=== PATIENT | female | born 1950 | race Caucasian/White ===

== ENCOUNTER 2020-06-15 13:41 | Inpatient (IN) | payer MEDICARE, MEDICAID, SELFPAY ==
[2020-06-15] VITALS (15 sets, daily range): BP systolic 145–185; BP diastolic 43–111; PULSE 75–114; RESP 12–22; TEMP 36.2–37.1; O2SAT 88–98; BMI 43.9
--- NOTE | 2020-06-15 13:54 | ECG_ITS ---
Test Reason : ALTERED MENTAL Blood Pressure : / mmHG Vent. Rate : 082 BPM Atrial Rate : 082 BPM P-R Int : 186 ms QRS Dur : 100 ms QT Int : 408 ms P-R-T Axes : 025 -06 100 degrees QTc Int : 476 ms Sinus rhythm with Premature atrial complexes Left ventricular hypertrophy with repolarization abnormality Cannot rule out Septal infarct , age undetermined Abnormal ECG No significant changes when compared with the previous EKG of 06 sep 2019 Referred By: Eden Castro Electronically Signed By:STANLEY HUMPHREYS
--- NOTE | 2020-06-15 13:55 | XR_ITS ---
EXAMINATION: CT HEAD WITHOUT CONTRAST. CHEST X-RAY. CLINICAL INFORMATION: Weakness. COMPARISON: None TECHNIQUE: 5 mm thin axial and reformatted 2 mm thin sagittal and coronal images of brain were obtained [facility]. Chest one view. FINDINGS: BRAIN: There is no acute intra-axial, extra-axial bleed, masses or midline shift. No acute infarct in evolution seen. [place] to white matter difference maintained. The lateral ventricles are symmetrical in size and configuration without enlargement. There is mild prominence of cortical sulci. Bone windows reveal no calvarial abnormality. Bilateral paranasal sinuses and mastoid air cells are well-aerated. There is no scalp abnormality. There is metallic radiopaque foreign body seen along left anterior optic globe. Question artificial lens versus foreign body. CHEST X-RAY: The lungs are well-expanded and clear of acute pneumonic consolidation. However there is increased interstitial markings that no confluent infiltrate. Heart size and pulmonary vascularity are unremarkable. No gross bony abnormality seen. XR/XR chest 1V IMPRESSION: No acute intracranial process seen. No acute cardiopulmonary process.
--- NOTE | 2020-06-15 14:05 | ED_ITS ---
HPI - Weakness General Chief complaint: Weakness Stated complaint: AMS,LETHARGY,LAST KNOWN WELL LAST NIGHT Time Seen by Provider: 06/15/20 13:54 Source: EMS Mode of arrival: EMS Limitations: no limitations History of Present Illness HPI Narrative: 69-year-old female with a past medical history of diabetes, hypertension, chronic Molina and UTIs, asthma, COPD, obesity, osteoarthritis, congestive heart failure here with complaints of generalized weakness, lethargy, nausea, headache. Patient was only able to provide a limited history and most of the history was obtained by the EMS team. They tell me that the patient's [employer] called them this morning as she was generally weak, lethargic from baseline. She was last seen normal yesterday where she seemed more alert and was able to be transferred from her bed to her wheelchair. She has wheelchair- bound at baseline. MD Complaint: generalized weakness Onset (ago): day(s) Duration: constant Location: generalized Migration: none Severity: mild Relieving factors: none Exacerbating factors: none Related Data Home Medications Medication Instructions Recorded Confirmed albuterol sulfate [ProAir HFA] 1 - 2 puff PO Q4-6H PRN 06/15/20 06/15/20 aspirin 1 tab PO DAILY 06/15/20 06/15/20 docusate sodium 1 - 2 cap PO BID PRN 06/15/20 06/15/20 fluticasone propionate [Flovent 2 puff PO BID 06/15/20 06/15/20 Diskus] furosemide 1 tab PO BID 06/15/20 06/15/20 insulin glargine [Lantus Solostar 80 unit SUBCUT DAILY 06/15/20 06/15/20 U-100 Insulin] insulin lispro [Humalog KwikPen 0 unit SUBCUT TIDAC 06/15/20 06/15/20 Insulin] ipratropium-albuterol 1 vial INHALATION Q4-6H PRN 06/15/20 06/15/20 lisinopril 1 tab PO DAILY 06/15/20 06/15/20 loratadine 1 tab PO DAILY 06/15/20 06/15/20 metoprolol tartrate 1 tab PO BID 06/15/20 06/15/20 nystatin 1 appl TOPICAL BID PRN 06/15/20 06/15/20 simvastatin 1 tab PO BEDTIME 06/15/20 06/15/20 Allergies Allergy/AdvReac Type Severity Reaction Status Date / Time silver sulfadiazine Allergy Unknown UNK Unverified 03/26/20 16:27 [From TRINY] Review of Systems Review of Systems: limited as patient answers yes to every question Yes all other systems are reviewed and are negative Constitutional: Constitutional: Reports no additional constitutional complaints, Reports body ache(s), Denies chills, Denies fever(s), Reports headache(s) and Reports weakness Eyes: Eyes: Reports no additional eye complaints and Denies change in vision ENT: Reports system reviewed and no additional complaints, except as documented, Denies dizziness, Reports headache(s), Denies nasal congestion, Denies nasal discharge and Denies neck pain Cardiovascular: Cardiovascular: Reports no additional cardiovascular complaints, Denies chest pain, Denies leg edema and Reports dyspnea Respiratory: Respiratory: Reports no additional respiratory complaints, Reports cough and Reports dyspnea Gastrointestinal: Gastrointestinal: Reports no additional gastrointestinal complaints, Denies abdominal pain, Denies diarrhea, Denies nausea and Denies vomiting Genitourinary: Genitourinary: Reports no additional female genitourinary complaints and Denies urinary incontinence Musculoskeletal: Musculoskeletal: Reports no additional musculoskeletal complaints, Denies back pain, Denies arthralgias, Denies joint swelling, Denies neck pain, Denies numbness and Denies tingling Integumentary/Breasts: Skin/Breast: Reports system reviewed and no additional complaints, except as docu and Denies rash Neurologic: Reports system reviewed and no additional complaints, except as documented, Denies Abnormal speech present, Denies dizziness, Reports headache(s), Denies numbness, Denies tingling and Reports weakness [facility] Past Medical History Attestation statement: The following information was validated with the patient. Source: old records reviewed and nursing notes reviewed Medical History (Updated 06/15/20 @ 17:08 by Angelita Jacobson NP) Chronic indwelling Molina catheter Chronic UTI Congestive heart failure COPD (chronic obstructive pulmonary disease) Diabetes Glaucoma Hypertension Obesity Osteoarthritis Severe sepsis Surgical History (Updated 06/15/20 @ 17:08 by Angelita Jacobson NP) H/O adenoidectomy H/O enucleation of left eyeball History of tonsillectomy Social History Social History Alcohol intake: unknown Smoking Status: Unknown if ever smoked Use of substances other than those prescribed or required for medical reasons: Refusing to respond Advance Directives: No Advance Directives Information Provided: Yes Physical Exam Vital Signs: Vital Signs: Last Vital Signs Temp 98.8 F 06/15/20 14:05 Pulse 83 06/15/20 18:05 Resp 16 06/15/20 18:05 BP 175/43 H 06/15/20 18:05 Pulse Ox 98 06/15/20 18:05 Body Mass Index 43.9 Const: Other: Anxious, uncooperative, ripping off medical equipment and oxygen. Orientation/consciousness: oriented to person Limitations: altered mental status HENMT: Head: Yes normal to inspection Ears: hearing grossly normal bilaterally General nose exam: Normal external nose present Face and sinus: Yes normal facial exam Mouth: Normal oral and palatal mucosa present Throat: Yes posterior oropharynx normal Eyes: General: appearance normal, both eyes and all related structures Pupils: Equal, round and reactive pupils present Neck: Neck: Yes normal visual inspection Chest: Chest palpation & inspection: normal inspection of the chest Resp: Other: Mild expiratory wheezing noted Effort & Inspection: normal respiratory effort Cardio: Rate: regular rate Rhythm: regular rhythm Peripheral pulses: Peripheral pulses 2+ throughout GI: Inspection: Yes normal to inspection Palpation (GI): Soft to palpation and nontender Auscultation: normal bowel sounds Back/Spine/Pelvis: Thoracic/Lumbar Spine: thoracic and lumbar spine normal to inspection Skin: General skin exam: no rashes or lesions noted Neuro: Other: patient crying, agitated, anxious, screaming at the top of her lungs, removing all medical equipment General: oriented to person, no focal motor deficits and normal sensation to monofilament Cranial nerves: Yes Equal, round and reactive pupils present Cognition (Neuro): normal cognition Speech: No Abnormal speech present Gait exam (Neuro): Normal gait present Motor exam (neuro): 5/5 motor strength present throughout Extrem: General: Yes normal to inspection Course Course Course Narrative: 69-year-old female who is wheelchair-bound coming from home with altered mental status, generalized weakness, lethargy, complains of nausea and headache. On arrival the patient is alert although is anxious and agitated and crying. She is oriented to self only. She is able to follow some simple commands and has equal strength noted bilaterally. I do not appreciate any focal weakness. She is hypoxic 88% on room air and has some expiratory wheezing and fine crackles. She will need labs including blood cultures and lactic acid, EKG, chest x-ray, UA, COVID testing, CT head. 1420-Unfortunately the patient was removing her IV and her oxygen and all medical equipment. She is unable to be redirected after multiple times by nursing. confused and not willing for nursing to get labs and additional testing. Patient was given Haldol IM. Plan for CT head, ABG. 1457- UA shows a UTI. At this time infection is suspected. Antibiotics ordered 1530- patient was transported to CT by nursing with cardiac/oxygen monitoring and received 50 mcg of ketamine for sedation as she has been not redirectable very agitated and uncooperative. 1605- CT head negative. Chest x-ray unremarkable. ABG shows no significant hypercarbia. Altered mental status likely secondary to encephalopathy from UTI or hypoxia from COPD exacerbation. Labs show a UTI with leukocytosis and elevated lactic acid 2.8. Antibiotics have already been given. hypoxia likely from COPD exacerbation, less likely from pneumonia with negative chest x-ray, less likely from COVID-19 infection with negative swab. Patient will need admission for UTI, hypoxia, metabolic encelopathy. 1620- discussed with Angelita CLAYTON who accepted admission. MDM - Weakness MDM Narrative Medical decision making narrative: ICH versus lesion, encephalopathy secondary to underlying infection, UTI, pneumonia, COVID-19, viral syndrome, anemia, electrolyte abnormality, CHF exacerbation, ACS Medical Records Attestation: I reviewed the patient's medical records. Lab Data Attestation: I reviewed the patient's lab results. Result diagrams: 06/15/20 14:39 06/15/20 14:18 Labs: Lab Results 06/15/20 06/15/20 06/15/20 Range/Units 14:18 14:18 14:18 WBC (4.8-10.8) X10*3/uL RBC (4.20-5.50) X10*6/uL Hgb (12.0-16.0) g/dl Hct (37-47) % MCV (80-98) fL MCH (27.0-33.0) pg MCHC (31.0-35.0) g/dl RDW (11.0-16.0) % Plt Count (160-400) X10*3/uL MPV (9.4-12.3) fL Immature Gran % (Auto) (0.0-0.4) % Neut % (Auto) (45-73) % Lymph % (Auto) (20-40) % [place] % (Auto) (2-11) % Eos % (Auto) (0-4) % Baso % (Auto) (0-2) % Lymph # (Auto) (1.2-4.9) X10*3/uL [place] # (Auto) (0.1-1.2) X10*3/uL Eos # (Auto) (0.0-0.4) X10*3/uL Baso # (Auto) (0.0-0.2) X10*3/uL Abs Immat Gran (auto) (0.00-0.03) X10*3/uL Absolute Neuts (auto) (2.0-8.3) X10*3/uL Absolute Nucleated RBC (0.0-0.012) X10*3/uL Nucleated RBC % (auto) (0.0-0.2) /100WBC PT Cancelled INR Cancelled ABG pH (7.35-7.45) ABG pCO2 (32-45) mmhg ABG pO2 (83-108) mmhg ABG HCO3 (22-26) mmol/l ABG O2 Saturation % ABG Base Excess Oxygen Given Sodium 136 (135-145) mmol/L Potassium 3.8 (3.3-5.1) mmol/l Chloride 91 L (96-108) mmol/L Carbon Dioxide 34 H (22-29) mmol/L Anion Gap 15 (12-20) BUN 11 (9-16) mg/dL Creatinine 0.60 (0.5-1.4) mg/dL Estim Creat Clear Calc 104.3 Estimated GFR > 60 Random Glucose 206 H (60-115) mg/dL Lactic Acid (0.5-2.0) mmol/L Calcium 9.3 (8.4-10.2) mg/dL Magnesium 1.5 L (1.6-2.6) mg/dL Ferritin 165 (10-250) ng/mL Total Bilirubin 0.6 (0.0-1.0) mg/dL Direct Bilirubin 0.3 (0.0-0.5) mg/dL AST 13 (5-31) U/L ALT 26 (0-31) U/L Alkaline Phosphatase 105 (39-117) U/L Lactate Dehydrogenase 150 (122-220) U/L Troponin I High Sens (<3.5-17.0) ng/L B-Natriuretic Peptide (<100) pg/mL Total Protein 7.1 (6.5-8.0) g/dL Albumin 4.1 (3.5-5.0) g/dL Procalcitonin ng/mL Urine Color Urine Appearance Urine pH (5.0-8.0) Ur Specific [place] (1.005-1.025) Urine Protein (NEG-TRACE) MG/DL Urine Glucose (UA) (NEG) MG/DL Urine Ketones (NEG) MG/DL Urine Blood (NEG) Urine Nitrite (NEG) Ur Leukocyte Esterase (NEG) Urine RBC (0) /HPF Urine WBC (0-4) /HPF Ur Squamous Epith Cells /LPF Urine Bacteria /LPF Coronavirus (PCR) (Negative) Influenza Type A (PCR) (Negative) Influenza Type B (PCR) (Negative) RSV RNA Qual (PCR) (Negative) 06/15/20 06/15/20 06/15/20 Range/Units 14:18 14:18 14:39 WBC 13.0 H (4.8-10.8) X10*3/uL RBC 5.45 (4.20-5.50) X10*6/uL Hgb 16.1 H (12.0-16.0) g/dl Hct 49.4 H (37-47) % MCV 90.6 (80-98) fL MCH 29.5 (27.0-33.0) pg MCHC 32.6 (31.0-35.0) g/dl RDW 13.9 (11.0-16.0) % Plt Count 221 (160-400) X10*3/uL MPV 11.3 (9.4-12.3) fL Immature Gran % (Auto) 0.4 (0.0-0.4) % Neut % (Auto) 78.4 H (45-73) % Lymph % (Auto) 15.1 L (20-40) % [place] % (Auto) 5.3 (2-11) % Eos % (Auto) 0.6 (0-4) % Baso % (Auto) 0.2 (0-2) % Lymph # (Auto) 2.0 (1.2-4.9) X10*3/uL [place] # (Auto) 0.7 (0.1-1.2) X10*3/uL Eos # (Auto) 0.1 (0.0-0.4) X10*3/uL Baso # (Auto) 0.0 (0.0-0.2) X10*3/uL Abs Immat Gran (auto) 0.05 H (0.00-0.03) X10*3/uL Absolute Neuts (auto) 10.2 H (2.0-8.3) X10*3/uL Absolute Nucleated RBC 0.000 (0.0-0.012) X10*3/uL Nucleated RBC % (auto) 0.0 (0.0-0.2) /100WBC PT INR ABG pH (7.35-7.45) ABG pCO2 (32-45) mmhg ABG pO2 (83-108) mmhg ABG HCO3 (22-26) mmol/l ABG O2 Saturation % ABG Base Excess Oxygen Given Sodium (135-145) mmol/L Potassium (3.3-5.1) mmol/l Chloride (96-108) mmol/L Carbon Dioxide (22-29) mmol/L Anion Gap (12-20) BUN (9-16) mg/dL Creatinine (0.5-1.4) mg/dL Estim Creat Clear Calc Estimated GFR Random Glucose (60-115) mg/dL Lactic Acid (0.5-2.0) mmol/L Calcium (8.4-10.2) mg/dL Magnesium (1.6-2.6) mg/dL Ferritin (10-250) ng/mL Total Bilirubin (0.0-1.0) mg/dL Direct Bilirubin (0.0-0.5) mg/dL AST (5-31) U/L ALT (0-31) U/L Alkaline Phosphatase (39-117) U/L Lactate Dehydrogenase (122-220) U/L Troponin I High Sens (<3.5-17.0) ng/L B-Natriuretic Peptide (<100) pg/mL Total Protein (6.5-8.0) g/dL Albumin (3.5-5.0) g/dL Procalcitonin < 0.02 ng/mL Urine Color YELLOW Urine Appearance CLOUDY Urine pH 7.0 (5.0-8.0) Ur Specific [place] 1.020 (1.005-1.025) Urine Protein 1+ H (NEG-TRACE) MG/DL Urine Glucose (UA) NEG (NEG) MG/DL Urine Ketones NEG (NEG) MG/DL Urine Blood 3+ H (NEG) Urine Nitrite POS H (NEG) Ur Leukocyte Esterase 3+ H (NEG) Urine RBC 5-9 H (0) /HPF Urine WBC 50-75 H (0-4) /HPF Ur Squamous Epith Cells 2+ /LPF Urine Bacteria 4+ /LPF Coronavirus (PCR) (Negative) Influenza Type A (PCR) (Negative) Influenza Type B (PCR) (Negative) RSV RNA Qual (PCR) (Negative) 06/15/20 06/15/20 06/15/20 Range/Units 14:39 14:39 14:39 WBC (4.8-10.8) X10*3/uL RBC (4.20-5.50) X10*6/uL Hgb (12.0-16.0) g/dl Hct (37-47) % MCV (80-98) fL MCH (27.0-33.0) pg MCHC (31.0-35.0) g/dl RDW (11.0-16.0) % Plt Count (160-400) X10*3/uL MPV (9.4-12.3) fL Immature Gran % (Auto) (0.0-0.4) % Neut % (Auto) (45-73) % Lymph % (Auto) (20-40) % [place] % (Auto) (2-11) % Eos % (Auto) (0-4) % Baso % (Auto) (0-2) % Lymph # (Auto) (1.2-4.9) X10*3/uL [place] # (Auto) (0.1-1.2) X10*3/uL Eos # (Auto) (0.0-0.4) X10*3/uL Baso # (Auto) (0.0-0.2) X10*3/uL Abs Immat Gran (auto) (0.00-0.03) X10*3/uL Absolute Neuts (auto) (2.0-8.3) X10*3/uL Absolute Nucleated RBC (0.0-0.012) X10*3/uL Nucleated RBC % (auto) (0.0-0.2) /100WBC PT INR ABG pH (7.35-7.45) ABG pCO2 (32-45) mmhg ABG pO2 (83-108) mmhg ABG HCO3 (22-26) mmol/l ABG O2 Saturation % ABG Base Excess Oxygen Given Sodium (135-145) mmol/L Potassium (3.3-5.1) mmol/l Chloride (96-108) mmol/L Carbon Dioxide (22-29) mmol/L Anion Gap (12-20) BUN (9-16) mg/dL Creatinine (0.5-1.4) mg/dL Estim Creat Clear Calc Estimated GFR Random Glucose (60-115) mg/dL Lactic Acid 2.5 H* (0.5-2.0) mmol/L Calcium (8.4-10.2) mg/dL Magnesium (1.6-2.6) mg/dL Ferritin (10-250) ng/mL Total Bilirubin (0.0-1.0) mg/dL Direct Bilirubin (0.0-0.5) mg/dL AST (5-31) U/L ALT (0-31) U/L Alkaline Phosphatase (39-117) U/L Lactate Dehydrogenase (122-220) U/L Troponin I High Sens 35.8 H (<3.5-17.0) ng/L B-Natriuretic Peptide 100 (<100) pg/mL Total Protein (6.5-8.0) g/dL Albumin (3.5-5.0) g/dL Procalcitonin ng/mL Urine Color Urine Appearance Urine pH (5.0-8.0) Ur Specific [place] (1.005-1.025) Urine Protein (NEG-TRACE) MG/DL Urine Glucose (UA) (NEG) MG/DL Urine Ketones (NEG) MG/DL Urine Blood (NEG) Urine Nitrite (NEG) Ur Leukocyte Esterase (NEG) Urine RBC (0) /HPF Urine WBC (0-4) /HPF Ur Squamous Epith Cells /LPF Urine Bacteria /LPF Coronavirus (PCR) (Negative) Influenza Type A (PCR) (Negative) Influenza Type B (PCR) (Negative) RSV RNA Qual (PCR) (Negative) 06/15/20 06/15/20 06/15/20 Range/Units 14:45 15:37 18:03 WBC (4.8-10.8) X10*3/uL RBC (4.20-5.50) X10*6/uL Hgb (12.0-16.0) g/dl Hct (37-47) % MCV (80-98) fL MCH (27.0-33.0) pg MCHC (31.0-35.0) g/dl RDW (11.0-16.0) % Plt Count (160-400) X10*3/uL MPV (9.4-12.3) fL Immature Gran % (Auto) (0.0-0.4) % Neut % (Auto) (45-73) % Lymph % (Auto) (20-40) % [place] % (Auto) (2-11) % Eos % (Auto) (0-4) % Baso % (Auto) (0-2) % Lymph # (Auto) (1.2-4.9) X10*3/uL [place] # (Auto) (0.1-1.2) X10*3/uL Eos # (Auto) (0.0-0.4) X10*3/uL Baso # (Auto) (0.0-0.2) X10*3/uL Abs Immat Gran (auto) (0.00-0.03) X10*3/uL Absolute Neuts (auto) (2.0-8.3) X10*3/uL Absolute Nucleated RBC (0.0-0.012) X10*3/uL Nucleated RBC % (auto) (0.0-0.2) /100WBC PT 14.7 H INR 1.2 H ABG pH 7.40 (7.35-7.45) ABG pCO2 54 H (32-45) mmhg ABG pO2 57 L (83-108) mmhg ABG HCO3 32 H (22-26) mmol/l ABG O2 Saturation 901.0 % ABG Base Excess 5.8 Oxygen Given ROOM AIR Sodium (135-145) mmol/L Potassium (3.3-5.1) mmol/l Chloride (96-108) mmol/L Carbon Dioxide (22-29) mmol/L Anion Gap (12-20) BUN (9-16) mg/dL Creatinine (0.5-1.4) mg/dL Estim Creat Clear Calc Estimated GFR Random Glucose (60-115) mg/dL Lactic Acid (0.5-2.0) mmol/L Calcium (8.4-10.2) mg/dL Magnesium (1.6-2.6) mg/dL Ferritin (10-250) ng/mL Total Bilirubin (0.0-1.0) mg/dL Direct Bilirubin (0.0-0.5) mg/dL AST (5-31) U/L ALT (0-31) U/L Alkaline Phosphatase (39-117) U/L Lactate Dehydrogenase (122-220) U/L Troponin I High Sens (<3.5-17.0) ng/L B-Natriuretic Peptide (<100) pg/mL Total Protein (6.5-8.0) g/dL Albumin (3.5-5.0) g/dL Procalcitonin ng/mL Urine Color Urine Appearance Urine pH (5.0-8.0) Ur Specific [place] (1.005-1.025) Urine Protein (NEG-TRACE) MG/DL Urine Glucose (UA) (NEG) MG/DL Urine Ketones (NEG) MG/DL Urine Blood (NEG) Urine Nitrite (NEG) Ur Leukocyte Esterase (NEG) Urine RBC (0) /HPF Urine WBC (0-4) /HPF Ur Squamous Epith Cells /LPF Urine Bacteria /LPF Coronavirus (PCR) NEGATIVE (Negative) Influenza Type A (PCR) NEGATIVE (Negative) Influenza Type B (PCR) NEGATIVE (Negative) RSV RNA Qual (PCR) NEGATIVE (Negative) Imaging Data Chest x-ray: Attestation: I personally reviewed and interpreted this imaging study as follows: Radiologist's impression: CHEST X-RAY: The lungs are well-expanded and clear of acute pneumonic consolidation. However there is increased interstitial markings that no confluent infiltrate. Heart size and pulmonary vascularity are unremarkable. No gross bony abnormality seen. No acute cardiopulmonary process. CT scan - head: Attestation: I personally reviewed and interpreted this imaging study as follows: Radiologist's impression: FINDINGS: BRAIN: There is no acute intra-axial, extra-axial bleed, masses or midline shift. No acute infarct in evolution seen. [place] to white matter difference maintained. The lateral ventricles are symmetrical in size and configuration without enlargement. There is mild prominence of cortical sulci. Bone windows reveal no calvarial abnormality. Bilateral paranasal sinuses and mastoid air cells are well-aerated. There is no scalp abnormality. There is metallic radiopaque foreign body seen along left anterior optic globe. Question artificial lens versus foreign body. No acute intracranial process seen. ECG Data Attestation: I personally reviewed and interpreted this ECG as follows: ECG interpretation date: 06/15/20 ECG interpretation time: 15:51 Interpretation: sinus rhythm with PACs, rate 82, normal IN, normal QRS, normal QT, normal st segment Critical Care Time Critical Care Time Critical Care Time: Yes Total Critical Care Time: 30 Attestation: Patient required sedation for imaging, multiple re-evaluations for mental status, Fluid management, antibiotic management Discharge Plan Discharge Clinical Impression: UTI (urinary tract infection), Leukocytosis, Hypomagnesemia, Elevated troponin, Hyperglycemia, AMS (altered mental status), Elevated lactic acid level Patient Disposition: Admitted As Inpatient
--- NOTE | 2020-06-15 14:19 | CT_ITS ---
EXAMINATION: CT HEAD WITHOUT CONTRAST. CHEST X-RAY. CLINICAL INFORMATION: Weakness. COMPARISON: None TECHNIQUE: 5 mm thin axial and reformatted 2 mm thin sagittal and coronal images of brain were obtained [facility] 854. Chest one view. FINDINGS: BRAIN: There is no acute intra-axial, extra-axial bleed, masses or midline shift. No acute infarct in evolution seen. [place] to white matter difference maintained. The lateral ventricles are symmetrical in size and configuration without enlargement. There is mild prominence of cortical sulci. Bone windows reveal no calvarial abnormality. Bilateral paranasal sinuses and mastoid air cells are well-aerated. There is no scalp abnormality. There is metallic radiopaque foreign body seen along left anterior optic globe. Question artificial lens versus foreign body. CHEST X-RAY: The lungs are well-expanded and clear of acute pneumonic consolidation. However there is increased interstitial markings that no confluent infiltrate. Heart size and pulmonary vascularity are unremarkable. No gross bony abnormality seen. CT/CT head/brain wo con IMPRESSION: No acute intracranial process seen. No acute cardiopulmonary process.
[2020-06-15] MEDS: Haloperidol Lactate 5 MG/ML VIAL IM (14:30)
[2020-06-15 14:31] LABS: Glucose Urine UA NEG (NEG); Leukocyte Esterase Urine 3+ (NEG); Nitrite Urine POS (NEG); Urine Blood 3+ (NEG); Urine Ketones NEG (NEG); Urine Protein 1+ MG/DL (NEG-TRACE)
[2020-06-15 14:32] LABS: Appearance Urine CLOUDY; Color Urine YELLOW
[2020-06-15 14:40] LABS: Bacteria Urine 4+ /LPF; Squamous Epithelial Cell Urine 2+ /LPF; WBC Urine 50-75 /HPF (0-4)
[2020-06-15 14:47] LABS: MANUAL DIFF FLAG NO
[2020-06-15 14:49] LABS: Basophils Percent Auto 0.2 % (0-2); Eosinophils Absolute Auto 0.1 X10*3/uL (0.0-0.4); Eosinophils Percent Auto 0.6 % (0-4); Hematocrit 49.4 % (37-47); Hemoglobin 16.1 g/dl (12.0-16.0); Imm Gran Abs Auto 0.05 X10*3/uL (0.00-0.03); Imm Gran Pct Auto 0.4 % (0.0-0.4); Lymphocytes Percent Auto 15.1 % (20-40); Mean Corpuscular HGB Conc 32.6 g/dl (31.0-35.0); Mean Corpuscular Hemoglobin 29.5 pg (27.0-33.0); Mean Corpuscular Volume 90.6 fL (80-98); Mean Platelet Volume 11.3 fL (9.4-12.3); Monocytes Absolute Auto 0.7 X10*3/uL (0.1-1.2); Monocytes Percent Auto 5.3 % (2-11); Neutrophils Absolute Auto 10.2 X10*3/uL (2.0-8.3); Neutrophils Percent Auto 78.4 % (45-73); Platelet Count 221 X10*3/uL (160-400); Red Blood Count 5.45 X10*6/uL (4.20-5.50); Red Cell Distribution Width 13.9 % (11.0-16.0)
[2020-06-15 15:02] LABS: Lactate Dehydrogenase 150 U/L (122-220)
[2020-06-15 15:05] LABS: Alanine Aminotransferase 26 U/L (0-31); Albumin Level 4.1 g/dL (3.5-5.0); Alkaline Phosphatase 105 U/L (39-117); Anion Gap 15 (12-20); Aspartate Amino Transferase 13 U/L (5-31); Bilirubin Direct 0.3 mg/dL (0.0-0.5); Bilirubin Total 0.6 mg/dL (0.0-1.0); Blood Urea Nitrogen 11 mg/dL (9-16); Calcium 9.3 mg/dL (8.4-10.2); Carbon Dioxide 34 mmol/L (22-29); Chloride 91 mmol/L (96-108); Creatinine Clr Calc Pharmacy 104.3; Estimated Glomerular Filt Rate > 60; Glucose Random 206 mg/dL (60-115); Magnesium 1.5 mg/dL (1.6-2.6); Potassium 3.8 mmol/l (3.3-5.1); Sodium 136 mmol/L (135-145); Total Protein 7.1 g/dL (6.5-8.0)
[2020-06-15] MEDS: cefTRIAXone sodium 1 GM in 0.9 % Sodium Chloride 50 ML IV (15:10)
[2020-06-15 15:22] LABS: Procalcitonin < 0.02 ng/mL
[2020-06-15 15:23] LABS: B Type Natriuretic Peptide 100 pg/mL (<100)
[2020-06-15 15:25] LABS: Ferritin 165 ng/mL (10-250)
[2020-06-15 15:27] LABS: Influenza A PCR NEGATIVE (Negative); Influenza B PCR NEGATIVE (Negative); Resp Syncy Virus RNA Qual PCR NEGATIVE (Negative); SARS COV2 PCR INHOUSE NEGATIVE (Negative)
[2020-06-15 15:28] LABS: Troponin-I High Sensitivity 35.8 ng/L (<3.5-17.0)
[2020-06-15 15:47] LABS: Pt Ventilation O2% ROOM AIR
[2020-06-15] MEDS: Ketamine HCl/NS 50 MG/5 ML SYRINGE IVPUSH (15:49)
[2020-06-15 15:50] LABS: ABG PCO2 54 mmhg (32-45); Base Excess ABG 5.8; HCO3 ABG 32 mmol/l (22-26); PO2 ABG 57 mmhg (83-108)
[2020-06-15 15:51] LABS: Blood Gas Serial # 5414
[2020-06-15] MEDS: Magnesium Sulfate/D5W 1 GM/100 ML PIGGYBACK IV (15:53)
--- NOTE | 2020-06-15 15:58 | PC.NURSE ---
Pt confused, pulling at 02 prompting sats to drop into the 80, and yelling Oh my god . She would not allow staff to obtain necessary blood work and vitals. ISRA Harmon made aware and wrote for chemical restraint (see documentation). Currently pt resting comfortably after successful CT scan, xray, and ekg. Will continue to monitor.
[2020-06-15 16:21] LABS: Lactic Acid 2.5 mmol/L (0.5-2.0)
[2020-06-15] MEDS: methylPREDNISolone Sod Succ/PF 125 MG/2 ML VIAL IVPUSH (16:35)
--- NOTE | 2020-06-15 16:56 | P.HPHOSP_ITS ---
History of Present Illness Date of Service: 06/15/20 <Angelita Jacobson NP - Last Filed: 06/15/20 17:24> Chief Complaint: Lethargy <Angelita Jacobson NP - Last Filed: 06/15/20 17:24> 69-year-old female with a past medical history of diabetes, hypertension, chronic Molina and UTIs, asthma, COPD, obesity, osteoarthritis, congestive heart failure presenting with generalized weakness, lethargy, nausea, headache. 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 She was lethargic during the interview due to being given ketamine and Haldol due to severe agitation including removal of her IV and oxygen apparently she was crying and seemed very anxious. She had no acute infarction or ischemia. Chest x-ray negative for consolidation or effusion. She was initially noted to be hypoxic with oxygen saturation of 88%. She was placed on 2 L of nasal cannula with good effect. She did have an elevated white blood cell count of 13.0, troponin 35.8 with no acute ischemic changes on EKG. Urinalysis was positive for infection, coronavirus PCR negative. She was given a dose of Rocephin in the ER. She will be admitted further management and treatment of severe sepsis secondary to urinary tract infection and acute metabolic encephalopathy. <Angelita Jacobson NP - Last Filed: 06/15/20 17:24> Review of Systems Review of Systems: Yes Unobtainable due to mental status <Angelita Jacobson NP - Last Filed: 06/15/20 17:24> Constitutional: Constitutional: Reports headache(s) and Reports weakness <Angelita Jacobson NP - Last Filed: 06/15/20 17:24> ENT: Denies dizziness and Reports headache(s) <Angelita Jacobson NP - Last Filed: 06/15/20 17:24> Musculoskeletal: Musculoskeletal: Denies numbness and Denies tingling <Angelita Jacboson NP - Last Filed: 06/15/20 17:24> Neurologic: Reports system reviewed and no additional complaints, except as documented, Denies Abnormal speech present, Denies dizziness, Reports headache(s), Denies numbness, Denies tingling and Reports weakness <ISRA Asif Last Filed: 06/15/20 17:24> [facility] Medical History: Medical History Chronic indwelling Molina catheter Chronic UTI Congestive heart failure COPD (chronic obstructive pulmonary disease) Diabetes Glaucoma Hypertension Obesity Osteoarthritis Severe sepsis <Angelita Jacobson NP - Last Filed: 06/15/20 17:24> Surgical History: Surgical History H/O adenoidectomy H/O enucleation of left eyeball History of tonsillectomy <Angelita Jacobson NP - Last Filed: 06/15/20 17:24> Social History: Social History Household Members: Family Housing: House Alcohol intake: never Smoking Status: Never smoker Second Hand Smoke Exposure: No Use of substances other than those prescribed or required for medical reasons: No Advance Directives: No Advance Directives Information Provided: Yes service: No Current occupational status: disabled <Angelita Jacobson NP - Last Filed: 06/15/20 17:24> Meds Allergies/Adverse reactions: Allergies Allergy/AdvReac Type Severity Reaction Status Date / Time silver sulfadiazine Allergy Unknown UNK Verified 06/29/20 00:20 [From TRINY] <Angelita Jacobson NP - Last Filed: 06/15/20 17:24> Home medications: Home Medications Medication Instructions Recorded Confirmed Type Flovent Diskus 2 puff PO BID 06/15/20 06/29/20 History Lantus Solostar U-100 Insulin 80 unit SUBCUT DAILY 06/15/20 06/29/20 History albuterol sulfate [ProAir HFA] 1 - 2 puff PO Q4-6H PRN 06/15/20 06/29/20 History aspirin 1 tab PO DAILY 06/15/20 06/29/20 History docusate sodium 1 - 2 cap PO BID PRN 06/15/20 06/29/20 History furosemide 1 tab PO BID 06/15/20 06/29/20 History insulin lispro [Humalog KwikPen 0 unit SUBCUT TIDAC 06/15/20 06/29/20 History Insulin] ipratropium-albuterol 1 vial INHALATION Q4-6H PRN 06/15/20 06/29/20 History lisinopril 1 tab PO DAILY 06/15/20 06/29/20 History loratadine 1 tab PO DAILY 06/15/20 06/29/20 History nystatin 1 appl TOPICAL BID PRN 06/15/20 06/29/20 History simvastatin [Zocor] 1 tab PO BEDTIME 06/15/20 06/29/20 History <Angelita Jacobson NP - Last Filed: 06/15/20 17:24> Physical Exam Vital Signs and Narrative: Vital Signs: Last Vital Signs Temp 98.8 F 06/15/20 14:05 Pulse 75 06/15/20 16:45 Resp 20 06/15/20 16:45 BP 168/64 H 06/15/20 16:45 Pulse Ox 97 06/15/20 16:45 Body Mass Index 43.9 <Angelita Jacobson NP - Last Filed: 06/15/20 17:24> Lethargic head is normocephalic atraumatic eyes pupils are PERRLA sclera is anicteric mouth throat mucous membranes are intact and dry neck is supple no lymphadenopathy, no JVD noted lung sounds are diminished heart regular rate rhythm, clear S1, S2 positive bowel sounds, abdomen is soft, obese neuro patient lethargic, post ketamine for imaging. <Angelita Jacobson NP - Last Filed: 06/15/20 17:24> Neuro: Speech: No Abnormal speech present <Angelita Jacobson NP - Last Fi led: 06/15/20 17:24> Results Labs CBC and Chem 7: : 06/16/20 05:41 06/18/20 10:51 <Angelita Jacobson NP - Last Filed: 06/15/20 17:24> Labs: Laboratory Results - last 24 hr 06/15/20 06/15/20 06/15/20 14:18 14:18 14:18 MCV MCH MCHC RDW Plt Count MPV Immature Gran % (Auto) Neut % (Auto) Lymph % (Auto) Stewart % (Auto) Eos % (Auto) Baso % (Auto) Lymph # (Auto) Stewart # (Auto) Eos # (Auto) Baso # (Auto) Abs Immat Gran (auto) Absolute Neuts (auto) Absolute Nucleated RBC Nucleated RBC % (auto) PT Cancelled INR Cancelled ABG pH ABG pCO2 ABG pO2 ABG HCO3 ABG O2 Saturation ABG Base Excess Oxygen Given Anion Gap 15 Estim Creat Clear Calc 104.3 Estimated GFR > 60 Random Glucose 206 H Lactic Acid Calcium 9.3 Magnesium 1.5 L Ferritin 165 Total Bilirubin 0.6 Direct Bilirubin 0.3 AST 13 ALT 26 Alkaline Phosphatase 105 Lactate Dehydrogenase 150 Troponin I High Sens B-Natriuretic Peptide Total Protein 7.1 Albumin 4.1 Procalcitonin Urine Color Urine Appearance Urine pH Ur Specific Grant Urine Protein Urine Glucose (UA) Urine Ketones Urine Blood Urine Nitrite Ur Leukocyte Esterase Urine RBC Urine WBC Ur Squamous Epith Cells Urine Bacteria Coronavirus (PCR) Influenza Type A (PCR) Influenza Type B (PCR) RSV RNA Qual (PCR) 06/15/20 06/15/20 06/15/20 14:18 14:18 14:39 MCV 90.6 MCH 29.5 MCHC 32.6 RDW 13.9 Plt Count 221 MPV 11.3 Immature Gran % (Auto) 0.4 Neut % (Auto) 78.4 H Lymph % (Auto) 15.1 L Stewart % (Auto) 5.3 Eos % (Auto) 0.6 Baso % (Auto) 0.2 Lymph # (Auto) 2.0 Stewart # (Auto) 0.7 Eos # (Auto) 0.1 Baso # (Auto) 0.0 Abs Immat Gran (auto) 0.05 H Absolute Neuts (auto) 10.2 H Absolute Nucleated RBC 0.000 Nucleated RBC % (auto) 0.0 PT INR ABG pH ABG pCO2 ABG pO2 ABG HCO3 ABG O2 Saturation ABG Base Excess Oxygen Given Anion Gap Estim Creat Clear Calc Estimated GFR Random Glucose Lactic Acid Calcium Magnesium Ferritin Total Bilirubin Direct Bilirubin AST ALT Alkaline Phosphatase Lactate Dehydrogenase Troponin I High Sens B-Natriuretic Peptide Total Protein Albumin Procalcitonin < 0.02 Urine Color YELLOW Urine Appearance CLOUDY Urine pH 7.0 Ur Specific Grant 1.020 Urine Protein 1+ H Urine Glucose (UA) NEG Urine Ketones NEG Urine Blood 3+ H Urine Nitrite POS H Ur Leukocyte Esterase 3+ H Urine RBC 5-9 H Urine WBC 50-75 H Ur Squamous Epith Cells 2+ Urine Bacteria 4+ Coronavirus (PCR) Influenza Type A (PCR) Influenza Type B (PCR) RSV RNA Qual (PCR) 06/15/20 06/15/20 06/15/20 14:39 14:39 14:39 MCV MCH MCHC RDW Plt Count MPV Immature Gran % (Auto) Neut % (Auto) Lymph % (Auto) Stewart % (Auto) Eos % (Auto) Baso % (Auto) Lymph # (Auto) Stewart # (Auto) Eos # (Auto) Baso # (Auto) Abs Immat Gran (auto) Absolute Neuts (auto) Absolute Nucleated RBC Nucleated RBC % (auto) PT INR ABG pH ABG pCO2 ABG pO2 ABG HCO3 ABG O2 Saturation ABG Base Excess Oxygen Given Anion Gap Estim Creat Clear Calc Estimated GFR Random Glucose Lactic Acid 2.5 H* Calcium Magnesium Ferritin Total Bilirubin Direct Bilirubin AST ALT Alkaline Phosphatase Lactate Dehydrogenase Troponin I High Sens 35.8 H B-Natriuretic Peptide 100 Total Protein Albumin Procalcitonin Urine Color Urine Appearance Urine pH Ur Specific Grant Urine Protein Urine Glucose (UA) Urine Ketones Urine Blood Urine Nitrite Ur Leukocyte Esterase Urine RBC Urine WBC Ur Squamous Epith Cells Urine Bacteria Coronavirus (PCR) Influenza Type A (PCR) Influenza Type B (PCR) RSV RNA Qual (PCR) 06/15/20 06/15/20 14:45 15:37 MCV MCH MCHC RDW Plt Count MPV Immature Gran % (Auto) Neut % (Auto) Lymph % (Auto) Stewart % (Auto) Eos % (Auto) Baso % (Auto) Lymph # (Auto) Stewart # (Auto) Eos # (Auto) Baso # (Auto) Abs Immat Gran (auto) Absolute Neuts (auto) Absolute Nucleated RBC Nucleated RBC % (auto) PT INR ABG pH 7.40 ABG pCO2 54 H ABG pO2 57 L ABG HCO3 32 H ABG O2 Saturation 901.0 ABG Base Excess 5.8 Oxygen Given ROOM AIR Anion Gap Estim Creat Clear Calc Estimated GFR Random Glucose Lactic Acid Calcium Magnesium Ferritin Total Bilirubin Direct Bilirubin AST ALT Alkaline Phosphatase Lactate Dehydrogenase Troponin I High Sens B-Natriuretic Peptide Total Protein Albumin Procalcitonin Urine Color Urine Appearance Urine pH Ur Specific Grant Urine Protein Urine Glucose (UA) Urine Ketones Urine Blood Urine Nitrite Ur Leukocyte Esterase Urine RBC Urine WBC Ur Squamous Epith Cells Urine Bacteria Coronavirus (PCR) NEGATIVE Influenza Type A (PCR) NEGATIVE Influenza Type B (PCR) NEGATIVE RSV RNA Qual (PCR) NEGATIVE <Angelita Jacobson, BREASTFEEDING PEER COUNSELOR - Last Filed: 06/15/20 17:24> Imaging Radiologist's Impressions: Impressions Chest X-Ray 06/15/20 13:55 IMPRESSION: No acute intracranial process seen. No acute cardiopulmonary process. Head CT 06/15/20 14:19 IMPRESSION: No acute intracranial process seen. No acute cardiopulmonary process. <Angelita Jacobson NP - Last Filed: 06/15/20 17:24> Assessment and Plan (1) Severe sepsis: Status: Resolved <Angelita Jacobson NP - Last Filed: 06/15/20 17:24> (2) UTI (urinary tract infection): Status: Acute <Angelita Jacobson NP - Last Filed: 06/15/20 17:24> (3) Acute encephalopathy: Problem details: She has Citrobacter infection urine Bacteremias multiple organsims,likely contamininant <Angelita Jacobson NP - Last Filed: 06/15/20 17:24> Status: Resolved <Angelita Jacobson NP - Last Filed: 06/15/20 17:24> 61-year-old woman admitted with acute encephalopathy secondary to u rinary tract infection with severe sepsis. Severe sepsis. Leukocytosis, tachypnea, lactic acidosis. Follow blood cultures. UTI. Rocephin, follow urine culture. Acute respiratory failure related to COPD exacerbation. DuoNeb, Solu-Medrol, continue supplemental oxygen as needed. Acute toxic metabolic encephalopathy. Related to urinary tract infection. Follow neuro status. Elevated troponin. No chest pain acute changes on EKG. Trend. Hypomagnesemia. Repleted. Follow Mag tommorrow. Diabetes mellitus. Sliding scale, ADA diet. Long-acting insulin. Hypertension. Stable blood pressure. Continue lisinopril, metoprolol. Hyperlipidemia. Continue aspirin and statin. DVT prophylaxis with Heparin. Discussed with Dr. Mcdaniels Full code. <Angelita Jacobson NP - Last Filed: 06/15/20 17:24>
[2020-06-15 18:08] LABS: Reflex Lactate? Lactic Acid Added
[2020-06-15 18:13] LABS: INTERNATIONAL NORM RATIO 1.2 (0.9-1.1); Prothrombin Time 14.7 SEC (10.8-13.0)
[2020-06-15 18:41] LABS: Troponin-I High Sensitivity 54.2 ng/L (<3.5-17.0)
--- NOTE | 2020-06-15 18:42 | PM.EVENT ---
Event Note Date of Service: 06/16/20 Event Note: patient seen examined with APC chart reviewed, this is a 69-year-old female patient with past medical history of diabetes, hypertension, chronic Molina with history of recurrent UTI, history of COPD morbid obesity congestive heart failure presented to [facility] due to generalized weakness lethargy nausea and headache patient resides at home with [employer] services [employer] called EMS due to above symptoms in the ER patient was noticed to be agitated , confused received Haldol and ketamine to undergo imaging studies, at present patient is unable to provide history since she is somnolent but moving all 4 extremities her initial workup revealed leukocytosis, lactic acidosis, mildly elevated troponin and a positive urinalysis patient is now being admitted to [facility] with a diagnosis of sepsis related to chronic indwelling Molina catheter causing UTI examination patient resting in bed somnolent, arousable lungs clear abdomen soft , bowel sounds audible assessment and plan sepsis related to UTI with chronic indwelling Molina catheter , will treat with IV antibiotics follow urine and blood culture. acute toxic encephalopathy due to above lactic acidosis related to sepsis acute respiratory failure related to COPD and infection patient takes Flovent, albuterol and DuoNeb inhalers at home hypo magnesemia will replace and repeat level morbid obesity diabetes patient on Lantus and Humalog sliding scale at home will place on diabetic diet follow point of care blood sugar closely hypertension patient take lisinopril and metoprolol at home will follow blood pressure closely and resume home medication. hyperlipidemia on Zocor at home
[2020-06-15 19:03] LABS: ~Lactic Acid-LAB USE ONLY 1.3 mmol/L (0.5-2.0)
[2020-06-15] MEDS: 0.9 % Sodium Chloride 1,000 ML 75 ML IVCONT (20:39)
[2020-06-15 20:59] LABS: Glucose, Whole Blood 292 mg/dL (60-115)
[2020-06-15] MEDS: Heparin Sodium,Porcine 5,000 UNIT/ML VIAL 5000 UNIT SUBCUT (21:33)
[2020-06-16] VITALS (8 sets, daily range): BP systolic 128–157; BP diastolic 67–91; PULSE 72–152; RESP 18; TEMP 36.1–36.8; O2SAT 92–98; BMI 43.9
[2020-06-16 06:30] LABS: MANUAL DIFF FLAG NO
[2020-06-16 06:43] LABS: Basophils Percent Auto 0.1 % (0-2); Hematocrit 46.4 % (37-47); Hemoglobin 15.2 g/dl (12.0-16.0); Imm Gran Abs Auto 0.05 X10*3/uL (0.00-0.03); Imm Gran Pct Auto 0.5 % (0.0-0.4); Lymphocytes Percent Auto 10.5 % (20-40); Mean Corpuscular HGB Conc 32.8 g/dl (31.0-35.0); Mean Corpuscular Hemoglobin 29.3 pg (27.0-33.0); Mean Corpuscular Volume 89.4 fL (80-98); Mean Platelet Volume 11.4 fL (9.4-12.3); Monocytes Absolute Auto 0.3 X10*3/uL (0.1-1.2); Monocytes Percent Auto 3.5 % (2-11); Neutrophils Absolute Auto 8.2 X10*3/uL (2.0-8.3); Neutrophils Percent Auto 85.4 % (45-73); Platelet Count 198 X10*3/uL (160-400); Red Blood Count 5.19 X10*6/uL (4.20-5.50); Red Cell Distribution Width 13.5 % (11.0-16.0); White Blood Count 9.7 X10*3/uL (4.8-10.8)
[2020-06-16 07:06] LABS: Anion Gap 15 (12-20); Blood Urea Nitrogen 12 mg/dL (9-16); Calcium 8.7 mg/dL (8.4-10.2); Carbon Dioxide 32 mmol/L (22-29); Chloride 93 mmol/L (96-108); Creatinine Clr Calc Pharmacy 104.3; Estimated Glomerular Filt Rate > 60; Glucose Random 313 mg/dL (60-115); Magnesium 1.8 mg/dL (1.6-2.6); Sodium 136 mmol/L (135-145)
[2020-06-16] MEDS: Albuterol Sulfate (0.083%) 2.5 MG/3 ML VIAL.NEB INHALE ×5 (07:22→20:07)
[2020-06-16] MEDS: Loratadine 10 MG TABLET PO (09:10)
[2020-06-16 09:11] LABS: Glucose, Whole Blood 302 mg/dL (60-115)
[2020-06-16] MEDS: 0.9 % Sodium Chloride 1,000 ML 75 ML IVCONT (09:11)
[2020-06-16] MEDS: Heparin Sodium,Porcine 5,000 UNIT/ML VIAL 5000 UNIT SUBCUT ×2 (09:11→21:26)
[2020-06-16] MEDS: Insulin Glargine,Hum.rec.anlog 100 UNIT/ML 10 ML VIAL 80 UNIT SUBCUT (09:12)
--- NOTE | 2020-06-16 09:22 | MHC.CM.PN ---
Patient is presently confused; CM spoke with Daughter/HCP/Strip Machine Operator- Stefany. Patient lives alone in an apartment and requires total care and uses a alex lift for mobility. Prior to Covid, Patient received 120 [employer] hours through [facility] [place]. Presently Stefany provides total care for her Mother from 6AM- Midnight. The goal for dc is for Patient to return home and CM has initiated and will follow for dc planning. IMM addressed with Stefany and original is being mailed certified letter to her and a copy has been placed on the chart. PCP is Dr. Cherise Hamm @ [phone]. Patient has a chronic f/c that Stefany has been caring for X past 15 years (no VNA). Stefany lives at [address] [place] [address] in [place], [place] the [place] in Demographics.
[2020-06-16] MEDS: ondansetron HCL 4 MG/2 ML VIAL IVPUSH (09:34)
[2020-06-16 11:33] LABS: Glucose, Whole Blood 319 mg/dL (60-115)
--- NOTE | 2020-06-16 14:09 | P.PNIM_ITS ---
Subjective Subjective Date of Service: 06/16/20 Interval History: patient seen in follow-up for sepsis and acute encephalopathy due to urinary tract infection, patient awake alert complaining of nausea but refusing to eat and take medications. 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 GI complain of nausea, no pain Physical Exam Vital Signs: Vital Signs: Last Vital Signs Temp 97.9 F 06/16/20 12:00 Pulse 114 H 06/16/20 12:00 Resp 18 06/16/20 12:00 BP 157/67 H 06/16/20 12:00 Pulse Ox 92 06/16/20 12:00 Body Mass Index 43.9 General patient resting comfortably,no acute distress. Neck supple no JVD. CVS regular rate rhythm, Respiratory lungs clear to auscultation, no respiratory distress. Gastrointestinal abdomen obese, soft, nontender, bowel sounds audible. Extremities no edema. Neuro nonfocal patient moving all 4 extremity speech clear. Skin no rash Objective Data Current Medications Generic Name Dose Route Start Last Admin Trade Name Freq PRN Reason Stop Dose Admin Acetaminophen 650 mg 06/15/20 20:30 Acetaminophen 325 Mg Tablet PO Q6H PRN Pain, Mild (Pain Scale 1-3) Albuterol Sulfate 2.5 mg 06/16/20 13:00 06/16/20 11:15 Albuterol Sulfate (0.083%) 2.5 Mg/3 Ml Vial.Neb INHALE 2.5 mg RQID MARJAN Administration Aspirin 81 mg 06/16/20 09:00 06/16/20 10:06 Aspirin Enteric Coated 81 Mg Tablet.Dr PO Not Given DAILY MARJAN Atorvastatin Calcium 20 mg 06/15/20 21:00 06/15/20 21:31 Atorvastatin Calcium 20 Mg Tablet PO Not Given BEDTIME MARJAN Furosemide 40 mg 06/16/20 10:50 06/16/20 11:22 Furosemide 40 Mg Tablet PO Not Given DAILY [facility] Protocol Heparin Sodium (Porcine) 5,000 unit 06/15/20 21:00 06/16/20 09:11 Heparin Sodium,Porcine 5,000 Unit/Ml Vial SUBCUT 5,000 unit Q12H MARJAN Administration Ceftriaxone Sodium 1 gm/ 50 mls @ 100 mls/hr 06/16/20 15:00 Sodium Chloride IV Q24H [facility] Insulin Glargine 40 unit 06/16/20 11:00 06/16/20 11:43 Insulin Glargine,Hum.Rec.Anlog 100 Unit/Ml 10 Ml Vial SUBCUT Not Given DAILY [facility] Lisinopril 5 mg 06/16/20 09:00 06/16/20 10:07 Lisinopril 5 Mg Tablet PO Not Given DAILY [facility] Protocol Loratadine 10 mg 06/16/20 09:00 06/16/20 09:10 Loratadine 10 Mg Tablet PO 10 mg DAILY [facility] Administration Methylprednisolone Sodium Succinate 40 mg 06/16/20 11:00 06/16/20 12:00 Methylprednisolone Sod Succ/Pf 40 Mg/Ml Vial IVPUSH 40 mg Q12H MARJAN Administration Metoprolol Tartrate 100 mg 06/15/20 21:00 06/16/20 09:22 Metoprolol Tartrate 100 Mg Tablet PO Not Given BID [facility] Protocol Ondansetron HCl 4 mg 06/15/20 20:30 06/16/20 09:34 Ondansetron Hcl 4 Mg/2 Ml Vial IVPUSH 4 mg Q8H PRN Administration Nausea and Vomiting Pharmacy Consult 1 each 06/15/20 13:54 Consult Rx Perform Med Rec MISCELLANE ONCE PRN Consult order Sodium Chloride 3 ml 06/16/20 00:00 06/16/20 09:09 0.9 % Sodium Chloride Flush 3 Ml Syringe IVFLUSH Not Given QSHIFT [facility] Labs CBC & Chem 7: 06/16/20 05:41 06/16/20 05:41 Microbiology Microbiology Results: Microbiology 06/15/20 14:39 Urine clean catch - Clean Catch Midstream Urine Culture - P reliminary Gram negative adriana 06/15/20 14:40 Blood - Venous Blood Culture - Preliminary Assessment and Plan (1) Acute encephalopathy: Status: Acute (2) Severe sepsis: Status: Acute (3) UTI (urinary tract infection): Status: Acute (4) Leukocytosis: Status: Acute (5) Hypomagnesemia: Status: Acute (6) Elevated troponin: Status: Acute (7) Elevated lactic acid level: Status: Acute Assessment and Plan: 61-year-old woman admitted with acute encephalopathy secondary to urinary tract infection with severe sepsis. Severe sepsis related to UTI patient on admission had Leukocytosis, tachypnea, and lactic acidosis leukocytosis, lactic acidosis and tachypnea resolved. Follow urine and blood cultures. continue IV ceftriaxone and supportive care Acute respiratory failure related to COPD exacerbation. no acute respiratory distress noted, continue DuoNeb changed to q.i.d., continue IV Solu-Medrol changed to b.i.d., continue supplemental oxygen and gradually wean. Acute toxic metabolic encephalopathy. patient is somnolent but answering questions appropriately, refusing to eat and pulling air sampling and monitoring, continue to treat UTI and metabolic abnormalities and follow clinical course. Elevated troponin. No chest pain, no acute changes on EKG. mildly elevated troponin remains flat likely due to infection. Hypomagnesemia. Repleted and resolved. Diabetes mellitus. blood sugars elevated likely due to use of steroids continue Sliding scale, ADA diet and Lantus dose reduced to 50% due to decreased by mouth intake. Hypertension. Stable blood pressure. Continue lisinopril, and metoprolol. Hyperlipidemia. Continue statin. Morbid obesity will recommend weight reduction Lactic acidosis related to sepsis resolved DVT prophylaxis with Heparin.
[2020-06-16] MEDS: cefTRIAXone sodium 1 GM in 0.9 % Sodium Chloride 50 ML IV (14:24)
[2020-06-16] MEDS: 0.9 % Sodium Chloride Flush 3 ML SYRINGE IVFLUSH (16:05)
[2020-06-16 16:17] LABS: Glucose, Whole Blood 434 mg/dL (60-115)
[2020-06-16] MEDS: Insulin Lispro 100 UNIT/ML 3 ML VIAL SUBCUT ×2 (17:21→21:26)
[2020-06-16] MEDS: Metoprolol Tartrate 7.5 MG in 0.9 % Sodium Chloride 50 ML 200 MG IV (17:22)
[2020-06-16 20:47] LABS: Glucose, Whole Blood 347 mg/dL (60-115)
[2020-06-17] VITALS (16 sets, daily range): BP systolic 107–168; BP diastolic 54–89; PULSE 65–89; RESP 17–20; TEMP 35.9–37.1; O2SAT 92–100
[2020-06-17] MEDS: Metoprolol Tartrate 7.5 MG in 0.9 % Sodium Chloride 50 ML 200 MG IV ×5 (00:42→22:07)
[2020-06-17] MEDS: 0.9 % Sodium Chloride Flush 3 ML SYRINGE IVFLUSH ×3 (00:57→16:21)
--- NOTE | 2020-06-17 06:39 | PC.NURSE ---
Pt letargic as previous shifts. Repo q2, inc care given. Pt resting comfortably.
[2020-06-17] MEDS: Albuterol Sulfate (0.083%) 2.5 MG/3 ML VIAL.NEB INHALE ×4 (07:22→19:40)
[2020-06-17 07:58] LABS: Glucose, Whole Blood 245 mg/dL (60-115)
[2020-06-17] MEDS: Insulin Lispro 100 UNIT/ML 3 ML VIAL SUBCUT ×4 (08:35→20:15)
[2020-06-17] MEDS: Insulin Glargine,Hum.rec.anlog 100 UNIT/ML 10 ML VIAL 40 UNIT SUBCUT (08:36)
[2020-06-17] MEDS: Heparin Sodium,Porcine 5,000 UNIT/ML VIAL 5000 UNIT SUBCUT ×2 (08:37→20:16)
[2020-06-17] MEDS: lisinopriL 5 MG TABLET PO (08:37)
[2020-06-17] MEDS: Loratadine 10 MG TABLET PO (08:37)
[2020-06-17] MEDS: Furosemide 40 MG TABLET PO (08:37)
[2020-06-17] MEDS: Aspirin Enteric Coated 81 MG TABLET.DR PO (08:37)
--- NOTE | 2020-06-17 10:52 | P.PNIM_ITS ---
Subjective Subjective Date of Service: 06/17/20 Interval History: Seen in follow-up for sepsis and acute encephalopathy due to urinary tract infection. She is lethargic and somnolent this morning an will hardly eat. Vital are stable however Review of Systems Unable to obtain d/t mental status n Physical Exam Vital Signs: Vital Signs: Last Vital Signs Temp 97.6 F 06/17/20 07:53 Pulse 69 06/17/20 08:37 Resp 17 06/17/20 07:53 BP 152/71 H 06/17/20 08:37 Pulse Ox 97 06/17/20 07:53 Body Mass Index 43.9 General patient somnolent Neck supple no JVD. CVS regular rate rhythm, Respiratory lungs clear to auscultation, no respiratory distress. Gastrointestinal abdomen obese, soft, nontender, bowel sounds audible. Extremities no edema. Neuro nonfocal somnolent o/w no focal Skin no rash Objective Data Current Medications Generic Name Dose Route Start Last Admin Trade Name Freq PRN Reason Stop Dose Admin Acetaminophen 650 mg 06/15/20 20:30 Acetaminophen 325 Mg Tablet PO Q6H PRN Pain, Mild (Pain Scale 1-3) Albuterol Sulfate 2.5 mg 06/16/20 13:00 06/17/20 07:22 Albuterol Sulfate (0.083%) 2.5 Mg/3 Ml Vial.Neb INHALE 2.5 mg RQID MARJAN Administration Aspirin 81 mg 06/16/20 09:00 06/17/20 08:37 Aspirin Enteric Coated 81 Mg Tablet.Dr PO 81 mg DAILY MARJAN Administration Atorvastatin Calcium 20 mg 06/15/20 21:00 06/16/20 21:19 Atorvastatin Calcium 20 Mg Tablet PO Not Given BEDTIME MARJAN Furosemide 40 mg 06/16/20 10:50 06/17/20 08:37 Furosemide 40 Mg Tablet PO 40 mg DAILY MARJAN Administration Protocol Heparin Sodium (Porcine) 5,000 unit 06/15/20 21:00 06/17/20 08:37 Heparin Sodium,Porcine 5,000 Unit/Ml Vial SUBCUT 5,000 unit Q12H MARJAN Administration Ceftriaxone Sodium 1 gm/ 50 mls @ 100 mls/hr 06/16/20 15:00 06/16/20 15:23 Sodium Chloride IV Infused Q24H MARJAN Infusion Metoprolol Tartrate 7.5 mg/ 57.5 mls @ 200 mls/hr 06/16/20 17:00 06/17/20 05:14 Sodium Chloride IV Infused Q6H MARJAN Infusion Vancomycin HCl 750 mg/ 275 mls @ 183.333 mls/hr 06/17/20 00:00 06/17/20 02:45 Vancomycin HCl 500 mg/ Sodium IV Infused Chloride Q12H MARJAN Infusion Insulin Glargine 40 unit 06/16/20 11:00 06/17/20 08:36 Insulin Glargine,Hum.Rec.Anlog 100 Unit/Ml 10 Ml Vial SUBCUT 40 unit DAILY MARJAN Administration Insulin Human Lispro 0 unit 06/16/20 16:30 06/17/20 08:35 Insulin Lispro 100 Unit/Ml 3 Ml Vial SUBCUT 4 unit QIDACHS [facility] Administration Protocol Lisinopril 5 mg 06/16/20 09:00 06/17/20 08:37 Lisinopril 5 Mg Tablet PO 5 mg DAILY [facility] Administration Protocol Loratadine 10 mg 06/16/20 09:00 06/17/20 08:37 Loratadine 10 Mg Tablet PO 10 mg DAILY MARJAN Administration Methylprednisolone Sodium Succinate 40 mg 06/16/20 11:00 06/17/20 00:52 Methylprednisolone Sod Succ/Pf 40 Mg/Ml Vial IVPUSH 40 mg Q12H MARJAN Administration Ondansetron HCl 4 mg 06/15/20 20:30 06/16/20 09:34 Ondansetron Hcl 4 Mg/2 Ml Vial IVPUSH 4 mg Q8H PRN Administration Nausea and Vomiting Pharmacy Consult 1 each 06/15/20 13:54 Consult Rx Perform Med Rec MISCELLANE ONCE PRN Consult order Sodium Chloride 3 ml 06/16/20 00:00 06/17/20 08:36 0.9 % Sodium Chloride Flush 3 Ml Syringe IVFLUSH 3 ml QSHIFT [facility] Administration Labs CBC & Chem 7: 06/16/20 05:41 06/16/20 05:41 Microbiology Microbiology Results: Microbiology 06/15/20 07:41 Blood - Venous Blood Culture - Preliminary 06/15/20 14:39 Urine clean catch - Clean Catch Midstream Urine Culture - Final Citrobacter freundii 06/15/20 14:40 Blood - Venous Blood Culture - Preliminary Assessment and Plan (1) Acute encephalopathy: Status: Acute (2) Severe sepsis: Status: Acute (3) UTI (urinary tract infection): Status: Acute (4) Leukocytosis: Status: Acute (5) Hypomagnesemia: Status: Acute (6) Elevated troponin: Status: Acute (7) Elevated lactic acid level: Status: Acute Assessment and Plan: 61-year-old woman admitted with acute encephalopathy secondary to urinary tract infection with severe sepsis. Severe sepsis related to UTI--sepsis has resolved. Urine culture is growing gram negative rods--sensitivity pending. continue Ceftriaxone and follow culture Acute respiratory failure related to COPD exacerbation. no acute respiratory distress noted, continue DuoNeb changed, continue IV Solu-Medrol changed to b.i.d., continue supplemental oxygen and gradually wean. Acute toxic metabolic encephalopathy. 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 check abg Elevated troponin. No chest pain, no acute changes on EKG. mildly elevated troponin remains flat likely due to infection. Hypomagnesemia. Repleted and resolved. Diabetes mellitus. blood sugars elevated likely due to use of steroids continue Sliding scale, ADA diet and Lantus dose reduced to 50% due to decreased by mouth intake. Hypertension. Stable blood pressure. Continue lisinopril, and metoprolol. Hyperlipidemia. Continue statin. Morbid obesity will recommend weight reduction Lactic acidosis related to sepsis resolved DVT prophylaxis with Heparin.
--- NOTE | 2020-06-17 11:03 | MHC.CM.PN ---
Goal for dc is to return home.Patient is here with Sepsis r/t a UTI and receiving IV Ceftriaxone and IV Vanco.Patient is also receiving IV Solu Medrol and not yet medically cleared for dc. Per documentation, Patient is lethargic and has poor PO intake. CM will continue to follow for dc planning and the possible need to adjust the dc plan.
[2020-06-17 11:21] LABS: Glucose, Whole Blood 362 mg/dL (60-115)
[2020-06-17 11:37] LABS: Pt Ventilation O2% 3 L
[2020-06-17 11:43] LABS: ABG PCO2 51 mmhg (32-45); Base Excess ABG 7.7; HCO3 ABG 34 mmol/l (22-26); Oxygen Saturation ABG 97.1 %; PO2 ABG 84 mmhg (83-108); pH ABG 7.43 (7.35-7.45)
[2020-06-17 16:06] LABS: Glucose, Whole Blood 207 mg/dL (60-115)
[2020-06-17] MEDS: cefTRIAXone sodium 1 GM in 0.9 % Sodium Chloride 50 ML IV (16:21)
[2020-06-17 19:53] LABS: Glucose, Whole Blood 280 mg/dL (60-115)
[2020-06-17] MEDS: Atorvastatin Calcium 20 MG TABLET PO (20:16)
[2020-06-18] VITALS (13 sets, daily range): BP systolic 138–180; BP diastolic 69–95; PULSE 64–81; RESP 18–20; TEMP 36.1–36.9; O2SAT 95–99
[2020-06-18] MEDS: Metoprolol Tartrate 7.5 MG in 0.9 % Sodium Chloride 50 ML 200 MG IV (06:03)
[2020-06-18] MEDS: Albuterol Sulfate (0.083%) 2.5 MG/3 ML VIAL.NEB INHALE ×4 (07:31→20:12)
[2020-06-18 07:37] LABS: Glucose, Whole Blood 298 mg/dL (60-115)
[2020-06-18] MEDS: Insulin Lispro 100 UNIT/ML 3 ML VIAL SUBCUT ×4 (08:15→22:10)
[2020-06-18] MEDS: lisinopriL 5 MG TABLET PO (08:20)
[2020-06-18] MEDS: Aspirin Enteric Coated 81 MG TABLET.DR PO (08:20)
[2020-06-18] MEDS: 0.9 % Sodium Chloride Flush 3 ML SYRINGE IVFLUSH ×3 (08:20→22:12)
[2020-06-18] MEDS: Furosemide 40 MG TABLET PO (08:20)
[2020-06-18] MEDS: Loratadine 10 MG TABLET PO (08:20)
[2020-06-18] MEDS: Heparin Sodium,Porcine 5,000 UNIT/ML VIAL 5000 UNIT SUBCUT ×2 (08:35→22:11)
[2020-06-18] MEDS: Insulin Glargine,Hum.rec.anlog 100 UNIT/ML 10 ML VIAL 40 UNIT SUBCUT (08:36)
[2020-06-18 11:32] LABS: Glucose, Whole Blood 347 mg/dL (60-115)
[2020-06-18 11:48] LABS: Vancomycin Trough 13.2 mcg/mL (10.0-20.0)
[2020-06-18 11:55] LABS: Anion Gap 14 (12-20); Blood Urea Nitrogen 16 mg/dL (9-16); Calcium 8.7 mg/dL (8.4-10.2); Carbon Dioxide 34 mmol/L (22-29); Chloride 91 mmol/L (96-108); Creatinine Clr Calc Pharmacy 94.9; Estimated Glomerular Filt Rate > 60; Glucose Random 387 mg/dL (60-115); Potassium 3.8 mmol/l (3.3-5.1); Sodium 135 mmol/L (135-145)
[2020-06-18] MEDS: cefTRIAXone sodium 1 GM in 0.9 % Sodium Chloride 50 ML IV (14:01)
--- NOTE | 2020-06-18 15:27 | P.PNIM_ITS ---
Subjective Subjective Date of Service: 06/18/20 Interval History: Seen in follow-up for sepsis and acute encephalopathy due to urinary tract infection. She is lethargic and somnolent this morning an will hardly eat. Vital are stable however Review of Systems Gen: no fever Resp: no sob, no cough CV: no chest, no ANGELO, no leg edema GI: No n/v, no abd pain Neuro: No confusion Physical Exam Vital Signs: Vital Signs: Last Vital Signs Temp 97.0 F 06/18/20 12:00 Pulse 81 06/18/20 12:00 Resp 20 06/18/20 12:00 BP 157/77 H 06/18/20 12:00 Pulse Ox 95 06/18/20 12:00 Body Mass Index 43.9 General: AO X 3, no acute distress Resp: CTA bilateral CVS: S1,S2,RRR GI: +BS, NT, no distention Skin: No rash Neuro: motor grossly intact Psych: appropriate affect Objective Data Current Medications Generic Name Dose Route Start Last Admin Trade Name Freq PRN Reason Stop Dose Admin Acetaminophen 650 mg 06/15/20 20:30 Acetaminophen 325 Mg Tablet PO Q6H PRN Pain, Mild (Pain Scale 1-3) Albuterol Sulfate 2.5 mg 06/16/20 13:00 06/18/20 11:35 Albuterol Sulfate (0.083%) 2.5 Mg/3 Ml Vial.Neb INHALE 2.5 mg RQID MARJAN Administration Aspirin 81 mg 06/16/20 09:00 06/18/20 08:20 Aspirin Enteric Coated 81 Mg Tablet.Dr PO 81 mg DAILY MARJAN Administration Atorvastatin Calcium 20 mg 06/15/20 21:00 06/17/20 20:16 Atorvastatin Calcium 20 Mg Tablet PO 20 mg BEDTIME MARJAN Administration Furosemide 40 mg 06/16/20 10:50 06/18/20 08:20 Furosemide 40 Mg Tablet PO 40 mg DAILY MARJAN Administration Protocol Heparin Sodium (Porcine) 5,000 unit 06/15/20 21:00 06/18/20 08:35 Heparin Sodium,Porcine 5,000 Unit/Ml Vial SUBCUT 5,000 unit Q12H MARJAN Administration Ceftriaxone Sodium 1 gm/ 50 mls @ 100 mls/hr 06/16/20 15:00 06/18/20 14:40 Sodium Chloride IV Infused Q24H MARJAN Infusion Insulin Glargine 40 unit 06/16/20 11:00 06/18/20 08:36 Insulin Glargine,Hum.Rec.Anlog 100 Unit/Ml 10 Ml Vial SUBCUT 40 unit DAILY [facility] Administration Insulin Human Lispro 0 unit 06/16/20 16:30 06/18/20 11:53 Insulin Lispro 100 Unit/Ml 3 Ml Vial SUBCUT 8 unit QIDACHS [facility] Administration Protocol Lisinopril 5 mg 06/16/20 09:00 06/18/20 08:20 Lisinopril 5 Mg Tablet PO 5 mg DAILY [facility] Administration Protocol Loratadine 10 mg 06/16/20 09:00 06/18/20 08:20 Loratadine 10 Mg Tablet PO 10 mg DAILY [facility] Administration Methylprednisolone Sodium Succinate 40 mg 06/16/20 11:00 06/18/20 11:53 Methylprednisolone Sod Succ/Pf 40 Mg/Ml Vial IVPUSH 40 mg Q12H [facility]JAN Administration Ondansetron HCl 4 mg 06/15/20 20:30 06/16/20 09:34 Ondansetron Hcl 4 Mg/2 Ml Vial IVPUSH 4 mg Q8H PRN Administration Nausea and Vomiting Pharmacy Consult 1 each 06/15/20 13:54 Consult Rx Perform Med Rec MISCELLANE ONCE PRN Consult order Sodium Chloride 3 ml 06/16/20 00:00 06/18/20 14:01 0.9 % Sodium Chloride Flush 3 Ml Syringe IVFLUSH 3 ml QSHIFT [facility] Administration Labs CBC & Chem 7: 06/16/20 05:41 06/18/20 10:51 Microbiology Microbiology Results: Microbiology 06/15/20 14:40 Blood - Venous Blood Culture - Preliminary Coagulase-neg Staphyloccocus Gram positive cocci Gram positive cocci#2 06/15/20 07:41 Blood - Venous Blood Culture - Preliminary Coagulase-neg Staphyloccocus 06/16/20 22:35 Blood - Venous Blood Culture - Preliminary No growth after 24 hours. 06/16/20 21:20 Blood - Venous Blood Culture - Preliminary No growth after 24 hours. 06/15/20 14:39 Urine clean catch - Clean Catch Midstream Urine Culture - Final Citrobacter freundii Assessment and Plan (1) Acute encephalopathy: Status: Acute (2) Severe sepsis: Status: Acute (3) UTI (urinary tract infection): Status: Acute (4) Leukocytosis: Status: Acute (5) Hypomagnesemia: Status: Acute (6) Elevated troponin: Status: Acute (7) Elevated lactic acid level: Status: Acute Assessment and Plan: 61-year-old woman admitted with acute encephalopathy secondary to urinary tract infection with severe sepsis. Severe sepsis related to UTI--sepsis has resolved. Urine culture is growing Citrobacter, sensitive to ceftriaxone continue Ceftriaxone D3 ?Bacteremia Blood cultures fro 06/15 is growing cog neg staph, gram positive cocci#1,gram positive cocci#2 in one sleeping bag filler and in another bottle just coag negative staph Repeat blood culture on 06/16 negaive todate. I think this iscontamination but will get ID input Acute respiratory failure related to COPD exacerbation. negative covid. no acute respiratory distress noted, continue DuoNeb changed, continue IV Solu-Medrol to prednisone , continue supplemental oxygen and gradually wean. Acute toxic metabolic encephalopathy. likely from UTI, no longer somnolent, she is lucid Elevated troponin. No chest pain, no acute changes on EKG. mildly elevated troponin remains flat likely due to infection. Hypomagnesemia. Repleted and resolved. Diabetes mellitus. blood sugars elevated likely due to use of steroids continue Sliding scale, ADA diet and Lantus dose reduced to 50%, but will increase in light of hyperglycemnia Hypertension. Stable blood pressure. Continue lisinopril, and metoprolol. Hyperlipidemia. Continue statin. Morbid obesity,advise weight loss to reduce negative health effect on all comordi condition, particulary dm and htn Lactic acidosis related to sepsis resolved DVT prophylaxis with Heparin.
[2020-06-18 16:27] LABS: Glucose, Whole Blood 286 mg/dL (60-115)
[2020-06-18 21:00] LABS: Glucose, Whole Blood 310 mg/dL (60-115)
[2020-06-18] MEDS: Metoprolol Tartrate 50 MG TABLET PO (22:06)
[2020-06-18] MEDS: Atorvastatin Calcium 20 MG TABLET PO (22:10)
[2020-06-19] VITALS (13 sets, daily range): BP systolic 138–184; BP diastolic 75–102; PULSE 61–81; RESP 16–20; TEMP 36.2–37.2; O2SAT 93–98
[2020-06-19] MEDS: Albuterol Sulfate (0.083%) 2.5 MG/3 ML VIAL.NEB INHALE ×4 (07:24→19:44)
[2020-06-19 07:43] LABS: Glucose, Whole Blood 244 mg/dL (60-115)
[2020-06-19] MEDS: Insulin Lispro 100 UNIT/ML 3 ML VIAL SUBCUT ×4 (07:49→22:22)
[2020-06-19] MEDS: Furosemide 40 MG TABLET PO (07:49)
[2020-06-19] MEDS: Loratadine 10 MG TABLET PO (07:49)
[2020-06-19] MEDS: lisinopriL 5 MG TABLET PO (07:50)
[2020-06-19] MEDS: 0.9 % Sodium Chloride Flush 3 ML SYRINGE IVFLUSH ×2 (07:50→14:25)
[2020-06-19] MEDS: Metoprolol Tartrate 50 MG TABLET PO ×2 (07:50→09:19)
[2020-06-19] MEDS: Insulin Glargine,Hum.rec.anlog 100 UNIT/ML 10 ML VIAL 40 UNIT SUBCUT (07:50)
[2020-06-19] MEDS: Heparin Sodium,Porcine 5,000 UNIT/ML VIAL 5000 UNIT SUBCUT ×2 (07:50→22:21)
[2020-06-19] MEDS: Aspirin Enteric Coated 81 MG TABLET.DR PO (07:50)
[2020-06-19] MEDS: Acetaminophen 325 MG TABLET 650 MG PO ×2 (07:58→22:27)
[2020-06-19 11:26] LABS: Glucose, Whole Blood 280 mg/dL (60-115)
--- NOTE | 2020-06-19 13:45 | HO.PM.IMPN ---
Subjective Subjective Date of Service: 06/19/20 Interval History: Seen in follow-up for sepsis and acute encephalopathy due to urinary tract infection. She is fully alert and orieented and very talkative and doesn't want to go rehab Review of Systems Gen: no fever Resp: no sob, no cough CV: no chest, no ANGELO, no leg edema GI: No n/v, no abd pain Neuro: No confusion Physical Exam Vital Signs: Vital Signs: Last Vital Signs Temp 98.4 F 06/19/20 07:48 Pulse 69 06/19/20 12:00 Resp 20 06/19/20 12:00 BP 138/78 06/19/20 12:00 Pulse Ox 93 06/19/20 12:00 Body Mass Index 43.9 General: AO X 3, no acute distress Resp: CTA bilateral CVS: S1,S2,RRR GI: +BS, NT, no distention Skin: No rash Neuro: motor grossly intact Psych: appropriate affect Objective Data Current Medications Generic Name Dose Route Start Last Admin Trade Name Freq PRN Reason Stop Dose Admin Acetaminophen 650 mg 06/15/20 20:30 06/19/20 07:58 Acetaminophen 325 Mg Tablet PO 650 mg Q6H PRN Administration Pain, Mild (Pain Scale 1-3) Albuterol Sulfate 2.5 mg 06/16/20 13:00 06/19/20 11:07 Albuterol Sulfate (0.083%) 2.5 Mg/3 Ml Vial.Neb INHALE 2.5 mg RQID MARJAN Administration Aspirin 81 mg 06/16/20 09:00 06/19/20 07:50 Aspirin Enteric Coated 81 Mg Tablet.Dr PO 81 mg DAILY [facility] Administration Atorvastatin Calcium 20 mg 06/15/20 21:00 06/18/20 22:10 Atorvastatin Calcium 20 Mg Tablet PO 20 mg BEDTIME [facility] Administration Furosemide 40 mg 06/16/20 10:50 06/19/20 07:49 Furosemide 40 Mg Tablet PO 40 mg DAILY [facility] Administration Protocol Heparin Sodium (Porcine) 5,000 unit 06/15/20 21:00 06/19/20 07:50 Heparin Sodium,Porcine 5,000 Unit/Ml Vial SUBCUT 5,000 unit Q12H [facility] Administration Ceftriaxone Sodium 1 gm/ 50 mls @ 100 mls/hr 06/16/20 15:00 06/18/20 14:40 Sodium Chloride IV Infused Q24H [facility] Infusion Insulin Glargine 40 unit 06/16/20 11:00 06/19/20 07:50 Insulin Glargine,Hum.Rec.Anlog 100 Unit/Ml 10 Ml Vial SUBCUT 40 unit DAILY REPLACED BY [facility] Administration Insulin Human Lispro 0 unit 06/16/20 16:30 06/19/20 11:48 Insulin Lispro 100 Unit/Ml 3 Ml Vial SUBCUT 6 unit QIDACHS REPLACED BY [facility] Administration Protocol Lisinopril 5 mg 06/16/20 09:00 06/19/20 07:50 Lisinopril 5 Mg Tablet PO 5 mg DAILY [facility] Administration Protocol Loratadine 10 mg 06/16/20 09:00 06/19/20 07:49 Loratadine 10 Mg Tablet PO 10 mg DAILY [facility]PL[facility] Administration Methylprednisolone Sodium Succinate 40 mg 06/16/20 11:00 06/19/20 11:48 Methylprednisolone Sod Succ/Pf 40 Mg/Ml Vial IVPUSH 40 mg Q12H REPLACED BY [facility] Administration Metoprolol Tartrate 100 mg 06/19/20 21:00 Metoprolol Tartrate 100 Mg Tablet PO BID REPLACED BY [facility] Protocol Ondansetron HCl 4 mg 06/15/20 20:30 06/16/20 09:34 Ondansetron Hcl 4 Mg/2 Ml Vial IVPUSH 4 mg Q8H PRN Administration Nausea and Vomiting Pharmacy Consult 1 each 06/15/20 13:54 Consult Rx Perform Med Rec MISCELLANE ONCE PRN Consult order Sodium Chloride 3 ml 06/16/20 00:00 06/19/20 07:50 0.9 % Sodium Chloride Flush 3 Ml Syringe IVFLUSH 3 ml QSHIFT REPLACED BY [facility] Administration Labs CBC & Chem 7: 06/16/20 05:41 06/18/20 10:51 Microbiology Microbiology Results: Microbiology 06/15/20 14:40 Blood - Venous Blood Culture - Preliminary Staphylococcus epidermidis Gram positive cocci Gram positive cocci#2 06/15/20 07:41 Blood - Venous Blood Culture - Final Staphylococcus epidermidis 06/16/20 22:35 Blood - Venous Blood Culture - Preliminary No growth after 48 hours. 06/16/20 21:20 Blood - Venous Blood Culture - Preliminary No growth after 48 hours. 06/15/20 14:39 Urine clean catch - Clean Catch Midstream Urine Culture - Final Citrobacter freundii Assessment and Plan (1) Acute encephalopathy: Status: Acute (2) Severe sepsis: Status: Acute (3) UTI (urinary tract infection): Status: Acute (4) Leukocytosis: Status: Acute (5) Hypomagnesemia: Status: Acute (6) Elevated troponin: Status: Acute (7) Elevated lactic acid level: Status: Acute Assessment and Plan: 61-year-old woman admitted with acute encephalopathy secondary to urinary tract infection with severe sepsis. Severe sepsis related to UTI--sepsis has resolved. Urine culture is growing Citrobacter, sensitive to ceftriaxone continue Ceftriaxone D4, change to PO Ceftin for 10 days ?Bacteremia Blood cultures fro 06/15 is growing cog neg staph, gram positive cocci#1,gram positive cocci#2 in one office technology instructor and in another bottle just coag negative staph Repeat blood culture on 06/16 negaive todate. I think this is contamination but will get ID input Acute respiratory failure related to COPD exacerbation. negative covid. no acute respiratory distress noted, continue DuoNeb changed, continue IV Solu-Medrol to prednisone , continue supplemental oxygen and gradually wean. Acute toxic metabolic encephalopathy. likely from UTI, no longer somnolent, she is lucid Elevated troponin. No chest pain, no acute changes on EKG. mildly elevated troponin remains flat likely due to infection. Hypomagnesemia. Repleted and resolved. Diabetes mellitus. blood sugars elevated likely due to use of steroids continue Sliding scale, ADA diet and Lantus dose reduced to 50%, but will increase in light of hyperglycemnia Hypertension. Stable blood pressure. Continue lisinopril, and metoprolol. Hyperlipidemia. Continue statin. Morbid obesity,advise weight loss to reduce negative health effect on all comordi condition, particulary dm and htn Lactic acidosis related to sepsis resolved home later today or tomorrow DVT prophylaxis with Heparin.
[2020-06-19] MEDS: cefTRIAXone sodium 1 GM in 0.9 % Sodium Chloride 50 ML IV (14:25)
--- NOTE | 2020-06-19 16:08 | W.PM.IDCN ---
History of Present Illness Data of Consult Service Date: 06/19/20 Requesting physician: Juanjose Cheema Primary Care Provider: Unknown Physician HPI Reason for consult: bacteremia,UTI She presents to hospital with somnolence,chills She has symptoms for a day No one else is ill She has multiple organisms bacteremia Urine shows Citrobacter Review of Systems Constitutional: Constitutional: Reports headache(s) and Reports weakness ENT: Denies dizziness and Reports headache(s) Musculoskeletal: Musculoskeletal: Denies numbness and Denies tingling Neurologic: Reports system reviewed and no additional complaints, except as documented, Denies Abnormal speech present, Denies dizziness, Reports headache(s), Denies numbness, Denies tingling and Reports weakness PMFSH Past Medical History Medical History Chronic indwelling Molina catheter Chronic UTI Congestive heart failure COPD (chronic obstructive pulmonary disease) Diabetes Glaucoma Hypertension Obesity Osteoarthritis Severe sepsis Surgical History Surgical History H/O adenoidectomy H/O enucleation of left eyeball History of tonsillectomy Social History Social History Household Members: Unknown / Unable to assess Housing: Unknown / Unable to assess Alcohol intake: unknown Smoking Status: Unknown if ever smoked Use of substances other than those prescribed or required for medical reasons: Unknown Currently Displaying Signs/Symptoms of Drug Intoxication Withdrawal: No Advance Directives: No Advance Directives Information Provided: Yes Do you have thoughts of harming others: None Do you have a plan to hurt others: No Plan Recently lost weight without trying: No service: No Current occupational status: disabled Meds Allergies Allergy/AdvReac Type Severity Reaction Status Date / Time silver sulfadiazine Allergy Unknown UNK Unverified 03/26/20 16:27 [From SILVADENE] Home Medications Medication Instructions Recorded Confirmed Type albuterol sulfate [ProAir HFA] 1 - 2 puff PO Q4-6H PRN 06/15/20 06/15/20 History aspirin 1 tab PO DAILY 06/15/20 06/15/20 History docusate sodium 1 - 2 cap PO BID PRN 06/15/20 06/15/20 History fluticasone propionate [Flovent 2 puff PO BID 06/15/20 06/15/20 History Diskus] furosemide 1 tab PO BID 06/15/20 06/15/20 History insulin glargine [Lantus Solostar 80 unit SUBCUT DAILY 06/15/20 06/15/20 History U-100 Insulin] insulin lispro [Humalog KwikPen 0 unit SUBCUT TIDAC 06/15/20 06/15/20 History Insulin] ipratropium-albuterol 1 vial INHALATION Q4-6H PRN 06/15/20 06/15/20 History lisinopril 1 tab PO DAILY 06/15/20 06/15/20 History loratadine 1 tab PO DAILY 06/15/20 06/15/20 History metoprolol tartrate 1 tab PO BID 06/15/20 06/15/20 History nystatin 1 appl TOPICAL BID PRN 06/15/20 06/15/20 History simvastatin 1 tab PO BEDTIME 06/15/20 06/15/20 History Physical Exam Vital Signs: Vital Signs: Last Vital Signs Temp 98.9 F 06/19/20 15:31 Pulse 70 06/19/20 15:44 Resp 18 06/19/20 15:31 BP 162/75 H 06/19/20 15:31 Pulse Ox 93 06/19/20 15:31 Body Mass Index 43.9 Const: General: cooperative Orientation/consciousness: oriented to person and oriented to place HENMT: Head: Yes normal to inspection Mouth: oropharynx normal Resp: Effort & Inspection: normal respiratory effort Cardio: Rate: regular rate Rhythm: regular rhythm GI: Inspection: Yes normal to inspection : General: Yes no CVA tenderness Back/Spine/Pelvis: Back: no CVA tenderness Skin: General skin exam: no rashes or lesions noted Neuro: General: oriented to person, oriented to place and oriented to time Speech: No Abnormal speech present Assessment and Plan (1) Acute encephalopathy: Problem details: She has Citrobacter infection urine Bacteremias multiple organsims,likely contamininant Status: Acute Would give Levaquin for 14 day total (2) Severe sepsis: Status: Acute (3) UTI (urinary tract infection): Status: Acute Results Labs CBC & Chem 7: 06/16/20 05:41 06/18/20 10:51 Microbiology Microbiology Results: Microbiology 06/15/20 14:40 Blood - Venous Blood Culture - Final Staphylococcus epidermidis Streptococcus ovis Streptococcus parasanguinis Coagulase-neg Staphyloccocus 06/15/20 07:41 Blood - Venous Blood Culture - Final Staphylococcus epidermidis 06/16/20 22:35 Blood - Venous Blood Culture - Preliminary No growth after 48 hours. 06/16/20 21:20 Blood - Venous Blood Culture - Preliminary No growth after 48 hours. 06/15/20 14:39 Urine clean catch - Clean Catch Midstream Urine Culture - Final Citrobacter freundii
[2020-06-19 16:40] LABS: Glucose, Whole Blood 314 mg/dL (60-115)
[2020-06-19] MEDS: levoFLOXacin/D5W 500 MG/100 ML PIGGYBACK 100 MG IV (16:47)
[2020-06-19 21:03] LABS: Glucose, Whole Blood 377 mg/dL (60-115)
[2020-06-19] MEDS: Atorvastatin Calcium 20 MG TABLET PO (22:21)
[2020-06-19] MEDS: Metoprolol Tartrate 100 MG TABLET PO (22:23)
[2020-06-20] MEDS: 0.9 % Sodium Chloride Flush 3 ML SYRINGE IVFLUSH ×2 (00:41→08:57)
[2020-06-20 03:51] VITALS: BP 140/80; PULSE 60; RESP 16; TEMP 35.5; O2SAT 98
[2020-06-20 08:00] VITALS: BP 177/77; PULSE 70; RESP 18; TEMP 36.6; O2SAT 93
--- NOTE | 2020-06-20 08:17 | HO.PM.IMPN ---
Subjective Subjective Date of Service: 06/20/20 Interval History: Seen in follow-up for sepsis and acute encephalopathy due to urinary tract infection. She remains alert, no new complaint, no fever Review of Systems Gen: no fever Resp: no sob, no cough CV: no chest, no ANGELO, no leg edema GI: No n/v, no abd pain Neuro: No confusion Physical Exam Vital Signs: Vital Signs: Last Vital Signs Temp 96 F L 06/20/20 03:51 Pulse 60 06/20/20 03:51 Resp 16 06/20/20 03:51 BP 140/80 H 06/20/20 03:51 Pulse Ox 98 06/20/20 03:51 Body Mass Index 43.9 Const: Other: General: AO X 3, no acute distress Resp: CTA bilateral CVS: S1,S2,RRR GI: +BS, NT, no distention Skin: No rash Neuro: motor grossly intact Psych: appropriate affect Objective Data Current Medications Generic Name Dose Route Start Last Admin Trade Name Freq PRN Reason Stop Dose Admin Acetaminophen 650 mg 06/15/20 20:30 06/19/20 22:27 Acetaminophen 325 Mg Tablet PO 650 mg Q6H PRN Administration Pain, Mild (Pain Scale 1-3) Albuterol Sulfate 2.5 mg 06/16/20 13:00 06/19/20 19:44 Albuterol Sulfate (0.083%) 2.5 Mg/3 Ml Vial.Neb INHALE 2.5 mg RQID MARJAN Administration Aspirin 81 mg 06/16/20 09:00 06/19/20 07:50 Aspirin Enteric Coated 81 Mg Tablet.Dr PO 81 mg DAILY [facility] Administration Atorvastatin Calcium 20 mg 06/15/20 21:00 06/19/20 22:21 Atorvastatin Calcium 20 Mg Tablet PO 20 mg BEDTIME [facility] Administration Furosemide 40 mg 06/16/20 10:50 06/19/20 07:49 Furosemide 40 Mg Tablet PO 40 mg DAILY [facility] Administration Protocol Heparin Sodium (Porcine) 5,000 unit 06/15/20 21:00 06/19/20 22:21 Heparin Sodium,Porcine 5,000 Unit/Ml Vial SUBCUT 5,000 unit Q12H [facility] Administration Levofloxacin 500 mg in 100 mls @ 100 mls/hr 06/19/20 17:00 06/19/20 17:52 Levaquin IV Infused Q24H [facility] Infusion Insulin Glargine 40 unit 06/16/20 11:00 06/19/20 07:50 Insulin Glargine,Hum.Rec.Anlog 100 Unit/Ml 10 Ml Vial SUBCUT 40 unit DAILY [facility] Administration Insulin Human Lispro 0 unit 06/16/20 16:30 06/19/20 22:22 Insulin Lispro 100 Unit/Ml 3 Ml Vial SUBCUT 10 unit QIDACHS [facility] Administration Protocol Lisinopril 5 mg 06/16/20 09:00 06/19/20 07:50 Lisinopril 5 Mg Tablet PO 5 mg DAILY [facility] Administration Protocol Loratadine 10 mg 06/16/20 09:00 06/19/20 07:49 Loratadine 10 Mg Tablet PO 10 mg DAILY [facility] Administration Methylprednisolone Sodium Succinate 40 mg 06/16/20 11:00 06/19/20 22:27 Methylprednisolone Sod Succ/Pf 40 Mg/Ml Vial IVPUSH 40 mg Q12H [facility] Administration Metoprolol Tartrate 100 mg 06/19/20 21:00 06/19/20 22:23 Metoprolol Tartrate 100 Mg Tablet PO 100 mg BID [facility] Administration Protocol Ondansetron HCl 4 mg 06/15/20 20:30 06/16/20 09:34 Ondansetron Hcl 4 Mg/2 Ml Vial IVPUSH 4 mg Q8H PRN Administration Nausea and Vomiting Pharmacy Consult 1 each 06/15/20 13:54 Consult Rx Perform Med Rec MISCELLANE ONCE PRN Consult order Sodium Chloride 3 ml 06/16/20 00:00 06/20/20 00:41 0.9 % Sodium Chloride Flush 3 Ml Syringe IVFLUSH 3 ml QSHIFT [facility] Administration Labs CBC & Chem 7: 06/16/20 05:41 06/18/20 10:51 Microbiology Microbiology Results: Microbiology 06/15/20 14:40 Blood - Venous Blood Culture - Final Staphylococcus epidermidis Streptococcus ovis Streptococcus parasanguinis Coagulase-neg Staphyloccocus 06/15/20 07:41 Blood - Venous Blood Culture - Final Staphylococcus epidermidis 06/16/20 22:35 Blood - Venous Blood Culture - Preliminary No growth after 48 hours. 06/16/20 21:20 Blood - Venous Blood Culture - Preliminary No growth after 48 hours. 06/15/20 14:39 Urine clean catch - Clean Catch Midstream Urine Culture - Final Citrobacter freundii Assessment and Plan (1) Acute encephalopathy: Problem details: She has Citrobacter infection urine Bacteremias multiple organsims,likely contamininant Status: Acute (2) Severe sepsis: Status: Acute (3) UTI (urinary tract infection): Status: Acute (4) Leukocytosis: Status: Acute (5) Hypomagnesemia: Status: Acute (6) Elevated troponin: Status: Acute (7) Elevated lactic acid level: Status: Acute Assessment and Plan: 61-year-old woman admitted with acute encephalopathy secondary to urinary tract infection with severe sepsis. Severe sepsis related to UTI-- Sepsis was treated with initially with IV Vanco and IV Ceftriaxone. Urine culture grew Citrobacter that is sensitive to Ceftriaxone and Levquin. She has been evaluated by Dr. Carvalho from ID and is recommened for Levaquin for 14 days. Since PO and IV are bioequivalent, I will change to PO for total of 14days. ?Bacteremia Blood cultures fro 06/15 is growing cog neg staph, gram positive cocci#1,gram positive cocci#2 in one manager intel and in another bottle just coag negative staph Repeat blood culture on 06/16 negaive x 2todate. It is likely contamicantion and ID recommend no treatment at this time. She is afebrile and WBC are within normal. Acute respiratory failure related to COPD exacerbation. negative covid. no acute respiratory distress noted. Treated with DuoNeb, continue IV Solu-Medrol . She is doing well and has no apparent symptoms of COPD exacerbation at this time. Will stop steroid since raising sugar level too high Acute toxic metabolic encephalopathy. She is back to her baseline with treatment of underlhing UTI Elevated troponin. No chest pain, no acute changes on EKG. mildly elevated troponin remains flat likely due to infection. No further work up Hypomagnesemia. Repleted and resolved. Diabetes mellitus. Blood sugars have been high due to reduction in insulin when patient was somnolent on admission Hypertension. Stable blood pressure. Continue lisinopril, and metoprolol. Hyperlipidemia. Continue statin. Morbid obesity,advise weight loss to reduce negative health effect on all comordi condition, particulary dm and htn Lactic acidosis related to sepsis resolved home later today or tomorrow Home with previous servicess.
[2020-06-20] MEDS: Heparin Sodium,Porcine 5,000 UNIT/ML VIAL 5000 UNIT SUBCUT (08:52)
[2020-06-20] MEDS: Insulin Glargine,Hum.rec.anlog 100 UNIT/ML 10 ML VIAL 40 UNIT SUBCUT (08:55)
[2020-06-20] MEDS: lisinopriL 5 MG TABLET PO (08:56)
[2020-06-20] MEDS: Insulin Lispro 100 UNIT/ML 3 ML VIAL SUBCUT ×2 (08:56→13:03)
[2020-06-20] MEDS: Metoprolol Tartrate 100 MG TABLET PO (08:56)
[2020-06-20] MEDS: Furosemide 40 MG TABLET PO (08:57)
[2020-06-20] MEDS: Loratadine 10 MG TABLET PO (08:57)
[2020-06-20] MEDS: Aspirin Enteric Coated 81 MG TABLET.DR PO (08:57)
--- NOTE | 2020-06-20 11:27 | MHC.CM.PN ---
Pt cleared to [place] today. CM contacted her daughter Stefany ([phone]) who reported she would be home to receive the pt. Stefany is the pts multimedia technician wound care physician. She reports she will go get the pts meds from the pharmacy prior to her return home. Pt will be transported via [facility] today at 1430 hours.
[2020-06-20 12:00] VITALS: BP 148/72; PULSE 64; RESP 17; TEMP 36.9; O2SAT 94
[2020-06-20 12:41] LABS: Glucose, Whole Blood 295 mg/dL (60-115)
--- NOTE | 2020-06-20 14:00 | PM.DS ---
DS: Providers Provider Date of admission: Date of discharge/Date of Sercice: 06/20/20 Primary care physician: Unknown Physician Consults: 06/18/20 15:37 Consult to Infectious Diseases Routine Consulting Provider: Cookie Benz Reason for consultation: bacteremia Has provider been notified: No DS: Diagnosis Discharge Diagnosis (1) Acute encephalopathy: Status: Resolved Problem details: She has Citrobacter infection urine Bacteremias multiple organsims,likely contamininant (2) Severe sepsis: Status: Resolved (3) UTI (urinary tract infection): Status: Acute (4) Leukocytosis: Status: Resolved (5) Hypomagnesemia: Status: Resolved (6) Elevated troponin: Status: Resolved (7) Elevated lactic acid level: Status: Resolved DS: Medications Discharge Medications Home Medications: Home Medications Medication Instructions Recorded Confirmed Flovent Diskus 2 puff PO BID 06/15/20 07/09/20 Lantus Solostar U-100 Insulin 60 unit SUBCUT DAILY 06/15/20 07/09/20 albuterol sulfate [ProAir HFA] 1 - 2 puff PO Q4-6H PRN 06/15/20 07/09/20 aspirin 1 tab PO DAILY 06/15/20 07/09/20 docusate sodium 1 - 2 cap PO BID PRN 06/15/20 07/09/20 furosemide 40 mg PO BID 06/15/20 07/09/20 insulin lispro [Humalog KwikPen 0 unit SUBCUT TIDAC 06/15/20 07/09/20 Insulin] ipratropium-albuterol 1 vial INHALATION Q4-6H PRN 06/15/20 07/09/20 lisinopril 1 tab PO DAILY 06/15/20 07/09/20 loratadine 1 tab PO DAILY 06/15/20 07/09/20 nystatin 1 appl TOPICAL BID PRN 06/15/20 07/09/20 simvastatin [Zocor] 40 mg PO BEDTIME 06/15/20 07/09/20 gabapentin 300 mg PO TID 07/09/20 07/09/20 metoprolol tartrate 50 mg PO BID 07/09/20 07/09/20 nystatin 1 appl TOPICAL BID 07/09/20 07/09/20 Previous Rx's Medication Instructions Recorded clopidogrel 75 mg PO DAILY #30 tab 06/30/20 DS: Summary Hospital Course Hospital Course: HPI: 69-year-old female with a past medical history of diabetes, hypertension, chronic [place] and UTIs, asthma, COPD, obesity, osteoarthritis, congestive heart failure presenting with generalized weakness, lethargy, nausea, headache. Apparently, the patients [employer] called EMS due to generalized weakness and lethargy. She was lethargic during the interview due to being given ketamine and Haldol due to severe agitation including removal of her IV and oxygen apparently she was crying and seemed very anxious. She had no acute infarction or ischemia. Chest x-ray negative for consolidation or effusion. She was initially noted to be hypoxic with oxygen saturation of 88%. She was placed on 2 L of nasal cannula with good effect. She did have an elevated white blood cell count of 13.0, troponin 35.8 with no acute ischemic changes on EKG. Urinalysis was positive for infection, coronavirus PCR negative. She was given a dose of Rocephin in the ER. She will be admitted further management and treatment of severe sepsis secondary to urinary tract infection and acute metabolic encephalopath. Hospital course by Problems: Severe sepsis related to UTI-- Sepsis was treated with initially with IV Vanco and IV Ceftriaxone. Urine culture grew Citrobacter that is sensitive to Ceftriaxone and Levquin. She has been evaluated by Dr. Carvalho from ID and is recommened for Levaquin for 14 days. Since PO and IV are bioequivalent, I will change to PO for total of 14days. ?Bacteremia Blood cultures fro 06/15 is growing cog neg staph, gram positive cocci#1,gram positive cocci#2 in one flower planter and in another bottle just coag negative staph Repeat blood culture on 06/16 negaive x 2 todate. It is likely contamicantion and ID recommend no treatment at this time. She is afebrile and WBC are within normal. Acute respiratory failure related to COPD exacerbation. negative covid. no acute respiratory distress noted. Treated with DuoNeb, continue IV Solu-Medrol . She is doing well and has no apparent symptoms of COPD exacerbation at this time. Will stop steroid since raising sugar level too high Acute toxic metabolic encephalopathy. She is back to her baseline with treatment of underlhing UTI Elevated troponin. No chest pain, no acute changes on EKG. mildly elevated troponin remains flat likely due to infection. No further work up Hypomagnesemia. Repleted and resolved. Diabetes mellitus. Blood sugars have been high due to reduction in insulin when patient was somnolent on admission Hypertension. Stable blood pressure. Continue lisinopril, and metoprolol. Hyperlipidemia. Continue statin. Morbid obesity,advise weight loss to reduce negative health effect on all comordi condition, particulary dm and htn Lactic acidosis related to sepsis resolved Time Spent with Patient Time attestation: Total time spent providing and/or coordinating discharge services: Physical Exam Vital Signs: Vital Signs: Last Vital Signs Temp 98.5 F 06/20/20 12:00 Pulse 64 06/20/20 12:00 Resp 17 06/20/20 12:00 BP 148/72 H 06/20/20 12:00 Pulse Ox 94 06/20/20 12:00 Body Mass Index 43.9 DS: Data Data Completed and Pending Labs on day of discharge: 06/15/20 13:54 ECG 12 lead EKG Stat EKG Documentation DIRECTED IV insert/maintain .Now Consult Rx Perform Med Rec 1 each MISCELLANE ONCE PRN 06/15/20 13:55 XR chest 1V Stat 06/15/20 14:18 Basic Metabolic Panel Stat Ferritin Stat Lactate Dehydrogenase Stat Liver Panel Stat Magnesium Stat Procalcitonin Stat 06/15/20 14:19 CT head/brain wo con Stat 06/15/20 14:21 Haloperidol Lactate [Haldol] 5 mg IM ONCE ONE 06/15/20 14:39 B Type Natriuretic Peptide Stat Complete Blood Count Auto Diff Stat Lactic Acid Stat Troponin-I High Sensitivity Stat Urine Culture Routine 06/15/20 14:40 Blood Culture X2 [BC] Stat 06/15/20 14:45 SARS-CoV2/FLU/RSV Stat 06/15/20 14:57 cefTRIAXone sodium [Rocephin] 1 gm 0.9 % Sodium Chloride [Ns] 50 ml IV ONCE 06/15/20 15:03 cefTRIAXone sodium [Rocephin] 1 gm .ROUTE .STK-MED ONE 06/15/20 15:06 Ketamine HCl/NS 50 mg IVPUSH ONCE ONE 06/15/20 15:11 ABG (RT) ONCE 06/15/20 15:28 Magnesium Sulfate/D5W 1 gm in 100 ml IV ONCE 06/15/20 15:37 Arterial Blood Gas Routine 12/07/20 16:11 methylPREDNISolone Sod Succ/PF [SOLU-MedroL] 125 mg IVPUSH ONCE ONE 06/15/20 16:50 Code Status Routine Transfer Order Routine 06/15/20 17:30 0.9 % Sodium Chloride [Ns] 1,000 ml IVCONT 75 mls/hr 06/15/20 18:03 Prothrombin Time INR Stat Troponin-I High Sensitivity Stat 06/15/20 18:35 ~Lactic Acid-LAB USE ONLY Stat 06/15/20 Dinner Diabetic Diet 06/15/20 20:30 Acetaminophen [Tylenol] 650 mg PO Q6H PRN Albuterol Sulfate (0.083%) [Ventolin (0.083%)] 2.5 mg INHALE RQ4H WHILE AWAKE ondansetron HCL [Zofran] 4 mg IVPUSH Q8H PRN 06/15/20 20:30 Ambulate QSHIFT WHILE AWAKE Cont. Telemetry w/Vital Sign limit Q4HR IV insert/maintain Q4HR Intake and Output QSHIFTE Pulse Oximetry Q4HR Vital Signs Q4HR 06/15/20 20:51 Glucose, Whole Blood Routine 06/15/20 21:00 Atorvastatin Calcium [Lipitor] 20 mg PO BEDTIME Furosemide [Lasix] 40 mg PO BID Heparin Sodium,Porcine 5,000 unit SUBCUT Q12H Metoprolol Tartrate [Lopressor] 100 mg PO BID methylPREDNISolone Sod Succ/PF [SOLU-MedroL] 40 mg IVPUSH Q8H 06/16/20 00:00 0.9 % Sodium Chloride Flush [NS Flush] 3 ml IVFLUSH QSHIFT 06/16/20 05:41 Basic Metabolic Panel DAILY@0600 Complete Blood Count Auto Diff DAILY@0600 Magnesium Routine 06/16/20 09:00 Aspirin Enteric Coated [Ecotrin] 81 mg PO DAILY Insulin Glargine,Hum.rec.anlog [Lantus] 80 unit SUBCUT DAILY Loratadine [Claritin] 10 mg PO DAILY lisinopriL [Zestril] 5 mg PO DAILY 06/16/20 09:08 Glucose, Whole Blood Routine 06/16/20 10:50 Furosemide [Lasix] 40 mg PO DAILY 06/16/20 11:00 Insulin Glargine,Hum.rec.anlog [Lantus] 40 unit SUBCUT DAILY methylPREDNISolone Sod Succ/PF [SOLU-MedroL] 40 mg IVPUSH Q12H 06/16/20 11:25 Glucose, Whole Blood Routine 06/16/20 13:00 Albuterol Sulfate (0.083%) [Ventolin (0.083%)] 2.5 mg INHALE RQID 06/16/20 14:21 Glucose, blood poc QIDACHS cefTRIAXone sodium [Rocephin] 1 gm .ROUTE .STK-MED ONE 06/16/20 15:00 cefTRIAXone sodium [Rocephin] 1 gm 0.9 % Sodium Chloride [Ns] 50 ml IV Q24H 06/16/20 16:05 Glucose, Whole Blood Routine 06/16/20 16:30 Insulin Lispro [Humalog] See Protocol SUBCUT QIDACHS 06/16/20 17:00 Metoprolol Tartrate [Lopressor] 7.5 mg 0.9 % Sodium Chloride [Ns] 50 ml IV Q6H 06/16/20 17:14 Metoprolol Tartrate [Lopressor] 5 mg .ROUTE .STK-MED ONE 06/16/20 20:40 Glucose, Whole Blood Routine 06/16/20 22:35 Blood Culture X2 [BC] Stat 06/17/20 00:00 vancomycin HCL 750 mg vancomycin HCL 500 mg 0.9 % Sodium Chloride [Ns] 250 ml IV Q12H 06/17/20 00:23 Metoprolol Tartrate [Lopressor] 5 mg .ROUTE .STK-MED ONE vancomycin HCL 750 mg IV .STK-MED ONE 06/17/20 07:52 Glucose, Whole Blood Routine 06/17/20 11:00 Metoprolol Tartrate [Lopressor] 7.5 mg 0.9 % Sodium Chloride [Ns] 50 ml IV Q6H 06/17/20 11:05 ABG (RT) ONCE 06/17/20 11:16 Glucose, Whole Blood Routine 06/17/20 11:23 Arterial Blood Gas Routine 06/17/20 11:26 [place] Bed ONCE Dietitian / Nutrition Consult .Routine 06/17/20 13:16 vancomycin HCL 750 mg IV .STK-MED ONE 06/17/20 16:02 Glucose, Whole Blood Routine 06/17/20 16:10 cefTRIAXone sodium [Rocephin] 1 gm .ROUTE .STK-MED ONE 06/17/20 19:48 Glucose, Whole Blood Routine 06/18/20 07:33 Glucose, Whole Blood Routine 06/18/20 10:51 Basic Metabolic Panel Routine Vancomycin Trough Routine 06/18/20 11:23 Glucose, Whole Blood Routine 06/18/20 13:55 cefTRIAXone sodium [Rocephin] 1 gm .ROUTE .[facility]-MED ONE 06/18/20 16:23 Glucose, Whole Blood Routine 06/18/20 20:57 Glucose, Whole Blood Routine 06/18/20 21:00 Metoprolol Tartrate [Lopressor] 50 mg PO BID 06/19/20 02:07 Dietitian / Nutrition Consult .Routine 06/19/20 07:33 Glucose, Whole Blood Routine 06/19/20 09:08 Metoprolol Tartrate [Lopressor] 50 mg PO ONCE ONE 06/19/20 11:15 Glucose, Whole Blood Routine 06/19/20 14:22 cefTRIAXone sodium [Rocephin] 1 gm .ROUTE .[facility] ONE 06/19/20 16:37 Glucose, Whole Blood Routine 06/19/20 17:00 levoFLOXacin/D5W [Levaquin] 500 mg in 100 ml IV Q24H 06/19/20 17:48 Transfer Order Routine 06/19/20 20:59 Glucose, Whole Blood Routine 06/19/20 21:00 Metoprolol Tartrate [Lopressor] 100 mg PO BID 06/20/20 07:40 Glucose, Whole Blood Routine 06/20/20 12:28 Glucose, Whole Blood Routine Laboratory Last Values WBC 9.7 X10*3/uL (4.8-10.8) 06/16/20 05:41 RBC 5.19 X10*6/uL (4.20-5.50) 06/16/20 05:41 Hgb 15.2 g/dl (12.0-16.0) 06/16/20 05:41 Hct 46.4 % (37-47) 06/16/20 05:41 MCV 89.4 fL (80-98) 06/16/20 05:41 MCH 29.3 pg (27.0-33.0) 06/16/20 05:41 MCHC 32.8 g/dl (31.0-35.0) 06/16/20 05:41 RDW 13.5 % (11.0-16.0) 06/16/20 05:41 Plt Count 198 X10*3/uL (160-400) 06/16/20 05:41 MPV 11.4 fL (9.4-12.3) 06/16/20 05:41 Immature Gran % (Auto) 0.5 % (0.0-0.4) H 06/16/20 05:41 Neut % (Auto) 85.4 % (45-73) H 06/16/20 05:41 Lymph % (Auto) 10.5 % (20-40) L 06/16/20 05:41 [place] % (Auto) 3.5 % (2-11) 06/16/20 05:41 Eos % (Auto) 0.0 % (0-4) 06/16/20 05:41 Baso % (Auto) 0.1 % (0-2) 06/16/20 05:41 Lymph # (Auto) 1.0 X10*3/uL (1.2-4.9) L 06/16/20 05:41 [place] # (Auto) 0.3 X10*3/uL (0.1-1.2) 06/16/20 05:41 Eos # (Auto) 0.0 X10*3/uL (0.0-0.4) 06/16/20 05:41 Baso # (Auto) 0.0 X10*3/uL (0.0-0.2) 06/16/20 05:41 Abs Immat Gran (auto) 0.05 X10*3/uL (0.00-0.03) H 06/16/20 05:41 Absolute Neuts (auto) 8.2 X10*3/uL (2.0-8.3) 06/16/20 05:41 Absolute Nucleated RBC 0.000 X10*3/uL (0.0-0.012) 06/16/20 05:41 Nucleated RBC % (auto) 0.0 /100WBC (0.0-0.2) 06/16/20 05:41 PT 14.7 SEC (10.8-13.0) H 06/15/20 18:03 INR 1.2 (0.9-1.1) H 06/15/20 18:03 ABG pH 7.43 (7.35-7.45) 06/17/20 11:23 ABG pCO2 51 mmhg (32-45) H 06/17/20 11:23 ABG pO2 84 mmhg (83-108) 06/17/20 11:23 ABG HCO3 34 mmol/l (22-26) H 06/17/20 11:23 ABG O2 Saturation 97.1 % 06/17/20 11:23 ABG Base Excess 7.7 06/17/20 11:23 Oxygen Given 3 L 06/17/20 11:23 Sodium 135 mmol/L (135-145) 06/18/20 10:51 Potassium 3.8 mmol/l (3.3-5.1) 06/18/20 10:51 Chloride 91 mmol/L (96-108) L 06/18/20 10:51 Carbon Dioxide 34 mmol/L (22-29) H 06/18/20 10:51 Anion Gap 14 (-) 06/18/20 10:51 BUN 16 mg/dL (9-16) 06/18/20 10:51 Creatinine 0.66 mg/dL (0.5-1.4) 06/18/20 10:51 Estim Creat Clear Calc 94.9 06/18/20 10:51 Estimated GFR > 60 06/18/20 10:51 POC Glucose 295 mg/dL (60-115) H 06/20/20 12:28 Random Glucose 387 mg/dL (60-115) H* 06/18/20 10:51 Lactic Acid 2.5 mmol/L (0.5-2.0) H* 06/15/20 14:39 Lactic Acid Fup @ 2Hr 1.3 mmol/L (0.5-2.0) 06/15/20 18:35 Calcium 8.7 mg/dL (8.4-10.2) 06/18/20 10:51 Magnesium 1.8 mg/dL (1.6-2.6) 06/16/20 05:41 Ferritin 165 ng/mL (10-250) 06/15/20 14:18 Total Bilirubin 0.6 mg/dL (0.0-1.0) 06/15/20 14:18 Direct Bilirubin 0.3 mg/dL (0.0-0.5) 06/15/20 14:18 AST 13 U/L (5-31) 06/15/20 14:18 ALT 26 U/L (0-31) 06/15/20 14:18 Alkaline Phosphatase 105 U/L (39-117) 06/15/20 14:18 Lactate Dehydrogenase 150 U/L (122-220) 06/15/20 14:18 Troponin I High Sens 54.2 ng/L (<3.5-17.0) H D 06/15/20 18:03 B-Natriuretic Peptide 100 pg/mL (<100) 06/15/20 14:39 Total Protein 7.1 g/dL (6.5-8.0) 06/15/20 14:18 Albumin 4.1 g/dL (3.5-5.0) 06/15/20 14:18 Procalcitonin < 0.02 ng/mL 06/15/20 14:18 Urine Color YELLOW 06/15/20 14:18 Urine Appearance CLOUDY 06/15/20 14:18 Urine pH 7.0 (5.0-8.0) 06/15/20 14:18 Ur Specific [place] 1.020 (1.005-1.025) 06/15/20 14:18 Urine Protein 1+ MG/DL (NEG-TRACE) H 06/15/20 14:18 Urine Glucose (UA) NEG MG/DL (NEG) 06/15/20 14:18 Urine Ketones NEG MG/DL (NEG) 06/15/20 14:18 Urine Blood 3+ (NEG) H 06/15/20 14:18 Urine Nitrite POS (NEG) H 06/15/20 14:18 Ur Leukocyte Esterase 3+ (NEG) H 06/15/20 14:18 Urine RBC 5-9 /HPF (0) H 06/15/20 14:18 Urine WBC 50-75 /HPF (0-4) H 06/15/20 14:18 Ur Squamous Epith Cells 2+ /LPF 06/15/20 14:18 Urine Bacteria 4+ /LPF 06/15/20 14:18 Vancomycin Trough 13.2 mcg/mL (10.0-20.0) 06/18/20 10:51 Coronavirus (PCR) NEGATIVE (Negative) 06/15/20 14:45 Influenza Type A (PCR) NEGATIVE (Negative) 06/15/20 14:45 Influenza Type B (PCR) NEGATIVE (Negative) 06/15/20 14:45 RSV RNA Qual (PCR) NEGATIVE (Negative) 06/15/20 14:45 Discharge Plan Discharge Anticipated Discharge Date/Time: 06/20/20 08:26 Patient Disposition: Home Health Service Referrals: Physician,Unknown [Primary Care Provider] - Discharge Medications: Continued furosemide 40 mg tablet 40 mg PO BID RF: 0 ipratropium-albuterol 0.5 mg-3 mg(2.5 mg base)/3 mL solution for nebulization 1 vial inhalation Q4-6H PRN (Reason: Shortness Of Breath) RF: 0 aspirin 81 mg tablet,delayed release (DR/EC) 1 tab PO DAILY RF: 0 simvastatin [Zocor] 40 mg tablet 40 mg PO BEDTIME RF: 0 Flovent Diskus 100 mcg/actuation blister with device 2 puff PO BID RF: 0 docusate sodium 100 mg capsule 1 - 2 cap PO BID PRN (Reason: Constipation) RF: 0 lisinopril 5 mg tablet 1 tab PO DAILY RF: 0 nystatin 100,000 unit/gram powder 1 appl topical BID PRN (Reason: Rash) RF: 0 albuterol sulfate [ProAir HFA] 90 mcg/actuation HFA aerosol inhaler 1 - 2 puff PO Q4-6H PRN (Reason: Shortness Of Breath) RF: 0 loratadine 10 mg tablet 1 tab PO DAILY RF: 0 insulin lispro [Humalog KwikPen Insulin] 100 unit/mL insulin pen 0 unit subcut TIDAC RF: 0 Lantus Solostar U-100 Insulin 100 unit/mL (3 mL) insulin pen 60 unit subcut DAILY RF: 0 No Action clopidogrel 75 mg Tablet 75 mg PO DAILY Qty: 30 RF: 0 gabapentin 300 mg Capsule 300 mg PO TID RF: 0 nystatin 100,000 unit/gram Cream 1 appl TOPICAL BID RF: 0 metoprolol tartrate 100 mg Tablet 50 mg PO BID RF: 0 Discharge Orders: Discharge Order (Routine); Ordered 06/20/20 Ordered By: Juanjose Demarco Diet: diabetic diet Activity on Discharge: As tolerated Discharge Date/Time: 06/20/20 15:48 Visit Report Forms: Patient Portal Discharge page Care Plan Goals: Recovery from sepsis Health Concerns: UTI leading to encephalopathy Plan of Treatment: Take Levaquin as directed and follow up with your Doctor in a week
[2020-06-22 08:29] LABS: Glucose, Whole Blood 246 mg/dL (60-115)
== END 2020-06-20 15:48 | disposition home health service (06) | DRG 698 ==
LOC: HO.ED 15:35 → HO.IMC 19:14 → HO.S3 06-19 18:20
PROVIDERS: Internal Medicine; Nurse Practitioner Acute Care; Nurse Practitioner Family; Admitting Provider Hospitalist; Emergency Provider Emergency Medicine; Visit Provider Internal Medicine
DX: T83.511A Infection and inflammatory reaction due to indwelling urethral catheter, initial encounter (principal); A41.9 Sepsis, unspecified organism; G92 Toxic encephalopathy; J96.00 Acute respiratory failure, unspecified whether with hypoxia or hypercapnia; R65.20 Severe sepsis without septic shock; Z68.41 Body mass index [BMI] 40.0-44.9, adult; J44.1 Chronic obstructive pulmonary disease with (acute) exacerbation; N39.0 Urinary tract infection, site not specified; Z96.0 Presence of urogenital implants; E78.5 Hyperlipidemia, unspecified; Z99.3 Dependence on wheelchair; Z87.440 Personal history of urinary (tract) infections; E11.65 Type 2 diabetes mellitus with hyperglycemia; E66.01 Morbid (severe) obesity due to excess calories; Z20.828 Contact with and (suspected) exposure to other viral communicable diseases; E83.42 Hypomagnesemia; Z79.4 Long term (current) use of insulin; Z79.51 Long term (current) use of inhaled steroids; Z79.82 Long term (current) use of aspirin; Z79.899 Other long term (current) drug therapy
CPT/HCPCS: 0241U; 36415; 36600; 70450; 71045; 80048; 80076; 80202; 81001; 82728; 82803; 82947; 83605; 83615; 83735; 83880; 84145; 84484; 85025; 85610; 87040; 87077; 87086; 87147; 87186; 93005; 94640; 96365; 96367; 96372; 96375; 99285; 99291; J0696; J1956; J2405; J2920; J2930; J3370; J3475

== ENCOUNTER 2020-06-29 00:07 | Inpatient (IN) | payer MEDICARE, MEDICAID, SELFPAY ==
[2020-06-29] VITALS (8 sets, daily range): BP systolic 103–145; BP diastolic 48–78; PULSE 68–81; RESP 15–20; TEMP 36.5–36.9; O2SAT 95–98; BMI 43.7
--- NOTE | 2020-06-29 00:32 | ED.EYEPROB ---
HPI - Eye Problem General Chief complaint: General Medical Stated complaint: uti Time Seen by Provider: 06/29/20 00:19 Source: patient, family and EMS Mode of arrival: EMS Limitations: no limitations History of Present Illness HPI Narrative: Diabetes nonambulatory be bed bound recently discharged on 06/20 for UTI and sepsis on Levaquin daily brought here because of problem with vision on the right eye which is going on since the discharge per daughter patient unable to see properly from the right eye and is getting worse when instead of poking herself on the finger she was poking on the glucometer. While eating she was leaving the food on the table confuse in between according to her daughter her right eye was a better eye and had a cataract surgery and left eye was enucleated because of glaucoma and diabetes changes 4 years ago when patient came to the ER patient was confabulating about her right eye vision unable to see where the nurses standing unable to hold the hand. Patient denies any pain in the right eye no other focal deficits Related Data Home Medications Medication Instructions Recorded Confirmed Flovent Diskus 2 puff PO BID 06/15/20 06/29/20 Lantus Solostar U-100 Insulin 80 unit SUBCUT DAILY 06/15/20 06/29/20 albuterol sulfate [ProAir HFA] 1 - 2 puff PO Q4-6H PRN 06/15/20 06/29/20 aspirin 1 tab PO DAILY 06/15/20 06/29/20 docusate sodium 1 - 2 cap PO BID PRN 06/15/20 06/29/20 furosemide 1 tab PO BID 06/15/20 06/29/20 insulin lispro [Humalog KwikPen 0 unit SUBCUT TIDAC 06/15/20 06/29/20 Insulin] ipratropium-albuterol 1 vial INHALATION Q4-6H PRN 06/15/20 06/29/20 lisinopril 1 tab PO DAILY 06/15/20 06/29/20 loratadine 1 tab PO DAILY 06/15/20 06/29/20 metoprolol tartrate 1 tab PO BID 06/15/20 06/29/20 nystatin 1 appl TOPICAL BID PRN 06/15/20 06/29/20 simvastatin [Zocor] 1 tab PO BEDTIME 06/15/20 06/29/20 Previous Rx's Medication Instructions Recorded levofloxacin 500 mg PO Q24H #13 tab 06/20/20 Allergies Allergy/AdvReac Type Severity Reaction Status Date / Time silver sulfadiazine Allergy Unknown UNK Verified 06/29/20 00:20 [From TRINY] Review of Systems Review of Systems: Constitutional : No Weight loss, No Fever, No Chills ENT/Mouth : No sore throat, No Rhinorrhea Eyes: No Eye Pain, No Swelling Cardiovascular : No Chest Pain, no Dyspnea on Exertion, No Orthopnea, No Edema, No Palpitations, no SOB Respiratory : No Cough, No Sputum Gastrointestinal : no Nausea, No Vomiting, No Diarrhea, No abdominal Pain, Musculoskeletal : No joint pain, No Myalgias, No Joint Swelling Skin : No Skin Lesions, No rash Neuro : No Weakness, No Numbness, No Dizziness, No Headache Psych : No Anxiety/Panic, No Depression Heme/Lymph: No Bruising, No Lymphadenopathy Endocrine : No Polyuria, No Polydipsia All other systems reviewed and are negative [facility] Past Medical History Medical History Chronic indwelling Molina catheter Chronic UTI Congestive heart failure COPD (chronic obstructive pulmonary disease) Diabetes Glaucoma Hypertension Obesity Osteoarthritis Severe sepsis Surgical History H/O adenoidectomy H/O enucleation of left eyeball History of tonsillectomy Social History Social History Household Members: Unknown / Unable to assess Housing: Unknown / Unable to assess Alcohol intake: unknown Smoking Status: Unknown if ever smoked Smoked in Last 30 Days: No Use of substances other than those prescribed or required for medical reasons: No Advance Directives: No Advance Directives Information Provided: Yes service: No Current occupational status: disabled Physical Exam Vital Signs: Vital Signs: Last Vital Signs Temp 98.1 F 06/29/20 02:00 Pulse 68 06/29/20 02:00 Resp 20 06/29/20 02:00 BP 138/70 06/29/20 02:00 Pulse Ox 98 06/29/20 02:00 Body Mass Index 43.7 Appearance: Alert. Oriented X3. Obese, No acute distress. Eyes: Left eye enucleated. Right eye normal sized pupil normal reaction visual acuity to light only intra-ocular pressure right eye 14 mm of hg. Conjunctiva normal sclera normal unable to see fundus because patient not able to focus visual field exam: Unable to see on the right side left side patient can see>> left hemianopia from right eye ENT: Pharynx normal. Neck: Normal inspection. Neck supple. CVS: Normal heart rate and rhythm. Pulses normal. Respiratory: No respiratory distress. Breath sounds normal. Abdomen: Soft and nontender. Bowel sounds are present, no mass palpable, no CVA tenderness Skin: Skin warm and dry. Normal skin color. Normal skin turgor. Extremities: No lower extremity edema. Nonambulatory Neuro: Oriented X 3. No motor deficit. No sensory deficit. NIH Stroke Scale Internal: Initial- Upon Arrival Level of Consciousness: Alert Level of Consciousness Questions: Answers both questions correctly Level of Consciousness Commands: Performs both tasks correctly Best Gaze: Normal Visual: Partial hemianopia Facial Palsy: Normal Motor Arm (Right): No drift Motor Arm (Left): No drift Motor Leg (Right): No drift Motor Leg (Left): No drift Limb Ataxia: Absent Sensory: Normal Best Language: No aphasia Dysarthia: Normal Extinction and Inattention: No abnormality Score: 1 Course Course Course Narrative: Patient with subacute right eye vision loss since 06/20 after discharge home per daughter and patient has only right eye , left eye is enucleated patient has left hemianopic vision in right eye workup showed right occipital infarct which is subacute. 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 No other focal deficit Patient already taking aspirin will continue aspirin neurologist to follow in the morning Procedures Procedure Narrative Procedure Narrative: Ultrasound of right eye normal anterior chamber normal Lens, no signs of retinal detachment MDM - Eye Problem MDM Narrative Medical decision making narrative: Patient with left hemianopia from subacute stroke on right occipital area for CT scan etiology is not very clear will do the CTA . Will start patient on aspirin Medical Records Attestation: I reviewed the patient's medical records. Lab Data Attestation: I reviewed the patient's lab results. Result diagrams: 06/29/20 00:55 06/29/20 01:30 Labs: Lab Results 06/29/20 06/29/20 06/29/20 Range/Units 00:55 00:55 01:30 WBC 14.6 H (4.8-10.8) X10*3/uL RBC 5.29 (4.20-5.50) X10*6/uL Hgb 15.5 (12.0-16.0) g/dl Hct 46.1 (37-47) % MCV 87.1 (80-98) fL MCH 29.3 (27.0-33.0) pg MCHC 33.6 (31.0-35.0) g/dl RDW 13.6 (11.0-16.0) % Plt Count 189 (160-400) X10*3/uL MPV 12.0 (9.4-12.3) fL Immature Gran % (Auto) 0.5 H (0.0-0.4) % Neut % (Auto) 71.9 (45-73) % Lymph % (Auto) 17.4 L (20-40) % [place] % (Auto) 8.3 (2-11) % Eos % (Auto) 1.7 (0-4) % Baso % (Auto) 0.2 (0-2) % Lymph # (Auto) 2.5 (1.2-4.9) X10*3/uL [place] # (Auto) 1.2 (0.1-1.2) X10*3/uL Eos # (Auto) 0.3 (0.0-0.4) X10*3/uL Baso # (Auto) 0.0 (0.0-0.2) X10*3/uL Abs Immat Gran (auto) 0.07 H (0.00-0.03) X10*3/uL Absolute Neuts (auto) 10.5 H (2.0-8.3) X10*3/uL Absolute Nucleated RBC 0.000 (0.0-0.012) X10*3/uL Nucleated RBC % (auto) 0.0 (0.0-0.2) /100WBC Sodium Cancelled 135 Potassium Cancelled 4.0 Chloride Cancelled 93 L Carbon Dioxide Cancelled 30 H Anion Gap Cancelled 16 BUN Cancelled 13 Creatinine Cancelled 0.63 Estim Creat Clear Calc Cancelled 122.2 Estimated GFR Cancelled > 60 Random Glucose Cancelled 195 H D Lactic Acid (0.5-2.0) mmol/L Calcium Cancelled 8.7 Total Bilirubin 0.6 (0.0-1.0) mg/dL AST 33 H D (5-31) U/L ALT 29 (0-31) U/L Alkaline Phosphatase 88 (39-117) U/L Total Protein 6.1 L (6.5-8.0) g/dL Albumin 3.7 (3.5-5.0) g/dL Urine Color Urine Appearance Urine pH (5.0-8.0) Ur Specific [place] (1.005-1.025) Urine Protein (NEG-TRACE) MG/DL Urine Glucose (UA) (NEG) MG/DL Urine Ketones (NEG) MG/DL Urine Blood (NEG) Urine Nitrite (NEG) Ur Leukocyte Esterase (NEG) Urine RBC (0) /HPF Urine WBC (0-4) /HPF Ur Squamous Epith Cells /LPF Urine Bacteria /LPF Urine Yeast /HPF Coronavirus (PCR) (Negative) Influenza Type A (PCR) (Negative) Influenza Type B (PCR) (Negative) RSV RNA Qual (PCR) (Negative) 06/29/20 06/29/20 06/29/20 Range/Units 01:30 01:50 03:50 WBC (4.8-10.8) X10*3/uL RBC (4.20-5.50) X10*6/uL Hgb (12.0-16.0) g/dl Hct (37-47) % MCV (80-98) fL MCH (27.0-33.0) pg MCHC (31.0-35.0) g/dl RDW (11.0-16.0) % Plt Count (160-400) X10*3/uL MPV (9.4-12.3) fL Immature Gran % (Auto) (0.0-0.4) % Neut % (Auto) (45-73) % Lymph % (Auto) (20-40) % [place] % (Auto) (2-11) % Eos % (Auto) (0-4) % Baso % (Auto) (0-2) % Lymph # (Auto) (1.2-4.9) X10*3/uL [place] # (Auto) (0.1-1.2) X10*3/uL Eos # (Auto) (0.0-0.4) X10*3/uL Baso # (Auto) (0.0-0.2) X10*3/uL Abs Immat Gran (auto) (0.00-0.03) X10*3/uL Absolute Neuts (auto) (2.0-8.3) X10*3/uL Absolute Nucleated RBC (0.0-0.012) X10*3/uL Nucleated RBC % (auto) (0.0-0.2) /100WBC Sodium Potassium Chloride Carbon Dioxide Anion Gap BUN Creatinine Estim Creat Clear Calc Estimated GFR Random Glucose Lactic Acid 1.7 (0.5-2.0) mmol/L Calcium Total Bilirubin (0.0-1.0) mg/dL AST (5-31) U/L ALT (0-31) U/L Alkaline Phosphatase (39-117) U/L Total Protein (6.5-8.0) g/dL Albumin (3.5-5.0) g/dL Urine Color STRAW Urine Appearance CLEAR Urine pH 6.0 (5.0-8.0) Ur Specific [place] <= 1.005 (1.005-1.025) Urine Protein NEG (NEG-TRACE) MG/DL Urine Glucose (UA) NEG (NEG) MG/DL Urine Ketones NEG (NEG) MG/DL Urine Blood 1+ H (NEG) Urine Nitrite NEG (NEG) Ur Leukocyte Esterase TRACE H (NEG) Urine RBC 0-2 (0) /HPF Urine WBC 0-2 (0-4) /HPF Ur Squamous Epith Cells TRACE /LPF Urine Bacteria NONE /LPF Urine Yeast TRACE /HPF Coronavirus (PCR) NEGATIVE (Negative) Influenza Type A (PCR) NEGATIVE (Negative) Influenza Type B (PCR) NEGATIVE (Negative) RSV RNA Qual (PCR) NEGATIVE (Negative) Discharge Plan Discharge Clinical Impression: Acute CVA (cerebrovascular accident), Vision loss of right eye Patient Disposition: Admitted As Inpatient
--- NOTE | 2020-06-29 00:33 | PC.NURSE ---
pt arrives via ambulance for right eye complaints. 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 pt coming from home where she resides with her daughter. pt is bed bound and has a catheter in place from previous hospitalization for sepsis. pt speaking in clear and full sentences. questionable neuro pt sometimes can follow commands with following objects.
--- NOTE | 2020-06-29 00:45 | CT_ITS ---
EXAMINATION: CT HEAD WITHOUT CONTRAST CLINICAL INFORMATION: Loss of vision. Concern for CVA. COMPARISON: 06/15/2020. TECHNIQUE: Contiguous helical images of the brain were obtained without IV contrast. Multiplanar reconstructions were performed. DLP: 733 mGy-cm. FINDINGS: There are no pathologic extra-axial fluid collections. The lateral, third, fourth ventricles are mildly prominent, though stable, age-appropriate and concordant with the appearance of the sulci. There is right occipital cortical and subcortical low-attenuation patient intake representative of an acute to subacute infarction. There is neither mass nor mass effect. There is no shift of midline structures. The paranasal sinuses and mastoid air cells are clear. There are no osseous lesions. CT/CT head/brain wo con IMPRESSION: Right occipital lobe acute to subacute infarction. The aforementioned was communicated to Dr. Crain at 0143 hours. Automated exposure control (Care Dose) Adjustment of the mA and/or kv according to patient size (this includes techniques or standardized protocols for targeted exams where dose is matched to indication / reason for exam; i.e. extremities or head).
[2020-06-29 01:00] LABS: Basophils Percent Auto 0.2 % (0-2); Eosinophils Absolute Auto 0.3 X10*3/uL (0.0-0.4); Eosinophils Percent Auto 1.7 % (0-4); Hematocrit 46.1 % (37-47); Hemoglobin 15.5 g/dl (12.0-16.0); Imm Gran Abs Auto 0.07 X10*3/uL (0.00-0.03); Imm Gran Pct Auto 0.5 % (0.0-0.4); Lymphocytes Absolute Auto 2.5 X10*3/uL (1.2-4.9); Lymphocytes Percent Auto 17.4 % (20-40); MANUAL DIFF FLAG NO; Mean Corpuscular HGB Conc 33.6 g/dl (31.0-35.0); Mean Corpuscular Hemoglobin 29.3 pg (27.0-33.0); Mean Corpuscular Volume 87.1 fL (80-98); Monocytes Absolute Auto 1.2 X10*3/uL (0.1-1.2); Monocytes Percent Auto 8.3 % (2-11); Neutrophils Absolute Auto 10.5 X10*3/uL (2.0-8.3); Neutrophils Percent Auto 71.9 % (45-73); Platelet Count 189 X10*3/uL (160-400); Red Blood Count 5.29 X10*6/uL (4.20-5.50); Red Cell Distribution Width 13.6 % (11.0-16.0); White Blood Count 14.6 X10*3/uL (4.8-10.8)
--- NOTE | 2020-06-29 01:05 | PC.NURSE ---
pt lined and labbed, pending ct scan. pt urine collection bag for rai changed with new bag to obtain clean catch. pt tolerated iv well.
[2020-06-29 01:38] LABS: Appearance Urine CLEAR; Color Urine STRAW; Glucose Urine UA NEG (NEG); Leukocyte Esterase Urine TRACE (NEG); Nitrite Urine NEG (NEG); Specific Gravity - Urine <= 1.005 (1.005-1.025); Urine Blood 1+ (NEG); Urine Ketones NEG (NEG); Urine Protein NEG (NEG-TRACE)
[2020-06-29 01:44] LABS: RBC Urine 0-2 /HPF (0); Squamous Epithelial Cell Urine TRACE /LPF; WBC Urine 0-2 /HPF (0-4)
--- NOTE | 2020-06-29 01:48 | PC.NURSE ---
visual exam shows that patient can not see towards the right. when asked to state what object was in right side of view she was unable to see. But patient was able to see object on left side.
--- NOTE | 2020-06-29 01:53 | CT_ITS ---
CT ANGIOGRAM NECK WITH CONTRAST CT ANGIOGRAM BRAIN WITH CONTRAST CLINICAL INFORMATION: Right occipital CVA. COMPARISON: Head CT performed earlier the same day. TECHNIQUE: Test bolus sequences followed by intravenous administration 70 mL of Omnipaque 350. Helical imaging was performed in the axial plane from the thoracic inlet to the skull vertex. Delayed postcontrast imaging of the head was also performed. The data was processed at the histotechnologist supervisor workstation for generation of MIP sequences. Angled MIPs and volume rendered reformatted images were also generated at an offline 3D workstation under concurrent supervision. Stenoses are assessed in accordance with NASCET criteria unless otherwise indicated. This CT examination was performed using dose optimization techniques as appropriate, variously including the following: *Automated exposure control *Adjustment of mA and/or kV according to patient size (this includes techniques or standardized protocols for targeted exams where dose is matched to indication/reason for exam; i.e. extremities or head) *Use of iterative reconstruction technique FINDINGS: BRAIN: A subacute appearing right occipital lobe infarct is again noted. There is global cerebral volume loss and there is moderate chronic microangiopathy. There is no intracranial hemorrhage, hydrocephalus, extra-axial surface collection, midline shift, or other herniation pattern. [place] to white matter differentiation is diffusely maintained without evidence of an evolved acute territorial infarct. The basilar cisterns are preserved. No significant soft tissue abnormality. No acute osseous abnormality. The paranasal sinuses and the mastoid air cells are well aerated.] Left-sided intraocular silicone. 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 NECK CTA: [There is a classic 3 vessel configuration of the aortic arch. Proximal arch vessels are non-stenotic. The vertebral arteries are codominant. No significant ostial stenosis is visualized on either side. Both vertebral arteries are widely patent throughout their extracranial cervical course. Both common carotid arteries are normal in course and caliber.] There is evidence is chronic calcification involving the carotid bifurcations bilaterally without significant stenosis involving the proximal internal carotid arteries on either side. BRAIN CTA: [There is normal opacification of major intracranial arteries. No focal flow-limiting stenosis nor discrete proximal large artery occlusion. No aneurysm. Timing of the contrast bolus allows assessment of the major dural venous sinuses, which all opacify normally] CT/CT angio head neck IMPRESSION: - A subacute appearing right occipital lobe infarct is again noted. There is global cerebral volume loss and there is moderate chronic microangiopathy. - No acute arterial occlusions and no significant arterial stenoses within the head or neck. 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 This mass has been previously biopsied. This CTA result was discussed with Dr. Gregg by Dr. Burns at 3:35 AM on 06/29/2020.
--- NOTE | 2020-06-29 01:55 | ECG_ITS ---
Test Reason : NEW CVA Blood Pressure : / mmHG Vent. Rate : 069 BPM Atrial Rate : 069 BPM P-R Int : 206 ms QRS Dur : 094 ms QT Int : 420 ms P-R-T Axes : 025 -16 083 degrees QTc Int : 450 ms Normal sinus rhythm Moderate voltage criteria for LVH, may be normal variant Cannot rule out Septal infarct (cited on or before 15-JUN-2020) Abnormal ECG When compared with ECG of 15-JUN-2020 15:51, Premature atrial complexes are no longer Present Questionable change in initial forces of Septal leads Referred By: Ari Crain Electronically Signed By:CAMERON HO MD
[2020-06-29 02:10] LABS: Alanine Aminotransferase 29 U/L (0-31); Albumin Level 3.7 g/dL (3.5-5.0); Alkaline Phosphatase 88 U/L (39-117); Anion Gap 16 (12-20); Aspartate Amino Transferase 33 U/L (5-31); Bilirubin Total 0.6 mg/dL (0.0-1.0); Blood Urea Nitrogen 13 mg/dL (9-16); Calcium 8.7 mg/dL (8.4-10.2); Carbon Dioxide 30 mmol/L (22-29); Chloride 93 mmol/L (96-108); Creatinine Clr Calc Pharmacy 122.2; Estimated Glomerular Filt Rate > 60; Glucose Random 195 mg/dL (60-115); Sodium 135 mmol/L (135-145); Total Protein 6.1 g/dL (6.5-8.0)
[2020-06-29] MEDS: Aspirin 325 MG TABLET PO (02:10)
[2020-06-29 02:18] LABS: Lactic Acid 1.7 mmol/L (0.5-2.0)
[2020-06-29] MEDS: iohexoL 350 MG/ML 100 ML INFUS..BTL 70 ML IV (03:21)
--- NOTE | 2020-06-29 03:43 | XR_ITS ---
EXAMINATION: CHEST 1 VIEW CLINICAL INFORMATION: Altered mental status. COMPARISON: 09/11/2019. TECHNIQUE: An AP view of the chest is provided. FINDINGS: The cardiac silhouette is not enlarged. The mediastinal and hilar contours are unremarkable. There are neither pleural effusions nor pneumothoraces. There are no consolidations. The osseous structures are stable. XR/XR chest 1V IMPRESSION: No evidence for acute disease.
--- NOTE | 2020-06-29 03:45 | PC.NURSE ---
plan for admission.
[2020-06-29 04:35] LABS: Influenza A PCR NEGATIVE (Negative); Influenza B PCR NEGATIVE (Negative); Resp Syncy Virus RNA Qual PCR NEGATIVE (Negative); SARS COV2 PCR INHOUSE NEGATIVE (Negative)
--- NOTE | 2020-06-29 04:44 | PC.NURSE ---
REPOSITIONED PATIENT TO LEFT SIDE. PATIENT STATES SHE HAS A BED SORE. LARGE RED, NON-BLANCHABLE AREA OVER COCCYX AND BILATERAL BUTTOCKS NOTED. PATIENT'S PRIMARY RN AWARE. PATIENT EDUCATED THAT SHE SHOULD BE CHANGING POSITION AT LEAST EVERY TWO HOURS.
--- NOTE | 2020-06-29 06:27 | PC.NURSE ---
hospitalist at bedside.
--- NOTE | 2020-06-29 06:28 | PC.NURSE ---
pt repositioned to right side.
--- NOTE | 2020-06-29 06:42 | PM.IMHP ---
History of Present Illness Date of Service: 06/29/20 Chief Complaint: Vision disturbance This is a 69-year-old female with past medical history of diabetes, hypertension, chronic Molina and UTIs, asthma, COPD, obesity, osteoarthritis, congestive heart failure, presenting with visual disturbances. Patient reports that her symptoms started while she was in the hospital recently, she was discharged on 20 of June after being managed for acute UTI causing sepsis. Patient reports that at that time she also experiences slurred speech noticed by her daughter but she did not mention it to anybody. She also reports visual disturbances where she feels like she is actually having visual hallucinations. She is unable to see the left side of her visual field. 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 But reports that she had no issues with seeing the left side of her vision prior to 2 weeks. Her daughter also reported that now patient is unable to see some of the food in front of her and leaves it on the table. Patient denies any weakness in her arms or legs, she she also feels that her visual disturbances are improving as compared to 2 weeks ago. She has no slurred speech currently, no weakness in the arms or legs, no tingling, no numbness. She reports that she has 4 more doses of her antibiotics for the treatment of her UTI she was also treated for COPD exacerbation on the previous admission and and has completed her steroid taper pain She otherwise denies any chest pain, shortness of breath, cough, no sputum production, no abdominal pain nausea or vomiting, no diarrhea constipation. Currently has no urinary symptoms and no lower extremity edema. On arrival to the ED hemodynamically stable with no significant abnormal vitals Labs are significant for WBC count of otherwise unremarkable. CT of the head shows right occipital lobe acute to subacute infarction. This was not present on head CT done on 06/15. CT head and neck angiogram results pending Past medical history: Chronic indwelling Molina catheter, chronic UTI, congestive heart failure, COPD, diabetes, glaucoma, hypertension, obesity, osteoarthritis Surgical history: History of inoculation of left eyeball, adenoidectomy, tonsillectomy Family history: Denies Social history: Lives with daughter, uses a roller, denies any tobacco alcohol or illicit drug Review of Systems Review of Systems: Yes all other systems are reviewed and are negative [facility] Medical History Chronic indwelling Molina catheter Chronic UTI Congestive heart failure COPD (chronic obstructive pulmonary disease) Diabetes Glaucoma Hypertension Obesity Osteoarthritis Severe sepsis Surgical History H/O adenoidectomy H/O enucleation of left eyeball History of tonsillectomy Social History Household Members: Unknown / Unable to assess Housing: Unknown / Unable to assess Alcohol intake: unknown Smoking Status: Unknown if ever smoked Smoked in Last 30 Days: No Use of substances other than those prescribed or required for medical reasons: No Advance Directives: No Advance Directives Information Provided: Yes service: No Current occupational status: disabled Meds Allergies Allergy/AdvReac Type Severity Reaction Status Date / Time silver sulfadiazine Allergy Unknown UNK Verified 06/29/20 00:20 [From [facility] [place]] Home Medications Medication Instructions Recorded Confirmed Type Flovent Diskus 2 puff PO BID 06/15/20 06/29/20 History Lantus Solostar U-100 Insulin 80 unit SUBCUT DAILY 06/15/20 06/29/20 History albuterol sulfate [ProAir HFA] 1 - 2 puff PO Q4-6H PRN 06/15/20 06/29/20 History aspirin 1 tab PO DAILY 06/15/20 06/29/20 History docusate sodium 1 - 2 cap PO BID PRN 06/15/20 06/29/20 History furosemide 1 tab PO BID 06/15/20 06/29/20 History insulin lispro [Humalog KwikPen 0 unit SUBCUT TIDAC 06/15/20 06/29/20 History Insulin] ipratropium-albuterol 1 vial INHALATION Q4-6H PRN 06/15/20 06/29/20 History lisinopril 1 tab PO DAILY 06/15/20 06/29/20 History loratadine 1 tab PO DAILY 06/15/20 06/29/20 History metoprolol tartrate 1 tab PO BID 06/15/20 06/29/20 History nystatin 1 appl TOPICAL BID PRN 06/15/20 06/29/20 History simvastatin [Zocor] 1 tab PO BEDTIME 06/15/20 06/29/20 History Physical Exam Vital Signs and Narrative: Vital Signs: Last Vital Signs Temp 97.9 F 06/29/20 06:00 Pulse 68 06/29/20 06:00 Resp 15 06/29/20 06:00 BP 135/66 06/29/20 06:00 Pulse Ox 97 06/29/20 06:00 Body Mass Index 43.7 Const: General: cooperative and no acute distress Orientation/consciousness: patient oriented x3 Eyes: Other: Absence of left eye, left hemianopia Resp: Effort & Inspection: normal respiratory effort and able to speak in complete sentences Auscultation: clear to auscultation bilaterally Cardio: Rate: regular rate Rhythm: regular rhythm GI: Palpation (GI): Soft to palpation Auscultation: normal bowel sounds Neuro: Other: Left hemianopia, strength is 5/5 in all extremities, no slurred speech General: patient oriented x3 Cognition (Neuro): normal cognition Extrem: General: Yes normal to inspection and Yes no pedal edema Results Labs CBC and Chem 7: 06/29/20 00:55 06/29/20 01:30 Labs: Laboratory Results - last 24 hr 06/29/20 06/29/20 06/29/20 00:55 00:55 01:30 MCV 87.1 MCH 29.3 MCHC 33.6 RDW 13.6 Plt Count 189 MPV 12.0 Immature Gran % (Auto) 0.5 H Neut % (Auto) 71.9 Lymph % (Auto) 17.4 L Stewart % (Auto) 8.3 Eos % (Auto) 1.7 Baso % (Auto) 0.2 Lymph # (Auto) 2.5 Stewart # (Auto) 1.2 Eos # (Auto) 0.3 Baso # (Auto) 0.0 Abs Immat Gran (auto) 0.07 H Absolute Neuts (auto) 10.5 H Absolute Nucleated RBC 0.000 Nucleated RBC % (auto) 0.0 Anion Gap Cancelled 16 Estim Creat Clear Calc Cancelled 122.2 Estimated GFR Cancelled > 60 Random Glucose Cancelled 195 H D Lactic Acid Calcium Cancelled 8.7 Total Bilirubin 0.6 AST 33 H D ALT 29 Alkaline Phosphatase 88 Total Protein 6.1 L Albumin 3.7 Urine Color Urine Appearance Urine pH Ur Specific [place] Urine Protein Urine Glucose (UA) Urine Ketones Urine Blood Urine Nitrite Ur Leukocyte Esterase Urine RBC Urine WBC Ur Squamous Epith Cells Urine Bacteria Urine Yeast Coronavirus (PCR) Influenza Type A (PCR) Influenza Type B (PCR) RSV RNA Qual (PCR) 06/29/20 06/29/20 06/29/20 01:30 01:50 03:50 MCV MCH MCHC RDW Plt Count MPV Immature Gran % (Auto) Neut % (Auto) Lymph % (Auto) Stewart % (Auto) Eos % (Auto) Baso % (Auto) Lymph # (Auto) Stewart # (Auto) Eos # (Auto) Baso # (Auto) Abs Immat Gran (auto) Absolute Neuts (auto) Absolute Nucleated RBC Nucleated RBC % (auto) Anion Gap Estim Creat Clear Calc Estimated GFR Random Glucose Lactic Acid 1.7 Calcium Total Bilirubin AST ALT Alkaline Phosphatase Total Protein Albumin Urine Color STRAW Urine Appearance CLEAR Urine pH 6.0 Ur Specific [place] <= 1.005 Urine Protein NEG Urine Glucose (UA) NEG Urine Ketones NEG Urine Blood 1+ H Urine Nitrite NEG Ur Leukocyte Esterase TRACE H Urine RBC 0-2 Urine WBC 0-2 Ur Squamous Epith Cells TRACE Urine Bacteria NONE Urine Yeast TRACE Coronavirus (PCR) NEGATIVE Influenza Type A (PCR) NEGATIVE Influenza Type B (PCR) NEGATIVE RSV RNA Qual (PCR) NEGATIVE Imaging Radiologist's Impressions: Impressions Head CT 06/29/20 00:45 IMPRESSION: Right occipital lobe acute to subacute infarction. The aforementioned was communicated to Dr. Crain at 0143 hours. Automated exposure control (Care Dose) Adjustment of the mA and/or kv according to patient size (this includes techniques or standardized protocols for targeted exams where dose is matched to indication / reason for exam; i.e. extremities or head). Chest X-Ray 06/29/20 03:43 IMPRESSION: No evidence for acute disease. Assessment and Plan (1) Acute CVA (cerebrovascular accident): Status: Acute (2) Vision loss of right eye: Status: Acute (3) UTI (urinary tract infection): Status: Acute (4) Diabetes: Status: Acute 69-year-old female who presents to the hospital with vision loss found to have acute stroke # acute CVA - timeline appears to be over 2 weeks - has no neurological deficits besides the left hemianopia Plan: - will admit to telemetry - CT angiogram of head and neck pending - neurology consult and will hold off on ordering MRI until evaluated by Neurology - echocardiogram - patient on aspirin ready, I will continue, will start high-dose statin # Left hemianopsia - most likely secondary to a CVA - statin and aspirin as above # diabetes - continue home insulin - diabetic diet - low-dose sliding sling # hypertension - continue home management DVT prophylaxis: Heparin subQ
--- NOTE | 2020-06-29 07:11 | PC.NURSE ---
report taken from isis blackmon pt sitting up in bed at this time, nad. awaiting inpt admission d/t subacute infarct. rai in place, patent and draining. repositioning pt q 2 hrs d/t pressure wound.
[2020-06-29 08:36] LABS: Glucose, Whole Blood 149 mg/dL (60-115)
--- NOTE | 2020-06-29 08:44 | PC.NURSE ---
Addendum entered by Ole Saldivar 06/29/20 08:48: pt daughter santosh updated about plan of care, first call for report to imc unsuccessful Original Note: pt repositioned, poc glucose 149
[2020-06-29] MEDS: 0.9 % Sodium Chloride Flush 3 ML SYRINGE IVFLUSH ×3 (09:22→23:19)
[2020-06-29] MEDS: Insulin Glargine,Hum.rec.anlog 100 UNIT/ML 10 ML VIAL 80 UNIT SUBCUT (09:23)
[2020-06-29] MEDS: Atorvastatin Calcium 80 MG TABLET PO (09:23)
[2020-06-29] MEDS: Furosemide 40 MG TABLET PO ×2 (09:23→23:19)
[2020-06-29] MEDS: lisinopriL 5 MG TABLET PO (09:23)
[2020-06-29] MEDS: Metoprolol Tartrate 100 MG TABLET PO ×2 (09:23→23:19)
[2020-06-29] MEDS: levoFLOXacin 500 MG TABLET PO (09:23)
[2020-06-29] MEDS: Loratadine 10 MG TABLET PO (09:23)
[2020-06-29] MEDS: Heparin Sodium,Porcine 5,000 UNIT/ML VIAL 5000 UNIT SUBCUT ×2 (09:24→17:19)
--- NOTE | 2020-06-29 09:58 | PC.NURSE ---
late entry: 09:20, pt able to tolerate and swallow water w straw out of cup. made 3 patent swallows before attempting po medications. pt tolerated po medication w/o issue.
--- NOTE | 2020-06-29 10:00 | CA_ITS ---
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 Normal LV systolic function with mild LVH with impaired relaxation filling pattern 2. Moderately calcified aortic valve with increased gradient but aortic valve area is not accurately calculated on this study 3. Moderate mitral annular calcification 4. No gross pericardial effusion Findings Procedure Information Contrast agent, definity, is being given per protocol without apparent complications. Left Ventricle Normal left ventricular cavity size. There is mildly increased left ventricular wall thickness. The left ventricular systolic function is normal. The visually estimated ejection fraction is between 60-65%. Regional wall motion abnormalities can not be excluded due to suboptimal endocardial definition. Spectral Doppler is indicative of an impaired relaxation filling pattern. E/E prime ratio is between 8 and 15 consistent with indeterminate filling pressures. Right Ventricle Normal right ventricular cavity size. Atria The left atrium was not well visualized. The right atrium was not well visualized. Aortic Valve The aortic valve was not well visualized. There is moderate calcification of the aortic valve. Mitral Valve There is moderate anterior and posterior mitral leaflet thickening. There is moderate mitral annular calcification. There is trace mitral valve regurgitation. There is no mitral valve stenosis. Pulmonic Valve The pulmonic valve was not well visualized. Tricuspid Valve The tricuspid valve was not well visualized. Great Vessels The aorta was not well visualized. The pulmonary artery was not well visualized. Venous The inferior vena cava was not well visualized. Pericardium/Pleural There is no evidence of pericardial effusion. Prior Study Comparison Changes noted compared to prior study dated: 07/12/2018. gradient across aortic valve increased but valve area is not accurately calculated on this study Measurements 2D Linear Measurements LVIDd: 3.39 3.9-5.3/4.2-5.9 cm LVIDd Index: 3.81 2.4-3.2/2.2-3.1 cm/m2 LVIDs: 2.63 2.0-3.6 cm Ao Root: 2.80 2.1-3.5 cm LVOT Diam: 2.10 3.0+(-)1.3 cm Mitral Valve MV VTI: 0.36 MV Pk Bakari: 1.09 MV Mn Bakari: 0.67 MV Pk Grad: 5.00 MV Mn Grad: 2.00 MV Pk E: 0.92 MV PK A: 1.10 MV Decel Time: 363.00 E/A: 0.80 PHT: 125.00 MVA PHT: 1.76 MVA Continuity: 3.80 Decel [place]: 2.57 Aortic Valve AoV Pk Bakari: 2.68 AoV Mn Bakari: 1.94 AoV VTI: 0.49 AoV Pk Grad: 29.00 Aov Mn Grad: 18.00 BARBIE Cont.VTI: 2.85 LVOT LVOT Pk Bakari: 1.99 LVOT Mn Bakari: 1.48 LVOT VTI: 0.40 LVOT Pk Grad: 16.00 LVOT Mn Grad: 10.00 LVOT Diam: 2.10 LVOT Area: 3.46 Diastolic Function MV Pk E: 0.92 MV Pk A: 1.10 E/A: 0.80 Great Vessels Aorta Ao Root-2D: 2.80 2.0-3.7 cm Updated in Other Vendor System with Status of Final Aaron Acosta MD electronically signed on 06/29/2020 4:48:37 PM with status of Final
--- NOTE | 2020-06-29 10:45 | PM.NEUROCN ---
History of Present Illness Data of Consult Service Date: 06/29/20 Primary Care Provider: Unknown Physician 69 years old woman with obesity, diabetes, loss of left eye, glaucoma and hypertension who came to hospital with change in her vision in right eye. Exact onset was unclear and probably happen a day or few days before she came to hospital. There was no associated headache or speech or language difficulty or new focal weakness. There is no history of trauma. Review of Systems Review of Systems: No recent cold or flu-like illness, seizure, chest pain shortness of breath, exposure to new medicine or headache. [facility] Past Medical History Medical History (Updated 06/29/20 @ 10:50 by Susanne Castro MD) Chronic indwelling Molina catheter Chronic UTI Congestive heart failure COPD (chronic obstructive pulmonary disease) Diabetes Glaucoma Hypertension Obesity Osteoarthritis Severe sepsis Surgical History Surgical History H/O adenoidectomy H/O enucleation of left eyeball History of tonsillectomy Social History Social History Household Members: Family Housing: House Do you presently have visiting nurse or other home services: Yes Alcohol intake: unknown Smoking Status: Never smoker Smoked in Last 30 Days: No Patient Interested in Nicotine Replacement: No Patient Given Instructions on How to Stop Smoking: No Second Hand Smoke Exposure: No Use of substances other than those prescribed or required for medical reasons: No Have you been hit, kicked, punched, or otherwise hurt by someone within the past year? If so, by whom?: No Do you feel safe in your current relationship?: Yes Is there a partner from a previous relationship who is making you feel unsafe now?: No Are you made to feel afraid or neglected: No Advance Directives: No Advance Directives Information Provided: Yes Do you have thoughts of harming others: None service: No Current occupational status: disabled Meds Allergies Allergy/AdvReac Type Severity Reaction Status Date / Time silver sulfadiazine Allergy Unknown UNK Verified 06/29/20 00:20 [From [facility]] Home Medications Medication Instructions Recorded Confirmed Type Flovent Diskus 2 puff PO BID 06/15/20 06/29/20 History Lantus Solostar U-100 Insulin 80 unit SUBCUT DAILY 06/15/20 06/29/20 History albuterol sulfate [ProAir HFA] 1 - 2 puff PO Q4-6H PRN 06/15/20 06/29/20 History aspirin 1 tab PO DAILY 06/15/20 06/29/20 History docusate sodium 1 - 2 cap PO BID PRN 06/15/20 06/29/20 History furosemide 1 tab PO BID 06/15/20 06/29/20 History insulin lispro [Humalog KwikPen 0 unit SUBCUT TIDAC 06/15/20 06/29/20 History Insulin] ipratropium-albuterol 1 vial INHALATION Q4-6H PRN 06/15/20 06/29/20 History lisinopril 1 tab PO DAILY 06/15/20 06/29/20 History loratadine 1 tab PO DAILY 06/15/20 06/29/20 History metoprolol tartrate 1 tab PO BID 06/15/20 06/29/20 History nystatin 1 appl TOPICAL BID PRN 06/15/20 06/29/20 History simvastatin [Zocor] 1 tab PO BEDTIME 06/15/20 06/29/20 History Physical Exam Vital Signs: Vital Signs: Last Vital Signs Temp 97.9 F 06/29/20 06:00 Pulse 81 06/29/20 09:23 Resp 15 06/29/20 06:00 BP 135/66 06/29/20 09:23 Pulse Ox 97 06/29/20 06:00 Body Mass Index 43.7 Alert and awake with normal spontaneity of speech fluency comprehension and affect. Left eye was closed and she said that she had lost that eye. Right pupil was round reactive and external ocular muscles were intact. Visual ruiz seem to be full to threat. There was mild left-sided facial weakness. There was no obvious arm weakness. Deep tendon reflexes were absent with flexor plantars. Scaly dry rash was noted in feet and forelegs. Results Labs CBC & Chem 7: 06/29/20 00:55 06/29/20 01:30 Labs: Short CBC 06/29/20 Range/Units 00:55 WBC 14.6 H (4.8-10.8) X10*3/uL Hgb 15.5 (12.0-16.0) g/dl Hct 46.1 (37-47) % Plt Count 189 (160-400) X10*3/uL BMP 06/29/20 06/29/20 00:55 01:30 Sodium Cancelled 135 Potassium Cancelled 4.0 Chloride Cancelled 93 L Carbon Dioxide Cancelled 30 H BUN Cancelled 13 Creatinine Cancelled 0.63 Calcium Cancelled 8.7 Liver Function 06/29/20 Range/Units 01:30 Total Bilirubin 0.6 (0.0-1.0) mg/dL AST 33 H D (5-31) U/L ALT 29 (0-31) U/L Alkaline Phosphatase 88 (39-117) U/L Albumin 3.7 (3.5-5.0) g/dL Urine 06/29/20 Range/Units 01:30 Urine Color STRAW Urine Appearance CLEAR Urine pH 6.0 (5.0-8.0) Ur Specific [place] <= 1.005 (1.005-1.025) Urine Protein NEG (NEG-TRACE) MG/DL Urine Glucose (UA) NEG (NEG) MG/DL Her noncontrast head CT revealed a large right parieto-occipital infarct more in posterior cerebral artery territory. It was probably subacute in nature. [id number] diffuse cerebral atrophy was noted. CTA did not reveal any large vessel disease. Chest x-ray did not reveal any significant abnormality. EKG reveals sinus rhythm. Assessment and Plan (1) Cerebral infarction: Status: Acute 69 years old woman with prior history of loss of left eye and multiple other vascular risk factors presented with visual changes that started probably few days prior to admission. Her head CT revealed a subacute right posterior cerebral artery infarct with no large vessel disease. Cardiac rhythm was sinus. Likely cause of this was arterial or cardiac source of embolism. At this time recommendation is to give aspirin 81 mg daily and Plavix 75 mg daily for a month and then discontinue Plavix. Echocardiogram is recommended to assess cardiac function or rule out cardiomyopathy. If any conditions putting her at risk for cardiac source of embolism is noted, anticoagulation is recommended. PT and OT consultation is recommended for appropriate guidance. This would definitely further decrease her ability to do day-to-day things as she did not have his left eye.
--- NOTE | 2020-06-29 10:47 | MHC.STROKE ---
0007 ARRIVED VIA EMS, RIGHT EYE VISUAL DISTURBANCE. ONSET OF SYMPTOMS UNCLEAR APPROX. 06/25/20 5 DAYS AGO SHE NOTICED OBJECTS ON HER RIGHT EYE MELTING AND SHE HAD TROUBLE SEEING. CT HEAD REVEALED A RIGHT OCCIPITAL ISCHEMIC STROKE. CTA H/N NO LVO. NIHSS = 1 FOR VISUAL LOSS. EXCLUDED FROM TPA DUE TO UNKNOWN ONSET. I MET WITH THE PATIENT TODAY TO DISCUSS HER DIAGNOSIS, AND LOCATION OF THE STROKE IT RELATES TO HER DEFICIT. I DID PROVIDE SOME ENCOURAGEMENT AND INFORMED HER THAT SHE COULD SWALLOW, SPEAK , MOVE ALL HER EXTREMITIES AND HER MIND WAS CLEAR. I PROVIDED REASSURANCE. I REVIEWED HER RISK FACTORS FOR STROKE AND DR MARTIN ROUNDED. HE SAID HER PROGNOSIS IS THAT SHE MAY REGAIN SOME OF THAT SIGHT. SHE ALREADY HAS NO LEFT EYE (THAT WAS REMOVED), SHE DOES NOT AMBULATE, SHE USES A [employer] LIFT TO GET INTO HER CHAIR AT HOME. HER DAUGHTER TAKES CARE OF HER BUT SHE WILL REQUIRE REHAB AT HOME WITH OT TO HELP WITH HER VISION LOSS. SHE IS ON A ANTIPLATELET, LIPID PANEL PENDING, PASSED HER SWALLOW SCREEN PRIOR TO PO MEDICATIONS, I DID EXPLAIN THAT SHE CANNOT SEE OUT OF THE LEFT SIDE OF HER RIGHT EYE AND SHE WILL HAVE TO TURN HER HEAD TO SEE. WE PRACTICED THAT AND SHE DID WELL AND SEEMED ENCOURAGED. ECHO IS PENDING. SEE DR MARTIN'S NOTE FOR ADDITIONAL RECOMMENDATIONS. ALL STROKE MEASURES MET. I WILL CONTINUE TO FOLLOW.
[2020-06-29 11:24] LABS: Glucose, Whole Blood 153 mg/dL (60-115)
[2020-06-29] MEDS: Insulin Lispro 100 UNIT/ML 3 ML VIAL SUBCUT ×2 (12:05→23:19)
[2020-06-29] MEDS: Clopidogrel Bisulfate 75 MG TABLET PO (12:06)
[2020-06-29] MEDS: Docusate Sodium 100 MG CAPSULE PO (13:21)
[2020-06-29] MEDS: Nystatin Powder 15 GM BOTTLE 1 APPL TOPICAL (13:21)
--- NOTE | 2020-06-29 13:28 | MHC.CM.PN ---
IMM 06/29/2020 FEMALE 69 DX EMBOLIC CVA. Pt is nonambulatory baseline. Equipment in home including Independent Space and WC. She is dependent all aspects of care. She is unable to use the shower, and is bathed in bed. Her Dtr Stefany is her CLINICAL NURSE MANAGER thru [facility]. She has an indwelling Molina catheter; which is changed 1x a month. Dtr in process of obtaining PT1 for transportation. That service has lapsed. DP home with [facility] and vna via bls. CM will follow.
[2020-06-29 16:32] LABS: Glucose, Whole Blood 155 mg/dL (60-115)
[2020-06-29] MEDS: Acetaminophen 325 MG TABLET 650 MG PO (17:19)
[2020-06-29 21:12] LABS: Glucose, Whole Blood 210 mg/dL (60-115)
[2020-06-30 03:08] VITALS: BP 102/50; PULSE 60; RESP 18; TEMP 36.7; O2SAT 98
[2020-06-30] MEDS: Heparin Sodium,Porcine 5,000 UNIT/ML VIAL 5000 UNIT SUBCUT ×3 (03:15→17:29)
[2020-06-30 04:26] LABS: MANUAL DIFF FLAG NO
[2020-06-30 04:38] LABS: Basophils Percent Auto 0.2 % (0-2); Eosinophils Absolute Auto 0.3 X10*3/uL (0.0-0.4); Eosinophils Percent Auto 3.1 % (0-4); Hematocrit 41.6 % (37-47); Hemoglobin 13.5 g/dl (12.0-16.0); Imm Gran Abs Auto 0.05 X10*3/uL (0.00-0.03); Imm Gran Pct Auto 0.5 % (0.0-0.4); Lymphocytes Absolute Auto 2.1 X10*3/uL (1.2-4.9); Lymphocytes Percent Auto 22.7 % (20-40); Mean Corpuscular HGB Conc 32.5 g/dl (31.0-35.0); Mean Corpuscular Hemoglobin 29.2 pg (27.0-33.0); Mean Corpuscular Volume 89.8 fL (80-98); Monocytes Absolute Auto 0.8 X10*3/uL (0.1-1.2); Monocytes Percent Auto 8.5 % (2-11); Neutrophils Absolute Auto 6.1 X10*3/uL (2.0-8.3); Platelet Count 171 X10*3/uL (160-400); Red Blood Count 4.63 X10*6/uL (4.20-5.50); Red Cell Distribution Width 13.8 % (11.0-16.0); White Blood Count 9.4 X10*3/uL (4.8-10.8)
[2020-06-30 04:55] LABS: Anion Gap 9 (12-20); Blood Urea Nitrogen 11 mg/dL (9-16); Calcium 8.5 mg/dL (8.4-10.2); Carbon Dioxide 38 mmol/L (22-29); Chloride 95 mmol/L (96-108); Cholesterol 91 mg/dL; Estimated Glomerular Filt Rate > 60; Glucose Random 78 mg/dL (60-115); HDL Cholesterol 32 mg/dL; LDL Cholesterol Calculated 46 mg/dl; Potassium 3.4 mmol/l (3.3-5.1); Sodium 139 mmol/L (135-145); Triglycerides 69 mg/dL
[2020-06-30 07:44] VITALS: BP 135/66; PULSE 68; RESP 20; TEMP 36.3; O2SAT 98
[2020-06-30 07:46] LABS: Glucose, Whole Blood 82 mg/dL (60-115)
[2020-06-30 08:28] VITALS: BP 135/66; PULSE 68
[2020-06-30 09:43] VITALS: BP 135/66; PULSE 68
[2020-06-30] MEDS: levoFLOXacin 500 MG TABLET PO (09:43)
[2020-06-30] MEDS: Furosemide 40 MG TABLET PO (09:43)
[2020-06-30] MEDS: Aspirin Enteric Coated 81 MG TABLET.DR PO (09:43)
[2020-06-30] MEDS: Clopidogrel Bisulfate 75 MG TABLET PO (09:43)
[2020-06-30] MEDS: lisinopriL 5 MG TABLET PO (09:43)
[2020-06-30] MEDS: Loratadine 10 MG TABLET PO (09:43)
[2020-06-30] MEDS: 0.9 % Sodium Chloride Flush 3 ML SYRINGE IVFLUSH (09:46)
[2020-06-30] MEDS: Nystatin Powder 15 GM BOTTLE 1 APPL TOPICAL (09:47)
[2020-06-30] MEDS: Acetaminophen 325 MG TABLET 650 MG PO (09:48)
[2020-06-30] MEDS: Insulin Glargine,Hum.rec.anlog 100 UNIT/ML 10 ML VIAL 80 UNIT SUBCUT (09:50)
--- NOTE | 2020-06-30 10:37 | W.MHC.F2F ---
Service Date Service Date: 06/30/20 Reasons for Services Homebound: Leaving the home is medically contraindicated at this time without the asist of a device and/or another person due th the listed conditions above and below. will need OT and alf Certification: Based on the above findings, I certify that this patient is confined to the home and needs intermittent alf care, physical therapy and/or speech therapy, or continues to need occupational therapy. The patient is under my care, and I have initiated the establishment of the plan of care. The patient will be followed by a physician who will periodically review the plan of care.
[2020-06-30 12:00] VITALS: BP 142/73; PULSE 96; RESP 18; TEMP 36.7; O2SAT 95
--- NOTE | 2020-06-30 12:03 | P.DS_ITS ---
DS: Providers Provider Date of admission: 06/29/20 06:41 Primary care physician: Unknown Physician Consults: 06/29/20 08:46 Consult to Neurology Routine Consulting Provider: [facility] Reason for consultation: Stroke Has provider been notified: No DS: Diagnosis Discharge Diagnosis (1) Cerebral infarction: Status: Acute DS: Medications Discharge Medications Home Medications: Home Medications Medication Instructions Recorded Confirmed Flovent Diskus 2 puff PO BID 06/15/20 06/29/20 Lantus Solostar U-100 Insulin 80 unit SUBCUT DAILY 06/15/20 06/29/20 albuterol sulfate [ProAir HFA] 1 - 2 puff PO Q4-6H PRN 06/15/20 06/29/20 aspirin 1 tab PO DAILY 06/15/20 06/29/20 docusate sodium 1 - 2 cap PO BID PRN 06/15/20 06/29/20 furosemide 1 tab PO BID 06/15/20 06/29/20 insulin lispro [Humalog KwikPen 0 unit SUBCUT TIDAC 06/15/20 06/29/20 Insulin] ipratropium-albuterol 1 vial INHALATION Q4-6H PRN 06/15/20 06/29/20 lisinopril 1 tab PO DAILY 06/15/20 06/29/20 loratadine 1 tab PO DAILY 06/15/20 06/29/20 metoprolol tartrate 1 tab PO BID 06/15/20 06/29/20 nystatin 1 appl TOPICAL BID PRN 06/15/20 06/29/20 simvastatin [Zocor] 1 tab PO BEDTIME 06/15/20 06/29/20 Previous Rx's Medication Instructions Recorded levofloxacin 500 mg PO Q24H #13 tab 06/20/20 clopidogrel 75 mg PO DAILY #30 tab 06/30/20 DS: Summary Hospital Course Hospital Course: Patient was admitted for subacute CVA. Telemetry was unremarkable except for some sinus bradycardia, her metoprolol will be discontinued, she was seen by neurology recommended echocardiogram which was unremarkable and starting Plavix 75 mg daily for 1 month. Time Spent with Patient Time attestation: Total time spent providing and/or coordinating discharge services: Quality: Stroke Pt Provided Written Stroke Discharge Instructions: Patient given written information Physical Exam Vital Signs: Vital Signs: Last Vital Signs Temp 97.4 F 06/30/20 07:44 Pulse 68 06/30/20 09:43 Resp 20 06/30/20 07:44 BP 135/66 06/30/20 09:43 Pulse Ox 98 06/30/20 07:44 Body Mass Index 43.7 General: AO X 3, no acute distress Resp: CTA bilateral CVS: S1,S2,RRR GI: soft, non tender, non distended Psych: appropriate affect DS: Data Data Completed and Pending Labs on day of discharge: 06/29/20 Urine Culture Routine 06/29/20 00:45 CT head/brain wo con Stat 06/29/20 00:55 Complete Blood Count Auto Diff Stat 06/29/20 01:30 CMP [Comprehensive Met. Panel] Stat 06/29/20 01:50 Lactic Acid Stat 06/29/20 01:53 CT angio head neck Stat Aspirin 325 mg PO ONCE ONE 06/29/20 01:55 ECG 12 lead EKG Stat EKG Documentation DIRECTED 06/29/20 03:20 iohexoL 350 MG/ML [Omnipaque 350 MG/ML] 70 ml IV ONCE ONE 06/29/20 03:43 XR chest 1V Stat 06/29/20 03:50 SARS-CoV2/FLU/RSV Stat 06/29/20 06:36 Transfer Order Routine 06/29/20 08:22 Glucose, Whole Blood Routine 06/29/20 08:46 Atorvastatin Calcium [Lipitor] 80 mg PO ONCE ONE 06/29/20 09:00 Metoprolol Tartrate [Lopressor] 100 mg PO BID 06/29/20 10:00 CA echo transthorac w con Routine Diabetic Diet 06/29/20 11:12 Glucose, Whole Blood Routine 06/29/20 11:32 Perflutren Lipid Microspheres [Definity] 2.2 mg IVPUSH .STK-MED ONE 06/29/20 16:25 Glucose, Whole Blood Routine 06/29/20 21:07 Glucose, Whole Blood Routine 06/30/20 04:04 Basic Metabolic Panel Routine Complete Blood Count Auto Diff Routine Lipid Panel Routine 06/30/20 07:43 Glucose, Whole Blood Routine Laboratory Last Values WBC 9.4 X10*3/uL (4.8-10.8) 06/30/20 04:04 RBC 4.63 X10*6/uL (4.20-5.50) 06/30/20 04:04 Hgb 13.5 g/dl (12.0-16.0) 06/30/20 04:04 Hct 41.6 % (37-47) 06/30/20 04:04 MCV 89.8 fL (80-98) 06/30/20 04:04 MCH 29.2 pg (27.0-33.0) 06/30/20 04:04 MCHC 32.5 g/dl (31.0-35.0) 06/30/20 04:04 RDW 13.8 % (11.0-16.0) 06/30/20 04:04 Plt Count 171 X10*3/uL (160-400) 06/30/20 04:04 MPV 12.0 fL (9.4-12.3) 06/30/20 04:04 Immature Gran % (Auto) 0.5 % (0.0-0.4) H 06/30/20 04:04 Neut % (Auto) 65.0 % (45-73) 06/30/20 04:04 Lymph % (Auto) 22.7 % (20-40) 06/30/20 04:04 [place] % (Auto) 8.5 % (2-11) 06/30/20 04:04 Eos % (Auto) 3.1 % (0-4) 06/30/20 04:04 Baso % (Auto) 0.2 % (0-2) 06/30/20 04:04 Lymph # (Auto) 2.1 X10*3/uL (1.2-4.9) 06/30/20 04:04 [place] # (Auto) 0.8 X10*3/uL (0.1-1.2) 06/30/20 04:04 Eos # (Auto) 0.3 X10*3/uL (0.0-0.4) 06/30/20 04:04 Baso # (Auto) 0.0 X10*3/uL (0.0-0.2) 06/30/20 04:04 Abs Immat Gran (auto) 0.05 X10*3/uL (0.00-0.03) H 06/30/20 04:04 Absolute Neuts (auto) 6.1 X10*3/uL (2.0-8.3) 06/30/20 04:04 Absolute Nucleated RBC 0.000 X10*3/uL (0.0-0.012) 06/30/20 04:04 Nucleated RBC % (auto) 0.0 /100WBC (0.0-0.2) 06/30/20 04:04 Sodium 139 mmol/L (135-145) 06/30/20 04:04 Potassium 3.4 mmol/l (3.3-5.1) 06/30/20 04:04 Chloride 95 mmol/L (96-108) L 06/30/20 04:04 Carbon Dioxide 38 mmol/L (22-29) H 06/30/20 04:04 Anion Gap 9 (-20) L 06/30/20 04:04 BUN 11 mg/dL (9-16) 06/30/20 04:04 Creatinine 0.55 mg/dL (0.5-1.4) 06/30/20 04:04 Estim Creat Clear Calc 140.0 06/30/20 04:04 Estimated GFR > 60 06/30/20 04:04 POC Glucose 82 mg/dL (60-115) 06/30/20 07:43 Random Glucose 78 mg/dL (60-115) D 06/30/20 04:04 Lactic Acid 1.7 mmol/L (0.5-2.0) 06/29/20 01:50 Calcium 8.5 mg/dL (8.4-10.2) 06/30/20 04:04 Total Bilirubin 0.6 mg/dL (0.0-1.0) 06/29/20 01:30 AST 33 U/L (5-31) H D 06/29/20 01:30 ALT 29 U/L (0-31) 06/29/20 01:30 Alkaline Phosphatase 88 U/L (39-117) 06/29/20 01:30 Total Protein 6.1 g/dL (6.5-8.0) L 06/29/20 01:30 Albumin 3.7 g/dL (3.5-5.0) 06/29/20 01:30 Triglycerides 69 mg/dL 06/30/20 04:04 Triglycerides Cancelled 06/30/20 04:04 Cholesterol 91 mg/dL 06/30/20 04:04 Cholesterol Cancelled 06/30/20 04:04 LDL Cholesterol, Calc 46 mg/dl 06/30/20 04:04 LDL Cholesterol, Calc Cancelled 06/30/20 04:04 HDL Cholesterol 32 mg/dL 06/30/20 04:04 HDL Cholesterol Cancelled 06/30/20 04:04 Urine Color STRAW 06/29/20 01:30 Urine Appearance CLEAR 06/29/20 01:30 Urine pH 6.0 (5.0-8.0) 06/29/20 01:30 Ur Specific [place] <= 1.005 (1.005-1.025) 06/29/20 01:30 Urine Protein NEG MG/DL (NEG-TRACE) 06/29/20 01:30 Urine Glucose (UA) NEG MG/DL (NEG) 06/29/20 01:30 Urine Ketones NEG MG/DL (NEG) 06/29/20 01:30 Urine Blood 1+ (NEG) H 06/29/20 01:30 Urine Nitrite NEG (NEG) 06/29/20 01:30 Ur Leukocyte Esterase TRACE (NEG) H 06/29/20 01:30 Urine RBC 0-2 /HPF (0) 06/29/20 01:30 Urine WBC 0-2 /HPF (0-4) 06/29/20 01:30 Ur Squamous Epith Cells TRACE /LPF 06/29/20 01:30 Urine Bacteria NONE /LPF 06/29/20 01:30 Urine Yeast TRACE /HPF 06/29/20 01:30 Coronavirus (PCR) NEGATIVE (Negative) 06/29/20 03:50 Influenza Type A (PCR) NEGATIVE (Negative) 06/29/20 03:50 Influenza Type B (PCR) NEGATIVE (Negative) 06/29/20 03:50 RSV RNA Qual (PCR) NEGATIVE (Negative) 06/29/20 03:50 Preliminary micro results at discharge 06/29/20 01:50 Blood Culture - Preliminary Blood - Venous No growth after 24 hours. 06/29/20 01:37 Blood Culture - Preliminary Blood - Venous No growth after 24 hours. Discharge Plan Discharge Patient Disposition: Home Health Service Referrals: Cherise Hamm MD [Physician] - 1 Week (Tele Visit 07/06/2020 10:30 am. Cherise will call you and discuss the hospital stay with you. Please call and cancel this appointment if the date and time doesn't work for you.) Discharge Medications: New clopidogrel 75 mg Tablet 75 mg PO DAILY Qty: 30 RF: 0 Continued furosemide 40 mg tablet 1 tab PO BID RF: 0 ipratropium-albuterol 0.5 mg-3 mg(2.5 mg base)/3 mL solution for nebulization 1 vial inhalation Q4-6H PRN (Reason: Shortness Of Breath) RF: 0 metoprolol tartrate 100 mg tablet 1 tab PO BID RF: 0 aspirin 81 mg tablet,delayed release (DR/EC) 1 tab PO DAILY RF: 0 simvastatin [Zocor] 40 mg tablet 1 tab PO BEDTIME RF: 0 Flovent Diskus 100 mcg/actuation blister with device 2 puff PO BID RF: 0 docusate sodium 100 mg capsule 1 - 2 cap PO BID PRN (Reason: Constipation) RF: 0 lisinopril 5 mg tablet 1 tab PO DAILY RF: 0 nystatin 100,000 unit/gram powder 1 appl topical BID PRN (Reason: Rash) RF: 0 albuterol sulfate [ProAir HFA] 90 mcg/actuation HFA aerosol inhaler 1 - 2 puff PO Q4-6H PRN (Reason: Shortness Of Breath) RF: 0 loratadine 10 mg tablet 1 tab PO DAILY RF: 0 insulin lispro [Humalog KwikPen Insulin] 100 unit/mL insulin pen 0 unit subcut TIDAC RF: 0 Lantus Solostar U-100 Insulin 100 unit/mL (3 mL) insulin pen 80 unit subcut DAILY RF: 0 levofloxacin 500 mg tablet 500 mg PO Q24H Qty: 13 RF: 0 Discharge Orders: Discharge Order (Routine); Ordered 06/30/20 Ordered By: Joseph Kirkpatrick Diet: advance to usual diet Activity on Discharge: As tolerated Visit Report Forms: Patient Portal Discharge page Care Plan Goals: prevent strokes Health Concerns: cva Plan of Treatment: plavix for one month then stop, OT
[2020-06-30 12:06] LABS: Glucose, Whole Blood 151 mg/dL (60-115)
[2020-06-30] MEDS: Insulin Lispro 100 UNIT/ML 3 ML VIAL SUBCUT (12:15)
--- NOTE | 2020-06-30 15:25 | MHC.CM.PN ---
DC to home via BLS at 6pm tonight. [facility] will follow. Pt will transport via S
[2020-06-30 16:00] VITALS: BP 112/79; PULSE 79; RESP 18; TEMP 37.1; O2SAT 99
[2020-06-30 16:46] LABS: Glucose, Whole Blood 115 mg/dL (60-115)
--- NOTE | 2020-06-30 17:40 | PC.NURSE ---
attempted to call daughter to give discharge instructions since she is primary rn primary care, no answer will attempt to recall shortly.
== END 2020-06-30 18:44 | disposition home health service (06) | DRG 65 ==
LOC: HO.ED 03:46 → HO.IMC 07:53
PROVIDERS: Admitting Provider Internal Medicine; Emergency Provider Internal Medicine; Visit Provider Internal Medicine
DX: I63.531 Cerebral infarction due to unspecified occlusion or stenosis of right posterior cerebral artery (principal); Z68.41 Body mass index [BMI] 40.0-44.9, adult; N39.0 Urinary tract infection, site not specified; R29.701 NIHSS score 1; H53.47 Heteronymous bilateral field defects; I10 Essential (primary) hypertension; Z87.440 Personal history of urinary (tract) infections; E66.9 Obesity, unspecified; Z20.828 Contact with and (suspected) exposure to other viral communicable diseases; E11.9 Type 2 diabetes mellitus without complications; Z96.0 Presence of urogenital implants; Z79.4 Long term (current) use of insulin; Z79.82 Long term (current) use of aspirin; Z79.899 Other long term (current) drug therapy
CPT/HCPCS: 0241U; 36415; 70450; 70496; 70498; 71045; 80048; 80053; 80061; 81001; 82947; 83605; 85025; 87040; 87086; 93005; 93306; 97166; 99285; Q9957; Q9967

== ENCOUNTER 2020-07-05 10:49 | Emergency (ER) | payer MEDICARE, MEDICAID, SELFPAY ==
[2020-07-05 11:10] VITALS: BP 129/98; BP 132/98; PULSE 74; RESP 18; TEMP 36.1; O2SAT 96; BMI 41.1
--- NOTE | 2020-07-05 11:17 | XR_ITS ---
EXAMINATION: XR CHEST CLINICAL INFORMATION: Chest pain COMPARISON: 06/29/2020 TECHNIQUE: Frontal view of the chest was obtained. FINDINGS: There is mild cardiac enlargement. Lungs are hypoinflated. Allowing for this, no infiltrates effusions or lung masses are seen. No evidence of CHF. Some left basilar atelectasis is present. XR/XR chest 1V IMPRESSION: Hypoinflated lungs with some left basilar atelectasis. No acute intrathoracic disease.
--- NOTE | 2020-07-05 11:17 | ECG_ITS ---
Test Reason : CP Blood Pressure : / mmHG Vent. Rate : 075 BPM Atrial Rate : 075 BPM P-R Int : 200 ms QRS Dur : 096 ms QT Int : 410 ms P-R-T Axes : 039 -13 079 degrees QTc Int : 457 ms Normal sinus rhythm Minimal voltage criteria for LVH, may be normal variant Cannot rule out Anteroseptal infarct (cited on or before 15-JUN-2020) Abnormal ECG When compared with ECG of 29-JUN-2020 02:02, Questionable change in initial forces of Septal leads Referred By: Jenelle Chong Electronically Signed By:STANLEY HUMPHREYS
--- NOTE | 2020-07-05 11:43 | ED_ITS ---
HPI - Chest Pain General Chief Complaint: Chest Pain Stated Complaint: chest pain Time Seen by Provider: 07/05/20 11:16 Source: patient and EMS Mode of arrival: EMS Limitations: physical limitation History of Present Illness HPI narrative: 69 y/o female with multiple co-morbidities including morbid obesity, bedbound status, DM, HTN, chronic Molina, UTI's, asthma, COPD, CHF, with recent admission to [facility] 06-29-06/30 for subacute CVA presents to the ED with intermittent reproducible right sided chest pain and SOB on/off since she got home. She also reports headaches, chills, back pain and leg pain. She is concerned she may have a touch of pneumonia because she described the pain as lung pain. It is worse when touches and when she takes a deep breath. Non- radiating. No diaphoresis, N/V. MD complaint: chest pain Pertinent past history: asthma Onset (ago): day(s) (5) Timing of current episode: episodic Prior episodes: Yes Onset: during rest Pain location: right chest Pain radiation: none Severity: moderate Quality: tightness and aching Relieving factors: nothing Exacerbating factors: inspiration, palpation and movement Context: recent illness Related Data Home Medications Medication Instructions Recorded Confirmed Flovent Diskus 2 puff PO BID 06/15/20 06/29/20 Lantus Solostar U-100 Insulin 80 unit SUBCUT DAILY 06/15/20 06/29/20 albuterol sulfate [ProAir HFA] 1 - 2 puff PO Q4-6H PRN 06/15/20 06/29/20 aspirin 1 tab PO DAILY 06/15/20 06/29/20 docusate sodium 1 - 2 cap PO BID PRN 06/15/20 06/29/20 furosemide 1 tab PO BID 06/15/20 06/29/20 insulin lispro [Humalog KwikPen 0 unit SUBCUT TIDAC 06/15/20 06/29/20 Insulin] ipratropium-albuterol 1 vial INHALATION Q4-6H PRN 06/15/20 06/29/20 lisinopril 1 tab PO DAILY 06/15/20 06/29/20 loratadine 1 tab PO DAILY 06/15/20 06/29/20 nystatin 1 appl TOPICAL BID PRN 12/07/20 12/21/20 simvastatin [Zocor] 1 tab PO BEDTIME 06/15/20 06/29/20 Previous Rx's Medication Instructions Recorded levofloxacin 500 mg PO Q24H #13 tab 06/20/20 clopidogrel 75 mg PO DAILY #30 tab 06/30/20 Allergies Allergy/AdvReac Type Severity Reaction Status Date / Time silver sulfadiazine Allergy Unknown UNK Verified 06/29/20 00:20 [From PROVENCALDENE] Review of Systems Review of Systems: Constitutional: No Fever, + Chills ENT/Mouth: No sore throat, No Rhinorrhea, No Swallowing Difficulty Eyes: No Eye Pain, No Swelling, No Redness Cardiovascular: + Chest Pain, + SOB, + Orthopnea, + Edema Respiratory: + Cough, No Sputum, No Wheezing, No dyspnea Gastrointestinal: + Nausea, No Vomiting, No Diarrhea, No abdominal Pain, No Hematochezia, No Melena Genitourinary: No Dysuria, No Urinary Frequency, No Hematuria Musculoskeletal: No joint pain, + Myalgias Skin: +Skin Lesions, No rash Neuro: No Weakness, No Numbness, No Dizziness, + Headache Psych: + Anxiety/Panic, No Depression Heme/Lymph: No Bruising, No Lymphadenopathy Endocrine: No Polyuria, No Polydipsia PMFSH Past Medical History Attestation statement: The following information was validated with the patient. Medical History Chronic indwelling Molina catheter Chronic UTI Congestive heart failure COPD (chronic obstructive pulmonary disease) Diabetes Glaucoma Hypertension Obesity Osteoarthritis Severe sepsis Surgical History H/O adenoidectomy H/O enucleation of left eyeball History of tonsillectomy Social History Social History Household Members: Family Housing: House Alcohol intake: never Smoking Status: Never smoker Second Hand Smoke Exposure: No Use of substances other than those prescribed or required for medical reasons: No Advance Directives: No Advance Directives Information Provided: Yes service: No Current occupational status: disabled Physical Exam Vital Signs: Vital Signs: Last Vital Signs Temp 97.7 F 07/05/20 14:26 Pulse 86 07/05/20 14:26 Resp 18 12/27/20 14:26 BP 122/49 L 12/27/20 14:26 Pulse Ox 98 07/05/20 14:26 Body Mass Index 41.1 Appearance: Alert. Oriented X3. Anxious Eyes: Right Pupils equal, round and reactive to light. s/p left eye removal ENT: Pharynx normal. No dentition, mucosa is moist. Neck: Normal inspection. Neck supple. CVS: Normal heart rate and rhythm. Pulses normal. Respiratory: No respiratory distress. Mild expiratory wheeze in middle right lung without rhonchi or rales. Right chest wall tenderness. Abdomen: Obese, Soft and nontender. +BS x4 Skin: Skin warm and dry. Normal skin color. Normal skin turgor. No rashes. Extremities: bilateral LE edema 1+ with chronic venous stasis changes, cool with 1+ DP pulses. Neuro: Oriented X 3. anxious, equal UE strength, no sensory deficit. Course Course Course Narrative: 69 y/o female with multiple comorbidities presenting with m ultiple complaints including chest pain, SOB, headaches, chills, muscle aches. She is anxious. Vitals are normal. No hypoxia or increased WOB. Her chest pain is reproducible. Doubt ACS or PE, will get EKG and troponin as well as CXR and lab workup. Reevaluation(s) Reevaluation #1: 1:25: initial troponin mildly elevated at 16. EKG without ischemic changes. CXR shows left base atelectasis. Patient reporting chronic back pain, chest pain is intermittent, mild now, requesting Tylenol. 2nd troponin ordered. Reevaluation #2: 3:20 - repeat troponin did not increase by delta of 50%. Chest pain, low back pain and headache are all improved after tylneol. Lab and imaging reesults were discussed with patient. It is likely a component of anxiety is leading to her symptoms, she is having a difficult time adapting at home after her diagnosis of a stroke. She has 122 hours of care at home, a hospital bed and a alex lift. She is afraid of being committed to a fci and would like to go home. She has her daughter who helps provide for her. She agrees to f/u with her PCP this week as well as Cardiology. Instructed to come back to the ER if symptoms worsen or change. Comfortable with discharge home. MDM - Chest Pain Differential Diagnosis Differential diagnosis: Likely fracture of rib, pneumothorax, stable angina, unstable angina pectoris, atypical chest pain, costochondritis, chest pain and biliary colic Medical Records Data Attestation: I reviewed the patient's medical records. Lab Data Attestation: I reviewed the patient's lab results. Result diagrams: 07/05/20 12:16 07/05/20 12:17 Labs: Lab Results 07/05/20 07/05/20 07/05/20 Range/Units 12:15 12:15 12:16 WBC 10.8 (4.8-10.8) X10*3/uL RBC 4.86 (4.20-5.50) X10*6/uL Hgb 14.4 (12.0-16.0) g/dl Hct 42.6 (37-47) % MCV 87.7 (80-98) fL MCH 29.6 (27.0-33.0) pg MCHC 33.8 (31.0-35.0) g/dl RDW 13.6 (11.0-16.0) % Plt Count 148 L (160-400) X10*3/uL MPV 12.1 (9.4-12.3) fL Immature Gran % (Auto) 0.4 (0.0-0.4) % Neut % (Auto) 75.0 H (45-73) % Lymph % (Auto) 16.3 L (20-40) % [place] % (Auto) 6.7 (2-11) % Eos % (Auto) 1.4 (0-4) % Baso % (Auto) 0.2 (0-2) % Lymph # (Auto) 1.8 (1.2-4.9) X10*3/uL [place] # (Auto) 0.7 (0.1-1.2) X10*3/uL Eos # (Auto) 0.2 (0.0-0.4) X10*3/uL Baso # (Auto) 0.0 (0.0-0.2) X10*3/uL Abs Immat Gran (auto) 0.04 H (0.00-0.03) X10*3/uL Absolute Neuts (auto) 8.1 (2.0-8.3) X10*3/uL Absolute Nucleated RBC 0.000 (0.0-0.012) X10*3/uL Nucleated RBC % (auto) 0.0 (0.0-0.2) /100WBC Hold Blue Top Sodium (135-145) mmol/L Potassium (3.3-5.1) mmol/l Chloride (96-108) mmol/L Carbon Dioxide (22-29) mmol/L Anion Gap (12-20) BUN (9-16) mg/dL Creatinine (0.5-1.4) mg/dL Estim Creat Clear Calc Estimated GFR Random Glucose (60-115) mg/dL Calcium (8.4-10.2) mg/dL Troponin I High Sens (<3.5-17.0) ng/L B-Natriuretic Peptide 41 (<100) pg/mL Urine Color Urine Appearance Urine pH (5.0-8.0) Ur Specific [place] (1.005-1.025) Urine Protein (NEG-TRACE) MG/DL Urine Glucose (UA) (NEG) MG/DL Urine Ketones (NEG) MG/DL Urine Blood (NEG) Urine Nitrite (NEG) Ur Leukocyte Esterase (NEG) Urine RBC (0) /HPF Urine WBC (0-4) /HPF Ur Squamous Epith Cells /LPF Urine Bacteria /LPF Urine Yeast /HPF Coronavirus (PCR) NEGATIVE (Negative) Influenza Type A (PCR) NEGATIVE (Negative) Influenza Type B (PCR) NEGATIVE (Negative) RSV RNA Qual (PCR) NEGATIVE (Negative) 07/05/20 07/05/20 07/05/20 Range/Units 12:16 12:17 12:17 WBC (4.8-10.8) X10*3/uL RBC (4.20-5.50) X10*6/uL Hgb (12.0-16.0) g/dl Hct (37-47) % MCV (80-98) fL MCH (27.0-33.0) pg MCHC (31.0-35.0) g/dl RDW (11.0-16.0) % Plt Count (160-400) X10*3/uL MPV (9.4-12.3) fL Immature Gran % (Auto) (0.0-0.4) % Neut % (Auto) (45-73) % Lymph % (Auto) (20-40) % [place] % (Auto) (2-11) % Eos % (Auto) (0-4) % Baso % (Auto) (0-2) % Lymph # (Auto) (1.2-4.9) X10*3/uL [place] # (Auto) (0.1-1.2) X10*3/uL Eos # (Auto) (0.0-0.4) X10*3/uL Baso # (Auto) (0.0-0.2) X10*3/uL Abs Immat Gran (auto) (0.00-0.03) X10*3/uL Absolute Neuts (auto) (2.0-8.3) X10*3/uL Absolute Nucleated RBC (0.0-0.012) X10*3/uL Nucleated RBC % (auto) (0.0-0.2) /100WBC Hold Blue Top SEE NOTE Sodium 134 L (135-145) mmol/L Potassium 3.8 (3.3-5.1) mmol/l Chloride 93 L (96-108) mmol/L Carbon Dioxide 32 H (22-29) mmol/L Anion Gap 13 (12-20) BUN 12 (9-16) mg/dL Creatinine 0.64 (0.5-1.4) mg/dL Estim Creat Clear Calc 104.9 Estimated GFR > 60 Random Glucose 108 D (60-115) mg/dL Calcium 8.7 (8.4-10.2) mg/dL Troponin I High Sens 16.7 D (<3.5-17.0) ng/L B-Natriuretic Peptide (<100) pg/mL Urine Color Urine Appearance Urine pH (5.0-8.0) Ur Specific [place] (1.005-1.025) Urine Protein (NEG-TRACE) MG/DL Urine Glucose (UA) (NEG) MG/DL Urine Ketones (NEG) MG/DL Urine Blood (NEG) Urine Nitrite (NEG) Ur Leukocyte Esterase (NEG) Urine RBC (0) /HPF Urine WBC (0-4) /HPF Ur Squamous Epith Cells /LPF Urine Bacteria /LPF Urine Yeast /HPF Coronavirus (PCR) (Negative) Influenza Type A (PCR) (Negative) Influenza Type B (PCR) (Negative) RSV RNA Qual (PCR) (Negative) 07/05/20 07/05/20 Range/Units 14:34 14:38 WBC (4.8-10.8) X10*3/uL RBC (4.20-5.50) X10*6/uL Hgb (12.0-16.0) g/dl Hct (37-47) % MCV (80-98) fL MCH (27.0-33.0) pg MCHC (31.0-35.0) g/dl RDW (11.0-16.0) % Plt Count (160-400) X10*3/uL MPV (9.4-12.3) fL Immature Gran % (Auto) (0.0-0.4) % Neut % (Auto) (45-73) % Lymph % (Auto) (20-40) % [place] % (Auto) (2-11) % Eos % (Auto) (0-4) % Baso % (Auto) (0-2) % Lymph # (Auto) (1.2-4.9) X10*3/uL [place] # (Auto) (0.1-1.2) X10*3/uL Eos # (Auto) (0.0-0.4) X10*3/uL Baso # (Auto) (0.0-0.2) X10*3/uL Abs Immat Gran (auto) (0.00-0.03) X10*3/uL Absolute Neuts (auto) (2.0-8.3) X10*3/uL Absolute Nucleated RBC (0.0-0.012) X10*3/uL Nucleated RBC % (auto) (0.0-0.2) /100WBC Hold Blue Top Sodium (135-145) mmol/L Potassium (3.3-5.1) mmol/l Chloride (96-108) mmol/L Carbon Dioxide (22-29) mmol/L Anion Gap (12-20) BUN (9-16) mg/dL Creatinine (0.5-1.4) mg/dL Estim Creat Clear Calc Estimated GFR Random Glucose (60-115) mg/dL Calcium (8.4-10.2) mg/dL Troponin I High Sens 20.3 H (<3.5-17.0) ng/L B-Natriuretic Peptide (<100) pg/mL Urine Color YELLOW Urine Appearance HAZY Urine pH 6.5 (5.0-8.0) Ur Specific [place] <= 1.005 (1.005-1.025) Urine Protein 1+ H (NEG-TRACE) MG/DL Urine Glucose (UA) NEG (NEG) MG/DL Urine Ketones NEG (NEG) MG/DL Urine Blood 1+ H (NEG) Urine Nitrite NEG (NEG) Ur Leukocyte Esterase TRACE H (NEG) Urine RBC 1-4 (0) /HPF Urine WBC 1-4 (0-4) /HPF Ur Squamous Epith Cells 2+ /LPF Urine Bacteria NONE /LPF Urine Yeast 2+ /HPF Coronavirus (PCR) (Negative) Influenza Type A (PCR) (Negative) Influenza Type B (PCR) (Negative) RSV RNA Qual (PCR) (Negative) ECG Data ECG #1: Attestation: I personally reviewed and interpreted this ECG as follows: ECG interpretation date: 07/05/20 ECG interpretation time: 13:00 Prior ECG tracings: available for review Interpretation: normal sinus rhythm, HR 75 bpm, prolonged [place] interval 200 ms with poor R wave progression in V1, V2 unchanged from Jun Critical Care Time Critical Care Time Critical Care Time: No Discharge Plan Discharge Clinical Impression: Atypical chest pain, Anxiety Patient Disposition: Home, Self-Care Instructions: Chest Pain (ED), Anxiety (ED) Additional Instructions: Your lab workup today was reassuring AGAINST cardiac causes of chest pain. You were tested for COVID-19, Influenza and RSV, all were NEGATIVE. Your urine sample did not show infection. Your chest x-ray did not show any evidence of pneumonia. Anxiety is likely a contributing factor to your symptoms. Recommend following up with your doctor this week. Follow up with Cardiology. Elevate your legs when possible to help with swelling. Limit your salt intake. If you have worsening chest pain or shortness of breath come back to the ER for further evaluation. Prescriptions: No Action furosemide 40 mg tablet 1 tab PO BID RF: 0 ipratropium-albuterol 0.5 mg-3 mg(2.5 mg base)/3 mL solution for nebulization 1 vial inhalation Q4-6H PRN (Reason: Shortness Of Breath) RF: 0 aspirin 81 mg tablet,delayed release (DR/EC) 1 tab PO DAILY RF: 0 simvastatin [Zocor] 40 mg tablet 1 tab PO BEDTIME RF: 0 Flovent Diskus 100 mcg/actuation blister with device 2 puff PO BID RF: 0 docusate sodium 100 mg capsule 1 - 2 cap PO BID PRN (Reason: Constipation) RF: 0 lisinopril 5 mg tablet 1 tab PO DAILY RF: 0 nystatin 100,000 unit/gram powder 1 appl topical BID PRN (Reason: Rash) RF: 0 albuterol sulfate [ProAir HFA] 90 mcg/actuation HFA aerosol inhaler 1 - 2 puff PO Q4-6H PRN (Reason: Shortness Of Breath) RF: 0 loratadine 10 mg tablet 1 tab PO DAILY RF: 0 insulin lispro [Humalog KwikPen Insulin] 100 unit/mL insulin pen 0 unit subcut TIDAC RF: 0 Lantus Solostar U-100 Insulin 100 unit/mL (3 mL) insulin pen 80 unit subcut DAILY RF: 0 levofloxacin 500 mg tablet 500 mg PO Q24H Qty: 13 RF: 0 clopidogrel 75 mg Tablet 75 mg PO DAILY Qty: 30 RF: 0 Referrals: Aaron Acosta MD [Physician] - 2 days
[2020-07-05 12:25] LABS: Basophils Percent Auto 0.2 % (0-2); Eosinophils Absolute Auto 0.2 X10*3/uL (0.0-0.4); Eosinophils Percent Auto 1.4 % (0-4); Hematocrit 42.6 % (37-47); Hemoglobin 14.4 g/dl (12.0-16.0); Imm Gran Abs Auto 0.04 X10*3/uL (0.00-0.03); Imm Gran Pct Auto 0.4 % (0.0-0.4); Lymphocytes Absolute Auto 1.8 X10*3/uL (1.2-4.9); Lymphocytes Percent Auto 16.3 % (20-40); MANUAL DIFF FLAG NO; Mean Corpuscular HGB Conc 33.8 g/dl (31.0-35.0); Mean Corpuscular Hemoglobin 29.6 pg (27.0-33.0); Mean Corpuscular Volume 87.7 fL (80-98); Mean Platelet Volume 12.1 fL (9.4-12.3); Monocytes Absolute Auto 0.7 X10*3/uL (0.1-1.2); Monocytes Percent Auto 6.7 % (2-11); Neutrophils Absolute Auto 8.1 X10*3/uL (2.0-8.3); Platelet Count 148 X10*3/uL (160-400); Red Blood Count 4.86 X10*6/uL (4.20-5.50); Red Cell Distribution Width 13.6 % (11.0-16.0); White Blood Count 10.8 X10*3/uL (4.8-10.8)
[2020-07-05 12:56] LABS: Anion Gap 13 (12-20); Blood Urea Nitrogen 12 mg/dL (9-16); Calcium 8.7 mg/dL (8.4-10.2); Carbon Dioxide 32 mmol/L (22-29); Chloride 93 mmol/L (96-108); Creatinine Clr Calc Pharmacy 104.9; Estimated Glomerular Filt Rate > 60; Glucose Random 108 mg/dL (60-115); Potassium 3.8 mmol/l (3.3-5.1); Sodium 134 mmol/L (135-145)
[2020-07-05 13:02] LABS: B Type Natriuretic Peptide 41 pg/mL (<100)
[2020-07-05 13:03] LABS: Troponin-I High Sensitivity 16.7 ng/L (<3.5-17.0)
[2020-07-05 13:10] LABS: Influenza A PCR NEGATIVE (Negative); Influenza B PCR NEGATIVE (Negative); Resp Syncy Virus RNA Qual PCR NEGATIVE (Negative); SARS COV2 PCR INHOUSE NEGATIVE (Negative)
[2020-07-05] MEDS: Acetaminophen 325 MG TABLET 975 MG PO (14:25)
[2020-07-05 14:26] VITALS: BP 122/49; PULSE 86; RESP 18; TEMP 36.5; O2SAT 98
[2020-07-05 14:47] LABS: Glucose Urine UA NEG (NEG); Leukocyte Esterase Urine TRACE (NEG); Nitrite Urine NEG (NEG); PH 6.5 (5.0-8.0); Specific Gravity - Urine <= 1.005 (1.005-1.025); Urine Blood 1+ (NEG); Urine Ketones NEG (NEG); Urine Protein 1+ MG/DL (NEG-TRACE)
[2020-07-05 14:49] LABS: Appearance Urine HAZY; Color Urine YELLOW
[2020-07-05 14:59] LABS: Squamous Epithelial Cell Urine 2+ /LPF
[2020-07-05 15:19] LABS: Troponin-I High Sensitivity 20.3 ng/L (<3.5-17.0)
== END 2020-07-05 16:41 | disposition home or self-care (01) ==
PROVIDERS: Physician Assistant; Emergency Provider Emergency Medicine Emergency Medical Services
DX: R07.89 Other chest pain (principal); F41.9 Anxiety disorder, unspecified; F43.0 Acute stress reaction; Z20.828 Contact with and (suspected) exposure to other viral communicable diseases; Z79.899 Other long term (current) drug therapy
CPT/HCPCS: 0241U; 36415; 71045; 80048; 81001; 83880; 84484; 85025; 87086; 87147; 93005; 99284

== ENCOUNTER 2020-07-09 14:07 | Emergency (ER) | payer MEDICARE, MEDICAID, SELFPAY ==
[2020-07-09] VITALS (7 sets, daily range): BP systolic 136–137; BP diastolic 63–68; PULSE 73–77; RESP 16–20; TEMP 36.6–36.9; O2SAT 96–97; BMI 41.6
--- NOTE | 2020-07-09 14:27 | ECG_ITS ---
Test Reason : GENERAL MEDICAL Blood Pressure : / mmHG Vent. Rate : 070 BPM Atrial Rate : 070 BPM P-R Int : 220 ms QRS Dur : 096 ms QT Int : 416 ms P-R-T Axes : 010 -21 147 degrees QTc Int : 449 ms Sinus rhythm with 1st degree A-V block Left ventricular hypertrophy with repolarization abnormality Cannot rule out Septal infarct (cited on or before 15-JUN-2020) Abnormal ECG When compared with ECG of 05-JUL-2020 11:52, No significant changes seen Referred By: Eden Castro Electronically Signed By:STANLEY HUMPHREYS
--- NOTE | 2020-07-09 14:29 | ED.GENADULT ---
HPI - General Adult General Chief complaint: General Medical Stated complaint: [place] Time Seen by Provider: 07/09/20 14:11 Source: patient Mode of arrival: ambulatory Limitations: no limitations History of Present Illness HPI narrative: 61-year-old female with a past medical history of morbid obesity, stroke bed bound at baseline, diabetes, hypertension, chronic Molina and chronic UTIs, asthma, COPD, CHF, recent admission to [facility] 06/29-06/30 for subacute CVA here complaints of generalized weakness. Of note the patient was offered short-term rehab but she declines this and wants to go home. She was seen back here in the emergency department on July 05 for multiple complaints and at that time was offer offered short-term rehab but she declined this and wanted to go home. 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 She tells me she is here today because she would like to go to short-term rehab. She feels like she is generally weak and she would need some more intensive physical therapy to get stronger. No complaints of focal weakness, chest pain, shortness of breath, cough, vomiting, diarrhea, vision changes, fevers, chills body aches. Onset (ago): week(s) Associated symptoms: denies other symptoms Treatments prior to arrival: none Related Data Home Medications Medication Instructions Recorded Confirmed Flovent Diskus 2 puff PO BID 06/15/20 07/09/20 Lantus Solostar U-100 Insulin 60 unit SUBCUT DAILY 06/15/20 07/09/20 albuterol sulfate [ProAir HFA] 1 - 2 puff PO Q4-6H PRN 06/15/20 07/09/20 aspirin 1 tab PO DAILY 06/15/20 07/09/20 docusate sodium 1 - 2 cap PO BID PRN 06/15/20 07/09/20 furosemide 40 mg PO BID 06/15/20 07/09/20 insulin lispro [Humalog KwikPen 0 unit SUBCUT TIDAC 06/15/20 07/09/20 Insulin] ipratropium-albuterol 1 vial INHALATION Q4-6H PRN 06/15/20 07/09/20 lisinopril 1 tab PO DAILY 06/15/20 07/09/20 loratadine 1 tab PO DAILY 06/15/20 07/09/20 nystatin 1 appl TOPICAL BID PRN 06/15/20 07/09/20 simvastatin [Zocor] 40 mg PO BEDTIME 06/15/20 07/09/20 gabapentin 300 mg PO TID 07/09/20 07/09/20 metoprolol tartrate 50 mg PO BID 07/09/20 07/09/20 nystatin 1 appl TOPICAL BID 07/09/20 07/09/20 Previous Rx's Medication Instructions Recorded clopidogrel 75 mg PO DAILY #30 tab 06/30/20 Allergies Allergy/AdvReac Type Severity Reaction Status Date / Time silver sulfadiazine Allergy Unknown UNK Verified 06/29/20 00:20 [facility] Review of Systems Review of Systems: Yes all other systems are reviewed and are negative Constitutional: Constitutional: Reports no additional constitutional complaints, Denies body ache(s), Denies chills, Denies fever(s), Denies headache(s) and Reports weakness Eyes: Eyes: Reports no additional eye complaints and Denies change in vision ENT: Reports system reviewed and no additional complaints, except as documented, Denies dizziness, Denies headache(s), Denies nasal congestion, Denies nasal discharge and Denies neck pain Cardiovascular: Cardiovascular: Reports no additional cardiovascular complaints, Denies chest pain, Denies leg edema and Denies dyspnea Respiratory: Respiratory: Reports no additional respiratory complaints, Denies cough and Denies dyspnea Gastrointestinal: Gastrointestinal: Reports no additional gastrointestinal complaints, Denies abdominal pain, Denies diarrhea, Denies nausea and Denies vomiting Genitourinary: Genitourinary: Reports no additional female genitourinary complaints and Denies urinary incontinence Musculoskeletal: Musculoskeletal: Reports no additional musculoskeletal complaints, Denies back pain, Denies arthralgias, Denies joint swelling, Denies neck pain, Denies numbness and Denies tingling Integumentary/Breasts: Skin/Breast: Reports system reviewed and no additional complaints, except as docu and Denies rash Neurologic: Reports system reviewed and no additional complaints, except as documented, Denies Abnormal speech present, Denies dizziness, Denies headache(s), Denies numbness, Denies tingling and Reports weakness PMFSH Past Medical History Attestation statement: The following information was validated with the patient. Source: nursing notes reviewed Medical History Chronic indwelling Molina catheter Chronic UTI Congestive heart failure COPD (chronic obstructive pulmonary disease) Diabetes Glaucoma Hypertension Obesity Osteoarthritis Severe sepsis Surgical History H/O adenoidectomy H/O enucleation of left eyeball History of tonsillectomy Social History Social History Household Members: Family Housing: House Alcohol intake: never Smoking Status: Smoker, status unknown Second Hand Smoke Exposure: No Use of substances other than those prescribed or required for medical reasons: No Advance Directives: No Advance Directives Information Provided: No service: No Current occupational status: disabled Physical Exam Vital Signs: Vital Signs: Last Vital Signs Temp 98.4 F 07/09/20 14:25 Pulse 73 07/09/20 14:25 Resp 16 07/09/20 14:25 BP 137/63 07/09/20 14:25 Pulse Ox 97 07/09/20 14:25 Body Mass Index 41.6 Const: General: cooperative, healthy appearing, comfortable and no acute distress Orientation/consciousness: patient oriented x3 Limitations: no limitations HENMT: Other: 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 Head: Yes normal to inspection Ears: hearing grossly normal bilaterally General nose exam: Normal external nose present Face and sinus: Yes normal facial exam Mouth: Normal oral and palatal mucosa present Throat: Yes posterior oropharynx normal Eyes: General: appearance normal, both eyes and all related structures Pupils: Equal, round and reactive pupils present Neck: Neck: Yes normal visual inspection Chest: Chest palpation & inspection: normal inspection of the chest Resp: Effort & Inspection: normal respiratory effort Auscultation: clear to auscultation bilaterally Cardio: Rate: regular rate Rhythm: regular rhythm Peripheral pulses: Peripheral pulses 2+ throughout GI: Inspection: Yes normal to inspection Palpation (GI): Soft to palpation and nontender Auscultation: normal bowel sounds : Other: Molina catheter in place. clear yellow urine Back/Spine/Pelvis: Thoracic/Lumbar Spine: thoracic and lumbar spine normal to inspection Skin: General skin exam: no rashes or lesions noted Neuro: General: patient oriented x3, no focal motor deficits and normal sensation to monofilament Cranial nerves: Yes Equal, round and reactive pupils present, Yes Normal facial strength present and Yes Midline tongue present Cognition (Neuro): normal cognition Speech: No Abnormal speech present Gait exam (Neuro): Normal gait present Sensory Exam: Normal double simultaneous stimulation for sensation Extrem: General: Yes normal to inspection Course Course Course Narrative: 69 yo female here with generalized weakness seeking placement in a short term rehab. Recent admit 06/29-06/30 for subacte CVA with subsequent ED visit 07/05 where she was offered STR but declined. Patient tells me she now would like this. Will repeat labs, UA, EKG, COVID swab, PT eval, CM eval. 1630-labs unchanged from baseline. EKG unchanged from baseline. COVID swab negative. UA appears infected. Will send urine culture. Patient has chronic Molina still may be chronic colonization. Will start on antibiotics until urine culture return. 1700-Per CM patient will remain overnight in the ED and be placed in the morning. Medical Decision Making Medical Records Medical records reviewed: Yes I reviewed the patient's medical records. Lab Data Lab results reviewed: Yes I reviewed the patient's lab results. Result diagrams: 07/09/20 14:46 07/09/20 14:46 Labs: Lab Results 07/09/20 07/09/20 07/09/20 Range/Units 14:43 14:46 14:46 WBC 8.1 (4.8-10.8) X10*3/uL RBC 5.08 (4.20-5.50) X10*6/uL Hgb 14.8 (12.0-16.0) g/dl Hct 44.3 (37-47) % MCV 87.2 (80-98) fL MCH 29.1 (27.0-33.0) pg MCHC 33.4 (31.0-35.0) g/dl RDW 13.2 (11.0-16.0) % Plt Count 153 L (160-400) X10*3/uL MPV 11.9 (9.4-12.3) fL Immature Gran % (Auto) 0.2 (0.0-0.4) % Neut % (Auto) 72.4 (45-73) % Lymph % (Auto) 19.3 L (20-40) % Snyder % (Auto) 6.1 (2-11) % Eos % (Auto) 1.9 (0-4) % Baso % (Auto) 0.1 (0-2) % Lymph # (Auto) 1.6 (1.2-4.9) X10*3/uL Snyder # (Auto) 0.5 (0.1-1.2) X10*3/uL Eos # (Auto) 0.2 (0.0-0.4) X10*3/uL Baso # (Auto) 0.0 (0.0-0.2) X10*3/uL Abs Immat Gran (auto) 0.02 (0.00-0.03) X10*3/uL Absolute Neuts (auto) 5.9 (2.0-8.3) X10*3/uL Absolute Nucleated RBC 0.000 (0.0-0.012) X10*3/uL Nucleated RBC % (auto) 0.0 (0.0-0.2) /100WBC Hold Blue Top SEE NOTE Sodium (135-145) mmol/L Potassium (3.3-5.1) mmol/l Chloride (96-108) mmol/L Carbon Dioxide (22-29) mmol/L Anion Gap (12-20) BUN (9-16) mg/dL Creatinine (0.5-1.4) mg/dL Estim Creat Clear Calc Estimated GFR Random Glucose (60-115) mg/dL Calcium (8.4-10.2) mg/dL Urine Color Urine Appearance Urine pH (5.0-8.0) Ur Specific [place] (1.005-1.025) Urine Protein (NEG-TRACE) MG/DL Urine Glucose (UA) (NEG) MG/DL Urine Ketones (NEG) MG/DL Urine Blood (NEG) Urine Nitrite (NEG) Ur Leukocyte Esterase (NEG) Urine RBC (0) /HPF Urine WBC (0-4) /HPF Ur Squamous Epith Cells /LPF Urine Bacteria /LPF COVID-19 (ERIKA) Negative (Negative) COVID-19 Clin Com See Note 07/09/20 07/09/20 Range/Units 14:46 16:21 WBC (4.8-10.8) X10*3/uL RBC (4.20-5.50) X10*6/uL Hgb (12.0-16.0) g/dl Hct (37-47) % MCV (80-98) fL MCH (27.0-33.0) pg MCHC (31.0-35.0) g/dl RDW (11.0-16.0) % Plt Count (160-400) X10*3/uL MPV (9.4-12.3) fL Immature Gran % (Auto) (0.0-0.4) % Neut % (Auto) (45-73) % Lymph % (Auto) (20-40) % Snyder % (Auto) (2-11) % Eos % (Auto) (0-4) % Baso % (Auto) (0-2) % Lymph # (Auto) (1.2-4.9) X10*3/uL Snyder # (Auto) (0.1-1.2) X10*3/uL Eos # (Auto) (0.0-0.4) X10*3/uL Baso # (Auto) (0.0-0.2) X10*3/uL Abs Immat Gran (auto) (0.00-0.03) X10*3/uL Absolute Neuts (auto) (2.0-8.3) X10*3/uL Absolute Nucleated RBC (0.0-0.012) X10*3/uL Nucleated RBC % (auto) (0.0-0.2) /100WBC Hold Blue Top Sodium 131 L (135-145) mmol/L Potassium 4.2 (3.3-5.1) mmol/l Chloride 90 L (96-108) mmol/L Carbon Dioxide 35 H (22-29) mmol/L Anion Gap 10 L (12-20) BUN 8 L (9-16) mg/dL Creatinine 0.59 (0.5-1.4) mg/dL Estim Creat Clear Calc 110.7 Estimated GFR > 60 Random Glucose 178 H D (60-115) mg/dL Calcium 8.6 (8.4-10.2) mg/dL Urine Color STRAW Urine Appearance CLEAR Urine pH 7.0 (5.0-8.0) Ur Specific [place] 1.010 (1.005-1.025) Urine Protein NEG (NEG-TRACE) MG/DL Urine Glucose (UA) NEG (NEG) MG/DL Urine Ketones NEG (NEG) MG/DL Urine Blood 1+ H (NEG) Urine Nitrite POS H (NEG) Ur Leukocyte Esterase 3+ H (NEG) Urine RBC 1-4 (0) /HPF Urine WBC 50-75 H (0-4) /HPF Ur Squamous Epith Cells NONE /LPF Urine Bacteria 3+ /LPF COVID-19 (ERIKA) (Negative) COVID-19 Clin Com ECG Data Attestation: I personally reviewed and interpreted this ECG as follows: Interpretation: Sinus rhythm with first-degree AV block, normal rate, normal QRS, normal QT Discharge Plan Discharge Clinical Impression: Weakness UTI (urinary tract infection) Qualifiers: Urinary tract infection type: catheter-associated UTI Indwelling urinary catheter type: indwelling urethral catheter Encounter type: initial encounter Qualified Code(s): T83.511A - Infection and inflammatory reaction due to indwelling urethral catheter, initial encounter Patient Disposition: [facility] Prescriptions: No Action furosemide 40 mg tablet 40 mg PO BID RF: 0 ipratropium-albuterol 0.5 mg-3 mg(2.5 mg base)/3 mL solution for nebulization 1 vial inhalation Q4-6H PRN (Reason: Shortness Of Breath) RF: 0 aspirin 81 mg tablet,delayed release (DR/EC) 1 tab PO DAILY RF: 0 simvastatin [Zocor] 40 mg tablet 40 mg PO BEDTIME RF: 0 Flovent Diskus 100 mcg/actuation blister with device 2 puff PO BID RF: 0 docusate sodium 100 mg capsule 1 - 2 cap PO BID PRN (Reason: Constipation) RF: 0 lisinopril 5 mg tablet 1 tab PO DAILY RF: 0 nystatin 100,000 unit/gram powder 1 appl topical BID PRN (Reason: Rash) RF: 0 albuterol sulfate [ProAir HFA] 90 mcg/actuation HFA aerosol inhaler 1 - 2 puff PO Q4-6H PRN (Reason: Shortness Of Breath) RF: 0 loratadine 10 mg tablet 1 tab PO DAILY RF: 0 insulin lispro [Humalog KwikPen Insulin] 100 unit/mL insulin pen 0 unit subcut TIDAC RF: 0 Lantus Solostar U-100 Insulin 100 unit/mL (3 mL) insulin pen 60 unit subcut DAILY RF: 0 clopidogrel 75 mg Tablet 75 mg PO DAILY Qty: 30 RF: 0 gabapentin 300 mg Capsule 300 mg PO TID RF: 0 nystatin 100,000 unit/gram Cream 1 appl TOPICAL BID RF: 0 metoprolol tartrate 100 mg Tablet 50 mg PO BID RF: 0
[2020-07-09 14:53] LABS: Basophils Percent Auto 0.1 % (0-2); Eosinophils Absolute Auto 0.2 X10*3/uL (0.0-0.4); Eosinophils Percent Auto 1.9 % (0-4); Hematocrit 44.3 % (37-47); Hemoglobin 14.8 g/dl (12.0-16.0); Imm Gran Abs Auto 0.02 X10*3/uL (0.00-0.03); Imm Gran Pct Auto 0.2 % (0.0-0.4); Lymphocytes Absolute Auto 1.6 X10*3/uL (1.2-4.9); Lymphocytes Percent Auto 19.3 % (20-40); MANUAL DIFF FLAG NO; Mean Corpuscular HGB Conc 33.4 g/dl (31.0-35.0); Mean Corpuscular Hemoglobin 29.1 pg (27.0-33.0); Mean Corpuscular Volume 87.2 fL (80-98); Mean Platelet Volume 11.9 fL (9.4-12.3); Monocytes Absolute Auto 0.5 X10*3/uL (0.1-1.2); Monocytes Percent Auto 6.1 % (2-11); Neutrophils Absolute Auto 5.9 X10*3/uL (2.0-8.3); Neutrophils Percent Auto 72.4 % (45-73); Platelet Count 153 X10*3/uL (160-400); Red Blood Count 5.08 X10*6/uL (4.20-5.50); Red Cell Distribution Width 13.2 % (11.0-16.0); White Blood Count 8.1 X10*3/uL (4.8-10.8)
[2020-07-09 15:09] LABS: COVID-19 Test Negative (Negative)
[2020-07-09 15:14] LABS: Anion Gap 10 (12-20); Blood Urea Nitrogen 8 mg/dL (9-16); Calcium 8.6 mg/dL (8.4-10.2); Carbon Dioxide 35 mmol/L (22-29); Chloride 90 mmol/L (96-108); Creatinine Clr Calc Pharmacy 110.7; Estimated Glomerular Filt Rate > 60; Glucose Random 178 mg/dL (60-115); Potassium 4.2 mmol/l (3.3-5.1); Sodium 131 mmol/L (135-145)
[2020-07-09 16:26] LABS: Glucose Urine UA NEG (NEG); Leukocyte Esterase Urine 3+ (NEG); Nitrite Urine POS (NEG); Urine Blood 1+ (NEG); Urine Ketones NEG (NEG); Urine Protein NEG (NEG-TRACE)
--- NOTE | 2020-07-09 16:29 | MHC.CM.ED ---
Received case management consult from [facility] DHALIWAL. Patient came to ER to go to short term rehab. Spoke with patient's daughter Deb via telephone. Since patient was discharged home on 06/30, she has required 24 hour care from Deb. Deb is requesting patient be placed in short term rehab. Met with patient. Patient lives alone, has a scooter for mobilty but has been bedbound since her CVA. [facility] hours through [facility]. Patient agreeable to referral being broadcasted. [facility] is first choice. They will not be able to offer a bed before tomorrow. Patient aware and will spend the night in the ER. Continue to [facility] for d/c needs.
[2020-07-09 16:35] LABS: Appearance Urine CLEAR; Color Urine STRAW
[2020-07-09 16:36] LABS: Bacteria Urine 3+ /LPF; WBC Urine 50-75 /HPF (0-4)
[2020-07-09] MEDS: cephALEXin 500 MG CAPSULE PO (17:40)
[2020-07-09 18:22] LABS: Glucose, Whole Blood 140 mg/dL (60-115)
--- NOTE | 2020-07-09 18:56 | PC.NURSE ---
pt reports feeling anxiety and sob. MLP Aware. meds verifed. patient to recieve prn albuterol inhaler.
[2020-07-09] MEDS: Albuterol Sulfate 90 MCG 8 GM INHALER 1 PUFF INHALE (19:04)
--- NOTE | 2020-07-09 19:52 | PC.NURSE ---
Consult to care team placed. Patient is tearful intermittently. Pt has signficant life stressors. Consult placed to identify strategies to help make STR placement successful for patient. Antonieta in room now.
--- NOTE | 2020-07-09 20:48 | MHC.CARE ---
CARE Team is requested to meet with patient to provide emotional support, as pt has been crying in her room, and has had trouble regulating her emotions. Pt denies SI/HI. Pt inventories a host of medical issues she has been dealing with recently, including a stroke. Pt identifies increased anxiety since having this stroke. he describes hallucinations that she had during the stroke which were very disturbing to her. She denies any prior mental health concerns, stating, I'm not usually like this, I am usually a very positive person. Patient identifies feeling overwhelmed by these numerous stressors, and identifies that she often holds everything inside because she does not want to be a burden on her family. CARE Team engages client in stress reduction techniques, including mindful guided visualization. Pt is able to describe her horse, Lizzie, in great detail, and visualizes herself riding her horse through the [place]. Pt is also able to list three things she is grateful for, and speaks about her grandchildren with a smile. CARE Team encourages pt to focus on what is in her control, such as her thoughts, and to identify the things that are out of her control and not dwell on these thoughts. Pt appears to be relaxed and emotionally regulated after this intervention, requesting that CARE Team put something funny on the TV. Pt is not in need of crisis evaluation at this time, but CARE Team should be consulted if additional support/stress reduction is needed. CARE Team discusses interventions with DAJA Singh.
[2020-07-09] MEDS: Metoprolol Tartrate 100 MG TABLET 50 MG PO (21:11)
[2020-07-09] MEDS: Furosemide 40 MG TABLET PO (21:11)
[2020-07-09] MEDS: Gabapentin 300 MG CAPSULE PO (21:12)
[2020-07-09] MEDS: Nystatin Powder 15 GM BOTTLE 1 APPL TOPICAL (21:41)
[2020-07-09] MEDS: Nystatin Cream 15 GM TUBE 1 APPL TOPICAL (21:41)
[2020-07-10] VITALS (7 sets, daily range): BP systolic 103–129; BP diastolic 58–65; PULSE 66–74; RESP 18–20; TEMP 36.3; O2SAT 97–98
--- NOTE | 2020-07-10 07:00 | PC.NURSE ---
received report from neymar roberts
[2020-07-10 07:57] LABS: Glucose, Whole Blood 213 mg/dL (60-115)
--- NOTE | 2020-07-10 08:02 | PC.NURSE ---
pt sleeping but easily arousable, skin pwd, reparations even and unlabored, sugar checked 212, called pharmacy to put in a sliding scale for the lispro. pt reports having some right leg/shoulder pain about 8/10, rai inplace and draining well emptied 1600 of yellow urine. 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 pt aware of plan to go to rehab
[2020-07-10] MEDS: Insulin Lispro 100 UNIT/ML 3 ML VIAL SUBCUT (08:14)
[2020-07-10] MEDS: lisinopriL 5 MG TABLET PO (08:16)
[2020-07-10] MEDS: Loratadine 10 MG TABLET PO (08:16)
[2020-07-10] MEDS: Furosemide 40 MG TABLET PO (08:16)
[2020-07-10] MEDS: Atorvastatin Calcium 20 MG TABLET PO (08:16)
[2020-07-10] MEDS: Gabapentin 300 MG CAPSULE PO (08:16)
[2020-07-10] MEDS: Aspirin Enteric Coated 81 MG TABLET.DR PO (08:16)
[2020-07-10] MEDS: Clopidogrel Bisulfate 75 MG TABLET PO (08:17)
[2020-07-10] MEDS: Metoprolol Tartrate 100 MG TABLET 50 MG PO (08:17)
[2020-07-10] MEDS: Fluticasone Propionate 100 MCG BLST.W.DEV 2 PUFF INHALE (08:22)
[2020-07-10 09:13] LABS: Glucose, Whole Blood 206 mg/dL (60-115)
--- NOTE | 2020-07-10 09:35 | PC.NURSE ---
pt's breakfast try finally arrived, pt is currently eating her breakfast
[2020-07-10] MEDS: Insulin Glargine,Hum.rec.anlog 100 UNIT/ML 10 ML VIAL 60 UNIT SUBCUT (09:48)
--- NOTE | 2020-07-10 11:59 | MHC.CM.PN ---
patient and daughter (santosh) requested to go to [facility] a ref. has been made, pt has been accepted and is leaving [facility] at 1 pm. kinjal blackmon and PA are aware of this dc plan . cm to cont. to follow.
== END 2020-07-10 13:13 | disposition skilled nursing facility (03) ==
PROVIDERS: Nurse Practitioner Family; Emergency Provider Emergency Medicine Emergency Medical Services; PCP Family Medicine
DX: T83.511A Infection and inflammatory reaction due to indwelling urethral catheter, initial encounter (principal); X58.XXXA Exposure to other specified factors, initial encounter; R53.1 Weakness; E11.9 Type 2 diabetes mellitus without complications; I10 Essential (primary) hypertension; Z20.828 Contact with and (suspected) exposure to other viral communicable diseases; Z79.899 Other long term (current) drug therapy; Z79.4 Long term (current) use of insulin; Z79.82 Long term (current) use of aspirin
CPT/HCPCS: 36415; 80048; 81001; 82947; 85025; 87086; 87088; 87186; 87635; 93005; 99285

== ENCOUNTER 2020-07-29 14:40 | Outpatient (REF) | payer MEDICARE, MEDICAID, SELFPAY ==
[2020-07-29 15:09] LABS: Glucose Urine UA NEG (NEG); Leukocyte Esterase Urine TRACE (NEG); Nitrite Urine NEG (NEG); Urine Blood 1+ (NEG); Urine Ketones NEG (NEG); Urine Protein NEG (NEG-TRACE)
[2020-07-29 15:14] LABS: Appearance Urine HAZY; Color Urine YELLOW
[2020-07-29 15:22] LABS: Amorphous Sediment Urine 1+ /LPF; Bacteria Urine 1+ /LPF; RBC Urine 0-2 /HPF (0); Squamous Epithelial Cell Urine 1+ /LPF
== END 2020-07-29 14:41 | disposition home or self-care (01) ==
LOC: HO.LNP 14:40
PROVIDERS: Visit Provider Family Medicine
DX: R39.9 Unspecified symptoms and signs involving the genitourinary system (principal); E11.40 Type 2 diabetes mellitus with diabetic neuropathy, unspecified; I11.0 Hypertensive heart disease with heart failure; I69.398 Other sequelae of cerebral infarction
CPT/HCPCS: 81001; 81003; 87086; 87088; 87186

== ENCOUNTER 2020-08-21 10:08 | Outpatient (REF) | payer MEDICARE, MEDICAID, SELFPAY ==
[2020-08-21 10:50] LABS: Estimated Average Glucose 171 mg/dL; Hemoglobin A1c % 7.6 %
[2020-08-21 10:55] LABS: Anion Gap 14 (12-20); Blood Urea Nitrogen 18 mg/dL (9-16); Carbon Dioxide 35 mmol/L (22-29); Chloride 96 mmol/L (96-108); Cholesterol 103 mg/dL; Estimated Glomerular Filt Rate > 60; Glucose Fasting 65 mg/dL (60-99); HDL Cholesterol 31 mg/dL; LDL Cholesterol Calculated 56 mg/dl; Sodium 141 mmol/L (135-145); Triglycerides 81 mg/dL
== END 2020-08-21 10:09 | disposition home or self-care (01) ==
LOC: HO.LNP 10:08
PROVIDERS: Visit Provider Family Medicine
DX: I69.354 Hemiplegia and hemiparesis following cerebral infarction affecting left non-dominant side (principal); I11.0 Hypertensive heart disease with heart failure; I50.9 Heart failure, unspecified; E11.40 Type 2 diabetes mellitus with diabetic neuropathy, unspecified
CPT/HCPCS: 80048; 80061; 83036

== ENCOUNTER 2020-08-27 12:00 | Outpatient (REF) | payer MEDICARE, MEDICAID, SELFPAY ==
[2020-08-27 12:12] LABS: Appearance Urine HAZY; Color Urine YELLOW; Glucose Urine UA NEG (NEG); Leukocyte Esterase Urine 1+ (NEG); Nitrite Urine NEG (NEG); Urine Blood 1+ (NEG); Urine Ketones NEG (NEG); Urine Protein NEG (NEG-TRACE)
[2020-08-27 12:20] LABS: Bacteria Urine 2+ /LPF; Squamous Epithelial Cell Urine 1+ /LPF
== END 2020-08-27 12:01 | disposition home or self-care (01) ==
LOC: HO.LNP 12:00
PROVIDERS: Visit Provider Family Medicine
DX: Z96.0 Presence of urogenital implants (principal)
CPT/HCPCS: 81001; 87086

== ENCOUNTER 2020-09-20 15:46 | Inpatient (IN) | payer MEDICARE, MEDICAID, SELFPAY ==
[2020-09-20] VITALS (11 sets, daily range): BP systolic 72–138; BP diastolic 35–82; PULSE 64–76; RESP 12–18; TEMP 36.7–36.9; O2SAT 94–96; BMI 37.0
--- NOTE | ~2020-09-20 | CT_ITS ---
EXAMINATION: CT HEAD WITHOUT CONTRAST CLINICAL INFORMATION: Dysarthria. COMPARISON: CT head 06/29/2020 TECHNIQUE: Contiguous axial imaging was performed from the skull base to vertex without intravenous administration of contrast. Coronal and sagittal reformatted images are performed at the CT scanner. [This CT examination was performed using dose optimization techniques as appropriate, variously including the following: *Automated exposure control *Adjustment of mA and/or kV according to patient size (this includes techniques or standardized protocols for targeted exams where dose is matched to indication/reason for exam; i.e. extremities or head) *Use of iterative reconstruction technique] DLP: 700 mGy-cm. FINDINGS: Stable old infarct in the right posterior occipital lobe. There is no evidence of acute intracranial hemorrhage or acute territorial infarction. No abnormal mass-effect or midline shift is seen. [place] to white matter differentiation is well preserved. No extra-axial fluid collections are identified. There is atrophy with prominence of the ventricles and the sulci and hypodensity of the periventricular white matter due to chronic small vessel ischemic disease. There are vascular calcifications of the internal carotid arteries bilaterally. There is no osseous abnormality. The mastoid air cells and visualized portions of the paranasal sinuses are well-aerated. Left orbital globe prosthesis. CT/CT head/brain wo con IMPRESSION: No acute intracranial pathology.
--- NOTE | ~2020-09-20 | CT_ITS ---
EXAMINATION: CT ABDOMEN AND PELVIS WITHOUT CONTRAST CLINICAL INFORMATION: Colitis. COMPARISON: CT abdomen and pelvis 08/05/2019. TECHNIQUE: Multidetector volumetric imaging was performed from the superior aspect of the liver through the pubic symphysis. Sagittal and coronal reformatted images were obtained on the technologist's workstation. This CT examination was performed using dose optimization techniques as appropriate, variously including the following: *Automated exposure control. *Adjustment of mA and/or kV according to patient size (this includes techniques or standardized protocols for targeted exams where dose is matched to indication/reason for exam; i.e. extremities or head). *Use of iterative reconstruction technique. DLP: 1003 mGy-cm FINDINGS: LUNG BASES: Calcified granulomas are noted along with atelectasis/scarring. Dense calcification in the mitral annulus is present. The heart size is normal. LIVER, GALLBLADDER, AND BILIARY TREE: The liver is normal in size, shape, and attenuation. No focal hepatic lesion or biliary ductal dilatation is present. The gallbladder is unremarkable with no evidence of radiopaque gallstones, gallbladder wall thickening, or obvious pericholecystic inflammatory changes. PANCREAS: Unremarkable. SPLEEN: Unremarkable. ADRENAL GLANDS: Unremarkable. KIDNEYS AND URETERS: The kidneys are normal in size, shape, and attenuation. Tiny punctate calcification seen in the upper pole of the left kidney, unchanged. No hydronephrosis, hydroureter, or right-sided calculi seen. No perinephric stranding. BLADDER: A Molina catheter is present in the bladder. GASTROINTESTINAL TRACT: The stomach appears normal. There is mild colonic wall thickening with a somewhat amorphous appearance. Inflammatory changes are present around the descending colon with streaky changes in the paracolic fat. These findings are suggestive of colitis. No pneumatosis is seen. No pericolic fluid collections are seen. No extraluminal gas is seen to suggest perforation. The small bowel is unremarkable. The appendix is unremarkable. ABDOMINAL WALL: No significant hernia is appreciated. Tiny inguinal hernias containing only fat. LYMPH NODES: No retroperitoneal lymphadenopathy. VASCULAR: Calcific aortoiliofemoral changes are present PELVIC VISCERA: An anteverted uterus is present. A left ovarian cyst is present measuring 5.4 x 4.4 x 5.3 cm. There is a tiny bit of calcification seen in the wall of the cyst again (8:51). Previously, this measured 5.2 x 4.3 x 4.0 cm. No right adnexal mass is seen. This cyst is located a bit more anteriorly than was previously seen indicating some mobility. OSSEOUS STRUCTURES: Again noted are marked degenerative changes in the spine with fusion at L4-L5. No bony destructive lesions seen. CT/CT abdomen pelvis wo con IMPRESSION: 1. Abnormal-appearing left colon with areas of pericolonic inflammatory change in the descending colon. These findings are consistent with colitis. No evidence of bowel perforation or pericolonic fluid collections. 2. Incidental note made of tiny non-obstructing left renal calculus, Molina catheter in bladder. Left adnexal cystic mass and degenerative changes in the spine.
--- NOTE | 2020-09-20 16:27 | ECG_ITS ---
Test Reason : LOW BP Blood Pressure : / mmHG Vent. Rate : 069 BPM Atrial Rate : 069 BPM P-R Int : 194 ms QRS Dur : 098 ms QT Int : 430 ms P-R-T Axes : 019 009 091 degrees QTc Int : 460 ms Sinus rhythm with Premature supraventricular complexes Abnormal QRS-T angle, consider primary T wave abnormality Abnormal ECG When compared with ECG of 09-JUL-2020 14:49, Premature supraventricular complexes are now Present Minimal criteria for Septal infarct are no longer Present Referred By: Ari Crain Electronically Signed By:CAMERON HO MD
[2020-09-20 16:28] LABS: MANUAL DIFF FLAG NO
[2020-09-20] MEDS: 0.9 % Sodium Chloride 1,000 ML 999 ML IVCONT ×3 (16:32→17:56)
--- NOTE | 2020-09-20 16:32 | ED_ITS ---
HPI - Neuro Symptoms/Deficit General Chief Complaint: Altered Mental Status Stated Complaint: N/V/D,?STROKE-LIKE SYMPTOMS Time Seen by Provider: 09/20/20 16:10 Source: patient Mode of arrival: EMS Limitations: no limitations History of Present Illness HPI Narrative: Patient's history of right occipital CVA on 06/29/2020 on baby aspirin brought by ambulance for slurred speech which started at around 13:00 lasted for about 10 minutes felt weak on the right side felt very weak lightheaded by the time EMS reached patient had full recovery but still feels overall weak during the same time patient had abdominal cramps and had a big loose bowels which had some bright red blood. Patient is bedbound. 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 on arrival patient's blood pressure was 72/45 pulse rate 76 beats per minute Onset (ago): hour(s) Time: 13:00 Related Data Home Medications Medication Instructions Recorded Confirmed Flovent Diskus 2 puff PO BID 06/15/20 09/20/20 Lantus Solostar U-100 Insulin 60 unit SUBCUT DAILY 06/15/20 09/20/20 albuterol sulfate [ProAir HFA] 1 - 2 puff PO Q4-6H PRN 06/15/20 09/20/20 aspirin 1 tab PO DAILY 06/15/20 09/20/20 docusate sodium 1 - 2 cap PO BID PRN 06/15/20 09/20/20 furosemide 40 mg PO BID 06/15/20 09/20/20 insulin lispro [Humalog KwikPen 0 unit SUBCUT TIDAC 06/15/20 09/20/20 Insulin] ipratropium-albuterol 1 vial INHALATION Q4-6H PRN 06/15/20 09/20/20 lisinopril 1 tab PO DAILY 06/15/20 09/20/20 loratadine 1 tab PO DAILY 06/15/20 09/20/20 simvastatin [Zocor] 40 mg PO BEDTIME 06/15/20 09/20/20 gabapentin 300 mg PO TID 07/09/20 09/20/20 metoprolol tartrate 100 mg PO BID 07/09/20 09/20/20 nystatin 1 appl TOPICAL BID 09/20/20 09/20/20 Allergies Allergy/AdvReac Type Severity Reaction Status Date / Time silver sulfadiazine Allergy Unknown UNK Verified 06/29/20 00:20 [From SILVADENE] Review of Systems Review of Systems: Constitutional : No Weight loss, No Fever, No Chills ENT/Mouth : No sore throat, No Rhinorrhea Eyes: No Eye Pain, No Swelling Cardiovascular : No Chest Pain, no palpitations Respiratory : No Cough, No Sputum, no shortness of breath Gastrointestinal : + Nausea, No Vomiting, +Diarrhea, + abdominal Pain, no black stools Genitourinary : No Dysuria, No Urinary Frequency Musculoskeletal : No joint pain, No Myalgias, No Joint Swelling Skin : No Skin Lesions, No rash Neuro : ++ Weakness, No Numbness, No Dizziness, No Headache Psych : No Anxiety/Panic, No Depression Heme/Lymph: No Bruising, No Lymphadenopathy Endocrine : No Polyuria, No Polydipsia All other systems reviewed and are negative [facility] Past Medical History Medical History Chronic indwelling Molina catheter Chronic UTI Congestive heart failure COPD (chronic obstructive pulmonary disease) Diabetes Glaucoma H/O: CVA (cerebrovascular accident) Hypertension Obesity Osteoarthritis Severe sepsis Surgical History H/O adenoidectomy H/O enucleation of left eyeball History of tonsillectomy Social History Social History Household Members: Family Housing: House Alcohol intake: never Smoking Status: Smoker, status unknown Smoked in Last 30 Days: No Second Hand Smoke Exposure: No Use of substances other than those prescribed or required for medical reasons: No Advance Directives: No Advance Directives Information Provided: Yes service: No Current occupational status: disabled Physical Exam Vital Signs: Vital Signs: Last Vital Signs Temp 98.5 F 09/20/20 22:07 Pulse 67 09/20/20 22:07 Resp 18 09/20/20 22:07 BP 111/58 L 09/20/20 22:07 Pulse Ox 94 09/20/20 22:07 Body Mass Index 37.0 Const: General: comfortable, no acute distress and well developed Nutritional Appearance: obese Orientation/consciousness: oriented to person, oriented to place, oriented to time and patient oriented x3 HENMT: Head: Yes normocephalic and Yes atraumatic Ears: hearing grossly normal bilaterally General nose exam: Normal external nose present Mouth: Normal oral and palatal mucosa present Eyes: Other: Normal vision right eye with normal EOMI left eye enucleated Neck: Neck: Yes normal visual inspection, Yes full ROM and Yes no lymphadenopathy Chest: Chest palpation & inspection: normal palpation of entire chest wall Resp: Effort & Inspection: normal respiratory effort Auscultation: clear to auscultation bilaterally, no crackles, no rales and no rhonchi Cardio: Jugular venous distension: no JVD Palpation: normal PMI Rate: regular rate Rhythm: regular rhythm Heart sounds: S1 normal heart sound present and S2 normal heart sound present Peripheral pulses: Peripheral pulses 2+ throughout GI: Other: Perfuse diarrhea with foul-smelling brown color stool Inspection: Yes normal to inspection Palpation (GI): Soft to palpation, not firm, nontender and no guarding Auscultation: normal bowel sounds : General: Yes no CVA tenderness Back/Spine/Pelvis: Back: no CVA tenderness Thoracic/Lumbar Spine: thoracic and lumbar spine normal to inspection Skin: General skin exam: no rashes or lesions noted Neuro: General: oriented to person, oriented to place, oriented to time, patient oriented x3, tone normal, moves all extremities, Normal light touch and pain sensation, no focal motor deficits, CN's II-XI intact bilaterally and normal sensation to monofilament Extrem: Other: Chronic vascular insufficiency changes bilateral lower extremities with limited range of movement MDM - Neuro Symptoms/Deficit MDM Narrative Medical decision making narrative: Patient elevated white count with increased lactic acid level is stool was sent for C diff. will give her give her IV fluids 30 cc/kilogram patient idea body weight is 131 lb/59 kg will give her 2 L of normal saline for now IV Rocephin given CT scan abdomen done which showed colitis patient's blood pressure improved after IV hydration C diff is negative Patient weakness slurred speech was possible TIA no objective findings in the CT scan will continue aspirin Medical Records Attestation: I reviewed the patient's medical records. Lab Data Attestation: I reviewed the patient's lab results. Result diagrams: 09/20/20 16:21 03/14/21 16:21 Labs: Lab Results 09/20/20 09/20/20 09/20/20 Range/Units 16:21 16:21 16:21 WBC 16.7 H (4.8-10.8) X10*3/uL RBC 5.54 H (4.20-5.50) X10*6/uL Hgb 16.1 H (12.0-16.0) g/dl Hct 50.5 H (37-47) % MCV 91.2 (80-98) fL MCH 29.1 (27.0-33.0) pg MCHC 31.9 (31.0-35.0) g/dl RDW 14.8 (11.0-16.0) % Plt Count 255 D (160-400) X10*3/uL MPV 12.0 (9.4-12.3) fL Immature Gran % (Auto) 0.7 H (0.0-0.4) % Neut % (Auto) 82.5 H (45-73) % Lymph % (Auto) 9.8 L (20-40) % Hamblen % (Auto) 5.5 (2-11) % Eos % (Auto) 1.3 (0-4) % Baso % (Auto) 0.2 (0-2) % Lymph # (Auto) 1.6 (1.2-4.9) X10*3/uL Hamblen # (Auto) 0.9 (0.1-1.2) X10*3/uL Eos # (Auto) 0.2 (0.0-0.4) X10*3/uL Baso # (Auto) 0.0 (0.0-0.2) X10*3/uL Abs Immat Gran (auto) 0.11 H (0.00-0.03) X10*3/uL Absolute Neuts (auto) 13.8 H (2.0-8.3) X10*3/uL Absolute Nucleated RBC 0.000 (0.0-0.012) X10*3/uL Nucleated RBC % (auto) 0.0 (0.0-0.2) /100WBC Hold Purple Top SEE NOTE PT 13.4 H (10.8-13.0) SEC INR 1.1 (0.9-1.1) APTT 37.5 (24.1-38.0) SEC Hold Blue Top SEE NOTE Sodium (135-145) mmol/L Potassium (3.3-5.1) mmol/L Chloride (96-108) mmol/L Carbon Dioxide (22-29) mmol/L Anion Gap (12-20) BUN (9-16) mg/dL Creatinine (0.5-1.4) mg/dL Estim Creat Clear Calc Estimated GFR Fasting Glucose (60-99) mg/dL Lactic Acid (0.5-2.0) mmol/L Lactic Acid Fup @ 2Hr (0.5-2.0) mmol/L Calcium (8.4-10.2) mg/dL Total Bilirubin (0.0-1.0) mg/dL Direct Bilirubin (0.0-0.5) mg/dL AST (5-31) U/L ALT (0-31) U/L Alkaline Phosphatase (39-117) U/L Troponin I High Sens (<3.5-17.0) ng/L Total Protein (6.5-8.0) g/dL Albumin (3.5-5.0) g/dL Lipase (8-78) U/L Urine Color Urine Appearance Urine pH (5.0-8.0) Ur Specific Reeds (1.005-1.025) Urine Protein (NEG-TRACE) MG/DL Urine Glucose (UA) (NEG) MG/DL Urine Ketones (NEG) MG/DL Urine Blood (NEG) Urine Nitrite (NEG) Ur Leukocyte Esterase (NEG) Urine RBC (0) /HPF Urine WBC (0-4) /HPF Ur Squamous Epith Cells /LPF Ur Renal Epithelial Cell /LPF Triple Phos Crystals /LPF Urine Bacteria /LPF Stool Occult Blood (NEG) C. difficile Toxin A&B (Negative) C. difficile Antigen (Negative) C. difficile Interpret 09/20/20 09/20/20 09/20/20 Range/Units 16:21 16:21 16:29 WBC (4.8-10.8) X10*3/uL RBC (4.20-5.50) X10*6/uL Hgb (12.0-16.0) g/dl Hct (37-47) % MCV (80-98) fL MCH (27.0-33.0) pg MCHC (31.0-35.0) g/dl RDW (11.0-16.0) % Plt Count (160-400) X10*3/uL MPV (9.4-12.3) fL Immature Gran % (Auto) (0.0-0.4) % Neut % (Auto) (45-73) % Lymph % (Auto) (20-40) % Hamblen % (Auto) (2-11) % Eos % (Auto) (0-4) % Baso % (Auto) (0-2) % Lymph # (Auto) (1.2-4.9) X10*3/uL Hamblen # (Auto) (0.1-1.2) X10*3/uL Eos # (Auto) (0.0-0.4) X10*3/uL Baso # (Auto) (0.0-0.2) X10*3/uL Abs Immat Gran (auto) (0.00-0.03) X10*3/uL Absolute Neuts (auto) (2.0-8.3) X10*3/uL Absolute Nucleated RBC (0.0-0.012) X10*3/uL Nucleated RBC % (auto) (0.0-0.2) /100WBC Hold Purple Top PT (10.8-13.0) SEC INR (0.9-1.1) APTT (24.1-38.0) SEC Hold Blue Top Sodium 136 (135-145) mmol/L Potassium 4.8 (3.3-5.1) mmol/L Chloride 94 L (96-108) mmol/L Carbon Dioxide 25 (22-29) mmol/L Anion Gap 22 H (12-20) BUN 23 H (9-16) mg/dL Creatinine 1.02 (0.5-1.4) mg/dL Estim Creat Clear Calc 63.4 Estimated GFR 54 Fasting Glucose 266 H D (60-99) mg/dL Lactic Acid (0.5-2.0) mmol/L Lactic Acid Fup @ 2Hr (0.5-2.0) mmol/L Calcium 9.2 (8.4-10.2) mg/dL Total Bilirubin 0.9 (0.0-1.0) mg/dL Direct Bilirubin 0.2 (0.0-0.5) mg/dL AST 33 H (5-31) U/L ALT 23 (0-31) U/L Alkaline Phosphatase 122 H D (39-117) U/L Troponin I High Sens 13.1 (<3.5-17.0) ng/L Total Protein 7.1 (6.5-8.0) g/dL Albumin 3.9 (3.5-5.0) g/dL Lipase 13 (8-78) U/L Urine Color YELLOW Urine Appearance HAZY Urine pH 8.5 H (5.0-8.0) Ur Specific Reeds 1.015 (1.005-1.025) Urine Protein 2+ H (NEG-TRACE) MG/DL Urine Glucose (UA) NEG (NEG) MG/DL Urine Ketones NEG (NEG) MG/DL Urine Blood 1+ H (NEG) Urine Nitrite NEG (NEG) Ur Leukocyte Esterase 2+ H (NEG) Urine RBC 0-2 (0) /HPF Urine WBC 1-4 (0-4) /HPF Ur Squamous Epith Cells 3+ /LPF Ur Renal Epithelial Cell TRACE /LPF Triple Phos Crystals 2+ /LPF Urine Bacteria 4+ /LPF Stool Occult Blood (NEG) C. difficile Toxin A&B (Negative) C. difficile Antigen (Negative) C. difficile Interpret 09/20/20 09/20/20 09/20/20 Range/Units 16:54 17:14 17:14 WBC (4.8-10.8) X10*3/uL RBC (4.20-5.50) X10*6/uL Hgb (12.0-16.0) g/dl Hct (37-47) % MCV (80-98) fL MCH (27.0-33.0) pg MCHC (31.0-35.0) g/dl RDW (11.0-16.0) % Plt Count (160-400) X10*3/uL MPV (9.4-12.3) fL Immature Gran % (Auto) (0.0-0.4) % Neut % (Auto) (45-73) % Lymph % (Auto) (20-40) % Hamblen % (Auto) (2-11) % Eos % (Auto) (0-4) % Baso % (Auto) (0-2) % Lymph # (Auto) (1.2-4.9) X10*3/uL Hamblen # (Auto) (0.1-1.2) X10*3/uL Eos # (Auto) (0.0-0.4) X10*3/uL Baso # (Auto) (0.0-0.2) X10*3/uL Abs Immat Gran (auto) (0.00-0.03) X10*3/uL Absolute Neuts (auto) (2.0-8.3) X10*3/uL Absolute Nucleated RBC (0.0-0.012) X10*3/uL Nucleated RBC % (auto) (0.0-0.2) /100WBC Hold Purple Top PT (10.8-13.0) SEC INR (0.9-1.1) APTT (24.1-38.0) SEC Hold Blue Top Sodium (135-145) mmol/L Potassium (3.3-5.1) mmol/L Chloride (96-108) mmol/L Carbon Dioxide (22-29) mmol/L Anion Gap (12-20) BUN (9-16) mg/dL Creatinine (0.5-1.4) mg/dL Estim Creat Clear Calc Estimated GFR Fasting Glucose (60-99) mg/dL Lactic Acid 3.6 H* (0.5-2.0) mmol/L Lactic Acid Fup @ 2Hr (0.5-2.0) mmol/L Calcium (8.4-10.2) mg/dL Total Bilirubin (0.0-1.0) mg/dL Direct Bilirubin (0.0-0.5) mg/dL AST (5-31) U/L ALT (0-31) U/L Alkaline Phosphatase (39-117) U/L Troponin I High Sens (<3.5-17.0) ng/L Total Protein (6.5-8.0) g/dL Albumin (3.5-5.0) g/dL Lipase (8-78) U/L Urine Color Urine Appearance Urine pH (5.0-8.0) Ur Specific Reeds (1.005-1.025) Urine Protein (NEG-TRACE) MG/DL Urine Glucose (UA) (NEG) MG/DL Urine Ketones (NEG) MG/DL Urine Blood (NEG) Urine Nitrite (NEG) Ur Leukocyte Esterase (NEG) Urine RBC (0) /HPF Urine WBC (0-4) /HPF Ur Squamous Epith Cells /LPF Ur Renal Epithelial Cell /LPF Triple Phos Crystals /LPF Urine Bacteria /LPF Stool Occult Blood POS (NEG) C. difficile Toxin A&B Negative (Negative) C. difficile Antigen Negative (Negative) C. difficile Interpret SEE NOTE 09/20/20 Range/Units 20:29 WBC (4.8-10.8) X10*3/uL RBC (4.20-5.50) X10*6/uL Hgb (12.0-16.0) g/dl Hct (37-47) % MCV (80-98) fL MCH (27.0-33.0) pg MCHC (31.0-35.0) g/dl RDW (11.0-16.0) % Plt Count (160-400) X10*3/uL MPV (9.4-12.3) fL Immature Gran % (Auto) (0.0-0.4) % Neut % (Auto) (45-73) % Lymph % (Auto) (20-40) % Hamblen % (Auto) (2-11) % Eos % (Auto) (0-4) % Baso % (Auto) (0-2) % Lymph # (Auto) (1.2-4.9) X10*3/uL Hamblen # (Auto) (0.1-1.2) X10*3/uL Eos # (Auto) (0.0-0.4) X10*3/uL Baso # (Auto) (0.0-0.2) X10*3/uL Abs Immat Gran (auto) (0.00-0.03) X10*3/uL Absolute Neuts (auto) (2.0-8.3) X10*3/uL Absolute Nucleated RBC (0.0-0.012) X10*3/uL Nucleated RBC % (auto) (0.0-0.2) /100WBC Hold Purple Top PT (10.8-13.0) SEC INR (0.9-1.1) APTT (24.1-38.0) SEC Hold Blue Top Sodium (135-145) mmol/L Potassium (3.3-5.1) mmol/L Chloride (96-108) mmol/L Carbon Dioxide (22-29) mmol/L Anion Gap (12-20) BUN (9-16) mg/dL Creatinine (0.5-1.4) mg/dL Estim Creat Clear Calc Estimated GFR Fasting Glucose (60-99) mg/dL Lactic Acid (0.5-2.0) mmol/L Lactic Acid Fup @ 2Hr 1.7 (0.5-2.0) mmol/L Calcium (8.4-10.2) mg/dL Total Bilirubin (0.0-1.0) mg/dL Direct Bilirubin (0.0-0.5) mg/dL AST (5-31) U/L ALT (0-31) U/L Alkaline Phosphatase (39-117) U/L Troponin I High Sens (<3.5-17.0) ng/L Total Protein (6.5-8.0) g/dL Albumin (3.5-5.0) g/dL Lipase (8-78) U/L Urine Color Urine Appearance Urine pH (5.0-8.0) Ur Specific Reeds (1.005-1.025) Urine Protein (NEG-TRACE) MG/DL Urine Glucose (UA) (NEG) MG/DL Urine Ketones (NEG) MG/DL Urine Blood (NEG) Urine Nitrite (NEG) Ur Leukocyte Esterase (NEG) Urine RBC (0) /HPF Urine WBC (0-4) /HPF Ur Squamous Epith Cells /LPF Ur Renal Epithelial Cell /LPF Triple Phos Crystals /LPF Urine Bacteria /LPF Stool Occult Blood (NEG) C. difficile Toxin A&B (Negative) C. difficile Antigen (Negative) C. difficile Interpret ECG Data Attestation: I personally reviewed and interpreted this ECG as follows: Interpretation: Normal sinus rhythm heart rate 69 beats per minute normal intervals normal axis no acute ST T wave changes no acute ischemia NIH Stroke Scale Internal: Initial- Upon Arrival Level of Consciousness: Alert Level of Consciousness Questions: Answers both questions correctly Level of Consciousness Commands: Performs both tasks correctly Best Gaze: Normal Visual: No visual loss Facial Palsy: Normal Motor Arm (Right): No drift Motor Arm (Left): No drift Motor Leg (Right): No drift Motor Leg (Left): No drift Limb Ataxia: Absent Sensory: Normal Best Language: No aphasia Dysarthia: Normal Extinction and Inattention: No abnormality Score: 0 Discharge Plan Discharge Clinical Impression: Brain TIA, Colitis Patient Disposition: Admitted As Inpatient
[2020-09-20 16:33] LABS: Basophils Percent Auto 0.2 % (0-2); Eosinophils Absolute Auto 0.2 X10*3/uL (0.0-0.4); Eosinophils Percent Auto 1.3 % (0-4); Hematocrit 50.5 % (37-47); Hemoglobin 16.1 g/dl (12.0-16.0); Imm Gran Abs Auto 0.11 X10*3/uL (0.00-0.03); Imm Gran Pct Auto 0.7 % (0.0-0.4); Lymphocytes Absolute Auto 1.6 X10*3/uL (1.2-4.9); Lymphocytes Percent Auto 9.8 % (20-40); Mean Corpuscular HGB Conc 31.9 g/dl (31.0-35.0); Mean Corpuscular Hemoglobin 29.1 pg (27.0-33.0); Mean Corpuscular Volume 91.2 fL (80-98); Monocytes Absolute Auto 0.9 X10*3/uL (0.1-1.2); Monocytes Percent Auto 5.5 % (2-11); Neutrophils Absolute Auto 13.8 X10*3/uL (2.0-8.3); Neutrophils Percent Auto 82.5 % (45-73); Platelet Count 255 X10*3/uL (160-400); Red Blood Count 5.54 X10*6/uL (4.20-5.50); Red Cell Distribution Width 14.8 % (11.0-16.0); White Blood Count 16.7 X10*3/uL (4.8-10.8)
[2020-09-20 16:38] LABS: INTERNATIONAL NORM RATIO 1.1 (0.9-1.1); Prothrombin Time 13.4 SEC (10.8-13.0)
[2020-09-20 16:40] LABS: Partial Thromboplastin Time 37.5 SEC (24.1-38.0)
[2020-09-20 16:51] LABS: Glucose Urine UA NEG (NEG); Leukocyte Esterase Urine 2+ (NEG); Nitrite Urine NEG (NEG); PH 8.5 (5.0-8.0); Specific Gravity - Urine 1.015 (1.005-1.025); UACC Culture Trigger YES; Urine Blood 1+ (NEG); Urine Ketones NEG (NEG)
[2020-09-20 16:52] LABS: Appearance Urine HAZY; Color Urine YELLOW; Urine Protein 2+ MG/DL (NEG-TRACE)
[2020-09-20] MEDS: cefTRIAXone sodium 1 GM in 0.9 % Sodium Chloride 50 ML IV (17:00)
[2020-09-20 17:02] LABS: Alanine Aminotransferase 23 U/L (0-31); Albumin Level 3.9 g/dL (3.5-5.0); Alkaline Phosphatase 122 U/L (39-117); Anion Gap 22 (12-20); Aspartate Amino Transferase 33 U/L (5-31); Bilirubin Direct 0.2 mg/dL (0.0-0.5); Bilirubin Total 0.9 mg/dL (0.0-1.0); Blood Urea Nitrogen 23 mg/dL (9-16); Calcium 9.2 mg/dL (8.4-10.2); Carbon Dioxide 25 mmol/L (22-29); Chloride 94 mmol/L (96-108); Creatinine Clr Calc Pharmacy 63.4; Estimated Glomerular Filt Rate 54; Glucose Fasting 266 mg/dL (60-99); Lipase 13 U/L (8-78); Potassium 4.8 mmol/L (3.3-5.1); Sodium 136 mmol/L (135-145); Total Protein 7.1 g/dL (6.5-8.0)
[2020-09-20 17:16] LABS: Troponin-I High Sensitivity 13.1 ng/L (<3.5-17.0)
[2020-09-20 17:19] LABS: Lactic Acid 3.6 mmol/L (0.5-2.0)
[2020-09-20 17:28] LABS: Bacteria Urine 4+ /LPF; RBC Urine 0-2 /HPF (0); Renal Epithelial Cells Urine TRACE /LPF; Squamous Epithelial Cell Urine 3+ /LPF; Triple Phosphate Crystal Urine 2+ /LPF
[2020-09-20 17:45] LABS: OBS Int Ctl Valid YES; OBS1 POS (NEG)
[2020-09-20 18:22] LABS: CDIFF Ag Negative (Negative); CDIFF Internal ctrl Dots and bkg OK (V); CDiff Toxin Negative (Negative)
[2020-09-20] MEDS: vancomycin HCL 125 MG CAPSULE 250 MG PO (18:26)
[2020-09-20] MEDS: metroNIDAZOLE/NS 500 MG/100 ML PIGGYBACK 100 MG IV (18:27)
[2020-09-20 18:58] LABS: Reflex Lactate? Lactic Acid Added
[2020-09-20] MEDS: Loperamide HCl 2 MG CAPSULE PO (20:54)
[2020-09-20 21:06] LABS: ~Lactic Acid-LAB USE ONLY 1.7 mmol/L (0.5-2.0)
--- NOTE | 2020-09-20 22:49 | P.HPHOSP_ITS ---
History of Present Illness Date of Service: 09/20/20 Chief Complaint: Diarrhea This is a 70-year-old female with an extensive past medical history that includes diabetes, CVA, HTN, CHF among others who presents to the hospital with multiple complaints initially patient reports that after lunch she started experiencing lightheaded, pain under her right jaw, face numbness and tingling, and weakness of both arms more on the right. And some numbness and tingling in her arms. Her symptoms lasted about 10 minutes and resolved spontaneously. Of note patient had a stroke in June and was on Plavix and aspirin for a month, currently on aspirin. 30 minutes after that she started developing severe diarrhea where she has not stopped since then she has continuously had diarrhea since presenting to the ED. she reports abdominal pain in the left lower quadrant, no nausea or vomiting. No fever or chills. Patient reports that she usually has diarrhea every 2 months but never this severe. She denies any recent hospitalizations since June and no recent use of antibiotics. She had corn before lunch with Will potatoes carrots and CABG. No leftovers. Patient hemodynamically stable but her blood pressure was on the lower side, responded to IV fluids, currently blood pressure 103/42. Labs are significant for WBC count of 12.9, PT of 13.4, BUN of 21, creatinine of 0.77, lactic acid of 3.6 that improved to 1.7 after fluids, AST of 33, alk-phos of 122, urine that is positive for leukocyte nitrates, COVID 19-, C diff toxin antigen negative, abdominal pelvic CT showed abnormal appearing left colon with areas of pericolonic inflammatory change in the descending colon. Consistent with colitis. No evidence of bowel perforation or pericolonic fluid collection. Patient will be admitted for further management Past medical history as below and confirmed with patient Review of Systems Review of Systems: Yes all other systems are reviewed and are negative [facility] Medical History (Updated 09/21/20 @ 05:28 by Bryan Smith MD) Chronic indwelling Molina catheter Chronic UTI Congestive heart failure COPD (chronic obstructive pulmonary disease) Diabetes Glaucoma H/O: CVA (cerebrovascular accident) Hypertension Obesity Osteoarthritis Severe sepsis Surgical History H/O adenoidectomy H/O enucleation of left eyeball History of tonsillectomy Social History Household Members: Family Housing: House Alcohol intake: never Smoking Status: Smoker, status unknown Smoked in Last 30 Days: No Second Hand Smoke Exposure: No Use of substances other than those prescribed or required for medical reasons: No Advance Directives: No Advance Directives Information Provided: Yes service: No Current occupational status: disabled Meds Allergies Allergy/AdvReac Type Severity Reaction Status Date / Time silver sulfadiazine Allergy Unknown UNK Verified 06/29/20 00:20 [facility] Home Medications Medication Instructions Recorded Confirmed Last Taken Type Flovent Diskus 2 puff PO BID 06/15/20 09/20/20 07/09/20 History Lantus Solostar U-100 Insulin 60 unit SUBCUT DAILY 06/15/20 09/20/20 07/09/20 History albuterol sulfate [ProAir HFA] 1 - 2 puff PO Q4-6H PRN 06/15/20 09/20/20 06/28/20 History aspirin 1 tab PO DAILY 06/15/20 09/20/20 07/09/20 History docusate sodium 1 - 2 cap PO BID PRN 06/15/20 09/20/20 06/28/20 History furosemide 40 mg PO BID 06/15/20 09/20/20 07/09/20 History insulin lispro [Humalog KwikPen 0 unit SUBCUT TIDAC 06/15/20 09/20/20 06/28/20 History Insulin] ipratropium-albuterol 1 vial INHALATION Q4-6H PRN 06/15/20 09/20/20 06/28/20 History lisinopril 1 tab PO DAILY 06/15/20 09/20/20 07/09/20 History loratadine 1 tab PO DAILY 06/15/20 09/20/20 07/09/20 History simvastatin [Zocor] 40 mg PO BEDTIME 06/15/20 09/20/20 07/08/20 History gabapentin 300 mg PO TID 07/09/20 09/20/20 Unknown History metoprolol tartrate 100 mg PO BID 07/09/20 09/20/20 07/09/20 History nystatin 1 appl TOPICAL BID 09/20/20 09/20/20 Unknown History Physical Exam Vital Signs and Narrative: Vital Signs: Last Vital Signs Temp 98.5 F 09/20/20 22:07 Pulse 67 09/20/20 22:07 Resp 18 09/20/20 22:07 BP 111/58 L 09/20/20 22:07 Pulse Ox 94 09/20/20 22:07 Body Mass Index 37.0 Const: Other: Patient appears comfortable, not in distress General: cooperative and no acute distress Orientation/consciousness: patient oriented x3 Eyes: Other: Left prosthetic eye Resp: Effort & Inspection: normal respiratory effort and able to speak in complete sentences Cardio: Rate: regular rate Rhythm: regular rhythm GI: Palpation (GI): Soft to palpation Auscultation: normal bowel sounds Skin: General skin exam: no rashes or lesions noted Neuro: Other: No neurological deficits General: patient oriented x3 Cognition (Neuro): normal cognition Extrem: General: Yes normal to inspection and Yes no pedal edema Results Labs CBC and Chem 7: 09/21/20 04:22 09/21/20 04:22 Labs: Laboratory Results - last 24 hr 09/20/20 09/20/20 09/20/20 16:21 16:21 16:21 WBC 16.7 H MCV 91.2 MCH 29.1 MCHC 31.9 RDW 14.8 Plt Count 255 D MPV 12.0 Immature Gran % (Auto) 0.7 H Neut % (Auto) 82.5 H Lymph % (Auto) 9.8 L [place] % (Auto) 5.5 Eos % (Auto) 1.3 Baso % (Auto) 0.2 Lymph # (Auto) 1.6 [place] # (Auto) 0.9 Eos # (Auto) 0.2 Baso # (Auto) 0.0 Abs Immat Gran (auto) 0.11 H Absolute Neuts (auto) 13.8 H Absolute Nucleated RBC 0.000 Nucleated RBC % (auto) 0.0 Hold Purple Top SEE NOTE PT 13.4 H INR 1.1 APTT 37.5 Hold Blue Top SEE NOTE Anion Gap Estim Creat Clear Calc Estimated GFR Fasting Glucose Lactic Acid Lactic Acid Fup @ 2Hr Calcium Total Bilirubin Direct Bilirubin AST ALT Alkaline Phosphatase Troponin I High Sens Total Protein Albumin Lipase Urine Color Urine Appearance Urine pH Ur Specific [place] Urine Protein Urine Glucose (UA) Urine Ketones Urine Blood Urine Nitrite Ur Leukocyte Esterase Urine RBC Urine WBC Ur Squamous Epith Cells Ur Renal Epithelial Cell Triple Phos Crystals Urine Bacteria Stool Occult Blood C. difficile Toxin A&B C. difficile Antigen C. difficile Interpret 09/20/20 09/20/20 09/20/20 16:21 16:21 16:29 WBC MCV MCH MCHC RDW Plt Count MPV Immature Gran % (Auto) Neut % (Auto) Lymph % (Auto) [place] % (Auto) Eos % (Auto) Baso % (Auto) Lymph # (Auto) [place] # (Auto) Eos # (Auto) Baso # (Auto) Abs Immat Gran (auto) Absolute Neuts (auto) Absolute Nucleated RBC Nucleated RBC % (auto) Hold Purple Top PT INR APTT Hold Blue Top Anion Gap 22 H Estim Creat Clear Calc 63.4 Estimated GFR 54 Fasting Glucose 266 H D Lactic Acid Lactic Acid Fup @ 2Hr Calcium 9.2 Total Bilirubin 0.9 Direct Bilirubin 0.2 AST 33 H ALT 23 Alkaline Phosphatase 122 H D Troponin I High Sens 13.1 Total Protein 7.1 Albumin 3.9 Lipase 13 Urine Color YELLOW Urine Appearance HAZY Urine pH 8.5 H Ur Specific [place] 1.015 Urine Protein 2+ H Urine Glucose (UA) NEG Urine Ketones NEG Urine Blood 1+ H Urine Nitrite NEG Ur Leukocyte Esterase 2+ H Urine RBC 0-2 Urine WBC 1-4 Ur Squamous Epith Cells 3+ Ur Renal Epithelial Cell TRACE Triple Phos Crystals 2+ Urine Bacteria 4+ Stool Occult Blood C. difficile Toxin A&B C. difficile Antigen C. difficile Interpret 09/20/20 09/20/20 09/20/20 16:54 17:14 17:14 WBC MCV MCH MCHC RDW Plt Count MPV Immature Gran % (Auto) Neut % (Auto) Lymph % (Auto) [place] % (Auto) Eos % (Auto) Baso % (Auto) Lymph # (Auto) [place] # (Auto) Eos # (Auto) Baso # (Auto) Abs Immat Gran (auto) Absolute Neuts (auto) Absolute Nucleated RBC Nucleated RBC % (auto) Hold Purple Top PT INR APTT Hold Blue Top Anion Gap Estim Creat Clear Calc Estimated GFR Fasting Glucose Lactic Acid 3.6 H* Lactic Acid Fup @ 2Hr Calcium Total Bilirubin Direct Bilirubin AST ALT Alkaline Phosphatase Troponin I High Sens Total Protein Albumin Lipase Urine Color Urine Appearance Urine pH Ur Specific [place] Urine Protein Urine Glucose (UA) Urine Ketones Urine Blood Urine Nitrite Ur Leukocyte Esterase Urine RBC Urine WBC Ur Squamous Epith Cells Ur Renal Epithelial Cell Triple Phos Crystals Urine Bacteria Stool Occult Blood POS C. difficile Toxin A&B Negative C. difficile Antigen Negative C. difficile Interpret SEE NOTE 09/20/20 20:29 WBC MCV MCH MCHC RDW Plt Count MPV Immature Gran % (Auto) Neut % (Auto) Lymph % (Auto) [place] % (Auto) Eos % (Auto) Baso % (Auto) Lymph # (Auto) [place] # (Auto) Eos # (Auto) Baso # (Auto) Abs Immat Gran (auto) Absolute Neuts (auto) Absolute Nucleated RBC Nucleated RBC % (auto) Hold Purple Top PT INR APTT Hold Blue Top Anion Gap Estim Creat Clear Calc Estimated GFR Fasting Glucose Lactic Acid Lactic Acid Fup @ 2Hr 1.7 Calcium Total Bilirubin Direct Bilirubin AST ALT Alkaline Phosphatase Troponin I High Sens Total Protein Albumin Lipase Urine Color Urine Appearance Urine pH Ur Specific [place] Urine Protein Urine Glucose (UA) Urine Ketones Urine Blood Urine Nitrite Ur Leukocyte Esterase Urine RBC Urine WBC Ur Squamous Epith Cells Ur Renal Epithelial Cell Triple Phos Crystals Urine Bacteria Stool Occult Blood C. difficile Toxin A&B C. difficile Antigen C. difficile Interpret Imaging Radiologist's Impressions: Impressions Head CT 09/20/20 16:26 IMPRESSION: No acute intracranial pathology. Abdomen/Pelvis CT 09/20/20 19:11 IMPRESSION: 1. Abnormal-appearing left colon with areas of pericolonic inflammatory change in the descending colon. These findings are consistent with colitis. No evidence of bowel perforation or pericolonic fluid collections. 2. Incidental note made of tiny non-obstructing left renal calculus, Molina catheter in bladder. Left adnexal cystic mass and degenerative changes in the spine. Assessment and Plan (1) Colitis: Status: Acute (2) Brain TIA: Status: Acute (3) UTI (urinary tract infection): Qualifiers: Encounter type: initial encounter Indwelling urinary catheter type: indwelling urethral catheter Urinary tract infection type: catheter-associated UTI Qualified Code(s): T83.511A - Infection and inflammatory reaction due to indwelling urethral catheter, initial encounter; N39.0 - Urinary tract infection, site not specified Status: Acute (4) Diarrhea: Status: Acute (5) Hypotension: Status: Acute (6) Congestive heart failure: Status: Inactive (7) Sepsis: Status: Acute This is a 70-year-old female with past medical history of CVA, diabetes, hypertension among others who presents to the hospital with complaints of TIA a like symptoms as well as persistent diarrhea. Found to have colitis # sepsis - has leukocytosis, lactic acidosis, and hypotension - the hypotension most likely a combination of the constant diarrhea - patient resuscitated with IV fluids in the ED - cultures obtained - will follow cultures, IV antibiotics # diarrhea - most likely secondary to her colitis - CT abdomen showing left colon colitis - has leukocytosis, afebrile Plan: - started on ceftriaxone to cover UTI as well as adding Flagyl - follow cultures - stool cultures - C diff negative # colitis - most likely inflammatory/infectious - C diff negative - will obtain stool cultures - ceftriaxone and Flagyl - will follow cultures # TIA? - reports numbness tingling, pain in face as well as upper extremity weakness although bilateral - patient has history of CVA in June currently on aspirin and simvastatin - will switch her simvastatin to atorvastatin - continue aspirin - will consult neurology -will hold off on MRI until neurology evaluation # hypotension - most likely secondary to the constant diarrhea as well as UTI - responded to IV fluids - will monitor at this time - hold off antihypertensive at this time # diabetes - continue her home insulin - will add low-dose sliding scale insulin - diabetic diet DVT prophylaxis: Heparin subQ
[2020-09-20 23:03] LABS: COVID-19 Test Negative (Negative); IDNOW Serial# 9DD0AD1C
[2020-09-21] VITALS (10 sets, daily range): BP systolic 86–146; BP diastolic 39–72; PULSE 67–96; RESP 18–20; TEMP 36.3–36.6; O2SAT 93–100; BMI 37.0
[2020-09-21] MEDS: metroNIDAZOLE/NS 500 MG/100 ML PIGGYBACK 100 MG IV ×3 (01:44→18:21)
[2020-09-21] MEDS: Heparin Sodium,Porcine 5,000 UNIT/ML VIAL 5000 UNIT SUBCUT (01:45)
[2020-09-21 02:13] LABS: Glucose, Whole Blood 91 mg/dL (60-115)
[2020-09-21 02:17] LABS: Lactate Dehydrogenase 127 U/L (122-220)
[2020-09-21 04:27] LABS: MANUAL DIFF FLAG NO
[2020-09-21 04:29] LABS: Basophils Percent Auto 0.2 % (0-2); Eosinophils Absolute Auto 0.2 X10*3/uL (0.0-0.4); Eosinophils Percent Auto 1.4 % (0-4); Hematocrit 41.1 % (37-47); Hemoglobin 13.3 g/dl (12.0-16.0); Imm Gran Abs Auto 0.04 X10*3/uL (0.00-0.03); Imm Gran Pct Auto 0.3 % (0.0-0.4); Lymphocytes Absolute Auto 1.6 X10*3/uL (1.2-4.9); Lymphocytes Percent Auto 12.5 % (20-40); Mean Corpuscular HGB Conc 32.4 g/dl (31.0-35.0); Mean Corpuscular Hemoglobin 29.4 pg (27.0-33.0); Mean Corpuscular Volume 90.7 fL (80-98); Mean Platelet Volume 11.9 fL (9.4-12.3); Monocytes Percent Auto 7.6 % (2-11); Neutrophils Absolute Auto 10.1 X10*3/uL (2.0-8.3); Platelet Count 184 X10*3/uL (160-400); Red Blood Count 4.53 X10*6/uL (4.20-5.50); Red Cell Distribution Width 14.6 % (11.0-16.0); White Blood Count 12.9 X10*3/uL (4.8-10.8)
[2020-09-21 04:58] LABS: Anion Gap 11 (12-20); Blood Urea Nitrogen 21 mg/dL (9-16); Calcium 8.2 mg/dL (8.4-10.2); Carbon Dioxide 30 mmol/L (22-29); Chloride 99 mmol/L (96-108); Estimated Glomerular Filt Rate > 60; Glucose Random 253 mg/dL (60-115); Potassium 3.4 mmol/L (3.3-5.1); Sodium 137 mmol/L (135-145)
[2020-09-21] MEDS: Fluticasone Propionate 100 MCG BLST.W.DEV 2 PUFF INHALE (07:46)
[2020-09-21 08:02] LABS: Glucose, Whole Blood 184 mg/dL (60-115)
[2020-09-21] MEDS: Loratadine 10 MG TABLET PO (08:17)
[2020-09-21] MEDS: Insulin Glargine,Hum.rec.anlog 100 UNIT/ML 10 ML VIAL 60 UNIT SUBCUT (08:17)
[2020-09-21] MEDS: Aspirin Enteric Coated 81 MG TABLET.DR PO (08:17)
[2020-09-21] MEDS: Gabapentin 300 MG CAPSULE PO ×3 (08:17→22:15)
[2020-09-21] MEDS: Atorvastatin Calcium 80 MG TABLET PO (08:17)
[2020-09-21] MEDS: Insulin Lispro 100 UNIT/ML 3 ML VIAL SUBCUT ×4 (08:18→22:15)
[2020-09-21] MEDS: 0.9 % Sodium Chloride Flush 3 ML SYRINGE IVFLUSH ×2 (08:19→15:36)
--- NOTE | 2020-09-21 09:35 | P.PNIM_ITS ---
Subjective Subjective Date of Service: 09/21/20 <Angelita Jacobson NP - Last Filed: 09/21/20 12:46> 09/21/20 <Jin Cam MD - Last Filed: 09/21/20 15:24> Interval History: Follow up for colitis and UTI. Still with watery stool and abdominal pain. <Angelita Jacobson NP - Last Filed: 09/21/20 12:46> Physical Exam Vital Signs: Vital Signs: Last Vital Signs Temp 97.3 F 09/21/20 07:24 Pulse 80 09/21/20 07:24 Resp 18 09/21/20 07:24 BP 124/53 L 09/21/20 08:22 Pulse Ox 100 09/21/20 07:24 Body Mass Index 37.0 <Angelita Jacobson NP - Last Filed: 09/21/20 12:46> Appearing in no acute distress head is normocephalic atraumatic lung sounds normal expansion heart regular rate rhythm Abdomen tender, obese neuro alert and oriented <Angelita Jacobson NP - Last Filed: 09/21/20 12:46> Objective Data Current Medications Generic Name Dose Route Start Last Admin Trade Name Freq PRN Reason Stop Dose Admin Acetaminophen 650 mg 09/21/20 01:13 Acetaminophen 325 Mg Tablet PO Q6H PRN Pain, Mild (Pain Scale 1-3) Albuterol Sulfate 2 puff 09/21/20 01:13 Albuterol Sulfate 90 Mcg 8 Gm Inhaler INHALE Q4H PRN Shortness Of Breath Albuterol/Ipratropium 3 ml 09/21/20 01:13 Albuterol/Iprat 2.5/0.5mg 3 Ml Ampul.Neb INHALE RQ4H PRN Shortness Of Breath Aspirin 81 mg 09/21/20 09:00 09/21/20 08:17 Aspirin Enteric Coated 81 Mg Tablet.Dr PO 81 mg DAILY MARJAN Administration Atorvastatin Calcium 80 mg 09/21/20 09:00 09/21/20 08:17 Atorvastatin Calcium 80 Mg Tablet PO 80 mg DAILY MARJAN Administration Docusate Sodium 100 mg 09/21/20 01:13 Docusate Sodium 100 Mg Capsule PO DAILY PRN Constipation Fluticasone Propionate 2 puff 09/21/20 09:00 09/21/20 07:46 Fluticasone Propionate 100 Mcg Blst.W.Dev INHALE 2 puff BID MARJAN Administration Gabapentin 300 mg 09/21/20 09:00 09/21/20 08:17 Gabapentin 300 Mg Capsule PO 300 mg TID MARJAN Administration Heparin Sodium (Porcine) 5,000 unit 09/21/20 02:00 09/21/20 01:45 Heparin Sodium,Porcine 5,000 Unit/Ml Vial SUBCUT 5,000 unit Q12H MARJAN Administration Ceftriaxone Sodium 1 gm/ 50 mls @ 100 mls/hr 09/21/20 17:00 Sodium Chloride IV Q24H MARJAN Metronidazole 500 mg in 100 mls @ 100 mls/hr 09/21/20 02:00 09/21/20 03:36 Flagyl IV Infused Q8H MARJAN Infusion Insulin Glargine 60 unit 09/21/20 09:00 09/21/20 08:17 Insulin Glargine,Hum.Rec.Anlog 100 Unit/Ml 10 Ml Vial SUBCUT 60 unit DAILY MARJAN Administration Insulin Human Lispro 0 unit 09/21/20 07:30 09/21/20 08:18 Insulin Lispro 100 Unit/Ml 3 Ml Vial SUBCUT 2 unit QIDACHS [facility] Administration Protocol Loratadine 10 mg 09/21/20 09:00 09/21/20 08:17 Loratadine 10 Mg Tablet PO 10 mg DAILY [facility] Administration Nystatin 1 appl 09/21/20 09:00 Nystatin Cream 15 Gm Tube TOPICAL BID [facility] Protocol Ondansetron HCl 4 mg 09/21/20 01:13 Ondansetron Hcl 4 Mg/2 Ml Vial IVPUSH Q8H PRN Nausea and Vomiting Sodium Chloride 3 ml 09/21/20 01:13 09/21/20 08:19 0.9 % Sodium Chloride Flush 3 Ml Syringe IVFLUSH 3 ml QSHIFT [facility] Administration <Angelita Jacobson NP - Last Filed: 09/21/20 12:46> Labs CBC & Chem 7: : 09/21/20 13:04 09/21/20 04:22 <Angelita Jacobson NP - Last Filed: 09/21/20 12:46> Assessment and Plan (1) Colitis: Status: Acute <Angelita Jacobson NP - Last Filed: 09/21/20 12:46> (2) Brain TIA: Status: Acute <Angelita Jacobson NP - Last Filed: 09/21/20 12:46> (3) UTI (urinary tract infection): Status: Acute <Angelita Jacobson NP - Last Filed: 09/21/20 12:46> (4) Diarrhea: Status: Acute <Angelita Jacobson NP - Last Filed: 09/21/20 12:46> (5) Hypotension: Status: Acute <Angelita Jacobson NP - Last Filed: 09/21/20 12:46> (6) Congestive heart failure: Status: Inactive <Angelita Jacobson NP - Last Filed: 09/21/20 12:46> (7) Sepsis: Status: Acute <Angelita Jacobson NP - Last Filed: 09/21/20 12:46> Assessment and Plan: This is a 70-year-old female with past medical history of CVA, diabetes, hyper tension among others who presents to the hospital with complaints of TIA a like symptoms as well as persistent diarrhea. Found to have colitis # Sepsis-Thought to have sepsis on admission however, only had leukocytosis with no other SIRS criteria. # Colitis-most likely inflammatory/infectious -GI consult if symptoms persist. -C diff negative, stool cx and wbc pending -continue ceftriaxone and Flagyl # UTI. Follow culture. -Continue Rocephin # TIA. CVA in 06/28 on aspirin and statin. Symptoms seem more likely from infection. -will consult neurology for evaluation of MRI if needed. # Hypotension. Likely from hypovolemia secondary to diarrhea. -improving, start maintenance IV fluids -hold antihypertensives until BP improves. # Diabetes -continue her home insulin -Sliding scale -diabetic diet # Obesity. BMI 37.0 -Obesity could be contributing to worsening symptoms of other comorbidities Attending: Dr. Cam. <Angelita Jacobson NP - Last Filed: 09/21/20 12:46>
--- NOTE | 2020-09-21 11:38 | MHC.CM.PN ---
Addendum entered by Delaney Chatterjee 09/21/20 12:06: CORRECTION ; [facility] RECENTLY DISCHARGED PATIENT FROM SERVICE, AND ARE FOLLOWING FOR NEW START OF CARE. Original Note: PATIENT LIVES ALONE. 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 PATIENT IS A [employer] TO TRANSFER. SHE HAS A SPECIALIZED RECLINING WHEEL CHAIR IN THE HOME. [facility] PROVIDES SERVICES FOR CATH MANAGEMENT/CARE. CASE MANAGEMENT FOLLOWING FOR DISCHARGE NEEDS. IMM 09/21 IN CHART.
--- NOTE | 2020-09-21 11:46 | P.CNNE_ITS ---
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 She came to hospital with number of symptoms including sudden onset of generalized weakness and right-sided facial numbness and difficulty speaking. She also developed severe diarrhea around that time. Review of Systems Review of Systems: Significant diarrhea and lightheadedness. She also reported having low blood pressure recently. [facility] Past Medical History Medical History (Updated 09/21/20 @ 11:50 by Susanne Castro MD) Chronic indwelling Molina catheter Chronic UTI Congestive heart failure COPD (chronic obstructive pulmonary disease) Diabetes Glaucoma H/O: CVA (cerebrovascular accident) Hypertension Obesity Osteoarthritis Severe sepsis Surgical History Surgical History H/O adenoidectomy H/O enucleation of left eyeball History of tonsillectomy Social History Social History Household Members: Children and Caregiver Housing: Apartment Alcohol intake: never Smoking Status: Never smoker Second Hand Smoke Exposure: No service: No Current occupational status: disabled Meds Allergies Allergy/AdvReac Type Severity Reaction Status Date / Time silver sulfadiazine Allergy Unknown UNK Verified 06/29/20 00:20 [From SILVADENE] Active Medications: Current Medications Generic Name Dose Route Start Last Admin Trade Name Freq PRN Reason Stop Dose Admin Acetaminophen 650 mg 09/21/20 01:13 Acetaminophen 325 Mg Tablet PO Q6H PRN Pain, Mild (Pain Scale 1-3) Albuterol Sulfate 2 puff 09/21/20 01:13 Albuterol Sulfate 90 Mcg 8 Gm Inhaler INHALE Q4H PRN Shortness Of Breath Albuterol/Ipratropium 3 ml 09/21/20 01:13 Albuterol/Iprat 2.5/0.5mg 3 Ml Ampul.Neb INHALE RQ4H PRN Shortness Of Breath Aspirin 81 mg 09/21/20 09:00 09/21/20 08:17 Aspirin Enteric Coated 81 Mg Tablet. PO 81 mg DAILY MARJAN Administration Atorvastatin Calcium 80 mg 09/21/20 09:00 09/21/20 08:17 Atorvastatin Calcium 80 Mg Tablet PO 80 mg DAILY [facility] Administration Docusate Sodium 100 mg 09/21/20 01:13 Docusate Sodium 100 Mg Capsule PO DAILY PRN Constipation Fluticasone Propionate 2 puff 09/21/20 09:00 09/21/20 07:46 Fluticasone Propionate 100 Mcg Blst.W.Dev INHALE 2 puff BID MARJAN Administration Gabapentin 300 mg 09/21/20 09:00 09/21/20 08:17 Gabapentin 300 Mg Capsule PO 300 mg TID [facility] Administration Ceftriaxone Sodium 1 gm/ 50 mls @ 100 mls/hr 09/21/20 17:00 Sodium Chloride IV Q24H [facility]JAN Metronidazole 500 mg in 100 mls @ 100 mls/hr 09/21/20 02:00 09/21/20 03:36 Flagyl IV Infused Q8H [facility] Infusion Insulin Glargine 60 unit 09/21/20 09:00 09/21/20 08:17 Insulin Glargine,Hum.Rec.Anlog 100 Unit/Ml 10 Ml Vial SUBCUT 60 unit DAILY [facility] Administration Insulin Human Lispro 0 unit 09/21/20 07:30 09/21/20 08:18 Insulin Lispro 100 Unit/Ml 3 Ml Vial SUBCUT 2 unit QIDACHS [facility] Administration Protocol Loratadine 10 mg 09/21/20 09:00 09/21/20 08:17 Loratadine 10 Mg Tablet PO 10 mg DAILY [facility] Administration Nystatin 1 appl 09/21/20 09:00 Nystatin Cream 15 Gm Tube TOPICAL BID [facility] Protocol Ondansetron HCl 4 mg 09/21/20 01:13 Ondansetron Hcl 4 Mg/2 Ml Vial IVPUSH Q8H PRN Nausea and Vomiting Sodium Chloride 3 ml 09/21/20 01:13 09/21/20 08:19 0.9 % Sodium Chloride Flush 3 Ml Syringe IVFLUSH 3 ml QSHIFT [facility] Administration Home Medications Medication Instructions Recorded Confirmed Last Taken Type Flovent Diskus 2 puff PO BID 06/15/20 09/20/20 07/09/20 History Lantus Solostar U-100 Insulin 60 unit SUBCUT DAILY 06/15/20 09/20/20 07/09/20 History albuterol sulfate [ProAir HFA] 1 - 2 puff PO Q4-6H PRN 06/15/20 09/20/20 06/28/20 History aspirin 1 tab PO DAILY 06/15/20 09/20/20 07/09/20 History docusate sodium 1 - 2 cap PO BID PRN 06/15/20 09/20/20 06/28/20 History furosemide 40 mg PO BID 06/15/20 09/20/20 07/09/20 History insulin lispro [Humalog KwikPen 0 unit SUBCUT TIDAC 06/15/20 09/20/20 06/28/20 History Insulin] ipratropium-albuterol 1 vial INHALATION Q4-6H PRN 06/15/20 09/20/20 06/28/20 History lisinopril 1 tab PO DAILY 06/15/20 09/20/20 07/09/20 History loratadine 1 tab PO DAILY 06/15/20 09/20/20 07/09/20 History simvastatin [Zocor] 40 mg PO BEDTIME 06/15/20 09/20/20 07/08/20 History gabapentin 300 mg PO TID 07/09/20 09/20/20 Unknown History metoprolol tartrate 100 mg PO BID 07/09/20 09/20/20 07/09/20 History nystatin 1 appl TOPICAL BID 09/20/20 09/20/20 Unknown History Physical Exam Vital Signs: Vital Signs: Last Vital Signs Temp 97.7 F 09/21/20 11:06 Pulse 77 09/21/20 11:06 Resp 18 09/21/20 11:06 BP 112/53 L 09/21/20 11:06 Pulse Ox 96 09/21/20 11:06 Body Mass Index 37.0 He was alert and awake with normal spontaneity of speech fluency comprehension and affect. 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 Right eye pupil was okay with normal visual ruiz. Face otherwise seems symmetrical. She was using both arms. There was no obvious focal weakness. Deep tendon reflexes were absent with flexor plantars. Results Labs CBC & Chem 7: 09/21/20 04:22 09/21/20 04:22 Labs: Short CBC 09/20/20 09/21/20 Range/Units 16:21 04:22 WBC 16.7 H 12.9 H (4.8-10.8) X10*3/uL Hgb 16.1 H 13.3 (12.0-16.0) g/dl Hct 50.5 H 41.1 (37-47) % Plt Count 255 D 184 D (160-400) X10*3/uL BMP 09/20/20 09/21/20 16:21 04:22 Sodium 136 137 Potassium 4.8 3.4 D Chloride 94 L 99 Carbon Dioxide 25 30 H BUN 23 H 21 H Creatinine 1.02 0.77 Calcium 9.2 8.2 L D Liver Function 09/20/20 Range/Units 16:21 Total Bilirubin 0.9 (0.0-1.0) mg/dL Direct Bilirubin 0.2 (0.0-0.5) mg/dL AST 33 H (5-31) U/L ALT 23 (0-31) U/L Alkaline Phosphatase 122 H D (39-117) U/L Albumin 3.9 (3.5-5.0) g/dL Urine 09/20/20 Range/Units 16:29 Urine Color YELLOW Urine Appearance HAZY Urine pH 8.5 H (5.0-8.0) Ur Specific Snelling 1.015 (1.005-1.025) Urine Protein 2+ H (NEG-TRACE) MG/DL Urine Glucose (UA) NEG (NEG) MG/DL Head CT without contrast revealed a chronic right parieto-occipital wedge-shaped infarct. Assessment and Plan (1) Cerebral infarction: Status: Acute As far as her symptoms are concerned including diarrhea it would be difficult to explain based upon a stroke. On the other hand she was at risk for vascular disease. I would continue present line of treatment with anti- platelet agent and management of blood pressure in a way to avoid hypotension. For now no further neurological workup is needed. If any stroke-like symptoms recur, MRI brain without contrast can help to rule out any further possibility of cerebral embolism.
[2020-09-21 11:52] LABS: Glucose, Whole Blood 220 mg/dL (60-115)
[2020-09-21] MEDS: Nystatin Cream 15 GM TUBE 1 APPL TOPICAL ×2 (11:58→22:16)
[2020-09-21 13:43] LABS: Hematocrit 39.4 % (37-47); Hemoglobin 12.7 g/dl (12.0-16.0)
[2020-09-21] MEDS: Lactated Ringers 1,000 ML 100 ML IVCONT (15:34)
[2020-09-21 16:58] LABS: Glucose, Whole Blood 275 mg/dL (60-115)
--- NOTE | 2020-09-21 17:24 | PC.NURSE ---
no dinner delivered yet.Order cancelled per kitchen but this RN has no info supporting this decision.Md to evaluate and let me know.
[2020-09-21] MEDS: cefTRIAXone sodium 1 GM in 0.9 % Sodium Chloride 50 ML IV (17:31)
[2020-09-21 20:58] LABS: Glucose, Whole Blood 340 mg/dL (60-115)
[2020-09-22] VITALS (8 sets, daily range): BP systolic 118–169; BP diastolic 59–78; PULSE 71–95; RESP 16–18; TEMP 36–36.7; O2SAT 92–98
[2020-09-22] MEDS: metroNIDAZOLE/NS 500 MG/100 ML PIGGYBACK 100 MG IV ×3 (03:16→17:01)
[2020-09-22] MEDS: Lactated Ringers 1,000 ML 100 ML IVCONT (04:33)
[2020-09-22 06:13] LABS: MANUAL DIFF FLAG NO
[2020-09-22 06:17] LABS: Basophils Percent Auto 0.4 % (0-2); Eosinophils Absolute Auto 0.5 X10*3/uL (0.0-0.4); Eosinophils Percent Auto 4.7 % (0-4); Hemoglobin 11.9 g/dl (12.0-16.0); Imm Gran Abs Auto 0.03 X10*3/uL (0.00-0.03); Imm Gran Pct Auto 0.3 % (0.0-0.4); Lymphocytes Absolute Auto 1.9 X10*3/uL (1.2-4.9); Lymphocytes Percent Auto 19.3 % (20-40); Mean Corpuscular HGB Conc 33.1 g/dl (31.0-35.0); Mean Corpuscular Hemoglobin 29.5 pg (27.0-33.0); Mean Corpuscular Volume 89.3 fL (80-98); Mean Platelet Volume 11.8 fL (9.4-12.3); Monocytes Absolute Auto 0.6 X10*3/uL (0.1-1.2); Monocytes Percent Auto 6.1 % (2-11); Neutrophils Absolute Auto 6.8 X10*3/uL (2.0-8.3); Neutrophils Percent Auto 69.2 % (45-73); Platelet Count 148 X10*3/uL (160-400); Red Blood Count 4.03 X10*6/uL (4.20-5.50); Red Cell Distribution Width 14.6 % (11.0-16.0); White Blood Count 9.8 X10*3/uL (4.8-10.8)
--- NOTE | 2020-09-22 06:37 | PC.NURSE ---
PATIENT RESTED WELL THIS 8 HOUR SHIFT WITH NO S/SX ACUTE RESP DISTRESS. VITALS 97.7-74-20-105/52, AND THEN 97.1-64-18-107/49, O2 AT 3L/M N/C AND SAT LEVEL 89-92%. ORAL, SKIN, AND REPOSITIONING CARE PROVIDED. PT NONVERBAL WITH FEW LOW MOANS AND OPENS EYES AT TIMES, BUT NO WORDS. [place] CATHETER DRAINING BENJY URINE AND OUTPUT 400ML. NOTED TO BE GETTING A LITTLE RESTLESS AROUND 0615 WITH SOME LOUDER MOANING NOTED, THEREFORE MEDICATED WITH MORPHINE 2MG IVP AT 0633, RR 24, WILL CONT TO MONITOR CLOSELY.
[2020-09-22 06:53] LABS: Anion Gap 11 (12-20); Blood Urea Nitrogen 12 mg/dL (9-16); Calcium 8.4 mg/dL (8.4-10.2); Carbon Dioxide 32 mmol/L (22-29); Chloride 100 mmol/L (96-108); Creatinine Clr Calc Pharmacy 109.6; Estimated Glomerular Filt Rate > 60; Glucose Random 172 mg/dL (60-115); Potassium 3.5 mmol/L (3.3-5.1); Sodium 139 mmol/L (135-145)
--- NOTE | 2020-09-22 07:22 | ECG_ITS ---
Test Reason : AFIB NEW Blood Pressure : / mmHG Vent. Rate : 078 BPM Atrial Rate : 078 BPM P-R Int : 178 ms QRS Dur : 100 ms QT Int : 386 ms P-R-T Axes : 014 -05 100 degrees QTc Int : 440 ms Sinus rhythm with Premature atrial complexes Left ventricular hypertrophy with repolarization abnormality Cannot rule out Septal infarct , age undetermined Abnormal ECG When compared with ECG of 20-SEP-2020 15:42, No significant change was found Referred By: Jin Cam Electronically Signed By:CAMERON HO MD
[2020-09-22 07:46] LABS: Glucose, Whole Blood 162 mg/dL (60-115)
[2020-09-22] MEDS: Aspirin Enteric Coated 81 MG TABLET.DR PO (07:49)
[2020-09-22] MEDS: Loratadine 10 MG TABLET PO (07:50)
[2020-09-22] MEDS: Insulin Glargine,Hum.rec.anlog 100 UNIT/ML 10 ML VIAL 60 UNIT SUBCUT (07:50)
[2020-09-22] MEDS: Insulin Lispro 100 UNIT/ML 3 ML VIAL SUBCUT ×4 (07:50→20:59)
[2020-09-22] MEDS: Gabapentin 300 MG CAPSULE PO ×3 (07:50→20:59)
[2020-09-22] MEDS: Atorvastatin Calcium 80 MG TABLET PO (07:50)
--- NOTE | 2020-09-22 09:39 | P.PNIM_ITS ---
Subjective Subjective Date of Service: 09/22/20 Interval History: Follow up for colitis and UTI. Still with watery stool, no abdominal pain. Episode of one hour of afib this morning. Review of Systems Significant diarrhea and lightheadedness. She also reported having low blood pressure recently. Physical Exam Vital Signs: Vital Signs: Last Vital Signs Temp 97.8 F 09/22/20 07:23 Pulse 86 09/22/20 07:23 Resp 18 09/22/20 07:23 BP 129/59 L 09/22/20 07:23 Pulse Ox 98 09/22/20 07:23 Body Mass Index 37.0 Objective Data Current Medications Generic Name Dose Route Start Last Admin Trade Name Freq PRN Reason Stop Dose Admin Acetaminophen 650 mg 09/21/20 01:13 Acetaminophen 325 Mg Tablet PO Q6H PRN Pain, Mild (Pain Scale 1-3) Albuterol Sulfate 2 puff 09/21/20 01:13 Albuterol Sulfate 90 Mcg 8 Gm Inhaler INHALE Q4H PRN Shortness Of Breath Albuterol/Ipratropium 3 ml 09/21/20 01:13 Albuterol/Iprat 2.5/0.5mg 3 Ml Ampul.Neb INHALE RQ4H PRN Shortness Of Breath Aspirin 81 mg 09/21/20 09:00 09/22/20 07:49 Aspirin Enteric Coated 81 Mg Tablet. PO 81 mg DAILY [facility] Administration Atorvastatin Calcium 80 mg 09/21/20 09:00 09/22/20 07:50 Atorvastatin Calcium 80 Mg Tablet PO 80 mg DAILY [facility] Administration Docusate Sodium 100 mg 09/21/20 01:13 Docusate Sodium 100 Mg Capsule PO DAILY PRN Constipation Fluticasone Propionate 2 puff 09/21/20 09:00 09/21/20 21:40 Fluticasone Propionate 100 Mcg Blst.W.Dev INHALE Not Given BID MARJAN Gabapentin 300 mg 09/21/20 09:00 09/22/20 07:50 Gabapentin 300 Mg Capsule PO 300 mg TID [facility] Administration Ceftriaxone Sodium 1 gm/ 50 mls @ 100 mls/hr 09/21/20 17:00 09/21/20 18:22 Sodium Chloride IV Infused Q24H [facility] Infusion Metronidazole 500 mg in 100 mls @ 100 mls/hr 09/21/20 02:00 09/22/20 04:19 Flagyl IV Infused Q8H [facility] Infusion Insulin Glargine 60 unit 09/21/20 09:00 09/22/20 07:50 Insulin Glargine,Hum.Rec.Anlog 100 Unit/Ml 10 Ml Vial SUBCUT 60 unit DAILY [facility] Administration Insulin Human Lispro 0 unit 09/21/20 07:30 09/22/20 07:50 Insulin Lispro 100 Unit/Ml 3 Ml Vial SUBCUT 2 unit QIDACHS [facility] Administration Protocol Loratadine 10 mg 09/21/20 09:00 09/22/20 07:50 Loratadine 10 Mg Tablet PO 10 mg DAILY [facility] Administration Nystatin 1 appl 09/21/20 09:00 09/21/20 22:16 Nystatin Cream 15 Gm Tube TOPICAL 1 appl BID [facility] Administration Protocol Ondansetron HCl 4 mg 09/21/20 01:13 Ondansetron Hcl 4 Mg/2 Ml Vial IVPUSH Q8H PRN Nausea and Vomiting Sodium Chloride 3 ml 09/21/20 01:13 09/22/20 07:24 0.9 % Sodium Chloride Flush 3 Ml Syringe IVFLUSH Not Given QSHIFT [facility] Labs CBC & Chem 7: 09/22/20 05:58 09/22/20 05:58 Microbiology Microbiology Results: Microbiology 09/21/20 13:32 Stool Stool Culture - Preliminary Culture in progress. 09/20/20 16:54 Blood - Venous Blood Culture - Preliminary 09/20/20 16:56 Blood - Venous Blood Culture - Preliminary No growth after 24 hours. 09/20/20 16:29 Urine clean catch - Clean Catch Midstream Urine Culture - Preliminary Culture in progress. Assessment and Plan (1) Colitis: Status: Acute (2) Brain TIA: Status: Acute (3) UTI (urinary tract infection): Status: Acute (4) Diarrhea: Status: Acute (5) Hypotension: Status: Acute (6) Congestive heart failure: Status: Inactive (7) Sepsis: Status: Acute Assessment and Plan: This is a 70-year-old female with past medical history of CVA, diabetes, hypertension among others who presents to the hospital with complaints of TIA a like symptoms as well as persistent diarrhea. Found to have colitis # New Afib. 1 hour of afib this morning. Asymptomatic. In SR now. No documented history. -Echocardiogram -Will discuss with GI as patient admitted with GI bleed and due to hx of CVA may need anticoagulation. # Colitis/Diarrhea-most likely inflammatory/infectious. Still with watery stool. Maybe ischemic colitis in light of new afib. -NPO overnight for colonoscopy tomorrow. -GI following -C diff negative, stool cx and wbc pending -continue ceftriaxone and Flagyl -consider dose of imodium # Hypotension. Better today. Likely from hypovolemia secondary to diarrhea. -improving, start maintenance IV fluids -hold antihypertensives until BP impro # Sepsis-Thought to have sepsis on admission however, only had leukocytosis with no other SIRS criteria. # UTI. Follow culture. -Continue Rocephin # TIA. CVA in 06/28 on aspirin and statin. Symptoms seem more likely from infection. -Symptoms more likely related to infection rather than TIA, no further stroke workup as per neurology. # Diabetes -continue her home insulin -Sliding scale -diabetic diet # Obesity. BMI 37.0 -Obesity could be contributing to worsening symptoms of other comorbidities Attending: Dr. Cam.
[2020-09-22] MEDS: Nystatin Cream 15 GM TUBE 1 APPL TOPICAL ×2 (09:49→20:20)
--- NOTE | 2020-09-22 10:25 | PC.NURSE ---
0715 pt resting comfortable in bed no complaints of chest pain or pressure , cardiac exercise specialist noted to see new Afib, pt appears to be in and out of Afib throughout morning , rate from 70-90s, ekg done BP WNL, hospitalist and MUSIC LIBRARIAN into see pt .
[2020-09-22] MEDS: Fluticasone Propionate 100 MCG BLST.W.DEV 2 PUFF INHALE ×2 (11:22→19:46)
[2020-09-22 12:09] LABS: Glucose, Whole Blood 312 mg/dL (60-115)
--- NOTE | 2020-09-22 12:36 | PM.GICN ---
History of Present Illness Data of Consult Service Date: 09/22/20 Requesting physician: Angelita Jacobson Primary Care Provider: Cherise Hamm MD HPI Reason for consult: colitis 70-year-old female with hx of diabetes, CVA, HTN, CHF who I am asked to see for assessment of colitis. She presented initially with neurological sx incl pain under her right jaw, face numbness and tingling which lasted about 10 minutes and resolved spontaneously. seperately from that she has had persistent intermittent bouts of diarrhea since a prior stroke in Jun 2020 and being on plavix, possibly been some blood as well more recently she noted mild left lower quad pain and discomfort, denies nausea, vomiting, no fevers or chills last colonoscopy was many years ago, can;t recall exactly., she is worried about having colon cancer as she has lost 250# by her estimate over last several months. Labs :: WBC count of 12.9, PT of 13.4, BUN of 21, creatinine of 0.77, lactic acid of 3.6 that improved to 1.7 after fluids, AST of 33, alk-phos of 122, urine that is positive for leukocyte nitrates, COVID 19-, C diff toxin antigen negative, abdominal pelvic CT showed abnormal appearing left colon with areas of pericolonic inflammatory change in the descending colon, consistent with colitis. No evidence of bowel perforation or pericolonic fluid collection. Review of Systems Review of Systems: Significant diarrhea and lightheadedness. Yes all other systems are reviewed and are negative Constitutional: Constitutional: Reports fatigue and Reports weakness Eyes: Eyes: Reports loss of vision Musculoskeletal: Musculoskeletal: Reports numbness Neurologic: Reports loss of vision, Reports numbness and Reports weakness Endocrine: Endocrine: Reports fatigue PMFSH Past Medical History Medical History (Updated 09/22/20 @ 22:21 by Hetal Banda MD) Chronic indwelling Molina catheter Chronic UTI Congestive heart failure COPD (chronic obstructive pulmonary disease) Diabetes Glaucoma H/O: CVA (cerebrovascular accident) Hypertension Obesity Osteoarthritis Severe sepsis Surgical History Surgical History H/O adenoidectomy H/O enucleation of left eyeball History of tonsillectomy Social History Social History Household Members: Children and Caregiver Housing: Apartment Alcohol intake: never Smoking Status: Never smoker Second Hand Smoke Exposure: No service: No Current occupational status: disabled Meds Allergies Allergy/AdvReac Type Severity Reaction Status Date / Time silver sulfadiazine Allergy Unknown UNK Verified 06/29/20 00:20 [From SILVADENE] Active Medications: Current Medications Generic Name Dose Route Start Last Admin Trade Name Freq PRN Reason Stop Dose Admin Acetaminophen 650 mg 09/21/20 01:13 Acetaminophen 325 Mg Tablet PO Q6H PRN Pain, Mild (Pain Scale 1-3) Albuterol Sulfate 2 puff 09/21/20 01:13 Albuterol Sulfate 90 Mcg 8 Gm Inhaler INHALE Q4H PRN Shortness Of Breath Albuterol/Ipratropium 3 ml 09/21/20 01:13 Albuterol/Iprat 2.5/0.5mg 3 Ml Ampul.Neb INHALE RQ4H PRN Shortness Of Breath Aspirin 81 mg 09/21/20 09:00 09/22/20 07:49 Aspirin Enteric Coated 81 Mg Tablet. PO 81 mg DAILY [facility] Administration Atorvastatin Calcium 80 mg 09/21/20 09:00 09/22/20 07:50 Atorvastatin Calcium 80 Mg Tablet PO 80 mg DAILY [facility] Administration Docusate Sodium 100 mg 09/21/20 01:13 Docusate Sodium 100 Mg Capsule PO DAILY PRN Constipation Fluticasone Propionate 2 puff 09/21/20 09:00 09/22/20 11:22 Fluticasone Propionate 100 Mcg Blst.W.Dev INHALE 2 puff BID MARJAN Administration Gabapentin 300 mg 09/21/20 09:00 09/22/20 07:50 Gabapentin 300 Mg Capsule PO 300 mg TID [facility] Administration Ceftriaxone Sodium 1 gm/ 50 mls @ 100 mls/hr 09/21/20 17:00 09/21/20 18:22 Sodium Chloride IV Infused Q24H [facility] Infusion Metronidazole 500 mg in 100 mls @ 100 mls/hr 09/21/20 02:00 09/22/20 11:41 Flagyl IV Infused Q8H [facility] Infusion Insulin Glargine 60 unit 09/21/20 09:00 09/22/20 07:50 Insulin Glargine,Hum.Rec.Anlog 100 Unit/Ml 10 Ml Vial SUBCUT 60 unit DAILY [facility] Administration Insulin Human Lispro 0 unit 09/21/20 07:30 09/22/20 11:50 Insulin Lispro 100 Unit/Ml 3 Ml Vial SUBCUT 8 unit QIDACHS [facility] Administration Protocol Loratadine 10 mg 09/21/20 09:00 09/22/20 07:50 Loratadine 10 Mg Tablet PO 10 mg DAILY [facility] Administration Nystatin 1 appl 09/21/20 09:00 09/22/20 09:49 Nystatin Cream 15 Gm Tube TOPICAL 1 appl BID [facility] Administration Protocol Ondansetron HCl 4 mg 09/21/20 01:13 Ondansetron Hcl 4 Mg/2 Ml Vial IVPUSH Q8H PRN Nausea and Vomiting Sodium Chloride 3 ml 09/21/20 01:13 09/22/20 07:24 0.9 % Sodium Chloride Flush 3 Ml Syringe IVFLUSH Not Given QSHIFT [facility] Home Medications Medication Instructions Recorded Confirmed Last Taken Type Flovent Diskus 2 puff PO BID 06/15/20 09/20/20 07/09/20 History Lantus Solostar U-100 Insulin 60 unit SUBCUT DAILY 06/15/20 09/20/20 07/09/20 History albuterol sulfate [ProAir HFA] 1 - 2 puff PO Q4-6H PRN 06/15/20 09/20/20 06/28/20 History aspirin 1 tab PO DAILY 06/15/20 09/20/20 07/09/20 History docusate sodium 1 - 2 cap PO BID PRN 06/15/20 09/20/20 06/28/20 History furosemide 40 mg PO BID 06/15/20 09/20/20 07/09/20 History insulin lispro [Humalog KwikPen 0 unit SUBCUT TIDAC 06/15/20 09/20/20 06/28/20 History Insulin] ipratropium-albuterol 1 vial INHALATION Q4-6H PRN 06/15/20 09/20/20 06/28/20 History lisinopril 1 tab PO DAILY 06/15/20 09/20/20 07/09/20 History loratadine 1 tab PO DAILY 06/15/20 09/20/20 07/09/20 History simvastatin [Zocor] 40 mg PO BEDTIME 12/07/20 03/14/21 12/30/20 History gabapentin 300 mg PO TID 07/09/20 09/20/20 Unknown History metoprolol tartrate 100 mg PO BID 07/09/20 09/20/20 07/09/20 History nystatin 1 appl TOPICAL BID 09/20/20 09/20/20 Unknown History Physical Exam Vital Signs: Vital Signs: Last Vital Signs Temp 98.0 F 09/22/20 11:34 Pulse 81 09/22/20 11:34 Resp 18 09/22/20 11:34 BP 120/62 09/22/20 11:34 Pulse Ox 92 09/22/20 11:34 Body Mass Index 37.0 Const: General: cooperative, comfortable, no acute distress and well developed Nutritional Appearance: obese Orientation/consciousness: oriented to person, oriented to place, oriented to time and patient oriented x3 HENMT: Head: Yes normocephalic and Yes atraumatic Ears: hearing grossly normal bilaterally General nose exam: Normal external nose present Mouth: Normal oral and palatal mucosa present Eyes: Other: Left prosthetic eye Neck: Neck: Yes normal visual inspection, Yes full ROM and Yes no lymphadenopathy Chest: Chest palpation & inspection: normal palpation of entire chest wall Resp: Effort & Inspection: normal respiratory effort and able to speak in complete sentences Auscultation: clear to auscultation bilaterally, no crackles, no rales and no rhonchi Cardio: Jugular venous distension: no JVD Palpation: normal PMI Rate: regular rate Rhythm: regular rhythm Heart sounds: S1 normal heart sound present and S2 normal heart sound present Peripheral pulses: Peripheral pulses 2+ throughout GI: Other: Perfuse diarrhea with foul-smelling brown color stool Inspection: Yes normal to inspection Palpation (GI): Soft to palpation, not firm, nontender and no guarding Auscultation: normal bowel sounds : General: Yes no CVA tenderness Back/Spine/Pelvis: Back: no CVA tenderness Thoracic/Lumbar Spine: thoracic and lumbar spine normal to inspection Skin: General skin exam: no rashes or lesions noted Neuro: Other: No neurological deficits General: oriented to person, oriented to place, oriented to time, patient oriented x3, tone normal, moves all extremities, Normal light touch and pain sensation, no focal motor deficits, CN's II-XI intact bilaterally and normal sensation to monofilament Cognition (Neuro): normal cognition Extrem: Other: Chronic vascular insufficiency changes bilateral lower extremities with limited range of movement General: Yes normal to inspection and Yes no pedal edema Results Labs CBC & Chem 7: 09/22/20 05:58 09/22/20 05:58 Labs: Short CBC 09/21/20 09/22/20 Range/Units 13:04 05:58 WBC 9.8 (4.8-10.8) X10*3/uL Hgb 12.7 11.9 L (12.0-16.0) g/dl Hct 39.4 36.0 L (37-47) % Plt Count 148 L (160-400) X10*3/uL BMP 09/22/20 05:58 Sodium 139 Potassium 3.5 Chloride 100 Carbon Dioxide 32 H BUN 12 Creatinine 0.59 Calcium 8.4 Microbiology Microbiology Results: Microbiology 09/20/20 16:54 Blood - Venous Blood Culture - Preliminary 09/20/20 16:29 Urine clean catch - Clean Catch Midstream Urine Culture - Final 09/21/20 13:32 Stool Stool Culture - Preliminary Culture in progress. 09/20/20 16:56 Blood - Venous Blood Culture - Preliminary No growth after 24 hours. Assessment and Plan (1) Altered bowel habits: Status: Acute (2) Diarrhea: Status: Acute (3) Colitis: Status: Acute 1/ Diarrheal illness, with weight loss and colitis on CT, need to r/o neoplasia and IBD sarah crohns ddx; ischemic colitis or segmental colitis, microscopic colitis sarah w hx of s\statin use, diabetic colopathy or autonomic dysfunction PLAN: 1/ bowle prep tonight, keep on clears and plan for colonoscopy tomorrow for further evaluation
--- NOTE | 2020-09-22 14:07 | MHC.CM.PN ---
pt's daughter, santosh, will no longer be her mothers municipal clerk at [place] per conversation c santosh and the patient. the patient has 63 municipal clerk hours through [employer] and 84 hours through the [facility] ([facility]) for a total of 147 municipal clerk hours. the patient is trying to piece together a new municipal clerk structure since her daughter is no longer going to be involved c her care. the 84 hrs through the [facility] are filled by an agency called [facility], the coordinator at [facility] is Robbi at ph: [phone]. - these hours are covered/filled per Robbi who is requesting a call prior to dc so she can get her people in place. the 63 ilda municipal clerk hours are vacant at this time as the patient and daughter are trying to find replacements for her. so at this time the home care situation is incomplete, it is a work in progress. the patient is willing to go to snf until her municipal clerk roster is full, she has requested ref's be made in the [facility] snf's for this. additionally, [facility] have been following this patient and would like a call prior to dc , britton at ph:[phone]. lastly, amadou at [facility] is requesting a call at [place] ph: [phone]. cm to cont to follow..
[2020-09-22 16:12] LABS: Glucose, Whole Blood 250 mg/dL (60-115)
[2020-09-22] MEDS: cefTRIAXone sodium 1 GM in 0.9 % Sodium Chloride 50 ML IV (16:22)
[2020-09-22] MEDS: bisacodyL 5 MG TABLET.DR 20 MG PO (17:01)
[2020-09-22] MEDS: PEG 3350/Na Sulf,Bicarb,Cl/KCL 4,000 ML SOLN.RECON 4000 ML PO (20:15)
[2020-09-22 20:31] LABS: Glucose, Whole Blood 185 mg/dL (60-115)
[2020-09-22] MEDS: 0.9 % Sodium Chloride Flush 3 ML SYRINGE IVFLUSH (21:00)
[2020-09-23] VITALS (9 sets, daily range): BP systolic 139–165; BP diastolic 58–90; PULSE 71–93; RESP 12–20; TEMP 35.9–36.9; O2SAT 95–97; BMI 36.8
[2020-09-23] MEDS: metroNIDAZOLE/NS 500 MG/100 ML PIGGYBACK 100 MG IV ×3 (01:40→17:39)
[2020-09-23 06:51] LABS: MANUAL DIFF FLAG NO
[2020-09-23 06:59] LABS: Basophils Percent Auto 0.3 % (0-2); Eosinophils Absolute Auto 0.6 X10*3/uL (0.0-0.4); Eosinophils Percent Auto 8.6 % (0-4); Hematocrit 36.8 % (37-47); Hemoglobin 11.9 g/dl (12.0-16.0); Imm Gran Abs Auto 0.02 X10*3/uL (0.00-0.03); Imm Gran Pct Auto 0.3 % (0.0-0.4); Lymphocytes Absolute Auto 1.6 X10*3/uL (1.2-4.9); Lymphocytes Percent Auto 21.9 % (20-40); Mean Corpuscular HGB Conc 32.3 g/dl (31.0-35.0); Mean Corpuscular Hemoglobin 29.4 pg (27.0-33.0); Mean Corpuscular Volume 90.9 fL (80-98); Mean Platelet Volume 11.8 fL (9.4-12.3); Monocytes Absolute Auto 0.5 X10*3/uL (0.1-1.2); Monocytes Percent Auto 7.1 % (2-11); Neutrophils Absolute Auto 4.4 X10*3/uL (2.0-8.3); Neutrophils Percent Auto 61.8 % (45-73); Platelet Count 150 X10*3/uL (160-400); Red Blood Count 4.05 X10*6/uL (4.20-5.50); Red Cell Distribution Width 14.6 % (11.0-16.0); White Blood Count 7.1 X10*3/uL (4.8-10.8)
[2020-09-23 07:45] LABS: Glucose, Whole Blood 132 mg/dL (60-115)
[2020-09-23] MEDS: 0.9 % Sodium Chloride Flush 3 ML SYRINGE IVFLUSH ×2 (07:45→17:38)
[2020-09-23 07:55] LABS: Anion Gap 10 (12-20); Blood Urea Nitrogen 5 mg/dL (9-16); Calcium 8.4 mg/dL (8.4-10.2); Carbon Dioxide 33 mmol/L (22-29); Chloride 103 mmol/L (96-108); Creatinine Clr Calc Pharmacy 129.4; Estimated Glomerular Filt Rate > 60; Glucose Random 128 mg/dL (60-115); Potassium 3.6 mmol/L (3.3-5.1); Sodium 142 mmol/L (135-145)
--- NOTE | 2020-09-23 09:48 | PM.IMHP ---
History of Present Illness Date of Service: 09/23/20 FOR[facility] Medical History (Updated 09/22/20 @ 22:21 by Hetal Banda MD) Chronic indwelling Molina catheter Chronic UTI Congestive heart failure COPD (chronic obstructive pulmonary disease) Diabetes Glaucoma H/O: CVA (cerebrovascular accident) Hypertension Obesity Osteoarthritis Severe sepsis Surgical History H/O adenoidectomy H/O enucleation of left eyeball History of tonsillectomy Social History Household Members: Children and Caregiver Housing: Apartment Alcohol intake: never Smoking Status: Never smoker Second Hand Smoke Exposure: No service: No Current occupational status: disabled Meds Allergies Allergy/AdvReac Type Severity Reaction Status Date / Time silver sulfadiazine Allergy Unknown UNK Verified 06/29/20 00:20 [From SILVADENE] Active Medications: Current Medications Generic Name Dose Route Start Last Admin Trade Name Freq PRN Reason Stop Dose Admin Acetaminophen 650 mg 09/21/20 01:13 Acetaminophen 325 Mg Tablet PO Q6H PRN Pain, Mild (Pain Scale 1-3) Albuterol Sulfate 2 puff 09/21/20 01:13 Albuterol Sulfate 90 Mcg 8 Gm Inhaler INHALE Q4H PRN Shortness Of Breath Albuterol/Ipratropium 3 ml 09/21/20 01:13 Albuterol/Iprat 2.5/0.5mg 3 Ml Ampul.Neb INHALE RQ4H PRN Shortness Of Breath Aspirin 81 mg 09/21/20 09:00 09/23/20 09:10 Aspirin Enteric Coated 81 Mg Tablet.Dr PO Not Given DAILY MARJAN Atorvastatin Calcium 80 mg 09/21/20 09:00 09/23/20 09:10 Atorvastatin Calcium 80 Mg Tablet PO Not Given DAILY [facility] Docusate Sodium 100 mg 09/21/20 01:13 Docusate Sodium 100 Mg Capsule PO DAILY PRN Constipation Fluticasone Propionate 2 puff 09/21/20 09:00 09/23/20 09:10 Fluticasone Propionate 100 Mcg Blst.W.Dev INHALE Not Given BID [facility] Gabapentin 300 mg 09/21/20 09:00 09/23/20 09:10 Gabapentin 300 Mg Capsule PO Not Given TID MARJAN Ceftriaxone Sodium 1 gm/ 50 mls @ 100 mls/hr 09/21/20 17:00 09/22/20 16:59 Sodium Chloride IV Infused Q24H [facility] Infusion Metronidazole 500 mg in 100 mls @ 100 mls/hr 09/21/20 02:00 09/23/20 03:11 Flagyl IV Infused Q8H [facility] Infusion Insulin Glargine 60 unit 09/21/20 09:00 09/23/20 09:10 Insulin Glargine,Hum.Rec.Anlog 100 Unit/Ml 10 Ml Vial SUBCUT Not Given DAILY [facility] Insulin Human Lispro 0 unit 09/21/20 07:30 09/23/20 07:44 Insulin Lispro 100 Unit/Ml 3 Ml Vial SUBCUT Not Given QIDACHS [facility] Protocol Loratadine 10 mg 09/21/20 09:00 09/23/20 09:10 Loratadine 10 Mg Tablet PO Not Given DAILY [facility] Nystatin 1 appl 09/21/20 09:00 09/22/20 20:20 Nystatin Cream 15 Gm Tube TOPICAL 1 appl BID [facility] Administration Protocol Ondansetron HCl 4 mg 09/21/20 01:13 Ondansetron Hcl 4 Mg/2 Ml Vial IVPUSH Q8H PRN Nausea and Vomiting Sodium Biphosphate/Sodium Phosphate 133 ml 09/22/20 16:17 Sodium Phosphate,[place]-Dibasic 133 Ml Enema [place] ONCE PRN pre procedure Sodium Chloride 3 ml 09/21/20 01:13 09/23/20 07:45 0.9 % Sodium Chloride Flush 3 Ml Syringe IVFLUSH 3 ml QSHIFT [facility] Administration Home Medications Medication Instructions Recorded Confirmed Last Taken Type Flovent Diskus 2 puff PO BID 06/15/20 09/20/20 07/09/20 History Lantus Solostar U-100 Insulin 60 unit SUBCUT DAILY 06/15/20 09/20/20 07/09/20 History albuterol sulfate [ProAir HFA] 1 - 2 puff PO Q4-6H PRN 06/15/20 09/20/20 06/28/20 History aspirin 1 tab PO DAILY 06/15/20 09/20/20 07/09/20 History docusate sodium 1 - 2 cap PO BID PRN 06/15/20 09/20/20 06/28/20 History furosemide 40 mg PO BID 06/15/20 09/20/20 07/09/20 History insulin lispro [Humalog KwikPen 0 unit SUBCUT TIDAC 06/15/20 09/20/20 06/28/20 History Insulin] ipratropium-albuterol 1 vial INHALATION Q4-6H PRN 06/15/20 09/20/20 06/28/20 History lisinopril 1 tab PO DAILY 06/15/20 09/20/20 07/09/20 History loratadine 1 tab PO DAILY 06/15/20 09/20/20 07/09/20 History simvastatin [Zocor] 40 mg PO BEDTIME 06/15/20 09/20/20 07/08/20 History gabapentin 300 mg PO TID 07/09/20 09/20/20 Unknown History metoprolol tartrate 100 mg PO BID 07/09/20 09/20/20 07/09/20 History nystatin 1 appl TOPICAL BID 09/20/20 09/20/20 Unknown History Physical Exam Vital Signs and Narrative: Vital Signs: Last Vital Signs Temp 97.4 F 09/23/20 07:24 Pulse 88 09/23/20 07:24 Resp 19 09/23/20 07:24 BP 165/58 H 09/23/20 07:24 Pulse Ox 97 09/23/20 07:24 Body Mass Index 37.0 Results Labs CBC and Chem 7: 09/23/20 06:26 09/23/20 06:26 Labs: Laboratory Results - last 24 hr 09/22/20 09/22/20 09/22/20 11:32 16:07 20:27 MCV MCH MCHC RDW Plt Count MPV Immature Gran % (Auto) Neut % (Auto) Lymph % (Auto) [place] % (Auto) Eos % (Auto) Baso % (Auto) Lymph # (Auto) Stephens # (Auto) Eos # (Auto) Baso # (Auto) Abs Immat Gran (auto) Absolute Neuts (auto) Absolute Nucleated RBC Nucleated RBC % (auto) Anion Gap Estim Creat Clear Calc Estimated GFR POC Glucose 312 H 250 H 185 H Random Glucose Calcium 09/23/20 09/23/20 09/23/20 06:26 06:26 07:27 MCV 90.9 MCH 29.4 MCHC 32.3 RDW 14.6 Plt Count 150 L MPV 11.8 Immature Gran % (Auto) 0.3 Neut % (Auto) 61.8 Lymph % (Auto) 21.9 Stephens % (Auto) 7.1 Eos % (Auto) 8.6 H Baso % (Auto) 0.3 Lymph # (Auto) 1.6 Stephens # (Auto) 0.5 Eos # (Auto) 0.6 H Baso # (Auto) 0.0 Abs Immat Gran (auto) 0.02 Absolute Neuts (auto) 4.4 Absolute Nucleated RBC 0.000 Nucleated RBC % (auto) 0.0 Anion Gap 10 L Estim Creat Clear Calc 129.4 Estimated GFR > 60 POC Glucose 132 H Random Glucose 128 H Calcium 8.4
--- NOTE | 2020-09-23 09:51 | HO.PM.IMPN ---
Subjective Subjective Date of Service: 09/23/20 <Angelita Jacobson NP - Last Filed: 09/23/20 09:58> 09/23/20 <Jin Cam MD - Last Filed: 09/23/20 11:48> Interval History: Follow up for colitis and UTI. Still with watery stool, no abdominal pain. <Angelita Jacobson NP - Last Filed: 09/23/20 09:58> Physical Exam Vital Signs: Vital Signs: Last Vital Signs Temp 97.4 F 09/23/20 07:24 Pulse 88 09/23/20 07:24 Resp 19 09/23/20 07:24 BP 165/58 H 09/23/20 07:24 Pulse Ox 97 09/23/20 07:24 Body Mass Index 37.0 <Angelita Jacobson NP - Last Filed: 09/23/20 09:58> Appearing in no acute distress lung sounds normal expansion heart regular rate rhythm, clear S1, S2 positive bowel sounds, abdomen is soft, nontender neuro patient is alert x3, no focal deficits <Angelita Jacobson NP - Last Filed: 09/23/20 09:58> Objective Data Current Medications Generic Name Dose Route Start Last Admin Trade Name Freq PRN Reason Stop Dose Admin Acetaminophen 650 mg 09/21/20 01:13 Acetaminophen 325 Mg Tablet PO Q6H PRN Pain, Mild (Pain Scale 1-3) Albuterol Sulfate 2 puff 09/21/20 01:13 Albuterol Sulfate 90 Mcg 8 Gm Inhaler INHALE Q4H PRN Shortness Of Breath Albuterol/Ipratropium 3 ml 09/21/20 01:13 Albuterol/Iprat 2.5/0.5mg 3 Ml Ampul.Neb INHALE RQ4H PRN Shortness Of Breath Aspirin 81 mg 09/21/20 09:00 09/23/20 09:10 Aspirin Enteric Coated 81 Mg Tablet.Dr PO Not Given DAILY [facility]JAN Atorvastatin Calcium 80 mg 09/21/20 09:00 09/23/20 09:10 Atorvastatin Calcium 80 Mg Tablet PO Not Given DAILY [facility] Docusate Sodium 100 mg 09/21/20 01:13 Docusate Sodium 100 Mg Capsule PO DAILY PRN Constipation Fluticasone Propionate 2 puff 09/21/20 09:00 09/23/20 09:10 Fluticasone Propionate 100 Mcg Blst.W.Dev INHALE Not Given BID [facility] Gabapentin 300 mg 09/21/20 09:00 09/23/20 09:10 Gabapentin 300 Mg Capsule PO Not Given TID [facility] Ceftriaxone Sodium 1 gm/ 50 mls @ 100 mls/hr 09/21/20 17:00 09/22/20 16:59 Sodium Chloride IV Infused Q24H [facility] Infusion Metronidazole 500 mg in 100 mls @ 100 mls/hr 09/21/20 02:00 09/23/20 03:11 Flagyl IV Infused Q8H [facility] Infusion Insulin Glargine 60 unit 09/21/20 09:00 09/23/20 09:10 Insulin Glargine,Hum.Rec.Anlog 100 Unit/Ml 10 Ml Vial SUBCUT Not Given DAILY [facility] Insulin Human Lispro 0 unit 09/21/20 07:30 09/23/20 07:44 Insulin Lispro 100 Unit/Ml 3 Ml Vial SUBCUT Not Given QIDACHS [facility] Protocol Loratadine 10 mg 09/21/20 09:00 09/23/20 09:10 Loratadine 10 Mg Tablet PO Not Given DAILY [facility] Nystatin 1 appl 09/21/20 09:00 09/22/20 20:20 Nystatin Cream 15 Gm Tube TOPICAL 1 appl BID [facility] Administration Protocol Ondansetron HCl 4 mg 09/21/20 01:13 Ondansetron Hcl 4 Mg/2 Ml Vial IVPUSH Q8H PRN Nausea and Vomiting Sodium Biphosphate/Sodium Phosphate 133 ml 09/22/20 16:17 Sodium Phosphate,[place]-Dibasic 133 Ml Enema [place] ONCE PRN pre procedure Sodium Chloride 3 ml 09/21/20 01:13 09/23/20 07:45 0.9 % Sodium Chloride Flush 3 Ml Syringe IVFLUSH 3 ml QSHIFT [facility] Administration <Angelita Jacobson NP - Last Filed: 09/23/20 09:58> Labs CBC & Chem 7: : 09/23/20 06:26 09/23/20 06:26 <Angelita Jacobson NP - Last Filed: 09/23/20 09:58> Microbiology Microbiology Results: Microbiology 09/21/20 13:32 Stool Stool Culture - Preliminary Culture in progress. 09/20/20 16:56 Blood - Venous Blood Culture - Preliminary No growth after 48 hours. 09/20/20 16:54 Blood - Venous Blood Culture - Final Coag negative Staphylococcus 09/20/20 16:29 Urine clean catch - Clean Catch Midstream Urine Culture - Final <Angelita Jacobson NP - Last Filed: 09/23/20 09:58> Assessment and Plan (1) Colitis: Status: Acute <Angelita Jacobson NP - Last Filed: 09/23/20 09:58> Assessment and Plan: This is a 70-year-old female with past medical history of CVA, diabetes, hypertension among others who presents to the hospital with complaints of TIA a like symptoms as well as persistent diarrhea. Found to have colitis # Colitis/Diarrhea-most likely inflammatory/infectious. Still with watery stool. Maybe ischemic colitis in light of new afib. -Colonoscopy today -GI following -C diff negative, stool cx and wbc pending -continue ceftriaxone and Flagyl -consider dose of imodium # New Afib. 1 hour of afib this morning. Asymptomatic. In SR now. No documented history. -No further epsiodes -Echocardiogram -Will discuss with GI as patient admitted with GI bleed and due to hx of CVA may need anticoagulation. # Hypotension. Better today. Likely from hypovolemia secondary to diarrhea. -improving, start maintenance IV fluids -hold antihypertensives until BP impro # Sepsis-Thought to have sepsis on admission however, only had leukocytosis with no other SIRS criteria. # UTI. Follow culture. -Continue Rocephin # TIA. CVA in 06/28 on aspirin and statin. Symptoms seem more likely from infection. -Symptoms more likely related to infection rather than TIA, no further stroke workup as per neurology. # Diabetes -continue her home insulin -Sliding scale -diabetic diet # Obesity. BMI 37.0 -Obesity could be contributing to worsening symptoms of other comorbidities Attending: Dr. Cam. <Angelita Jacobson NP - Last Filed: 09/23/20 09:58>
[2020-09-23] MEDS: Nystatin Cream 15 GM TUBE 1 APPL TOPICAL ×2 (10:25→22:59)
[2020-09-23 11:29] LABS: Glucose, Whole Blood 136 mg/dL (60-115)
--- NOTE | 2020-09-23 12:23 | MHC.CLN ---
F/U PT IS CURRENTLY NPO PREVIOUS PO 100% WHEN DIET TO ADVANCE; RECOMMEND RE-STARTING KATHERINE AND GLUCERNA BID TO PROMOTE WOUND HEALING FOLLOWING
[2020-09-23 13:47] LABS: Glucose, Whole Blood 167 mg/dL (60-115)
--- NOTE | 2020-09-23 13:48 | P.HPSUR_ITS ---
Pre-Procedural Eval Section A The patient is an INPATIENT: Yes The History & Physical has been completed within 30 days and I have reviewed it.: Yes Section B Chief Complaint: Sepsis, UTI, Diarrhea, TIA Allergies: Allergies Allergy/AdvReac Type Severity Reaction Status Date / Time silver sulfadiazine Allergy Unknown UNK Verified 06/29/20 00:20 [From [email or web address]] Plan Diagnosis/Plan: Unchanged I have reviewed the history and physical and performed a pertinent physical examination on my patient. No changes have occurred unless specified. colonoscopy.
--- NOTE | 2020-09-23 13:48 | P.CONAN_ITS ---
[facility] Active Problems Active Problems: All Active Problems (Updated 09/22/20 @ 22:21 by Hetal Banda MD) Altered bowel habits (Acute) Cerebral infarction (Acute) Sepsis (Acute) Hypotension (Acute) Diarrhea (Acute) UTI (urinary tract infection) (Acute) Acute CVA (cerebrovascular accident) (Acute) Vision loss of right eye (Acute) Cerebral infarction (Acute) Brain TIA (Acute) Colitis (Acute) Diabetes (Acute) Past Medical History Medical History (Updated 09/22/20 @ 22:21 by Hetal Banda MD) Chronic indwelling Molina catheter Chronic UTI Congestive heart failure COPD (chronic obstructive pulmonary disease) Diabetes Glaucoma H/O: CVA (cerebrovascular accident) Hypertension Obesity Osteoarthritis Severe sepsis Surgical History Surgical History H/O adenoidectomy H/O enucleation of left eyeball History of tonsillectomy Social History Social History Household Members: Children and Caregiver Housing: Apartment Alcohol intake: never Smoking Status: Never smoker Second Hand Smoke Exposure: No service: No Current occupational status: disabled Meds Allergies Allergy/AdvReac Type Severity Reaction Status Date / Time silver sulfadiazine Allergy Unknown UNK Verified 06/29/20 00:20 [From TRINY] Active Medications: Current Medications Generic Name Dose Route Start Last Admin Trade Name Freq PRN Reason Stop Dose Admin Acetaminophen 650 mg 09/21/20 01:13 Acetaminophen 325 Mg Tablet PO Q6H PRN Pain, Mild (Pain Scale 1-3) Albuterol Sulfate 2 puff 09/21/20 01:13 Albuterol Sulfate 90 Mcg 8 Gm Inhaler INHALE Q4H PRN Shortness Of Breath Albuterol/Ipratropium 3 ml 09/21/20 01:13 Albuterol/Iprat 2.5/0.5mg 3 Ml Ampul.Neb INHALE RQ4H PRN Shortness Of Breath Aspirin 81 mg 09/21/20 09:00 09/23/20 09:10 Aspirin Enteric Coated 81 Mg Tablet.Dr PO Not Given DAILY MARJAN Atorvastatin Calcium 80 mg 09/21/20 09:00 09/23/20 09:10 Atorvastatin Calcium 80 Mg Tablet PO Not Given DAILY ON LICENSE OF [facility] Docusate Sodium 100 mg 09/21/20 01:13 Docusate Sodium 100 Mg Capsule PO DAILY PRN Constipation Fluticasone Propionate 2 puff 09/21/20 09:00 09/23/20 09:10 Fluticasone Propionate 100 Mcg Blst.W.Dev INHALE Not Given BID ON LICENSE OF [facility] Gabapentin 300 mg 09/21/20 09:00 09/23/20 09:10 Gabapentin 300 Mg Capsule PO Not Given TID ON LICENSE OF [facility] Ceftriaxone Sodium 1 gm/ 50 mls @ 100 mls/hr 09/21/20 17:00 09/22/20 16:59 Sodium Chloride IV Infused Q24H ON LICENSE OF [facility] Infusion Metronidazole 500 mg in 100 mls @ 100 mls/hr 09/21/20 02:00 09/23/20 11:44 Flagyl IV Infused Q8H ON LICENSE OF [facility] Infusion Insulin Glargine 60 unit 09/21/20 09:00 09/23/20 09:10 Insulin Glargine,Hum.Rec.Anlog 100 Unit/Ml 10 Ml Vial SUBCUT Not Given DAILY ON LICENSE OF [facility] Insulin Human Lispro 0 unit 09/21/20 07:30 09/23/20 11:37 Insulin Lispro 100 Unit/Ml 3 Ml Vial SUBCUT Not Given QIDACHS ON LICENSE OF [facility] Protocol Loratadine 10 mg 09/21/20 09:00 09/23/20 09:10 Loratadine 10 Mg Tablet PO Not Given DAILY ON LICENSE OF [facility] Nystatin 1 appl 09/21/20 09:00 09/23/20 10:25 Nystatin Cream 15 Gm Tube TOPICAL 1 appl BID ON LICENSE OF [facility] Administration Protocol Ondansetron HCl 4 mg 09/21/20 01:13 Ondansetron Hcl 4 Mg/2 Ml Vial IVPUSH Q8H PRN Nausea and Vomiting Sodium Biphosphate/Sodium Phosphate 133 ml 09/22/20 16:17 Sodium Phosphate,Towner-Dibasic 133 Ml Enema SC ONCE PRN pre procedure Sodium Chloride 3 ml 09/21/20 01:13 09/23/20 07:45 0.9 % Sodium Chloride Flush 3 Ml Syringe IVFLUSH 3 ml QSHIFT ON LICENSE OF [facility] Administration Home Medications Medication Instructions Recorded Confirmed Last Taken Type Flovent Diskus 2 puff PO BID 06/15/20 09/20/20 07/09/20 History Lantus Solostar U-100 Insulin 60 unit SUBCUT DAILY 06/15/20 09/20/20 07/09/20 History albuterol sulfate [ProAir HFA] 1 - 2 puff PO Q4-6H PRN 06/15/20 09/20/20 06/28/20 History aspirin 1 tab PO DAILY 06/15/20 09/20/20 07/09/20 History docusate sodium 1 - 2 cap PO BID PRN 06/15/20 09/20/20 06/28/20 History furosemide 40 mg PO BID 06/15/20 09/20/20 07/09/20 History insulin lispro [Humalog KwikPen 0 unit SUBCUT TIDAC 06/15/20 09/20/20 06/28/20 History Insulin] ipratropium-albuterol 1 vial INHALATION Q4-6H PRN 06/15/20 09/20/20 06/28/20 History lisinopril 1 tab PO DAILY 06/15/20 09/20/20 07/09/20 History loratadine 1 tab PO DAILY 06/15/20 09/20/20 07/09/20 History simvastatin [Zocor] 40 mg PO BEDTIME 06/15/20 09/20/20 07/08/20 History gabapentin 300 mg PO TID 07/09/20 09/20/20 Unknown History metoprolol tartrate 100 mg PO BID 07/09/20 09/20/20 07/09/20 History nystatin 1 appl TOPICAL BID 09/20/20 09/20/20 Unknown History Exam Exam Date and Time: September 23, 2020 1348 Height,Weight and Vital Signs: Height 5 ft 6 in Weight 104 kg Last Vital Signs Temp 97.6 F 09/23/20 11:15 Pulse 72 09/23/20 11:15 Resp 17 09/23/20 11:15 BP 139/90 H 09/23/20 11:15 Pulse Ox 95 09/23/20 11:15 Pertinent Lab Results Pertinent Lab Results: Laboratory Tests 09/20/20 09/20/20 09/20/20 16:21 16:21 16:21 WBC 16.7 H RBC 5.54 H Hgb 16.1 H Hct 50.5 H MCV 91.2 MCH 29.1 MCHC 31.9 RDW 14.8 Plt Count 255 D MPV 12.0 Immature Gran % (Auto) 0.7 H Neut % (Auto) 82.5 H Lymph % (Auto) 9.8 L [place] % (Auto) 5.5 Eos % (Auto) 1.3 Baso % (Auto) 0.2 Lymph # (Auto) 1.6 Towner # (Auto) 0.9 Eos # (Auto) 0.2 Baso # (Auto) 0.0 Abs Immat Gran (auto) 0.11 H Absolute Neuts (auto) 13.8 H Absolute Nucleated RBC 0.000 Nucleated RBC % (auto) 0.0 Hold Purple Top SEE NOTE PT 13.4 H INR 1.1 APTT 37.5 Hold Blue Top SEE NOTE Sodium Potassium Chloride Carbon Dioxide Anion Gap BUN Creatinine Estim Creat Clear Calc Estimated GFR POC Glucose Random Glucose Fasting Glucose Lactic Acid Lactic Acid Fup @ 2Hr Calcium Total Bilirubin Direct Bilirubin AST ALT Alkaline Phosphatase Lactate Dehydrogenase Troponin I High Sens Total Protein Albumin Lipase Urine Color Urine Appearance Urine pH Ur Specific [place] Urine Protein Urine Glucose (UA) Urine Ketones Urine Blood Urine Nitrite Ur Leukocyte Esterase Urine RBC Urine WBC Ur Squamous Epith Cells Ur Renal Epithelial Cell Triple Phos Crystals Urine Bacteria Stool Occult Blood C. difficile Toxin A&B C. difficile Antigen C. difficile Interpret COVID-19 (ERIKA) COVID-19 Clin Com 09/20/20 09/20/20 09/20/20 16:21 16:21 16:29 WBC RBC Hgb Hct MCV MCH MCHC RDW Plt Count MPV Immature Gran % (Auto) Neut % (Auto) Lymph % (Auto) [place] % (Auto) Eos % (Auto) Baso % (Auto) Lymph # (Auto) [place] # (Auto) Eos # (Auto) Baso # (Auto) Abs Immat Gran (auto) Absolute Neuts (auto) Absolute Nucleated RBC Nucleated RBC % (auto) Hold Purple Top PT INR APTT Hold Blue Top Sodium 136 Potassium 4.8 Chloride 94 L Carbon Dioxide 25 Anion Gap 22 H BUN 23 H Creatinine 1.02 Estim Creat Clear Calc 63.4 Estimated GFR 54 POC Glucose Random Glucose Fasting Glucose 266 H D Lactic Acid Lactic Acid Fup @ 2Hr Calcium 9.2 Total Bilirubin 0.9 Direct Bilirubin 0.2 AST 33 H ALT 23 Alkaline Phosphatase 122 H D Lactate Dehydrogenase Troponin I High Sens 13.1 Total Protein 7.1 Albumin 3.9 Lipase 13 Urine Color YELLOW Urine Appearance HAZY Urine pH 8.5 H Ur Specific [place] 1.015 Urine Protein 2+ H Urine Glucose (UA) NEG Urine Ketones NEG Urine Blood 1+ H Urine Nitrite NEG Ur Leukocyte Esterase 2+ H Urine RBC 0-2 Urine WBC 1-4 Ur Squamous Epith Cells 3+ Ur Renal Epithelial Cell TRACE Triple Phos Crystals 2+ Urine Bacteria 4+ Stool Occult Blood C. difficile Toxin A&B C. difficile Antigen C. difficile Interpret COVID-19 (ERIKA) COVID-19 [employer] 09/20/20 09/20/20 09/20/20 16:54 17:14 17:14 WBC RBC Hgb Hct MCV MCH MCHC RDW Plt Count MPV Immature Gran % (Auto) Neut % (Auto) Lymph % (Auto) [place] % (Auto) Eos % (Auto) Baso % (Auto) Lymph # (Auto) [place] # (Auto) Eos # (Auto) Baso # (Auto) Abs Immat Gran (auto) Absolute Neuts (auto) Absolute Nucleated RBC Nucleated RBC % (auto) Hold Purple Top PT INR APTT Hold Blue Top Sodium Potassium Chloride Carbon Dioxide Anion Gap BUN Creatinine Estim Creat Clear Calc Estimated GFR POC Glucose Random Glucose Fasting Glucose Lactic Acid 3.6 H* Lactic Acid Fup @ 2Hr Calcium Total Bilirubin Direct Bilirubin AST ALT Alkaline Phosphatase Lactate Dehydrogenase Troponin I High Sens Total Protein Albumin Lipase Urine Color Urine Appearance Urine pH Ur Specific [place] Urine Protein Urine Glucose (UA) Urine Ketones Urine Blood Urine Nitrite Ur Leukocyte Esterase Urine RBC Urine WBC Ur Squamous Epith Cells Ur Renal Epithelial Cell Triple Phos Crystals Urine Bacteria Stool Occult Blood POS C. difficile Toxin A&B Negative C. difficile Antigen Negative C. difficile Interpret SEE NOTE COVID-19 (ERIKA) COVID-19 [employer] 09/20/20 09/20/20 09/21/20 20:29 22:38 01:47 WBC RBC Hgb Hct MCV MCH MCHC RDW Plt Count MPV Immature Gran % (Auto) Neut % (Auto) Lymph % (Auto) [place] % (Auto) Eos % (Auto) Baso % (Auto) Lymph # (Auto) [place] # (Auto) Eos # (Auto) Baso # (Auto) Abs Immat Gran (auto) Absolute Neuts (auto) Absolute Nucleated RBC Nucleated RBC % (auto) Hold Purple Top PT INR APTT Hold Blue Top Sodium Potassium Chloride Carbon Dioxide Anion Gap BUN Creatinine Estim Creat Clear Calc Estimated GFR POC Glucose Random Glucose Fasting Glucose Lactic Acid Lactic Acid Fup @ 2Hr 1.7 Calcium Total Bilirubin Direct Bilirubin AST ALT Alkaline Phosphatase Lactate Dehydrogenase 127 Troponin I High Sens Total Protein Albumin Lipase Urine Color Urine Appearance Urine pH Ur Specific [place] Urine Protein Urine Glucose (UA) Urine Ketones Urine Blood Urine Nitrite Ur Leukocyte Esterase Urine RBC Urine WBC Ur Squamous Epith Cells Ur Renal Epithelial Cell Triple Phos Crystals Urine Bacteria Stool Occult Blood C. difficile Toxin A&B C. difficile Antigen C. difficile Interpret COVID-19 (ERIKA) Negative COVID-19 Clin Com See Note 09/21/20 09/21/20 09/21/20 02:09 04:22 04:22 WBC 12.9 H RBC 4.53 Hgb 13.3 Hct 41.1 MCV 90.7 MCH 29.4 MCHC 32.4 RDW 14.6 Plt Count 184 D MPV 11.9 Immature Gran % (Auto) 0.3 Neut % (Auto) 78.0 H Lymph % (Auto) 12.5 L [place] % (Auto) 7.6 Eos % (Auto) 1.4 Baso % (Auto) 0.2 Lymph # (Auto) 1.6 Towner # (Auto) 1.0 Eos # (Auto) 0.2 Baso # (Auto) 0.0 Abs Immat Gran (auto) 0.04 H Absolute Neuts (auto) 10.1 H Absolute Nucleated RBC 0.000 Nucleated RBC % (auto) 0.0 Hold Purple Top PT INR APTT Hold Blue Top Sodium 137 Potassium 3.4 D Chloride 99 Carbon Dioxide 30 H Anion Gap 11 L BUN 21 H Creatinine 0.77 Estim Creat Clear Calc 84.0 Estimated GFR > 60 POC Glucose 91 Random Glucose 253 H D Fasting Glucose Lactic Acid Lactic Acid Fup @ 2Hr Calcium 8.2 L D Total Bilirubin Direct Bilirubin AST ALT Alkaline Phosphatase Lactate Dehydrogenase Troponin I High Sens Total Protein Albumin Lipase Urine Color Urine Appearance Urine pH Ur Specific [place] Urine Protein Urine Glucose (UA) Urine Ketones Urine Blood Urine Nitrite Ur Leukocyte Esterase Urine RBC Urine WBC Ur Squamous Epith Cells Ur Renal Epithelial Cell Triple Phos Crystals Urine Bacteria Stool Occult Blood C. difficile Toxin A&B C. difficile Antigen C. difficile Interpret COVID-19 (ERIKA) COVID-19 Clin Com 09/21/20 09/21/20 09/21/20 07:23 11:06 13:04 WBC RBC Hgb 12.7 Hct 39.4 MCV MCH MCHC RDW Plt Count MPV Immature Gran % (Auto) Neut % (Auto) Lymph % (Auto) [place] % (Auto) Eos % (Auto) Baso % (Auto) Lymph # (Auto) [place] # (Auto) Eos # (Auto) Baso # (Auto) Abs Immat Gran (auto) Absolute Neuts (auto) Absolute Nucleated RBC Nucleated RBC % (auto) Hold Purple Top PT INR APTT Hold Blue Top Sodium Potassium Chloride Carbon Dioxide Anion Gap BUN Creatinine Estim Creat Clear Calc Estimated GFR POC Glucose 184 H 220 H Random Glucose Fasting Glucose Lactic Acid Lactic Acid Fup @ 2Hr Calcium Total Bilirubin Direct Bilirubin AST ALT Alkaline Phosphatase Lactate Dehydrogenase Troponin I High Sens Total Protein Albumin Lipase Urine Color Urine Appearance Urine pH Ur Specific [place] Urine Protein Urine Glucose (UA) Urine Ketones Urine Blood Urine Nitrite Ur Leukocyte Esterase Urine RBC Urine WBC Ur Squamous Epith Cells Ur Renal Epithelial Cell Triple Phos Crystals Urine Bacteria Stool Occult Blood C. difficile Toxin A&B C. difficile Antigen C. difficile Interpret COVID-19 (ERIKA) COVID-19 Clin [facility] 09/21/20 09/21/20 09/22/20 16:54 20:44 05:58 WBC 9.8 RBC 4.03 L Hgb 11.9 L Hct 36.0 L MCV 89.3 MCH 29.5 MCHC 33.1 RDW 14.6 Plt Count 148 L MPV 11.8 Immature Gran % (Auto) 0.3 Neut % (Auto) 69.2 Lymph % (Auto) 19.3 L Towner % (Auto) 6.1 Eos % (Auto) 4.7 H Baso % (Auto) 0.4 Lymph # (Auto) 1.9 Towner # (Auto) 0.6 Eos # (Auto) 0.5 H Baso # (Auto) 0.0 Abs Immat Gran (auto) 0.03 Absolute Neuts (auto) 6.8 Absolute Nucleated RBC 0.000 Nucleated RBC % (auto) 0.0 Hold Purple Top PT INR APTT Hold Blue Top Sodium Potassium Chloride Carbon Dioxide Anion Gap BUN Creatinine Estim Creat Clear Calc Estimated GFR POC Glucose 275 H 340 H Random Glucose Fasting Glucose Lactic Acid Lactic Acid Fup @ 2Hr Calcium Total Bilirubin Direct Bilirubin AST ALT Alkaline Phosphatase Lactate Dehydrogenase Troponin I High Sens Total Protein Albumin Lipase Urine Color Urine Appearance Urine pH Ur Specific [place] Urine Protein Urine Glucose (UA) Urine Ketones Urine Blood Urine Nitrite Ur Leukocyte Esterase Urine RBC Urine WBC Ur Squamous Epith Cells Ur Renal Epithelial Cell Triple Phos Crystals Urine Bacteria Stool Occult Blood C. difficile Toxin A&B C. difficile Antigen C. difficile Interpret COVID-19 (ERIKA) COVID-19 Clin Com 09/22/20 09/22/20 09/22/20 05:58 07:20 11:32 WBC RBC Hgb Hct MCV MCH MCHC RDW Plt Count MPV Immature Gran % (Auto) Neut % (Auto) Lymph % (Auto) [place] % (Auto) Eos % (Auto) Baso % (Auto) Lymph # (Auto) [place] # (Auto) Eos # (Auto) Baso # (Auto) Abs Immat Gran (auto) Absolute Neuts (auto) Absolute Nucleated RBC Nucleated RBC % (auto) Hold Purple Top PT INR APTT Hold Blue Top Sodium 139 Potassium 3.5 Chloride 100 Carbon Dioxide 32 H Anion Gap 11 L BUN 12 Creatinine 0.59 Estim Creat Clear Calc 109.6 Estimated GFR > 60 POC Glucose 162 H 312 H Random Glucose 172 H Fasting Glucose Lactic Acid Lactic Acid Fup @ 2Hr Calcium 8.4 Total Bilirubin Direct Bilirubin AST ALT Alkaline Phosphatase Lactate Dehydrogenase Troponin I High Sens Total Protein Albumin Lipase Urine Color Urine Appearance Urine pH Ur Specific [place] Urine Protein Urine Glucose (UA) Urine Ketones Urine Blood Urine Nitrite Ur Leukocyte Esterase Urine RBC Urine WBC Ur Squamous Epith Cells Ur Renal Epithelial Cell Triple Phos Crystals Urine Bacteria Stool Occult Blood C. difficile Toxin A&B C. difficile Antigen C. difficile Interpret COVID-19 (ERIKA) COVID-19 Clin Com 09/22/20 09/22/20 09/23/20 16:07 20:27 06:26 WBC 7.1 RBC 4.05 L Hgb 11.9 L Hct 36.8 L MCV 90.9 MCH 29.4 MCHC 32.3 RDW 14.6 Plt Count 150 L MPV 11.8 Immature Gran % (Auto) 0.3 Neut % (Auto) 61.8 Lymph % (Auto) 21.9 [place] % (Auto) 7.1 Eos % (Auto) 8.6 H Baso % (Auto) 0.3 Lymph # (Auto) 1.6 [place]er # (Auto) 0.5 Eos # (Auto) 0.6 H Baso # (Auto) 0.0 Abs Immat Gran (auto) 0.02 Absolute Neuts (auto) 4.4 Absolute Nucleated RBC 0.000 Nucleated RBC % (auto) 0.0 Hold Purple Top PT INR APTT Hold Blue Top Sodium Potassium Chloride Carbon Dioxide Anion Gap BUN Creatinine Estim Creat Clear Calc Estimated GFR POC Glucose 250 H 185 H Random Glucose Fasting Glucose Lactic Acid Lactic Acid Fup @ 2Hr Calcium Total Bilirubin Direct Bilirubin AST ALT Alkaline Phosphatase Lactate Dehydrogenase Troponin I High Sens Total Protein Albumin Lipase Urine Color Urine Appearance Urine pH Ur Specific [place] Urine Protein Urine Glucose (UA) Urine Ketones Urine Blood Urine Nitrite Ur Leukocyte Esterase Urine RBC Urine WBC Ur Squamous Epith Cells Ur Renal Epithelial Cell Triple Phos Crystals Urine Bacteria Stool Occult Blood C. difficile Toxin A&B C. difficile Antigen C. difficile Interpret COVID-19 (ERIKA) COVID-19 [employer] 09/23/20 09/23/20 09/23/20 06:26 07:27 11:15 WBC RBC Hgb Hct MCV MCH MCHC RDW Plt Count MPV Immature Gran % (Auto) Neut % (Auto) Lymph % (Auto) [place] % (Auto) Eos % (Auto) Baso % (Auto) Lymph # (Auto) [place] # (Auto) Eos # (Auto) Baso # (Auto) Abs Immat Gran (auto) Absolute Neuts (auto) Absolute Nucleated RBC Nucleated RBC % (auto) Hold Purple Top PT INR APTT Hold Blue Top Sodium 142 Potassium 3.6 Chloride 103 Carbon Dioxide 33 H Anion Gap 10 L BUN 5 L D Creatinine 0.50 Estim Creat Clear Calc 129.4 Estimated GFR > 60 POC Glucose 132 H 136 H Random Glucose 128 H Fasting Glucose Lactic Acid Lactic Acid Fup @ 2Hr Calcium 8.4 Total Bilirubin Direct Bilirubin AST ALT Alkaline Phosphatase Lactate Dehydrogenase Troponin I High Sens Total Protein Albumin Lipase Urine Color Urine Appearance Urine pH Ur Specific [place] Urine Protein Urine Glucose (UA) Urine Ketones Urine Blood Urine Nitrite Ur Leukocyte Esterase Urine RBC Urine WBC Ur Squamous Epith Cells Ur Renal Epithelial Cell Triple Phos Crystals Urine Bacteria Stool Occult Blood C. difficile Toxin A&B C. difficile Antigen C. difficile Interpret COVID-19 (ERIKA) COVID-[facility] 09/23/20 13:43 WBC RBC Hgb Hct MCV MCH MCHC RDW Plt Count MPV Immature Gran % (Auto) Neut % (Auto) Lymph % (Auto) [place] % (Auto) Eos % (Auto) Baso % (Auto) Lymph # (Auto) [place] # (Auto) Eos # (Auto) Baso # (Auto) Abs Immat Gran (auto) Absolute Neuts (auto) Absolute Nucleated RBC Nucleated RBC % (auto) Hold Purple Top PT INR APTT Hold Blue Top Sodium Potassium Chloride Carbon Dioxide Anion Gap BUN Creatinine Estim Creat Clear Calc Estimated GFR POC Glucose 167 H Random Glucose Fasting Glucose Lactic Acid Lactic Acid Fup @ 2Hr Calcium Total Bilirubin Direct Bilirubin AST ALT Alkaline Phosphatase Lactate Dehydrogenase Troponin I High Sens Total Protein Albumin Lipase Urine Color Urine Appearance Urine pH Ur Specific [place] Urine Protein Urine Glucose (UA) Urine Ketones Urine Blood Urine Nitrite Ur Leukocyte Esterase Urine RBC Urine WBC Ur Squamous Epith Cells Ur Renal Epithelial Cell Triple Phos Crystals Urine Bacteria Stool Occult Blood C. difficile Toxin A&B C. difficile Antigen C. difficile Interpret COVID-19 (ERIKA) COVID-19 Clin Com Airway Mallampati Class: II (Edentuolous) TM Dist: >3cm Neck ROM: Full Heart: IRR Lungs: CTA BL Assessment and Plan Assessment Anesthesia Assessment: Anesthesia Plan Discussed and Chart Reviewed Final Anesthetic Review NPO: Yes ASA Class: III Final Preanesthetic Review: No Changes in Pt Med Stat, Meds/Allgs Chart Reviewed and Consent Obtained/Reviewed Patient Risk: Intermediate Procedure Risk: Intermediate Anesthetic Plan Anesthetic Plan: MAC: Disposition: Standard PACU
--- NOTE | 2020-09-23 14:42 | P.CONCA_ITS ---
History of Present Illness History of Present Illness Date of Service: 09/23/20 Requesting physician: Angelita Jacobson Consult reason: atrial fibrillation Chief complaint: Sepsis, UTI, Diarrhea, TIA Narrative: We are asked to see Aleah in cardiology consultation today for noted episode of atrial fibrillation yesterday morning. This was a self terminating episode of 23 minutes. Patient is a very vague historian and focuses all of her history on GI symptoms. She says she came to the hospital because of explosive diarrhea and noted blood in her stools. She is to undergo colonoscopy to evaluate for GI source of bleeding. Stool occult is positive for blood. Does also report of her having TIA like symptoms. She has prior history of CVA. Prior history of diastolic heart failure, aortic stenosis, diabetes, hypertension. Cardiology consult was sought because of atrial fibrillation need for anticoagulation. She does not recall having any symptoms yesterday when she had atrial fibrillation with no symptoms of palpitations, chest pain, shortness of breath, lightheadedness. Again has said it is very difficult to obtain history from her. She does not report any prior history of atrial fibrillation. She had last seen Dr. Gill in July of 2018. Since then she has been following with somewhat a gunner's mate in [place], she does not recall the name Review of Systems Constitutional: Constitutional: Reports no additional constitutional complaints Cardiovascular: Cardiovascular: Reports no additional cardiovascular complaints Respiratory: Respiratory: Reports no additional respiratory complaints Gastrointestinal: Gastrointestinal: Reports hematochezia, Reports diarrhea and Reports loose stools Genitourinary: Genitourinary: Reports no additional female genitourinary complaints Musculoskeletal: Musculoskeletal: Reports no additional musculoskeletal complaints Neurologic: Reports system reviewed and no additional complaints, except as documented Psychiatric: Psychiatric: Reports no additional psychiatric complaints Endocrine: Endocrine: Reports no additional endocrine complaints Hematologic/Lymphatic: Hematologic/Lymphatic: Reports no additional he matologic/lymphatic complaints [facility] Past Medical History Medical History (Updated 09/23/20 @ 14:48 by Aaron Acosta MD) Aortic stenosis Chronic indwelling Molina catheter Chronic UTI Congestive heart failure COPD (chronic obstructive pulmonary disease) Diabetes Glaucoma H/O: CVA (cerebrovascular accident) Hypertension Obesity Osteoarthritis Paroxysmal atrial fibrillation Severe sepsis Surgical History Surgical History H/O adenoidectomy H/O enucleation of left eyeball History of tonsillectomy Social History Social History Household Members: Children and Caregiver Housing: Apartment Alcohol intake: never Smoking Status: Never smoker Second Hand Smoke Exposure: No service: No Current occupational status: disabled Meds Allergies Allergy/AdvReac Type Severity Reaction Status Date / Time silver sulfadiazine Allergy Unknown UNK Verified 06/29/20 00:20 [From SILVADENE] Active Medications: Current Medications Generic Name Dose Route Start Last Admin Trade Name Freq PRN Reason Stop Dose Admin Acetaminophen 650 mg 09/21/20 01:13 Acetaminophen 325 Mg Tablet PO Q6H PRN Pain, Mild (Pain Scale 1-3) Albuterol Sulfate 2 puff 09/21/20 01:13 Albuterol Sulfate 90 Mcg 8 Gm Inhaler INHALE Q4H PRN Shortness Of Breath Albuterol/Ipratropium 3 ml 09/21/20 01:13 Albuterol/Iprat 2.5/0.5mg 3 Ml Ampul.Neb INHALE RQ4H PRN Shortness Of Breath Aspirin 81 mg 09/21/20 09:00 09/23/20 09:10 Aspirin Enteric Coated 81 Mg Tablet.Dr PO Not Given DAILY MARJAN Atorvastatin Calcium 80 mg 09/21/20 09:00 09/23/20 09:10 Atorvastatin Calcium 80 Mg Tablet PO Not Given DAILY MARJAN Docusate Sodium 100 mg 09/21/20 01:13 Docusate Sodium 100 Mg Capsule PO DAILY PRN Constipation Fluticasone Propionate 2 puff 09/21/20 09:00 09/23/20 09:10 Fluticasone Propionate 100 Mcg Blst.W.Dev INHALE Not Given BID MARJAN Gabapentin 300 mg 09/21/20 09:00 09/23/20 09:10 Gabapentin 300 Mg Capsule PO Not Given TID MARJAN Ceftriaxone Sodium 1 gm/ 50 mls @ 100 mls/hr 09/21/20 17:00 09/22/20 16:59 Sodium Chloride IV Infused Q24H MARJAN Infusion Metronidazole 500 mg in 100 mls @ 100 mls/hr 09/21/20 02:00 09/23/20 11:44 Flagyl IV Infused Q8H MARJAN Infusion Insulin Glargine 60 unit 09/21/20 09:00 09/23/20 09:10 Insulin Glargine,Hum.Rec.Anlog 100 Unit/Ml 10 Ml Vial SUBCUT Not Given DAILY [facility] Insulin Human Lispro 0 unit 09/21/20 07:30 09/23/20 11:37 Insulin Lispro 100 Unit/Ml 3 Ml Vial SUBCUT Not Given QIDACHS [facility] Protocol Loratadine 10 mg 09/21/20 09:00 09/23/20 09:10 Loratadine 10 Mg Tablet PO Not Given DAILY [facility] Nystatin 1 appl 09/21/20 09:00 09/23/20 10:25 Nystatin Cream 15 Gm Tube TOPICAL 1 appl BID [facility] Administration Protocol Ondansetron HCl 4 mg 09/21/20 01:13 Ondansetron Hcl 4 Mg/2 Ml Vial IVPUSH Q8H PRN Nausea and Vomiting Ondansetron HCl 4 mg 09/23/20 13:47 Ondansetron Hcl 4 Mg/2 Ml Vial IVPUSH ONCE PRN Nausea and Vomiting Sodium Biphosphate/Sodium Phosphate 133 ml 09/22/20 16:17 Sodium Phosphate,[place]-Dibasic 133 Ml Enema OK ONCE PRN pre procedure Sodium Chloride 3 ml 09/21/20 01:13 09/23/20 07:45 0.9 % Sodium Chloride Flush 3 Ml Syringe IVFLUSH 3 ml QSHIFT [facility] Administration Home Medications Medication Instructions Recorded Confirmed Last Taken Type Flovent Diskus 2 puff PO BID 06/15/20 09/20/20 07/09/20 History Lantus Solostar U-100 Insulin 60 unit SUBCUT DAILY 06/15/20 09/20/20 07/09/20 History albuterol sulfate [ProAir HFA] 1 - 2 puff PO Q4-6H PRN 06/15/20 09/20/20 06/28/20 History aspirin 1 tab PO DAILY 06/15/20 09/20/20 07/09/20 History docusate sodium 1 - 2 cap PO BID PRN 06/15/20 09/20/20 06/28/20 History furosemide 40 mg PO BID 06/15/20 09/20/20 07/09/20 History insulin lispro [Humalog KwikPen 0 unit SUBCUT TIDAC 06/15/20 09/20/20 06/28/20 History Insulin] ipratropium-albuterol 1 vial INHALATION Q4-6H PRN 06/15/20 09/20/20 06/28/20 History lisinopril 1 tab PO DAILY 06/15/20 09/20/20 07/09/20 History loratadine 1 tab PO DAILY 06/15/20 09/20/20 07/09/20 History simvastatin [Zocor] 40 mg PO BEDTIME 06/15/20 09/20/20 07/08/20 History gabapentin 300 mg PO TID 07/09/20 09/20/20 Unknown History metoprolol tartrate 100 mg PO BID 07/09/20 09/20/20 07/09/20 History nystatin 1 appl TOPICAL BID 09/20/20 09/20/20 Unknown History Physical Exam Vital Signs: Vital Signs: Last Vital Signs Temp 98.5 F 09/23/20 13:47 Pulse 78 09/23/20 13:47 Resp 18 09/23/20 13:47 BP 163/89 H 09/23/20 13:47 Pulse Ox 97 09/23/20 13:47 Body Mass Index 36.8 Const: General: cooperative, comfortable, no acute distress, alert and awake Nutritional Appearance: obese Orientation/consciousness: patient oriented x3 HENMT: Head: Yes normocephalic and Yes atraumatic Neck: Neck: Yes trachea midline, Yes supple and Yes no JVD Resp: Effort & Inspection: decreased respiratory effort Auscultation: clear to auscultation bilaterally and diminished lung sounds Cardio: Jugular venous distension: no JVD Rate: regular rate Rhythm: regular rhythm Heart sounds: S1 normal heart sound present and Murmur heart sound present systolic mid, decrescendo, crescendo and harsh GI: Inspection: Yes Abdominal panniculus present and Yes obesity Auscultation: normal bowel sounds Skin: General skin exam: no rashes or lesions noted and ecchymosis Neuro: General: patient oriented x3 and no focal motor deficits Extrem: General: Yes no clubbing, cyanosis or edema Results Labs and Meds Result diagrams: 09/23/20 06:26 09/23/20 06:26 Lab results: Laboratory Results - last 24 hr 09/22/20 09/22/20 09/23/20 16:07 20:27 06:26 WBC 7.1 RBC 4.05 L Hgb 11.9 L Hct 36.8 L MCV 90.9 MCH 29.4 MCHC 32.3 RDW 14.6 Plt Count 150 L MPV 11.8 Immature Gran % (Auto) 0.3 Neut % (Auto) 61.8 Lymph % (Auto) 21.9 [place] % (Auto) 7.1 Eos % (Auto) 8.6 H Baso % (Auto) 0.3 Lymph # (Auto) 1.6 [place] # (Auto) 0.5 Eos # (Auto) 0.6 H Baso # (Auto) 0.0 Abs Immat Gran (auto) 0.02 Absolute Neuts (auto) 4.4 Absolute Nucleated RBC 0.000 Nucleated RBC % (auto) 0.0 Sodium Potassium Chloride Carbon Dioxide Anion Gap BUN Creatinine Estim Creat Clear Calc Estimated GFR POC Glucose 250 H 185 H Random Glucose Calcium 09/23/20 09/23/20 09/23/20 06:26 07:27 11:15 WBC RBC Hgb Hct MCV MCH MCHC RDW Plt Count MPV Immature Gran % (Auto) Neut % (Auto) Lymph % (Auto) [place] % (Auto) Eos % (Auto) Baso % (Auto) Lymph # (Auto) [place] # (Auto) Eos # (Auto) Baso # (Auto) Abs Immat Gran (auto) Absolute Neuts (auto) Absolute Nucleated RBC Nucleated RBC % (auto) Sodium 142 Potassium 3.6 Chloride 103 Carbon Dioxide 33 H Anion Gap 10 L BUN 5 L D Creatinine 0.50 Estim Creat Clear Calc 129.4 Estimated GFR > 60 POC Glucose 132 H 136 H Random Glucose 128 H Calcium 8.4 09/23/20 13:43 WBC RBC Hgb Hct MCV MCH MCHC RDW Plt Count MPV Immature Gran % (Auto) Neut % (Auto) Lymph % (Auto) [place] % (Auto) Eos % (Auto) Baso % (Auto) Lymph # (Auto) [place] # (Auto) Eos # (Auto) Baso # (Auto) Abs Immat Gran (auto) Absolute Neuts (auto) Absolute Nucleated RBC Nucleated RBC % (auto) Sodium Potassium Chloride Carbon Dioxide Anion Gap BUN Creatinine Estim Creat Clear Calc Estimated GFR POC Glucose 167 H Random Glucose Calcium EKG shows normal sinus rhythm with LVH with nonspecific ST abnormality with PACs. Assessment and Plan (1) Paroxysmal atrial fibrillation: Status: Acute Paroxysmal atrial fibrillation noted incidentally on cardiac telemetry while patient is being admitted for noncardiac cause question TIA and GI issue with possible GI bleed. To undergo GI procedures to evaluate for possible so urce of GI bleeding. Currently in sinus rhythm with PACs. She has multiple risk factors to develop atrial fibrillation including morbid obesity, hypertension 1 diabetes, diastolic heart failure. Will obtain an echocardiogram to assess for LV systolic and diastolic function to evaluate for severity of aortic stenosis. Currently in sinus rhythm with PACs. Continue metoprolol therapy. If she has recurrent rapid atrial fibrillation can add Cardizem therapy to her regimen as long as LV systolic function is normal. Given her multiple risk factors including prior CVA, she is at high risk for recurrent CVA related to atrial fibrillation and should be on oral anticoagulation pending GI clearance for oral anticoagulation. Will sign of the case. Feel free to call us for any further recommendations. (2) Aortic stenosis: Status: Acute Aortic stenosis prior history of at least moderate aortic stenosis. Cli nically appears to be at least moderate aortic stenosis could be moderate to severe aortic stenosis. Obtain an echocardiogram to assess for the same. Continue aggressive vascular risk factor modification. Blood pressure is elevated needs further improvement in control, consider adding Norvasc to the regimen. High-intensity statin therapy. Continue aggressive diabetes control. Patient can follow with her own gunner's mate as an outpatient
--- NOTE | 2020-09-23 15:30 | PM.OP ---
Brief Operative Note Date of Service: 09/23/20 Pre-op diagnosis: rectal bleeding colitis Post-op diagnosis: same Procedure: see op note Surgeon: Hetal Banda MD Anesthesia: MAC Estimated blood loss (mL): 0 Condition: stable Disposition: PACU
--- NOTE | 2020-09-23 15:31 | P.OP_ITS ---
Operative Note Operative Note Date of Service: 09/23/20 Narrative: Operative Information Procedure Description: Colonoscopy COLONOSCOPY Instrument: Olympus variable stiffness pediatric scope 190L Colonoscopy Monitoring: Vital signs and clinical assessment, continuous EKG monitoring, Pulse oximetry, Carbon Dioxide monitoring and blood pressure monitoring were done throughout the procedure. Procedure: The patient was placed in the left lateral decubitis position and pre-procedure medications were administered. After a digital rectal examination of the ano-rectum, the video colonoscope was inserted into the rectum and advanced through the colon to the distal ascending colon. The colonoscope was slowly withdrawn in a retrograde panoramic fashion and the colon mucosa was carefully examined including a retroflexed view of the rectum. Findings and interventions are described below. Procedure Difficulty: difficult due to looping and lack of abdo wall tone, redundant colon and BMI Findings: Terminal Ileum-not reached Cecum:not reached Rest of colon with patchy erosions and erythema, this was more confluent and worse in the rectum till the distal sigmoid. Retroflexion not done due to rectal erythema and inflammation random colon biopsy and rectal biopsy taken in different jars Colon preparation: [facility] Bowel Preparation Scale Right colon; 2 Transverse colon: 2 Left colon; 1 (0 = Unprepared colon segment with mucosa not seen due to solid stool that cannot be cleared. 1 = Portion of mucosa of the colon segment seen, but other areas of the colon segment not well seen due to staining, residual stool and/or opaque liquid. 2 = Minor amount of residual staining, small fragments of stool and/or opaque liquid, but mucosa of colon segment seen well. 3 = Entire mucosa of colon segment seen well with no residual staining, small fragments of stool or opaque liquid) Impression and Post Procedure Diagnosis: incomplete colonoscopy patchy colitis ?crohns Plan: Mr enterogram or CT enterogram if kidney function allows check fecal calprotectin might consider trial of budeosnide vs mesalamine once results are back, check fecal calprotectin will need ba enema or Ct colonography at some point to complete colon exam Above findings were reviewed with the patient and relevant handouts were provided if indicated.
[2020-09-23] MEDS: Gabapentin 300 MG CAPSULE PO ×2 (17:38→22:59)
[2020-09-23 17:55] LABS: Glucose, Whole Blood 105 mg/dL (60-115)
[2020-09-23] MEDS: cefTRIAXone sodium 1 GM in 0.9 % Sodium Chloride 50 ML IV (19:57)
[2020-09-23 20:33] LABS: Glucose, Whole Blood 259 mg/dL (60-115)
[2020-09-23] MEDS: Fluticasone Propionate 100 MCG BLST.W.DEV 2 PUFF INHALE (20:38)
[2020-09-23] MEDS: Insulin Lispro 100 UNIT/ML 3 ML VIAL SUBCUT (22:58)
[2020-09-24] VITALS (11 sets, daily range): BP systolic 141–190; BP diastolic 59–82; PULSE 66–102; RESP 17–20; TEMP 36.3–36.7; O2SAT 94–98
[2020-09-24] MEDS: 0.9 % Sodium Chloride Flush 3 ML SYRINGE IVFLUSH ×4 (00:27→22:27)
[2020-09-24] MEDS: Albuterol/Iprat 2.5/0.5MG 3 ML AMPUL.NEB INHALE (00:49)
[2020-09-24] MEDS: metroNIDAZOLE/NS 500 MG/100 ML PIGGYBACK 100 MG IV (02:55)
[2020-09-24 06:17] LABS: MANUAL DIFF FLAG NO
[2020-09-24 06:44] LABS: Basophils Percent Auto 0.5 % (0-2); Eosinophils Absolute Auto 0.6 X10*3/uL (0.0-0.4); Eosinophils Percent Auto 8.8 % (0-4); Hematocrit 35.2 % (37-47); Hemoglobin 11.1 g/dl (12.0-16.0); Imm Gran Abs Auto 0.02 X10*3/uL (0.00-0.03); Imm Gran Pct Auto 0.3 % (0.0-0.4); Lymphocytes Absolute Auto 1.4 X10*3/uL (1.2-4.9); Mean Corpuscular HGB Conc 31.5 g/dl (31.0-35.0); Mean Corpuscular Hemoglobin 28.8 pg (27.0-33.0); Mean Corpuscular Volume 91.2 fL (80-98); Monocytes Absolute Auto 0.6 X10*3/uL (0.1-1.2); Monocytes Percent Auto 9.3 % (2-11); Neutrophils Absolute Auto 3.7 X10*3/uL (2.0-8.3); Neutrophils Percent Auto 59.1 % (45-73); Platelet Count 152 X10*3/uL (160-400); Red Blood Count 3.86 X10*6/uL (4.20-5.50); Red Cell Distribution Width 14.7 % (11.0-16.0); White Blood Count 6.2 X10*3/uL (4.8-10.8)
[2020-09-24 07:06] LABS: Anion Gap 9 (12-20); Blood Urea Nitrogen 7 mg/dL (9-16); Calcium 8.1 mg/dL (8.4-10.2); Carbon Dioxide 33 mmol/L (22-29); Chloride 101 mmol/L (96-108); Creatinine Clr Calc Pharmacy 119.4; Estimated Glomerular Filt Rate > 60; Glucose Random 236 mg/dL (60-115); Potassium 3.5 mmol/L (3.3-5.1); Sodium 139 mmol/L (135-145)
[2020-09-24 07:24] LABS: Glucose, Whole Blood 193 mg/dL (60-115)
--- NOTE | 2020-09-24 07:30 | CA_ITS ---
Transthoracic Echocardiogram Patient (Last, First, Middle): Aleah Connor, Gender: Female Date of : 1950 Age: 70 Procedure Date: 09/24/2020 Procedure Type: Transthoracic Echocardiogram Location: S3W Height: 167.64 cm Weight: 103.42 kg BSA: 2.11 m2 Heart Rate: bpm BP: 141 / 59 mmHg Agriculture Extension Specialist: YURIY Cadet MD: Angelita Jacobson NP Flat Clothier: Aaron Acosta MD Symptoms: afib Study Quality: Technically Difficult ECG Rhythm: Sinus Conclusions: - 1. Normal LV systolic function with impaired relaxation filling pattern 2. Severely dilated left atrium 3. Moderate to severe aortic stenosis 4. Severe mitral and calcification and at least moderate mitral stenosis may be present 5. Moderate to severe elevation of right ventricular systolic pressure 6. No pericardial effusion Findings Left Ventricle Normal left ventricular size, thickness, and systolic function. The visually estimated ejection fraction is between 60-65%. Spectral Doppler is indicative of an impaired relaxation filling pattern. Right Ventricle Normal right ventricular cavity size and systolic function. Atria The left atrium is severely dilated. There is lipomatous hypertrophy of the interatrial septum. There is no evidence of interatrial shunt. The right atrium is mildly dilated. Aortic Valve There is moderate calcification of the aortic valve. There is moderate to severe aortic valve stenosis. The mean gradient is 27 mmHg. The aortic valve area is 1.00 cm2. There is no aortic valve regurgitation. Mitral Valve There is moderate anterior and severe posterior mitral leaflet thickening. There is severe mitral annular calcification. There is no mitral valve regurgitation. The mean mitral valve gradient is 9.00 mmHg. Pulmonic Valve The pulmonic valve was not well visualized. Tricuspid Valve Likely normal tricuspid valve structure and function. There is mild to moderate tricuspid valve regurgitation. Moderate to severe pulmonary hypertension is present. Great Vessels The aorta was not well visualized. The pulmonary artery was not well visualized. Venous The inferior vena cava is normal in size. Pericardium/Pleural There is no evidence of pericardial effusion. Prior Study Comparison Changes noted compared to prior study dated: 06/29/2020. Aortic stenosis appears to be moderately severe. Also at least moderate calcific mitral stenosis be present. RV systolic pressure is elevated in moderate to severe range Measurements 2D Linear Measurements IVSd: 1.15 0.6-0.9/0.6-1.0 cm LVIDd: 2.54 3.9-5.3/4.2-5.9 cm LVIDd Index: 1.20 2.4-3.2/2.2-3.1 cm/m2 LVIDs: 1.78 2.0-3.6 cm LVPWd: 1.11 0.7-1.1 cm Ao Root: 3.20 2.1-3.5 cm LA Diam: 3.50 2.7-3.8/3.0-4.0 cm LAIDs Index: 1.66 1.5-2.3 cm/m2 LV Mass: 97.97 67-162/88-224 g LV Mass Index: 46.43 43-95/49-115 g/m2 LVOT Diam: 2.00 3.0+(-)1.3 cm Mitral Valve MV VTI: 0.52 MV Pk Bakari: 2.16 MV Mn Bakari: 1.43 MV Pk Grad: 19.00 MV Mn Grad: 9.00 E'Lateral: 5.77 E'Medial: 7.94 PHT: 66.00 MVA PHT: 3.33 MVA Continuity: 1.33 Decel E[place]: 7.71 Aortic Valve AoV Pk Bakari: 3.77 AoV Mn Bakari: 2.32 AoV VTI: 0.70 AoV Pk Grad: 57.00 Aov Mn Grad: 27.00 BARBIE Cont.VTI: 1.00 LVOT LVOT Pk Bakari: 1.24 LVOT Mn Bakari: 0.72 LVOT VTI: 0.22 LVOT Pk Grad: 6.00 LVOT Mn Grad: 3.00 LVOT Diam: 2.00 LVOT Area: 3.14 Diastolic Function E'Medial: 7.94 E' Laterial: 5.77 Tricuspid Valve TR Pk Bakari: 3.79 TR Pk Grad: 57.00 RA Press: 3.00 RVSP: 60.00 Great Vessels Aorta Ao Root-2D: 3.20 2.0-3.7 cm Updated in Other Vendor System with Status of Final Aaron Acosta MD electronically signed on 09/24/2020 4:37:35 PM with status of Final
[2020-09-24] MEDS: Fluticasone Propionate 100 MCG BLST.W.DEV 2 PUFF INHALE ×2 (08:06→21:22)
[2020-09-24] MEDS: Gabapentin 300 MG CAPSULE PO ×3 (08:28→22:26)
[2020-09-24] MEDS: Aspirin Enteric Coated 81 MG TABLET.DR PO (08:28)
[2020-09-24] MEDS: Atorvastatin Calcium 80 MG TABLET PO (08:28)
[2020-09-24] MEDS: Loratadine 10 MG TABLET PO (08:28)
[2020-09-24] MEDS: Insulin Lispro 100 UNIT/ML 3 ML VIAL SUBCUT ×4 (08:30→22:26)
[2020-09-24] MEDS: Insulin Glargine,Hum.rec.anlog 100 UNIT/ML 10 ML VIAL 60 UNIT SUBCUT (08:31)
--- NOTE | 2020-09-24 10:09 | P.PNIM_ITS ---
Subjective Subjective Date of Service: 09/24/20 <DEANN Shay - Last Filed: 09/24/20 11:52> 09/24/20 <Jin Cam MD - Last Filed: 09/24/20 12:56> Interval History: f/u admission for colitis s/p colonoscopy yesterday Reports having cough asthma attack overnight which resolved with breathing treatment Denies abdominal pain, fever, chills <DEANN Shay - Last Filed: 09/24/20 11:52> Review of Systems Review of Systems: Yes all other systems are reviewed and are negative <DEANN Shay - Last Filed: 09/24/20 11:52> Constitutional Constitutional: Denies chills and Denies fever(s) <DEANN Shay - Last Filed: 09/24/20 11:52> Cardiovascular Cardiovascular: Denies chest pain <DEANN Shay - Last Filed: 09/24/20 11:52> Respiratory Respiratory: Denies cough <DEANN Shay - Last Filed: 09/24/20 11:52> Gastrointestinal Gastrointestinal: Denies abdominal pain <DEANN Shay - Last Filed: 09/24/20 11:52> Physical Exam Vital Signs: Vital Signs: Last Vital Signs Temp 97.5 F 09/24/20 07:16 Pulse 66 09/24/20 07:16 Resp 18 09/24/20 07:16 BP 153/74 H 09/24/20 07:16 Pulse Ox 95 09/24/20 07:16 Body Mass Index 36.8 <DEANN Shay - Last Filed: 09/24/20 11:52> Const: General: cooperative, no acute distress, alert and awake <DEANN Shay - Last Filed: 09/24/20 11:52> Nutritional Appearance: obese <DEANN Shay - Last Filed: 09/24 11:52> Orientation/consciousness: patient oriented x3 <DEANN Shay - Last Filed: 09/24/20 11:52> HENMT: Head: Yes normocephalic and Yes atraumatic <DEANN Shay - Last Filed: 09/24/20 11:52> Eyes: Sclerae: sclerae normal <DEANN Shay - Last Filed: 09/24/20 11:52> Chest: Chest palpation & inspection: normal inspection of the chest <DEANN Shay - Last Filed: 09/24/20 11:52> Resp: Effort & Inspection: normal respiratory effort and no respiratory distress <DEANN Shay - Last Filed: 09/24/20 11:52> Auscultation: clear to auscultation bilaterally <DEANN Shay - Last Filed: 09/24/20 11:52> Cardio: Rate: regular rate <DEANN Shay - Last Filed: 09/24/20 11:52> Rhythm: regular rhythm <DEANN Shay - Last Filed: 09/24/20 11:52> Heart sounds: Murmur heart sound present systolic <DEANN Shay - Last Filed: 09/24/20 11:52> GI: Palpation (GI): Soft to palpation and nontender <DEANN Shay - Last Filed: 09/24/20 11:52> : Other: rai present <DEANN Shay - Last Filed: 09/24/20 11:52> Skin: General skin exam: no rashes or lesions noted <DEANN Shay - Last Filed: 09/24/20 11:52> Neuro: General: patient oriented x3 <DEANN Shay - Last Filed: 09/24/20 11:52> Cranial nerves: Yes CN's II-XII intact bilaterally and Yes Bilaterally intact EOM present <DEANN Shay - Last Filed: 09/24/20 11:52> Extrem: General: Yes normal to inspection <DEANN Shay - Last Filed: 09/24/20 11:52> Objective Data Current Medications Generic Name Dose Route Start Last Admin Trade Name Freq PRN Reason Stop Dose Admin Acetaminophen 650 mg 09/21/20 01:13 Acetaminophen 325 Mg Tablet PO Q6H PRN Pain, Mild (Pain Scale 1-3) Albuterol Sulfate 2 puff 09/21/20 01:13 Albuterol Sulfate 90 Mcg 8 Gm Inhaler INHALE Q4H PRN Shortness Of Breath Albuterol/Ipratropium 3 ml 09/21/20 01:13 09/24/20 00:49 Albuterol/Iprat 2.5/0.5mg 3 Ml Ampul.Neb INHALE 3 ml RQ4H PRN Administration Shortness Of Breath Aspirin 81 mg 09/21/20 09:00 09/24/20 08:28 Aspirin Enteric Coated 81 Mg Tablet.Dr PO 81 mg DAILY MARJAN Administration Atorvastatin Calcium 80 mg 09/21/20 09:00 09/24/20 08:28 Atorvastatin Calcium 80 Mg Tablet PO 80 mg DAILY MARJAN Administration Docusate Sodium 100 mg 09/21/20 01:13 Docusate Sodium 100 Mg Capsule PO DAILY PRN Constipation Fluticasone Propionate 2 puff 09/21/20 09:00 09/24/20 08:06 Fluticasone Propionate 100 Mcg Blst.W.Dev INHALE 2 puff BID MARJAN Administration Gabapentin 300 mg 09/21/20 09:00 09/24/20 08:28 Gabapentin 300 Mg Capsule PO 300 mg TID MARJAN Administration Ceftriaxone Sodium 1 gm/ 50 mls @ 100 mls/hr 09/21/20 17:00 09/23/20 23:17 Sodium Chloride IV Infused Q24H MARJAN Infusion Metronidazole 500 mg in 100 mls @ 100 mls/hr 09/21/20 02:00 09/24/20 04:30 Flagyl IV Infused Q8H MARJAN Infusion Insulin Glargine 60 unit 09/21/20 09:00 09/24/20 08:31 Insulin Glargine,Hum.Rec.Anlog 100 Unit/Ml 10 Ml Vial SUBCUT 60 unit DAILY MARJAN Administration Insulin Human Lispro 0 unit 09/21/20 07:30 09/24/20 08:30 Insulin Lispro 100 Unit/Ml 3 Ml Vial SUBCUT 2 unit QIDACHS MARJAN Administration Protocol Loratadine 10 mg 09/21/20 09:00 09/24/20 08:28 Loratadine 10 Mg Tablet PO 10 mg DAILY MARJAN Administration Nystatin 1 appl 09/21/20 09:00 09/23/20 22:59 Nystatin Cream 15 Gm Tube TOPICAL 1 appl BID MARJAN Administration Protocol Ondansetron HCl 4 mg 09/21/20 01:13 Ondansetron Hcl 4 Mg/2 Ml Vial IVPUSH Q8H PRN Nausea and Vomiting Ondansetron HCl 4 mg 09/23/20 13:47 Ondansetron Hcl 4 Mg/2 Ml Vial IVPUSH ONCE PRN Nausea and Vomiting Sodium Biphosphate/Sodium Phosphate 133 ml 09/22/20 16:17 Sodium Phosphate,Dooly-Dibasic 133 Ml Enema TN ONCE PRN pre procedure Sodium Chloride 3 ml 09/21/20 01:13 09/24/20 08:30 0.9 % Sodium Chloride Flush 3 Ml Syringe IVFLUSH 3 ml QSHIFT MARJAN Administration <DEANN Shay - Last Filed: 09/24/20 11:52> Labs CBC & Chem 7: : 09/24/20 05:55 09/24/20 05:55 <DEANN Shay - Last Filed: 09/24/20 11:52> Microbiology Microbiology Results: Microbiology 09/21/20 13:32 Stool Stool Culture - Final 09/20/20 16:56 Blood - Venous Blood Culture - Preliminary No growth after 48 hours. 09/20/20 16:54 Blood - Venous Blood Culture - Final Coag negative Staphylococcus 09/20/20 16:29 Urine clean catch - Clean Catch Midstream Urine Culture - Final <DEANN Shay - Last Filed: 09/24/20 11:52> Assessment and Plan (1) Paroxysmal atrial fibrillation: Status: Acute <DEANN Shay - Last Filed: 09/24/20 11:52> (2) Diarrhea: Status: Acute <DEANN Shay - Last Filed: 09/24/20 11:52> (3) UTI (urinary tract infection): Status: Acute <DEANN Shay - Last Filed: 09/24/20 11:52> Assessment and Plan: This is a 70-year-old female with past medical history of CVA, juvenal betes, hypertension among others who presents to the hospital with complaints of TIA a like symptoms as well as persistent diarrhea. Found to have colitis # Colitis/Diarrhea-most likely inflammatory/infectious. -Colonoscopy 09/23 -colon with patchy erosions and erythema, this was more confluent and worse in the rectum till the distal sigmoid. -C diff negative, stool cx neg, will d/c abx -GI following, rec apriso 1.5g daily on discharge and outpatient GI follow up/CT enterogrophy -BCx 07/11 with coag neg staph, likely contaminant # New onset Afib. Asymptomatic. In SR now. -Echocardiogram pending -Seen by cardiology, resume home BB -Ok to start AC from GI perspective given high CHADS score -monitor for bleeding # HTN bp soft on admission r/t dehydration, BP now trending up. -will resume BB at lower dose and monitor -resume lisinopril #Asymptomatic bacteruria -UCx with likely contaminant, in setting of chonic rai. No further abx # TIA. CVA in 06/28 on aspirin and statin. -Symptoms more likely related to infection rather than TIA -seen by neurology, no further stroke workup at this time # Diabetes -continue her home insulin -Sliding scale -diabetic diet #h/o CVA continue statin -d/c ASA since starting AC with Eliquis # Sepsis-Thought to have sepsis on admission however, only had leukocytosis with no other SIRS criteria. # Obesity. BMI 37.0 -Obesity could be contributing to worsening symptoms of other comorbidities #TCP - chronic. DVT ppx - eliquis Rai -chronic indwelling rai, present on admission disposition - SNF when medically ready, ? tomorrow Attending: Dr. Cam <DEANN Shay - Last Filed: 09/24/20 11:52>
[2020-09-24 11:24] LABS: Glucose, Whole Blood 241 mg/dL (60-115)
[2020-09-24] MEDS: Apixaban 5 MG TABLET PO ×2 (11:59→22:26)
[2020-09-24] MEDS: lisinopriL 5 MG TABLET PO (12:00)
[2020-09-24] MEDS: Metoprolol Tartrate 50 MG TABLET PO ×2 (12:00→22:26)
[2020-09-24] MEDS: Nystatin Cream 15 GM TUBE 1 APPL TOPICAL ×2 (12:03→22:27)
--- NOTE | 2020-09-24 14:25 | HO.POSTANES ---
Post Anesthesia Evaluation Post Anesthesia Evaluation Vital Signs: Vital Signs Temp Pulse Resp BP Pulse Ox 09/24/20 13:47 98 09/24/20 12:00 102 H 190/82 H 09/24/20 11:10 98.0 F 102 H 18 190/82 H 96 09/24/20 07:16 97.5 F 66 18 153/74 H 95 09/24/20 03:51 97.7 F 74 20 141/59 H 94 Anesthesia: Monitored Mental Status: Awake Pain Control: Satisfactory Nausea/Vomiting: None Hydration: Adequate Anesthesia-Related Issues: No Anes. Related Issues
[2020-09-24 16:17] LABS: Glucose, Whole Blood 242 mg/dL (60-115)
[2020-09-24 20:38] LABS: Glucose, Whole Blood 254 mg/dL (60-115)
[2020-09-25] VITALS (8 sets, daily range): BP systolic 136–190; BP diastolic 69–92; PULSE 57–77; RESP 16–18; TEMP 36.2–36.6; O2SAT 95–98
[2020-09-25 07:04] LABS: Hemoglobin 11.9 g/dl (12.0-16.0); Mean Corpuscular HGB Conc 32.2 g/dl (31.0-35.0); Mean Corpuscular Hemoglobin 29.3 pg (27.0-33.0); Mean Corpuscular Volume 91.1 fL (80-98); Mean Platelet Volume 11.3 fL (9.4-12.3); Platelet Count 150 X10*3/uL (160-400); Red Blood Count 4.06 X10*6/uL (4.20-5.50); Red Cell Distribution Width 14.6 % (11.0-16.0)
[2020-09-25 07:27] LABS: Anion Gap 11 (12-20); Blood Urea Nitrogen 7 mg/dL (9-16); Carbon Dioxide 31 mmol/L (22-29); Chloride 102 mmol/L (96-108); Estimated Glomerular Filt Rate > 60; Glucose Random 143 mg/dL (60-115); Potassium 3.7 mmol/L (3.3-5.1); Sodium 140 mmol/L (135-145)
[2020-09-25 07:36] LABS: Glucose, Whole Blood 126 mg/dL (60-115)
[2020-09-25] MEDS: Fluticasone Propionate 100 MCG BLST.W.DEV 2 PUFF INHALE (07:41)
[2020-09-25 08:03] LABS: Calcium 8.4 mg/dL (8.4-10.2)
[2020-09-25] MEDS: Loratadine 10 MG TABLET PO (08:48)
[2020-09-25] MEDS: Gabapentin 300 MG CAPSULE PO (08:48)
[2020-09-25] MEDS: Atorvastatin Calcium 80 MG TABLET PO (08:48)
[2020-09-25] MEDS: Insulin Glargine,Hum.rec.anlog 100 UNIT/ML 10 ML VIAL 60 UNIT SUBCUT (08:48)
[2020-09-25] MEDS: Apixaban 5 MG TABLET PO (08:48)
[2020-09-25] MEDS: Metoprolol Tartrate 50 MG TABLET PO (08:49)
[2020-09-25] MEDS: 0.9 % Sodium Chloride Flush 3 ML SYRINGE IVFLUSH (08:51)
--- NOTE | 2020-09-25 09:09 | PM.DS ---
DS: Providers Provider Date of Service: 09/25/20 Date of admission: 09/20/20 22:25 Primary care physician: Cherise Hamm MD Consults: 09/21/20 01:13 Consult to Neurology Routine Consulting Provider: [facility] Reason for consultation: tia? Has provider been notified: No 09/22/20 09:53 Consult to Gastroenterology Routine Consulting Provider: Hetal Banda Reason for consultation: colitis/GI bleed,watery stool, now new afib, ? anticoagulation Has provider been notified: No 09/22/20 14:44 Consult to Cardiology Routine Consulting Provider: Aaron Acosta Reason for consultation: new afib Has provider been notified: No DS: Diagnosis Discharge Diagnosis (1) Paroxysmal atrial fibrillation: Status: Acute (2) Aortic stenosis: Status: Acute (3) Colitis: Status: Acute DS: Medications Discharge Medications Home Medications: Home Medications Medication Instructions Recorded Confirmed Flovent Diskus 2 puff PO BID 06/15/20 09/20/20 Lantus Solostar U-100 Insulin 60 unit SUBCUT DAILY 06/15/20 09/20/20 albuterol sulfate [ProAir HFA] 1 - 2 puff PO Q4-6H PRN 06/15/20 09/20/20 aspirin 1 tab PO DAILY 06/15/20 09/20/20 docusate sodium 1 - 2 cap PO BID PRN 06/15/20 09/20/20 furosemide 40 mg PO BID 06/15/20 09/20/20 insulin lispro [Humalog KwikPen 0 unit SUBCUT TIDAC 06/15/20 09/20/20 Insulin] ipratropium-albuterol 1 vial INHALATION Q4-6H PRN 06/15/20 09/20/20 lisinopril 1 tab PO DAILY 06/15/20 09/20/20 loratadine 1 tab PO DAILY 06/15/20 09/20/20 simvastatin [Zocor] 40 mg PO BEDTIME 06/15/20 09/20/20 gabapentin 300 mg PO TID 07/09/20 09/20/20 metoprolol tartrate 100 mg PO BID 07/09/20 09/20/20 nystatin 1 appl TOPICAL BID 09/20/20 09/20/20 DS: Summary Hospital Course Hospital Course: This is a 70-year-old female with past medical history of CVA, diabetes, hypertension among others who presents to the hospital with complaints of TIA like symptoms as well as persistent diarrhea. Found to have colitis and new onset atrial fibrillation # Colitis/Diarrhea-most likely inflammatory -Colonoscopy 09/23 -colon with patchy erosions and erythema, this was more confluent and worse in the rectum till the distal sigmoid. -Initially treated with antibiotics. C diff negative, stool cultures were negative so antibiotics were discontinued. -GI following, rec apriso 1.5g daily on discharge and outpatient GI follow up for possible CT enterogrophy for further characterization of changes seen on colonoscopy. -BCx 07/11 with coag neg staph, likely contaminant -monitor for signs of bleeding. CBC should be repeated on 09/30. # New onset Afib. Patient was noted to be in new onset atrial fibrillation. She remained asymptomatic. She converted back to NSR. She was seen in consultation with Cardiology. She was continued on her beta-justino at a lower dose. They recommended starting anticoagulation with Eliquis given multiple risk factors for stroke. This was discussed with GI who felt it was appropriate to start AC from GI perspective given high CHADS score. Echocardiogram was obtained Conclusions: - 1. Normal LV systolic function with impaired relaxation filling pattern 2. Severely dilated left atrium 3. Moderate to severe aortic stenosis 4. Severe mitral and calcification and at least moderate mitral stenosis may be present 5. Moderate to severe elevation of right ventricular systolic pressure 6. No pericardial effusion # HTN BP was soft on admission r/t dehydration, and blood pressure medication was held. BP improved and her home medications were resumed with the exception of lopressor which has been decreased. #Asymptomatic bacteruria Patient was initially started on ceftriaxone for possible UTI. Patient had no symptoms. UCx returned with likely contaminant, in setting of chonic rai. No further abx are indicated. # TIA. Patient had experienced some face numbness and tingling prior to her diarrhea. She underwent brain CT which showed no acute changes. She was evaluated by Neurology who felt that the symptoms were not related to TIA and no further workup was indicated. She was continued on her statin from previous stroke. She was started on anticoagulation with Eliquis due to new onset atrial fibrillation and thus her aspirin was discontinued # Diabetes Patient is tolerating a diabetic diet and should continue home diabetic medication #h/o CVA continue statin -d/c ASA since starting AC with Eliquis # Sepsis-Thought to have sepsis on admission however, only had leukocytosis with no other SIRS criteria. # Obesity. BMI 37.0 -Obesity could be contributing to worsening symptoms of other comorbidities #TCP - chronic. Time Spent with Patient Time attestation: Total time spent providing and/or coordinating discharge services: Discharge coordination time: Greater than 30 minutes Physical Exam Vital Signs: Vital Signs: Last Vital Signs Temp 97.1 F 09/25/20 07:02 Pulse 75 09/25/20 08:49 Resp 17 09/25/20 07:02 BP 148/78 H 09/25/20 08:49 Pulse Ox 97 09/25/20 07:02 Body Mass Index 36.8 Const: General: cooperative, no acute distress, alert and awake Nutritional Appearance: obese Orientation/consciousness: patient oriented x3 HENMT: Head: Yes normocephalic and Yes atraumatic Eyes: Sclerae: sclerae normal Chest: Chest palpation & inspection: normal inspection of the chest Resp: Effort & Inspection: normal respiratory effort and no respiratory distress Auscultation: clear to auscultation bilaterally Cardio: Rate: regular rate Rhythm: regular rhythm Heart sounds: Murmur heart sound present systolic GI: Palpation (GI): Soft to palpation and nontender : Other: rai present Skin: General skin exam: no rashes or lesions noted Neuro: General: patient oriented x3 Cranial nerves: Yes CN's II-XII intact bilaterally and Yes Bilaterally intact EOM present Extrem: Other: chronic skin discoloration b/l anterior shins DS: Data Data Completed and Pending Pending studies at discharge: Pending at discharge 09/23/20 15:19 Surgical [PTH] Routine Labs on day of discharge: Laboratory Results - last 24 hr 09/24/20 09/24/20 09/24/20 11:07 16:11 20:27 WBC RBC Hgb Hct MCV MCH MCHC RDW Plt Count MPV Absolute Nucleated RBC Nucleated RBC % (auto) Sodium Potassium Chloride Carbon Dioxide Anion Gap BUN Creatinine Estim Creat Clear Calc Estimated GFR POC Glucose 241 H 242 H 254 H Random Glucose Calcium 09/25/20 09/25/20 09/25/20 06:41 06:45 07:04 WBC 6.0 RBC 4.06 L Hgb 11.9 L Hct 37.0 MCV 91.1 MCH 29.3 MCHC 32.2 RDW 14.6 Plt Count 150 L MPV 11.3 Absolute Nucleated RBC 0.000 Nucleated RBC % (auto) 0.0 Sodium 140 Potassium 3.7 Chloride 102 Carbon Dioxide 31 H Anion Gap 11 L BUN 7 L Creatinine 0.52 Estim Creat Clear Calc 124.0 Estimated GFR > 60 POC Glucose 126 H Random Glucose 143 H D Calcium 8.4 Preliminary micro results at discharge 09/20/20 16:56 Blood Culture - Preliminary Blood - Venous No growth after 48 hours. Discharge Plan Discharge Patient Disposition: Xfer [facility] Referrals: Hetal Banda MD [Physician] - 2 Weeks (Follow up for colitis) Cherise Hamm MD [Primary Care Provider] - Discharge Medications: New mesalamine [Apriso] 0.375 gram capsule,extended release 24hr 1.5 g PO DAILY 30 Days Qty: 120 RF: 0 Eliquis 5 mg tablet 5 mg PO BID 30 Days Qty: 60 RF: 0 Continued furosemide 40 mg tablet 40 mg PO BID RF: 0 ipratropium-albuterol 0.5 mg-3 mg(2.5 mg base)/3 mL solution for nebulization 1 vial inhalation Q4-6H PRN (Reason: Shortness Of Breath) RF: 0 simvastatin [Zocor] 40 mg tablet 40 mg PO BEDTIME RF: 0 Flovent Diskus 100 mcg/actuation blister with device 2 puff PO BID RF: 0 docusate sodium 100 mg capsule 1 - 2 cap PO BID PRN (Reason: Constipation) RF: 0 lisinopril 5 mg tablet 1 tab PO DAILY RF: 0 albuterol sulfate [ProAir HFA] 90 mcg/actuation HFA aerosol inhaler 1 - 2 puff PO Q4-6H PRN (Reason: Shortness Of Breath) RF: 0 loratadine 10 mg tablet 1 tab PO DAILY RF: 0 insulin lispro [Humalog KwikPen Insulin] 100 unit/mL insulin pen 0 unit subcut TIDAC RF: 0 Lantus Solostar U-100 Insulin 100 unit/mL (3 mL) insulin pen 60 unit subcut DAILY RF: 0 nystatin 100,000 unit/gram cream 1 appl topical BID RF: 0 gabapentin 300 mg Capsule 300 mg PO TID RF: 0 Changed metoprolol tartrate 100 mg Tablet 50 mg PO BID Qty: 0 RF: 0 Discontinued aspirin 81 mg tablet,delayed release (DR/EC) 1 tab PO DAILY RF: 0 Discharge Orders: Discharge Order (Routine); Ordered 09/25/20 Ordered By: Batool Stallings Activity on Discharge: As tolerated Stand Alone Forms: Patient Portal Discharge page Care Plan Goals: See Below Health Concerns: See below Plan of Treatment: New onset atrial fibrillation -you have been started on anticoagulation with Eliquis. ASA was stopped -CBC should be repeated on 09/30 -Call your physical metallurgist to schedule a follow up appointment -Lopressor dose has been decreased to 50mg BID. Colitis -Call the director hr communications to schedule a follow up appointment for further testing. -Start taking Apriso
[2020-09-25] MEDS: Nystatin Cream 15 GM TUBE 1 APPL TOPICAL (10:29)
[2020-09-25] MEDS: lisinopriL 5 MG TABLET PO (10:30)
--- NOTE | 2020-09-25 11:04 | MHC.CM.PN ---
CALL TO [facility] ([phone]) WHO IS NOW AWARE THAT PATIENT WILL TRANSFER TO [facility] TODAY [facility]IA [facility]. CALL TO [facility] ([phone]) BUT MAIL BOX IS FULL AND CANNOT ACCEPT MESSAGES AT THIS TIME. PATIENT AND DAUGHTER STEPHANI (WAS ON SPEAKER PHONE WITH PATIENT WHILE CM WAS IN ROOM DISCUSSING DISCHARGE PLAN) IS AWARE. CURRENTLY PENDING SECOND NEGATIVE COVID RESULT IMM 09/24 IN CHART.
[2020-09-25 11:12] LABS: Glucose, Whole Blood 261 mg/dL (60-115)
[2020-09-25 11:35] LABS: COVID-19 Test Negative (Negative)
[2020-09-25] MEDS: Insulin Lispro 100 UNIT/ML 3 ML VIAL SUBCUT (11:59)
--- NOTE | 2020-09-25 12:42 | MHC.CM.PN ---
[facility] RE[facility] FOR [facility]IA [facility]. PATIENT, RN, AND UNIT AWARE
== END 2020-09-25 14:35 | disposition skilled nursing facility (03) | DRG 310 ==
LOC: HO.ED 22:34 → HO.EDOVER 23:04 → HO.S3 09-21 00:04
PROVIDERS: Internal Medicine Gastroenterology; Nurse Practitioner Acute Care; Physician Assistant Medical; Admitting Provider Internal Medicine; Emergency Provider Internal Medicine; PCP Family Medicine; Visit Provider Family Medicine
PROC: 0DJD8ZZ Inspection of Lower Intestinal Tract, Via Natural or Artificial Opening Endoscopic (ICD-10-PCS; CPT 45378; principal; 2020-09-23 14:40)
DX: I48.0 Paroxysmal atrial fibrillation (principal); K52.9 Noninfective gastroenteritis and colitis, unspecified; E11.9 Type 2 diabetes mellitus without complications; I35.0 Nonrheumatic aortic (valve) stenosis; I95.9 Hypotension, unspecified; E66.9 Obesity, unspecified; D69.6 Thrombocytopenia, unspecified; Z68.37 Body mass index [BMI] 37.0-37.9, adult; Z86.73 Personal history of transient ischemic attack (TIA), and cerebral infarction without residual deficits; Z20.822 Contact with and (suspected) exposure to COVID-19; Z79.4 Long term (current) use of insulin; Z79.01 Long term (current) use of anticoagulants; Z79.899 Other long term (current) drug therapy
CPT/HCPCS: 36415; 70450; 74176; 80048; 80076; 81001; 81003; 82272; 82947; 83605; 83615; 83690; 84484; 85014; 85018; 85025; 85027; 85610; 85730; 87040; 87045; 87046; 87086; 87205; 87324; 87449; 87635; 88305; 93005; 93306; 96365; 96367; 97162; 99285; J0696; J2250; J2370

== ENCOUNTER 2021-01-23 11:51 | Emergency (ER) | payer MEDICARE, MEDICAID, SELFPAY ==
--- NOTE | ~2021-01-23 | XR_ITS ---
EXAMINATION: XR CHEST CLINICAL INFORMATION: Cough with sputum. COMPARISON: 07/05/2020 chest radiograph. TECHNIQUE: 2 views of the chest were obtained. FINDINGS: The lungs are clear. No focal infiltrate or pleural effusion. The heart and mediastinal structures are unremarkable. XR/XR chest 2V IMPRESSION: No acute cardiopulmonary process.
[2021-01-23 12:01] VITALS: BP 123/71; BP 158/100; PULSE 61; PULSE 92; RESP 18; TEMP 37.1; O2SAT 94; BMI 40.1
--- NOTE | 2021-01-23 12:10 | PC.NURSE ---
New urinary drainage bag attached to existing urinary catheter that pt came to ED with from home/[facility].
--- NOTE | 2021-01-23 12:29 | ECG_ITS ---
Test Reason : GENERAL MEDICAL Blood Pressure : / mmHG Vent. Rate : 056 BPM Atrial Rate : 056 BPM P-R Int : 218 ms QRS Dur : 098 ms QT Int : 450 ms P-R-T Axes : 084 -08 095 degrees QTc Int : 434 ms Sinus bradycardia with marked sinus arrhythmia with 1st degree A-V block Nonspecific ST and T wave abnormality Abnormal ECG When compared with ECG of 22-SEP-2020 07:10, Premature atrial complexes are no longer Present MS interval has increased Minimal criteria for Septal infarct are no longer Present Referred By: Katalina Abdalla Electronically Signed By:Tomas Doll
[2021-01-23 13:41] LABS: MANUAL DIFF FLAG NO
[2021-01-23 13:42] LABS: Basophils Percent Auto 0.4 % (0-2); Eosinophils Absolute Auto 0.2 X10*3/uL (0.0-0.4); Eosinophils Percent Auto 2.4 % (0-4); Hematocrit 43.8 % (37-47); Hemoglobin 14.3 g/dl (12.0-16.0); Imm Gran Abs Auto 0.02 X10*3/uL (0.00-0.03); Imm Gran Pct Auto 0.3 % (0.0-0.4); Lymphocytes Absolute Auto 1.7 X10*3/uL (1.2-4.9); Lymphocytes Percent Auto 22.3 % (20-40); Mean Corpuscular HGB Conc 32.6 g/dl (31.0-35.0); Mean Corpuscular Hemoglobin 28.5 pg (27.0-33.0); Mean Corpuscular Volume 87.3 fL (80-98); Mean Platelet Volume 11.2 fL (9.4-12.3); Monocytes Absolute Auto 0.6 X10*3/uL (0.1-1.2); Monocytes Percent Auto 8.2 % (2-11); Neutrophils Percent Auto 66.4 % (45-73); Platelet Count 171 X10*3/uL (160-400); Red Blood Count 5.02 X10*6/uL (4.20-5.50); Red Cell Distribution Width 14.6 % (11.0-16.0); White Blood Count 7.6 X10*3/uL (4.8-10.8)
[2021-01-23 13:52] LABS: Glucose Urine UA NEG (NEG); Leukocyte Esterase Urine 2+ (NEG); Nitrite Urine POS (NEG); UACC Culture Trigger YES; Urine Blood TRACE (NEG); Urine Ketones NEG (NEG); Urine Protein NEG (NEG-TRACE)
[2021-01-23 13:56] LABS: INTERNATIONAL NORM RATIO 1.5 (0.9-1.1); Prothrombin Time 17.4 SEC (9.9-13.0)
[2021-01-23 14:12] LABS: Appearance Urine HAZY; Color Urine YELLOW
[2021-01-23 14:13] LABS: Bacteria Urine 1+ /LPF; RBC Urine 0-2 /HPF (0); Squamous Epithelial Cell Urine 1+ /LPF
[2021-01-23 14:16] LABS: Magnesium 1.6 mg/dL (1.6-2.6)
[2021-01-23 14:18] LABS: Alanine Aminotransferase 15 U/L (0-31); Albumin Level 3.8 g/dL (3.5-5.0); Alkaline Phosphatase 114 U/L (39-117); Anion Gap 12 (12-20); Aspartate Amino Transferase 12 U/L (5-31); Bilirubin Total 0.7 mg/dL (0.0-1.0); Blood Urea Nitrogen 12 mg/dL (9-16); Calcium 9.1 mg/dL (8.4-10.2); Carbon Dioxide 33 mmol/L (22-29); Chloride 98 mmol/L (96-108); Estimated Glomerular Filt Rate > 60; Glucose Random 200 mg/dL (60-115); Potassium 3.6 mmol/L (3.3-5.1); Sodium 139 mmol/L (135-145); Total Protein 6.6 g/dL (6.5-8.0)
[2021-01-23 14:18] LABS: Influenza A PCR NEGATIVE (Negative); Influenza B PCR NEGATIVE (Negative); Resp Syncy Virus RNA Qual PCR NEGATIVE (Negative); SARS COV2 PCR INHOUSE NEGATIVE (Negative)
[2021-01-23 14:21] LABS: B Type Natriuretic Peptide 34 pg/mL (<100)
--- NOTE | 2021-01-23 14:29 | MHC.CM.ED ---
Received telephone call from patient's daughter, Stefany. She can be reached via telephone at [phone]. Patient was discharged from [facility] on . SNF social work msw called daughter on Monday to let her know she would be discharged on . Patient reviews PUBLIC RELATIONS ACCOUNT EXECUTIVE hours through [facility] and 84 additional PUBLIC RELATIONS ACCOUNT EXECUTIVE hours through [facility]. However, because there was such short notice of discharge, Stefany had no time to get her mother's care arranged. Stefany states Monday was the first time she spoke to the social work msw since the patient was admitted to their facility. Per Stefany, facility continued to discharge patient on . Stefany has been staying with her mother overnight. She was able to arranged morning PUBLIC RELATIONS ACCOUNT EXECUTIVE's. However, patient was sent home without any rai catheter supplies. Because it was such short notice of discharge, supplies were not able to be ordered. Patient's hospital bed is currently broken. Because of all of this it is unsafe for patient to return home. DEANN Darden aware. Attempted to obtain copy of discharge summary from [facility]. Work up is pending. Continue to monitor for d/c needs.
[2021-01-23 15:11] VITALS: BP 147/56; PULSE 71; RESP 18; O2SAT 95
--- NOTE | 2021-01-23 15:11 | ED_ITS ---
HPI - General Adult General Chief complaint: General Medical Stated complaint: MALCOLM CATH ISSUE Time Seen by Provider: 01/23/21 12:18 Source: patient and EMS Mode of arrival: EMS Limitations: no limitations History of Present Illness HPI narrative: 61-year-old female with a past medical history of morbid obesity, stroke bed bound at baseline, diabetes, hypertension, chronic Malcolm and chronic UTIs, asthma, COPD, CHF, recent admission to [facility] on 09/20/2020-09/25/2020 for colitis/sepsis new onset AFib with RVR which was short- lived and was started on anticoagulation per Cardiology after her colonoscopy who was sent to [facility] for STR discharge home on Monday although there was a delay in her home VNA services and she has been living with her daughter presenting to the ED with complaints of her Malcolm catheter bag being broken at home and they did not have any replacement bags. She is also reporting that now she needs a replacement bed because her Malcolm catheter was in a basin due to the catheter bag was broken and the remote of the bed fell into the basin that was full of urine. Patient also had a separate complaint of productive cough with clear/white colored sputum since she has left the [facility]. Daughter is concerned because she does not believe that the patient has appropriate services to go back to her house therefore she is interested involving case management. She denies any dizziness, headaches, change in vision, fevers, chills, neck pain/stiffness, chest pain, orthopnea, abdominal pain, diarrhea, black or bloody stools, dysuria or hematuria or any other symptoms complaints or concerns at this time. Related Data Home Medications Medication Instructions Recorded Confirmed albuterol sulfate 1 - 2 puff PO Q4-6H PRN 01/23/21 01/23/21 albuterol sulfate [Proventil HFA] 2 puff INHALATION Q4-6H PRN 01/23/21 01/23/21 apixaban [Eliquis] 1 tab PO BID 01/23/21 01/23/21 aspirin 1 tab PO DAILY 01/23/21 01/23/21 fluticasone propionate [Flovent 1 inh INHALATION DAILY 01/23/21 01/23/21 Diskus] furosemide 1 tab PO BID 01/23/21 01/23/21 gabapentin 1 cap PO TID 01/23/21 01/23/21 insulin glargine [Lantus Solostar 80 unit SUBCUT DAILY 01/23/21 01/23/21 U-100 Insulin] insulin lispro [Humalog U-100 See Protocol SUBCUT BIDAC 01/23/21 01/23/21 Insulin] ipratropium-albuterol 1 vial INHALATION Q4-6H PRN 01/23/21 01/23/21 lisinopril 1 tab PO DAILY 01/23/21 01/23/21 metoprolol tartrate 1 tab PO BID 01/23/21 01/23/21 nystatin [Nystop] 1 applic TOPICAL BID-TID 01/23/21 01/23/21 simvastatin 1 tab PO BEDTIME 01/23/21 01/23/21 Allergies Allergy/AdvReac Type Severity Reaction Status Date / Time silver sulfadiazine Allergy Unknown UNK Verified 01/23/21 12:07 [From TRINY] Review of Systems Review of Systems: Constitutional : No Weight loss, No Fever, No Chills, No Night Sweats, No Fatigue, NoMalaise ENT/Mouth: No ear pain, No sore throat, No Difficulty swallowing Cardiovascular : No Chest Pain, No SOB, No Dyspnea on Exertion, No Orthopnea, NoEdema, No Palpitations Respiratory : Positive cough/sputum production, No Wheezing, No Dyspnea Gastrointestinal : No Nausea, No Vomiting, No abdominal pain, No Diarrhea, No bl ood streaked emesis, No coffee-ground emesis, No gross hematemesis, No blood streak stool, No gross hematochezia, No Melena Genitourinary : No irregular bleeding, No Dysuria, No Urinary Frequency, No Hematuria,No Urinary Incontinence, No Urgency, No Flank Pain Musculoskeletal : No joint pain, No Myalgias, No Joint Swelling Skin : No Skin Lesions, No rash Neuro : No Weakness, No Numbness, No Paresthesias, No Loss of Consciousness, NoDizziness, No Headache Psych : No Social Issues, Heme/Lymph: No Bruising, No Bleeding,No Lymphadenopathy Endocrine : No Polyuria, No Polydipsia, No Temperature Intolerance Yes all other systems are reviewed and are negative PMFSH Past Medical History Attestation statement: The following information was validated with the patient. Medical History Aortic stenosis Chronic indwelling Malcolm catheter Chronic UTI Congestive heart failure COPD (chronic obstructive pulmonary disease) Diabetes Glaucoma H/O: CVA (cerebrovascular accident) Hypertension Obesity Osteoarthritis Paroxysmal atrial fibrillation Severe sepsis Surgical History H/O adenoidectomy H/O enucleation of left eyeball History of tonsillectomy Social History Social History Household Members: Children and Caregiver Housing: Apartment Do you presently have visiting nurse or other home services: No Unable to assess alcohol history related to: Unknown Alcohol intake: never Second Hand Smoke Exposure: No Advance Directives: Yes Advance Directives on File: Yes Advance Directives Date on File: 07/09/20 service: No Current occupational status: disabled Physical Exam Vital Signs: Vital Signs: Last Vital Signs Temp 98.7 F 01/23/21 12:01 Pulse 71 01/23/21 15:11 Resp 18 01/23/21 15:11 BP 147/56 H 01/23/21 15:11 Pulse Ox 95 01/23/21 15:11 Body Mass Index 40.1 vital signs have been reviewed as normal and appeared to be correct. Blood pressure normal. Heart rate normal. Respiration rate normal. Temperature normal. Oxygen saturation normal. Appearance: Alert. Oriented X3. No acute distress. Head: Normal external exam. Normocephalic. Atraumatic. Eyes: PERRLA. EOMI. Conjunctiva and sclera normal. Eyelids normal. ENT:Pharynx normal. Uvula midline. Moist mucous membranes. Neck: Normal inspection. Neck supple. FROM. No adenopathy. Thyroid Normal. No meningeal signs. No neck mass noted. CVS: Normal heart rate and rhythm. Heart sound normal. Pulses normal throughout. No murmurs/rales/gallops. Respiratory: No respiratory distress. Painless inspiration. Breath sounds normal. No wheezes/rales/rhonchi noted. Chest nontender. No accessory muscle usage noted or decreased air movement noted. Abdomen: Soft and nontender. Bowel sounds normal in all 4 quadrants. No distention noted. No organomegaly noted. No visible injury noted. Back: No CVA tenderness. Full range of motion noted. No rashes/les ion/induration/fluctuance or signs of infection noted. Skin: Skin warm and dry. Normal skin color. Normal skin turgor. No rashes/lesions/lacerations noted. Extremities: No lower extremity edema. No calf tenderness noted. Extremities exhibit normal range of motion. Extremities nontender. Neuro: Oriented X 3. No motor deficit. No sensory deficit. Reflexes normal. No focal neuro deficits noted. Vascular: + radial pulses/+ 2 distal pedal pulses/+2 dorsalis pedis b/l. Normal cap refill. No cyanosis noted to upper extremity nails and lower extremity toes nails. Course Course Course Narrative: 12:30pm - 61-year-old female presenting to the ED with complaints of her Malcolm catheter bag being broken at home and they did not have any replacement bags due to delayed VNA services after being discharged from [facility] on Monday. Patient also had a separate complaint of productive cough with clear/white colored sputum since she has left the [facility]. Plan: Labs, chest x-ray, EKG, UA then re-evaluate. Reevaluation(s) Reevaluation #1: - labs reviewed carbon dioxide 33 of those this is chronic. POC 170. Otherwise all other labs are within normal limits. UA positive for nitrates therefore patient has UTI will start on antibiotics after obtaining blood cultures no lactic acid indicated as patient has no signs of sepsis. Patient negative for COVID/RSV/flu. Normal limits no acute processes are noted. - therefore patient medically cleared at this time and placing physician observation because the patient needs more time for Case Management to find appropriate services before the patient can be discharged back home to her daughter's house or back to a [place] [facility] facility. At this time patient is at baseline for mentation. No focal no Duster noted. Lungs clear to auscultati on. CV RRR. Abdomen is soft and nontender. Time: 15:32 Medical Decision Making Lab Data Result diagrams: 01/23/21 13:31 01/23/21 13:31 Labs: Lab Results 01/23/21 01/23/21 01/23/21 Range/Units 13:16 13:16 13:31 WBC 7.6 (4.8-10.8) X10*3/uL RBC 5.02 D (4.20-5.50) X10*6/uL Hgb 14.3 D (12.0-16.0) g/dl Hct 43.8 (37-47) % MCV 87.3 (80-98) fL MCH 28.5 (27.0-33.0) pg MCHC 32.6 (31.0-35.0) g/dl RDW 14.6 (11.0-16.0) % Plt Count 171 (160-400) X10*3/uL MPV 11.2 (9.4-12.3) fL Immature Gran % (Auto) 0.3 (0.0-0.4) % Neut % (Auto) 66.4 (45-73) % Lymph % (Auto) 22.3 (20-40) % [place] % (Auto) 8.2 (2-11) % Eos % (Auto) 2.4 (0-4) % Baso % (Auto) 0.4 (0-2) % Lymph # (Auto) 1.7 (1.2-4.9) X10*3/uL [place] # (Auto) 0.6 (0.1-1.2) X10*3/uL Eos # (Auto) 0.2 (0.0-0.4) X10*3/uL Baso # (Auto) 0.0 (0.0-0.2) X10*3/uL Abs Immat Gran (auto) 0.02 (0.00-0.03) X10*3/uL Absolute Neuts (auto) 5.0 (2.0-8.3) X10*3/uL Absolute Nucleated RBC 0.000 (0.0-0.012) X10*3/uL Nucleated RBC % (auto) 0.0 (0.0-0.2) /100WBC Hold Purple Top PT (9.9-13.0) SEC INR (0.9-1.1) Sodium (135-145) mmol/L Potassium (3.3-5.1) mmol/L Chloride (96-108) mmol/L Carbon Dioxide (22-29) mmol/L Anion Gap (12-20) BUN (9-16) mg/dL Creatinine (0.5-1.4) mg/dL Estim Creat Clear Calc Estimated GFR POC Glucose (60-115) mg/dL Random Glucose (60-115) mg/dL Calcium (8.4-10.2) mg/dL Magnesium (1.6-2.6) mg/dL Total Bilirubin (0.0-1.0) mg/dL AST (5-31) U/L ALT (0-31) U/L Alkaline Phosphatase (39-117) U/L B-Natriuretic Peptide (<100) pg/mL Total Protein (6.5-8.0) g/dL Albumin (3.5-5.0) g/dL Urine Color YELLOW Urine Appearance HAZY Urine pH 8.0 (5.0-8.0) Ur Specific [place] 1.010 (1.005-1.025) Urine Protein NEG (NEG-TRACE) MG/DL Urine Glucose (UA) NEG (NEG) MG/DL Urine Ketones NEG (NEG) MG/DL Urine Blood TRACE (NEG) Urine Nitrite POS H (NEG) Ur Leukocyte Esterase 2+ H (NEG) Urine RBC 0-2 (0) /HPF Urine WBC 1-4 (0-4) /HPF Ur Squamous Epith Cells 1+ /LPF Urine Bacteria 1+ /LPF Coronavirus (PCR) NEGATIVE (Negative) Influenza Type A (PCR) NEGATIVE (Negative) Influenza Type B (PCR) NEGATIVE (Negative) RSV RNA Qual (PCR) NEGATIVE (Negative) 01/23/21 01/23/21 01/23/21 Range/Units 13:31 13:31 13:31 WBC (4.8-10.8) X10*3/uL RBC (4.20-5.50) X10*6/uL Hgb (12.0-16.0) g/dl Hct (37-47) % MCV (80-98) fL MCH (27.0-33.0) pg MCHC (31.0-35.0) g/dl RDW (11.0-16.0) % Plt Count (160-400) X10*3/uL MPV (9.4-12.3) fL Immature Gran % (Auto) (0.0-0.4) % Neut % (Auto) (45-73) % Lymph % (Auto) (20-40) % [place] % (Auto) (2-11) % Eos % (Auto) (0-4) % Baso % (Auto) (0-2) % Lymph # (Auto) (1.2-4.9) X10*3/uL [place] # (Auto) (0.1-1.2) X10*3/uL Eos # (Auto) (0.0-0.4) X10*3/uL Baso # (Auto) (0.0-0.2) X10*3/uL Abs Immat Gran (auto) (0.00-0.03) X10*3/uL Absolute Neuts (auto) (2.0-8.3) X10*3/uL Absolute Nucleated RBC (0.0-0.012) X10*3/uL Nucleated RBC % (auto) (0.0-0.2) /100WBC Hold Purple Top SEE NOTE PT 17.4 H (9.9-13.0) SEC INR 1.5 H (0.9-1.1) Sodium (135-145) mmol/L Potassium (3.3-5.1) mmol/L Chloride (96-108) mmol/L Carbon Dioxide (22-29) mmol/L Anion Gap (12-20) BUN (9-16) mg/dL Creatinine (0.5-1.4) mg/dL Estim Creat Clear Calc Estimated GFR POC Glucose (60-115) mg/dL Random Glucose (60-115) mg/dL Calcium (8.4-10.2) mg/dL Magnesium 1.6 (1.6-2.6) mg/dL Total Bilirubin (0.0-1.0) mg/dL AST (5-31) U/L ALT (0-31) U/L Alkaline Phosphatase (39-117) U/L B-Natriuretic Peptide (<100) pg/mL Total Protein (6.5-8.0) g/dL Albumin (3.5-5.0) g/dL Urine Color Urine Appearance Urine pH (5.0-8.0) Ur Specific [place] (1.005-1.025) Urine Protein (NEG-TRACE) MG/DL Urine Glucose (UA) (NEG) MG/DL Urine Ketones (NEG) MG/DL Urine Blood (NEG) Urine Nitrite (NEG) Ur Leukocyte Esterase (NEG) Urine RBC (0) /HPF Urine WBC (0-4) /HPF Ur Squamous Epith Cells /LPF Urine Bacteria /LPF Coronavirus (PCR) (Negative) Influenza Type A (PCR) (Negative) Influenza Type B (PCR) (Negative) RSV RNA Qual (PCR) (Negative) 01/23/21 01/23/21 01/23/21 Range/Units 13:31 13:31 15:13 WBC (4.8-10.8) X10*3/uL RBC (4.20-5.50) X10*6/uL Hgb (12.0-16.0) g/dl Hct (37-47) % MCV (80-98) fL MCH (27.0-33.0) pg MCHC (31.0-35.0) g/dl RDW (11.0-16.0) % Plt Count (160-400) X10*3/uL MPV (9.4-12.3) fL Immature Gran % (Auto) (0.0-0.4) % Neut % (Auto) (45-73) % Lymph % (Auto) (20-40) % [place] % (Auto) (2-11) % Eos % (Auto) (0-4) % Baso % (Auto) (0-2) % Lymph # (Auto) (1.2-4.9) X10*3/uL [place] # (Auto) (0.1-1.2) X10*3/uL Eos # (Auto) (0.0-0.4) X10*3/uL Baso # (Auto) (0.0-0.2) X10*3/uL Abs Immat Gran (auto) (0.00-0.03) X10*3/uL Absolute Neuts (auto) (2.0-8.3) X10*3/uL Absolute Nucleated RBC (0.0-0.012) X10*3/uL Nucleated RBC % (auto) (0.0-0.2) /100WBC Hold Purple Top PT (9.9-13.0) SEC INR (0.9-1.1) Sodium 139 (135-145) mmol/L Potassium 3.6 (3.3-5.1) mmol/L Chloride 98 (96-108) mmol/L Carbon Dioxide 33 H (22-29) mmol/L Anion Gap 12 (12-20) BUN 12 D (9-16) mg/dL Creatinine 0.62 (0.5-1.4) mg/dL Estim Creat Clear Calc 109.0 Estimated GFR > 60 POC Glucose 170 H (60-115) mg/dL Random Glucose 200 H D (60-115) mg/dL Calcium 9.1 D (8.4-10.2) mg/dL Magnesium (1.6-2.6) mg/dL Total Bilirubin 0.7 (0.0-1.0) mg/dL AST 12 D (5-31) U/L ALT 15 (0-31) U/L Alkaline Phosphatase 114 (39-117) U/L B-Natriuretic Peptide 34 (<100) pg/mL Total Protein 6.6 (6.5-8.0) g/dL Albumin 3.8 (3.5-5.0) g/dL Urine Color Urine Appearance Urine pH (5.0-8.0) Ur Specific [place] (1.005-1.025) Urine Protein (NEG-TRACE) MG/DL Urine Glucose (UA) (NEG) MG/DL Urine Ketones (NEG) MG/DL Urine Blood (NEG) Urine Nitrite (NEG) Ur Leukocyte Esterase (NEG) Urine RBC (0) /HPF Urine WBC (0-4) /HPF Ur Squamous Epith Cells /LPF Urine Bacteria /LPF Coronavirus (PCR) (Negative) Influenza Type A (PCR) (Negative) Influenza Type B (PCR) (Negative) RSV RNA Qual (PCR) (Negative) Imaging Data Chest x-ray: Attestation: I personally reviewed and interpreted this imaging study as follows: Radiologist's impression: FINDINGS: The lungs are clear. No focal infiltrate or pleural effusion. The heart and mediastinal structures are unremarkable. XR/XR chest 2V IMPRESSION: No acute cardiopulmonary process. ECG Data Attestation: I personally reviewed and interpreted this ECG as follows: Interpretation: Sinus bradycardia with marked sinus arrhythmia with first-degree AV block with ventricular rate of [address] and T-wave abnormalities no acute ischemic change are noted. Similar when compared to prior EKG 09/22/2020. Discharge Plan Discharge Clinical Impression: UTI (urinary tract infection), Encounter for Malcolm catheter replacement, Viral bronchitis Instructions: Acute Bronchitis (ED), Urinary Tract Infection in Older Adults (ED) Prescriptions: No [facility] furosemide 40 mg tablet 1 tab PO BID RF: 0 Flovent Diskus 50 mcg/actuation blister with device 1 inh inhalation DAILY RF: 0 ipratropium-albuterol 0.5 mg-3 mg(2.5 mg base)/3 mL solution for nebulization 1 vial inhalation Q4-6H PRN (Reason: Wheezing) RF: 0 aspirin 81 mg tablet,delayed release (DR/EC) 1 tab PO DAILY RF: 0 simvastatin 40 mg tablet 1 tab PO BEDTIME RF: 0 metoprolol tartrate 50 mg tablet 1 tab PO BID RF: 0 gabapentin 300 mg capsule 1 cap PO TID RF: 0 lisinopril 5 mg tablet 1 tab PO DAILY RF: 0 nystatin [Nystop] 100,000 unit/gram powder 1 applic topical BID-TID RF: 0 insulin lispro [Humalog U-100 Insulin] 100 unit/mL solution See Protocol sliding scale dose subcut BIDAC RF: 0 albuterol sulfate 90 mcg/actuation HFA aerosol inhaler 1 - 2 puff PO Q4-6H PRN (Reason: Wheezing) RF: 0 albuterol sulfate [Proventil HFA] 90 mcg/actuation HFA aerosol inhaler 2 puff inhalation Q4-6H PRN (Reason: Wheezing) RF: 0 Lantus Solostar U-100 Insulin 100 unit/mL (3 mL) insulin pen 80 unit subcut DAILY RF: 0 Eliquis 5 mg tablet 1 tab PO BID RF: 0
[2021-01-23 15:18] LABS: Glucose, Whole Blood 170 mg/dL (60-115)
--- NOTE | 2021-01-23 15:47 | PC.NURSE ---
Blood cultues drawn. PO abx given.
--- NOTE | 2021-01-23 15:51 | PC.NURSE ---
Contact from Yisel at [facility] made to this rn [phone] ext. [phone] regarding why patient was back in er. CM made aware. Plan for CM to call [facility]/yisel de souzaind d/c planning.
--- NOTE | 2021-01-23 16:14 | MHC.CM.ED ---
Received medication list from [facility]. Placed in chart. Spoke with patient's daughter, Stefany, via telephone at [phone]. Explained work up has been negative so far and anticiapte patient will remain in ER overnight. Attempted to reach criminal justice social workerYisel at [facility]. Left voicemail requesting return telephone call. Continue to monitor for d/c needs.
[2021-01-23 18:00] VITALS: RESP 16
[2021-01-23 18:56] LABS: Glucose, Whole Blood 194 mg/dL (60-115)
[2021-01-23 20:06] VITALS: BP 141/52; PULSE 75
[2021-01-23] MEDS: Metoprolol Tartrate 50 MG TABLET PO (20:06)
[2021-01-23] MEDS: Gabapentin 300 MG CAPSULE PO (20:06)
[2021-01-23] MEDS: Apixaban 5 MG TABLET PO (20:09)
[2021-01-23] MEDS: Atorvastatin Calcium 20 MG TABLET PO (20:13)
[2021-01-23 22:00] VITALS: BP 141/96; PULSE 86; RESP 18; O2SAT 94
--- NOTE | 2021-01-23 22:18 | PC.NURSE ---
Pt coughing, recent diagnosis of bronchitis. Rt contacted for eval.
[2021-01-23] MEDS: Albuterol/Iprat 2.5/0.5MG 3 ML AMPUL.NEB INHALE (22:44)
[2021-01-23 22:45] VITALS: PULSE 64; O2SAT 93
--- NOTE | 2021-01-24 01:46 | PC.NURSE ---
Pt repositioned. Skin checked. pt denies needs.
[2021-01-24 07:16] LABS: Glucose, Whole Blood 195 mg/dL (60-115)
[2021-01-24 07:17] VITALS: BP 148/62; PULSE 62; O2SAT 100
[2021-01-24] MEDS: Insulin Lispro 100 UNIT/ML 3 ML VIAL SUBCUT ×2 (07:27→18:10)
[2021-01-24] MEDS: HYDROcodone/Homat 5/1.5/5 ML 5 ML SYRUP PO (08:05)
[2021-01-24] MEDS: Insulin Glargine,Hum.rec.anlog 100 UNIT/ML 10 ML VIAL 80 UNIT SUBCUT (08:05)
[2021-01-24 08:06] VITALS: BP 148/62; PULSE 62
[2021-01-24] MEDS: Apixaban 5 MG TABLET PO ×2 (08:06→21:26)
[2021-01-24] MEDS: Furosemide 40 MG TABLET PO ×2 (08:06→15:53)
[2021-01-24] MEDS: Gabapentin 300 MG CAPSULE PO ×3 (08:06→21:26)
[2021-01-24] MEDS: lisinopriL 5 MG TABLET PO (08:06)
[2021-01-24] MEDS: Benzonatate 100 MG CAPSULE PO (08:06)
[2021-01-24] MEDS: Metoprolol Tartrate 50 MG TABLET PO ×2 (08:06→21:26)
[2021-01-24] MEDS: Aspirin Enteric Coated 81 MG TABLET.DR PO (08:06)
--- NOTE | 2021-01-24 08:14 | PC.NURSE ---
Report taken from DAJA Munoz. pt frequently coughing, Tessalon pearls and Hydromet ordered by Dr. Greer for productive cough. Pt awaiting CM and placement.
[2021-01-24] MEDS: Nystatin Powder 15 GM BOTTLE 1 APPL TOPICAL ×2 (09:15→23:06)
--- NOTE | 2021-01-24 12:35 | MHC.CM.ED ---
Patient remains in ER. Work up does not show any reason to admit to the hospital. Spoke with patient's daughter, Stefany, via telephone at [phone]. Due to lack of [employer], lack of equipment and broken hospital bed, it would not be safe for patient to safely discharge home. Stefany agrees with this. Stefany requests referral doesn't be made to [facility]. Otherwise, Stfeany would prefer patient made a decision about which facility to choose. Will meet with patient to discuss facility choices. Continue to monitor for d/c needs.
[2021-01-24 13:28] LABS: Glucose, Whole Blood 256 mg/dL (60-115)
[2021-01-24 15:07] VITALS: BP 119/43; PULSE 70; RESP 16; TEMP 37.1; O2SAT 100
--- NOTE | 2021-01-24 16:00 | MHC.CM.ED ---
Addendum entered by Miya Harper 01/25/21 10:09: Patient received 1 dose of Jeremy and Jeremy vaccine. Original Note: Met with patient in regards to discharge planning. Patient would prefer to return home, but understands that her hospital bed is not working at this time. Patient does not want to return to [facility]. List of facilities provided to patient. Choices: 1)[facility] 2)[facility] 3)[facility]. Referrals made via [employer]. Continue to monitor for d/c needs.
[2021-01-24 18:07] LABS: Glucose, Whole Blood 224 mg/dL (60-115)
[2021-01-24 19:27] VITALS: BP 133/61; PULSE 77; RESP 17; TEMP 37.2; O2SAT 99
--- NOTE | 2021-01-24 19:30 | PC.NURSE ---
Pt aaox4, resting on stretcher in NAD, breathing with ease on NC which is not baseline for pt. Pt with hx of COPD, this RN found pt on 3L NC satting 99%, this RN titrated oxygen down to 1.5LNC and pt now satting 97%. Pt denies pain/discomfort. Pt stretcher is in low locked position, rails raised, call bain within reach. Pt ate dinner and tolerated well. Pt without complaints/concerns at this time. pt awaiting CM decision.
--- NOTE | 2021-01-24 20:19 | PC.NURSE ---
Report given to DAJA Simmons
--- NOTE | 2021-01-24 21:15 | PC.NURSE ---
Spoke with Pasha (pharmacist). Per pharmacist, no Flovent 50mcg available. Patient aware, encouraged to bring Flovent diskus from home.
[2021-01-24] MEDS: Atorvastatin Calcium 20 MG TABLET PO (21:26)
[2021-01-24] MEDS: Albuterol/Iprat 2.5/0.5MG 3 ML AMPUL.NEB INHALE (21:37)
[2021-01-24 21:38] VITALS: PULSE 74; O2SAT 98
--- NOTE | 2021-01-24 21:54 | PC.NURSE ---
Pharmacy contacted regarding Nystatin powder. Nystatin unavailable in ED Pyxis at this time, will administer upon arrival to ED. Spoke with Pasha from pharmacy. Other medications administered. Flovent diskus unavailable in necessary concentration (see previous RN note). Flovent from home to be brought tomorrow by family, so patient will not receive Flovent tonight. Provider aware.
[2021-01-24 22:28] LABS: Glucose, Whole Blood 240 mg/dL (60-115)
[2021-01-24 23:45] VITALS: BP 138/48; PULSE 68; RESP 18; O2SAT 98
[2021-01-25] VITALS (8 sets, daily range): BP systolic 105–158; BP diastolic 36–73; PULSE 63–82; RESP 18–20; TEMP 36.8; O2SAT 92–97
[2021-01-25 07:11] LABS: Glucose, Whole Blood 199 mg/dL (60-115)
[2021-01-25] MEDS: Insulin Lispro 100 UNIT/ML 3 ML VIAL SUBCUT (07:58)
[2021-01-25] MEDS: lisinopriL 5 MG TABLET PO (08:22)
[2021-01-25] MEDS: Gabapentin 300 MG CAPSULE PO ×3 (08:22→21:58)
[2021-01-25] MEDS: Metoprolol Tartrate 50 MG TABLET PO ×2 (08:22→21:58)
[2021-01-25] MEDS: Apixaban 5 MG TABLET PO ×2 (08:23→21:58)
[2021-01-25] MEDS: Insulin Glargine,Hum.rec.anlog 100 UNIT/ML 10 ML VIAL 80 UNIT SUBCUT (08:23)
[2021-01-25] MEDS: Aspirin Enteric Coated 81 MG TABLET.DR PO (08:23)
[2021-01-25] MEDS: Furosemide 40 MG TABLET PO ×2 (08:23→16:51)
[2021-01-25] MEDS: Nystatin Powder 15 GM BOTTLE 1 APPL TOPICAL ×2 (08:24→21:59)
--- NOTE | 2021-01-25 08:30 | PC.NURSE ---
Pt is alert/oriented. given AM meds and Insulin per order. Molina bag emptied for 1300ml of dark yellow urine. Pt c/o b/l shoulder pain, chronic in nature. Skin pink warm and dry. Linens changed and pt positioned up in bed to eat breakfast. Pt aware of plan for placement and agreeable. No SOB or CP. Removed off of 02 and sat 96-98% on room air. Speaking full sentences. AM POC 199.
--- NOTE | 2021-01-25 13:07 | MHC.CM.ED ---
Patient remains in ER. [facility], [facility] and [facility] are unable to offer beds. Patient wanted to stay close to home. Referrals sent to [facility]. Continue to monitor for d/c needs.
[2021-01-25 13:41] LABS: Glucose, Whole Blood 214 mg/dL (60-115)
--- NOTE | 2021-01-25 15:08 | MHC.CM.ED ---
Received telephone call from Alysa at [facility]. She can be reached via telephone at [phone]. Someone from the medical supply will come to the home tomorrow, 01/26 to assess the bed. If bed can be fixed, patient will discharge home. If bed is unable to be fixed, [facility] a [facility] under [facility]term care. Continue to monitor for d/c needs.
[2021-01-25] MEDS: Atorvastatin Calcium 20 MG TABLET PO (21:58)
[2021-01-25 22:15] LABS: Glucose, Whole Blood 260 mg/dL (60-115)
[2021-01-26 01:56] VITALS: PULSE 75; RESP 20; O2SAT 92
--- NOTE | 2021-01-26 04:18 | PC.NURSE ---
This RN in room 14 when pt in room 15 asked this RN for tylenol for R shoulder OA pain. Dr Ferrari gave verbal order for 975mg. This RN to medicate
[2021-01-26 04:24] VITALS: BP 154/65; PULSE 61; RESP 15; TEMP 37.1; O2SAT 96
[2021-01-26] MEDS: Acetaminophen 325 MG TABLET 650 MG PO (04:25)
[2021-01-26] MEDS: Acetaminophen 325 MG TABLET PO (04:25)
--- NOTE | 2021-01-26 04:34 | PC.NURSE ---
Pt repositioned more towards L side with pillows beneath pt
[2021-01-26 07:15] VITALS: BP 136/77; PULSE 64; RESP 16; O2SAT 97
[2021-01-26 07:19] LABS: Glucose, Whole Blood 162 mg/dL (60-115)
[2021-01-26] MEDS: Aspirin Enteric Coated 81 MG TABLET.DR PO (08:15)
[2021-01-26] MEDS: Gabapentin 300 MG CAPSULE PO ×2 (08:15→17:12)
[2021-01-26 08:16] VITALS: BP 136/77; PULSE 64
[2021-01-26] MEDS: lisinopriL 5 MG TABLET PO (08:16)
[2021-01-26] MEDS: Apixaban 5 MG TABLET PO (08:16)
[2021-01-26] MEDS: Furosemide 40 MG TABLET PO ×2 (08:16→17:12)
[2021-01-26] MEDS: Metoprolol Tartrate 50 MG TABLET PO (08:16)
[2021-01-26] MEDS: Insulin Glargine,Hum.rec.anlog 100 UNIT/ML 10 ML VIAL 80 UNIT SUBCUT (08:17)
[2021-01-26] MEDS: Insulin Lispro 100 UNIT/ML 3 ML VIAL SUBCUT ×2 (08:17→17:11)
[2021-01-26] MEDS: Nystatin Powder 15 GM BOTTLE 1 APPL TOPICAL (10:22)
[2021-01-26 12:32] VITALS: PULSE 67; O2SAT 94
[2021-01-26] MEDS: Albuterol/Iprat 2.5/0.5MG 3 ML AMPUL.NEB INHALE (12:32)
[2021-01-26 13:10] LABS: Glucose, Whole Blood 205 mg/dL (60-115)
--- NOTE | 2021-01-26 13:28 | MHC.CM.ED ---
Received telephone call from Rosanne at [facility]. She can be reached via telephone at [phone]. Someone from the [employer] came to assess the patient's hospital bed. They will not be able to fix it for about 2 weeks. Patient will need to go to a facility for penitentiary care until the bed can be fixed. [facility] is the only facility that is able to offer a bed. They're in the process of trying to obtain a bariatric bed for patient. Attempted to meet with patient. Patient currently sleeping. Attempted to let patient's daughter/HCP, Stefany know via telephone at [phone]. Left message requesting return telephone call. Continue to monitor for d/c needs.
--- NOTE | 2021-01-26 14:24 | MHC.CM.ED ---
Patient can leave ER at 6pm for [facility]. [facility] booked. Med nec with chart. Patient, daughter Flaco Mccallssa SHELLFISH MANAGER aware. Continue to monitor for d/c needs.
[2021-01-26 16:54] LABS: Glucose, Whole Blood 375 mg/dL (60-115)
--- NOTE | 2021-01-26 17:37 | MHC.CM.ED ---
Pt called CM on the telephone from her room to speak with CM. CM met with pt in her room. Pt had some concerns about her discharge. Pt questioning why she wasn't going to [facility]. CM explained that [facility] does not accept her insurance. Explained that only facility with a bed offer for residential care with [facility] is [facility]. Pt understands and is agreeable. Pt questioning if she could have PT/OT. Explained that PT did not recommend STR, as PT feels that pt is at her baseline, that she uses a electric wheelchair, a hospital bed and a alex lift at home. Pt acknowledges understanding. Pt agreeable to plan of care: residential care at [facility] while her hospital bed is being fixed. Part on order. Should take about 2 weeks to repair. 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 Pt appears lonely and just wanted company. Pt asked that CM call her daughter,Deb, regarding bring her some clothing. Pt aware she will have dinner and ambulance will transport her to SNF about 6pm. CM to follow for d/c needs.
== END 2021-01-26 18:00 | disposition skilled nursing facility (03) ==
PROVIDERS: Physician Assistant Medical; Emergency Provider Emergency Medicine; PCP Family Medicine
DX: N39.0 Urinary tract infection, site not specified (principal); J20.8 Acute bronchitis due to other specified organisms; E11.9 Type 2 diabetes mellitus without complications; I11.0 Hypertensive heart disease with heart failure; I50.9 Heart failure, unspecified; J44.9 Chronic obstructive pulmonary disease, unspecified; I48.0 Paroxysmal atrial fibrillation; Z79.01 Long term (current) use of anticoagulants; Z79.4 Long term (current) use of insulin; Z79.82 Long term (current) use of aspirin; Z79.899 Other long term (current) drug therapy; Z86.73 Personal history of transient ischemic attack (TIA), and cerebral infarction without residual deficits; Z20.822 Contact with and (suspected) exposure to COVID-19; Z96.0 Presence of urogenital implants; Z74.01 Bed confinement status
CPT/HCPCS: 0241U; 36415; 71046; 80053; 81001; 81003; 82947; 83735; 83880; 85025; 85610; 87040; 87086; 93005; 94640; 99285

== ENCOUNTER 2021-05-03 10:46 | Emergency (ER) | payer MEDICARE, MEDICAID, SELFPAY ==
[2021-05-03 10:52] VITALS: BP 130/61; PULSE 102; RESP 16; TEMP 36.8; O2SAT 98; BMI 40.3
--- NOTE | 2021-05-03 13:30 | ED_ITS ---
HPI - General Adult General Chief complaint: General Medical Stated complaint: Catheter problems Time Seen by Provider: 05/03/21 12:09 Source: patient Mode of arrival: ambulatory History of Present Illness HPI narrative: 70-year-old female with a past medical history of morbid obesity, CVA bed bound at baseline, DM, HTN, chronic Rai and chronic UTIs, asthma, COPD, CHF, CHF, , proximal AFib, presenting to the ED complaining reporting Rai catheter needs to be replaced s/p falling out around 3:00 a.m. Admits rai catheter just slipped out with some urine, denies trauma/tugging on area. Denies abdominal pain, nausea, vomiting, hematuria, dysuria, frequency. Admits uses 20 [place] Rai Related Data Home Medications Medication Instructions Recorded Confirmed albuterol sulfate 90 mcg/actuation 1 - 2 puff PO Q4-6H PRN 01/23/21 01/23/21 aerosol inhaler albuterol sulfate 90 mcg/actuation 2 puff INHALATION Q4-6H PRN 01/23/21 01/23/21 aerosol inhaler (Proventil HFA) apixaban 5 mg tablet (Eliquis) 1 tab PO BID 01/23/21 01/23/21 aspirin 81 mg tablet,delayed 1 tab PO DAILY 01/23/21 01/23/21 release fluticasone propionate 50 1 inh INHALATION BID 01/23/21 01/24/21 mcg/actuation blister powder for inhalation (Flovent Diskus) furosemide 40 mg tablet 1 tab PO BID 01/23/21 01/23/21 gabapentin 300 mg capsule 1 cap PO TID 01/23/21 01/23/21 insulin glargine 100 unit/mL (3 80 unit SUBCUT DAILY 01/23/21 01/23/21 mL) subcutaneous pen (Lantus Solostar U-100 Insulin) insulin lispro 100 unit/mL See Protocol SUBCUT BIDAC 01/23/21 01/23/21 subcutaneous solution (Humalog U-100 Insulin) ipratropium 0.5 mg-albuterol 3 mg 1 vial INHALATION Q4-6H PRN 01/23/21 01/23/21 (2.5 mg base)/3 mL nebulization soln lisinopril 5 mg tablet 1 tab PO DAILY 01/23/21 01/23/21 metoprolol tartrate 50 mg tablet 1 tab PO BID 01/23/21 01/23/21 nystatin 100,000 unit/gram topical 1 applic TOPICAL BID-TID 01/23/21 01/23/21 powder (Nystop) simvastatin 40 mg tablet 1 tab PO BEDTIME 01/23/21 01/23/21 Previous Rx's Medication Instructions Recorded cefuroxime axetil 250 mg tablet 250 mg PO BID 7 Days #14 tab 05/03/21 Allergies Allergy/AdvReac Type Severity Reaction Status Date / Time silver sulfadiazine Allergy Unknown UNK Verified 01/23/21 12:07 [From TRINY] Review of Systems Review of Systems: Constitutional: No Fever, No Fatigue, No Malaise ENT/Mouth: No Ear Pain, No Nasal Congestion, No sore throat Eyes: No Eye Pain, No Swelling, No Redness Cardiovascular: No Chest Pain, No SOB, No Palpitations Respiratory: No Cough, No Dyspnea Gastrointestinal: No Nausea, No Vomiting, No Diarrhea, No Constipation, No Abdominal pain Genitourinary: No irregular bleeding, No Dysuria, No Urinary Frequency, No Hematuria, No Flank Pain, No Urinary Flow Changes, No Hesitancy, + Rai catheter issue Musculoskeletal: No joint pain, No Myalgias, No Joint Swelling Skin: No Skin Lesions, No rash Neuro: No Weakness, No Numbness, No Paresthesias, No Headache Yes all other systems are reviewed and are negative [facility] Past Medical History Attestation statement: The following information was validated with the patient. Medical History Aortic stenosis Chronic indwelling Rai catheter Chronic UTI Congestive heart failure COPD (chronic obstructive pulmonary disease) Diabetes Glaucoma H/O: CVA (cerebrovascular accident) Hypertension Obesity Osteoarthritis Paroxysmal atrial fibrillation Severe sepsis Surgical History H/O adenoidectomy H/O enucleation of left eyeball History of tonsillectomy Social History Social History Household Members: Children and Caregiver Housing: Apartment Do you presently have visiting nurse or other home services: No Unable to assess alcohol history related to: Unknown Alcohol intake: never Smoked in Last 30 Days: No Second Hand Smoke Exposure: No Use of substances other than those prescribed or required for medical reasons: No Advance Directives: Yes Advance Directives on File: Yes Advance Directives Date on File: 07/09/20 service: No Current occupational status: disabled Physical Exam Vital Signs: Vital Signs: Last Vital Signs Temp 98.6 F 05/03/21 16:59 Pulse 89 05/03/21 16:59 Resp 16 05/03/21 16:59 BP 169/85 H 05/03/21 16:59 Pulse Ox 98 05/03/21 16:59 Body Mass Index 40.3 Const: General: cooperative, healthy appearing and no acute distress Nu tritional Appearance: obese morbidly obese Orientation/consciousness: patient oriented x3 Limitations: no limitations HENMT: Head: Yes normal to inspection Ears: hearing grossly normal bilaterally General nose exam: Normal external nose present Face and sinus: Yes normal facial exam Eyes: General: appearance normal, both eyes and all related structures EOM: EOMs intact bilaterally Neck: Neck: Yes normal visual inspection and Yes no meningeal signs Resp: Effort & Inspection: normal respiratory effort and no respiratory distress Cardio: Rate: regular rate Heart sounds: S1 normal heart sound present and S2 normal heart sound present GI: Inspection: Yes normal to inspection Palpation (GI): Soft to palpation, nontender, no guarding and not rigid Skin: Rashes: no rashes Wounds: no wounds Neuro: General: patient oriented x3 and no meningeal signs Extrem: General: Yes normal to inspection Course Course Course Narrative: -1550--UA grossly infected. Patient tachycardic on initially on ED arrival, low concern for severe sepsis, likely from obesity however will obtain labs including lactic/blood cultures -1728--no leukocytosis. Lactic acid negative. Glucose elevated at 370, no AG >>10 units subQ insulin given -1800--ED care transferred to DEANN Darden pending repeat POC Medical Decision Making MDM Narrative Medical decision making narrative: 70-year-old female with a past medical history of morbid obesity, CVA bed bound at baseline, DM, HTN, chronic Rai and chronic UTIs, asthma, COPD, CHF, CHF, , proximal AFib, presenting to the ED complaining reporting Rai catheter needs to be replaced s/p falling out around 3:00 a.m. On exam mildly tachycardic, NAD/nontoxic, abdomen soft nontender Will replace Rai and send UA Lab Data Result diagrams: 05/03/21 16:55 05/03/21 16:55 Labs: Lab Results 05/03/21 05/03/21 05/03/21 Range/Units 14:39 16:55 16:55 WBC 10.2 (4.8-10.8) X10*3/uL RBC 5.34 (4.20-5.50) X10*6/uL Hgb 15.2 (12.0-16.0) g/dl Hct 47.2 H (37-47) % MCV 88.4 (80-98) fL MCH 28.5 (27.0-33.0) pg MCHC 32.2 (31.0-35.0) g/dl RDW 14.2 (11.0-16.0) % Plt Count 164 (160-400) X10*3/uL MPV 11.1 (9.4-12.3) fL Immature Gran % (Auto) 0.5 H (0.0-0.4) % Neut % (Auto) 81.3 H (45-73) % Lymph % (Auto) 9.3 L (20-40) % Murray % (Auto) 7.3 (2-11) % Eos % (Auto) 1.4 (0-4) % Baso % (Auto) 0.2 (0-2) % Lymph # (Auto) 1.0 L (1.2-4.9) X10*3/uL Murray # (Auto) 0.7 (0.1-1.2) X10*3/uL Eos # (Auto) 0.1 (0.0-0.4) X10*3/uL Baso # (Auto) 0.0 (0.0-0.2) X10*3/uL Abs Immat Gran (auto) 0.05 H (0.00-0.03) X10*3/uL Absolute Neuts (auto) 8.3 (2.0-8.3) X10*3/uL Absolute Nucleated RBC 0.000 (0.0-0.012) X10*3/uL Nucleated RBC % (auto) 0.0 (0.0-0.2) /100WBC Sodium 136 (135-145) mmol/L Potassium 4.3 (3.3-5.1) mmol/L Chloride 94 L (96-108) mmol/L Carbon Dioxide 34 H (22-29) mmol/L Anion Gap 12 (12-20) BUN 16 (9-16) mg/dL Creatinine 0.77 (0.5-1.4) mg/dL Estim Creat Clear Calc 88.1 Estimated GFR > 60 Random Glucose 370 H* (60-115) mg/dL Lactic Acid (0.5-2.0) mmol/L Calcium 9.4 (8.4-10.2) mg/dL Urine Color YELLOW Urine Appearance CLOUDY Urine pH 6.0 (5.0-8.0) Ur Specific [place] 1.020 (1.005-1.025) Urine Protein 2+ H (NEG-TRACE) MG/DL Urine Glucose (UA) >=1000 H (NEG) MG/DL Urine Ketones NEG (NEG) MG/DL Urine Blood 3+ H (NEG) Urine Nitrite NEG (NEG) Ur Leukocyte Esterase TRACE H (NEG) Urine RBC 76-150 H (0) /HPF Urine WBC 30-49 H (0-4) /HPF Ur Squamous Epith Cells 2+ /LPF Urine Bacteria 1+ /LPF 05/03/ Range/Units 16:55 WBC (4.8-10.8) X10*3/uL RBC (4.20-5.50) X10*6/uL Hgb (12.0-16.0) g/dl Hct (37-47) % MCV (80-98) fL MCH (27.0-33.0) pg MCHC (31.0-35.0) g/dl RDW (11.0-16.0) % Plt Count (160-400) X10*3/uL MPV (9.4-12.3) fL Immature Gran % (Auto) (0.0-0.4) % Neut % (Auto) (45-73) % Lymph % (Auto) (20-40) % Murray % (Auto) (2-11) % Eos % (Auto) (0-4) % Baso % (Auto) (0-2) % Lymph # (Auto) (1.2-4.9) X10*3/uL Murray # (Auto) (0.1-1.2) X10*3/uL Eos # (Auto) (0.0-0.4) X10*3/uL Baso # (Auto) (0.0-0.2) X10*3/uL Abs Immat Gran (auto) (0.00-0.03) X10*3/uL Absolute Neuts (auto) (2.0-8.3) X10*3/uL Absolute Nucleated RBC (0.0-0.012) X10*3/uL Nucleated RBC % (auto) (0.0-0.2) /100WBC Sodium (135-145) mmol/L Potassium (3.3-5.1) mmol/L Chloride (96-108) mmol/L Carbon Dioxide (22-29) mmol/L Anion Gap (12-20) BUN (9-16) mg/dL Creatinine (0.5-1.4) mg/dL Estim Creat Clear Calc Estimated GFR Random Glucose (60-115) mg/dL Lactic Acid 1.2 (0.5-2.0) mmol/L Calcium (8.4-10.2) mg/dL Urine Color Urine Appearance Urine pH (5.0-8.0) Ur Specific [place] (1.005-1.025) Urine Protein (NEG-TRACE) MG/DL Urine Glucose (UA) (NEG) MG/DL Urine Ketones (NEG) MG/DL Urine Blood (NEG) Urine Nitrite (NEG) Ur Leukocyte Esterase (NEG) Urine RBC (0) /HPF Urine WBC (0-4) /HPF Ur Squamous Epith Cells /LPF Urine Bacteria /LPF Discharge Plan Discharge Clinical Impression: Acute UTI, Acute hyperglycemia Instructions: Urinary Tract Infection in Women (ED) Additional Instructions: You have a urinary tract infection, Ceftin is antibiotic, please take as prescribed Your glucose was also elevated today in the emergency department, make sure your monitoring at home, take a home prescribed medications Please follow-up with her doctor and your urologist, if her symptoms persist or worsen, you have fever, abdominal pain, blood in her urine, burning/discomfort when you urinate please return to the ED Prescriptions: New cefuroxime axetil 250 mg tablet 250 mg PO BID 7 Days Qty: 14 RF: 0 No Action furosemide 40 mg tablet 1 tab PO BID RF: 0 Flovent Diskus 50 mcg/actuation blister with device 1 inh inhalation BID RF: 0 ipratropium-albuterol 0.5 mg-3 mg(2.5 mg base)/3 mL solution for nebulization 1 vial inhalation Q4-6H PRN (Reason: Wheezing) RF: 0 aspirin 81 mg tablet,delayed release (DR/EC) 1 tab PO DAILY RF: 0 simvastatin 40 mg tablet 1 tab PO BEDTIME RF: 0 metoprolol tartrate 50 mg tablet 1 tab PO BID RF: 0 gabapentin 300 mg capsule 1 cap PO TID RF: 0 lisinopril 5 mg tablet 1 tab PO DAILY RF: 0 nystatin [Nystop] 100,000 unit/gram powder 1 applic topical BID-TID RF: 0 insulin lispro [Humalog U-100 Insulin] 100 unit/mL solution See Protocol sliding scale dose subcut BIDAC RF: 0 albuterol sulfate 90 mcg/actuation HFA aerosol inhaler 1 - 2 puff PO Q4-6H PRN (Reason: Wheezing) RF: 0 albuterol sulfate [Proventil HFA] 90 mcg/actuation HFA aerosol inhaler 2 puff inhalation Q4-6H PRN (Reason: Wheezing) RF: 0 Lantus Solostar U-100 Insulin 100 unit/mL (3 mL) insulin pen 80 unit subcut DAILY RF: 0 Eliquis 5 mg tablet 1 tab PO BID RF: 0 Referrals: Cherise Hamm MD [Primary Care Provider] - 2 days
[2021-05-03 14:57] LABS: Appearance Urine CLOUDY; Color Urine YELLOW; Glucose Urine UA >=1000 MG/DL (NEG); Leukocyte Esterase Urine TRACE (NEG); Nitrite Urine NEG (NEG); UACC Culture Trigger YES; Urine Blood 3+ (NEG); Urine Ketones NEG (NEG); Urine Protein 2+ MG/DL (NEG-TRACE)
--- NOTE | 2021-05-03 15:00 | PC.NURSE ---
pt reported that her rai catheter was accidentally pulled out around 3 a.m. this morning. Pt lives alone and is wheelchair bound, she has a CUSTOMER SUPPORT ENGINEER that helps her during the day. Pt was completely saturated in urine as well as her electric wheelchair. incontinent care done, 18 Fr 10cc rai catheter inserted. pt tolerated well.
[2021-05-03 15:04] LABS: Bacteria Urine 1+ /LPF; Squamous Epithelial Cell Urine 2+ /LPF; WBC Urine 30-49 /HPF (0-4)
[2021-05-03 16:59] VITALS: BP 169/85; PULSE 89; RESP 16; TEMP 37; O2SAT 98
[2021-05-03 17:04] LABS: MANUAL DIFF FLAG NO
[2021-05-03 17:06] LABS: Basophils Percent Auto 0.2 % (0-2); Eosinophils Absolute Auto 0.1 X10*3/uL (0.0-0.4); Eosinophils Percent Auto 1.4 % (0-4); Hematocrit 47.2 % (37-47); Hemoglobin 15.2 g/dl (12.0-16.0); Imm Gran Abs Auto 0.05 X10*3/uL (0.00-0.03); Imm Gran Pct Auto 0.5 % (0.0-0.4); Lymphocytes Percent Auto 9.3 % (20-40); Mean Corpuscular HGB Conc 32.2 g/dl (31.0-35.0); Mean Corpuscular Hemoglobin 28.5 pg (27.0-33.0); Mean Corpuscular Volume 88.4 fL (80-98); Mean Platelet Volume 11.1 fL (9.4-12.3); Monocytes Absolute Auto 0.7 X10*3/uL (0.1-1.2); Monocytes Percent Auto 7.3 % (2-11); Neutrophils Absolute Auto 8.3 X10*3/uL (2.0-8.3); Neutrophils Percent Auto 81.3 % (45-73); Platelet Count 164 X10*3/uL (160-400); Red Blood Count 5.34 X10*6/uL (4.20-5.50); Red Cell Distribution Width 14.2 % (11.0-16.0); White Blood Count 10.2 X10*3/uL (4.8-10.8)
[2021-05-03 17:14] LABS: Lactic Acid 1.2 mmol/L (0.5-2.0)
[2021-05-03 17:24] LABS: Anion Gap 12 (12-20); Blood Urea Nitrogen 16 mg/dL (9-16); Calcium 9.4 mg/dL (8.4-10.2); Carbon Dioxide 34 mmol/L (22-29); Chloride 94 mmol/L (96-108); Creatinine Clr Calc Pharmacy 88.1; Estimated Glomerular Filt Rate > 60; Glucose Random 370 mg/dL (60-115); Potassium 4.3 mmol/L (3.3-5.1); Sodium 136 mmol/L (135-145)
[2021-05-03] MEDS: Insulin Lispro 100 UNIT/ML 3 ML VIAL 10 UNIT SUBCUT (17:49)
[2021-05-03 18:38] VITALS: BP 169/74; PULSE 86; RESP 18; TEMP 37.1; O2SAT 94
[2021-05-03 18:42] LABS: Glucose, Whole Blood 309 mg/dL (60-115)
[2021-05-03] MEDS: 0.9 % Sodium Chloride 1,000 ML 500 ML IVCONT (19:27)
[2021-05-03] MEDS: Insulin Regular, Human 100 UNIT/ML 3 ML VIAL IVPUSH (19:29)
[2021-05-03 21:16] LABS: Glucose, Whole Blood 229 mg/dL (60-115)
--- NOTE | 2021-05-03 23:37 | PC.NURSE ---
EMS ARRIVING TRANSPORT FOR PATIENT TO GET BACK HOME. EMS CREW REPORTING THEY CAN NOT TAKE THE PATIENTS WHEELCHAIR WITH THEM WHICH IS PATIENTS METHOD OF TRANSPORT DUE TO THE FACT THEY ARE UNABLE TO AMBULATE.. [facility]S WHEELCHAIR VAN WILL NOT BE AVAILABLE UNTIL TOMORROW AT 830AM THE EARLIEST. THIS RN TALKING WITH CERTIFIED LOW VISION THERAPIST AT [phone], CERTIFIED LOW VISION THERAPIST INQUIRING IF THE PATIENT COULD BE BROUGHT HOME WITH EMS AND SHE WOULD WORK ON GETTING THE WHEELCHAIR TO THE PATIENTS HOME IN THE AM IF POSSIBLE. LOOKING INTO OUR SHUTTLE VANS WELL THAT RUN DURING THE DAY ABOUT GETTING THE PATIENT HOME SOONER THAN MID MORNING. TALKING WITH BELL VALET PHAM AND DR BOGGS AND DEANN DELUCA ABOUT PATIENT, DISCUSSING PATIENTS CONDITIONS AT HOME AND POSSIBLE NEED FOR FURTHER FOLLOW UP WITH CERTIFIED LOW VISION THERAPIST. DISCUSSING ISSUE WITH THE NURSING TRASH TRUCK DRIVER. CONSULT FOR CASE MANAGEMENT IN PLACE FOR FOLLOW UP WITH THIS ISSUE REGARDING TRANSPORTATION AND SERVICES AT HOME. WILL ATTEMPT TO BOOK WHEELCHAIR VAN WITH [facility] IN THE AM WHEN IT IS AVAILABLE AFTER CASE MANAGEMENT FOLLOW UP. PATIENT IS BED BOUND AND UNABLE TO CARE FOR HERSELF. CERTIFIED LOW VISION THERAPIST FOR PATIENT HAS HAD SEVERAL VOICEMAILS LEFT FOR UPDATES REGARDING PATIENT AND THAT SHE WILL BE STAYING THE NIGHT AFTER THERE WAS TRANSPORTATION ISSUES AND ISSUES TRANSPORTING HER ASSISTIVE DEVICE.
--- NOTE | 2021-05-04 01:44 | PC.NURSE ---
Completed per care and repositioned pt. Changed into a clean and dry hospital attire.
[2021-05-04 06:21] LABS: Glucose, Whole Blood 258 mg/dL (60-115)
--- NOTE | 2021-05-04 08:46 | PC.NURSE ---
Spoke to patient's silver chaser and pt has a ride that will be here around 10am
[2021-05-04 09:02] VITALS: BP 135/70; PULSE 73; RESP 16; O2SAT 99
--- NOTE | 2021-05-04 09:09 | MHC.CM.ED ---
Received case management consult overnight. Chair van transport was not able to be booked. Received notification from DAJA Clark that patient's rehabilitation caseworker was able to arranged transportation for 10am this morning. Received telephone call from Cherise aguilar. Patient is active with [facility]. Patient will return home with resumption of services.
== END 2021-05-04 12:10 | disposition home or self-care (01) ==
PROVIDERS: Physician Assistant; Emergency Provider Emergency Medicine; PCP Family Medicine
DX: N39.0 Urinary tract infection, site not specified (principal); E11.65 Type 2 diabetes mellitus with hyperglycemia; I11.0 Hypertensive heart disease with heart failure; I50.9 Heart failure, unspecified; J44.9 Chronic obstructive pulmonary disease, unspecified; I48.0 Paroxysmal atrial fibrillation; E66.01 Morbid (severe) obesity due to excess calories; Z86.73 Personal history of transient ischemic attack (TIA), and cerebral infarction without residual deficits; Z74.01 Bed confinement status
CPT/HCPCS: 36415; 80048; 81001; 82947; 83605; 85025; 87040; 87086; 96361; 96374; 99284

== ENCOUNTER 2021-05-04 16:40 | Emergency (ER) | payer MEDICARE, MEDICAID, SELFPAY ==
[2021-05-04 16:49] VITALS: BP 123/46; PULSE 77; RESP 18; TEMP 37.5; O2SAT 91; BMI 49.6
[2021-05-04 16:56] VITALS: BP 123/46; PULSE 77; RESP 18; TEMP 37.5; O2SAT 96
--- NOTE | 2021-05-04 17:14 | ED.GENADULT ---
HPI - General Adult General Chief complaint: General Medical Stated complaint: urinary issues Time Seen by Provider: 05/04/21 17:14 Source: EMS Mode of arrival: EMS History of Present Illness HPI narrative: Patient came from senior living for dislodged Molina catheter while moving with hover lift catheter got entangled and came no active bleeding or hematuria, catheter was placed yesterday here in the ER , no other active complaint Related Data Home Medications Medication Instructions Recorded Confirmed albuterol sulfate 90 mcg/actuation 2 puff INHALATION Q4-6H PRN 01/23/21 01/23/21 aerosol inhaler (Proventil HFA) apixaban 5 mg tablet (Eliquis) 1 tab PO BID 01/23/21 01/23/21 aspirin 81 mg tablet,delayed 1 tab PO DAILY 01/23/21 01/23/21 release fluticasone propionate 50 1 inh INHALATION BID 01/23/21 01/24/21 mcg/actuation blister powder for inhalation (Flovent Diskus) gabapentin 300 mg capsule 1 cap PO TID 01/23/21 01/23/21 insulin glargine 100 unit/mL (3 80 unit SUBCUT DAILY 01/23/21 01/23/21 mL) subcutaneous pen (Lantus Solostar U-100 Insulin) insulin lispro 100 unit/mL See Protocol SUBCUT BIDAC 01/23/21 01/23/21 subcutaneous solution (Humalog U-100 Insulin) ipratropium 0.5 mg-albuterol 3 mg 1 vial INHALATION Q4-6H PRN 01/23/21 01/23/21 (2.5 mg base)/3 mL nebulization soln lisinopril 5 mg tablet 1 tab PO DAILY 01/23/21 01/23/21 metoprolol tartrate 50 mg tablet 1 tab PO BID 01/23/21 01/23/21 simvastatin 40 mg tablet 1 tab PO BEDTIME 01/23/21 01/23/21 furosemide 20 mg tablet 1 tab PO DAILY 05/04/21 Previous Rx's Medication Instructions Recorded cefuroxime axetil 250 mg tablet 250 mg PO BID 7 Days #14 tab 05/03/21 Allergies Allergy/AdvReac Type Severity Reaction Status Date / Time silver sulfadiazine Allergy Unknown UNK Verified 01/23/21 12:07 [From TRINY] Review of Systems Review of Systems: Yes all other systems are reviewed and are negative [facility] Past Medical History Medical History Aortic stenosis Chronic indwelling Molina catheter Chronic UTI Congestive heart failure COPD (chronic obstructive pulmonary disease) Diabetes Glaucoma H/O: CVA (cerebrovascular accident) Hypertension Obesity Osteoarthritis Paroxysmal atrial fibrillation Severe sepsis Surgical History H/O adenoidectomy H/O enucleation of left eyeball History of tonsillectomy Social History Social History Household Members: Children and Caregiver Housing: Apartment Do you presently have visiting nurse or other home services: No Unable to assess alcohol history related to: Unknown Alcohol intake: never Patient Tobacco Use Status: Never used Tobacco Second Hand Smoke Exposure: No Use of substances other than those prescribed or required for medical reasons: No Advance Directives: No Advance Directives Information Provided: No Advance Directives Date on File: 07/09/20 service: No Current occupational status: disabled Physical Exam Vital Signs: Vital Signs: Last Vital Signs Temp 99.5 F 05/04/21 16:56 Pulse 77 05/04/21 16:56 Resp 18 05/04/21 16:56 BP 123/46 L 05/04/21 16:56 Pulse Ox 96 05/04/21 16:56 Body Mass Index 49.6 Appearance: Alert. Oriented X3. Obese No acute distress. ENT: Pharynx normal. Oral Mucosa moist Neck: Normal inspection. Neck supple. CVS: Normal heart rate and rhythm. Pulses normal. Respiratory: No respiratory distress. Equal air entry bilateral, Abdomen: Soft and nontender. Bowel sounds are present, no mass palpable, Skin: Skin warm and dry. Normal skin color. Normal skin turgor. Extremities: No lower extremity edema. No calf tenderness Neuro: Oriented X 3. Medical Decision Making MDM Narrative Medical decision making narrative: Molina catheter replaced discharge patient back to senior living Discharge Plan Discharge Clinical Impression: Dislodged Molina catheter Qualifiers: Encounter type: initial encounter Qualified Code(s): T83.021A - Displacement of indwelling urethral catheter, initial encounter Patient Disposition: Xfer SNF Instructions: Molina Catheter Placement and Care (ED) Additional Instructions: Molina catheter care as advised continue antibiotics and other medications Prescriptions: No Action Flovent Diskus 50 mcg/actuation blister with device 1 inh inhalation BID RF: 0 ipratropium-albuterol 0.5 mg-3 mg(2.5 mg base)/3 mL solution for nebulization 1 vial inhalation Q4-6H PRN (Reason: Wheezing) RF: 0 aspirin 81 mg tablet,delayed release (DR/EC) 1 tab PO DAILY RF: 0 simvastatin 40 mg tablet 1 tab PO BEDTIME RF: 0 metoprolol tartrate 50 mg tablet 1 tab PO BID RF: 0 gabapentin 300 mg capsule 1 cap PO TID RF: 0 lisinopril 5 mg tablet 1 tab PO DAILY RF: 0 insulin lispro [Humalog U-100 Insulin] 100 unit/mL solution See Protocol sliding scale dose subcut BIDAC RF: 0 albuterol sulfate [Proventil HFA] 90 mcg/actuation HFA aerosol inhaler 2 puff inhalation Q4-6H PRN (Reason: Wheezing) RF: 0 Lantus Solostar U-100 Insulin 100 unit/mL (3 mL) insulin pen 80 unit subcut DAILY RF: 0 Eliquis 5 mg tablet 1 tab PO BID RF: 0 cefuroxime axetil 250 mg tablet 250 mg PO BID 7 Days Qty: 14 RF: 0 furosemide 20 mg tablet 1 tab PO DAILY RF: 0
[2021-05-04 20:50] VITALS: BP 122/38; PULSE 69; RESP 24; TEMP 37.9; O2SAT 100
== END 2021-05-04 21:25 | disposition skilled nursing facility (03) ==
PROVIDERS: Emergency Provider Internal Medicine
DX: T83.021A Displacement of indwelling urethral catheter, initial encounter (principal); Y82.9 Unspecified medical devices associated with adverse incidents
CPT/HCPCS: 51702; 99283; 99284

== ENCOUNTER 2021-05-18 12:43 | Outpatient (RCR) | payer MEDICARE, MEDICAID, SELFPAY | END 2021-05-25 16:00 | disposition home or self-care (01) | LOC: HO.WCC 12:43 | PROVIDERS: Visit Provider Surgery | DX: S90.122D Contusion of left lesser toe(s) without damage to nail, subsequent encounter (principal); E11.9 Type 2 diabetes mellitus without complications; J44.9 Chronic obstructive pulmonary disease, unspecified; G47.33 Obstructive sleep apnea (adult) (pediatric); I48.91 Unspecified atrial fibrillation; I11.0 Hypertensive heart disease with heart failure; I50.9 Heart failure, unspecified; Z99.3 Dependence on wheelchair | CPT/HCPCS: 99212 ==

== ENCOUNTER 2021-05-28 10:05 | Emergency (ER) | payer MEDICARE, MEDICAID, SELFPAY ==
[2021-05-28 10:36] VITALS: PULSE 75; O2SAT 95
--- NOTE | 2021-05-28 10:55 | ED.SKABFB ---
HPI - Skin/Abscess/Foreign Bdy General Chief complaint: Skin/Abscess/Foreign Body Stated complaint: pressure wound Time Seen by Provider: 05/28/21 10:22 Source: patient Mode of arrival: ambulatory Limitations: no limitations History of Present Illness HPI narrative: 70 yold female with pmh of morbid obesity, CVA, and DM presents to the ED for evaluation of pressure wound. Patient states she was cleaned for the first time in a week by Visiting nurses today. patient states she was in feces because there was no Thi to lift her up to be cleaned. patient patient's states today Thi was brought to the house and she was finally cleaned. patient was sent to the ED for inner right thigh pressure wound to be re-evaluated. patient denies any fever, chills, chest pain, shorntess of breath, foul smelling, pus discharge, or redness. patient states no chest pain, shortness of breath, abdominal pain, headache, dizziness, or complaints. Related Data Home Medications Medication Instructions Recorded Confirmed albuterol sulfate 90 mcg/actuation 2 puff INHALATION Q4-6H PRN 01/23/21 01/23/21 aerosol inhaler (Proventil HFA) apixaban 5 mg tablet (Eliquis) 1 tab PO BID 01/23/21 01/23/21 aspirin 81 mg tablet,delayed 1 tab PO DAILY 01/23/21 01/23/21 release fluticasone propionate 50 1 inh INHALATION BID 01/23/21 01/24/21 mcg/actuation blister powder for inhalation (Flovent Diskus) gabapentin 300 mg capsule 1 cap PO TID 01/23/21 01/23/21 insulin glargine 100 unit/mL (3 80 unit SUBCUT DAILY 01/23/21 01/23/21 mL) subcutaneous pen (Lantus Solostar U-100 Insulin) insulin lispro 100 unit/mL See Protocol SUBCUT BIDAC 01/23/21 01/23/21 subcutaneous solution (Humalog U-100 Insulin) ipratropium 0.5 mg-albuterol 3 mg 1 vial INHALATION Q4-6H PRN 01/23/21 01/23/21 (2.5 mg base)/3 mL nebulization soln lisinopril 5 mg tablet 1 tab PO DAILY 01/23/21 01/23/21 metoprolol tartrate 50 mg tablet 1 tab PO BID 01/23/21 01/23/21 simvastatin 40 mg tablet 1 tab PO BEDTIME 01/23/21 01/23/21 furosemide 20 mg tablet 1 tab PO DAILY 05/04/21 Previous Rx's Medication Instructions Recorded cefuroxime axetil 250 mg tablet 250 mg PO BID 7 Days #14 tab 05/03/21 clotrimazole-betamethasone 1 1 appl TOPICAL BID 14 Days #45 g 05/28/21 %-0.05 % topical cream Allergies Allergy/AdvReac Type Severity Reaction Status Date / Time silver sulfadiazine Allergy Unknown UNK Verified 01/23/21 12:07 [From SILVADENE] Review of Systems Review of Systems: Yes all other systems are reviewed and are negative Constitutional: Constitutional: Reports as per HPI and Reports no additional constitutional complaints Eyes: Eyes: Reports as per HPI and Reports no additional eye complaints ENT: Reports system reviewed and no additional complaints, except as documented and Reports as per HPI Cardiovascular: Cardiovascular: Reports as per HPI and Reports no additional cardiovascular complaints Respiratory: Respiratory: Reports as per HPI and Reports no additional respiratory complaints Gastrointestinal: Gastrointestinal: Reports as per HPI and Reports no additional gastrointestinal complaints Genitourinary: Genitourinary: Reports no additional female genitourinary complaints and Reports as per HPI Musculoskeletal: Musculoskeletal: Reports no additional musculoskeletal complaints and Reports as per HPI Integumentary/Breasts: Skin/Breast: Reports system reviewed and no additional complaints, except as docu and Reports as per HPI Comments: Right inner inner thigh pressure wound Neurologic: Reports system reviewed and no additional complaints, except as documented and Reports as per HPI Psychiatric: Psychiatric: Reports no additional psychiatric complaints and Reports as per HPI COUNTS INCLUDE 234 BEDS AT THE [facility] Past Medical History Medical History Aortic stenosis Chronic indwelling Molina catheter Chronic UTI Congestive heart failure COPD (chronic obstructive pulmonary disease) Diabetes Glaucoma H/O: CVA (cerebrovascular accident) Hypertension Obesity Osteoarthritis Paroxysmal atrial fibrillation Severe sepsis Surgical History H/O adenoidectomy H/O enucleation of left eyeball History of tonsillectomy Social History Social History Household Members: Children and Caregiver Housing: Apartment Do you presently have visiting nurse or other home services: No Unable to assess alcohol history related to: Unknown Alcohol intake: never Patient Tobacco Use Status: Never used Tobacco Second Hand Smoke Exposure: No Advance Directives: Yes Advance Directives on File: Yes Advance Directives Date on File: 07/09/20 service: No Current occupational status: disabled Physical Exam Vital Signs: Vital Signs: Last Vital Signs Temp 97.8 F 05/28/21 11:15 Pulse 52 05/28/21 11:15 Resp 18 05/28/21 11:15 BP 184/87 H 05/28/21 11:15 Pulse Ox 96 05/28/21 11:15 Body Mass Index 51.2 Const: General: cooperative, healthy appearing, comfortable, no acute distress, well developed, alert, awake and Physically active Orientation/consciousness: patient oriented x3 HENMT: Head: Yes normal to inspection, Yes No palpable skull fracture present, Yes normocephalic and Yes atraumatic Eyes: General: appearance normal, both eyes and all related structures Neck: Neck: Yes normal visual inspection, Yes full ROM, Yes no lymphadenopathy, Yes no meningeal signs, Yes trachea midline, Yes supple and No tender Chest: Chest palpation & inspection: normal inspection of the chest and normal palpation of entire chest wall Resp: Effort & Inspection: normal respiratory effort and able to speak in complete sentences Cardio: Jugular venous distension: no JVD Heart sounds: S1 normal heart sound present and S2 normal heart sound present GI: Inspection: Yes normal to inspection and No abdominal wall ecchymosis Palpation (GI): Soft to palpation, not firm, nontender, no guarding and not rigid : General: No CVA tenderness and Yes no CVA tenderness Back/Spine/Pelvis: Back: no CVA tenderness, No CVA tenderness and No back tenderness Skin: Other: Patient was completely disrobed. Patient right medial inner thigh near groin positive for tinea tomer rash that is negative for any open wounds/pus discharge/foul odor/ erythema. Right lateral thigh has old skin tear/wound that is very superficial and negative for any pus discharge, foul odor, or erythema. Left thigh is totally normal. Sacrum/buttocks negative for any pressure ulcers. General skin exam: elasticity normal Neuro: General: patient oriented x3, gait normal, no meningeal signs and CN's II-XI intact bilaterally Cranial nerves: Yes CN's II-XII intact bilaterally Extrem: General: Yes normal to inspection and Yes full ROM Psych: Appearance: grossly normal, well kempt and not disheveled Course Course Course Narrative: No other intervention needed at this time. patient has no pressure wound. patient will be dsicharged wt fungal cream. patient will be sent back to office. Reevaluation(s) Reevaluation #1: Lotrisel will be sent to pharmacy for discharge. BP elevated, and patient has pmh of HTN. Patient is asymptomatic. patient has no neuro deficits. no further intervention indicated. Time: 12:09 Reevaluation #2: FS 358. Lipsro 8 untis subq ordered Time: 14:06 MDM - Skin/Abscess/Foreign Bdy Lab Data Labs: Lab Results 05/28/21 Range/Units 13:31 POC Glucose 358 H* (60-115) mg/dL Discharge Plan Discharge Clinical Impression: Tinea cruris Patient Disposition: Home, Self-Care Instructions: Skin Yeast Infection (ED) Additional Instructions: You have a skin yeast infection that would need cream for treatment. Return to the ED for any fever, chills, nausea, emesis, foul odor from wound, erythema, pus discharge, or any other concerning symptoms. Please follow up with PCP Prescriptions: New clotrimazole-betamethasone 1-0.05 % cream 1 appl topical BID 14 Days Qty: 45 RF: 0 No Action Flovent Diskus 50 mcg/actuation blister with device 1 inh inhalation BID RF: 0 ipratropium-albuterol 0.5 mg-3 mg(2.5 mg base)/3 mL solution for nebulization 1 vial inhalation Q4-6H PRN (Reason: Wheezing) RF: 0 aspirin 81 mg tablet,delayed release (DR/EC) 1 tab PO DAILY RF: 0 simvastatin 40 mg tablet 1 tab PO BEDTIME RF: 0 metoprolol tartrate 50 mg tablet 1 tab PO BID RF: 0 gabapentin 300 mg capsule 1 cap PO TID RF: 0 lisinopril 5 mg tablet 1 tab PO DAILY RF: 0 insulin lispro [Humalog U-100 Insulin] 100 unit/mL solution See Protocol sliding scale dose subcut BIDAC RF: 0 albuterol sulfate [Proventil HFA] 90 mcg/actuation HFA aerosol inhaler 2 puff inhalation Q4-6H PRN (Reason: Wheezing) RF: 0 Lantus Solostar U-100 Insulin 100 unit/mL (3 mL) insulin pen 80 unit subcut DAILY RF: 0 Eliquis 5 mg tablet 1 tab PO BID RF: 0 cefuroxime axetil 250 mg tablet 250 mg PO BID 7 Days Qty: 14 RF: 0 furosemide 20 mg tablet 1 tab PO DAILY RF: 0 Interventions: ED Discharge Assessment Last Done: 05/28/21 14:48 Discharge Date/Time: 05/28/21 14:49 Print Language: Somali
[2021-05-28 11:15] VITALS: BP 184/87; PULSE 52; RESP 18; TEMP 36.6; O2SAT 96; BMI 51.2
--- NOTE | 2021-05-28 11:17 | PC.NURSE ---
SEE PROVIDER NOTE FOR IMMAGES OF WOUNDS, PT WITH YEAST LOOKING RASH UPPER THIGHT/GROIN AREA LEFT HIP 1/2 INCH HEALING SKIN TEAR OLD WOUNDS ON GREAT AND BABY TOE PT SEEN IN WOUND CARE FOR THOSE WOUNDS
[2021-05-28 13:35] LABS: Glucose, Whole Blood 358 mg/dL (60-115)
[2021-05-28] MEDS: Insulin Lispro 100 UNIT/ML 3 ML VIAL 8 UNIT SUBCUT (14:43)
== END 2021-05-28 14:49 | disposition home or self-care (01) ==
PROVIDERS: Emergency Provider Emergency Medicine; PCP Family Medicine
DX: B35.6 Tinea cruris (principal); E11.9 Type 2 diabetes mellitus without complications; I10 Essential (primary) hypertension; I48.0 Paroxysmal atrial fibrillation; E66.01 Morbid (severe) obesity due to excess calories; Z86.73 Personal history of transient ischemic attack (TIA), and cerebral infarction without residual deficits; Z79.4 Long term (current) use of insulin; Z79.899 Other long term (current) drug therapy; Z79.02 Long term (current) use of antithrombotics/antiplatelets
CPT/HCPCS: 82947; 99283

== ENCOUNTER 2021-06-05 13:48 | Emergency (ER) | payer MEDICARE, MEDICAID, SELFPAY ==
--- NOTE | ~2021-06-05 | XR_ITS ---
EXAMINATION: XR FOOT, LEFT CLINICAL INFORMATION: Toe bruised COMPARISON: None TECHNIQUE: AP, lateral, and oblique views of the left foot. FINDINGS: Marked osteopenia. Diffuse subcutaneous edema. Vascular calcifications. Evaluation is limited due to patient positioning. No acute fracture or dislocation is evident. No radiopaque foreign body. Moderate 1st MTP joint osteoarthritis and degenerative changes throughout the midfoot. XR/XR foot LT min 3V IMPRESSION: Limited study due to patient positioning and marked osteopenia. No obvious fracture or malalignment.
--- NOTE | 2021-06-05 14:01 | ED.EXTPRO ---
HPI - Extremity Problem General Stated complaint: ischemic toe Time Seen by Provider: 06/05/21 14:00 Source: patient and old records reviewed Mode of arrival: ambulatory Limitations: no limitations History of Present Illness Complaint: other (bruise to L 2nd toe) Onset (ago): day(s) (noted it today) Location: left and lower extremity (2nd toe) Quality: dull Radiation: none Relieving factors: nothing Exacerbating factors: nothing Associated symptoms: other (notes a dark bruised area) Context: other (hx of trauma recently but the other toes healed) Related Data Home Medications Medication Instructions Recorded Confirmed albuterol sulfate 90 mcg/actuation 2 puff INHALATION Q4-6H PRN 01/23/21 01/23/21 aerosol inhaler (Proventil HFA) apixaban 5 mg tablet (Eliquis) 1 tab PO BID 01/23/21 01/23/21 aspirin 81 mg tablet,delayed 1 tab PO DAILY 01/23/21 01/23/21 release fluticasone propionate 50 1 inh INHALATION BID 01/23/21 01/24/21 mcg/actuation blister powder for inhalation (Flovent Diskus) gabapentin 300 mg capsule 1 cap PO TID 01/23/21 01/23/21 insulin glargine 100 unit/mL (3 80 unit SUBCUT DAILY 01/23/21 01/23/21 mL) subcutaneous pen (Lantus Solostar U-100 Insulin) insulin lispro 100 unit/mL See Protocol SUBCUT BIDAC 01/23/21 01/23/21 subcutaneous solution (Humalog U-100 Insulin) ipratropium 0.5 mg-albuterol 3 mg 1 vial INHALATION Q4-6H PRN 01/23/21 01/23/21 (2.5 mg base)/3 mL nebulization soln lisinopril 5 mg tablet 1 tab PO DAILY 01/23/21 01/23/21 metoprolol tartrate 50 mg tablet 1 tab PO BID 01/23/21 01/23/21 simvastatin 40 mg tablet 1 tab PO BEDTIME 01/23/21 01/23/21 furosemide 20 mg tablet 1 tab PO DAILY 05/04/21 Previous Rx's Medication Instructions Recorded cefuroxime axetil 250 mg tablet 250 mg PO BID 7 Days #14 tab 05/03/21 clotrimazole-betamethasone 1 1 appl TOPICAL BID 14 Days #45 g 05/28/21 %-0.05 % topical cream Allergies Allergy/AdvReac Type Severity Reaction Status Date / Time silver sulfadiazine Allergy Unknown UNK Verified 01/23/21 12:07 [From TRINY] Review of Systems Review of Systems: Constitutional : No Fever, No Chills ENT/Mouth : No sore throat, No Rhinorrhea Eyes: No Eye Pain, No Swelling, No Redness Cardiovascular : No Chest Pain, No SOB Respiratory : No Cough, No Sputum Gastrointestinal : No Nausea, No Vomiting, No Diarrhea, No abdominal Pain Genitourinary : No Dysuria, No Hematuria Musculoskeletal : No joint pain, No Myalgias, No Joint Swelling Skin : pos Skin Lesions, no skin rash Neuro : No Weakness, No Numbness, No Headache PMFSH Past Medical History Attestation statement: The following information was validated with the patient. Source: old records reviewed Medical History Aortic stenosis Chronic indwelling Molina catheter Chronic UTI Congestive heart failure COPD (chronic obstructive pulmonary disease) Diabetes Glaucoma H/O: CVA (cerebrovascular accident) Hypertension Obesity Osteoarthritis Paroxysmal atrial fibrillation Severe sepsis Surgical History H/O adenoidectomy H/O enucleation of left eyeball History of tonsillectomy Social History Social History Household Members: Children and Caregiver Housing: Apartment Do you presently have visiting nurse or other home services: No Unable to assess alcohol history related to: Unknown Alcohol intake: never Patient Tobacco Use Status: Never used Tobacco Second Hand Smoke Exposure: No Use of substances other than those prescribed or required for medical reasons: No Advance Directives: Yes Advance Directives on File: Yes Advance Directives Date on File: 07/09/20 service: No Current occupational status: disabled Physical Exam Vital Signs: Appearance: Alert. Oriented X3. No acute distress. Eyes: Pupils equal, round and reactive to light. ENT: Pharynx normal. Neck: Normal inspection. Neck supple. CVS: Normal heart rate and rhythm. Pulses normal. Respiratory: No respiratory distress. Breath sounds normal. Abdomen: Soft and non-tender. Obese Skin: Skin warm and dry. Normal skin color. Normal skin turgor. Extremities: mild 1+ pitting LE edema - on L 2nd toe dorsum of the toe there is a small fluctuant area of blood consistent with a hemorraghic blister - she has bounding DP/PT pulses Neuro: Oriented X 3. No motor deficit. No sensory deficit. MDM - Extremity (Nontraumatic) MDM Narrative Medical decision making narrative: 70 yo female with multiple medical problems including CM, CVA, on eliquis sent in given concerns for ?ischemic toe though this is not ischemic she has bounding pulses and the area in question is actually a hemorrhagic fluid filled blister and not a sign of emboli - will obtain xray for trauma Discharge Plan Discharge Clinical Impression: Blood blister Patient Disposition: Home, Self-Care Instructions: Blister (ED) Additional Instructions: return to ED for any worsening symptoms or concerns keep area covered and protected do not poke leave it alone it will absorb slowly Prescriptions: No Action Flovent Diskus 50 mcg/actuation blister with device 1 inh inhalation BID RF: 0 ipratropium-albuterol 0.5 mg-3 mg(2.5 mg base)/3 mL solution for nebulization 1 vial inhalation Q4-6H PRN (Reason: Wheezing) RF: 0 aspirin 81 mg tablet,delayed release (DR/EC) 1 tab PO DAILY RF: 0 simvastatin 40 mg tablet 1 tab PO BEDTIME RF: 0 metoprolol tartrate 50 mg tablet 1 tab PO BID RF: 0 gabapentin 300 mg capsule 1 cap PO TID RF: 0 lisinopril 5 mg tablet 1 tab PO DAILY RF: 0 insulin lispro [Humalog U-100 Insulin] 100 unit/mL solution See Protocol sliding scale dose subcut BIDAC RF: 0 albuterol sulfate [Proventil HFA] 90 mcg/actuation HFA aerosol inhaler 2 puff inhalation Q4-6H PRN (Reason: Wheezing) RF: 0 Lantus Solostar U-100 Insulin 100 unit/mL (3 mL) insulin pen 80 unit subcut DAILY RF: 0 Eliquis 5 mg tablet 1 tab PO BID RF: 0 cefuroxime axetil 250 mg tablet 250 mg PO BID 7 Days Qty: 14 RF: 0 furosemide 20 mg tablet 1 tab PO DAILY RF: 0 clotrimazole-betamethasone 1-0.05 % cream 1 appl topical BID 14 Days Qty: 45 RF: 0
[2021-06-05 14:36] VITALS: BP 124/60; BP 134/76; PULSE 76; RESP 17; TEMP 36.3; O2SAT 95; O2SAT 99; BMI 48.4
--- NOTE | 2021-06-05 16:59 | PC.NURSE ---
PT HAD A LARGE BM PRIOR TO DEPARTURE REPORT GIVEN TO EMS FOR DISCHARGE HOME
== END 2021-06-05 17:01 | disposition home or self-care (01) ==
PROVIDERS: Emergency Provider Emergency Medicine; PCP Family Medicine
DX: S90.425A Blister (nonthermal), left lesser toe(s), initial encounter (principal); I11.0 Hypertensive heart disease with heart failure; I50.9 Heart failure, unspecified; E11.9 Type 2 diabetes mellitus without complications; Z86.73 Personal history of transient ischemic attack (TIA), and cerebral infarction without residual deficits; Z79.01 Long term (current) use of anticoagulants; X58.XXXA Exposure to other specified factors, initial encounter; Y93.9 Activity, unspecified; Y92.9 Unspecified place or not applicable; Y99.9 Unspecified external cause status
CPT/HCPCS: 73630; 99283

== ENCOUNTER 2021-06-11 14:38 | Emergency (ER) | payer MEDICARE, MEDICAID, SELFPAY ==
[2021-06-11 14:55] VITALS: BP 150/75; BP 158/71; PULSE 74; PULSE 75; RESP 18; TEMP 36.7; O2SAT 94; O2SAT 96; BMI 48.7
--- NOTE | 2021-06-11 15:50 | ED_ITS ---
HPI - General Adult General Chief complaint: General Medical Stated complaint: rash Time Seen by Provider: 06/11/21 15:50 Source: patient Mode of arrival: EMS Limitations: no limitations History of Present Illness HPI narrative: Patient lives alone, she had slight trauma to her left leg, now with swelling and erythema. Patient denies fever or pain. Visiting nurse came today and noticed the infection so they sent her in. Onset (ago): day(s) Location: left and lower extremity Severity: mild Relieving factors: none Exacerbating factors: none Associated symptoms: denies other symptoms Related Data Home Medications Medication Instructions Recorded Confirmed albuterol sulfate 90 mcg/actuation 2 puff INHALATION Q4-6H PRN 01/23/21 01/23/21 aerosol inhaler (Proventil HFA) apixaban 5 mg tablet (Eliquis) 1 tab PO BID 01/23/21 01/23/21 aspirin 81 mg tablet,delayed 1 tab PO DAILY 01/23/21 01/23/21 release fluticasone propionate 50 1 inh INHALATION BID 01/23/21 01/24/21 mcg/actuation blister powder for inhalation (Flovent Diskus) gabapentin 300 mg capsule 1 cap PO TID 01/23/21 01/23/21 insulin glargine 100 unit/mL (3 80 unit SUBCUT DAILY 01/23/21 01/23/21 mL) subcutaneous pen (Lantus Solostar U-100 Insulin) insulin lispro 100 unit/mL See Protocol SUBCUT BIDAC 01/23/21 01/23/21 subcutaneous solution (Humalog U-100 Insulin) ipratropium 0.5 mg-albuterol 3 mg 1 vial INHALATION Q4-6H PRN 01/23/21 01/23/21 (2.5 mg base)/3 mL nebulization soln lisinopril 5 mg tablet 1 tab PO DAILY 01/23/21 01/23/21 metoprolol tartrate 50 mg tablet 1 tab PO BID 01/23/21 01/23/21 simvastatin 40 mg tablet 1 tab PO BEDTIME 01/23/21 01/23/21 furosemide 20 mg tablet 1 tab PO DAILY 05/04/21 Previous Rx's Medication Instructions Recorded cefuroxime axetil 250 mg tablet 250 mg PO BID 7 Days #14 tab 05/03/21 clotrimazole-betamethasone 1 1 appl TOPICAL BID 14 Days #45 g 05/28/21 %-0.05 % topical cream cephalexin 500 mg capsule 500 mg PO Q6H 10 Days #40 cap 06/11/21 Allergies Allergy/AdvReac Type Severity Reaction Status Date / Time silver sulfadiazine Allergy Unknown UNK Verified 06/11/21 14:55 [From SILVADENE] Review of Systems Constitutional: Constitutional: Reports no additional constitutional complaints Eyes: Eyes: Reports no additional eye complaints ENT: Denies dizziness Cardiovascular: Cardiovascular: Reports no additional cardiovascular complaints Respiratory: Respiratory: Reports as per HPI Gastrointestinal: Gastrointestinal: Reports no additional gastrointestinal complaints Genitourinary: Genitourinary: Reports no additional female genitourinary compl aints Musculoskeletal: Musculoskeletal: Reports no additional musculoskeletal complaints Integumentary/Breasts: Skin/Breast: Denies rash Neurologic: Reports system reviewed and no additional complaints, except as documented, Denies dizziness and Denies Sensory deficit (Neuro) Psychiatric: Psychiatric: Denies anxiety PMFSH Past Medical History Medical History Aortic stenosis Chronic indwelling Molina catheter Chronic UTI Congestive heart failure COPD (chronic obstructive pulmonary disease) Diabetes Glaucoma H/O: CVA (cerebrovascular accident) Hypertension Obesity Osteoarthritis Paroxysmal atrial fibrillation Severe sepsis Surgical History H/O adenoidectomy H/O enucleation of left eyeball History of tonsillectomy Social History Social History Household Members: Children and Caregiver Housing: Apartment Do you presently have visiting nurse or other home services: No Unable to assess alcohol history related to: Unknown Alcohol intake: never Patient Tobacco Use Status: Never used Tobacco Second Hand Smoke Exposure: No Advance Directives: Yes Advance Directives on File: Yes Advance Directives Date on File: 07/09/20 service: No Current occupational status: disabled Physical Exam Vital Signs: Vital Signs: Last Vital Signs Temp 98.1 F 06/11/21 14:55 Pulse 75 06/11/21 14:55 Resp 18 06/11/21 14:55 BP 158/71 H 06/11/21 14:55 Pulse Ox 94 06/11/21 14:55 BMI result Body Mass Index 48.7 Neuro: Sensory Exam: No Sensory deficit (Neuro) Course Reevaluation(s) Reevaluation #1: Patient with cellulitis and hyperglycemia will give IV abx and fluids and insulin. Will bring down sugar and likely dc on oral abx. Time: 16:48 Medical Decision Making Lab Data Result diagrams: 06/11/21 16:19 12 16:19 Labs: Lab Results 06/11/21 06/11/21 Range/Units 16:09 16:19 WBC 8.1 (4.8-10.8) X10*3/uL RBC 5.16 (4.20-5.50) X10*6/uL Hgb 14.4 (12.0-16.0) g/dl Hct 45.4 (37.0-47.0) % MCV 88.0 (80.0-98.0) fL MCH 27.9 (27.0-33.0) pg MCHC 31.7 (31.0-35.0) g/dl RDW 14.6 (11.0-16.0) % Plt Count 162 (160-400) X10*3/uL MPV 12.0 (9.4-12.3) fL Immature Gran % (Auto) 0.2 (0.0-0.4) % Neut % (Auto) 74.1 H (45-73) % Lymph % (Auto) 14.1 L (20-40) % [place] % (Auto) 8.3 (2-11) % Eos % (Auto) 2.9 (0-4) % Baso % (Auto) 0.4 (0-2) % Lymph # (Auto) 1.1 L (1.2-4.9) X10*3/uL [place] # (Auto) 0.7 (0.1-1.2) X10*3/uL Eos # (Auto) 0.2 (0.0-0.4) X10*3/uL Baso # (Auto) 0.0 (0.0-0.2) X10*3/uL Abs Immat Gran (auto) 0.02 (0.00-0.03) X10*3/uL Absolute Neuts (auto) 6.0 (2.0-8.3) x10*3/uL Absolute Nucleated RBC 0.000 (0.0-0.012) X10*3/uL Nucleated RBC % (auto) 0.0 (0.0-0.2) /100WBC POC Glucose 400 H* (60-115) mg/dL Discharge Plan Discharge Clinical Impression: Acute hyperglycemia Cellulitis Qualifiers: Site of cellulitis: extremity Site of cellulitis of extremity: lower extremity Laterality: left Qualified Code(s): L03.116 - Cellulitis of left lower limb Patient Disposition: Still a Patient Prescriptions: New cephalexin 500 mg capsule 500 mg PO Q6H 10 Days Qty: 40 RF: 0 No Action Flovent Diskus 50 mcg/actuation blister with device 1 inh inhalation BID RF: 0 ipratropium-albuterol 0.5 mg-3 mg(2.5 mg base)/3 mL solution for nebulization 1 vial inhalation Q4-6H PRN (Reason: Wheezing) RF: 0 aspirin 81 mg tablet,delayed release (DR/EC) 1 tab PO DAILY RF: 0 simvastatin 40 mg tablet 1 tab PO BEDTIME RF: 0 metoprolol tartrate 50 mg tablet 1 tab PO BID RF: 0 gabapentin 300 mg capsule 1 cap PO TID RF: 0 lisinopril 5 mg tablet 1 tab PO DAILY RF: 0 insulin lispro [Humalog U-100 Insulin] 100 unit/mL solution See Protocol sliding scale dose subcut BIDAC RF: 0 albuterol sulfate [Proventil HFA] 90 mcg/actuation HFA aerosol inhaler 2 puff inhalation Q4-6H PRN (Reason: Wheezing) RF: 0 Lantus Solostar U-100 Insulin 100 unit/mL (3 mL) insulin pen 80 unit subcut DAILY RF: 0 Eliquis 5 mg tablet 1 tab PO BID RF: 0 cefuroxime axetil 250 mg tablet 250 mg PO BID 7 Days Qty: 14 RF: 0 furosemide 20 mg tablet 1 tab PO DAILY RF: 0 clotrimazole-betamethasone 1-0.05 % cream 1 appl topical BID 14 Days Qty: 45 RF: 0
[2021-06-11 16:19] LABS: Glucose, Whole Blood 400 mg/dL (60-115)
[2021-06-11 16:21] LABS: MANUAL DIFF FLAG NO
[2021-06-11] MEDS: ceFAZolin Sodium 3 GM in 0.9 % Sodium Chloride 100 ML IV (16:23)
[2021-06-11 16:26] LABS: Basophils Percent Auto 0.4 % (0-2); Eosinophils Absolute Auto 0.2 X10*3/uL (0.0-0.4); Eosinophils Percent Auto 2.9 % (0-4); Hematocrit 45.4 % (37.0-47.0); Hemoglobin 14.4 g/dl (12.0-16.0); Imm Gran Abs Auto 0.02 X10*3/uL (0.00-0.03); Imm Gran Pct Auto 0.2 % (0.0-0.4); Lymphocytes Absolute Auto 1.1 X10*3/uL (1.2-4.9); Lymphocytes Percent Auto 14.1 % (20-40); Mean Corpuscular HGB Conc 31.7 g/dl (31.0-35.0); Mean Corpuscular Hemoglobin 27.9 pg (27.0-33.0); Monocytes Absolute Auto 0.7 X10*3/uL (0.1-1.2); Monocytes Percent Auto 8.3 % (2-11); Neutrophils Percent Auto 74.1 % (45-73); Platelet Count 162 X10*3/uL (160-400); Red Blood Count 5.16 X10*6/uL (4.20-5.50); Red Cell Distribution Width 14.6 % (11.0-16.0); White Blood Count 8.1 X10*3/uL (4.8-10.8)
[2021-06-11] MEDS: 0.9 % Sodium Chloride 1,000 ML 999 ML IVCONT ×2 (16:51→18:35)
[2021-06-11] MEDS: Insulin Lispro 100 UNIT/ML 3 ML VIAL 10 UNIT SUBCUT (16:51)
[2021-06-11 17:04] LABS: Anion Gap 14 (12-20); Blood Urea Nitrogen 25 mg/dL (9-16); Calcium 9.3 mg/dL (8.4-10.2); Carbon Dioxide 31 mmol/L (22-29); Chloride 95 mmol/L (96-108); Creatinine Clr Calc Pharmacy 72.5; Estimated Glomerular Filt Rate 59; Glucose Random 448 mg/dL (60-115); Potassium 4.1 mmol/L (3.3-5.1); Sodium 136 mmol/L (135-145)
[2021-06-11 19:00] VITALS: BP 131/58; PULSE 79; RESP 16; TEMP 36.9; O2SAT 96
[2021-06-11 19:05] LABS: Glucose, Whole Blood 293 mg/dL (60-115)
[2021-06-11 22:00] VITALS: RESP 16
== END 2021-06-11 23:42 | disposition home or self-care (01) ==
PROVIDERS: Emergency Provider Emergency Medicine; PCP Family Medicine
DX: L03.116 Cellulitis of left lower limb (principal); E11.65 Type 2 diabetes mellitus with hyperglycemia; I11.0 Hypertensive heart disease with heart failure; I50.9 Heart failure, unspecified; I48.0 Paroxysmal atrial fibrillation; J44.9 Chronic obstructive pulmonary disease, unspecified; Z86.73 Personal history of transient ischemic attack (TIA), and cerebral infarction without residual deficits
CPT/HCPCS: 36415; 80048; 82947; 85025; 99284; J0690

== ENCOUNTER 2021-06-13 12:48 | Inpatient (IN) | payer MEDICARE, MEDICAID, SELFPAY ==
--- NOTE | ~2021-06-13 | CT_ITS ---
EXAMINATION: CT CHEST WITH CONTRAST CLINICAL INFORMATION: Question right upper lobe mass COMPARISON: Chest radiograph performed earlier today and CT chest 09/09/[address] neck 06/29/2020 TECHNIQUE: Multidetector volumetric CT imaging of the chest was obtained after the administration of 50 mL of Omnipaque 350 intravenous contrast without immediate adverse reactions. Axial MIP volume rendering provided. Sagittal and coronal reformatted images were obtained. Marked respiratory artifact degrades the images. This CT examination was performed using dose optimization techniques as appropriate, variously including the following: *Automated exposure control *Adjustment of mA and/or kV according to patient size (this includes techniques or standardized protocols for targeted exams where dose is matched to indication/reason for exam; i.e. extremities or head) *Use of iterative reconstruction technique DLP: 381 mGy-cm FINDINGS: LUNGS: Marked respiratory artifact degrades imaging. The lungs are grossly clear with no evidence of inflammation or worrisome lung masses or nodules. The findings seen on the chest radiograph has no correlate on the CT scan. 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 Mass appears about the same size as previously noted. It mildly compresses the trachea pushing it to the left. Please note that this was biopsied on 01/02/2018. Please correlate with pathologic report. Heart size normal. Coronary artery calcifications are present. Aortic valvular and mitral annulus calcification noted. PLEURA: There is no pleural effusion. No pleural mass or thickening. AXILLA: No lymphadenopathy. UPPER ABDOMEN: Unremarkable OSSEOUS STRUCTURES: Severe degenerative changes again seen in both shoulders as well as in the visualized spine. CT/CT chest w con IMPRESSION: The questionable mass seen on chest radiograph performed earlier today shows no evidence of pathologic mass on the CT scan. Fleischner guidelines were followed.
--- NOTE | ~2021-06-13 | XR_ITS ---
EXAMINATION: XR CHEST CLINICAL INFORMATION: Cough COMPARISON: January 23, 2021 and studies dating back to September 01, 2017 TECHNIQUE: AP portable view of the chest was obtained. FINDINGS: There is significant degenerative change of the right shoulder with remodeling of bone and what appears be subluxation of the humeral head. Calcified granulomas are seen bilaterally. The heart is enlarged. There is some mild prominence of vasculature however no definite interstitial or airspace edema is appreciated. No pneumothorax or pleural effusion. There is question of an irregular marginated 1.7 cm density within the upper right lung for which CT of the chest would be of help in further evaluation XR/XR chest 1V IMPRESSION: Question right upper lobe mass for which further evaluation with CT of the chest could be more definitive. Old granulomatous disease. Cardiomegaly without pulmonary edema.
[2021-06-13 13:18] VITALS: BP 137/66; BP 140/84; PULSE 67; PULSE 72; RESP 20; TEMP 37.3; O2SAT 91; O2SAT 96; BMI 45.1
[2021-06-13 13:29] LABS: Glucose, Whole Blood 350 mg/dL (60-115)
--- NOTE | 2021-06-13 14:38 | ECG_ITS ---
Test Reason : general medical Blood Pressure : / mmHG Vent. Rate : 068 BPM Atrial Rate : 068 BPM P-R Int : 218 ms QRS Dur : 098 ms QT Int : 420 ms P-R-T Axes : 035 -02 071 degrees QTc Int : 446 ms Sinus rhythm with 1st degree A-V block Minimal voltage criteria for LVH, may be normal variant ( [place] product ) Abnormal ECG When compared with ECG of 23-JAN-2021 13:01, No significant changes seen Referred By: Fabien Ha Electronically Signed By:oTmas Doll
--- NOTE | 2021-06-13 14:42 | ED_ITS ---
HPI - General Adult General Chief complaint: Recheck/Abnormal Lab/Rx Stated complaint: HIGH BS W/BLURRED VISION AND PIEDRA PER EMS Time Seen by Provider: 06/13/21 14:25 Source: patient Mode of arrival: EMS Limitations: no limitations History of Present Illness HPI narrative: this is 70 yo female presented by ambulance because elevated blood sugar,she was seen here 06/[address] Ulloa and diagnosed with cellulitis left leg started on keflex.States blood sugar has been elevated and she has blurry vision Onset (ago): day(s) (1) Radiation: non-radiation Severity: mild Quality: constant Relieving factors: none Exacerbating factors: none Associated symptoms: denies other symptoms Treatments prior to arrival: none Related Data Home Medications Medication Instructions Recorded Confirmed albuterol sulfate 90 mcg/actuation 2 puff INHALATION Q4-6H PRN 01/23/21 01/23/21 aerosol inhaler (Proventil HFA) apixaban 5 mg tablet (Eliquis) 1 tab PO BID 01/23/21 01/23/21 aspirin 81 mg tablet,delayed 1 tab PO DAILY 01/23/21 01/23/21 release fluticasone propionate 50 1 inh INHALATION BID 01/23/21 01/24/21 mcg/actuation blister powder for inhalation (Flovent Diskus) gabapentin 300 mg capsule 1 cap PO TID 01/23/21 01/23/21 insulin glargine 100 unit/mL (3 80 unit SUBCUT DAILY 01/23/21 01/23/21 mL) subcutaneous pen (Lantus Solostar U-100 Insulin) insulin lispro 100 unit/mL See Protocol SUBCUT BIDAC 01/23/21 01/23/21 subcutaneous solution (Humalog U-100 Insulin) ipratropium 0.5 mg-albuterol 3 mg 1 vial INHALATION Q4-6H PRN 01/23/21 01/23/21 (2.5 mg base)/3 mL nebulization soln lisinopril 5 mg tablet 1 tab PO DAILY 01/23/21 01/23/21 metoprolol tartrate 50 mg tablet 1 tab PO BID 01/23/21 01/23/21 simvastatin 40 mg tablet 1 tab PO BEDTIME 01/23/21 01/23/21 furosemide 20 mg tablet 1 tab PO DAILY 05/04/21 Previous Rx's Medication Instructions Recorded cefuroxime axetil 250 mg tablet 250 mg PO BID 7 Days #14 tab 05/03/21 clotrimazole-betamethasone 1 1 appl TOPICAL BID 14 Days #45 g 05/28/21 %-0.05 % topical cream cephalexin 500 mg capsule 500 mg PO Q6H 10 Days #40 cap 06/11/21 nystatin 100,000 unit/gram topical 1 appl TOPICAL BID #60 g 06/11/21 powder (Nyamyc) Allergies Allergy/AdvReac Type Severity Reaction Status Date / Time silver sulfadiazine Allergy Unknown UNK Verified 06/11/21 14:55 [From [facility]] Review of Systems Constitutional: Constitutional: Reports no additional constitutional complaints Eyes: Eyes: Denies blurry vision, Denies change in vision and Denies decreased night vision Cardiovascular: Cardiovascular: Reports no additional cardiovascular complaints Gastrointestinal: Gastrointestinal: Denies abdominal pain Neurologic: Reports system reviewed and no additional complaints, except as d ocumented [facility] Past Medical History Medical History Aortic stenosis Chronic indwelling Molina catheter Chronic UTI Congestive heart failure COPD (chronic obstructive pulmonary disease) Diabetes Glaucoma H/O: CVA (cerebrovascular accident) Hypertension Obesity Osteoarthritis Paroxysmal atrial fibrillation Severe sepsis Surgical History H/O adenoidectomy H/O enucleation of left eyeball History of tonsillectomy Social History Social History Household Members: Children and Caregiver Housing: Apartment Do you presently have visiting nurse or other home services: No Unable to assess alcohol history related to: Unknown Alcohol intake: never Patient Tobacco Use Status: Never used Tobacco Second Hand Smoke Exposure: No Use of substances other than those prescribed or required for medical reasons: No Advance Directives: Yes Advance Directives on File: Yes Advance Directives Date on File: 07/09/20 service: No Current occupational status: disabled Physical Exam Vital Signs: Vital Signs: Last Vital Signs Temp 98.8 F 06/13/21 15:14 Pulse 64 06/13/21 15:14 Resp 18 06/13/21 15:14 BP 149/75 H 06/13/21 15:14 Pulse Ox 97 06/13/21 15:14 BMI result Body Mass Index 45.1 Const: General: cooperative Nutritional Appearance: well nourished HENMT: Head: Yes normal to inspection Face and sinus: Yes normal facial exam Mouth: Normal oral and palatal mucosa present Neck: Neck: Yes normal visual inspection and Yes full ROM Chest: Chest palpation & inspection: normal inspection of the chest Resp: Effort & Inspection: normal respiratory effort Auscultation: clear to auscultation bilaterally Cardio: Jugular venous distension: no JVD Rate: regular rate Rhythm: regular rhythm GI: Inspection: Yes normal to inspection Palpation (GI): Soft to palpation Extrem: Other: redness present in the left leg,anterior aspect Course Reevaluation(s) Reevaluation #1: Signed out to nelia Carbone to be repeated,blood sugar to be recheck Medical Decision Making MDM Narrative Medical decision making narrative: 70 yo female with obesity/diabetes present with elevate blood sugar and cellulitis left leg will get labs and will reassest Lab Data Result diagrams: 06/13/21 15:02 06/13/21 15:02 Labs: Lab Results 06/13/21 06/13/21 06/13/21 Range/Units 13:26 15:02 15:02 WBC 8.3 (4.8-10.8) X10*3/uL RBC 4.84 (4.20-5.50) X10*6/uL Hgb 13.6 (12.0-16.0) g/dl Hct 42.3 (37.0-47.0) % MCV 87.4 (80.0-98.0) fL MCH 28.1 (27.0-33.0) pg MCHC 32.2 (31.0-35.0) g/dl RDW 14.8 (11.0-16.0) % Plt Count 156 L (160-400) X10*3/uL MPV 12.3 (9.4-12.3) fL Immature Gran % (Auto) 0.2 (0.0-0.4) % Neut % (Auto) 70.5 (45-73) % Lymph % (Auto) 17.1 L (20-40) % Davie % (Auto) 9.4 (2-11) % Eos % (Auto) 2.6 (0-4) % Baso % (Auto) 0.2 (0-2) % Lymph # (Auto) 1.4 (1.2-4.9) X10*3/uL Davie # (Auto) 0.8 (0.1-1.2) X10*3/uL Eos # (Auto) 0.2 (0.0-0.4) X10*3/uL Baso # (Auto) 0.0 (0.0-0.2) X10*3/uL Abs Immat Gran (auto) 0.02 (0.00-0.03) X10*3/uL Absolute Neuts (auto) 5.9 (2.0-8.3) x10*3/uL Absolute Nucleated RBC 0.000 (0.0-0.012) X10*3/uL Nucleated RBC % (auto) 0.0 (0.0-0.2) /100WBC Sodium 136 (135-145) mmol/L Potassium 4.4 (3.3-5.1) mmol/L Chloride 95 L (96-108) mmol/L Carbon Dioxide 32 H (22-29) mmol/L Anion Gap 13 (12-20) BUN 15 (9-16) mg/dL Creatinine 0.71 (0.5-1.4) mg/dL Estim Creat Clear Calc 101.9 Estimated GFR > 60 POC Glucose 350 H* (60-115) mg/dL Random Glucose 354 H* (60-115) mg/dL Calcium 8.8 (8.4-10.2) mg/dL Total Bilirubin 0.6 (0.0-1.0) mg/dL AST 19 D (5-31) U/L ALT 13 (0-31) U/L Alkaline Phosphatase 92 (39-117) U/L Troponin I High Sens (<3.5-17.0) ng/L Total Protein 6.2 L (6.5-8.0) g/dL Albumin 3.3 L (3.5-5.0) g/dL Acetone, Qual Negative (Negative) 06/13/21 Range/Units 15:02 WBC (4.8-10.8) X10*3/uL RBC (4.20-5.50) X10*6/uL Hgb (12.0-16.0) g/dl Hct (37.0-47.0) % MCV (80.0-98.0) fL MCH (27.0-33.0) pg MCHC (31.0-35.0) g/dl RDW (11.0-16.0) % Plt Count (160-400) X10*3/uL MPV (9.4-12.3) fL Immature Gran % (Auto) (0.0-0.4) % Neut % (Auto) (45-73) % Lymph % (Auto) (20-40) % Davie % (Auto) (2-11) % Eos % (Auto) (0-4) % Baso % (Auto) (0-2) % Lymph # (Auto) (1.2-4.9) X10*3/uL Davie # (Auto) (0.1-1.2) X10*3/uL Eos # (Auto) (0.0-0.4) X10*3/uL Baso # (Auto) (0.0-0.2) X10*3/uL Abs Immat Gran (auto) (0.00-0.03) X10*3/uL Absolute Neuts (auto) (2.0-8.3) x10*3/uL Absolute Nucleated RBC (0.0-0.012) X10*3/uL Nucleated RBC % (auto) (0.0-0.2) /100WBC Sodium (135-145) mmol/L Potassium (3.3-5.1) mmol/L Chloride (96-108) mmol/L Carbon Dioxide (22-29) mmol/L Anion Gap (12-20) BUN (9-16) mg/dL Creatinine (0.5-1.4) mg/dL Estim Creat Clear Calc Estimated GFR POC Glucose (60-115) mg/dL Random Glucose (60-115) mg/dL Calcium (8.4-10.2) mg/dL Total Bilirubin (0.0-1.0) mg/dL AST (5-31) U/L ALT (0-31) U/L Alkaline Phosphatase (39-117) U/L Troponin I High Sens 39.7 H (<3.5-17.0) ng/L Total Protein (6.5-8.0) g/dL Albumin (3.5-5.0) g/dL Acetone, Qual (Negative) ECG Data Attestation: I personally reviewed and interpreted this ECG as follows: Pacemaker model: NSR 68 no ischemic changes Discharge Plan Discharge Clinical Impression: Hyperglycemia Prescriptions: No Action Flovent Diskus 50 mcg/actuation blister with device 1 inh inhalation BID RF: 0 ipratropium-albuterol 0.5 mg-3 mg(2.5 mg base)/3 mL solution for nebulization 1 vial inhalation Q4-6H PRN (Reason: Wheezing) RF: 0 aspirin 81 mg tablet,delayed release (DR/EC) 1 tab PO DAILY RF: 0 simvastatin 40 mg tablet 1 tab PO BEDTIME RF: 0 metoprolol tartrate 50 mg tablet 1 tab PO BID RF: 0 gabapentin 300 mg capsule 1 cap PO TID RF: 0 lisinopril 5 mg tablet 1 tab PO DAILY RF: 0 insulin lispro [Humalog U-100 Insulin] 100 unit/mL solution See Protocol sliding scale dose subcut BIDAC RF: 0 albuterol sulfate [Proventil HFA] 90 mcg/actuation HFA aerosol inhaler 2 puff inhalation Q4-6H PRN (Reason: Wheezing) RF: 0 Lantus Solostar U-100 Insulin 100 unit/mL (3 mL) insulin pen 80 unit subcut DAILY RF: 0 Eliquis 5 mg tablet 1 tab PO BID RF: 0 cefuroxime axetil 250 mg tablet 250 mg PO BID 7 Days Qty: 14 RF: 0 furosemide 20 mg tablet 1 tab PO DAILY RF: 0 clotrimazole-betamethasone 1-0.05 % cream 1 appl topical BID 14 Days Qty: 45 RF: 0 cephalexin 500 mg capsule 500 mg PO Q6H 10 Days Qty: 40 RF: 0 nystatin [Nyamyc] 100,000 unit/gram powder 1 appl topical BID Qty: 60 RF: 0
--- NOTE | 2021-06-13 15:08 | PC.NURSE ---
pt is alert and oriented, skin pwd, respirations even and unlabored, pt is coming from home, both lower extremities discolored/scabs/ chronic rai in place and draning well but pt's appearance seems very unkept. pt reports having program arranger's that come to her house three times a day to help but sometimes they don't show up or come late
[2021-06-13 15:10] LABS: MANUAL DIFF FLAG NO
[2021-06-13 15:14] VITALS: BP 149/75; PULSE 64; RESP 18; TEMP 37.1; O2SAT 97
[2021-06-13 15:16] LABS: Basophils Percent Auto 0.2 % (0-2); Eosinophils Absolute Auto 0.2 X10*3/uL (0.0-0.4); Eosinophils Percent Auto 2.6 % (0-4); Hematocrit 42.3 % (37.0-47.0); Hemoglobin 13.6 g/dl (12.0-16.0); Imm Gran Abs Auto 0.02 X10*3/uL (0.00-0.03); Imm Gran Pct Auto 0.2 % (0.0-0.4); Lymphocytes Absolute Auto 1.4 X10*3/uL (1.2-4.9); Lymphocytes Percent Auto 17.1 % (20-40); Mean Corpuscular HGB Conc 32.2 g/dl (31.0-35.0); Mean Corpuscular Hemoglobin 28.1 pg (27.0-33.0); Mean Corpuscular Volume 87.4 fL (80.0-98.0); Mean Platelet Volume 12.3 fL (9.4-12.3); Monocytes Absolute Auto 0.8 X10*3/uL (0.1-1.2); Monocytes Percent Auto 9.4 % (2-11); Neutrophils Absolute Auto 5.9 x10*3/uL (2.0-8.3); Neutrophils Percent Auto 70.5 % (45-73); Platelet Count 156 X10*3/uL (160-400); Red Blood Count 4.84 X10*6/uL (4.20-5.50); Red Cell Distribution Width 14.8 % (11.0-16.0); White Blood Count 8.3 X10*3/uL (4.8-10.8)
[2021-06-13 15:33] LABS: Troponin-I High Sensitivity 39.7 ng/L (<3.5-17.0)
[2021-06-13 15:35] LABS: Alanine Aminotransferase 13 U/L (0-31); Albumin Level 3.3 g/dL (3.5-5.0); Alkaline Phosphatase 92 U/L (39-117); Anion Gap 13 (12-20); Aspartate Amino Transferase 19 U/L (5-31); Bilirubin Total 0.6 mg/dL (0.0-1.0); Blood Urea Nitrogen 15 mg/dL (9-16); Calcium 8.8 mg/dL (8.4-10.2); Carbon Dioxide 32 mmol/L (22-29); Chloride 95 mmol/L (96-108); Creatinine Clr Calc Pharmacy 101.9; Estimated Glomerular Filt Rate > 60; Glucose Random 354 mg/dL (60-115); Potassium 4.4 mmol/L (3.3-5.1); Sodium 136 mmol/L (135-145); Total Protein 6.2 g/dL (6.5-8.0)
[2021-06-13 15:39] LABS: Acetone, serum QL Negative (Negative)
[2021-06-13] MEDS: Insulin Lispro 100 UNIT/ML 3 ML VIAL SUBCUT (16:32)
--- NOTE | 2021-06-13 17:47 | ED.GENADULT ---
HPI - General Adult General Chief complaint: Recheck/Abnormal Lab/Rx Stated complaint: HIGH BS W/BLURRED VISION AND PIEDRA PER EMS Time Seen by Provider: 06/13/21 14:25 Source: patient Mode of arrival: EMS Limitations: no limitations History of Present Illness HPI narrative: 70-year-old female who presents emergency department for evaluation of increased glucose and increased pain of her left lower extremity. I assumed care of this patient from my colleague, Dr. Chan 4:30 p.m., not able to placed addendum on his note. The patient states that her glucose has been high for several months but has been worse over the past week. She also states that she has pain in her left lower extremity x1 week. She states that last week, a 1-year-old baby scratched her leg and since then she has had pain, swelling increased redness. She was seen in the emergency department on 06/11/2021 for hyperglycemia and was also noted to have cellulitis of left lower extremity. 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 She states that the swelling and pain is gotten worse. She describes the pain as a constant, sharp, dull pain which is 6/10 at its worst. She denied fever, chills. She states she has had weakness. She denied nausea, vomiting, diarrhea. She does have urinary frequency. She has a chronic indwelling Molina catheter. Quality: constant Relieving factors: none Exacerbating factors: none Associated symptoms: denies other symptoms Treatments prior to arrival: none Related Data Home Medications Medication Instructions Recorded Confirmed albuterol sulfate 90 mcg/actuation 2 puff INHALATION Q4-6H PRN 01/23/21 01/23/21 aerosol inhaler (Proventil HFA) apixaban 5 mg tablet (Eliquis) 1 tab PO BID 01/23/21 01/23/21 aspirin 81 mg tablet,delayed 1 tab PO DAILY 01/23/21 01/23/21 release fluticasone propionate 50 1 inh INHALATION BID 01/23/21 01/24/21 mcg/actuation blister powder for inhalation (Flovent Diskus) gabapentin 300 mg capsule 1 cap PO TID 01/23/21 01/23/21 insulin glargine 100 unit/mL (3 80 unit SUBCUT DAILY 01/23/21 01/23/21 mL) subcutaneous pen (Lantus Solostar U-100 Insulin) insulin lispro 100 unit/mL See Protocol SUBCUT BIDAC 01/23/21 01/23/21 subcutaneous solution (Humalog U-100 Insulin) ipratropium 0.5 mg-albuterol 3 mg 1 vial INHALATION Q4-6H PRN 01/23/21 01/23/21 (2.5 mg base)/3 mL nebulization soln lisinopril 5 mg tablet 1 tab PO DAILY 01/23/21 01/23/21 metoprolol tartrate 50 mg tablet 1 tab PO BID 01/23/21 01/23/21 simvastatin 40 mg tablet 1 tab PO BEDTIME 01/23/21 01/23/21 furosemide 20 mg tablet 1 tab PO DAILY 05/04/21 Previous Rx's Medication Instructions Recorded cefuroxime axetil 250 mg tablet 250 mg PO BID 7 Days #14 tab 05/03/21 clotrimazole-betamethasone 1 1 appl TOPICAL BID 14 Days #45 g 05/28/21 %-0.05 % topical cream cephalexin 500 mg capsule 500 mg PO Q6H 10 Days #40 cap 06/11/21 nystatin 100,000 unit/gram topical 1 appl TOPICAL BID #60 g 06/11/21 powder ([facility]) Allergies Allergy/AdvReac Type Severity Reaction Status Date / Time silver sulfadiazine Allergy Unknown UNK Verified 06/11/21 14:55 [From [facility]] Review of Systems Review of Systems: Yes all other systems are reviewed and are negative PMFSH Past Medical History Medical History Aortic stenosis Chronic indwelling Molina catheter Chronic UTI Congestive heart failure COPD (chronic obstructive pulmonary disease) Diabetes Glaucoma H/O: CVA (cerebrovascular accident) Hypertension Obesity Osteoarthritis Paroxysmal atrial fibrillation Severe sepsis Surgical History H/O adenoidectomy H/O enucleation of left eyeball History of tonsillectomy Social History Social History Household Members: Children and Caregiver Housing: Apartment Do you presently have visiting nurse or other home services: No Unable to assess alcohol history related to: Unknown Alcohol intake: never Patient Tobacco Use Status: Never used Tobacco Second Hand Smoke Exposure: No Use of substances other than those prescribed or required for medical reasons: No Advance Directives: Yes Advance Directives on File: Yes Advance Directives Date on File: 07/09/20 service: No Current occupational status: disabled Physical Exam Vital Signs: Vital Signs: Last Vital Signs Temp 98.5 F 06/13/21 18:42 Pulse 70 06/13/21 18:42 Resp 20 06/13/21 18:42 BP 137/69 06/13/21 18:42 Pulse Ox 93 06/13/21 18:42 BMI result Body Mass Index 45.1 Const: Other: Awake, alert, female patient, answers all questions appropriately, does not appear to be in distress. HENMT: Head: Yes normal to inspection, Yes normocephalic and Yes atraumatic Ears: external ears normal General nose exam: Normal external nose present Face and sinus: Yes normal facial exam Mouth: Normal oral and palatal mucosa present Throat: Yes posterior oropharynx normal Eyes: General: appearance normal, both eyes and all related structures Pupils: Equal, round and reactive pupils present Neck: Neck: Yes normal visual inspection, Yes no lymphadenopathy, Yes trachea midline and Yes supple Chest: Chest palpation & inspection: normal inspection of the chest and normal palpation of entire chest wall Resp: Effort & Inspection: normal respiratory effort and able to speak in complete sentences Auscultation: clear to auscultation bilaterally Cardio: Rate: regular rate Rhythm: regular rhythm Heart sounds: S1 normal heart sound present, S2 normal heart sound present and no murmurs GI: Inspection: Yes normal to inspection Palpation (GI): Soft to palpation, nontender and no guarding Auscultation: normal bowel sounds : General: Yes no CVA tenderness Back/Spine/Pelvis: Back: no CVA tenderness Skin: Other: Cellulitis of the left lower extremity Neuro: Cranial nerves: Yes CN's II-XII intact bilaterally and Yes Equal, round and reactive pupils present Cognition (Neuro): normal cognition Motor exam (neuro): 5/5 motor strength present throughout Extrem: Other: The patient is brawny skin changes to both lower extremities with erythema and increased warmth to the left lower extremity extending from the ankle to just below the knee, I did stefanie this area with a blue marker pen. General: Yes normal to inspection Psych: Appearance: grossly normal Speech and movement: Normal speech and movement present Affect: normal affect Attitude: cooperative Thought process: Normal thought process present Thought content: Normal thought content present Course Course Course Narrative: 70-year-old female who presents emergency department for evaluation of high glucose and pain of her left lower extremity x1 week. The patient states that her left lower extremity was scratched by a baby 1 week prior and since then she has had increased redness and swelling which is gotten progressively worse. She was seen in the emergency department several days prior and started on Keflex however she has not been able to get this medication therefore she has been noncompliant with the treatment. Patient was initially seen by my colleague, and I assumed care of this patient at 4:30 p.m. pending the patient's laboratory evaluation. Dr. delgado be give the patient list pro 5 mg subcutaneously. The patient's laboratory evaluation did reveal an elevated glucose of 354. The patient's bicarb was elevated at 32 in acetone was negative. Chest x-ray is concerning for left upper lobe mass. Given the patient's comorbid medical conditions and her noncompliance, I do not think that she can be managed as an outpatient for the cellulitis therefore she will be treated with Ancef 2 g IV, normal saline x1 L. I will obtain a CT scan of the chest with IV contrast to evaluate the left upper lobe mass. I will discuss the patient's presentation with the covering hospitalist. 1859: I did discuss the patient's presentation with the covering hospitalist, Dr. Estrada and he did accept the patient onto the hospital service. Medical Decision Making Lab Data Result diagrams: 06/13/21 15:02 06/13/21 15:02 Labs: Lab Results 06/13/21 06/13/21 06/13/21 Range/Units 13:26 15:02 15:02 WBC 8.3 (4.8-10.8) X10*3/uL RBC 4.84 (4.20-5.50) X10*6/uL Hgb 13.6 (12.0-16.0) g/dl Hct 42.3 (37.0-47.0) % MCV 87.4 (80.0-98.0) fL MCH 28.1 (27.0-33.0) pg MCHC 32.2 (31.0-35.0) g/dl RDW 14.8 (11.0-16.0) % Plt Count 156 L (160-400) X10*3/uL MPV 12.3 (9.4-12.3) fL Immature Gran % (Auto) 0.2 (0.0-0.4) % Neut % (Auto) 70.5 (45-73) % Lymph % (Auto) 17.1 L (20-40) % [place] % (Auto) 9.4 (2-11) % Eos % (Auto) 2.6 (0-4) % Baso % (Auto) 0.2 (0-2) % Lymph # (Auto) 1.4 (1.2-4.9) X10*3/uL [place] # (Auto) 0.8 (0.1-1.2) X10*3/uL Eos # (Auto) 0.2 (0.0-0.4) X10*3/uL Baso # (Auto) 0.0 (0.0-0.2) X10*3/uL Abs Immat Gran (auto) 0.02 (0.00-0.03) X10*3/uL Absolute Neuts (auto) 5.9 (2.0-8.3) x10*3/uL Absolute Nucleated RBC 0.000 (0.0-0.012) X10*3/uL Nucleated RBC % (auto) 0.0 (0.0-0.2) /100WBC Sodium 136 (135-145) mmol/L Potassium 4.4 (3.3-5.1) mmol/L Chloride 95 L (96-108) mmol/L Carbon Dioxide 32 H (22-29) mmol/L Anion Gap 13 (12-20) BUN 15 (9-16) mg/dL Creatinine 0.71 (0.5-1.4) mg/dL Estim Creat Clear Calc 101.9 Estimated GFR > 60 POC Glucose 350 H* (60-115) mg/dL Random Glucose 354 H* (60-115) mg/dL Lactic Acid (0.5-2.0) mmol/L Calcium 8.8 (8.4-10.2) mg/dL Total Bilirubin 0.6 (0.0-1.0) mg/dL AST 19 D (5-31) U/L ALT 13 (0-31) U/L Alkaline Phosphatase 92 (39-117) U/L Troponin I High Sens (<3.5-17.0) ng/L Total Protein 6.2 L (6.5-8.0) g/dL Albumin 3.3 L (3.5-5.0) g/dL Urine Color Urine Appearance Urine pH (5.0-8.0) Ur Specific Leonard (1.005-1.025) Urine Protein (NEG-TRACE) MG/DL Urine Glucose (UA) (NEG) MG/DL Urine Ketones (NEG) MG/DL Urine Blood (NEG) Urine Nitrite (NEG) Ur Leukocyte Esterase (NEG) Urine RBC (0) /HPF Urine WBC (0-4) /HPF Ur Squamous Epith Cells /LPF Urine Bacteria /LPF Urine Mucus /LPF Acetone, Qual Negative (Negative) COVID-19 ([facility]) (Negative) COVID-19 Clin Com 06/13/21 06/13/21 06/13/21 Range/Units 15:02 18:00 18:16 WBC (4.8-10.8) X10*3/uL RBC (4.20-5.50) X10*6/uL Hgb (12.0-16.0) g/dl Hct (37.0-47.0) % MCV (80.0-98.0) fL MCH (27.0-33.0) pg MCHC (31.0-35.0) g/dl RDW (11.0-16.0) % Plt Count (160-400) X10*3/uL MPV (9.4-12.3) fL Immature Gran % (Auto) (0.0-0.4) % Neut % (Auto) (45-73) % Lymph % (Auto) (20-40) % [place] % (Auto) (2-11) % Eos % (Auto) (0-4) % Baso % (Auto) (0-2) % Lymph # (Auto) (1.2-4.9) X10*3/uL [place] # (Auto) (0.1-1.2) X10*3/uL Eos # (Auto) (0.0-0.4) X10*3/uL Baso # (Auto) (0.0-0.2) X10*3/uL Abs Immat Gran (auto) (0.00-0.03) X10*3/uL Absolute Neuts (auto) (2.0-8.3) x10*3/uL Absolute Nucleated RBC (0.0-0.012) X10*3/uL Nucleated RBC % (auto) (0.0-0.2) /100WBC Sodium (135-145) mmol/L Potassium (3.3-5.1) mmol/L Chloride (96-108) mmol/L Carbon Dioxide (22-29) mmol/L Anion Gap (12-20) BUN (9-16) mg/dL Creatinine (0.5-1.4) mg/dL Estim Creat Clear Calc Estimated GFR POC Glucose 277 H (60-115) mg/dL Random Glucose (60-115) mg/dL Lactic Acid (0.5-2.0) mmol/L Calcium (8.4-10.2) mg/dL Total Bilirubin (0.0-1.0) mg/dL AST (5-31) U/L ALT (0-31) U/L Alkaline Phosphatase (39-117) U/L Troponin I High Sens 39.7 H (<3.5-17.0) ng/L Total Protein (6.5-8.0) g/dL Albumin (3.5-5.0) g/dL Urine Color Urine Appearance Urine pH (5.0-8.0) Ur Specific Leonard (1.005-1.025) Urine Protein (NEG-TRACE) MG/DL Urine Glucose (UA) (NEG) MG/DL Urine Ketones (NEG) MG/DL Urine Blood (NEG) Urine Nitrite (NEG) Ur Leukocyte Esterase (NEG) Urine RBC (0) /HPF Urine WBC (0-4) /HPF Ur Squamous Epith Cells /LPF Urine Bacteria /LPF Urine Mucus /LPF Acetone, Qual (Negative) COVID-19 ([facility]) Negative (Negative) COVID-19 Clin Com See Note 06/13/21 06/13/21 Range/Units 18:31 18:31 WBC (4.8-10.8) X10*3/uL RBC (4.20-5.50) X10*6/uL Hgb (12.0-16.0) g/dl Hct (37.0-47.0) % MCV (80.0-98.0) fL MCH (27.0-33.0) pg MCHC (31.0-35.0) g/dl RDW (11.0-16.0) % Plt Count (160-400) X10*3/uL MPV (9.4-12.3) fL Immature Gran % (Auto) (0.0-0.4) % Neut % (Auto) (45-73) % Lymph % (Auto) (20-40) % [place] % (Auto) (2-11) % Eos % (Auto) (0-4) % Baso % (Auto) (0-2) % Lymph # (Auto) (1.2-4.9) X10*3/uL [place] # (Auto) (0.1-1.2) X10*3/uL Eos # (Auto) (0.0-0.4) X10*3/uL Baso # (Auto) (0.0-0.2) X10*3/uL Abs Immat Gran (auto) (0.00-0.03) X10*3/uL Absolute Neuts (auto) (2.0-8.3) x10*3/uL Absolute Nucleated RBC (0.0-0.012) X10*3/uL Nucleated RBC % (auto) (0.0-0.2) /100WBC Sodium (135-145) mmol/L Potassium (3.3-5.1) mmol/L Chloride (96-108) mmol/L Carbon Dioxide (22-29) mmol/L Anion Gap (12-20) BUN (9-16) mg/dL Creatinine (0.5-1.4) mg/dL Estim Creat Clear Calc Estimated GFR POC Glucose (60-115) mg/dL Random Glucose (60-115) mg/dL Lactic Acid 0.9 (0.5-2.0) mmol/L Calcium (8.4-10.2) mg/dL Total Bilirubin (0.0-1.0) mg/dL AST (5-31) U/L ALT (0-31) U/L Alkaline Phosphatase (39-117) U/L Troponin I High Sens (<3.5-17.0) ng/L Total Protein (6.5-8.0) g/dL Albumin (3.5-5.0) g/dL Urine Color YELLOW Urine Appearance HAZY Urine pH 6.0 (5.0-8.0) Ur Specific Leonard 1.020 (1.005-1.025) Urine Protein NEG (NEG-TRACE) MG/DL Urine Glucose (UA) >=1000 H (NEG) MG/DL Urine Ketones NEG (NEG) MG/DL Urine Blood 2+ H (NEG) Urine Nitrite POS H (NEG) Ur Leukocyte Esterase NEG (NEG) Urine RBC 5-9 H (0) /HPF Urine WBC 0-2 (0-4) /HPF Ur Squamous Epith Cells TRACE /LPF Urine Bacteria 3+ /LPF Urine Mucus TRACE /LPF Acetone, Qual (Negative) COVID-19 ([facility]) (Negative) COVID-19 Clin Com Discharge Plan Discharge Patient Disposition: Admitted As Inpatient
[2021-06-13 18:04] LABS: Glucose, Whole Blood 277 mg/dL (60-115)
[2021-06-13] MEDS: ceFAZolin Sodium/Dextrose,Iso 2 GM/50 ML PIGGYBACK IV (18:33)
[2021-06-13] MEDS: 0.9 % Sodium Chloride 1,000 ML 999 ML IV (18:34)
[2021-06-13 18:38] LABS: COVID-19 Test Negative (Negative)
[2021-06-13 18:39] LABS: Appearance Urine HAZY; Color Urine YELLOW; Glucose Urine UA >=1000 MG/DL (NEG); Leukocyte Esterase Urine NEG (NEG); Nitrite Urine POS (NEG); UACC Culture Trigger YES; Urine Blood 2+ (NEG); Urine Ketones NEG (NEG); Urine Protein NEG (NEG-TRACE)
[2021-06-13 18:42] VITALS: BP 137/69; PULSE 70; RESP 20; TEMP 36.9; O2SAT 93
[2021-06-13 18:49] LABS: Bacteria Urine 3+ /LPF; Mucus Urine TRACE /LPF; Squamous Epithelial Cell Urine TRACE /LPF; WBC Urine 0-2 /HPF (0-4)
[2021-06-13 18:50] LABS: Lactic Acid 0.9 mmol/L (0.5-2.0)
[2021-06-13] MEDS: iohexoL 350 MG/ML 100 ML INFUS..BTL 65 ML IV (20:30)
--- NOTE | 2021-06-13 21:39 | P.HPHOSP_ITS ---
History of Present Illness Date of Service: 06/13/21 Chief Complaint: hyperglycemia this 70-year-old female with past medical history of aortic stenosis, CHF, COPD, diabetes, HTN, obesity, osteoarthritis, paroxysmal AFib, presents to the hospital with complaints of hyperglycemia. Patient reports that she has not been eating appropriately, and therefore her glucose has been significantly high between 405 100 and therefore decided to come to the hospital for further management. Patient has multiple aids at home but is mostly bedbound. She is also noted to have a left lower extremity that is inflamed and has bruising the front, patient reports that she was around a child last week who was picking at her leg and therefore she developed some swelling as well as redness on her legs. She denies any pain. She otherwise denies any cough, no shortness of breath, no chest pain, no abdominal pain nausea or vomiting, no diarrhea constipation, no urinary symptoms and no numbness weakness or tingling in her extremities. On arrival to the ED patient hemodynamically stable with vital significant for O2 of 91% on room air. Labs on arrival were significant for WBC count of 8.3 otherwise unremarkable. She was found to have a glucose of 350, has his speech troponin of 39, and UA that is positive for nitrites and some WBC. COVID-19 negative chest x-ray showed a possible mass, CT chest is negative for any consolidation or pleural effusion or any significant abnormality. Then mass noted on chest x-ray was not seen on Chest CT Review of Systems Review of Systems: Yes all other systems are reviewed and are negative [facility] Medical History Aortic stenosis Chronic indwelling Molina catheter Chronic UTI Congestive heart failure COPD (chronic obstructive pulmonary disease) Diabetes Glaucoma H/O: CVA (cerebrovascular accident) Hypertension Obesity Osteoarthritis Paroxysmal atrial fibrillation Severe sepsis Pertinent family history: no family history of cardiovascular disease Surgical History H/O adenoidectomy H/O enucleation of left eyeball History of tonsillectomy Social History Household Members: Children and Caregiver Housing: Apartment Do you presently have visiting nurse or other home services: No Unable to assess alcohol history related to: Unknown Alcohol intake: never Patient Tobacco Use Status: Never used Tobacco Second Hand Smoke Exposure: No Use of substances other than those prescribed or required for medical reasons: No Advance Directives: Yes Advance Directives on File: Yes Advance Directives Date on File: 07/09/20 service: No Current occupational status: disabled Meds Allergies Allergy/AdvReac Type Severity Reaction Status Date / Time silver sulfadiazine Allergy Unknown UNK Verified 06/11/21 14:55 [From SILVADENE] Active Medications: Current Medications Nystatin (Nystatin Powder 15 Gm Bottle) 1 appl TOPICAL BID MARJAN; Protocol Home Medications Medication Instructions Recorded Confirmed Last Taken Type albuterol sulfate 90 mcg/actuation 2 puff INHALATION Q4-6H PRN 01/23/21 06/13/21 Unknown History aerosol inhaler (Proventil HFA) apixaban 5 mg tablet (Eliquis) 1 tab PO BID 01/23/21 06/13/21 Unknown History aspirin 81 mg tablet,delayed 1 tab PO DAILY 01/23/21 06/13/21 Unknown History release fluticasone propionate 50 1 inh INHALATION BID 01/23/21 06/13/21 Unknown History mcg/actuation blister powder for inhalation (Flovent Diskus) gabapentin 300 mg capsule 1 cap PO TID 01/23/21 06/13/21 Unknown History insulin glargine 100 unit/mL (3 80 unit SUBCUT DAILY 01/23/21 01/23/21 Unknown History mL) subcutaneous pen (Lantus Solostar U-100 Insulin) insulin lispro 100 unit/mL See Protocol SUBCUT BIDAC 01/23/21 06/13/21 Unknown History subcutaneous solution (Humalog U-100 Insulin) ipratropium 0.5 mg-albuterol 3 mg 1 vial INHALATION Q4-6H PRN 01/23/21 06/13/21 Unknown History (2.5 mg base)/3 mL nebulization soln lisinopril 5 mg tablet 1 tab PO DAILY 01/23/21 06/13/21 Unknown History metoprolol tartrate 50 mg tablet 1 tab PO BID 01/23/21 06/13/21 Unknown History simvastatin 40 mg tablet 1 tab PO BEDTIME 01/23/21 06/13/21 Unknown History furosemide 20 mg tablet 1 tab PO DAILY 05/04/21 06/13/21 Unknown History Physical Exam Vital Signs and Narrative: Vital Signs: Last Vital Signs Temp 98.5 F 06/13/21 18:42 Pulse 70 06/13/21 18:42 Resp 20 06/13/21 18:42 BP 137/69 06/13/21 18:42 Pulse Ox 93 06/13/21 18:42 BMI result Body Mass Index 45.1 Const: General: cooperative and no acute distress Orientation/consciousness: patient oriented x3 Eyes: General: appearance normal, both eyes and all related structures Pupils: Equal, round and reactive pupils present Resp: Effort & Inspection: normal respiratory effort Auscultation: clear to auscultation bilaterally Cardio: Rate: regular rate Rhythm: regular rhythm GI: Palpation (GI): Soft to palpation Auscultation: normal bowel sounds Skin: General skin exam: no rashes or lesions noted Neuro: General: patient oriented x3 Cranial nerves: Yes Equal, round and reactive pupils present Cognition (Neuro): normal cognition Extrem: Other: left lower extremity erythema, warmth, swelling, she also has evidence of chronic skin changes, some scabbing on the skin although no drainage noted Results Labs CBC and Chem 7: 06/13/21 15:02 06/13/21 15:02 Labs: Laboratory Results - last 24 hr 06/13/21 06/13/21 06/13/21 13:26 15:02 15:02 MCV 87.4 MCH 28.1 MCHC 32.2 RDW 14.8 Plt Count 156 L MPV 12.3 Immature Gran % (Auto) 0.2 Neut % (Auto) 70.5 Lymph % (Auto) 17.1 L Stevens % (Auto) 9.4 Eos % (Auto) 2.6 Baso % (Auto) 0.2 Lymph # (Auto) 1.4 Stevens # (Auto) 0.8 Eos # (Auto) 0.2 Baso # (Auto) 0.0 Abs Immat Gran (auto) 0.02 Absolute Neuts (auto) 5.9 Absolute Nucleated RBC 0.000 Nucleated RBC % (auto) 0.0 Anion Gap 13 Estim Creat Clear Calc 101.9 Estimated GFR > 60 POC Glucose 350 H* Random Glucose 354 H* Lactic Acid Calcium 8.8 Total Bilirubin 0.6 AST 19 D ALT 13 Alkaline Phosphatase 92 Troponin I High Sens Total Protein 6.2 L Albumin 3.3 L Urine Color Urine Appearance Urine pH Ur Specific [place] Urine Protein Urine Glucose (UA) Urine Ketones Urine Blood Urine Nitrite Ur Leukocyte Esterase Urine RBC Urine WBC Ur Squamous Epith Cells Urine Bacteria Urine Mucus Acetone, Qual Negative COVID-19 (ERIKA) COVID-19 [employer] 06/13/21 06/13/21 06/13/21 15:02 18:00 18:16 MCV MCH MCHC RDW Plt Count MPV Immature Gran % (Auto) Neut % (Auto) Lymph % (Auto) Stevens % (Auto) Eos % (Auto) Baso % (Auto) Lymph # (Auto) Stevens # (Auto) Eos # (Auto) Baso # (Auto) Abs Immat Gran (auto) Absolute Neuts (auto) Absolute Nucleated RBC Nucleated RBC % (auto) Anion Gap Estim Creat Clear Calc Estimated GFR POC Glucose 277 H Random Glucose Lactic Acid Calcium Total Bilirubin AST ALT Alkaline Phosphatase Troponin I High Sens 39.7 H Total Protein Albumin Urine Color Urine Appearance Urine pH Ur Specific [place] Urine Protein Urine Glucose (UA) Urine Ketones Urine Blood Urine Nitrite Ur Leukocyte Esterase Urine RBC Urine WBC Ur Squamous Epith Cells Urine Bacteria Urine Mucus Acetone, Qual COVID-19 (ERIKA) Negative COVID-[employer] Com See Note 06/13/21 06/13/21 18:31 18:31 MCV MCH MCHC RDW Plt Count MPV Immature Gran % (Auto) Neut % (Auto) Lymph % (Auto) Stevens % (Auto) Eos % (Auto) Baso % (Auto) Lymph # (Auto) Stevens # (Auto) Eos # (Auto) Baso # (Auto) Abs Immat Gran (auto) Absolute Neuts (auto) Absolute Nucleated RBC Nucleated RBC % (auto) Anion Gap Estim Creat Clear Calc Estimated GFR POC Glucose Random Glucose Lactic Acid 0.9 Calcium Total Bilirubin AST ALT Alkaline Phosphatase Troponin I High Sens Total Protein Albumin Urine Color YELLOW Urine Appearance HAZY Urine pH 6.0 Ur Specific [place] 1.020 Urine Protein NEG Urine Glucose (UA) >=1000 H Urine Ketones NEG Urine Blood 2+ H Urine Nitrite POS H Ur Leukocyte Esterase NEG Urine RBC 5-9 H Urine WBC 0-2 Ur Squamous Epith Cells TRACE Urine Bacteria 3+ Urine Mucus TRACE Acetone, Qual COVID-19 (ERIKA) COVID-19 [facility] Radiologist's Impressions: Impressions Chest X-Ray 06/13/21 14:48 IMPRESSION: Question right upper lobe mass for which further evaluation with CT of the chest could be more definitive. Old granulomatous disease. Cardiomegaly without pulmonary edema. Assessment and Plan (1) Hyperglycemia: Status: Acute (2) Cellulitis: Qualifiers: Laterality: left Site of cellulitis: extremity Site of cellulitis of extremity: lower extremity Qualified Code(s): L03.116 - Cellulitis of left lowe r limb Status: Acute (3) UTI (urinary tract infection): Status: Acute 70-year-old female with past medical history as mentioned in the HPI presents to the hospital with hyperglycemia found to have cellulitis # cellulitis - afebrile, leukocytosis - has warmth, edema, as well as erythema - has skin scabs but no significant evidence of draining - will start her on doxycycline as she has evidence of scabbing( skin compromise) with history of diabetes - follow cultures # chronic UTI - patient asymptomatic - has history of chronic UTI - at this time will hold off on treating as patient asymptomatic and has history of chronic UTIs # hyperglycemia - most likely secondary to poorly controlled diabetes - patient is not sure how much Lantus she takes at home - waiting pharmacy confirmation but at this time was started on 40 of Lantus, obtain hemoglobin A1c, will add low-dose sliding scale insulin - diabetic diet # paroxysmal AFib - continue metoprolol, as well as Eliquis DVT prophylaxis: Eliquis Quality Stroke Does the patient have a stroke diagnosis?: No VTE Prior VTE?: No VTE Risk Level:: Medical - moderate - high VTE Device Contraindication: Treatment Not Indicated VTE Drug Contraindication: N/A - Med Ordered
[2021-06-13 21:49] VITALS: BP 110/38; PULSE 79; RESP 18; TEMP 37.1; O2SAT 91
[2021-06-13 22:07] LABS: Glucose, Whole Blood 345 mg/dL (60-115)
[2021-06-14] VITALS (13 sets, daily range): BP systolic 115–161; BP diastolic 44–81; PULSE 8–80; RESP 16–20; TEMP 35.6–36.9; O2SAT 89–100
--- NOTE | 2021-06-14 04:05 | PC.NURSE ---
Pt moved from [facility] to room 6. Assisted patient with changeover to hospital clothing. Pt has indwelling urinary catheter from home. Pt also reports that she is being treated with antifungal cream on buttocks.
[2021-06-14 06:10] LABS: MANUAL DIFF FLAG NO
[2021-06-14 06:34] LABS: Anion Gap 11 (12-20); Blood Urea Nitrogen 11 mg/dL (9-16); Calcium 8.5 mg/dL (8.4-10.2); Carbon Dioxide 34 mmol/L (22-29); Chloride 97 mmol/L (96-108); Creatinine Clr Calc Pharmacy 109.7; Estimated Glomerular Filt Rate > 60; Glucose Random 319 mg/dL (60-115); Potassium 3.7 mmol/L (3.3-5.1); Sodium 138 mmol/L (135-145)
[2021-06-14 06:36] LABS: Basophils Percent Auto 0.1 % (0-2); Eosinophils Absolute Auto 0.3 X10*3/uL (0.0-0.4); Eosinophils Percent Auto 3.9 % (0-4); Hematocrit 41.4 % (37.0-47.0); Imm Gran Abs Auto 0.02 X10*3/uL (0.00-0.03); Imm Gran Pct Auto 0.3 % (0.0-0.4); Lymphocytes Absolute Auto 1.3 X10*3/uL (1.2-4.9); Lymphocytes Percent Auto 17.5 % (20-40); Mean Corpuscular HGB Conc 31.4 g/dl (31.0-35.0); Mean Corpuscular Hemoglobin 27.8 pg (27.0-33.0); Mean Corpuscular Volume 88.7 fL (80.0-98.0); Mean Platelet Volume 12.3 fL (9.4-12.3); Monocytes Absolute Auto 0.7 X10*3/uL (0.1-1.2); Monocytes Percent Auto 8.6 % (2-11); Neutrophils Absolute Auto 5.3 x10*3/uL (2.0-8.3); Neutrophils Percent Auto 69.6 % (45-73); Platelet Count 152 X10*3/uL (160-400); Red Blood Count 4.67 X10*6/uL (4.20-5.50); Red Cell Distribution Width 14.7 % (11.0-16.0); White Blood Count 7.7 X10*3/uL (4.8-10.8)
[2021-06-14 06:57] LABS: Estimated Average Glucose 292 mg/dL; Hemoglobin A1c % 11.8 %
[2021-06-14 07:44] LABS: Glucose, Whole Blood 305 mg/dL (60-115)
[2021-06-14] MEDS: Acetaminophen 325 MG TABLET 650 MG PO (07:48)
[2021-06-14] MEDS: Insulin Lispro 100 UNIT/ML 3 ML VIAL SUBCUT ×4 (07:48→21:46)
[2021-06-14] MEDS: Gabapentin 300 MG CAPSULE PO ×3 (08:24→21:46)
[2021-06-14] MEDS: Apixaban 5 MG TABLET PO ×2 (08:24→21:45)
[2021-06-14] MEDS: Aspirin Enteric Coated 81 MG TABLET.DR PO (08:24)
[2021-06-14] MEDS: Furosemide 20 MG TABLET PO (08:24)
[2021-06-14] MEDS: Doxycycline Hyclate 100 MG in 0.9 % Sodium Chloride 250 ML 166.67 MG IV ×2 (08:25→21:45)
[2021-06-14] MEDS: 0.9 % Sodium Chloride Flush 3 ML SYRINGE IVFLUSH ×3 (09:15→22:09)
--- NOTE | 2021-06-14 09:37 | PC.NURSE ---
DR. HENDRICKS AT BEDSIDE, PT AWARE OF PLAN OF CARE.
[2021-06-14] MEDS: Fluticasone Propionate 100 MCG BLST.W.DEV 1 PUFF INHALE ×2 (10:06→20:29)
--- NOTE | 2021-06-14 10:13 | HO.PM.IMPN ---
Subjective Subjective Date of Service: 06/15/21 Interval History: the patient was seen and evaluated this morning Laying in bed, complaining of pain in her left leg Denies any fever, chills or shortness of breath No reported other overnight events. Systemic review: No fever, chills but reports generalized weakness No chest pain, palpitation No shortness of breath or coughing No abdominal pain, nausea or vomiting No urinary symptoms Left lower extremity pain and rash Physical Exam Vital Signs: Vital Signs: Last Vital Signs Temp 98.1 F 06/14/21 07:18 Pulse 74 06/14/21 10:08 Resp 16 06/14/21 07:18 BP 161/74 H 06/14/21 07:18 Pulse Ox 95 06/14/21 07:18 BMI result Body Mass Index 45.1 Const: Other: Constitutional : Alert, oriented, not in distress Neck : Normal inspection, Supple Cardiovascular : RRR, S1 S2, no lower extremity edema Respiratory : Good bilateral air entry, no crackles, wheezes or rhonchi Gastrointestinal: soft, lax, Normal bowel sounds, Non tender Skin : Warm, Dry, left lower extremity chronic stasis dermatitis findings associated with increased erythema, warmth and swelling with no clear drainage. Pressure ulcers in the buttock area stage 2-3 Neurological : Alert & oriented x3, No focal deficit Objective Data Active Medications Acetaminophen (Acetaminophen 325 Mg Tablet) 650 mg PO Q6H PRN PRN Reason: Pain, Mild (Pain Scale 1-3) Last Admin: 06/14/21 07:48 Dose: 650 mg Documented by: ROBERT Albuterol Sulfate (Albuterol Sulfate 90 Mcg 8 Gm Inhaler) 2 puff INHALE Q4H PRN PRN Reason: Wheezing Albuterol/Ipratropium (Albuterol/Iprat 2.5/0.5mg 3 Ml Ampul.Neb) 3 ml INHALE Q4H PRN PRN Reason: Wheezing Apixaban (Apixaban 5 Mg Tablet) 5 mg PO BID [facility] Last Admin: 06/14/21 08:24 Dose: 5 mg Documented by: ROBERT Aspirin (Aspirin Enteric Coated 81 Mg Tablet.) 81 mg PO DAILY [facility] Last Admin: 06/14/21 08:24 Dose: 81 mg Documented by: ROBERT Atorvastatin Calcium (Atorvastatin Calcium 20 Mg Tablet) 20 mg PO BEDTIME [facility] Clotrimazole (Clotrimazole 1 % Cream 15 Gm Tube) 1 appl TOPICAL BID [facility] Dextrose (Dextrose 50 % 25 Gm/50 Ml Vial) 25 gm IVPUSH Q15M PRN; Protocol PRN Reason: per Hypoglycemia Standing Ord. Docusate Sodium (Docusate Sodium 100 Mg Capsule) 100 mg PO DAILY PRN PRN Reason: Constipation Fluticasone Propionate (Fluticasone Propionate 100 Mcg Blst.W.Dev) 1 puff INHALE RBID [facility] Last Admin: 06/14/21 10:06 Dose: 1 puff Documented by: SERGIO Furosemide (Furosemide 20 Mg Tablet) 20 mg PO DAILY [facility]; Protocol Last Admin: 06/14/21 08:24 Dose: 20 mg Documented by: ROBERT Gabapentin (Gabapentin 300 Mg Capsule) 300 mg PO TID [facility] Last Admin: 06/14/21 08:24 Dose: 300 mg Documented by: ROBERT Glucose (Glucose Gel 15 Gm Gel..Gram.) 15 gm PO Q15M PRN; Protocol PRN Reason: per Hypoglycemia Standing Ord. Doxycycline Hyclate 100 mg/ (Sodium Chloride) 250 mls @ 166.67 mls/hr IV Q12H [facility] Last Admin: 06/14/21 08:25 Dose: 166.67 mls/hr Documented by: ROBERT Cefazolin Sodium 1 gm/ Sodium (Chloride) 50 mls @ 100 mls/hr IV Q8H [facility] Insulin Glargine (Insulin Glargine,Hum.Rec.Anlog 100 Unit/Ml 10 Ml Vial) 40 unit SUBCUT DAILY [facility] Insulin Human Lispro (Insulin Lispro 100 Unit/Ml 3 Ml Vial) 0 unit SUBCUT QIDACHS [facility]; Protocol Last Admin: 06/14/21 07:48 Dose: 8 unit Documented by: ROBERT Insulin Human Lispro (Insulin Lispro 100 Unit/Ml 3 Ml Vial) 0 unit SUBCUT QIDACHS [facility]; Protocol Lisinopril (Lisinopril 5 Mg Tablet) 5 mg PO DAILY [facility]; Protocol Metoprolol Tartrate (Metoprolol Tartrate 50 Mg Tablet) 50 mg PO BID [facility]; Protocol Nystatin (Nystatin Powder 15 Gm Bottle) 1 appl TOPICAL BID [facility]; Protocol Ondansetron HCl (Ondansetron Hcl 4 Mg/2 Ml Vial) 4 mg IVPUSH Q8H PRN PRN Reason: Nausea and Vomiting Pharmacy Consult (Consult Rx Perform Med Rec) 1 each MISCELLANE ONCE PRN PRN Reason: Consult order Pharmacy Consult (Consult Rx Perform Med Rec) 1 each MISCELLANE ONCE PRN PRN Reason: Consult order Sodium Chloride (0.9 % Sodium Chloride Flush 3 Ml Syringe) 3 ml IVFLUSH QSHIFT MARJAN Last Admin: 06/14/21 09:15 Dose: 3 ml Documented by: ROBERT Labs CBC & Chem 7: 06/15/21 05:54 06/15/21 05:54 Labs: Laboratory Results - last 24 hr 06/13/21 06/13/21 06/13/21 13:26 15:02 15:02 MCV 87.4 MCH 28.1 MCHC 32.2 RDW 14.8 Plt Count 156 L MPV 12.3 Immature Gran % (Auto) 0.2 Neut % (Auto) 70.5 Lymph % (Auto) 17.1 L [place] % (Auto) 9.4 Eos % (Auto) 2.6 Baso % (Auto) 0.2 Lymph # (Auto) 1.4 Nash # (Auto) 0.8 Eos # (Auto) 0.2 Baso # (Auto) 0.0 Abs Immat Gran (auto) 0.02 Absolute Neuts (auto) 5.9 Absolute Nucleated RBC 0.000 Nucleated RBC % (auto) 0.0 Anion Gap 13 Estim Creat Clear Calc 101.9 Estimated GFR > 60 POC Glucose 350 H* Random Glucose 354 H* Estimat Average Glucose Hemoglobin A1c % Lactic Acid Calcium 8.8 Total Bilirubin 0.6 AST 19 D ALT 13 Alkaline Phosphatase 92 Troponin I High Sens Total Protein 6.2 L Albumin 3.3 L Urine Color Urine Appearance Urine pH Ur Specific [place] Urine Protein Urine Glucose (UA) Urine Ketones Urine Blood Urine Nitrite Ur Leukocyte Esterase Urine RBC Urine WBC Ur Squamous Epith Cells Urine Bacteria Urine Mucus Acetone, Qual Negative COVID-19 (ERIKA) COVID-19 Clin Com 06/13/21 06/13/21 06/13/21 15:02 18:00 18:16 MCV MCH MCHC RDW Plt Count MPV Immature Gran % (Auto) Neut % (Auto) Lymph % (Auto) Nash % (Auto) Eos % (Auto) Baso % (Auto) Lymph # (Auto) Nash # (Auto) Eos # (Auto) Baso # (Auto) Abs Immat Gran (auto) Absolute Neuts (auto) Absolute Nucleated RBC Nucleated RBC % (auto) Anion Gap Estim Creat Clear Calc Estimated GFR POC Glucose 277 H Random Glucose Estimat Average Glucose Hemoglobin A1c % Lactic Acid Calcium Total Bilirubin AST ALT Alkaline Phosphatase Troponin I High Sens 39.7 H Total Protein Albumin Urine Color Urine Appearance Urine pH Ur Specific [place] Urine Protein Urine Glucose (UA) Urine Ketones Urine Blood Urine Nitrite Ur Leukocyte Esterase Urine RBC Urine WBC Ur Squamous Epith Cells Urine Bacteria Urine Mucus Acetone, Qual COVID-19 (ERIKA) Negative COVID-19 Clin Com See Note 06/13/21 06/13/21 06/13/21 18:31 18:31 22:03 MCV MCH MCHC RDW Plt Count MPV Immature Gran % (Auto) Neut % (Auto) Lymph % (Auto) [place] % (Auto) Eos % (Auto) Baso % (Auto) Lymph # (Auto) Nash # (Auto) Eos # (Auto) Baso # (Auto) Abs Immat Gran (auto) Absolute Neuts (auto) Absolute Nucleated RBC Nucleated RBC % (auto) Anion Gap Estim Creat Clear Calc Estimated GFR POC Glucose 345 H Random Glucose Estimat Average Glucose Hemoglobin A1c % Lactic Acid 0.9 Calcium Total Bilirubin AST ALT Alkaline Phosphatase Troponin I High Sens Total Protein Albumin Urine Color YELLOW Urine Appearance HAZY Urine pH 6.0 Ur Specific [place] 1.020 Urine Protein NEG Urine Glucose (UA) >=1000 H Urine Ketones NEG Urine Blood 2+ H Urine Nitrite POS H Ur Leukocyte Esterase NEG Urine RBC 5-9 H Urine WBC 0-2 Ur Squamous Epith Cells TRACE Urine Bacteria 3+ Urine Mucus TRACE Acetone, Qual COVID-19 (ERIKA) COVID-19 Clin Com 06/14/21 06/14/21 06/14/21 05:50 05:50 05:50 MCV 88.7 MCH 27.8 MCHC 31.4 RDW 14.7 Plt Count 152 L MPV 12.3 Immature Gran % (Auto) 0.3 Neut % (Auto) 69.6 Lymph % (Auto) 17.5 L [place] % (Auto) 8.6 Eos % (Auto) 3.9 Baso % (Auto) 0.1 Lymph # (Auto) 1.3 Nash # (Auto) 0.7 Eos # (Auto) 0.3 Baso # (Auto) 0.0 Abs Immat Gran (auto) 0.02 Absolute Neuts (auto) 5.3 Absolute Nucleated RBC 0.000 Nucleated RBC % (auto) 0.0 Anion Gap 11 L Estim Creat Clear Calc 109.7 Estimated GFR > 60 POC Glucose Random Glucose 319 H Estimat Average Glucose 292 Hemoglobin A1c % 11.8 Lactic Acid Calcium 8.5 Total Bilirubin AST ALT Alkaline Phosphatase Troponin I High Sens Total Protein Albumin Urine Color Urine Appearance Urine pH Ur Specific [place] Urine Protein Urine Glucose (UA) Urine Ketones Urine Blood Urine Nitrite Ur Leukocyte Esterase Urine RBC Urine WBC Ur Squamous Epith Cells Urine Bacteria Urine Mucus Acetone, Qual COVID-19 (ERIKA) COVID-19 Clin Com 06/14/21 07:25 MCV MCH MCHC RDW Plt Count MPV Immature Gran % (Auto) Neut % (Auto) Lymph % (Auto) [place] % (Auto) Eos % (Auto) Baso % (Auto) Lymph # (Auto) Nash # (Auto) Eos # (Auto) Baso # (Auto) Abs Immat Gran (auto) Absolute Neuts (auto) Absolute Nucleated RBC Nucleated RBC % (auto) Anion Gap Estim Creat Clear Calc Estimated GFR POC Glucose 305 H Random Glucose Estimat Average Glucose Hemoglobin A1c % Lactic Acid Calcium Total Bilirubin AST ALT Alkaline Phosphatase Troponin I High Sens Total Protein Albumin Urine Color Urine Appearance Urine pH Ur Specific [place] Urine Protein Urine Glucose (UA) Urine Ketones Urine Blood Urine Nitrite Ur Leukocyte Esterase Urine RBC Urine WBC Ur Squamous Epith Cells Urine Bacteria Urine Mucus Acetone, Qual COVID-19 (ERIKA) COVID-19 Clin Com Microbiology Microbiology Results: Microbiology 06/13/21 18:42 Urine Culture - Preliminary Urine Catheterized - Molina Catheter Gram negative adriana Assessment and Plan (1) UTI (urinary tract infection): Status: Acute (2) Hyperglycemia: Status: Acute (3) Cellulitis: Status: Acute Assessment and Plan: 70-year-old female with past medical history as mentioned in the HPI presents to the hospital with hyperglycemia found to have cellulitis # cellulitis RLE warmth, edema, as well as erythema Continue doxycycline and cephazolin follow cultures # UTI Positive nitrate with no elevated WBCs patient asymptomatic history of chronic colonizing will hold off on treating as patient asymptomatic and has history of chronic UTIs # hyperglycemia secondary to diabetes type 2 secondary to poorly controlled diabetes and stress of infection not sure how much Lantus she takes at home For now continue 40 of Lantus hemoglobin A1c low-dose sliding scale insulin diabetic diet # Pressure ulcers Stage II Local measures To get wound care nurse # paroxysmal AFib continue metoprolol, as well as Eliquis DVT prophylaxis: Eliquis Quality Stroke Does the patient have a stroke diagnosis?: No VTE Prior VTE?: No VTE Risk Level:: Medical - moderate - high VTE Device Contraindication: Treatment Not Indicated VTE Drug Contraindication: N/A - Med Ordered
--- NOTE | 2021-06-14 10:24 | PHA.MEDREC ---
Pharmacy Consult ? Medication Reconciliation Pharmacy has completed the medication reconciliation.
--- NOTE | 2021-06-14 10:32 | P.CDIC_ITS ---
CDI Concurrent Query Documentation Clarification: PHYSICIAN'S DOCUMENTATION REQUEST Date of Query: 06/14/21 1032 Patient Name: Aleah Connor Admit Date: 06/13/21 Dear Doctor, A review of the medical record indicates additional documentation may be needed. Please review below and update the documentation accordingly. Verdana 4Bd Risk Factors/Clinical Indicators/Treatments Verdana 4d Chronic UTI has chronic rai catheter. Patient asymptomatic, urinary frequency, hazy urine. Micro - gram neg rods. Please clarify the relationship between these conditions: Urinary tract infection due to/associated with chronic rai catheter or other Urinary tract infection * Yes, [ ] is related to / associated with / due to [ ] * No, [ ] is not related to / associated with / due to [ ] * Unable to determine Use of terms such as suspected, likely, concern for, or probable (associated with a specific diagnosis that is being evaluated, monitored, or treated as if it exists) are acceptable and can be coded in the inpatient setting, when documented at the time of discharge. Thank you, Fariha Ward [facility], CDIS Extension: [id number] Please use your independent medical judgment in providing your response. THIS QUERY IS PART OF THE PERMANENT MEDICAL RECORD Provider Response: Other Other Diagnosis: Chronic UTI
[2021-06-14] MEDS: Metoprolol Tartrate 50 MG TABLET PO ×2 (11:06→21:46)
[2021-06-14] MEDS: lisinopriL 5 MG TABLET PO (11:06)
[2021-06-14] MEDS: Insulin Glargine,Hum.rec.anlog 100 UNIT/ML 10 ML VIAL 40 UNIT SUBCUT (11:07)
[2021-06-14] MEDS: Nystatin Powder 15 GM BOTTLE 1 APPL TOPICAL ×2 (11:07→21:47)
[2021-06-14] MEDS: Clotrimazole 1 % Cream 15 GM TUBE 1 APPL TOPICAL ×2 (11:07→21:47)
--- NOTE | 2021-06-14 12:26 | MHC.CM.PN ---
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 PT IS ADAMANT ABOUT RETURNING HOME AND NOT GOING TO STR LIKE SHE HAS IN THE PAST. D/C PLAN: HOME W/RESUMP OF SERV VS STR, TRANSPORT BLS CM RECIVED A CALL FROM[facility] AT APPROX 12:05PM, JELANI REPORTED OUTSIDE SERVICES ARE VERY CONCERNED FOR PT WHO JELANI REPORTS IS VERY MANIPULATIVE AND CAN COME ACROSS OKAY, AT TIMES PT REFUSES CARE AND LAST WEEK REFUSED TO HAVE HER INDWELLING MALCOLM CHANGED D/T WANTING A NEW MARIAA LIFT, PER JELANI HER MARIAA IS PRACTICALLY BRAND NEW AND LIFTS UP TO 700LBS, JELANI REPORTED CARETENDERS HAS FILED AN ELDER AT RISK, JELANI ALSO REPORTED PT IS NOT COMPLIANT W/DIABETIC DIET. JONNIE GAVE NAME AND CONTACT NUMBERS FOR OTHER CM/SW'S ON PT'S TEAM, THEY ARE LISTED BELOW.JELANI ALSO REQUESTING GERMARISSA EVAL, PT HAS REFUSED EVAL AT HOME. [facility] [phone] [facility]: PARMINDER [facility]ON CM [phone] PRIME: SKYE SINGH IS PT'S SW AND IN CHARGE OF PT'S MONEY, [facility]: YARD CRANE OPERATOR'S CARETENDERS: AMARA
[2021-06-14 13:46] LABS: Glucose, Whole Blood 271 mg/dL (60-115)
--- NOTE | 2021-06-14 13:50 | PC.NURSE ---
Skin assessment completed today. Patient has Cellulitis with scabbed wounds on left lower extremity-Lotion applied. Patient also has Stage 2 pressure ulcers to left buttock and coccyx, Triad applied covered with foam dressing. The left 4th toenail was falling off so this nurse removed it, cleaned up the toe, applied Woundres' gel and covered with gauze. Patient also has dry peeling skin to right lower thigh- lotion applied.
[2021-06-14 17:03] LABS: Glucose, Whole Blood 310 mg/dL (60-115)
[2021-06-14] MEDS: Albuterol/Iprat 2.5/0.5MG 3 ML AMPUL.NEB INHALE (20:04)
[2021-06-14 20:31] LABS: Glucose, Whole Blood 298 mg/dL (60-115)
[2021-06-14] MEDS: Atorvastatin Calcium 20 MG TABLET PO (21:45)
[2021-06-15] VITALS (12 sets, daily range): BP systolic 138–186; BP diastolic 56–90; PULSE 64–87; RESP 16–19; TEMP 36.1–37; O2SAT 93–98; BMI 45.1
[2021-06-15 06:14] LABS: Hemoglobin 12.7 g/dl (12.0-16.0); Mean Corpuscular HGB Conc 31.8 g/dl (31.0-35.0); Mean Corpuscular Hemoglobin 28.3 pg (27.0-33.0); Mean Corpuscular Volume 89.3 fL (80.0-98.0); Mean Platelet Volume 11.9 fL (9.4-12.3); Platelet Count 155 X10*3/uL (160-400); Red Blood Count 4.48 X10*6/uL (4.20-5.50); Red Cell Distribution Width 14.7 % (11.0-16.0); White Blood Count 7.1 X10*3/uL (4.8-10.8)
[2021-06-15] MEDS: Acetaminophen 325 MG TABLET 650 MG PO (06:21)
[2021-06-15 06:45] LABS: Anion Gap 9 (12-20); Blood Urea Nitrogen 8 mg/dL (9-16); Calcium 8.8 mg/dL (8.4-10.2); Carbon Dioxide 36 mmol/L (22-29); Chloride 98 mmol/L (96-108); Creatinine Clr Calc Pharmacy 113.1; Estimated Glomerular Filt Rate > 60; Glucose Random 231 mg/dL (60-115); Potassium 4.1 mmol/L (3.3-5.1); Sodium 139 mmol/L (135-145)
[2021-06-15 07:30] LABS: Glucose, Whole Blood 210 mg/dL (60-115)
[2021-06-15] MEDS: Insulin Lispro 100 UNIT/ML 3 ML VIAL SUBCUT ×4 (07:53→21:11)
[2021-06-15] MEDS: 0.9 % Sodium Chloride Flush 3 ML SYRINGE IVFLUSH ×3 (08:00→21:12)
[2021-06-15] MEDS: Metoprolol Tartrate 50 MG TABLET PO ×2 (08:01→21:11)
[2021-06-15] MEDS: Aspirin Enteric Coated 81 MG TABLET.DR PO (08:02)
[2021-06-15] MEDS: lisinopriL 5 MG TABLET PO (08:02)
[2021-06-15] MEDS: Furosemide 20 MG TABLET PO (08:02)
[2021-06-15] MEDS: Gabapentin 300 MG CAPSULE PO ×3 (08:02→21:11)
[2021-06-15] MEDS: Apixaban 5 MG TABLET PO ×2 (08:02→21:10)
[2021-06-15] MEDS: Mineral Oil/Petrolatum,White 106 GM Tube 1 APPL TOPICAL ×2 (08:08→21:12)
[2021-06-15] MEDS: Fluticasone Propionate 100 MCG BLST.W.DEV 1 PUFF INHALE ×2 (08:12→19:57)
[2021-06-15] MEDS: Insulin Glargine,Hum.rec.anlog 100 UNIT/ML 10 ML VIAL 50 UNIT SUBCUT (08:35)
[2021-06-15] MEDS: Doxycycline Hyclate 100 MG in 0.9 % Sodium Chloride 250 ML 166.67 MG IV ×2 (09:34→21:10)
--- NOTE | 2021-06-15 10:13 | MHC.CM.PN ---
nurse home health care social worker note patient reported that she has ; [facility] FOR RN-PT-OT SERVICES AND THEY PROVIDE HER MALCOLM CATHETERS. THEY ARE ACTIVELY FOLLOWING HER BEATRICE IN THE 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
[2021-06-15] MEDS: Nystatin Powder 15 GM BOTTLE 1 APPL TOPICAL ×2 (10:20→21:12)
[2021-06-15] MEDS: Clotrimazole 1 % Cream 15 GM TUBE 1 APPL TOPICAL ×2 (10:20→21:12)
--- NOTE | 2021-06-15 10:23 | HO.PM.IMPN ---
Subjective Subjective Date of Service: 06/15/21 Interval History: the patient was seen and evaluated this morning Laying in bed, complaining of pain in her left leg Denies any fever, chills or shortness of breath No reported other overnight events. Systemic review: No fever, chills but reports generalized weakness No chest pain, palpitation No shortness of breath or coughing No abdominal pain, nausea or vomiting No urinary symptoms Left lower extremity pain and rash Physical Exam Vital Signs: Vital Signs: Last Vital Signs Temp 97.5 F 06/15/21 07:29 Pulse 73 06/15/21 08:16 Resp 19 06/15/21 07:29 BP 148/56 H 06/15/21 08:02 Pulse Ox 94 06/15/21 07:29 BMI result Body Mass Index 45.1 Const: Other: Constitutional : Alert, oriented, not in distress Neck : Normal inspection, Supple Cardiovascular : RRR, S1 S2, no lower extremity edema Respiratory : Good bilateral air entry, no crackles, wheezes or rhonchi Gastrointestinal: soft, lax, Normal bowel sounds, Non tender Skin : Warm, Dry, left lower extremity chronic stasis dermatitis findings associated with increased erythema, warmth and swelling with no clear drainage. Pressure ulcers in the buttock area stage 2-3 Neurological : Alert & oriented x3, No focal deficit Objective Data Active Medications Acetaminophen (Acetaminophen 325 Mg Tablet) 650 mg PO Q6H PRN PRN Reason: Pain, Mild (Pain Scale 1-3) Last Admin: 06/15/21 06:21 Dose: 650 mg Documented by: SHABNAM Albuterol Sulfate (Albuterol Sulfate 90 Mcg 8 Gm Inhaler) 2 puff INHALE Q4H PRN PRN Reason: Wheezing Albuterol/Ipratropium (Albuterol/Iprat 2.5/0.5mg 3 Ml Ampul.Neb) 3 ml INHALE Q4H PRN PRN Reason: Wheezing Last Admin: 06/14/21 20:04 Dose: 3 ml Documented by: JOHNNY Apixaban (Apixaban 5 Mg Tablet) 5 mg PO BID [facility] Last Admin: 06/15/21 08:02 Dose: 5 mg Documented by: ORLY Aspirin (Aspirin Enteric Coated 81 Mg Tablet.) 81 mg PO DAILY [facility] Last Admin: 06/15/21 08:02 Dose: 81 mg Documented by: ORLY Atorvastatin Calcium (Atorvastatin Calcium 20 Mg Tablet) 20 mg PO BEDTIME [facility] Last Admin: 06/14/21 21:45 Dose: 20 mg Documented by: SHABNAM Clotrimazole (Clotrimazole 1 % Cream 15 Gm Tube) 1 appl TOPICAL BID [facility] Last Admin: 06/15/21 10:20 Dose: 1 appl Documented by: ORLY Dextrose (Dextrose 50 % 25 Gm/50 Ml Vial) 25 gm IVPUSH Q15M PRN; Protocol PRN Reason: per Hypoglycemia Standing Ord. Docusate Sodium (Docusate Sodium 100 Mg Capsule) 100 mg PO DAILY PRN PRN Reason: Constipation Fluticasone Propionate (Fluticasone Propionate 100 Mcg Blst.W.Dev) 1 puff INHALE RBID [facility] Last Admin: 06/15/21 08:12 Dose: 1 puff Documented by: SERGIO Furosemide (Furosemide 20 Mg Tablet) 20 mg PO DAILY [facility]; Protocol Last Admin: 06/15/21 08:02 Dose: 20 mg Documented by: ORLY Gabapentin (Gabapentin 300 Mg Capsule) 300 mg PO TID [facility] Last Admin: 06/15/21 08:02 Dose: 300 mg Documented by: ORLY Glucose (Glucose Gel 15 Gm Gel..Gram.) 15 gm PO Q15M PRN; Protocol PRN Reason: per Hypoglycemia Standing Ord. Doxycycline Hyclate 100 mg/ (Sodium Chloride) 250 mls @ 166.67 mls/hr IV Q12H [facility] Last Admin: 06/15/21 09:34 Dose: 166.67 mls/hr Documented by: ORLY Cefazolin Sodium 1 gm/ Sodium (Chloride) 50 mls @ 100 mls/hr IV Q8H [facility] Last Infusion: 06/15/21 09:39 Dose: 0 mls/hr Documented by: ORLY Insulin Glargine (Insulin Glargine,Hum.Rec.Anlog 100 Unit/Ml 10 Ml Vial) 50 unit SUBCUT DAILY [facility] Last Admin: 06/15/21 08:35 Dose: 50 unit Documented by: ORLY Insulin Human Lispro (Insulin Lispro 100 Unit/Ml 3 Ml Vial) 0 unit SUBCUT QIDACHS [facility]; Protocol Last Admin: 06/15/21 07:53 Dose: 4 unit Documented by: ORLY Insulin Human Lispro (Insulin Lispro 100 Unit/Ml 3 Ml Vial) 0 unit SUBCUT QIDACHS [facility]; Protocol Last Admin: 06/15/21 07:58 Dose: Not Given Documented by: ORLY Non-Admin Reason: duplicate order Lisinopril (Lisinopril 5 Mg Tablet) 5 mg PO DAILY [facility]; Protocol Last Admin: 06/15/21 08:02 Dose: 5 mg Documented by: ORLY Metoprolol Tartrate (Metoprolol Tartrate 50 Mg Tablet) 50 mg PO BID [facility]; Protocol Last Admin: 06/15/21 08:01 Dose: 50 mg Documented by: ORLY Multi-Ingred Cream/Lotion/Oil/Oint (Mineral Oil/Petrolatum,White 106 Gm Tube) 1 appl TOPICAL BID [facility]; Protocol Last Admin: 06/15/21 08:08 Dose: 1 appl Documented by: ORLY Nystatin (Nystatin Powder 15 Gm Bottle) 1 appl TOPICAL BID [facility]; Protocol Last Admin: 06/15/21 10:20 Dose: 1 appl Documented by: ORLY Ondansetron HCl (Ondansetron Hcl 4 Mg/2 Ml Vial) 4 mg IVPUSH Q8H PRN PRN Reason: Nausea and Vomiting Pharmacy Consult (Consult Rx Perform Med Rec) 1 each MISCELLANE ONCE PRN PRN Reason: Consult order Pharmacy Consult (Consult Rx Perform Med Rec) 1 each MISCELLANE ONCE PRN PRN Reason: Consult order Sodium Chloride (0.9 % Sodium Chloride Flush 3 Ml Syringe) 3 ml IVFLUSH QSHIFT [facility] Last Admin: 06/15/21 08:00 Dose: 3 ml Documented by: ORLY Labs CBC & Chem 7: 06/15/21 05:54 06/15/21 05:54 Labs: Laboratory Results - last 24 hr 06/14/21 06/14/21 06/14/21 13:40 16:57 20:21 MCV MCH MCHC RDW Plt Count MPV Absolute Nucleated RBC Nucleated RBC % (auto) Anion Gap Estim Creat Clear Calc Estimated GFR POC Glucose 271 H 310 H 298 H Random Glucose Calcium 12/07/21 12/07/21 12/07/21 05:54 05:54 07:25 MCV 89.3 MCH 28.3 MCHC 31.8 RDW 14.7 Plt Count 155 L MPV 11.9 Absolute Nucleated RBC 0.000 Nucleated RBC % (auto) 0.0 Anion Gap 9 L Estim Creat Clear Calc 113.1 Estimated GFR > 60 POC Glucose 210 H Random Glucose 231 H Calcium 8.8 Microbiology Microbiology Results: Microbiology 06/13/21 18:42 Urine Culture - Preliminary Urine Catheterized - Molina Catheter Escherichia coli 06/13/21 18:31 Blood Culture - Preliminary Blood - Venous No growth after 24 hours. 06/13/21 18:16 Blood Culture - Preliminary Blood - Venous No growth after 24 hours. Assessment and Plan (1) Hyperglycemia: Status: Acute (2) Cellulitis: Status: Acute Assessment and Plan: 70-year-old female with past medical history as mentioned in the HPI presents to the hospital with hyperglycemia found to have cellulitis # cellulitis RLE warmth, edema, as well as erythema Continue doxycycline and cephazolin follow cultures # Bactreuria Positive nitrate with no elevated WBCs patient asymptomatic history of chronic colonizing will hold off on treating as patient asymptomatic # hyperglycemia secondary to diabetes type 2 secondary to poorly controlled diabetes and stress of infection not sure how much Lantus she takes at home Increase Lantus to 50 hemoglobin A1c low-dose sliding scale insulin diabetic diet # Pressure ulcers Stage II Local measures wound care nurse input appreciated # paroxysmal AFib continue metoprolol, as well as Eliquis DVT prophylaxis: Eliquis Quality Stroke Does the patient have a stroke diagnosis?: No VTE Prior VTE?: No VTE Risk Level:: Medical - moderate - high VTE Device Contraindication: Treatment Not Indicated VTE Drug Contraindication: N/A - Med Ordered
[2021-06-15 11:29] LABS: Glucose, Whole Blood 276 mg/dL (60-115)
[2021-06-15] MEDS: Albuterol/Iprat 2.5/0.5MG 3 ML AMPUL.NEB INHALE (14:46)
[2021-06-15 16:45] LABS: Glucose, Whole Blood 262 mg/dL (60-115)
[2021-06-15 20:36] LABS: Glucose, Whole Blood 315 mg/dL (60-115)
[2021-06-15] MEDS: Atorvastatin Calcium 20 MG TABLET PO (21:11)
[2021-06-16 03:20] VITALS: BP 154/72; PULSE 64; RESP 16; TEMP 36.1; O2SAT 93
[2021-06-16 06:53] LABS: Anion Gap 12 (12-20); Blood Urea Nitrogen 8 mg/dL (9-16); Calcium 8.9 mg/dL (8.4-10.2); Carbon Dioxide 33 mmol/L (22-29); Chloride 97 mmol/L (96-108); Creatinine Clr Calc Pharmacy 118.7; Estimated Glomerular Filt Rate > 60; Glucose Random 232 mg/dL (60-115); Potassium 3.9 mmol/L (3.3-5.1); Sodium 138 mmol/L (135-145)
[2021-06-16 07:25] VITALS: BP 163/70; PULSE 70; RESP 17; TEMP 36.1; O2SAT 93
[2021-06-16 07:27] LABS: Glucose, Whole Blood 225 mg/dL (60-115)
[2021-06-16] MEDS: Apixaban 5 MG TABLET PO (08:06)
[2021-06-16] MEDS: Metoprolol Tartrate 50 MG TABLET PO (08:06)
[2021-06-16] MEDS: Furosemide 20 MG TABLET PO (08:06)
[2021-06-16] MEDS: Aspirin Enteric Coated 81 MG TABLET.DR PO (08:06)
[2021-06-16] MEDS: Gabapentin 300 MG CAPSULE PO ×2 (08:06→17:25)
[2021-06-16] MEDS: Insulin Glargine,Hum.rec.anlog 100 UNIT/ML 10 ML VIAL 50 UNIT SUBCUT (08:06)
[2021-06-16] MEDS: lisinopriL 5 MG TABLET PO (08:06)
[2021-06-16] MEDS: Doxycycline Hyclate 100 MG in 0.9 % Sodium Chloride 250 ML 166.67 MG IV (08:07)
[2021-06-16] MEDS: Insulin Lispro 100 UNIT/ML 3 ML VIAL SUBCUT ×3 (08:07→17:33)
[2021-06-16] MEDS: 0.9 % Sodium Chloride Flush 3 ML SYRINGE IVFLUSH ×2 (08:08→17:25)
[2021-06-16] MEDS: Mineral Oil/Petrolatum,White 106 GM Tube 1 APPL TOPICAL (08:58)
[2021-06-16] MEDS: Albuterol Sulfate 90 MCG 8 GM INHALER 2 PUFF INHALE (08:58)
[2021-06-16] MEDS: Nystatin Powder 15 GM BOTTLE 1 APPL TOPICAL (08:58)
[2021-06-16] MEDS: Clotrimazole 1 % Cream 15 GM TUBE 1 APPL TOPICAL (08:59)
--- NOTE | 2021-06-16 09:48 | MHC.CLN ---
F/U DIET=DIABETIC 1800 KCAL, 2 GRAM SODIUM. WOUNDS: STAGE II COCCYX AND STAGE II LEFT BUTTOCK. SUPPLEMENT GLUCERNA BID TO PROMOTE WOUND HEALING (474 KCAL, 20 G PROTEIN). EATING 100% OF MEALS. CONTINUE CURRENT DIET/SUPPLEMENT. MONITOR INTAKE AND WOUNDS.
--- NOTE | 2021-06-16 11:09 | PM.DS ---
DS: Providers Provider Date of Service: 06/16/21 Date of admission: 06/13/21 21:38 Primary care physician: Unknown Physician DS: Diagnosis Discharge Diagnosis (1) Hyperglycemia: Status: Acute (2) Cellulitis: Status: Acute DS: Summary Hospital Course Hospital Course: patient was admitted for RLE cellulitis, was treated with doxy and cefazolin with improvement, will be discharged on 5 more days of doxycyline. she was also aqdmitted for DM with hyperglycemia, was treated with basal/bolus insulin with improvement. patient back to baseline and will be discharged home. Time Spent with Patient Time attestation: Total time spent providing and/or coordinating discharge services: Discharge coordination time: Greater than 30 minutes Quality: Stroke Does the patient have a stroke diagnosis?: No Physical Exam Vital Signs: Vital Signs: Last Vital Signs Temp 97.0 F 06/16/21 07:25 Pulse 70 06/16/21 07:25 Resp 17 06/16/21 07:25 BP 163/70 H 06/16/21 07:25 Pulse Ox 93 06/16/21 07:25 BMI result Body Mass Index 45.1 Other:?Constitutional : Alert, oriented, not in distress Neck : Normal inspection, Supple Cardiovascular : RRR, S1 S2, no lower extremity edema Respiratory : Good bilateral air entry,? no crackles, wheezes or rhonchi Gastrointestinal:? soft, lax, Normal bowel sounds, Non tender Skin : Warm, Dry, left lower extremity chronic stasis dermatitis findings associated with increased erythema, warmth and swelling with no clear drainage.? Pressure ulcers in the buttock area stage 2-3 Neurological : Alert & oriented x3, No focal deficit DS: Data Data Completed and Pending Completed studies during hospitalization [Text1]: Procedures Excision of Large Intestine, Via Natural or Artificial Opening Endoscopic, Diagnostic (09/20/20) Labs on day of discharge: Laboratory Results - last 24 hr 06/15/21 06/15/21 06/15/21 11:05 16:35 20:23 Sodium Potassium Chloride Carbon Dioxide Anion Gap BUN Creatinine Estim Creat Clear Calc Estimated GFR POC Glucose 276 H 262 H 315 H Random Glucose Calcium 06/16/21 06/16/21 05:57 07:22 Sodium 138 Potassium 3.9 Chloride 97 Carbon Dioxide 33 H Anion Gap 12 BUN 8 L Creatinine 0.61 Estim Creat Clear Calc 118.7 Estimated GFR > 60 POC Glucose 225 H Random Glucose 232 H Calcium 8.9 Preliminary micro results at discharge 06/13/21 18:31 Blood Culture - Preliminary Blood - Venous No growth after 48 hours. 06/13/21 18:16 Blood Culture - Preliminary Blood - Venous No growth after 48 hours. Discharge Plan Discharge Patient Disposition: Home Health Service Discharge Diagnosis: cellulitis Referrals: Physician,Unknown J [Primary Care Provider] - 1 Week Discharge Medications: New doxycycline hyclate 100 mg capsule 100 mg PO BID Qty: 10 RF: 0 Continued Flovent Diskus 50 mcg/actuation blister with device 1 inh inhalation BID RF: 0 ipratropium-albuterol 0.5 mg-3 mg(2.5 mg base)/3 mL solution for nebulization 1 vial inhalation Q4-6H PRN (Reason: Wheezing) RF: 0 aspirin 81 mg tablet,delayed release (DR/EC) 1 tab PO DAILY RF: 0 simvastatin 40 mg tablet 1 tab PO BEDTIME RF: 0 metoprolol tartrate 50 mg tablet 1 tab PO BID RF: 0 gabapentin 300 mg capsule 1 cap PO TID RF: 0 lisinopril 5 mg tablet 1 tab PO DAILY RF: 0 insulin lispro [Humalog U-100 Insulin] 100 unit/mL solution See Protocol sliding scale dose subcut BIDAC RF: 0 albuterol sulfate [Proventil HFA] 90 mcg/actuation HFA aerosol inhaler 2 puff inhalation Q4-6H PRN (Reason: Wheezing) RF: 0 Lantus Solostar U-100 Insulin 100 unit/mL (3 mL) insulin pen 63 unit subcut DAILY RF: 0 Eliquis 5 mg tablet 1 tab PO BID RF: 0 furosemide 20 mg tablet 1 tab PO DAILY RF: 0 clotrimazole-betamethasone 1-0.05 % cream 1 appl topical BID 14 Days Qty: 45 RF: 0 nystatin [Nyamyc] 100,000 unit/gram powder 1 appl topical BID Qty: 60 RF: 0 Discharge Orders: Discharge Order (Routine); Ordered 06/16/21 Ordered By: Joseph Kirkpatrick Diet: advance to usual diet Activity on Discharge: As tolerated Stand Alone Forms: Patient Portal Discharge page Care Plan Goals: recovery Health Concerns: cellulitis Plan of Treatment: doxy 5 more days Assessment: see above
[2021-06-16 11:30] LABS: Glucose, Whole Blood 296 mg/dL (60-115)
[2021-06-16 11:54] VITALS: BP 160/78; PULSE 74; RESP 18; TEMP 36.1; O2SAT 93
--- NOTE | 2021-06-16 12:22 | MHC.CM.PN ---
rosangela facilities project manager's, prime facilities project manager's and care tenders vna were all notified patient is being dc'd home today at 5 pm. a facilities project manager will be waiting for her at her apt to settle her in. the vna was notified that pt's rx for abx was sent to [facility]. pt is also aware. transportation home via [facility]. r.n. is aware of dc plan. cm to cont. to follow.
[2021-06-16] MEDS: Albuterol/Iprat 2.5/0.5MG 3 ML AMPUL.NEB INHALE (13:41)
[2021-06-16 17:03] LABS: Glucose, Whole Blood 312 mg/dL (60-115)
== END 2021-06-16 18:45 | disposition home health service (06) | DRG 603 ==
LOC: HO.ED 18:03 → HO.EDOVER 21:55 → HO.S3 06-14 14:20
PROVIDERS: Emergency Medicine; Student in an Organized Health Care Education/Training Program; Admitting Provider Internal Medicine; Emergency Provider Emergency Medicine Emergency Medical Services; Visit Provider Internal Medicine
DX: L03.116 Cellulitis of left lower limb (principal); E11.65 Type 2 diabetes mellitus with hyperglycemia; I48.0 Paroxysmal atrial fibrillation; L89.302 Pressure ulcer of unspecified buttock, stage 2; Z20.822 Contact with and (suspected) exposure to COVID-19; Z87.440 Personal history of urinary (tract) infections; Z79.4 Long term (current) use of insulin; Z79.82 Long term (current) use of aspirin; Z79.01 Long term (current) use of anticoagulants; Z79.899 Other long term (current) drug therapy
CPT/HCPCS: 36415; 71045; 71260; 80048; 80053; 81001; 82009; 82947; 83036; 83605; 84484; 85025; 85027; 87040; 87086; 87088; 87186; 87635; 93005; 94640; 96361; 96365; 96374; 99284; 99285; J0690; J1650; Q9967

== ENCOUNTER 2021-07-17 19:19 | Inpatient (IN) | payer MEDICARE, MEDICAID, SELFPAY ==
--- NOTE | ~2021-07-17 | CT_ITS ---
EXAMINATION: CT HEAD WITHOUT CONTRAST CLINICAL INFORMATION: Confusion COMPARISON: 09.20.2020 TECHNIQUE: Contiguous axial imaging was performed from the skull base to vertex without intravenous administration of contrast. This CT examination was performed using dose optimization techniques as appropriate, variously including the following: *Automated exposure control *Adjustment of mA and/or kV according to patient size (this includes techniques or standardized protocols for targeted exams where dose is matched to indication/reason for exam; i.e. extremities or head) *Use of iterative reconstruction technique DLP: 869 mGy-cm FINDINGS: There is no evidence of acute intracranial hemorrhage or territorial infarction. No abnormal mass effect or midline shift is seen. [place] to white matter differentiation is well preserved. No extra-axial fluid collections are identified. The ventricles are normal in size. Chronic right occipital lobe infarct. The osseous structures and soft tissues are normal. The mastoid air cells and visualized portions of the paranasal sinuses are well aerated. Intraocular silicone redemonstrated within the left globe, with prosthesis anterior to the globe. CT/CT head/brain wo con IMPRESSION: No acute intracranial pathology.
--- NOTE | ~2021-07-17 | XR_ITS ---
EXAMINATION: XR CHEST CLINICAL INFORMATION: Weakness COMPARISON: Chest radiograph chest CT 06/13/2021 TECHNIQUE: Frontal view of the chest was obtained. FINDINGS: Heart size upper limits of normal. There is some mild upper zone redistribution but no gross CHF. No infiltrates, effusions or lung masses are seen. Again seen are severe degenerative changes in the left shoulder. XR/XR chest 1V IMPRESSION: There may be some mild pulmonary vascular congestion with upper zone redistribution. Otherwise exam is negative
--- NOTE | ~2021-07-17 | XR_ITS ---
EXAMINATION: XR SHOULDER, RIGHT CLINICAL INFORMATION: Pain COMPARISON: Previous chest x-ray 07/17/[address] 06/13/2022 TECHNIQUE: Two views of the right shoulder. FINDINGS: There is severe arthritis at the glenohumeral joint. There is overlap of the glenoid and humeral head on the AP view. Y view is limited due to patient positioning. It is difficult to exclude anterior position of the humeral head with respect to the glenoid. No fracture is seen. There is mild arthritis at the acromioclavicular joint. Soft tissues are unremarkable. XR/XR shoulder RT min 2V IMPRESSION: Severe arthritis at the glenohumeral joint. Cannot exclude anterior position of the right humeral head with respect to the glenoid. Additional imaging, transaxillary view if possible, would be recommended if clinically indicated.
--- NOTE | ~2021-07-17 | CT_ITS ---
EXAMINATION: CT ABDOMEN AND PELVIS WITHOUT CONTRAST CLINICAL INFORMATION: Abdominal pain with nausea, vomiting and diarrhea COMPARISON: CT abdomen pelvis 09/20/[address] abdomen pelvis 08/05/2019 TECHNIQUE: Multidetector volumetric imaging was performed from the superior aspect of the liver through the pubic symphysis. Sagittal and coronal reformatted images were obtained on the technologist's workstation. This CT examination was performed using dose optimization techniques as appropriate, variously including the following: *Automated exposure control *Adjustment of mA and/or kV according to patient size (this includes techniques or standardized protocols for targeted exams where dose is matched to indication/reason for exam; i.e. extremities or head) *Use of iterative reconstruction technique DLP: 1265 mGy-cm FINDINGS: LUNG BASES: Some mild dependent groundglass changes seen. Marked calcification of the mitral annulus is present. Heart size normal. LIVER, GALLBLADDER, AND BILIARY TREE: The liver is normal in size, shape, and attenuation. A 4 cm hypoattenuating lesion present just behind the caudate lobe which demonstrated peripheral fill-in on the 08/05/2019 study consistent with cavernous hemangioma. This is unchanged in size. No other focal hepatic lesion or biliary ductal dilatation is present. The gallbladder contains layering high density material that was also present on prior exams but not mentioned. The gallbladder is otherwise unremarkable with no evidence of gallbladder wall thickening or obvious pericholecystic inflammatory changes. PANCREAS: Unremarkable. SPLEEN: Unremarkable. ADRENAL GLANDS: Unremarkable. KIDNEYS AND URETERS: The kidneys are normal in size, shape, and attenuation. A small punctate nonobstructing calcification is again seen in the left kidney (4:117). No hydronephrosis, hydroureter, or other calculi seen. No perinephric stranding. BLADDER: Molina catheter is present in the bladder which is not empty.. GASTROINTESTINAL TRACT: The previously seen edematous changes in the descending colon have cleared. There is some mild similar changes around the distal sigmoid colon for short segment (3:52). Findings could represent a small focus of diverticulitis or possibly colitis. The small and large bowel are otherwise unremarkable. The appendix is unremarkable. ABDOMINAL WALL: No significant hernia is appreciated. LYMPH NODES: No retroperitoneal lymphadenopathy. VASCULAR: Marked calcific changes present in the aorta and iliofemoral vessels. PELVIC VISCERA: An anteverted uterus is present. Left adnexal mass present measuring 6.5 x 4.2 x 6.1 cm. The mass contains calcifications as well as an area of fat seen previously which may represent a dermoid. Pelvic ultrasound is recommended for further evaluation as previously recommended. No free fluid is present. OSSEOUS STRUCTURES: Again seen are severe degenerative changes both hips as well as spine. CT/CT abdomen pelvis wo con IMPRESSION: 1. Clearing of previous changes of colitis with development of one new focal area inflammatory changes around very short segment of distal sigmoid colon. Findings could represent a small focus of colitis or possibly mild diverticulitis. 2. Incidental note made of cholelithiasis without cholecystitis, Molina catheter in the bladder, left adnexal mass which was previously shown to contain calcification and fat and other findings described above. Ultrasound could be performed for further evaluation of the adnexal mass is recommended previously. Fleischner guidelines were followed.
[2021-07-17 19:38] VITALS: BP 136/85; PULSE 84; RESP 16; TEMP 36.8; O2SAT 95; BMI 61.8
--- NOTE | 2021-07-17 20:26 | ECG_ITS ---
Test Reason : general medical Blood Pressure : / mmHG Vent. Rate : 077 BPM Atrial Rate : 077 BPM P-R Int : 184 ms QRS Dur : 100 ms QT Int : 388 ms P-R-T Axes : 026 000 088 degrees QTc Int : 439 ms Sinus rhythm with Premature supraventricular complexes Minimal voltage criteria for LVH, may be normal variant ( Daniel product ) Septal infarct (cited on or before 17-JUL-2021) Abnormal ECG When compared with ECG of 13-JUN-2021 15:37, Premature supraventricular complexes are now Present MD interval has decreased Questionable change in initial forces of Septal leads Referred By: Gaudencio Duke Electronically Signed By:CAMERON HO MD
--- NOTE | 2021-07-17 20:27 | ED.NAVMDI ---
HPI - Nausea/Vomiting/Diarrhea General Chief complaint: Nausea/Vomiting/Diarrhea Stated complaint: NAUSEA AND VOMITING Time Seen by Provider: 07/17/21 19:53 Source: patient and EMS Mode of arrival: EMS Limitations: no limitations History of Present Illness HPI Narrative: 70-year-old female history of insulin dependence, patient is normally bed ridden lives home with VNA mainly hours daily to help the patient with her daily activity and monitor her blood sugar, patient mainly been having nonbloody watery diarrhea which is unusual for the patient patient admitted to using antibiotic 3 weeks ago for which she called [facility] infection, today patient had some nausea and vomiting, patient declined any abdominal pain. Related Data Home Medications Medication Instructions Recorded Confirmed albuterol sulfate 90 mcg/actuation 2 puff INHALATION Q4-6H PRN 01/23/21 06/13/21 aerosol inhaler (Proventil HFA) apixaban 5 mg tablet (Eliquis) 1 tab PO BID 01/23/21 06/13/21 aspirin 81 mg tablet,delayed 1 tab PO DAILY 01/23/21 06/13/21 release fluticasone propionate 50 1 inh INHALATION BID 01/23/21 06/13/21 mcg/actuation blister powder for inhalation (Flovent Diskus) gabapentin 300 mg capsule 1 cap PO TID 01/23/21 06/13/21 insulin glargine 100 unit/mL (3 63 unit SUBCUT DAILY 01/23/21 06/14/21 mL) subcutaneous pen (Lantus Solostar U-100 Insulin) insulin lispro 100 unit/mL See Protocol SUBCUT BIDAC 01/23/21 06/13/21 subcutaneous solution (Humalog U-100 Insulin) ipratropium 0.5 mg-albuterol 3 mg 1 vial INHALATION Q4-6H PRN 01/23/21 06/13/21 (2.5 mg base)/3 mL nebulization soln lisinopril 5 mg tablet 1 tab PO DAILY 01/23/21 06/13/21 metoprolol tartrate 50 mg tablet 1 tab PO BID 01/23/21 06/13/21 simvastatin 40 mg tablet 1 tab PO BEDTIME 01/23/21 06/13/21 furosemide 20 mg tablet 1 tab PO DAILY 05/04/21 06/13/21 Previous Rx's Medication Instructions Recorded clotrimazole-betamethasone 1 1 appl TOPICAL BID 14 Days #45 g 05/28/21 %-0.05 % topical cream nystatin 100,000 unit/gram topical 1 appl TOPICAL BID #60 g 06/11/21 powder (Nyamy) doxycycline hyclate 100 mg capsule 100 mg PO BID #10 cap 06/16/21 Allergies Allergy/AdvReac Type Severity Reaction Status Date / Time silver sulfadiazine Allergy Unknown UNK Verified 06/11/21 14:55 [facility] Review of Systems Review of Systems: All other systems are reviewed and are negative Constitutional: Reports as per HPI and Reports no additional constitutional complaints Eyes: Reports as per HPI and Reports no additional eye complaints Reports system reviewed and no additional complaints, except as documented Cardiovascular: Reports as per HPI and Reports no additional cardiovascular complaints Respiratory: Reports as per HPI and Reports no additional respiratory complaints Gastrointestinal: Reports as per HPI and Reports no additional gastrointestinal complaints Genitourinary: Reports no additional female genitourinary complaints Musculoskeletal: Reports no additional musculoskeletal complaints Skin/Breast: Reports system reviewed and no additional complaints, except as docu Psychiatric: Reports no additional psychiatric complaints Endocrine: Reports no additional endocrine complaints Hematologic/Lymphatic: Reports no additional hematologic/lymphatic complaints Allergic/Immunologic: Reports no additional allergic/immunologic complaints Reports system reviewed and no additional complaints, except as documented and Reports Abnormal speech present [facility] Past Medical History Medical History Aortic stenosis Chronic indwelling Molina catheter Chronic UTI Congestive heart failure COPD (chronic obstructive pulmonary disease) Diabetes Glaucoma H/O: CVA (cerebrovascular accident) Hypertension Obesity Osteoarthritis Paroxysmal atrial fibrillation Severe sepsis Surgical History H/O adenoidectomy H/O enucleation of left eyeball History of tonsillectomy Social History Social History Household Members: None Housing: Apartment Do you presently have visiting nurse or other home services: Yes Unable to assess alcohol history related to: Unknown Alcohol intake: never Patient Tobacco Use Status: Never used Tobacco Second Hand Smoke Exposure: No Advance Directives: Yes Advance Directives on File: Yes Advance Directives Date on File: 07/09/20 service: No Current occupational status: disabled Physical Exam Vital Signs: Vital Signs: Last Vital Signs Temp 98.7 F 07/17/21 22:38 Pulse 86 07/17/21 22:38 Resp 20 07/17/21 22:38 BP 135/63 07/17/21 22:38 Pulse Ox 95 07/17/21 22:38 BMI result Body Mass Index 61.8 Vital signs have been reviewed as appeared to be correct. Blood pressure normal. Heart rate normal. Respiration rate normal. Temperature normal. Oxygen saturation normal. Appearance: Alert. Oriented X3. No acute distress. Head: Normal external exam. Normocephalic. Atraumatic. No [place] signs noted. No raccoon eyes noted Eyes: PERRLA. EOMI. Conjunctiva and sclera normal. Eyelids normal. ENT: TM's Normal. Pharynx normal. Uvula midline. Moist mucous membranes. No trismus noted. No drooling noted. No muffled voice noted. Neck: Normal inspection. Neck supple. FROM. No adenopathy. Thyroid Normal. No meningeal signs. No neck mass noted. CVS: Normal heart rate and rhythm. Heart sound normal. No murmurs noted. Pulses normal throughout. Respiratory: No respiratory distress. Painless inspiration. Breath sounds normal. No wheezes/rales/rhonchi noted. Chest nontender. No accessory muscle usage noted or decreased air movement noted. Abdomen: Soft, obese, nontender. Bowel sounds normal in all 4 quadrants. No distention noted. No organomegaly noted. No visible injury noted. Rectal exam: Bright red blood mixed with loose brown stool. Back: No CVA tenderness. Full range of motion noted. Skin: Skin warm and dry. Normal skin color. Normal skin turgor. No rashes/lesions/lacerations noted. Extremities: No lower extremity edema. Extremities exhibit normal range of motion. Extremities nontender. Neuro: Oriented X 3. Cranial nerve exam: II-XII are grossly intact No motor deficit. No sensory deficit. Reflexes normal. Course Course Course Narrative: Assessment and plan. 1. 70-year-old female came from home for diarrhea, vomiting, patient had used antibiotic for cellulitis 3 weeks ago as per patient's history, stool was mixed with bright red blood. CT is concern of focal area of colitis. Testing for C diff still pending, patient do not meet criteria for SIRS, will cover with empirical oral vancomycin. 2. Hyperglycemia will hydrate and give boluses of insulin. 3. Patient with chronic indwelling Molina catheter with chronic UTI will not treat the chronic UTI. MDM - Nausea/Vomiting/Diarrhea Medical Records Attestation: I reviewed the patient's medical records. Lab Data Attestation: I reviewed the patient's lab results. Result diagrams: 07/17/21 21:00 07/17/21 21:00 Labs: Lab Results 07/17/21 07/17/21 07/17/21 Range/Units 20:05 21:00 21:00 WBC 15.9 H (4.8-10.8) X10*3/uL RBC 6.22 H D (4.20-5.50) X10*6/uL Hgb 17.4 H D (12.0-16.0) g/dl Hct 54.7 H D (37.0-47.0) % MCV 87.9 (80.0-98.0) fL MCH 28.0 (27.0-33.0) pg MCHC 31.8 (31.0-35.0) g/dl RDW 16.0 (11.0-16.0) % Plt Count 159 L (160-400) X10*3/uL MPV 11.1 (9.4-12.3) fL Immature Gran % (Auto) 0.4 (0.0-0.4) % Neut % (Auto) 89.7 H (45-73) % Lymph % (Auto) 5.5 L (20-40) % [place] % (Auto) 3.6 (2-11) % Eos % (Auto) 0.6 (0-4) % Baso % (Auto) 0.2 (0-2) % Lymph # (Auto) 0.9 L (1.2-4.9) X10*3/uL [place] # (Auto) 0.6 (0.1-1.2) X10*3/uL Eos # (Auto) 0.1 (0.0-0.4) X10*3/uL Baso # (Auto) 0.0 (0.0-0.2) X10*3/uL Abs Immat Gran (auto) 0.07 H (0.00-0.03) X10*3/uL Absolute Neuts (auto) 14.3 H (2.0-8.3) x10*3/uL Absolute Nucleated RBC 0.000 (0.0-0.012) X10*3/uL Nucleated RBC % (auto) 0.0 (0.0-0.2) /100WBC Sodium 136 (135-145) mmol/L Potassium 4.4 (3.3-5.1) mmol/L Chloride 97 (96-108) mmol/L Carbon Dioxide 30 H (22-29) mmol/L Anion Gap 13 (12-20) BUN 22 H D (9-16) mg/dL Creatinine 1.37 (0.5-1.4) mg/dL Estim Creat Clear Calc 60.0 Estimated GFR 38 POC Glucose 363 H* (60-115) mg/dL Random Glucose 350 H* (60-115) mg/dL Calcium 9.6 D (8.4-10.2) mg/dL Total Bilirubin 0.7 (0.0-1.0) mg/dL Direct Bilirubin 0.3 (0.0-0.5) mg/dL AST 27 D (5-31) U/L ALT 20 (0-31) U/L Alkaline Phosphatase 217 H D (39-117) U/L Troponin I High Sens (<3.5-17.0) ng/L B-Natriuretic Peptide (<100) pg/mL Total Protein 6.9 (6.5-8.0) g/dL Albumin 3.7 (3.5-5.0) g/dL Lipase 9 (8-78) U/L Urine Color Urine Appearance Urine pH (5.0-8.0) Ur Specific [place] (1.005-1.025) Urine Protein (NEG-TRACE) MG/DL Urine Glucose (UA) (NEG) MG/DL Urine Ketones (NEG) MG/DL Urine Blood (NEG) Urine Nitrite (NEG) Ur Leukocyte Esterase (NEG) Urine RBC (0) /HPF Urine WBC (0-4) /HPF Ur Squamous Epith Cells /LPF Calcium Oxalate Crystal /LPF Leucine Crystals /LPF Triple Phos Crystals /LPF Amorphous Sediment /LPF Urine Bacteria /LPF Stool Occult Blood (NEGATIVE) Influenza Type A (PCR) (Negative) Influenza Type B (PCR) (Negative) RSV RNA Qual (PCR) (Negative) SARS-CoV-2 RNA (RT-PCR) (Negative) 07/17/21 07/17/21 07/17/21 Range/Units 21:00 21:00 21:00 WBC (4.8-10.8) X10*3/uL RBC (4.20-5.50) X10*6/uL Hgb (12.0-16.0) g/dl Hct (37.0-47.0) % MCV (80.0-98.0) fL MCH (27.0-33.0) pg MCHC (31.0-35.0) g/dl RDW (11.0-16.0) % Plt Count (160-400) X10*3/uL MPV (9.4-12.3) fL Immature Gran % (Auto) (0.0-0.4) % Neut % (Auto) (45-73) % Lymph % (Auto) (20-40) % [place] % (Auto) (2-11) % Eos % (Auto) (0-4) % Baso % (Auto) (0-2) % Lymph # (Auto) (1.2-4.9) X10*3/uL [place] # (Auto) (0.1-1.2) X10*3/uL Eos # (Auto) (0.0-0.4) X10*3/uL Baso # (Auto) (0.0-0.2) X10*3/uL Abs Immat Gran (auto) (0.00-0.03) X10*3/uL Absolute Neuts (auto) (2.0-8.3) x10*3/uL Absolute Nucleated RBC (0.0-0.012) X10*3/uL Nucleated RBC % (auto) (0.0-0.2) /100WBC Sodium (135-145) mmol/L Potassium (3.3-5.1) mmol/L Chloride (96-108) mmol/L Carbon Dioxide (22-29) mmol/L Anion Gap (12-20) BUN (9-16) mg/dL Creatinine (0.5-1.4) mg/dL Estim Creat Clear Calc Estimated GFR POC Glucose (60-115) mg/dL Random Glucose (60-115) mg/dL Calcium (8.4-10.2) mg/dL Total Bilirubin (0.0-1.0) mg/dL Direct Bilirubin (0.0-0.5) mg/dL AST (5-31) U/L ALT (0-31) U/L Alkaline Phosphatase (39-117) U/L Troponin I High Sens 16.2 D (<3.5-17.0) ng/L B-Natriuretic Peptide 65 (<100) pg/mL Total Protein (6.5-8.0) g/dL Albumin (3.5-5.0) g/dL Lipase (8-78) U/L Urine Color Urine Appearance Urine pH (5.0-8.0) Ur Specific [place] (1.005-1.025) Urine Protein (NEG-TRACE) MG/DL Urine Glucose (UA) (NEG) MG/DL Urine Ketones (NEG) MG/DL Urine Blood (NEG) Urine Nitrite (NEG) Ur Leukocyte Esterase (NEG) Urine RBC (0) /HPF Urine WBC (0-4) /HPF Ur Squamous Epith Cells /LPF Calcium Oxalate Crystal /LPF Leucine Crystals /LPF Triple Phos Crystals /LPF Amorphous Sediment /LPF Urine Bacteria /LPF Stool Occult Blood (NEGATIVE) Influenza Type A (PCR) NEGATIVE (Negative) Influenza Type B (PCR) NEGATIVE (Negative) RSV RNA Qual (PCR) NEGATIVE (Negative) SARS-CoV-2 RNA (RT-PCR) NEGATIVE (Negative) 07/17/21 07/17/21 07/17/21 Range/Units 21:00 22:25 22:29 WBC (4.8-10.8) X10*3/uL RBC (4.20-5.50) X10*6/uL Hgb (12.0-16.0) g/dl Hct (37.0-47.0) % MCV (80.0-98.0) fL MCH (27.0-33.0) pg MCHC (31.0-35.0) g/dl RDW (11.0-16.0) % Plt Count (160-400) X10*3/uL MPV (9.4-12.3) fL Immature Gran % (Auto) (0.0-0.4) % Neut % (Auto) (45-73) % Lymph % (Auto) (20-40) % [place] % (Auto) (2-11) % Eos % (Auto) (0-4) % Baso % (Auto) (0-2) % Lymph # (Auto) (1.2-4.9) X10*3/uL [place] # (Auto) (0.1-1.2) X10*3/uL Eos # (Auto) (0.0-0.4) X10*3/uL Baso # (Auto) (0.0-0.2) X10*3/uL Abs Immat Gran (auto) (0.00-0.03) X10*3/uL Absolute Neuts (auto) (2.0-8.3) x10*3/uL Absolute Nucleated RBC (0.0-0.012) X10*3/uL Nucleated RBC % (auto) (0.0-0.2) /100WBC Sodium (135-145) mmol/L Potassium (3.3-5.1) mmol/L Chloride (96-108) mmol/L Carbon Dioxide (22-29) mmol/L Anion Gap (12-20) BUN (9-16) mg/dL Creatinine (0.5-1.4) mg/dL Estim Creat Clear Calc Estimated GFR POC Glucose 285 H (60-115) mg/dL Random Glucose (60-115) mg/dL Calcium (8.4-10.2) mg/dL Total Bilirubin (0.0-1.0) mg/dL Direct Bilirubin (0.0-0.5) mg/dL AST (5-31) U/L ALT (0-31) U/L Alkaline Phosphatase (39-117) U/L Troponin I High Sens (<3.5-17.0) ng/L B-Natriuretic Peptide (<100) pg/mL Total Protein (6.5-8.0) g/dL Albumin (3.5-5.0) g/dL Lipase (8-78) U/L Urine Color YELLOW Urine Appearance TURBID Urine pH 7.5 (5.0-8.0) Ur Specific [place] 1.020 (1.005-1.025) Urine Protein 1+ H (NEG-TRACE) MG/DL Urine Glucose (UA) NEG (NEG) MG/DL Urine Ketones NEG (NEG) MG/DL Urine Blood 3+ H (NEG) Urine Nitrite POS H (NEG) Ur Leukocyte Esterase 3+ H (NEG) Urine RBC 15-29 H (0) /HPF Urine WBC 15-29 H (0-4) /HPF Ur Squamous Epith Cells 2+ /LPF Calcium Oxalate Crystal TRACE /LPF Leucine Crystals TRACE /LPF Triple Phos Crystals 1+ /LPF Amorphous Sediment 2+ /LPF Urine Bacteria 4+ /LPF Stool Occult Blood POSITIVE (NEGATIVE) Influenza Type A (PCR) (Negative) Influenza Type B (PCR) (Negative) RSV RNA Qual (PCR) (Negative) SARS-CoV-2 RNA (RT-PCR) (Negative) Imaging Data Chest x-ray: Attestation: I personally reviewed and interpreted this imaging study as follows: Radiologist's impression: There may be some mild pulmonary vascular congestion with upper zone redistribution. Otherwise exam is negative ? CT scan - abdomen: Attestation: I personally reviewed and interpreted this imaging study as follows: Radiologist's impression: 1. .? Clearing of previous changes of colitis with development of one new focal area inflammatory changes around very short segment of distal sigmoid colon. Findings could represent a small focus of colitis or possibly mild diverticulitis. 2.? Incidental note made of cholelithiasis without cholecystitis, Molina catheter in the bladder, left adnexal mass which was previously shown to contain calcification and fat and other findings described above. Ultrasound could be performed for further evaluation of the adnexal mass is recommended previously. ? Discharge Plan Discharge Clinical Impression: Colitis, Acute hyperglycemia, Chronic UTI Patient Disposition: Admitted As Inpatient Prescriptions: No Action Flovent Diskus 50 mcg/actuation blister with device 1 inh inhalation BID RF: 0 ipratropium-albuterol 0.5 mg-3 mg(2.5 mg base)/3 mL solution for nebulization 1 vial inhalation Q4-6H PRN (Reason: Wheezing) RF: 0 aspirin 81 mg tablet,delayed release (DR/EC) 1 tab PO DAILY RF: 0 simvastatin 40 mg tablet 1 tab PO BEDTIME RF: 0 metoprolol tartrate 50 mg tablet 1 tab PO BID RF: 0 gabapentin 300 mg capsule 1 cap PO TID RF: 0 lisinopril 5 mg tablet 1 tab PO DAILY RF: 0 insulin lispro [Humalog U-100 Insulin] 100 unit/mL solution See Protocol sliding scale dose subcut BIDAC RF: 0 albuterol sulfate [Proventil HFA] 90 mcg/actuation HFA aerosol inhaler 2 puff inhalation Q4-6H PRN (Reason: Wheezing) RF: 0 Lantus Solostar U-100 Insulin 100 unit/mL (3 mL) insulin pen 63 unit subcut DAILY RF: 0 Eliquis 5 mg tablet 1 tab PO BID RF: 0 furosemide 20 mg tablet 1 tab PO DAILY RF: 0 clotrimazole-betamethasone 1-0.05 % cream 1 appl topical BID 14 Days Qty: 45 RF: 0 nystatin [Nyamyc] 100,000 unit/gram powder 1 appl topical BID Qty: 60 RF: 0 doxycycline hyclate 100 mg capsule 100 mg PO BID Qty: 10 RF: 0
--- NOTE | 2021-07-17 20:32 | PC.NURSE ---
pt incontinent of tool, pt report [employer] are not coming to feed her or assisting to the toilet. pt had erika-care and bed change. stool sample collected. Pt having watery bloody stool. Will notified provider.
[2021-07-17 21:04] LABS: MANUAL DIFF FLAG NO
[2021-07-17] MEDS: 0.9 % Sodium Chloride 1,000 ML 999 ML IV ×2 (21:06→23:40)
[2021-07-17 21:07] LABS: Basophils Percent Auto 0.2 % (0-2); Eosinophils Absolute Auto 0.1 X10*3/uL (0.0-0.4); Eosinophils Percent Auto 0.6 % (0-4); Hematocrit 54.7 % (37.0-47.0); Hemoglobin 17.4 g/dl (12.0-16.0); Imm Gran Abs Auto 0.07 X10*3/uL (0.00-0.03); Imm Gran Pct Auto 0.4 % (0.0-0.4); Lymphocytes Absolute Auto 0.9 X10*3/uL (1.2-4.9); Lymphocytes Percent Auto 5.5 % (20-40); Mean Corpuscular HGB Conc 31.8 g/dl (31.0-35.0); Mean Corpuscular Volume 87.9 fL (80.0-98.0); Mean Platelet Volume 11.1 fL (9.4-12.3); Monocytes Absolute Auto 0.6 X10*3/uL (0.1-1.2); Monocytes Percent Auto 3.6 % (2-11); Neutrophils Absolute Auto 14.3 x10*3/uL (2.0-8.3); Neutrophils Percent Auto 89.7 % (45-73); Platelet Count 159 X10*3/uL (160-400); Red Blood Count 6.22 X10*6/uL (4.20-5.50); White Blood Count 15.9 X10*3/uL (4.8-10.8)
[2021-07-17 21:23] LABS: Alanine Aminotransferase 20 U/L (0-31); Albumin Level 3.7 g/dL (3.5-5.0); Alkaline Phosphatase 217 U/L (39-117); Anion Gap 13 (12-20); Aspartate Amino Transferase 27 U/L (5-31); Bilirubin Direct 0.3 mg/dL (0.0-0.5); Bilirubin Total 0.7 mg/dL (0.0-1.0); Blood Urea Nitrogen 22 mg/dL (9-16); Calcium 9.6 mg/dL (8.4-10.2); Carbon Dioxide 30 mmol/L (22-29); Chloride 97 mmol/L (96-108); Estimated Glomerular Filt Rate 38; Glucose Random 350 mg/dL (60-115); Lipase 9 U/L (8-78); Potassium 4.4 mmol/L (3.3-5.1); Sodium 136 mmol/L (135-145); Total Protein 6.9 g/dL (6.5-8.0)
[2021-07-17 21:24] LABS: OBS1 POSITIVE (NEGATIVE)
[2021-07-17 21:25] LABS: OBS Int Ctl Valid YES
[2021-07-17 21:27] LABS: B Type Natriuretic Peptide 65 pg/mL (<100); Troponin-I High Sensitivity 16.2 ng/L (<3.5-17.0)
[2021-07-17 21:44] LABS: Influenza A PCR NEGATIVE (Negative); Influenza B PCR NEGATIVE (Negative); Resp Syncy Virus RNA Qual PCR NEGATIVE (Negative); SARS COV2 PCR INHOUSE NEGATIVE (Negative)
[2021-07-17 22:15] LABS: Glucose, Whole Blood 363 mg/dL (60-115)
[2021-07-17 22:33] LABS: Glucose, Whole Blood 285 mg/dL (60-115)
[2021-07-17 22:34] LABS: Appearance Urine TURBID; Color Urine YELLOW; Glucose Urine UA NEG (NEG); Leukocyte Esterase Urine 3+ (NEG); Nitrite Urine POS (NEG); PH 7.5 (5.0-8.0); UACC Culture Trigger YES; Urine Blood 3+ (NEG); Urine Ketones NEG (NEG); Urine Protein 1+ MG/DL (NEG-TRACE)
[2021-07-17 22:38] VITALS: BP 135/63; PULSE 86; RESP 20; TEMP 37.1; O2SAT 95
[2021-07-17 22:46] LABS: Amorphous Sediment Urine 2+ /LPF; Bacteria Urine 4+ /LPF; Calcium Oxalate Crystals Urine TRACE /LPF; Squamous Epithelial Cell Urine 2+ /LPF; Triple Phosphate Crystal Urine 1+ /LPF
[2021-07-17 22:47] LABS: Leucine Crystal TRACE /LPF
--- NOTE | 2021-07-17 23:33 | PM.IMHP ---
History of Present Illness Date of Service: 07/17/21 Chief Complaint: diarrhea 70-year-old female with a past medical history of hypertension, hyperlipidemia, aortic stenosis, diabetes, obesity, osteoarthritis, paroxysmal AFib, CHF, history of CVA, COPD, history of chronic indwelling Molina, recurrent UTI; recent admission to the hospital for right lower extremity cellulitis presented to the hospital with a chief complaint of nausea vomiting and diarrhea. Patient reports that over the past few days he has been having nausea vomiting and diarrhea; loose watery and foul smelling; denies any bright red blood per rectum at home; denies any abdominal discomfort. Denies any chest pain palpitations lightheadedness or dizziness. Review of all other systems is negative except mentioned above ER course: Per ER team patient in the ER noted to have foul-smelling loose watery stool, followed by had an episode of bowel movement with blood mixed with stool; bright red blood; CT scan showed colitis. CD4 sent. Empirically given p.o. vancomycin. Admitted for further management. [facility] Medical History Aortic stenosis Chronic indwelling Molina catheter Chronic UTI Congestive heart failure COPD (chronic obstructive pulmonary disease) Diabetes Glaucoma H/O: CVA (cerebrovascular accident) Hypertension Obesity Osteoarthritis Paroxysmal atrial fibrillation Severe sepsis Surgical History H/O adenoidectomy H/O enucleation of left eyeball History of tonsillectomy Social History Household Members: None Housing: Apartment Do you presently have visiting nurse or other home services: Yes Unable to assess alcohol history related to: Unknown Alcohol intake: never Patient Tobacco Use Status: Never used Tobacco Second Hand Smoke Exposure: No Advance Directives: Yes Advance Directives on File: Yes Advance Directives Date on File: 07/09/20 service: No Current occupational status: disabled Meds Allergies Allergy/AdvReac Type Severity Reaction Status Date / Time silver sulfadiazine Allergy Unknown UNK Verified 06/11/21 14:55 [From SILVADENE] Active Medications: Current Medications Acetaminophen (Acetaminophen 325 Mg Tablet) 650 mg PO Q6H PRN PRN Reason: Pain, Mild (Pain Scale 1-3) Sodium Chloride (Ns) 1,000 mls @ 999 mls/hr IV .Q1H1M ONE Stop: 07/18/21 00:06 Dextrose/Sodium Chloride (D51/2ns) 1,000 mls @ 50 mls/hr IVCONT .Q20H [facility] Melatonin (Melatonin 3 Mg Tablet) 6 mg PO BEDTIME PRN PRN Reason: Insomnia Senna (Sennosides 8.6 Mg Tablet) 17.2 mg PO BEDTIME PRN PRN Reason: Constipation Sodium Chloride (0.9 % Sodium Chloride Flush 3 Ml Syringe) 3 ml IVFLUSH QSHIFT [facility] Home Medications Medication Instructions Recorded Confirmed Last Taken Type albuterol sulfate 90 mcg/actuation 2 puff INHALATION Q4-6H PRN 01/23/21 06/13/21 Unknown History aerosol inhaler (Proventil HFA) apixaban 5 mg tablet (Eliquis) 1 tab PO BID 01/23/21 06/13/21 Unknown History aspirin 81 mg tablet,delayed 1 tab PO DAILY 01/23/21 06/13/21 Unknown History release fluticasone propionate 50 1 inh INHALATION BID 01/23/21 06/13/21 Unknown History mcg/actuation blister powder for inhalation (Flovent Diskus) gabapentin 300 mg capsule 1 cap PO TID 01/23/21 06/13/21 Unknown History insulin glargine 100 unit/mL (3 63 unit SUBCUT DAILY 01/23/21 06/14/21 Unknown History mL) subcutaneous pen (Lantus Solostar U-100 Insulin) insulin lispro 100 unit/mL See Protocol SUBCUT BIDAC 01/23/21 06/13/21 Unknown History subcutaneous solution (Humalog U-100 Insulin) ipratropium 0.5 mg-albuterol 3 mg 1 vial INHALATION Q4-6H PRN 01/23/21 06/13/21 Unknown History (2.5 mg base)/3 mL nebulization soln lisinopril 5 mg tablet 1 tab PO DAILY 01/23/21 06/13/21 Unknown History metoprolol tartrate 50 mg tablet 1 tab PO BID 01/23/21 06/13/21 Unknown History simvastatin 40 mg tablet 1 tab PO BEDTIME 01/23/21 06/13/21 Unknown History furosemide 20 mg tablet 1 tab PO DAILY 05/04/21 06/13/21 Unknown History Physical Exam Vital Signs and Narrative: Vital Signs: Last Vital Signs Temp 98.7 F 07/17/21 22:38 Pulse 86 07/17/21 22:38 Resp 20 07/17/21 22:38 BP 135/63 07/17/21 22:38 Pulse Ox 95 07/17/21 22:38 BMI result Body Mass Index 61.8 Gen: Appears be in no acute distress HEENT: NCAT, Moist mucosa. Pulmonary: Vesicular breath sounds, fair air entry CVS: Normal S1-S2 Abdomen: BS+, Soft, mildly tender diffusely Extremities: Warm well perfused Neuro: Alert and awake. Results Labs CBC and Chem 7: 07/17/21 21:00 07/17/21 21:00 Labs: Laboratory Results - last 24 hr 07/17/21 07/17/21 07/17/21 20:05 21:00 21:00 MCV 87.9 MCH 28.0 MCHC 31.8 RDW 16.0 Plt Count 159 L MPV 11.1 Immature Gran % (Auto) 0.4 Neut % (Auto) 89.7 H Lymph % (Auto) 5.5 L [place] % (Auto) 3.6 Eos % (Auto) 0.6 Baso % (Auto) 0.2 Lymph # (Auto) 0.9 L [place] # (Auto) 0.6 Eos # (Auto) 0.1 Baso # (Auto) 0.0 Abs Immat Gran (auto) 0.07 H Absolute Neuts (auto) 14.3 H Absolute Nucleated RBC 0.000 Nucleated RBC % (auto) 0.0 Anion Gap 13 Estim Creat Clear Calc 60.0 Estimated GFR 38 POC Glucose 363 H* Random Glucose 350 H* Calcium 9.6 D Total Bilirubin 0.7 Direct Bilirubin 0.3 AST 27 D ALT 20 Alkaline Phosphatase 217 H D Troponin I High Sens B-Natriuretic Peptide Total Protein 6.9 Albumin 3.7 Lipase 9 Urine Color Urine Appearance Urine pH Ur Specific [place] Urine Protein Urine Glucose (UA) Urine Ketones Urine Blood Urine Nitrite Ur Leukocyte Esterase Urine RBC Urine WBC Ur Squamous Epith Cells Calcium Oxalate Crystal Leucine Crystals Triple Phos Crystals Amorphous Sediment Urine Bacteria Stool Occult Blood Influenza Type A (PCR) Influenza Type B (PCR) RSV RNA Qual (PCR) SARS-CoV-2 RNA (RT-PCR) 07/17/21 07/17/21 07/17/21 21:00 21:00 21:00 MCV MCH MCHC RDW Plt Count MPV Immature Gran % (Auto) Neut % (Auto) Lymph % (Auto) [place] % (Auto) Eos % (Auto) Baso % (Auto) Lymph # (Auto) [place] # (Auto) Eos # (Auto) Baso # (Auto) Abs Immat Gran (auto) Absolute Neuts (auto) Absolute Nucleated RBC Nucleated RBC % (auto) Anion Gap Estim Creat Clear Calc Estimated GFR POC Glucose Random Glucose Calcium Total Bilirubin Direct Bilirubin AST ALT Alkaline Phosphatase Troponin I High Sens 16.2 D B-Natriuretic Peptide 65 Total Protein Albumin Lipase Urine Color Urine Appearance Urine pH Ur Specific [place] Urine Protein Urine Glucose (UA) Urine Ketones Urine Blood Urine Nitrite Ur Leukocyte Esterase Urine RBC Urine WBC Ur Squamous Epith Cells Calcium Oxalate Crystal Leucine Crystals Triple Phos Crystals Amorphous Sediment Urine Bacteria Stool Occult Blood Influenza Type A (PCR) NEGATIVE Influenza Type B (PCR) NEGATIVE RSV RNA Qual (PCR) NEGATIVE SARS-CoV-2 RNA (RT-PCR) NEGATIVE 07/17/21 07/17/21 07/17/21 21:00 22:25 22:29 MCV MCH MCHC RDW Plt Count MPV Immature Gran % (Auto) Neut % (Auto) Lymph % (Auto) [place] % (Auto) Eos % (Auto) Baso % (Auto) Lymph # (Auto) [place] # (Auto) Eos # (Auto) Baso # (Auto) Abs Immat Gran (auto) Absolute Neuts (auto) Absolute Nucleated RBC Nucleated RBC % (auto) Anion Gap Estim Creat Clear Calc Estimated GFR POC Glucose 285 H Random Glucose Calcium Total Bilirubin Direct Bilirubin AST ALT Alkaline Phosphatase Troponin I High Sens B-Natriuretic Peptide Total Protein Albumin Lipase Urine Color YELLOW Urine Appearance TURBID Urine pH 7.5 Ur Specific [place] 1.020 Urine Protein 1+ H Urine Glucose (UA) NEG Urine Ketones NEG Urine Blood 3+ H Urine Nitrite POS H Ur Leukocyte Esterase 3+ H Urine RBC 15-29 H Urine WBC 15-29 H Ur Squamous Epith Cells 2+ Calcium Oxalate Crystal TRACE Leucine Crystals TRACE Triple Phos Crystals 1+ Amorphous Sediment 2+ Urine Bacteria 4+ Stool Occult Blood POSITIVE Influenza Type A (PCR) Influenza Type B (PCR) RSV RNA Qual (PCR) SARS-CoV-2 RNA (RT-PCR) Imaging Radiologist's Impressions: Impressions Chest X-Ray 07/17/21 22:00 IMPRESSION: There may be some mild pulmonary vascular congestion with upper zone redistribution. Otherwise exam is negative Abdomen/Pelvis CT 07/17/21 22:09 IMPRESSION: 1. Clearing of previous changes of colitis with development of one new focal area inflammatory changes around very short segment of distal sigmoid colon. Findings could represent a small focus of colitis or possibly mild diverticulitis. 2. Incidental note made of cholelithiasis without cholecystitis, Molina catheter in the bladder, left adnexal mass which was previously shown to contain calcification and fat and other findings described above. Ultrasound could be performed for further evaluation of the adnexal mass is recommended previously. Fleischner guidelines were followed. Assessment and Plan (1) Colitis: Status: Acute 70-year-old female with a past medical history of hypertension, hyperlipidemia, aortic stenosis, diabetes, obesity, osteoarthritis, paroxysmal AFib, CHF, history of CVA, COPD, history of chronic indwelling Molina, recurrent UTI; recent admission to the hospital for right lower extremity cellulitis presented to the hospital with a chief complaint of nausea vomiting and diarrhea. Colitis: Stool studies pending. Continue p.o. vancomycin empirically for now. Given recent antibiotic use, high suspicion for C diff. Bright red blood per rectum: Patient noted to have blood mixed with stool. Concern for severe colitis/ EHEC/ Cdiff. GI consult. DM: ISS plus Lantus: monitor FSG. HTN: Hold antihypertensives for now CHF: stable. HOld lasix for now. Afib: rate controlled. c/w Metoprolol. Hold Eliquis. Code Staus: Full code. Quality Stroke Does the patient have a stroke diagnosis?: No VTE Prior VTE?: No VTE Risk Level:: Medical - low VTE Device Contraindication: N/A - Device Ordered VTE Drug Contraindication: Treatment Not Indicated
[2021-07-17] MEDS: vancomycin HCL 125 MG CAPSULE 500 MG PO (23:37)
[2021-07-18] VITALS (7 sets, daily range): BP systolic 92–127; BP diastolic 44–104; PULSE 59–82; RESP 16–20; TEMP 36.2; O2SAT 79–98
--- NOTE | 2021-07-18 | ECG_ITS ---
Test Reason : chest pressure Blood Pressure : / mmHG Vent. Rate : 063 BPM Atrial Rate : 063 BPM P-R Int : 212 ms QRS Dur : 104 ms QT Int : 430 ms P-R-T Axes : 037 003 085 degrees QTc Int : 440 ms Sinus rhythm with 1st degree A-V block Otherwise normal ECG When compared with ECG of 17-JUL-2021 21:24, Premature supraventricular complexes are no longer Present Criteria for Septal infarct are no longer Present Referred By: [facility] Electronically Signed By:STANLEY HUMPHREYS
[2021-07-18 00:26] LABS: CDiff Gene PCR NEGATIVE (Negative)
[2021-07-18] MEDS: Dextrose 5 % and 0.45 % NaCl 1,000 ML 50 ML IVCONT (00:45)
[2021-07-18 00:46] LABS: Glucose, Whole Blood 396 mg/dL (60-115)
[2021-07-18] MEDS: Insulin Glargine,Hum.rec.anlog 100 UNIT/ML 10 ML VIAL 30 UNIT SUBCUT ×2 (00:48→22:04)
[2021-07-18 06:45] LABS: MANUAL DIFF FLAG NO
[2021-07-18 06:50] LABS: Basophils Percent Auto 0.2 % (0-2); Eosinophils Percent Auto 0.1 % (0-4); Hematocrit 42.6 % (37.0-47.0); Hemoglobin 13.4 g/dl (12.0-16.0); Imm Gran Abs Auto 0.06 X10*3/uL (0.00-0.03); Imm Gran Pct Auto 0.4 % (0.0-0.4); Lymphocytes Absolute Auto 1.8 X10*3/uL (1.2-4.9); Lymphocytes Percent Auto 13.3 % (20-40); Mean Corpuscular HGB Conc 31.5 g/dl (31.0-35.0); Mean Corpuscular Hemoglobin 27.5 pg (27.0-33.0); Mean Corpuscular Volume 87.5 fL (80.0-98.0); Mean Platelet Volume 12.3 fL (9.4-12.3); Monocytes Absolute Auto 1.2 X10*3/uL (0.1-1.2); Monocytes Percent Auto 8.6 % (2-11); Neutrophils Absolute Auto 10.4 x10*3/uL (2.0-8.3); Neutrophils Percent Auto 77.4 % (45-73); Platelet Count 142 X10*3/uL (160-400); Red Blood Count 4.87 X10*6/uL (4.20-5.50); Red Cell Distribution Width 15.7 % (11.0-16.0); White Blood Count 13.5 X10*3/uL (4.8-10.8)
--- NOTE | 2021-07-18 07:19 | P.PNIM_ITS ---
Subjective Subjective Date of Service: 07/18/21 Interval History: f/u on colitis, still with some abdominal pain, diarrhea, no further bleeding. Review of Systems no fever +abdominal pain, diarrhea Physical Exam Vital Signs: Vital Signs: Last Vital Signs Temp 98.7 F 07/17/21 22:38 Pulse 75 07/18/21 05:58 Resp 20 07/18/21 05:58 BP 102/44 L 07/18/21 05:58 Pulse Ox 91 L 07/18/21 05:58 BMI result Body Mass Index 61.8 Const: Other: General: AO X 3, no acute distress, obese Resp: CTA bilateral CVS: S1,S2,RRR GI: +BS, NT, no distention Skin: andrés venous stasis changes of both legs Neuro: motor grossly intact Psych: appropriate affect Objective Data Active Medications Acetaminophen (Acetaminophen 325 Mg Tablet) 650 mg PO Q6H PRN PRN Reason: Pain, Mild (Pain Scale 1-3) Albuterol/Ipratropium (Albuterol/Iprat 2.5/0.5mg 3 Ml Ampul.Neb) 3 ml INHALE RQ4H PRN PRN Reason: Shortness of Breath/Wheezing Dextrose/Sodium Chloride (D51/2ns) 1,000 mls @ 50 mls/hr IVCONT .Q20H [facility] Last Admin: 07/18/21 00:45 Dose: 50 mls/hr Documented by: ELIAS Insulin Glargine (Insulin Glargine,Hum.Rec.Anlog 100 Unit/Ml 10 Ml Vial) 30 unit SUBCUT BEDTIME [facility] Last Admin: 07/18/21 00:48 Dose: 30 unit Documented by: ELIAS Melatonin (Melatonin 3 Mg Tablet) 6 mg PO BEDTIME PRN PRN Reason: Insomnia Senna (Sennosides 8.6 Mg Tablet) 17.2 mg PO BEDTIME PRN PRN Reason: Constipation Sodium Chloride (0.9 % Sodium Chloride Flush 3 Ml Syringe) 3 ml IVFLUSH QSHIFT [facility] Last Admin: 07/18/21 00:13 Dose: Not Given Documented by: ELIAS Non-Admin Reason: IV Running Labs CBC & Chem 7: 07/18/21 06:12 07/18/21 06:12 Labs: Laboratory Results - last 24 hr 07/17/21 07/17/2122 20:05 21:00 21:00 WBC 15.9 H MCV 87.9 MCH 28.0 MCHC 31.8 RDW 16.0 Plt Count 159 L MPV 11.1 Immature Gran % (Auto) 0.4 Neut % (Auto) 89.7 H Lymph % (Auto) 5.5 L [place] % (Auto) 3.6 Eos % (Auto) 0.6 Baso % (Auto) 0.2 Lymph # (Auto) 0.9 L [place] # (Auto) 0.6 Eos # (Auto) 0.1 Baso # (Auto) 0.0 Abs Immat Gran (auto) 0.07 H Absolute Neuts (auto) 14.3 H Absolute Nucleated RBC 0.000 Nucleated RBC % (auto) 0.0 Anion Gap 13 Estim Creat Clear Calc 60.0 Estimated GFR 38 POC Glucose 363 H* Random Glucose 350 H* Calcium 9.6 D Total Bilirubin 0.7 Direct Bilirubin 0.3 AST 27 D ALT 20 Alkaline Phosphatase 217 H D Troponin I High Sens B-Natriuretic Peptide Total Protein 6.9 Albumin 3.7 Lipase 9 Urine Color Urine Appearance Urine pH Ur Specific [place] Urine Protein Urine Glucose (UA) Urine Ketones Urine Blood Urine Nitrite Ur Leukocyte Esterase Urine RBC Urine WBC Ur Squamous Epith Cells Calcium Oxalate Crystal Leucine Crystals Triple Phos Crystals Amorphous Sediment Urine Bacteria Stool Occult Blood C. difficile Tox B Gene Influenza Type A (PCR) Influenza Type B (PCR) RSV RNA Qual (PCR) SARS-CoV-2 RNA (RT-PCR) 07/17/21 07/17/21 07/17/21 21:00 21:00 21:00 WBC MCV MCH MCHC RDW Plt Count MPV Immature Gran % (Auto) Neut % (Auto) Lymph % (Auto) [place] % (Auto) Eos % (Auto) Baso % (Auto) Lymph # (Auto) [place] # (Auto) Eos # (Auto) Baso # (Auto) Abs Immat Gran (auto) Absolute Neuts (auto) Absolute Nucleated RBC Nucleated RBC % (auto) Anion Gap Estim Creat Clear Calc Estimated GFR POC Glucose Random Glucose Calcium Total Bilirubin Direct Bilirubin AST ALT Alkaline Phosphatase Troponin I High Sens 16.2 D B-Natriuretic Peptide 65 Total Protein Albumin Lipase Urine Color Urine Appearance Urine pH Ur Specific [place] Urine Protein Urine Glucose (UA) Urine Ketones Urine Blood Urine Nitrite Ur Leukocyte Esterase Urine RBC Urine WBC Ur Squamous Epith Cells Calcium Oxalate Crystal Leucine Crystals Triple Phos Crystals Amorphous Sediment Urine Bacteria Stool Occult Blood C. difficile Tox B Gene Influenza Type A (PCR) NEGATIVE Influenza Type B (PCR) NEGATIVE RSV RNA Qual (PCR) NEGATIVE SARS-CoV-2 RNA (RT-PCR) NEGATIVE 07/17/21 07/17/21 07/17/21 21:00 22:25 22:29 WBC MCV MCH MCHC RDW Plt Count MPV Immature Gran % (Auto) Neut % (Auto) Lymph % (Auto) [place] % (Auto) Eos % (Auto) Baso % (Auto) Lymph # (Auto) [place] # (Auto) Eos # (Auto) Baso # (Auto) Abs Immat Gran (auto) Absolute Neuts (auto) Absolute Nucleated RBC Nucleated RBC % (auto) Anion Gap Estim Creat Clear Calc Estimated GFR POC Glucose 285 H Random Glucose Calcium Total Bilirubin Direct Bilirubin AST ALT Alkaline Phosphatase Troponin I High Sens B-Natriuretic Peptide Total Protein Albumin Lipase Urine Color YELLOW Urine Appearance TURBID Urine pH 7.5 Ur Specific [place] 1.020 Urine Protein 1+ H Urine Glucose (UA) NEG Urine Ketones NEG Urine Blood 3+ H Urine Nitrite POS H Ur Leukocyte Esterase 3+ H Urine RBC 15-29 H Urine WBC 15-29 H Ur Squamous Epith Cells 2+ Calcium Oxalate Crystal TRACE Leucine Crystals TRACE Triple Phos Crystals 1+ Amorphous Sediment 2+ Urine Bacteria 4+ Stool Occult Blood POSITIVE C. difficile Tox B Gene Influenza Type A (PCR) Influenza Type B (PCR) RSV RNA Qual (PCR) SARS-CoV-2 RNA (RT-PCR) 07/17/21 07/18/21 07/18/21 23:33 00:41 06:12 WBC 13.5 H MCV 87.5 MCH 27.5 MCHC 31.5 RDW 15.7 Plt Count 142 L MPV 12.3 Immature Gran % (Auto) 0.4 Neut % (Auto) 77.4 H Lymph % (Auto) 13.3 L [place] % (Auto) 8.6 Eos % (Auto) 0.1 Baso % (Auto) 0.2 Lymph # (Auto) 1.8 [place] # (Auto) 1.2 Eos # (Auto) 0.0 Baso # (Auto) 0.0 Abs Immat Gran (auto) 0.06 H Absolute Neuts (auto) 10.4 H Absolute Nucleated RBC 0.000 Nucleated RBC % (auto) 0.0 Anion Gap Estim Creat Clear Calc Estimated GFR POC Glucose 396 H* Random Glucose Calcium Total Bilirubin Direct Bilirubin AST ALT Alkaline Phosphatase Troponin I High Sens B-Natriuretic Peptide Total Protein Albumin Lipase Urine Color Urine Appearance Urine pH Ur Specific [place] Urine Protein Urine Glucose (UA) Urine Ketones Urine Blood Urine Nitrite Ur Leukocyte Esterase Urine RBC Urine WBC Ur Squamous Epith Cells Calcium Oxalate Crystal Leucine Crystals Triple Phos Crystals Amorphous Sediment Urine Bacteria Stool Occult Blood C. difficile Tox B Gene NEGATIVE Influenza Type A (PCR) Influenza Type B (PCR) RSV RNA Qual (PCR) SARS-CoV-2 RNA (RT-PCR) Assessment and Plan (1) Colitis: Status: Acute Assessment and Plan: 70-year-old female with a past medical history of hypertension, hyperlipidemia, aortic stenosis, diabetes, obesity, osteoarthritis, paroxysmal AFib, CHF, history of CVA, COPD, history of chronic indwelling Molina, recurrent UTI; recent admission to the hospital for right lower extremity cellulitis presented to the hospital with nausea vomiting and diarrhea and CT finding of colitis Colitis: Stool studies pending, C dif is negative. No indication for PO vanco. Add Flagyl and Ceftriaxone for UTI UTI--Ceftriaxone, follow culture? Bright red blood per rectum:? Patient noted to have blood mixed with stool.? Concern for severe colitis/ EHEC/ Cdiff. GI consult.? Hgb is stable DM: Hyperglycemia, continue Lantus, SSI, DC D5 HTN: BP on lower side, hold antihypertensives for now CHF: appear euvolemic, hold diuretics Afib: rate controlled. c/w Metoprolol. Hold Eliquis in light of GIB Morbid obesity d/t excess calory and limitted mobility, aware of need for weight loss and means and potential health benefit of lossing weight Code Staus: Full code. Quality Stroke Does the patient have a stroke diagnosis?: No VTE Prior VTE?: No VTE Risk Level:: Medical - low VTE Device Contraindication: N/A - Device Ordered VTE Drug Contraindication: Treatment Not Indicated
[2021-07-18 07:24] LABS: Anion Gap 13 (12-20); Blood Urea Nitrogen 32 mg/dL (9-16); Calcium 8.2 mg/dL (8.4-10.2); Carbon Dioxide 25 mmol/L (22-29); Chloride 101 mmol/L (96-108); Creatinine Clr Calc Pharmacy 84.8; Estimated Glomerular Filt Rate 57; Glucose Random 473 mg/dL (60-115); Potassium 3.9 mmol/L (3.3-5.1); Sodium 135 mmol/L (135-145)
[2021-07-18] MEDS: Insulin Lispro 100 UNIT/ML 3 ML VIAL 10 UNIT SUBCUT (09:06)
--- NOTE | 2021-07-18 10:43 | PC.NURSE ---
pt incontinent of stool. stool mucos like and bloody. MD. Cheema notifed of this as well that pts med rec is complete.
[2021-07-18] MEDS: Gabapentin 300 MG CAPSULE PO ×2 (11:42→19:58)
[2021-07-18] MEDS: metroNIDAZOLE/NS 500 MG/100 ML PIGGYBACK 100 MG IV ×2 (11:43→19:43)
--- NOTE | 2021-07-18 11:46 | PC.NURSE ---
Addendum entered by Karina Menezes RN 07/18/21 11:54: informed MD Demarco of low MAP and BP , informed t/w to give metoprolol to avoid afib with RVR Original Note: pts metoprolol held for BP 106/50 (MAP 63)
[2021-07-18] MEDS: Metoprolol Tartrate 50 MG TABLET PO (11:52)
[2021-07-18 12:05] LABS: Glucose, Whole Blood 309 mg/dL (60-115)
--- NOTE | 2021-07-18 12:43 | PC.NURSE ---
pt c/o new onset chest pressure. DR. Demarco notified, EKG ordered and obtained
[2021-07-18] MEDS: cefTRIAXone sodium 1 GM in 0.9 % Sodium Chloride 50 ML IV (13:02)
[2021-07-18 13:03] LABS: Glucose, Whole Blood 320 mg/dL (60-115)
--- NOTE | 2021-07-18 13:28 | MHC.CM.PN ---
IMM 07/18/21, EMR REVIEWED, PT ADMITTED W/COLITIS, CM MET W/PT WHO IS A&OX4, PT REPORTS SHE LIVES ALONE, HAS AN ELECTRIC W/C AND IS TRANSFERRED VIA [employer], PT HAS A HOSPITAL BED, GRABBERS AND A SOCK AID, PT HAS DAILY [employer] CM, DIABETIC MEALS ON WHEELS AND TID VNA, PT VERIFIES PCP IS LEONORA CASEY AND HCP ON FILE FROM PREVIOUS VISIT. PT WOULD LIKE TO RETURN HOME W/RESUMP OF SERVICES. PT WILL NEED TRANSPORT VIA [facility]. D/C PLAN: HOME W/RESUMP OF SERV VS STR, TRANSPORT [facility] [place] [phone] [facility]: [facility] [phone] PRIME: SKYE [employer]INGH IS PT'S SW AND IN CHARGE OF PT'S MONEY, [facility]: [employer]MENT [employer]'S CARETENDERS: AMARA
--- NOTE | 2021-07-18 14:03 | PHA.MEDREC ---
Pharmacy Consult ? Medication Reconciliation RN ALSO VERIFIED INSULIN DOSES PER PT REPORT Pharmacy has completed the medication reconciliation.
--- NOTE | 2021-07-18 15:32 | PC.NURSE ---
ICU called: pt having sinus lisa with a first degree block and mobitz 1 on the monitor. MD May notfied. pt hr 60. no new orders. will continue to monitor.
[2021-07-18 18:24] LABS: Glucose, Whole Blood 259 mg/dL (60-115)
[2021-07-18] MEDS: Insulin Lispro 100 UNIT/ML 3 ML VIAL SUBCUT (18:30)
[2021-07-18] MEDS: 0.9 % Sodium Chloride Flush 3 ML SYRINGE IVFLUSH (18:30)
[2021-07-18] MEDS: Nystatin Powder 15 GM BOTTLE 1 APPL TOPICAL (22:07)
--- NOTE | 2021-07-18 22:15 | PC.NURSE ---
Assumed care of pt Pt's SBP in 90s Pt droswy but arousable with verbal stimuli. Pt lethargic and slow to respond when awake. Pt denies any CP/SOB/Lightheadedness Dr. Mckinney made aware. Per Dr. Mckinney, can give patient 250 cc normal saline at 100 cc/hour. Dr. Mckinney ordered repeat lab work and CT scan of the head Will continue to monitor
[2021-07-18 22:22] LABS: Glucose, Whole Blood 203 mg/dL (60-115)
[2021-07-18 23:10] LABS: MANUAL DIFF FLAG NO
[2021-07-18 23:13] LABS: Basophils Percent Auto 0.1 % (0-2); Eosinophils Absolute Auto 0.3 X10*3/uL (0.0-0.4); Eosinophils Percent Auto 3.2 % (0-4); Hematocrit 42.5 % (37.0-47.0); Hemoglobin 13.4 g/dl (12.0-16.0); Imm Gran Abs Auto 0.03 X10*3/uL (0.00-0.03); Imm Gran Pct Auto 0.3 % (0.0-0.4); Lymphocytes Absolute Auto 2.5 X10*3/uL (1.2-4.9); Lymphocytes Percent Auto 24.6 % (20-40); Mean Corpuscular HGB Conc 31.5 g/dl (31.0-35.0); Mean Corpuscular Hemoglobin 27.9 pg (27.0-33.0); Mean Corpuscular Volume 88.5 fL (80.0-98.0); Mean Platelet Volume 11.7 fL (9.4-12.3); Monocytes Absolute Auto 0.7 X10*3/uL (0.1-1.2); Monocytes Percent Auto 6.7 % (2-11); Neutrophils Absolute Auto 6.5 x10*3/uL (2.0-8.3); Neutrophils Percent Auto 65.1 % (45-73); Platelet Count 139 X10*3/uL (160-400); Red Cell Distribution Width 15.9 % (11.0-16.0)
[2021-07-18 23:31] LABS: Anion Gap 9 (12-20); Blood Urea Nitrogen 28 mg/dL (9-16); Calcium 8.5 mg/dL (8.4-10.2); Carbon Dioxide 32 mmol/L (22-29); Chloride 102 mmol/L (96-108); Creatinine Clr Calc Pharmacy 112.7; Estimated Glomerular Filt Rate > 60; Glucose Random 217 mg/dL (60-115); Potassium 3.6 mmol/L (3.3-5.1); Sodium 139 mmol/L (135-145)
[2021-07-18] MEDS: 0.9 % Sodium Chloride 500 ML 250 ML IV (23:53)
--- NOTE | 2021-07-19 | ECG_ITS ---
Test Reason : bradycardia Blood Pressure : / mmHG Vent. Rate : 031 BPM Atrial Rate : 031 BPM P-R Int : 220 ms QRS Dur : 110 ms QT Int : 494 ms P-R-T Axes : 058 016 080 degrees QTc Int : 354 ms Marked sinus bradycardia with 1st degree A-V block Abnormal ECG When compared with ECG of 18-JUL-2021 12:36, Vent. rate has decreased BY 32 BPM QT has shortened Referred By: Juanjose Demarco Electronically Signed By:STANLEY HUMPHREYS
[2021-07-19 04:00] VITALS: BP 110/48; PULSE 65; RESP 18; O2SAT 98
[2021-07-19] MEDS: metroNIDAZOLE/NS 500 MG/100 ML PIGGYBACK 100 MG IV ×3 (04:04→21:01)
[2021-07-19] MEDS: Acetaminophen 325 MG TABLET 650 MG PO (04:54)
--- NOTE | 2021-07-19 05:47 | PC.NURSE ---
Pt woke up c/o RT shoulder pain radiating down RT arm with numbness on fingers. Pt given tylenol and warm packs with no relief. Pt repositioned with no relief. Dr. Mckinney made aware. Per Dr. Mckinney, x-ray and oxicodone. Awaiting pharmacy to verify.
[2021-07-19] MEDS: oxyCODONE HCl Immed Release 5 MG TABLET PO (06:35)
[2021-07-19 07:26] LABS: Hematocrit 41.1 % (37.0-47.0); Hemoglobin 12.9 g/dl (12.0-16.0); Mean Corpuscular HGB Conc 31.4 g/dl (31.0-35.0); Mean Corpuscular Hemoglobin 27.6 pg (27.0-33.0); Mean Platelet Volume 12.5 fL (9.4-12.3); Platelet Count 134 X10*3/uL (160-400); Red Blood Count 4.67 X10*6/uL (4.20-5.50); Red Cell Distribution Width 15.9 % (11.0-16.0); White Blood Count 7.9 X10*3/uL (4.8-10.8)
[2021-07-19 07:37] LABS: Glucose, Whole Blood 167 mg/dL (60-115)
[2021-07-19 07:45] VITALS: BP 123/53; PULSE 58; RESP 16; O2SAT 94
[2021-07-19] MEDS: Insulin Glargine,Hum.rec.anlog 100 UNIT/ML 10 ML VIAL 16 UNIT SUBCUT (07:52)
[2021-07-19] MEDS: Insulin Lispro 100 UNIT/ML 3 ML VIAL SUBCUT (07:53)
[2021-07-19] MEDS: Metoprolol Tartrate 50 MG TABLET PO (07:53)
[2021-07-19] MEDS: Atorvastatin Calcium 20 MG TABLET PO (07:54)
[2021-07-19] MEDS: Furosemide 20 MG TABLET PO (07:54)
[2021-07-19] MEDS: Gabapentin 300 MG CAPSULE PO ×3 (07:54→20:59)
[2021-07-19] MEDS: Nystatin Powder 15 GM BOTTLE 1 APPL TOPICAL ×2 (07:57→21:05)
--- NOTE | 2021-07-19 10:23 | PC.NURSE ---
Pt A&Ox3, Lungs diminished in the bases, awaiting GI consult at this time. Pt aware of NPO status until after that consult. No complaints of pain at this time. Nystatin applied to bilateral breasts. Skin intact, heels lifted off mattress, Pt medicated at [address] as [address] [facility] orders. HR 60's at that time. At approx 845, pt stated bradying down into the 30's, MD Demarco made aware, Pt asymptomatic throughout episode. Luis E came to eval patient. Pt made aware if she has pain to call RN. Will continue to monitor.
--- NOTE | 2021-07-19 10:52 | P.CDIC_ITS ---
CDI Concurrent Query Documentation Clarification: PHYSICIAN'S DOCUMENTATION REQUEST Date of Query: 07/19/21 1052 Patient Name: Aleah Connor Admit Date: 07/17/21 Dear Doctor, A review of the medical record indicates additional documentation may be needed. Please review below and update the documentation accordingly. Risk Factors/Clinical Indicators/Treatments Per ED note patient has chronic Rai catheter UA positive, UC pending Per MD progress note 07/18/21: UTI--Ceftriaxone, follow culture Please clarify the relationship between these conditions: * Yes, UTI is related to / associated with / due to chronic Rai catheter * No, UTI is not related to / associated with / due to chronic Rai catheter * Unable to determine Use of terms such as suspected, likely, concern for, or probable (associated with a specific diagnosis that is being evaluated, monitored, or treated as if it exists) are acceptable and can be coded in the inpatient setting, when documented at the time of discharge. Thank you, Ligia Connor RN Extension: [phone] Please use your independent medical judgment in providing your response. THIS QUERY IS PART OF THE PERMANENT MEDICAL RECORD Provider Response: Other Other Diagnosis: UTI d/t chronic rai
--- NOTE | 2021-07-19 10:59 | P.CNGI_ITS ---
History of Present Illness Data of Consult Service Date: 07/19/21 Requesting physician: Juanjose Demarco Primary Care Provider: Cherise Hamm MD [facility] Reason for consult: colitis 70-year-old female with a past medical history of hypertension, hyperlipidemia, aortic stenosis, diabetes, obesity, osteoarthritis, paroxysmal AFib, CHF, history of CVA, COPD, history of chronic indwelling Molina, recurrent UTI; who I am seeing for assessment of colitis. Patient had noted few days of nausea with non bloody emesis and loose watery and foul smelling diarrhea. Initially non bloody but had blood in stool in the ER. Had been in hospital recently for cellulitis so concern for c diff and given va ncomycin empirically. she does think she may have had some food that was contaminated just before her sx started but not sure if this was meat, was delivered from [employer] Since being in hospital she feels better and wants toe at, she has not noted any more diarrhea or bleeding Patient had presentation 09/2020 with colitis and had colonoscopy with patchy erosions and erythema, that was more confluent and worse in the rectum till the distal sigmoid. Biopsies w/ non specific colitis. Cecum not reached due to looping. CT imaging this time with area of colitis vs diverticulitis on left colon, gallstones and adnexal lesion also. Review of Systems Review of Systems: Yes all other systems are reviewed and are negative Cardiovascular: Cardiovascular: Reports as per HPI, Reports no additional cardiovascular complaints, Denies acrocyanosis, Denies cool extremities, Denies painful fingertips, Denies chest pain, Denies chest pain at rest, Denies diaphoresis, Denies syncope, Denies irregular heart rhythm, Denies claudication, Denies leg edema, Denies lightheadedness, Denies palpitations and Denies dyspnea Respiratory: Respiratory: Denies dyspnea Neurologic: Denies syncope Endocrine: Endocrine: Denies palpitations PMFSH Past Medical History Medical History Aortic stenosis Chronic indwelling Molina catheter Chronic UTI Congestive heart failure COPD (chronic obstructive pulmonary disease) Diabetes Glaucoma H/O: CVA (cerebrovascular accident) Hypertension Obesity Osteoarthritis Paroxysmal atrial fibrillation Severe sepsis Surgical History Surgical History H/O adenoidectomy H/O enucleation of left eyeball History of tonsillectomy Social History Social History Household Members: None Housing: Apartment Do you presently have visiting nurse or other home services: Yes Unable to assess alcohol history related to: Unknown Alcohol intake: never Patient Tobacco Use Status: Never used Tobacco Second Hand Smoke Exposure: No Advance Directives: Yes Advance Directives on File: Yes Advance Directives Date on File: 07/09/20 service: No Current occupational status: disabled Meds Allergies Allergy/AdvReac Type Severity Reaction Status Date / Time silver sulfadiazine Allergy Unknown UNK Verified 06/11/21 14:55 [From SILVADENE] Active Medications: Current Medications Acetaminophen (Acetaminophen 325 Mg Tablet) 650 mg PO Q6H PRN PRN Reason: Pain, Mild (Pain Scale 1-3) Last Admin: 07/19/21 04:54 Dose: 650 mg Documented by: Albuterol Sulfate (Albuterol Sulfate 90 Mcg 8 Gm Inhaler) 2 puff INHALE Q4H PRN PRN Reason: Wheezing Albuterol/Ipratropium (Albuterol/Iprat 2.5/0.5mg 3 Ml Ampul.Neb) 3 ml INHALE RQ4H PRN PRN Reason: Shortness of Breath/Wheezing Albuterol/Ipratropium (Albuterol/Iprat 2.5/0.5mg 3 Ml Ampul.Neb) 3 ml INHALE Q4H PRN PRN Reason: Wheezing Atorvastatin Calcium (Atorvastatin Calcium 20 Mg Tablet) 20 mg PO DAILY [facility] Last Admin: 07/19/21 07:54 Dose: 20 mg Documented by: Furosemide (Furosemide 20 Mg Tablet) 20 mg PO DAILY [facility]; Protocol Last Admin: 07/19/21 07:54 Dose: 20 mg Documented by: Gabapentin (Gabapentin 300 Mg Capsule) 300 mg PO TID [facility] Last Admin: 07/19/21 07:54 Dose: 300 mg Documented by: Ceftriaxone Sodium 1 gm/ (Sodium Chloride) 50 mls @ 100 mls/hr IV Q24H [facility] Last Infusion: 07/18/21 14:07 Dose: Infused Documented by: Metronidazole (Flagyl) 500 mg in 100 mls @ 100 mls/hr IV Q8H [facility] Last Infusion: 07/19/21 05:43 Dose: Infused Documented by: Insulin Glargine (Insulin Glargine,Hum.Rec.Anlog 100 Unit/Ml 10 Ml Vial) 30 unit SUBCUT BEDTIME [facility] Last Admin: 07/18/21 22:04 Dose: 30 unit Documented by: Insulin Glargine (Insulin Glargine,Hum.Rec.Anlog 100 Unit/Ml 10 Ml Vial) 16 unit SUBCUT DAILY [facility] Last Admin: 07/19/21 07:52 Dose: 16 unit Documented by: Insulin Human Lispro (Insulin Lispro 100 Unit/Ml 3 Ml Vial) 0 unit SUBCUT BIDAC [facility]; Protocol Last Admin: 07/19/21 07:53 Dose: 2 unit Documented by: Melatonin (Melatonin 3 Mg Tablet) 6 mg PO BEDTIME PRN PRN Reason: Insomnia Metoprolol Tartrate (Metoprolol Tartrate 50 Mg Tablet) 50 mg PO BID [facility]; Protocol Last Admin: 07/19/21 07:53 Dose: 50 mg Documented by: Non-Formulary Medication (Fluticasone Propionate [Flovent Diskus]) 1 inhalation INHALE BID [facility] Nystatin (Nystatin Powder 15 Gm Bottle) 1 appl TOPICAL BID [facility]; Protocol Last Admin: 07/19/21 07:57 Dose: 1 appl Documented by: Senna (Sennosides 8.6 Mg Tablet) 17.2 mg PO BEDTIME PRN PRN Reason: Constipation Sodium Chloride (0.9 % Sodium Chloride Flush 3 Ml Syringe) 3 ml IVFLUSH QSHIFT [facility] Last Admin: 07/19/21 08:17 Dose: Not Given Documented by: Home Medications Medication Instructions Recorded Confirmed Last Taken Type albuterol sulfate 90 mcg/actuation 2 puff INHALATION Q4-6H PRN 01/23/21 07/18/21 Unknown History aerosol inhaler (Proventil HFA) apixaban 5 mg tablet (Eliquis) 5 mg PO BID 01/23/21 07/18/21 Unknown History aspirin 81 mg tablet,delayed 1 tab PO DAILY 01/23/21 07/18/21 Unknown History release fluticasone propionate 50 1 inh INHALATION BID 01/23/21 07/18/21 Unknown History mcg/actuation blister powder for inhalation (Flovent Diskus) gabapentin 300 mg capsule 300 mg PO TID 01/23/21 07/18/21 Unknown History insulin glargine 100 unit/mL (3 16 unit SUBCUT DAILY 01/23/21 07/18/21 Unknown History mL) subcutaneous pen (Lantus Solostar U-100 Insulin) insulin lispro 100 unit/mL See Protocol SUBCUT BIDAC 01/23/21 07/18/21 Unknown History subcutaneous solution (Humalog U-100 Insulin) ipratropium 0.5 mg-albuterol 3 mg 1 vial INHALATION Q4-6H PRN 01/23/21 07/18/21 Unknown History (2.5 mg base)/3 mL nebulization soln lisinopril 5 mg tablet 5 mg PO DAILY 01/23/21 07/18/21 Unknown History metoprolol tartrate 50 mg tablet 50 mg PO BID 01/23/21 07/18/21 Unknown History simvastatin 40 mg tablet 40 mg PO BEDTIME 01/23/21 07/18/21 Unknown History furosemide 20 mg tablet 20 mg PO DAILY 05/04/21 07/18/21 Unknown History Physical Exam Vital Signs: Vital Signs: Last Vital Signs Temp 97.1 F 07/18/21 20:00 Pulse 58 07/19/21 07:45 Resp 16 07/19/21 07:45 BP 123/53 L 07/19/21 07:45 Pulse Ox 94 07/19/21 07:45 BMI result Body Mass Index 61.8 Const: Other: General: AO X 3, no acute distress, obese Resp: CTA bilateral CVS: S1,S2,RRR GI: +BS, NT, no distention Skin: andrés venous stasis changes of both legs with dry skin and discoloration Neuro: motor grossly intact Psych: appropriate affect General: no acute distress HENMT: Other: Unremarkable Neck: Neck: Yes normal visual inspection Chest: Chest palpation & inspection: normal inspection of the chest Resp: Auscultation: no crackles and no wheezes Cardio: Palpation: normal PMI Heart sounds: S1 normal heart sound present, S2 normal heart sound present, no gallops, Murmur heart sound present (3/6 NATACHA aortic area) and no rubs GI: Palpation (GI): Soft to palpation Back/Spine/Pelvis: Other: unremarkable Skin: Lesions: other Neuro: Cranial nerves: Yes Other cranial nerve findings present Extrem: General: Yes other Psych: Mental Status: other Results Labs CBC & Chem 7: 07/19/21 06:55 07/18/21 23:05 Labs: Short CBC 07/18/21 07/19/21 Range/Units 23:05 06:55 WBC 10.0 7.9 (4.8-10.8) X10*3/uL Hgb 13.4 12.9 (12.0-16.0) g/dl Hct 42.5 41.1 (37.0-47.0) % Plt Count 139 L 134 L (160-400) X10*3/uL BMP 07/18/21 23:05 Sodium 139 Potassium 3.6 Chloride 102 Carbon Dioxide 32 H BUN 28 H Creatinine 0.73 Calcium 8.5 Microbiology Microbiology Results: Microbiology 07/17/21 Unknown Urine Catheterized - Molina Catheter Urine Culture - Final Assessment and Plan (1) Colitis: Status: Acute 1/ Recurrent colitis, current episode prob infectious uncertain is this is c diff inspite of the toxin neg test, bleeding likely from the colitis. PLAN: 1/ Cont with antibiotics, consider repeat c diff but do PCR testing 2/ outpatient colonoscopy in 4-8 weeks with adult scope Procedures Date of Service Date of Service: 07/19/21
--- NOTE | 2021-07-19 11:07 | CA_ITS ---
Transthoracic Echocardiogram Patient (Last, First, Middle): Aleah Connor, Gender: Female Date of : 1950 Age: 70 Procedure Date: 07/19/2021 Procedure Type: Transthoracic Echocardiogram Location: ER Height: 162.56 cm Weight: 163.3 kg BSA: 2.51 m2 Heart Rate: bpm BP: 120 / 32 mmHg Lead Burner Helper: Referring MD: Bertrand Gill MD Symptoms: Aortic stenosis; bradycardia Study Quality: Technically Difficult ECG Rhythm: Sinus Conclusions: - The left ventricular systolic function is normal. The calculated ejection fraction is 67% by biplane method. - Moderately increased right ventricular cavity size. - There is moderate aortic valve stenosis. - There is moderate mitral annular calcification. - Mild pulmonary hypertension is present. Findings Procedure Information Contrast agent, definity, is being given per protocol without apparent complications. Left Ventricle Normal left ventricular cavity size. There is moderately increased left ventricular wall thickness. The left ventricular systolic function is normal. The calculated ejection fraction is 67% by biplane method. There is no evidence of regional wall motion abnormalities. E/E prime ratio is >15, consistent with elevated filling pressures. Evidence suggests grade I (mild) diastolic dysfunction. Right Ventricle Moderately increased right ventricular cavity size. There is normal right ventricular systolic function. Atria The left atrium is moderately dilated. The right atrium is normal in size. Aortic Valve The aortic valve was not well visualized. There is moderate aortic valve stenosis. The peak aortic gradient is 38 mmHg.The mean gradient is 21 mmHg. Dimensionless index 0.46. Mitral Valve There is moderate mitral annular calcification. There is trace mitral valve regurgitation. Mean gradient across the mitral valve 4mmHg at 55/min; cannot exclude mild mitral stenosis. Pulmonic Valve The pulmonic valve was not well visualized. Tricuspid Valve There is mild tricuspid valve regurgitation. The right ventricular systolic pressure is 41 mmHg. Mild pulmonary hypertension is present. Great Vessels The aortic annulus, sinuses of valsalva, and asc aorta are normal in size. Venous The inferior vena cava is dilated and collapses greater than 50% with inspiration. Prior Study Comparison No significant change compared to prior study dated: 09/24/2020. Measurements 2D Linear Measurements IVSd: 1.51 0.6-0.9/0.6-1.0 cm LVIDd: 3.47 3.9-5.3/4.2-5.9 cm LVIDd Index: 1.38 2.4-3.2/2.2-3.1 cm/m2 LVIDs: 2.34 2.0-3.6 cm LVPWd: 1.58 0.7-1.1 cm Ao Root: 3.00 2.1-3.5 cm LA Diam: 3.50 2.7-3.8/3.0-4.0 cm LAIDs Index: 1.39 1.5-2.3 cm/m2 LV Mass: 250.14 67-162/88-224 g LV Mass Index: 99.66 43-95/49-115 g/m2 LVOT Diam: 2.10 3.0+(-)1.3 cm 2D Systolic Function EF 4C: 66.20 >55% EF 2C: 69.70 >55% EF BiP: 67.40 >55% Mitral Valve MV VTI: 0.62 MV Pk Bakari: 1.52 MV Mn Bakari: 0.89 MV Pk Grad: 9.00 MV Mn Grad: 4.00 MV Pk E: 1.31 MV PK A: 1.46 MV Decel Time: 302.00 E/A: 0.90 E'Lateral: 5.22 E'Medial: 4.03 E/E' Med: 32.50 E/E' Lat: 25.10 PHT: 98.00 MVA PHT: 2.24 MVA Continuity: 2.03 Decel [place]: 4.21 Aortic Valve AoV Pk Bakari: 2.76 AoV Mn Bakari: 1.74 AoV VTI: 0.60 AoV Pk Grad: 38.00 Aov Mn Grad: 21.00 BARBIE Cont.VTI: 2.11 LVOT LVOT Pk Bakari: 1.42 LVOT Mn Bakari: 0.90 LVOT VTI: 0.37 LVOT Pk Grad: 8.00 LVOT Mn Grad: 4.00 LVOT Diam: 2.10 LVOT Area: 3.46 Diastolic Function MV Pk E: 1.31 MV Pk A: 1.46 E/A: 0.90 E'Medial: 4.03 E/E' Med: 32.50 E' Laterial: 5.22 E/E' Lat: 25.10 Right Ventricle TAPSE (mm): 28.00 TVS' Bakari: 9.00 Tricuspid Valve TR Pk Bakari: 3.09 TR Pk Grad: 38.00 RVSP: 41.00 Great Vessels Aorta Ao Root-2D: 3.00 2.0-3.7 cm Ao Asc: 2.80 2.1-3.4 cm Pulmonary Valve PV Pk Bakari: 1.33 Peak PV Grad: 7.00 Updated in Other Vendor System with Status of Final Bertrand Gill MD electronically signed on 07/19/2021 4:29:36 PM with status of Final
--- NOTE | 2021-07-19 11:07 | PM.CNCAR ---
History of Present Illness History of Present Illness Date of Service: 07/19/21 Chief complaint: Colitis Narrative: This is a cardiology consultation regarding bradycardia. Patient has a history of paroxysmal atrial fibrillation and is on beta-blockers. It seems that she got metoprolol today and her heart rate has been the 30s to 40s and hence we have been asked to see her. We have seen in the past but does not have any regular outpatient follow-up. She has a history of aortic stenosis which is again intermittently followed because of lack of office visits. Current admission is because of GI symptoms including nausea, vomiting and diarrhea. No specific cardiac symptoms including dizziness or presyncope/syncope. It seems that she got a morning dose of beta-blockers and then her rate was bradycardic and we were requested to assess her. She otherwise feels okay. Review of Systems Review of Systems: Yes all other systems are reviewed and are negative Cardiovascular: Cardiovascular: Reports as per HPI, Reports no additional cardiovascular complaints, Denies acrocyanosis, Denies cool extremities, Denies painful fingertips, Denies chest pain, Denies chest pain at rest, Denies diaphoresis, Denies syncope, Denies irregular heart rhythm, Denies claudication, Denies leg edema, Denies lightheadedness, Denies palpitations and Denies dyspnea Respiratory: Respiratory: Denies dyspnea Neurologic: Denies syncope Endocrine: Endocrine: Denies palpitations PMFSH Past Medical History Medical History Aortic stenosis Chronic indwelling Molina catheter Chronic UTI Congestive heart failure COPD (chronic obstructive pulmonary disease) Diabetes Glaucoma H/O: CVA (cerebrovascular accident) Hypertension Obesity Osteoarthritis Paroxysmal atrial fibrillation Severe sepsis Surgical History Surgical History H/O adenoidectomy H/O enucleation of left eyeball History of tonsillectomy Social History Social History Household Members: None Housing: Apartment Do you presently have visiting nurse or other home services: Yes Unable to assess alcohol history related to: Unknown Alcohol intake: never Patient Tobacco Use Status: Never used Tobacco Second Hand Smoke Exposure: No Advance Directives: Yes Advance Directives on File: Yes Advance Directives Date on File: 07/09/20 service: No Current occupational status: disabled Meds Allergies Allergy/AdvReac Type Severity Reaction Status Date / Time silver sulfadiazine Allergy Unknown UNK Verified 06/11/21 14:55 [From SILVADENE] Active Medications: Current Medications Acetaminophen (Acetaminophen 325 Mg Tablet) 650 mg PO Q6H PRN PRN Reason: Pain, Mild (Pain Scale 1-3) Last Admin: 07/19/21 04:54 Dose: 650 mg Documented by: Albuterol Sulfate (Albuterol Sulfate 90 Mcg 8 Gm Inhaler) 2 puff INHALE Q4H PRN PRN Reason: Wheezing Albuterol/Ipratropium (Albuterol/Iprat 2.5/0.5mg 3 Ml Ampul.Neb) 3 ml INHALE RQ4H PRN PRN Reason: Shortness of Breath/Wheezing Albuterol/Ipratropium (Albuterol/Iprat 2.5/0.5mg 3 Ml Ampul.Neb) 3 ml INHALE Q4H PRN PRN Reason: Wheezing Atorvastatin Calcium (Atorvastatin Calcium 20 Mg Tablet) 20 mg PO DAILY [facility] Last Admin: 07/19/21 07:54 Dose: 20 mg Documented by: Furosemide (Furosemide 20 Mg Tablet) 20 mg PO DAILY [facility]; Protocol Last Admin: 07/19/21 07:54 Dose: 20 mg Documented by: Gabapentin (Gabapentin 300 Mg Capsule) 300 mg PO TID [facility] Last Admin: 07/19/21 07:54 Dose: 300 mg Documented by: Ceftriaxone Sodium 1 gm/ (Sodium Chloride) 50 mls @ 100 mls/hr IV Q24H [facility] Last Infusion: 07/18/21 14:07 Dose: Infused Documented by: Metronidazole (Flagyl) 500 mg in 100 mls @ 100 mls/hr IV Q8H [facility] Last Infusion: 07/19/21 05:43 Dose: Infused Documented by: Insulin Glargine (Insulin Glargine,Hum.Rec.Anlog 100 Unit/Ml 10 Ml Vial) 30 unit SUBCUT BEDTIME [facility] Last Admin: 07/18/21 22:04 Dose: 30 unit Documented by: Insulin Glargine (Insulin Glargine,Hum.Rec.Anlog 100 Unit/Ml 10 Ml Vial) 16 unit SUBCUT DAILY [facility] Last Admin: 07/19/21 07:52 Dose: 16 unit Documented by: Insulin Human Lispro (Insulin Lispro 100 Unit/Ml 3 Ml Vial) 0 unit SUBCUT BIDAC [facility]; Protocol Last Admin: 07/19/21 07:53 Dose: 2 unit Documented by: Melatonin (Melatonin 3 Mg Tablet) 6 mg PO BEDTIME PRN PRN Reason: Insomnia Metoprolol Tartrate (Metoprolol Tartrate 50 Mg Tablet) 50 mg PO BID [facility]; Protocol Last Admin: 07/19/21 07:53 Dose: 50 mg Documented by: Non-Formulary Medication (Fluticasone Propionate [Flovent Diskus]) 1 inhalation INHALE BID [facility] Nystatin (Nystatin Powder 15 Gm Bottle) 1 appl TOPICAL BID [facility]; Protocol Last Admin: 07/19/21 07:57 Dose: 1 appl Documented by: Senna (Sennosides 8.6 Mg Tablet) 17.2 mg PO BEDTIME PRN PRN Reason: Constipation Sodium Chloride (0.9 % Sodium Chloride Flush 3 Ml Syringe) 3 ml IVFLUSH QSHIFT [facility] Last Admin: 07/19/21 08:17 Dose: Not Given Documented by: Home Medications Medication Instructions Recorded Confirmed Last Taken Type albuterol sulfate 90 mcg/actuation 2 puff INHALATION Q4-6H PRN 01/23/21 07/18/21 Unknown History aerosol inhaler (Proventil HFA) apixaban 5 mg tablet (Eliquis) 5 mg PO BID 01/23/21 07/18/21 Unknown History aspirin 81 mg tablet,delayed 1 tab PO DAILY 01/23/21 07/18/21 Unknown History release fluticasone propionate 50 1 inh INHALATION BID 01/23/21 07/18/21 Unknown History mcg/actuation blister powder for inhalation (Flovent Diskus) gabapentin 300 mg capsule 300 mg PO TID 01/23/21 07/18/21 Unknown History insulin glargine 100 unit/mL (3 16 unit SUBCUT DAILY 01/23/21 07/18/21 Unknown History mL) subcutaneous pen (Lantus Solostar U-100 Insulin) insulin lispro 100 unit/mL See Protocol SUBCUT BIDAC 01/23/21 07/18/21 Unknown History subcutaneous solution (Humalog U-100 Insulin) ipratropium 0.5 mg-albuterol 3 mg 1 vial INHALATION Q4-6H PRN 01/23/21 07/18/21 Unknown History (2.5 mg base)/3 mL nebulization soln lisinopril 5 mg tablet 5 mg PO DAILY 01/23/21 07/18/21 Unknown History metoprolol tartrate 50 mg tablet 50 mg PO BID 01/23/21 07/18/21 Unknown History simvastatin 40 mg tablet 40 mg PO BEDTIME 01/23/21 07/18/21 Unknown History furosemide 20 mg tablet 20 mg PO DAILY 05/04/21 07/18/21 Unknown History Physical Exam Vital Signs: Vital Signs: Last Vital Signs Temp 97.1 F 07/18/21 20:00 Pulse 58 07/19/21 07:45 Resp 16 07/19/21 07:45 BP 123/53 L 07/19/21 07:45 Pulse Ox 94 07/19/21 07:45 BMI result Body Mass Index 61.8 Const: General: no acute distress HENMT: Other: Unremarkable Neck: Neck: Yes normal visual inspection Chest: Chest palpation & inspection: normal inspection of the chest Resp: Auscultation: no crackles and no wheezes Cardio: Palpation: normal PMI Heart sounds: S1 normal heart sound present, S2 normal heart sound present, no gallops, Murmur heart sound present (3/6 NATACHA aortic area) and no rubs GI: Palpation (GI): Soft to palpation Back/Spine/Pelvis: Other: unremarkable Skin: Lesions: other Neuro: Cranial nerves: Yes Other cranial nerve findings present Extrem: General: Yes other Psych: Mental Status: other Objective Labs and Meds Result diagrams: 07/19/21 06:55 07/18/21 23:05 Lab results: Laboratory Results - last 24 hr 07/18/21 07/18/21 07/18/21 11:41 12:49 18:20 WBC RBC Hgb Hct MCV MCH MCHC RDW Plt Count MPV Immature Gran % (Auto) Neut % (Auto) Lymph % (Auto) [place] % (Auto) Eos % (Auto) Baso % (Auto) Lymph # (Auto) [place] # (Auto) Eos # (Auto) Baso # (Auto) Abs Immat Gran (auto) Absolute Neuts (auto) Absolute Nucleated RBC Nucleated RBC % (auto) Sodium Potassium Chloride Carbon Dioxide Anion Gap BUN Creatinine Estim Creat Clear Calc Estimated GFR POC Glucose 309 H 320 H 259 H Random Glucose Calcium 07/18/21 07/18/21 07/18/21 22:03 23:05 23:05 WBC 10.0 RBC 4.80 Hgb 13.4 Hct 42.5 MCV 88.5 MCH 27.9 MCHC 31.5 RDW 15.9 Plt Count 139 L MPV 11.7 Immature Gran % (Auto) 0.3 Neut % (Auto) 65.1 Lymph % (Auto) 24.6 [place] % (Auto) 6.7 Eos % (Auto) 3.2 Baso % (Auto) 0.1 Lymph # (Auto) 2.5 [place] # (Auto) 0.7 Eos # (Auto) 0.3 Baso # (Auto) 0.0 Abs Immat Gran (auto) 0.03 Absolute Neuts (auto) 6.5 Absolute Nucleated RBC 0.000 Nucleated RBC % (auto) 0.0 Sodium 139 Potassium 3.6 Chloride 102 Carbon Dioxide 32 H Anion Gap 9 L BUN 28 H Creatinine 0.73 Estim Creat Clear Calc 112.7 Estimated GFR > 60 POC Glucose 203 H Random Glucose 217 H Calcium 8.5 07/19/21 07/19/21 06:55 07:16 WBC 7.9 RBC 4.67 Hgb 12.9 Hct 41.1 MCV 88.0 MCH 27.6 MCHC 31.4 RDW 15.9 Plt Count 134 L MPV 12.5 H Immature Gran % (Auto) Neut % (Auto) Lymph % (Auto) [place] % (Auto) Eos % (Auto) Baso % (Auto) Lymph # (Auto) [place] # (Auto) Eos # (Auto) Baso # (Auto) Abs Immat Gran (auto) Absolute Neuts (auto) Absolute Nucleated RBC 0.000 Nucleated RBC % (auto) 0.0 Sodium Potassium Chloride Carbon Dioxide Anion Gap BUN Creatinine Estim Creat Clear Calc Estimated GFR POC Glucose 167 H Random Glucose Calcium ECG Interpretation: EKG with sinus rhythm, 63/Min; DE prolongation to 212 milliseconds. Imaging Radiologist's impression: Impressions Head CT 07/18/21 22:53 IMPRESSION: No acute intracranial pathology. Shoulder X-Ray 07/19/21 08:30 IMPRESSION: Severe arthritis at the glenohumeral joint. Cannot exclude anterior position of the right humeral head with respect to the glenoid. Additional imaging, transaxillary view if possible, would be recommended if clinically indicated. Assessment and Plan (1) Sinus bradycardia: Status: Acute (2) Non-rheumatic aortic stenosis: Status: Acute Telemetry with sinus bradycardia in the 40s. Last echocardiogram with LVEF 60-65%, moderate to severe aortic stenosis with mean gradient of 47 mm Hg and aortic valve area of 1 sq cm. There is also severe mitral annular calcification and possible mitral stenosis as the mean gradient was 9 mm Hg. LA was severely dilated. Due to bradycardia, we can decrease Metoprolol to 25 mg b.i.d.. Recheck echocardiogram as the last study is almost a year old. Procedures Date of Service Date of Service: 07/19/21
[2021-07-19 11:57] VITALS: BP 120/32; PULSE 56; RESP 13; O2SAT 98
[2021-07-19] MEDS: cefTRIAXone sodium 1 GM in 0.9 % Sodium Chloride 50 ML IV (13:12)
[2021-07-19 13:47] LABS: Glucose, Whole Blood 128 mg/dL (60-115)
--- NOTE | 2021-07-19 14:37 | P.PNIM_ITS ---
Subjective Subjective Date of Service: 07/19/21 Interval History: She is feeling better, no abdominal pain, no blood in stool. Bradyardic into 30s assymptomatic. Review of Systems no fever +abdominal pain, diarrhea Physical Exam Vital Signs: Vital Signs: Last Vital Signs Temp 97.1 F 07/18/21 20:00 Pulse 56 07/19/21 11:57 Resp 13 07/19/21 11:57 BP 120/32 L 07/19/21 11:57 Pulse Ox 98 07/19/21 11:57 BMI result Body Mass Index 61.8 Const: Other: General: AO X 3, no acute distress, obese Resp: CTA bilateral CVS: S1,S2,RRR GI: +BS, NT, no distention Skin: andrés venous stasis changes of both legs with dry skin and discoloration Neuro: motor grossly intact Psych: appropriate affect Objective Data Active Medications Acetaminophen (Acetaminophen 325 Mg Tablet) 650 mg PO Q6H PRN PRN Reason: Pain, Mild (Pain Scale 1-3) Last Admin: 07/19/21 04:54 Dose: 650 mg Documented by: JOHN Albuterol Sulfate (Albuterol Sulfate 90 Mcg 8 Gm Inhaler) 2 puff INHALE Q4H PRN PRN Reason: Wheezing Albuterol/Ipratropium (Albuterol/Iprat 2.5/0.5mg 3 Ml Ampul.Neb) 3 ml INHALE RQ4H PRN PRN Reason: Shortness of Breath/Wheezing Albuterol/Ipratropium (Albuterol/Iprat 2.5/0.5mg 3 Ml Ampul.Neb) 3 ml INHALE Q4H PRN PRN Reason: Wheezing Atorvastatin Calcium (Atorvastatin Calcium 20 Mg Tablet) 20 mg PO DAILY [facility] Last Admin: 07/19/21 07:54 Dose: 20 mg Documented by: LATRELL Furosemide (Furosemide 20 Mg Tablet) 20 mg PO DAILY [facility]; Protocol Last Admin: 07/19/21 07:54 Dose: 20 mg Documented by: LATRELL Gabapentin (Gabapentin 300 Mg Capsule) 300 mg PO TID [facility] Last Admin: 07/19/21 07:54 Dose: 300 mg Documented by: LATRELL Ceftriaxone Sodium 1 gm/ (Sodium Chloride) 50 mls @ 100 mls/hr IV Q24H [facility] Last Admin: 07/19/21 13:12 Dose: 100 mls/hr Documented by: LATRELL Metronidazole (Flagyl) 500 mg in 100 mls @ 100 mls/hr IV Q8H [facility] Last Infusion: 07/19/21 12:50 Dose: 0 mls/hr Documented by: LATRELL Insulin Glargine (Insulin Glargine,Hum.Rec.Anlog 100 Unit/Ml 10 Ml Vial) 30 unit SUBCUT BEDTIME [facility] Last Admin: 07/18/21 22:04 Dose: 30 unit Documented by: JOHN Insulin Glargine (Insulin Glargine,Hum.Rec.Anlog 100 Unit/Ml 10 Ml Vial) 16 unit SUBCUT DAILY [facility] Last Admin: 07/19/21 07:52 Dose: 16 unit Documented by: LATRELL Insulin Human Lispro (Insulin Lispro 100 Unit/Ml 3 Ml Vial) 0 unit SUBCUT BIDAC [facility]; Protocol Last Admin: 07/19/21 07:53 Dose: 2 unit Documented by: LATRELL Melatonin (Melatonin 3 Mg Tablet) 6 mg PO BEDTIME PRN PRN Reason: Insomnia Metoprolol Tartrate (Metoprolol Tartrate 50 Mg Tablet) 50 mg PO BID [facility]; Protocol Last Admin: 07/19/21 07:53 Dose: 50 mg Documented by: LATRELL Non-Formulary Medication (Fluticasone Propionate [Flovent Diskus]) 1 inhalation INHALE BID [facility] Nystatin (Nystatin Powder 15 Gm Bottle) 1 appl TOPICAL BID [facility]; Protocol Last Admin: 07/19/21 07:57 Dose: 1 appl Documented by: LATRELL Senna (Sennosides 8.6 Mg Tablet) 17.2 mg PO BEDTIME PRN PRN Reason: Constipation Sodium Chloride (0.9 % Sodium Chloride Flush 3 Ml Syringe) 3 ml IVFLUSH QSHIFT [facility] Last Admin: 07/19/21 08:17 Dose: Not Given Documented by: LATRELL Non-Admin Reason: IV Running Labs CBC & Chem 7: 07/19/21 06:55 07/18/21 23:05 Labs: Laboratory Results - last 24 hr 07/18/21 07/18/21 07/18/21 18:20 22:03 23:05 MCV 88.5 MCH 27.9 MCHC 31.5 RDW 15.9 Plt Count 139 L MPV 11.7 Immature Gran % (Auto) 0.3 Neut % (Auto) 65.1 Lymph % (Auto) 24.6 [place] % (Auto) 6.7 Eos % (Auto) 3.2 Baso % (Auto) 0.1 Lymph # (Auto) 2.5 [place] # (Auto) 0.7 Eos # (Auto) 0.3 Baso # (Auto) 0.0 Abs Immat Gran (auto) 0.03 Absolute Neuts (auto) 6.5 Absolute Nucleated RBC 0.000 Nucleated RBC % (auto) 0.0 Anion Gap Estim Creat Clear Calc Estimated GFR POC Glucose 259 H 203 H Random Glucose Calcium 07/18/21 07/19/21 07/19/21 23:05 06:55 07:16 MCV 88.0 MCH 27.6 MCHC 31.4 RDW 15.9 Plt Count 134 L MPV 12.5 H Immature Gran % (Auto) Neut % (Auto) Lymph % (Auto) [place] % (Auto) Eos % (Auto) Baso % (Auto) Lymph # (Auto) [place] # (Auto) Eos # (Auto) Baso # (Auto) Abs Immat Gran (auto) Absolute Neuts (auto) Absolute Nucleated RBC 0.000 Nucleated RBC % (auto) 0.0 Anion Gap 9 L Estim Creat Clear Calc 112.7 Estimated GFR > 60 POC Glucose 167 H Random Glucose 217 H Calcium 8.5 07/19/21 13:27 MCV MCH MCHC RDW Plt Count MPV Immature Gran % (Auto) Neut % (Auto) Lymph % (Auto) [place] % (Auto) Eos % (Auto) Baso % (Auto) Lymph # (Auto) [place] # (Auto) Eos # (Auto) Baso # (Auto) Abs Immat Gran (auto) Absolute Neuts (auto) Absolute Nucleated RBC Nucleated RBC % (auto) Anion Gap Estim Creat Clear Calc Estimated GFR POC Glucose 128 H Random Glucose Calcium Microbiology Microbiology Results: Microbiology 07/17/21 Unknown Urine Culture - Final Urine Catheterized - Rai Catheter Assessment and Plan (1) Colitis: Status: Acute Assessment and Plan: 70-year-old female with a past medical history of hypertension, hyperlipidemia, aortic stenosis, diabetes, obesity, osteoarthritis, paroxysmal AFib, CHF, hist ory of CVA, COPD, history of chronic indwelling Rai, recurrent UTI; recent admission to the hospital for right lower extremity cellulitis presented to the hospital with nausea vomiting and diarrhea and CT finding of colitis Bradycardia--possibly related to BB, dose will be reduced to 25 bid per cardiology. No indication for pace maker at this time. Colitis: Stool studies pending, C dif is negative. No indication for PO vanco. Flagyl, Ertapenem UTI d/t chronic rai, ESBL + change Ceftriaxone to Ertapenem and ID eval for possible IV at discharge Bright red blood per rectum:? Patient noted to have blood mixed with stool. No further bleeding, H/H normal. Restart Eliquis DM: Hyperglycemia, continue Lantus, SSI, DC D5 HTN: BP on lower side, hold antihypertensives for now CHF: appear euvolemic, hold diuretics Afib: rate controlled. c/w Metoprolol. Hold Eliquis in light of GIB Morbid obesity d/t excess calory and limitted mobility, aware of need for weight loss and means and potential health benefit of lossing weight Code Staus: Full code. Quality Stroke Does the patient have a stroke diagnosis?: No VTE Prior VTE?: No VTE Risk Level:: Medical - low VTE Device Contraindication: N/A - Device Ordered VTE Drug Contraindication: Treatment Not Indicated
[2021-07-19 17:07] VITALS: BP 125/50; PULSE 58; RESP 156; TEMP 37; O2SAT 99
[2021-07-19 17:17] LABS: Glucose, Whole Blood 135 mg/dL (60-115)
--- NOTE | 2021-07-19 20:36 | PC.NURSE ---
Assumed care of pt at 1900. Pt resting in bed, in NAD, alert and oriented, even and non-labored resps. Tolerated dinner. Assisted w/ bedpan. Awaiting inpt bed assignment
[2021-07-19] MEDS: Apixaban 5 MG TABLET PO (20:59)
[2021-07-19] MEDS: Insulin Glargine,Hum.rec.anlog 100 UNIT/ML 10 ML VIAL 30 UNIT SUBCUT (21:00)
[2021-07-19 21:09] VITALS: BP 139/45; PULSE 86; RESP 16; TEMP 36.3; O2SAT 97
[2021-07-19 21:37] LABS: Glucose, Whole Blood 282 mg/dL (60-115)
[2021-07-20 00:01] VITALS: BP 143/50; PULSE 75; RESP 21; O2SAT 89
--- NOTE | 2021-07-20 01:17 | PC.NURSE ---
Hospitalist notes indicate that eliquis is to be held d/t c/f GIB. This RN unaware of this, NOC eliquis was administered as charted. Will endorse to day shift that med should not be given. No bleeding or sx of blood loss noted. BM earlier in shift also w/o blood
[2021-07-20] MEDS: metroNIDAZOLE/NS 500 MG/100 ML PIGGYBACK 100 MG IV ×2 (03:06→11:17)
[2021-07-20 05:53] VITALS: BP 154/55; PULSE 68; RESP 12; O2SAT 95
[2021-07-20 07:36] LABS: Glucose, Whole Blood 300 mg/dL (60-115)
[2021-07-20] MEDS: Apixaban 5 MG TABLET PO (09:14)
[2021-07-20] MEDS: Furosemide 20 MG TABLET PO (09:15)
[2021-07-20] MEDS: Gabapentin 300 MG CAPSULE PO ×2 (09:15→15:14)
[2021-07-20] MEDS: Atorvastatin Calcium 20 MG TABLET PO (09:15)
[2021-07-20] MEDS: Metoprolol Tartrate 25 MG TABLET PO (09:15)
[2021-07-20] MEDS: Nystatin Powder 15 GM BOTTLE 1 APPL TOPICAL (09:16)
[2021-07-20] MEDS: Insulin Lispro 100 UNIT/ML 3 ML VIAL SUBCUT ×2 (09:17→17:35)
[2021-07-20] MEDS: Insulin Glargine,Hum.rec.anlog 100 UNIT/ML 10 ML VIAL 16 UNIT SUBCUT (09:17)
[2021-07-20] MEDS: 0.9 % Sodium Chloride Flush 3 ML SYRINGE IVFLUSH ×2 (09:30→15:16)
[2021-07-20 09:39] VITALS: BP 160/57; PULSE 70; RESP 19; O2SAT 95
--- NOTE | 2021-07-20 11:43 | P.PNCA_ITS ---
Subjective Subjective Date of Service: 07/20/21 Interval history: Denies any cardiac symptoms Review of Systems Review of Systems Yes all other systems are reviewed and are negative Cardiovascular: Reports as per HPI, Reports no additional cardiovascular complaints, Denies acrocyanosis, Denies cool extremities, Denies painful fingertips, Denies chest pain, Denies chest pain at rest, Denies diaphoresis, Denies syncope, Denies irregular heart rhythm, Denies claudication, Denies leg edema, Denies lightheadedness, Denies palpitations and Denies dyspnea Respiratory: Denies dyspnea Denies syncope Endocrine: Denies palpitations Physical Exam Vital Signs: Last Vital Signs Temp 97.4 F 07/19/21 21:09 Pulse 70 07/20/21 09:39 Resp 19 07/20/21 09:39 BP 160/57 H 07/20/21 09:39 Pulse Ox 95 07/20/21 09:39 BMI result Body Mass Index 61.8 Const General: no acute distress HENMT Other: Unremarkable Neck Neck: Yes normal visual inspection Chest Chest palpation & inspection: normal inspection of the chest Resp Auscultation: no crackles and no wheezes Cardio Palpation: normal PMI Heart sounds: S1 normal heart sound present, S2 normal heart sound present, no gallops, Murmur heart sound present (3/6 NATACHA aortic area) and no rubs GI Palpation (GI): Soft to palpation Back/Spine/Pelvis Other: unremarkable Skin Lesions: other Neuro Cranial nerves: Yes Other cranial nerve findings present Extrem General: Yes other Psych Mental Status: other Objective Labs and Meds Result diagrams: 07/19/21 06:55 07/18/21 23:05 Lab results: Laboratory Results - last 24 hr 07/19/21 07/19/21 07/19/21 13:27 17:06 21:07 POC Glucose 128 H 135 H 282 H 07/20/21 07:16 POC Glucose 300 H Progress Note: A&P Assessment and plan (1) Sinus bradycardia: Status: Acute (2) Non-rheumatic aortic stenosis: Status: Acute Assessment and Plan: She is on a smaller dose of beta-blockers and the heart rate looks much better. Currently about 70/Min and sinus rhythm. Echocardiogram reviewed. Difficult study due to body habitus but LVEF seems preserved. Aortic stenosis is no more than moderate. No further workup at this time and if she is able to come to office, can monitor. Fall Risk Details Current Medications: Current Medications Acetaminophen (Acetaminophen 325 Mg Tablet) 650 mg PO Q6H PRN PRN Reason: Pain, Mild (Pain Scale 1-3) Last Admin: 07/19/21 04:54 Dose: 650 mg Documented by: Albuterol Sulfate (Albuterol Sulfate 90 Mcg 8 Gm Inhaler) 2 puff INHALE Q4H PRN PRN Reason: Wheezing Albuterol/Ipratropium (Albuterol/Iprat 2.5/0.5mg 3 Ml Ampul.Neb) 3 ml INHALE RQ4H PRN PRN Reason: Shortness of Breath/Wheezing Albuterol/Ipratropium (Albuterol/Iprat 2.5/0.5mg 3 Ml Ampul.Neb) 3 ml INHALE Q4H PRN PRN Reason: Wheezing Apixaban (Apixaban 5 Mg Tablet) 5 mg PO BID [facility] Last Admin: 07/20/21 09:14 Dose: 5 mg Documented by: Atorvastatin Calcium (Atorvastatin Calcium 20 Mg Tablet) 20 mg PO DAILY [facility] Last Admin: 07/20/21 09:15 Dose: 20 mg Documented by: Furosemide (Furosemide 20 Mg Tablet) 20 mg PO DAILY [facility]; Protocol Last Admin: 07/20/21 09:15 Dose: 20 mg Documented by: Gabapentin (Gabapentin 300 Mg Capsule) 300 mg PO TID [facility] Last Admin: 07/20/21 09:15 Dose: 300 mg Documented by: Metronidazole (Flagyl) 500 mg in 100 mls @ 100 mls/hr IV Q8H [facility] Last Admin: 07/20/21 11:17 Dose: 100 mls/hr Documented by: Meropenem 1 gm/ Sodium (Chloride) 100 mls @ 200 mls/hr IV Q8H [facility] Last Admin: 07/20/21 09:35 Dose: 200 mls/hr Documented by: Insulin Glargine (Insulin Glargine,Hum.Rec.Anlog 100 Unit/Ml 10 Ml Vial) 30 unit SUBCUT BEDTIME [facility] Last Admin: 07/19/21 21:00 Dose: 30 unit Documented by: Insulin Glargine (Insulin Glargine,Hum.Rec.Anlog 100 Unit/Ml 10 Ml Vial) 16 unit SUBCUT DAILY [facility] Last Admin: 07/20/21 09:17 Dose: 16 unit Documented by: Insulin Human Lispro (Insulin Lispro 100 Unit/Ml 3 Ml Vial) 0 unit SUBCUT BIDAC [facility]; Protocol Last Admin: 07/20/21 09:17 Dose: 6 unit Documented by: Melatonin (Melatonin 3 Mg Tablet) 6 mg PO BEDTIME PRN PRN Reason: Insomnia Metoprolol Tartrate (Metoprolol Tartrate 25 Mg Tablet) 25 mg PO BID [facility]; Protocol Last Admin: 07/20/21 09:15 Dose: 25 mg Documented by: Non-Formulary Medication (Fluticasone Propionate [Flovent Diskus]) 1 inhalation INHALE BID [facility] Nystatin (Nystatin Powder 15 Gm Bottle) 1 appl TOPICAL BID [facility]; Protocol Last Admin: 07/20/21 09:16 Dose: 1 appl Documented by: Senna (Sennosides 8.6 Mg Tablet) 17.2 mg PO BEDTIME PRN PRN Reason: Constipation Sodium Chloride (0.9 % Sodium Chloride Flush 3 Ml Syringe) 3 ml IVFLUSH QSHIFT [facility] Last Admin: 07/20/21 09:30 Dose: 3 ml Documented by: Time Spent With Patient Time: Total time spent is greater than 50% in coordination of care (as documented) at patient's floor/unit and/or counseling patient: Time with patient: less than 15 minutes Progress Note: Quality Stroke Does the patient have a stroke diagnosis?: No Procedures Date of Service Date of Service: 07/20/21
[2021-07-20 11:57] LABS: Glucose, Whole Blood 280 mg/dL (60-115)
--- NOTE | 2021-07-20 12:39 | HO.PM.IMPN ---
Subjective Subjective Date of Service: 07/20/21 Interval History: She is feeling better, no abdominal pain, no blood in stool. Bradyardia resolved, tolerating diet Review of Systems no fever +abdominal pain, diarrhea Physical Exam Vital Signs: Vital Signs: Last Vital Signs Temp 97.4 F 07/19/21 21:09 Pulse 70 07/20/21 09:39 Resp 19 07/20/21 09:39 BP 160/57 H 07/20/21 09:39 Pulse Ox 95 07/20/21 09:39 BMI result Body Mass Index 61.8 Const: Other: General: AO X 3, no acute distress, obese Resp: CTA bilateral CVS: S1,S2,RRR GI: +BS, NT, no distention Skin: andrés venous stasis changes of both legs with dry skin and discoloration Neuro: motor grossly intact Psych: appropriate affect Objective Data Active Medications Acetaminophen (Acetaminophen 325 Mg Tablet) 650 mg PO Q6H PRN PRN Reason: Pain, Mild (Pain Scale 1-3) Last Admin: 07/19/21 04:54 Dose: 650 mg Documented by: JOHN Albuterol Sulfate (Albuterol Sulfate 90 Mcg 8 Gm Inhaler) 2 puff INHALE Q4H PRN PRN Reason: Wheezing Albuterol/Ipratropium (Albuterol/Iprat 2.5/0.5mg 3 Ml Ampul.Neb) 3 ml INHALE RQ4H PRN PRN Reason: Shortness of Breath/Wheezing Albuterol/Ipratropium (Albuterol/Iprat 2.5/0.5mg 3 Ml Ampul.Neb) 3 ml INHALE Q4H PRN PRN Reason: Wheezing Apixaban (Apixaban 5 Mg Tablet) 5 mg PO BID [facility] Last Admin: 07/20/21 09:14 Dose: 5 mg Documented by: MODE Atorvastatin Calcium (Atorvastatin Calcium 20 Mg Tablet) 20 mg PO DAILY [facility] Last Admin: 07/20/21 09:15 Dose: 20 mg Documented by: MODE Fluticasone Propionate (Fluticasone Propionate 100 Mcg Blst.W.Dev) 1 puff INHALE RBID [facility] Furosemide (Furosemide 20 Mg Tablet) 20 mg PO DAILY [facility]; Protocol Last Admin: 07/20/21 09:15 Dose: 20 mg Documented by: MODE Gabapentin (Gabapentin 300 Mg Capsule) 300 mg PO TID [facility] Last Admin: 07/20/21 09:15 Dose: 300 mg Documented by: MODE Metronidazole (Flagyl) 500 mg in 100 mls @ 100 mls/hr IV Q8H [facility] Last Admin: 07/20/21 11:17 Dose: 100 mls/hr Documented by: MODE Meropenem 1 gm/ Sodium (Chloride) 100 mls @ 200 mls/hr IV Q8H [facility] Last Admin: 07/20/21 09:35 Dose: 200 mls/hr Documented by: MODE Insulin Glargine (Insulin Glargine,Hum.Rec.Anlog 100 Unit/Ml 10 Ml Vial) 30 unit SUBCUT BEDTIME [facility] Last Admin: 07/19/21 21:00 Dose: 30 unit Documented by: TOAN Insulin Glargine (Insulin Glargine,Hum.Rec.Anlog 100 Unit/Ml 10 Ml Vial) 16 unit SUBCUT DAILY [facility] Last Admin: 07/20/21 09:17 Dose: 16 unit Documented by: MODE Insulin Human Lispro (Insulin Lispro 100 Unit/Ml 3 Ml Vial) 0 unit SUBCUT BIDAC [facility]; Protocol Last Admin: 07/20/21 09:17 Dose: 6 unit Documented by: MODE Melatonin (Melatonin 3 Mg Tablet) 6 mg PO BEDTIME PRN PRN Reason: Insomnia Metoprolol Tartrate (Metoprolol Tartrate 25 Mg Tablet) 25 mg PO BID [facility]; Protocol Last Admin: 07/20/21 09:15 Dose: 25 mg Documented by: MODE Nystatin (Nystatin Powder 15 Gm Bottle) 1 appl TOPICAL BID [facility]; Protocol Last Admin: 07/20/21 09:16 Dose: 1 appl Documented by: MODE Senna (Sennosides 8.6 Mg Tablet) 17.2 mg PO BEDTIME PRN PRN Reason: Constipation Sodium Chloride (0.9 % Sodium Chloride Flush 3 Ml Syringe) 3 ml IVFLUSH QSHIFT [facility] Last Admin: 07/20/21 09:30 Dose: 3 ml Documented by: MODE Labs CBC & Chem 7: 07/19/21 06:55 07/18/21 23:05 Labs: Laboratory Results - last 24 hr 07/19/21 07/19/2122 13:27 17:06 21:07 POC Glucose 128 H 135 H 282 H 07/20/21 07/20/21 07:16 11:48 POC Glucose 300 H 280 H Assessment and Plan (1) Sinus bradycardia: Status: Acute (2) Colitis: Status: Acute (3) Acute hyperglycemia: Status: Acute Assessment and Plan: 70-year-old female with a past medical history of hypertension, hyperlipidemia, aortic stenosis, diabetes, obesity, osteoarthritis, paroxysmal AFib, CHF, history of CVA, COPD, history of chronic indwelling Rai, recurrent UTI; recent admission to the hospital for right lower extremity cellulitis presented to the hospital with? nausea vomiting and diarrhea and CT finding of colitis Bradycardia--possibly related to BB, dose will be reduced to 25 bid per cardiology. No indication for pace maker at this time. Colitis: Stool studies pending, C dif is negative. No indication for PO vanco. Flagyl, Ertapenem UTI d/t chronic rai, with positive ecoli, probably chronic colonization, ID doesn't seem to think IV Abx is warranted Bright red blood per rectum:? Patient noted to have blood mixed with stool. No further bleeding, H/H normal. Restart Eliquis DM: Hyperglycemia, continue Lantus, SSI, DC D5 HTN: BP on lower side, hold antihypertensives for now CHF: appear euvolemic, hold diuretics Afib: rate controlled. c/w Metoprolol. Hold Eliquis in light of GIB Morbid obesity d/t excess calory and limitted mobility, aware of need for weight loss and means and potential health benefit of lossing weight Code Staus: Full code. Quality Stroke Does the patient have a stroke diagnosis?: No VTE Prior VTE?: No VTE Risk Level:: Medical - low VTE Device Contraindication: N/A - Device Ordered VTE Drug Contraindication: Treatment Not Indicated
--- NOTE | 2021-07-20 12:51 | PC.NURSE ---
nad, no complaints, ate a full breakfast, joking and laughing, medicated as ordered,
--- NOTE | 2021-07-20 13:04 | MHC.CM.PN ---
PATIENT NO LONGER WILL NEED MIDLINE PLAN IS TO TRY TO GET PATIENT DISCHARGED BACK HOME TODAY WITH RESUMPTION OF HER ACCOUNT SUPPORT ANALYST AND [employer] [facility] SERVICES. CASE MANAGEMENT FOLLOWING FOR ANY CHANGES TO DC PLAN, WELL TO SET UP TRANSPORT HOME
[2021-07-20 15:14] VITALS: BP 155/67; PULSE 72; RESP 17; TEMP 36.7; O2SAT 95
--- NOTE | 2021-07-20 15:19 | P.DS_ITS ---
DS: Providers Provider Date of Service: 07/20/21 Date of admission: 07/17/21 23:24 Primary care physician: Cherise Hamm MD Consults: 07/17/21 23:24 Consult to Gastroenterology Routine Consulting Provider: Alexi Alejandro Reason for consultation: BRBPR; COLITIS; ?Cdiff 07/19/21 09:58 Consult to Cardiology Routine Consulting Provider: Bertrand Gill Reason for consultation: AFIB, lisa ? SSS Has provider been notified: No 07/19/21 14:52 Consult to Infectious Diseases Routine Consulting Provider: Cookie Benz Reason for consultation: resistant E.coli DS: Diagnosis Discharge Diagnosis (1) Sinus bradycardia: Status: Resolved (2) Colitis: Status: Resolved (3) Acute hyperglycemia: Status: Resolved DS: Summary Hospital Course Hospital Course: Chief Complaint: diarrhea 70-year-old female with a past medical history of hypertension, hyperlipidemia, aortic stenosis, diabetes, obesity, osteoarthritis, paroxysmal AFib, CHF, history of CVA, COPD, history of chronic indwelling Rai, recurrent UTI; recent admission to the hospital for right lower extremity cellulitis presented to the hospital with a chief complaint of nausea vomiting and diarrhea.? Patient reports that over the past few days he has been having nausea vomiting and diarrhea; loose watery and foul smelling; denies any bright red blood per rectum at home; denies any abdominal discomfort.? Denies any chest pain palpitations lightheadedness or dizziness.? Review of all other systems is negative except mentioned above ER course: Per ER team patient in the ER noted to have foul-smelling loose watery stool, followed by had an episode of bowel movement with blood mixed with stool; bright red blood; CT scan showed colitis.? CD4 sent.? Empirically given p.o. vancomycin.? Admitted for further management. Hospital course: Bradycardia--possibly related to BB, her heart rate was in 30s and 40s but without significant pause. Metoprololo dose has been reduced to half at 25 bid and and heart rate in 60 and 70s and no further testing advised by cardiology Colitis: C dif is negative. Treated with Flagyl and and Ertapenem, and will discharged with oral Ceftina nd Flagyl UTI d/t chronic rai, with positive ecoli, probably chronic colonization, ID doesn't seem to think IV Abx is not warranted Bright red blood per rectum:? Patient noted to have blood mixed with stool. No further bleeding, H/H normal. Restarted Eliquis without any issue DM: Hyperglycemia, continue Lantus, SSI, DC D5 HTN: to resume prior med other than metorpolol changed to 25 bid from 50 bid CHF: appear euvolemic, hold diuretics Afib: rate controlled. c/w Metoprolol. Hold Eliquis in light of GIB Morbid obesity d/t excess calory and limitted mobility, aware of need for weight loss and means and potential health benefit of lossing weight Code Staus: Full code Time Spent with Patient Time attestation: Total time spent providing and/or coordinating discharge services: Discharge coordination time: Greater than 30 minutes Quality: Stroke Does the patient have a stroke diagnosis?: No Physical Exam Verdana 4l Vital Signs: Verdana 4d Verdana 4d Vital Signs: Verdana 4d Verdana 4Bd Last Vital Signs Verdana 4d Packaging Line Attendant New 4d Packaging Line Attendant New 4d Temp 98.0 F 07/20/21 15:14 Packaging Line Attendant New 4d Pulse 72 07/20/21 15:14 Packaging Line Attendant New 4d Resp 17 07/20/21 15:14 BP 155/67 H 07/20/21 15:14 Pulse Ox 95 07/20/21 15:14 BMI result Body Mass Index 61.8 DS: Data Data Completed and Pending Completed studies during hospitalization [Text1]: Procedures Excision of Large Intestine, Via Natural or Artificial Opening Endoscopic, Diagnostic (09/20/20) Labs on day of discharge: Laboratory Results - last 24 hr 07/19/21 07/19/21 07/20/21 17:06 21:07 07:16 POC Glucose 135 H 282 H 300 H 07/20/21 11:48 POC Glucose 280 H Discharge Plan Discharge Anticipated Discharge Date/Time: 07/20/21 13:12 Patient Disposition: Home Health Service Discharge Diagnosis: Colitis, bradycardia Referrals: [facility] [Outside] - 1 Week Cherise Hamm MD [Primary Care Provider] - 1 Week Discharge Medications: New metronidazole 500 mg tablet 500 mg PO BID 10 Days Qty: 20 0RF metoprolol tartrate 25 mg tablet 25 mg PO BID Qty: 60 0RF Continued Flovent Diskus 50 mcg/actuation blister with device 1 inh inhalation BID 0RF ipratropium-albuterol 0.5 mg-3 mg(2.5 mg base)/3 mL solution for nebulization 1 vial inhalation Q4-6H PRN (Reason: Wheezing) 0RF aspirin 81 mg tablet,delayed release (DR/EC) 1 tab PO DAILY 0RF simvastatin 40 mg tablet 40 mg PO BEDTIME 0RF gabapentin 300 mg capsule 300 mg PO TID 0RF lisinopril 5 mg tablet 5 mg PO DAILY 0RF insulin lispro [Humalog U-100 Insulin] 100 unit/mL solution See Protocol sliding scale dose subcut BIDAC 0RF Protocol: Insulin Correction Scale Less than or equal to 110 ---- Give (units): 0 111 to 150 Give (units): 0 151 to 200 Give (units): 2 201 to 250 Give (units): 4 251 to 300 Give (units): 6 301 to 350 Give (units): 8 Greater than 350 Give (units): 10 Call MD if Blood Glucose > : 350 albuterol sulfate [Proventil HFA] 90 mcg/actuation HFA aerosol inhaler 2 puff inhalation Q4-6H PRN (Reason: Wheezing) 0RF Lantus Solostar U-100 Insulin 100 unit/mL (3 mL) insulin pen 16 unit subcut DAILY 0RF Eliquis 5 mg tablet 5 mg PO BID 0RF furosemide 20 mg tablet 20 mg PO DAILY 0RF nystatin [Nyamyc] 100,000 unit/gram powder 1 appl topical BID Qty: 60 0RF Rx Instructions: Apply at the affected area twice daily Discontinued metoprolol tartrate 50 mg tablet 50 mg PO BID 0RF Discharge Orders: Discharge Order (Routine); Ordered 07/20/21 Ordered By: Juanjose Demarco Diet: advance to usual diet and diabetic diet Activity on Discharge: As tolerated Stand Alone Forms: Patient Portal Discharge page Care Plan Goals: Full recovery from colitis Health Concerns: colitis Plan of Treatment: Take Ceftin and Flagyl as directed and follow up with PCP Assessment: As above Discharge Date/Time: 07/20/21 18:20
--- NOTE | 2021-07-20 15:49 | P.CNID_ITS ---
History of Present Illness Data of Consult Service Date: 07/20/21 Requesting physician: Juanjose Demarco Primary Care Provider: Cherise Hamm MD HPI Reason for consult: diarrhea,vomiting She reports with nausea ,vomiting and diarrhea for a day She has chronic Molina catheter and lives at home with VNA care She has mild pyuria She has had mixed carlito and E coli sensitive to antibiotics in past She has ESBL E coli now in urine Review of Systems Verdana 4l Review of Systems: Yes all other systems are reviewed and Verdana 4d are negative [facility] Past Medical History Medical History (Updated 07/28/21 @ 00:02 by Abdirashid Al) Aortic stenosis Bacteriuria Chronic indwelling Molina catheter Chronic UTI Chronic UTI Congestive heart failure COPD (chronic obstructive pulmonary disease) Diabetes Diarrhea Glaucoma H/O: CVA (cerebrovascular accident) Hypertension Non-rheumatic aortic stenosis Obesity Osteoarthritis Paroxysmal atrial fibrillation Severe sepsis Family History Family History Father No problems noted. Mother No problems noted. Family history: reviewed and not pertinent Surgical History Surgical History H/O adenoidectomy H/O enucleation of left eyeball History of tonsillectomy Social History Social History Household Members: None Housing: Apartment Do you presently have visiting nurse or other home services: Yes Unable to assess alcohol history related to: Unknown Alcohol intake: never Patient Tobacco Use Status: Never used Tobacco Second Hand Smoke Exposure: No Advance Directives Date on File: 07/09/20 service: No Current occupational status: disabled Meds Allergies Allergy/AdvReac Type Severity Reaction Status Date / Time silver sulfadiazine Allergy Unknown UNK Verified 07/27/21 14:29 [From SILVADENE] Active Medications: Current Medications Acetaminophen (Acetaminophen 325 Mg Tablet) 650 mg PO Q6H PRN PRN Reason: Pain, Mild (Pain Scale 1-3) Last Admin: 07/19/21 04:54 Dose: 650 mg Documented by: Albuterol Sulfate (Albuterol Sulfate 90 Mcg 8 Gm Inhaler) 2 puff INHALE Q4H PRN PRN Reason: Wheezing Albuterol/Ipratropium (Albuterol/Iprat 2.5/0.5mg 3 Ml Ampul.Neb) 3 ml INHALE RQ4H PRN PRN Reason: Shortness of Breath/Wheezing Albuterol/Ipratropium (Albuterol/Iprat 2.5/0.5mg 3 Ml Ampul.Neb) 3 ml INHALE Q 4H PRN PRN Reason: Wheezing Apixaban (Apixaban 5 Mg Tablet) 5 mg PO BID [facility] Last Admin: 07/20/21 09:14 Dose: 5 mg Documented by: Atorvastatin Calcium (Atorvastatin Calcium 20 Mg Tablet) 20 mg PO DAILY [facility] Last Admin: 07/20/21 09:15 Dose: 20 mg Documented by: Fluticasone Propionate (Fluticasone Propionate 100 Mcg Blst.W.Dev) 1 puff INHALE RBID [facility] Furosemide (Furosemide 20 Mg Tablet) 20 mg PO DAILY [facility]; Protocol Last Admin: 07/20/21 09:15 Dose: 20 mg Documented by: Gabapentin (Gabapentin 300 Mg Capsule) 300 mg PO TID [facility] Last Admin: 07/20/21 15:14 Dose: 300 mg Documented by: Metronidazole (Flagyl) 500 mg in 100 mls @ 100 mls/hr IV Q8H [facility] Last Infusion: 07/20/21 14:56 Dose: Infused Documented by: Meropenem 1 gm/ Sodium (Chloride) 100 mls @ 200 mls/hr IV Q8H [facility] Last Admin: 07/20/21 15:14 Dose: 200 mls/hr Documented by: Insulin Glargine (Insulin Glargine,Hum.Rec.Anlog 100 Unit/Ml 10 Ml Vial) 30 unit SUBCUT BEDTIME [facility] Last Admin: 07/19/21 21:00 Dose: 30 unit Documented by: Insulin Glargine (Insulin Glargine,Hum.Rec.Anlog 100 Unit/Ml 10 Ml Vial) 16 u nit SUBCUT DAILY [facility] Last Admin: 07/20/21 09:17 Dose: 16 unit Documented by: Insulin Human Lispro (Insulin Lispro 100 Unit/Ml 3 Ml Vial) 0 unit SUBCUT BIDAC [facility]; Protocol Last Admin: 07/20/21 09:17 Dose: 6 unit Documented by: Melatonin (Melatonin 3 Mg Tablet) 6 mg PO BEDTIME PRN PRN Reason: Insomnia Metoprolol Tartrate (Metoprolol Tartrate 25 Mg Tablet) 25 mg PO BID [facility]; Protocol Last Admin: 07/20/21 09:15 Dose: 25 mg Documented by: Nystatin (Nystatin Powder 15 Gm Bottle) 1 appl TOPICAL BID [facility]; Protocol Last Admin: 07/20/21 09:16 Dose: 1 appl Documented by: Senna (Sennosides 8.6 Mg Tablet) 17.2 mg PO BEDTIME PRN PRN Reason: Constipation Sodium Chloride (0.9 % Sodium Chloride Flush 3 Ml Syringe) 3 ml IVFLUSH QSHIFT [facility] Last Admin: 07/20/21 15:16 Dose: 3 ml Documented by: Home Medications Medication Instructions Recorded Confirmed Last Taken Type albuterol sulfate 2 puff 01/23/21 07/27/21 Unknown History 90 mcg/actuation INHALATION Q4-6H PRN aerosol inhaler (Proventil HFA) apixaban 5 mg 5 mg PO BID 01/23/21 07/27/21 Unknown History tablet (Eliquis) aspirin 81 mg 1 tab PO DAILY 01/23/21 07/27/21 Unknown History tablet,delayed release fluticasone 1 inh INHALATION 01/23/21 07/27/21 Unknown History propionate 50 BID mcg/actuation blister powder for inhalation (Flovent Diskus) gabapentin 300 mg 300 mg PO TID 01/23/21 07/27/21 Unknown History capsule insulin glargine 16 unit SUBCUT 01/23/21 07/27/21 Unknown History 100 unit/mL (3 DAILY mL) subcutaneous pen (Lantus Solostar U-100 Insulin) insulin lispro See Protocol 01/23/21 07/27/21 Unknown History 100 unit/mL SUBCUT BIDAC subcutaneous solution (Humalog U-100 Insulin) ipratropium 0.5 1 vial 01/23/21 07/27/21 Unknown History mg-albuterol 3 mg INHALATION Q4-6H PRN (2.5 mg base)/3 mL nebulization soln lisinopril 5 mg 5 mg PO DAILY 01/23/21 07/27/21 Unknown History tablet simvastatin 40 mg 40 mg PO BEDTIME 01/23/21 07/27/21 Unknown History tablet furosemide 20 mg 20 mg PO DAILY 05/04/21 07/27/21 Unknown History tablet Physical Exam Verdana 4l Vital Signs: Verdana 4d Verdana 4d Vital Signs: Verdana 4d Verdana 4Bd Last Vital Signs Verdana 4d Administrative Fellow New 4d Administrative Fellow New 4d Temp 98.0 F 07/20/21 15:14 Administrative Fellow New 4d Pulse 72 07/20/21 15:14 Administrative Fellow New 4d Resp 17 07/20/21 15:14 BP 155/67 H 07/20/21 15:14 Pulse Ox 95 07/20/21 15:14 BMI result Body Mass Index 61.8 Const: General: cooperative Eyes: General: appearance normal, both eyes and all related structures Resp: Effort & Inspection: normal respiratory effort Cardio: Rate: regular rate Rhythm: regular rhythm GI: Palpation (GI): Soft to palpation and nontender Extrem: General: Yes normal to inspection Results Labs CBC & Chem 7: 07/19/21 06:55 07/18/21 23:05 Microbiology Microbiology Results: Microbiology 07/17/21 Unknown Urine Catheterized - Molina Catheter Urine Culture - Final Assessment and Plan (1) Bacteriuria: Status: Acute 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
--- NOTE | 2021-07-20 15:49 | W.PM.IDCN ---
History of Present Illness Data of Consult Service Date: 07/20/21 Requesting physician: Juanjose Demarco Primary Care Provider: Cherise Hamm MD HPI Reason for consult: diarrhea,vomiting She reports with nausea ,vomiting and diarrhea for a day She has chronic Molina catheter and lives at home with VNA care She has mild pyuria She has had mixed carlito and E coli sensitive to antibiotics in past She has ESBL E coli now in urine Review of Systems Review of Systems: Yes all other systems are reviewed and are negative [facility] Past Medical History Medical History (Updated 07/28/21 @ 00:02 by Abdirashid Al) Aortic stenosis Bacteriuria Chronic indwelling Molina catheter Chronic UTI Chronic UTI Congestive heart failure COPD (chronic obstructive pulmonary disease) Diabetes Diarrhea Glaucoma H/O: CVA (cerebrovascular accident) Hypertension Non-rheumatic aortic stenosis Obesity Osteoarthritis Paroxysmal atrial fibrillation Severe sepsis Family History Family History Father No problems noted. Mother No problems noted. Family history: reviewed and not pertinent Surgical History Surgical History H/O adenoidectomy H/O enucleation of left eyeball History of tonsillectomy Social History Social History Household Members: None Housing: Apartment Do you presently have visiting nurse or other home services: Yes Unable to assess alcohol history related to: Unknown Alcohol intake: never Patient Tobacco Use Status: Never used Tobacco Second Hand Smoke Exposure: No Advance Directives Date on File: 07/09/20 service: No Current occupational status: disabled Meds Allergies Allergy/AdvReac Type Severity Reaction Status Date / Time silver sulfadiazine Allergy Unknown UNK Verified 07/27/21 14:29 [From [facility]] Active Medications: Current Medications Acetaminophen (Acetaminophen 325 Mg Tablet) 650 mg PO Q6H PRN PRN Reason: Pain, Mild (Pain Scale 1-3) Last Admin: 07/19/21 04:54 Dose: 650 mg Documented by: Albuterol Sulfate (Albuterol Sulfate 90 Mcg 8 Gm Inhaler) 2 puff INHALE Q4H PRN PRN Reason: Wheezing Albuterol/Ipratropium (Albuterol/Iprat 2.5/0.5mg 3 Ml Ampul.Neb) 3 ml INHALE RQ4H PRN PRN Reason: Shortness of Breath/Wheezing Albuterol/Ipratropium (Albuterol/Iprat 2.5/0.5mg 3 Ml Ampul.Neb) 3 ml INHALE Q4H PRN PRN Reason: Wheezing Apixaban (Apixaban 5 Mg Tablet) 5 mg PO BID [facility] Last Admin: 07/20/21 09:14 Dose: 5 mg Documented by: Atorvastatin Calcium (Atorvastatin Calcium 20 Mg Tablet) 20 mg PO DAILY [facility] Last Admin: 07/20/21 09:15 Dose: 20 mg Documented by: Fluticasone Propionate (Fluticasone Propionate 100 Mcg Blst.W.Dev) 1 puff INHALE RBID [facility] Furosemide (Furosemide 20 Mg Tablet) 20 mg PO DAILY [facility]; Protocol Last Admin: 07/20/21 09:15 Dose: 20 mg Documented by: Gabapentin (Gabapentin 300 Mg Capsule) 300 mg PO TID [facility] Last Admin: 07/20/21 15:14 Dose: 300 mg Documented by: Metronidazole (Flagyl) 500 mg in 100 mls @ 100 mls/hr IV Q8H [facility] Last Infusion: 07/20/21 14:56 Dose: Infused Documented by: Meropenem 1 gm/ Sodium (Chloride) 100 mls @ 200 mls/hr IV Q8H [facility] Last Admin: 07/20/21 15:14 Dose: 200 mls/hr Documented by: Insulin Glargine (Insulin Glargine,Hum.Rec.Anlog 100 Unit/Ml 10 Ml Vial) 30 unit SUBCUT BEDTIME [facility] Last Admin: 07/19/21 21:00 Dose: 30 unit Documented by: Insulin Glargine (Insulin Glargine,Hum.Rec.Anlog 100 Unit/Ml 10 Ml Vial) 16 unit SUBCUT DAILY [facility] Last Admin: 07/20/21 09:17 Dose: 16 unit Documented by: Insulin Human Lispro (Insulin Lispro 100 Unit/Ml 3 Ml Vial) 0 unit SUBCUT BIDAC [facility]; Protocol Last Admin: 07/20/21 09:17 Dose: 6 unit Documented by: Melatonin (Melatonin 3 Mg Tablet) 6 mg PO BEDTIME PRN PRN Reason: Insomnia Metoprolol Tartrate (Metoprolol Tartrate 25 Mg Tablet) 25 mg PO BID [facility]; Protocol Last Admin: 07/20/21 09:15 Dose: 25 mg Documented by: Nystatin (Nystatin Powder 15 Gm Bottle) 1 appl TOPICAL BID [facility]; Protocol Last Admin: 07/20/21 09:16 Dose: 1 appl Documented by: Senna (Sennosides 8.6 Mg Tablet) 17.2 mg PO BEDTIME PRN PRN Reason: Constipation Sodium Chloride (0.9 % Sodium Chloride Flush 3 Ml Syringe) 3 ml IVFLUSH QSHIFT [facility] Last Admin: 07/20/21 15:16 Dose: 3 ml Documented by: Home Medications Medication Instructions Recorded Confirmed Last Taken Type albuterol sulfate 90 mcg/actuation 2 puff INHALATION Q4-6H PRN 01/23/21 07/27/21 Unknown History aerosol inhaler (Proventil HFA) apixaban 5 mg tablet (Eliquis) 5 mg PO BID 01/23/21 07/27/21 Unknown History aspirin 81 mg tablet,delayed 1 tab PO DAILY 01/23/21 07/27/21 Unknown History release fluticasone propionate 50 1 inh INHALATION BID 01/23/21 07/27/21 Unknown History mcg/actuation blister powder for inhalation (Flovent Diskus) gabapentin 300 mg capsule 300 mg PO TID 01/23/21 07/27/21 Unknown History insulin glargine 100 unit/mL (3 16 unit SUBCUT DAILY 01/23/21 07/27/21 Unknown History mL) subcutaneous pen (Lantus Solostar U-100 Insulin) insulin lispro 100 unit/mL See Protocol SUBCUT BIDAC 01/23/21 07/27/21 Unknown History subcutaneous solution (Humalog U-100 Insulin) ipratropium 0.5 mg-albuterol 3 mg 1 vial INHALATION Q4-6H PRN 01/23/21 07/27/21 Unknown History (2.5 mg base)/3 mL nebulization soln lisinopril 5 mg tablet 5 mg PO DAILY 01/23/21 07/27/21 Unknown History simvastatin 40 mg tablet 40 mg PO BEDTIME 01/23/21 07/27/21 Unknown History furosemide 20 mg tablet 20 mg PO DAILY 05/04/21 07/27/21 Unknown History Physical Exam Vital Signs: Vital Signs: Last Vital Signs Temp 98.0 F 07/20/21 15:14 Pulse 72 07/20/21 15:14 Resp 17 07/20/21 15:14 BP 155/67 H 07/20/21 15:14 Pulse Ox 95 07/20/21 15:14 BMI result Body Mass Index 61.8 Const: General: cooperative Eyes: General: appearance normal, both eyes and all related structures Resp: Effort & Inspection: normal respiratory effort Cardio: Rate: regular rate Rhythm: regular rhythm GI: Palpation (GI): Soft to palpation and nontender Extrem: General: Yes normal to inspection Results Labs CBC & Chem 7: 07/19/21 06:55 07/18/21 23:05 Microbiology Microbiology Results: Microbiology 07/17/21 Unknown Urine Catheterized - Molina Catheter Urine Culture - Final Assessment and Plan (1) Bacteriuria: Status: Acute 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
--- NOTE | 2021-07-20 15:57 | MHC.CM.PN ---
PATIENT IS DC TO HOME WITH RESUMPTION OF HER HOME HEALTH SERVICES AND CARE TENDER [facility] SERVICES RN AND UNIT AWARE OF PLAN. [facility] REQUEST FOR [id number]
[2021-07-20 16:03] LABS: Glucose, Whole Blood 312 mg/dL (60-115)
[2021-07-20 16:55] VITALS: O2SAT 95
== END 2021-07-20 18:20 | disposition home health service (06) | DRG 392 ==
LOC: HO.ED 23:19 → HO.EDOVER 23:30 → HO.S3 07-20 13:37
PROVIDERS: Admitting Provider Hospitalist; Emergency Provider Emergency Medicine; PCP Family Medicine; Visit Provider Internal Medicine
DX: K52.9 Noninfective gastroenteritis and colitis, unspecified (principal); Z68.44 Body mass index [BMI] 60.0-69.9, adult; Z20.822 Contact with and (suspected) exposure to COVID-19; E11.65 Type 2 diabetes mellitus with hyperglycemia; I11.0 Hypertensive heart disease with heart failure; I48.91 Unspecified atrial fibrillation; I35.0 Nonrheumatic aortic (valve) stenosis; I50.9 Heart failure, unspecified; R00.1 Bradycardia, unspecified; Z74.01 Bed confinement status; E66.01 Morbid (severe) obesity due to excess calories; Z90.01 Acquired absence of eye; Z79.4 Long term (current) use of insulin; Z79.82 Long term (current) use of aspirin; Z79.01 Long term (current) use of anticoagulants; Z79.899 Other long term (current) drug therapy
CPT/HCPCS: 0241U; 36415; 70450; 71045; 73030; 74176; 80048; 80076; 81001; 82272; 82947; 83690; 83880; 84484; 85025; 85027; 87086; 87493; 93005; 93306; 96360; 96361; 99285; J0696; J2185; Q9957

== ENCOUNTER → 2021-07-27 14:24 | Outpatient (BNVA) | payer MEDICARE, MEDICAID, SELFPAY | PROVIDERS: PCP Physician Assistant Medical; Visit Provider Internal Medicine | DX: I50.32 Chronic diastolic (congestive) heart failure (principal); I35.0 Nonrheumatic aortic (valve) stenosis; I25.10 Atherosclerotic heart disease of native coronary artery without angina pectoris; I48.0 Paroxysmal atrial fibrillation; Z79.01 Long term (current) use of anticoagulants; Z79.899 Other long term (current) drug therapy | CPT/HCPCS: 99212 ==

== ENCOUNTER 2021-10-24 18:28 | Inpatient (IN) | payer MEDICARE, MEDICAID, SELFPAY ==
--- NOTE | ~2021-10-24 | XR_ITS ---
EXAMINATION: XR FOOT, LEFT CLINICAL INFORMATION: Wound COMPARISON: 06/05/2021 TECHNIQUE: AP, lateral, and oblique views of the left foot. FINDINGS: Marked osteopenia. Diffuse vascular calcifications. No acute fracture or dislocation. No cortical erosion or periostitis to suggest osteomyelitis. XR/XR foot LT 2V IMPRESSION: Marked osteopenia. No acute osseous abnormality is evident.
--- NOTE | ~2021-10-24 | US_ITS ---
EXAMINATION: NONINVASIVE ASSESSMENT OF THE ARTERIES OF BOTH LOWER EXTREMITIES INCLUDING LEFT LOWER EXTREMITY DUPLEX. CLINICAL INFORMATION: Discoloration COMPARISON: None TECHNIQUE: Doppler techniques with wave form analysis and measurement of velocities in the left common femoral, profunda femoral, superficial femoral, popliteal, tibial arteries. The study was performed only at rest. FINDINGS: Common femoral artery: 140 cm/s, Multiphasic Profunda femoris artery: 72 cm/s, Multiphasic Superficial femoral artery (proximal): 132 cm/s, monophasic Superficial femoral artery (mid): 114 cm/s, Multiphasic Superficial femoral artery (distal): 86 cm/s, monophasic Proximal Popliteal artery: 109 cm/s, monophasic Mid posterior tibial artery: 92 cm/s, monophasic US/US arterial duplex LE LT IMPRESSION: Scattered areas of mild stenosis throughout the course of the left lower extremity, particularly in the common femoral and proximal superficial femoral arteries.
--- NOTE | ~2021-10-24 | US_ITS ---
EXAMINATION: UNILATERAL TRIPLEX SCANNING OF THE LEFT LOWER EXTREMITY CLINICAL INFORMATION: Left lower extremity swelling. COMPARISON: None. TECHNIQUE: Color-flow triplex imaging with spectral analysis and compression Doppler were performed on the left lower extremity. FINDINGS: Respiratory variation, normal compression and augmented flow are noted throughout the lower extremity. The visualized common femoral vein, superficial femoral vein, profunda femoral vein, popliteal vein and mid calf peroneal and posterior tibial venous segments show no evidence of deep venous thrombosis. There is no Tran's cyst. US/US venous duplex LE LT IMPRESSION: Normal triplex scan without evidence of deep venous thrombosis involving the left lower extremity.
--- NOTE | ~2021-10-24 | XR_ITS ---
EXAMINATION: XR CHEST CLINICAL INFORMATION: Shortness of breath COMPARISON: 07/17/2011 TECHNIQUE: Frontal view of the chest was obtained. FINDINGS: There are mildly increased interstitial markings bilaterally cardiomediastinal silhouette is normal. XR/XR chest 1V IMPRESSION: Mild increased interstitial markings bilaterally. No active cardiopulmonary disease.
[2021-10-24 18:50] VITALS: BP 149/83; PULSE 84; RESP 16; TEMP 37; O2SAT 95
[2021-10-24 18:52] VITALS: BP 146/68; PULSE 94; O2SAT 96; BMI 42.8
--- NOTE | 2021-10-24 19:02 | ED.WOUNDLAC ---
HPI - Wound/Laceration General Chief Complaint: Wound/Laceration Stated Complaint: lacerations to the legs - diabetic Source: patient and EMS Mode of arrival: EMS Limitations: no limitations History of Present Illness HPI narrative: 71-year-old female presents via EMS for left lower leg wound, swelling, erythema, fevers, chills, and difficulty walking. Injury occurred while she was at the day program on Monday. Onset (ago): day(s) (3) Extremity Location: left: lower leg Place: home Patient tetanus UTD: Yes Context: accidental Associated symptoms: pain and fever Treatments prior to arrival: bandage Related Data Home Medications Medication Instructions Recorded Confirmed albuterol sulfate 90 mcg/actuation 2 puff INHALATION Q4-6H PRN 01/23/21 10/24/21 aerosol inhaler (Proventil HFA) apixaban 5 mg tablet (Eliquis) 5 mg PO BID 01/23/21 10/24/21 gabapentin 300 mg capsule 300 mg PO BID 01/23/21 10/24/21 insulin lispro 100 unit/mL See Protocol SUBCUT TIDAC 01/23/21 10/24/21 subcutaneous solution (Humalog U-100 Insulin) lisinopril 5 mg tablet 5 mg PO DAILY 01/23/21 10/24/21 simvastatin 40 mg tablet 40 mg PO BEDTIME 01/23/21 10/24/21 furosemide 20 mg tablet 20 mg PO DAILY 05/04/21 10/24/21 Lactobacillus rhamnosus GG 10 1 cap PO DAILY 10/24/21 10/24/21 billion cell capsule (Culturelle) aspirin 81 mg tablet,delayed 81 mg PO DAILY 10/24/21 10/24/21 release fluticasone propionate 100 1 puff PO BID 10/24/21 10/24/21 mcg/actuation blister powder for inhalation (Flovent Diskus) insulin glargine 100 unit/mL (3 64 unit SUBCUT DAILY 10/24/21 10/24/21 mL) subcutaneous pen (Lantus Solostar U-100 Insulin) metformin 850 mg tablet 1 tab PO DAILY 10/24/21 10/24/21 metoprolol tartrate 50 mg tablet 1 tab PO BID 10/24/21 10/24/21 Allergies Allergy/AdvReac Type Severity Reaction Status Date / Time silver sulfadiazine Allergy Unknown UNK Verified 07/27/21 14:29 [From [facility]] Review of Systems Review of Systems: Constitutional: Subjective Fever, No Chills ENT/Mouth: No Ear Pain, No Hoarseness, No sore throat Eyes: No Eye Pain, No Swelling, No Redness, No Foreign Body Cardiovascular: No Chest Pain, No SOB Respiratory: No Cough, No Dyspnea Gastrointestinal: No Nausea, No Vomiting, No Diarrhea, No abdominal Pain Genitourinary: No Dysuria, No Hematuria Musculoskeletal: positive left lower leg pain, No Myalgias, No Joint Swelling Skin: No Skin lacerations, No rash, positive erythema Neuro: No Weakness, No Numbness, No Paresthesias, No Loss of Consciousness, No Dizziness, No Headache Psych: No Anxiety/Panic, No Depression Heme/Lymph: no easy bruising, no Lymphadenopathy Endocrine: No Polyuria, No Polydipsia Yes all other systems are reviewed and are negative [facility] Past Medical History Attestation statement: The following information was validated with the patient. Source: old records reviewed Medical History Aortic stenosis Bacteriuria Chronic indwelling Molina catheter Chronic UTI Chronic UTI Congestive heart failure COPD (chronic obstructive pulmonary disease) Diabetes Diarrhea Glaucoma H/O: CVA (cerebrovascular accident) Hypertension Non-rheumatic aortic stenosis Obesity Osteoarthritis Paroxysmal atrial fibrillation Severe sepsis Surgical History H/O adenoidectomy H/O enucleation of left eyeball History of tonsillectomy Family History Family History Father No problems noted. Mother No problems noted. Social History Social History Household Members: None Housing: Apartment Do you presently have visiting nurse or other home services: Yes Unable to assess alcohol history related to: Unknown Alcohol intake: never Patient Tobacco Use Status: Never used Tobacco Second Hand Smoke Exposure: No Use of substances other than those prescribed or required for medical reasons: No Advance Directives: Yes Advance Directives on File: Yes Advance Directives Date on File: 07/09/20 service: No Current occupational status: disabled Physical Exam Vital Signs: Vital Signs: Last Vital Signs Temp 97.8 F 10/24/21 22:25 Pulse 74 10/24/21 22:25 Resp 16 10/24/21 22:25 BP 135/57 L 10/24/21 22:25 Pulse Ox 92 10/24/21 22:25 BMI result Body Mass Index 42.8 Appearance: Alert. Oriented X3. No acute distress. Eyes: Pupils equal, round and reactive to light. ENT: Pharynx normal. Neck: Normal inspection. Neck supple. CVS: Normal heart rate and rhythm. Pulses normal. Respiratory: No respiratory distress. Breath sounds normal. Abdomen: Soft and nontender. Skin: Skin warm and dry. Normal skin color. Normal skin turgor. Extremities: No lower extremity edema. Neuro: No motor deficit. No sensory deficit. Course Course Course Narrative: 71-year-old female presents with left lower extremity wound, erythema, and swelling. Patient does have a chronic Molina. Will order labs to rule out sepsis, duplex and arteriogram to left lower extremity and x-rayed rule out osteo. Will start with IV vanco and Zosyn. Review of records indicates patient has history of Citrobacter freundii dating back to 06/15/[address] Benz. 21:40 no indication of osteo on foot x-ray. Venous duplex no DVT. Chest x-ray shows mild increased interstitial markings bilaterally. Lactic 1.5 patient is afebrile. No other indication of organ dysfunction. Does have SNEHA of BUN at 21 however does have diabetes and CHF. This value is an improvement from her prior values. 22:46 discussion with hospitalist. Plan care is to admit for UTI and cellulitis to left lower extremity. MDM - Wound/Laceration MDM Narrative Medical decision making narrative: Cellulitis, osteo Differential Diagnosis Differential diagnosis: Likely abscess Medical Records Attestation: I reviewed the patient's medical records. Lab Data Attestation: I reviewed the patient's lab results. Result diagrams: 10/24/21 19:32 10/24/21 19:32 Labs: Lab Results 10/24/21 10/24/21 10/24/21 Range/Units 19:32 19:32 19:32 WBC 9.8 (4.8-10.8) X10*3/uL RBC 5.27 (4.20-5.50) X10*6/uL Hgb 14.6 (12.0-16.0) g/dl Hct 45.5 (37.0-47.0) % MCV 86.3 (80.0-98.0) fL MCH 27.7 (27.0-33.0) pg MCHC 32.1 (31.0-35.0) g/dl RDW 15.5 (11.0-16.0) % Plt Count 210 D (160-400) X10*3/uL MPV 11.4 (9.4-12.3) fL Immature Gran % (Auto) 0.3 (0.0-0.4) % Neut % (Auto) 69.0 (45-73) % Lymph % (Auto) 18.6 L (20-40) % Dougherty % (Auto) 8.5 (2-11) % Eos % (Auto) 3.3 (0-4) % Baso % (Auto) 0.3 (0-2) % Lymph # (Auto) 1.8 (1.2-4.9) X10*3/uL Dougherty # (Auto) 0.8 (0.1-1.2) X10*3/uL Eos # (Auto) 0.3 (0.0-0.4) X10*3/uL Baso # (Auto) 0.0 (0.0-0.2) X10*3/uL Abs Immat Gran (auto) 0.03 (0.00-0.03) X10*3/uL Absolute Neuts (auto) 6.7 (2.0-8.3) x10*3/uL Absolute Nucleated RBC 0.000 (0.0-0.012) X10*3/uL Nucleated RBC % (auto) 0.0 (0.0-0.2) /100WBC PT 14.1 H (9.9-13.0) SEC INR 1.2 H (0.9-1.1) APTT 37.9 (24.1-38.0) SEC Sodium 136 (135-145) mmol/L Potassium 4.1 (3.3-5.1) mmol/L Chloride 91 L (96-108) mmol/L Carbon Dioxide 34 H (22-29) mmol/L Anion Gap 15 (12-20) BUN 21 H (9-16) mg/dL Creatinine 0.87 (0.5-1.4) mg/dL Estim Creat Clear Calc 79.5 Estimated GFR > 60 Random Glucose 266 H (60-115) mg/dL Lactic Acid (0.5-2.0) mmol/L Calcium 9.6 D (8.4-10.2) mg/dL Magnesium 1.6 (1.6-2.6) mg/dL Total Bilirubin 0.5 (0.0-1.0) mg/dL Direct Bilirubin 0.2 (0.0-0.5) mg/dL AST 13 D (5-31) U/L ALT 18 (0-31) U/L Alkaline Phosphatase 129 H D (39-117) U/L Troponin I High Sens (<3.5-17.0) ng/L B-Natriuretic Peptide (<100) pg/mL Total Protein 7.1 (6.5-8.0) g/dL Albumin 3.7 (3.5-5.0) g/dL Lipase 10 (8-78) U/L Urine Color Urine Appearance Urine pH (5.0-8.0) Ur Specific [place] (1.005-1.025) Urine Protein (NEG-TRACE) MG/DL Urine Glucose (UA) (NEG) MG/DL Urine Ketones (NEG) MG/DL Urine Blood (NEG) Urine Nitrite (NEG) Ur Leukocyte Esterase (NEG) Urine RBC (0) /HPF Urine WBC (0-4) /HPF Ur Squamous Epith Cells /LPF Urine Bacteria /LPF Influenza Type A (PCR) (Negative) Influenza Type B (PCR) (Negative) RSV RNA Qual (PCR) (Negative) SARS-CoV-2 RNA (RT-PCR) (Negative) 10/24/21 10/24/21 10/24/21 Range/Units 19:32 19:32 19:36 WBC (4.8-10.8) X10*3/uL RBC (4.20-5.50) X10*6/uL Hgb (12.0-16.0) g/dl Hct (37.0-47.0) % MCV (80.0-98.0) fL MCH (27.0-33.0) pg MCHC (31.0-35.0) g/dl RDW (11.0-16.0) % Plt Count (160-400) X10*3/uL MPV (9.4-12.3) fL Immature Gran % (Auto) (0.0-0.4) % Neut % (Auto) (45-73) % Lymph % (Auto) (20-40) % Dougherty % (Auto) (2-11) % Eos % (Auto) (0-4) % Baso % (Auto) (0-2) % Lymph # (Auto) (1.2-4.9) X10*3/uL Doug[place] # (Auto) (0.1-1.2) X10*3/uL Eos # (Auto) (0.0-0.4) X10*3/uL Baso # (Auto) (0.0-0.2) X10*3/uL Abs Immat Gran (auto) (0.00-0.03) X10*3/uL Absolute Neuts (auto) (2.0-8.3) x10*3/uL Absolute Nucleated RBC (0.0-0.012) X10*3/uL Nucleated RBC % (auto) (0.0-0.2) /100WBC PT (9.9-13.0) SEC INR (0.9-1.1) APTT (24.1-38.0) SEC Sodium (135-145) mmol/L Potassium (3.3-5.1) mmol/L Chloride (96-108) mmol/L Carbon Dioxide (22-29) mmol/L Anion Gap (12-20) BUN (9-16) mg/dL Creatinine (0.5-1.4) mg/dL Estim Creat Clear Calc Estimated GFR Random Glucose (60-115) mg/dL Lactic Acid 1.5 (0.5-2.0) mmol/L Calcium (8.4-10.2) mg/dL Magnesium (1.6-2.6) mg/dL Total Bilirubin (0.0-1.0) mg/dL Direct Bilirubin (0.0-0.5) mg/dL AST (5-31) U/L ALT (0-31) U/L Alkaline Phosphatase (39-117) U/L Troponin I High Sens 16.3 (<3.5-17.0) ng/L B-Natriuretic Peptide 78 (<100) pg/mL Total Protein (6.5-8.0) g/dL Albumin (3.5-5.0) g/dL Lipase (8-78) U/L Urine Color YELLOW Urine Appearance TURBID Urine pH 6.0 (5.0-8.0) Ur Specific [place] 1.020 (1.005-1.025) Urine Protein 1+ H (NEG-TRACE) MG/DL Urine Glucose (UA) 250 H (NEG) MG/DL Urine Ketones NEG (NEG) MG/DL Urine Blood 3+ H (NEG) Urine Nitrite POS H (NEG) Ur Leukocyte Esterase 3+ H (NEG) Urine RBC 50-75 H (0) /HPF Urine WBC 15-29 H (0-4) /HPF Ur Squamous Epith Cells 1+ /LPF Urine Bacteria 3+ /LPF Influenza Type A (PCR) (Negative) Influenza Type B (PCR) (Negative) RSV RNA Qual (PCR) (Negative) SARS-CoV-2 RNA (RT-PCR) (Negative) 10/24/21 Range/Units 19:50 WBC (4.8-10.8) X10*3/uL RBC (4.20-5.50) X10*6/uL Hgb (12.0-16.0) g/dl Hct (37.0-47.0) % MCV (80.0-98.0) fL MCH (27.0-33.0) pg MCHC (31.0-35.0) g/dl RDW (11.0-16.0) % Plt Count (160-400) X10*3/uL MPV (9.4-12.3) fL Immature Gran % (Auto) (0.0-0.4) % Neut % (Auto) (45-73) % Lymph % (Auto) (20-40) % Dougherty % (Auto) (2-11) % Eos % (Auto) (0-4) % Baso % (Auto) (0-2) % Lymph # (Auto) (1.2-4.9) X10*3/uL [place] # (Auto) (0.1-1.2) X10*3/uL Eos # (Auto) (0.0-0.4) X10*3/uL Baso # (Auto) (0.0-0.2) X10*3/uL Abs Immat Gran (auto) (0.00-0.03) X10*3/uL Absolute Neuts (auto) (2.0-8.3) x10*3/uL Absolute Nucleated RBC (0.0-0.012) X10*3/uL Nucleated RBC % (auto) (0.0-0.2) /100WBC PT (9.9-13.0) SEC INR (0.9-1.1) APTT (24.1-38.0) SEC Sodium (135-145) mmol/L Potassium (3.3-5.1) mmol/L Chloride (96-108) mmol/L Carbon Dioxide (22-29) mmol/L Anion Gap (12-20) BUN (9-16) mg/dL Creatinine (0.5-1.4) mg/dL Estim Creat Clear Calc Estimated GFR Random Glucose (60-115) mg/dL Lactic Acid (0.5-2.0) mmol/L Calcium (8.4-10.2) mg/dL Magnesium (1.6-2.6) mg/dL Total Bilirubin (0.0-1.0) mg/dL Direct Bilirubin (0.0-0.5) mg/dL AST (5-31) U/L ALT (0-31) U/L Alkaline Phosphatase (39-117) U/L Troponin I High Sens (<3.5-17.0) ng/L B-Natriuretic Peptide (<100) pg/mL Total Protein (6.5-8.0) g/dL Albumin (3.5-5.0) g/dL Lipase (8-78) U/L Urine Color Urine Appearance Urine pH (5.0-8.0) Ur Specific [place] (1.005-1.025) Urine Protein (NEG-TRACE) MG/DL Urine Glucose (UA) (NEG) MG/DL Urine Ketones (NEG) MG/DL Urine Blood (NEG) Urine Nitrite (NEG) Ur Leukocyte Esterase (NEG) Urine RBC (0) /HPF Urine WBC (0-4) /HPF Ur Squamous Epith Cells /LPF Urine Bacteria /LPF Influenza Type A (PCR) NEGATIVE (Negative) Influenza Type B (PCR) NEGATIVE (Negative) RSV RNA Qual (PCR) NEGATIVE (Negative) SARS-CoV-2 RNA (RT-PCR) NEGATIVE (Negative) Imaging Data Chest x-ray: Attestation: I personally reviewed and interpreted this imaging study as follows: Radiologist's impression: EXAMINATION: XR CHEST CLINICAL INFORMATION: Shortness of breath COMPARISON: 07/17/2011 TECHNIQUE: Frontal view of the chest was obtained. FINDINGS: There are mildly increased interstitial markings bilaterally cardiomediastinal silhouette is normal. XR/XR chest 1V IMPRESSION: Mild increased interstitial markings bilaterally. No active cardiopulmonary disease. ? Venous and arterial duplex: Attestation: I personally reviewed and interpreted this imaging study as follows: Radiologist's impression: EXAMINATION: UNILATERAL TRIPLEX SCANNING OF THE LEFT LOWER EXTREMITY CLINICAL INFORMATION: Left lower extremity swelling. COMPARISON: None. TECHNIQUE: Color-flow triplex imaging with spectral analysis and compression Doppler were performed on the left lower extremity. FINDINGS: Respiratory variation, normal compression and augmented flow are noted throughout the lower extremity. The visualized common femoral vein, superficial femoral vein, profunda femoral vein, popliteal vein and mid calf peroneal and posterior tibial venous segments show no evidence of deep venous thrombosis. There is no Tran's cyst. US/US venous duplex LE LT IMPRESSION: Normal triplex scan without evidence of deep venous thrombosis involving the left lower extremity. CLINICAL INFORMATION: Discoloration COMPARISON: None TECHNIQUE: Doppler techniques with wave form analysis and measurement of velocities in the left common femoral, profunda femoral, superficial femoral, popliteal, tibial arteries. The study was performed only at rest. FINDINGS: Common femoral artery: 140 cm/s, Multiphasic Profunda femoris artery: 72 cm/s, Multiphasic Superficial femoral artery (proximal): 132 cm/s, monophasic Superficial femoral artery (mid):? 114 cm/s, Multiphasic Superficial femoral artery (distal):? 86 cm/s, monophasic Proximal Popliteal artery: 109 cm/s, monophasic Mid posterior tibial artery:? 92 cm/s, monophasic US/US arterial duplex LE LT IMPRESSION: Scattered areas of mild stenosis throughout the course of the left lower extremity, particularly in the common femoral and proximal superficial femoral arteries. Foot x-ray: Attestation: I personally reviewed and interpreted this imaging study as follows: Radiologist's impression: EXAMINATION: XR FOOT, LEFT CLINICAL INFORMATION: Wound? COMPARISON: 06/05/2021? TECHNIQUE: AP, lateral, and oblique views of the left foot. FINDINGS: Marked osteopenia. Diffuse vascular calcifications. No acute fracture or dislocation. No cortical erosion or periostitis to suggest osteomyelitis.? XR/XR foot LT 2V IMPRESSION: Marked osteopenia. No acute osseous abnormality is evident. ECG Data Attestation: I personally reviewed and interpreted this ECG as follows: ECG interpretation date: 10/24/21 ECG interpretation time: 19:16 Prior ECG tracings: available for review Interpretation: Vent. rate 91 BPM NC interval 198 ms QRS duration 96 ms QT/QTc 370/455 ms P-R-T axes 41 -6 91 Sinus rhythm with occasional Premature ventricular complexes Septal infarct (cited on or before 24-OCT-2021) ST & T wave abnormality, consider lateral ischemia Abnormal ECG When compared with ECG of 19-JUL-2021 11:25, Premature ventricular complexes are now Present Vent. rate has increased BY 60 BPM QT has lengthened Critical Care Time Critical Care Time Critical Care Time: Yes Total Critical Care Time: 45 Attestation: I have personally provided critical care time exclusive of time spent on separately billable procedures. Time includes review of laboratory data, radiology results, discussion with consultants, and monitoring for potential decompensation. Interventions were performed as documented. Discharge Plan Discharge Clinical Impression: UTI (urinary tract infection), Cellulitis Patient Disposition: Admitted As Inpatient
--- NOTE | 2021-10-24 19:04 | ECG_ITS ---
Test Reason : SEPSIS Blood Pressure : / mmHG Vent. Rate : 091 BPM Atrial Rate : 091 BPM P-R Int : 198 ms QRS Dur : 096 ms QT Int : 370 ms P-R-T Axes : 041 -06 091 degrees QTc Int : 455 ms Sinus rhythm with occasional Premature ventricular complexes Septal infarct (cited on or before 24-OCT-2021) ST & T wave abnormality, consider lateral ischemia Abnormal ECG When compared with ECG of 19-JUL-2021 11:25, Premature ventricular complexes are now Present Vent. rate has increased BY 60 BPM QT has lengthened Referred By: Xenia Cervantes Electronically Signed By:Tomas Doll
[2021-10-24 19:42] LABS: MANUAL DIFF FLAG NO
[2021-10-24 19:44] LABS: Appearance Urine TURBID; Color Urine YELLOW; Glucose Urine UA 250 MG/DL (NEG); Leukocyte Esterase Urine 3+ (NEG); Nitrite Urine POS (NEG); UACC Culture Trigger YES; Urine Blood 3+ (NEG); Urine Ketones NEG (NEG); Urine Protein 1+ MG/DL (NEG-TRACE)
[2021-10-24 19:45] LABS: Basophils Percent Auto 0.3 % (0-2); Eosinophils Absolute Auto 0.3 X10*3/uL (0.0-0.4); Eosinophils Percent Auto 3.3 % (0-4); Hematocrit 45.5 % (37.0-47.0); Hemoglobin 14.6 g/dl (12.0-16.0); Imm Gran Abs Auto 0.03 X10*3/uL (0.00-0.03); Imm Gran Pct Auto 0.3 % (0.0-0.4); Lymphocytes Absolute Auto 1.8 X10*3/uL (1.2-4.9); Lymphocytes Percent Auto 18.6 % (20-40); Mean Corpuscular HGB Conc 32.1 g/dl (31.0-35.0); Mean Corpuscular Hemoglobin 27.7 pg (27.0-33.0); Mean Corpuscular Volume 86.3 fL (80.0-98.0); Mean Platelet Volume 11.4 fL (9.4-12.3); Monocytes Absolute Auto 0.8 X10*3/uL (0.1-1.2); Monocytes Percent Auto 8.5 % (2-11); Neutrophils Absolute Auto 6.7 x10*3/uL (2.0-8.3); Platelet Count 210 X10*3/uL (160-400); Red Blood Count 5.27 X10*6/uL (4.20-5.50); Red Cell Distribution Width 15.5 % (11.0-16.0); White Blood Count 9.8 X10*3/uL (4.8-10.8)
[2021-10-24 19:51] LABS: INTERNATIONAL NORM RATIO 1.2 (0.9-1.1); Prothrombin Time 14.1 SEC (9.9-13.0)
[2021-10-24 19:53] LABS: Partial Thromboplastin Time 37.9 SEC (24.1-38.0)
[2021-10-24 19:53] LABS: Bacteria Urine 3+ /LPF; RBC Urine 50-75 /HPF (0); Squamous Epithelial Cell Urine 1+ /LPF
[2021-10-24 19:55] LABS: Lactic Acid 1.5 mmol/L (0.5-2.0)
[2021-10-24 20:00] LABS: Alanine Aminotransferase 18 U/L (0-31); Albumin Level 3.7 g/dL (3.5-5.0); Alkaline Phosphatase 129 U/L (39-117); Anion Gap 15 (12-20); Aspartate Amino Transferase 13 U/L (5-31); Bilirubin Direct 0.2 mg/dL (0.0-0.5); Bilirubin Total 0.5 mg/dL (0.0-1.0); Blood Urea Nitrogen 21 mg/dL (9-16); Calcium 9.6 mg/dL (8.4-10.2); Carbon Dioxide 34 mmol/L (22-29); Chloride 91 mmol/L (96-108); Creatinine Clr Calc Pharmacy 79.5; Estimated Glomerular Filt Rate > 60; Glucose Random 266 mg/dL (60-115); Lipase 10 U/L (8-78); Magnesium 1.6 mg/dL (1.6-2.6); Potassium 4.1 mmol/L (3.3-5.1); Sodium 136 mmol/L (135-145); Total Protein 7.1 g/dL (6.5-8.0)
[2021-10-24] MEDS: Piperacillin Sodium/Tazobactam 3.375 GM in 0.9 % Sodium Chloride 50 ML IV (20:00)
[2021-10-24 20:06] LABS: B Type Natriuretic Peptide 78 pg/mL (<100); Troponin-I High Sensitivity 16.3 ng/L (<3.5-17.0)
[2021-10-24] MEDS: vancomycin HCL 1,500 MG in 0.9 % Sodium Chloride 500 ML 333.33 MG IV (20:30)
[2021-10-24 20:31] LABS: Influenza A PCR NEGATIVE (Negative); Influenza B PCR NEGATIVE (Negative); Resp Syncy Virus RNA Qual PCR NEGATIVE (Negative); SARS COV2 PCR INHOUSE NEGATIVE (Negative)
--- NOTE | 2021-10-24 22:03 | PHA.MEDREC ---
Pharmacy Consult ? Medication Reconciliation Pharmacy has completed the medication reconciliation.Spoke with patient in ED and also called patients daughter, Stefany, who helps patient with medications. Patient reports taking Gabapentin BID ( Instead of TID), Metformin daily ( instead of BID) and 64 units daily of lantus. pt took all medications this morning but missed evening doses.
[2021-10-24 22:25] VITALS: BP 135/57; PULSE 74; RESP 16; TEMP 36.6; O2SAT 92
--- NOTE | 2021-10-24 22:47 | PM.IMHP ---
History of Present Illness Date of Service: 10/24/21 Chief Complaint: Left leg pain redness and swelling 71-year-old female with a past medical history of hypertension, hyperlipidemia, diabetes, chronic indwelling Rai, recurrent UTI, history of CVA, history of nonrheumatic aortic stenosis, paroxysmal AFib, congestive heart failure, glaucoma, osteoarthritis, obesity, history of cellulitis; presented to the hospital today with a chief complaint of left leg pain redness and swelling. Patient reports that over the past few days she has been having increased pain redness and swelling of her left wrist; patient mentioned she initially scratched on the lateral side of the leg; followed by gradually it has increased redness and swelling. Pain limiting her ambulation. Denies any falls or trauma. Denies any chest pain palpitations lightheadedness or dizziness. Denies any fever chills cough. Denies any GI symptoms. Review of all other systems is negative except mentioned above ER course: Per ER team patient noted to have increased tenderness, redness, swelling of the left lower extremity with mild ulcerations on the later part of the legs; arteriogram showed mild intermittent stenosis throughout the course of the left lower extremity particularly in the common femoral and proximal superficial femoral artery; venous duplex was negative for any blood or; x-ray showed no evidence of osteomyelitis; patient was given IV vancomycin and Zosyn. Admitted to the hospital for further management. [facility] Medical History Aortic stenosis Bacteriuria Chronic indwelling Rai catheter Chronic UTI Chronic UTI Congestive heart failure COPD (chronic obstructive pulmonary disease) Diabetes Diarrhea Glaucoma H/O: CVA (cerebrovascular accident) Hypertension Non-rheumatic aortic stenosis Obesity Osteoarthritis Paroxysmal atrial fibrillation Severe sepsis Family History Father No problems noted. Mother No problems noted. Surgical History H/O adenoidectomy H/O enucleation of left eyeball History of tonsillectomy Social History Household Members: None Housing: Apartment Do you presently have visiting nurse or other home services: Yes Unable to assess alcohol history related to: Unknown Alcohol intake: never Patient Tobacco Use Status: Never used Tobacco Second Hand Smoke Exposure: No Use of substances other than those prescribed or required for medical reasons: No Advance Directives: Yes Advance Directives on File: Yes Advance Directives Date on File: 07/09/20 service: No Current occupational status: disabled Meds Allergies Allergy/AdvReac Type Severity Reaction Status Date / Time silver sulfadiazine Allergy Unknown UNK Verified 07/27/21 14:29 [From SILVADENE] Active Medications: Current Medications Acetaminophen (Acetaminophen 325 Mg Tablet) 650 mg PO Q6H PRN PRN Reason: Pain, Mild (Pain Scale 1-3) Albuterol Sulfate (Albuterol Sulfate 90 Mcg 8 Gm Inhaler) 2 puff INHALE Q4-6H PRN PRN Reason: Wheezing Apixaban (Apixaban 5 Mg Tablet) 5 mg PO BID [facility] Aspirin (Aspirin Enteric Coated 81 Mg Tablet.Dr) 81 mg PO DAILY [facility] Fluticasone Propionate (Fluticasone Propionate 100 Mcg Blst.W.Dev) 1 puff INHALE BID [facility] Furosemide (Furosemide 20 Mg Tablet) 20 mg PO DAILY [facility]; Protocol Gabapentin (Gabapentin 300 Mg Capsule) 300 mg PO BID [facility] Hydromorphone HCl (Hydromorphone Hcl 1 Mg/Ml Syringe) 0.5 mg IVPUSH Q4H PRN; Protocol PRN Reason: Pain, Severe (Pain Scale 7-10) Insulin Glargine (Insulin Glargine,Hum.Rec.Anlog 100 Unit/Ml 10 Ml Vial) 30 unit SUBCUT DAILY [facility] Insulin Human Lispro (Insulin Lispro 100 Unit/Ml 3 Ml Vial) unit SUBCUT TIDAC [facility]; Protocol Melatonin (Melatonin 3 Mg Tablet) 6 mg PO BEDTIME PRN PRN Reason: Insomnia Non-Formulary Medication (Lactobacillus Rhamnosus Gg [Culturelle]) 1 cap PO DAILY [facility] Senna (Sennosides 8.6 Mg Tablet) 17.2 mg PO BEDTIME PRN PRN Reason: Constipation Sodium Chloride (0.9 % Sodium Chloride Flush 3 Ml Syringe) 3 ml IVFLUSH QSHIFT [facility] Home Medications Medication Instructions Recorded Confirmed Last Taken Type albuterol sulfate 90 mcg/actuation 2 puff INHALATION Q4-6H PRN 01/23/21 10/24/21 Unknown History aerosol inhaler (Proventil HFA) apixaban 5 mg tablet (Eliquis) 5 mg PO BID 01/23/21 10/24/21 10/24/21 History gabapentin 300 mg capsule 300 mg PO BID 01/23/21 10/24/21 10/24/21 History insulin lispro 100 unit/mL See Protocol SUBCUT TIDAC 01/23/21 10/24/21 10/24/21 History subcutaneous solution (Humalog U-100 Insulin) lisinopril 5 mg tablet 5 mg PO DAILY 01/23/21 10/24/21 10/24/21 History simvastatin 40 mg tablet 40 mg PO BEDTIME 01/23/21 10/24/21 10/23/21 History furosemide 20 mg tablet 20 mg PO DAILY 05/04/21 10/24/21 10/24/21 History Lactobacillus rhamnosus GG 10 1 cap PO DAILY 10/24/21 10/24/21 Unknown History billion cell capsule (Culturelle) aspirin 81 mg tablet,delayed 81 mg PO DAILY 10/24/21 10/24/21 10/24/21 History release fluticasone propionate 100 1 puff PO BID 10/24/21 10/24/21 10/24/21 History mcg/actuation blister powder for inhalation (Flovent Diskus) insulin glargine 100 unit/mL (3 64 unit SUBCUT DAILY 10/24/21 10/24/21 10/24/21 History mL) subcutaneous pen (Lantus Solostar U-100 Insulin) metformin 850 mg tablet 1 tab PO DAILY 10/24/21 10/24/21 10/24/21 History metoprolol tartrate 50 mg tablet 1 tab PO BID 10/24/21 10/24/21 10/24/21 History Physical Exam Vital Signs and Narrative: Vital Signs: Last Vital Signs Temp 97.8 F 10/24/21 22:25 Pulse 74 10/24/21 22:25 Resp 16 10/24/21 22:25 BP 135/57 L 10/24/21 22:25 Pulse Ox 92 10/24/21 22:25 BMI result Body Mass Index 42.8 Gen: Appears be in no acute distress HEENT: NCAT, Moist mucosa. Pulmonary: Vesicular breath sounds, fair air entry CVS: Normal S1-S2 Abdomen: BS+, Soft, LLE warm, tender, erytematous- as shown in pictures below. Extremities: Warm well perfused Neuro: Alert and awake. Results Labs CBC and Chem 7: 10/24/21 19:32 10/24/21 19:32 Labs: Laboratory Results - last 24 hr 10/24/21 10/24/21 10/24/21 19:32 19:32 19:32 MCV 86.3 MCH 27.7 MCHC 32.1 RDW 15.5 Plt Count 210 D MPV 11.4 Immature Gran % (Auto) 0.3 Neut % (Auto) 69.0 Lymph % (Auto) 18.6 L [place] % (Auto) 8.5 Eos % (Auto) 3.3 Baso % (Auto) 0.3 Lymph # (Auto) 1.8 [place] # (Auto) 0.8 Eos # (Auto) 0.3 Baso # (Auto) 0.0 Abs Immat Gran (auto) 0.03 Absolute Neuts (auto) 6.7 Absolute Nucleated RBC 0.000 Nucleated RBC % (auto) 0.0 PT 14.1 H INR 1.2 H APTT 37.9 Anion Gap 15 Estim Creat Clear Calc 79.5 Estimated GFR > 60 Random Glucose 266 H Lactic Acid Calcium 9.6 D Magnesium 1.6 Total Bilirubin 0.5 Direct Bilirubin 0.2 AST 13 D ALT 18 Alkaline Phosphatase 129 H D Troponin I High Sens B-Natriuretic Peptide Total Protein 7.1 Albumin 3.7 Lipase 10 Urine Color Urine Appearance Urine pH Ur Specific [place] Urine Protein Urine Glucose (UA) Urine Ketones Urine Blood Urine Nitrite Ur Leukocyte Esterase Urine RBC Urine WBC Ur Squamous Epith Cells Urine Bacteria Influenza Type A (PCR) Influenza Type B (PCR) RSV RNA Qual (PCR) SARS-CoV-2 RNA (RT-PCR) 10/24/21 10/24/21 10/24/21 19:32 19:32 19:36 MCV MCH MCHC RDW Plt Count MPV Immature Gran % (Auto) Neut % (Auto) Lymph % (Auto) [place] % (Auto) Eos % (Auto) Baso % (Auto) Lymph # (Auto) [place] # (Auto) Eos # (Auto) Baso # (Auto) Abs Immat Gran (auto) Absolute Neuts (auto) Absolute Nucleated RBC Nucleated RBC % (auto) PT INR APTT Anion Gap Estim Creat Clear Calc Estimated GFR Random Glucose Lactic Acid 1.5 Calcium Magnesium Total Bilirubin Direct Bilirubin AST ALT Alkaline Phosphatase Troponin I High Sens 16.3 B-Natriuretic Peptide 78 Total Protein Albumin Lipase Urine Color YELLOW Urine Appearance TURBID Urine pH 6.0 Ur Specific [place] 1.020 Urine Protein 1+ H Urine Glucose (UA) 250 H Urine Ketones NEG Urine Blood 3+ H Urine Nitrite POS H Ur Leukocyte Esterase 3+ H Urine RBC 50-75 H Urine WBC 15-29 H Ur Squamous Epith Cells 1+ Urine Bacteria 3+ Influenza Type A (PCR) Influenza Type B (PCR) RSV RNA Qual (PCR) SARS-CoV-2 RNA (RT-PCR) 10/24/21 19:50 MCV MCH MCHC RDW Plt Count MPV Immature Gran % (Auto) Neut % (Auto) Lymph % (Auto) [place] % (Auto) Eos % (Auto) Baso % (Auto) Lymph # (Auto) [place] # (Auto) Eos # (Auto) Baso # (Auto) Abs Immat Gran (auto) Absolute Neuts (auto) Absolute Nucleated RBC Nucleated RBC % (auto) PT INR APTT Anion Gap Estim Creat Clear Calc Estimated GFR Random Glucose Lactic Acid Calcium Magnesium Total Bilirubin Direct Bilirubin AST ALT Alkaline Phosphatase Troponin I High Sens B-Natriuretic Peptide Total Protein Albumin Lipase Urine Color Urine Appearance Urine pH Ur Specific [place] Urine Protein Urine Glucose (UA) Urine Ketones Urine Blood Urine Nitrite Ur Leukocyte Esterase Urine RBC Urine WBC Ur Squamous Epith Cells Urine Bacteria Influenza Type A (PCR) NEGATIVE Influenza Type B (PCR) NEGATIVE RSV RNA Qual (PCR) NEGATIVE SARS-CoV-2 RNA (RT-PCR) NEGATIVE Imaging Radiologist's Impressions: Impressions Duplex Scan Lower Extremity Artery 10/24/21 08:33 IMPRESSION: Scattered areas of mild stenosis throughout the course of the left lower extremity, particularly in the common femoral and proximal superficial femoral arteries. Chest X-Ray 10/24/21 19:48 IMPRESSION: Mild increased interstitial markings bilaterally. No active cardiopulmonary disease. Foot X-Ray 10/24/21 20:11 IMPRESSION: Marked osteopenia. No acute osseous abnormality is evident. Venous Duplex 10/24/21 20:26 IMPRESSION: Normal triplex scan without evidence of deep venous thrombosis involving the left lower extremity. Assessment and Plan (1) Chronic heart failure with preserved ejection fraction (HFpEF): Status: Acute (2) Cellulitis: Qualifiers: Laterality: left Site of cellulitis: extremity Site of cellulitis of extremity: lower extremity Qualified Code(s): L03.116 - Cellulitis of left lower limb Status: Acute (3) Diabetes: Status: Acute (4) Paroxysmal atrial fibrillation: Status: Acute Plan 71-year-old female with a past medical history of hypertension, hyperlipidemia, diabetes, chronic indwelling Rai, recurrent UTI, history of CVA, history of nonrheumatic aortic stenosis, paroxysmal AFib, congestive heart failure, glaucoma, osteoarthritis, obesity, history of cellulitis; presented to the hospital today with a chief complaint of left leg pain redness and swelling. Left lower extremity cellulitis: Continue IV vancomycin and Zosyn Venous duplex negative for blood clots Id consult UTI: Patient has chronic indwelling Rai. ER team changing old rai catheter. Patient on antibiotics as mentioned above. Follow-up cultures. Peripheral vascular disease: Doppler ultrasound of the left lower extremity showed mild stenosis throughout the left lower extremity. Vascular surgery follow-up. Chest pain: Atypical; Troponin- 16.3->21.0; EKG nonischemia. CHF: pts CT showed interstetial edema; pt placed on 2lit Suppl oxygen. Given Lasix 40mg IV pushx1. History of diabetes: Will reduce the home Lantus to 30 units. Will give the patient insulin sliding scale. Monitor fingerstick glucose and adjust as needed History of paroxysmal AFib: Rate controlled. Continue home Eliquis, metoprolol. DVT prophylaxis: Patient on Eliquis Code status: Full code Quality Stroke Does the patient have a stroke diagnosis?: No VTE Prior VTE?: No VTE Risk Level:: Medical - moderate - high VTE Device Contraindication: Treatment Not Indicated VTE Drug Contraindication: N/A - Med Ordered
[2021-10-24 23:07] VITALS: RESP 15
[2021-10-24] MEDS: Morphine Sulfate 4 MG/ML CARTRIDGE IVPUSH (23:07)
[2021-10-24 23:26] LABS: Glucose, Whole Blood 207 mg/dL (60-115)
[2021-10-25] MEDS: Furosemide 40 MG/4 ML VIAL IVPUSH (02:28)
[2021-10-25 02:54] VITALS: BMI 42.9
[2021-10-25 03:34] VITALS: BP 141/67; PULSE 82; RESP 19; TEMP 36.1; O2SAT 100
[2021-10-25] MEDS: Piperacillin Sodium/Tazobactam 3.375 GM in 0.9 % Sodium Chloride 50 ML IV ×4 (03:40→19:43)
[2021-10-25 04:38] LABS: MANUAL DIFF FLAG NO
[2021-10-25 04:55] LABS: Anion Gap 12 (12-20); Blood Urea Nitrogen 18 mg/dL (9-16); Calcium 8.8 mg/dL (8.4-10.2); Carbon Dioxide 35 mmol/L (22-29); Chloride 95 mmol/L (96-108); Creatinine Clr Calc Pharmacy 98.9; Estimated Glomerular Filt Rate > 60; Glucose Random 156 mg/dL (60-115); Potassium 3.9 mmol/L (3.3-5.1); Sodium 138 mmol/L (135-145)
[2021-10-25 04:57] LABS: Basophils Percent Auto 0.3 % (0-2); Eosinophils Absolute Auto 0.4 X10*3/uL (0.0-0.4); Eosinophils Percent Auto 4.8 % (0-4); Hematocrit 40.7 % (37.0-47.0); Imm Gran Abs Auto 0.01 X10*3/uL (0.00-0.03); Imm Gran Pct Auto 0.1 % (0.0-0.4); Lymphocytes Absolute Auto 1.8 X10*3/uL (1.2-4.9); Lymphocytes Percent Auto 23.4 % (20-40); Mean Corpuscular HGB Conc 31.9 g/dl (31.0-35.0); Mean Corpuscular Hemoglobin 27.8 pg (27.0-33.0); Mean Corpuscular Volume 87.2 fL (80.0-98.0); Monocytes Absolute Auto 0.8 X10*3/uL (0.1-1.2); Monocytes Percent Auto 9.7 % (2-11); Neutrophils Absolute Auto 4.8 x10*3/uL (2.0-8.3); Neutrophils Percent Auto 61.7 % (45-73); Platelet Count 181 X10*3/uL (160-400); Red Blood Count 4.67 X10*6/uL (4.20-5.50); Red Cell Distribution Width 15.5 % (11.0-16.0); White Blood Count 7.7 X10*3/uL (4.8-10.8)
[2021-10-25 07:20] VITALS: BP 131/64; PULSE 65; RESP 18; TEMP 36.2; O2SAT 100
[2021-10-25 07:35] LABS: Glucose, Whole Blood 145 mg/dL (60-115)
--- NOTE | 2021-10-25 08:40 | P.PNIM_ITS ---
Subjective Subjective Date of Service: 10/25/21 Interval History: cc: LLE erythema after abrasion interval history: a bit better Cardiovascular Cardiovascular: Reports no additional cardiovascular complaints Respiratory Respiratory: Reports no additional respiratory complaints Physical Exam Vital Signs: Vital Signs: Last Vital Signs Temp 97.1 F 10/25/21 07:20 Pulse 65 10/25/21 07:20 Resp 18 10/25/21 07:20 BP 131/64 10/25/21 07:20 Pulse Ox 100 10/25/21 07:20 BMI result Body Mass Index 42.9 General: AO X 3, no acute distress Resp: CTA bilateral, no accessory muscles used CVS: S1,S2,RRR GI: soft, non tender, non distended Neuro: motor grossly intact, alert Psych: appropriate affect, appropriate insight ext: 2-3+ edema, bilateral stasis dermatits, LLE erythema and warmth>RLE, with abrasions Objective Data Active Medications Acetaminophen (Acetaminophen 325 Mg Tablet) 650 mg PO Q6H PRN PRN Reason: Pain, Mild (Pain Scale 1-3) Albuterol Sulfate (Albuterol Sulfate 90 Mcg 8 Gm Inhaler) 2 puff INHALE Q4H PRN PRN Reason: Wheezing Apixaban (Apixaban 5 Mg Tablet) 5 mg PO BID [facility] Aspirin (Aspirin Enteric Coated 81 Mg Tablet.Dr) 81 mg PO DAILY [facility] Atorvastatin Calcium (Atorvastatin Calcium 20 Mg Tablet) 20 mg PO BEDTIME [facility] Fluticasone Propionate (Fluticasone Propionate 100 Mcg Blst.W.Dev) 1 puff INHALE BID [facility] Last Admin: 10/25/21 07:39 Dose: Not Given Documented by: ROBERTO Non-Admin Reason: Med Not Available Furosemide (Furosemide 20 Mg Tablet) 20 mg PO DAILY [facility]; Protocol Gabapentin (Gabapentin 300 Mg Capsule) 300 mg PO BID [facility] Hydromorphone HCl (Hydromorphone Hcl 1 Mg/Ml Syringe) 0.5 mg IVPUSH Q4H PRN; Protocol PRN Reason: Pain, Severe (Pain Scale 7-10) Piperacillin Sod/Tazobactam (Sod 3.375 gm/ Sodium Chloride) 50 mls @ 100 mls/hr IV Q6H [facility] Last Infusion: 10/25/21 04:23 Dose: 0 mls/hr Documented by: [email or web address] Vancomycin HCl 750 mg/ Sodium (Chloride) 265 mls @ 265 mls/hr IV Q12H [facility] Insulin Glargine (Insulin Glargine,Hum.Rec.Anlog 100 Unit/Ml 10 Ml Vial) 30 unit SUBCUT DAILY [facility] Insulin Human Lispro (Insulin Lispro 100 Unit/Ml 3 Ml Vial) 0 unit SUBCUT TIDAC [facility]; Protocol Last Admin: 10/25/21 07:39 Dose: Not Given Documented by: SRI Non-Admin Reason: No Insulin Coverage Lisinopril (Lisinopril 5 Mg Tablet) 5 mg PO DAILY [facility]; Protocol Melatonin (Melatonin 3 Mg Tablet) 6 mg PO BEDTIME PRN PRN Reason: Insomnia Metoprolol Tartrate (Metoprolol Tartrate 50 Mg Tablet) 50 mg PO BID [facility]; Protocol Pharmacy Consult (Consult Rx Vancomycin Dosing) 1 each MISCELLANE DAILY PRN PRN Reason: Consult order Senna (Sennosides 8.6 Mg Tablet) 17.2 mg PO BEDTIME PRN PRN Reason: Constipation Sodium Chloride (0.9 % Sodium Chloride Flush 3 Ml Syringe) 3 ml IVFLUSH QSHIFT [facility] Last Admin: 10/25/21 02:26 Dose: Not Given Documented by: KIMBERLEY Non-Admin Reason: IV Running Labs CBC & Chem 7: 10/25/21 04:32 10/25/21 04:32 Labs: Laboratory Results - last 24 hr 10/24/21 10/24/21 10/24/21 19:32 19:32 19:32 MCV 86.3 MCH 27.7 MCHC 32.1 RDW 15.5 Plt Count 210 D MPV 11.4 Immature Gran % (Auto) 0.3 Neut % (Auto) 69.0 Lymph % (Auto) 18.6 L [place] % (Auto) 8.5 Eos % (Auto) 3.3 Baso % (Auto) 0.3 Lymph # (Auto) 1.8 [place] # (Auto) 0.8 Eos # (Auto) 0.3 Baso # (Auto) 0.0 Abs Immat Gran (auto) 0.03 Absolute Neuts (auto) 6.7 Absolute Nucleated RBC 0.000 Nucleated RBC % (auto) 0.0 PT 14.1 H INR 1.2 H APTT 37.9 Anion Gap 15 Estim Creat Clear Calc 79.5 Estimated GFR > 60 POC Glucose Random Glucose 266 H Lactic Acid Calcium 9.6 D Magnesium 1.6 Total Bilirubin 0.5 Direct Bilirubin 0.2 AST 13 D ALT 18 Alkaline Phosphatase 129 H D Troponin I High Sens B-Natriuretic Peptide Total Protein 7.1 Albumin 3.7 Lipase 10 Urine Color Urine Appearance Urine pH Ur Specific [place] Urine Protein Urine Glucose (UA) Urine Ketones Urine Blood Urine Nitrite Ur Leukocyte Esterase Urine RBC Urine WBC Ur Squamous Epith Cells Urine Bacteria Influenza Type A (PCR) Influenza Type B (PCR) RSV RNA Qual (PCR) SARS-CoV-2 RNA (RT-PCR) 10/24/21 10/24/21 10/24/21 19:32 19:32 19:36 MCV MCH MCHC RDW Plt Count MPV Immature Gran % (Auto) Neut % (Auto) Lymph % (Auto) [place] % (Auto) Eos % (Auto) Baso % (Auto) Lymph # (Auto) [place] # (Auto) Eos # (Auto) Baso # (Auto) Abs Immat Gran (auto) Absolute Neuts (auto) Absolute Nucleated RBC Nucleated RBC % (auto) PT INR APTT Anion Gap Estim Creat Clear Calc Estimated GFR POC Glucose Random Glucose Lactic Acid 1.5 Calcium Magnesium Total Bilirubin Direct Bilirubin AST ALT Alkaline Phosphatase Troponin I High Sens 16.3 B-Natriuretic Peptide 78 Total Protein Albumin Lipase Urine Color YELLOW Urine Appearance TURBID Urine pH 6.0 Ur Specific [place] 1.020 Urine Protein 1+ H Urine Glucose (UA) 250 H Urine Ketones NEG Urine Blood 3+ H Urine Nitrite POS H Ur Leukocyte Esterase 3+ H Urine RBC 50-75 H Urine WBC 15-29 H Ur Squamous Epith Cells 1+ Urine Bacteria 3+ Influenza Type A (PCR) Influenza Type B (PCR) RSV RNA Qual (PCR) SARS-CoV-2 RNA (RT-PCR) 10/24/21 10/24/21 10/24/21 19:50 22:21 23:18 MCV MCH MCHC RDW Plt Count MPV Immature Gran % (Auto) Neut % (Auto) Lymph % (Auto) [place] % (Auto) Eos % (Auto) Baso % (Auto) Lymph # (Auto) [place] # (Auto) Eos # (Auto) Baso # (Auto) Abs Immat Gran (auto) Absolute Neuts (auto) Absolute Nucleated RBC Nucleated RBC % (auto) PT INR APTT Anion Gap Estim Creat Clear Calc Estimated GFR POC Glucose 207 H Random Glucose Lactic Acid Calcium Magnesium Total Bilirubin Direct Bilirubin AST ALT Alkaline Phosphatase Troponin I High Sens 21.0 H B-Natriuretic Peptide Total Protein Albumin Lipase Urine Color Urine Appearance Urine pH Ur Specific [place] Urine Protein Urine Glucose (UA) Urine Ketones Urine Blood Urine Nitrite Ur Leukocyte Esterase Urine RBC Urine WBC Ur Squamous Epith Cells Urine Bacteria Influenza Type A (PCR) NEGATIVE Influenza Type B (PCR) NEGATIVE RSV RNA Qual (PCR) NEGATIVE SARS-CoV-2 RNA (RT-PCR) NEGATIVE 10/25/21 10/25/21 10/25/21 04:32 04:32 07:18 MCV 87.2 MCH 27.8 MCHC 31.9 RDW 15.5 Plt Count 181 MPV 11.0 Immature Gran % (Auto) 0.1 Neut % (Auto) 61.7 Lymph % (Auto) 23.4 [place] % (Auto) 9.7 Eos % (Auto) 4.8 H Baso % (Auto) 0.3 Lymph # (Auto) 1.8 [place] # (Auto) 0.8 Eos # (Auto) 0.4 Baso # (Auto) 0.0 Abs Immat Gran (auto) 0.01 Absolute Neuts (auto) 4.8 Absolute Nucleated RBC 0.000 Nucleated RBC % (auto) 0.0 PT INR APTT Anion Gap 12 Estim Creat Clear Calc 98.9 Estimated GFR > 60 POC Glucose 145 H Random Glucose 156 H Lactic Acid Calcium 8.8 D Magnesium Total Bilirubin Direct Bilirubin AST ALT Alkaline Phosphatase Troponin I High Sens B-Natriuretic Peptide Total Protein Albumin Lipase Urine Color Urine Appearance Urine pH Ur Specific [place] Urine Protein Urine Glucose (UA) Urine Ketones Urine Blood Urine Nitrite Ur Leukocyte Esterase Urine RBC Urine WBC Ur Squamous Epith Cells Urine Bacteria Influenza Type A (PCR) Influenza Type B (PCR) RSV RNA Qual (PCR) SARS-CoV-2 RNA (RT-PCR) Assessment and Plan (1) Chronic heart failure with preserved ejection fraction (HFpEF): Status: Acute Plan 71F presented with LLE erythema LLE cellulitis assoicated with recent abrasion and chronic venous stasis vanc, zosyn, id, cultures bacturia with chronic rai unclear if clinically significant continue zosyn, follow up ID paroxysmal afib eliquis lopressor DM insulin montiro poc chronic diastolic chf lasix hx of cva, pvd eliquis, statin, asa mild intermittent asthma bronchodilators as needed morbid obesity weight loss reason for continued hospitalization: significant celultis with risk factors of DM, obesity, requiring inpatient IV abx, risk for progressin to sepsis Quality Stroke Does the patient have a stroke diagnosis?: No VTE Prior VTE?: No VTE Risk Level:: Medical - moderate - high VTE Device Contraindication: Treatment Not Indicated VTE Drug Contraindication: N/A - Med Ordered
[2021-10-25] MEDS: vancomycin HCL 750 MG in 0.9 % Sodium Chloride 250 ML 265 MG IV ×2 (09:33→20:27)
[2021-10-25] MEDS: 0.9 % Sodium Chloride Flush 3 ML SYRINGE IVFLUSH ×3 (09:33→19:44)
[2021-10-25] MEDS: Insulin Glargine,Hum.rec.anlog 100 UNIT/ML 10 ML VIAL 30 UNIT SUBCUT (09:33)
[2021-10-25] MEDS: Furosemide 20 MG TABLET PO (09:34)
[2021-10-25] MEDS: Apixaban 5 MG TABLET PO ×2 (09:34→19:44)
[2021-10-25] MEDS: Aspirin Enteric Coated 81 MG TABLET.DR PO (09:34)
[2021-10-25] MEDS: Gabapentin 300 MG CAPSULE PO ×2 (09:34→19:44)
[2021-10-25] MEDS: Metoprolol Tartrate 50 MG TABLET PO ×2 (09:34→19:44)
[2021-10-25] MEDS: lisinopriL 5 MG TABLET PO (09:34)
[2021-10-25 11:06] VITALS: BP 142/63; PULSE 58; RESP 18; TEMP 36.2; O2SAT 98
[2021-10-25 11:12] LABS: Glucose, Whole Blood 212 mg/dL (60-115)
[2021-10-25] MEDS: Insulin Lispro 100 UNIT/ML 3 ML VIAL SUBCUT ×2 (11:59→17:05)
[2021-10-25 15:30] VITALS: BP 159/74; PULSE 63; RESP 18; TEMP 36.2; O2SAT 100
[2021-10-25 16:05] LABS: Glucose, Whole Blood 206 mg/dL (60-115)
--- NOTE | 2021-10-25 16:07 | MHC.CM.PN ---
PT REPORTS SHE LIVES ALONE AND HAS [employer] DAILY [employer] [employer] [facility] SHE REPORTS SHE IS BED/CHAIR BOUND AT [facility] AND REQUIRES A [facility] TO TRANSFER PT HAS A HCP ON FILE PCP IS LEONORA JAUREGUI. PT ALSO GOES TO A DAY PROGRAM, [facility] IMM DELIVERED DC PLAN, [facility] BLS TRANSPORT
[2021-10-25 18:58] VITALS: O2SAT 95
[2021-10-25 19:05] VITALS: BP 148/73; PULSE 73; RESP 20; TEMP 36.2; O2SAT 97
[2021-10-25] MEDS: Atorvastatin Calcium 20 MG TABLET PO (19:44)
[2021-10-25] MEDS: Nystatin Cream 15 GM TUBE 1 APPL TOPICAL (19:55)
[2021-10-25 20:39] LABS: Glucose, Whole Blood 182 mg/dL (60-115)
--- NOTE | 2021-10-25 22:47 | P.CNID_ITS ---
History of Present Illness Data of Consult Service Date: 10/25/21 Requesting physician: Joseph Kirkpatrick Primary Care Provider: Cherise Hamm MD HPI Reason for consult: cellulitis,UTI She presents with redness LLE after hitting leg day before on cement. She has no fever or chills. She also has dysuria and prior E coli UTI in June. Review of Systems Review of Systems: Yes all other systems are reviewed and are negative [facility] Past Medical History Medical History Aortic stenosis Bacteriuria Chronic indwelling Molina catheter Chronic UTI Chronic UTI Congestive heart failure COPD (chronic obstructive pulmonary disease) Diabetes Diarrhea Glaucoma H/O: CVA (cerebrovascular accident) Hypertension Non-rheumatic aortic stenosis Obesity Osteoarthritis Paroxysmal atrial fibrillation Severe sepsis Family History Family History Father No problems noted. Mother No problems noted. Family history: reviewed and not pertinent Surgical History Surgical History H/O adenoidectomy H/O enucleation of left eyeball History of tonsillectomy Social History Social History Household Members: None Housing: Apartment Do you presently have visiting nurse or other home services: Yes Unable to assess alcohol history related to: Unknown Alcohol intake: never Patient Tobacco Use Status: Never used Tobacco Second Hand Smoke Exposure: No Use of substances other than those prescribed or required for medical reasons: No Have you been hit, kicked, punched, or otherwise hurt by someone within the past year? If so, by whom?: No Do you feel safe in your current relationship?: No Is there a partner from a previous relationship who is making you feel unsafe now?: No Are you made to feel afraid or neglected: No Advance Directives: Yes Advance Directives on File: Yes Advance Directives Date on File: 07/09/20 Do you have thoughts of harming others: None Do you have a plan to hurt others: No Plan Recently lost weight without trying: No Eating poorly because of decreased appetite: No Nutrition Risks: No Nutritional Risk and Difficulty chewing service: No Current occupational status: disabled Meds Allergies Allergy/AdvReac Type Severity Reaction Status Date / Time silver sulfadiazine Allergy Unknown UNK Verified 07/27/21 14:29 [From SILVADENE] Active Medications: Current Medications Acetaminophen (Acetaminophen 325 Mg Tablet) 650 mg PO Q6H PRN PRN Reason: Pain, Mild (Pain Scale 1-3) Albuterol Sulfate (Albuterol Sulfate 90 Mcg 8 Gm Inhaler) 2 puff INHALE Q4H PRN PRN Reason: Wheezing Apixaban (Apixaban 5 Mg Tablet) 5 mg PO BID [facility] Last Admin: 10/25/21 19:44 Dose: 5 mg Documented by: Aspirin (Aspirin Enteric Coated 81 Mg Tablet.) 81 mg PO DAILY [facility] Last Admin: 10/25/21 09:34 Dose: 81 mg Documented by: Atorvastatin Calcium (Atorvastatin Calcium 20 Mg Tablet) 20 mg PO BEDTIME [facility] Last Admin: 10/25/21 19:44 Dose: 20 mg Documented by: Fluticasone Propionate (Fluticasone Propionate 100 Mcg Blst.W.Dev) 1 puff IN FERRER BID [facility] Last Admin: 10/25/21 20:13 Dose: Not Given Documented by: Furosemide (Furosemide 20 Mg Tablet) 20 mg PO DAILY [facility]; Protocol Last Admin: 10/25/21 09:34 Dose: 20 mg Documented by: Gabapentin (Gabapentin 300 Mg Capsule) 300 mg PO BID [facility] Last Admin: 10/25/21 19:44 Dose: 300 mg Documented by: Hydromorphone HCl (Hydromorphone Hcl 1 Mg/Ml Syringe) 0.5 mg IVPUSH Q4H PRN; Protocol PRN Reason: Pain, Severe (Pain Scale 7-10) Piperacillin Sod/Tazobactam (Sod 3.375 gm/ Sodium Chloride) 50 mls @ 100 mls/hr IV Q6H [facility] Last Infusion: 10/25/21 20:28 Dose: Infused Documented by: Vancomycin HCl 750 mg/ Sodium (Chloride) 265 mls @ 265 mls/hr IV Q12H [facility] Last Infusion: 10/25/21 21:30 Dose: Infused Documented by: Insulin Glargine (Insulin Glargine,Hum.Rec.Anlog 100 Unit/Ml 10 Ml Vial) 30 unit SUBCUT DAILY [facility] Last Admin: 10/25/21 09:33 Dose: 30 unit Documented by: Insulin Human Lispro (Insulin Lispro 100 Unit/Ml 3 Ml Vial) [facility]; Protocol Last Admin: 10/25/21 17:05 Dose: 4 unit Documented by: Lisinopril (Lisinopril 5 Mg Tablet) 5 mg PO DAILY [facility]; Protocol Last Admin: 10/25/21 09:34 Dose: 5 mg Documented by: Melatonin (Melatonin 3 Mg Tablet) 6 mg PO BEDTIME PRN PRN Reason: Insomnia Metoprolol Tartrate (Metoprolol Tartrate 50 Mg Tablet) 50 mg PO BID [facility]; Protocol Last Admin: 10/25/21 19:44 Dose: 50 mg Documented by: Nystatin (Nystatin Cream 15 Gm Tube) 1 appl TOPICAL BID [facility]; Protocol Last Admin: 10/25/21 19:55 Dose: 1 appl Documented by: Pharmacy Consult (Consult Rx Vancomycin Dosing) 1 each MISCELLANE DAILY PRN PRN Reason: Consult order Senna (Sennosides 8.6 Mg Tablet) 17.2 mg PO BEDTIME PRN PRN Reason: Constipation Sodium Chloride (0.9 % Sodium Chloride Flush 3 Ml Syringe) [facility] Admin: 10/25/21 19:44 Dose: 3 ml Documented by: Home Medications Medication Instructions Recorded Confirmed Last Taken Type albuterol sulfate 90 mcg/actuation 2 puff INHALATION Q4-6H PRN 01/23/21 10/24/21 Unknown History aerosol inhaler (Proventil HFA) apixaban 5 mg tablet (Eliquis) 5 mg PO BID 01/23/21 10/24/21 10/24/21 History gabapentin 300 mg capsule 300 mg PO BID 01/23/21 10/24/21 10/24/21 History insulin lispro 100 unit/mL See Protocol SUBCUT TIDAC 01/23/21 10/24/21 10/24/21 History subcutaneous solution (Humalog U-100 Insulin) lisinopril 5 mg tablet 5 mg PO DAILY 01/23/21 10/24/21 10/24/21 History simvastatin 40 mg tablet 40 mg PO BEDTIME 01/23/21 10/24/21 10/23/21 History furosemide 20 mg tablet 20 mg PO DAILY 05/04/21 10/24/21 10/24/21 History Lactobacillus rhamnosus GG 10 1 cap PO DAILY 10/24/21 10/24/21 Unknown History billion cell capsule (Culturelle) aspirin 81 mg tablet,delayed 81 mg PO DAILY 10/24/21 10/24/21 10/24/21 History release fluticasone propionate 100 1 puff PO BID 10/24/21 10/24/21 10/24/21 History mcg/actuation blister powder for inhalation (Flovent Diskus) insulin glargine 100 unit/mL (3 64 unit SUBCUT DAILY 10/24/21 10/24/21 10/24/21 History mL) subcutaneous pen (Lantus Solostar U-100 Insulin) metformin 850 mg tablet 1 tab PO DAILY 10/24/21 10/24/21 10/24/21 History metoprolol tartrate 50 mg tablet 1 tab PO BID 10/24/21 10/24/21 10/24/21 History Physical Exam Vital Signs: Vital Signs: Last Vital Signs Temp 97.2 F 10/25/21 19:05 Pulse 73 10/25/21 19:05 Resp 20 10/25/21 19:05 BP 148/73 H 10/25/21 19:05 Pulse Ox 97 10/25/21 19:05 BMI result Body Mass Index 42.9 Const: General: cooperative HEENT: Head: Yes normal to inspection Mouth: Normal oral and palatal mucosa present Eyes: General: appearance normal, both eyes and all related structures Pupils: Equal, round and reactive pupils present Resp: Effort & Inspection: normal respiratory effort Cardio: Rate: regular rate Rhythm: regular rhythm GI: Palpation (GI): Soft to palpation and nontender Skin: General skin exam: no rashes or lesions noted Neuro: Cranial nerves: Yes Equal, round and reactive pupils present Extrem: Other: LLE venous stasis and area of cellulitis around scrape Results Labs CBC & Chem 7: 10/25/21 04:32 10/25/21 04:32 Labs: Short CBC 10/25/21 Range/Units 04:32 WBC 7.7 (4.8-10.8) X10*3/uL Hgb 13.0 (12.0-16.0) g/dl Hct 40.7 (37.0-47.0) % Plt Count 181 (160-400) X10*3/uL BMP 10/25/21 04:32 Sodium 138 Potassium 3.9 Chloride 95 L Carbon Dioxide 35 H BUN 18 H Creatinine 0.70 Calcium 8.8 D Microbiology Microbiology Results: Microbiology 10/24/21 19:33 Blood - Venous Blood Culture - Preliminary No growth after 24 hours. 10/24/21 19:32 Blood - Venous Blood Culture - Preliminary No growth after 24 hours. 10/24/21 19:49 Urine clean catch - Urine bojorquez top Urine Culture - Preliminary Culture in progress. Assessment and Plan (1) UTI (urinary tract infection): Status: Acute (2) Cellulitis: Qualifiers: Laterality: left Site of cellulitis: extremity Site of cellulitis of extremity: lower extremity Qualified Code(s): L03.116 - Cellulitis of left lower limb Status: Acute There is possible staph or strep cellulitis She has possible E coli UTI Plan Continue Zosyn and Vancomycin and then po Augmentin and Doxycycline. 10 d possible. Await cultures. Elevate,treat venous stasis
[2021-10-26] VITALS: BP 156/68; PULSE 57; RESP 18; TEMP 36.4; O2SAT 98
[2021-10-26] MEDS: Piperacillin Sodium/Tazobactam 3.375 GM in 0.9 % Sodium Chloride 50 ML IV ×2 (01:56→08:29)
[2021-10-26 04:00] VITALS: BP 145/62; PULSE 60; TEMP 36.3
[2021-10-26 06:09] LABS: Hematocrit 40.3 % (37.0-47.0); Hemoglobin 12.6 g/dl (12.0-16.0); Mean Corpuscular HGB Conc 31.3 g/dl (31.0-35.0); Mean Corpuscular Hemoglobin 27.5 pg (27.0-33.0); Mean Platelet Volume 11.4 fL (9.4-12.3); Platelet Count 180 X10*3/uL (160-400); Red Blood Count 4.58 X10*6/uL (4.20-5.50); Red Cell Distribution Width 15.4 % (11.0-16.0); White Blood Count 6.6 X10*3/uL (4.8-10.8)
[2021-10-26 06:37] LABS: Anion Gap 9 (12-20); Blood Urea Nitrogen 11 mg/dL (9-16); Calcium 8.8 mg/dL (8.4-10.2); Carbon Dioxide 35 mmol/L (22-29); Chloride 97 mmol/L (96-108); Creatinine Clr Calc Pharmacy 113.6; Estimated Glomerular Filt Rate > 60; Glucose Fasting 171 mg/dL (60-99); Sodium 137 mmol/L (135-145)
[2021-10-26 06:39] LABS: Vancomycin Trough 9.7 mcg/mL (10.0-20.0)
--- NOTE | 2021-10-26 06:51 | HE.PHANOTE ---
RE VANCO Blood cultures negative. Changed vanco dose to 1 gram q12, still conservative using the obese model. Last trough 9.7. Next trough schedu;ed 10/27 @1800
[2021-10-26 07:08] VITALS: BP 139/64; PULSE 60; RESP 18; TEMP 36.3; O2SAT 98
[2021-10-26] MEDS: Insulin Lispro 100 UNIT/ML 3 ML VIAL SUBCUT ×2 (07:35→12:29)
[2021-10-26 07:53] LABS: Glucose, Whole Blood 181 mg/dL (60-115)
[2021-10-26] MEDS: 0.9 % Sodium Chloride Flush 3 ML SYRINGE IVFLUSH (08:30)
--- NOTE | 2021-10-26 08:39 | PM.DS ---
DS: Providers Provider Date of Service: 10/26/21 Date of admission: 10/24/21 22:43 Primary care physician: Cherise Hamm MD Consults: 10/24/21 22:53 Consult to Infectious Diseases Routine Consulting Provider: Cookie Benz Reason for consultation: cellulitis; UTI DS: Diagnosis Discharge Diagnosis (1) UTI (urinary tract infection): Status: Acute (2) Cellulitis: Status: Acute DS: Summary Hospital Course Hospital Course: from initial hpi: Chief Complaint: Left leg pain redness and swelling 71-year-old female with a past medical history of hypertension, hyperlipidemia, diabetes, chronic indwelling Molina, recurrent UTI, history of CVA, history of nonrheumatic aortic stenosis, paroxysmal AFib, congestive heart failure, glaucoma, osteoarthritis, obesity, history of cellulitis; presented to the hospital today with a chief complaint of left leg pain redness and swelling.? Patient reports that over the past few days she has been having increased pain redness and swelling of her left wrist; patient mentioned she initially scratched on the lateral side of the leg; followed by gradually it has increased redness and swelling.? Pain limiting her ambulation.? Denies any falls or trauma.? Denies any chest pain palpitations lightheadedness or dizziness.? Denies any fever chills cough.? Denies any GI symptoms.? Review of all other systems is negative except mentioned above ER course: Per ER team patient noted to have increased tenderness, redness, swelling of the left lower extremity with mild ulcerations on the later part of the legs; arteriogram showed mild intermittent stenosis throughout the course of the left lower extremity particularly in the common femoral and proximal superficial femoral artery; venous duplex was negative for any blood or; x-ray showed no evidence of osteomyelitis; patient was given IV vancomycin and Zosyn.? Admitted to the hospital for further management. hospital course: Patient was admitted for left lower extremity cellulitis associated with recent operation and chronic venous stasis. She was treated vancomycin and Zosyn, she was seen by infectious disease recommended completing 10 day course of Augmentin and doxycycline. Her blood cultures remained negative. Patient was also noted to have urinary tract infection associated with chronic Molina. This will be covered with the same antibiotics. Cultures pending, antibiotics may need to be adjusted depending on results. For her paroxysmal atrial fibrillation she was continued on Eliquis and Lopressor. For her diabetes she was continued on insulin, for chronic diastolic CHF SIRS continue Lasix, for history of CVA and peripheral vascular disease she was continued on Eliquis, statin, aspirin. For her mild intermittent asthma she can continue bronchodilators as needed. For morbid obesity weight loss is recommended. Patient's cellulitis improved, she no longer has pain at the site and the erythema has gone down significantly. She had no sepsis. Patient will be discharged home on 7 more days of oral antibiotics to complete course. Time Spent with Patient Time attestation: Total time spent providing and/or coordinating discharge services: Discharge coordination time: Greater than 30 minutes Quality: Safe Use of Opioids Does Pt have an Active Cancer Diagnosis on the Problem List?: No Quality: Stroke Does the patient have a stroke diagnosis?: No Physical Exam Vital Signs: Vital Signs: Last Vital Signs Temp 97.4 F 10/26/21 07:08 Pulse 60 10/26/21 07:08 Resp 18 10/26/21 07:08 BP 139/64 10/26/21 07:08 Pulse Ox 98 10/26/21 07:08 BMI result Body Mass Index 42.9 Const General:?cooperative HEENT Head:?Yes normal to inspection Mouth:?Normal oral and palatal mucosa present Eyes General:?appearance normal, both eyes and all related structures Pupils:?Equal, round and reactive pupils present Resp Effort & Inspection:?normal respiratory effort Cardio Rate:?regular rate Rhythm:?regular rhythm GI Palpation (GI):?Soft to palpation and nontender Skin General skin exam:?no rashes or lesions noted Neuro Cranial nerves:?Yes Equal, round and reactive pupils present Extrem Other: LLE venous stasis and area of cellulitis around scrape improved DS: Data Data Completed and Pending Completed studies during hospitalization [Text1]: Procedures Excision of Large Intestine, Via Natural or Artificial Opening Endoscopic, Diagnostic (09/20/20) Labs on day of discharge: Laboratory Results - last 24 hr 10/25/21 10/25/21 10/25/21 11:03 15:32 20:28 WBC RBC Hgb Hct MCV MCH MCHC RDW Plt Count MPV Absolute Nucleated RBC Nucleated RBC % (auto) Sodium Potassium Chloride Carbon Dioxide Anion Gap BUN Creatinine Estim Creat Clear Calc Estimated GFR POC Glucose 212 H 206 H 182 H Fasting Glucose Calcium Vancomycin Trough 10/26/21 10/26/2110/26/22 05:51 05:51 05:51 WBC 6.6 RBC 4.58 Hgb 12.6 Hct 40.3 MCV 88.0 MCH 27.5 MCHC 31.3 RDW 15.4 Plt Count 180 MPV 11.4 Absolute Nucleated RBC 0.000 Nucleated RBC % (auto) 0.0 Sodium 137 Potassium 4.0 Chloride 97 Carbon Dioxide 35 H Anion Gap 9 L BUN 11 Creatinine 0.61 Estim Creat Clear Calc 113.6 Estimated GFR > 60 POC Glucose Fasting Glucose 171 H Calcium 8.8 Vancomycin Trough 9.7 L 10/26/21 07:05 WBC RBC Hgb Hct MCV MCH MCHC RDW Plt Count MPV Absolute Nucleated RBC Nucleated RBC % (auto) Sodium Potassium Chloride Carbon Dioxide Anion Gap BUN Creatinine Estim Creat Clear Calc Estimated GFR POC Glucose 181 H Fasting Glucose Calcium Vancomycin Trough Preliminary micro results at discharge 10/24/21 19:33 Blood Culture - Preliminary Blood - Venous No growth after 24 hours. 10/24/21 19:32 Blood Culture - Preliminary Blood - Venous No growth after 24 hours. 10/24/21 19:49 Urine Culture - Preliminary Urine clean catch - Urine bojorquez top Culture in progress. Discharge Plan Discharge Patient Disposition: Home Health Service Discharge Diagnosis: cellulitis, cauti Referrals: Cherise Hamm MD [Primary Care Provider] - 1 Week Discharge Medications: New amoxicillin-pot clavulanate 875-125 mg tablet 1 tab PO Q12H Qty: 14 0RF doxycycline hyclate 100 mg tablet 100 mg PO BID Qty: 14 0RF Continued simvastatin 40 mg tablet 40 mg PO BEDTIME 0RF gabapentin 300 mg capsule 300 mg PO BID 0RF lisinopril 5 mg tablet 5 mg PO DAILY 0RF insulin lispro [Humalog U-100 Insulin] 100 unit/mL solution See Protocol sliding scale dose subcut TIDAC 0RF Protocol: Insulin Correction Scale Less than or equal to 110 ---- Give (units): 0 111 to 150 Give (units): 0 151 to 200 Give (units): 2 201 to 250 Give (units): 4 251 to 300 Give (units): 6 301 to 350 Give (units): 8 Greater than 350 Give (units): 10 Call MD if Blood Glucose > : 350 albuterol sulfate [Proventil HFA] 90 mcg/actuation HFA aerosol inhaler 2 puff inhalation Q4-6H PRN (Reason: Wheezing) 0RF Eliquis 5 mg tablet 5 mg PO BID 0RF furosemide 20 mg tablet 20 mg PO DAILY 0RF metformin 850 mg tablet 1 tab PO DAILY 0RF Flovent Diskus 100 mcg/actuation blister with device 1 puff PO BID 0RF Lantus Solostar U-100 Insulin 100 unit/mL (3 mL) insulin pen 64 unit subcut DAILY 0RF aspirin 81 mg Tablet,Delayed Release (Dr/Ec) 81 mg PO DAILY 0RF metoprolol tartrate 50 mg tablet 1 tab PO BID 0RF Culturelle 10 billion cell Capsule 1 cap PO DAILY 0RF Discharge Orders: Discharge Order (Routine); Ordered 10/26/21 Ordered By: Joseph Kirkpatrick Diet: advance to usual diet Activity on Discharge: As tolerated Stand Alone Forms: Patient Portal Discharge page Care Plan Goals: recovery Health Concerns: cellulitis, cauti Plan of Treatment: 7 more days augmentin and doxy Assessment: see above
[2021-10-26 10:50] VITALS: BP 160/69; PULSE 71; RESP 18; TEMP 36.1; O2SAT 96
[2021-10-26 10:55] LABS: Glucose, Whole Blood 301 mg/dL (60-115)
[2021-10-26] MEDS: Insulin Glargine,Hum.rec.anlog 100 UNIT/ML 10 ML VIAL 30 UNIT SUBCUT (11:06)
[2021-10-26] MEDS: Apixaban 5 MG TABLET PO (11:07)
[2021-10-26] MEDS: Metoprolol Tartrate 50 MG TABLET PO (11:07)
[2021-10-26] MEDS: lisinopriL 5 MG TABLET PO (11:08)
[2021-10-26] MEDS: Aspirin Enteric Coated 81 MG TABLET.DR PO (11:08)
[2021-10-26] MEDS: Gabapentin 300 MG CAPSULE PO (11:08)
[2021-10-26] MEDS: Furosemide 20 MG TABLET PO (11:09)
[2021-10-26] MEDS: vancomycin HCL 1,000 MG in 0.9 % Sodium Chloride 250 ML 270 MG IV (11:15)
--- NOTE | 2021-10-26 11:35 | W.MHC.F2F ---
Service Date Service Date: 10/26/21 Encounter Date of encounter: 10/26/21 Reasons for Services Signs and symptoms assessed: weakness Reason for long-term: medication management, medication treatment and teach disease management Homebound: Leaving the home is medically contraindicated at this time without the asist of a device and/or another person due th the listed conditions above and below. Reason homebound: unsteady gait / fall risk Certification: Based on the above findings, I certify that this patient is confined to the home and needs intermittent long-term care, physical therapy and/or speech therapy, or continues to need occupational therapy. The patient is under my care, and I have initiated the establishment of the plan of care. The patient will be followed by a physician who will periodically review the plan of care.
[2021-10-26] MEDS: Nystatin Cream 15 GM TUBE 1 APPL TOPICAL (11:40)
--- NOTE | 2021-10-26 12:06 | MHC.CM.PN ---
Addendum entered by Cande Leal 10/26/21 13:38: [facility] Addendum entered by Cande Leal 10/26/21 13:22: recived call back from [facility] they can not accept patient trying to secure another [facility] Original Note: nurse case management social worker note electronic medical record reviewed along with case discussed with staff nurse and hospitalist and patient she would like to have [facility] back again , referral iniated to them they reported [facility] could not see her for nursing until tuesday 10/31 i checked with the [facility] and they said it was ok all discharge paperwork sent to them via allscript discharge plan 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
[2021-10-26 12:29] LABS: Glucose, Whole Blood 303 mg/dL (60-115)
== END 2021-10-26 14:45 | disposition home health service (06) | DRG 699 ==
LOC: HO.ED 22:47 → HO.EDOVER 23:16 → HO.S3 10-25 01:59
PROVIDERS: Nurse Practitioner Family; Admitting Provider Hospitalist; Emergency Provider Emergency Medicine Emergency Medical Services; PCP Family Medicine; Visit Provider Internal Medicine
DX: T83.511A Infection and inflammatory reaction due to indwelling urethral catheter, initial encounter (principal); L03.116 Cellulitis of left lower limb; I50.32 Chronic diastolic (congestive) heart failure; Z68.41 Body mass index [BMI] 40.0-44.9, adult; N39.0 Urinary tract infection, site not specified; I87.322 Chronic venous hypertension (idiopathic) with inflammation of left lower extremity; I48.0 Paroxysmal atrial fibrillation; Z20.822 Contact with and (suspected) exposure to COVID-19; Z86.73 Personal history of transient ischemic attack (TIA), and cerebral infarction without residual deficits; J45.20 Mild intermittent asthma, uncomplicated; Z87.440 Personal history of urinary (tract) infections; E78.5 Hyperlipidemia, unspecified; I10 Essential (primary) hypertension; I35.0 Nonrheumatic aortic (valve) stenosis; M19.90 Unspecified osteoarthritis, unspecified site; E66.01 Morbid (severe) obesity due to excess calories; Z90.01 Acquired absence of eye; Z88.8 Allergy status to other drugs, medicaments and biological substances; Z79.4 Long term (current) use of insulin; Z79.01 Long term (current) use of anticoagulants; Z79.82 Long term (current) use of aspirin; Z79.84 Long term (current) use of oral hypoglycemic drugs; Z79.899 Other long term (current) drug therapy
CPT/HCPCS: 0241U; 36415; 71045; 73620; 80048; 80076; 80202; 81001; 82947; 83605; 83690; 83735; 83880; 84484; 85025; 85027; 85610; 85730; 87040; 87086; 93005; 93926; 93971; 96365; 96367; 96375; 99285; 99291; C1758; J1940; J2270; J2543; J3370

== ENCOUNTER 2021-10-27 20:43 | Emergency (ER) | payer MEDICARE, MEDICAID, SELFPAY ==
[2021-10-27 20:49] VITALS: BP 173/87; BP 183/81; PULSE 75; RESP 15; TEMP 36.8; O2SAT 96; BMI 38.7
--- NOTE | 2021-10-27 21:00 | ED_ITS ---
HPI - General Adult General Chief complaint: Wound/Laceration Stated complaint: Blood in Molina Time Seen by Provider: 10/27/21 20:47 Source: patient and EMS Mode of arrival: EMS Limitations: no limitations History of Present Illness HPI narrative: Patient comes to the emergency room complaining of seeing couple of blood clots in her urine back. Patient has a chronic indwelling Molina catheter. Patient was discharged yesterday from the hospital, patient was here for cellulitis and for a urinary tract infection. Patient is currently taking doxycycline and Augmentin. Patient denies any dysuria. Patient denies fever chills, denies flank pain. Related Data Home Medications Medication Instructions Recorded Confirmed albuterol sulfate 90 mcg/actuation 2 puff INHALATION Q4-6H PRN 01/23/21 10/24/21 aerosol inhaler (Proventil HFA) apixaban 5 mg tablet (Eliquis) 5 mg PO BID 01/23/21 10/24/21 gabapentin 300 mg capsule 300 mg PO BID 01/23/21 10/24/21 insulin lispro 100 unit/mL See Protocol SUBCUT TIDAC 01/23/21 10/24/21 subcutaneous solution (Humalog U-100 Insulin) lisinopril 5 mg tablet 5 mg PO DAILY 01/23/21 10/24/21 simvastatin 40 mg tablet 40 mg PO BEDTIME 01/23/21 10/24/21 furosemide 20 mg tablet 20 mg PO DAILY 05/04/21 10/24/21 Lactobacillus rhamnosus GG 10 1 cap PO DAILY 10/24/21 10/24/21 billion cell capsule (Culturelle) aspirin 81 mg tablet,delayed 81 mg PO DAILY 10/24/21 10/24/21 release fluticasone propionate 100 1 puff PO BID 10/24/21 10/24/21 mcg/actuation blister powder for inhalation (Flovent Diskus) insulin glargine 100 unit/mL (3 64 unit SUBCUT DAILY 10/24/21 10/24/21 mL) subcutaneous pen (Lantus Solostar U-100 Insulin) metformin 850 mg tablet 1 tab PO DAILY 10/24/21 10/24/21 metoprolol tartrate 50 mg tablet 1 tab PO BID 10/24/21 10/24/21 Previous Rx's Medication Instructions Recorded amoxicillin 875 mg-potassium 1 tab PO Q12H #14 tab 10/26/21 clavulanate 125 mg tablet doxycycline hyclate 100 mg tablet 100 mg PO BID #14 tab 10/26/21 Bacillus coagulans 800 million 1 cell PO DAILY #30 tab 10/27/21 cell tablet (Digestive Advantage Probiotics-Prebiotic) cefuroxime axetil 500 mg tablet 500 mg PO BID #14 tab 10/27/21 Allergies Allergy/AdvReac Type Severity Reaction Status Date / Time silver sulfadiazine Allergy Unknown UNK Verified 07/27/21 14:29 [From TRINY] Review of Systems Review of Systems: Constitutional : No Weight loss, No Fever, No Chills, No Night Sweats, No Fatigue, No Malaise ENT/Mouth : No Hearing loss, No Ear Pain, No Nasal Congestion, No Sinus Pain, No Hoarseness, No sore throat, No Rhinorrhea, No Swallowing Difficulty Eyes: No Eye Pain, No Swelling, No Redness, No Foreign Body, No Discharge, No Vision Changes Cardiovascular : No Chest Pain, No SOB, No Dyspnea on Exertion, No Orthopnea, No Edema, No Palpitations Respiratory : No Cough, No Sputum, No Wheezing, No Smoke Exposure, No Dyspnea Gastrointestinal : No Nausea, No Vomiting, No Diarrhea, No Constipation, No abdominal Pain, No Hematochezia, No Melena Genitourinary : No Dysuria, No Urinary Frequency, complaining of seeing blood clots in the urine, No Urinary Incontinence, No Urgency, No Flank Pain, No Urinary Flow Changes, No Hesitancy Musculoskeletal : No joint pain, No Myalgias, No Joint Swelling Skin : No Skin Lesions, No rash Neuro : No Weakness, No Numbness, No Paresthesias, No Loss of Consciousness, No Dizziness, No Headache Psych : No Anxiety/Panic, No Depression, No SI/HI/AH/VH, No Social Issues, Heme/Lymph: No Bruising, No Bleeding,No Lymphadenopathy Endocrine : No Polyuria, No Polydipsia, No Temperature Intolerance [facility] Past Medical History Medical History Aortic stenosis Bacteriuria Chronic indwelling Molina catheter Chronic UTI Chronic UTI Congestive heart failure COPD (chronic obstructive pulmonary disease) Diabetes Diarrhea Glaucoma H/O: CVA (cerebrovascular accident) Hypertension Non-rheumatic aortic stenosis Obesity Osteoarthritis Paroxysmal atrial fibrillation Severe sepsis Surgical History H/O adenoidectomy H/O enucleation of left eyeball History of tonsillectomy Family History Family History Father No problems noted. Mother No problems noted. Social History Social History Household Members: None Housing: Apartment Do you presently have visiting nurse or other home services: Yes Unable to assess alcohol history related to: Unknown Alcohol intake: never Patient Tobacco Use Status: Never used Tobacco Second Hand Smoke Exposure: No Advance Directives: Yes Advance Directives on File: Yes Advance Directives Date on File: 07/09/20 service: No Current occupational status: disabled Physical Exam ED Vital Signs: Vital Signs - 24 hr 10/27/21 20:49 10/27/21 21:20 10/27/21 22:01 Temperature 98.3 F Pulse Rate 75 69 67 Respiratory Rate 15 15 21 H Blood Pressure 183/81 H 172/73 H Pulse Oximetry 96 95 89 L BMI result Body Mass Index 38.7 Const Other: Appearance: Alert. Oriented X3. No acute distress. Eyes: Pupils equal, round and reactive to light. ENT: Pharynx normal. Neck: Normal inspection. Neck supple. No lymph nodes noted. No crepitus CVS: Normal heart rate and rhythm. Pulses normal. Normal S1 and S2 Respiratory: No respiratory distress. Breath sounds normal. No Wheezing. No rales Abdomen: Soft and nontender. No rigidity. No distention. Skin: Skin warm and dry. Normal skin color. Normal skin turgor. Extremities: Trace pitting edema bilaterally, clean wound in the left leg Neuro: Oriented X 3. No motor deficit. No sensory deficit. Moving all extremities. No slurred speech. CN 2 through 12 grossly intact Psych: calm, cooperative, normal affect Course Course Course Narrative: Patient's urine bag has 1 small blood clot occluding in the bag, overall the urine is completely yellow. Patient has no fever, not tachycardic, blood pressure stable, sepsis is not suspected at this time. Patient will be started on self for oxygen. Patient was given 1 dose of IM ceftriaxone in the emergency room. Molina is draining well. Medical Decision Making Lab Data Labs: Lab Results 10/27/21 Range/Units 21:11 POC Glucose 277 H (60-115) mg/dL Discharge Plan Discharge Clinical Impression: Urinary tract infection Patient Disposition: Home, Self-Care Instructions: Urinary Tract Infection in Women (ED) Additional Instructions: Please follow-up with your primary care physician tomorrow. If you have any worsening or new symptoms, please return to the emergency room or call 911 Prescriptions: New cefuroxime axetil 500 mg tablet 500 mg PO BID Qty: 14 0RF Digestive Advantage Probio-Pre 800 million cell tablet 1 cell PO DAILY Qty: 30 0RF No Action simvastatin 40 mg tablet 40 mg PO BEDTIME 0RF gabapentin 300 mg capsule 300 mg PO BID 0RF lisinopril 5 mg tablet 5 mg PO DAILY 0RF insulin lispro [Humalog U-100 Insulin] 100 unit/mL solution See Protocol sliding scale dose subcut TIDAC 0RF Protocol: Insulin Correction Scale Less than or equal to 110 ---- Give (units): 0 111 to 150 Give (units): 0 151 to 200 Give (units): 2 201 to 250 Give (units): 4 251 to 300 Give (units): 6 301 to 350 Give (units): 8 Greater than 350 Give (units): 10 Call MD if Blood Glucose > : 350 albuterol sulfate [Proventil HFA] 90 mcg/actuation HFA aerosol inhaler 2 puff inhalation Q4-6H PRN (Reason: Wheezing) 0RF Eliquis 5 mg tablet 5 mg PO BID 0RF furosemide 20 mg tablet 20 mg PO DAILY 0RF metformin 850 mg tablet 1 tab PO DAILY 0RF Flovent Diskus 100 mcg/actuation blister with device 1 puff PO BID 0RF Lantus Solostar U-100 Insulin 100 unit/mL (3 mL) insulin pen 64 unit subcut DAILY 0RF aspirin 81 mg Tablet,Delayed Release (Dr/Ec) 81 mg PO DAILY 0RF metoprolol tartrate 50 mg tablet 1 tab PO BID 0RF Culturelle 10 billion cell Capsule 1 cap PO DAILY 0RF amoxicillin-pot clavulanate 875-125 mg tablet 1 tab PO Q12H Qty: 14 0RF doxycycline hyclate 100 mg tablet 100 mg PO BID Qty: 14 0RF
[2021-10-27 21:16] LABS: Glucose, Whole Blood 277 mg/dL (60-115)
[2021-10-27 21:20] VITALS: PULSE 69; RESP 15; O2SAT 95
[2021-10-27 22:01] VITALS: BP 172/73; PULSE 67; RESP 21; O2SAT 89; O2SAT 99
[2021-10-27 22:29] VITALS: PULSE 72; RESP 15; O2SAT 98
[2021-10-27 22:30] LABS: Appearance Urine CLEAR; Color Urine YELLOW; Glucose Urine UA 500 MG/DL (NEG); Leukocyte Esterase Urine 1+ (NEG); Nitrite Urine NEG (NEG); PH 6.5 (5.0-8.0); Specific Gravity - Urine <= 1.005 (1.005-1.025); UACC Culture Trigger YES; Urine Blood 3+ (NEG); Urine Ketones NEG (NEG); Urine Protein NEG (NEG-TRACE)
[2021-10-27] MEDS: cefTRIAXone sodium 1 GM, Lidocaine HCl 1 % MPF 2.1 ML IM (22:37)
[2021-10-27 22:43] VITALS: BP 174/97; TEMP 37
[2021-10-27 22:47] LABS: Bacteria Urine TRACE /LPF; Squamous Epithelial Cell Urine TRACE /LPF; WBC Urine 0-2 /HPF (0-4)
== END 2021-10-27 22:45 | disposition home or self-care (01) ==
PROVIDERS: Emergency Provider Emergency Medicine; PCP Family Medicine
DX: N39.0 Urinary tract infection, site not specified (principal); L03.90 Cellulitis, unspecified; E11.9 Type 2 diabetes mellitus without complications; I48.0 Paroxysmal atrial fibrillation; I11.0 Hypertensive heart disease with heart failure; I50.9 Heart failure, unspecified; J44.9 Chronic obstructive pulmonary disease, unspecified; Z86.73 Personal history of transient ischemic attack (TIA), and cerebral infarction without residual deficits; Z96.0 Presence of urogenital implants
CPT/HCPCS: 81001; 82947; 87086; 96372; 99284; 99285; J0696

== ENCOUNTER 2021-11-02 19:18 | Inpatient (IN) | payer MEDICARE, MEDICAID, SELFPAY ==
--- NOTE | ~2021-11-02 | CT_ITS ---
EXAMINATION: CT ABDOMEN AND PELVIS WITHOUT CONTRAST CLINICAL INFORMATION: Suprapubic and bilateral flank pain COMPARISON: Previous CT of the abdomen and pelvis most recent July 2021 TECHNIQUE: Multidetector volumetric imaging was performed from the superior aspect of the liver through the pubic symphysis. Sagittal and coronal reformatted images were obtained on the technologist's workstation. This CT examination was performed using dose optimization techniques as appropriate, variously including the following: *Automated exposure control *Adjustment of mA and/or kV according to patient size (this includes techniques or standardized protocols for targeted exams where dose is matched to indication/reason for exam; i.e. extremities or head) *Use of iterative reconstruction technique DLP: 1092 mGy-cm FINDINGS: LUNG BASES: The visualized lung bases are clear. There is mitral annular calcification. LIVER, GALLBLADDER, AND BILIARY TREE: The liver is normal in size, shape, and attenuation. There is a 4 cm stable low-attenuation lesion in the right lobe of the liver behind the caudate lobe. This is stable from previous exams. No biliary ductal dilatation is present. The gallbladder is normal in size. There may be a layering dependent echogenic material in the gallbladder. This is similar to previous exam.. PANCREAS: Unremarkable. SPLEEN: Unremarkable. ADRENAL GLANDS: Unremarkable. KIDNEYS AND URETERS: Tiny 1 to 2 mm stone in the upper pole of the left kidney. Kidneys are otherwise unremarkable. BLADDER: There is a Molina catheter in the bladder. There is an small amount of fluid and air-fluid level in the bladder. This may related to Molina catheter placement. GASTROINTESTINAL TRACT: There is stool throughout the colon suggestive of constipation. The appendix is unremarkable. ABDOMINAL WALL: There is laxity of the abdominal wall bulge, greater on the right. There may be small inguinal hernias containing fat. LYMPH NODES: Normal. VASCULAR: There is evidence of atherosclerotic disease. No aneurysm is seen. PELVIC VISCERA: There is a stable 4.5 x 5.7 cm left adnexal mass. This has small calcifications and fat and may represent a dermoid. Uterus and right adnexa are unremarkable. OSSEOUS STRUCTURES: There is severe arthritis at the hip joints. There are degenerative changes of the spine. There is fusion at the L4-L5 disc space. CT/CT abdomen pelvis wo con IMPRESSION: Constipation. Small nonobstructing left renal stone. Molina catheter in the bladder. There is a small amount of fluid in the bladder and air. There may be related to Molina catheter placement. Differential would include infection. Question small gallstones. Stable 4 cm liver lesion. Stable 4.5 x 5.7 cm left ovarian lesion, question representing a dermoid. Fleischner guidelines were followed.
[2021-11-02 19:27] VITALS: BP 140/80; PULSE 68; O2SAT 97
[2021-11-02 19:28] VITALS: BP 145/71; PULSE 70; RESP 18; TEMP 37.2; O2SAT 95; BMI 43.2
--- NOTE | 2021-11-02 19:56 | ED_ITS ---
HPI - Abdominal Pain General Chief Complaint: Abdominal Pain Stated Complaint: BLADDER INFECTION. ABD PAIN Time Seen by Provider: 11/02/21 19:36 Source: patient and EMS Mode of arrival: EMS Limitations: no limitations History of Present Illness HPI narrative: Patient comes to the emergency room via ambulance complaining of suprapubic pain. Patient states that 2 days ago she went to [facility] to have her suprapubi c catheter changed, since then, patient has been having suprapubic pain and bilateral flank pain. Patient was seen here on October 27, diagnosed with a UTI, started on cefuroxime. Patient states she has been taking her antibiotics. Patient denies fever or chills. Patient states that she has been seeing small blood clots in the urine. Related Data Home Medications Medication Instructions Recorded Confirmed albuterol sulfate 90 mcg/actuation 2 puff INHALATION Q4-6H PRN 01/23/21 10/24/21 aerosol inhaler (Proventil HFA) apixaban 5 mg tablet (Eliquis) 5 mg PO BID 01/23/21 10/24/21 gabapentin 300 mg capsule 300 mg PO BID 01/23/21 10/24/21 insulin lispro 100 unit/mL See Protocol SUBCUT TIDAC 01/23/21 10/24/21 subcutaneous solution (Humalog U-100 Insulin) lisinopril 5 mg tablet 5 mg PO DAILY 01/23/21 10/24/21 simvastatin 40 mg tablet 40 mg PO BEDTIME 01/23/21 10/24/21 furosemide 20 mg tablet 20 mg PO DAILY 05/04/21 10/24/21 Lactobacillus rhamnosus GG 10 1 cap PO DAILY 10/24/21 10/24/21 billion cell capsule (Culturelle) aspirin 81 mg tablet,delayed 81 mg PO DAILY 10/24/21 10/24/21 release fluticasone propionate 100 1 puff PO BID 10/24/21 10/24/21 mcg/actuation blister powder for inhalation (Flovent Diskus) insulin glargine 100 unit/mL (3 64 unit SUBCUT DAILY 10/24/21 10/24/21 mL) subcutaneous pen (Lantus Solostar U-100 Insulin) metformin 850 mg tablet 1 tab PO DAILY 10/24/21 10/24/21 metoprolol tartrate 50 mg tablet 1 tab PO BID 10/24/21 10/24/21 Previous Rx's Medication Instructions Recorded amoxicillin 875 mg-potassium 1 tab PO Q12H #14 tab 10/26/21 clavulanate 125 mg tablet doxycycline hyclate 100 mg tablet 100 mg PO BID #14 tab 10/26/21 Bacillus coagulans 800 million 1 cell PO DAILY #30 tab 10/27/21 cell tablet (Digestive Advantage Probiotics-Prebiotic) cefuroxime axetil 500 mg tablet 500 mg PO BID #14 tab 10/27/21 Allergies Allergy/AdvReac Type Severity Reaction Status Date / Time silver sulfadiazine Allergy Unknown UNK Verified 07/27/21 14:29 [From TRINY] Review of Systems Review of Systems Constitutional : No Weight loss, No Fever, No Chills, No Night Sweats, No Fatigu e, No Malaise ENT/Mouth : No Hearing loss, No Ear Pain, No Nasal Congestion, No Sinus Pain, No Hoarseness, No sore throat, No Rhinorrhea, No Swallowing Difficulty Eyes: No Eye Pain, No Swelling, No Redness, No Foreign Body, No Discharge, No Vision Changes Cardiovascular : No Chest Pain, No SOB, No Dyspnea on Exertion, No Orthopnea, No Edema, No Palpitations Respiratory : No Cough, No Sputum, No Wheezing, No Smoke Exposure, No Dyspnea Gastrointestinal : No Nausea, No Vomiting, No Diarrhea, No Constipation, No abdominal Pain, No Hematochezia, No Melena Genitourinary : Complaining suprapubic discomfort, bilateral flank pain, brownish urine with small amount of blood clots. Musculoskeletal : No joint pain, No Myalgias, No Joint Swelling Skin : No Skin Lesions, No rash Neuro : No Weakness, No Numbness, No Paresthesias, No Loss of Consciousness, No Dizziness, No Headache Psych : No Anxiety/Panic, No Depression, No SI/HI/AH/VH, No Social Issues, Heme/Lymph: No Bruising, No Bleeding,No Lymphadenopathy Endocrine : No Polyuria, No Polydipsia, No Temperature Intolerance [facility] Past Medical History Medical History Aortic stenosis Bacteriuria Chronic indwelling Molina catheter Chronic UTI Chronic UTI Congestive heart failure COPD (chronic obstructive pulmonary disease) Diabetes Diarrhea Glaucoma H/O: CVA (cerebrovascular accident) Hypertension Non-rheumatic aortic stenosis Obesity Osteoarthritis Paroxysmal atrial fibrillation Severe sepsis Surgical History H/O adenoidectomy H/O enucleation of left eyeball History of tonsillectomy Family History Family History Father No problems noted. Mother No problems noted. Social History Social History Household Members: None Housing: Apartment Do you presently have visiting nurse or other home services: Yes Unable to assess alcohol history related to: Unknown Alcohol intake: never Patient Tobacco Use Status: Never used Tobacco Second Hand Smoke Exposure: No Advance Directives: Yes Advance Directives on File: Yes Advance Directives Date on File: 07/09/20 service: No Current occupational status: disabled Physical Exam ED Vital Signs: Vital Signs - 24 hr 11/02/21 19:28 Temperature 98.9 F Pulse Rate 70 Respiratory Rate 18 Blood Pressure 145/71 H Pulse Oximetry 95 BMI result Body Mass Index 43.2 Course Course Course Narrative: Patient's previous urine culture which was obtained on October 27, was negative for growth. Labs are being repeated, CT scan pending. Patient does not have any fever or chills, vital stable. Sepsis not suspected at this time. 21:38, patient is urinalysis is still positive, however improved from the previous visit. Patient was given levofloxacin. Due to patient's symptoms, likely having pyelonephritis. White blood cell count, lactic acid, blood pressure and temperature within normal limits. At this time sepsis is not suspected. CT scan of abdomen pelvis pending. Patient has an elevated creatinine. Baseline creatinine is 0.6, today's 2.73. Patient has not had any vomiting or diarrhea, no change in medications, other than cefuroxime given on October 27 MDM - Abdominal Pain Lab Data Result diagrams: 11/02/21 20:15 11/02/21 20:15 Labs: Lab Results 11/02/21 11/02/21 11/02/21 Range/Units 20:15 20:15 20:15 WBC 7.5 (4.8-10.8) X10*3/uL RBC 4.95 (4.20-5.50) X10*6/uL Hgb 13.5 (12.0-16.0) g/dl Hct 43.0 (37.0-47.0) % MCV 86.9 (80.0-98.0) fL MCH 27.3 (27.0-33.0) pg MCHC 31.4 (31.0-35.0) g/dl RDW 15.1 (11.0-16.0) % Plt Count 190 (160-400) X10*3/uL MPV 11.2 (9.4-12.3) fL Immature Gran % (Auto) 0.1 (0.0-0.4) % Neut % (Auto) 62.0 (45-73) % Lymph % (Auto) 24.5 (20-40) % [place] % (Auto) 9.5 (2-11) % Eos % (Auto) 3.6 (0-4) % Baso % (Auto) 0.3 (0-2) % Lymph # (Auto) 1.8 (1.2-4.9) X10*3/uL [place] # (Auto) 0.7 (0.1-1.2) X10*3/uL Eos # (Auto) 0.3 (0.0-0.4) X10*3/uL Baso # (Auto) 0.0 (0.0-0.2) X10*3/uL Abs Immat Gran (auto) 0.01 (0.00-0.03) X10*3/uL Absolute Neuts (auto) 4.6 (2.0-8.3) x10*3/uL Absolute Nucleated RBC 0.000 (0.0-0.012) X10*3/uL Nucleated RBC % (auto) 0.0 (0.0-0.2) /100WBC Sodium 136 (135-145) mmol/L Potassium 4.4 (3.3-5.1) mmol/L Chloride 94 L (96-108) mmol/L Carbon Dioxide 35 H (22-29) mmol/L Anion Gap 11 L (12-20) BUN 12 (9-16) mg/dL Creatinine 2.73 H (0.5-1.4) mg/dL Estim Creat Clear Calc 25.5 Estimated GFR 17 Random Glucose 183 H (60-115) mg/dL Lactic Acid 1.5 (0.5-2.0) mmol/L Calcium 9.3 (8.4-10.2) mg/dL Total Bilirubin 0.4 (0.0-1.0) mg/dL Direct Bilirubin 0.2 (0.0-0.5) mg/dL AST 16 (5-31) U/L ALT 15 (0-31) U/L Alkaline Phosphatase 104 (39-117) U/L Total Protein 6.9 (6.5-8.0) g/dL Albumin 3.7 (3.5-5.0) g/dL Imaging Data CT scan - abdomen: Radiologist's impression: FINDINGS: LUNG BASES: The visualized lung bases are clear. There is mitral annular calcification.? LIVER, GALLBLADDER, AND BILIARY TREE: The liver is normal in size, shape, and attenuation. There is a 4 cm stable low-attenuation lesion in the right lobe of the liver behind the caudate lobe. This is stable from previous exams. No? biliary ductal dilatation is present. The gallbladder is normal in size. There may be a layering dependent echogenic material in the gallbladder. This is similar to previous exam..? PANCREAS: Unremarkable.? SPLEEN: Unremarkable.? ADRENAL GLANDS: Unremarkable.? KIDNEYS AND URETERS: Tiny 1 to 2 mm stone in the upper pole of the left kidney. Kidneys are otherwise unremarkable. BLADDER: There is a Molina catheter in the bladder. There is an small amount of fluid and air-fluid level in the bladder. This may related to Molina catheter placement.? GASTROINTESTINAL TRACT: There is stool throughout the colon suggestive of constipation. The appendix is unremarkable.? ABDOMINAL WALL: There is laxity of the abdominal wall bulge, greater on the right. There may be small inguinal hernias containing fat. LYMPH NODES: Normal. VASCULAR: There is evidence of atherosclerotic disease. No aneurysm is seen. PELVIC VISCERA: There is a stable 4.5 x 5.7 cm left adnexal mass. This has small calcifications and fat and may represent a dermoid. Uterus and right adnexa are unremarkable. OSSEOUS STRUCTURES: There is severe arthritis at the hip joints. There are degenerative changes of the spine. There is fusion at the L4-L5 disc space.? CT/CT abdomen pelvis wo con IMPRESSION: Constipation. Small nonobstructing left renal stone. Molina catheter in the bladder. There is a small amount of fluid in the bladder and air. There may be related to Molina catheter placement. Differential would include infection. Question small gallstones. Stable 4 cm liver lesion. Stable 4.5 x 5.7 cm left ovarian lesion, question representing a dermoid. ? Fleischner guidelines were followed. Discharge Plan Discharge Clinical Impression: Acute kidney injury Patient Disposition: Admitted As Inpatient Prescriptions: No Action simvastatin 40 mg tablet 40 mg PO BEDTIME 0RF gabapentin 300 mg capsule 300 mg PO BID 0RF lisinopril 5 mg tablet 5 mg PO DAILY 0RF insulin lispro [Humalog U-100 Insulin] 100 unit/mL solution See Protocol sliding scale dose subcut TIDAC 0RF Protocol: Insulin Correction Scale Less than or equal to 110 ---- Give (units): 0 111 to 150 Give (units): 0 151 to 200 Give (units): 2 201 to 250 Give (units): 4 251 to 300 Give (units): 6 301 to 350 Give (units): 8 Greater than 350 Give (units): 10 Call MD if Blood Glucose > : 350 albuterol sulfate [Proventil HFA] 90 mcg/actuation HFA aerosol inhaler 2 puff inhalation Q4-6H PRN (Reason: Wheezing) 0RF Eliquis 5 mg tablet 5 mg PO BID 0RF furosemide 20 mg tablet 20 mg PO DAILY 0RF cefuroxime axetil 500 mg tablet 500 mg PO BID Qty: 14 0RF Digestive Advantage Probio-Pre 800 million cell tablet 1 cell PO DAILY Qty: 30 0RF metformin 850 mg tablet 1 tab PO DAILY 0RF Flovent Diskus 100 mcg/actuation blister with device 1 puff PO BID 0RF Lantus Solostar U-100 Insulin 100 unit/mL (3 mL) insulin pen 64 unit subcut DAILY 0RF aspirin 81 mg Tablet,Delayed Release (Dr/Ec) 81 mg PO DAILY 0RF metoprolol tartrate 50 mg tablet 1 tab PO BID 0RF Culturelle 10 billion cell Capsule 1 cap PO DAILY 0RF amoxicillin-pot clavulanate 875-125 mg tablet 1 tab PO Q12H Qty: 14 0RF doxycycline hyclate 100 mg tablet 100 mg PO BID Qty: 14 0RF
[2021-11-02 20:23] LABS: Basophils Percent Auto 0.3 % (0-2); Eosinophils Absolute Auto 0.3 X10*3/uL (0.0-0.4); Eosinophils Percent Auto 3.6 % (0-4); Hemoglobin 13.5 g/dl (12.0-16.0); Imm Gran Abs Auto 0.01 X10*3/uL (0.00-0.03); Imm Gran Pct Auto 0.1 % (0.0-0.4); Lymphocytes Absolute Auto 1.8 X10*3/uL (1.2-4.9); Lymphocytes Percent Auto 24.5 % (20-40); MANUAL DIFF FLAG NO; Mean Corpuscular HGB Conc 31.4 g/dl (31.0-35.0); Mean Corpuscular Hemoglobin 27.3 pg (27.0-33.0); Mean Corpuscular Volume 86.9 fL (80.0-98.0); Mean Platelet Volume 11.2 fL (9.4-12.3); Monocytes Absolute Auto 0.7 X10*3/uL (0.1-1.2); Monocytes Percent Auto 9.5 % (2-11); Neutrophils Absolute Auto 4.6 x10*3/uL (2.0-8.3); Platelet Count 190 X10*3/uL (160-400); Red Blood Count 4.95 X10*6/uL (4.20-5.50); Red Cell Distribution Width 15.1 % (11.0-16.0); White Blood Count 7.5 X10*3/uL (4.8-10.8)
[2021-11-02 20:33] LABS: Lactic Acid 1.5 mmol/L (0.5-2.0)
[2021-11-02 20:57] LABS: Alanine Aminotransferase 15 U/L (0-31); Albumin Level 3.7 g/dL (3.5-5.0); Alkaline Phosphatase 104 U/L (39-117); Anion Gap 11 (12-20); Aspartate Amino Transferase 16 U/L (5-31); Bilirubin Direct 0.2 mg/dL (0.0-0.5); Bilirubin Total 0.4 mg/dL (0.0-1.0); Blood Urea Nitrogen 12 mg/dL (9-16); Calcium 9.3 mg/dL (8.4-10.2); Carbon Dioxide 35 mmol/L (22-29); Chloride 94 mmol/L (96-108); Creatinine Clr Calc Pharmacy 25.5; Estimated Glomerular Filt Rate 17; Glucose Random 183 mg/dL (60-115); Potassium 4.4 mmol/L (3.3-5.1); Sodium 136 mmol/L (135-145); Total Protein 6.9 g/dL (6.5-8.0)
[2021-11-02] MEDS: 0.9 % Sodium Chloride 1,000 ML 999 ML IVCONT (21:47)
[2021-11-02] MEDS: levoFLOXacin/D5W 500 MG/100 ML PIGGYBACK 100 MG IV (21:47)
--- NOTE | 2021-11-02 22:19 | P.HPHOSP_ITS ---
History of Present Illness Date of Service: 11/02/21 Chief Complaint: Flank pain 71-year-old female with a past medical history of hypertension, hyperlipidemia, diabetes, diastolic CHF, history of CVA, chronic indwelling Molina, recurrent UTI, glaucoma, osteoarthritis, obesity, history of cellulitis, history of non rheumatic aortic stenosis; presented to the hospital today with a chief complaint of flank pain. Patient initially presented to the hospital about 4 days ago to the ER with a chief complaint of blood clots in the urine back; urinalysis was slightly abnormal, patient was empirically given antibiotics. S sent home; presented back today with a chief complaint of flank pain; denies any nausea vomiting or diarrhea. Also reports blood in the Molina bag; denies any fever chills cough. Patient denies any chest pain palpitations lightheadedness or dizziness. Review of all other systems is negative except mentioned above ER course: Per ER team patient noted to have pinkish urine in the bag; urinalysis pending; empirically given Levaquin; CT scan showed no evidence of kidney stones; lab s howed elevated creatinine up to 2.7; admitted to the hospital for further management [facility] Medical History Aortic stenosis Bacteriuria Chronic indwelling Molina catheter Chronic UTI Chronic UTI Congestive heart failure COPD (chronic obstructive pulmonary disease) Diabetes Diarrhea Glaucoma H/O: CVA (cerebrovascular accident) Hypertension Non-rheumatic aortic stenosis Obesity Osteoarthritis Paroxysmal atrial fibrillation Severe sepsis Family History Father No problems noted. Mother No problems noted. Surgical History H/O adenoidectomy H/O enucleation of left eyeball History of tonsillectomy Social History Household Members: None Housing: Apartment Do you presently have visiting nurse or other home services: Yes Unable to assess alcohol history related to: Unknown Alcohol intake: never Patient Tobacco Use Status: Never used Tobacco Second Hand Smoke Exposure: No Advance Directives: Yes Advance Directives on File: Yes Advance Directives Date on File: 07/09/20 service: No Current occupational status: disabled Meds Allergies Allergy/AdvReac Type Severity Reaction Status Date / Time silver sulfadiazine Allergy Unknown UNK Verified 07/27/21 14:29 [From TRINY] Active Medications: Current Medications Sodium Chloride (Ns) 1,000 mls @ 999 mls/hr IVCONT .Q1H1M ONE Stop: 11/02/21 22:34 Last Admin: 11/02/21 21:47 Dose: 999 mls/hr Documented by: Levofloxacin (Levaquin) 500 mg in 100 mls @ 100 mls/hr IV ONCE ONE Stop: 11/02/21 22:33 Last Admin: 11/02/21 21:47 Dose: 100 mls/hr Documented by: Pharmacy Consult (Consult Rx Perform Med Rec) 1 each MISCELLANE ONCE PRN PRN Reason: Consult order Pharmacy Consult (Consult Rx Perform Med Rec) 1 each MISCELLANE ONCE STA Stop: 11/02/21 22:17 Home Medications Medication Instructions Recorded Confirmed Last Taken Type albuterol sulfate 90 mcg/actuation 2 puff INHALATION Q4-6H PRN 01/23/21 10/24/21 Unknown History aerosol inhaler (Proventil HFA) apixaban 5 mg tablet (Eliquis) 5 mg PO BID 01/23/21 10/24/21 10/24/21 History gabapentin 300 mg capsule 300 mg PO BID 01/23/21 10/24/21 10/24/21 History insulin lispro 100 unit/mL See Protocol SUBCUT TIDAC 01/23/21 10/24/21 10/24/21 History subcutaneous solution (Humalog U-100 Insulin) lisinopril 5 mg tablet 5 mg PO DAILY 01/23/21 10/24/21 10/24/21 History simvastatin 40 mg tablet 40 mg PO BEDTIME 01/23/21 10/24/21 10/23/21 History furosemide 20 mg tablet 20 mg PO DAILY 05/04/21 10/24/21 10/24/21 History Lactobacillus rhamnosus GG 10 1 cap PO DAILY 10/24/21 10/24/21 Unknown History billion cell capsule (Culturelle) aspirin 81 mg tablet,delayed 81 mg PO DAILY 10/24/21 10/24/21 10/24/21 History release fluticasone propionate 100 1 puff PO BID 10/24/21 10/24/21 10/24/21 History mcg/actuation blister powder for inhalation (Flovent Diskus) insulin glargine 100 unit/mL (3 64 unit SUBCUT DAILY 10/24/21 10/24/21 10/24/21 History mL) subcutaneous pen (Lantus Solostar U-100 Insulin) metformin 850 mg tablet 1 tab PO DAILY 10/24/21 10/24/21 10/24/21 History metoprolol tartrate 50 mg tablet 1 tab PO BID 10/24/21 10/24/21 10/24/21 History Physical Exam Vital Signs and Narrative: Vital Signs: Last Vital Signs Temp 98.9 F 11/02/21 19:28 Pulse 70 11/02/21 19:28 Resp 18 11/02/21 19:28 BP 145/71 H 11/02/21 19:28 Pulse Ox 95 11/02/21 19:28 BMI result Body Mass Index 43.2 Gen: Appears be in no acute distress HEENT: NCAT, Moist mucosa. Pulmonary: Vesicular breath sounds, fair air entry CVS: Normal S1-S2 Abdomen: BS+, Soft, Nontender Extremities: Warm well perfused Neuro: Alert and awake. Results Labs CBC and Chem 7: 11/02/21 20:15 11/02/21 20:15 Labs: Laboratory Results - last 24 hr 11/02/21 11/02/21 11/02/21 20:15 20:15 20:15 MCV 86.9 MCH 27.3 MCHC 31.4 RDW 15.1 Plt Count 190 MPV 11.2 Immature Gran % (Auto) 0.1 Neut % (Auto) 62.0 Lymph % (Auto) 24.5 [place] % (Auto) 9.5 Eos % (Auto) 3.6 Baso % (Auto) 0.3 Lymph # (Auto) 1.8 [place] # (Auto) 0.7 Eos # (Auto) 0.3 Baso # (Auto) 0.0 Abs Immat Gran (auto) 0.01 Absolute Neuts (auto) 4.6 Absolute Nucleated RBC 0.000 Nucleated RBC % (auto) 0.0 Anion Gap 11 L Estim Creat Clear Calc 25.5 Estimated GFR 17 Random Glucose 183 H Lactic Acid 1.5 Calcium 9.3 Total Bilirubin 0.4 Direct Bilirubin 0.2 AST 16 ALT 15 Alkaline Phosphatase 104 Total Protein 6.9 Albumin 3.7 Imaging Radiologist's Impressions: Impressions Abdomen/Pelvis CT 11/02/21 21:20 IMPRESSION: Constipation. Small nonobstructing left renal stone. Molina catheter in the bladder. There is a small amount of fluid in the bladder and air. There may be related to Molina catheter placement. Differential would include infection. Question small gallstones. Stable 4 cm liver lesion. Stable 4.5 x 5.7 cm left ovarian lesion, question representing a dermoid. Fleischner guidelines were followed. Assessment and Plan (1) Acute kidney injury: Status: Acute (2) UTI (urinary tract infection): Status: Acute (3) Chronic heart failure with preserved ejection fraction (HFpEF): Status: Acute (4) Paroxysmal atrial fibrillation: Status: Acute (5) Diabetes: Status: Acute Plan 71-year-old female with a past medical history of hypertension, hyperlipidemia, diabetes, diastolic CHF, history of CVA, chronic indwelling Molina, recurrent UTI, glaucoma, osteoarthritis, obesity, history of cellulitis, history of nonrheumatic aortic stenosis; presented to the hospital today with a chief complaint of flank pain. SNEHA: Likely prerenal. Hold home Lasix, lisinopril Avoid nephrotoxins. Gentle IV fluids. Patient baseline creatinine 0.6. Creatinine on presentation was 2.7. Nephrology consult Flank pain:? Pyelonephritis. CT abdomen showed nonobstructing renal stone; Patient empirically covered with Levaquin. Patient was also on ceftriaxone as outpatient prior to coming to the hospital. Question : Position versus UTI. Patient has no systemic symptoms. Will consult ID for further recommendations. Hematuria: Patient reported clots in the bag. Currently has pinkish urine. Question related to stone versus infection Versus trauma from the Molina. Urology consult for further recommendations. Serial H&H. Hold home Eliquis until cleared by urology. Liver lesion: Stable as per the CT scan. GI follow-up as outpatient Ovarian lesion: Stable compared to old CT scan. [employer] follow-up as outpatient History of diastolic CHF: Patient on Lasix at home. Will hold home Lasix for now given SNEHA. Monitor for signs of fluid overload. (Off note: Please confirm Lasix dose with the patient's PCP/Cardiology in the morning.) History of hypertension/hyperlipidemia: Continue home metoprolol/statin History of diabetes: Insulin sliding scale. Hold metformin History of paroxysmal AFib: Eliquis on hold until cleared by Urology DVT prophylaxis: SCD boots Code status: Full code Quality Stroke Does the patient have a stroke diagnosis?: No VTE Prior VTE?: No VTE Risk Level:: Medical - moderate - high VTE Device Contraindication: N/A - Device Ordered VTE Drug Contraindication: Treatment Not Indicated
[2021-11-02 22:20] LABS: Appearance Urine CLEAR; Color Urine YELLOW; Glucose Urine UA NEG (NEG); Leukocyte Esterase Urine 3+ (NEG); Nitrite Urine NEG (NEG); Specific Gravity - Urine <= 1.005 (1.005-1.025); UACC Culture Trigger YES; Urine Blood 2+ (NEG); Urine Ketones NEG (NEG); Urine Protein NEG (NEG-TRACE)
--- NOTE | 2021-11-02 22:33 | PHA.MEDREC ---
Pharmacy Consult ? Medication Reconciliation Pharmacy has completed the medication reconciliation. pt states that she currently takes a total of 80 mg of lasix per day, last fill history was in april
[2021-11-02 22:38] LABS: RBC Urine 0-2 /HPF (0)
[2021-11-02 22:39] LABS: Squamous Epithelial Cell Urine TRACE /LPF
[2021-11-02 22:41] LABS: Bacteria Urine 1+ /LPF
[2021-11-03] MEDS: 0.9 % Sodium Chloride 1,000 ML 50 ML IVCONT (00:01)
[2021-11-03 00:19] LABS: Glucose, Whole Blood 128 mg/dL (60-115)
[2021-11-03 05:01] VITALS: BP 154/61; PULSE 74; RESP 20; TEMP 37.1; O2SAT 93
[2021-11-03 05:57] LABS: COVID-19 Test Negative (Negative)
[2021-11-03 06:22] LABS: MANUAL DIFF FLAG NO
[2021-11-03 06:35] LABS: Eosinophils Absolute Auto 0.2 X10*3/uL (0.0-0.4); Eosinophils Percent Auto 3.6 % (0-4); Hematocrit 39.4 % (37.0-47.0); Hemoglobin 12.4 g/dl (12.0-16.0); Imm Gran Abs Auto 0.02 X10*3/uL (0.00-0.03); Imm Gran Pct Auto 0.3 % (0.0-0.4); Lymphocytes Absolute Auto 1.7 X10*3/uL (1.2-4.9); Lymphocytes Percent Auto 26.3 % (20-40); Mean Corpuscular HGB Conc 31.5 g/dl (31.0-35.0); Mean Corpuscular Hemoglobin 27.6 pg (27.0-33.0); Mean Corpuscular Volume 87.8 fL (80.0-98.0); Mean Platelet Volume 11.5 fL (9.4-12.3); Monocytes Absolute Auto 0.5 X10*3/uL (0.1-1.2); Monocytes Percent Auto 8.5 % (2-11); Neutrophils Absolute Auto 3.9 x10*3/uL (2.0-8.3); Neutrophils Percent Auto 61.3 % (45-73); Platelet Count 177 X10*3/uL (160-400); Red Blood Count 4.49 X10*6/uL (4.20-5.50); Red Cell Distribution Width 15.1 % (11.0-16.0); White Blood Count 6.4 X10*3/uL (4.8-10.8)
[2021-11-03 06:47] LABS: Anion Gap 11 (12-20); Blood Urea Nitrogen 13 mg/dL (9-16); Calcium 8.8 mg/dL (8.4-10.2); Carbon Dioxide 34 mmol/L (22-29); Chloride 96 mmol/L (96-108); Creatinine Clr Calc Pharmacy 76.5; Estimated Glomerular Filt Rate > 60; Glucose Random 205 mg/dL (60-115); Potassium 4.1 mmol/L (3.3-5.1); Sodium 137 mmol/L (135-145)
[2021-11-03 07:01] VITALS: BP 135/57; PULSE 68; RESP 12; TEMP 36.6; O2SAT 94
[2021-11-03] MEDS: Insulin Lispro 100 UNIT/ML 3 ML VIAL SUBCUT ×3 (07:29→19:28)
--- NOTE | 2021-11-03 08:32 | PC.NURSE ---
Humalog 4 units administered per sliding scale for POC 204-patient given snack with insulin pudding, tuna fish sandwich and diet wil poole.
[2021-11-03 08:51] VITALS: BP 117/48; PULSE 72; RESP 25; TEMP 36.7; O2SAT 93
--- NOTE | 2021-11-03 09:00 | PC.NURSE ---
Dr. Cam at bedside, aware of plan of care.
--- NOTE | 2021-11-03 09:36 | PC.NURSE ---
Skin assessment completed-no open wounds noted-skin to b/l buttocks fragile, flaky-skin care provided-barrier cream applied-pt reports hx of fungal infection when taking antibiotics-no s/s of active fungal infection noted.
--- NOTE | 2021-11-03 11:02 | HO.PM.IMPN ---
Subjective Subjective Date of Service: 11/03/21 Interval History: seen and examined this AM reprots feeling better compared to yesterday reports she came to the ED for blood in her rai denies any fevers or chills denies any dysuria Review of Systems negative except HPI Physical Exam Vital Signs: Vital Signs: Last Vital Signs Temp 98.0 F 11/03/21 08:51 Pulse 72 11/03/21 08:51 Resp 25 H 11/03/21 08:51 BP 117/48 L 11/03/21 08:51 Pulse Ox 93 11/03/21 08:51 BMI result Body Mass Index 43.2 Const: Other: General - no acute distress, appears comfortable Cardiovascular - regular rate and rhythm, S1-S2 Lungs - normal respiratory effort, clear to auscultation bilaterally, no wheezing Abdomen - soft, nontender, no rebound or guarding - no cva tenderness, rai clear Extremities - no edema bilaterally Neuro - awake and alert, no focal deficits Objective Data Active Medications Acetaminophen (Acetaminophen 325 Mg Tablet) 650 mg PO Q6H PRN PRN Reason: Pain, Mild (Pain Scale 1-3) Dextrose (Dextrose 50 % 25 Gm/50 Ml Syringe) 25 gm IVPUSH Q15M PRN; Protocol PRN Reason: per Hypoglycemia Standing Ord. Glucose (Glucose Gel 15 Gm Gel..Gram.) 15 gm PO Q15M PRN; Protocol PRN Reason: per Hypoglycemia Standing Ord. Insulin Human Lispro (Insulin Lispro 100 Unit/Ml 3 Ml Vial) [facility]; Protocol Last Admin: 11/03/21 07:29 Dose: 4 unit Documented by: SRINATH Melatonin (Melatonin 3 Mg Tablet) 6 mg PO BEDTIME PRN PRN Reason: Insomnia Pharmacy Consult (Consult Rx Perform Med Rec) 1 each MISCELLANE ONCE PRN PRN Reason: Consult order Senna (Sennosides 8.6 Mg Tablet) 17.2 mg PO BEDTIME PRN PRN Reason: Constipation Sodium Chloride (0.9 % Sodium Chloride Flush 3 Ml Syringe) 3 ml IVFLUSH [facility] Last Admin: 11/03/21 07:31 Dose: Not Given Documented by: SRINATH Non-Admin Reason: IV Running Labs CBC & Chem 7: 11/03/21 06:18 04/27/22 06:18 Labs: Laboratory Results - last 24 hr 11/02/21 11/02/21 11/02/21 20:15 20:15 20:15 MCV 86.9 MCH 27.3 MCHC 31.4 RDW 15.1 Plt Count 190 MPV 11.2 Immature Gran % (Auto) 0.1 Neut % (Auto) 62.0 Lymph % (Auto) 24.5 [place] % (Auto) 9.5 Eos % (Auto) 3.6 Baso % (Auto) 0.3 Lymph # (Auto) 1.8 [place] # (Auto) 0.7 Eos # (Auto) 0.3 Baso # (Auto) 0.0 Abs Immat Gran (auto) 0.01 Absolute Neuts (auto) 4.6 Absolute Nucleated RBC 0.000 Nucleated RBC % (auto) 0.0 Anion Gap 11 L Estim Creat Clear Calc 25.5 Estimated GFR 17 POC Glucose Random Glucose 183 H Lactic Acid 1.5 Calcium 9.3 Total Bilirubin 0.4 Direct Bilirubin 0.2 AST 16 ALT 15 Alkaline Phosphatase 104 Total Protein 6.9 Albumin 3.7 Urine Color Urine Appearance Urine pH Ur Specific [place] Urine Protein Urine Glucose (UA) Urine Ketones Urine Blood Urine Nitrite Ur Leukocyte Esterase Urine RBC Urine WBC Ur Squamous Epith Cells Ur Renal Epithelial Cell Urine Bacteria COVID-19 (ERIKA) COVID-19 Clin Com 11/02/21 11/03/21 11/03/21 21:47 00:15 05:37 MCV MCH MCHC RDW Plt Count MPV Immature Gran % (Auto) Neut % (Auto) Lymph % (Auto) [place] % (Auto) Eos % (Auto) Baso % (Auto) Lymph # (Auto) [place] # (Auto) Eos # (Auto) Baso # (Auto) Abs Immat Gran (auto) Absolute Neuts (auto) Absolute Nucleated RBC Nucleated RBC % (auto) Anion Gap Estim Creat Clear Calc Estimated GFR POC Glucose 128 H Random Glucose Lactic Acid Calcium Total Bilirubin Direct Bilirubin AST ALT Alkaline Phosphatase Total Protein Albumin Urine Color YELLOW Urine Appearance CLEAR Urine pH 6.0 Ur Specific [place] <= 1.005 Urine Protein NEG Urine Glucose (UA) NEG Urine Ketones NEG Urine Blood 2+ H Urine Nitrite NEG Ur Leukocyte Esterase 3+ H Urine RBC 0-2 Urine WBC 1-4 Ur Squamous Epith Cells TRACE Ur Renal Epithelial Cell Not Reportable Urine Bacteria 1+ COVID-19 (ERIKA) Negative COVID-19 Clin Com See Note 11/03/21 11/03/21 06:18 06:18 MCV 87.8 MCH 27.6 MCHC 31.5 RDW 15.1 Plt Count 177 MPV 11.5 Immature Gran % (Auto) 0.3 Neut % (Auto) 61.3 Lymph % (Auto) 26.3 [place] % (Auto) 8.5 Eos % (Auto) 3.6 Baso % (Auto) 0.0 Lymph # (Auto) 1.7 [place] # (Auto) 0.5 Eos # (Auto) 0.2 Baso # (Auto) 0.0 Abs Immat Gran (auto) 0.02 Absolute Neuts (auto) 3.9 Absolute Nucleated RBC 0.000 Nucleated RBC % (auto) 0.0 Anion Gap 11 L Estim Creat Clear Calc 76.5 Estimated GFR > 60 POC Glucose Random Glucose 205 H Lactic Acid Calcium 8.8 Total Bilirubin Direct Bilirubin AST ALT Alkaline Phosphatase Total Protein Albumin Urine Color Urine Appearance Urine pH Ur Specific [place] Urine Protein Urine Glucose (UA) Urine Ketones Urine Blood Urine Nitrite Ur Leukocyte Esterase Urine RBC Urine WBC Ur Squamous Epith Cells Ur Renal Epithelial Cell Urine Bacteria COVID-19 (ERIKA) COVID-19 Clin Com Assessment and Plan (1) Acute kidney injury: Status: Acute Plan This is a 71 yo F with a chronic rai and recurrent UTI who presents to the ED with reported hematuria. She is found to have SNEHA. 1. SNEHA likely pre-renal hold herve + diuretics SCr improving, d/c IVF and encourage oral (has a history of CHF) I/O 2. Reported hematuria appears self resolved does have a small kidney stone -- non-obstructing hold Eliquis + asa - f/u urology recs 3. Question UTI hx of prior UTI (ESBL previously) suspected in the ED / at time of admission; however her UA is actually improved from last one; she does not report fevers, abdominal pain, dysuria d/c levaquin and observe 4. PAF continue metorpolol hold eliquis 5. DM basal+bolus POC QIDAC DM diet 6. Chronic HFpEF hold diuretics and re-eval tomorrow Full Code DVT pptx - Eliquis once cleared by urology Reason for continued hospitalization: treatment of SNEHA and evaluation of hematuria. Quality Stroke Does the patient have a stroke diagnosis?: No VTE Prior VTE?: No VTE Risk Level:: Medical - moderate - high VTE Device Contraindication: N/A - Device Ordered VTE Drug Contraindication: Treatment Not Indicated
[2021-11-03 12:25] VITALS: BP 149/66; PULSE 58; RESP 18; O2SAT 95
--- NOTE | 2021-11-03 12:30 | P.CDIC_ITS ---
CDI Concurrent Query Documentation Clarification: PHYSICIAN'S DOCUMENTATION REQUEST Date of Query: 11/03/21 1231 Patient Name: Aleah Connor Admit Date: 11/02/21 Dear Doctor, A review of the medical record indicates additional documentation may be needed. Please review below and update the documentation accordingly. Risk Factors/Clinical Indicators/Treatments Body Mass Index: 43.2 5' 6 in height. H/O Extreme obesity If possible, please provide an associated diagnosis related to the abnormal BMI, such as: For a BMI >= 40: * Overweight * Obesity * Due to excess calories * Drug induced * Due to other cause * Severe or Morbid Obesity * With alveolar hypoventilation * Without alveolar hypoventilation Or: * BMI is not significant * Other (please specify) * Unable to determine Use of terms such as suspected, likely, concern for, or probable (associated with a specific diagnosis that is being evaluated, monitored, or treated as if it exists) are acceptable and can be coded in the inpatient setting, when documented at the time of discharge. Thank you, Fariha Ward [facility], CDIS Extension: [phone] Please use your independent medical judgment in providing your response. THIS QUERY IS PART OF THE PERMANENT MEDICAL RECORD Provider Response: Morbid Obesity Other Diagnosis: morbid obesity
--- NOTE | 2021-11-03 12:30 | MHC.CDI.CONC ---
CDI Concurrent Query Documentation Clarification: PHYSICIAN'S DOCUMENTATION REQUEST Date of Query: 11/03/21 1231 Patient Name: Aleah Connor Admit Date: 11/02/21 Dear Doctor, A review of the medical record indicates additional documentation may be needed. Please review below and update the documentation accordingly. Risk Factors/Clinical Indicators/Treatments Body Mass Index: 43.2 5' 6 in height. H/O Extreme obesity If possible, please provide an associated diagnosis related to the abnormal BMI, such as: For a BMI >= 40: Overweight Obesity Due to excess calories Drug induced Due to other cause Severe or Morbid Obesity With alveolar hypoventilation Without alveolar hypoventilation Or: BMI is not significant Other (please specify) Unable to determine Use of terms such as suspected, likely, concern for, or probable (associated with a specific diagnosis that is being evaluated, monitored, or treated as if it exists) are acceptable and can be coded in the inpatient setting, when documented at the time of discharge. Thank you, Fariha Ward [facility], CDIS Extension: [phone] Please use your independent medical judgment in providing your response. THIS QUERY IS PART OF THE PERMANENT MEDICAL RECORD Provider Response: Morbid Obesity Other Diagnosis: morbid obesity
[2021-11-03] MEDS: Metoprolol Tartrate 50 MG TABLET PO ×2 (14:20→21:45)
[2021-11-03] MEDS: Insulin Glargine,Hum.rec.anlog 100 UNIT/ML 10 ML VIAL 40 UNIT SUBCUT (14:21)
--- NOTE | 2021-11-03 14:26 | PC.NURSE ---
pt medicated per provider order - lunch arrived late to ED overflow.
--- NOTE | 2021-11-03 14:43 | MHC.CM.PN ---
Attempted to meet with patient in regards to discharge planning. Nursing care currently being provided. Attempted to speak with patient's HCP, Vesta via telephone at [phone]. Left message requesting return telephone call and explaining IMM. IMM left bedside. Case management assessment completed using medical record. Patient lives alone, uses a walker for mobility, is active with [employer] and has [employer] hours. PCP is Gustavo Hamm. Copy of HCP verified to be on file. Patient received J&J vaccine on 10/12/20. Anticipate patient will return home with resumption of services via chair van. Continue to monitor for d/c needs.
[2021-11-03] MEDS: Gabapentin 300 MG CAPSULE PO ×2 (15:28→21:45)
--- NOTE | 2021-11-03 15:29 | PC.NURSE ---
AM gabapentin not given, pt c/o tingling in legs, medicated per provider order.
[2021-11-03] MEDS: 0.9 % Sodium Chloride Flush 3 ML SYRINGE IVFLUSH ×2 (15:55→21:45)
--- NOTE | 2021-11-03 16:31 | W.PM.IDCN ---
History of Present Illness Data of Consult Service Date: 11/03/21 Requesting physician: Jin Cam Primary Care Provider: Unknown Physician HPI Reason for consult: hematuria,suprapubic pain She presents with suprapubic pain and hematuria for two days. She had chronic Molina changed last month. She has no fever or chills. She has most recent urine culture negative. She has small amount bacteria urinalysis Review of Systems Review of Systems: Yes all other systems are reviewed and are negative PMFSH Past Medical History Medical History Aortic stenosis Bacteriuria Chronic indwelling Molina catheter Chronic UTI Chronic UTI Congestive heart failure COPD (chronic obstructive pulmonary disease) Diabetes Diarrhea Glaucoma H/O: CVA (cerebrovascular accident) Hypertension Non-rheumatic aortic stenosis Obesity Osteoarthritis Paroxysmal atrial fibrillation Severe sepsis Family History Family History Father No problems noted. Mother No problems noted. Family history: reviewed and not pertinent Surgical History Surgical History H/O adenoidectomy H/O enucleation of left eyeball History of tonsillectomy Social History Social History Household Members: None Housing: Apartment Do you presently have visiting nurse or other home services: Yes Unable to assess alcohol history related to: Unknown Alcohol intake: never Patient Tobacco Use Status: Never used Tobacco Second Hand Smoke Exposure: No Advance Directives: Yes Advance Directives on File: Yes Advance Directives Date on File: 07/09/20 service: No Current occupational status: disabled Meds Allergies Allergy/AdvReac Type Severity Reaction Status Date / Time silver sulfadiazine Allergy Unknown UNK Verified 07/27/21 14:29 [From SILVADENE] Active Medications: Current Medications Acetaminophen (Acetaminophen 325 Mg Tablet) 650 mg PO Q6H PRN PRN Reason: Pain, Mild (Pain Scale 1-3) Atorvastatin Calcium (Atorvastatin Calcium 20 Mg Tablet) 20 mg PO BEDTIME MARJAN Dextrose (Dextrose 50 % 25 Gm/50 Ml Syringe) 25 gm IVPUSH Q15M PRN; Protocol PRN Reason: per Hypoglycemia Standing Ord. Fluticasone Propionate (Fluticasone Propionate 100 Mcg Blst.W.Dev) 1 puff INHALE RBID [facility] Gabapentin (Gabapentin 300 Mg Capsule) 300 mg PO BID [facility] Glucose (Glucose Gel 15 Gm Gel..Gram.) 15 gm PO Q15M PRN; Protocol PRN Reason: per Hypoglycemia Standing Ord. Insulin Glargine (Insulin Glargine,Hum.Rec.Anlog 100 Unit/Ml 10 Ml Vial) 40 unit SUBCUT DAILY [facility] Last Admin: 11/03/21 14:21 Dose: 40 unit Documented by: Insulin Human Lispro (Insulin Lispro 100 Unit/Ml 3 Ml Vial) 0 unit SUBCUT QIDACHS [facility]; Protocol Last Admin: 11/03/21 14:23 Dose: 2 unit Documented by: Melatonin (Melatonin 3 Mg Tablet) 6 mg PO BEDTIME PRN PRN Reason: Insomnia Metoprolol Tartrate (Metoprolol Tartrate 50 Mg Tablet) 50 mg PO BID [facility]; Protocol Last Admin: 11/03/21 14:20 Dose: 50 mg Documented by: Pharmacy Consult (Consult Rx Perform Med Rec) 1 each MISCELLANE ONCE PRN PRN Reason: Consult order Senna (Sennosides 8.6 Mg Tablet) 17.2 mg PO BEDTIME PRN PRN Reason: Constipation Sodium Chloride (0.9 % Sodium Chloride Flush 3 Ml Syringe) 3 ml IVFLUSH QSHIFT [facility] Last Admin: 11/03/21 15:55 Dose: 3 ml Documented by: Home Medications Medication Instructions Recorded Confirmed Last Taken Type albuterol sulfate 90 mcg/actuation 2 puff INHALATION Q4-6H PRN 01/23/21 11/02/21 Unknown History aerosol inhaler (Proventil HFA) apixaban 5 mg tablet (Eliquis) 5 mg PO BID 01/23/21 11/02/21 11/02/21 History gabapentin 300 mg capsule 300 mg PO BID 01/23/21 11/02/21 11/02/21 History insulin lispro 100 unit/mL See Protocol SUBCUT TIDAC 01/23/21 11/02/21 11/02/21 History subcutaneous solution (Humalog U-100 Insulin) lisinopril 5 mg tablet 5 mg PO DAILY 01/23/21 11/02/21 11/02/21 History simvastatin 40 mg tablet 40 mg PO BEDTIME 01/23/21 11/02/2111/02/22 History Lactobacillus rhamnosus GG 10 1 cap PO DAILY 10/24/21 11/02/21 Unknown History billion cell capsule (Culturelle) aspirin 81 mg tablet,delayed 81 mg PO DAILY 10/24/21 11/02/21 11/02/21 History release fluticasone propionate 100 1 puff PO BID 10/24/21 11/02/21 11/02/21 History mcg/actuation blister powder for inhalation (Flovent Diskus) insulin glargine 100 unit/mL (3 64 unit SUBCUT DAILY 10/24/21 11/02/21 11/02/21 History mL) subcutaneous pen (Lantus Solostar U-100 Insulin) metformin 850 mg tablet 1 tab PO BIDWM 10/24/21 11/02/21 11/02/21 History metoprolol tartrate 50 mg tablet 1 tab PO BID 10/24/21 11/02/21 11/02/21 History furosemide 40 mg tablet 1 tab PO BIDWM 11/02/21 11/02/21 11/02/21 History Physical Exam Vital Signs: Vital Signs: Last Vital Signs Temp 98.0 F 11/03/21 08:51 Pulse 58 11/03/21 12:25 Resp 18 11/03/21 12:25 BP 149/66 H 11/03/21 12:25 Pulse Ox 95 11/03/21 12:25 BMI result Body Mass Index 43.2 Const: General: cooperative Eyes: General: appearance normal, both eyes and all related structures Pupils: Equal, round and reactive pupils present Resp: Effort & Inspection: normal respiratory effort Cardio: Rate: regular rate Rhythm: regular rhythm GI: Palpation (GI): Soft to palpation and nontender Neuro: Cranial nerves: Yes Equal, round and reactive pupils present Extrem: General: Yes normal to inspection Results Labs CBC & Chem 7: 11/03/21 06:18 11/03/21 06:18 Labs: Short CBC 11/02/21 11/03/21 Range/Units 20:15 06:18 WBC 7.5 6.4 (4.8-10.8) X10*3/uL Hgb 13.5 12.4 (12.0-16.0) g/dl Hct 43.0 39.4 (37.0-47.0) % Plt Count 190 177 (160-400) X10*3/uL BMP 11/02/21 11/03/21 20:15 06:18 Sodium 136 137 Potassium 4.4 4.1 Chloride 94 L 96 Carbon Dioxide 35 H 34 H BUN 12 13 Creatinine 2.73 H 0.91 Calcium 9.3 8.8 Liver Function 11/02/21 Range/Units 20:15 Total Bilirubin 0.4 (0.0-1.0) mg/dL Direct Bilirubin 0.2 (0.0-0.5) mg/dL AST 16 (5-31) U/L ALT 15 (0-31) U/L Alkaline Phosphatase 104 (39-117) U/L Albumin 3.7 (3.5-5.0) g/dL Urine 11/02/21 Range/Units 21:47 Urine Color YELLOW Urine Appearance CLEAR Urine pH 6.0 (5.0-8.0) Ur Specific [place] <= 1.005 (1.005-1.025) Urine Protein NEG (NEG-TRACE) MG/DL Urine Glucose (UA) NEG (NEG) MG/DL Assessment and Plan (1) Acute kidney injury: Status: Acute (2) UTI (urinary tract infection): Status: Acute She has suprapubic pain possible related to catheter She has no urinary cultures positive now. She has probable chronic colonization with no sepsis Plan Agree holding antibiotics and observe Restart Ceftriaxone if hematuria or fever with pain
[2021-11-03 16:32] VITALS: BP 150/65; PULSE 69; RESP 18; TEMP 36.5; O2SAT 94
[2021-11-03 17:45] LABS: Glucose, Whole Blood 231 mg/dL (60-115)
[2021-11-03 17:45] LABS: Glucose, Whole Blood 177 mg/dL (60-115)
--- NOTE | 2021-11-03 18:28 | P.CONNP_ITS ---
History of Present Illness Reason for Consult Consult date: 11/03/21 Chief Complaint Chief complaint: SNEHA History of Present Illness Narrative: 71 yr old woman with chronic urinary catheter On admission , Cr was 2.73; Baseline is 0.6 BUN was 13 and baseline is 11 Within 12 hours, Cr is down to 0.9 and BUN unchanged Review of Systems Review of Systems negative except HPI Yes all other systems are reviewed and are negative [facility] Past Medical History Medical History Aortic stenosis Bacteriuria Chronic indwelling Rai catheter Chronic UTI Chronic UTI Congestive heart failure COPD (chronic obstructive pulmonary disease) Diabetes Diarrhea Glaucoma H/O: CVA (cerebrovascular accident) Hypertension Non-rheumatic aortic stenosis Obesity Osteoarthritis Paroxysmal atrial fibrillation Severe sepsis Family History Family History Father No problems noted. Mother No problems noted. Family history: reviewed and not pertinent Surgical History Surgical History H/O adenoidectomy H/O enucleation of left eyeball History of tonsillectomy Social History Social History Household Members: None Housing: Apartment Do you presently have visiting nurse or other home services: Yes Unable to assess alcohol history related to: Unknown Alcohol intake: never Patient Tobacco Use Status: Never used Tobacco Second Hand Smoke Exposure: No Advance Directives Date on File: 07/09/20 service: No Current occupational status: disabled Meds Allergies Allergy/AdvReac Type Severity Reaction Status Date / Time silver sulfadiazine Allergy Unknown UNK Verified 07/27/21 14:29 [From SILVADENE] Active Medications: Current Medications Acetaminophen (Acetaminophen 325 Mg Tablet) 650 mg PO Q6H PRN PRN Reason: Pain, Mild (Pain Scale 1-3) Atorvastatin Calcium (Atorvastatin Calcium 20 Mg Tablet) 20 mg PO BEDTIME [facility] Dextrose (Dextrose 50 % 25 Gm/50 Ml Syringe) 25 gm IVPUSH Q15M PRN; Protocol PRN Reason: per Hypoglycemia Standing Ord. Fluticasone Propionate (Fluticasone Propionate 100 Mcg Blst.W.Dev) 1 puff INHALE RBID [facility] Gabapentin (Gabapentin 300 Mg Capsule) 300 mg PO BID [facility] Glucose (Glucose Gel 15 Gm Gel..Gram.) 15 gm PO Q15M PRN; Protocol PRN Reason: per Hypoglycemia Standing Ord. Insulin Glargine (Insulin Glargine,Hum.Rec.Anlog 100 Unit/Ml 10 Ml Vial) 40 unit SUBCUT DAILY [facility] Last Admin: 11/03/21 14:21 Dose: 40 unit Documented by: Insulin Human Lispro (Insulin Lispro 100 Unit/Ml 3 Ml Vial) 0 unit SUBCUT QIDACHS [facility]; Protocol Last Admin: 11/03/21 14:23 Dose: 2 unit Documented by: Melatonin (Melatonin 3 Mg Tablet) 6 mg PO BEDTIME PRN PRN Reason: Insomnia Metoprolol Tartrate (Metoprolol Tartrate 50 Mg Tablet) 50 mg PO BID [facility]; Protocol Last Admin: 11/03/21 14:20 Dose: 50 mg Documented by: Pharmacy Consult (Consult Rx Perform Med Rec) 1 each MISCELLANE ONCE PRN PRN Reason: Consult order Senna (Sennosides 8.6 Mg Tablet) 17.2 mg PO BEDTIME PRN PRN Reason: Constipation Sodium Chloride (0.9 % Sodium Chloride Flush 3 Ml Syringe) 3 ml IVFLUSH QSHIFT [facility] Last Admin: 11/03/21 15:55 Dose: 3 ml Documented by: Home Medications Medication Instructions Recorded Confirmed Last Taken Type albuterol sulfate 90 mcg/actuation 2 puff INHALATION Q4-6H PRN 01/23/21 11/02/21 Unknown History aerosol inhaler (Proventil HFA) apixaban 5 mg tablet (Eliquis) 5 mg PO BID 01/23/21 11/02/21 11/02/21 History gabapentin 300 mg capsule 300 mg PO BID 01/23/21 11/02/21 11/02/21 History insulin lispro 100 unit/mL See Protocol SUBCUT TIDAC 01/23/21 11/02/21 11/02/21 History subcutaneous solution (Humalog U-100 Insulin) lisinopril 5 mg tablet 5 mg PO DAILY 01/23/21 11/02/21 11/02/21 History simvastatin 40 mg tablet 40 mg PO BEDTIME 01/23/21 11/02/21 11/02/21 History Lactobacillus rhamnosus GG 10 1 cap PO DAILY 10/24/21 11/02/21 Unknown History billion cell capsule (Culturelle) aspirin 81 mg tablet,delayed 81 mg PO DAILY 10/24/21 11/02/21 11/02/21 History release fluticasone propionate 100 1 puff PO BID 10/24/21 11/02/21 11/02/21 History mcg/actuation blister powder for inhalation (Flovent Diskus) insulin glargine 100 unit/mL (3 64 unit SUBCUT DAILY 10/24/21 11/02/21 11/02/21 History mL) subcutaneous pen (Lantus Solostar U-100 Insulin) metformin 850 mg tablet 1 tab PO BIDWM 10/24/21 11/02/21 11/02/21 History metoprolol tartrate 50 mg tablet 1 tab PO BID 10/24/21 11/02/21 11/02/21 History furosemide 40 mg tablet 1 tab PO BIDWM 11/02/21 11/02/21 11/02/21 History Physical Exam Vital Signs: Last Vital Signs Temp 97.7 F 11/03/21 16:32 Pulse 69 11/03/21 16:32 Resp 18 11/03/21 16:32 BP 150/65 H 11/03/21 16:32 Pulse Ox 94 11/03/21 16:32 BMI result Body Mass Index 43.2 Const Other: General - no acute distress, appears comfortable Cardiovascular - regular rate and rhythm, S1-S2 Lungs - normal respiratory effort, clear to auscultation bilaterally, no wheezing Abdomen - soft, nontender, no rebound or guarding - no cva tenderness, rai clear Extremities - no edema bilaterally Neuro - awake and alert, no focal deficits General: cooperative Eyes General: appearance normal, both eyes and all related structures Pupils: Equal, round and reactive pupils present Resp Effort & Inspection: normal respiratory effort Cardio Rate: regular rate Rhythm: regular rhythm GI Palpation (GI): Soft to palpation and nontender Neuro Cranial nerves: Yes Equal, round and reactive pupils present Extrem General: Yes normal to inspection Results Lab Results Result Diagrams: 11/03/21 06:18 11/04/21 10:53 Lab results: Chemistry 11/02/21 11/03/21 20:15 06:18 Sodium 136 137 Potassium 4.4 4.1 Carbon Dioxide 35 H 34 H BUN 12 13 Creatinine 2.73 H 0.91 Calcium 9.3 8.8 Hematology 11/02/21 11/03/21 20:15 06:18 WBC 7.5 6.4 Hgb 13.5 12.4 Plt Count 190 177 Urinalysis 11/02/21 21:47 Urine Color YELLOW Urine Appearance CLEAR Urine pH 6.0 Ur Specific [place] <= 1.005 Urine Protein NEG Urine Glucose (UA) NEG Urine Ketones NEG Urine Blood 2+ H Urine Nitrite NEG Ur Leukocyte Esterase 3+ H Urine RBC 0-2 Urine WBC 1-4 Ur Squamous Epith Cells TRACE Assessment and Plan (1) Acute kidney injury: Status: Acute (2) UTI (urinary tract infection): Status: Acute She has suprapubic pain possible related to catheter She has no urinary cultures positive now. She has probable chronic colonization with no sepsis Plan Possible SNEHA in asetting of chronic urinary catheter However, the rapid hood ein creatinine without change in BUN is suspicious for spurious lab value Further clinical course will determine this For now, continue current medical management and watch BUN/Cr Keep I > O Avoid nephrotoxins as usual Procedures Date of Service Date of Service: 11/03/21
[2021-11-03 20:22] LABS: Glucose, Whole Blood 289 mg/dL (60-115)
[2021-11-03 20:45] VITALS: BP 164/61; PULSE 64; RESP 16; TEMP 36.6; O2SAT 95
[2021-11-03 21:02] LABS: Glucose, Whole Blood 277 mg/dL (60-115)
[2021-11-03] MEDS: Atorvastatin Calcium 20 MG TABLET PO (21:46)
--- NOTE | 2021-11-03 22:04 | PC.NURSE ---
care was given and patient reposition .
[2021-11-04] VITALS (9 sets, daily range): BP systolic 127–196; BP diastolic 58–87; PULSE 56–72; RESP 16–22; TEMP 36.3–36.9; O2SAT 92–100
--- NOTE | 2021-11-04 06:10 | PC.NURSE ---
PATIENT WAS REPOSITION OFF BOTTOM ,BARRIER CREAM APPLY TO BUTTOCK.
[2021-11-04 07:21] LABS: Glucose, Whole Blood 125 mg/dL (60-115)
[2021-11-04] MEDS: Fluticasone Propionate 100 MCG BLST.W.DEV 1 PUFF INHALE ×2 (09:10→21:58)
--- NOTE | 2021-11-04 09:22 | PC.NURSE ---
pt alert and oriented and able to make needs known, LS clear, vss, pt requesting to repositioned to right side for comfort, pt resting comfortably
[2021-11-04] MEDS: Insulin Glargine,Hum.rec.anlog 100 UNIT/ML 10 ML VIAL 40 UNIT SUBCUT (09:46)
[2021-11-04] MEDS: Metoprolol Tartrate 50 MG TABLET PO ×2 (09:46→20:18)
[2021-11-04] MEDS: Gabapentin 300 MG CAPSULE PO ×2 (09:46→20:18)
[2021-11-04] MEDS: 0.9 % Sodium Chloride Flush 3 ML SYRINGE IVFLUSH ×3 (09:46→20:25)
--- NOTE | 2021-11-04 10:08 | PM.PNNEP ---
Subjective Subjective Date of Service: 11/06/21 Interval history: Events noted Feels better Physical Exam Vital Signs: Vital Signs: Last Vital Signs Temp 97.3 F 11/04/21 09:07 Pulse 72 11/04/21 09:11 Resp 18 11/04/21 09:11 BP 143/74 H 11/04/21 09:07 Pulse Ox 95 11/04/21 09:07 BMI result Body Mass Index 43.2 Const: Other: General - no acute distress, appears comfortable Cardiovascular - regular rate and rhythm, S1-S2 Lungs - normal respiratory effort, clear to auscultation bilaterally, no wheezing Abdomen - soft, nontender, no rebound or guarding - no cva tenderness, rai clear Extremities - no edema bilaterally Neuro - awake and alert, no focal deficits Objective Data Labs CBC & Chem 7: 11/03/21 06:18 11/04/21 10:53 Labs: Laboratory Results - last 24 hr 11/03/21 11/03/21 11/03/21 12:50 17:41 20:15 POC Glucose 177 H 231 H 289 H 11/03/21 11/04/21 20:57 07:14 POC Glucose 277 H 125 H Microbiology Microbiology Results: Microbiology 11/02/21 Unknown Urine clean catch - Urine bojorquez top Urine Culture - Preliminary Gram negative adriana 11/02/21 20:15 Blood - Venous Blood Culture - Preliminary No growth after 24 hours. 11/02/21 20:15 Blood - Venous Blood Culture - Preliminary No growth after 24 hours. Procedures Date of Service Date of Service: 11/04/21 Assessment & Plan Assessment and plan (1) Acute kidney injury: Status: Acute Plan Creatinine is back to baseline as of 11/03 Recheck BUN Cr If stable, no further work up Time Spent With Patient Time: Total time spent is greater than 50% in coordination of care (as documented) at patient's floor/unit and/or counseling patient: Progress Note: Quality Stroke Does the patient have a stroke diagnosis?: No
[2021-11-04 11:16] LABS: Anion Gap 9 (12-20); Blood Urea Nitrogen 13 mg/dL (9-16); Calcium 9.4 mg/dL (8.4-10.2); Carbon Dioxide 37 mmol/L (22-29); Chloride 94 mmol/L (96-108); Creatinine Clr Calc Pharmacy 99.5; Estimated Glomerular Filt Rate > 60; Glucose Random 329 mg/dL (60-115); Potassium 4.7 mmol/L (3.3-5.1); Sodium 135 mmol/L (135-145)
[2021-11-04 11:24] LABS: Glucose, Whole Blood 258 mg/dL (60-115)
[2021-11-04] MEDS: Insulin Lispro 100 UNIT/ML 3 ML VIAL SUBCUT ×3 (11:47→20:18)
--- NOTE | 2021-11-04 11:52 | P.CNUR_ITS ---
History of Present Illness Consult details Consult date: 11/04/21 Narrative: Aleah is a poorly controlled diabetic Presented to hospital with flank pain Prior presentation to emergency room with blood in urine Has indwelling Molina catheter that had been placed at [facility] in is managed with [facility] Poorly controlled diabetes with last HB A1c over 11 Discussed with diabetic cystopathy She has had high risk of recurrent infection with Molina catheter Better management would be clean intermittent catheterization and intensive diabetic control At this stage she can follow up with [facility] for bladder management Review of Systems Constitutional: Constitutional: Denies chills and Denies fever(s) Cardiovascular: Cardiovascular: Reports no additional cardiovascular complaints and Denies syncope Respiratory: Respiratory: Denies cough Gastrointestinal: Gastrointestinal: Denies abdominal pain and Denies heartburn Genitourinary: Genitourinary: Reports as per HPI and Denies change in libido Neurologic: Denies syncope Psychiatric: Psychiatric: Denies change in libido Endocrine: Endocrine: Denies change in libido [facility] Past Medical History Medical History Aortic stenosis Bacteriuria Chronic indwelling Molina catheter Chronic UTI Chronic UTI Congestive heart failure COPD (chronic obstructive pulmonary disease) Diabetes Diarrhea Glaucoma H/O: CVA (cerebrovascular accident) Hypertension Non-rheumatic aortic stenosis Obesity Osteoarthritis Paroxysmal atrial fibrillation Severe sepsis Family History Family History Father No problems noted. Mother No problems noted. Family history: reviewed and not pertinent Surgical History Surgical History H/O adenoidectomy H/O enucleation of left eyeball History of tonsillectomy Social History Social History Household Members: None Housing: Apartment Do you presently have visiting nurse or other home services: Yes Unable to assess alcohol history related to: Unknown Alcohol intake: never Patient Tobacco Use Status: Never used Tobacco Second Hand Smoke Exposure: No Advance Directives Date on File: 07/09/20 service: No Current occupational status: disabled Meds Allergies Allergy/AdvReac Type Severity Reaction Status Date / Time silver sulfadiazine Allergy Unknown UNK Verified 07/27/21 14:29 [From RUFINOE] Active Medications: Current Medications Acetaminophen (Acetaminophen 325 Mg Tablet) 650 mg PO Q6H PRN PRN Reason: Pain, Mild (Pain Scale 1-3) Atorvastatin Calcium (Atorvastatin Calcium 20 Mg Tablet) 20 mg PO BEDTIME [facility] Last Admin: 11/03/21 21:46 Dose: 20 mg Documented by: Dextrose (Dextrose 50 % 25 Gm/50 Ml Syringe) 25 gm IVPUSH Q15M PRN; Protocol PRN Reason: per Hypoglycemia Standing Ord. Fluticasone Propionate (Fluticasone Propionate 100 Mcg Blst.W.Dev) 1 puff INHALE RBID [facility] Last Admin: 11/04/21 09:10 Dose: 1 puff Documented by: Gabapentin (Gabapentin 300 Mg Capsule) 300 mg PO BID [facility] Last Admin: 11/04/21 09:46 Dose: 300 mg Documented by: Glucose (Glucose Gel 15 Gm Gel..Gram.) 15 gm PO Q15M PRN; Protocol PRN Reason: per Hypoglycemia Standing Ord. Insulin Glargine (Insulin Glargine,Hum.Rec.Anlog 100 Unit/Ml 10 Ml Vial) 40 unit SUBCUT DAILY [facility] Last Admin: 11/04/21 09:46 Dose: 40 unit Documented by: Insulin Human Lispro (Insulin Lispro 100 Unit/Ml 3 Ml Vial) 0 unit SUBCUT QIDACHS [facility]; Protocol Last Admin: 11/04/21 11:47 Dose: 6 unit Documented by: Melatonin (Melatonin 3 Mg Tablet) 6 mg PO BEDTIME PRN PRN Reason: Insomnia Metoprolol Tartrate (Metoprolol Tartrate 50 Mg Tablet) 50 mg PO BID [facility]; Protocol Last Admin: 11/04/21 09:46 Dose: 50 mg Documented by: Pharmacy Consult (Consult Rx Perform Med Rec) 1 each MISCELLANE ONCE PRN PRN Reason: Consult order Senna (Sennosides 8.6 Mg Tablet) 17.2 mg PO BEDTIME PRN PRN Reason: Constipation Sodium Chloride (0.9 % Sodium Chloride Flush 3 Ml Syringe) 3 ml IVFLUSH QSHIFT [facility] Last Admin: 11/04/21 09:46 Dose: 3 ml Documented by: Home Medications Medication Instructions Recorded Confirmed Last Taken Type albuterol sulfate 90 mcg/actuation 2 puff INHALATION Q4-6H PRN 01/23/21 11/02/21 Unknown History aerosol inhaler (Proventil HFA) apixaban 5 mg tablet (Eliquis) 5 mg PO BID 01/23/21 11/02/21 11/02/21 History gabapentin 300 mg capsule 300 mg PO BID 01/23/21 11/02/21 11/02/21 History insulin lispro 100 unit/mL See Protocol SUBCUT TIDAC 01/23/21 11/02/21 11/02/21 History subcutaneous solution (Humalog U-100 Insulin) lisinopril 5 mg tablet 5 mg PO DAILY 01/23/21 11/02/21 11/02/21 History simvastatin 40 mg tablet 40 mg PO BEDTIME 01/23/21 11/02/21 11/02/21 History Lactobacillus rhamnosus GG 10 1 cap PO DAILY 10/24/21 11/02/21 Unknown History billion cell capsule (Culturelle) aspirin 81 mg tablet,delayed 81 mg PO DAILY 10/24/21 11/02/21 11/02/21 History release fluticasone propionate 100 1 puff PO BID 10/24/21 11/02/21 11/02/21 History mcg/actuation blister powder for inhalation (Flovent Diskus) insulin glargine 100 unit/mL (3 64 unit SUBCUT DAILY 10/24/21 11/02/21 11/02/21 History mL) subcutaneous pen (Lantus Solostar U-100 Insulin) metformin 850 mg tablet 1 tab PO BIDWM 10/24/21 11/02/21 11/02/21 History metoprolol tartrate 50 mg tablet 1 tab PO BID 10/24/21 11/02/21 11/02/21 History furosemide 40 mg tablet 1 tab PO BIDWM 11/02/21 11/02/21 11/02/21 History Physical Exam Vital Signs: Vital Signs: Last Vital Signs Temp 98.0 F 11/04/21 10:54 Pulse 60 11/04/21 10:54 Resp 22 H 11/04/21 10:54 BP 165/75 H 11/04/21 10:54 Pulse Ox 94 11/04/21 10:54 BMI result Body Mass Index 43.2 Const: General: cooperative, healthy appearing, comfortable and no acute distress Orientation/consciousness: patient oriented x3 HEENT: Face and sinus: Yes normal facial exam Mouth: moist mucous membranes Neck: Neck: Yes normal visual inspection, Yes full ROM and Yes trachea midline Chest: Chest palpation & inspection: normal inspection of the chest Resp: Effort & Inspection: normal respiratory effort, able to speak in complete sentences and no respiratory distress GI: Inspection: Yes normal to inspection Back/Spine/Pelvis: Cervical Spine: normal cervical lordosis Thoracic/Lumbar Spine: thoracic and lumbar spine normal to inspection Skin: General skin exam: no rashes or lesions noted Neuro: General: patient oriented x3, gait normal, tone normal and moves all extremities Extrem: General: Yes normal to inspection and Yes capillary refill normal Results Labs Result diagrams: 11/03/21 06:18 11/04/21 10:53 Labs: Abnormal lab results 11/03/21 11/03/21 11/03/21 Range/Units 12:50 17:41 20:15 Chloride (96-108) mmol/L Carbon Dioxide (22-29) mmol/L Anion Gap (12-20) POC Glucose 177 H 231 H 289 H (60-115) mg/dL Random Glucose (60-115) mg/dL 11/03/21 11/04/21 11/04/21 Range/Units 20:57 07:14 10:53 Chloride 94 L (96-108) mmol/L Carbon Dioxide 37 H (22-29) mmol/L Anion Gap 9 L (12-20) POC Glucose 277 H 125 H (60-115) mg/dL Random Glucose 329 H (60-115) mg/dL 11/04/21 Range/Units 11:03 Chloride (96-108) mmol/L Carbon Dioxide (22-29) mmol/L Anion Gap (12-20) POC Glucose 258 H (60-115) mg/dL Random Glucose (60-115) mg/dL BMP 11/04/21 10:53 Sodium 135 Potassium 4.7 Chloride 94 L Carbon Dioxide 37 H BUN 13 Creatinine 0.70 Calcium 9.4 D Urine 11/02/21 Range/Units 21:47 Urine Color YELLOW Urine Appearance CLEAR Urine pH 6.0 (5.0-8.0) Ur Specific [place] <= 1.005 (1.005-1.025) Urine Protein NEG (NEG-TRACE) MG/DL Urine Glucose (UA) NEG (NEG) MG/DL All other labs normal. Assessment and Plan (1) Hypotonic neurogenic bladder: Status: Acute (2) UTI (urinary tract infection): Status: Acute Plan Molina catheter She can follow up with [facility] for further bladder management a fter discharge Procedures Date of Service Date of Service: 11/03/21
--- NOTE | 2021-11-04 12:25 | MHC.CM.PN ---
Addendum entered by Delaney Chatterjee 11/04/21 13:49: PHOEBE MALONEY UPDATED IN [employer] Original Note: PLAN WAS FOR HUSAMT TO RETURN HOME TODAY URINE CX ARE POSITIVE. PATIENT TO REMAIN UNTIL FINAL RESULTS ARE BACK.
[2021-11-04] MEDS: Acetaminophen 325 MG TABLET 650 MG PO (13:04)
--- NOTE | 2021-11-04 15:11 | P.PNIM_ITS ---
Subjective Subjective Date of Service: 11/04/21 Interval History: seen and examined this morning follow up for hematuria hematuria improved. denies abdominal pain, fever or chills Review of Systems Review of Systems: Yes all other systems are reviewed and are negative Constitutional Constitutional: Denies chills and Denies fever(s) Cardiovascular Cardiovascular: Denies chest pain, Denies palpitations and Denies dyspnea Respiratory Respiratory: Denies cough and Denies dyspnea Gastrointestinal Gastrointestinal: Denies abdominal pain, Denies nausea and Denies vomiting Endocrine Endocrine: Denies palpitations Physical Exam Vital Signs: Vital Signs: Last Vital Signs Temp 98.0 F 11/04/21 10:54 Pulse 60 11/04/21 10:54 Resp 22 H 11/04/21 10:54 BP 165/75 H 11/04/21 10:54 Pulse Ox 94 11/04/21 10:54 BMI result Body Mass Index 43.2 Const: General: cooperative, comfortable, no acute distress, alert and awake Nutritional Appearance: obese Orientation/consciousness: patient oriented x3 Resp: Effort & Inspection: normal respiratory effort and able to speak in complete sentences Cardio: Rate: regular rate Heart sounds: S1 normal heart sound present and S2 normal heart sound present GI: Inspection: No distended Palpation (GI): Soft to palpation and nontender : Other: rai draining clear yellow urine Neuro: General: patient oriented x3 Extrem: General: Yes no pedal edema Objective Data Active Medications Acetaminophen (Acetaminophen 325 Mg Tablet) 650 mg PO Q6H PRN PRN Reason: Pain, Mild (Pain Scale 1-3) Last Admin: 11/04/21 13:04 Dose: 650 mg Documented by: KARIS Atorvastatin Calcium (Atorvastatin Calcium 20 Mg Tablet) 20 mg PO BEDTIME COUNT INCLUDES [facility] Last Admin: 11/03/21 21:46 Dose: 20 mg Documented by: ESTER Dextrose (Dextrose 50 % 25 Gm/50 Ml Syringe) 25 gm IVPUSH Q15M PRN; Protocol PRN Reason: per Hypoglycemia Standing Ord. Fluticasone Propionate (Fluticasone Propionate 100 Mcg Blst.W.Dev) 1 puff INHALE RBID COUNT INCLUDES THE [facility] Last Admin: 11/04/21 09:10 Dose: 1 puff Documented by: VIVEK Gabapentin (Gabapentin 300 Mg Capsule) 300 mg PO BID COUNT INCLUDES THE [facility] Last Admin: 11/04/21 09:46 Dose: 300 mg Documented by: CELIA Glucose (Glucose Gel 15 Gm Gel..Gram.) 15 gm PO Q15M PRN; Protocol PRN Reason: per Hypoglycemia Standing Ord. Insulin Glargine (Insulin Glargine,Hum.Rec.Anlog 100 Unit/Ml 10 Ml Vial) 40 unit SUBCUT DAILY COUNT INCLUDES THE [facility] Last Admin: 11/04/21 09:46 Dose: 40 unit Documented by: CELIA Insulin Human Lispro (Insulin Lispro 100 Unit/Ml 3 Ml Vial) 0 unit SUBCUT QIDACHS COUNT INCLUDES THE [facility]; Protocol Last Admin: 11/04/21 11:47 Dose: 6 unit Documented by: KARIS Melatonin (Melatonin 3 Mg Tablet) 6 mg PO BEDTIME PRN PRN Reason: Insomnia Metoprolol Tartrate (Metoprolol Tartrate 50 Mg Tablet) 50 mg PO BID COUNT INCLUDES THE [facility]; Protocol Last Admin: 11/04/21 09:46 Dose: 50 mg Documented by: CELIA Pharmacy Consult (Consult Rx Perform Med Rec) 1 each MISCELLANE ONCE PRN PRN Reason: Consult order Senna (Sennosides 8.6 Mg Tablet) 17.2 mg PO BEDTIME PRN PRN Reason: Constipation Sodium Chloride (0.9 % Sodium Chloride Flush 3 Ml Syringe) 3 ml IVFLUSH QSHIFT COUNT INCLUDES THE [facility] Last Admin: 11/04/21 09:46 Dose: 3 ml Documented by: CELIA Labs CBC & Chem 7: 11/03/21 06:18 11/04/21 10:53 Labs: Laboratory Results - last 24 hr 11/03/21 11/03/21 11/03/21 12:50 17:41 20:15 Anion Gap Estim Creat Clear Calc Estimated GFR POC Glucose 177 H 231 H 289 H Random Glucose Calcium 11/03/21 11/04/21 11/04/21 20:57 07:14 10:53 Anion Gap 9 L Estim Creat Clear Calc 99.5 Estimated GFR > 60 POC Glucose 277 H 125 H Random Glucose 329 H Calcium 9.4 D 11/04/21 11:03 Anion Gap Estim Creat Clear Calc Estimated GFR POC Glucose 258 H Random Glucose Calcium Microbiology Microbiology Results: Microbiology 11/02/21 Unknown Urine Culture - Preliminary Urine clean catch - Urine bojorquez top Gram negative adriana 11/02/21 20:15 Blood Culture - Preliminary Blood - Venous No growth after 24 hours. 11/02/21 20:15 Blood Culture - Preliminary Blood - Venous No growth after 24 hours. Assessment and Plan (1) Hypotonic neurogenic bladder: Status: Acute (2) Acute kidney injury: Status: Acute Plan This is a 71 yo F with a chronic rai and recurrent UTI who presents to the ED with reported hematuria. She is found to have SNEHA. SNEHA likely pre-renal. resolved. creatinine down from 2.73 to 0.70 hold herve + diuretics Reported hematuria appears self resolved does have a small kidney stone -- non-obstructing seen by urology - no inpatient workup, outpatient follow up Question UTI hx of prior UTI (ESBL previously) suspected in the ED / at time of admission; however her UA is actually improved from last one; she does not report fevers, abdominal pain, dysuria urine culture now growing GNR, d/w ID - will start nitrofurantoin based on last culture follow final culture results PAF continue metoprolol resume eliquis DM basal+bolus POC QIDAC DM diet Chronic HFpEF hold diuretics and re-eval tomorrow Full Code DVT pptx - Jessy attending: dr. bain Reason for continued hospitalization: treatment of SNEHA and UTI, awaiting final urine culture reports Quality Stroke Does the patient have a stroke diagnosis?: No VTE Prior VTE?: No VTE Risk Level:: Medical - moderate - high VTE Device Contraindication: N/A - Device Ordered VTE Drug Contraindication: Treatment Not Indicated
[2021-11-04 16:14] LABS: Glucose, Whole Blood 185 mg/dL (60-115)
[2021-11-04] MEDS: Nitrofurantoin Monohyd/M-Cryst 100 MG CAPSULE PO (16:35)
[2021-11-04 20:03] LABS: Glucose, Whole Blood 181 mg/dL (60-115)
[2021-11-04] MEDS: Melatonin 3 MG TABLET 6 MG PO (20:18)
[2021-11-04] MEDS: Atorvastatin Calcium 20 MG TABLET PO (20:18)
[2021-11-04] MEDS: Apixaban 5 MG TABLET PO (20:18)
[2021-11-05] VITALS (8 sets, daily range): BP systolic 157–192; BP diastolic 76–87; PULSE 54–75; RESP 17–20; TEMP 36.1–36.8; O2SAT 93–98
[2021-11-05] MEDS: Nitrofurantoin Monohyd/M-Cryst 100 MG CAPSULE PO ×2 (03:21→14:28)
[2021-11-05] MEDS: Acetaminophen 325 MG TABLET 650 MG PO ×2 (03:35→21:38)
[2021-11-05 07:38] LABS: Glucose, Whole Blood 111 mg/dL (60-115)
[2021-11-05] MEDS: Fluticasone Propionate 100 MCG BLST.W.DEV 1 PUFF INHALE ×2 (08:05→20:38)
[2021-11-05] MEDS: Insulin Glargine,Hum.rec.anlog 100 UNIT/ML 10 ML VIAL 40 UNIT SUBCUT (09:57)
[2021-11-05] MEDS: Metoprolol Tartrate 50 MG TABLET PO ×2 (09:57→21:32)
[2021-11-05] MEDS: Gabapentin 300 MG CAPSULE PO ×2 (09:57→21:32)
[2021-11-05] MEDS: polyethylene glycoL 3350 17 GM POWD.PACK PO (09:57)
[2021-11-05] MEDS: Apixaban 5 MG TABLET PO ×2 (09:57→21:32)
[2021-11-05] MEDS: 0.9 % Sodium Chloride Flush 3 ML SYRINGE IVFLUSH ×2 (09:57→14:28)
[2021-11-05] MEDS: Albuterol/Iprat 2.5/0.5MG 3 ML AMPUL.NEB INHALE (11:13)
[2021-11-05 11:46] LABS: Glucose, Whole Blood 235 mg/dL (60-115)
[2021-11-05] MEDS: Insulin Lispro 100 UNIT/ML 3 ML VIAL SUBCUT ×3 (12:09→21:32)
--- NOTE | 2021-11-05 12:12 | MHC.CM.PN ---
PHOEBE MALONEY AWARE THAT WE ARE STILL AWAITING FINAL CULTURES.
--- NOTE | 2021-11-05 12:43 | HO.PM.IMPN ---
Subjective Subjective Date of Service: 11/05/21 Interval History: seen and examined this morning follow up for hematuria/UTI no abdominal pain nausea or vomiting having increased phlegm production, pt states this is chronic for her, denies sob Review of Systems Review of Systems: Yes all other systems are reviewed and are negative Constitutional Constitutional: Denies chills and Denies fever(s) Cardiovascular Cardiovascular: Denies chest pain, Denies palpitations and Denies dyspnea Respiratory Respiratory: Denies cough, Reports excessive phlegm production and Denies dyspnea Gastrointestinal Gastrointestinal: Denies abdominal pain, Denies nausea and Denies vomiting Endocrine Endocrine: Denies palpitations Physical Exam Vital Signs: Vital Signs: Last Vital Signs Temp 97.0 F 11/05/21 11:04 Pulse 63 11/05/21 11:13 Resp 20 11/05/21 11:13 BP 177/85 H 11/05/21 11:04 Pulse Ox 98 11/05/21 11:04 BMI result Body Mass Index 43.2 Const: General: cooperative, comfortable, no acute distress, alert and awake Nutritional Appearance: obese Orientation/consciousness: patient oriented x3 Resp: Other: scattered wheezing Effort & Inspection: normal respiratory effort and able to speak in complete sentences Auscultation: diminished lung sounds Cardio: Rate: regular rate Heart sounds: S1 normal heart sound present and S2 normal heart sound present GI: Inspection: No distended Palpation (GI): Soft to palpation and nontender : Other: rai draining clear yellow urine Neuro: General: patient oriented x3 Extrem: General: Yes no pedal edema Objective Data Active Medications Acetaminophen (Acetaminophen 325 Mg Tablet) 650 mg PO Q6H PRN PRN Reason: Pain, Mild (Pain Scale 1-3) Last Admin: 11/05/21 03:35 Dose: 650 mg Documented by: JEREMIAH Albuterol/Ipratropium (Albuterol/Iprat 2.5/0.5mg 3 Ml Ampul.Neb) 3 ml INHALE Q4H PRN PRN Reason: Shortness of Breath/Wheezing Last Admin: 11/05/21 11:13 Dose: 3 ml Documented by: SERGIO Apixaban (Apixaban 5 Mg Tablet) 5 mg PO BID MARJAN Last Admin: 11/05/21 09:57 Dose: 5 mg Documented by: SRI Atorvastatin Calcium (Atorvastatin Calcium 20 Mg Tablet) 20 mg PO BEDTIME [facility] Last Admin: 11/04/21 20:18 Dose: 20 mg Documented by: JEREMIAH Dextrose (Dextrose 50 % 25 Gm/50 Ml Syringe) 25 gm IVPUSH Q15M PRN; Protocol PRN Reason: per Hypoglycemia Standing Ord. Fluticasone Propionate (Fluticasone Propionate 100 Mcg Blst.W.Dev) 1 puff INHALE RBID [facility] Last Admin: 11/05/21 08:05 Dose: 1 puff Documented by: SERGIO Gabapentin (Gabapentin 300 Mg Capsule) 300 mg PO BID [facility] Last Admin: 11/05/21 09:57 Dose: 300 mg Documented by: SRI Glucose (Glucose Gel 15 Gm Gel..Gram.) 15 gm PO Q15M PRN; Protocol PRN Reason: per Hypoglycemia Standing Ord. Insulin Glargine (Insulin Glargine,Hum.Rec.Anlog 100 Unit/Ml 10 Ml Vial) 40 unit SUBCUT DAILY [facility] Last Admin: 11/05/21 09:57 Dose: 40 unit Documented by: SRI Insulin Human Lispro (Insulin Lispro 100 Unit/Ml 3 Ml Vial) 0 unit SUBCUT QIDACHS [facility]; Protocol Last Admin: 11/05/21 12:09 Dose: 4 unit Documented by: SRI Melatonin (Melatonin 3 Mg Tablet) 6 mg PO BEDTIME PRN PRN Reason: Insomnia Last Admin: 11/04/21 20:18 Dose: 6 mg Documented by: JEREMIAH Metoprolol Tartrate (Metoprolol Tartrate 50 Mg Tablet) 50 mg PO BID [facility]; Protocol Last Admin: 11/05/21 09:57 Dose: 50 mg Documented by: SRI Nitrofurantoin Macrocrystals (Nitrofurantoin Monohyd/M-Cryst 100 Mg Capsule) 100 mg PO Q12H [facility] Last Admin: 11/05/21 03:21 Dose: 100 mg Documented by: JEREMIAH Pharmacy Consult (Consult Rx Perform Med Rec) 1 each MISCELLANE ONCE PRN PRN Reason: Consult order Senna (Sennosides 8.6 Mg Tablet) 17.2 mg PO BEDTIME PRN PRN Reason: Constipation Sodium Chloride (0.9 % Sodium Chloride Flush 3 Ml Syringe) 3 ml IVFLUSH QSHIFT [facility] Last Admin: 11/05/21 09:57 Dose: 3 ml Documented by: SRI Labs CBC & Chem 7: 11/03/21 06:18 11/04/21 10:53 Labs: Laboratory Results - last 24 hr 11/04/21 11/04/21 11/05/21 16:02 19:57 07:09 POC Glucose 185 H 181 H 111 11/05/21 11:03 POC Glucose 235 H Microbiology Microbiology Results: Microbiology 11/02/21 20:15 Blood Culture - Preliminary Blood - Venous No growth after 48 hours. 11/02/21 20:15 Blood Culture - Preliminary Blood - Venous No growth after 48 hours. 11/02/21 Unknown Urine Culture - Preliminary Urine clean catch - Urine bojorquez top Gram negative adriana Assessment and Plan (1) Hypotonic neurogenic bladder: Status: Acute (2) UTI (urinary tract infection): Status: Acute (3) Hematuria: Status: Acute Plan This is a 71 yo F with a chronic rai and recurrent UTI who presents to the ED with reported hematuria. She is found to have SNEHA. SNEHA likely pre-renal. resolved. creatinine down from 2.73 to 0.70 hematuria resolved does have a small kidney stone -- non-obstructing seen by urology - no inpatient workup, outpatient follow up eliquis resumed Possible UTI r/t chronic rai hx of prior ESBL + e coli UTI urine culture now growing GNR, d/w ID - will start nitrofurantoin for now based on last culture. recommend 10 days duration follow final culture results seen by urology - recommend to follow up with primary urologist as chronic rai may not be best option due to DM and risk for recurrent infections COPD some scattered wheezing today, will start breathing treatments, po prednisone PAF continue metoprolol continue eliquis DM hold metformin basal+bolus POC QIDAC DM diet Chronic HFpEF will resume lasix HTN bp trenidng up will resume lisinopril monitor renal function/blood pressure Full Code DVT pptx - Eliquis attending: dr. nieves Reason for continued hospitalization: treatment of SNEHA and UTI, awaiting final urine culture reports Quality Stroke Does the patient have a stroke diagnosis?: No VTE Prior VTE?: No VTE Risk Level:: Medical - moderate - high VTE Device Contraindication: N/A - Device Ordered VTE Drug Contraindication: Treatment Not Indicated
[2021-11-05] MEDS: predniSONE 20 MG TABLET 40 MG PO (14:27)
[2021-11-05 16:46] LABS: Glucose, Whole Blood 258 mg/dL (60-115)
[2021-11-05] MEDS: lisinopriL 5 MG TABLET PO (17:31)
[2021-11-05] MEDS: Furosemide 40 MG TABLET PO (17:31)
--- NOTE | 2021-11-05 19:29 | PC.NURSE ---
BP 191/87 ,DEANN Villeda notified,Lisinopril restarted.
[2021-11-05 21:19] LABS: Glucose, Whole Blood 355 mg/dL (60-115)
[2021-11-05] MEDS: Atorvastatin Calcium 20 MG TABLET PO (21:32)
--- NOTE | 2021-11-05 23:30 | PC.NURSE ---
Dr Mckinney notified around 21:30 of patients HS BS of 355. 10 Units of insulin given as ordered.
[2021-11-06] VITALS (8 sets, daily range): BP systolic 139–184; BP diastolic 64–92; PULSE 61–75; RESP 16–20; TEMP 36.1–37.2; O2SAT 92–98
[2021-11-06] MEDS: 0.9 % Sodium Chloride Flush 3 ML SYRINGE IVFLUSH ×4 (00:51→23:58)
[2021-11-06] MEDS: Nitrofurantoin Monohyd/M-Cryst 100 MG CAPSULE PO ×2 (04:43→16:43)
[2021-11-06] MEDS: Benzonatate 100 MG CAPSULE PO (04:43)
[2021-11-06 07:26] LABS: Glucose, Whole Blood 234 mg/dL (60-115)
[2021-11-06] MEDS: Fluticasone Propionate 100 MCG BLST.W.DEV 1 PUFF INHALE ×2 (07:59→19:29)
[2021-11-06] MEDS: Albuterol/Iprat 2.5/0.5MG 3 ML AMPUL.NEB INHALE ×2 (07:59→19:29)
[2021-11-06] MEDS: Insulin Glargine,Hum.rec.anlog 100 UNIT/ML 10 ML VIAL 40 UNIT SUBCUT (09:33)
[2021-11-06] MEDS: Insulin Lispro 100 UNIT/ML 3 ML VIAL SUBCUT ×4 (09:33→20:31)
[2021-11-06] MEDS: Furosemide 40 MG TABLET PO ×2 (09:34→16:43)
[2021-11-06] MEDS: Apixaban 5 MG TABLET PO ×2 (09:34→20:30)
[2021-11-06] MEDS: lisinopriL 5 MG TABLET PO (09:34)
[2021-11-06] MEDS: Metoprolol Tartrate 50 MG TABLET PO ×2 (09:34→20:30)
[2021-11-06] MEDS: Gabapentin 300 MG CAPSULE PO ×2 (09:34→20:30)
[2021-11-06] MEDS: predniSONE 20 MG TABLET 40 MG PO (09:34)
[2021-11-06] MEDS: Acetaminophen 325 MG TABLET 650 MG PO ×2 (09:41→22:28)
--- NOTE | 2021-11-06 11:56 | HO.PM.IMPN ---
Subjective Subjective Date of Service: 11/06/21 Review of Systems Follow up SNEHA Doing better good appetite Physical Exam Vital Signs: Vital Signs: Last Vital Signs Temp 97 F 11/06/21 07:20 Pulse 63 11/06/21 08:01 Resp 20 11/06/21 08:01 BP 184/84 H 11/06/21 07:20 Pulse Ox 98 11/06/21 07:20 BMI result Body Mass Index 43.2 Appearing in no acute distress lung sounds are clear to auscultation heart regular rate rhythm, clear S1, S2 positive bowel sounds, abdomen is soft, nontender neuro patient is alert x3, no focal deficits Objective Data Active Medications Acetaminophen (Acetaminophen 325 Mg Tablet) 650 mg PO Q6H PRN PRN Reason: Pain, Mild (Pain Scale 1-3) Last Admin: 11/06/21 09:41 Dose: 650 mg Documented by: SRI Albuterol Sulfate (Albuterol Sulfate 90 Mcg 8 Gm Inhaler) 2 puff INHALE Q4H PRN PRN Reason: Wheezing Albuterol/Ipratropium (Albuterol/Iprat 2.5/0.5mg 3 Ml Ampul.Neb) 3 ml INHALE Q4H PRN PRN Reason: Shortness of Breath/Wheezing Last Admin: 11/06/21 07:59 Dose: 3 ml Documented by: SERGIO Apixaban (Apixaban 5 Mg Tablet) 5 mg PO BID [facility] Last Admin: 11/06/21 09:34 Dose: 5 mg Documented by: SRI Atorvastatin Calcium (Atorvastatin Calcium 20 Mg Tablet) 20 mg PO BEDTIME [facility] Last Admin: 11/05/21 21:32 Dose: 20 mg Documented by: CHERI Benzonatate (Benzonatate 100 Mg Capsule) 100 mg PO TID PRN PRN Reason: Cough Last Admin: 11/06/21 04:43 Dose: 100 mg Documented by: CHERI Dextrose (Dextrose 50 % 25 Gm/50 Ml Syringe) 25 gm IVPUSH Q15M PRN; Protocol PRN Reason: per Hypoglycemia Standing Ord. Fluticasone Propionate (Fluticasone Propionate 100 Mcg Blst.W.Dev) 1 puff INHALE RBID [facility] Last Admin: 11/06/21 07:59 Dose: 1 puff Documented by: HO.BRESNE Furosemide (Furosemide 40 Mg Tablet) 40 mg PO BIDWM [facility]; Protocol Last Admin: 11/06/21 09:34 Dose: 40 mg Documented by: SRI Gabapentin (Gabapentin 300 Mg Capsule) 300 mg PO BID [facility] Last Admin: 11/06/21 09:34 Dose: 300 mg Documented by: SRI Glucose (Glucose Gel 15 Gm Gel..Gram.) 15 gm PO Q15M PRN; Protocol PRN Reason: per Hypoglycemia Standing Ord. Insulin Glargine (Insulin Glargine,Hum.Rec.Anlog 100 Unit/Ml 10 Ml Vial) 40 unit SUBCUT DAILY [facility] Last Admin: 11/06/21 09:33 Dose: 40 unit Documented by: SRI Insulin Human Lispro (Insulin Lispro 100 Unit/Ml 3 Ml Vial) 0 unit SUBCUT QIDACHS [facility]; Protocol Last Admin: 11/06/21 09:33 Dose: 4 unit Documented by: SRI Lisinopril (Lisinopril 5 Mg Tablet) 5 mg PO DAILY [facility]; Protocol Last Admin: 11/06/21 09:34 Dose: 5 mg Documented by: SRI Melatonin (Melatonin 3 Mg Tablet) 6 mg PO BEDTIME PRN PRN Reason: Insomnia Last Admin: 11/04/21 20:18 Dose: 6 mg Documented by: JEREMIAH Metoprolol Tartrate (Metoprolol Tartrate 50 Mg Tablet) 50 mg PO BID [facility]; Protocol Last Admin: 11/06/21 09:34 Dose: 50 mg Documented by: SRI Nitrofurantoin Macrocrystals (Nitrofurantoin Monohyd/M-Cryst 100 Mg Capsule) 100 mg PO Q12H [facility] Last Admin: 11/06/21 04:43 Dose: 100 mg Documented by: CHERI Pharmacy Consult (Consult Rx Perform Med Rec) 1 each MISCELLANE ONCE PRN PRN Reason: Consult order Prednisone (Prednisone 20 Mg Tablet) 40 mg PO DAILY [facility] Last Admin: 11/06/21 09:34 Dose: 40 mg Documented by: SRI Senna (Sennosides 8.6 Mg Tablet) 17.2 mg PO BEDTIME PRN PRN Reason: Constipation Sodium Chloride (0.9 % Sodium Chloride Flush 3 Ml Syringe) 3 ml IVFLUSH QSHIFT [facility] Last Admin: 11/06/21 09:33 Dose: 3 ml Documented by: SRI Labs CBC & Chem 7: 11/03/21 06:18 11/04/21 10:53 Labs: Laboratory Results - last 24 hr 11/05/21 11/05/21 11/06/21 16:42 21:10 07:17 POC Glucose 258 H 355 H* 234 H Microbiology Microbiology Results: Microbiology 11/02/21 Unknown Urine Culture - Preliminary Urine clean catch - Urine bojorquez top Escherichia coli Assessment and Plan (1) Hypotonic neurogenic bladder: Status: Acute (2) UTI (urinary tract infection): Status: Acute (3) Hematuria: Status: Acute Plan This is a 71 yo F with a chronic rai and recurrent UTI who presents to the ED with reported hematuria. She is found to have SNEHA. Possible UTI r/t chronic rai hx of prior ESBL + e coli UTI urine culture now growing GNR, d/w ID - will start nitrofurantoin for now based on last culture. recommend 10 days duration follow final culture results seen by urology - recommend to follow up with primary urologist as chronic rai may not be best option due to DM and risk for recurrent infections SNEHA likely pre-renal. resolved. creatinine down from 2.73 to 0.70 hematuria resolved does have a small kidney stone -- non-obstructing seen by urology - no inpatient workup, outpatient follow up eliquis resumed COPD some scattered wheezing today, will start breathing treatments, po prednisone PAF continue metoprolol and eliquis DM hold metformin basal+bolus POC QIDAC DM diet Chronic HFpEF will resume lasix HTN bp trending up will resume lisinopril monitor renal function/blood pressure Full Code DVT pptx - Eliquis attending: dr. Kirkpatrick Reason for continued hospitalization: treatment of SNEHA and UTI, awaiting final urine culture reports Quality Stroke Does the patient have a stroke diagnosis?: No VTE Prior VTE?: No VTE Risk Level:: Medical - moderate - high VTE Device Contraindication: N/A - Device Ordered VTE Drug Contraindication: Treatment Not Indicated
[2021-11-06 12:20] LABS: Glucose, Whole Blood 347 mg/dL (60-115)
[2021-11-06 16:36] LABS: Glucose, Whole Blood 382 mg/dL (60-115)
[2021-11-06 19:49] LABS: Glucose, Whole Blood 373 mg/dL (60-115)
[2021-11-06] MEDS: Atorvastatin Calcium 20 MG TABLET PO (20:30)
[2021-11-07] VITALS: BP 153/62; PULSE 70; RESP 18; TEMP 36.8; O2SAT 95
[2021-11-07] MEDS: Nitrofurantoin Monohyd/M-Cryst 100 MG CAPSULE PO (03:49)
[2021-11-07 04:00] VITALS: BP 154/53; PULSE 67; RESP 18; TEMP 36.7; O2SAT 95
[2021-11-07 07:25] LABS: Glucose, Whole Blood 248 mg/dL (60-115)
[2021-11-07 07:27] VITALS: PULSE 66; RESP 20; TEMP 36.3; O2SAT 99
[2021-11-07] MEDS: Gabapentin 300 MG CAPSULE PO (07:27)
[2021-11-07] MEDS: Furosemide 40 MG TABLET PO (07:27)
[2021-11-07] MEDS: lisinopriL 5 MG TABLET PO (07:27)
[2021-11-07] MEDS: predniSONE 20 MG TABLET 40 MG PO (07:28)
[2021-11-07] MEDS: Insulin Lispro 100 UNIT/ML 3 ML VIAL SUBCUT ×2 (07:28→12:30)
[2021-11-07] MEDS: Metoprolol Tartrate 50 MG TABLET PO (07:28)
[2021-11-07] MEDS: Insulin Glargine,Hum.rec.anlog 100 UNIT/ML 10 ML VIAL 40 UNIT SUBCUT (07:28)
[2021-11-07] MEDS: Apixaban 5 MG TABLET PO (07:28)
[2021-11-07] MEDS: 0.9 % Sodium Chloride Flush 3 ML SYRINGE IVFLUSH ×2 (07:30→13:08)
[2021-11-07] MEDS: Albuterol/Iprat 2.5/0.5MG 3 ML AMPUL.NEB INHALE (07:57)
[2021-11-07] MEDS: Fluticasone Propionate 100 MCG BLST.W.DEV 1 PUFF INHALE (07:57)
[2021-11-07 07:59] VITALS: PULSE 65; RESP 20; O2SAT 97
--- NOTE | 2021-11-07 10:09 | MHC.CM.PN ---
PT MEDICALLY CLEARED FOR D/C HOME W/[facility]UMPTIONOF [facility], ACTION FOR BLS TRANSPORT. NSY, HOSPITALIST AND UNIT AWARE.
--- NOTE | 2021-11-07 11:12 | PM.DS ---
DS: Providers Provider Date of Service: 11/07/21 Date of admission: 11/02/21 22:17 Primary care physician: Cherise Hamm MD Consults: 11/02/21 22:16 Consult to Nephrology Routine Consulting Provider: Eldon Myrick Reason for consultation: SNEHA Consult to Urology Routine Consulting Provider: Tk Smith Reason for consultation: HEmaturia 11/02/21 22:27 Consult to Infectious Diseases Routine Consulting Provider: Cookie Benz Reason for consultation: UTI: Patient has chronic Rai; question antibiotics Attending physician on discharge: Joseph Kirkpatrick Discharging clinician: Angelita Jacobson DS: Diagnosis Discharge Diagnosis (1) Hypotonic neurogenic bladder: Status: Acute (2) UTI (urinary tract infection): Status: Acute (3) Hematuria: Status: Acute DS: Summary Hospital Course Hospital Course: UTI r/t chronic rai, colonized ecoli hx of prior ESBL + e coli UTI d/w ID - nitrofurantoin, recommend 10 days duration seen by urology - recommend to follow up with primary urologist as chronic rai may not be best option due to DM and risk for recurrent infections SNEHA likely pre-renal. resolved. creatinine down from 2.73 to 0.70 hematuria resolved does have a small kidney stone -- non-obstructing seen by urology - no inpatient workup, outpatient follow up eliquis resumed COPD some scattered wheezing today, will start breathing treatments, po prednisone PAF continue metoprolol and eliquis DM continue home medications Chronic HFpEF no exacerbation lasix HTN continue home medications Time Spent with Patient Time attestation: Total time spent providing and/or coordinating discharge services: Discharge coordination time: Greater than 30 minutes Quality: Safe Use of Opioids Does Pt have an Active Cancer Diagnosis on the Problem List?: No Quality: Stroke Does the patient have a stroke diagnosis?: No Physical Exam Vital Signs: Vital Signs: Last Vital Signs Temp 97.4 F 11/07/21 07:27 Pulse 65 11/07/21 07:59 Resp 20 11/07/21 07:59 BP 154/53 H 11/07/21 04:00 Pulse Ox 99 11/07/21 07:27 BMI result Body Mass Index 43.2 Appearing in no acute distress head is normocephalic atraumatic eyes pupils are PERRLA sclera is anicteric mouth throat mucous membranes are intact and moist neck is supple no lymphadenopathy, no JVD noted lung sounds are clear to auscultation heart regular rate rhythm, clear S1, S2 positive bowel sounds, abdomen is soft, nontender neuro patient is alert x3, no focal deficits chronic rai catheter Full assist, mainly chair/bed bound DS: Data Data Completed and Pending Completed studies during hospitalization [Text1]: Procedures Excision of Large Intestine, Via Natural or Artificial Opening Endoscopic, Diagnostic (09/20/20) Labs on day of discharge: Laboratory Results - last 24 hr 11/06/21 11/06/21 11/06/21 12:02 16:27 19:43 POC Glucose 347 H 382 H* 373 H* 11/07/21 07:20 POC Glucose 248 H Preliminary micro results at discharge 11/02/21 Unknown Urine Culture - Preliminary Urine clean catch - Urine bojorquez top Escherichia coli 11/02/21 20:15 Blood Culture - Preliminary Blood - Venous No growth after 48 hours. 11/02/21 20:15 Blood Culture - Preliminary Blood - Venous No growth after 48 hours. Discharge Plan Discharge Anticipated Discharge Date/Time: 11/07/21 11:04 Patient Disposition: Home Health Service Discharge Diagnosis: Ecoli bacteria in urine, chronic SNEHA Hematuria Referrals: Ad Holcomb [Outside] - 1 Day (RESUMPTION OF CARE) Cherise Hamm MD [Primary Care Provider] - 1 Week Discharge Medications: New nitrofurantoin monohyd/m-cryst 100 mg Capsule 100 mg PO Q12H Qty: 14 0RF Continued simvastatin 40 mg tablet 40 mg PO BEDTIME 0RF gabapentin 300 mg capsule 300 mg PO BID 0RF lisinopril 5 mg tablet 5 mg PO DAILY 0RF insulin lispro [Humalog U-100 Insulin] 100 unit/mL solution See Protocol sliding scale dose subcut TIDAC 0RF Protocol: Insulin Correction Scale Less than or equal to 110 ---- Give (units): 0 111 to 150 Give (units): 0 151 to 200 Give (units): 2 201 to 250 Give (units): 4 251 to 300 Give (units): 6 301 to 350 Give (units): 8 Greater than 350 Give (units): 10 Call MD if Blood Glucose > : 350 albuterol sulfate [Proventil HFA] 90 mcg/actuation HFA aerosol inhaler 2 puff inhalation Q4-6H PRN (Reason: Wheezing) 0RF Eliquis 5 mg tablet 5 mg PO BID 0RF metformin 850 mg tablet 1 tab PO BIDWM 0RF Flovent Diskus 100 mcg/actuation blister with device 1 puff PO BID 0RF Lantus Solostar U-100 Insulin 100 unit/mL (3 mL) insulin pen 64 unit subcut DAILY 0RF aspirin 81 mg Tablet,Delayed Release (Dr/Ec) 81 mg PO DAILY 0RF metoprolol tartrate 50 mg tablet 1 tab PO BID 0RF Culturelle 10 billion cell Capsule 1 cap PO DAILY 0RF furosemide 40 mg tablet 1 tab PO BIDWM 0RF Discontinued cefuroxime axetil 500 mg tablet 500 mg PO BID Qty: 14 0RF amoxicillin-pot clavulanate 875-125 mg tablet 1 tab PO Q12H Qty: 14 0RF doxycycline hyclate 100 mg tablet 100 mg PO BID Qty: 14 0RF Discharge Orders: Discharge Order (Routine); Ordered 11/07/21 Ordered By: Angelita Jacobson Diet: advance to usual diet Activity on Discharge: As tolerated Stand Alone Forms: Patient Portal Discharge page Care Plan Goals: Resolution of symptoms Health Concerns: Ecoli bacteria in urine, chronic SNEHA Hematuria Plan of Treatment: Follow up with your primary care provider as needed Rai catheter management as per visiting nurse and urologist Continue medications as prescribed Assessment: See discharge summary
[2021-11-07 11:39] LABS: Glucose, Whole Blood 395 mg/dL (60-115)
[2021-11-07 12:00] VITALS: BP 143/61; PULSE 68; RESP 18; TEMP 36.4; O2SAT 90
== END 2021-11-07 16:04 | disposition home health service (06) | DRG 699 ==
LOC: HO.ED 22:19 → HO.EDOVER 22:22 → HO.S3 11-04 09:40
PROVIDERS: Family Medicine; Physician Assistant Medical; Admitting Provider Hospitalist; Emergency Provider Emergency Medicine; PCP Family Medicine; Visit Provider Nurse Practitioner Acute Care
DX: T83.511A Infection and inflammatory reaction due to indwelling urethral catheter, initial encounter (principal); N17.9 Acute kidney failure, unspecified; I50.32 Chronic diastolic (congestive) heart failure; Z68.41 Body mass index [BMI] 40.0-44.9, adult; N39.0 Urinary tract infection, site not specified; B96.20 Unspecified Escherichia coli [E. coli] as the cause of diseases classified elsewhere; I11.0 Hypertensive heart disease with heart failure; I48.0 Paroxysmal atrial fibrillation; R31.0 Gross hematuria; E78.5 Hyperlipidemia, unspecified; E66.01 Morbid (severe) obesity due to excess calories; E11.65 Type 2 diabetes mellitus with hyperglycemia; E11.40 Type 2 diabetes mellitus with diabetic neuropathy, unspecified; N31.9 Neuromuscular dysfunction of bladder, unspecified; J44.9 Chronic obstructive pulmonary disease, unspecified; Z20.822 Contact with and (suspected) exposure to COVID-19; Z87.440 Personal history of urinary (tract) infections; Z86.73 Personal history of transient ischemic attack (TIA), and cerebral infarction without residual deficits; Z90.01 Acquired absence of eye; Z79.4 Long term (current) use of insulin; Z79.01 Long term (current) use of anticoagulants; Z79.82 Long term (current) use of aspirin; Z79.84 Long term (current) use of oral hypoglycemic drugs; Z79.899 Other long term (current) drug therapy
CPT/HCPCS: 36415; 74176; 80048; 80076; 81001; 81003; 82947; 83605; 85025; 87040; 87086; 87088; 87635; 94640; 96361; 96374; 99285; J1956

== ENCOUNTER 2021-12-15 17:41 | Emergency (ER) | payer MEDICARE, MEDICAID, SELFPAY ==
--- NOTE | 2021-12-15 | ECG_ITS ---
Test Reason : SOB Blood Pressure : / mmHG Vent. Rate : 067 BPM Atrial Rate : 067 BPM P-R Int : 212 ms QRS Dur : 102 ms QT Int : 426 ms P-R-T Axes : 042 -03 077 degrees QTc Int : 450 ms Sinus rhythm with marked sinus arrhythmia with 1st degree A-V block Minimal voltage criteria for LVH, may be normal variant ( Daniel product ) Septal infarct (cited on or before 24-OCT-2021) Abnormal ECG When compared with ECG of 24-OCT-2021 19:16, Premature ventricular complexes are no longer Present Referred By: Generic ED Physician Electronically Signed By:STANLEY HUMPHREYS
--- NOTE | ~2021-12-15 | XR_ITS ---
EXAMINATION: XR CHEST CLINICAL INFORMATION: Shortness of breath COMPARISON: 10/24/2021 TECHNIQUE: Frontal view of the chest was obtained. FINDINGS: Heart size is normal. No infiltrates, effusions or lung masses are seen. Once again seen are mildly increased interstitial markings and severe degenerative changes in both shoulders. XR/XR chest 1V IMPRESSION: No acute intrathoracic disease. Mildly increased interstitial markings.
[2021-12-15 17:53] VITALS: BP 173/83; BP 177/70; PULSE 60; PULSE 66; RESP 18; TEMP 36.9; O2SAT 92; O2SAT 93; BMI 42.3
--- NOTE | 2021-12-15 18:25 | ED_ITS ---
HPI - SOB/Dyspnea General Chief Complaint: Dizziness Stated Complaint: Not feeling well Time Seen by Provider: 12/15/21 18:18 Source: patient Mode of arrival: EMS Limitations: no limitations History of Present Illness HPI Narrative: Patient is 71 years old bed-bound obese patient with past medical history of diabetes hypertension chronic rai with UTIs, asthma, COPD morbidly obese, CHF, recurrent leg cellulitis, history of sleep apnea not using CPAP comes here for increased shortness of breath today was saturating 93% at room air patient does get short of breath off has nebulizer machine which is not working and does not have any oxygen had COVID last month since then patient has been having increased shortness of breath and cough off and on. No fever no chills no abdominal pain or nausea no vomiting Related Data Home Medications Medication Instructions Recorded Confirmed albuterol sulfate 90 mcg/actuation 2 puff inhalation Q4-6H PRN 01/23/21 11/02/21 aerosol inhaler (Proventil HFA) Wheezing apixaban 5 mg tablet (Eliquis) 5 mg PO BID 01/23/21 11/02/21 gabapentin 300 mg capsule 300 mg PO BID 01/23/21 11/02/21 insulin lispro 100 unit/mL See Protocol subcut TIDAC 01/23/21 11/02/21 subcutaneous solution (Humalog U-100 Insulin) lisinopril 5 mg tablet 5 mg PO DAILY 01/23/21 11/02/21 simvastatin 40 mg tablet 40 mg PO BEDTIME 01/23/21 11/02/21 Lactobacillus rhamnosus GG 10 1 cap PO DAILY 10/24/21 11/02/21 billion cell capsule (Culturelle) aspirin 81 mg tablet,delayed 81 mg PO DAILY 10/24/21 11/02/21 release fluticasone propionate 100 1 puff PO BID 10/24/21 11/02/21 mcg/actuation blister powder for inhalation (Flovent Diskus) insulin glargine 100 unit/mL (3 64 unit subcut DAILY 10/24/21 11/02/21 mL) subcutaneous pen (Lantus Solostar U-100 Insulin) metformin 850 mg tablet 1 tab PO BIDWM 10/24/21 11/02/21 metoprolol tartrate 50 mg tablet 1 tab PO BID 10/24/21 11/02/21 furosemide 40 mg tablet 1 tab PO BIDWM 11/02/21 11/02/21 Previous Rx's Medication Instructions Recorded nitrofurantoin 100 mg PO Q12H #14 caps 11/07/21 monohydrate/macrocrystals 100 mg capsule cefpodoxime 200 mg tablet 200 mg PO BID #20 tabs 12/15/21 codeine 10 mg-guaifenesin 100 mg/5 10 ml PO Q6H PRN cough #237 mL 12/15/21 mL oral liquid doxycycline hyclate 100 mg tablet 100 mg PO BID #20 tabs 12/15/21 prednisone 20 mg tablet 40 mg PO DAILY #10 tabs 12/15/21 Allergies Allergy/AdvReac Type Severity Reaction Status Date / Time silver sulfadiazine Allergy Unknown UNK Verified 07/27/21 14:29 [From [facility]] Review of Systems Review of Systems: Yes all other systems are reviewed and are negative [facility] Past Medical History Medical History Aortic stenosis Bacteriuria Chronic heart failure with preserved ejection fraction (HFpEF) Chronic indwelling Rai catheter Chronic UTI Chronic UTI Congestive heart failure COPD (chronic obstructive pulmonary disease) Diabetes Diarrhea Glaucoma H/O: CVA (cerebrovascular accident) Hypertension Hypotonic neurogenic bladder Non-rheumatic aortic stenosis Obesity Osteoarthritis Paroxysmal atrial fibrillation Severe sepsis UTI (urinary tract infection) Surgical History H/O adenoidectomy H/O enucleation of left eyeball History of tonsillectomy Family History Family History Father No problems noted. Mother No problems noted. Social History Social History Household Members: None Housing: Apartment Do you presently have visiting nurse or other home services: Yes Unable to assess alcohol history related to: Unknown Alcohol intake: never Patient Tobacco Use Status: Never used Tobacco Second Hand Smoke Exposure: No Use of substances other than those prescribed or required for medical reasons: No Advance Directives: Yes Advance Directives on File: Yes Advance Directives Date on File: 07/09/20 service: No Current occupational status: disabled Physical Exam Vital Signs: Vital Signs: Last Vital Signs Temp 98.5 F 12/15/21 17:53 Pulse 82 12/15/21 21:29 Resp 18 12/15/21 21:29 BP 138/62 12/15/21 21:29 Pulse Ox 96 12/15/21 21:29 O2 Del Method 12/15/21 21:29 BMI result Body Mass Index 42.3 Appearance: Alert. Oriented X3. No acute distress. Obese patient Eyes: No pallor or icterus ENT: Pharynx normal. Oral Mucosa moist Neck: Normal inspection. Neck supple. CVS: Normal heart rate and rhythm. Pulses normal. Respiratory: No respiratory distress. Equal air entry bilateral, prolonged expiration with wheezing Abdomen: Soft and nontender. Bowel sounds are present, no mass palpable, no CVA tenderness indwelling Rai catheter Skin: Skin warm and dry. Normal skin color. Normal skin turgor. Extremities: No lower extremity edema. No calf tenderness Neuro: Oriented X 3. No motor deficit. No sensory deficit.No cerebellar signs , cranial nerves II-XII intact limited lower extremity movement with chronic skin changes MDM - SOB/Dyspnea MDM Narrative Medical decision making narrative: Patient morbidly obese COPD came for shortness of breath was saturating 94% on room air is a nebulizing treatment chest x-ray negative labs were stable discharge patient home on doxycycline, Cefpodoxime, prednisone advised to contin ue inhaler/nebulizing treatment Medical Records Attestation: I reviewed the patient's medical records. Lab Data Attestation: I reviewed the patient's lab results. Result diagrams: 12/15/21 20:31 12/15/21 20:31 Labs: Lab Results 12/15/21 12/15/21 12/15/21 Range/Units 20:31 20:31 20:31 WBC 8.1 (4.8-10.8) X10*3/uL RBC 4.97 (4.20-5.50) X10*6/uL Hgb 13.8 (12.0-16.0) g/dl Hct 42.4 (37.0-47.0) % MCV 85.3 (80.0-98.0) fL MCH 27.8 (27.0-33.0) pg MCHC 32.5 (31.0-35.0) g/dl RDW 15.4 (11.0-16.0) % Plt Count 171 (160-400) X10*3/uL MPV 10.8 (9.4-12.3) fL Immature Gran % (Auto) 0.1 (0.0-0.4) % Neut % (Auto) 55.0 (45-73) % Lymph % (Auto) 34.9 (20-40) % Alcorn % (Auto) 6.8 (2-11) % Eos % (Auto) 3.0 (0-4) % Baso % (Auto) 0.2 (0-2) % Lymph # (Auto) 2.8 (1.2-4.9) X10*3/uL Alcorn # (Auto) 0.6 (0.1-1.2) X10*3/uL Eos # (Auto) 0.2 (0.0-0.4) X10*3/uL Baso # (Auto) 0.0 (0.0-0.2) X10*3/uL Abs Immat Gran (auto) 0.01 (0.00-0.03) X10*3/uL Absolute Neuts (auto) 4.4 (2.0-8.3) x10*3/uL Absolute Nucleated RBC 0.000 (0.0-0.012) X10*3/uL Nucleated RBC % (auto) 0.0 (0.0-0.2) /100WBC Sodium 139 (135-145) mmol/L Potassium 3.5 D (3.3-5.1) mmol/L Chloride 97 (96-108) mmol/L Carbon Dioxide 29 (22-29) mmol/L Anion Gap 17 (12-20) BUN 13 (9-16) mg/dL Creatinine 0.70 (0.5-1.4) mg/dL Estim Creat Clear Calc 98.2 Estimated GFR > 60 Random Glucose 220 H (60-115) mg/dL Calcium 9.1 (8.4-10.2) mg/dL Total Bilirubin 0.4 (0.0-1.0) mg/dL AST 14 (5-31) U/L ALT 15 (0-31) U/L Alkaline Phosphatase 98 (39-117) U/L Total Protein 6.8 (6.5-8.0) g/dL Albumin 3.8 (3.5-5.0) g/dL COVID-19 (ERIKA) Negative (Negative) COVID-19 Clin Com See Note Influenza Type A (OSMAR) (Negative) Influenza Type B (OSMAR) (Negative) Influenza A & B Note 12/15/21 Range/Units 20:31 WBC (4.8-10.8) X10*3/uL RBC (4.20-5.50) X10*6/uL Hgb (12.0-16.0) g/dl Hct (37.0-47.0) % MCV (80.0-98.0) fL MCH (27.0-33.0) pg MCHC (31.0-35.0) g/dl RDW (11.0-16.0) % Plt Count (160-400) X10*3/uL MPV (9.4-12.3) fL Immature Gran % (Auto) (0.0-0.4) % Neut % (Auto) (45-73) % Lymph % (Auto) (20-40) % Alcorn % (Auto) (2-11) % Eos % (Auto) (0-4) % Baso % (Auto) (0-2) % Lymph # (Auto) (1.2-4.9) X10*3/uL Alcorn # (Auto) (0.1-1.2) X10*3/uL Eos # (Auto) (0.0-0.4) X10*3/uL Baso # (Auto) (0.0-0.2) X10*3/uL Abs Immat Gran (auto) (0.00-0.03) X10*3/uL Absolute Neuts (auto) (2.0-8.3) x10*3/uL Absolute Nucleated RBC (0.0-0.012) X10*3/uL Nucleated RBC % (auto) (0.0-0.2) /100WBC Sodium (135-145) mmol/L Potassium (3.3-5.1) mmol/L Chloride (96-108) mmol/L Carbon Dioxide (22-29) mmol/L Anion Gap (12-20) BUN (9-16) mg/dL Creatinine (0.5-1.4) mg/dL Estim Creat Clear Calc Estimated GFR Random Glucose (60-115) mg/dL Calcium (8.4-10.2) mg/dL Total Bilirubin (0.0-1.0) mg/dL AST (5-31) U/L ALT (0-31) U/L Alkaline Phosphatase (39-117) U/L Total Protein (6.5-8.0) g/dL Albumin (3.5-5.0) g/dL COVID-19 (ERIKA) (Negative) COVID-19 Clin Com Influenza Type A (OSMAR) Negative (Negative) Influenza Type B (OSMAR) Negative (Negative) Influenza A & B Note See Note Discharge Plan Discharge Clinical Impression: Acute bronchitis Patient Disposition: Home, Self-Care Instructions: Acute Bronchitis (ED) Additional Instructions: Continue to take your medications Increase your Lantus insulin to 70 units and adjust your sliding scale according to blood glucose as it may go high with prednisone Antibiotic and prednisone as prescribed Prescriptions: New codeine-guaifenesin 10-100 mg/5 mL liquid 10 ml PO Q6H PRN (Reason: cough) Qty: 237 0RF cefpodoxime 200 mg tablet 200 mg PO BID Qty: 20 0RF Rx Instructions: must administer with a meal/food prednisone 20 mg tablet 40 mg PO DAILY Qty: 10 0RF doxycycline hyclate 100 mg tablet 100 mg PO BID Qty: 20 0RF No Action simvastatin 40 mg tablet 40 mg PO BEDTIME gabapentin 300 mg capsule 300 mg PO BID lisinopril 5 mg tablet 5 mg PO DAILY insulin lispro [Humalog U-100 Insulin] 100 unit/mL solution See Protocol subcut TIDAC Protocol: Insulin Correction Scale Less than or equal to 110 ---- Give (units): 0 111 to 150 Give (units): 0 151 to 200 Give (units): 2 201 to 250 Give (units): 4 251 to 300 Give (units): 6 301 to 350 Give (units): 8 Greater than 350 Give (units): 10 Call MD if Blood Glucose > : 350 albuterol sulfate [Proventil HFA] 90 mcg/actuation HFA aerosol inhaler 2 puff inhalation Q4-6H PRN (Reason: Wheezing) Eliquis 5 mg tablet 5 mg PO BID metformin 850 mg tablet 1 tab PO BIDWM Flovent Diskus 100 mcg/actuation blister with device 1 puff PO BID Lantus Solostar U-100 Insulin 100 unit/mL (3 mL) insulin pen 64 unit subcut DAILY aspirin 81 mg Tablet,Delayed Release (Dr/Ec) 81 mg PO DAILY metoprolol tartrate 50 mg tablet 1 tab PO BID Culturelle 10 billion cell Capsule 1 cap PO DAILY furosemide 40 mg tablet 1 tab PO BIDWM nitrofurantoin monohyd/m-cryst 100 mg Capsule 100 mg PO Q12H Qty: 14 0RF
[2021-12-15 18:39] VITALS: PULSE 64; RESP 24; O2SAT 99
[2021-12-15] MEDS: Albuterol Sulfate (0.083%) 2.5 MG/3 ML VIAL.NEB 5 MG INHALE (18:39)
[2021-12-15] MEDS: Albuterol/Iprat 2.5/0.5MG 3 ML AMPUL.NEB INHALE (18:39)
[2021-12-15 20:36] LABS: MANUAL DIFF FLAG NO
[2021-12-15 20:37] LABS: Basophils Percent Auto 0.2 % (0-2); Eosinophils Absolute Auto 0.2 X10*3/uL (0.0-0.4); Hematocrit 42.4 % (37.0-47.0); Hemoglobin 13.8 g/dl (12.0-16.0); Imm Gran Abs Auto 0.01 X10*3/uL (0.00-0.03); Imm Gran Pct Auto 0.1 % (0.0-0.4); Lymphocytes Absolute Auto 2.8 X10*3/uL (1.2-4.9); Lymphocytes Percent Auto 34.9 % (20-40); Mean Corpuscular HGB Conc 32.5 g/dl (31.0-35.0); Mean Corpuscular Hemoglobin 27.8 pg (27.0-33.0); Mean Corpuscular Volume 85.3 fL (80.0-98.0); Mean Platelet Volume 10.8 fL (9.4-12.3); Monocytes Absolute Auto 0.6 X10*3/uL (0.1-1.2); Monocytes Percent Auto 6.8 % (2-11); Neutrophils Absolute Auto 4.4 x10*3/uL (2.0-8.3); Platelet Count 171 X10*3/uL (160-400); Red Blood Count 4.97 X10*6/uL (4.20-5.50); Red Cell Distribution Width 15.4 % (11.0-16.0); White Blood Count 8.1 X10*3/uL (4.8-10.8)
[2021-12-15 20:53] LABS: Alanine Aminotransferase 15 U/L (0-31); Albumin Level 3.8 g/dL (3.5-5.0); Alkaline Phosphatase 98 U/L (39-117); Anion Gap 17 (12-20); Aspartate Amino Transferase 14 U/L (5-31); Bilirubin Total 0.4 mg/dL (0.0-1.0); Blood Urea Nitrogen 13 mg/dL (9-16); Calcium 9.1 mg/dL (8.4-10.2); Carbon Dioxide 29 mmol/L (22-29); Chloride 97 mmol/L (96-108); Creatinine Clr Calc Pharmacy 98.2; Estimated Glomerular Filt Rate > 60; Glucose Random 220 mg/dL (60-115); Potassium 3.5 mmol/L (3.3-5.1); Sodium 139 mmol/L (135-145); Total Protein 6.8 g/dL (6.5-8.0)
[2021-12-15 20:54] LABS: COVID-19 Test Negative (Negative); IDNOW Serial# 16C4AD1C; Influenza A Negative (Negative); Influenza B2 Negative (Negative)
[2021-12-15 21:29] VITALS: BP 138/62; PULSE 82; RESP 18; O2SAT 96
--- NOTE | 2021-12-15 21:34 | PC.NURSE ---
pt a&ox3, vss, pt reports generalized pain - chronic, pt is bed bound at home with visiting care takers. pt reports recent UTI, now resolved, recent yeast infection. rai catheter in place. 1500ml urine emptied. no new orders at this time.
[2021-12-15] MEDS: predniSONE 20 MG TABLET 60 MG PO (21:58)
[2021-12-15] MEDS: guaiFEN/Codeine SF 200/20/10ML 10 ML LIQUID 5 ML PO (22:02)
== END 2021-12-16 01:31 | disposition home or self-care (01) ==
PROVIDERS: Emergency Provider Internal Medicine; PCP Family Medicine
DX: J20.9 Acute bronchitis, unspecified (principal); R42 Dizziness and giddiness; Z20.822 Contact with and (suspected) exposure to COVID-19; E11.9 Type 2 diabetes mellitus without complications; I10 Essential (primary) hypertension; Z79.4 Long term (current) use of insulin; Z79.82 Long term (current) use of aspirin
CPT/HCPCS: 71045; 80053; 85025; 87502; 87635; 93005; 94640; 94644; 99284

== ENCOUNTER 2022-01-24 05:00 | Outpatient (REF) | payer MEDICARE, MEDICAID, SELFPAY | END 2022-01-24 05:01 | disposition home or self-care (01) | LOC: HO.MMNH2L 05:00 | PROVIDERS: Visit Provider Family Medicine | DX: Z13.89 Encounter for screening for other disorder (principal) ==

== ENCOUNTER 2022-02-10 22:09 | Emergency (ER) | payer MEDICARE, MEDICAID, SELFPAY ==
[2022-02-10 22:30] VITALS: BP 146/62; BP 150/80; PULSE 64; PULSE 70; RESP 22; O2SAT 95; O2SAT 97; BMI 43.9
--- NOTE | 2022-02-10 22:46 | ED.FEMALEGU ---
HPI - Female Genitourinary General Chief complaint: Urogenital-Female Stated complaint: Catheter needs to be replaced Time Seen by Provider: 02/10/22 22:46 History of Present Illness HPI Narrative: Patient is a 71-year-old female presents today with her Molina accidentally dislodged. Patient denies any other complaints. She is from home. Related Data Home Medications Medication Instructions Recorded Confirmed albuterol sulfate 90 mcg/actuation 2 puff inhalation Q4-6H PRN 01/23/21 11/02/21 aerosol inhaler (Proventil HFA) Wheezing apixaban 5 mg tablet (Eliquis) 5 mg PO BID 01/23/21 11/02/21 gabapentin 300 mg capsule 300 mg PO BID 01/23/21 11/02/21 insulin lispro 100 unit/mL See Protocol subcut TIDAC 01/23/21 11/02/21 subcutaneous solution (Humalog U-100 Insulin) lisinopril 5 mg tablet 5 mg PO DAILY 01/23/21 11/02/21 simvastatin 40 mg tablet 40 mg PO BEDTIME 01/23/21 11/02/21 Lactobacillus rhamnosus GG 10 1 cap PO DAILY 10/24/21 11/02/21 billion cell capsule (Culturelle) aspirin 81 mg tablet,delayed 81 mg PO DAILY 10/24/21 11/02/21 release fluticasone propionate 100 1 puff PO BID 10/24/21 11/02/21 mcg/actuation blister powder for inhalation (Flovent Diskus) insulin glargine 100 unit/mL (3 64 unit subcut DAILY 10/24/21 11/02/21 mL) subcutaneous pen (Lantus Solostar U-100 Insulin) metformin 850 mg tablet 1 tab PO BIDWM 10/24/21 11/02/21 metoprolol tartrate 50 mg tablet 1 tab PO BID 10/24/21 11/02/21 furosemide 40 mg tablet 1 tab PO BIDWM 11/02/21 11/02/21 Previous Rx's Medication Instructions Recorded nitrofurantoin 100 mg PO Q12H #14 caps 11/07/21 monohydrate/macrocrystals 100 mg capsule cefpodoxime 200 mg tablet 200 mg PO BID #20 tabs 12/15/21 codeine 10 mg-guaifenesin 100 mg/5 10 ml PO Q6H PRN cough #237 mL 12/15/21 mL oral liquid doxycycline hyclate 100 mg tablet 100 mg PO BID #20 tabs 12/15/21 prednisone 20 mg tablet 40 mg PO DAILY #10 tabs 12/15/21 Allergies Allergy/AdvReac Type Severity Reaction Status Date / Time silver sulfadiazine Allergy Unknown UNK Verified 02/10/22 22:30 [From [facility]] Review of Systems Review of Systems: No chest pain or shortness breath no nausea no vomiting Yes all other systems are reviewed and are negative [facility] Past Medical History Attestation statement: The following information was validated with the patient. Medical History Aortic stenosis Bacteriuria Chronic heart failure with preserved ejection fraction (HFpEF) Chronic indwelling Molina catheter Chronic UTI Chronic UTI Congestive heart failure COPD (chronic obstructive pulmonary disease) Diabetes Diarrhea Glaucoma H/O: CVA (cerebrovascular accident) Hypertension Hypotonic neurogenic bladder Non-rheumatic aortic stenosis Obesity Osteoarthritis Paroxysmal atrial fibrillation Severe sepsis UTI (urinary tract infection) Surgical History H/O adenoidectomy H/O enucleation of left eyeball History of tonsillectomy Family History Family History Father No problems noted. Mother No problems noted. Social History Social History Household Members: None Housing: Apartment Do you presently have visiting nurse or other home services: Yes Unable to assess alcohol history related to: Unknown Alcohol intake: never Patient Tobacco Use Status: Never used Tobacco Second Hand Smoke Exposure: No Advance Directives: Yes Advance Directives on File: Yes Advance Directives Date on File: 07/09/20 service: No Current occupational status: disabled Physical Exam Vital Signs: Vital Signs: Last Vital Signs Pulse 64 02/10/22 22:30 Resp 22 H 02/10/22 22:30 BP 146/62 H 02/10/22 22:30 Pulse Ox 95 02/10/22 22:30 O2 Del Method 02/10/22 22:30 BMI result Body Mass Index 43.9 Appearance: Alert. Oriented X3. No acute distress. Eyes: Pupils equal, round and reactive to light. ENT: Pharynx normal. Neck: Normal inspection. Neck supple. No lymph nodes noted. No crepitus CVS: Normal heart rate and rhythm. Pulses normal. Normal S1 and S2 Respiratory: No respiratory distress. Breath sounds normal. No Wheezing. No rales Abdomen: Soft and nontender. No rigidity. No distention. good BS x4 Skin: Skin warm and dry. Normal skin color. Normal skin turgor. Extremities: No lower extremity edema. Neurovascular intact to all extremities. No Lacerations. No Rash Neuro: Oriented X 3. No motor deficit. No sensory deficit. Moving all extermities. No slurred speech MDM - Female Genitourinary MDM Narrative Medical decision making narrative: Well appearing not acute distress. Will replace the Molina catheter. Will have patient follow-up on an outpatient basis Molina replaced by nursing. Patient insists that she has a 25 [place] Molina with 30 cc balloon. The best we can find in the emergency department since 24 [place] Molina with a 30 cc balloon. Patient being discharged home in stable condition. Discharge Plan Discharge Clinical Impression: Dislodged Molina catheter Patient Disposition: Home, Self-Care Instructions: Molina Catheter Placement and Care (ED) Prescriptions: No Action simvastatin 40 mg tablet 40 mg PO BEDTIME gabapentin 300 mg capsule 300 mg PO BID lisinopril 5 mg tablet 5 mg PO DAILY insulin lispro [Humalog U-100 Insulin] 100 unit/mL solution See Protocol subcut TIDAC Protocol: Insulin Correction Scale Less than or equal to 110 ---- Give (units): 0 111 to 150 Give (units): 0 151 to 200 Give (units): 2 201 to 250 Give (units): 4 251 to 300 Give (units): 6 301 to 350 Give (units): 8 Greater than 350 Give (units): 10 Call MD if Blood Glucose > : 350 albuterol sulfate [Proventil HFA] 90 mcg/actuation HFA aerosol inhaler 2 puff inhalation Q4-6H PRN (Reason: Wheezing) Eliquis 5 mg tablet 5 mg PO BID metformin 850 mg tablet 1 tab PO BIDWM Flovent Diskus 100 mcg/actuation blister with device 1 puff PO BID Lantus Solostar U-100 Insulin 100 unit/mL (3 mL) insulin pen 64 unit subcut DAILY aspirin 81 mg Tablet,Delayed Release (Dr/Ec) 81 mg PO DAILY metoprolol tartrate 50 mg tablet 1 tab PO BID Culturelle 10 billion cell Capsule 1 cap PO DAILY furosemide 40 mg tablet 1 tab PO BIDWM nitrofurantoin monohyd/m-cryst 100 mg Capsule 100 mg PO Q12H Qty: 14 0RF codeine-guaifenesin 10-100 mg/5 mL liquid 10 ml PO Q6H PRN (Reason: cough) Qty: 237 0RF cefpodoxime 200 mg tablet 200 mg PO BID Qty: 20 0RF Rx Instructions: must administer with a meal/food prednisone 20 mg tablet 40 mg PO DAILY Qty: 10 0RF doxycycline hyclate 100 mg tablet 100 mg PO BID Qty: 20 0RF
--- NOTE | 2022-02-10 22:57 | PC.NURSE ---
PATIENT CAME IN SOAKED IN URINE ,INCONTINENCE CARE GIVEN , PATIENT WAS CHANGE INTO HOSPITAL ATTIRE .
--- NOTE | 2022-02-11 02:16 | PC.NURSE ---
24F rai catheter placed, balloon filled with 35ml water, pt tolerated well. pt reports that she usually uses a 26F with 45mL, pt is aware that rai is different size.
--- NOTE | 2022-02-11 02:35 | PC.NURSE ---
EMS at bedside for transport.
== END 2022-02-11 02:36 | disposition home or self-care (01) ==
PROVIDERS: Emergency Provider Emergency Medicine Emergency Medical Services; PCP Family Medicine
DX: T83.028A Displacement of other urinary catheter, initial encounter (principal); Y73.8 Miscellaneous gastroenterology and urology devices associated with adverse incidents, not elsewhere classified; Y92.9 Unspecified place or not applicable; E11.9 Type 2 diabetes mellitus without complications; I10 Essential (primary) hypertension; I48.0 Paroxysmal atrial fibrillation; E66.9 Obesity, unspecified; Z68.41 Body mass index [BMI] 40.0-44.9, adult; Z79.01 Long term (current) use of anticoagulants; Z79.4 Long term (current) use of insulin; Z79.899 Other long term (current) drug therapy
CPT/HCPCS: 51702; 99282; 99284

== ENCOUNTER 2022-03-02 22:11 | Emergency (ER) | payer MEDICARE, MEDICAID, SELFPAY ==
[2022-03-02 22:27] VITALS: BP 148/60; PULSE 89; RESP 16; TEMP 36.7; O2SAT 95; BMI 41.6
--- NOTE | 2022-03-02 22:31 | ED.NAVMDI ---
HPI - Nausea/Vomiting/Diarrhea General Chief complaint: Nausea/Vomiting/Diarrhea Stated complaint: diarrhea Time Seen by Provider: 03/02/22 22:31 Source: patient Mode of arrival: EMS Limitations: no limitations History of Present Illness HPI Narrative: Patient is 71 years old with history of hypertension diabetes paroxysmal atrial fibrillation COPD ESBL UTI, SNEHA came to the ER by EMS for having diarrhea x1 just prior to arrival after supper watery nonbloody with abdominal cramps no abdominal pain no fever or chills Related Data Home Medications Medication Instructions Recorded Confirmed albuterol sulfate 90 mcg/actuation 2 puff inhalation Q4-6H PRN 01/23/21 11/02/21 aerosol inhaler (Proventil HFA) Wheezing apixaban 5 mg tablet (Eliquis) 5 mg PO BID 01/23/21 11/02/21 gabapentin 300 mg capsule 300 mg PO BID 01/23/21 11/02/21 insulin lispro 100 unit/mL See Protocol subcut TIDAC 01/23/21 11/02/21 subcutaneous solution (Humalog U-100 Insulin) lisinopril 5 mg tablet 5 mg PO DAILY 01/23/21 11/02/21 simvastatin 40 mg tablet 40 mg PO BEDTIME 01/23/21 11/02/21 Lactobacillus rhamnosus GG 10 1 cap PO DAILY 10/24/21 11/02/21 billion cell capsule (Culturelle) aspirin 81 mg tablet,delayed 81 mg PO DAILY 10/24/21 11/02/21 release fluticasone propionate 100 1 puff PO BID 10/24/21 11/02/21 mcg/actuation blister powder for inhalation (Flovent Diskus) insulin glargine 100 unit/mL (3 64 unit subcut DAILY 10/24/21 11/02/21 mL) subcutaneous pen (Lantus Solostar U-100 Insulin) metformin 850 mg tablet 1 tab PO BIDWM 10/24/21 11/02/21 metoprolol tartrate 50 mg tablet 1 tab PO BID 10/24/21 11/02/21 furosemide 40 mg tablet 1 tab PO BIDWM 11/02/21 11/02/21 Previous Rx's Medication Instructions Recorded nitrofurantoin 100 mg PO Q12H #14 caps 11/07/21 monohydrate/macrocrystals 100 mg capsule cefpodoxime 200 mg tablet 200 mg PO BID #20 tabs 12/15/21 codeine 10 mg-guaifenesin 100 mg/5 10 ml PO Q6H PRN cough #237 mL 12/15/21 mL oral liquid doxycycline hyclate 100 mg tablet 100 mg PO BID #20 tabs 12/15/21 prednisone 20 mg tablet 40 mg PO DAILY #10 tabs 12/15/21 nitrofurantoin 100 mg PO BID #20 caps 03/02/22 monohydrate/macrocrystals 100 mg capsule (Macrobid) Allergies Allergy/AdvReac Type Severity Reaction Status Date / Time silver sulfadiazine Allergy Unknown UNK Verified 02/10/22 22:30 [[facility] Review of Systems Review of Systems: Yes all other systems are reviewed and are negative FORMERLY [facility], [facility] Past Medical History Medical History Aortic stenosis Bacteriuria Chronic heart failure with preserved ejection fraction (HFpEF) Chronic indwelling Molina catheter Chronic UTI Chronic UTI Congestive heart failure COPD (chronic obstructive pulmonary disease) Diabetes Diarrhea Glaucoma H/O: CVA (cerebrovascular accident) Hypertension Hypotonic neurogenic bladder Non-rheumatic aortic stenosis Obesity Osteoarthritis Paroxysmal atrial fibrillation Severe sepsis UTI (urinary tract infection) Surgical History H/O adenoidectomy H/O enucleation of left eyeball History of tonsillectomy Family History Family History Father No problems noted. Mother No problems noted. Social History Social History Household Members: None Housing: Apartment Do you presently have visiting nurse or other home services: Yes Unable to assess alcohol history related to: Unknown Alcohol intake: never Patient Tobacco Use Status: Never used Tobacco Second Hand Smoke Exposure: No Advance Directives: Yes Advance Directives on File: Yes Advance Directives Date on File: 07/09/20 service: No Current occupational status: disabled Physical Exam Vital Signs: Vital Signs: Last Vital Signs Temp 98.2 F 03/02/22 23:15 Pulse 83 03/02/22 23:15 Resp 16 03/02/22 23:15 BP 148/50 H 03/02/22 23:15 Pulse Ox 94 03/02/22 23:15 O2 Del Method 03/02/22 23:15 BMI result Body Mass Index 41.6 Appearance: Alert. Oriented X3. No acute distress. Obese Eyes: No pallor or icterus ENT: Pharynx normal. Oral Mucosa moist Neck: Normal inspection. Neck supple. CVS: Normal heart rate and rhythm. Pulses normal. Respiratory: No respiratory distress. Equal air entry bilateral, no wheezing/rales/rhonchi Abdomen: Soft and nontender. Bowel sounds are present, no mass palpable, no CVA tenderness Skin: Skin warm and dry. Normal skin color. Normal skin turgor. Extremities: No lower extremity edema. No calf tenderness Neuro: Oriented X 3. No motor deficit. MDM - Nausea/Vomiting/Diarrhea MDM Narrative Medical decision making narrative: Patient with chronic indwelling Molina catheter with history of ESBL in 10/29 had 1 loose bowel movement no fever no chills no signs of sepsis vital stable UA showed wbc's because of the history will start patient on Macrobid advised to follow-up with PCP in report to the ER if fever not feeling good/vomiting Differential Diagnosis Differential diagnosis: Likely gastroenteritis Lab Data Attestation: I reviewed the patient's lab results. Labs: Lab Results 03/02/22 Range/Units 23:01 Urine Color Yellow Urine Appearance Cloudy Urine pH 5.5 (5.0-8.0) Ur Specific [place] <= 1.005 (1.005-1.025) Urine Protein Negative (Neg-Trace) mg/dL Urine Glucose (UA) 250 H (Negative) mg/dL Urine Ketones Negative (Negative) mg/dL Urine Blood Small (1+) H (Negative) Urine Nitrite Negative (Negative) Ur Leukocyte Esterase Large (3+) H (Negative) Urine RBC 3-5 H (0-2) /HPF Urine WBC 21-50 H (0-5) /HPF Ur Squamous Epith Cells 0-2 (0-2) /HPF Urine Bacteria 4+ (None Seen) Hyaline Casts 0-2 (0-2) /LPF Discharge Plan Discharge Clinical Impression: Diarrhea, UTI (urinary tract infection) Patient Disposition: Home, Self-Care Instructions: Urinary Tract Infection in Women (ED), Acute Diarrhea (ED) Additional Instructions: Drink plenty of fluids Antibiotic as advised for urinary tract infection Report to the ER if fever/vomiting /worsening of diarrhea Prescriptions: New nitrofurantoin monohyd/m-cryst [Macrobid] 100 mg capsule 100 mg PO BID Qty: 20 0RF Rx Instructions: must administer with a meal/food No [facility] simvastatin 40 mg tablet 40 mg PO BEDTIME gabapentin 300 mg capsule 300 mg PO BID lisinopril 5 mg tablet 5 mg PO DAILY insulin lispro [Humalog U-100 Insulin] 100 unit/mL solution See Protocol subcut TIDAC Protocol: Insulin Correction Scale Less than or equal to 110 ---- Give (units): 0 111 to 150 Give (units): 0 151 to 200 Give (units): 2 201 to 250 Give (units): 4 251 to 300 Give (units): 6 301 to 350 Give (units): 8 Greater than 350 Give (units): 10 Call MD if Blood Glucose > : 350 albuterol sulfate [Proventil HFA] 90 mcg/actuation HFA aerosol inhaler 2 puff inhalation Q4-6H PRN (Reason: Wheezing) Eliquis 5 mg tablet 5 mg PO BID metformin 850 mg tablet 1 tab PO BIDWM Flovent Diskus 100 mcg/actuation blister with device 1 puff PO BID Lantus Solostar U-100 Insulin 100 unit/mL (3 mL) insulin pen 64 unit subcut DAILY aspirin 81 mg Tablet,Delayed Release (Dr/Ec) 81 mg PO DAILY metoprolol tartrate 50 mg tablet 1 tab PO BID Culturelle 10 billion cell Capsule 1 cap PO DAILY furosemide 40 mg tablet 1 tab PO BIDWM nitrofurantoin monohyd/m-cryst 100 mg Capsule 100 mg PO Q12H Qty: 14 0RF codeine-guaifenesin 10-100 mg/5 mL liquid 10 ml PO Q6H PRN (Reason: cough) Qty: 237 0RF cefpodoxime 200 mg tablet 200 mg PO BID Qty: 20 0RF Rx Instructions: must administer with a meal/food prednisone 20 mg tablet 40 mg PO DAILY Qty: 10 0RF doxycycline hyclate 100 mg tablet 100 mg PO BID Qty: 20 0RF
[2022-03-02 23:14] LABS: Appearance Urine Cloudy; Color Urine Yellow; Glucose Urine UA 250 mg/dL (Negative); Leukocyte Esterase Urine Large (3+) (Negative); Nitrite Urine Negative (Negative); PH 5.5 (5.0-8.0); Specific Gravity - Urine <= 1.005 (1.005-1.025); Urine Blood Small (1+) (Negative); Urine Ketones Negative (Negative); Urine Protein Negative (Neg-Trace)
--- NOTE | 2022-03-02 23:14 | PC.NURSE ---
PROVIDER SAID NOT TO GET PATIENTS BLOOD WORK ,JUST A URINE SAMPLE
[2022-03-02 23:15] VITALS: BP 148/50; PULSE 83; RESP 16; TEMP 36.8; O2SAT 94
[2022-03-02 23:24] LABS: Bacteria Urine 4+ (None Seen); Hyaline Casts Urine 0-2 /LPF (0-2); Squamous Epithelial Cell Urine 0-2 /HPF (0-2); UACC Culture Trigger YES; WBC Urine 21-50 /HPF (0-5)
[2022-03-03] MEDS: Nitrofurantoin Monohyd/M-Cryst 100 MG CAPSULE PO (00:10)
--- NOTE | 2022-03-03 00:40 | PC.NURSE ---
Pt. had an episode of diarrhea, pt. cleaned and changed and now resting comfortably in bed.
[2022-03-03 02:00] VITALS: BP 136/70; PULSE 64; RESP 16; TEMP 36.7; O2SAT 94
[2022-03-03 04:00] VITALS: BP 134/57; PULSE 63; RESP 16; TEMP 36.1; O2SAT 94
--- NOTE | 2022-03-03 04:40 | PC.NURSE ---
PATIENT WAS INC OF 2 LARGE BOWEL MOVEMENT ,CARE GIVEN ,LINEN CHANGE ,PATIENT BACK TO SLEEP .
--- NOTE | 2022-03-03 05:01 | PC.NURSE ---
Approximately 0330, patient had another episode of diarrhea. Bed sheets and clothing changed and pt. cleaned. Pt. resting comfortably in bed.
[2022-03-03 06:00] VITALS: BP 130/61; PULSE 76; RESP 16; TEMP 36.2; O2SAT 94
--- NOTE | 2022-03-03 06:32 | PC.NURSE ---
call out to [facility] @[phone] for transport back home. [facility] will be here for [address]37 coal picker
--- NOTE | 2022-03-03 07:43 | PC.NURSE ---
awake and alert, offers no new complaints, head of bed raised. poc checked. awaiting transport home. pt aware.
[2022-03-03 07:45] LABS: Glucose, Whole Blood 226 mg/dL (60-115)
--- NOTE | 2022-03-03 09:14 | PC.NURSE ---
per healthcare provider on pts phone, pt will not have anyone at home to safely assist pt with adls until approx [phone] this afternoon. rail transportation tabeler aware and planning accordingly.
[2022-03-03 13:46] LABS: Glucose, Whole Blood 210 mg/dL (60-115)
--- NOTE | 2022-03-03 21:34 | PC.NURSE ---
RN received a call from [facility] regarding this patient. Per [facility] rep; pt and ems at the patient's home, pt off loaded from stretcher however there was not anyone home (as discussed). [facility] was calling to confirm whether or not the pt could be left at the home alone. This RN called daughter Stefany at [phone] who answered and confirmed that she was in fact in route to the pt's home and that is was okay for EMS to leave the pt at the house as she would be arriving shortly. Daughter confirmed taht she already spoke to the pt and all terrain vehicle racer at her home and relayed the same message. [facility] made aware.
== END 2022-03-03 21:04 | disposition home or self-care (01) ==
PROVIDERS: Emergency Provider Internal Medicine; PCP Family Medicine
DX: N39.0 Urinary tract infection, site not specified (principal); R11.2 Nausea with vomiting, unspecified; R19.7 Diarrhea, unspecified; Z79.899 Other long term (current) drug therapy
CPT/HCPCS: 81001; 82947; 87086; 99284

== ENCOUNTER → 2022-03-09 09:58 | Outpatient (BNVA) | payer MEDICARE, MEDICAID, SELFPAY | PROVIDERS: PCP Family Medicine; Visit Provider Internal Medicine | DX: I35.0 Nonrheumatic aortic (valve) stenosis (principal); I25.10 Atherosclerotic heart disease of native coronary artery without angina pectoris; I48.0 Paroxysmal atrial fibrillation; I50.32 Chronic diastolic (congestive) heart failure; I10 Essential (primary) hypertension; E66.01 Morbid (severe) obesity due to excess calories; E11.65 Type 2 diabetes mellitus with hyperglycemia; Z99.3 Dependence on wheelchair | CPT/HCPCS: 99212 ==

== ENCOUNTER 2022-03-17 03:42 | Inpatient (IN) | payer MEDICARE, MEDICAID, SELFPAY ==
[2022-03-17] VITALS (10 sets, daily range): BP systolic 95–152; BP diastolic 61–86; PULSE 67–87; RESP 14–30; TEMP 36.8; O2SAT 92–98; BMI 46.0
--- NOTE | ~2022-03-17 | XR_ITS ---
EXAMINATION: XR CHEST CLINICAL INFORMATION: Shortness of breath COMPARISON: 12/15/2021 TECHNIQUE: Frontal view of the chest was obtained. FINDINGS: Lung volumes are symmetric. There is prominence of the pulmonary vasculature bilaterally. No focal consolidation is seen. No pneumothorax or significant pleural effusion. The cardiomediastinal contour is unremarkable. Chronic degenerative changes again noted in the shoulders. XR/XR chest 1V IMPRESSION: Prominent pulmonary vasculature suggesting a degree of congestion in the proper clinical setting.
--- NOTE | 2022-03-17 04:07 | ED_ITS ---
HPI - SOB/Dyspnea General Chief Complaint: Dyspnea Stated Complaint: sob Time Seen by Provider: 03/17/22 04:07 Source: patient Mode of arrival: EMS Limitations: no limitations History of Present Illness HPI Narrative: Patient has history of hypertension diabetes paroxysmal AFib COPD SNEHA, asthma brought by EMS for acute shortness of breath just happened prior to arrival. Patient is saturating 98% at 4 L , at room air saturating 83-84% patient does not have any oxygen at home used to be on CPAP about 20 years ago which she does not have any more. patient ran out of her albuterol inhaler no fever no chills occasional dry cough patient is complaining of discharge and matting of left eye today Related Data Home Medications Medication Instructions Recorded Confirmed albuterol sulfate 90 mcg/actuation 2 puff inhalation Q4-6H PRN 01/23/21 03/09/22 aerosol inhaler (Proventil HFA) Wheezing apixaban 5 mg tablet (Eliquis) 5 mg PO BID 01/23/21 03/09/22 gabapentin 300 mg capsule 300 mg PO BID 01/23/21 03/09/22 insulin lispro 100 unit/mL See Protocol subcut TIDAC 01/23/21 03/09/22 subcutaneous solution (Humalog U-100 Insulin) lisinopril 5 mg tablet 5 mg PO DAILY 01/23/21 03/09/22 simvastatin 40 mg tablet 40 mg PO BEDTIME 01/23/21 03/09/22 Lactobacillus rhamnosus GG 10 1 cap PO DAILY 10/24/21 03/09/22 billion cell capsule (Culturelle) aspirin 81 mg tablet,delayed 81 mg PO DAILY 10/24/21 03/09/22 release fluticasone propionate 100 1 puff PO BID 10/24/21 03/09/22 mcg/actuation blister powder for inhalation (Flovent Diskus) insulin glargine 100 unit/mL (3 64 unit subcut DAILY 10/24/21 03/09/22 mL) subcutaneous pen (Lantus Solostar U-100 Insulin) furosemide 40 mg tablet 40 mg PO BID 03/09/22 03/09/22 metformin 850 mg tablet 850 mg PO BIDWM 03/09/22 03/09/22 metoprolol tartrate 50 mg tablet 50 mg PO BID 03/09/22 03/09/22 Previous Rx's Medication Instructions Recorded nitrofurantoin 100 mg PO BID #20 caps 03/02/22 monohydrate/macrocrystals 100 mg capsule (Macrobid) Allergies Allergy/AdvReac Type Severity Reaction Status Date / Time silver sulfadiazine Allergy Unknown UNK Verified 03/17/22 04:34 [From [facility]] Review of Systems Review of Systems: Yes all other systems are reviewed and are negative FORMERLY [facility] Past Medical History Medical History Aortic stenosis Bacteriuria Chronic heart failure with preserved ejection fraction (HFpEF) Chronic indwelling Molina catheter Chronic UTI Chronic UTI Congestive heart failure COPD (chronic obstructive pulmonary disease) Diabetes Diarrhea Glaucoma H/O: CVA (cerebrovascular accident) Hypertension Hypotonic neurogenic bladder Non-rheumatic aortic stenosis Obesity Osteoarthritis Paroxysmal atrial fibrillation Severe sepsis UTI (urinary tract infection) Surgical History H/O adenoidectomy H/O enucleation of left eyeball History of tonsillectomy Family History Family History Father No problems noted. Mother No problems noted. Social History Social History Household Members: None Housing: Apartment Do you presently have visiting nurse or other home services: Yes Unable to assess alcohol history related to: Unknown Alcohol intake: never Patient Tobacco Use Status: Never used Tobacco Second Hand Smoke Exposure: No Use of substances other than those prescribed or required for medical reasons: No Advance Directives: Yes Advance Directives on File: Yes Advance Directives Date on File: 07/09/20 service: No Current occupational status: disabled Physical Exam Vital Signs: Vital Signs: Last Vital Signs Pulse 79 03/17/22 06:00 Resp 26 H 03/17/22 06:00 BP 136/66 03/17/22 06:00 Pulse Ox 93 03/17/22 06:00 O2 Del Method 03/17/22 06:00 O2 Flow Rate 2 03/17/22 06:00 BMI result Body Mass Index 46.0 Appearance: Alert. Oriented X3. No acute distress. Obese Eyes: PERRLA, No Nystagmus left eye with injected conjunctiva with purulent discharge normal cornea and anterior chamber ENT: Pharynx normal. Oral Mucosa moist Neck: Normal inspection. Neck supple. CVS: Normal heart rate and rhythm. Pulses normal. Respiratory: No respiratory distress. Equal air entry bilateral, bilateral wheezing and prolonged expiration Abdomen: Soft and nontender. Bowel sounds are present, no mass palpable, no CVA tenderness Skin: Skin warm and dry. Normal skin color. Normal skin turgor. Extremities: No lower extremity edema. No calf tenderness Neuro: Oriented X 3. No motor deficit. MDM - SOB/Dyspnea MDM Narrative Medical decision making narrative: Patient with paroxysmal AFib sleep apnea COPD with hypoxia does not have CPAP machine at home labs are pending will admit patient for further evaluation Differential Diagnosis Differential diagnosis: Likely acute exacerbation of chronic obstructive airways disease Lab Data Attestation: I reviewed the patient's lab results. Result diagrams: 03/17/22 05:42 03/17/22 05:42 Labs: Lab Results 03/17/22 03/17/22 03/17/22 Range/Units 05:42 05:42 05:42 WBC 10.5 (4.8-10.8) X10*3/uL RBC 4.87 (4.20-5.50) X10*6/uL Hgb 13.4 (12.0-16.0) g/dl Hct 42.6 (37.0-47.0) % MCV 87.5 (80.0-98.0) fL MCH 27.5 (27.0-33.0) pg MCHC 31.5 (31.0-35.0) g/dl RDW 14.5 (11.0-16.0) % Plt Count 157 L (160-400) X10*3/uL MPV 11.8 (9.4-12.3) fL Immature Gran % (Auto) 0.4 (0.0-0.4) % Neut % (Auto) 64.0 (45-73) % Lymph % (Auto) 24.1 (20-40) % [place] % (Auto) 7.9 (2-11) % Eos % (Auto) 3.4 (0-4) % Baso % (Auto) 0.2 (0-2) % Lymph # (Auto) 2.5 (1.2-4.9) X10*3/uL [place] # (Auto) 0.8 (0.1-1.2) X10*3/uL Eos # (Auto) 0.4 (0.0-0.4) X10*3/uL Baso # (Auto) 0.0 (0.0-0.2) X10*3/uL Abs Immat Gran (auto) 0.04 H (0.00-0.03) X10*3/uL Absolute Neuts (auto) 6.7 (2.0-8.3) x10*3/uL Absolute Nucleated RBC 0.000 (0.0-0.012) X10*3/uL Nucleated RBC % (auto) 0.0 (0.0-0.2) /100WBC PT 15.5 H (10.0-13.1) SEC INR 1.3 H (0.9-1.1) VBG pH (7.32-7.43) VBG pCO2 mmHg VBG pO2 mmHg VBG HCO3 (22-26) mmol/L VBG O2 Saturation % VBG Base Excess mmol/L Sodium 139 (135-145) mmol/L Potassium 4.1 (3.3-5.1) mmol/L Chloride 95 L (96-108) mmol/L Carbon Dioxide 30 H (22-29) mmol/L Anion Gap 18 (12-20) BUN 10 (9-16) mg/dL Creatinine 0.70 (0.5-1.4) mg/dL Estim Creat Clear Calc 96.2 Estimated GFR > 60 Random Glucose 339 H (60-115) mg/dL Calcium 8.6 (8.4-10.2) mg/dL Total Bilirubin 0.8 (0.0-1.0) mg/dL AST 17 (5-31) U/L ALT 19 (0-31) U/L Alkaline Phosphatase 106 (39-117) U/L Troponin I High Sens (<3.5-17.0) ng/L B-Natriuretic Peptide (<100) pg/mL Total Protein 6.4 L (6.5-8.0) g/dL Albumin 3.7 (3.5-5.0) g/dL COVID-19 ([facility]IKA) (Negative) COVID-19 Clin Com 03/17/22 03/17/22 03/17/22 Range/Units 05:42 05:42 05:42 WBC (4.8-10.8) X10*3/uL RBC (4.20-5.50) X10*6/uL Hgb (12.0-16.0) g/dl Hct (37.0-47.0) % MCV (80.0-98.0) fL MCH (27.0-33.0) pg MCHC (31.0-35.0) g/dl RDW (11.0-16.0) % Plt Count (160-400) X10*3/uL MPV (9.4-12.3) fL Immature Gran % (Auto) (0.0-0.4) % Neut % (Auto) (45-73) % Lymph % (Auto) (20-40) % [place] % (Auto) (2-11) % Eos % (Auto) (0-4) % Baso % (Auto) (0-2) % Lymph # (Auto) (1.2-4.9) X10*3/uL [place] # (Auto) (0.1-1.2) X10*3/uL Eos # (Auto) (0.0-0.4) X10*3/uL Baso # (Auto) (0.0-0.2) X10*3/uL Abs Immat Gran (auto) (0.00-0.03) X10*3/uL Absolute Neuts (auto) (2.0-8.3) x10*3/uL Absolute Nucleated RBC (0.0-0.012) X10*3/uL Nucleated RBC % (auto) (0.0-0.2) /100WBC PT (10.0-13.1) SEC INR (0.9-1.1) VBG pH (7.32-7.43) VBG pCO2 mmHg VBG pO2 mmHg VBG HCO3 (22-26) mmol/L VBG O2 Saturation % VBG Base Excess mmol/L Sodium (135-145) mmol/L Potassium (3.3-5.1) mmol/L Chloride (96-108) mmol/L Carbon Dioxide (22-29) mmol/L Anion Gap (12-20) BUN (9-16) mg/dL Creatinine (0.5-1.4) mg/dL Estim Creat Clear Calc Estimated GFR Random Glucose (60-115) mg/dL Calcium (8.4-10.2) mg/dL Total Bilirubin (0.0-1.0) mg/dL AST (5-31) U/L ALT (0-31) U/L Alkaline Phosphatase (39-117) U/L Troponin I High Sens 42.3 H D (<3.5-17.0) ng/L B-Natriuretic Peptide 187 H (<100) pg/mL Total Protein (6.5-8.0) g/dL Albumin (3.5-5.0) g/dL COVID-19 (ERIKA) Negative (Negative) COVID-19 Clin Com See Note 03/17/22 Range/Units 05:45 WBC (4.8-10.8) X10*3/uL RBC (4.20-5.50) X10*6/uL Hgb (12.0-16.0) g/dl Hct (37.0-47.0) % MCV (80.0-98.0) fL MCH (27.0-33.0) pg MCHC (31.0-35.0) g/dl RDW (11.0-16.0) % Plt Count (160-400) X10*3/uL MPV (9.4-12.3) fL Immature Gran % (Auto) (0.0-0.4) % Neut % (Auto) (45-73) % Lymph % (Auto) (20-40) % [place] % (Auto) (2-11) % Eos % (Auto) (0-4) % Baso % (Auto) (0-2) % Lymph # (Auto) (1.2-4.9) X10*3/uL [place] # (Auto) (0.1-1.2) X10*3/uL Eos # (Auto) (0.0-0.4) X10*3/uL Baso # (Auto) (0.0-0.2) X10*3/uL Abs Immat Gran (auto) (0.00-0.03) X10*3/uL Absolute Neuts (auto) (2.0-8.3) x10*3/uL Absolute Nucleated RBC (0.0-0.012) X10*3/uL Nucleated RBC % (auto) (0.0-0.2) /100WBC PT (10.0-13.1) SEC INR (0.9-1.1) VBG pH 7.37 (7.32-7.43) VBG pCO2 50 mmHg VBG pO2 52 mmHg VBG HCO3 29 H (22-26) mmol/L VBG O2 Saturation 83.0 % VBG Base Excess 3.0 mmol/L Sodium (135-145) mmol/L Potassium (3.3-5.1) mmol/L Chloride (96-108) mmol/L Carbon Dioxide (22-29) mmol/L Anion Gap (12-20) BUN (9-16) mg/dL Creatinine (0.5-1.4) mg/dL Estim Creat Clear Calc Estimated GFR Random Glucose (60-115) mg/dL Calcium (8.4-10.2) mg/dL Total Bilirubin (0.0-1.0) mg/dL AST (5-31) U/L ALT (0-31) U/L Alkaline Phosphatase (39-117) U/L Troponin I High Sens (<3.5-17.0) ng/L B-Natriuretic Peptide (<100) pg/mL Total Protein (6.5-8.0) g/dL Albumin (3.5-5.0) g/dL COVID-19 ([facility]IK[facility]) (Negative) COVID-19 Clin Com ECG Data Attestation: I personally reviewed and interpreted this ECG as follows: Interpretation: Normal sinus rhythm heart rate 84 beats per minute LVH no acute ST-T no acute ischemia Discharge Plan Discharge Clinical Impression: Acute exacerbation of chronic obstructive airways disease, Obstructive sleep apnea, Chronic hypoxemic respiratory failure Patient Disposition: Still a Patient Prescriptions: No [facility] simvastatin 40 mg tablet 40 mg PO BEDTIME gabapentin 300 mg capsule 300 mg PO BID lisinopril 5 mg tablet 5 mg PO DAILY insulin lispro [Humalog U-100 Insulin] 100 unit/mL solution See Protocol subcut TIDAC Protocol: Insulin Correction Scale Less than or equal to 110 ---- Give (units): 0 111 to 150 Give (units): 0 151 to 200 Give (units): 2 201 to 250 Give (units): 4 251 to 300 Give (units): 6 301 to 350 Give (units): 8 Greater than 350 Give (units): 10 Call MD if Blood Glucose > : 350 albuterol sulfate [Proventil HFA] 90 mcg/actuation HFA aerosol inhaler 2 puff inhalation Q4-6H PRN (Reason: Wheezing) Eliquis 5 mg tablet 5 mg PO BID Flovent Diskus 100 mcg/actuation blister with device 1 puff PO BID Lantus Solostar U-100 Insulin 100 unit/mL (3 mL) insulin pen 64 unit subcut DAILY aspirin 81 mg Tablet,Delayed Release (Dr/Ec) 81 mg PO DAILY Culturelle 10 billion cell Capsule 1 cap PO DAILY metformin 850 mg tablet 850 mg PO BIDWM metoprolol tartrate 50 mg tablet 50 mg PO BID furosemide 40 mg tablet 40 mg PO BID nitrofurantoin monohyd/m-cryst [Macrobid] 100 mg capsule 100 mg PO BID Qty: 20 0RF Rx Instructions: must administer with a meal/food
[2022-03-17] MEDS: Albuterol Sulfate 2.5 MG, Albuterol/Iprat 2.5/0.5MG 3 ML 3 ML INHALE (04:37)
--- NOTE | 2022-03-17 04:56 | ECG_ITS ---
Test Reason : SOB Blood Pressure : / mmHG Vent. Rate : 084 BPM Atrial Rate : 084 BPM P-R Int : 202 ms QRS Dur : 094 ms QT Int : 372 ms P-R-T Axes : 029 -04 054 degrees QTc Int : 439 ms Normal sinus rhythm Minimal voltage criteria for LVH, may be normal variant ( R in aVL ) Septal infarct (cited on or before 24-OCT-2021) Abnormal ECG When compared with ECG of 15-DEC-2021 18:03, No significant change was found Referred By: Ari Griggs Electronically Signed By:SONAL PERALES
[2022-03-17] MEDS: Tobramycin Sulfate 0.3% Sol Op 5 ML BTL 2 DROP EYE-LEFT (05:16)
[2022-03-17] MEDS: methylPREDNISolone Sod Succ 125 MG/2 ML VIAL IVPUSH (05:16)
[2022-03-17 05:52] LABS: VBG HCO3 29 mmol/L (22-26); VBG pCO2 50 mmHg; VBG pH 7.37 (7.32-7.43); VBG pO2 52 mmHg
[2022-03-17 05:53] LABS: MANUAL DIFF FLAG NO
[2022-03-17 05:55] LABS: Basophils Percent Auto 0.2 % (0-2); Eosinophils Absolute Auto 0.4 X10*3/uL (0.0-0.4); Eosinophils Percent Auto 3.4 % (0-4); Hematocrit 42.6 % (37.0-47.0); Hemoglobin 13.4 g/dl (12.0-16.0); Imm Gran Abs Auto 0.04 X10*3/uL (0.00-0.03); Imm Gran Pct Auto 0.4 % (0.0-0.4); Lymphocytes Absolute Auto 2.5 X10*3/uL (1.2-4.9); Lymphocytes Percent Auto 24.1 % (20-40); Mean Corpuscular HGB Conc 31.5 g/dl (31.0-35.0); Mean Corpuscular Hemoglobin 27.5 pg (27.0-33.0); Mean Corpuscular Volume 87.5 fL (80.0-98.0); Mean Platelet Volume 11.8 fL (9.4-12.3); Monocytes Absolute Auto 0.8 X10*3/uL (0.1-1.2); Monocytes Percent Auto 7.9 % (2-11); Neutrophils Absolute Auto 6.7 x10*3/uL (2.0-8.3); Platelet Count 157 X10*3/uL (160-400); Red Blood Count 4.87 X10*6/uL (4.20-5.50); Red Cell Distribution Width 14.5 % (11.0-16.0); Venous Blood Gas Refer to POC result; White Blood Count 10.5 X10*3/uL (4.8-10.8)
[2022-03-17 06:01] LABS: INTERNATIONAL NORM RATIO 1.3 (0.9-1.1); Prothrombin Time 15.5 SEC (10.0-13.1)
[2022-03-17 06:06] LABS: COVID-19 Test Negative (Negative)
[2022-03-17 06:13] LABS: Troponin-I High Sensitivity 42.3 ng/L (<3.5-17.0)
[2022-03-17 06:14] LABS: Alanine Aminotransferase 19 U/L (0-31); Albumin Level 3.7 g/dL (3.5-5.0); Alkaline Phosphatase 106 U/L (39-117); Anion Gap 18 (12-20); Aspartate Amino Transferase 17 U/L (5-31); B Type Natriuretic Peptide 187 pg/mL (<100); Bilirubin Total 0.8 mg/dL (0.0-1.0); Blood Urea Nitrogen 10 mg/dL (9-16); Calcium 8.6 mg/dL (8.4-10.2); Carbon Dioxide 30 mmol/L (22-29); Chloride 95 mmol/L (96-108); Creatinine Clr Calc Pharmacy 96.2; Estimated Glomerular Filt Rate > 60; Glucose Random 339 mg/dL (60-115); Potassium 4.1 mmol/L (3.3-5.1); Sodium 139 mmol/L (135-145); Total Protein 6.4 g/dL (6.5-8.0)
[2022-03-17 08:50] LABS: Glucose, Whole Blood 345 mg/dL (60-115)
[2022-03-17 09:28] LABS: Troponin-I High Sensitivity 43.2 ng/L (<3.5-17.0)
--- NOTE | 2022-03-17 09:31 | PHA.MEDREC ---
Pharmacy Consult ? Medication Reconciliation Pharmacy has completed the medication reconciliation. Spoke with daughter who was able to list of medications patient is taking.
--- NOTE | 2022-03-17 12:05 | P.HPHOSP_ITS ---
History of Present Illness Date of Service: 03/17/22 Chief Complaint: Dyspnea A 71 years old lady with PMH of COPD, ERICKA, AFib, type 2 diabetes, wheelchair- bound among others who presents to the hospital with acute shortness of breath at the night of admission. the patient reports that she feels short of breath at baseline and she is wheelchair-bound all the time and does not ambulate uses the left to move betwee n the chair and the bed. Overnight she noticed that she is short of breath the moment she laid back on her bed associated with minimal cough, no fever, no chills, no chest pain, no palpitation, no nausea, vomiting, change in bowel habit or urinary symptoms. EMS was called and she was placed on oxygen supplement. Noted to drop to mid 80s on room air. Received breathing treatment with good response. Ran out of her albuterol inhaler recently. The emergency she was found to mildly congestion in her chest x-ray with associated elevated BNP. Troponin mildly elevated but remained flat. Admitted for further evaluation and treatment. Review of Systems Review of Systems: No fever, chills or weakness No chest pain, palpitation Dyspnea on laying down No abdominal pain, nausea or vomiting No urinary symptoms No any rash or wounds [facility] Medical History Aortic stenosis Bacteriuria Chronic heart failure with preserved ejection fraction (HFpEF) Chronic indwelling Molina catheter Chronic UTI Chronic UTI Congestive heart failure COPD (chronic obstructive pulmonary disease) Diabetes Diarrhea Glaucoma H/O: CVA (cerebrovascular accident) Hypertension Hypotonic neurogenic bladder Non-rheumatic aortic stenosis Obesity Osteoarthritis Paroxysmal atrial fibrillation Severe sepsis UTI (urinary tract infection) Family History Father No problems noted. Mother No problems noted. Surgical History H/O adenoidectomy H/O enucleation of left eyeball History of tonsillectomy Social History Household Members: None Housing: Apartment Do you presently have visiting nurse or other home services: Yes Unable to assess alcohol history related to: Unknown Alcohol intake: never Patient Tobacco Use Status: Never used Tobacco Second Hand Smoke Exposure: No Use of substances other than those prescribed or required for medical reasons: No Advance Directives: Yes Advance Directives on File: Yes Advance Directives Date on File: 07/09/20 service: No Current occupational status: disabled Meds Allergies Allergy/AdvReac Type Severity Reaction Status Date / Time silver sulfadiazine Allergy Unknown UNK Verified 03/17/22 04:34 [facility] Active Medications: Current Medications Acetaminophen (Acetaminophen 325 Mg Tablet) 650 mg PO Q6H PRN PRN Reason: Pain, Mild (Pain Scale 1-3) Albuterol Sulfate (Albuterol Sulfate (0.083%) 2.5 Mg/3 Ml Vial.Neb) 2.5 mg INHALE Q4H PRN PRN Reason: Shortness of Breath/Wheezing Albuterol/Ipratropium (Albuterol/Iprat 2.5/0.5mg 3 Ml Ampul.Neb) 3 ml INHALE RQ4H WHILE AWAKE [facility] Apixaban (Apixaban 5 Mg Tablet) 5 mg PO BID MARJAN Aspirin (Aspirin Enteric Coated 81 Mg Tablet.Dr) 81 mg PO DAILY MARJAN Ergocalciferol (Ergocalciferol (Vitamin D2) 1,250 Mcg Capsule) mcg PO WE@0900 MARJAN Furosemide (Furosemide 40 Mg/4 Ml Vial) 40 mg IVPUSH BID@0900,1800 [facility]; Protocol Ondansetron HCl (Ondansetron Hcl 4 Mg/2 Ml Vial) 4 mg IVPUSH Q8H PRN PRN Reason: Nausea and Vomiting Prednisone (Prednisone 20 Mg Tablet) 40 mg PO DAILY [facility] Sodium Chloride (0.9 % Sodium Chloride Flush 3 Ml Syringe) 3 ml IVFLUSH QSHIFT [facility] Home Medications Medication Instructions Recorded Confirmed Last Taken Type albuterol sulfate 90 mcg/actuation 2 puff inhalation Q4-6H PRN 01/23/21 03/17/22 03/16/22 History aerosol inhaler (Proventil HFA) Wheezing apixaban 5 mg tablet (Eliquis) 5 mg PO BID 01/23/21 03/17/22 03/16/22 History gabapentin 300 mg capsule 300 mg PO BID 01/23/21 03/17/22 11/02/21 History lisinopril 5 mg tablet 5 mg PO DAILY 01/23/21 03/17/22 03/16/22 History simvastatin 40 mg tablet 40 mg PO BEDTIME 01/23/21 03/17/22 03/16/22 History Lactobacillus rhamnosus GG 10 1 cap PO DAILY 10/24/21 03/17/22 03/16/22 History billion cell capsule (Culturelle) aspirin 81 mg tablet,delayed 81 mg PO DAILY 10/24/21 03/17/22 03/16/22 History release fluticasone propionate 100 1 puff PO BID 10/24/21 03/17/22 03/16/22 History mcg/actuation blister powder for inhalation (Flovent Diskus) insulin glargine 100 unit/mL (3 64 unit subcut DAILY 10/24/21 03/17/22 03/16/22 History mL) subcutaneous pen (Lantus Solostar U-100 Insulin) furosemide 40 mg tablet 40 mg PO BID 03/09/22 03/17/22 03/16/22 History metformin 850 mg tablet 850 mg PO BIDWM 03/09/22 03/17/22 03/16/22 History metoprolol tartrate 50 mg tablet 50 mg PO BID 03/09/22 03/17/22 03/16/22 History ergocalciferol (vitamin D2) 1,250 1 cap PO WE@0900 03/17/22 03/17/22 03/16/22 History mcg (50,000 unit) capsule fluticasone propionate 50 1 spray intranasal BID 03/17/22 03/17/22 03/16/22 History mcg/actuation nasal spray,suspension insulin lispro 100 unit/mL See Protocol subcut TIDAC 03/17/22 03/17/22 03/16/22 History subcutaneous pen (Humalog KwikPen (U-100) Insulin) nystatin 100,000 unit/gram topical 1 appl topical BID PRN Rash 03/17/22 03/17/22 03/16/22 History powder Physical Exam Vital Signs and Narrative: Vital Signs: Last Vital Signs Pulse 81 03/17/22 07:39 Resp 18 03/17/22 07:39 BP 141/67 H 03/17/22 07:39 Pulse Ox 96 03/17/22 07:39 O2 Del Method 03/17/22 07:39 O2 Flow Rate 2 03/17/22 07:39 BMI result Body Mass Index 46.0 Const: Other: Constitutional : Alert, oriented, not in distress Neck : Normal inspection, Supple Cardiovascular : RRR, no JVP, trace bilateral lower extremity edema Respiratory : Decreased bilateral air entry, for basal fine crackles, scattered bilateral wheezes Gastrointestinal: soft, lax, Normal bowel sounds, Non tender Skin : Warm, Dry Neurological : Alert & oriented x3, No focal deficit , CN 2-12 within normal Results Labs CBC and Chem 7: 03/17/22 05:42 03/17/22 05:42 Labs: Laboratory Results - last 24 hr 03/17/22 03/17/22 03/17/22 05:42 05:42 05:42 MCV 87.5 MCH 27.5 MCHC 31.5 RDW 14.5 Plt Count 157 L MPV 11.8 Immature Gran % (Auto) 0.4 Neut % (Auto) 64.0 Lymph % (Auto) 24.1 Young % (Auto) 7.9 Eos % (Auto) 3.4 Baso % (Auto) 0.2 Lymph # (Auto) 2.5 Young # (Auto) 0.8 Eos # (Auto) 0.4 Baso # (Auto) 0.0 Abs Immat Gran (auto) 0.04 H Absolute Neuts (auto) 6.7 Absolute Nucleated RBC 0.000 Nucleated RBC % (auto) 0.0 PT 15.5 H INR 1.3 H VBG pH VBG pCO2 VBG pO2 VBG HCO3 VBG O2 Saturation VBG Base Excess Anion Gap 18 Estim Creat Clear Calc 96.2 Estimated GFR > 60 POC Glucose Random Glucose 339 H Calcium 8.6 Total Bilirubin 0.8 AST 17 ALT 19 Alkaline Phosphatase 106 B-Natriuretic Peptide Total Protein 6.4 L Albumin 3.7 COVID-19 (ERIKA) COVID-19 Clin Com 03/17/22 03/17/22 03/17/22 05:42 05:42 05:45 MCV MCH MCHC RDW Plt Count MPV Immature Gran % (Auto) Neut % (Auto) Lymph % (Auto) Young % (Auto) Eos % (Auto) Baso % (Auto) Lymph # (Auto) Young # (Auto) Eos # (Auto) Baso # (Auto) Abs Immat Gran (auto) Absolute Neuts (auto) Absolute Nucleated RBC Nucleated RBC % (auto) PT INR VBG pH 7.37 VBG pCO2 50 VBG pO2 52 VBG HCO3 29 H VBG O2 Saturation 83.0 VBG Base Excess 3.0 Anion Gap Estim Creat Clear Calc Estimated GFR POC Glucose Random Glucose Calcium Total Bilirubin AST ALT Alkaline Phosphatase B-Natriuretic Peptide 187 H Total Protein Albumin COVID-19 (ERIKA) Negative COVID-19 Clin Com See Note 03/17/22 08:47 MCV MCH MCHC RDW Plt Count MPV Immature Gran % (Auto) Neut % (Auto) Lymph % (Auto) Young % (Auto) Eos % (Auto) Baso % (Auto) Lymph # (Auto) Young # (Auto) Eos # (Auto) Baso # (Auto) Abs Immat Gran (auto) Absolute Neuts (auto) Absolute Nucleated RBC Nucleated RBC % (auto) PT INR VBG pH VBG pCO2 VBG pO2 VBG HCO3 VBG O2 Saturation VBG Base Excess Anion Gap Estim Creat Clear Calc Estimated GFR POC Glucose 345 H Random Glucose Calcium Total Bilirubin AST ALT Alkaline Phosphatase B-Natriuretic Peptide Total Protein Albumin COVID-19 (ERIKA) COVID-19 Clin Com Imaging Radiologist's Impressions: Impressions Chest X-Ray 03/17/22 05:05 IMPRESSION: Prominent pulmonary vasculature suggesting a degree of congestion in the proper clinical setting. Assessment and Plan (1) Acute exacerbation of chronic obstructive airways disease: Status: Acute (2) Obstructive sleep apnea: Status: Acute (3) Acute on chronic congestive heart failure with left ventricular diastolic dysfunction: Status: Acute Plan A 71 years old lady with PMH of COPD, ERICKA, AFib, type 2 diabetes, wheelchair- bound among others who presents to the hospital with acute shortness of breath at the night of admission. Acute on chronic congestive heart failure with left ventricular diastolic dysfunction Elevated BNP CXR showing increase congestion IV Lasix Monitor intake and output Acute COPD exacerbation Wean oxygen down as tolerated Steroids Bronchodilator nebulizers ATC and p.r.n. ERICKA Will need outpatient sleep study Type 2 diabetes with hyperglycemia Increase Lantus to 70 units SSI next [place] diabetic diet Atrial fibrillation Rate controlled Continue metoprolol, Eliquis DVT PPX Eliquis The patient will need 2. Overnight hospital stay for treatment of acute CHF exacerbation and COPD to prevent possible decompensation to hypoxic respiratory failure. Quality Stroke Does the patient have a stroke diagnosis?: No VTE Prior VTE?: No VTE Risk Level:: Medical - moderate - high VTE Device Contraindication: Treatment Not Indicated VTE Drug Contraindication: N/A - Med Ordered
[2022-03-17] MEDS: Apixaban 5 MG TABLET PO ×2 (12:20→21:08)
[2022-03-17] MEDS: Furosemide 40 MG/4 ML VIAL IVPUSH ×2 (12:20→18:23)
[2022-03-17] MEDS: Insulin Glargine,Hum.rec.anlog 100 UNIT/ML 10 ML VIAL 50 UNIT SUBCUT (12:20)
[2022-03-17] MEDS: Metoprolol Tartrate 50 MG TABLET PO ×2 (12:20→21:08)
[2022-03-17 13:03] LABS: Glucose, Whole Blood 524 mg/dL (60-115)
[2022-03-17] MEDS: Insulin Lispro 100 UNIT/ML 3 ML VIAL SUBCUT ×3 (13:13→21:08)
[2022-03-17] MEDS: Albuterol/Iprat 2.5/0.5MG 3 ML AMPUL.NEB INHALE ×3 (13:24→19:36)
[2022-03-17] MEDS: Insulin Lispro 100 UNIT/ML 3 ML VIAL 8 UNIT SUBCUT (13:40)
[2022-03-17 14:39] LABS: Glucose, Whole Blood 529 mg/dL (60-115)
--- NOTE | 2022-03-17 15:56 | PC.NURSE ---
pt POC greater than 600 - Dr. Yancey made aware
--- NOTE | 2022-03-17 16:28 | PC.NURSE ---
new orders for lantus and lispro ordered for POC >600 - will medicate per MAR
[2022-03-17] MEDS: Insulin Glargine,Hum.rec.anlog 100 UNIT/ML 10 ML VIAL 20 UNIT SUBCUT (16:36)
[2022-03-17] MEDS: Insulin Lispro 100 UNIT/ML 3 ML VIAL 10 UNIT SUBCUT (16:37)
[2022-03-17 16:57] LABS: Glucose, Whole Blood > 600 mg/dL (60-115)
[2022-03-17 16:57] LABS: Glucose, Whole Blood > 600 mg/dL (60-115)
--- NOTE | 2022-03-17 17:41 | PC.NURSE ---
pt dinner time POC is 597 - Dr. Yancey made aware. pending responce/orders.
[2022-03-17 17:43] LABS: Glucose, Whole Blood 597 mg/dL (60-115)
[2022-03-17] MEDS: 0.9 % Sodium Chloride Flush 3 ML SYRINGE IVFLUSH ×2 (18:24→23:55)
[2022-03-17 19:32] LABS: Glucose, Whole Blood > 600 mg/dL (60-115)
[2022-03-17] MEDS: Insulin Lispro 100 UNIT/ML 3 ML VIAL 20 UNIT SUBCUT (20:31)
[2022-03-17 20:32] LABS: Venous Blood Gas Refer to POC result
[2022-03-17 20:33] LABS: VBG Base Excess 1.7 mmol/L; VBG HCO3 27 mmol/L (22-26); VBG pCO2 44 mmHg; VBG pH 7.38 (7.32-7.43); VBG pO2 31 mmHg
[2022-03-17 20:42] LABS: Acetone, serum QL Negative (Negative)
[2022-03-17 20:53] LABS: Anion Gap 20 (12-20); Blood Urea Nitrogen 18 mg/dL (9-16); Calcium 8.5 mg/dL (8.4-10.2); Carbon Dioxide 30 mmol/L (22-29); Chloride 86 mmol/L (96-108); Estimated Glomerular Filt Rate 34; Glucose Random 651 mg/dL (60-115); Potassium 4.2 mmol/L (3.3-5.1); Sodium 132 mmol/L (135-145)
[2022-03-17] MEDS: Gabapentin 300 MG CAPSULE PO (21:08)
[2022-03-17 21:35] LABS: Glucose, Whole Blood 584 mg/dL (60-115)
[2022-03-17 22:45] LABS: Glucose, Whole Blood 481 mg/dL (60-115)
[2022-03-18] VITALS (12 sets, daily range): BP systolic 126–162; BP diastolic 61–78; PULSE 59–94; RESP 16–24; TEMP 36–36.8; O2SAT 91–99
[2022-03-18 06:37] LABS: White Blood Count 8.5 X10*3/uL (4.8-10.8)
[2022-03-18 06:38] LABS: Hematocrit 38.1 % (37.0-47.0); Hemoglobin 12.5 g/dl (12.0-16.0); Mean Corpuscular HGB Conc 32.8 g/dl (31.0-35.0); Mean Corpuscular Hemoglobin 28.2 pg (27.0-33.0); Mean Corpuscular Volume 85.8 fL (80.0-98.0); Platelet Count 164 X10*3/uL (160-400); Red Blood Count 4.44 X10*6/uL (4.20-5.50); Red Cell Distribution Width 14.2 % (11.0-16.0)
[2022-03-18 06:47] LABS: B Type Natriuretic Peptide 226 pg/mL (<100)
[2022-03-18 07:23] LABS: Anion Gap 15 (12-20); Blood Urea Nitrogen 19 mg/dL (9-16); Calcium 8.7 mg/dL (8.4-10.2); Carbon Dioxide 33 mmol/L (22-29); Chloride 91 mmol/L (96-108); Estimated Glomerular Filt Rate > 60; Glucose Random 260 mg/dL (60-115); Potassium 3.9 mmol/L (3.3-5.1); Sodium 135 mmol/L (135-145)
[2022-03-18 07:30] LABS: Glucose, Whole Blood 221 mg/dL (60-115)
[2022-03-18] MEDS: Albuterol/Iprat 2.5/0.5MG 3 ML AMPUL.NEB INHALE ×4 (07:42→20:39)
[2022-03-18] MEDS: Insulin Lispro 100 UNIT/ML 3 ML VIAL SUBCUT ×4 (08:26→19:44)
[2022-03-18] MEDS: Aspirin Enteric Coated 81 MG TABLET.DR PO (08:28)
[2022-03-18] MEDS: lisinopriL 5 MG TABLET PO (08:28)
[2022-03-18] MEDS: 0.9 % Sodium Chloride Flush 3 ML SYRINGE IVFLUSH ×3 (08:28→19:44)
[2022-03-18] MEDS: Gabapentin 300 MG CAPSULE PO ×2 (08:28→19:43)
[2022-03-18] MEDS: Apixaban 5 MG TABLET PO ×2 (08:28→19:43)
[2022-03-18] MEDS: Furosemide 40 MG/4 ML VIAL IVPUSH ×2 (08:28→17:01)
--- NOTE | 2022-03-18 09:21 | P.CDIC_ITS ---
CDI Concurrent Query Documentation Clarification: PHYSICIAN'S DOCUMENTATION REQUEST Date of Query: 03/18/22920 Patient Name: Aleah Connor Admit Date: 03/17/22 Dear Doctor, A review of the medical record indicates additional documentation may be needed. Please review below and update the documentation accordingly. Risk Factors/Clinical Indicators/Treatments BMI 46.1 5' 4 in height ERICKA If possible, please provide an associated diagnosis related to the abnormal BMI, such as: For a BMI >= 40: * Overweight * Obesity * Due to excess calories * Drug induced * Due to other cause * Severe or Morbid Obesity * With alveolar hypoventilation * Without alveolar hypoventilation Use of terms such as suspected, likely, concern for, or probable (associated with a specific diagnosis that is being evaluated, monitored, or treated as if it exists) are acceptable and can be coded in the inpatient setting, when documented at the time of discharge. Thank you, Fariha Ward [facility], CDIS Extension: [phone] Please use your independent medical judgment in providing your response. THIS QUERY IS PART OF THE PERMANENT MEDICAL RECORD Provider Response: Morbid Obesity
--- NOTE | 2022-03-18 09:31 | P.CDIC_ITS ---
CDI Concurrent Query Documentation Clarification: PHYSICIAN'S DOCUMENTATION REQUEST Date of Query: 03/18/22930 Patient Name: Aleah Connor Admit Date: 03/17/22 Dear Doctor, A review of the medical record indicates additional documentation may be needed. Please review below and update the documentation accordingly. Clinical Indicators Risk Factors/Clinical Indicators/Treatments ED 03/17 - Clinical impression - Chronic hypoxemic respiratory failure. Drop to mid 80's room air placed on 4 l nc, short of breath, ERICKA. H&P: Treating for acute CHF exacerbation, COPD and prevent possible decompensation to hypoxic respiratory failure. If possible, please further clarify the type and acuity of respiratory failure: Specifics: * Chronic hypoxemic respiratory failure * Acute on chronic hypoxemic respiratory failure * Other * Unable to determine Use of terms such as suspected, likely, concern for, or probable (associated with a specific diagnosis that is being evaluated, monitored, or treated as if it exists) are acceptable and can be coded in the inpatient setting, when documented at the time of discharge. Thank you, Fariha Ward [facility], CDIS Extension: [phone] Please use your independent medical judgment in providing your response. THIS QUERY IS PART OF THE PERMANENT MEDICAL RECORD Provider Response: Other Other Diagnosis: No documented chronic hypoxic failure
--- NOTE | 2022-03-18 09:43 | MHC.CM.PN ---
IMM ADDRESSED ORIGINAL TO PATIENT, COPY TO CHART PATIENT LIVES ALONE IN A HANDICAPPED ACCESSIBLE UNIT/HAS ELEVATOR. SHE USES A WHEELCHAIR/WHEELCHAIR BOUND, HAS INHALER/ALBUTEROL FOR ALLERGIES. NO O2 AT HOME RECEIVES INFORMATION TECHNOLOGY SPECIALIST SERVICES DAILY FROM HER DAUGHTER AND OTHER WORKERS THROUGH [employer]. GOES TO [employer]H PROGRAM DAILY AT [facility] IN [place]. J&J PCP: [facility] D/C PLAN: HOME RESUME [employer]
--- NOTE | 2022-03-18 11:25 | P.PNIM_ITS ---
Subjective Subjective Date of Service: 03/18/22 Interval History: Feels more comfortable this morning SOB improving still on 2L of O2 No reported overnight events Review of Systems No fever, chills or weakness No chest pain, palpitation Dyspnea on laying down No abdominal pain, nausea or vomiting No urinary symptoms No any rash or wounds Physical Exam Vital Signs: Vital Signs: Last Vital Signs Temp 97.8 F 03/18/22 11:08 Pulse 76 03/18/22 11:08 Resp 19 03/18/22 11:08 BP 134/70 03/18/22 11:08 Pulse Ox 96 03/18/22 11:08 O2 Del Method 03/18/22 11:08 O2 Flow Rate 2 03/18/22 06:59 BMI result Body Mass Index 46.0 Const: Other: Constitutional : Alert, oriented, not in distress Neck : Normal inspection, Supple Cardiovascular : RRR, no JVP, trace bilateral lower extremity edema Respiratory : Decreased bilateral air entry, for basal fine crackles, scattered bilateral wheezes Gastrointestinal: soft, lax, Normal bowel sounds, Non tender Skin : Warm, Dry Neurological : Alert & oriented x3, No focal deficit , CN 2-12 within normal Objective Data Active Medications Acetaminophen (Acetaminophen 325 Mg Tablet) 650 mg PO Q6H PRN PRN Reason: Pain, Mild (Pain Scale 1-3) Albuterol Sulfate (Albuterol Sulfate (0.083%) 2.5 Mg/3 Ml Vial.Neb) 2.5 mg INHALE Q4H PRN PRN Reason: Shortness of Breath/Wheezing Albuterol/Ipratropium (Albuterol/Iprat 2.5/0.5mg 3 Ml Ampul.Neb) 3 ml INHALE RQ4H WHILE AWAKE [facility] Last Admin: 03/18/22 07:42 Dose: 3 ml Documented By: RAQUEL Apixaban (Apixaban 5 Mg Tablet) 5 mg PO BID [facility] Last Admin: 03/18/22 08:28 Dose: 5 mg Documented By: KARIS Aspirin (Aspirin Enteric Coated 81 Mg Tablet.Dr) 81 mg PO DAILY [facility] Last Admin: 03/18/22 08:28 Dose: 81 mg Documented By: KARIS Ergocalciferol (Ergocalciferol (Vitamin D2) 1,250 Mcg Capsule) 1,250 mcg PO WE@0900 [facility] Fluticasone Propionate (Fluticasone Propionate Nasal 16 Gm [place]) 1 spray NOSTRIL-B BID [facility] Last Admin: 03/18/22 10:13 Dose: Not Given Documented By: KARIS Non-Admin Reason: Med Not Available Furosemide (Furosemide 40 Mg/4 Ml Vial) 40 mg IVPUSH BID@0900,1800 [facility]; Protocol Last Admin: 03/18/22 08:28 Dose: 40 mg Documented By: KARIS Gabapentin (Gabapentin 300 Mg Capsule) 300 mg PO BID [facility] Last Admin: 03/18/22 08:28 Dose: 300 mg Documented By: KARIS Insulin Glargine (Insulin Glargine,Hum.Rec.Anlog 100 Unit/Ml 10 Ml Vial) 50 unit SUBCUT DAILY [facility] Insulin Human Lispro (Insulin Lispro 100 Unit/Ml 3 Ml Vial) 0 unit SUBCUT QIDACHS [facility]; Protocol Last Admin: 03/18/22 08:26 Dose: 4 unit Documented By: KARIS Lisinopril (Lisinopril 5 Mg Tablet) 5 mg PO DAILY [facility]; Protocol Last Admin: 03/18/22 08:28 Dose: 5 mg Documented By: KARIS Metoprolol Tartrate (Metoprolol Tartrate 50 Mg Tablet) 50 mg PO BID [facility]; Protocol Last Admin: 03/18/22 10:13 Dose: Not Given Documented By: KARIS Non-Admin Reason: Decreased Heart Rate Ondansetron HCl (Ondansetron Hcl 4 Mg/2 Ml Vial) 4 mg IVPUSH Q8H PRN PRN Reason: Nausea and Vomiting Sodium Chloride (0.9 % Sodium Chloride Flush 3 Ml Syringe) 3 ml IVFLUSH QSHIFT [facility] Last Admin: 03/18/22 08:28 Dose: 3 ml Documented By: KARIS Labs CBC & Chem 7: 03/18/22 05:20 03/18/22 05:20 Labs: Laboratory Results - last 24 hr 03/17/22 03/17/22 03/17/22 13:00 14:36 15:53 MCV MCH MCHC RDW Plt Count MPV Absolute Nucleated RBC Nucleated RBC % (auto) VBG pH VBG pCO2 VBG pO2 VBG HCO3 VBG O2 Saturation VBG Base Excess Anion Gap Estim Creat Clear Calc Estimated GFR POC Glucose 524 H* 529 H* > 600 H* Random Glucose Calcium B-Natriuretic Peptide Acetone, Qual 03/17/22 03/17/22 03/17/22 15:55 17:39 19:18 MCV MCH MCHC RDW Plt Count MPV Absolute Nucleated RBC Nucleated RBC % (auto) VBG pH VBG pCO2 VBG pO2 VBG HCO3 VBG O2 Saturation VBG Base Excess Anion Gap Estim Creat Clear Calc Estimated GFR POC Glucose > 600 H* 597 H* > 600 H* Random Glucose Calcium B-Natriuretic Peptide Acetone, Qual 03/17/22 03/17/22 03/17/22 20:24 20:28 21:13 MCV MCH MCHC RDW Plt Count MPV Absolute Nucleated RBC Nucleated RBC % (auto) VBG pH 7.38 VBG pCO2 44 VBG pO2 31 VBG HCO3 27 H VBG O2 Saturation 54.0 VBG Base Excess 1.7 Anion Gap 20 Estim Creat Clear Calc 44.0 Estimated GFR 34 POC Glucose 584 H* Random Glucose 651 H* D Calcium 8.5 B-Natriuretic Peptide Acetone, Qual Negative 03/17/22 03/18/22 03/18/22 22:40 05:20 05:20 MCV 85.8 MCH 28.2 MCHC 32.8 RDW 14.2 Plt Count 164 MPV 12.0 Absolute Nucleated RBC 0.000 Nucleated RBC % (auto) 0.0 VBG pH VBG pCO2 VBG pO2 VBG HCO3 VBG O2 Saturation VBG Base Excess Anion Gap Estim Creat Clear Calc Estimated GFR POC Glucose 481 H* Random Glucose Calcium B-Natriuretic Peptide 226 H Acetone, Qual 03/18/22 03/18/22 05:20 07:02 MCV MCH MCHC RDW Plt Count MPV Absolute Nucleated RBC Nucleated RBC % (auto) VBG pH VBG pCO2 VBG pO2 VBG HCO3 VBG O2 Saturation VBG Base Excess Anion Gap 15 Estim Creat Clear Calc 91.0 Estimated GFR > 60 POC Glucose 221 H Random Glucose 260 H D Calcium 8.7 B-Natriuretic Peptide Acetone, Qual Assessment and Plan (1) Acute on chronic congestive heart failure with left ventricular diastolic dysfunction: Status: Acute (2) Acute exacerbation of chronic obstructive airways disease: Status: Acute Plan A 71 years old lady with PMH of COPD, ERICKA, AFib, type 2 diabetes, wheelchair- bound among others who presents to the hospital with acute shortness of breath at the night of admission. Acute on chronic congestive heart failure with left ventricular diastolic dysfunction Improving CXR showing increase congestion Continue IV Lasix Monitor intake and output Acute COPD exacerbation Hold on Steroids Bronchodilator nebulizers ATC and p.r.n. Wean oxygen down as tolerated Morbid obesity BMI of 46 advised to lose weight Hx ERICKA Not using any machines at home Will need outpatient sleep study Type 2 diabetes with hyperglycemia Lantus 50 units today SSI diabetic diet Atrial fibrillation Rate controlled Continue metoprolol, Eliquis DVT PPX Eliquis The patient will need Overnight hospital stay for treatment of acute CHF exacerbation and COPD to prevent possible decompensation to hypoxic respiratory failure. Quality Stroke Does the patient have a stroke diagnosis?: No VTE Prior VTE?: No VTE Risk Level:: Medical - moderate - high VTE Device Contraindication: Treatment Not Indicated VTE Drug Contraindication: N/A - Med Ordered
[2022-03-18 12:04] LABS: Glucose, Whole Blood 304 mg/dL (60-115)
[2022-03-18 16:15] LABS: Glucose, Whole Blood 326 mg/dL (60-115)
[2022-03-18 19:27] LABS: Glucose, Whole Blood 318 mg/dL (60-115)
[2022-03-18] MEDS: Metoprolol Tartrate 50 MG TABLET PO (19:43)
[2022-03-18] MEDS: Acetaminophen 325 MG TABLET 650 MG PO (19:43)
[2022-03-18] MEDS: Fluticasone Propionate Nasal 16 GM SPRAY 1 SPRAY NOSTRIL-B (19:44)
[2022-03-19] VITALS (11 sets, daily range): BP systolic 96–155; BP diastolic 41–71; PULSE 58–84; RESP 14–28; TEMP 35.7–37.4; O2SAT 88–97
[2022-03-19] MEDS: Acetaminophen 325 MG TABLET 650 MG PO ×2 (04:51→21:53)
[2022-03-19 04:59] LABS: ABG Base Excess 3.1 mmol/L; ABG HCO3 26 mmol/L (22-26); ABG pCO2 36 mmHg (32-45); ABG pH 7.47 (7.35-7.45); ABG pO2 64 mmHg (83-108)
[2022-03-19 07:17] LABS: Hematocrit 41.7 % (37.0-47.0); Hemoglobin 13.3 g/dl (12.0-16.0); Mean Corpuscular HGB Conc 31.9 g/dl (31.0-35.0); Mean Corpuscular Hemoglobin 27.8 pg (27.0-33.0); Mean Corpuscular Volume 87.2 fL (80.0-98.0); Mean Platelet Volume 12.4 fL (9.4-12.3); Platelet Count 171 X10*3/uL (160-400); Red Blood Count 4.78 X10*6/uL (4.20-5.50); Red Cell Distribution Width 14.6 % (11.0-16.0); White Blood Count 7.5 X10*3/uL (4.8-10.8)
[2022-03-19 07:29] LABS: Glucose, Whole Blood 201 mg/dL (60-115)
[2022-03-19 07:54] LABS: Anion Gap 16 (12-20); Blood Urea Nitrogen 15 mg/dL (9-16); Calcium 8.2 mg/dL (8.4-10.2); Carbon Dioxide 35 mmol/L (22-29); Chloride 89 mmol/L (96-108); Creatinine Clr Calc Pharmacy 103.6; Estimated Glomerular Filt Rate > 60; Glucose Random 211 mg/dL (60-115); Sodium 136 mmol/L (135-145)
[2022-03-19] MEDS: Albuterol/Iprat 2.5/0.5MG 3 ML AMPUL.NEB INHALE ×4 (07:56→20:03)
[2022-03-19] MEDS: Furosemide 40 MG/4 ML VIAL IVPUSH ×2 (08:26→17:32)
[2022-03-19] MEDS: Insulin Lispro 100 UNIT/ML 3 ML VIAL SUBCUT ×5 (08:26→21:55)
[2022-03-19] MEDS: lisinopriL 5 MG TABLET PO (08:27)
[2022-03-19] MEDS: Gabapentin 300 MG CAPSULE PO ×2 (08:27→21:54)
[2022-03-19] MEDS: Insulin Glargine,Hum.rec.anlog 100 UNIT/ML 10 ML VIAL 65 UNIT SUBCUT (08:27)
[2022-03-19] MEDS: Apixaban 5 MG TABLET PO ×2 (08:27→21:54)
[2022-03-19] MEDS: 0.9 % Sodium Chloride Flush 3 ML SYRINGE IVFLUSH ×3 (08:27→21:55)
[2022-03-19] MEDS: Aspirin Enteric Coated 81 MG TABLET.DR PO (08:27)
[2022-03-19] MEDS: Metoprolol Tartrate 50 MG TABLET PO ×2 (08:27→21:54)
[2022-03-19] MEDS: Fluticasone Propionate Nasal 16 GM SPRAY 1 SPRAY NOSTRIL-B (08:33)
--- NOTE | 2022-03-19 09:16 | P.PNIM_ITS ---
Subjective Subjective Date of Service: 03/19/22 Interval History: Feels more comfortable this morning SOB improving ABG showing no hypercapnia, requires O2 at night No reported overnight events Review of Systems No fever, chills or weakness No chest pain, palpitation Dyspnea on laying down No abdominal pain, nausea or vomiting No urinary symptoms No any rash or wounds Physical Exam Vital Signs: Vital Signs: Last Vital Signs Temp 97.1 F 03/20/22 07:07 Pulse 67 03/20/22 08:25 Resp 17 03/20/22 08:25 BP 137/62 03/20/22 07:07 Pulse Ox 97 03/20/22 07:07 O2 Del Method 03/20/22 07:07 O2 Flow Rate 2 03/20/22 07:07 BMI result Body Mass Index 46.0 Const: Other: Constitutional : Alert, oriented, not in distress Neck : Normal inspection, Supple Cardiovascular : RRR, no JVP, trace bilateral lower extremity edema Respiratory : Decreased bilateral air entry, no crackles, no wheezes Gastrointestinal: soft, lax, Normal bowel sounds, Non tender Skin : Warm, Dry Neurological : Alert & oriented x3, No focal deficit , CN 2-12 within normal Objective Data Active Medications Acetaminophen (Acetaminophen 325 Mg Tablet) 650 mg PO Q6H PRN PRN Reason: Pain, Mild (Pain Scale 1-3) Last Admin: 03/19/22 21:53 Dose: 650 mg Documented By: JEREMIAH Albuterol Sulfate (Albuterol Sulfate (0.083%) 2.5 Mg/3 Ml Vial.Neb) 2.5 mg INHALE Q4H PRN PRN Reason: Shortness of Breath/Wheezing Albuterol/Ipratropium (Albuterol/Iprat 2.5/0.5mg 3 Ml Ampul.Neb) 3 ml INHALE RQ4H WHILE AWAKE [facility] Last Admin: 03/20/22 08:25 Dose: 3 ml Documented By: IRVING Apixaban (Apixaban 5 Mg Tablet) 5 mg PO BID [facility] Last Admin: 03/19/22 21:54 Dose: 5 mg Documented By: JEREMIAH Aspirin (Aspirin Enteric Coated 81 Mg Tablet.) 81 mg PO DAILY [facility] Last Admin: 03/19/22 08:27 Dose: 81 mg Documented By: SALLY Ergocalciferol (Ergocalciferol (Vitamin D2) 1,250 Mcg Capsule) 1,250 mcg PO WE@0900 [facility] Fluticasone Propionate (Fluticasone Propionate Nasal 16 Gm [place]) 1 spray NOSTRIL-B BID [facility] Last Admin: 03/19/22 22:00 Dose: Not Given Documented By: JEREMIAH Non-Admin Reason: Patient Refused Furosemide (Furosemide 40 Mg/4 Ml Vial) 40 mg IVPUSH BID@0900,1800 [facility]; Protocol Last Admin: 03/19/22 17:32 Dose: 40 mg Documented By: SALLY Gabapentin (Gabapentin 300 Mg Capsule) 300 mg PO BID [facility] Last Admin: 03/19/22 21:54 Dose: 300 mg Documented By: JEREMIAH Insulin Glargine (Insulin Glargine,Hum.Rec.Anlog 100 Unit/Ml 10 Ml Vial) 65 unit SUBCUT DAILY [facility] Last Admin: 03/19/22 08:27 Dose: 65 unit Documented By: SALLY Insulin Human Lispro (Insulin Lispro 100 Unit/Ml 3 Ml Vial) 0 unit SUBCUT QIDAS [facility]; Protocol Last Admin: 03/19/22 21:55 Dose: 10 unit Documented By: JEREMIAH Lisinopril (Lisinopril 5 Mg Tablet) 5 mg PO DAILY [facility]; Protocol Last Admin: 03/19/22 08:27 Dose: 5 mg Documented By: SALLY Metoprolol Tartrate (Metoprolol Tartrate 50 Mg Tablet) 50 mg PO BID [facility]; Protocol Last Admin: 03/19/22 21:54 Dose: 50 mg Documented By: JEREMIAH Ondansetron HCl (Ondansetron Hcl 4 Mg/2 Ml Vial) 4 mg IVPUSH Q8H PRN PRN Reason: Nausea and Vomiting Sodium Chloride (0.9 % Sodium Chloride Flush 3 Ml Syringe) 3 ml IVFLUSH QSHIFT [facility] Last Admin: 03/19/22 21:55 Dose: 3 ml Documented By: JEREMIAH Labs CBC & Chem 7: 03/19/22 05:23 03/19/22 05:23 Labs: Laboratory Results - last 24 hr 03/19/22 03/19/22 03/19/22 11:08 15:33 19:20 POC Glucose 307 H 389 H* 490 H* 03/20/22 03/20/22 05:13 07:10 POC Glucose 283 H 254 H Assessment and Plan (1) Acute on chronic congestive heart failure with left ventricular diastolic dysfunction: Status: Acute (2) Acute exacerbation of chronic obstructive airways disease: Status: Acute Plan A 71 years old lady with PMH of COPD, ERICKA, AFib, type 2 diabetes, wheelchair- bound among others who presents to the hospital with acute shortness of breath at the night of admission. Acute on chronic congestive heart failure with left ventricular diastolic dysfunction Improving CXR showing increase congestion Continue IV Lasix Monitor intake and output Home O2 eval , will need 2L at night time Acute COPD exacerbation Hold on Steroids Bronchodilator nebulizers ATC and p.r.n. Wean oxygen down as tolerated Morbid obesity BMI of 46 advised to lose weight Hx ERICKA Not using any machines at home Will need outpatient sleep study Type 2 diabetes with hyperglycemia Lantus 50 units today SSI diabetic diet Atrial fibrillation Rate controlled Continue metoprolol, Eliquis DVT PPX Eliquis The patient will need Overnight hospital stay for treatment of acute CHF exacerbation and COPD to prevent possible decompensation to hypoxic respiratory failure. Quality Stroke Does the patient have a stroke diagnosis?: No VTE Prior VTE?: No VTE Risk Level:: Medical - moderate - high VTE Device Contraindication: Treatment Not Indicated VTE Drug Contraindication: N/A - Med Ordered
[2022-03-19] MEDS: predniSONE 20 MG TABLET 40 MG PO (09:46)
[2022-03-19 11:25] LABS: Glucose, Whole Blood 307 mg/dL (60-115)
[2022-03-19] MEDS: guaiFENesin LA 600 MG TAB.ER.12H PO (15:24)
[2022-03-19 15:46] LABS: Glucose, Whole Blood 389 mg/dL (60-115)
[2022-03-19 19:45] LABS: Glucose, Whole Blood 490 mg/dL (60-115)
[2022-03-19] MEDS: Insulin Lispro 100 UNIT/ML 3 ML VIAL 15 UNIT SUBCUT (21:55)
--- NOTE | 2022-03-20 03:16 | MHC.PIE ---
p; poc 490 i; dr de jesus notified; new order give humalog ss now. give humalog 15 u now e; will cont to monitor
[2022-03-20 03:53] VITALS: BP 126/62; PULSE 74; RESP 17; TEMP 36.4; O2SAT 97
[2022-03-20 04:18] VITALS: PULSE 63; RESP 24; O2SAT 97
[2022-03-20] MEDS: Albuterol/Iprat 2.5/0.5MG 3 ML AMPUL.NEB INHALE ×3 (04:18→11:49)
[2022-03-20 05:22] LABS: Glucose, Whole Blood 283 mg/dL (60-115)
[2022-03-20 07:07] VITALS: BP 137/62; PULSE 61; RESP 18; TEMP 36.2; O2SAT 97
[2022-03-20 07:28] LABS: Glucose, Whole Blood 254 mg/dL (60-115)
[2022-03-20 08:20] LABS: ABG Refer to POC result
[2022-03-20 08:25] VITALS: PULSE 67; RESP 17; O2SAT 97
--- NOTE | 2022-03-20 09:10 | PM.DS ---
DS: Providers Provider Date of Service: 03/20/22 Date of admission: 03/17/22 12:00 Primary care physician: Cherise Hamm MD DS: Diagnosis Discharge Diagnosis (1) Acute on chronic congestive heart failure with left ventricular diastolic dysfunction: Status: Acute (2) Acute exacerbation of chronic obstructive airways disease: Status: Acute (3) Obstructive sleep apnea: Status: Acute (4) Chronic hypoxemic respiratory failure: Status: Acute DS: Summary Hospital Course Hospital Course: Admission note HPI A 71 years old lady with PMH of COPD, ERICKA, AFib, type 2 diabetes, wheelchair-bound among others who presents to the hospital with acute shortness of breath at the night of admission. the patient reports that she feels short of breath at baseline and she is wheelchair-bound all the time and does not ambulate uses the left to move between the chair and the bed.? Overnight she noticed that she is short of breath the moment she laid back on her bed associated with minimal cough, no fever, no chills, no chest pain, no palpitation, no nausea, vomiting, change in bowel habit or urinary symptoms.? EMS was called and she was placed on oxygen supplement.? Noted to drop to mid 80s on room air.? Received breathing treatment with good response. Ran out of her albuterol inhaler recently. The emergency she was found to mildly congestion in her chest x-ray with associated elevated BNP.? Troponin mildly elevated but remained flat.? Admitted for further evaluation and treatment. Hospital course The patient was admitted to the hospital for evaluation of shortness of breath. Noticed to have acute on chronic congestive heart failure along with acute COPD exacerbation. Treated with IV Lasix, IV steroids, bronchodilator nebulizers with good response over the course of hospital stay as she was weaned off the oxygen during daytime. She had an overnight oximetry testing that showed an evidence of multiple episodes of hypoxia well-defined her for home oxygen at bedtime. She did not qualify for BiPAP and will need a sleep study as outpatient to get a CPAP machine. Advised to lose weight given her morbid obesity. Had difficulties controlling her sugar on the 1st day of admission after the 1st dose of IV steroids requiring multiple doses of lispro insulin. Continue prednisone for 3 more days Use nebulizer as needed continue home inhalers Continue Lasix 40 mg twice Daily To follow-up with your primary care within the next 1-2 weeks Time Spent with Patient Time attestation: Total time spent providing and/or coordinating discharge services: Discharge coordination time: Greater than 30 minutes Quality: Safe Use of Opioids Does Pt have an Active Cancer Diagnosis on the Problem List?: No Quality: Stroke Does the patient have a stroke diagnosis?: No Physical Exam Vital Signs: Vital Signs: Last Vital Signs Temp 96.2 F L 03/19/22 07:38 Pulse 66 03/19/22 07:57 Resp 22 H 03/19/22 07:57 BP 144/65 H 03/19/22 07:38 Pulse Ox 93 03/19/22 07:38 O2 Del Method 03/19/22 07:38 O2 Flow Rate 1.0 03/19/22 07:38 BMI result Body Mass Index 46.0 Const: Other: Constitutional : Alert, oriented, not in distress Neck : Normal inspection, Supple Cardiovascular : RRR, no JVP, trace bilateral lower extremity edema Respiratory : Decreased bilateral air entry, no crackles, no wheezes Gastrointestinal: soft, lax, Normal bowel sounds, Non tender Skin : Warm, Dry Neurological : Alert & oriented x3, No focal deficit , CN 2-12 within normal DS: Data Data Completed and Pending Completed studies during hospitalization [Text1]: Procedures Excision of Large Intestine, Via Natural or Artificial Opening Endoscopic, Diagnostic (09/20/20) Labs on day of discharge: Laboratory Results - last 24 hr 03/18/22 03/18/22 03/18/22 12:00 16:07 19:05 WBC RBC Hgb Hct MCV MCH MCHC RDW Plt Count MPV Absolute Nucleated RBC Nucleated RBC % (auto) O2 Saturation ABG pH at Pt Temp ABG pCO2 at Pt Temp ABG pO2 at Pt Temp ABG HCO3 ABG Base Excess (Actual) Sodium Potassium Chloride Carbon Dioxide Anion Gap BUN Creatinine Estim Creat Clear Calc Estimated GFR POC Glucose 304 H 326 H 318 H Random Glucose Calcium 03/19/22 03/19/22 03/19/22 04:52 05:23 05:23 WBC 7.5 RBC 4.78 Hgb 13.3 Hct 41.7 MCV 87.2 MCH 27.8 MCHC 31.9 RDW 14.6 Plt Count 171 MPV 12.4 H Absolute Nucleated RBC 0.000 Nucleated RBC % (auto) 0.0 O2 Saturation 91.0 ABG pH at Pt Temp 7.47 H ABG pCO2 at Pt Temp 36 ABG pO2 at Pt Temp 64 L ABG HCO3 26 ABG Base Excess (Actual) 3.1 Sodium 136 Potassium 4.0 Chloride 89 L Carbon Dioxide 35 H Anion Gap 16 BUN 15 Creatinine 0.65 Estim Creat Clear Calc 103.6 Estimated GFR > 60 POC Glucose Random Glucose 211 H Calcium 8.2 L 03/19/22 07:14 WBC RBC Hgb Hct MCV MCH MCHC RDW Plt Count MPV Absolute Nucleated RBC Nucleated RBC % (auto) O2 Saturation ABG pH at Pt Temp ABG pCO2 at Pt Temp ABG pO2 at Pt Temp ABG HCO3 ABG Base Excess (Actual) Sodium Potassium Chloride Carbon Dioxide Anion Gap BUN Creatinine Estim Creat Clear Calc Estimated GFR POC Glucose 201 H Random Glucose Calcium Imaging Chest x-ray: Radiologist's impression: ITS Impressions Chest X-Ray 03/17/22 05:05 IMPRESSION: Prominent pulmonary vasculature suggesting a degree of congestion in the proper clinical setting. Discharge Plan Discharge Patient Disposition: Home Health Service Discharge Diagnosis: Acute heart failure exacerbation Referrals: Cherise Hamm MD [Primary Care Provider] - 1 Week Discharge Medications: New ipratropium-albuterol 0.5 mg-3 mg(2.5 mg base)/3 mL Solution For Nebulization 3 ml inhalation RQ4H WHILE AWAKE PRN (Reason: Shortness Of Breath Or Wheezing) Qty: 300 0RF (DME) nebulizers [facility] See Rx Instructions .Route Qty: 1 0RF Rx Instructions: As directed prednisone 20 mg tablet 40 mg PO DAILY Qty: 6 0RF Continued simvastatin 40 mg tablet 40 mg PO BEDTIME gabapentin 300 mg capsule 300 mg PO BID lisinopril 5 mg tablet 5 mg PO DAILY albuterol sulfate [Proventil HFA] 90 mcg/actuation HFA aerosol inhaler 2 puff inhalation Q4-6H PRN (Reason: Wheezing) Eliquis 5 mg tablet 5 mg PO BID ergocalciferol (vitamin D2) 1,250 mcg (50,000 unit) capsule 1 cap PO WE@0900 nystatin 100,000 unit/gram powder 1 appl topical BID PRN (Reason: Rash) fluticasone propionate 50 mcg/actuation spray,suspension 1 spray intranasal BID insulin lispro [Humalog KwikPen Insulin] 100 unit/mL insulin pen See Protocol subcut TIDAC Protocol: Insulin Correction Scale Less than or equal to 110 ---- Give (units): 0 111 to 150 Give (units): 0 151 to 200 Give (units): 2 201 to 250 Give (units): 4 251 to 300 Give (units): 6 301 to 350 Give (units): 8 Greater than 350 Give (units): 10 Call MD if Blood Glucose > : 350 Flovent Diskus 100 mcg/actuation blister with device 1 puff PO BID insulin glargine [Lantus Solostar U-100 Insulin] 100 unit/mL (3 mL) insulin pen 64 unit subcut DAILY aspirin 81 mg Tablet,Delayed Release (Dr/Ec) 81 mg PO DAILY Culturelle 10 billion cell Capsule 1 cap PO DAILY metformin 850 mg tablet 850 mg PO BIDWM metoprolol tartrate 50 mg tablet 50 mg PO BID furosemide 40 mg tablet 40 mg PO BID Discharge Orders: Discharge Order (Routine); Ordered 03/20/22 Ordered By: Salma Yancey Diet: Advance to usual diet Activity on Discharge: As tolerated Stand Alone Forms: Patient Portal Discharge page Care Plan Goals: Read below Health Concerns: Read below Plan of Treatment: Read below Assessment: You were admitted to the hospital for evaluation of difficulty breathing. Found to be on acute heart failure exacerbation treated with IV Lasix with good response over the course of hospital stay. Treated with nebulizers and steroids for COPD with good response. Evaluated for home oxygen which you qualify for 2 L at bedtime. Continue prednisone for 3 more days Use nebulizer as needed continue home inhalers Continue Lasix 40 mg twice Daily To follow-up with your primary care within the next 1-2 weeks
[2022-03-20] MEDS: 0.9 % Sodium Chloride Flush 3 ML SYRINGE IVFLUSH (09:15)
[2022-03-20] MEDS: Furosemide 40 MG/4 ML VIAL IVPUSH (09:15)
[2022-03-20] MEDS: Metoprolol Tartrate 50 MG TABLET PO (09:15)
[2022-03-20] MEDS: lisinopriL 5 MG TABLET PO (09:15)
[2022-03-20] MEDS: Aspirin Enteric Coated 81 MG TABLET.DR PO (09:15)
[2022-03-20] MEDS: Gabapentin 300 MG CAPSULE PO (09:15)
[2022-03-20] MEDS: Apixaban 5 MG TABLET PO (09:15)
[2022-03-20] MEDS: Insulin Lispro 100 UNIT/ML 3 ML VIAL SUBCUT ×2 (09:16→12:13)
[2022-03-20] MEDS: Insulin Glargine,Hum.rec.anlog 100 UNIT/ML 10 ML VIAL 65 UNIT SUBCUT (09:16)
[2022-03-20] MEDS: Fluticasone Propionate Nasal 16 GM SPRAY 1 SPRAY NOSTRIL-B (09:17)
--- NOTE | 2022-03-20 09:27 | MHC.CM.PN ---
Attempted to call patient's daughter to confirm delivery of in-home O2; no answer. Will re-approach.
--- NOTE | 2022-03-20 09:36 | MHC.CM.PN ---
MD order for home w/services; connected w/MD RE inquiry about patient's already in-home services per previous CM notes (handicap accessible home, equip and [employer]FF[employer] services, etc). MD in agreement these in-place services are sufficient for patient's D/C to home rather than a new referral to [facility]. Called daughter (Stefany) to discuss/confirm in-home O2 delivery for today at MD's request; Stefany requesting C to keep mom a few more days. This CM reviewed non-coverage risk w/Stefany; Stefany agreed to call [facility] today to set up O2 delivery for today. CM to follow.
--- NOTE | 2022-03-20 09:48 | MHC.CM.PN ---
Bridgette simmons (Juan Pablo) called this CM to confirm O2 is nocturnal at 2 LPM so that he can deliver to patient's home at specific set time today w/daughter (Deb). Messaged MD via [employer]. Pending response. Can set up transport for patient to D/C home after O2 details are confirmed. CM to follow.
--- NOTE | 2022-03-20 10:01 | MHC.CM.PN ---
confirmed O2 at 2 LPM nocturnally and PRN during the day. Spoke w/Juan Pablo at [employer] again and confirmed order. He set delivery time for noon today. 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
[2022-03-20 11:09] VITALS: BP 120/57; PULSE 71; RESP 18; TEMP 36.2; O2SAT 95
[2022-03-20 11:34] LABS: Glucose, Whole Blood 325 mg/dL (60-115)
[2022-03-20 11:50] VITALS: PULSE 66; RESP 18; O2SAT 95
== END 2022-03-20 13:42 | disposition home health service (06) | DRG 291 ==
LOC: HO.ED 11:35 → HO.EDOVER 12:06 → HO.S3 21:28
PROVIDERS: Internal Medicine; Admitting Provider Student in an Organized Health Care Education/Training Program; Emergency Provider Emergency Medicine Emergency Medical Services; PCP Family Medicine; Visit Provider Student in an Organized Health Care Education/Training Program
DX: I11.0 Hypertensive heart disease with heart failure (principal); I50.33 Acute on chronic diastolic (congestive) heart failure; J44.1 Chronic obstructive pulmonary disease with (acute) exacerbation; Z68.42 Body mass index [BMI] 45.0-49.9, adult; Z87.440 Personal history of urinary (tract) infections; I48.0 Paroxysmal atrial fibrillation; G47.33 Obstructive sleep apnea (adult) (pediatric); E66.01 Morbid (severe) obesity due to excess calories; E11.65 Type 2 diabetes mellitus with hyperglycemia; Z20.822 Contact with and (suspected) exposure to COVID-19; Z99.3 Dependence on wheelchair; Z79.4 Long term (current) use of insulin; Z79.51 Long term (current) use of inhaled steroids; Z79.82 Long term (current) use of aspirin; Z79.84 Long term (current) use of oral hypoglycemic drugs; Z79.899 Other long term (current) drug therapy
CPT/HCPCS: 36415; 36600; 71045; 80048; 80053; 82009; 82803; 82947; 83880; 84484; 85025; 85027; 85610; 87635; 93005; 94640; 94762; 96374; 99285; C1758; J1940; J2930

== ENCOUNTER 2022-04-01 05:51 | Outpatient (REF) | payer MEDICARE, MEDICAID, SELFPAY ==
[2022-04-01 05:53] LABS: MANUAL DIFF FLAG NO
[2022-04-01 05:57] LABS: Basophils Percent Auto 0.3 % (0-2); Eosinophils Absolute Auto 0.3 X10*3/uL (0.0-0.4); Eosinophils Percent Auto 4.7 % (0-4); Hematocrit 43.4 % (37.0-47.0); Hemoglobin 13.8 g/dl (12.0-16.0); Imm Gran Abs Auto 0.01 X10*3/uL (0.00-0.03); Imm Gran Pct Auto 0.1 % (0.0-0.4); Lymphocytes Absolute Auto 1.3 X10*3/uL (1.2-4.9); Lymphocytes Percent Auto 19.6 % (20-40); Mean Corpuscular HGB Conc 31.8 g/dl (31.0-35.0); Mean Corpuscular Hemoglobin 27.8 pg (27.0-33.0); Mean Corpuscular Volume 87.3 fL (80.0-98.0); Mean Platelet Volume 11.7 fL (9.4-12.3); Monocytes Absolute Auto 0.6 X10*3/uL (0.1-1.2); Monocytes Percent Auto 9.4 % (2-11); Neutrophils Absolute Auto 4.5 x10*3/uL (2.0-8.3); Neutrophils Percent Auto 65.9 % (45-73); Platelet Count 150 X10*3/uL (160-400); Red Blood Count 4.97 X10*6/uL (4.20-5.50); Red Cell Distribution Width 14.5 % (11.0-16.0); White Blood Count 6.8 X10*3/uL (4.8-10.8)
[2022-04-01 06:36] LABS: Alanine Aminotransferase 17 U/L (0-31); Albumin Level 3.5 g/dL (3.5-5.0); Alkaline Phosphatase 126 U/L (39-117); Anion Gap 14 (12-20); Aspartate Amino Transferase 12 U/L (5-31); Bilirubin Total 0.4 mg/dL (0.0-1.0); Blood Urea Nitrogen 12 mg/dL (9-16); Calcium 8.8 mg/dL (8.4-10.2); Carbon Dioxide 31 mmol/L (22-29); Chloride 96 mmol/L (96-108); Estimated Glomerular Filt Rate > 60; Glucose Random 381 mg/dL (60-115); Potassium 4.1 mmol/L (3.3-5.1); Sodium 137 mmol/L (135-145)
== END 2022-04-01 05:52 | disposition home or self-care (01) ==
LOC: HO.MMNH2L 05:51
PROVIDERS: Visit Provider Family Medicine
DX: Z02.2 Encounter for examination for admission to residential institution (principal)
CPT/HCPCS: 36415; 80053; 85025

== ENCOUNTER 2022-04-04 06:39 | Outpatient (REF) | payer MEDICARE, MEDICAID, SELFPAY ==
[2022-04-04 06:37] LABS: MANUAL DIFF FLAG NO
[2022-04-04 06:51] LABS: Basophils Percent Auto 0.3 % (0-2); Eosinophils Absolute Auto 0.3 X10*3/uL (0.0-0.4); Eosinophils Percent Auto 4.6 % (0-4); Hemoglobin 12.9 g/dl (12.0-16.0); Imm Gran Abs Auto 0.01 X10*3/uL (0.00-0.03); Imm Gran Pct Auto 0.2 % (0.0-0.4); Lymphocytes Absolute Auto 1.5 X10*3/uL (1.2-4.9); Lymphocytes Percent Auto 23.7 % (20-40); Mean Corpuscular HGB Conc 31.5 g/dl (31.0-35.0); Mean Corpuscular Volume 88.9 fL (80.0-98.0); Mean Platelet Volume 11.7 fL (9.4-12.3); Monocytes Absolute Auto 0.6 X10*3/uL (0.1-1.2); Monocytes Percent Auto 9.1 % (2-11); Neutrophils Absolute Auto 3.9 x10*3/uL (2.0-8.3); Neutrophils Percent Auto 62.1 % (45-73); Platelet Count 166 X10*3/uL (160-400); Red Blood Count 4.61 X10*6/uL (4.20-5.50); White Blood Count 6.2 X10*3/uL (4.8-10.8)
[2022-04-04 07:11] LABS: Anion Gap 15 (12-20); Blood Urea Nitrogen 9 mg/dL (9-16); Calcium 9.1 mg/dL (8.4-10.2); Carbon Dioxide 33 mmol/L (22-29); Chloride 100 mmol/L (96-108); Estimated Glomerular Filt Rate > 60; Glucose Random 108 mg/dL (60-115); Potassium 3.8 mmol/L (3.3-5.1); Sodium 144 mmol/L (135-145)
== END 2022-04-04 06:40 | disposition home or self-care (01) ==
LOC: HO.MMNH2L 06:39
PROVIDERS: Visit Provider Family Medicine
DX: Z02.2 Encounter for examination for admission to residential institution (principal)
CPT/HCPCS: 36415; 80048; 85025

== ENCOUNTER 2022-04-11 07:37 | Outpatient (REF) | payer MEDICARE, MEDICAID, SELFPAY ==
[2022-04-11 07:20] LABS: MANUAL DIFF FLAG NO
[2022-04-11 07:42] LABS: Basophils Percent Auto 0.3 % (0-2); Eosinophils Absolute Auto 0.2 X10*3/uL (0.0-0.4); Eosinophils Percent Auto 3.5 % (0-4); Hematocrit 39.8 % (37.0-47.0); Hemoglobin 12.6 g/dl (12.0-16.0); Imm Gran Abs Auto 0.03 X10*3/uL (0.00-0.03); Imm Gran Pct Auto 0.5 % (0.0-0.4); Lymphocytes Absolute Auto 1.1 X10*3/uL (1.2-4.9); Lymphocytes Percent Auto 16.7 % (20-40); Mean Corpuscular HGB Conc 31.7 g/dl (31.0-35.0); Mean Corpuscular Hemoglobin 28.1 pg (27.0-33.0); Mean Corpuscular Volume 88.8 fL (80.0-98.0); Mean Platelet Volume 11.7 fL (9.4-12.3); Monocytes Absolute Auto 0.6 X10*3/uL (0.1-1.2); Neutrophils Absolute Auto 4.5 x10*3/uL (2.0-8.3); Platelet Count 161 X10*3/uL (160-400); Red Blood Count 4.48 X10*6/uL (4.20-5.50); Red Cell Distribution Width 15.5 % (11.0-16.0); White Blood Count 6.4 X10*3/uL (4.8-10.8)
[2022-04-11 07:55] LABS: Anion Gap 14 (12-20); Blood Urea Nitrogen 13 mg/dL (9-16); Calcium 8.8 mg/dL (8.4-10.2); Carbon Dioxide 34 mmol/L (22-29); Chloride 98 mmol/L (96-108); Estimated Glomerular Filt Rate > 60; Glucose Random 68 mg/dL (60-115); Potassium 3.9 mmol/L (3.3-5.1); Sodium 142 mmol/L (135-145)
== END 2022-04-11 07:38 | disposition home or self-care (01) ==
LOC: HO.MMNH2L 07:37
PROVIDERS: Visit Provider Family Medicine
DX: Z00.00 Encounter for general adult medical examination without abnormal findings (principal)
CPT/HCPCS: 36415; 80048; 85025

== ENCOUNTER 2022-04-15 17:55 | Outpatient (REF) | payer MEDICARE, MEDICAID, SELFPAY ==
[2022-04-15 18:09] LABS: Appearance Urine Clear; Color Urine Yellow; Glucose Urine UA Negative (Negative); Leukocyte Esterase Urine Large (3+) (Negative); Nitrite Urine Positive (Negative); PH 7.5 (5.0-9.0); Specific Gravity - Urine <= 1.005 (1.005-1.025); UMIC TRIGGER UA YES; Urine Blood Large (3+) (Negative); Urine Ketones Negative (Negative); Urine Protein 30 (1+) mg/dL (Neg-Trace)
[2022-04-15 18:27] LABS: Bacteria Urine 4+ (None Seen); Hyaline Casts Urine 0-2 /LPF (0-2); Squamous Epithelial Cell Urine 0-2 /HPF (0-2)
== END 2022-04-15 17:56 | disposition home or self-care (01) ==
LOC: HO.MMNH2L 17:55
PROVIDERS: Visit Provider Family Medicine
DX: J44.9 Chronic obstructive pulmonary disease, unspecified (principal); E11.40 Type 2 diabetes mellitus with diabetic neuropathy, unspecified
CPT/HCPCS: 81001; 87086

== ENCOUNTER 2022-04-18 06:28 | Outpatient (REF) | payer MEDICARE, SELFPAY ==
[2022-04-18 07:01] LABS: Anion Gap 14 (12-20); Blood Urea Nitrogen 10 mg/dL (9-16); Calcium 8.7 mg/dL (8.4-10.2); Carbon Dioxide 31 mmol/L (22-29); Chloride 97 mmol/L (96-108); Estimated Glomerular Filt Rate > 60; Glucose Random 110 mg/dL (60-115); Hematocrit 38.5 % (37.0-47.0); Hemoglobin 12.2 g/dl (12.0-16.0); Mean Corpuscular HGB Conc 31.7 g/dl (31.0-35.0); Mean Corpuscular Volume 88.5 fL (80.0-98.0); Mean Platelet Volume 11.9 fL (9.4-12.3); Platelet Count 171 X10*3/uL (160-400); Potassium 3.8 mmol/L (3.3-5.1); Red Blood Count 4.35 X10*6/uL (4.20-5.50); Red Cell Distribution Width 15.9 % (11.0-16.0); Sodium 138 mmol/L (135-145); White Blood Count 6.4 X10*3/uL (4.8-10.8)
== END 2022-04-18 06:29 | disposition home or self-care (01) ==
LOC: HO.MMNH2L 06:28
PROVIDERS: Visit Provider Family Medicine
DX: Z02.2 Encounter for examination for admission to residential institution (principal)
CPT/HCPCS: 36415; 80048; 85027

== ENCOUNTER 2022-04-25 06:22 | Outpatient (REF) | payer MEDICARE, MEDICAID, SELFPAY ==
[2022-04-25 06:46] LABS: Hematocrit 40.8 % (37.0-47.0); Hemoglobin 12.6 g/dl (12.0-16.0); Mean Corpuscular HGB Conc 30.9 g/dl (31.0-35.0); Mean Corpuscular Hemoglobin 27.3 pg (27.0-33.0); Mean Corpuscular Volume 88.5 fL (80.0-98.0); Mean Platelet Volume 11.6 fL (9.4-12.3); Platelet Count 182 X10*3/uL (160-400); Red Blood Count 4.61 X10*6/uL (4.20-5.50); Red Cell Distribution Width 15.9 % (11.0-16.0); White Blood Count 6.3 X10*3/uL (4.8-10.8)
[2022-04-25 07:22] LABS: Anion Gap 15 (12-20); Blood Urea Nitrogen 10 mg/dL (9-16); Calcium 8.8 mg/dL (8.4-10.2); Carbon Dioxide 35 mmol/L (22-29); Chloride 94 mmol/L (96-108); Estimated Glomerular Filt Rate > 60; Glucose Random 213 mg/dL (60-115); Potassium 4.1 mmol/L (3.3-5.1); Sodium 140 mmol/L (135-145)
== END 2022-04-25 06:23 | disposition home or self-care (01) ==
LOC: HO.MMNH2L 06:22
PROVIDERS: Visit Provider Family Medicine
DX: Z02.2 Encounter for examination for admission to residential institution (principal)
CPT/HCPCS: 36415; 80048; 85027

== ENCOUNTER 2022-05-10 06:38 | Outpatient (REF) | payer MEDICARE, MEDICAID, SELFPAY ==
[2022-05-10 06:40] LABS: MANUAL DIFF FLAG NO
[2022-05-10 06:45] LABS: Basophils Percent Auto 0.3 % (0-2); Eosinophils Absolute Auto 0.4 X10*3/uL (0.0-0.4); Eosinophils Percent Auto 4.6 % (0-4); Hematocrit 41.9 % (37.0-47.0); Imm Gran Abs Auto 0.04 X10*3/uL (0.00-0.03); Imm Gran Pct Auto 0.4 % (0.0-0.4); Lymphocytes Absolute Auto 1.4 X10*3/uL (1.2-4.9); Lymphocytes Percent Auto 15.3 % (20-40); Mean Corpuscular Hemoglobin 27.2 pg (27.0-33.0); Mean Corpuscular Volume 87.7 fL (80.0-98.0); Mean Platelet Volume 11.7 fL (9.4-12.3); Monocytes Absolute Auto 0.8 X10*3/uL (0.1-1.2); Neutrophils Absolute Auto 6.5 x10*3/uL (2.0-8.3); Neutrophils Percent Auto 70.4 % (45-73); Platelet Count 188 X10*3/uL (160-400); Red Blood Count 4.78 X10*6/uL (4.20-5.50); Red Cell Distribution Width 16.5 % (11.0-16.0); White Blood Count 9.2 X10*3/uL (4.8-10.8)
[2022-05-10 07:13] LABS: Alanine Aminotransferase 23 U/L (0-31); Albumin Level 3.4 g/dL (3.5-5.0); Alkaline Phosphatase 99 U/L (39-117); Anion Gap 14 (12-20); Aspartate Amino Transferase 11 U/L (5-31); Bilirubin Total 0.6 mg/dL (0.0-1.0); Blood Urea Nitrogen 20 mg/dL (9-16); Calcium 8.6 mg/dL (8.4-10.2); Carbon Dioxide 34 mmol/L (22-29); Chloride 90 mmol/L (96-108); Estimated Glomerular Filt Rate > 60; Glucose Random 425 mg/dL (60-115); Potassium 3.9 mmol/L (3.3-5.1); Sodium 134 mmol/L (135-145); Total Protein 5.8 g/dL (6.5-8.0)
== END 2022-05-10 06:39 | disposition home or self-care (01) ==
LOC: HO.MMNH2L 06:38
PROVIDERS: Visit Provider Family Medicine
DX: J44.9 Chronic obstructive pulmonary disease, unspecified (principal)
CPT/HCPCS: 36415; 80053; 85025

== ENCOUNTER 2022-05-17 05:35 | Outpatient (REF) | payer MEDICARE, MEDICAID, SELFPAY ==
[2022-05-17 05:37] LABS: MANUAL DIFF FLAG NO
[2022-05-17 05:52] LABS: Basophils Percent Auto 0.2 % (0-2); Eosinophils Absolute Auto 0.4 X10*3/uL (0.0-0.4); Eosinophils Percent Auto 4.4 % (0-4); Hematocrit 39.6 % (37.0-47.0); Hemoglobin 12.5 g/dl (12.0-16.0); Imm Gran Abs Auto 0.03 X10*3/uL (0.00-0.03); Imm Gran Pct Auto 0.3 % (0.0-0.4); Lymphocytes Absolute Auto 1.7 X10*3/uL (1.2-4.9); Lymphocytes Percent Auto 19.5 % (20-40); Mean Corpuscular HGB Conc 31.6 g/dl (31.0-35.0); Mean Corpuscular Hemoglobin 27.5 pg (27.0-33.0); Mean Platelet Volume 12.1 fL (9.4-12.3); Monocytes Absolute Auto 0.9 X10*3/uL (0.1-1.2); Monocytes Percent Auto 9.8 % (2-11); Neutrophils Absolute Auto 5.8 x10*3/uL (2.0-8.3); Neutrophils Percent Auto 65.8 % (45-73); Platelet Count 169 X10*3/uL (160-400); Red Blood Count 4.55 X10*6/uL (4.20-5.50); Red Cell Distribution Width 15.6 % (11.0-16.0); White Blood Count 8.8 X10*3/uL (4.8-10.8)
[2022-05-17 06:04] LABS: Anion Gap 17 (12-20); Blood Urea Nitrogen 11 mg/dL (9-16); Calcium 8.6 mg/dL (8.4-10.2); Carbon Dioxide 34 mmol/L (22-29); Chloride 87 mmol/L (96-108); Estimated Glomerular Filt Rate > 60; Glucose Random 301 mg/dL (60-115); Potassium 3.7 mmol/L (3.3-5.1); Sodium 134 mmol/L (135-145)
== END 2022-05-17 05:36 | disposition home or self-care (01) ==
LOC: HO.MMNH2L 05:35
PROVIDERS: Visit Provider Family Medicine
DX: I10 Essential (primary) hypertension (principal)
CPT/HCPCS: 36415; 80048; 85025

== ENCOUNTER 2022-05-23 06:30 | Outpatient (REF) | payer MEDICARE, MEDICAID, SELFPAY ==
[2022-05-23 06:24] LABS: MANUAL DIFF FLAG NO
[2022-05-23 06:52] LABS: Basophils Percent Auto 0.1 % (0-2); Eosinophils Absolute Auto 0.3 X10*3/uL (0.0-0.4); Eosinophils Percent Auto 3.9 % (0-4); Hemoglobin 12.9 g/dl (12.0-16.0); Imm Gran Abs Auto 0.02 X10*3/uL (0.00-0.03); Imm Gran Pct Auto 0.2 % (0.0-0.4); Lymphocytes Absolute Auto 1.7 X10*3/uL (1.2-4.9); Lymphocytes Percent Auto 20.8 % (20-40); Mean Corpuscular HGB Conc 33.1 g/dl (31.0-35.0); Mean Corpuscular Volume 84.6 fL (80.0-98.0); Mean Platelet Volume 11.3 fL (9.4-12.3); Monocytes Absolute Auto 0.7 X10*3/uL (0.1-1.2); Monocytes Percent Auto 8.6 % (2-11); Neutrophils Absolute Auto 5.4 x10*3/uL (2.0-8.3); Neutrophils Percent Auto 66.4 % (45-73); Platelet Count 184 X10*3/uL (160-400); Red Blood Count 4.61 X10*6/uL (4.20-5.50); White Blood Count 8.2 X10*3/uL (4.8-10.8)
[2022-05-23 07:32] LABS: Anion Gap 16 (12-20); Blood Urea Nitrogen 13 mg/dL (9-16); Calcium 8.9 mg/dL (8.4-10.2); Carbon Dioxide 37 mmol/L (22-29); Chloride 84 mmol/L (96-108); Estimated Glomerular Filt Rate > 60; Glucose Random 284 mg/dL (60-115); Potassium 3.5 mmol/L (3.3-5.1); Sodium 133 mmol/L (135-145)
== END 2022-05-23 06:31 | disposition home or self-care (01) ==
LOC: HO.MMNH2L 06:30
PROVIDERS: Visit Provider Family Medicine
DX: I10 Essential (primary) hypertension (principal); Z11.4 Encounter for screening for human immunodeficiency virus [HIV]
CPT/HCPCS: 36415; 80048; 85025

== ENCOUNTER 2022-07-18 01:19 | Emergency (ER) | payer MEDICARE, MEDICAID, SELFPAY ==
[2022-07-18 01:30] VITALS: BP 150/90; BP 172/92; PULSE 82; RESP 16; TEMP 36.6; O2SAT 94; BMI 45.5
--- NOTE | 2022-07-18 01:34 | ED_ITS ---
HPI - Female Genitourinary General Chief complaint: General Medical Stated complaint: Blood in urine Time Seen by Provider: 07/18/22 01:26 Source: patient and EMS Mode of arrival: EMS Limitations: no limitations History of Present Illness HPI Narrative: 71-year-old female live with a chronic indwelling Molina catheter, patient recently diagnosed with UTI patient on Macrobid currently feet feeling dysuria and burning sensation despite having the Molina catheter, patient also see a dark urine think that is bloody patient is on Eliquis. Related Data Home Medications Medication Instructions Recorded Confirmed albuterol sulfate 90 mcg/actuation 2 puff inhalation Q4-6H PRN 01/23/21 03/17/22 aerosol inhaler (Proventil HFA) Wheezing apixaban 5 mg tablet (Eliquis) 5 mg PO BID 01/23/21 03/17/22 gabapentin 300 mg capsule 300 mg PO BID 01/23/21 03/17/22 lisinopril 5 mg tablet 5 mg PO DAILY 01/23/21 03/17/22 simvastatin 40 mg tablet 40 mg PO BEDTIME 01/23/21 03/17/22 Lactobacillus rhamnosus GG 10 1 cap PO DAILY 10/24/21 03/17/22 billion cell capsule (Culturelle) aspirin 81 mg tablet,delayed 81 mg PO DAILY 10/24/21 03/17/22 release fluticasone propionate 100 1 puff PO BID 10/24/21 03/17/22 mcg/actuation blister powder for inhalation (Flovent Diskus) insulin glargine 100 unit/mL (3 64 unit subcut DAILY 10/24/21 03/17/22 mL) subcutaneous pen (Lantus Solostar U-100 Insulin) furosemide 40 mg tablet 40 mg PO BID 03/09/22 03/17/22 metformin 850 mg tablet 850 mg PO BIDWM 03/09/22 03/17/22 metoprolol tartrate 50 mg tablet 50 mg PO BID 03/09/22 03/17/22 ergocalciferol (vitamin D2) 1,250 1 cap PO WE@0900 03/17/22 03/17/22 mcg (50,000 unit) capsule fluticasone propionate 50 1 spray intranasal BID 03/17/22 03/17/22 mcg/actuation nasal spray,suspension insulin lispro 100 unit/mL See Protocol subcut TIDAC 03/17/22 03/17/22 subcutaneous pen (Humalog KwikPen (U-100) Insulin) nystatin 100,000 unit/gram topical 1 appl topical BID PRN Rash 03/17/22 03/17/22 powder Previous Rx's Medication Instructions Recorded ipratropium 0.5 mg-albuterol 3 mg 3 ml inhalation RQ4H WHILE AWAKE 03/19/22 (2.5 mg base)/3 mL nebulization PRN Shortness Of Breath Or soln Wheezing #300 mL nebulizers #1 ea 03/19/22 prednisone 20 mg tablet 40 mg PO DAILY #6 tabs 03/19/22 Allergies Allergy/AdvReac Type Severity Reaction Status Date / Time silver sulfadiazine Allergy Unknown UNK Verified 03/17/22 04:34 [From TRINY] Review of Systems Review of Systems: All other systems are reviewed and are negative Constitutional: Reports as per HPI and Reports no additional constitutional complaints Eyes: Reports as per HPI and Reports no additional eye complaints Reports system reviewed and no additional complaints, except as documented Cardiovascular: Reports as per HPI and Reports no additional cardiovascular complaints Respiratory: Reports as per HPI and Reports no additional respiratory complaints Gastrointestinal: Reports as per HPI and Reports no additional gastrointestinal complaints Genitourinary: Reports no additional female genitourinary complaints Musculoskeletal: Reports no additional musculoskeletal complaints Skin/Breast: Reports system reviewed and no additional complaints, except as docu Psychiatric: Reports no additional psychiatric complaints Endocrine: Reports no additional endocrine complaints Hematologic/Lymphatic: Reports no additional hematologic/lymphatic complaints Allergic/Immunologic: Reports no additional allergic/immunologic complaints Reports system reviewed and no additional complaints, except as documented and Reports Abnormal speech present [facility] Past Medical History Medical History Aortic stenosis Bacteriuria Chronic heart failure with preserved ejection fraction (HFpEF) Chronic hypoxemic respiratory failure Chronic indwelling Molina catheter Chronic UTI Chronic UTI Congestive heart failure COPD (chronic obstructive pulmonary disease) Diabetes Diarrhea Glaucoma H/O: CVA (cerebrovascular accident) Hypertension Hypotonic neurogenic bladder Non-rheumatic aortic stenosis Obesity Obstructive sleep apnea Osteoarthritis Paroxysmal atrial fibrillation Severe sepsis UTI (urinary tract infection) Surgical History H/O adenoidectomy H/O enucleation of left eyeball History of tonsillectomy Family History Family History Father No problems noted. Mother No problems noted. Social History Social History Household Members: None Housing: Apartment Do you presently have visiting nurse or other home services: Yes (also has education professional' s) Unable to assess alcohol history related to: Unknown Alcohol intake: never Patient Tobacco Use Status: Never used Tobacco Second Hand Smoke Exposure: No Advance Directives: Yes Advance Directives on File: Yes Advance Directives Date on File: 07/09/20 service: No Current occupational status: disabled Physical Exam Vital Signs: Vital Signs: Last Vital Signs Temp 97.9 F 07/18/22 01:30 Pulse 82 07/18/22 01:30 Resp 16 07/18/22 01:30 BP 172/92 H 07/18/22 01:30 Pulse Ox 94 07/18/22 01:30 O2 Del Method 07/18/22 01:30 BMI result Body Mass Index 45.5 Vital signs have been reviewed as appeared to be correct. Blood pressure normal. Heart rate normal. Respiration rate normal. Temperature normal. Oxygen saturation normal. Appearance: Alert. Oriented X3. No acute distress. Head: Normal external exam. Normocephalic. Atraumatic. No [place] signs noted. No raccoon eyes noted Eyes: PERRLA. EOMI. Conjunctiva and sclera normal. Eyelids normal. ENT: TM's Normal. Pharynx normal. Uvula midline. Moist mucous membranes. No trismus noted. No drooling noted. No muffled voice noted. Neck: Normal inspection. Neck supple. FROM. No adenopathy. Thyroid Normal. No meningeal signs. No neck mass noted. CVS: Normal heart rate and rhythm. Heart sound normal. No murmurs noted. Pulses normal throughout. Respiratory: No respiratory distress. Painless inspiration. Breath sounds normal. No wheezes/rales/rhonchi noted. Chest nontender. No accessory muscle usage noted or decreased air movement noted. Abdomen: Soft and nontender. Bowel sounds normal in all 4 quadrants. No distention noted. No organomegaly noted. No visible injury noted. Back: No CVA tenderness. Full range of motion noted. Skin: Skin warm and dry. Normal skin color. Normal skin turgor. No rashes/lesions/lacerations noted. Extremities: No lower extremity edema. Extremities exhibit normal range of motion. Extremities nontender. Neuro: Oriented X 3. Cranial nerve exam: II-XII are grossly intact No motor deficit. No sensory deficit. Reflexes normal. Course Course Course Narrative: Molina catheter was changed in the emergency department now the urine is clear with no blood or blood clots, patient likely have chronic colonization due to chronic indwelling Molina catheter. Patient is already taking antibiotic patient was instructed to continue with her antibiotic and drink plenty of fluids. Medical Decision Making Differential Diagnosis Differential Diagnoses: The differential diagnosis associated with the presentation includes (Molina catheter complication, infection, bleeding.) Lab Data MDM Lab Attestation statement: I reviewed the patient's lab results. 07/18/22 01:58 07/18/22 01:58 Labs: Lab Results 07/18/22 07/18/22 07/18/22 Range/Units 01:58 01:58 01:58 WBC 9.1 (4.8-10.8) X10*3/uL RBC 5.13 (4.20-5.50) X10*6/uL Hgb 14.2 (12.0-16.0) g/dl Hct 44.4 (37.0-47.0) % MCV 86.5 (80.0-98.0) fL MCH 27.7 (27.0-33.0) pg MCHC 32.0 (31.0-35.0) g/dl RDW 14.5 (11.0-16.0) % Plt Count 167 (160-400) X10*3/uL MPV 11.6 (9.4-12.3) fL Immature Gran % (Auto) 0.3 (0.0-0.4) % Neut % (Auto) 68.7 (45-73) % Lymph % (Auto) 18.5 L (20-40) % [place] % (Auto) 6.6 (2-11) % Eos % (Auto) 5.6 H (0-4) % Baso % (Auto) 0.3 (0-2) % Lymph # (Auto) 1.7 (1.2-4.9) X10*3/uL [place] # (Auto) 0.6 (0.1-1.2) X10*3/uL Eos # (Auto) 0.5 H (0.0-0.4) X10*3/uL Baso # (Auto) 0.0 (0.0-0.2) X10*3/uL Abs Immat Gran (auto) 0.03 (0.00-0.03) X10*3/uL Absolute Neuts (auto) 6.3 (2.0-8.3) x10*3/uL Absolute Nucleated RBC 0.000 (0.0-0.012) X10*3/uL Nucleated RBC % (auto) 0.0 (0.0-0.2) /100WBC PT 13.1 (10.0-13.1) SEC INR 1.1 (0.9-1.1) APTT 30.3 (26.0-36.4) SEC Sodium 136 (135-145) mmol/L Potassium 4.1 (3.3-5.1) mmol/L Chloride 92 L (96-108) mmol/L Carbon Dioxide 37 H (22-29) mmol/L Anion Gap 11 L (12-20) BUN 19 H (9-16) mg/dL Creatinine 0.75 (0.5-1.4) mg/dL Estim Creat Clear Calc 95.5 Estimated GFR > 60 Random Glucose 259 H (60-115) mg/dL Calcium 9.5 D (8.4-10.2) mg/dL Urine Color Urine Appearance Urine pH (5.0-9.0) Ur Specific [place] (1.005-1.025) Urine Protein (Neg-Trace) mg/dL Urine Glucose (UA) (Negative) mg/dL Urine Ketones (Negative) mg/dL Urine Blood (Negative) Urine Nitrite (Negative) Ur Leukocyte Esterase (Negative) Urine RBC (0-2) /HPF Urine WBC (0-5) /HPF Ur Squamous Epith Cells (0-2) /HPF Urine Bacteria (None Seen) Hyaline Casts (0-2) /LPF 07/18/22 Range/Units 03:04 WBC (4.8-10.8) X10*3/uL RBC (4.20-5.50) X10*6/uL Hgb (12.0-16.0) g/dl Hct (37.0-47.0) % MCV (80.0-98.0) fL MCH (27.0-33.0) pg MCHC (31.0-35.0) g/dl RDW (11.0-16.0) % Plt Count (160-400) X10*3/uL MPV (9.4-12.3) fL Immature Gran % (Auto) (0.0-0.4) % Neut % (Auto) (45-73) % Lymph % (Auto) (20-40) % [place] % (Auto) (2-11) % Eos % (Auto) (0-4) % Baso % (Auto) (0-2) % Lymph # (Auto) (1.2-4.9) X10*3/uL [place] # (Auto) (0.1-1.2) X10*3/uL Eos # (Auto) (0.0-0.4) X10*3/uL Baso # (Auto) (0.0-0.2) X10*3/uL Abs Immat Gran (auto) (0.00-0.03) X10*3/uL Absolute Neuts (auto) (2.0-8.3) x10*3/uL Absolute Nucleated RBC (0.0-0.012) X10*3/uL Nucleated RBC % (auto) (0.0-0.2) /100WBC PT (10.0-13.1) SEC INR (0.9-1.1) APTT (26.0-36.4) SEC Sodium (135-145) mmol/L Potassium (3.3-5.1) mmol/L Chloride (96-108) mmol/L Carbon Dioxide (22-29) mmol/L Anion Gap (12-20) BUN (9-16) mg/dL Creatinine (0.5-1.4) mg/dL Estim Creat Clear Calc Estimated GFR Random Glucose (60-115) mg/dL Calcium (8.4-10.2) mg/dL Urine Color Yellow Urine Appearance Clear Urine pH 7.5 (5.0-9.0) Ur Specific [place] <= 1.005 (1.005-1.025) Urine Protein Trace (Neg-Trace) mg/dL Urine Glucose (UA) Negative (Negative) mg/dL Urine Ketones Negative (Negative) mg/dL Urine Blood Moderate (2+) H (Negative) Urine Nitrite Negative (Negative) Ur Leukocyte Esterase Moderate (2+) H (Negative) Urine RBC 3-5 H (0-2) /HPF Urine WBC 11-20 H (0-5) /HPF Ur Squamous Epith Cells 0-2 (0-2) /HPF Urine Bacteria None Seen (None Seen) Hyaline Casts 0-2 (0-2) /LPF Discharge Plan Discharge Clinical Impression: Complication of Molina catheter Patient Disposition: Home, Self-Care Instructions: Catheter-associated Urinary Tract Infection (ED) Additional Instructions: Continue with your antibiotic and drink plenty of fluids. Prescriptions: No Action simvastatin 40 mg tablet 40 mg PO BEDTIME gabapentin 300 mg capsule 300 mg PO BID lisinopril 5 mg tablet 5 mg PO DAILY albuterol sulfate [Proventil HFA] 90 mcg/actuation HFA aerosol inhaler 2 puff inhalation Q4-6H PRN (Reason: Wheezing) Eliquis 5 mg tablet 5 mg PO BID ergocalciferol (vitamin D2) 1,250 mcg (50,000 unit) capsule 1 cap PO WE@0900 nystatin 100,000 unit/gram powder 1 appl topical BID PRN (Reason: Rash) fluticasone propionate 50 mcg/actuation spray,suspension 1 spray intranasal BID insulin lispro [Humalog KwikPen Insulin] 100 unit/mL insulin pen See Protocol subcut TIDAC Protocol: Insulin Correction Scale Less than or equal to 110 ---- Give (units): 0 111 to 150 Give (units): 0 151 to 200 Give (units): 2 201 to 250 Give (units): 4 251 to 300 Give (units): 6 301 to 350 Give (units): 8 Greater than 350 Give (units): 10 Call MD if Blood Glucose > : 350 ipratropium-albuterol 0.5 mg-3 mg(2.5 mg base)/3 mL Solution For Nebulization 3 ml inhalation RQ4H WHILE AWAKE PRN (Reason: Shortness Of Breath Or Wheezing) Qty: 300 0RF (DME) nebulizers Misc See Rx Instructions .Route Qty: 1 0RF Rx Instructions: As directed prednisone 20 mg tablet 40 mg PO DAILY Qty: 6 0RF Flovent Diskus 100 mcg/actuation blister with device 1 puff PO BID insulin glargine [Lantus Solostar U-100 Insulin] 100 unit/mL (3 mL) insulin pen 64 unit subcut DAILY aspirin 81 mg Tablet,Delayed Release (Dr/Ec) 81 mg PO DAILY Culturelle 10 billion cell Capsule 1 cap PO DAILY metformin 850 mg tablet 850 mg PO BIDWM metoprolol tartrate 50 mg tablet 50 mg PO BID furosemide 40 mg tablet 40 mg PO BID
[2022-07-18 02:04] LABS: Basophils Percent Auto 0.3 % (0-2); Eosinophils Absolute Auto 0.5 X10*3/uL (0.0-0.4); Eosinophils Percent Auto 5.6 % (0-4); Hematocrit 44.4 % (37.0-47.0); Hemoglobin 14.2 g/dl (12.0-16.0); Imm Gran Abs Auto 0.03 X10*3/uL (0.00-0.03); Imm Gran Pct Auto 0.3 % (0.0-0.4); Lymphocytes Absolute Auto 1.7 X10*3/uL (1.2-4.9); Lymphocytes Percent Auto 18.5 % (20-40); MANUAL DIFF FLAG NO; Mean Corpuscular Hemoglobin 27.7 pg (27.0-33.0); Mean Corpuscular Volume 86.5 fL (80.0-98.0); Mean Platelet Volume 11.6 fL (9.4-12.3); Monocytes Absolute Auto 0.6 X10*3/uL (0.1-1.2); Monocytes Percent Auto 6.6 % (2-11); Neutrophils Absolute Auto 6.3 x10*3/uL (2.0-8.3); Neutrophils Percent Auto 68.7 % (45-73); Platelet Count 167 X10*3/uL (160-400); Red Blood Count 5.13 X10*6/uL (4.20-5.50); Red Cell Distribution Width 14.5 % (11.0-16.0); White Blood Count 9.1 X10*3/uL (4.8-10.8)
[2022-07-18 02:15] LABS: INTERNATIONAL NORM RATIO 1.1 (0.9-1.1); Prothrombin Time 13.1 SEC (10.0-13.1)
--- NOTE | 2022-07-18 02:16 | PC.NURSE ---
pt presented to ed with catheter in place. Dr anderson placed order for new catheter to be put in place. previous catheter removed. at time of removed 77cc of saline removed from balloon. this rn place 24 fr catheter with assistance of ed techs. 30cc saline placed in balloon at this time. catheter secure at this time. catheter draining pale clear yellow urine immediately upon insertion. pt tolerated well
[2022-07-18 02:18] LABS: Partial Thromboplastin Time 30.3 SEC (26.0-36.4)
[2022-07-18 02:20] LABS: Anion Gap 11 (12-20); Blood Urea Nitrogen 19 mg/dL (9-16); Calcium 9.5 mg/dL (8.4-10.2); Carbon Dioxide 37 mmol/L (22-29); Chloride 92 mmol/L (96-108); Creatinine Clr Calc Pharmacy 95.5; Estimated Glomerular Filt Rate > 60; Glucose Random 259 mg/dL (60-115); Potassium 4.1 mmol/L (3.3-5.1); Sodium 136 mmol/L (135-145)
[2022-07-18 03:12] LABS: Appearance Urine Clear; Color Urine Yellow; Glucose Urine UA Negative (Negative); Leukocyte Esterase Urine Moderate (2+) (Negative); Nitrite Urine Negative (Negative); PH 7.5 (5.0-9.0); Specific Gravity - Urine <= 1.005 (1.005-1.025); UMIC TRIGGER UACC YES; Urine Blood Moderate (2+) (Negative); Urine Ketones Negative (Negative); Urine Protein Trace mg/dL (Neg-Trace)
[2022-07-18 03:19] LABS: Bacteria Urine None Seen (None Seen); Hyaline Casts Urine 0-2 /LPF (0-2); Squamous Epithelial Cell Urine 0-2 /HPF (0-2); UACC Culture Trigger YES
--- NOTE | 2022-07-18 04:35 | PC.NURSE ---
pt resting comfortably on stretcher. provided with warm blanket. rai catheter draining pale yellow urine appropriately at this time
--- NOTE | 2022-07-18 04:39 | MHC.EDTECH ---
Marisol called at 0435 for a bls transfer home,[facility] within 30mins.Rn aware
[2022-07-18 04:56] VITALS: BP 140/70; PULSE 78; RESP 18; TEMP 36.6; O2SAT 94
--- NOTE | 2022-07-18 05:31 | PC.NURSE ---
pt reports 0/10 pain at this time. ems draft roller picker at discharge. pt provided with discharge packet. pt verbalized understanding of discharge plan
== END 2022-07-18 05:00 | disposition home or self-care (01) ==
PROVIDERS: Emergency Provider Emergency Medicine
DX: T83.511A Infection and inflammatory reaction due to indwelling urethral catheter, initial encounter (principal); T83.091A Other mechanical complication of indwelling urethral catheter, initial encounter; Y82.8 Other medical devices associated with adverse incidents; Y92.039 Unspecified place in apartment as the place of occurrence of the external cause; E11.9 Type 2 diabetes mellitus without complications; I11.0 Hypertensive heart disease with heart failure; I50.9 Heart failure, unspecified; I48.0 Paroxysmal atrial fibrillation; E66.9 Obesity, unspecified; Z68.42 Body mass index [BMI] 45.0-49.9, adult; Z87.440 Personal history of urinary (tract) infections; Z86.73 Personal history of transient ischemic attack (TIA), and cerebral infarction without residual deficits; Z96.0 Presence of urogenital implants; Z79.01 Long term (current) use of anticoagulants; Z79.02 Long term (current) use of antithrombotics/antiplatelets; Z79.82 Long term (current) use of aspirin; Z79.4 Long term (current) use of insulin; Z79.899 Other long term (current) drug therapy
CPT/HCPCS: 36415; 51702; 80048; 81001; 85025; 85610; 85730; 87086; 99284

== ENCOUNTER 2022-07-25 14:08 | Emergency (ER) | payer MEDICARE, MEDICAID, SELFPAY ==
--- NOTE | ~2022-07-25 | XR_ITS ---
EXAMINATION: XR CHEST CLINICAL INFORMATION: Shortness of breath. Rule out pneumonia COMPARISON: 03/17/2022 TECHNIQUE: 2 views of the chest were obtained. FINDINGS: Again seen is diffuse coarse interstitial markings with a suggestion of possible underlying patchy nodular opacities. The appearance is improved from 03/17/2022 but worsened compared to 12/15/2021. No pleural effusion. Tortuous aorta. Normal heart size. Degenerative changes of the spine and right greater than left shoulders. XR/XR chest 2V IMPRESSION: Again seen is diffuse coarse interstitial markings and possible patchy nodular airspace opacity. The appearance is improved from 03/17/2022 but worsened since 12/15/2021. The appearance is nonspecific. This could reflect interstitial and possible developing alveolar pulmonary edema although multifocal infection/inflammation including bronchitis and/or viral pneumonitis
[2022-07-25 14:27] VITALS: BP 124/46; PULSE 70; RESP 14; TEMP 36.9; O2SAT 92; BMI 48.4
--- NOTE | 2022-07-25 14:46 | ED.SOB ---
HPI - SOB/Dyspnea General Chief Complaint: Dyspnea Stated Complaint: SOB 100% RA PER EMS Time Seen by Provider: 07/25/22 14:27 Source: patient and EMS Mode of arrival: EMS Limitations: no limitations History of Present Illness HPI Narrative: 71-year-old female who presents emergency department for evaluation of shortness of breath. The patient states that she ran out of her albuterol nebulizer solution approximately 1 month prior (there is been a national shortage of this medication) and she was not able to get any from her pharmacy. She states she does have an inhaler which she uses but she states it is not as effective as they nebulizer solution. Patient states approximately 30 minutes prior to coming to the emergency department she felt short of breath and felt like she was having an asthma attack. She used her inhaler with no relief. She then called 911. She states she was given a nebulizer treatment EN route and feels significantly better. The patient denied fever, chills, rhinorrhea, sore throat, cough, chest pain. She states she did feel short of breath 30 minutes prior to coming to the emergency department was not feeling short of breath prior to that. She denied nausea, vomiting, diarrhea. She states that she was having urinary frequency but this has improved. She states she was on Macrobid and then was changed to Levaquin for urinary tract infection, she believes that she is still taking Levaquin. Related Data Home Medications Medication Instructions Recorded Confirmed albuterol sulfate 90 mcg/actuation 2 puff inhalation Q4-6H PRN 01/23/21 03/17/22 aerosol inhaler (Proventil HFA) Wheezing apixaban 5 mg tablet (Eliquis) 5 mg PO BID 01/23/21 03/17/22 gabapentin 300 mg capsule 300 mg PO BID 01/23/21 03/17/22 lisinopril 5 mg tablet 5 mg PO DAILY 01/23/21 03/17/22 simvastatin 40 mg tablet 40 mg PO BEDTIME 01/23/21 03/17/22 Lactobacillus rhamnosus GG 10 1 cap PO DAILY 10/24/21 03/17/22 billion cell capsule (Culturelle) aspirin 81 mg tablet,delayed 81 mg PO DAILY 10/24/21 03/17/22 release fluticasone propionate 100 1 puff PO BID 10/24/21 03/17/22 mcg/actuation blister powder for inhalation (Flovent Diskus) insulin glargine 100 unit/mL (3 64 unit subcut DAILY 10/24/21 03/17/22 mL) subcutaneous pen (Lantus Solostar U-100 Insulin) furosemide 40 mg tablet 40 mg PO BID 03/09/22 03/17/22 metformin 850 mg tablet 850 mg PO BIDWM 03/09/22 03/17/22 metoprolol tartrate 50 mg tablet 50 mg PO BID 03/09/22 03/17/22 ergocalciferol (vitamin D2) 1,250 1 cap PO WE@0900 03/17/22 03/17/22 mcg (50,000 unit) capsule fluticasone propionate 50 1 spray intranasal BID 03/17/22 03/17/22 mcg/actuation nasal spray,suspension insulin lispro 100 unit/mL See Protocol subcut TIDAC 03/17/22 03/17/22 subcutaneous pen (Humalog KwikPen (U-100) Insulin) nystatin 100,000 unit/gram topical 1 appl topical BID PRN Rash 03/17/22 03/17/22 powder Previous Rx's Medication Instructions Recorded ipratropium 0.5 mg-albuterol 3 mg 3 ml inhalation RQ4H WHILE AWAKE 03/19/22 (2.5 mg base)/3 mL nebulization PRN Shortness Of Breath Or soln Wheezing #300 mL nebulizers #1 ea 03/19/22 prednisone 20 mg tablet 40 mg PO DAILY #6 tabs 03/19/22 albuterol sulfate 2.5 mg/3 mL 2.5 mg (3 mL) inhalation Q4-6H PRN 07/25/22 (0.083 %) solution for nebulization shortness of breath or wheezing #75 mL albuterol sulfate 90 mcg/actuation 2 puff inhalation Q4-6H PRN 07/25/22 aerosol inhaler (ProAir HFA) shortness of breath or wheezing #8.5 grams prednisone 20 mg tablet 60 mg PO DAILY 5 days #15 tabs 07/25/22 Allergies Allergy/AdvReac Type Severity Reaction Status Date / Time silver sulfadiazine Allergy Unknown UNK Verified 03/17/22 04:34 [From TRINY] Review of Systems Review of Systems: Yes all other systems are reviewed and are negative [facility] Past Medical History [facility] Narrative: Social history: She denies tobacco, alcohol and drug use. She states she lives alone but does have help that comes in at least once a day. Medical History Aortic stenosis Bacteriuria Chronic heart failure with preserved ejection fraction (HFpEF) Chronic hypoxemic respiratory failure Chronic indwelling Molina catheter Chronic UTI Chronic UTI Congestive heart failure COPD (chronic obstructive pulmonary disease) Diabetes Diarrhea Glaucoma H/O: CVA (cerebrovascular accident) Hypertension Hypotonic neurogenic bladder Non-rheumatic aortic stenosis Obesity Obstructive sleep apnea Osteoarthritis Paroxysmal atrial fibrillation Severe sepsis UTI (urinary tract infection) Surgical History H/O adenoidectomy H/O enucleation of left eyeball History of tonsillectomy Family History Family History Father No problems noted. Mother No problems noted. 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) Unable to assess alcohol history related to: Unknown Alcohol intake: never Patient Tobacco Use Status: Never used Tobacco Second Hand Smoke Exposure: No Advance Directives: Yes Advance Directives on File: Yes Advance Directives Date on File: 07/09/20 service: No Current occupational status: disabled Physical Exam Vital Signs: Vital Signs: Last Vital Signs Temp 98.4 F 07/25/22 14:27 Pulse 67 07/25/22 15:10 Resp 18 07/25/22 15:10 BP 124/46 L 07/25/22 14:27 Pulse Ox 92 07/25/22 14:27 O2 Del Method 07/25/22 14:27 BMI result Body Mass Index 48.4 Const: Other: Awake, alert, female patient, she is very pleasant and cooperative, she answers all questions appropriately, she does not appear to be in distress. She has an elevated BMI of 48.4. 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 Neck: Neck: Yes normal visual inspection, Yes no lymphadenopathy, Yes trachea midline and Yes supple Chest: Chest palpation & inspection: normal inspection of the chest and normal palpation of entire chest wall Resp: Other: Patient has good inspiratory and expiratory flow, she has some slight wheezing at the end of expiration, there is no rales or rhonchi Cardio: Rate: regular rate Rhythm: regular rhythm Heart sounds: S1 normal heart sound present, S2 normal heart sound present and Murmur heart sound present systolic holo and II/ GI: Inspection: Yes normal to inspection Palpation (GI): Soft to palpation, nontender and no guarding Auscultation: normal bowel sounds : General: Yes no CVA tenderness Back/Spine/Pelvis: Back: no CVA tenderness Skin: General skin exam: no rashes or lesions noted Neuro: Cranial nerves: Yes CN's II-XII intact bilaterally Cognition (Neuro): normal cognition Motor exam (neuro): 5/5 motor strength present throughout Extrem: General: Yes normal to inspection Psych: Appearance: grossly normal Speech and movement: Normal speech and movement present Affect: normal affect Attitude: cooperative Medications Administered Discontinued Medications Generic Name Dose Route Start Last Admin Trade Name Freq PRN Reason Stop Dose Admin Albuterol Sulfate 4 puff 07/25/22 14:47 07/25/22 15:10 Albuterol Sulfate 90 Mcg 8 Gm Inhaler INHALE 07/25/22 14:48 4 puff ONCE STA Administration Prednisone 60 mg 07/25/22 14:47 07/25/22 16:08 Prednisone 20 Mg Tablet PO 07/25/22 14:48 60 mg ONCE ONE Administration Medical Decision Making Medical Decision Making MDM Narrative: 71-year-old female who presents emergency department for evaluation of shortness of breath which began 30 minutes prior to arrival. Patient does have a history of asthma/COPD and uses albuterol nebulizers as well as inhalers. Given the national shortage of albuterol nebulizer solution, she states she ran out of albuterol 1 month prior has not been able to get this refilled. The patient was given an albuterol nebulizer in route with improvement of her symptoms. On my examination the patient did have wheezing at the end of expiration otherwise exam was unremarkable. I ordered chest x-ray, COVID-19, RSV and influenza test. Patient's wheezing will be treated with albuterol inhaler 4 puffs through a spacer. She was also ordered to get prednisone 60 mg orally. 1707: The patient does feel better after receiving the above treatment. Chest x-rays consistent with chronic lung disease I do not think that she has pneumonia. The patient RSV, COVID-19 influenza tests were negative. The patient's O2 saturation did drop while she was sleeping however she has obstructive sleep apnea, she is post to wear oxygen at night as well as use her CPAP machine. I did discuss this with her, I do not think that she has acute pneumonia. Patient was given a prescription for prednisone 60 mg once a day for 5 days, albuterol nebulizer solution and albuterol inhaler. She will be discharged home with the albuterol inhaler spacer in his advised to use 2 puffs with spacer every 4 hours as needed for shortness of breath. The patient is bedbound and will need an ambulance to take her home, she also will need oxygen during the transport. Differential Diagnosis Differential diagnosis includes but is not limited to asthma exacerbation, COPD exacerbation, pneumonia, viral syndrome, COVID-19, influenza, RSV, bronchitis Lab Data MDM Lab Attestation statement: I reviewed the patient's lab results. My interpretation of patient's laboratory evaluation is as follows: The patient's COVID-19, influenza and RSV were negative. Labs: Lab Results 07/25/22 Range/Units 15:02 Influenza Type A (PCR) NEGATIVE (Negative) Influenza Type B (PCR) NEGATIVE (Negative) RSV RNA Qual (PCR) NEGATIVE (Negative) SARS-CoV-2 RNA (RT-PCR) NEGATIVE (Negative) Independent Interpretation I performed an independent interpretation of an: Plain X-Ray Interpretation: My independent irritation of the chest x-ray two view chronic appearing interstitial markings, no acute pneumonia Radiology Impression Discussion of test interpretation with radiology: I have reviewed the radiologist's reading. (Agree with the radiology reading but I believe that this is a chronic finding and does not reflect acute pneumonia) Radiologist Impression: XR chest 2V IMPRESSION: Again seen is diffuse coarse interstitial markings and possible patchy nodular airspace opacity. The appearance is improved from 03/17/2022 but worsened since 12/15/2021. The appearance is nonspecific. This could reflect interstitial and possible developing alveolar pulmonary edema although multifocal infection/inflammation including bronchitis and/or viral pneumonitis Dictated By:Sabas Calle MDSigned By:<Electronically signed by Sabas Calle MD in OV>07/25/22 1546 External Record Review External record reviewed: Office record (Cardiology office notes were reviewed by me) Chronic Conditions Patient?s care impacted by: Diabetes, Hypertension and Other (COPD/asthma) Social Determinants Patient is bedbound and will require ambulance transport back to her home, she also require oxygen during transport Discharge Plan Discharge Clinical Impression: Asthma exacerbation Qualifiers: Asthma severity: moderate Asthma persistence: unspecified Qualified Code(s): J45.901 - Unspecified asthma with (acute) exacerbation Patient Disposition: Home, Self-Care Instructions: Asthma (ED) Additional Instructions: Your chest x-ray did not reveal any pneumonia, the x-rays consistent with her underlying lung disease. Your COVID-19, influenza and RSV tests were negative. This time I believe shortness of breath was caused by an asthma exacerbation. Take prednisone 20 mg pills, 3 pills once a day for 5 days. While you are taking prednisone, do not take any NSAIDs (Motrin, Advil, ibuprofen, Aleve, naproxen). Use the albuterol inhaler 2 puffs with the spacer every 4 hours as needed for shortness of breath. Use your albuterol nebulizer, every 4-6 hours as needed for shortness of breath. You should wear your oxygen at night and use your CPAP at night or whenever your sleeping, your oxygen level drops to a very low level when you are sleeping. Follow-up with your doctor in 2 days. Please return to the emergency department if your symptoms get worse or if you develop any symptoms that are concerning to you. Prescriptions: New albuterol sulfate 2.5 mg /3 mL (0.083 %) solution for nebulization 2.5 mg inhalation Q4-6H PRN (Reason: shortness of breath or wheezing) Qty: 75 0RF prednisone 20 mg tablet 60 mg PO DAILY 5 Days Qty: 15 0RF albuterol sulfate [ProAir HFA] 90 mcg/actuation HFA aerosol inhaler 2 puff inhalation Q4-6H PRN (Reason: shortness of breath or wheezing) Qty: 8.5 0RF No Action simvastatin 40 mg tablet 40 mg PO BEDTIME gabapentin 300 mg capsule 300 mg PO BID lisinopril 5 mg tablet 5 mg PO DAILY albuterol sulfate [Proventil HFA] 90 mcg/actuation HFA aerosol inhaler 2 puff inhalation Q4-6H PRN (Reason: Wheezing) Eliquis 5 mg tablet 5 mg PO BID ergocalciferol (vitamin D2) 1,250 mcg (50,000 unit) capsule 1 cap PO WE@0900 nystatin 100,000 unit/gram powder 1 appl topical BID PRN (Reason: Rash) fluticasone propionate 50 mcg/actuation spray,suspension 1 spray intranasal BID insulin lispro [Humalog KwikPen Insulin] 100 unit/mL insulin pen See Protocol subcut TIDAC Protocol: Insulin Correction Scale Less than or equal to 110 ---- Give (units): 0 111 to 150 Give (units): 0 151 to 200 Give (units): 2 201 to 250 Give (units): 4 251 to 300 Give (units): 6 301 to 350 Give (units): 8 Greater than 350 Give (units): 10 Call MD if Blood Glucose > : 350 ipratropium-albuterol 0.5 mg-3 mg(2.5 mg base)/3 mL Solution For Nebulization 3 ml inhalation RQ4H WHILE AWAKE PRN (Reason: Shortness Of Breath Or Wheezing) Qty: 300 0RF (DME) nebulizers [facility] [place] See Rx Instructions .Route Qty: 1 0RF Rx Instructions: As directed prednisone 20 mg tablet 40 mg PO DAILY Qty: 6 0RF Flovent Diskus 100 mcg/actuation blister with device 1 puff PO BID insulin glargine [Lantus Solostar U-100 Insulin] 100 unit/mL (3 mL) insulin pen 64 unit subcut DAILY aspirin 81 mg Tablet,Delayed Release (Dr/Ec) 81 mg PO DAILY Culturelle 10 billion cell Capsule 1 cap PO DAILY metformin 850 mg tablet 850 mg PO BIDWM metoprolol tartrate 50 mg tablet 50 mg PO BID furosemide 40 mg tablet 40 mg PO BID
[2022-07-25 15:10] VITALS: PULSE 67; RESP 18; O2SAT 94
[2022-07-25] MEDS: Albuterol Sulfate 90 MCG 8 GM INHALER 4 PUFF INHALE (15:10)
[2022-07-25 15:46] LABS: Influenza A PCR NEGATIVE (Negative); Influenza B PCR NEGATIVE (Negative); Resp Syncy Virus RNA Qual PCR NEGATIVE (Negative); SARS COV2 PCR INHOUSE NEGATIVE (Negative)
[2022-07-25] MEDS: predniSONE 20 MG TABLET 60 MG PO (16:08)
--- NOTE | 2022-07-25 17:27 | MHC.EDTECH ---
Kaiden called at 1725 for a bls transfer home per johnathan Dunaway within the hour.Rn and Charge Nurse aware.
== END 2022-07-25 18:40 | disposition home or self-care (01) ==
PROVIDERS: Emergency Provider Emergency Medicine Emergency Medical Services; PCP Family Medicine
DX: J45.901 Unspecified asthma with (acute) exacerbation (principal); R06.02 Shortness of breath; Z20.822 Contact with and (suspected) exposure to COVID-19; Z20.828 Contact with and (suspected) exposure to other viral communicable diseases; E11.9 Type 2 diabetes mellitus without complications; I10 Essential (primary) hypertension; I48.0 Paroxysmal atrial fibrillation; Z79.01 Long term (current) use of anticoagulants; Z79.02 Long term (current) use of antithrombotics/antiplatelets; Z79.899 Other long term (current) drug therapy; Z79.4 Long term (current) use of insulin; Z86.73 Personal history of transient ischemic attack (TIA), and cerebral infarction without residual deficits
CPT/HCPCS: 0241U; 71046; 94640; 99284

== ENCOUNTER 2022-08-08 20:31 | Emergency (ER) | payer MEDICARE, MEDICAID, SELFPAY ==
--- NOTE | 2022-08-08 20:42 | ED_ITS ---
HPI - General Adult General Chief complaint: Recheck/Abnormal Lab/Rx Stated complaint: high blood sugar Time Seen by Provider: 08/08/22 20:34 Source: patient Mode of arrival: EMS Limitations: no limitations History of Present Illness HPI narrative: Patient type 2 diabetic on metformin and insulin came here for blood sugar of 262. Patient does have persistently elevated blood sugar as indwelling Molina catheter usually blood sugar runs 200-300 been here multiple times recently increased the dose of Lantus to 64 units in a.m. no vomiting no fever patient has chronic abdominal pain patient does have E coli ESBL in the past but after that repeated urine culture colonized Related Data Home Medications Medication Instructions Recorded Confirmed albuterol sulfate 90 mcg/actuation 2 puff inhalation Q4-6H PRN 01/23/21 03/17/22 aerosol inhaler (Proventil HFA) Wheezing apixaban 5 mg tablet (Eliquis) 5 mg PO BID 01/23/21 03/17/22 gabapentin 300 mg capsule 300 mg PO BID 01/23/21 03/17/22 lisinopril 5 mg tablet 5 mg PO DAILY 01/23/21 03/17/22 simvastatin 40 mg tablet 40 mg PO BEDTIME 01/23/21 03/17/22 Lactobacillus rhamnosus GG 10 1 cap PO DAILY 10/24/21 03/17/22 billion cell capsule (Culturelle) aspirin 81 mg tablet,delayed 81 mg PO DAILY 10/24/21 03/17/22 release fluticasone propionate 100 1 puff PO BID 10/24/21 03/17/22 mcg/actuation blister powder for inhalation (Flovent Diskus) insulin glargine 100 unit/mL (3 64 unit subcut DAILY 10/24/21 03/17/22 mL) subcutaneous pen (Lantus Solostar U-100 Insulin) furosemide 40 mg tablet 40 mg PO BID 03/09/22 03/17/22 metformin 850 mg tablet 850 mg PO BIDWM 03/09/22 03/17/22 metoprolol tartrate 50 mg tablet 50 mg PO BID 03/09/22 03/17/22 ergocalciferol (vitamin D2) 1,250 1 cap PO WE@0900 03/17/22 03/17/22 mcg (50,000 unit) capsule fluticasone propionate 50 1 spray intranasal BID 03/17/22 03/17/22 mcg/actuation nasal spray,suspension insulin lispro 100 unit/mL See Protocol subcut TIDAC 03/17/22 03/17/22 subcutaneous pen (Humalog KwikPen (U-100) Insulin) nystatin 100,000 unit/gram topical 1 appl topical BID PRN Rash 03/17/22 03/17/22 powder Previous Rx's Medication Instructions Recorded ipratropium 0.5 mg-albuterol 3 mg 3 ml inhalation RQ4H WHILE AWAKE 03/19/22 (2.5 mg base)/3 mL nebulization PRN Shortness Of Breath Or soln Wheezing #300 mL nebulizers #1 ea 03/19/22 prednisone 20 mg tablet 40 mg PO DAILY #6 tabs 03/19/22 albuterol sulfate 2.5 mg/3 mL 2.5 mg (3 mL) inhalation Q4-6H PRN 07/25/22 (0.083 %) solution for nebulization shortness of breath or wheezing #75 mL albuterol sulfate 90 mcg/actuation 2 puff inhalation Q4-6H PRN 07/25/22 aerosol inhaler (ProAir HFA) shortness of breath or wheezing #8.5 grams prednisone 20 mg tablet 60 mg PO DAILY 5 days #15 tabs 07/25/22 nitrofurantoin 100 mg PO BID #20 caps 08/08/22 monohydrate/macrocrystals 100 mg capsule (Macrobid) Allergies Allergy/AdvReac Type Severity Reaction Status Date / Time silver sulfadiazine Allergy Unknown UNK Verified 03/17/22 04:34 [From TRINY] Review of Systems Review of Systems: Yes all other systems are reviewed and are negative PMFSH Past Medical History Medical History Aortic stenosis Bacteriuria Chronic heart failure with preserved ejection fraction (HFpEF) Chronic hypoxemic respiratory failure Chronic indwelling Molina catheter Chronic UTI Chronic UTI Congestive heart failure COPD (chronic obstructive pulmonary disease) Diabetes Diarrhea Glaucoma H/O: CVA (cerebrovascular accident) Hypertension Hypotonic neurogenic bladder Non-rheumatic aortic stenosis Obesity Obstructive sleep apnea Osteoarthritis Paroxysmal atrial fibrillation Severe sepsis UTI (urinary tract infection) Surgical History H/O adenoidectomy H/O enucleation of left eyeball History of tonsillectomy Family History Family History Father No problems noted. Mother No problems noted. Social History Social History Household Members: None Housing: Apartment Do you presently have visiting nurse or other home services: Yes (also has student accounts coordinator's) Unable to assess alcohol history related to: Unknown Alcohol intake: never Patient Tobacco Use Status: Never used Tobacco Second Hand Smoke Exposure: No Advance Directives: Yes Advance Directives on File: Yes Advance Directives Date on File: 07/09/20 service: No Current occupational status: disabled Physical Exam ED Vital Signs: Vital Signs - 24 hr 08/08/22 20:46 08/08/22 22:00 Temperature 97.6 F 97.8 F Pulse Rate 68 72 Respiratory Rate 20 16 Blood Pressure 149/78 H 146/70 H Pulse Oximetry 96 96 Oxygen Delivery Method Room Air Room Air BMI result Body Mass Index 48.0 Appearance: Alert. Oriented X3. No acute distress. Obese with multiple complaints Eyes: PERRLA, No Nystagmus ENT: Pharynx normal. Oral Mucosa moist Neck: Normal inspection. Neck supple. CVS: Normal heart rate and rhythm. Pulses normal. Respiratory: No respiratory distress. Equal air entry bilateral, no wheezing/rales/rhonchi Abdomen: Soft and nontender. Bowel sounds are present, no mass palpable, no CVA tenderness Skin: Skin warm and dry. Normal skin color. Normal skin turgor. Extremities: No lower extremity edema. No calf tenderness Neuro: Oriented X 3. No motor deficit. No sensory deficit.No cerebellar signs , cranial nerves II-XII intact Medications Administered Discontinued Medications Generic Name Dose Route Start Last Admin Trade Name Freq PRN Reason Stop Dose Admin Nitrofurantoin Macrocrystals 100 mg 08/08/22 21:27 08/08/22 21:36 Nitrofurantoin Monohyd/M-Cryst 100 Mg Capsule PO 08/08/22 21:28 100 mg ONCE ONE Administration Medical Decision Making Medical Decision Making [facility] Narrative: Patient with chronic hyperglycemia with noncompliance on insulin advised increased dose of Lantus 70 units will give Macrobid pending urine culture patient currently not septic Lab Data [facility] Lab Attestation statement: I reviewed the patient's lab results. Labs: Lab Results 08/08/22 08/08/22 08/08/22 Range/Units 20:51 20:55 22:18 POC Glucose 259 H 220 H (60-115) mg/dL Urine Color Yellow Urine Appearance Clear Urine pH 7.5 (5.0-9.0) Ur Specific Milo 1.010 (1.005-1.025) Urine Protein Negative (Neg-Trace) mg/dL Urine Glucose (UA) 500 H (Negative) mg/dL Urine Ketones Negative (Negative) mg/dL Urine Blood Trace H (Negative) Urine Nitrite Positive H (Negative) Ur Leukocyte Esterase Moderate (2+) H (Negative) Urine RBC 0-2 (0-2) /HPF Urine WBC 11-20 H (0-5) /HPF Ur Squamous Epith Cells 0-2 (0-2) /HPF Urine Bacteria 4+ (None Seen) Hyaline Casts 0-2 (0-2) /LPF Discharge Plan Discharge Clinical Impression: Hyperglycemia due to type 2 diabetes mellitus, UTI (urinary tract infection) due to urinary indwelling catheter Patient Disposition: Home, Self-Care Instructions: Diabetic Hyperglycemia (ED), Catheter-associated Urinary Tract Infection (ED) Additional Instructions: Drink plenty of fluid Increase the dose of Lantus insulin to 70 units in a.m. Continue sliding scale of insulin per protocol Antibiotic for UTI Follow-up with PCP Prescriptions: New nitrofurantoin monohyd/m-cryst [Macrobid] 100 mg capsule 100 mg PO BID Qty: 20 0RF Rx Instructions: must administer with a meal/food No Action simvastatin 40 mg tablet 40 mg PO BEDTIME gabapentin 300 mg capsule 300 mg PO BID lisinopril 5 mg tablet 5 mg PO DAILY albuterol sulfate [Proventil HFA] 90 mcg/actuation HFA aerosol inhaler 2 puff inhalation Q4-6H PRN (Reason: Wheezing) Eliquis 5 mg tablet 5 mg PO BID ergocalciferol (vitamin D2) 1,250 mcg (50,000 unit) capsule 1 cap PO WE@0900 nystatin 100,000 unit/gram powder 1 appl topical BID PRN (Reason: Rash) fluticasone propionate 50 mcg/actuation spray,suspension 1 spray intranasal BID insulin lispro [Humalog KwikPen Insulin] 100 unit/mL insulin pen See Protocol subcut TIDA Protocol: Insulin Correction Scale Less than or equal to 110 ---- Give (units): 0 111 to 150 Give (units): 0 151 to 200 Give (units): 2 201 to 250 Give (units): 4 251 to 300 Give (units): 6 301 to 350 Give (units): 8 Greater than 350 Give (units): 10 Call MD if Blood Glucose > : 350 ipratropium-albuterol 0.5 mg-3 mg(2.5 mg base)/3 mL Solution For Nebulization 3 ml inhalation RQ4H WHILE AWAKE PRN (Reason: Shortness Of Breath Or Wheezing) Qty: 300 0RF (DME) nebulizers [facility] [place] See Rx Instructions .Route Qty: 1 0RF Rx Instructions: As directed prednisone 20 mg tablet 40 mg PO DAILY Qty: 6 0RF albuterol sulfate 2.5 mg /3 mL (0.083 %) solution for nebulization 2.5 mg inhalation Q4-6H PRN (Reason: shortness of breath or wheezing) Qty: 75 0RF prednisone 20 mg tablet 60 mg PO DAILY 5 Days Qty: 15 0RF albuterol sulfate [ProAir HFA] 90 mcg/actuation HFA aerosol inhaler 2 puff inhalation Q4-6H PRN (Reason: shortness of breath or wheezing) Qty: 8.5 0RF Flovent Diskus 100 mcg/actuation blister with device 1 puff PO BID insulin glargine [Lantus Solostar U-100 Insulin] 100 unit/mL (3 mL) insulin pen 64 unit subcut DAILY aspirin 81 mg Tablet,Delayed Release (Dr/Ec) 81 mg PO DAILY Culturelle 10 billion cell Capsule 1 cap PO DAILY metformin 850 mg tablet 850 mg PO BIDWM metoprolol tartrate 50 mg tablet 50 mg PO BID furosemide 40 mg tablet 40 mg PO BID
[2022-08-08 20:46] VITALS: BP 140/70; BP 149/78; PULSE 68; PULSE 70; RESP 20; TEMP 36.4; O2SAT 95; O2SAT 96; BMI 48.0
[2022-08-08 21:00] LABS: Appearance Urine Clear; Color Urine Yellow; Glucose Urine UA 500 mg/dL (Negative); Leukocyte Esterase Urine Moderate (2+) (Negative); Nitrite Urine Positive (Negative); PH 7.5 (5.0-9.0); UMIC TRIGGER UACC YES; Urine Blood Trace (Negative); Urine Ketones Negative (Negative); Urine Protein Negative (Neg-Trace)
[2022-08-08 21:02] LABS: Glucose, Whole Blood 259 mg/dL (60-115)
[2022-08-08 21:05] LABS: Bacteria Urine 4+ (None Seen); Hyaline Casts Urine 0-2 /LPF (0-2); RBC Urine 0-2 /HPF (0-2); Squamous Epithelial Cell Urine 0-2 /HPF (0-2); UACC Culture Trigger YES
[2022-08-08] MEDS: Nitrofurantoin Monohyd/M-Cryst 100 MG CAPSULE PO (21:36)
[2022-08-08 22:00] VITALS: BP 146/70; PULSE 72; RESP 16; TEMP 36.6; O2SAT 96
[2022-08-08 22:24] LABS: Glucose, Whole Blood 220 mg/dL (60-115)
--- NOTE | 2022-08-08 22:54 | PC.NURSE ---
Pt. tearful in hallway stating that she doesn't feel well upon learning that she would be d/c'd. Pt. medicate with abx per MAR for UTI. Pt. reports that she didn't eat tonight d/t high blood sugar. POC prior to d/c was 220. advised pt. to take her insulin meds as ordered prior to meals. Pt. anxious about going home, however, doesn't wish to step up care to senior living or rehab. Pt. agreed to d/c home and will increase fluids and take her antibiotics as prescribed.
== END 2022-08-08 22:57 | disposition home or self-care (01) ==
PROVIDERS: Emergency Provider Internal Medicine; PCP Family Medicine
DX: E11.65 Type 2 diabetes mellitus with hyperglycemia (principal); N39.0 Urinary tract infection, site not specified; Z79.899 Other long term (current) drug therapy
CPT/HCPCS: 81001; 81003; 82947; 87086; 99283

== ENCOUNTER 2022-08-15 22:13 | Emergency (ER) | payer MEDICARE, MEDICAID, SELFPAY ==
[2022-08-15 22:25] VITALS: BP 180/100; PULSE 85; O2SAT 95
[2022-08-15 22:35] VITALS: BP 135/57; PULSE 66; RESP 18; TEMP 36.6; O2SAT 94; BMI 43.5
--- NOTE | 2022-08-15 23:22 | ED.GENADULT ---
HPI - General Adult General Chief complaint: Extremity Injury, Lower <DEANN Khan - Last Filed: 08/15/22 23:32> Stated complaint: Rash <DEANN Khan - Last Filed: 08/15/22 23:32> Time Seen by Provider: 08/15/22 22:52 <DEANN Khan - Last Filed: 08/15/22 23:32> Source: patient <DEANN Khan - Last Filed: 08/15/22 23:32> Mode of arrival: ambulatory <DEANN Khan Last Filed: 08/15/22 23:32> Limitations: no limitations <DEANN Khan Last Filed: 08/15/22 23:32> History of Present Illness HPI narrative: 71 year old female presents for evaluation and treatment of redness, swelling and warmth to LLE to left newell x3 days. Patient tells me that this started 3 days ago and has been progressively worsening she tells me she has been trying to itch the area because it is itchy however in seems to be getting worse. She reports that she has been cleaning the area with hydrogen peroxide she is not sure how this started. She denies fevers, chills, numbness consume tingling, chest pain, shortness of breath, nausea, vomiting, abdominal pain, recent trauma, headache, vision changes in dizziness. Patient anticoagulated on Eliquis. <DEANN Khan Last Filed: 08/15/22 23:32> Related Data Home medications: Home Medications Medication Instructions Recorded Confirmed albuterol sulfate 90 mcg/actuation 2 puff inhalation Q4-6H PRN 01/23/21 03/17/22 aerosol inhaler (Proventil HFA) Wheezing apixaban 5 mg tablet (Eliquis) 5 mg PO BID 01/23/21 03/17/22 gabapentin 300 mg capsule 300 mg PO BID 01/23/21 03/17/22 lisinopril 5 mg tablet 5 mg PO DAILY 01/23/21 03/17/22 simvastatin 40 mg tablet 40 mg PO BEDTIME 01/23/21 03/17/22 Lactobacillus rhamnosus GG 10 1 cap PO DAILY 10/24/21 03/17/22 billion cell capsule (Culturelle) aspirin 81 mg tablet,delayed 81 mg PO DAILY 10/24/21 03/17/22 release fluticasone propionate 100 1 puff PO BID 10/24/21 03/17/22 mcg/actuation blister powder for inhalation (Flovent Diskus) insulin glargine 100 unit/mL (3 64 unit subcut DAILY 10/24/21 03/17/22 mL) subcutaneous pen (Lantus Solostar U-100 Insulin) furosemide 40 mg tablet 40 mg PO BID 03/09/22 03/17/22 metformin 850 mg tablet 850 mg PO BIDWM 03/09/22 03/17/22 metoprolol tartrate 50 mg tablet 50 mg PO BID 03/09/22 03/17/22 ergocalciferol (vitamin D2) 1,250 1 cap PO WE@0900 03/17/22 03/17/22 mcg (50,000 unit) capsule fluticasone propionate 50 1 spray intranasal BID 03/17/22 03/17/22 mcg/actuation nasal spray,suspension insulin lispro 100 unit/mL See Protocol subcut TIDAC 03/17/22 03/17/22 subcutaneous pen (Humalog KwikPen (U-100) Insulin) nystatin 100,000 unit/gram topical 1 appl topical BID PRN Rash 03/17/22 03/17/22 powder Previous Rx's Medication Instructions Recorded ipratropium 0.5 mg-albuterol 3 mg 3 ml inhalation RQ4H WHILE AWAKE 03/19/22 (2.5 mg base)/3 mL nebulization PRN Shortness Of Breath Or soln Wheezing #300 mL nebulizers #1 ea 03/19/22 prednisone 20 mg tablet 40 mg PO DAILY #6 tabs 03/19/22 albuterol sulfate 2.5 mg/3 mL 2.5 mg (3 mL) inhalation Q4-6H PRN 07/25/22 (0.083 %) solution for nebulization shortness of breath or wheezing #75 mL albuterol sulfate 90 mcg/actuation 2 puff inhalation Q4-6H PRN 07/25/22 aerosol inhaler (ProAir HFA) shortness of breath or wheezing #8.5 grams prednisone 20 mg tablet 60 mg PO DAILY 5 days #15 tabs 07/25/22 nitrofurantoin 100 mg PO BID #20 caps 08/08/22 monohydrate/macrocrystals 100 mg capsule (Macrobid) cephalexin 500 mg tablet 500 mg PO Q6H 10 days #40 tabs 08/15/22 doxycycline hyclate 100 mg capsule 100 mg PO BID 10 days #20 caps 08/15/22 <DEANN Khan - Last Filed: 08/15/22 23:32> Allergies/adverse reactions: Allergies Allergy/AdvReac Type Severity Reaction Status Date / Time silver sulfadiazine Allergy Unknown UNK Verified 03/17/22 04:34 [From SILVADENE] <DEANN Khan Last Filed: 08/15/22 23:32> Review of Systems Review of Systems: Constitutional : No Weight loss, No Fever, No Chills, No Fatigue, No Malaise ENT/Mouth : No sore throat, No Rhinorrhea Eyes: No Eye Pain, No Swelling, No Redness Cardiovascular : No Chest Pain, No SOB, No Dyspnea on Exertion, No Orthopnea, No Edema, No Palpitations Respiratory : No Cough, No Sputum, No Wheezing Gastrointestinal : No Nausea, No Vomiting, No Diarrhea, No Constipation, No abdominal Pain, No Hematochezia, No Melena Genitourinary : No Dysuria, No Urinary Frequency, No Hematuria, Musculoskeletal : No joint pain, No Myalgias, No Joint Swelling Skin : No Skin Lesions, No rash, + redness to lle Neuro : No Weakness, No Numbness, No Dizziness, No Headache Psych : No Anxiety/Panic, No Depression All other systems reviewed and are negative <DEANN Khan Last Filed: 08/15/22 23:32> Yes all other systems are reviewed and are negative <DEANN Khan Last Filed: 08/15/22 23:32> [facility] Past Medical History Attestation statement: The following information was validated with the patient. <DEANN Khan Last Filed: 08/15/22 23:32> Source: old records reviewed and nursing notes reviewed <DEANN Khan Last Filed: 08/15/22 23:32> Medical History: Medical History Aortic stenosis Bacteriuria Chronic heart failure with preserved ejection fraction (HFpEF) Chronic hypoxemic respiratory failure Chronic indwelling Molina catheter Chronic UTI Chronic UTI Congestive heart failure COPD (chronic obstructive pulmonary disease) Diabetes Diarrhea Glaucoma H/O: CVA (cerebrovascular accident) Hypertension Hypotonic neurogenic bladder Non-rheumatic aortic stenosis Obesity Obstructive sleep apnea Osteoarthritis Paroxysmal atrial fibrillation Severe sepsis UTI (urinary tract infection) <DEANN Khan - Last Filed: 08/15/22 23:32> Surgical History: Surgical History H/O adenoidectomy H/O enucleation of left eyeball History of tonsillectomy <DEANN Khan - Last Filed: 08/15/22 23:32> Family History Family History: Family History Father No problems noted. Mother No problems noted. <EDANN Khan - Last Filed: 08/15/22 23:32> Social History Social History: Social History Household Members: None Housing: Apartment Do you presently have visiting nurse or other home services: Yes (also has senior capital markets specialist's) Unable to assess alcohol history related to: Unknown Alcohol intake: never Patient Tobacco Use Status: Never used Tobacco Second Hand Smoke Exposure: No Advance Directives: Yes Advance Directives on File: Yes Advance Directives Date on File: 07/09/20 service: No Current occupational status: disabled <DEANN Khan - Last Filed: 08/15/22 23:32> Physical Exam ED Vital Signs: Vital Signs - 24 hr 08/15/22 22:35 Temperature 97.8 F Pulse Rate 66 Respiratory Rate 18 Blood Pressure 135/57 L Pulse Oximetry 94 Oxygen Delivery Method Room Air BMI result Body Mass Index 43.5 vss <DEANN Khan - Last Filed: 08/15/22 23:32> Vital Signs - 24 hr 08/15/22 22:35 Temperature 97.8 F Pulse Rate 66 Respiratory Rate 18 Blood Pressure 135/57 L Pulse Oximetry 94 Oxygen Delivery Method Room Air BMI result Body Mass Index 43.5 <Alan Armstrong MD - Last Filed: 08/15/22 23:52> Appearance: Alert.? Oriented X3.? No acute distress.? Head: Normocephalic, atraumatic, no step-offs or deformities Eyes: Pupils equal, round and reactive to light.? Neck: Normal inspection.? Neck supple.? CVS: Normal heart rate and rhythm.? Pulses normal.? Respiratory: No respiratory distress.? Breath sounds normal.? Abdomen: Soft and nontender.? Skin: Skin warm and dry.? Normal skin color.? Normal skin turgor.? Extremities: 2+ nonpitting edema to b/l lower extremities.? No calf ttp. 5/5 strength to bilateral upper and lower extremities + large area 6 cm X 5 cm of errythema and warmth to anterior L. newell w/ excoriations from itching. Neuro: Oriented X 3.? No motor deficit.? No sensory deficit. CN 2-12 intact <DEANN Khan - Last Filed: 08/15/22 23:32> Course Reevaluation(s) Reevaluation #1: Patient will be discharged on doxycycline and Keflex. Educated patient on diagnosis and treatment plan, answered all question, patient verbalizes understanding. At this time patient will be discharged home, advised to return with new or worsening symptoms. Educated on worrisome signs and symptoms and when to return. At this time I feel comfortable discharge home. <DEANN Khan - Last Filed: 08/15/22 23:32> Time: 23:31 <DEANN Khan - Last Filed: 08/15/22 23:32> Medical Decision Making Medical Decision Making [facility] Narrative: [id number] 71-year-old female presenting with cellulitis to left anterior newell x3 days worsening. Reports she is currently on Macrobid for UTI. Physical exam significant for 2+ nonpitting edema to b/l lower extremities.? No calf ttp. 5/5 strength to bilateral upper and lower extremities + large area 6 cm X 5 cm of errythema and warmth to anterior L. newell w/ excoriations from itching. History and physical exam concerning for simple cellulitis, unlikely that this is a threatened limb, septic joint, erysipelas, necrotizing infection, TN, SJS, PE, DVT Plan at this time is to discharge patient home with antibiotics. <DEANN Khan - Last Filed: 08/15/22 23:32> Differential Diagnosis Differential Diagnoses: The differential diagnosis associated with the presentation includes <DEANN Khan - Last Filed: 08/15/22 23:32> History and physical exam concerning for simple cellulitis, unlikely that this is a threatened limb, septic joint, erysipelas, necrotizing infection, TN, SJS, PE, DVT <DEANN Khan - Last Filed: 08/15/22 23:32> Admission/Observation Consideration of admission/observation: Escalation of care including admission/observation considered <DEANN Khan - Last Filed: 08/15/22 23:32> Lab Data MDM Lab Attestation statement: I reviewed the patient's lab results. <DEANN Khan - Last Filed: 08/15/22 23:32> Core Measures AMI core measures followed: Yes <DEANN Khan - Last Filed: 08/15/22 23:32> Measure exclusions: not indicated <DEANN Khan - Last Filed: 08/15/22 23:32> Attestation Attending Attestation: I reviewed BANK RUNNER/PA/Resident note, assessment and plan. I agree with the documentation, assessment and plan unless otherwise stated. <Alan Armstrong MD - Last Filed: 08/15/22 23:52> Critical Care Time Critical Care Time Critical Care Time: No <DEANN Khan - Last Filed: 08/15/22 23:32> Discharge Plan Discharge Clinical Impression: Cellulitis <DEANN Khan - Last Filed: 08/15/22 23:32> Patient Disposition: Home, Self-Care <DEANN Khan - Last Filed: 08/15/22 23:32> Instructions: Cellulitis (ED) <DEANN Khan - Last Filed: 08/15/22 23:32> Additional Instructions: Take your medications as prescribed. If you were prescribed antibiotics today, it is important that you take your medication to their entirety, do not skip any doses, do not finish them early. Follow-up with your primary care provider this week. Return to the emergency department with new or worsening symptoms. Such as fevers, chills, chest pain, shortness of breath, nausea, vomiting, dizziness, headache, vision changes, lethargy In case of emergency call 911 <DEANN Khan - Last Filed: 08/15/22 23:32> Prescriptions: New cephalexin 500 mg tablet 500 mg PO Q6H 10 Days Qty: 40 0RF doxycycline hyclate 100 mg capsule 100 mg PO BID 10 Days Qty: 20 0RF No Action simvastatin 40 mg tablet 40 mg PO BEDTIME gabapentin 300 mg capsule 300 mg PO BID lisinopril 5 mg tablet 5 mg PO DAILY albuterol sulfate [Proventil HFA] 90 mcg/actuation HFA aerosol inhaler 2 puff inhalation Q4-6H PRN (Reason: Wheezing) Eliquis 5 mg tablet 5 mg PO BID ergocalciferol (vitamin D2) 1,250 mcg (50,000 unit) capsule 1 cap PO WE@0900 nystatin 100,000 unit/gram powder 1 appl topical BID PRN (Reason: Rash) fluticasone propionate 50 mcg/actuation spray,suspension 1 spray intranasal BID insulin lispro [Humalog KwikPen Insulin] 100 unit/mL insulin pen See Protocol subcut TIDAC Protocol: Insulin Correction Scale Less than or equal to 110 ---- Give (units): 0 111 to 150 Give (units): 0 151 to 200 Give (units): 2 201 to 250 Give (units): 4 251 to 300 Give (units): 6 301 to 350 Give (units): 8 Greater than 350 Give (units): 10 Call MD if Blood Glucose > : 350 ipratropium-albuterol 0.5 mg-3 mg(2.5 mg base)/3 mL Solution For Nebulization 3 ml inhalation RQ4H WHILE AWAKE PRN (Reason: Shortness Of Breath Or Wheezing) Qty: 300 0RF (DME) nebulizers Misc See Rx Instructions .Route Qty: 1 0RF Rx Instructions: As directed prednisone 20 mg tablet 40 mg PO DAILY Qty: 6 0RF albuterol sulfate 2.5 mg /3 mL (0.083 %) solution for nebulization 2.5 mg inhalation Q4-6H PRN (Reason: shortness of breath or wheezing) Qty: 75 0RF prednisone 20 mg tablet 60 mg PO DAILY 5 Days Qty: 15 0RF albuterol sulfate [ProAir HFA] 90 mcg/actuation HFA aerosol inhaler 2 puff inhalation Q4-6H PRN (Reason: shortness of breath or wheezing) Qty: 8.5 0RF Flovent Diskus 100 mcg/actuation blister with device 1 puff PO BID insulin glargine [Lantus Solostar U-100 Insulin] 100 unit/mL (3 mL) insulin pen 64 unit subcut DAILY aspirin 81 mg Tablet,Delayed Release (Dr/Ec) 81 mg PO DAILY Culturelle 10 billion cell Capsule 1 cap PO DAILY metformin 850 mg tablet 850 mg PO BIDWM metoprolol tartrate 50 mg tablet 50 mg PO BID furosemide 40 mg tablet 40 mg PO BID nitrofurantoin monohyd/m-cryst [Macrobid] 100 mg capsule 100 mg PO BID Qty: 20 0RF Rx Instructions: must administer with a meal/food <DEANN Khan - Last Filed: 08/15/22 23:32> Referrals: Physician,Unknown J [Primary Care Provider] - 2 days <DEANN Khan - Last Filed: 08/15/22 23:32> Stand Alone Forms: Work/School Release <DEANN Khan - Last Filed: 08/15/22 23:32>
[2022-08-16] MEDS: cephALEXin 500 MG CAPSULE PO (00:37)
[2022-08-16] MEDS: Doxycycline Monohydrate 100 MG CAPSULE PO (00:37)
== END 2022-08-16 00:23 | disposition home or self-care (01) ==
PROVIDERS: Emergency Provider Emergency Medicine
DX: L03.116 Cellulitis of left lower limb (principal); R21 Rash and other nonspecific skin eruption; E11.9 Type 2 diabetes mellitus without complications; I10 Essential (primary) hypertension; I48.0 Paroxysmal atrial fibrillation; E66.9 Obesity, unspecified; Z68.41 Body mass index [BMI] 40.0-44.9, adult; Z79.01 Long term (current) use of anticoagulants; Z79.899 Other long term (current) drug therapy; Z79.02 Long term (current) use of antithrombotics/antiplatelets; Z79.82 Long term (current) use of aspirin; Z79.4 Long term (current) use of insulin
CPT/HCPCS: 99283; 99284

== ENCOUNTER → 2022-08-19 09:33 | Outpatient (REF) | payer MEDICARE, MEDICAID, SELFPAY ==
--- NOTE | 2022-08-19 09:37 | CA_ITS ---
Transthoracic Echocardiogram Patient (Last, First, Middle): Aleah Connor, Gender: Female Date of : 1950 Age: 71 Procedure Date: 08/19/2022 Procedure Type: Transthoracic Echocardiogram Location: OP Height: 165.1 cm Weight: 121.11 kg BSA: 2.24 m2 Heart Rate: bpm BP: 124 / 68 mmHg Test Driver: Referring MD: Bertrand Gill MD [employer]man: Aaron Acosta MD Symptoms: I35.0 - Nonrheumatic aortic (valve) stenosis Study Quality: Technically Difficult ECG Rhythm: Sinus Conclusions: - 1. Normal LV systolic function with severe LVH, with impaired relaxation filling pattern 2. Yrdy-kz-vzzgmezi aortic stenosis next 3. Severe mitral and calcification 4. Upper limits of normal RV systolic pressure Findings Left Ventricle Normal left ventricular cavity size. There is severely increased left ventricular wall thickness. The left ventricular systolic function is normal. The visually estimated ejection fraction is between 60-65%. Regional wall motion abnormalities can not be excluded due to suboptimal endocardial definition. Spectral Doppler is indicative of an impaired relaxation filling pattern. Right Ventricle The right ventricle was not well visualized. Atria The left atrium is moderately dilated. Interatrial shunt cannot be excluded. The right atrium was not well visualized. Aortic Valve The aortic valve was not well visualized. There is moderate calcification of the aortic valve. There is mild to moderate aortic valve stenosis. The peak aortic gradient is 37 mmHg.The mean gradient is 21 mmHg. There is no aortic valve regurgitation. Mitral Valve The mitral valve was not well visualized. There is severe posterior mitral leaflet thickening. There is severe mitral annular calcification. There is no mitral valve regurgitation. Pulmonic Valve The pulmonic valve was not well visualized. Tricuspid Valve Likely normal tricuspid valve structure and function. There is mild tricuspid valve regurgitation. The right ventricular systolic pressure is 39 mmHg. There is no evidence of pulmonary hypertension. Great Vessels The aorta was not well visualized. The pulmonary artery was not well visualized. Venous The inferior vena cava is normal in size. Inferior vena cava flow is normal. Pericardium/Pleural The pericardium was not well visualized. Prior Study Comparison Changes noted compared to prior study dated: 07/19/2021. aortic stenosis is [id number] on this study, could be underestimated. RV systolic pressure at upper limits of normal Measurements 2D Linear Measurements IVSd: 1.78 0.6-0.9/0.6-1.0 cm LVIDd: 3.37 3.9-5.3/4.2-5.9 cm LVIDd Index: 1.50 2.4-3.2/2.2-3.1 cm/m2 LVIDs: 2.17 2.0-3.6 cm LVPWd: 1.78 0.7-1.1 cm Ao Root: 3.00 2.1-3.5 cm LA Diam: 4.00 2.7-3.8/3.0-4.0 cm LAIDs Index: 1.79 1.5-2.3 cm/m2 LV Mass: 306.32 67-162/88-224 g LV Mass Index: 136.75 43-95/49-115 g/m2 LVOT Diam: 2.00 3.0+(-)1.3 cm 2D Systolic Function EF 4C: 61.30 >55% EF 2C: 63.70 >55% EF BiP: 63.50 >55% Mitral Valve MV VTI: 0.53 MV Pk Bakari: 1.50 MV Mn Bakari: 0.90 MV Pk Grad: 9.00 MV Mn Grad: 4.00 MV Pk E: 1.32 MV PK A: 1.53 MV Decel Time: 264.00 E/A: 0.90 E'Lateral: 3.92 E'Medial: 3.48 E/E' Med: 37.90 E/E' Lat: 33.70 PHT: 77.00 MVA PHT: 2.86 MVA Continuity: 2.26 Decel [place]: 5.00 Aortic Valve AoV Pk Bakari: 3.05 AoV Mn Bakari: 2.14 AoV VTI: 0.75 AoV Pk Grad: 37.00 Aov Mn Grad: 21.00 LVOT LVOT Pk Bakari: 1.45 LVOT Mn Bakari: 0.98 LVOT VTI: 0.38 LVOT Pk Grad: 8.00 LVOT Mn Grad: 5.00 LVOT Diam: 2.00 LVOT Area: 3.14 Diastolic Function MV Pk E: 1.32 MV Pk A: 1.53 E/A: 0.90 E'Medial: 3.48 E/E' Med: 37.90 E' Laterial: 3.92 E/E' Lat: 33.70 Right Ventricle TAPSE (mm): 25.70 TVS' Bakari: 12.10 Tricuspid Valve TR Pk Bakari: 3.02 TR Pk Grad: 36.00 RA Press: 3.00 RVSP: 39.00 Great Vessels Aorta Ao Root-2D: 3.00 2.0-3.7 cm Ao Asc: 3.20 2.1-3.4 cm Pulmonary Valve PV Pk Bakari: 1.18 Peak PV Grad: 6.00 Updated in Other Vendor System with Status of Final Aaron Acosta MD electronically signed on 08/21/2022 1:43:32 PM with status of Final
== END ==
LOC: HO.CARD 09:33
PROVIDERS: Visit Provider Internal Medicine
DX: I35.0 Nonrheumatic aortic (valve) stenosis (principal)
CPT/HCPCS: 93306

== ENCOUNTER 2022-10-21 17:39 | Emergency (ER) | payer MEDICARE, MEDICAID, SELFPAY ==
--- NOTE | ~2022-10-21 | XR_ITS ---
EXAMINATION: XR CHEST CLINICAL INFORMATION: Reason for Exam SOB COMPARISON: Chest radiograph 07/25/2022 TECHNIQUE: 2 views of the chest FINDINGS: Indistinctness of the central pulmonary vasculature suggesting pulmonary venous congestion. No pneumothorax or pleural effusion. Unchanged cardiomediastinal silhouette. XR/XR chest 2V IMPRESSION: Indistinctness of the central pulmonary vasculature suggesting pulmonary venous congestion.
--- NOTE | 2022-10-21 17:46 | ECG_ITS ---
Test Reason : SOB Blood Pressure : / mmHG Vent. Rate : 085 BPM Atrial Rate : 085 BPM P-R Int : 196 ms QRS Dur : 100 ms QT Int : 382 ms P-R-T Axes : 022 -09 072 degrees QTc Int : 454 ms Normal sinus rhythm Minimal voltage criteria for LVH, may be normal variant ( Daniel product ) Possible Anterior infarct (cited on or before 24-OCT-2021) Abnormal ECG When compared with ECG of 17-MAR-2022 03:56, No significant change was found Referred By: Shavon Yepez Electronically Signed By:CAMERON HO MD
[2022-10-21 17:52] VITALS: BP 152/54; BP 167/88; PULSE 81; PULSE 85; RESP 18; TEMP 37.4; O2SAT 93; O2SAT 94; BMI 45.6
[2022-10-21 18:25] LABS: MANUAL DIFF FLAG NO
[2022-10-21 18:31] LABS: Venous Blood Gas Refer to POC result
[2022-10-21 18:31] LABS: VBG Base Excess 11.6 mmol/L; VBG HCO3 37 mmol/L (22-26); VBG pCO2 51 mmHg; VBG pH 7.46 (7.32-7.43); VBG pO2 59 mmHg
[2022-10-21 18:46] LABS: Alanine Aminotransferase 21 U/L (0-31); Albumin Level 3.7 g/dL (3.5-5.0); Alkaline Phosphatase 113 U/L (39-117); Anion Gap 13 (12-20); Aspartate Amino Transferase 16 U/L (5-31); Basophils Percent Auto 0.3 % (0-2); Bilirubin Total 0.6 mg/dL (0.0-1.0); Blood Urea Nitrogen 14 mg/dL (9-16); Calcium 8.6 mg/dL (8.4-10.2); Carbon Dioxide 32 mmol/L (22-29); Chloride 91 mmol/L (96-108); Creatinine Clr Calc Pharmacy 95.5; Eosinophils Absolute Auto 0.3 X10*3/uL (0.0-0.4); Eosinophils Percent Auto 5.4 % (0-4); Estimated Glomerular Filt Rate > 60; Glucose Random 179 mg/dL (60-115); Hematocrit 41.5 % (37.0-47.0); Hemoglobin 13.5 g/dl (12.0-16.0); Imm Gran Abs Auto 0.02 X10*3/uL (0.00-0.03); Imm Gran Pct Auto 0.3 % (0.0-0.4); Lymphocytes Absolute Auto 1.2 X10*3/uL (1.2-4.9); Lymphocytes Percent Auto 19.4 % (20-40); Magnesium 1.5 mg/dL (1.6-2.6); Mean Corpuscular HGB Conc 32.5 g/dl (31.0-35.0); Mean Corpuscular Hemoglobin 27.1 pg (27.0-33.0); Mean Corpuscular Volume 83.3 fL (80.0-98.0); Mean Platelet Volume 11.3 fL (9.4-12.3); Monocytes Absolute Auto 0.8 X10*3/uL (0.1-1.2); Monocytes Percent Auto 12.1 % (2-11); Neutrophils Percent Auto 62.5 % (45-73); Platelet Count 170 X10*3/uL (160-400); Potassium 4.1 mmol/L (3.3-5.1); Red Blood Count 4.98 X10*6/uL (4.20-5.50); Red Cell Distribution Width 17.2 % (11.0-16.0); Sodium 132 mmol/L (135-145); Total Protein 6.4 g/dL (6.5-8.0); White Blood Count 6.4 X10*3/uL (4.8-10.8)
[2022-10-21 18:52] LABS: B Type Natriuretic Peptide 49 pg/mL (<100)
[2022-10-21 18:53] LABS: Troponin-I High Sensitivity 9.3 ng/L (<3.5-17.0)
[2022-10-21 18:59] VITALS: BP 133/42; PULSE 88; RESP 20; TEMP 36.9; O2SAT 92
[2022-10-21 19:03] LABS: COVID-19 Test Negative (Negative); IDNOW Serial# 08D9AD1C
--- NOTE | 2022-10-21 20:25 | ED.SOB ---
HPI - SOB/Dyspnea General Chief Complaint: Dyspnea Stated Complaint: SOB per EMS Time Seen by Provider: 10/21/22 20:07 Source: patient and EMS Mode of arrival: EMS Limitations: no limitations History of Present Illness HPI Narrative: Patient comes to emergency room via EMS from home. Patient states that for the last 3 days, she has had worsening postnasal drip, seasonal allergies. Also, patient ran out of albuterol for her known neb machine at home. Patient reports nausea mom, coughing up and vomiting phlegm Related Data Home Medications Medication Instructions Recorded Confirmed albuterol sulfate 90 mcg/actuation 2 puff inhalation Q4-6H PRN 01/23/21 03/17/22 aerosol inhaler (Proventil HFA) Wheezing apixaban 5 mg tablet (Eliquis) 5 mg PO BID 01/23/21 03/17/22 gabapentin 300 mg capsule 300 mg PO BID 01/23/21 03/17/22 lisinopril 5 mg tablet 5 mg PO DAILY 01/23/21 03/17/22 simvastatin 40 mg tablet 40 mg PO BEDTIME 01/23/21 03/17/22 Lactobacillus rhamnosus GG 10 1 cap PO DAILY 10/24/21 03/17/22 billion cell capsule (Culturelle) aspirin 81 mg tablet,delayed 81 mg PO DAILY 10/24/21 03/17/22 release fluticasone propionate 100 1 puff PO BID 10/24/21 03/17/22 mcg/actuation blister powder for inhalation (Flovent Diskus) insulin glargine 100 unit/mL (3 64 unit subcut DAILY 10/24/21 03/17/22 mL) subcutaneous pen (Lantus Solostar U-100 Insulin) furosemide 40 mg tablet 40 mg PO BID 03/09/22 03/17/22 metformin 850 mg tablet 850 mg PO BIDWM 03/09/22 03/17/22 metoprolol tartrate 50 mg tablet 50 mg PO BID 03/09/22 03/17/22 ergocalciferol (vitamin D2) 1,250 1 cap PO WE@0900 03/17/22 03/17/22 mcg (50,000 unit) capsule fluticasone propionate 50 1 spray intranasal BID 03/17/22 03/17/22 mcg/actuation nasal spray,suspension insulin lispro 100 unit/mL See Protocol subcut TIDAC 03/17/22 03/17/22 subcutaneous pen (Humalog KwikPen (U-100) Insulin) nystatin 100,000 unit/gram topical 1 appl topical BID PRN Rash 03/17/22 03/17/22 powder Previous Rx's Medication Instructions Recorded ipratropium 0.5 mg-albuterol 3 mg 3 ml inhalation RQ4H WHILE AWAKE 03/19/22 (2.5 mg base)/3 mL nebulization PRN Shortness Of Breath Or soln Wheezing #300 mL nebulizers #1 ea 03/19/22 prednisone 20 mg tablet 40 mg PO DAILY #6 tabs 03/19/22 albuterol sulfate 2.5 mg/3 mL 2.5 mg (3 mL) inhalation Q4-6H PRN 07/25/22 (0.083 %) solution for nebulization shortness of breath or wheezing #75 mL albuterol sulfate 90 mcg/actuation 2 puff inhalation Q4-6H PRN 07/25/22 aerosol inhaler (ProAir HFA) shortness of breath or wheezing #8.5 grams prednisone 20 mg tablet 60 mg PO DAILY 5 days #15 tabs 07/25/22 nitrofurantoin 100 mg PO BID #20 caps 08/08/22 monohydrate/macrocrystals 100 mg capsule (Macrobid) cephalexin 500 mg tablet 500 mg PO Q6H 10 days #40 tabs 08/15/22 doxycycline hyclate 100 mg capsule 100 mg PO BID 10 days #20 caps 08/15/22 albuterol sulfate 2.5 mg/3 mL 2.5 mg (3 mL) inhalation Q4H PRN 10/21/22 (0.083 %) solution for nebulization shortness of breath or wheezing #75 mL prednisone 50 mg tablet 50 mg PO DAILY #4 tabs 10/21/22 Allergies Allergy/AdvReac Type Severity Reaction Status Date / Time silver sulfadiazine Allergy Unknown UNK Verified 03/17/22 04:34 [From TRINY] Review of Systems Review of Systems: Constitutional : No Weight loss, No Fever, No Chills, No Night Sweats, No Fatigue, No Malaise ENT/Mouth : No Hearing loss, No Ear Pain, No Nasal Congestion, No Sinus Pain, No Hoarseness, No sore throat, No Rhinorrhea, No Swallowing Difficulty Eyes: No Eye Pain, No Swelling, No Redness, No Foreign Body, No Discharge, No Vision Changes Cardiovascular : No Chest Pain, No SOB, No Dyspnea on Exertion, No Orthopnea, No Edema, No Palpitations Respiratory : Patient complaining of cough, chronic wheezing, Gastrointestinal : No Nausea, No Vomiting, No Diarrhea, No Constipation, No abdominal Pain, No Hematochezia, No Melena Genitourinary : no irregular bleeding, No Dysuria, No Urinary Frequency, No Hematuria, No Urinary Incontinence, No Urgency, No Flank Pain, No Urinary Flow Changes, No Hesitancy Musculoskeletal : No joint pain, No Myalgias, No Joint Swelling Skin : No Skin Lesions, No rash Neuro : No Weakness, No Numbness, No Paresthesias, No Loss of Consciousness, No Dizziness, No Headache Psych : No Anxiety/Panic, No Depression, No SI/HI/AH/VH, No Social Issues, Heme/Lymph: No Bruising, No Bleeding,No Lymphadenopathy Endocrine : No Polyuria, No Polydipsia, No Temperature Intolerance [facility] Past Medical History Medical History Aortic stenosis Bacteriuria Chronic heart failure with preserved ejection fraction (HFpEF) Chronic hypoxemic respiratory failure Chronic indwelling Molina catheter Chronic UTI Chronic UTI Congestive heart failure COPD (chronic obstructive pulmonary disease) Diabetes Diarrhea Glaucoma H/O: CVA (cerebrovascular accident) Hypertension Hypotonic neurogenic bladder Non-rheumatic aortic stenosis Obesity Obstructive sleep apnea Osteoarthritis Paroxysmal atrial fibrillation Severe sepsis UTI (urinary tract infection) Surgical History H/O adenoidectomy H/O enucleation of left eyeball History of tonsillectomy Family History Family History Father No problems noted. Mother No problems noted. Social History Social History Household Members: None Housing: Apartment Do you presently have visiting nurse or other home services: Yes (also has [employer]) Unable to assess alcohol history related to: Unknown Alcohol intake: never Patient Tobacco Use Status: Never used Tobacco Second Hand Smoke Exposure: No Advance Directives: Yes Advance Directives on File: Yes Advance Directives Date on File: 07/09/20 service: No Current occupational status: disabled Physical Exam Vital Signs: Vital Signs: Last Vital Signs Temp 98.4 F 10/21/22 18:59 Pulse 80 10/21/22 20:29 Resp 22 H 10/21/22 20:29 BP 133/42 L 10/21/22 18:59 Pulse Ox 92 10/21/22 18:59 O2 Del Method Room Air 10/21/22 18:59 BMI result Body Mass Index 45.6 Const: Other: Appearance: Alert. Oriented X3. No acute distress. Eyes: Pupils equal, round and reactive to light. ENT: Pharynx normal. Neck: Normal inspection. Neck supple. No lymph nodes noted. No crepitus CVS: Normal heart rate and rhythm. Pulses normal. Normal S1 and S2 Respiratory: No respiratory distress. Bilateral wheezing rales, on 2 L Abdomen: Soft and nontender. No rigidity. No distention. Skin: Skin warm and dry. Normal skin color. Normal skin turgor. Extremities: No lower extremity edema. No Lacerations. No Rash Neuro: Oriented X 3. No motor deficit. No sensory deficit. Moving all extremities. No slurred speech. CN 2 through 12 grossly intact Psych: calm, cooperative, normal affect Medications Administered Discontinued Medications Generic Name Dose Route Start Last Admin Trade Name Bladimirq PRN Reason Stop Dose Admin Albuterol Sulfate 10 mg 10/21/22 20:23 10/21/22 20:29 Albuterol Sulfate (0.083%) 2.5 Mg/3 Ml Vial.Neb INHALE 10/21/22 20:24 10 mg ONCE ONE Administration Methylprednisolone Sodium Succinate 125 mg 10/21/22 20:23 10/21/22 20:36 Methylprednisolone Sod Succ 125 Mg/2 Ml Vial IVPUSH 10/21/22 20:24 125 mg ONCE ONE Administration Ondansetron HCl 4 mg 10/21/22 20:27 10/21/22 20:36 Ondansetron Hcl 4 Mg/2 Ml Vial IVPUSH 10/21/22 20:28 4 mg ONCE ONE Administration Medical Decision Making Medical Decision Making MDM Narrative: -patient is on her usual 2 L of oxygen, doing well. Patient received 1 dose of albuterol, IV methylprednisolone and Zofran. White blood cell count within normal limits, no oxygen saturations -chest x-ray does not show pneumonia patient will account 6.4 -patient's symptoms exacerbated likely secondary to not having albuterol available -consider admitting the patient. Dr. Bhatt saw the patient. However, the patient does not want to stay. Patient requesting a prescription for albuterol at home Differential Diagnosis Differential Diagnoses: The differential diagnosis associated with the presentation includes (Postnasal drip, viral URI, bronchitis, chronic lung disease) Lab Data MDM Lab Attestation statement: I reviewed the patient's lab results. 10/21/22 18:20 10/21/22 18:20 Labs: Lab Results 10/21/22 10/21/22 10/21/22 Range/Units 18:20 18:20 18:20 WBC 6.4 (4.8-10.8) X10*3/uL RBC 4.98 (4.20-5.50) X10*6/uL Hgb 13.5 (12.0-16.0) g/dl Hct 41.5 (37.0-47.0) % MCV 83.3 (80.0-98.0) fL MCH 27.1 (27.0-33.0) pg MCHC 32.5 (31.0-35.0) g/dl RDW 17.2 H (11.0-16.0) % Plt Count 170 (160-400) X10*3/uL MPV 11.3 (9.4-12.3) fL Immature Gran % (Auto) 0.3 (0.0-0.4) % Neut % (Auto) 62.5 (45-73) % Lymph % (Auto) 19.4 L (20-40) % Granite % (Auto) 12.1 H (2-11) % Eos % (Auto) 5.4 H (0-4) % Baso % (Auto) 0.3 (0-2) % Lymph # (Auto) 1.2 (1.2-4.9) X10*3/uL Granite # (Auto) 0.8 (0.1-1.2) X10*3/uL Eos # (Auto) 0.3 (0.0-0.4) X10*3/uL Baso # (Auto) 0.0 (0.0-0.2) X10*3/uL Abs Immat Gran (auto) 0.02 (0.00-0.03) X10*3/uL Absolute Neuts (auto) 4.0 (2.0-8.3) x10*3/uL Absolute Nucleated RBC 0.000 (0.0-0.012) X10*3/uL Nucleated RBC % (auto) 0.0 (0.0-0.2) /100WBC VBG pH (7.32-7.43) VBG pCO2 mmHg VBG pO2 mmHg VBG HCO3 (22-26) mmol/L VBG O2 Saturation % VBG Base Excess mmol/L Sodium 132 L (135-145) mmol/L Potassium 4.1 (3.3-5.1) mmol/L Chloride 91 L (96-108) mmol/L Carbon Dioxide 32 H (22-29) mmol/L Anion Gap 13 (12-20) BUN 14 (9-16) mg/dL Creatinine 0.74 (0.5-1.4) mg/dL Estim Creat Clear Calc 95.5 Estimated GFR > 60 Random Glucose 179 H (60-115) mg/dL Calcium 8.6 D (8.4-10.2) mg/dL Magnesium 1.5 L (1.6-2.6) mg/dL Total Bilirubin 0.6 (0.0-1.0) mg/dL AST 16 (5-31) U/L ALT 21 (0-31) U/L Alkaline Phosphatase 113 (39-117) U/L Troponin I High Sens 9.3 (<3.5-17.0) ng/L B-Natriuretic Peptide (<100) pg/mL Total Protein 6.4 L (6.5-8.0) g/dL Albumin 3.7 (3.5-5.0) g/dL COVID-19 (ERIKA) (Negative) COVID-19 Clin Com 10/21/22 10/21/22 10/21/22 Range/Units 18:20 18:20 18:23 WBC (4.8-10.8) X10*3/uL RBC (4.20-5.50) X10*6/uL Hgb (12.0-16.0) g/dl Hct (37.0-47.0) % MCV (80.0-98.0) fL MCH (27.0-33.0) pg MCHC (31.0-35.0) g/dl RDW (11.0-16.0) % Plt Count (160-400) X10*3/uL MPV (9.4-12.3) fL Immature Gran % (Auto) (0.0-0.4) % Neut % (Auto) (45-73) % Lymph % (Auto) (20-40) % Granite % (Auto) (2-11) % Eos % (Auto) (0-4) % Baso % (Auto) (0-2) % Lymph # (Auto) (1.2-4.9) X10*3/uL Granite # (Auto) (0.1-1.2) X10*3/uL Eos # (Auto) (0.0-0.4) X10*3/uL Baso # (Auto) (0.0-0.2) X10*3/uL Abs Immat Gran (auto) (0.00-0.03) X10*3/uL Absolute Neuts (auto) (2.0-8.3) x10*3/uL Absolute Nucleated RBC (0.0-0.012) X10*3/uL Nucleated RBC % (auto) (0.0-0.2) /100WBC VBG pH 7.46 H (7.32-7.43) VBG pCO2 51 mmHg VBG pO2 59 mmHg VBG HCO3 37 H (22-26) mmol/L VBG O2 Saturation 89.0 % VBG Base Excess 11.6 mmol/L Sodium (135-145) mmol/L Potassium (3.3-5.1) mmol/L Chloride (96-108) mmol/L Carbon Dioxide (22-29) mmol/L Anion Gap (12-20) BUN (9-16) mg/dL Creatinine (0.5-1.4) mg/dL Estim Creat Clear Calc Estimated GFR Random Glucose (60-115) mg/dL Calcium (8.4-10.2) mg/dL Magnesium (1.6-2.6) mg/dL Total Bilirubin (0.0-1.0) mg/dL AST (5-31) U/L ALT (0-31) U/L Alkaline Phosphatase (39-117) U/L Troponin I High Sens (<3.5-17.0) ng/L B-Natriuretic Peptide 49 (<100) pg/mL Total Protein (6.5-8.0) g/dL Albumin (3.5-5.0) g/dL COVID-19 (ERIKA) Negative (Negative) COVID-19 Clin Com See Note Independent Interpretation I performed an independent interpretation of an: Plain X-Ray (Interpretation of chest x-ray, no pneumonia) Radiology Impression Discussion of test interpretation with radiology: I have reviewed the radiologist's reading. Radiologist Impression: FINDINGS: Indistinctness of the central pulmonary vasculature suggesting pulmonary venous congestion. No pneumothorax or pleural effusion. Unchanged cardiomediastinal silhouette. XR/XR chest 2V IMPRESSION: Indistinctness of the central pulmonary vasculature suggesting pulmonary venous congestion. ? Discharge Plan Discharge Clinical Impression: Chronic lung disease Patient Disposition: Home, Self-Care Instructions: Chronic Bronchitis (ED) Additional Instructions: Please follow-up with your primary care physician tomorrow. If you have any worsening or new symptoms, please return to the emergency room or call 911 Prescriptions: New albuterol sulfate 2.5 mg /3 mL (0.083 %) solution for nebulization 2.5 mg inhalation Q4H PRN (Reason: shortness of breath or wheezing) Qty: 75 0RF prednisone 50 mg tablet 50 mg PO DAILY Qty: 4 0RF No Action simvastatin 40 mg tablet 40 mg PO BEDTIME gabapentin 300 mg capsule 300 mg PO BID lisinopril 5 mg tablet 5 mg PO DAILY albuterol sulfate [Proventil HFA] 90 mcg/actuation HFA aerosol inhaler 2 puff inhalation Q4-6H PRN (Reason: Wheezing) Eliquis 5 mg tablet 5 mg PO BID ergocalciferol (vitamin D2) 1,250 mcg (50,000 unit) capsule 1 cap PO WE@0900 nystatin 100,000 unit/gram powder 1 appl topical BID PRN (Reason: Rash) fluticasone propionate 50 mcg/actuation spray,suspension 1 spray intranasal BID insulin lispro [Humalog KwikPen Insulin] 100 unit/mL insulin pen See Protocol subcut TIDAC Protocol: Insulin Correction Scale Less than or equal to 110 ---- Give (units): 0 111 to 150 Give (units): 0 151 to 200 Give (units): 2 201 to 250 Give (units): 4 251 to 300 Give (units): 6 301 to 350 Give (units): 8 Greater than 350 Give (units): 10 Call MD if Blood Glucose > : 350 ipratropium-albuterol 0.5 mg-3 mg(2.5 mg base)/3 mL Solution For Nebulization 3 ml inhalation RQ4H WHILE AWAKE PRN (Reason: Shortness Of Breath Or Wheezing) Qty: 300 0RF (DME) nebulizers [facility] See Rx Instructions .Route Qty: 1 0RF Rx Instructions: As directed prednisone 20 mg tablet 40 mg PO DAILY Qty: 6 0RF albuterol sulfate 2.5 mg /3 mL (0.083 %) solution for nebulization 2.5 mg inhalation Q4-6H PRN (Reason: shortness of breath or wheezing) Qty: 75 0RF prednisone 20 mg tablet 60 mg PO DAILY 5 Days Qty: 15 0RF albuterol sulfate [ProAir HFA] 90 mcg/actuation HFA aerosol inhaler 2 puff inhalation Q4-6H PRN (Reason: shortness of breath or wheezing) Qty: 8.5 0RF Flovent Diskus 100 mcg/actuation blister with device 1 puff PO BID insulin glargine [Lantus Solostar U-100 Insulin] 100 unit/mL (3 mL) insulin pen 64 unit subcut DAILY aspirin 81 mg Tablet,Delayed Release (Dr/Ec) 81 mg PO DAILY Culturelle 10 billion cell Capsule 1 cap PO DAILY metformin 850 mg tablet 850 mg PO BIDWM metoprolol tartrate 50 mg tablet 50 mg PO BID furosemide 40 mg tablet 40 mg PO BID nitrofurantoin monohyd/m-cryst [Macrobid] 100 mg capsule 100 mg PO BID Qty: 20 0RF Rx Instructions: must administer with a meal/food cephalexin 500 mg tablet 500 mg PO Q6H 10 Days Qty: 40 0RF doxycycline hyclate 100 mg capsule 100 mg PO BID 10 Days Qty: 20 0RF
[2022-10-21 20:29] VITALS: PULSE 80; RESP 22; O2SAT 95
[2022-10-21] MEDS: Albuterol Sulfate (0.083%) 2.5 MG/3 ML VIAL.NEB 10 MG INHALE (20:29)
[2022-10-21] MEDS: methylPREDNISolone Sod Succ 125 MG/2 ML VIAL IVPUSH (20:36)
[2022-10-21] MEDS: ondansetron HCL 4 MG/2 ML VIAL IVPUSH (20:36)
--- NOTE | 2022-10-21 21:45 | PC.NURSE ---
breathing tx complete at this time. Pt relates feeling better at this time.
--- NOTE | 2022-10-21 22:14 | PC.NURSE ---
Pt with episode of coughing and low oxygen stauration to 86%. Pt repositioned in bed and oxygen turned up to 4L per NC. PT states she wears 2L at night at baseline.
== END 2022-10-21 23:53 | disposition home or self-care (01) ==
PROVIDERS: Physician Assistant Medical; Emergency Provider Emergency Medicine
DX: J44.9 Chronic obstructive pulmonary disease, unspecified (principal); R06.02 Shortness of breath; E11.9 Type 2 diabetes mellitus without complications; I10 Essential (primary) hypertension; I48.0 Paroxysmal atrial fibrillation; E66.9 Obesity, unspecified; Z68.42 Body mass index [BMI] 45.0-49.9, adult; Z79.01 Long term (current) use of anticoagulants; Z79.82 Long term (current) use of aspirin; Z79.899 Other long term (current) drug therapy; Z79.4 Long term (current) use of insulin; Z20.822 Contact with and (suspected) exposure to COVID-19
CPT/HCPCS: 71046; 80053; 82803; 83735; 83880; 84484; 85025; 87635; 93005; 94640; 99285; J2405; J2930

== ENCOUNTER 2022-10-22 21:56 | Inpatient (IN) | payer MEDICARE, MEDICAID, SELFPAY ==
--- NOTE | ~2022-10-22 | XR_ITS ---
EXAMINATION: XR CHEST CLINICAL INFORMATION: Shortness of breath, evaluate for pneumonia. COMPARISON: Chest radiograph 10/21/2022. TECHNIQUE: Frontal view of the chest was obtained. FINDINGS: Stable appearance of the cardiomediastinal silhouette with central pulmonary vasculature enlargement suggesting pulmonary hypertension. Similar degree of peribronchovascular thickening bilaterally. No new focal airspace opacity, pleural effusion or pneumothorax. Severe degenerative osteoarthritis in both shoulders. XR/XR chest 1V IMPRESSION: Stable examination compared to yesterday's with diffuse peribronchovascular thickening and enlarged central pulmonary arteries that could be seen with pulmonary hypertension and pulmonary edema. However, an atypical/infectious inflammatory process, including bronchitis and viral pneumonia cannot be excluded.
[2022-10-22 22:09] VITALS: BP 149/91; PULSE 75; RESP 14; TEMP 36.7; O2SAT 99
--- NOTE | 2022-10-22 22:10 | ED_ITS ---
HPI - SOB/Dyspnea General Chief Complaint: Asthma Stated Complaint: difficulty breathing Time Seen by Provider: 10/22/22 22:04 Source: patient Mode of arrival: EMS Limitations: no limitations History of Present Illness HPI Narrative: 72-year-old female who presents emergency department for evaluation of shortness of breath. Patient states she has a history of asthma and COPD. She states she has had difficulty breathing for 2 days. She states that yesterday, she ran out of her albuterol nebulizer solution and came to emergency department for evaluation. In reviewing the note from 10/21/2022 patient told the provider that she had been short of breath for 3 days, cough worsening secondary to postnasal drip/seasonal allergies. Patient's lab the unremarkable, chest x-ray revealed no pneumonia, the patient was treated with 1 dose of albuterol, Solu-Medrol and Zofran. Patient was discharged with prescriptions for albuterol nebulizer solution and prednisone 50 mg daily for 4 days. Patient states that today she was feeling fine but needed to use in nebulizer in the morning. She states that since 16:00 hours she was feeling short of breath on and off. She took a nebulizer at 16:00 hours but felt progressively worse therefore she called 911 and was brought to emergency department. ENTs reported that the patient was hypoxic in place the patient on 100% non-rebreather. Here in the emergency department on room air the patient's O2 saturation was 96%. Lung exam did reveal diffuse wheezing. She was ordered to get an albuterol nebulizer. Related Data Home Medications Medication Instructions Recorded Confirmed albuterol sulfate 90 mcg/actuation 2 puff inhalation Q4-6H PRN 01/23/21 03/17/22 aerosol inhaler (Proventil HFA) Wheezing apixaban 5 mg tablet (Eliquis) 5 mg PO BID 01/23/21 03/17/22 gabapentin 300 mg capsule 300 mg PO BID 01/23/21 03/17/22 lisinopril 5 mg tablet 5 mg PO DAILY 01/23/21 03/17/22 simvastatin 40 mg tablet 40 mg PO BEDTIME 01/23/21 03/17/22 Lactobacillus rhamnosus GG 10 1 cap PO DAILY 10/24/21 03/17/22 billion cell capsule (Culturelle) aspirin 81 mg tablet,delayed 81 mg PO DAILY 10/24/21 03/17/22 release fluticasone propionate 100 1 puff PO BID 10/24/21 03/17/22 mcg/actuation blister powder for inhalation (Flovent Diskus) insulin glargine 100 unit/mL (3 64 unit subcut DAILY 10/24/21 03/17/22 mL) subcutaneous pen (Lantus Solostar U-100 Insulin) furosemide 40 mg tablet 40 mg PO BID 03/09/22 03/17/22 metformin 850 mg tablet 850 mg PO BIDWM 03/09/22 03/17/22 metoprolol tartrate 50 mg tablet 50 mg PO BID 03/09/22 03/17/22 ergocalciferol (vitamin D2) 1,250 1 cap PO WE@0900 03/17/22 03/17/22 mcg (50,000 unit) capsule fluticasone propionate 50 1 spray intranasal BID 03/17/22 03/17/22 mcg/actuation nasal spray,suspension insulin lispro 100 unit/mL See Protocol subcut TIDAC 03/17/22 03/17/22 subcutaneous pen (Humalog KwikPen (U-100) Insulin) nystatin 100,000 unit/gram topical 1 appl topical BID PRN Rash 03/17/22 03/17/22 powder Previous Rx's Medication Instructions Recorded ipratropium 0.5 mg-albuterol 3 mg 3 ml inhalation RQ4H WHILE AWAKE 03/19/22 (2.5 mg base)/3 mL nebulization PRN Shortness Of Breath Or soln Wheezing #300 mL nebulizers #1 ea 03/19/22 prednisone 20 mg tablet 40 mg PO DAILY #6 tabs 03/19/22 albuterol sulfate 2.5 mg/3 mL 2.5 mg (3 mL) inhalation Q4-6H PRN 07/25/22 (0.083 %) solution for nebulization shortness of breath or wheezing #75 mL albuterol sulfate 90 mcg/actuation 2 puff inhalation Q4-6H PRN 07/25/22 aerosol inhaler (ProAir HFA) shortness of breath or wheezing #8.5 grams prednisone 20 mg tablet 60 mg PO DAILY 5 days #15 tabs 07/25/22 nitrofurantoin 100 mg PO BID #20 caps 08/08/22 monohydrate/macrocrystals 100 mg capsule (Macrobid) cephalexin 500 mg tablet 500 mg PO Q6H 10 days #40 tabs 08/15/22 doxycycline hyclate 100 mg capsule 100 mg PO BID 10 days #20 caps 08/15/22 albuterol sulfate 2.5 mg/3 mL 2.5 mg (3 mL) inhalation Q4H PRN 10/21/22 (0.083 %) solution for nebulization shortness of breath or wheezing #75 mL prednisone 50 mg tablet 50 mg PO DAILY #4 tabs 10/21/22 Allergies Allergy/AdvReac Type Severity Reaction Status Date / Time silver sulfadiazine Allergy Unknown UNK Verified 03/17/22 04:34 [From TRINY] Review of Systems Review of Systems: Yes all other systems are reviewed and are negative [facility] Past Medical History Medical History Aortic stenosis Bacteriuria Chronic heart failure with preserved ejection fraction (HFpEF) Chronic hypoxemic respiratory failure Chronic indwelling Molina catheter Chronic UTI Chronic UTI Congestive heart failure COPD (chronic obstructive pulmonary disease) Diabetes Diarrhea Glaucoma H/O: CVA (cerebrovascular accident) Hypertension Hypotonic neurogenic bladder Non-rheumatic aortic stenosis Obesity Obstructive sleep apnea Osteoarthritis Paroxysmal atrial fibrillation Severe sepsis UTI (urinary tract infection) Surgical History H/O adenoidectomy H/O enucleation of left eyeball History of tonsillectomy Family History Family History Father No problems noted. Mother No problems noted. Social History Social History Household Members: None Housing: Apartment Do you presently have visiting nurse or other home services: Yes (also has [employer]) Unable to assess alcohol history related to: Unknown Alcohol intake: never Patient Tobacco Use Status: Never used Tobacco Smoked in Last 30 Days: No Second Hand Smoke Exposure: No Use of substances other than those prescribed or required for medical reasons: No Advance Directives: Yes Advance Directives on File: Yes Advance Directives Date on File: 07/09/20 service: No Current occupational status: disabled Physical Exam Vital Signs: Vital Signs: Last Vital Signs Temp 98.1 F 10/22/22 22:09 Pulse 72 10/23/22 01:26 Resp 16 10/23/22 01:26 BP 159/98 H 10/23/22 01:26 Pulse Ox 96 10/23/22 01:26 O2 Del Method Nasal Cannula 10/23/22 01:26 O2 Flow Rate 2 10/23/22 01:26 BMI result Body Mass Index 20.1 Const: Other: Awake, alert, female patient, able to speak in full sentences, does not appear to be in distress, elevated BMI HEENT: Head: Yes normal to inspection, Yes normocephalic and Yes atraumatic Ears: external ears normal General nose exam: Normal external nose present Face and sinus: Yes normal facial exam Mouth: Normal oral and palatal mucosa present Throat: Yes posterior oropharynx normal Eyes: General: appearance normal, both eyes and all related structures Pupils: Equal, round and reactive pupils present Neck: Neck: Yes normal visual inspection, Yes no lymphadenopathy, Yes trachea midline and Yes supple Chest: Chest palpation & inspection: normal inspection of the chest and normal palpation of entire chest wall Resp: Other: Speaks in full sentences, diffuse wheezing with no rales or rhonchi, breath sounds symmetric bilateral Cardio: Rate: regular rate Rhythm: regular rhythm Heart sounds: S1 normal heart sound present, S2 normal heart sound present and no murmurs GI: Inspection: Yes normal to inspection Palpation (GI): Soft to palpation, nontender and no guarding Auscultation: normal bowel sounds : General: Yes no CVA tenderness Back/Spine/Pelvis: Back: no CVA tenderness Skin: General skin exam: no rashes or lesions noted Neuro: Cranial nerves: Yes CN's II-XII intact bilaterally and Yes Equal, round and reactive pupils present Cognition (Neuro): normal cognition Motor exam (neuro): 5/5 motor strength present throughout Extrem: General: Yes normal to inspection Psych: Appearance: grossly normal Speech and movement: Normal speech and movement present Affect: normal affect Attitude: cooperative Thought process: Normal thought process present Thought content: Normal thought content present Medications Administered Discontinued Medications Generic Name Dose Route Start Last Admin Trade Name Freq PRN Reason Stop Dose Admin Albuterol Sulfate 5 mg 10/22/22 22:15 10/22/22 22:18 Albuterol Sulfate (0.083%) 2.5 Mg/3 Ml Vial.Neb INHALE 10/22/22 22:16 5 mg ONCE ONE Administration Furosemide 80 mg 10/23/22 01:07 10/23/22 01:31 Furosemide 100 Mg/10 Ml Vial IVPUSH 10/23/22 01:08 80 mg ONCE STA Administration Protocol Methylprednisolone Sodium Succinate 125 mg 10/22/22 22:15 10/22/22 22:46 Methylprednisolone Sod Succ 125 Mg/2 Ml Vial IVPUSH 10/22/22 22:16 125 mg ONCE ONE Administration Medical Decision Making Medical Decision Making MDM Narrative: 72-year-old female with history of COPD and asthma who presents emergency department for evaluation of increased shortness of breath since 16:00 hours, she used her nebulizer once at 18:00 hours with no relief. She states that her shortness of breath got progressively worse therefore she had to call 911. Patient was given oxygen during transport but here in the emergency department on room air her O2 saturation was 96%. Patient states she has had increased cough but she attributes this to seasonal allergies and postnasal drip. Lung exam did reveal diffuse wheezing with no rales or rhonchi, breath sounds symmetric bilaterally. I ordered an albuterol nebulizer 5 mg x 1, Solu-Medrol 125 mg IV x1. I will check a CBC, CMP, BNP chest x-ray, EKG on the patient. 0108: My interpretation patient's laboratory evaluation is as follows: CBC was normal. Sodium low 131, chloride low 90-most likely secondary to furosemide. Bicarb elevated 32. Glucose elevated 230. BNP elevated 185 compared to 49 on 10/22/2019. Chest x-ray on my reading is concerning for increased interstitial markings consistent with pulmonary edema. Patient's presentation is consistent with pulmonary edema and asthma exacerbation. Patient takes Lasix 80 mg twice a day and I did order Lasix 80 mg IV. Patient's 12 EKG was unremarkable unchanged from previous. I will discuss admission with the covering hospitalist. 0122: I did discuss, over tiger text, the patient's presentation with the covering hospitalist, Dr. Bhatt the patient was accepted on to the hospital service. Differential Diagnosis Differential diagnosis includes was not limited to asthma exacerbate, COPD exacerbation, CHF, pneumonia Admission/Observation Consideration of admission/observation: Escalation of care including admission/observation considered Consult Healthcare Provider Management of the patient was discussed with: Hospitalist Lab Data MDM Lab Attestation statement: I reviewed the patient's lab results. Please see MDM 10/22/22 22:40 10/22/22 22:40 Labs: Lab Results 10/22/22 10/22/22 10/22/22 Range/Units 22:40 22:40 22:40 WBC 9.2 (4.8-10.8) X10*3/uL RBC 5.10 (4.20-5.50) X10*6/uL Hgb 13.7 (12.0-16.0) g/dl Hct 42.2 (37.0-47.0) % MCV 82.7 (80.0-98.0) fL MCH 26.9 L (27.0-33.0) pg MCHC 32.5 (31.0-35.0) g/dl RDW 17.0 H (11.0-16.0) % Plt Count 178 (160-400) X10*3/uL MPV 10.4 (9.4-12.3) fL Immature Gran % (Auto) 0.3 (0.0-0.4) % Neut % (Auto) 82.5 H (45-73) % Lymph % (Auto) 8.6 L (20-40) % [place] % (Auto) 8.5 (2-11) % Eos % (Auto) 0.0 (0-4) % Baso % (Auto) 0.1 (0-2) % Lymph # (Auto) 0.8 L (1.2-4.9) X10*3/uL [place] # (Auto) 0.8 (0.1-1.2) X10*3/uL Eos # (Auto) 0.0 (0.0-0.4) X10*3/uL Baso # (Auto) 0.0 (0.0-0.2) X10*3/uL Abs Immat Gran (auto) 0.03 (0.00-0.03) X10*3/uL Absolute Neuts (auto) 7.6 (2.0-8.3) x10*3/uL Absolute Nucleated RBC 0.000 (0.0-0.012) X10*3/uL Nucleated RBC % (auto) 0.0 (0.0-0.2) /100WBC Sodium 131 L (135-145) mmol/L Potassium 4.5 (3.3-5.1) mmol/L Chloride 90 L (96-108) mmol/L Carbon Dioxide 32 H (22-29) mmol/L Anion Gap 14 (12-20) BUN 19 H (9-16) mg/dL Creatinine 0.72 (0.5-1.4) mg/dL Estim Creat Clear Calc 64.0 Estimated GFR > 60 Random Glucose 230 H (60-115) mg/dL Calcium 9.3 D (8.4-10.2) mg/dL Total Bilirubin 0.4 (0.0-1.0) mg/dL AST 29 (5-31) U/L ALT 44 H (0-31) U/L Alkaline Phosphatase 114 (39-117) U/L B-Natriuretic Peptide 185 H (<100) pg/mL Total Protein 6.8 (6.5-8.0) g/dL Albumin 4.0 (3.5-5.0) g/dL COVID-19 (ERIKA) (Negative) COVID-19 Clin Com 10/22/22 Range/Units 22:40 WBC (4.8-10.8) X10*3/uL RBC (4.20-5.50) X10*6/uL Hgb (12.0-16.0) g/dl Hct (37.0-47.0) % MCV (80.0-98.0) fL MCH (27.0-33.0) pg MCHC (31.0-35.0) g/dl RDW (11.0-16.0) % Plt Count (160-400) X10*3/uL MPV (9.4-12.3) fL Immature Gran % (Auto) (0.0-0.4) % Neut % (Auto) (45-73) % Lymph % (Auto) (20-40) % [place] % (Auto) (2-11) % Eos % (Auto) (0-4) % Baso % (Auto) (0-2) % Lymph # (Auto) (1.2-4.9) X10*3/uL [place] # (Auto) (0.1-1.2) X10*3/uL Eos # (Auto) (0.0-0.4) X10*3/uL Baso # (Auto) (0.0-0.2) X10*3/uL Abs Immat Gran (auto) (0.00-0.03) X10*3/uL Absolute Neuts (auto) (2.0-8.3) x10*3/uL Absolute Nucleated RBC (0.0-0.012) X10*3/uL Nucleated RBC % (auto) (0.0-0.2) /100WBC Sodium (135-145) mmol/L Potassium (3.3-5.1) mmol/L Chloride (96-108) mmol/L Carbon Dioxide (22-29) mmol/L Anion Gap (12-20) BUN (9-16) mg/dL Creatinine (0.5-1.4) mg/dL Estim Creat Clear Calc Estimated GFR Random Glucose (60-115) mg/dL Calcium (8.4-10.2) mg/dL Total Bilirubin (0.0-1.0) mg/dL AST (5-31) U/L ALT (0-31) U/L Alkaline Phosphatase (39-117) U/L B-Natriuretic Peptide (<100) pg/mL Total Protein (6.5-8.0) g/dL Albumin (3.5-5.0) g/dL COVID-19 (ERIKA) Negative (Negative) COVID-19 Clin Com See Note Independent Interpretation I performed an independent interpretation of an: EKG Interpretation: My independent interpretation patient's 12 EKG done at 22:02 hours is as follows: Sinus rhythm with a rate of 75, first-degree AV block with NM interval 214 milliseconds, no ST segment elevation, no ST segment depression, no PACs, no PVCs poor R-wave progression from V1 to V2. Compared to EKG done 10/21/2022, first-degree AV block is new-previous NM interval was 196 millisecond, poor R- wave progression is old, no significant changes noted Radiology Impression Discussion of test interpretation with radiology: I have reviewed the radiologist's reading. Radiologist Impression: XR chest 1V IMPRESSION: Stable examination compared to yesterday's with diffuse peribronchovascular thickening and enlarged central pulmonary arteries that could be seen with pulmonary hypertension and pulmonary edema. However, an atypical/infectious inflammatory process, including bronchitis and viral pneumonia cannot be excluded. Dictated By:Larisa BellSigned By:<Electronically signed by Larisa Bell in [place]>10/22/22 2694 Independent Historian Clinical information obtained from an independent historian. History obtained from or confirmed by: EMS External Record Review External record reviewed: Inpatient record Discharge Plan Discharge Patient Disposition: Admitted As Inpatient Prescriptions: No Action simvastatin 40 mg tablet 40 mg PO BEDTIME gabapentin 300 mg capsule 300 mg PO BID lisinopril 5 mg tablet 5 mg PO DAILY albuterol sulfate [Proventil HFA] 90 mcg/actuation HFA aerosol inhaler 2 puff inhalation Q4-6H PRN (Reason: Wheezing) Eliquis 5 mg tablet 5 mg PO BID ergocalciferol (vitamin D2) 1,250 mcg (50,000 unit) capsule 1 cap PO WE@0900 nystatin 100,000 unit/gram powder 1 appl topical BID PRN (Reason: Rash) fluticasone propionate 50 mcg/actuation spray,suspension 1 spray intranasal BID insulin lispro [Humalog KwikPen Insulin] 100 unit/mL insulin pen See Protocol subcut TIDAC Protocol: Insulin Correction Scale Less than or equal to 110 ---- Give (units): 0 111 to 150 Give (units): 0 151 to 200 Give (units): 2 201 to 250 Give (units): 4 251 to 300 Give (units): 6 301 to 350 Give (units): 8 Greater than 350 Give (units): 10 Call MD if Blood Glucose > : 350 ipratropium-albuterol 0.5 mg-3 mg(2.5 mg base)/3 mL Solution For Nebulization 3 ml inhalation RQ4H WHILE AWAKE PRN (Reason: Shortness Of Breath Or Wheezing) Qty: 300 0RF (DME) nebulizers Misc See Rx Instructions .Route Qty: 1 0RF Rx Instructions: As directed prednisone 20 mg tablet 40 mg PO DAILY Qty: 6 0RF albuterol sulfate 2.5 mg /3 mL (0.083 %) solution for nebulization 2.5 mg inhalation Q4-6H PRN (Reason: shortness of breath or wheezing) Qty: 75 0RF prednisone 20 mg tablet 60 mg PO DAILY 5 Days Qty: 15 0RF albuterol sulfate [ProAir HFA] 90 mcg/actuation HFA aerosol inhaler 2 puff inhalation Q4-6H PRN (Reason: shortness of breath or wheezing) Qty: 8.5 0RF Flovent Diskus 100 mcg/actuation blister with device 1 puff PO BID insulin glargine [Lantus Solostar U-100 Insulin] 100 unit/mL (3 mL) insulin pen 64 unit subcut DAILY aspirin 81 mg Tablet,Delayed Release (Dr/Ec) 81 mg PO DAILY Culturelle 10 billion cell Capsule 1 cap PO DAILY metformin 850 mg tablet 850 mg PO BIDWM metoprolol tartrate 50 mg tablet 50 mg PO BID furosemide 40 mg tablet 40 mg PO BID nitrofurantoin monohyd/m-cryst [Macrobid] 100 mg capsule 100 mg PO BID Qty: 20 0RF Rx Instructions: must administer with a meal/food cephalexin 500 mg tablet 500 mg PO Q6H 10 Days Qty: 40 0RF doxycycline hyclate 100 mg capsule 100 mg PO BID 10 Days Qty: 20 0RF albuterol sulfate 2.5 mg /3 mL (0.083 %) solution for nebulization 2.5 mg inhalation Q4H PRN (Reason: shortness of breath or wheezing) Qty: 75 0RF prednisone 50 mg tablet 50 mg PO DAILY Qty: 4 0RF
[2022-10-22 22:16] VITALS: BP 142/90; BP 146/92; PULSE 96; PULSE 98; RESP 21; O2SAT 100; O2SAT 82; BMI 44.4
--- NOTE | 2022-10-22 22:16 | ECG_ITS ---
Test Reason : sob Blood Pressure : / mmHG Vent. Rate : 075 BPM Atrial Rate : 075 BPM P-R Int : 214 ms QRS Dur : 102 ms QT Int : 378 ms P-R-T Axes : 034 006 070 degrees QTc Int : 422 ms Sinus rhythm with 1st degree A-V block Minimal voltage criteria for LVH, may be normal variant ( Daniel product ) Septal infarct (cited on or before 24-OCT-2021) Abnormal ECG When compared with ECG of 21-OCT-2022 18:20, No significant change was found Referred By: Ashvin Gonzalez Electronically Signed By:CAMERON HO MD
[2022-10-22 22:17] VITALS: PULSE 74; RESP 16; O2SAT 99
[2022-10-22] MEDS: Albuterol Sulfate (0.083%) 2.5 MG/3 ML VIAL.NEB 5 MG INHALE (22:18)
[2022-10-22 22:45] LABS: MANUAL DIFF FLAG NO
[2022-10-22] MEDS: methylPREDNISolone Sod Succ 125 MG/2 ML VIAL IVPUSH (22:46)
[2022-10-22 22:47] LABS: Basophils Percent Auto 0.1 % (0-2); Hematocrit 42.2 % (37.0-47.0); Hemoglobin 13.7 g/dl (12.0-16.0); Imm Gran Abs Auto 0.03 X10*3/uL (0.00-0.03); Imm Gran Pct Auto 0.3 % (0.0-0.4); Lymphocytes Absolute Auto 0.8 X10*3/uL (1.2-4.9); Lymphocytes Percent Auto 8.6 % (20-40); Mean Corpuscular HGB Conc 32.5 g/dl (31.0-35.0); Mean Corpuscular Hemoglobin 26.9 pg (27.0-33.0); Mean Corpuscular Volume 82.7 fL (80.0-98.0); Mean Platelet Volume 10.4 fL (9.4-12.3); Monocytes Absolute Auto 0.8 X10*3/uL (0.1-1.2); Monocytes Percent Auto 8.5 % (2-11); Neutrophils Absolute Auto 7.6 x10*3/uL (2.0-8.3); Neutrophils Percent Auto 82.5 % (45-73); Platelet Count 178 X10*3/uL (160-400); White Blood Count 9.2 X10*3/uL (4.8-10.8)
[2022-10-22 23:05] LABS: COVID-19 Test Negative (Negative); IDNOW Serial# 6674DD1D
[2022-10-22 23:07] LABS: Alanine Aminotransferase 44 U/L (0-31); Alkaline Phosphatase 114 U/L (39-117); Anion Gap 14 (12-20); Aspartate Amino Transferase 29 U/L (5-31); Bilirubin Total 0.4 mg/dL (0.0-1.0); Blood Urea Nitrogen 19 mg/dL (9-16); Calcium 9.3 mg/dL (8.4-10.2); Carbon Dioxide 32 mmol/L (22-29); Chloride 90 mmol/L (96-108); Estimated Glomerular Filt Rate > 60; Glucose Random 230 mg/dL (60-115); Potassium 4.5 mmol/L (3.3-5.1); Sodium 131 mmol/L (135-145); Total Protein 6.8 g/dL (6.5-8.0)
[2022-10-22 23:13] LABS: B Type Natriuretic Peptide 185 pg/mL (<100)
[2022-10-22 23:40] VITALS: BP 152/56; PULSE 72; RESP 20; O2SAT 97
--- NOTE | 2022-10-22 23:51 | PC.NURSE ---
pt has a rai from home
[2022-10-23] VITALS (10 sets, daily range): BP systolic 125–159; BP diastolic 58–98; PULSE 62–93; RESP 12–20; TEMP 36.2–36.6; O2SAT 94–100
--- NOTE | 2022-10-23 01:07 | PC.NURSE ---
while emptying rai bag, foul odor noted MD aware asked if order for ua/uc could be ordered order per MD to follow
[2022-10-23] MEDS: Furosemide 100 MG/10 ML VIAL 80 MG IVPUSH (01:31)
[2022-10-23 01:46] LABS: Appearance Urine Clear; Color Urine Yellow; Glucose Urine UA 100 mg/dL (Negative); Leukocyte Esterase Urine Moderate (2+) (Negative); Nitrite Urine Positive (Negative); UMIC TRIGGER UACC YES; Urine Blood Large (3+) (Negative); Urine Ketones Negative (Negative); Urine Protein Trace mg/dL (Neg-Trace)
[2022-10-23 01:49] LABS: Troponin-I High Sensitivity 12.5 ng/L (<3.5-17.0)
[2022-10-23 01:51] LABS: Bacteria Urine 4+ (None Seen); Hyaline Casts Urine 0-2 /LPF (0-2); Squamous Epithelial Cell Urine 0-2 /HPF (0-2); UACC Culture Trigger YES; WBC Urine 21-50 /HPF (0-5)
--- NOTE | 2022-10-23 02:06 | PC.NURSE ---
med rec complete
--- NOTE | 2022-10-23 02:07 | PC.NURSE ---
pt continues to have occasional productive cough, producing clear sputum
--- NOTE | 2022-10-23 02:21 | PM.IMHP ---
History of Present Illness Date of Service: 10/23/22 Chief Complaint: Dyspnea This is a 72-year-old female with pertinent history of congestive heart failure with preserved ejection fraction, insulin-dependent diabetes mellitus, essential hypertension, chronic hypoxemic respiratory failure due to COPD with baseline 2 L supplemental oxygen paroxysmal atrial fibrillation on Eliquis who presents to the emergency department for evaluation of dyspnea. Patient states she has been feeling short of breath for the last 2 days, worse with ambulation. Patient was seen in the ER yesterday and was sent home with p.o. prednisone. Patient states she continued to have wheezing and dyspnea which did not improve with her home inhaler. Patient states she feels like there is fluid in her lungs. Patient denies fever, chills, chest discomfort, palpitations, abdominal pain, changes in urinary or bowel habits. She is compliant with home medications. In the emergency department, patient continued to be dyspneic after receiving IV Lasix and breathing treatments Review of Systems Cardiovascular: Cardiovascular: Reports dyspnea on exertion and Reports orthopnea Respiratory: Respiratory: Reports cough, Reports dyspnea on exertion and Reports wheezing Gastrointestinal: Gastrointestinal: Reports no additional gastrointestinal complaints Genitourinary: Genitourinary: Reports no additional female genitourinary complaints Allergic/Immunologic: Allergic/Immunologic: Reports wheezing [facility] Medical History Aortic stenosis Bacteriuria Chronic heart failure with preserved ejection fraction (HFpEF) Chronic hypoxemic respiratory failure Chronic indwelling Molina catheter Chronic UTI Chronic UTI Congestive heart failure COPD (chronic obstructive pulmonary disease) Diabetes Diarrhea Glaucoma H/O: CVA (cerebrovascular accident) Hypertension Hypotonic neurogenic bladder Non-rheumatic aortic stenosis Obesity Obstructive sleep apnea Osteoarthritis Paroxysmal atrial fibrillation Severe sepsis UTI (urinary tract infection) Family History Father No problems noted. Mother No problems noted. Surgical History H/O adenoidectomy H/O enucleation of left eyeball History of tonsillectomy Social History Household Members: None Housing: Apartment Do you presently have visiting nurse or other home services: Yes (also has tester rocket engine's) Unable to assess alcohol history related to: Unknown Alcohol intake: never Patient Tobacco Use Status: Never used Tobacco Smoked in Last 30 Days: No Second Hand Smoke Exposure: No Use of substances other than those prescribed or required for medical reasons: No Advance Directives: Yes Advance Directives on File: Yes Advance Directives Date on File: 07/09/20 service: No Current occupational status: disabled Meds Allergies Allergy/AdvReac Type Severity Reaction Status Date / Time silver sulfadiazine Allergy Unknown UNK Verified 10/23/22 01:51 [From TRINY] Active Medications: Current Medications Acetaminophen (Acetaminophen 325 Mg Tablet) 650 mg PO Q6H PRN PRN Reason: Pain, Mild (Pain Scale 1-3) Albuterol/Ipratropium (Albuterol/Iprat 2.5/0.5mg 3 Ml Ampul.Neb) 3 ml INHALE RQ4H WHILE AWAKE [facility] Furosemide (Furosemide 40 Mg/4 Ml Vial) 40 mg IVPUSH BID@0900,1800 [facility]; Protocol Melatonin (Melatonin 3 Mg Tablet) 6 mg PO BEDTIME PRN PRN Reason: Insomnia Ondansetron HCl (Ondansetron Hcl 4 Mg/2 Ml Vial) 4 mg IVPUSH Q8H PRN PRN Reason: Nausea and Vomiting Pharmacy Consult (Consult Rx Perform Med Rec) 1 each MISCELLANE ONCE PRN PRN Reason: Consult order Sodium Chloride (0.9 % Sodium Chloride Flush 3 Ml Syringe) 3 ml IVFLUSH QSHIFT [facility] Home Medications Medication Instructions Recorded Confirmed Last Taken Type albuterol sulfate 90 mcg/actuation 2 puff inhalation Q4-6H PRN 01/23/21 10/23/22 03/16/22 History aerosol inhaler (Proventil HFA) Wheezing apixaban 5 mg tablet (Eliquis) 5 mg PO BID 01/23/21 10/23/22 03/16/22 History gabapentin 300 mg capsule 300 mg PO BID 01/23/21 10/23/22 11/02/21 History lisinopril 5 mg tablet 5 mg PO DAILY 01/23/21 10/23/22 03/16/22 History aspirin 81 mg tablet,delayed 81 mg PO DAILY 10/24/21 10/23/22 03/16/22 History release fluticasone propionate 100 1 puff PO BID 0410/23/22 03/16/22 History mcg/actuation blister powder for inhalation (Flovent Diskus) insulin glargine 100 unit/mL (3 64 unit subcut DAILY 10/24/21 10/23/22 03/16/22 History mL) subcutaneous pen (Lantus Solostar U-100 Insulin) furosemide 40 mg tablet 40 mg PO BID 03/09/22 10/23/22 03/16/22 History metoprolol tartrate 50 mg tablet 50 mg PO BID 03/09/22 10/23/22 03/16/22 History Physical Exam Vital Signs and Narrative: Vital Signs: Last Vital Signs Temp 98.1 F 10/22/22 22:09 Pulse 72 10/23/22 01:26 Resp 16 10/23/22 01:26 BP 159/98 H 10/23/22 01:26 Pulse Ox 96 10/23/22 01:26 O2 Del Method Nasal Cannula 10/23/22 01:26 O2 Flow Rate 2 10/23/22 01:26 BMI result Body Mass Index 20.1 Middle-aged female lying in bed in mild distress Neck supple, no JVD Regular rate and rhythm, S1-S2 heard Bilateral crackles and wheezing Abdomen soft nontender, no guarding, no rigidity Patient is awake, alert and oriented to self, place, time and person ; no focal motor deficit Psych: Normal mood Bilateral pedal edema Results Labs 10/22/22 22:40 10/22/22 22:40 Labs: Laboratory Results - last 24 hr 10/22/22 10/22/22 10/22/22 22:40 22:40 22:40 MCV 82.7 MCH 26.9 L MCHC 32.5 RDW 17.0 H Plt Count 178 MPV 10.4 Immature Gran % (Auto) 0.3 Neut % (Auto) 82.5 H Lymph % (Auto) 8.6 L [place] % (Auto) 8.5 Eos % (Auto) 0.0 Baso % (Auto) 0.1 Lymph # (Auto) 0.8 L [place] # (Auto) 0.8 Eos # (Auto) 0.0 Baso # (Auto) 0.0 Abs Immat Gran (auto) 0.03 Absolute Neuts (auto) 7.6 Absolute Nucleated RBC 0.000 Nucleated RBC % (auto) 0.0 Anion Gap 14 Estim Creat Clear Calc 64.0 Estimated GFR > 60 Random Glucose 230 H Calcium 9.3 D Total Bilirubin 0.4 AST 29 ALT 44 H Alkaline Phosphatase 114 Troponin I High Sens B-Natriuretic Peptide 185 H Total Protein 6.8 Albumin 4.0 Urine Color Urine Appearance Urine pH Ur Specific [place] Urine Protein Urine Glucose (UA) Urine Ketones Urine Blood Urine Nitrite Ur Leukocyte Esterase Urine RBC Urine WBC Ur Squamous Epith Cells Urine Bacteria Hyaline Casts COVID-19 (ERIKA) COVID-19 Clin Com 10/22/22 10/23/22 10/23/22 22:40 01:24 01:36 MCV MCH MCHC RDW Plt Count MPV Immature Gran % (Auto) Neut % (Auto) Lymph % (Auto) [place] % (Auto) Eos % (Auto) Baso % (Auto) Lymph # (Auto) [place] # (Auto) Eos # (Auto) Baso # (Auto) Abs Immat Gran (auto) Absolute Neuts (auto) Absolute Nucleated RBC Nucleated RBC % (auto) Anion Gap Estim Creat Clear Calc Estimated GFR Random Glucose Calcium Total Bilirubin AST ALT Alkaline Phosphatase Troponin I High Sens 12.5 B-Natriuretic Peptide Total Protein Albumin Urine Color Yellow Urine Appearance Clear Urine pH 6.0 Ur Specific [place] 1.010 Urine Protein Trace Urine Glucose (UA) 100 H Urine Ketones Negative Urine Blood Large (3+) H Urine Nitrite Positive H Ur Leukocyte Esterase Moderate (2+) H Urine RBC 6-10 H Urine WBC 21-50 H Ur Squamous Epith Cells 0-2 Urine Bacteria 4+ Hyaline Casts 0-2 COVID-19 (ERIKA) Negative COVID-19 Clin Com See Note Imaging Radiologist's Impressions: Impressions Chest X-Ray 10/22/22 22:35 IMPRESSION: Stable examination compared to yesterday's with diffuse peribronchovascular thickening and enlarged central pulmonary arteries that could be seen with pulmonary hypertension and pulmonary edema. However, an atypical/infectious inflammatory process, including bronchitis and viral pneumonia cannot be excluded. Assessment and Plan (1) Congestive heart failure: Status: Acute Plan This is a 72-year-old female with pertinent history of congestive heart failure with preserved ejection fraction, insulin-dependent diabetes mellitus, essential hypertension, chronic hypoxemic respiratory failure due to COPD with baseline 2 L supplemental oxygen, paroxysmal atrial fibrillation on Eliquis who presents to the emergency department for evaluation of dyspnea. #. Acute dyspnea due to decompensation of diastolic heart failure: Will admit patient and initiate IV Lasix. Strict I's and O's and low-salt diet. Noted recent echo with normal systolic function #. Chronic hypoxemic respiratory failure due to COPD: Defer steroids. Wheezing likely cardiac due to above. Continue home baseline 2 L supplemental oxygen. Scheduled and p.r.n. DuoNebs. Continue home inhaler #. Essential hypertension: Continue home antihypertensives #. Paroxysmal atrial fibrillation on Eliquis. Continue rate-controlling agents #. Insulin-dependent diabetes mellitus with hyperglycemia: Continue home basal regimen. Initiating Accu-Cheks with sliding scale insulin #. Asymptomatic bacteriuria: Patient without symptoms. Defer antibiotics #. Morbid obesity: Counseled regarding losing weight #. History of for ERICKA: Not using CPAP at home. Will need outpatient sleep study Med rec pending DVT Prophylaxis: Eliquis 5mg bid Cardiac diet Full code Time Spent With Patient Time: Total time managing care of this patient today ____ minutes. Quality Stroke Does the patient have a stroke diagnosis?: No VTE Prior VTE?: No VTE Risk Level:: Medical - moderate - high VTE Device Contraindication: Treatment Not Indicated VTE Drug Contraindication: N/A - Med Ordered
[2022-10-23 03:21] LABS: Glucose, Whole Blood 265 mg/dL (60-115)
[2022-10-23 06:31] LABS: Basophils Percent Auto 0.1 % (0-2); Hematocrit 43.6 % (37.0-47.0); Hemoglobin 13.7 g/dl (12.0-16.0); Imm Gran Abs Auto 0.03 X10*3/uL (0.00-0.03); Imm Gran Pct Auto 0.4 % (0.0-0.4); Lymphocytes Absolute Auto 0.5 X10*3/uL (1.2-4.9); Lymphocytes Percent Auto 6.6 % (20-40); MANUAL DIFF FLAG SCAN; Mean Corpuscular HGB Conc 31.4 g/dl (31.0-35.0); Mean Corpuscular Hemoglobin 26.8 pg (27.0-33.0); Mean Corpuscular Volume 85.2 fL (80.0-98.0); Monocytes Absolute Auto 0.1 X10*3/uL (0.1-1.2); Monocytes Percent Auto 1.3 % (2-11); Neutrophils Absolute Auto 7.3 x10*3/uL (2.0-8.3); Neutrophils Percent Auto 91.6 % (45-73); Platelet Count 175 X10*3/uL (160-400); Red Blood Count 5.12 X10*6/uL (4.20-5.50); Red Cell Distribution Width 17.1 % (11.0-16.0); SCAN SMEAR FLAG 1; White Blood Count 7.9 X10*3/uL (4.8-10.8)
[2022-10-23 06:36] LABS: Anion Gap 14 (12-20); Blood Urea Nitrogen 17 mg/dL (9-16); Calcium 9.2 mg/dL (8.4-10.2); Carbon Dioxide 36 mmol/L (22-29); Chloride 92 mmol/L (96-108); Creatinine Clr Calc Pharmacy 95.4; Estimated Glomerular Filt Rate > 60; Glucose Random 279 mg/dL (60-115); Potassium 4.6 mmol/L (3.3-5.1); Sodium 137 mmol/L (135-145)
--- NOTE | 2022-10-23 07:10 | PC.NURSE ---
Pt changed out of clothes into hospital attire, clothing found to be saturated in urine. Molina is in place, alex pad removed from under patient.
--- NOTE | 2022-10-23 07:17 | MHC.EDTECH ---
Pt changed and repositioned at this time. Bed in low, locked position. Call bain in reach, able to make needs known.
[2022-10-23 07:19] LABS: Glucose, Whole Blood 300 mg/dL (60-115)
[2022-10-23] MEDS: Albuterol/Iprat 2.5/0.5MG 3 ML AMPUL.NEB INHALE ×4 (07:20→21:17)
[2022-10-23 07:27] LABS: SLIDE REVIEW VERIFIED
[2022-10-23] MEDS: 0.9 % Sodium Chloride Flush 3 ML SYRINGE IVFLUSH ×3 (07:35→20:19)
[2022-10-23] MEDS: Insulin Lispro 100 UNIT/ML 3 ML VIAL SUBCUT ×3 (07:35→20:19)
--- NOTE | 2022-10-23 07:44 | PC.NURSE ---
Alert and oriented, resp even and unlabored. Pt offering no complaints, eating breakfast
--- NOTE | 2022-10-23 08:50 | PHA.MEDREC ---
Pharmacy Consult ? Medication Reconciliation Pharmacy has completed the medication reconciliation. Spoke with patient, she was unsure if she takes Eliquis and said her daughter would know. Spoke with patient's daughter Stefany who confirmed Eliquis and the rest of the medications. Stefany also reported patient takes Simvastatin as well. Tory March, PharmD
--- NOTE | 2022-10-23 10:08 | HO.PM.IMPN ---
Subjective Subjective Date of Service: 10/23/22 <DEANN Purcell - Last Filed: 10/23/22 19:28> 10/25/22 <Juanjose Demarco MD - Last Filed: 10/25/22 08:19> Interval History: Seen in follow up for: CHF exacerbation, COPD exacerbation Interval history: Still SOB, wheezing, right sided chest tightness. Afebrile, VSS. Weaned from high flow and non rebreather, back to 2L NC at baseline. Diuresed -2800ml. <DEANN Purcell - Last Filed: 10/23/22 19:28> Review of Systems Review of Systems: Yes all other systems are reviewed and are negative <DEANN Purcell - Last Filed: 10/23/22 19:28> Physical Exam Vital Signs: Vital Signs: Last Vital Signs Temp 97.9 F 10/23/22 09:01 Pulse 79 10/23/22 09:01 Resp 18 10/23/22 09:01 BP 125/58 L 10/23/22 09:01 Pulse Ox 96 10/23/22 09:01 O2 Del Method Nasal Cannula 10/23/22 09:01 O2 Flow Rate 2 10/23/22 09:01 BMI result Body Mass Index 44.4 <DEANN Purcell - Last Filed: 10/23/22 19:28> Constitutional - Awake and Alert, No apparent distress Eyes - PERRLA, EOMI Cardiovascular - S1S2, RRR, 1+ edema BLE Respiratory - Normal lung expansion, Normal respiratory effort, No respiratory distress, Scattered expiratory wheezing, no rales Gastrointestinal - NT / ND; +BS; No rebound or guarding Extremities - no calf tenderness bilaterally. Chronic venous stasis changes BLE Skin - Warm/Dry Neurological - Alert & oriented x3 <DEANN Purcell - Last Filed: 10/23/22 19:28> Objective Data Active Medications Acetaminophen (Acetaminophen 325 Mg Tablet) 650 mg PO Q6H PRN PRN Reason: Pain, Mild (Pain Scale 1-3) Albuterol/Ipratropium (Albuterol/Iprat 2.5/0.5mg 3 Ml Ampul.Neb) 3 ml INHALE RQ4H WHILE AWAKE [facility] Last Admin: 10/23/22 07:20 Dose: 3 ml Documented By: SERGIO Albuterol/Ipratropium (Albuterol/Iprat 2.5/0.5mg 3 Ml Ampul.Neb) 3 ml INHALE Q4H PRN PRN Reason: Wheezing Furosemide (Furosemide 40 Mg/4 Ml Vial) 40 mg IVPUSH BID@0900,1800 [facility]; Protocol Glucose (Glucose Gel 15 Gm Gel..Gram.) 15 gm PO Q15M PRN; Protocol PRN Reason: per Hypoglycemia Standing Ord. Dextrose (D10) 250 mls @ 750 mls/hr IV Q15M PRN; Protocol PRN Reason: per Hypoglycemia Standing Ord. Insulin Human Lispro (Insulin Lispro 100 Unit/Ml 3 Ml Vial) 0 unit SUBCUT QIDACHS [facility]; Protocol Last Admin: 10/23/22 07:35 Dose: 6 unit Documented By: CATALINA Melatonin (Melatonin 3 Mg Tablet) 6 mg PO BEDTIME PRN PRN Reason: Insomnia Ondansetron HCl (Ondansetron Hcl 4 Mg/2 Ml Vial) 4 mg IVPUSH Q8H PRN PRN Reason: Nausea and Vomiting Pharmacy Consult (Consult Rx Perform Med Rec) 1 each MISCELLANE ONCE PRN PRN Reason: Consult order Sodium Chloride (0.9 % Sodium Chloride Flush 3 Ml Syringe) [facility] Last Admin: 10/23/22 07:35 Dose: 3 ml Documented By: CATALINA <DEANN Purcell - Last Filed: 10/23/22 19:28> Labs CBC & Chem 7: 10/23/22 05:37 10/23/22 05:37 <DEANN Purcell - Last Filed: 10/23/22 19:28> Labs: Laboratory Results - last 24 hr 10/22/22 10/22/22 10/22/22 22:40 22:40 22:40 MCV 82.7 MCH 26.9 L MCHC 32.5 RDW 17.0 H Plt Count 178 MPV 10.4 Immature Gran % (Auto) 0.3 Neut % (Auto) 82.5 H Lymph % (Auto) 8.6 L [place] % (Auto) 8.5 Eos % (Auto) 0.0 Baso % (Auto) 0.1 Lymph # (Auto) 0.8 L [place] # (Auto) 0.8 Eos # (Auto) 0.0 Baso # (Auto) 0.0 Abs Immat Gran (auto) 0.03 Absolute Neuts (auto) 7.6 Absolute Nucleated RBC 0.000 Nucleated RBC % (auto) 0.0 Smear Tech's Comments Anion Gap 14 Estim Creat Clear Calc 64.0 Estimated GFR > 60 POC Glucose Random Glucose 230 H Calcium 9.3 D Total Bilirubin 0.4 AST 29 ALT 44 H Alkaline Phosphatase 114 Troponin I High Sens B-Natriuretic Peptide 185 H Total Protein 6.8 Albumin 4.0 Urine Color Urine Appearance Urine pH Ur Specific [place] Urine Protein Urine Glucose (UA) Urine Ketones Urine Blood Urine Nitrite Ur Leukocyte Esterase Urine RBC Urine WBC Ur Squamous Epith Cells Urine Bacteria Hyaline Casts COVID-19 (ERIKA) COVID-19 [employer] 10/22/22 10/23/22 10/23/22 22:40 01:24 01:36 MCV MCH MCHC RDW Plt Count MPV Immature Gran % (Auto) Neut % (Auto) Lymph % (Auto) [place] % (Auto) Eos % (Auto) Baso % (Auto) Lymph # (Auto) [place] # (Auto) Eos # (Auto) Baso # (Auto) Abs Immat Gran (auto) Absolute Neuts (auto) Absolute Nucleated RBC Nucleated RBC % (auto) Smear Tech's Comments Anion Gap Estim Creat Clear Calc Estimated GFR POC Glucose Random Glucose Calcium Total Bilirubin AST ALT Alkaline Phosphatase Troponin I High Sens 12.5 B-Natriuretic Peptide Total Protein Albumin Urine Color Yellow Urine Appearance Clear Urine pH 6.0 Ur Specific [place] 1.010 Urine Protein Trace Urine Glucose (UA) 100 H Urine Ketones Negative Urine Blood Large (3+) H Urine Nitrite Positive H Ur Leukocyte Esterase Moderate (2+) H Urine RBC 6-10 H Urine WBC 21-50 H Ur Squamous Epith Cells 0-2 Urine Bacteria 4+ Hyaline Casts 0-2 COVID-19 (ERIKA) Negative COVID-19 [employer] See Note 10/23/22 10/23/22 10/23/22 03:16 05:37 05:37 MCV 85.2 MCH 26.8 L MCHC 31.4 RDW 17.1 H Plt Count 175 MPV 11.0 Immature Gran % (Auto) 0.4 Neut % (Auto) 91.6 H Lymph % (Auto) 6.6 L [place] % (Auto) 1.3 L Eos % (Auto) 0.0 Baso % (Auto) 0.1 Lymph # (Auto) 0.5 L [place] # (Auto) 0.1 Eos # (Auto) 0.0 Baso # (Auto) 0.0 Abs Immat Gran (auto) 0.03 Absolute Neuts (auto) 7.3 Absolute Nucleated RBC 0.000 Nucleated RBC % (auto) 0.0 Smear Tech's Comments VERIFIED Anion Gap 14 Estim Creat Clear Calc 95.4 Estimated GFR > 60 POC Glucose 265 H Random Glucose 279 H Calcium 9.2 Total Bilirubin AST ALT Alkaline Phosphatase Troponin I High Sens B-Natriuretic Peptide Total Protein Albumin Urine Color Urine Appearance Urine pH Ur Specific [place] Urine Protein Urine Glucose (UA) Urine Ketones Urine Blood Urine Nitrite Ur Leukocyte Esterase Urine RBC Urine WBC Ur Squamous Epith Cells Urine Bacteria Hyaline Casts COVID-19 (ERIKA) COVID-19 [employer] 10/23/22 07:00 MCV MCH MCHC RDW Plt Count MPV Immature Gran % (Auto) Neut % (Auto) Lymph % (Auto) [place] % (Auto) Eos % (Auto) Baso % (Auto) Lymph # (Auto) [place] # (Auto) Eos # (Auto) Baso # (Auto) Abs Immat Gran (auto) Absolute Neuts (auto) Absolute Nucleated RBC Nucleated RBC % (auto) Smear Tech's Comments Anion Gap Estim Creat Clear Calc Estimated GFR POC Glucose 300 H Random Glucose Calcium Total Bilirubin AST ALT Alkaline Phosphatase Troponin I High Sens B-Natriuretic Peptide Total Protein Albumin Urine Color Urine Appearance Urine pH Ur Specific [place] Urine Protein Urine Glucose (UA) Urine Ketones Urine Blood Urine Nitrite Ur Leukocyte Esterase Urine RBC Urine WBC Ur Squamous Epith Cells Urine Bacteria Hyaline Casts COVID-19 (ERIKA) COVID-19 Clin Com <DEANN Purcell - Last Filed: 10/23/22 19:28> Assessment and Plan (1) Congestive heart failure: Status: Acute <DEANN Purcell - Last Filed: 10/23/22 19:28> (2) Acute exacerbation of chronic obstructive pulmonary disease: Status: Acute <DEANN Purcell - Last Filed: 10/23/22 19:28> Assessment and Plan: This is a 72-year-old female with pertinent history of congestive heart failure with preserved ejection fraction, insulin-dependent diabetes mellitus, essential hypertension, chronic hypoxemic respiratory failure due to COPD with baseline 2 L supplemental oxygen, paroxysmal atrial fibrillation on Eliquis admitted for acute CHF exacerbation and COPD exacerbation #Acute decompensation of diastolic heart failure -Diuresed -2800, BNP trending down -Still with bilateral wheezing, sob. Edema improved, no JVD -40mg IV lasix this am, transition to home dose 40mg lasix PO BID -Strict I&O -Cardiac diet -Echo 09/01 with normal LV systolic function EF 60-65%, severe LVH, impaired relaxation filling pattern and mild-moderate , severe mitral calcification? #Chronic hypoxemic respiratory failure due to COPD -Weaned from high flow prior to admission. Continue baseline supplemental O2 to maintain oximetry 92% #Acute COPD exacerbation -ongoing wheezing despite diuresis -Loaded with methylprednisolone in ED. Initiate 60mg COPD daily -Duonebs q4h while awake -albuterol q2h prn -continue home inhalers -Abx not indicated #Essential hypertension- reasonably controlled -Continue home antihypertensives #Paroxysmal atrial fibrillation- rate controlled -continue eliquis and rate control medications #Insulin-dependent diabetes mellitus with hyperglycemia -Dose adjusted lantus -Increase humalog sliding scale by 2 units -POC glucose -Diabetic diet Initiating #Chronic hypotonic neurogenic bladder -continue chronic rai #Asymptomatic bacteriuria -UC pending, Patient without symptoms.? Defer antibiotics #Morbid obesity with BMI >44 related to excess calories -Counseled regarding losing weight #History of for ERICKA -Not using CPAP at home.? Will need outpatient sleep study DVT Prophylaxis: Eliquis 5mg bid Full code Pt requires inpt stay at least 2 midnights for management of acute CHF exacerbation adn acute COPD exacerbation requiring IV diuresis and close monitoring of I&O as well as well as renal function <DEANN Purcell - Last Filed: 10/23/22 19:28> Time Spent With Patient Time: Total time managing care of this patient today ____ minutes. <DEANN Purcell - Last Filed: 10/23/22 19:28> Quality Stroke Does the patient have a stroke diagnosis?: No <DEANN Purcell - Last Filed: 10/23/22 19:28> VTE Prior VTE?: No <DEANN Purcell - Last Filed: 10/23/22 19:28> VTE Risk Level:: Medical - moderate - high <DEANN Purcell - Last Filed: 10/23/22 19:28> VTE Device Contraindication: Treatment Not Indicated <DEANN Purcell - Last Filed: 10/23/22 19:28> VTE Drug Contraindication: N/A - Med Ordered <DEANN Purcell - Last Filed: 10/23/22 19:28>
--- NOTE | 2022-10-23 10:20 | MHC.CM.PN ---
pts dgter is her emergency service restorer she will need amb when dcd home she is requesting a vna when dcd elara has acepted pt will need f2f ot is segun pickard x 4 pcp is chelsy kaplan out of [place]
[2022-10-23] MEDS: predniSONE 20 MG TABLET 60 MG PO (10:36)
[2022-10-23] MEDS: Furosemide 40 MG/4 ML VIAL IVPUSH (10:37)
[2022-10-23 10:54] LABS: B Type Natriuretic Peptide 132 pg/mL (<100)
[2022-10-23 10:59] LABS: Glucose, Whole Blood 571 mg/dL (60-115)
[2022-10-23] MEDS: lisinopriL 5 MG TABLET PO (12:20)
[2022-10-23] MEDS: Gabapentin 300 MG CAPSULE PO ×2 (12:20→20:19)
[2022-10-23] MEDS: Insulin Glargine,Hum.rec.anlog 100 UNIT/ML 10 ML VIAL 53 UNIT SUBCUT (12:21)
[2022-10-23] MEDS: Apixaban 5 MG TABLET PO ×2 (12:24→20:19)
[2022-10-23 16:18] LABS: Glucose, Whole Blood 520 mg/dL (60-115)
--- NOTE | 2022-10-23 16:38 | PC.NURSE ---
Due to hyperglycemic events, Provider ordered 10 units of Regular insulin IV push to be given instead of the Lispro.
[2022-10-23] MEDS: Furosemide 40 MG TABLET PO (17:30)
[2022-10-23] MEDS: Insulin Regular, Human 100 UNIT/ML 3 ML VIAL 10 UNIT IVPUSH (17:59)
[2022-10-23 18:29] LABS: Glucose, Whole Blood 383 mg/dL (60-115)
[2022-10-23 20:10] LABS: Glucose, Whole Blood 388 mg/dL (60-115)
--- NOTE | 2022-10-23 20:14 | MHC.PIE ---
p; poc 388 i; dr wolff notified e; will cont to monitor
[2022-10-23] MEDS: Atorvastatin Calcium 20 MG TABLET PO (20:18)
[2022-10-23] MEDS: Fluticasone Propionate 100 MCG BLST.W.DEV 1 PUFF INHALE (21:18)
[2022-10-24] VITALS (9 sets, daily range): BP systolic 136–138; BP diastolic 61–73; PULSE 69–89; RESP 16–20; TEMP 35.9–36.9; O2SAT 90–99
[2022-10-24] MEDS: Albuterol/Iprat 2.5/0.5MG 3 ML AMPUL.NEB INHALE ×5 (02:25→20:03)
[2022-10-24 06:31] LABS: MANUAL DIFF FLAG NO
[2022-10-24 06:44] LABS: Basophils Percent Auto 0.1 % (0-2); Eosinophils Percent Auto 0.1 % (0-4); Hematocrit 40.5 % (37.0-47.0); Hemoglobin 12.7 g/dl (12.0-16.0); Imm Gran Abs Auto 0.03 X10*3/uL (0.00-0.03); Imm Gran Pct Auto 0.4 % (0.0-0.4); Lymphocytes Percent Auto 13.5 % (20-40); Mean Corpuscular HGB Conc 31.4 g/dl (31.0-35.0); Mean Corpuscular Hemoglobin 26.5 pg (27.0-33.0); Mean Corpuscular Volume 84.4 fL (80.0-98.0); Mean Platelet Volume 11.8 fL (9.4-12.3); Monocytes Absolute Auto 0.8 X10*3/uL (0.1-1.2); Monocytes Percent Auto 10.8 % (2-11); Neutrophils Absolute Auto 5.4 x10*3/uL (2.0-8.3); Neutrophils Percent Auto 75.1 % (45-73); Platelet Count 168 X10*3/uL (160-400); Red Cell Distribution Width 17.2 % (11.0-16.0); White Blood Count 7.2 X10*3/uL (4.8-10.8)
[2022-10-24 07:16] LABS: Anion Gap 14 (12-20); Blood Urea Nitrogen 20 mg/dL (9-16); Calcium 8.6 mg/dL (8.4-10.2); Carbon Dioxide 35 mmol/L (22-29); Chloride 88 mmol/L (96-108); Creatinine Clr Calc Pharmacy 100.9; Estimated Glomerular Filt Rate > 60; Glucose Random 232 mg/dL (60-115); Potassium 3.7 mmol/L (3.3-5.1); Sodium 133 mmol/L (135-145)
[2022-10-24 07:36] LABS: Glucose, Whole Blood 215 mg/dL (60-115)
[2022-10-24] MEDS: Insulin Glargine,Hum.rec.anlog 100 UNIT/ML 10 ML VIAL 70 UNIT SUBCUT (07:57)
[2022-10-24] MEDS: Insulin Lispro 100 UNIT/ML 3 ML VIAL SUBCUT ×4 (07:58→20:48)
[2022-10-24] MEDS: Aspirin Enteric Coated 81 MG TABLET.DR PO (07:58)
[2022-10-24] MEDS: Furosemide 40 MG TABLET PO ×2 (07:58→16:58)
[2022-10-24] MEDS: predniSONE 20 MG TABLET PO (07:59)
[2022-10-24] MEDS: Apixaban 5 MG TABLET PO ×2 (07:59→20:48)
[2022-10-24] MEDS: lisinopriL 5 MG TABLET PO (07:59)
[2022-10-24] MEDS: 0.9 % Sodium Chloride Flush 3 ML SYRINGE IVFLUSH ×3 (07:59→20:48)
[2022-10-24] MEDS: Gabapentin 300 MG CAPSULE PO ×2 (07:59→20:48)
[2022-10-24] MEDS: Fluticasone Propionate 100 MCG BLST.W.DEV 1 PUFF INHALE ×2 (08:46→20:03)
[2022-10-24 11:27] LABS: Glucose, Whole Blood 257 mg/dL (60-115)
[2022-10-24] MEDS: Artificial Tears 15 ML DROPS 2 DROP EYE-BOTH (11:48)
--- NOTE | 2022-10-24 12:31 | P.DS_ITS ---
DS: Providers Provider Date of Service: 10/24/22 Date of admission: 10/23/22 02:18 Date of discharge: 10/24/22 Primary care physician: Toby Physician Attending physician on admission: Douglas Bhatt Attending physician on discharge: Juanjose Demarco Discharging clinician: Vesta Llanos DS: Diagnosis Discharge Diagnosis (1) Congestive heart failure: Status: Acute (2) Acute exacerbation of chronic obstructive pulmonary disease: Status: Acute DS: Summary Hospital Course Hospital Course: HPI on admission 10/23 by Miller Mondragon: Chief Complaint: Dyspnea This is a 72-year-old female with pertinent history of congestive heart failure with preserved ejection fraction, insulin-dependent diabetes mellitus, essential hypertension, chronic hypoxemic respiratory failure due to COPD with baseline 2 L supplemental oxygen paroxysmal atrial fibrillation on Eliquis who presents to the emergency department for evaluation of dyspnea.? Patient states she has been feeling short of breath for the last 2 days, worse with ambulation.? Patient was seen in the ER yesterday and was sent home with p.o. prednisone.? Patient states she continued to have wheezing and dyspnea which did not improve with her home inhaler.? Patient states she feels like there is fluid in her lungs.? Patient denies fever, chills, chest discomfort, palpitations, abdominal pain, changes in urinary or bowel habits.? She is compliant with home medications. In the emergency department, patient continued to be dyspneic after receiving IV Lasix and breathing treatments Hospital Course: Pt admitted for further management of acute CHF exacerbation and COPD exacerbation. Pt treated with IV diuretics, diuresed -2890ml, with good clinical improvement in symptoms and BNP level. She was transitioned back to her home dose lasix 40mg PO BID. Recent echocardiogram from 09/01 reviewed showing normal systolic LV function and preserved EF. Patient does have chronic venous stasis changes in BLE as well as probable lymphedema contributing to BLE edema. Her COPD exacerbation was managed with IV methylprednisolone in the ED and transitioned to PO prednisone 60mg. However, patient developed significant hyperglycemia related to steroid use and dose was reduced to 20mg given as wheezing had also significantly improved (CHF was also likely contributing to wheezing). Basal insulin dose increased and treated with 10 units regular insulin IV. Glucose levels returned to baseline, though did discuss better glucose management and compliance with diabetic diet. She will continue on current home diabetes regimen on discharge. No antibiotics indicated. No acute hypoxia. Vitals stable throughout admission. No leukocytosis. Does continue with chronic hyponatremia and hypochloremia which is likely related to ongoing diuretic use and is stable. Likely SIADH, urine osmolality 222. She will be discharged on prednisone 20mg for additional 3 days and can continue home inha lers. Advised to follow up soon with PCP. Face to face completed, VNA to follow up at home. Status at Discharge Functional status at discharge: independent ambulation Overall status at discharge: patient is back to baseline Time Spent with Patient Time attestation: Total time managing care of this patient today ____ minutes. Discharge coordination time: Greater than 30 minutes Quality: Safe Use of Opioids Does Pt have an Active Cancer Diagnosis on the Problem List?: No Quality: Stroke Does the patient have a stroke diagnosis?: No Physical Exam Vital Signs: Vital Signs: Last Vital Signs Temp 98.4 F 10/24/22 07:43 Pulse 86 10/24/22 11:40 Resp 18 10/24/22 11:40 BP 137/73 10/24/22 07:43 Pulse Ox 97 10/24/22 07:43 O2 Del Method Nasal Cannula 10/24/22 07:43 O2 Flow Rate 2.0 10/24/22 07:43 BMI result Body Mass Index 44.4 Constitutional - Awake and Alert, No apparent distress Eyes - PERRLA, EOMI Cardiovascular - S1S2, RRR, 1+ edema BLE Respiratory - Normal lung expansion, Normal respiratory effort, No respiratory distress, CTA bilaterally Gastrointestinal - NT / ND; +BS; No rebound or guarding Extremities - no calf tenderness bilaterally, no swelling Musculoskeletal - Normal inspection, normal ROM Skin - Warm/Dry Neurological - Alert & oriented x3 Psychological - Appropriate affect DS: Data Data Completed and Pending Completed studies during hospitalization [Text1]: Procedures Excision of Large Intestine, Via Natural or Artificial Opening Endoscopic, Diagnostic (09/20/20) Labs on day of discharge: Laboratory Results - last 24 hr 10/23/22 10/23/22 10/23/22 16:11 18:26 19:44 WBC RBC Hgb Hct MCV MCH MCHC RDW Plt Count MPV Immature Gran % (Auto) Neut % (Auto) Lymph % (Auto) [place] % (Auto) Eos % (Auto) Baso % (Auto) Lymph # (Auto) [place] # (Auto) Eos # (Auto) Baso # (Auto) Abs Immat Gran (auto) Absolute Neuts (auto) Absolute Nucleated RBC Nucleated RBC % (auto) Sodium Potassium Chloride Carbon Dioxide Anion Gap BUN Creatinine Estim Creat Clear Calc Estimated GFR POC Glucose 520 H* 383 H* 388 H* Random Glucose Calcium 10/24/22 10/24/22 10/24/22 05:26 05:26 07:16 WBC 7.2 RBC 4.80 Hgb 12.7 Hct 40.5 MCV 84.4 MCH 26.5 L MCHC 31.4 RDW 17.2 H Plt Count 168 MPV 11.8 Immature Gran % (Auto) 0.4 Neut % (Auto) 75.1 H Lymph % (Auto) 13.5 L [place] % (Auto) 10.8 Eos % (Auto) 0.1 Baso % (Auto) 0.1 Lymph # (Auto) 1.0 L [place] # (Auto) 0.8 Eos # (Auto) 0.0 Baso # (Auto) 0.0 Abs Immat Gran (auto) 0.03 Absolute Neuts (auto) 5.4 Absolute Nucleated RBC 0.000 Nucleated RBC % (auto) 0.0 Sodium 133 L Potassium 3.7 Chloride 88 L Carbon Dioxide 35 H Anion Gap 14 BUN 20 H Creatinine 0.69 Estim Creat Clear Calc 100.9 Estimated GFR > 60 POC Glucose 215 H Random Glucose 232 H Calcium 8.6 D 10/24/22 11:07 WBC RBC Hgb Hct MCV MCH MCHC RDW Plt Count MPV Immature Gran % (Auto) Neut % (Auto) Lymph % (Auto) [place] % (Auto) Eos % (Auto) Baso % (Auto) Lymph # (Auto) [place] # (Auto) Eos # (Auto) Baso # (Auto) Abs Immat Gran (auto) Absolute Neuts (auto) Absolute Nucleated RBC Nucleated RBC % (auto) Sodium Potassium Chloride Carbon Dioxide Anion Gap BUN Creatinine Estim Creat Clear Calc Estimated GFR POC Glucose 257 H Random Glucose Calcium Discharge Plan Discharge Anticipated Discharge Date/Time: 10/24/22 14:38 Patient Disposition: Home Health Service Discharge Diagnosis: CHF exacerbation, COPD exacerbation Referrals: ozzy [Other] - 1 Week Physician,Unknown J [Primary Care Provider] - 1 Week Discharge Medications: New prednisone 20 mg tablet 20 mg PO DAILY Qty: 3 0RF Continued gabapentin 300 mg capsule 300 mg PO BID lisinopril 5 mg tablet 5 mg PO DAILY albuterol sulfate [Proventil HFA] 90 mcg/actuation HFA aerosol inhaler 2 puff inhalation Q4-6H PRN (Reason: Wheezing) Eliquis 5 mg tablet 5 mg PO BID albuterol sulfate 2.5 mg /3 mL (0.083 %) solution for nebulization 2.5 mg inhalation Q4-6H PRN (Reason: shortness of breath or wheezing) Qty: 75 0RF Flovent Diskus 100 mcg/actuation blister with device 1 puff PO BID insulin glargine [Lantus Solostar U-100 Insulin] 100 unit/mL (3 mL) insulin pen 70 unit subcut DAILY aspirin 81 mg Tablet,Delayed Release (Dr/Ec) 81 mg PO DAILY metoprolol tartrate 50 mg tablet 50 mg PO BID furosemide 40 mg tablet 80 mg PO DAILY insulin lispro [Humalog KwikPen Insulin] 100 unit/mL insulin pen 0 sliding scale dose subcut QIDACHS Protocol: Insulin Correction Scale Less than or equal to 110 ---- Give (units): 0 111 to 150 Give (units): 0 151 to 200 Give (units): 2 201 to 250 Give (units): 4 251 to 300 Give (units): 6 301 to 350 Give (units): 8 Greater than 350 Give (units): 10 Call MD if Blood Glucose > : 350 Trulicity 0.75 mg/0.5 mL pen injector 0.75 mg subcut TU simvastatin 40 mg tablet 40 mg PO BEDTIME Discharge Orders: Discharge Order (Routine); Ordered 10/24/22 Ordered By: Vesta Llanos Diet: Diabetic diet Activity on Discharge: As tolerated Stand Alone Forms: Patient Portal Discharge page Care Plan Goals: see below Health Concerns: COPD CHF Hyperglycemia Plan of Treatment: Admitted for mild exacerbation of diastolic heart failure and mild COPD exacerbation -Initially treated with IV diuretics, transitioned to home dose oral lasix upon improvement in symptoms with good effect -COPD exacerbation initially treated with IV steroids and transitioned to oral with good effect. Continue prednisone 20mg every morning x3 days. Continue home inhalers and nebulizers -Your sugars significantly elevated following higher dose steroids but improved with insulin and reduction in steroid dose. Monitor glucose levels and continue using home dosage of insulins/trulicity. Follow strict diabetic diet and monitor portion sizes -There was no worsening of your hypoxia. Continue using 2L supplemental O2 as advised -Continue home meds -We are setting you up with a VNA service to further assist with your care including ari catheter management. Reach out to you urology group if you have run out of supplies. I did attempt to order you a pulse oximeter, but was unable to do so. Please follow up with your PCP. Assessment: As above
[2022-10-24 14:07] LABS: Osmolality Urine 222 mosm/kg (373-1093)
[2022-10-24 14:16] LABS: Creatinine Urine 22.78 mg/dL; Sodium Urine Random < 20.0 mmol/L
--- NOTE | 2022-10-24 14:38 | MHC.CM.PN ---
pt dcd today via amb at 8pm thats when dgter will be home ozzy notified of dc
--- NOTE | 2022-10-24 14:49 | MHC.CM.PN ---
chad frost notified of dc and will be home to meet amb ,amb booked for 8pm top accomadate chad
--- NOTE | 2022-10-24 14:50 | P.F2F_ITS ---
Service Date Service Date: 10/24/22 Encounter Date of encounter: 10/24/22 Reasons for Services Signs and symptoms assessed: weakness, neurogenic bladder with chronic rai catheter, non-weightbearing, CHF, COPD, ANGELO Reason for half-way: monitoring of unstable blood sugar, medication management, medication treatment and GI/ assessment Homebound: Leaving the home is medically contraindicated at this time without the asist of a device and/or another person due th the listed conditions above and below. Reason homebound: shortness of breath with minimal effort and non-weight bearing Certification: Based on the above findings, I certify that this patient is confined to the home and needs intermittent half-way care, physical therapy and/or speech therapy, or continues to need occupational therapy. The patient is under my care, and I have initiated the establishment of the plan of care. The patient will be followed by a physician who will periodically review the plan of care. Time Spent With Patient Time: Total time managing care of this patient today ____ minutes.
[2022-10-24 16:18] LABS: Glucose, Whole Blood 282 mg/dL (60-115)
[2022-10-24 20:06] LABS: Glucose, Whole Blood 252 mg/dL (60-115)
--- NOTE | 2022-10-24 20:30 | HO.PM.IMPN ---
Subjective Subjective Date of Service: 10/24/22 <DEANN Purcell - Last Filed: 10/24/22 20:41> 10/25/22 <Juanjose Demarco MD - Last Filed: 10/25/22 08:20> Interval History: Seen in follow up for: CHF exacerbation, COPD exacerbation Interval history: Euvolemic appearing, no acute hypoxia. Clinically improved. Plan to discharge home with oral prednisone 20mg. However, after discharge plans discussed, pt seems quite anxious and unsure about going home. Removing oxygen and reporting sob. Requesting prn albuterol with increased frequency and reportedly vomited directly into plastic cup. Output not appearing consistent with vomitus. <DEANN Purcell - Last Filed: 10/24/22 20:41> Review of Systems Review of Systems: Yes all other systems are reviewed and are negative <DEANN Purcell - Last Filed: 10/24/22 20:41> Physical Exam Vital Signs: Vital Signs: Last Vital Signs Temp 97.8 F 10/24/22 19:24 Pulse 86 10/24/22 20:04 Resp 20 10/24/22 20:04 BP 138/62 10/24/22 15:13 Pulse Ox 93 10/24/22 19:24 O2 Del Method Nasal Cannula 10/24/22 19:24 O2 Flow Rate 2 10/24/22 19:24 BMI result Body Mass Index 44.4 <DEANN Purcell - Last Filed: 10/24/22 20:41> Constitutional - Awake and Alert, No apparent distress Eyes - PERRLA, EOMI Cardiovascular - S1S2, RRR, 1+ edema BLE Respiratory - Normal lung expansion, Normal respiratory effort, No respiratory distress, CTA bilaterally Gastrointestinal - NT / ND; +BS; No rebound or guarding Extremities - no calf tenderness bilaterally, chronic venous stasis dermatitis Skin - Warm/Dry Neurological - Alert & oriented x3 <DEANN Purcell - Last Filed: 10/24/22 20:41> Objective Data Active Medications Acetaminophen (Acetaminophen 325 Mg Tablet) 650 mg PO Q6H PRN PRN Reason: Pain, Mild (Pain Scale 1-3) Albuterol Sulfate (Albuterol Sulfate 90 Mcg 8 Gm Inhaler) 2 puff INHALE Q2H PRN PRN Reason: Wheezing Albuterol/Ipratropium (Albuterol/Iprat 2.5/0.5mg 3 Ml Ampul.Neb) 3 ml INHALE RQ4H WHILE AWAKE [facility] Last Admin: 10/24/22 20:03 Dose: 3 ml Documented By: PAULA Albuterol/Ipratropium (Albuterol/Iprat 2.5/0.5mg 3 Ml Ampul.Neb) 3 ml INHALE Q4H PRN PRN Reason: Wheezing Last Admin: 10/24/22 02:25 Dose: 3 ml Documented By: VERO Apixaban (Apixaban 5 Mg Tablet) 5 mg PO BID [facility] Last Admin: 10/24/22 07:59 Dose: 5 mg Documented By: KARIS Artificial Tears (Artificial Tears 15 Ml Drops) 2 drop EYE-BOTH Q4H PRN PRN Reason: Dry Eyes Last Admin: 10/24/22 11:48 Dose: 2 drop Documented By: KARIS Aspirin (Aspirin Enteric Coated 81 Mg Tablet.Dr) 81 mg PO DAILY [facility] Last Admin: 10/24/22 07:58 Dose: 81 mg Documented By: KARIS Atorvastatin Calcium (Atorvastatin Calcium 20 Mg Tablet) 20 mg PO BEDTIME [facility] Last Admin: 10/23/22 20:18 Dose: 20 mg Documented By: JEREMIAH Fluticasone Propionate (Fluticasone Propionate 100 Mcg Blst.W.Dev) 1 puff INHALE RBID [facility] Last Admin: 10/24/22 20:03 Dose: 1 puff Documented By: PAULA Furosemide (Furosemide 40 Mg Tablet) 40 mg PO BID@0900,1800 [facility]; Protocol Last Admin: 10/24/22 16:58 Dose: 40 mg Documented By: KARIS Gabapentin (Gabapentin 300 Mg Capsule) 300 mg PO BID [facility] Last Admin: 10/24/22 07:59 Dose: 300 mg Documented By: KARIS Glucose (Glucose Gel 15 Gm Gel..Gram.) 15 gm PO Q15M PRN; Protocol PRN Reason: per Hypoglycemia Standing Ord. Dextrose (D10) 250 mls @ 750 mls/hr IV Q15M PRN; Protocol PRN Reason: per Hypoglycemia Standing Ord. Insulin Glargine (Insulin Glargine,Hum.Rec.Anlog 100 Unit/Ml 10 Ml Vial) 70 unit SUBCUT DAILY [facility] Last Admin: 10/24/22 07:57 Dose: 70 unit Documented By: KARIS Insulin Human Lispro (Insulin Lispro 100 Unit/Ml 3 Ml Vial) 0 unit SUBCUT QIDACHS [facility]; Protocol Last Admin: 10/24/22 16:58 Dose: 8 unit Documented By: KARIS Lisinopril (Lisinopril 5 Mg Tablet) 5 mg PO DAILY [facility]; Protocol Last Admin: 10/24/22 07:59 Dose: 5 mg Documented By: KARIS Melatonin (Melatonin 3 Mg Tablet) 6 mg PO BEDTIME PRN PRN Reason: Insomnia Ondansetron HCl (Ondansetron Hcl 4 Mg/2 Ml Vial) 4 mg IVPUSH Q8H PRN PRN Reason: Nausea and Vomiting Pharmacy Consult (Consult Rx Perform Med Rec) 1 each MISCELLANE ONCE PRN PRN Reason: Consult order Prednisone (Prednisone 20 Mg Tablet) 20 mg PO DAILY [facility] Last Admin: 10/24/22 07:59 Dose: 20 mg Documented By: KARIS Sodium Chloride (0.9 % Sodium Chloride Flush 3 Ml Syringe) 3 ml IVFLUSH QSHIFT [facility] Last Admin: 10/24/22 17:01 Dose: 3 ml Documented By: KARIS <DEANN Purcell - Last Filed: 10/24/22 20:41> Labs CBC & Chem 7: 10/24/22 05:26 10/24/22 05:26 <DEANN Purcell - Last Filed: 10/24/22 20:41> Labs: Laboratory Results - last 24 hr 10/24/22 10/24/22 10/24/22 05:26 05:26 07:16 MCV 84.4 MCH 26.5 L MCHC 31.4 RDW 17.2 H Plt Count 168 MPV 11.8 Immature Gran % (Auto) 0.4 Neut % (Auto) 75.1 H Lymph % (Auto) 13.5 L [place] % (Auto) 10.8 Eos % (Auto) 0.1 Baso % (Auto) 0.1 Lymph # (Auto) 1.0 L [place] # (Auto) 0.8 Eos # (Auto) 0.0 Baso # (Auto) 0.0 Abs Immat Gran (auto) 0.03 Absolute Neuts (auto) 5.4 Absolute Nucleated RBC 0.000 Nucleated RBC % (auto) 0.0 Anion Gap 14 Estim Creat Clear Calc 100.9 Estimated GFR > 60 POC Glucose 215 H Random Glucose 232 H Calcium 8.6 D Urine Osmolality Ur Random Sodium Urine Creatinine 10/24/22 10/24/22 10/24/22 11:07 13:35 13:35 MCV MCH MCHC RDW Plt Count MPV Immature Gran % (Auto) Neut % (Auto) Lymph % (Auto) [place] % (Auto) Eos % (Auto) Baso % (Auto) Lymph # (Auto) [place] # (Auto) Eos # (Auto) Baso # (Auto) Abs Immat Gran (auto) Absolute Neuts (auto) Absolute Nucleated RBC Nucleated RBC % (auto) Anion Gap Estim Creat Clear Calc Estimated GFR POC Glucose 257 H Random Glucose Calcium Urine Osmolality 222 L Ur Random Sodium < 20.0 Urine Creatinine 22.78 10/24/22 10/24/22 16:01 19:30 MCV MCH MCHC RDW Plt Count MPV Immature Gran % (Auto) Neut % (Auto) Lymph % (Auto) [place] % (Auto) Eos % (Auto) Baso % (Auto) Lymph # (Auto) [place] # (Auto) Eos # (Auto) Baso # (Auto) Abs Immat Gran (auto) Absolute Neuts (auto) Absolute Nucleated RBC Nucleated RBC % (auto) Anion Gap Estim Creat Clear Calc Estimated GFR POC Glucose 282 H 252 H Random Glucose Calcium Urine Osmolality Ur Random Sodium Urine Creatinine <DEANN Purcell - Last Filed: 10/24/22 20:41> Microbiology Microbiology Results: Microbiology 10/23/22 Unknown Urine Culture - Final Urine Catheterized - Rai Catheter <DEANN Purcell - Last Filed: 10/24/22 20:41> Assessment and Plan (1) Congestive heart failure: Status: Acute <DEANN Purcell - Last Filed: 10/24/22 20:41> (2) Acute exacerbation of chronic obstructive pulmonary disease: Status: Acute <DEANN Purcell - Last Filed: 10/24/22 20:41> Assessment and Plan: This is a 72-year-old female with pertinent history of congestive heart failure with preserved ejection fraction, insulin-dependent diabetes mellitus, essential hypertension, chronic hypoxemic respiratory failure due to COPD with baseline 2 L supplemental oxygen, paroxysmal atrial fibrillation on Eliquis admitted for acute CHF exacerbation and COPD exacerbation #Acute decompensation of diastolic heart failure -Euvolemic appearing -Lungs clear, 1+ edema BLE, likely chronic -Continue home lasix -Strict I&O -Cardiac diet -Echo 09/01 with normal LV systolic function EF 60-65%, severe LVH, impaired relaxation filling pattern and mild-moderate , severe mitral calcification? #Chronic hypoxemic respiratory failure due to COPD -reporting sob and removing supplemental O2 -Weaned from high flow prior to admission. Continue baseline supplemental O2 to maintain oximetry 92% -Encourage compliance with O2 -Uses 2L at baseline #Acute COPD exacerbation -Lungs CTA -Continue prednisone 20mg -Duonebs q4h while awake -albuterol q2h prn -continue home inhalers -Abx not indicated #Essential hypertension- reasonably controlled -Continue home antihypertensives #Paroxysmal atrial fibrillation- rate controlled -continue eliquis and rate control medications #Insulin-dependent diabetes mellitus with hyperglycemia -Dose adjusted lantus -Continue humalog on sliding scale -Corticosteroid associated hyperglycemia improved -POC glucose -Diabetic diet #Chronic hypotonic neurogenic bladder -continue chronic rai #Asymptomatic bacteriuria -UC pending, Patient without symptoms.? Defer antibiotics #Morbid obesity with BMI >44 related to excess calories -Counseled regarding losing weight #History of for ERICKA -Not using CPAP at home.? Will need outpatient sleep study DVT Prophylaxis: Eliquis 5mg bid Full code Pt requires ongoing inpt stay for management of copd exacerbation, pt still reporting sob. Will continue plan as above and observe overnight with plan for discharge home with VNA tomorrow. <DEANN Purcell - Last Filed: 10/24/22 20:41> Time Spent With Patient Time: Total time managing care of this patient today ____ minutes. <DEANN Purcell - Last Filed: 10/24/22 20:41> Quality Stroke Does the patient have a stroke diagnosis?: No <DEANN Purcell - Last Filed: 10/24/22 20:41> VTE Prior VTE?: No <DEANN Purcell - Last Filed: 10/24/22 20:41> VTE Risk Level:: Medical - moderate - high <DEANN Purcell - Last Filed: 10/24/22 20:41> VTE Device Contraindication: Treatment Not Indicated <DEANN Purcell - Last Filed: 10/24/22 20:41> VTE Drug Contraindication: N/A - Med Ordered <DEANN Purcell - Last Filed: 10/24/22 20:41>
[2022-10-24] MEDS: Melatonin 3 MG TABLET 6 MG PO (20:48)
[2022-10-24] MEDS: Atorvastatin Calcium 20 MG TABLET PO (20:48)
[2022-10-25] VITALS (7 sets, daily range): BP systolic 156–160; BP diastolic 71–74; PULSE 70–98; RESP 18–24; TEMP 36.2–36.4; O2SAT 87–100
[2022-10-25] MEDS: Albuterol/Iprat 2.5/0.5MG 3 ML AMPUL.NEB INHALE ×4 (02:30→15:23)
[2022-10-25 07:31] LABS: Glucose, Whole Blood 92 mg/dL (60-115)
[2022-10-25] MEDS: Fluticasone Propionate 100 MCG BLST.W.DEV 1 PUFF INHALE (07:47)
[2022-10-25] MEDS: Aspirin Enteric Coated 81 MG TABLET.DR PO (08:12)
[2022-10-25] MEDS: Apixaban 5 MG TABLET PO (08:12)
[2022-10-25] MEDS: Furosemide 40 MG TABLET PO ×2 (08:12→16:47)
[2022-10-25] MEDS: predniSONE 20 MG TABLET PO (08:12)
[2022-10-25] MEDS: lisinopriL 5 MG TABLET PO (08:12)
[2022-10-25] MEDS: Gabapentin 300 MG CAPSULE PO (08:12)
[2022-10-25] MEDS: 0.9 % Sodium Chloride Flush 3 ML SYRINGE IVFLUSH (08:13)
[2022-10-25] MEDS: Insulin Glargine,Hum.rec.anlog 100 UNIT/ML 10 ML VIAL 70 UNIT SUBCUT (08:13)
--- NOTE | 2022-10-25 08:20 | P.PNIM_ITS ---
Subjective Subjective Date of Service: 10/25/22 Interval History: Seen in follow up for: CHF exacerbation, COPD exacerbation Interval history:Marcus for dc yesterday but developped panic attack, no respiratory issues overnight or this morning Physical Exam Vital Signs: Vital Signs: Last Vital Signs Temp 97.2 F 10/25/22 07:35 Pulse 70 10/25/22 07:47 Resp 18 10/25/22 07:47 BP 159/74 H 10/25/22 07:35 Pulse Ox 100 10/25/22 07:35 O2 Del Method Nasal Cannula 10/25/22 07:35 O2 Flow Rate 2.0 10/25/22 07:35 BMI result Body Mass Index 44.4 Constitutional - Awake and Alert, No apparent distress, Alert & oriented x3 Eyes - PERRLA, EOMI Cardiovascular - S1S2, RRR, 1+ edema BLE Respiratory - Normal lung expansion, Normal respiratory effort, No respiratory distress, CTA bilaterally Gastrointestinal - NT / ND; +BS; No rebound or guarding Extremities - no calf tenderness bilaterally, chronic venous stasis dermatitis Skin - Warm/Dry Neurological - NF Objective Data Active Medications Acetaminophen (Acetaminophen 325 Mg Tablet) 650 mg PO Q6H PRN PRN Reason: Pain, Mild (Pain Scale 1-3) Albuterol Sulfate (Albuterol Sulfate 90 Mcg 8 Gm Inhaler) 2 puff INHALE Q2H PRN PRN Reason: Wheezing Albuterol/Ipratropium (Albuterol/Iprat 2.5/0.5mg 3 Ml Ampul.Neb) 3 ml INHALE RQ4H WHILE AWAKE [facility] Last Admin: 10/25/22 07:47 Dose: 3 ml Documented By: OSCAR Albuterol/Ipratropium (Albuterol/Iprat 2.5/0.5mg 3 Ml Ampul.Neb) 3 ml INHALE Q4H PRN PRN Reason: Wheezing Last Admin: 10/24/22 02:25 Dose: 3 ml Documented By: VERO Apixaban (Apixaban 5 Mg Tablet) 5 mg PO BID [facility] Last Admin: 10/25/22 08:12 Dose: 5 mg Documented By: SHAQ Artificial Tears (Artificial Tears 15 Ml Drops) 2 drop EYE-BOTH Q4H PRN PRN Reason: Dry Eyes Last Admin: 10/24/22 11:48 Dose: 2 drop Documented By: KARIS Aspirin (Aspirin Enteric Coated 81 Mg Tablet.) 81 mg PO DAILY [facility] Last Admin: 10/25/22 08:12 Dose: 81 mg Documented By: SHAQ Atorvastatin Calcium (Atorvastatin Calcium 20 Mg Tablet) 20 mg PO BEDTIME [facility] Last Admin: 10/24/22 20:48 Dose: 20 mg Documented By: JEREMIAH Fluticasone Propionate (Fluticasone Propionate 100 Mcg Blst.W.Dev) 1 puff INHALE RBID [facility] Last Admin: 10/25/22 07:47 Dose: 1 puff Documented By: OSCAR Furosemide (Furosemide 40 Mg Tablet) 40 mg PO BID@0900,1800 [facility]; Protocol Last Admin: 10/25/22 08:12 Dose: 40 mg Documented By: SHAQ Gabapentin (Gabapentin 300 Mg Capsule) 300 mg PO BID [facility] Last Admin: 10/25/22 08:12 Dose: 300 mg Documented By: SHAQ Glucose (Glucose Gel 15 Gm Gel..Gram.) 15 gm PO Q15M PRN; Protocol PRN Reason: per Hypoglycemia Standing Ord. Guaifenesin/Dextromethorphan (Guaifenesin Dm 100/10/5 Ml 5 Ml Syrup) 5 ml PO Q4H PRN PRN Reason: cough Dextrose (D10) 250 mls @ 750 mls/hr IV Q15M PRN; Protocol PRN Reason: per Hypoglycemia Standing Ord. Insulin Glargine (Insulin Glargine,Hum.Rec.Anlog 100 Unit/Ml 10 Ml Vial) 70 unit SUBCUT DAILY [facility] Last Admin: 10/25/22 08:13 Dose: 70 unit Documented By: SHAQ Insulin Human Lispro (Insulin Lispro 100 Unit/Ml 3 Ml Vial) 0 unit SUBCUT QIDACHS [facility]; Protocol Last Admin: 10/25/22 08:14 Dose: Not Given Documented By: SHAQ Non-Admin Reason: No Insulin Coverage Lisinopril (Lisinopril 5 Mg Tablet) 5 mg PO DAILY [facility]; Protocol Last Admin: 10/25/22 08:12 Dose: 5 mg Documented By: SHAQ Melatonin (Melatonin 3 Mg Tablet) 6 mg PO BEDTIME PRN PRN Reason: Insomnia Last Admin: 10/24/22 20:48 Dose: 6 mg Documented By: JEREMIAH Ondansetron HCl (Ondansetron Hcl 4 Mg/2 Ml Vial) 4 mg IVPUSH Q8H PRN PRN Reason: Nausea and Vomiting Pharmacy Consult (Consult Rx Perform Med Rec) 1 each MISCELLANE ONCE PRN PRN Reason: Consult order Prednisone (Prednisone 20 Mg Tablet) 20 mg PO DAILY [facility] Last Admin: 10/25/22 08:12 Dose: 20 mg Documented By: SHAQ Sodium Chloride (0.9 % Sodium Chloride Flush 3 Ml Syringe) 3 ml IVFLUSH QSHIFT [facility] Last Admin: 10/25/22 08:13 Dose: 3 ml Documented By: SHAQ Labs 10/24/22 05:26 10/24/22 05:26 Labs: Laboratory Results - last 24 hr 10/24/22 10/24/22 10/24/22 11:07 13:35 13:35 POC Glucose 257 H Urine Osmolality 222 L Ur Random Sodium < 20.0 Urine Creatinine 22.78 10/24/22 10/24/22 10/25/22 16:01 19:30 07:11 POC Glucose 282 H 252 H 92 Urine Osmolality Ur Random Sodium Urine Creatinine Microbiology Microbiology Results: Microbiology 10/23/22 Unknown Urine Culture - Final Urine Catheterized - Rai Catheter Assessment and Plan (1) Congestive heart failure: Status: Acute (2) Acute exacerbation of chronic obstructive pulmonary disease: Status: Acute Plan This is a 72-year-old female with pertinent history of congestive heart failure with preserved ejection fraction, insulin-dependent diabetes mellitus, essential hypertension, chronic hypoxemic respiratory failure due to COPD with baseline 2 L supplemental oxygen, paroxysmal atrial fibrillation on Eliquis admitted for acute CHF exacerbation and COPD exacerbation essentially no issue overnight or this morning and will proceed to discharge as planned yesterday #Acute decompensation of diastolic heart failure -Euvolemic appearing -Lungs clear, 1+ edema BLE, likely chronic -Continue home lasix -Strict I&O -Cardiac diet -Echo 09/01 with normal LV systolic function EF 60-65%, severe LVH, impaired relaxation filling pattern and mild-moderate , severe mitral calcification? #Chronic hypoxemic respiratory failure due to COPD -reporting sob and removing supplemental O2 -Weaned from high flow prior to admission. Continue baseline supplemental O2 to maintain oximetry 92% -Encourage compliance with O2 -Uses 2L at baseline #Acute COPD exacerbation -Lungs CTA -Continue prednisone 20mg -Duonebs q4h while awake -albuterol q2h prn -continue home inhalers -Abx not indicated #Essential hypertension- reasonably controlled -Continue home antihypertensives #Paroxysmal atrial fibrillation- rate controlled -continue eliquis and rate control medications #Insulin-dependent diabetes mellitus with hyperglycemia -Dose adjusted lantus -Continue humalog on sliding scale -Corticosteroid associated hyperglycemia improved -POC glucose -Diabetic diet #Chronic hypotonic neurogenic bladder -continue chronic rai #Asymptomatic bacteriuria -UC pending, Patient without symptoms.? Defer antibiotics #Morbid obesity with BMI >44 related to excess calories -Counseled regarding losing weight #History of for ERICKA -Not using CPAP at home.? Will need outpatient sleep study DVT Prophylaxis: Eliquis 5mg bid Full code Pt requires ongoing inpt stay for management of copd exacerbation, pt still reporting sob. Will continue plan as above and observe overnight with plan for discharge home with VNA tomorrow. Time Spent With Patient Time: Total time managing care of this patient today ____ minutes. Quality Stroke Does the patient have a stroke diagnosis?: No VTE Prior VTE?: No VTE Risk Level:: Medical - moderate - high VTE Device Contraindication: Treatment Not Indicated VTE Drug Contraindication: N/A - Med Ordered
--- NOTE | 2022-10-25 09:25 | MHC.CM.PN ---
DP: PT HAS BEEN MEDICALLY CLEARED FOR DC HOME. BLS TRANSPORT BOOKED FOR 5:30 PM (TO ACCOMMODATE DAUGHTER) VIA [facility]. PHOEBE PETITA UPDATED ON DC.
[2022-10-25 11:21] LABS: Glucose, Whole Blood 216 mg/dL (60-115)
[2022-10-25] MEDS: Insulin Lispro 100 UNIT/ML 3 ML VIAL SUBCUT ×2 (11:47→16:43)
[2022-10-25] MEDS: Acetaminophen 325 MG TABLET 650 MG PO (15:10)
[2022-10-25] MEDS: guaiFENesin DM 100/10/5 ML 5 ML SYRUP PO (15:11)
[2022-10-25 16:25] LABS: Glucose, Whole Blood 326 mg/dL (60-115)
--- NOTE | 2022-10-25 17:14 | PC.NURSE ---
Discharge paper work reviewed with patient. She states understnading and plan late afternoon. Last hour patient coughing and stating I don't want to . Re-assurance given that resident isn't actively passing. Re-enforced resident has chronic debilitating illness. She states understanding. Very anxious about going home, reassurance given, resident calmed down.
--- NOTE | 2022-10-25 17:34 | PC.NURSE ---
Spoke with Dgt, explained condition, she agrees and understands, accepting of discharge and will follow up with PCP and VNA
--- NOTE | 2022-10-25 17:53 | PC.NURSE ---
Dgt asked for a simple mask to go home with, [facility] [place] does not carry simple masks per RT.
== END 2022-10-25 18:06 | disposition home or self-care (01) | DRG 291 ==
LOC: HO.ED 10-23 01:33 → HO.EDOVER 10-23 07:19 → HO.S3 10-23 08:24 → HO.EDOVER 11-01 08:08
PROVIDERS: Physician Assistant; Admitting Provider Student in an Organized Health Care Education/Training Program; Emergency Provider Emergency Medicine Emergency Medical Services; PCP Family Medicine; Visit Provider Internal Medicine
DX: I11.0 Hypertensive heart disease with heart failure (principal); I50.33 Acute on chronic diastolic (congestive) heart failure; J44.1 Chronic obstructive pulmonary disease with (acute) exacerbation; J96.11 Chronic respiratory failure with hypoxia; Z68.41 Body mass index [BMI] 40.0-44.9, adult; E11.65 Type 2 diabetes mellitus with hyperglycemia; G47.33 Obstructive sleep apnea (adult) (pediatric); Z20.822 Contact with and (suspected) exposure to COVID-19; I48.0 Paroxysmal atrial fibrillation; F41.0 Panic disorder [episodic paroxysmal anxiety]; E66.01 Morbid (severe) obesity due to excess calories; N31.9 Neuromuscular dysfunction of bladder, unspecified; Z79.4 Long term (current) use of insulin; Z79.01 Long term (current) use of anticoagulants; Z79.899 Other long term (current) drug therapy
CPT/HCPCS: 36415; 71045; 71046; 80048; 80053; 81001; 82803; 82947; 83735; 83880; 83935; 84300; 84484; 85025; 87086; 87635; 93005; 94640; 96374; 96375; 99221; 99284; 99285; C1758; J1940; J2405; J2930

== ENCOUNTER 2022-12-18 12:17 | Emergency (ER) | payer MEDICARE, MEDICAID, SELFPAY ==
[2022-12-18 12:33] VITALS: BP 124/70; BP 130/52; PULSE 72; PULSE 89; RESP 18; TEMP 36.5; O2SAT 95; O2SAT 96; BMI 42.3
[2022-12-18] MEDS: Diphth,Pertus(ACell),Tet Adult 0.5 ML SYRINGE IM (12:43)
[2022-12-18] MEDS: Lidocaine HCl 1 % MPF 5 ML VIAL SUBCUT ×2 (12:51)
--- NOTE | 2022-12-18 13:32 | ED.WOUNDLAC ---
HPI - Wound/Laceration General Chief Complaint: Wound/Laceration Stated Complaint: Lac on R thumb from elevator per EMS Time Seen by Provider: 12/18/22 12:33 History of Present Illness HPI narrative: Patient complains of right thumb laceration when she cut it on a piece of metal no other injury no other complaint denies any numbness weakness or tingling Related Data Home Medications Medication Instructions Recorded Confirmed albuterol sulfate 90 mcg/actuation 2 puff inhalation Q4-6H PRN 01/23/21 10/23/22 aerosol inhaler (Proventil HFA) Wheezing apixaban 5 mg tablet (Eliquis) 5 mg PO BID 01/23/21 10/23/22 gabapentin 300 mg capsule 300 mg PO BID 01/23/21 10/23/22 lisinopril 5 mg tablet 5 mg PO DAILY 01/23/21 10/23/22 aspirin 81 mg tablet,delayed 81 mg PO DAILY 10/24/21 10/23/22 release fluticasone propionate 100 1 puff PO BID 10/24/21 10/23/22 mcg/actuation blister powder for inhalation (Flovent Diskus) insulin glargine 100 unit/mL (3 70 unit subcut DAILY 10/24/21 10/23/22 mL) subcutaneous pen (Lantus Solostar U-100 Insulin) furosemide 40 mg tablet 80 mg PO DAILY 03/09/22 10/23/22 metoprolol tartrate 50 mg tablet 50 mg PO BID 03/09/22 10/23/22 dulaglutide 0.75 mg/0.5 mL 0.75 mg subcut TU 10/23/22 10/23/22 subcutaneous pen injector (Trulicity) insulin lispro 100 unit/mL 0 sliding scale dose subcut QIDACHS 10/23/22 10/23/22 subcutaneous pen (Humalog KwikPen (U-100) Insulin) simvastatin 40 mg tablet 40 mg PO BEDTIME 10/23/22 10/23/22 Previous Rx's Medication Instructions Recorded albuterol sulfate 2.5 mg/3 mL 2.5 mg (3 mL) inhalation Q4-6H PRN 07/25/22 (0.083 %) solution for nebulization shortness of breath or wheezing #75 mL prednisone 20 mg tablet 20 mg PO DAILY #3 tabs 10/24/22 Allergies Allergy/AdvReac Type Severity Reaction Status Date / Time silver sulfadiazine Allergy Unknown UNK Verified 10/23/22 01:51 [From [id number]] [facility] Past Medical History Source: nursing notes reviewed Medical History Aortic stenosis Bacteriuria Chronic heart failure with preserved ejection fraction (HFpEF) Chronic hypoxemic respiratory failure Chronic indwelling Molina catheter Chronic UTI Chronic UTI Congestive heart failure COPD (chronic obstructive pulmonary disease) Diabetes Diarrhea Glaucoma H/O: CVA (cerebrovascular accident) Hypertension Hypotonic neurogenic bladder Non-rheumatic aortic stenosis Obesity Obstructive sleep apnea Osteoarthritis Paroxysmal atrial fibrillation Severe sepsis UTI (urinary tract infection) Surgical History H/O adenoidectomy H/O enucleation of left eyeball History of tonsillectomy Family History Family History Father No problems noted. Mother No problems noted. Social History Social History Household Members: None Housing: Apartment Do you presently have visiting nurse or other home services: Yes (care givers) Unable to assess alcohol history related to: Unknown Alcohol intake: never Patient Tobacco Use Status: Never used Tobacco Second Hand Smoke Exposure: No Advance Directives: Yes Advance Directives on File: Yes Advance Directives Date on File: 07/09/20 service: No Current occupational status: disabled Physical Exam Vital Signs: Vital Signs: Last Vital Signs Temp 97.7 F 12/18/22 12:33 Pulse 72 12/18/22 12:33 Resp 18 12/18/22 12:33 BP 130/52 L 12/18/22 12:33 Pulse Ox 95 12/18/22 12:33 O2 Del Method Room Air 12/18/22 12:33 BMI result Body Mass Index 42.3 General appearance no distress Head is normocephalic atraumatic Neck is supple Respiratory no distress Extremities range of motion x4 Right thumb exam the distal phalanx has a 1 cm laceration subcutaneous bleeding, neurovascular intact distal, all tendon function is normal Course Course Course Narrative: Procedure note for right thumb laceration Digital block is placed, the wound is copiously irrigated with normal saline For 5.0 nylon sutures are placed with bleeding controlled and wound well approximated Dressing is applied Well-appearing patient is discharged Medications Administered Discontinued Medications Generic Name Dose Route Start Last Admin Trade Name Freq PRN Reason Stop Dose Admin Diphtheria/Tetanus/Acell Pertussis 0.5 ml 12/18/22 12:38 12/18/22 12:43 Diphth,Pertus(Acell),Tet Adult 0.5 Ml Syringe IM 12/18/22 12:39 0.5 ml .ONCE ONE Administration Lidocaine HCl 5 ml 12/18/22 12:38 12/18/22 12:51 Lidocaine Hcl 1 % Mpf 5 Ml Vial SUBCUT 12/18/22 12:39 5 ml ONCE ONE Administration Lidocaine HCl 5 ml 12/18/22 12:38 12/18/22 12:51 Lidocaine Hcl 1 % Mpf 5 Ml Vial SUBCUT 12/18/22 12:39 5 ml ONCE ONE Administration Discharge Plan Discharge Clinical Impression: Laceration Patient Disposition: Home, Self-Care Additional Instructions: Stitches need to be removed in 7-10 days Clean twice a day with soap and water gently Return any time for redness swelling discharge from wound any signs of infection You got a tetanus shot today Prescriptions: No Action gabapentin 300 mg capsule 300 mg PO BID lisinopril 5 mg tablet 5 mg PO DAILY albuterol sulfate [Proventil HFA] 90 mcg/actuation HFA aerosol inhaler 2 puff inhalation Q4-6H PRN (Reason: Wheezing) Eliquis 5 mg tablet 5 mg PO BID albuterol sulfate 2.5 mg /3 mL (0.083 %) solution for nebulization 2.5 mg inhalation Q4-6H PRN (Reason: shortness of breath or wheezing) Qty: 75 0RF Flovent Diskus 100 mcg/actuation blister with device 1 puff PO BID insulin glargine [Lantus Solostar U-100 Insulin] 100 unit/mL (3 mL) insulin pen 70 unit subcut DAILY aspirin 81 mg Tablet,Delayed Release (Dr/Ec) 81 mg PO DAILY metoprolol tartrate 50 mg tablet 50 mg PO BID furosemide 40 mg tablet 80 mg PO DAILY insulin lispro [Humalog KwikPen Insulin] 100 unit/mL insulin pen 0 sliding scale dose subcut QIDACHS Protocol: Insulin Correction Scale Less than or equal to 110 ---- Give (units): 0 111 to 150 Give (units): 0 151 to 200 Give (units): 2 201 to 250 Give (units): 4 251 to 300 Give (units): 6 301 to 350 Give (units): 8 Greater than 350 Give (units): 10 Call MD if Blood Glucose > : 350 Trulicity 0.75 mg/0.5 mL pen injector 0.75 mg subcut TU simvastatin 40 mg tablet 40 mg PO BEDTIME prednisone 20 mg tablet 20 mg PO DAILY Qty: 3 0RF
[2022-12-18 14:30] VITALS: BP 135/52; PULSE 75; RESP 18; O2SAT 95
== END 2022-12-18 14:33 | disposition home or self-care (01) ==
PROVIDERS: Emergency Provider Student in an Organized Health Care Education/Training Program; PCP Family Medicine
DX: S61.011A Laceration without foreign body of right thumb without damage to nail, initial encounter (principal); S60.311A Abrasion of right thumb, initial encounter; W26.9XXA Contact with unspecified sharp object(s), initial encounter; Y93.9 Activity, unspecified; Y92.9 Unspecified place or not applicable; Y99.9 Unspecified external cause status; Z23 Encounter for immunization
CPT/HCPCS: 12001; 12011; 90471; 90715; 99284

== ENCOUNTER 2022-12-26 23:34 | Emergency (ER) | payer MEDICARE, MEDICAID, SELFPAY ==
--- NOTE | ~2022-12-26 | XR_ITS ---
EXAMINATION: XR CHEST CLINICAL INFORMATION: SOB. COMPARISON: Chest 10/22/2022 TECHNIQUE: Frontal view of the chest was obtained. FINDINGS: There is increased bilateral parahilar vascular markings and augment likely pulmonary venous hypertension or pulmonary edema. The lungs are somewhat expanded without acute consolidation. There is no suspicion for pleural effusion. No gross bony abnormality. XR/XR chest 1V IMPRESSION: Suspect pulmonary venous hypertension or pulmonary edema. No pleural effusion seen. The findings are similar to 10/22/2022.
[2022-12-26 23:47] VITALS: BP 149/88; PULSE 70; O2SAT 96
[2022-12-26 23:53] VITALS: BP 147/57; PULSE 69; RESP 18; O2SAT 93; BMI 42.3
[2022-12-27 00:06] VITALS: BP 147/57; PULSE 69; RESP 18; O2SAT 93
--- NOTE | 2022-12-27 00:06 | ECG_ITS ---
Test Reason : DYSPENIA Blood Pressure : / mmHG Vent. Rate : 068 BPM Atrial Rate : 068 BPM P-R Int : 222 ms QRS Dur : 104 ms QT Int : 424 ms P-R-T Axes : 033 -10 073 degrees QTc Int : 450 ms Sinus rhythm with 1st degree A-V block Moderate voltage criteria for LVH, may be normal variant ( R in aVL , [place] product ) Cannot rule out Anteroseptal infarct (cited on or before 24-OCT-2021) Abnormal ECG When compared with ECG of 22-OCT-2022 22:02, No significant changes seen Referred By: Generic ED Physician Electronically Signed By:STANLEY HUMPHREYS
--- NOTE | 2022-12-27 00:11 | PC.NURSE ---
Pt O2 sat decreased. aPlaced pt on 2 LPM via NC, O2 improved to 94%
--- NOTE | 2022-12-27 00:17 | ED_ITS ---
HPI - SOB/Dyspnea General Chief Complaint: Dyspnea Stated Complaint: Cough Time Seen by Provider: 12/27/22 00:11 Source: patient and EMS Mode of arrival: EMS Limitations: no limitations History of Present Illness HPI Narrative: 72-year-old female with pertinent history of congestive heart failure with preserved ejection fraction, insulin-dependent diabetes mellitus, essential hypertension, chronic hypoxemic respiratory failure due to COPD with baseline 2 L supplemental oxygen, paroxysmal atrial fibrillation on Eliquis M for increased shortness of breath and cough for last 2-3 month patient to the hospital [facility] was seen at [facility] yesterday for Molina catheter dislodgement and blood sugar of 334 with chronic UTI Related Data Home Medications Medication Instructions Recorded Confirmed albuterol sulfate 90 mcg/actuation 2 puff inhalation Q4-6H PRN 01/23/21 10/23/22 aerosol inhaler (Proventil HFA) Wheezing apixaban 5 mg tablet (Eliquis) 5 mg PO BID 01/23/21 10/23/22 gabapentin 300 mg capsule 300 mg PO BID 01/23/21 10/23/22 lisinopril 5 mg tablet 5 mg PO DAILY 01/23/21 10/23/22 aspirin 81 mg tablet,delayed 81 mg PO DAILY 10/24/21 10/23/22 release fluticasone propionate 100 1 puff PO BID 10/24/21 10/23/22 mcg/actuation blister powder for inhalation (Flovent Diskus) insulin glargine 100 unit/mL (3 70 unit subcut DAILY 10/24/21 10/23/22 mL) subcutaneous pen (Lantus Solostar U-100 Insulin) furosemide 40 mg tablet 80 mg PO DAILY 03/09/22 10/23/22 metoprolol tartrate 50 mg tablet 50 mg PO BID 03/09/22 10/23/22 dulaglutide 0.75 mg/0.5 mL 0.75 mg subcut TU 10/23/22 10/23/22 subcutaneous pen injector (Trulicity) insulin lispro 100 unit/mL 0 sliding scale dose subcut QIDACHS 10/23/22 10/23/22 subcutaneous pen (Humalog KwikPen (U-100) Insulin) simvastatin 40 mg tablet 40 mg PO BEDTIME 10/23/22 10/23/22 Previous Rx's Medication Instructions Recorded albuterol sulfate 2.5 mg/3 mL 2.5 mg (3 mL) inhalation Q4-6H PRN 07/25/22 (0.083 %) solution for nebulization shortness of breath or wheezing #75 mL prednisone 20 mg tablet 20 mg PO DAILY #3 tabs 10/24/22 Allergies Allergy/AdvReac Type Severity Reaction Status Date / Time silver sulfadiazine Allergy Unknown UNK Verified 10/23/22 01:51 [From [facility]] Review of Systems Review of Systems: Yes all other systems are reviewed and are negative [facility] Past Medical History Medical History Aortic stenosis Bacteriuria Chronic heart failure with preserved ejection fraction (HFpEF) Chronic hypoxemic respiratory failure Chronic indwelling Molina catheter Chronic UTI Chronic UTI Congestive heart failure COPD (chronic obstructive pulmonary disease) Diabetes Diarrhea Glaucoma H/O: CVA (cerebrovascular accident) Hypertension Hypotonic neurogenic bladder Non-rheumatic aortic stenosis Obesity Obstructive sleep apnea Osteoarthritis Paroxysmal atrial fibrillation Severe sepsis UTI (urinary tract infection) Surgical History H/O adenoidectomy H/O enucleation of left eyeball History of tonsillectomy Family History Family History Father No problems noted. Mother No problems noted. Social History Social History Household Members: None Housing: Apartment Do you presently have visiting nurse or other home services: Yes (care givers) Unable to assess alcohol history related to: Unknown Alcohol intake: never Patient Tobacco Use Status: Never used Tobacco Smoked in Last 30 Days: No Second Hand Smoke Exposure: No Use of substances other than those prescribed or required for medical reasons: No Advance Directives: Yes Advance Directives on File: Yes Advance Directives Date on File: 07/09/20 service: No Current occupational status: disabled Physical Exam Vital Signs: Vital Signs: Last Vital Signs Pulse 70 12/27/22 00:45 Resp 16 12/27/22 00:45 BP 147/57 H 12/27/22 00:06 Pulse Ox 93 12/27/22 00:06 O2 Del Method Room Air 12/27/22 00:06 BMI result Body Mass Index 42.3 Appearance: Alert. Oriented X3. Obese saturating 96% on 2 L Eyes: No pallor or icterus ENT: Pharynx normal. Oral Mucosa moist Neck: Normal inspection. Neck supple. CVS: Normal heart rate and rhythm. Pulses normal. Respiratory: No respiratory distress. Equal air entry bilateral, no wheezing/rales/rhonchi Abdomen: Soft and nontender. Bowel sounds are present, no mass palpable, no CVA tenderness Skin: Skin warm and dry. Normal skin color. Normal skin turgor. Extremities: Trace lower extremity edema. No calf tenderness Neuro: Oriented X 3. No motor deficit. No sensory deficit.No cerebellar signs , cranial nerves II-XII intact Medications Administered Discontinued Medications Generic Name Dose Route Start Last Admin Trade Name Freq PRN Reason Stop Dose Admin Albuterol Sulfate 2.5 mg/ 0 mg 12/27/22 00:22 12/27/22 00:43 Albuterol/Ipratropium 3 ml INHALE 12/27/22 00:23 1 each ONCE ONE Administration Medical Decision Making Medical Decision Making [facility] Narrative: Patient with sleep apnea chronic lung disease unable to use CPAP machine comes here frequently with shortness of breath workup is stable chest x-ray negative for any acute gases are stable saturating 93% on room air improved to 96 on 2 L will discharge patient home advised to continue her treatments Lab Data [facility] Lab Attestation statement: I reviewed the patient's lab results. 12/27/22 00:39 12/27/22 00:39 Labs: Lab Results 12/27/22 12/27/22 12/27/22 Range/Units 00:39 00:39 00:39 WBC 8.4 (4.8-10.8) X10*3/uL RBC 5.11 (4.20-5.50) X10*6/uL Hgb 13.8 (12.0-16.0) g/dl Hct 43.6 (37.0-47.0) % MCV 85.3 (80.0-98.0) fL MCH 27.0 (27.0-33.0) pg MCHC 31.7 (31.0-35.0) g/dl RDW 16.0 (11.0-16.0) % Plt Count 177 (160-400) X10*3/uL MPV 11.1 (9.4-12.3) fL Immature Gran % (Auto) 0.2 (0.0-0.4) % Neut % (Auto) 63.9 (45-73) % Lymph % (Auto) 21.4 (20-40) % [place] % (Auto) 8.2 (2-11) % Eos % (Auto) 5.9 H (0-4) % Baso % (Auto) 0.4 (0-2) % Lymph # (Auto) 1.8 (1.2-4.9) X10*3/uL [place] # (Auto) 0.7 (0.1-1.2) X10*3/uL Eos # (Auto) 0.5 H (0.0-0.4) X10*3/uL Baso # (Auto) 0.0 (0.0-0.2) X10*3/uL Abs Immat Gran (auto) 0.02 (0.00-0.03) X10*3/uL Absolute Neuts (auto) 5.4 (2.0-8.3) x10*3/uL Absolute Nucleated RBC 0.000 (0.0-0.012) X10*3/uL Nucleated RBC % (auto) 0.0 (0.0-0.2) /100WBC VBG pH (7.32-7.43) VBG pCO2 mmHg VBG pO2 mmHg VBG HCO3 (22-26) mmol/L VBG O2 Saturation % VBG Base Excess mmol/L Sodium 138 (135-145) mmol/L Potassium 3.8 (3.3-5.1) mmol/L Chloride 94 L (96-108) mmol/L Carbon Dioxide 33 H (22-29) mmol/L Anion Gap 15 (12-20) BUN 18 H (9-16) mg/dL Creatinine 0.68 (0.5-1.4) mg/dL Estim Creat Clear Calc 99.5 Estimated GFR > 60 Random Glucose 268 H (60-115) mg/dL Calcium 10.0 D (8.4-10.2) mg/dL Troponin I High Sens 12.3 (<3.5-17.0) ng/L B-Natriuretic Peptide (<100) pg/mL 12/27/22 12/27/22 Range/Units 00:39 00:43 WBC (4.8-10.8) X10*3/uL RBC (4.20-5.50) X10*6/uL Hgb (12.0-16.0) g/dl Hct (37.0-47.0) % MCV (80.0-98.0) fL MCH (27.0-33.0) pg MCHC (31.0-35.0) g/dl RDW (11.0-16.0) % Plt Count (160-400) X10*3/uL MPV (9.4-12.3) fL Immature Gran % (Auto) (0.0-0.4) % Neut % (Auto) (45-73) % Lymph % (Auto) (20-40) % [place] % (Auto) (2-11) % Eos % (Auto) (0-4) % Baso % (Auto) (0-2) % Lymph # (Auto) (1.2-4.9) X10*3/uL [place] # (Auto) (0.1-1.2) X10*3/uL Eos # (Auto) (0.0-0.4) X10*3/uL Baso # (Auto) (0.0-0.2) X10*3/uL Abs Immat Gran (auto) (0.00-0.03) X10*3/uL Absolute Neuts (auto) (2.0-8.3) x10*3/uL Absolute Nucleated RBC (0.0-0.012) X10*3/uL Nucleated RBC % (auto) (0.0-0.2) /100WBC VBG pH 7.43 (7.32-7.43) VBG pCO2 64 mmHg VBG pO2 53 mmHg VBG HCO3 43 H (22-26) mmol/L VBG O2 Saturation 83.0 % VBG Base Excess 15.3 mmol/L Sodium (135-145) mmol/L Potassium (3.3-5.1) mmol/L Chloride (96-108) mmol/L Carbon Dioxide (22-29) mmol/L Anion Gap (12-20) BUN (9-16) mg/dL Creatinine (0.5-1.4) mg/dL Estim Creat Clear Calc Estimated GFR Random Glucose (60-115) mg/dL Calcium (8.4-10.2) mg/dL Troponin I High Sens (<3.5-17.0) ng/L B-Natriuretic Peptide 93 (<100) pg/mL Discharge Plan Discharge Clinical Impression: COPD (chronic obstructive pulmonary disease), Chronic hypoxemic respiratory failure Patient Disposition: Home, Self-Care Instructions: COPD (Chronic Obstructive Pulmonary Disease) (ED), Chronic Respiratory Failure (DC) Additional Instructions: Continue to use your inhaler/nebulizer treatment and other medications follow-up with your PCP Prescriptions: No Action gabapentin 300 mg capsule 300 mg PO BID lisinopril 5 mg tablet 5 mg PO DAILY albuterol sulfate [Proventil HFA] 90 mcg/actuation HFA aerosol inhaler 2 puff inhalation Q4-6H PRN (Reason: Wheezing) Eliquis 5 mg tablet 5 mg PO BID albuterol sulfate 2.5 mg /3 mL (0.083 %) solution for nebulization 2.5 mg inhalation Q4-6H PRN (Reason: shortness of breath or wheezing) Qty: 75 0RF Flovent Diskus 100 mcg/actuation blister with device 1 puff PO BID insulin glargine [Lantus Solostar U-100 Insulin] 100 unit/mL (3 mL) insulin pen 70 unit subcut DAILY aspirin 81 mg Tablet,Delayed Release (Dr/Ec) 81 mg PO DAILY metoprolol tartrate 50 mg tablet 50 mg PO BID furosemide 40 mg tablet 80 mg PO DAILY insulin lispro [Humalog KwikPen Insulin] 100 unit/mL insulin pen 0 sliding scale dose subcut QIDACHS Protocol: Insulin Correction Scale Less than or equal to 110 ---- Give (units): 0 111 to 150 Give (units): 0 151 to 200 Give (units): 2 201 to 250 Give (units): 4 251 to 300 Give (units): 6 301 to 350 Give (units): 8 Greater than 350 Give (units): 10 Call MD if Blood Glucose > : 350 Trulicity 0.75 mg/0.5 mL pen injector 0.75 mg subcut TU simvastatin 40 mg tablet 40 mg PO BEDTIME prednisone 20 mg tablet 20 mg PO DAILY Qty: 3 0RF
[2022-12-27 00:44] LABS: MANUAL DIFF FLAG NO
[2022-12-27 00:45] VITALS: PULSE 70; RESP 16; O2SAT 97
[2022-12-27 00:48] LABS: Basophils Percent Auto 0.4 % (0-2); Eosinophils Absolute Auto 0.5 X10*3/uL (0.0-0.4); Eosinophils Percent Auto 5.9 % (0-4); Hematocrit 43.6 % (37.0-47.0); Hemoglobin 13.8 g/dl (12.0-16.0); Imm Gran Abs Auto 0.02 X10*3/uL (0.00-0.03); Imm Gran Pct Auto 0.2 % (0.0-0.4); Lymphocytes Absolute Auto 1.8 X10*3/uL (1.2-4.9); Lymphocytes Percent Auto 21.4 % (20-40); Mean Corpuscular HGB Conc 31.7 g/dl (31.0-35.0); Mean Corpuscular Volume 85.3 fL (80.0-98.0); Mean Platelet Volume 11.1 fL (9.4-12.3); Monocytes Absolute Auto 0.7 X10*3/uL (0.1-1.2); Monocytes Percent Auto 8.2 % (2-11); Neutrophils Absolute Auto 5.4 x10*3/uL (2.0-8.3); Neutrophils Percent Auto 63.9 % (45-73); Platelet Count 177 X10*3/uL (160-400); Red Blood Count 5.11 X10*6/uL (4.20-5.50); White Blood Count 8.4 X10*3/uL (4.8-10.8)
[2022-12-27 00:48] LABS: Venous Blood Gas Refer to POC result
[2022-12-27 00:50] LABS: VBG Base Excess 15.3 mmol/L; VBG HCO3 43 mmol/L (22-26); VBG pCO2 64 mmHg; VBG pH 7.43 (7.32-7.43); VBG pO2 53 mmHg
[2022-12-27 00:58] LABS: Anion Gap 15 (12-20); Blood Urea Nitrogen 18 mg/dL (9-16); Carbon Dioxide 33 mmol/L (22-29); Chloride 94 mmol/L (96-108); Creatinine Clr Calc Pharmacy 99.5; Estimated Glomerular Filt Rate > 60; Glucose Random 268 mg/dL (60-115); Potassium 3.8 mmol/L (3.3-5.1); Sodium 138 mmol/L (135-145)
[2022-12-27 01:06] LABS: B Type Natriuretic Peptide 93 pg/mL (<100); Troponin-I High Sensitivity 12.3 ng/L (<3.5-17.0)
--- NOTE | 2022-12-27 01:34 | MHC.EDTECH ---
Addendum entered by Savita Levin 12/27/22 01:40: call out to [facility] medical records at 0026 for transfer summary per DR. Crain Original Note: call out to [facility] medical records at [address] Crain
--- NOTE | 2022-12-27 01:35 | MHC.EDTECH ---
call out to [facility] for transport at 0137 back home, ETA given was half hour
== END 2022-12-27 02:28 | disposition home or self-care (01) ==
PROVIDERS: Emergency Provider Internal Medicine; PCP Family Medicine
DX: J44.9 Chronic obstructive pulmonary disease, unspecified (principal); J96.11 Chronic respiratory failure with hypoxia; R05.9 Cough, unspecified; R94.31 Abnormal electrocardiogram [ECG] [EKG]; Z79.899 Other long term (current) drug therapy
CPT/HCPCS: 36415; 71045; 80048; 82803; 83880; 84484; 85025; 93005; 94640; 99284; 99285

== ENCOUNTER 2023-01-27 08:06 | Emergency (ER) | payer MEDICARE, MEDICAID, SELFPAY ==
[2023-01-27 08:29] VITALS: BP 158/102; BP 195/72; PULSE 69; PULSE 73; RESP 15; TEMP 37; O2SAT 92; O2SAT 93; BMI 43.5
[2023-01-27 08:33] VITALS: BP 195/72; PULSE 73; RESP 16; TEMP 37; O2SAT 92
--- NOTE | 2023-01-27 10:15 | PC.NURSE ---
pt is a&o x4, pleasant, calm, and cooperative. coming from home where she lives alone after her bed collapsed while she was in it this morning. pt reports no pain or injuries. [facility] just called and spoke with this rn to check in on pt and is planning on coming in to visit with pt some point today. pt is currently resting quietly on stretcher in no apparent distress. miguel a
[2023-01-27 10:48] LABS: Glucose, Whole Blood 201 mg/dL (60-115)
--- NOTE | 2023-01-27 10:50 | PC.NURSE ---
pt poc 201. Dr. Ha aware
--- NOTE | 2023-01-27 10:50 | ED_ITS ---
HPI - General Adult General Chief complaint: General Medical Stated complaint: Fall out of bed, from home per EMS Time Seen by Provider: 01/27/23 08:51 Source: EMS Mode of arrival: EMS Limitations: no limitations History of Present Illness HPI narrative: This is a 72 years old patient with morbid obesity history of CVA was pretty much bedbound presented to emergency room because her hospital bed broke, she denies any injury she has no hip pain no neck pain no arm pain. Denies any chest pain Onset (ago): hour(s) (3) Radiation: non-radiation Severity: mild Relieving factors: none Exacerbating factors: none Associated symptoms: denies other symptoms Related Data Home Medications Medication Instructions Recorded Confirmed albuterol sulfate 90 mcg/actuation 2 puff inhalation Q4-6H PRN 01/23/21 01/27/23 aerosol inhaler (Proventil HFA) Wheezing apixaban 5 mg tablet (Eliquis) 5 mg PO BID 01/23/21 01/27/23 lisinopril 5 mg tablet 5 mg PO DAILY 01/23/21 01/27/23 aspirin 81 mg tablet,delayed 81 mg PO DAILY 10/24/21 01/27/23 release insulin glargine 100 unit/mL (3 70 unit subcut DAILY 10/24/21 01/27/23 mL) subcutaneous pen (Lantus Solostar U-100 Insulin) furosemide 40 mg tablet 80 mg PO DAILY 03/09/22 01/27/23 metoprolol tartrate 50 mg tablet 50 mg PO BID 03/09/22 01/27/23 dulaglutide 0.75 mg/0.5 mL 0.75 mg subcut TU 10/23/22 01/27/23 subcutaneous pen injector (Trulicity) insulin lispro 100 unit/mL 1 sliding scale dose subcut QIDACHS 10/23/22 01/27/23 subcutaneous pen (Humalog KwikPen (U-100) Insulin) acetaminophen 325 mg tablet 650 mg PO Q6H PRN Pain 01/27/23 01/27/23 ergocalciferol (vitamin D2) 1,250 1,250 mcg PO TH 01/27/23 01/27/23 mcg (50,000 unit) capsule fluticasone furoate 200 1 ea inhalation DAILY 01/27/23 01/27/23 mcg-vilanterol 25 mcg/dose inhalation powder (Breo Ellipta) gabapentin 300 mg capsule 300 mg PO TID 01/27/23 01/27/23 montelukast 10 mg tablet 10 mg PO BEDTIME 01/27/23 01/27/23 oxybutynin chloride 5 mg 5 mg PO BEDTIME 01/27/23 01/27/23 tablet,extended release 24 hr sennosides 8.6 mg-docusate sodium 2 tab PO BEDTIME PRN constipation 01/27/23 01/27/23 50 mg tablet (Senexon-S) Previous Rx's Medication Instructions Recorded albuterol sulfate 2.5 mg/3 mL 2.5 mg (3 mL) inhalation Q4-6H PRN 07/25/22 (0.083 %) solution for nebulization shortness of breath or wheezing #75 mL Allergies Allergy/AdvReac Type Severity Reaction Status Date / Time silver sulfadiazine Allergy Unknown UNK Verified 10/23/22 01:51 [From [facility]] Review of Systems Constitutional: Constitutional: Reports no additional constitutional complaints Eyes: Eyes: Reports no additional eye complaints Cardiovascular: Cardiovascular: Reports no additional cardiovascular complaints Musculoskeletal: Musculoskeletal: Reports no additional musculoskeletal complaints [facility] Past Medical History Attestation statement: The following information was validated with the patient. Medical History Aortic stenosis Bacteriuria Chronic heart failure with preserved ejection fraction (HFpEF) Chronic hypoxemic respiratory failure Chronic indwelling Molina catheter Chronic UTI Chronic UTI Congestive heart failure COPD (chronic obstructive pulmonary disease) Diabetes Diarrhea Glaucoma H/O: CVA (cerebrovascular accident) Hypertension Hypotonic neurogenic bladder Non-rheumatic aortic stenosis Obesity Obstructive sleep apnea Osteoarthritis Paroxysmal atrial fibrillation Severe sepsis UTI (urinary tract infection) Surgical History H/O adenoidectomy H/O enucleation of left eyeball History of tonsillectomy Family History Family History Father No problems noted. Mother No problems noted. Social History Social History Household Members: None Housing: Apartment Do you presently have visiting nurse or other home services: Yes (care givers) Unable to assess alcohol history related to: Unknown Alcohol intake: never Patient Tobacco Use Status: Never used Tobacco Smoked in Last 30 Days: No Second Hand Smoke Exposure: No Use of substances other than those prescribed or required for medical reasons: No Advance Directives: Yes Advance Directives on File: Yes Advance Directives Date on File: 07/09/20 service: No Current occupational status: disabled Physical Exam ED Vital Signs: Vital Signs - 24 hr 01/27/23 08:29 01/27/23 08:33 01/27/23 11:46 Temperature 98.6 F 98.6 F Pulse Rate 73 73 69 Respiratory Rate 15 16 12 Blood Pressure 195/72 H 195/72 H 150/90 H Pulse Oximetry 93 92 95 Oxygen Delivery Method Room Air Room Air Room Air 01/27/23 15:41 Temperature 97.7 F Pulse Rate 65 Respiratory Rate 12 Blood Pressure 149/80 H Pulse Oximetry 97 Oxygen Delivery Method Room Air BMI result Body Mass Index 43.5 Const General: cooperative Nutritional Appearance: well nourished Orientation/consciousness: patient oriented x3 Limitations: no limitations HENMT Other: No sign of injury Neck Other: Supple nontender Chest Chest palpation & inspection: normal inspection of the chest Resp Effort & Inspection: normal respiratory effort Cardio Jugular venous distension: no JVD Rate: regular rate Rhythm: regular rhythm GI Inspection: Yes normal to inspection Palpation (GI): Soft to palpation, not firm, nontender and no guarding Neuro General: patient oriented x3 Extrem Other: No injury no likes pain no hip pain no tenderness no deformity Course Course Course Narrative: At this point waiting for the disposition case work aide is in the case, we need to find in the hospital bed for the patient. I am off now the case will be signed out to Enrique Reevaluation(s) Reevaluation #1: signed off to Dr Nunez Time: 16:58 Medical Decision Making Medical Decision Making MDM Narrative: Patient presented to emergency room because the hospital bed collapsed she d enies any injury with consult case work aide. Admission/Observation Consideration of admission/observation: Escalation of care including admi ssion/observation considered Consult Healthcare Provider case work aide Lab Data Labs: Lab Results 01/27/23 01/27/23 Range/Units 10:43 15:00 POC Glucose 201 H (60-115) mg/dL COVID-19 (ERIKA) Negative (Negative) COVID-19 BYOM! See Note Discharge Plan Discharge Clinical Impression: Fall Patient Disposition: Still a Patient Prescriptions: No Action lisinopril 5 mg tablet 5 mg PO DAILY albuterol sulfate [Proventil HFA] 90 mcg/actuation HFA aerosol inhaler 2 puff inhalation Q4-6H PRN (Reason: Wheezing) Eliquis 5 mg tablet 5 mg PO BID albuterol sulfate 2.5 mg /3 mL (0.083 %) solution for nebulization 2.5 mg inhalation Q4-6H PRN (Reason: shortness of breath or wheezing) Qty: 75 0RF insulin glargine [Lantus Solostar U-100 Insulin] 100 unit/mL (3 mL) insulin pen 70 unit subcut DAILY aspirin 81 mg Tablet,Delayed Release (Dr/Ec) 81 mg PO DAILY metoprolol tartrate 50 mg tablet 50 mg PO BID furosemide 40 mg tablet 80 mg PO DAILY insulin lispro [Humalog KwikPen Insulin] 100 unit/mL insulin pen 1 sliding scale dose subcut QIDACHS Protocol: Insulin Correction Scale Less than or equal to 110 ---- Give (units): 0 111 to 150 Give (units): 0 151 to 200 Give (units): 2 201 to 250 Give (units): 4 251 to 300 Give (units): 6 301 to 350 Give (units): 8 Greater than 350 Give (units): 10 Call MD if Blood Glucose > : 350 Trulicity 0.75 mg/0.5 mL pen injector 0.75 mg subcut TU acetaminophen 325 mg tablet 650 mg PO Q6H PRN (Reason: Pain) sennosides-docusate sodium [Senexon-S] 8.6-50 mg tablet 2 tab PO BEDTIME PRN (Reason: constipation) oxybutynin chloride 5 mg tablet extended release 24hr 5 mg PO BEDTIME gabapentin 300 mg capsule 300 mg PO TID montelukast 10 mg tablet 10 mg PO BEDTIME ergocalciferol (vitamin D2) 1,250 mcg (50,000 unit) capsule 1,250 mcg PO TH fluticasone furoate-vilanterol [Breo Ellipta] 200-25 mcg/dose blister with device 1 ea INHALATION DAILY
--- NOTE | 2023-01-27 11:22 | PC.NURSE ---
pt was found soiled with urine. pt seems to think when her bed collapsed, her rai was pulled out a little, leaking urine. pt bed was changed over with this RN and tech. resting quietly on stretcher facundo. wctm
[2023-01-27 11:46] VITALS: BP 150/90; PULSE 69; RESP 12; O2SAT 95
--- NOTE | 2023-01-27 12:21 | PC.NURSE ---
Protective Services Worker, Yolis Carey, from [facility] came to speak with pt. left business card with phone number in pt folder. Yolis Carey contact number: [phone] Ext. [phone] Also provided the name of the pt's social scientist: Betsy Andersen
--- NOTE | 2023-01-27 12:47 | PC.NURSE ---
pt brought to this RN's attention that she now has a golf ball-sized bump to her left lower extremity by her ankle. this was not there when pt arrived to ED, but pt now noticed it due to throbbing pain. pt is on Eliquis. Dr. Ha aware
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
[2023-01-27 15:40] LABS: COVID-19 Test Negative (Negative)
--- NOTE | 2023-01-27 15:40 | PC.NURSE ---
pt needs rai changed. 24Fr catheter with 45cc balloon. unable to find this size combination in ED. messaged lópez Marcelino tech for guidance. awaiting response. wctm
[2023-01-27 15:41] VITALS: BP 149/80; PULSE 65; RESP 12; TEMP 36.5; O2SAT 97
--- NOTE | 2023-01-27 15:42 | PHA.MEDREC ---
Pharmacy Consult ? Medication Reconciliation Pharmacy has completed the medication reconciliation. Spoke to patient who knew names of meds, but not doses. Advised I call pharmacy which i did. Verbalized her ss insulin with meals and lantus 64-70 qam heather
--- NOTE | 2023-01-27 16:21 | PC.NURSE ---
pt incontinent of stool. large solid bowel movement. pt cleaned up and changed.
[2023-01-27 17:38] LABS: Glucose, Whole Blood 111 mg/dL (60-115)
[2023-01-27 18:17] VITALS: BP 125/53; PULSE 83; RESP 16; O2SAT 95
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
[2023-01-27 20:50] LABS: Glucose, Whole Blood 221 mg/dL (60-115)
[2023-01-27 20:52] VITALS: BP 166/69; PULSE 77; RESP 20; TEMP 36.7; O2SAT 95
[2023-01-27] MEDS: Montelukast Sodium 10 MG TABLET PO (21:02)
[2023-01-27] MEDS: Insulin Lispro 100 UNIT/ML 3 ML VIAL SUBCUT (21:02)
[2023-01-27] MEDS: Gabapentin 300 MG CAPSULE PO (21:02)
[2023-01-27] MEDS: Acetaminophen 325 MG TABLET 650 MG PO (21:02)
[2023-01-27] MEDS: oxyBUTYnin chloride ER 5 MG TAB.ER.24 PO (21:09)
[2023-01-27] MEDS: Metoprolol Tartrate 50 MG TABLET PO (21:09)
[2023-01-27] MEDS: Apixaban 5 MG TABLET PO (21:09)
--- NOTE | 2023-01-27 21:45 | PC.NURSE ---
Pt arrived from main ED via stretcher and accompanied by staff around 1999. Pt is A&OX3, on 2L n/c. She is bedbound. She has a chronic rai. Pt has redness to abd folds, inner thighs, breasts and buttocks. She c/o pain in her left lower leg where she reports she had bumped it. She does have a lump there that is tender. No break in skin. Virgil lower extremities discolored. heels red. Pt received PRN tylenol for pain and an ice pack was placed on L-leg. Her blood glucose was 221, she received 4u sc insulin. SBP was in the 160s, she received her sched BP meds. Pt requested a sandwich and is currently sitting up in bed eating. Call light within reach, Safety measures maintained.
[2023-01-28 06:00] LABS: Glucose, Whole Blood 210 mg/dL (60-115)
[2023-01-28 06:18] VITALS: BP 141/62; PULSE 65; RESP 20; TEMP 36.4; O2SAT 99
[2023-01-28] MEDS: Furosemide 40 MG TABLET 80 MG PO (07:37)
[2023-01-28] MEDS: Insulin Glargine,Hum.rec.anlog 100 UNIT/ML 10 ML VIAL 70 UNIT SUBCUT (07:37)
[2023-01-28] MEDS: Aspirin Enteric Coated 81 MG TABLET.DR PO (07:37)
[2023-01-28] MEDS: Insulin Lispro 100 UNIT/ML 3 ML VIAL SUBCUT ×4 (07:37→21:38)
[2023-01-28] MEDS: Gabapentin 300 MG CAPSULE PO ×3 (07:37→21:37)
[2023-01-28] MEDS: Acetaminophen 325 MG TABLET 650 MG PO ×3 (07:39→21:38)
--- NOTE | 2023-01-28 08:12 | PC.NURSE ---
Assumed care of patient at this time.
[2023-01-28] MEDS: lisinopriL 5 MG TABLET PO (10:09)
[2023-01-28] MEDS: Metoprolol Tartrate 50 MG TABLET PO ×2 (10:10→21:37)
[2023-01-28] MEDS: Apixaban 5 MG TABLET PO ×2 (10:10→21:37)
[2023-01-28 11:06] LABS: Glucose, Whole Blood 310 mg/dL (60-115)
--- NOTE | 2023-01-28 11:30 | PC.NURSE ---
Patient given incontinence care, washed up, new jawney provided, powder to folds, barrier cream to buttocks and upper thighs where there is a chronic pressure injury. (redness, no open areas, blanchable). Turned and repositioned q2 hours. Airloss mattress applied to bed.
[2023-01-28 14:00] VITALS: BP 125/65; PULSE 67; RESP 18; TEMP 36.6; O2SAT 94
[2023-01-28 16:50] LABS: Glucose, Whole Blood 275 mg/dL (60-115)
[2023-01-28 20:21] LABS: Glucose, Whole Blood 200 mg/dL (60-115)
[2023-01-28 21:28] VITALS: BP 135/61; PULSE 65; RESP 20; TEMP 37; O2SAT 97
[2023-01-28] MEDS: Montelukast Sodium 10 MG TABLET PO (21:37)
[2023-01-28] MEDS: oxyBUTYnin chloride ER 5 MG TAB.ER.24 PO (21:43)
--- NOTE | 2023-01-28 22:00 | PC.NURSE ---
Pt is A&OX3, on 2L n/c at , She is bedbound. and has a chronic rai. Pt has redness to abd folds, inner thighs, breasts and buttocks. She c/o pain in her left lower leg where she reports she had bumped it. She does have a lump there that is tender. No break in skin. Virgil lower extremities discolored. heels red. Pt received PRN tylenol for pain and an ice pack was placed on L-leg. She received her sched BP meds. Call light within reach, Safety measures maintained.
[2023-01-29 06:00] VITALS: BP 107/50; PULSE 71; RESP 18; TEMP 36.6; O2SAT 95
[2023-01-29] MEDS: Gabapentin 300 MG CAPSULE PO ×3 (08:00→21:42)
[2023-01-29] MEDS: Apixaban 5 MG TABLET PO ×2 (08:00→21:44)
[2023-01-29] MEDS: Insulin Lispro 100 UNIT/ML 3 ML VIAL SUBCUT ×4 (08:00→21:45)
[2023-01-29] MEDS: Insulin Glargine,Hum.rec.anlog 100 UNIT/ML 10 ML VIAL 70 UNIT SUBCUT (08:00)
[2023-01-29] MEDS: Aspirin Enteric Coated 81 MG TABLET.DR PO (08:01)
[2023-01-29] MEDS: Fluticasone/Vilanterol 200/25 BLST.W.DEV 1 PUFF INHALE (08:01)
[2023-01-29] MEDS: Metoprolol Tartrate 50 MG TABLET PO ×2 (08:01→21:41)
[2023-01-29] MEDS: Furosemide 40 MG TABLET 80 MG PO (08:01)
[2023-01-29 08:02] LABS: Glucose, Whole Blood 159 mg/dL (60-115)
[2023-01-29 08:05] VITALS: PULSE 72; RESP 18; O2SAT 92
[2023-01-29 11:48] LABS: Glucose, Whole Blood 233 mg/dL (60-115)
[2023-01-29 11:51] VITALS: BP 145/62
[2023-01-29] MEDS: lisinopriL 5 MG TABLET PO (11:51)
[2023-01-29 14:00] VITALS: BP 131/51; PULSE 75; RESP 20; TEMP 36.7; O2SAT 91
[2023-01-29 16:48] LABS: Glucose, Whole Blood 190 mg/dL (60-115)
[2023-01-29 20:34] LABS: Glucose, Whole Blood 185 mg/dL (60-115)
[2023-01-29] MEDS: oxyBUTYnin chloride ER 5 MG TAB.ER.24 PO (21:39)
[2023-01-29] MEDS: Acetaminophen 325 MG TABLET 650 MG PO (21:42)
[2023-01-29] MEDS: Montelukast Sodium 10 MG TABLET PO (21:44)
[2023-01-29 22:00] VITALS: BP 97/51; PULSE 71; RESP 20; TEMP 36.5; O2SAT 91
[2023-01-30] VITALS (7 sets, daily range): BP systolic 133–159; BP diastolic 60–68; PULSE 55–72; RESP 14–20; TEMP 36.1–36.8; O2SAT 93–98
--- NOTE | 2023-01-30 00:25 | PC.NURSE ---
Assumed care at 20:00. Alert, oriented x4, some childish, noisy, and bizarre behavior, slow speech with moist tone. Moist productive cough thin clear sputum, placed on 2 LPM for SpO2 86-89% on room air, uses PRN oxygen 2-3 LPM at home. Compliant with care, incontinent of stool hard, formed, brown, large. Chair bound with alex lift to wheelchair at baseline.
[2023-01-30 07:18] LABS: Glucose, Whole Blood 154 mg/dL (60-115)
[2023-01-30] MEDS: Fluticasone/Vilanterol 200/25 BLST.W.DEV 1 PUFF INHALE (07:34)
[2023-01-30] MEDS: Furosemide 40 MG TABLET 80 MG PO (07:51)
[2023-01-30] MEDS: Gabapentin 300 MG CAPSULE PO ×3 (07:52→20:18)
[2023-01-30] MEDS: Metoprolol Tartrate 50 MG TABLET PO (07:52)
[2023-01-30] MEDS: Apixaban 5 MG TABLET PO ×2 (07:52→20:20)
[2023-01-30] MEDS: Insulin Glargine,Hum.rec.anlog 100 UNIT/ML 10 ML VIAL 70 UNIT SUBCUT (07:52)
[2023-01-30] MEDS: Insulin Lispro 100 UNIT/ML 3 ML VIAL SUBCUT ×4 (07:52→20:18)
[2023-01-30] MEDS: Aspirin Enteric Coated 81 MG TABLET.DR PO (07:52)
[2023-01-30] MEDS: Acetaminophen 325 MG TABLET 650 MG PO (07:57)
[2023-01-30] MEDS: lisinopriL 5 MG TABLET PO (10:02)
[2023-01-30 11:11] LABS: Glucose, Whole Blood 276 mg/dL (60-115)
--- NOTE | 2023-01-30 12:00 | PC.NURSE ---
eating lunch and watching tv. no respiratory distress- frequent cough per pt has postnasal drip and spits up phlegm however no issues chewing or drinking and airway intact. rai intact- yellow urine. +CSM. no pain. answers orientation questions appropriately; alert, conversing. HARIS equally.
--- NOTE | 2023-01-30 13:42 | PC.NURSE ---
per pt request rn attempted to contact case management via phone- no answer, no option for voicemail. will continue to try. pt has question regarding her home wheelchair
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
--- NOTE | 2023-01-30 15:39 | PC.NURSE ---
denies pain. has snack/po fluids. watching tv. no distress. conversing well. cough continues clearing secretions.
[2023-01-30 16:38] LABS: Glucose, Whole Blood 204 mg/dL (60-115)
--- NOTE | 2023-01-30 18:35 | PC.NURSE ---
ate dinner. watching tv. resting. no distress. talking
[2023-01-30 20:04] LABS: Glucose, Whole Blood 243 mg/dL (60-115)
[2023-01-30] MEDS: Montelukast Sodium 10 MG TABLET PO (20:18)
[2023-01-30] MEDS: oxyBUTYnin chloride ER 5 MG TAB.ER.24 PO (20:19)
--- NOTE | 2023-01-30 21:00 | PC.NURSE ---
patient received in bed with eyes open patient received all medications with no issues patient showing no distress patient will continue to be monitored for safety
[2023-01-31 07:34] LABS: Glucose, Whole Blood 146 mg/dL (60-115)
[2023-01-31] MEDS: Fluticasone/Vilanterol 200/25 BLST.W.DEV 1 PUFF INHALE (07:49)
[2023-01-31 07:50] VITALS: PULSE 67; RESP 16; O2SAT 93
[2023-01-31 09:08] VITALS: BP 138/67; PULSE 79; RESP 20; TEMP 36.2; O2SAT 94
[2023-01-31] MEDS: Metoprolol Tartrate 50 MG TABLET PO ×2 (09:09→20:53)
[2023-01-31] MEDS: Aspirin Enteric Coated 81 MG TABLET.DR PO (09:09)
[2023-01-31] MEDS: Furosemide 40 MG TABLET 80 MG PO (09:10)
[2023-01-31] MEDS: Apixaban 5 MG TABLET PO ×2 (09:10→20:54)
[2023-01-31] MEDS: lisinopriL 5 MG TABLET PO (09:10)
[2023-01-31] MEDS: Gabapentin 300 MG CAPSULE PO ×3 (09:11→20:52)
[2023-01-31] MEDS: Insulin Glargine,Hum.rec.anlog 100 UNIT/ML 10 ML VIAL 70 UNIT SUBCUT (09:12)
--- NOTE | 2023-01-31 09:48 | PC.NURSE ---
assumed care of pt at 0700. pt a&o, pleasant, calm, and cooperative. poc taken, no insulin coverage needed. medicated per sep, tolerated breakfast well. currently resting quietly in bed in no apparent distress. wctm
--- NOTE | 2023-01-31 10:46 | MHC.CM.ED ---
Patient remains in ER overflow. [facility] is willing to offer a bed if MDS is completed and approved by [facility]. Spoke with patient's daughter/HCP, Stefany, via telephone at [phone]. Stefany is aware patient's hospital bed will need to be fixed and her wheelchair needs to be replaced. Stefany understands it is not safe for patient to return home until this is done and is agreeable to transfer to [facility]. MDS completed and faxed to [facility]. Also uploaded to [facility] in [facility]. Continue to monitor for d/c needs.
[2023-01-31 12:27] LABS: Glucose, Whole Blood 288 mg/dL (60-115)
[2023-01-31] MEDS: Insulin Lispro 100 UNIT/ML 3 ML VIAL SUBCUT ×3 (12:38→20:53)
--- NOTE | 2023-01-31 12:40 | PC.NURSE ---
pt back on unit from dialysis
[2023-01-31 13:50] VITALS: BP 138/64; PULSE 69; RESP 18; TEMP 36.2; O2SAT 92
[2023-01-31 16:00] VITALS: BP 135/68; PULSE 67; RESP 16; TEMP 36.7; O2SAT 98
--- NOTE | 2023-01-31 16:14 | MHC.EDTECH ---
Addendum entered by Eileen Chavez 01/31/23 16:15: THIS PCT ASSUMED CARE OF PATIENT AT 1515 ,PATIENT IN BED WATCHING TELEVISION AND TALKING ON HER CELL PHONE ,PATIENT WAS REPOSITION AND BOOSTED UP IN BED ,VITALS SIGN TAKEN . Original Note: THIS PCT ASSUMED CARE OF PATIENT AT 1515 ,PATIENT IN [place] SPRITS SITTING UP IN RECLINER AND WATCHING TELEVISION ,VITALS SIGN TAKEN .
--- NOTE | 2023-01-31 17:52 | PC.NURSE ---
full bed change performed by this RN and BOGDAN Arellano Tech. pt tolerated well. rai catheter emptied. pt currently resting quietly, in no apparent distress. rr even/unlabored. wctm
--- NOTE | 2023-01-31 18:05 | MHC.CM.ED ---
Pt cleared for transport to [facility] on 02/01. BLS booked for 10 am. Paperwork with lbd teacher. Pt aware.
--- NOTE | 2023-01-31 18:09 | MHC.EDTECH ---
PATIENT ATE 100 % OF MEAL DRANK 240 ML DIET DES KIMBLE ,BED BATH GIVEN BY THIS PCT AND DAJA ESTRADA ,BEDDING CHANGE ,PT WATCHING TELEVISION .
[2023-01-31 18:45] LABS: Glucose, Whole Blood 275 mg/dL (60-115)
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
[2023-01-31 20:38] LABS: Glucose, Whole Blood 228 mg/dL (60-115)
[2023-01-31] MEDS: Montelukast Sodium 10 MG TABLET PO (20:52)
[2023-01-31] MEDS: oxyBUTYnin chloride ER 5 MG TAB.ER.24 PO (20:52)
[2023-01-31 22:48] VITALS: BP 152/68; PULSE 60; RESP 20; TEMP 37; O2SAT 93
--- NOTE | 2023-02-01 06:31 | PC.NURSE ---
pt slept for 2-3 hours, crying upset about going to rehab
[2023-02-01 06:40] VITALS: BP 148/65; PULSE 68; TEMP 35.8; O2SAT 93
[2023-02-01 07:23] LABS: Glucose, Whole Blood 108 mg/dL (60-115)
--- NOTE | 2023-02-01 07:26 | PC.NURSE ---
Resumed care of patient this morning, she is currently requesting PO fluids, suction at bedside to assist with phlem. Pt is restating multiple times that her bed is fixed, and she wants to go home, pt made aware of plan for d/c today to rehab. She is at baseline cognition. Call bain within reach, all safety measures in place.
[2023-02-01] MEDS: Apixaban 5 MG TABLET PO (08:16)
[2023-02-01] MEDS: lisinopriL 5 MG TABLET PO (08:16)
[2023-02-01] MEDS: Aspirin Enteric Coated 81 MG TABLET.DR PO (08:16)
[2023-02-01] MEDS: Gabapentin 300 MG CAPSULE PO (08:16)
[2023-02-01] MEDS: Insulin Glargine,Hum.rec.anlog 100 UNIT/ML 10 ML VIAL 70 UNIT SUBCUT (08:16)
[2023-02-01] MEDS: Furosemide 40 MG TABLET 80 MG PO (08:17)
[2023-02-01] MEDS: Metoprolol Tartrate 50 MG TABLET PO (08:17)
[2023-02-01 08:55] VITALS: PULSE 73; RESP 20; O2SAT 95
[2023-02-01] MEDS: Fluticasone/Vilanterol 200/25 BLST.W.DEV 1 PUFF INHALE (08:55)
--- NOTE | 2023-02-01 09:38 | PC.NURSE ---
Nursing report given to receiving facility, transport booked for 10am via BLS
--- NOTE | 2023-02-01 09:58 | MHC.CM.ED ---
Patient remains in Er overflow. Will transfer to [facility] via BLS at 10am. Patient, daughter Meeta Mccall RN and Dorothea ZACARIAS aware.
== END 2023-02-01 10:09 ==
PROVIDERS: Emergency Provider Emergency Medicine; PCP Family Medicine
DX: Z04.3 Encounter for examination and observation following other accident (principal); Z91.81 History of falling; E11.9 Type 2 diabetes mellitus without complications; I11.0 Hypertensive heart disease with heart failure; I50.32 Chronic diastolic (congestive) heart failure; I48.0 Paroxysmal atrial fibrillation; J44.9 Chronic obstructive pulmonary disease, unspecified; Z86.73 Personal history of transient ischemic attack (TIA), and cerebral infarction without residual deficits; Z87.440 Personal history of urinary (tract) infections; Z96.0 Presence of urogenital implants; Z79.4 Long term (current) use of insulin; Z79.01 Long term (current) use of anticoagulants; Z79.899 Other long term (current) drug therapy; Z20.822 Contact with and (suspected) exposure to COVID-19
CPT/HCPCS: 82947; 87635; 94640; 99285

== ENCOUNTER 2023-10-26 00:34 | Emergency (ER) | payer MEDICARE, MEDICAID, SELFPAY ==
--- NOTE | 2023-10-26 | ECG_ITS ---
Test Reason : SOB Blood Pressure : / mmHG Vent. Rate : 084 BPM Atrial Rate : 084 BPM P-R Int : 192 ms QRS Dur : 098 ms QT Int : 372 ms P-R-T Axes : 022 000 076 degrees QTc Int : 439 ms Sinus rhythm with Premature supraventricular complexes Minimal voltage criteria for LVH, may be normal variant ( Daniel product ) Septal infarct (cited on or before 24-OCT-2021) Abnormal ECG When compared with ECG of 27-DEC-2022 00:14, Premature supraventricular complexes are now Present MD interval has decreased Referred By: Generic ED Physician Electronically Signed By:STANLEY HUMPHREYS
--- NOTE | ~2023-10-26 | XR_ITS ---
EXAMINATION: XR CHEST CLINICAL INFORMATION: Cough, dyspnea, hypoxia COMPARISON: 12/27/2022 TECHNIQUE: Frontal view of the chest was obtained. FINDINGS: Lung volumes are symmetric. No focal consolidation is seen. Prominence of the central vasculature and surrounding interstitium is similar to prior. No evidence of pneumothorax or significant pleural effusion. Cardiac silhouette remains prominent. Degenerative changes in the bilateral glenohumeral joints. XR/XR chest 1V IMPRESSION: Prominent central vasculature and surrounding interstitium, similar to prior and suggesting a degree of congestion. No new consolidation.
[2023-10-26 00:37] VITALS: BP 147/76; PULSE 84; O2SAT 99
[2023-10-26 00:45] VITALS: BP 178/84; PULSE 83; RESP 20; TEMP 36.6; O2SAT 95; BMI 46.9
[2023-10-26 01:08] LABS: MANUAL DIFF FLAG NO
[2023-10-26 01:11] LABS: Venous Blood Gas Refer to POC result
[2023-10-26 01:12] LABS: Basophils Percent Auto 0.3 % (0-2); Eosinophils Absolute Auto 0.2 X10*3/uL (0.0-0.4); Eosinophils Percent Auto 2.5 % (0-4); Hematocrit 43.9 % (37.0-47.0); Hemoglobin 13.1 g/dl (12.0-16.0); Imm Gran Abs Auto 0.02 X10*3/uL (0.00-0.03); Imm Gran Pct Auto 0.2 % (0.0-0.4); Lymphocytes Absolute Auto 1.9 X10*3/uL (1.2-4.9); Lymphocytes Percent Auto 22.1 % (20-40); Mean Corpuscular HGB Conc 29.8 g/dl (31.0-35.0); Mean Corpuscular Hemoglobin 23.2 pg (27.0-33.0); Mean Corpuscular Volume 77.8 fL (80.0-98.0); Mean Platelet Volume 10.6 fL (9.4-12.3); Monocytes Absolute Auto 0.8 X10*3/uL (0.1-1.2); Monocytes Percent Auto 8.5 % (2-11); Neutrophils Absolute Auto 5.8 x10*3/uL (2.0-8.3); Neutrophils Percent Auto 66.4 % (45-73); Platelet Count 181 X10*3/uL (160-400); Red Blood Count 5.64 X10*6/uL (4.20-5.50); Red Cell Distribution Width 18.7 % (11.0-16.0); White Blood Count 8.8 X10*3/uL (4.8-10.8)
[2023-10-26 01:14] LABS: VBG Base Excess 13.5 mmol/L; VBG HCO3 40 mmol/L (22-26); VBG pCO2 59 mmHg; VBG pH 7.44 (7.32-7.43); VBG pO2 79 mmHg
--- NOTE | 2023-10-26 01:16 | MHC.EDTECH ---
1200ml urine emptied from Pts rai bag
[2023-10-26 01:17] LABS: INTERNATIONAL NORM RATIO 1.4 (0.9-1.1); Prothrombin Time 16.5 SEC (11.1-13.3)
[2023-10-26 01:21] LABS: Appearance Urine Cloudy; Color Urine Yellow; Glucose Urine UA 250 mg/dL (Negative); Leukocyte Esterase Urine Moderate (2+) (Negative); Nitrite Urine Negative (Negative); Specific Gravity - Urine <= 1.005 (1.005-1.025); UMIC TRIGGER UACC YES; Urine Blood Small (1+) (Negative); Urine Ketones Negative (Negative); Urine Protein Negative (Neg-Trace)
[2023-10-26 01:24] LABS: Alanine Aminotransferase 16 U/L (0-31); Albumin Level 3.6 g/dL (3.5-5.0); Alkaline Phosphatase 115 U/L (39-117); Anion Gap 11 (12-20); Aspartate Amino Transferase 13 U/L (5-31); Bilirubin Total 0.4 mg/dL (0.0-1.0); Blood Urea Nitrogen 16 mg/dL (9-16); Calcium 9.3 mg/dL (8.4-10.2); Carbon Dioxide 36 mmol/L (22-29); Chloride 95 mmol/L (96-108); Creatinine Clr Calc Pharmacy 86.4; Estimated Glomerular Filt Rate > 60; Glucose Random 295 mg/dL (60-115); Potassium 4.2 mmol/L (3.3-5.1); Sodium 138 mmol/L (135-145)
[2023-10-26 01:30] LABS: B Type Natriuretic Peptide 128 pg/mL (<100)
[2023-10-26 01:31] LABS: Troponin-I High Sensitivity 14.3 ng/L (<3.5-17.0)
[2023-10-26 01:32] LABS: Bacteria Urine 4+ (None Seen); Hyaline Casts Urine 0-2 /LPF (0-2); Squamous Epithelial Cell Urine 0-2 /HPF (0-2); UACC Culture Trigger YES
[2023-10-26 01:46] LABS: Influenza A PCR NEGATIVE (Negative); Influenza B PCR NEGATIVE (Negative); Resp Syncy Virus RNA Qual PCR NEGATIVE (Negative); SARS COV2 PCR INHOUSE NEGATIVE (Negative)
--- NOTE | 2023-10-26 01:53 | ED_ITS ---
HPI - SOB/Dyspnea General Chief Complaint: Dyspnea Stated Complaint: sob Time Seen by Provider: 10/26/23 01:35 Source: patient and EMS Mode of arrival: EMS Limitations: no limitations History of Present Illness HPI Narrative: 73-year-old female with history of COPD using supplemental oxygen at home, patient also with history of congestive heart failure presented for 3-4 days of difficulty breathing and increased wheezing with increased productive coughing with green sputum, no fever, no chills call 911 found by EMS to be hypoxic in the room air 70-80%, patient here is speaking in full sentence found to have O2 sat of 94% with 2 L of oxygen however when I interviewed the patient O2 went down to 85% with the supplemental oxygen with good wave. Patient has no chest pain, no fever, no chills. Patient is scheduled to have an appointment with PCP tomorrow. Patient ran out of her albuterol. Related Data Home Medications ?Medication ?Instructions ?Recorded ?Confirmed albuterol sulfate 90 mcg/actuation 2 puff inhalation Q4-6H PRN 01/23/21 01/27/23 aerosol inhaler (Proventil HFA) Wheezing apixaban 5 mg tablet (Eliquis) 5 mg PO BID 01/23/21 01/27/23 lisinopril 5 mg tablet 5 mg PO DAILY 01/23/21 01/27/23 aspirin 81 mg tablet,delayed 81 mg PO DAILY 10/24/21 01/27/23 release insulin glargine 100 unit/mL (3 70 unit subcut DAILY 10/24/21 01/27/23 mL) subcutaneous pen (Lantus Solostar U-100 Insulin) furosemide 40 mg tablet 80 mg PO DAILY 03/09/22 01/27/23 metoprolol tartrate 50 mg tablet 50 mg PO BID 03/09/22 01/27/23 dulaglutide 0.75 mg/0.5 mL 0.75 mg subcut TU 10/23/22 01/27/23 subcutaneous pen injector (Trulicity) insulin lispro 100 unit/mL 1 sliding scale dose subcut QIDACHS 10/23/22 01/27/23 subcutaneous pen (Humalog KwikPen (U-100) Insulin) acetaminophen 325 mg tablet 650 mg PO Q6H PRN Pain 01/27/23 01/27/23 ergocalciferol (vitamin D2) 1,250 1,250 mcg PO TH 01/27/23 01/27/23 mcg (50,000 unit) capsule fluticasone furoate 200 1 ea inhalation DAILY 01/27/23 01/27/23 mcg-vilanterol 25 mcg/dose inhalation powder (Breo Ellipta) gabapentin 300 mg capsule 300 mg PO TID 01/27/23 01/27/23 montelukast 10 mg tablet 10 mg PO BEDTIME 01/27/23 01/27/23 oxybutynin chloride 5 mg 5 mg PO BEDTIME 01/27/23 01/27/23 tablet,extended release 24 hr sennosides 8.6 mg-docusate sodium 2 tab PO BEDTIME PRN constipation 01/27/23 01/27/23 50 mg tablet (Senexon-S) Previous Rx's ?Medication ?Instructions ?Recorded albuterol sulfate 2.5 mg/3 mL 2.5 mg (3 mL) inhalation Q4-6H PRN 07/25/22 (0.083 %) solution for nebulization shortness of breath or wheezing #75 mL albuterol sulfate 2.5 mg/3 mL 2.5 mg (3 mL) inhalation Q4-6H PRN 10/26/23 (0.083 %) solution for nebulization bronchospasm #90 mL albuterol sulfate 90 mcg/actuation 2 puff inhalation Q6H PRN 10/26/23 aerosol inhaler shortness of breath or wheezing #8.5 grams doxycycline hyclate 100 mg tablet 100 mg PO BID #14 tabs 10/26/23 guaifenesin 200 mg/5 mL oral liquid 200 mg (5 mL) PO Q4H PRN cough 10/26/23 #118 mL prednisone 20 mg tablet 20 mg PO BID #10 tabs 10/26/23 Allergies Allergy/AdvReac Type Severity Reaction Status Date / Time silver sulfadiazine Allergy Unknown UNK Verified 10/26/23 00:46 [From TRINY] Review of Systems 2 Review of Systems: All other systems are reviewed and are negative Constitutional: Reports as per HPI and Reports no additional constitutional complaints Eyes: Reports as per HPI and Reports no additional eye complaints Reports system reviewed and no additional complaints, except as documented Cardiovascular: Reports as per HPI and Reports no additional cardiovascular complaints Respiratory: Reports as per HPI and Reports no additional respiratory complaints Gastrointestinal: Reports as per HPI and Reports no additional gastrointestinal complaints Genitourinary: Reports no additional female genitourinary complaints Musculoskeletal: Reports no additional musculoskeletal complaints Skin/Breast: Reports system reviewed and no additional complaints, except as docu Psychiatric: Reports no additional psychiatric complaints Endocrine: Reports no additional endocrine complaints Hematologic/Lymphatic: Reports no additional hematologic/lymphatic complaints Allergic/Immunologic: Reports no additional allergic/immunologic complaints Reports system reviewed and no additional complaints, except as documented and Reports Abnormal speech present [facility] Past Medical History Medical History Chronic hypoxemic respiratory failure Obstructive sleep apnea Hypotonic neurogenic bladder Chronic heart failure with preserved ejection fraction (HFpEF) Diarrhea Bacteriuria Chronic UTI UTI (urinary tract infection) Non-rheumatic aortic stenosis Aortic stenosis Paroxysmal atrial fibrillation H/O: CVA (cerebrovascular accident) Glaucoma Severe sepsis Obesity Osteoarthritis COPD (chronic obstructive pulmonary disease) Chronic UTI Chronic indwelling Molina catheter Diabetes Hypertension Congestive heart failure Surgical History H/O enucleation of left eyeball H/O adenoidectomy History of tonsillectomy Family History Family History Father No problems noted. Mother No problems noted. Social History Social History Household Members: None Housing: Apartment Do you presently have visiting nurse or other home services: Yes (care givers) Unable to assess alcohol history related to: Unknown Alcohol intake: never Patient Tobacco Use Status: Never used Tobacco Smoked in Last 30 Days: No Second Hand Smoke Exposure: No Use of substances other than those prescribed or required for medical reasons: No Advance Directives: Yes Advance Directives on File: Yes Advance Directives Date on File: 07/09/20 service: No Current occupational status: disabled Physical Exam 2 Vital Signs: Vital Signs: Last Vital Signs Temp 97.7 F 10/26/23 03:36 Pulse 77 10/26/23 03:36 Resp 17 10/26/23 03:36 BP 145/63 H 10/26/23 03:36 Pulse Ox 94 10/26/23 03:36 O2 Del Method Nasal Cannula 10/26/23 03:36 O2 Flow Rate 2 10/26/23 03:36 Oxygen Flow Rate 2 10/26/23 00:45 BMI result Body Mass Index 46.9 Vital signs have been reviewed and appear to be correct. Blood pressure elevated. Heart rate normal. Respiratory rate normal. Temperature normal. Oxygen saturation normal. Appearance: Alert. Oriented X3. No acute distress. Head: Normal external exam. Normocephalic. Atraumatic. No Augustin signs noted. No raccoon eyes noted Eyes: PERRLA. EOMI. Conjunctiva and sclera normal. Eyelids normal. ENT: TM's Normal. Pharynx normal. Uvula midline. Moist mucous membranes. No trismus noted. No drooling noted. No muffled voice noted. Neck: Normal inspection. Neck supple. FROM. No adenopathy. Thyroid Normal. No meningeal signs. No neck mass noted. CVS: Normal heart rate and rhythm. Heart sound normal. No murmurs noted. Pulses normal throughout. Respiratory: No respiratory distress. Painless inspiration. Breath sounds normal. Prolonged expiration with expiratory wheezing diffusely bilaterally. Chest nontender. No accessory muscle usage noted or decreased air movement noted. Abdomen: Soft and nontender. Bowel sounds normal in all 4 quadrants. No distention noted. No organomegaly noted. No visible injury noted. Back: No CVA tenderness. Full range of motion noted. Skin: Skin warm and dry. Normal skin color. Normal skin turgor. No rashes/lesions/lacerations noted. Extremities: No lower extremity edema. Extremities exhibit normal range of motion. Extremities nontender. Neuro: Oriented X 3. Cranial nerve exam: II-XII are grossly intact No motor deficit. No sensory deficit. Reflexes normal. Course Reevaluation(s) Reevaluation #1: History of COPD, found to be hypoxic, no chest x-ray evidence of pneumonia. Will admit for further bronchodilator therapy, Solu-Medrol, empirical antibiotic, IV magnesium. Time: 01:57 Reevaluation #2: Patient now feels better, declining hospitalization after was interviewed by the hospitalist Dr. Guerra, patient insists to be discharge because her electrical wheelchair will be delivered at 09:00 to her house. Patient was instructed to follow-up with her PCP were refer to telecommunications specialist Dr. Alejandro Jacobson, prescribe short course of prednisone and albuterol. Will recommend also to use supplemental oxygen via nasal cannula 30/01. Time: 05:46 Medications Administered Discontinued Medications Generic Name Dose Route Start Last Admin Trade Name Angeles PRN Reason Stop Dose Admin Acetaminophen 975 mg 10/26/23 03:39 10/26/23 03:43 Acetaminophen 325 Mg Tablet PO 10/26/23 03:40 975 mg ONCE ONE Administration Albuterol/Ipratropium 3 ml 10/26/23 02:02 10/26/23 02:06 Albuterol/Iprat 2.5/0.5mg 3 Ml Ampul.Neb INHALE 10/26/23 02:03 3 ml ONCE ONE Administration Guaifenesin/Codeine Phosphate 10 ml 10/26/23 01:51 10/26/23 02:15 Guaifen/Codeine Sf 200/20/10ml 10 Ml Liquid PO 10/26/23 01:52 10 ml ONCE ONE Administration Doxycycline Hyclate 100 mg/ 250 mls @ 166.67 mls/hr 10/26/23 01:51 10/26/23 03:50 Sodium Chloride IV 10/26/23 03:20 Infused ONCE ONE Infusion Magnesium Sulfate 2 gm in 50 mls @ 25 mls/hr 10/26/23 01:51 10/26/23 04:07 Magnesium Sulfate/H2o IV 10/26/23 03:50 Infused ONCE ONE Infusion Methylprednisolone Sodium Succinate 125 mg 10/26/23 01:51 10/26/23 02:15 Methylprednisolone Sod Succ 125 Mg/2 Ml Vial IVPUSH 10/26/23 01:52 125 mg ONCE ONE Administration Medical Decision Making Differential Diagnosis Differential Diagnoses: The differential diagnosis associated with the presentation includes (COPD exacerbation, congestive heart failure, ACS, viral upper respiratory infection, pneumonia, pneumothorax, hypoxia.) Admission/Observation Consideration of admission/observation: Escalation of care including admission/observation considered Consult Healthcare Provider Management of the patient was discussed with: Hospitalist (Dr. Guerra) Lab Data MDM Lab Attestation statement: I reviewed the patient's lab results. 10/26/23 01:04 10/26/23 01:04 Labs: Lab Results 10/26/23 10/26/23 10/26/23 Range/Units 01:04 01:06 01:14 WBC 8.8 (4.8-10.8) X10*3/uL RBC 5.64 H (4.20-5.50) X10*6/uL Hgb 13.1 (12.0-16.0) g/dl Hct 43.9 (37.0-47.0) % MCV 77.8 L (80.0-98.0) fL MCH 23.2 L (27.0-33.0) pg MCHC 29.8 L (31.0-35.0) g/dl RDW 18.7 H (11.0-16.0) % Plt Count 181 (160-400) X10*3/uL MPV 10.6 (9.4-12.3) fL Immature Gran % (Auto) 0.2 (0.0-0.4) % Neut % (Auto) 66.4 (45-73) % Lymph % (Auto) 22.1 (20-40) % Cross % (Auto) 8.5 (2-11) % Eos % (Auto) 2.5 (0-4) % Baso % (Auto) 0.3 (0-2) % Lymph # (Auto) 1.9 (1.2-4.9) X10*3/uL Cross # (Auto) 0.8 (0.1-1.2) X10*3/uL Eos # (Auto) 0.2 (0.0-0.4) X10*3/uL Baso # (Auto) 0.0 (0.0-0.2) X10*3/uL Abs Immat Gran (auto) 0.02 (0.00-0.03) X10*3/uL Absolute Neuts (auto) 5.8 (2.0-8.3) x10*3/uL Absolute Nucleated RBC 0.000 (0.0-0.012) X10*3/uL Nucleated RBC % (auto) 0.0 (0.0-0.2) /100WBC PT 16.5 H (11.1-13.3) SEC INR 1.4 H (0.9-1.1) VBG pH 7.44 H (7.32-7.43) VBG pCO2 59 mmHg VBG pO2 79 mmHg VBG HCO3 40 H (22-26) mmol/L VBG O2 Saturation 98.0 % VBG Base Excess 13.5 mmol/L Sodium 138 (135-145) mmol/L Potassium 4.2 (3.3-5.1) mmol/L Chloride 95 L (96-108) mmol/L Carbon Dioxide 36 H (22-29) mmol/L Anion Gap 11 L (12-20) BUN 16 (9-16) mg/dL Creatinine 0.82 (0.5-1.4) mg/dL Estim Creat Clear Calc 86.4 Estimated GFR > 60 Random Glucose 295 H (60-115) mg/dL Calcium 9.3 D (8.4-10.2) mg/dL Total Bilirubin 0.4 (0.0-1.0) mg/dL AST 13 (5-31) U/L ALT 16 (0-31) U/L Alkaline Phosphatase 115 (39-117) U/L Troponin I High Sens 14.3 (<3.5-17.0) ng/L B-Natriuretic Peptide 128 H (<100) pg/mL Total Protein 7.0 (6.5-8.0) g/dL Albumin 3.6 (3.5-5.0) g/dL Urine Color Yellow Urine Appearance Cloudy Urine pH 7.0 (5.0-9.0) Ur Specific [place] <= 1.005 (1.005-1.025) Urine Protein Negative (Neg-Trace) mg/dL Urine Glucose (UA) 250 H (Negative) mg/dL Urine Ketones Negative (Negative) mg/dL Urine Blood Small (1+) H (Negative) Urine Nitrite Negative (Negative) Ur Leukocyte Esterase Moderate (2+) H (Negative) Urine RBC 3-5 H (0-2) /HPF Urine WBC 11-20 H (0-5) /HPF Ur Squamous Epith Cells 0-2 (0-2) /HPF Urine Bacteria 4+ (None Seen) Hyaline Casts 0-2 (0-2) /LPF Influenza Type A (PCR) NEGATIVE (Negative) Influenza Type B (PCR) NEGATIVE (Negative) RSV RNA Qual (PCR) NEGATIVE (Negative) SARS-CoV-2 RNA (RT-PCR) NEGATIVE (Negative) Independent Interpretation I performed an independent interpretation of an: Plain X-Ray (Chest:Prominent central vasculature and surrounding interstitium, similar to prior and suggesting a degree of congestion. No new consolidation. ) Radiology Impression Discussion of test interpretation with radiology: I have reviewed the radiologist's reading. External Record Review External record reviewed: Inpatient record Chronic Conditions Patient?s care impacted by: Other (COPD/CHF.) Critical Care Time Critical Care Time Critical Care Time: Yes Total Critical Care Time: 30 Attestation: The patient was critically ill with a high probability of imminent or life- threatening deterioration. I spent greater than 30 minutes of discontinuous time evaluating the patient, delivering critical care at the bedside, discussing evaluating data with consultants. Critical care time does not include time spent performing separately billable procedures or teaching. Time spent performing critical care was 30 minutes. Discharge Plan Discharge Clinical Impression: Acute exacerbation of chronic obstructive pulmonary disease Patient Disposition: Home, Self-Care Additional Instructions: Use your supplemental oxygen around the clock / keep your oxygenation above 92%. Prescriptions: New albuterol sulfate 90 mcg/actuation HFA aerosol inhaler 2 puff inhalation Q6H PRN (Reason: shortness of breath or wheezing) Qty: 8.5 0RF albuterol sulfate 2.5 mg /3 mL (0.083 %) solution for nebulization 2.5 mg inhalation Q4-6H PRN (Reason: bronchospasm) Qty: 90 0RF prednisone 20 mg tablet 20 mg PO BID Qty: 10 0RF doxycycline hyclate 100 mg tablet 100 mg PO BID Qty: 14 0RF guaifenesin 200 mg/5 mL liquid 200 mg PO Q4H PRN (Reason: cough) Qty: 118 0RF No Action lisinopril 5 mg tablet 5 mg PO DAILY albuterol sulfate [Proventil HFA] 90 mcg/actuation HFA aerosol inhaler 2 puff inhalation Q4-6H PRN (Reason: Wheezing) Eliquis 5 mg tablet 5 mg PO BID albuterol sulfate 2.5 mg /3 mL (0.083 %) solution for nebulization 2.5 mg inhalation Q4-6H PRN (Reason: shortness of breath or wheezing) Qty: 75 0RF insulin glargine [Lantus Solostar U-100 Insulin] 100 unit/mL (3 mL) insulin pen 70 unit subcut DAILY aspirin 81 mg Tablet,Delayed Release (Dr/Ec) 81 mg PO DAILY metoprolol tartrate 50 mg tablet 50 mg PO BID furosemide 40 mg tablet 80 mg PO DAILY insulin lispro [Humalog KwikPen Insulin] 100 unit/mL insulin pen 1 sliding scale dose subcut QIDACHS Protocol: Insulin Correction Scale Less than or equal to 110 ---- Give (units): 0 111 to 150 Give (units): 0 151 to 200 Give (units): 2 201 to 250 Give (units): 4 251 to 300 Give (units): 6 301 to 350 Give (units): 8 Greater than 350 Give (units): 10 Call MD if Blood Glucose > : 350 Trulicity 0.75 mg/0.5 mL pen injector 0.75 mg subcut TU acetaminophen 325 mg tablet 650 mg PO Q6H PRN (Reason: Pain) sennosides-docusate sodium [Senexon-S] 8.6-50 mg tablet 2 tab PO BEDTIME PRN (Reason: constipation) oxybutynin chloride 5 mg tablet extended release 24hr 5 mg PO BEDTIME gabapentin 300 mg capsule 300 mg PO TID montelukast 10 mg tablet 10 mg PO BEDTIME ergocalciferol (vitamin D2) 1,250 mcg (50,000 unit) capsule 1,250 mcg PO TH fluticasone furoate-vilanterol [Breo Ellipta] 200-25 mcg/dose blister with device 1 ea INHALATION DAILY Print Language: Unable To Collect
[2023-10-26 02:06] VITALS: PULSE 75; RESP 18; O2SAT 95
[2023-10-26] MEDS: Albuterol/Iprat 2.5/0.5MG 3 ML AMPUL.NEB INHALE (02:06)
[2023-10-26] MEDS: guaiFEN/Codeine SF 200/20/10ML 10 ML LIQUID PO (02:15)
[2023-10-26] MEDS: methylPREDNISolone Sod Succ 125 MG/2 ML VIAL IVPUSH (02:15)
[2023-10-26] MEDS: Doxycycline Hyclate 100 MG in 0.9 % Sodium Chloride 250 ML 166.67 MG IV (02:17)
[2023-10-26] MEDS: Magnesium Sulfate/H2O 2 GM/50 ML PIGGYBACK IV (02:18)
[2023-10-26 03:36] VITALS: BP 145/63; PULSE 77; RESP 17; TEMP 36.5; O2SAT 94
[2023-10-26] MEDS: Acetaminophen 325 MG TABLET 975 MG PO (03:43)
--- NOTE | 2023-10-26 05:53 | PC.NURSE ---
Pt refusing admission, MD aware, planning for DC back to facility.
[2023-10-26 06:05] VITALS: BP 158/73; PULSE 73; RESP 14; TEMP 36.6; O2SAT 93
[2023-10-26 06:57] VITALS: BP 155/75; PULSE 75; RESP 18; TEMP 36.8; O2SAT 95
--- NOTE | 2023-10-26 08:07 | PHA.MEDREC ---
Pharmacy Consult ? Medication Reconciliation Pharmacy has completed the medication reconciliation.
== END 2023-10-26 06:59 | disposition home or self-care (01) ==
PROVIDERS: Emergency Provider Emergency Medicine; PCP Family Medicine
DX: J44.1 Chronic obstructive pulmonary disease with (acute) exacerbation (principal); J96.11 Chronic respiratory failure with hypoxia; I11.0 Hypertensive heart disease with heart failure; I50.32 Chronic diastolic (congestive) heart failure; E11.9 Type 2 diabetes mellitus without complications; Z99.81 Dependence on supplemental oxygen
CPT/HCPCS: 0241U; 71045; 80053; 81001; 82803; 83880; 84484; 85025; 85610; 87086; 93005; 94640; 96365; 96366; 96375; 99285; J2919; J3475

== ENCOUNTER → 2023-10-26 00:42 | Outpatient (BNV) | payer MEDICARE, MEDICAID, SELFPAY | PROVIDERS: Emergency Provider Emergency Medicine; PCP Family Medicine; Visit Provider Internal Medicine | DX: R06.02 Shortness of breath (principal) | CPT/HCPCS: 93010 ==

== ENCOUNTER 2023-12-01 11:08 | Outpatient (AMB) | payer MEDICARE, MEDICAID, SELFPAY ==
--- NOTE | 2023-12-01 11:11 | MHC.OFFVIS ---
Vital Signs 12/01/23 11:12 Height 5 ft 6 in BMI Reason not done Patient refused/unable BP 130/82 Blood Pressure Location Lt radial Position Sitting Pulse 63 Pulse Source Pulse Oximeter Pulse Oximetry (%) 89 L Oxygen Delivery Method Room Air Intake Visit Reasons: S/P Hosp DC Follow Up/Hypoxia/COPD Allergies silver sulfadiazine [From SILVADENE] Allergy (Unknown, Verified 12/01/23 11:17) UNK HPI HPI S/P Hosp DC Follow Up/Hypoxia/COPD: Details: Aleah is a pleasant 72-year-old female, never smoker, with underlying congestive heart failure with preserved ejection fraction, HTN, DMII, chronic hypoxemic respiratory failure due to COPD on 2 L supplemental oxygen, atrial fibrillation on Eliquis, neurogenic bladder with chronic rai and morbid obesity. She was referred by [facility] after patient with recent admission on 10/23-10/25 for acute CHF exacerbation and COPD exacerbation. Treated with IV lasix and IV steroids, discharged on 80 mg lasix and po prednisone. She reports feeling back to baseline, reporting dyspnea with minimal exertion, intermittent wheezing and occasional productive cough with clear sputum. She has been moderately controlled on Breo, albuterol MDI/nebs and singulair. She reports asthma since childhood, never requiring intubations related to respiratory distress. She was previously under the care of pulmonology at [facility], reports prior PFT. No report available today. She reports being on supplemental oxygen for many years, has a concentrator at home through [facility], but no portable tanks. Upon arrival to the exam room, she was hypoxic at 85% on room air, placed on 1.5L recovering quickly to 94%. She reports using 2-3L continuously as well as NOC. 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 She denies any pertinent family history. She reports seasonal allergies that are mild, controlled with singulair and not interested in allergy testing at this time. She reports a slip and fall accident in resulting in multiple injuries. She had used a cane for many years after but has been essentially wheelchair/bedbound for the past 15 years, significantly deconditioned. At home, family using a alex lift and recently has been doing active range of motion with PT. She reports h/o ERICKA but not interested in updated sleep study, unknown severity of ERICKA. Last sleep study 10+ years ago. [facility] Medical History (Updated 12/02/23 @ 12:55 by Lyn Alvarado NP) Chronic hypoxemic respiratory failure Obstructive sleep apnea Hypotonic neurogenic bladder Chronic heart failure with preserved ejection fraction (HFpEF) Diarrhea Bacteriuria Chronic UTI UTI (urinary tract infection) Non-rheumatic aortic stenosis Aortic stenosis Paroxysmal atrial fibrillation H/O: CVA (cerebrovascular accident) Glaucoma Severe sepsis Obesity Osteoarthritis COPD (chronic obstructive pulmonary disease) Chronic UTI Chronic indwelling Rai catheter Diabetes Hypertension Congestive heart failure Surgical History H/O enucleation of left eyeball H/O adenoidectomy History of tonsillectomy Family History Father No problems noted. Mother No problems noted. Social History Household Members: None Housing: Apartment Do you presently have visiting nurse or other home services: Yes (care givers) Unable to assess alcohol history related to: Unknown Alcohol intake: never Patient Tobacco Use Status: Never used Tobacco Second Hand Smoke Exposure: No Advance Directives Date on File: 07/09/20 service: No Current occupational status: disabled Review of Systems Const Denies chills, Denies excessive sweating, Denies fever(s), Denies headache(s) and Denies night sweats Eyes Denies dry eyes, Denies irritation and Denies itchy eyes ENT Reports Normal hearing present, Denies headache(s), Denies nasal congestion, Denies nasal discharge and Denies sore throat Card Denies chest pain, Denies chest pain at rest, Denies chest pain with activity, Denies claudication, Reports dyspnea on exertion and Denies paroxysmal nocturnal dyspnea Resp Denies chest congestion, Reports cough, Denies hemoptysis, Denies excessive phlegm production, Denies pain on inspiration, Denies pain with cough, Reports dyspnea on exertion, Denies stridor and Reports wheezing Musc Denies myalgias Neuro Reports Normal hearing present and Denies headache(s) Endo Denies excessive sweating Miguel/Lymph Denies lymphadenopathy Aller/Immun Denies itchy eyes, Denies seasonal rhinorrhea and Reports wheezing Physical Exam Vital Signs: Last Vital Signs Pulse 63 12/01/23 11:12 BP 130/82 12/01/23 11:12 Pulse Ox 89 L 12/01/23 11:12 Oxygen Delivery Method Room Air 12/01/23 11:12 Const Other: morbidly obese, wheelchair bound General: cooperative, healthy appearing, comfortable, no acute distress, well developed and alert Nutritional Appearance: obese Orientation/consciousness: patient oriented x3 HEENT Head: Yes normal to inspection, Yes normocephalic and Yes atraumatic Ears: hearing grossly normal bilaterally and external ears normal Neck Neck: Yes normal visual inspection and Yes no lymphadenopathy Lymphatic: no lymphadenopathy noted Chest Chest palpation & inspection: normal inspection of the chest Resp Other: diminished lung sounds throughout, audible wheezes with position changes, no wheezing appreciated on lung exam, inspiratory crackles which cleared with cough Effort & Inspection: normal respiratory effort, able to speak in complete sentences, no cough, no stridor, not tachypneic, no tripod positioning and no use of accessory muscles Cardio Jugular venous distension: no JVD Rate: regular rate Rhythm: regular rhythm Skin Other: warm, dry General skin exam: no rashes or lesions noted Neuro General: patient oriented x3 Cranial nerves: Yes Normal hearing present Cognition (Neuro): normal cognition Extrem Other: 1+ edema BLE Psych Appearance: grossly normal and well kempt Speech and movement: Normal speech and movement present and Clear speech present Affect: normal affect Attitude: cooperative Thought process: Normal thought process present Thought content: Normal thought content present Insight: Good insight present (Psych) Judgement: Good judgement present (Psych) Results Reviewed Results Reviewed: [address] [address] XRay Report Signed Patient: Aleah Connor MR#: [id number] : 1950 Acct:[id number] Age/Sex: 73 / F ADM Date: 10/26/23 Loc: HO.ED Attending Dr: Ordering Physician: Gaudencio Duke MD Date of Service: 10/26/23 Procedure(s): XR chest 1V Accession Number(s): [id number] cc: Gaudencio Duke MD~ EXAMINATION: XR CHEST CLINICAL INFORMATION: Cough, dyspnea, hypoxia COMPARISON: 12/27/2022 TECHNIQUE: Frontal view of the chest was obtained. FINDINGS: Lung volumes are symmetric. No focal consolidation is seen. Prominence of the central vasculature and surrounding interstitium is similar to prior. No evidence of pneumothorax or significant pleural effusion. Cardiac silhouette remains prominent. Degenerative changes in the bilateral glenohumeral joints. XR/XR chest 1V IMPRESSION: Prominent central vasculature and surrounding interstitium, similar to prior and suggesting a degree of congestion. No new consolidation. Dictated By: Trell Olguin MD Signed By: <Electronically signed by Trell Olguin MD in OV> 10/26/23 0148 DD/ 0105 TD/TT: Wildfire Prevention Specialist: Assessment & Plan Assessment & Plan (1) Asthma: Code(s): J45.909 - Unspecified asthma, uncomplicated Category: Medical (2) Chronic hypoxemic respiratory failure: Code(s): J96.11 - Chronic respiratory failure with hypoxia Category: Medical (3) Congestive heart failure: Code(s): I50.9 - Heart failure, unspecified Category: Medical (4) Nocturnal hypoxemia: Code(s): G47.34 - Idiopathic sleep related nonobstructive alveolar hypoventilation Category: Medical (5) Hypoventilation associated with obesity: Code(s): E66.2 - Morbid (severe) obesity with alveolar hypoventilation Category: Medical Plan Aleah's symptoms are multifactorial with pulmonary, cardiac, deconditoning/obesity etiologies. She reports h/o COPD, never smoker, will obtain prior PFT and send for chest CT to assess for emphysema or other factors such as ILD contributing to dyspnea. Unfortunately due to patient's significant deconditioning, unlikely she would be able to perform PFT. She reports moderate control on current respiratory regimen, advised to continue. Encouraged use of incentive spirometer as patient with shallow breathing and obesity restricting ventilation. Upon arrival to exam patient hypoxic on room air 85%, placed on 1.5L recovering to 94-96% and was monitored during visit. Advised to use 1.5L continuously and maintain O2 92-94%. She is requesting portable tanks, will send prescription. She reports prior diagnosis of ERICKA, unknown severity, however is declining updated PSG. Agreeable to overnight oximetry. Will send order to [facility] to be performed on 1.5 L supplemental oxygen. Patient with significant cardiac component, had recent echo and under the care of cardiology. All questions were answered and patient is in agreement of plan. Will follow up in 4 weeks or sooner if needed. Orders: Orders Overnight Pulse Oximetry 12/01/23 G47.34 - Idiopathic sleep related nonobstructive alveolar hypoventilation CT chest wo IV con Today J96.11 - Chronic respiratory failure with hypoxia, R05.9 - Cough, unspecified Coding Level of Care Code New Pt Level 5 (86649) Diagnoses Asthma J45.909 Chronic hypoxemic respiratory failure J96.11 Congestive heart failure I50.9 Nocturnal hypoxemia G47.34 Hypoventilation associated with obesity E66.2
[2023-12-01 11:12] VITALS: BP 130/82; PULSE 63; O2SAT 89
== END 2023-12-01 12:00 | disposition home or self-care (01) ==
PROVIDERS: PCP Family Medicine; Visit Provider Nurse Practitioner Family
DX: J45.909 Unspecified asthma, uncomplicated (principal); J96.11 Chronic respiratory failure with hypoxia; I50.9 Heart failure, unspecified; G47.34 Idiopathic sleep related nonobstructive alveolar hypoventilation; E66.2 Morbid (severe) obesity with alveolar hypoventilation
CPT/HCPCS: 99204

== ENCOUNTER → 2023-12-01 11:08 | Outpatient (BNVA) | payer MEDICARE, MEDICAID, SELFPAY | PROVIDERS: PCP Family Medicine; Visit Provider Nurse Practitioner Family | DX: J96.11 Chronic respiratory failure with hypoxia (principal); J45.909 Unspecified asthma, uncomplicated; I11.0 Hypertensive heart disease with heart failure; I50.30 Unspecified diastolic (congestive) heart failure; E66.2 Morbid (severe) obesity with alveolar hypoventilation; Z99.81 Dependence on supplemental oxygen | CPT/HCPCS: 99202 ==

== ENCOUNTER 2024-01-06 08:27 | Emergency (ER) | payer MEDICARE, MEDICAID, SELFPAY ==
--- NOTE | ~2024-01-06 | CT_ITS ---
EXAMINATION: CT abdomen pelvis w IV con CLINICAL INFORMATION: Reason for Exam Abdomial pain, vomiting, r/o sbo COMPARISON: Prior CT October 2021 TECHNIQUE: Multidetector volumetric imaging was performed from the superior aspect of the liver through the pubic symphysis 100 mL of Omnipaque 350 injected Sagittal and coronal reformatted images were obtained on the technologist's workstation. This CT examination was performed using dose optimization techniques as appropriate, variously including the following: *Automated exposure control *Adjustment of mA and/or kV according to patient size (this includes techniques or standardized protocols for targeted exams where dose is matched to indication/reason for exam; i.e. extremities or head) *Use of iterative reconstruction technique DLP: 1272 mGy-cm FINDINGS: LOWER THORAX: Mild atelectasis at right and left lung base. HEPATOBILIARY: Redemonstration of heterogeneously peripherally enhancing liver lesion right lobe roughly 3 x 2.5 cm may represent a hemangioma versus other liver lesions, evaluation is limited on this single contrast CT scan. GALLBLADDER: Gallbladder unremarkable. SPLEEN: Spleen is normal in size. PANCREAS: No focal mass or ductal dilatation. STOMACH AND GASTROINTESTINAL TRACT: There is probably hiatal hernia, Stomach is grossly unremarkable. Borderline dilated the loops of small bowel mid abdomen, fecal ideation of its content suggesting slow flow, probably due to at least partial obstruction, Excess amount of stool in the colon possibly a constipation. No evidence of bowel obstruction. Appendix not visualized however there are no secondary signs to suggest acute appendicitis. ADRENALS: Bilateral hypertrophy of the adrenals without adrenal mass or nodules. This has not changed. KIDNEYS/URETERS: There is a small defect in the cortex of the left kidney might be sequela of an old injury. No kidney stone or hydronephrosis. No mass. URINARY BLADDER: Decompressed, Molina catheter in place. PELVIC VISCERA: Newly found left pelvic complex cystic mass 7.6 x 6.4 cm uncertain etiology could be of left ovarian origin, given its size and texture, further investigation is warranted starting with ultrasound. PERITONEUM: No free air or fluid. LYMPH NODES: No lymphadenopathy. VASCULAR:Abdominal aorta normal in size, no aneurysm found. BONES, ABDOMINAL WALL AND SOFT TISSUES: Spondylosis of the thoracolumbar spine. Early advanced degenerative osteoarthritis of the hip joints. No fractures. Age-appropriate changes of the spine and skeletal system, no destructive osteolytic or osteosclerotic bone lesion found CT/CT abdomen pelvis w IV con IMPRESSION: 1. Newly found left pelvic complex cystic mass 7.6 x 6.4 cm, given its size and texture, could be of left ovarian origin, cannot rule out ovarian neoplasm, further investigation recommended starting with ultrasound. 2. Mildly dilated the small bowel loops midabdomen with fecalization of its content suggesting slow flow probably partial obstruction. May consider correlation with follow-up Gastrografin small bowel follow-through 3. Excess amount of stool in the colon possibly constipation. No evidence of bowel obstruction. 4. Redemonstration of heterogeneously enhancing liver lesion 3 x 2.5 cm limited evaluation on this single phase CT scan could be hemangioma versus other liver lesions, consider correlation with follow-up ultrasound. 5. Other noncritical findings described above. (Referring physician staff is being called, by physician staff assistance, to be alerted of the above critical findings and recommendations.) 01/06/2024 11:49 AM AJ
--- NOTE | ~2024-01-06 | US_ITS ---
EXAMINATION:US pelvic complete CLINICAL INFORMATION: Reason for Exam abnormal CT scan, eval left pelvic mas COMPARISON: CT scan same day earlier. LMP: Postmenopausal FINDINGS: UTERUS: Uterus not visualized might have been removed or atrophic ADNEXA: Normal Right ovary: Not visualized might have been removed or obscured by bowel gas Left ovary: Left ovarian cystic mass mildly complex measuring up to 5.8 x 6.5 x 6.1 cm within which there is debris and/or solid component posteriorly FREE FLUID: Trace amount of free fluid. OTHER FINDINGS: None US/US pelvic complete IMPRESSION: 1. Mildly complex cystic mass left ovary measure up to 6.5 cm within which there is debris and/or solid component. Consider follow-up outpatient [employer] consultation May consider follow-up outpatient nonemergent contrast enhanced pelvic MRI, if not performed follow-up ultrasound recommended in 6 months. 2. Uterus and right ovary not visualized might have been removed or atrophic.
[2024-01-06 08:39] VITALS: BP 133/61; PULSE 75; RESP 18; TEMP 36.8; O2SAT 97; BMI 44.7
--- NOTE | 2024-01-06 08:43 | ECG_ITS ---
Test Reason : UPPER ABD PAIN Blood Pressure : / mmHG Vent. Rate : 078 BPM Atrial Rate : 078 BPM P-R Int : 192 ms QRS Dur : 102 ms QT Int : 388 ms P-R-T Axes : 021 -20 072 degrees QTc Int : 442 ms Normal sinus rhythm Moderate voltage criteria for LVH, may be normal variant ( R in aVL , [place] product ) Septal infarct (cited on or before 24-OCT-2021) Abnormal ECG When compared with ECG of 26-OCT-2023 00:42, Premature supraventricular complexes are no longer Present Questionable change in initial forces of Septal leads Referred By: Eden De Paz Electronically Signed By:CAMERON HO MD
--- NOTE | 2024-01-06 08:47 | ED_ITS ---
HPI - Abdominal Pain General Chief Complaint: GI Bleed Stated Complaint: BROWN VOMIT,ABD PAIN PER EMS Time Seen by Provider: 01/06/24 08:34 Source: patient and EMS Mode of arrival: EMS Limitations: no limitations History of Present Illness ED Provider: Eden De Paz APRN HPI narrative: 73-year-old female with a history of congestive heart failure, diabetes, hypertension, COPD on chronic oxygen, AFib on Eliquis, chronic Molina presents to the ER with complaints generalized abdominal pain and vomiting which began several hours ago. Patient reports she had a normal bowel movement yesterday. She is passing gas. She denies any fevers, chills, urinary symptoms. No recent travel or sick contact. Denies abdominal surgical history. She reports her emesis is brown in color. She denies any black or bloody stools. She is on both Eliquis and aspirin. Related Data Home Medications ?Medication ?Instructions ?Recorded ?Confirmed albuterol sulfate 90 mcg/actuation 2 puff inhalation Q4-6H PRN 01/23/21 10/26/23 aerosol inhaler (Proventil HFA) Wheezing apixaban 5 mg tablet (Eliquis) 5 mg PO BID 01/23/21 10/26/23 aspirin 81 mg tablet,delayed 81 mg PO DAILY 10/24/21 10/26/23 release insulin glargine 100 unit/mL (3 70 unit subcut DAILY 10/24/21 10/26/23 mL) subcutaneous pen (Lantus Solostar U-100 Insulin) furosemide 40 mg tablet 80 mg PO DAILY 03/09/22 10/26/23 dulaglutide 0.75 mg/0.5 mL 0.75 mg subcut TU 10/23/22 10/26/23 subcutaneous pen injector (Trulicity) insulin lispro 100 unit/mL 1 sliding scale dose subcut QIDACHS 10/23/22 10/26/23 subcutaneous pen (Humalog KwikPen (U-100) Insulin) acetaminophen 325 mg tablet 650 mg PO Q6H PRN Pain 01/27/23 01/27/23 ergocalciferol (vitamin D2) 1,250 1,250 mcg PO TH 01/27/23 10/26/23 mcg (50,000 unit) capsule fluticasone furoate 200 1 ea inhalation DAILY 01/27/23 10/26/23 mcg-vilanterol 25 mcg/dose inhalation powder (Breo Ellipta) gabapentin 300 mg capsule 300 mg PO TID 01/27/23 10/26/23 montelukast 10 mg tablet 10 mg PO BEDTIME 01/27/23 10/26/23 oxybutynin chloride 5 mg 5 mg PO BEDTIME 01/27/23 10/26/23 tablet,extended release 24 hr losartan 25 mg tablet 25 mg PO DAILY 10/26/23 10/26/23 metoprolol succinate 50 mg 50 mg PO DAILY 10/26/23 10/26/23 tablet,extended release 24 hr lisinopril 5 mg tablet 5 mg PO DAILY 12/01/23 Previous Rx's ?Medication ?Instructions ?Recorded albuterol sulfate 2.5 mg/3 mL 2.5 mg (3 mL) inhalation Q4-6H PRN 07/25/22 (0.083 %) solution for nebulization shortness of breath or wheezing #75 mL albuterol sulfate 90 mcg/actuation 2 puff inhalation Q6H PRN 10/26/23 aerosol inhaler shortness of breath or wheezing #8.5 grams doxycycline hyclate 100 mg tablet 100 mg PO BID #14 tabs 10/26/23 guaifenesin 200 mg/5 mL oral liquid 200 mg (5 mL) PO Q4H PRN cough 10/26/23 #118 mL prednisone 20 mg tablet 20 mg PO BID #10 tabs 10/26/23 Allergies Allergy/AdvReac Type Severity Reaction Status Date / Time silver sulfadiazine Allergy Unknown UNK Verified 01/06/24 08:41 [From TRINY] Review of Systems Review of Systems Yes all other systems are reviewed and are negative Constitutional: Reports no additional constitutional complaints, Denies body ache(s), Denies chills, Denies fever(s), Denies headache(s) and Denies weakness Eyes: Reports no additional eye complaints and Denies change in vision Reports system reviewed and no additional complaints, except as documented, Denies dizziness, Denies headache(s), Denies nasal congestion, Denies nasal discharge and Denies neck pain Cardiovascular: Reports no additional cardiovascular complaints, Denies chest pain, Denies leg edema and Denies dyspnea Respiratory: Reports no additional respiratory complaints, Denies cough and Denies dyspnea Gastrointestinal: Reports no additional gastrointestinal complaints, Reports abdominal pain, Denies melena, Denies diarrhea, Reports nausea and Reports vomiting Genitourinary: Reports no additional female genitourinary complaints and Denies urinary incontinence Musculoskeletal: Reports no additional musculoskeletal complaints, Denies back pain, Denies arthralgias, Denies joint swelling, Denies neck pain, Denies numbness and Denies tingling Skin/Breast: Reports system reviewed and no additional complaints, except as docu and Denies rash Reports system reviewed and no additional complaints, except as documented, Denies Abnormal speech present, Denies dizziness, Denies headache(s), Denies numbness, Denies tingling and Denies weakness PMFSH Past Medical History Attestation statement: The following information was validated with the patient. Source: old records reviewed and nursing notes reviewed Medical History Chronic hypoxemic respiratory failure Obstructive sleep apnea Hypotonic neurogenic bladder Chronic heart failure with preserved ejection fraction (HFpEF) Diarrhea Bacteriuria Chronic UTI UTI (urinary tract infection) Non-rheumatic aortic stenosis Aortic stenosis Paroxysmal atrial fibrillation H/O: CVA (cerebrovascular accident) Glaucoma Severe sepsis Obesity Osteoarthritis COPD (chronic obstructive pulmonary disease) Chronic UTI Chronic indwelling Molina catheter Diabetes Hypertension Congestive heart failure Surgical History H/O enucleation of left eyeball H/O adenoidectomy History of tonsillectomy Family History Family History Father No problems noted. Mother No problems noted. Social History Social History Household Members: None Housing: Apartment Do you presently have visiting nurse or other home services: Yes (care givers) Unable to assess alcohol history related to: Unknown Alcohol intake: never Patient Tobacco Use Status: Never used Tobacco Smoked in Last 30 Days: No Second Hand Smoke Exposure: No Use of substances other than those prescribed or required for medical reasons: No Advance Directives: Yes Advance Directives on File: Yes Advance Directives Date on File: 07/09/20 service: No Current occupational status: disabled Physical Exam ED Vital Signs: Vital Signs - 24 hr 01/06/24 08:39 01/06/24 08:53 01/06/24 11:45 Temperature 98.3 F Pulse Rate 75 77 85 Respiratory Rate 18 18 24 H Blood Pressure 133/61 139/57 L 139/79 Pulse Oximetry 97 96 95 Oxygen Delivery Method Nasal Cannula Nasal Cannula Nasal Cannula Oxygen Flow Rate 3 2 01/06/24 14:10 Temperature Pulse Rate 72 Respiratory Rate 14 Blood Pressure 129/52 L Pulse Oximetry 89 L Oxygen Delivery Method Nasal Cannula Oxygen Flow Rate 2 BMI result Body Mass Index 44.7 Const General: cooperative, healthy appearing, comfortable and no acute distress Orientation/consciousness: patient oriented x3 Limitations: no limitations HENMT Head: Yes normal to inspection Ears: hearing grossly normal bilaterally General nose exam: Normal external nose present Face and sinus: Yes normal facial exam Mouth: Normal oral and palatal mucosa present Throat: Yes posterior oropharynx normal Eyes General: appearance normal, both eyes and all related structures Pupils: Equal, round and reactive pupils present Neck Neck: Yes normal visual inspection Chest Chest palpation & inspection: normal inspection of the chest Resp Effort & Inspection: normal respiratory effort Auscultation: clear to auscultation bilaterally Cardio Rate: regular rate Rhythm: regular rhythm Peripheral pulses: Peripheral pulses 2+ throughout GI Other: Brown stool on rectal exam Inspection: Yes normal to inspection Palpation (GI): Soft to palpation and Tenderness to palpation present (GI) (Diffusely tender) Auscultation: normal bowel sounds Back/Spine/Pelvis Thoracic/Lumbar Spine: thoracic and lumbar spine normal to inspection Skin General skin exam: no rashes or lesions noted Neuro General: patient oriented x3, no focal motor deficits and normal sensation to monofilament Cranial nerves: Yes Equal, round and reactive pupils present Cognition (Neuro): normal cognition Speech: No Abnormal speech present Gait exam (Neuro): Normal gait present Motor exam (neuro): 5/5 motor strength present throughout Extrem General: Yes normal to inspection Course Course Course Narrative: 1159-CT concerning for left pelvic mass can not rule out ovarian neoplasm. Recommend pelvic ultrasound does follow-up. CT also shows a partial bowel obstruction. Will need consult with both General surgery and Gynecology. Patient with multiple episodes of vomiting requiring anti emetic. May benefit from NG tube Reevaluation(s) Reevaluation #1: Pelvic US shows IMPRESSION: 1. Mildly complex cystic mass left ovary measure up to 6.5 cm within which there is debris and/or solid component. Consider follow-up outpatient CHARGEBACK SPECIALIST consultation May consider follow-up outpatient nonemergent contrast enhanced pelvic MRI, if not performed follow-up ultrasound recommended in 6 months. 2. Uterus and right ovary not visualized might have been removed or atrophic. Seen by General surgery who feels the patient can tolerate p.o. she can be discharged back home. Will attempt PO trial Reevaluation #2: 1600-patient tolerated 8 oz of wil zulema with no additional vomiting episodes. Plan for discharge home. Nursing communicated to her daughter the findings on the pelvic ultrasound and recommendations to follow up outpatient. Reviewed worrisome signs and symptoms of when to return to the emergency room. Comfortable plan for discharge home Medical Decision Making Medical Decision Making MDM Narrative: 73-year-old female with a history of congestive heart failure, diabetes, hypertension, COPD on chronic oxygen, AFib on Eliquis, chronic Molina presents to the ER with complaints generalized abdominal pain and vomiting which began several hours ago. Patient reports she had a normal bowel movement yesterday. She is passing gas. She denies any fevers, chills, urinary symptoms. No recent travel or sick contact. Denies abdominal surgical history. She reports her emesis is brown in color. She denies any black or bloody stools. She is on both Eliquis and aspirin. Abdomen is diffusely tender. She does have present bowel sounds. Stool is brown on rectal exam. Will obtain labs, viral testing, CT abdomen and pelvis, UA, Will provide antiemetic, ppi Differential Diagnosis Differential Diagnoses: The differential diagnosis associated with the presentation includes Gastritis, GI bleed, bowel obstruction, viral illness Admission/Observation Consideration of admission/observation: Escalation of care including admission/observation considered Partial bowel obstruction requiring bowel rest and admission for abdominal exams by General surgery Consult Healthcare Provider Management of the patient was discussed with: Movement Education Specialist Consult general surgery as patient has partial bowel obstruction. He will consult on the patient. Lab Data MDM Lab Attestation statement: I reviewed the patient's lab results. 01/06/24 08:49 01/06/24 08:49 Labs: Lab Results 01/06/24 01/06/24 01/06/24 Range/Units 08:49 08:59 11:00 WBC 12.1 H (4.8-10.8) X10*3/uL RBC 6.18 H (4.20-5.50) X10*6/uL Hgb 15.0 (12.0-16.0) g/dl Hct 47.7 H (37.0-47.0) % MCV 77.2 L (80.0-98.0) fL MCH 24.3 L (27.0-33.0) pg MCHC 31.4 (31.0-35.0) g/dl RDW 20.6 H (11.0-16.0) % Plt Count 184 (160-400) X10*3/uL MPV Not Reportable Immature Gran % (Auto) 0.5 H (0.0-0.4) % Neut % (Auto) 82.4 H (45-73) % Lymph % (Auto) 9.0 L (20-40) % [place] % (Auto) 6.7 (2-11) % Eos % (Auto) 1.2 (0-4) % Baso % (Auto) 0.2 (0-2) % Lymph # (Auto) 1.1 L (1.2-4.9) X10*3/uL [place] # (Auto) 0.8 (0.1-1.2) X10*3/uL Eos # (Auto) 0.2 (0.0-0.4) X10*3/uL Baso # (Auto) 0.0 (0.0-0.2) X10*3/uL Abs Immat Gran (auto) 0.06 H (0.00-0.03) X10*3/uL Absolute Neuts (auto) 9.9 H (2.0-8.3) x10*3/uL Absolute Nucleated RBC 0.000 (0.0-0.012) X10*3/uL Nucleated RBC % (auto) 0.0 (0.0-0.2) /100WBC Sodium 135 (135-145) mmol/L Potassium 3.4 (3.3-5.1) mmol/L Chloride 87 L (96-108) mmol/L Carbon Dioxide 39 H (22-29) mmol/L Anion Gap 12 (12-20) BUN 13 (9-16) mg/dL Creatinine 0.62 (0.5-1.4) mg/dL Estim Creat Clear Calc 111.0 Estimated GFR > 60 Random Glucose 203 H (60-115) mg/dL Lactic Acid 1.1 (0.5-2.0) mmol/L Calcium 9.3 (8.4-10.2) mg/dL Total Bilirubin 0.6 (0.0-1.0) mg/dL Direct Bilirubin 0.2 (0.0-0.5) mg/dL AST 16 (5-31) U/L ALT 13 (0-31) U/L Alkaline Phosphatase 108 (39-117) U/L Troponin I High Sens 6.8 D (<3.5-17.0) ng/L Total Protein 7.5 (6.5-8.0) g/dL Albumin 3.8 (3.5-5.0) g/dL Lipase 8 (8-78) U/L Urine Color Yellow Urine Appearance Clear Urine pH 8.5 (5.0-9.0) Ur Specific Tucker >= 1.030 H (1.005-1.025) Urine Protein Negative (Neg-Trace) mg/dL Urine Glucose (UA) Negative (Negative) mg/dL Urine Ketones Negative (Negative) mg/dL Urine Blood Negative (Negative) Urine Nitrite Negative (Negative) Ur Leukocyte Esterase Small (1+) H (Negative) Urine RBC 0-2 (0-2) /HPF Urine WBC 0-5 (0-5) /HPF Ur Squamous Epith Cells 0-2 (0-2) /HPF Urine Bacteria 4+ (None Seen) Hyaline Casts 0-2 (0-2) /LPF Stool Occult Blood NEGATIVE (NEGATIVE) Influenza Type A (PCR) NEGATIVE (Negative) Influenza Type B (PCR) NEGATIVE (Negative) RSV RNA Qual (PCR) NEGATIVE (Negative) SARS-CoV-2 RNA (RT-PCR) NEGATIVE (Negative) Independent Interpretation I performed an independent interpretation of an: EKG, Ultrasound and CT Scan Interpretation: I independently viewed the EKG which shows normal sinus rhythm with a rate of 78, normal FL, normal QRS normal QT I independently reviewed the CT scan agree with the radiology report I independently reviewed the Radiology Impression Discussion of test interpretation with radiology: I have reviewed the radiologist's reading. Radiologist Impression: [address] [address] [address] Scan Report Signed Patient: Aleah Connor MR#: [id number] : 1950 Acct:[id number] Age/Sex: 73 / F ADM Date: 01/06/24 Loc: HO.ED Attending Dr: Ordering Physician: Eden Castro NP Date of Service: 01/06/24 Procedure(s): CT abdomen pelvis w IV con Accession Number(s): [id number] cc: Cherise Hamm MD; Eden Castro NP~ EXAMINATION: CT abdomen pelvis w IV con CLINICAL INFORMATION: Reason for Exam Abdomial pain, vomiting, r/o sbo COMPARISON: Prior CT October 2021 TECHNIQUE: Multidetector volumetric imaging was performed from the superior aspect of the liver through the pubic symphysis 100 mL of Omnipaque 350 injected Sagittal and coronal reformatted images were obtained on the technologist's workstation. This CT examination was performed using dose optimization techniques as appropriate, variously including the following: *Automated exposure control *Adjustment of mA and/or kV according to patient size (this includes techniques or standardized protocols for targeted exams where dose is matched to indication/reason for exam; i.e. extremities or head) *Use of iterative reconstruction technique DLP: 1272 mGy-cm FINDINGS: LOWER THORAX: Mild atelectasis at right and left lung base. HEPATOBILIARY: Redemonstration of heterogeneously peripherally enhancing liver lesion right lobe roughly 3 x 2.5 cm may represent a hemangioma versus other liver lesions, evaluation is limited on this single contrast CT scan. GALLBLADDER: Gallbladder unremarkable. SPLEEN: Spleen is normal in size. PANCREAS: No focal mass or ductal dilatation. STOMACH AND GASTROINTESTINAL TRACT: There is probably hiatal hernia, Stomach is grossly unremarkable. Borderline dilated the loops of small bowel mid abdomen, fecal ideation of its content suggesting slow flow, probably due to at least partial obstruction, Excess amount of stool in the colon possibly a constipation. No evidence of bowel obstruction. Appendix not visualized however there are no secondary signs to suggest acute appendicitis. ADRENALS: Bilateral hypertrophy of the adrenals without adrenal mass or nodules. This has not changed. KIDNEYS/URETERS: There is a small defect in the cortex of the left kidney might be sequela of an old injury. No kidney stone or hydronephrosis. No mass. URINARY BLADDER: Decompressed, Molina catheter in place. PELVIC VISCERA: Newly found left pelvic complex cystic mass 7.6 x 6.4 cm uncertain etiology could be of left ovarian origin, given its size and texture, further investigation is warranted starting with ultrasound. PERITONEUM: No free air or fluid. LYMPH NODES: No lymphadenopathy. VASCULAR:Abdominal aorta normal in size, no aneurysm found. BONES, ABDOMINAL WALL AND SOFT TISSUES: Spondylosis of the thoracolumbar spine. Early advanced degenerative osteoarthritis of the hip joints. No fractures. Age-appropriate changes of the spine and skeletal system, no destructive osteolytic or osteosclerotic bone lesion found CT/CT abdomen pelvis w IV con IMPRESSION: 1. Newly found left pelvic complex cystic mass 7.6 x 6.4 cm, given its size and texture, could be of left ovarian origin, cannot rule out ovarian neoplasm, further investigation recommended starting with ultrasound. 2. Mildly dilated the small bowel loops midabdomen with fecalization of its content suggesting slow flow probably partial obstruction. May consider correlation with follow-up Gastrografin small bowel follow-through 3. Excess amount of stool in the colon possibly constipation. No evidence of bowel obstruction. 4. Redemonstration of heterogeneously enhancing liver lesion 3 x 2.5 cm limited evaluation on this single phase CT scan could be hemangioma versus other liver lesions, consider correlation with follow-up ultrasound. 5. Other noncritical findings described above. (Referring physician staff is being called, by physician staff assistance, to be alerted of the above critical findings and recommendations.) 01/06/2024 11:49 AM [place] [address] Ultrasound Report Signed Patient: Aleah Connor MR#: [id number] : 1950 Acct:[id number] Age/Sex: 73 / F ADM Date: 01/06/24 Loc: HO.ED Attending Dr: Ordering Physician: Eden Castro NP Date of Service: 01/06/24 Procedure(s): US pelvic complete Accession Number(s): [id number] cc: Cherise Hamm MD; Eden Castro NP~ EXAMINATION:US pelvic complete CLINICAL INFORMATION: Reason for Exam abnormal CT scan, eval left pelvic mas COMPARISON: CT scan same day earlier. LMP: Postmenopausal FINDINGS: UTERUS: Uterus not visualized might have been removed or atrophic ADNEXA: Normal Right ovary: Not visualized might have been removed or obscured by bowel gas Left ovary: Left ovarian cystic mass mildly complex measuring up to 5.8 x 6.5 x 6.1 cm within which there is debris and/or solid component posteriorly FREE FLUID: Trace amount of free fluid. OTHER FINDINGS: None US/US pelvic complete IMPRESSION: 1. Mildly complex cystic mass left ovary measure up to 6.5 cm within which there is debris and/or solid component. Consider follow-up outpatient CHARGEBACK SPECIALIST consultation May consider follow-up outpatient nonemergent contrast enhanced pelvic MRI, if not performed follow-up ultrasound recommended in 6 months. 2. Uterus and right ovary not visualized might have been removed or atrophic. Independent Historian Clinical information obtained from an independent historian. History obtained from or confirmed by: EMS Medications Administered Discontinued Medications Generic Name Dose Route Start Last Admin Trade Name Freq PRN Reason Stop Dose Admin Diphenhydramine HCl 25 mg 01/06/24 10:27 01/06/24 10:53 Diphenhydramine Hcl 50 Mg/Ml Vial IVPUSH 01/06/24 10:28 25 mg ONCE ONE Administration Famotidine 20 mg 01/06/24 08:44 01/06/24 08:51 Famotidine/Pf 20 Mg/2 Ml Vial IVPUSH 01/06/24 08:45 20 mg ONCE ONE Administration Iohexol 100 ml 01/06/24 10:51 01/06/24 10:52 Iohexol 350 Mg/Ml 100 Ml Infus..Btl IV 01/06/24 10:52 100 ml ONCE ONE Administration Lorazepam 0.5 mg 01/06/24 14:13 01/06/24 14:18 Lorazepam 2 Mg/Ml Vial IVPUSH 01/06/24 14:14 0.5 mg ONCE ONE Administration Morphine Sulfate 2 mg 01/06/24 13:18 01/06/24 13:21 Morphine Sulfate 2 Mg/Ml Cartridge IVPUSH 01/06/24 13:19 2 mg ONCE ONE Administration Protocol Ondansetron HCl 4 mg 01/06/24 08:44 01/06/24 08:51 Ondansetron Hcl 4 Mg/2 Ml Vial IVPUSH 01/06/24 08:45 4 mg ONCE ONE Administration Ondansetron HCl 4 mg 01/06/24 11:25 01/06/24 11:50 Ondansetron Hcl 4 Mg/2 Ml Vial IVPUSH 01/06/24 11:26 4 mg ONCE ONE Administration Critical Care Time Critical Care Time Critical Care Time: Yes Total Critical Care Time: 90 Attestation: Discussion with general surgery for bowel obstruction, discussion with gynecology for abnormal CT findings, discussion with hospitalist for admission Discharge Plan Discharge Clinical Impression: Pelvic mass, Gastroenteritis Patient Disposition: Home, Self-Care Instructions: Ovarian Cyst (ED), Gastroenteritis (ED) Additional Instructions: Your ultrasound shows a left ovarian cyst. It is recommended that you follow up outpatient with gynecology to make sure that this is not cancer. You likely have a virus causing her abdominal pain and vomiting. We recommend that you start with clear liquids and advance her diet as tolerated. Please return for any worsening symptoms. Prescriptions: No Action albuterol sulfate [Proventil HFA] 90 mcg/actuation HFA aerosol inhaler 2 puff inhalation Q4-6H PRN (Reason: Wheezing) Eliquis 5 mg tablet 5 mg PO BID albuterol sulfate 2.5 mg /3 mL (0.083 %) solution for nebulization 2.5 mg inhalation Q4-6H PRN (Reason: shortness of breath or wheezing) Qty: 75 0RF insulin glargine [Lantus Solostar U-100 Insulin] 100 unit/mL (3 mL) insulin pen 70 unit subcut DAILY aspirin 81 mg Tablet,Delayed Release (Dr/Ec) 81 mg PO DAILY furosemide 40 mg tablet 80 mg PO DAILY insulin lispro [Humalog KwikPen Insulin] 100 unit/mL insulin pen 1 sliding scale dose subcut QIDACHS Protocol: Insulin Correction Scale Less than or equal to 110 ---- Give (units): 0 111 to 150 Give (units): 0 151 to 200 Give (units): 2 201 to 250 Give (units): 4 251 to 300 Give (units): 6 301 to 350 Give (units): 8 Greater than 350 Give (units): 10 Call MD if Blood Glucose > : 350 Trulicity 0.75 mg/0.5 mL pen injector 0.75 mg subcut TU acetaminophen 325 mg tablet 650 mg PO Q6H PRN (Reason: Pain) oxybutynin chloride 5 mg tablet extended release 24hr 5 mg PO BEDTIME gabapentin 300 mg capsule 300 mg PO TID montelukast 10 mg tablet 10 mg PO BEDTIME ergocalciferol (vitamin D2) 1,250 mcg (50,000 unit) capsule 1,250 mcg PO TH fluticasone furoate-vilanterol [Breo Ellipta] 200-25 mcg/dose blister with device 1 ea INHALATION DAILY albuterol sulfate 90 mcg/actuation HFA aerosol inhaler 2 puff inhalation Q6H PRN (Reason: shortness of breath or wheezing) Qty: 8.5 0RF prednisone 20 mg tablet 20 mg PO BID Qty: 10 0RF doxycycline hyclate 100 mg tablet 100 mg PO BID Qty: 14 0RF guaifenesin 200 mg/5 mL liquid 200 mg PO Q4H PRN (Reason: cough) Qty: 118 0RF metoprolol succinate 50 mg tablet extended release 24 hr 50 mg PO DAILY losartan 25 mg tablet 25 mg PO DAILY lisinopril 5 mg tablet 5 mg PO DAILY Print Language: Cuban
[2024-01-06] MEDS: Famotidine/PF 20 MG/2 ML VIAL IVPUSH (08:51)
[2024-01-06] MEDS: ondansetron HCL 4 MG/2 ML VIAL IVPUSH ×2 (08:51→11:50)
[2024-01-06 08:53] VITALS: BP 139/57; PULSE 77; RESP 18; O2SAT 96
[2024-01-06 08:53] LABS: MANUAL DIFF FLAG NO
[2024-01-06 08:54] LABS: OBS Int Ctl Valid YES; OBS1 NEGATIVE (NEGATIVE)
--- NOTE | 2024-01-06 09:09 | PC.NURSE ---
patient arrives via EMS after episodes of vomiting this morning, patient states she has been experiencing diffuse abdominal pain all morning with associated vomiting, was brought in for concern of SBO, patient states her last BM was last night before she went to bed and denies any black tarry stools or bloody stools. patient states the pain and nausea came on all of a sudden, actively vomiting upon arrival. patient states she is bed bound and lives in an apartment, her daughter comes and helps her throughout the day as well as a nurse. patient with hx of COPD and CHF, wears 1.5L of 02 at baseline, oxygenating at 97% on 3L. per EMS patient was saturating at 87% on home O2. Bowel sounds present in all four quadrants, patient with some generalized pain to palpation across entire abdomen, PIV placed in LAC, blood work drawn and sent, patient medicated with zofran and pepcid per MAR. placed on quality assurance monitor chassis, VSS at this time. patient with chronic rai due to diuretiuc therapy. bag was full on arrival and emptied by EDT. draining clear yellow urine, patient states rai has a 35mL balloon and was last changed a week ago.
[2024-01-06 09:15] LABS: Basophils Percent Auto 0.2 % (0-2); Eosinophils Absolute Auto 0.2 X10*3/uL (0.0-0.4); Eosinophils Percent Auto 1.2 % (0-4); Hematocrit 47.7 % (37.0-47.0); Imm Gran Abs Auto 0.06 X10*3/uL (0.00-0.03); Imm Gran Pct Auto 0.5 % (0.0-0.4); Lymphocytes Absolute Auto 1.1 X10*3/uL (1.2-4.9); Mean Corpuscular HGB Conc 31.4 g/dl (31.0-35.0); Mean Corpuscular Hemoglobin 24.3 pg (27.0-33.0); Mean Corpuscular Volume 77.2 fL (80.0-98.0); Monocytes Absolute Auto 0.8 X10*3/uL (0.1-1.2); Monocytes Percent Auto 6.7 % (2-11); Neutrophils Absolute Auto 9.9 x10*3/uL (2.0-8.3); Neutrophils Percent Auto 82.4 % (45-73); Platelet Count 184 X10*3/uL (160-400); Red Blood Count 6.18 X10*6/uL (4.20-5.50); Red Cell Distribution Width 20.6 % (11.0-16.0); White Blood Count 12.1 X10*3/uL (4.8-10.8)
[2024-01-06 09:16] LABS: Lactic Acid 1.1 mmol/L (0.5-2.0)
--- OUTSIDE RECORDS SUMMARY | 2024-01-06 09:16 | XMS_ITS | Continuity of Care Document ---
Author Organization [facility] Address [address] [place] [address]- Care Team Providers Care Dining Room Supervisor Name Role Phone Hansel GONZALEZ, Cherise Bolden Primary Care Physician Encounter [facility] Date(s): 11/24/22 - 02/04/[address] [id number] Attending Physician: Rufus Ambrocio MD Admitting Physician: Rufus Ambrocio MD Referring Physician: Burton Chapman DO Allergies, Adverse Reactions, Alerts Substance Reaction Severity Status Silvadene skin alicea unsure Active Immunizations Given and Recorded Vaccine Date Status Refusal Reason influenza virus vaccine, inactivated 07/31/22 Give n influenza virus vaccine, inactivated 04/09/21 Maldonado rded influenza virus vaccine, inactivated 09/06/19 Maldonado rded influenza virus vaccine, inactivated 03/26/18 Maldonado rded influenza virus vaccine, inactivated 05/17/17 Maldonado rded influenza virus vaccine, inactivated 04/20/16 Maldonado rded influenza virus vaccine, inactivated 04/21/15 Maldonado rded influenza virus vaccine, inactivated 06/25/10 Maldonado rded SARS-CoV-2 (COVID-19) Ad26 vaccine 10/12/20 Record ed pneumococcal 23-valent vaccine 09/06/19 Recorded pneumococcal 23-valent vaccine 01/23/18 Recorded pneumococcal 23-valent vaccine 05/25/01 Recorded tetanus-diphtheria toxoids (Td) 10/16/17 Recorded tetanus/diphtheria/pertussis, acel(Tdap) 11/12/15 Recorded pneumococcal 13-valent vaccine 04/21/15 Recorded Not Given Vaccine Date Status Refusal Reason influenza virus vaccine, inactivated 07/13/22 Not Given Patient Refuses Medications albuterol 0.083% inhalation solution 3 mL = 2.5 mg, Neb, Every 6 hours, PRN Wheezing/Shortness of Breath, ICD J45.909 as needed every 6 hours for wheezing/ shortness of breath, # 360 mL, 2 Refills, Maintenance, 01/08/23 12:40:00 EDT, Solution, [facility]/pharmacy #[id number], ICD 10 - J45.901, 16... Start Date: 01/08/23 Status: Ordered albuterol CFC free 90 mcg/inh inhalation aerosol 1, puffs, Inhalation, 4 times a day, PRN, as needed for shortness of breath/wheezing use with spacer chamber Please give spacer chamber to patient, # 18 Gm, Refills 2, Tot. Refills 2, Maintenance, 01/08/23 12:40:00 EDT, Aerosol, Route to Pharmacy E... Start Date: 01/08/23 Status: Ordered Aspirin Low Dose 81 mg oral delayed release tablet 1 tablet = 81 mg, By Mouth, Daily, # 30 tablet, 0 Refills, Maintenance, 03/16/22 1:18:00 EDT, EC Tablet, Partial fill upon patient request if the prescription is for a schedule II opioid drug. Start Date: 03/16/22 Status: Ordered Breo Ellipta 200 mcg-25 mcg/inh inhalation powder 1 puffs, Inhalation, Daily, # 30 each, 3 Refills, Maintenance, 11/01/22 11:09:00 EDT, Powder, [facility]/pharmacy #[id number], Partial fill upon patient request if the prescription is for a schedule II opioid drug., 1 puffs Inhalation Daily, 167.64, cm, 11/01/22 7... Start Date: 11/01/22 Status: Ordered docusate-senna 50 mg-187 mg oral tablet 2 tablet, By Mouth, Daily at bedtime, PRN Constipation, for 30 days, # 60 tablet, 0 Refills, Acute 02/12/23 11:53:00 EDT, 01/13/23 11:53:00 EDT, Tablet, [facility]/pharmacy #[id number], Partial fill upon patient request if the prescription is for a schedule II opi... Start Date: 01/13/23 Stop Date: 02/12/23 Status: Ordered Eliquis 5 mg oral tablet 1 tablet = 5 mg, By Mouth, 2 times a day, # 60 tablet, 5 Refills, Maintenance, 03/16/22 1:18:00 EDT, Tablet, Partial fill upon patient request if the prescription is for a schedule II opioid drug. Start Date: 03/16/22 Status: Ordered gabapentin 300 mg oral capsule 300 mg, 1, capsule, By Mouth, 2 times a day, Refills 0, Maintenance, 03/16/22 1:19:00 EDT, Partial fill upon patient request if the prescription is for a schedule II opioid drug. Start Date: 03/16/22 Status: Ordered Humalog Kwik Pen 100 units/mL subcutaneous injection See Instructions, As directed per sliding scale. 100-150 - 3units 151-200 - 5 units 201-250- 7 units 251-300- 9 units 301-350- 11 units > 350 - 13 units and call doctor, 0 Refills, Maintenance, 03/29/22 19:44:00 EDT, Partial fill upon patient re... Start Date: 03/29/22 Status: Ordered Lantus Solostar Pen 100 units/mL subcutaneous solution INJECT 68 UNITS UNDER THE SKIN DAILY Start Date: 12/12/22 Status: Ordered Lasix 80 mg oral tablet 80 mg, 1, tablet, By Mouth, Daily, # 30 tablet, Refills 0, Tot. Refills 0, Maintenance, 05/09/22 15:58:00 EDT, Do Not Route, Partial fill upon patient request if the prescription is for a schedule IIopioid drug. Start Date: 05/09/22 Stop Date: 06/08/22 Status: Ordered lisinopril 10 mg oral tablet 10 mg, 1, tablet, By Mouth, Daily, # 30 tablet, Refills 0, Tot. Refills 0, Maintenance, 05/09/22 15:59:00 EDT, Do Not Route, Partial fill upon patient request if the prescription is for a schedule IIopioid drug. Start Date: 05/09/22 Status: Ordered metFORMIN 850 mg oral tablet 1 tablet = 850 mg, By Mouth, Daily in AM, 0 Refills, Maintenance, 03/16/22 1:18:00 EDT, Tablet, Partial fill upon patient request if the prescription is for a schedule II opioid drug. Start Date: 03/16/22 Status: Ordered methenamine hippurate 1 gm oral tablet 1 tablet = 1 Gm, By Mouth, 2 times a day, # 10 tablet, 0 Refills, Maintenance, 10/27/22 1:00:00 EDT, Tablet, Partial fill upon patient request if the prescription is for a schedule II opioid drug. Start Date: 10/27/22 Stop Date: 11/01/22 Status: Ordered Metoprolol Tartrate 50 mg oral tablet 1 tablet = 50 mg, By Mouth, 2 times a day, 0 Refills, Maintenance, 03/16/22 1:18:00 EDT, Tablet, Partial fill upon patient request if the prescription is for a schedule II opioid drug. Start Date: 03/16/22 Status: Ordered ocular lubricant - solution 2 drops, Eye, Left, 2 times a day, PRN Other, Dryness., # 30 mL, 0 Refills, Maintenance, 08/01/22 11:21:00 EST, Solution, [facility]/pharmacy #[id number], Partial fill upon patient request if the prescription is for a schedule II opioid drug., 2 drops Eye, Left 2... Start Date: 08/01/22 Status: Ordered oxybutynin 5 mg/24 hours oral tablet, extended release TAKE 1 TABLET BY MOUTH EVERY DAY AT BEDTIME Start Date: 12/12/22 Status: Ordered simvastatin 40 mg oral tablet 40 mg, 1, tablet, By Mouth, Daily at bedtime, Refills 0, Maintenance, 03/16/22 1:18:00 EDT, Partialfill upon patient request if the prescription is for a schedule II opioid drug. Start Date: 03/16/22 Status: Ordered Singulair 10 mg oral tablet 10 mg, 1, tablet, By Mouth, Daily in PM, # 30 tablet, Refills 1, Tot. Refills 1, Maintenance, 11/01/22 11:29:00 EDT, Route to Pharmacy Electronically, [facility]/pharmacy #[id number], Partial fill upon patient request if the prescription is for a schedule II opioi... Start Date: 11/01/22 Status: Ordered Trulicity Pen 0.75 mg/0.5 mL subcutaneous solution 0.5 mL = 0.75 mg, Subcutaneous Injection, Every week, 0 Refills, Maintenance, 10/26/22 20:09:00 EDT, Solution, Partial fill upon patient request if the prescription is for a schedule II opioid drug. Start Date: 10/26/22 Status: Ordered Vitamin D2 50,000 intl units (1.25 mg) oral capsule 1 capsule = 50,000 International_Units, By Mouth, Every 7 days, 0 Refills, Maintenance, 03/29/22 19:45:00 EDT, Partial fill upon patient request if the prescription is for a schedule II opioid drug. 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 RN Member Role: Primary Care Nurse Name: Tk Iqbal RN Position: [facility] RN Member Role: Primary Care Nurse Name: Jovanny Stuart RN Position: [facility] RN Member Role: Primary Care Nurse Name: Delaney De Los Santos RN Position: [facility] RN Member Role: Primary Care Nurse Name: Michelle Ricketts Position: [facility] RN Member Role: Primary Care Nurse Name: Cande Kennedy RN Position: [facility] AMB Nurse Member Role: Primary Care Nurse Name: Batool Summers Position: [facility] RN Member Role: Primary Care Nurse Name: Lainey Walker LPN Position: [facility] RN Member Role: Primary Care Nurse Name: Yanira Trevizo Position: [facility] RN Member Role: Primary Care Nurse Name: Batool Cervantes RN Position: [facility] RN Member Role: Primary Care Nurse Name: Batsheva Bernard RN Position: [facility] RN Member Role: Primary Care Nurse Name: Fern Franklin LPN Position: [facility] RN Member Role: Primary Care Nurse Name: Vasyl Catherine RN Position: [facility] RN Member Role: Primary Care Nurse Name: Eve Masters RN Position: [facility] RN Member Role: Primary Care Nurse Name: Elizabeth Barrios RN Position: S RN Member Role: Primary Care Nurse Name: Jignesh Stoner RN Position: S RN Member Role: Primary Care Nurse Name: Kady Garcias RN Position: S RN Member Role: Primary Care Nurse Name: Rosy Arriaza RN Position: S RN Member Role: Primary Care Nurse Name: Cherise Hamm MD Position: S Outreach Member Role: PCP Address: Address: [address] [place] [id number]- Name: Chyna Aguilar RN Position: [facility] RN Member Role: Primary Care Nurse Address: Address: [address] [place] [address]- Name: John Guaman RN Position: [facility] RN Member Role: Primary Care Nurse Name: Rocio Andrade RN Position: S RN Member Role: Primary Care Nurse Care Team Related Persons Name: STEPHANI ADAM Address: [address] [place] [address] Name: NATHEN LLOYD
--- OUTSIDE RECORDS SUMMARY | 2024-01-06 09:16 | XMS_ITS | Continuity of Care Document ---
Author Organization [facility] ter Address [address] [place] [id number]- Care Team Providers Care Pump Attendant Name Role Phone Cherise Hamm MD Primary Care Physician [phone] Encounter [facility] Date(s): 11/13/22 - 11/14/[address] [address]- Encounter Diagnosis Hematoma(Final) - 11/13/22 Discharge Disposition: A-D/C Home Attending Physician: Zechariah Jeff DO Admitting Physician: Zechariah Jeff DO Referring Physician: Not on Staff, Referring MD Allergies, Adverse Reactions, Alerts Substance Reaction Severity [...] breath, # 360 mL, 2 Refills, Maintenance, 11/14/22 17:09:00 EDT, Solution, [facility]/pharmacy #[id number], ICD 10 - J45.901, 16... Start Date: 11/14/22 Status: Ordered albuterol CFC free 90 mcg/inh inhalation aerosol 1, puffs, Inhalation, 4 times a day, PRN, as needed for shortness of breath/wheezing use with spacer chamber Please give spacer chamber to patient, # 18 Gm, Refills 2, Tot. Refills 2, Maintenance, 11/01/22 11:04:00 EDT, Aerosol, Route to Pharmacy E... Start Date: 11/01/22 Status: Ordered [employer] Mask fitting and ivap teaching [employer] Mask fitting and ivap teaching, See Instructions, # 1 each, Refills 0, Tot. Refills 0, Maintenance, Mask Fitting and Ivap teaching for patient. Dx ERICKA G47.33, 11/09/22 13:16:00 EDT, Supply Start Date: 11/09/22 Status: Ordered Aspirin Low Dose 81 mg oral delayed release tablet 1 tablet = 81 mg, By Mouth, Daily, # 30 tablet, 0 Refills, Maintenance, 03/16/22 1:18:00 EDT, EC Tablet, Partial fill upon patient request if the prescription is for a schedule II opioid drug. Start Date: 03/16/22 Status: Ordered azithromycin 250 mg oral tablet 1 pack/packet, By Mouth, Daily, # 3 tablet, 0 Refills, Soft Stop, 11/01/22 11:28:00 EDT, Tablet, [id number], Partial fill upon patient request if the prescription is for a schedule II opioid drug., 167.64, cm, 11/01/22 7:13:00 EDT, Height, 117... Start Date: 11/01/22 Status: Ordered Breo Ellipta 200 mcg-25 mcg/inh inhalation powder 1 puffs, Inhalation, Daily, # 30 each, 3 Refills, Maintenance, 11/01/22 11:09:00 EDT, Powder, [id number], Partial fill upon patient request if the prescription is for a schedule II opioid drug., 1 puffs Inhalation Daily, 167.64, cm, 11/01/22 7... Start Date: 11/01/22 Status: Ordered dextromethorphan-guaifenesin 10 mg-100 mg/10 mL oral liquid 10 mL, By Mouth, Every 4 hours, PRN as needed for cough, not to exceed 6 doses/day, # 60 mL, 1 Refills, Maintenance, 11/01/22 11:22:00 EDT, Liquid, [facility]/pharmacy #[id number], Partial fill upon patient request if the prescription is for a schedule II opioid d... Start Date: 11/01/22 Status: Ordered Eliquis 5 mg oral tablet [...] patient re... Start Date: 03/29/22 Status: Ordered Hyper-Praveen 3.5% inhalation solution See Instructions, Use twice daily as needed for cough/secretions via nebulizer. Should be preceded by albuterol via nebulizer. j45.909, # 60 capsule, 2 Refills, Maintenance, 11/14/22 17:09:00 EDT, [facility]/pharmacy #[id number], Partial fill upon patient request... Start Date: 11/14/22 Status: Ordered Lantus Inj See Instructions, 70 Units Subcutaneous Injection dailyt in morning, 0 Refills, Maintenance, 10/06/22 10:28:00 EDT, Injection, Partial fill upon patient request if the prescription is for a schedule II opioid drug. Start Date: 10/06/22 Status: Ordered Lasix 80 mg oral tablet [...] 0 Refills, Maintenance, 08/01/22 11:21:00 EST, Solution, [facility]/pharmacy #[id number], Partial fill upon patient request if the prescription is for a schedule II opioid drug., 2 drops Eye, Left 2... Start Date: 08/01/22 Status: Ordered predniSONE 10 mg oral tablet See Instructions, 2 tabs daily for 3 days, then 1 tab daily for 3 days, then stop, # 9 tablet, 0 Refills, Maintenance, 11/01/22 11:08:00 EDT, Tablet, [facility]/pharmacy #[id number], Partial fill upon patient request if the prescription is for a schedule II opioid... Start Date: 11/01/22 Status: Ordered simvastatin 40 mg oral tablet [...] 11/01/22 11:29:00 EDT, Route to Pharmacy Electronically, [facility]/pharmacy #[id number], Partial fill upon patient request if the prescription is for a schedule II opioi... Start Date: 11/01/22 Status: Ordered Tessalon Perles 100 mg oral capsule 2 capsule = 200 mg, By Mouth, 3 times a day, PRN as needed for cough, for 21 days, # 100 capsule, 1Refills, Acute 12/13/22 11:21:00 EDT, 11/01/22 11:21:00 EDT, Capsule, [facility]/pharmacy #[id number], Partial fill upon patient request if the prescription is for... Start Date: 11/01/22 Stop Date: 12/13/22 Status: Ordered Trulicity Pen 0.75 mg/0.5 mL [...] Confirmed Active 1Problem added by Discern Expert Results Radiology Reports * Exam Date Time Procedure Performing Provider Status 11/13/22 10:13 PM Forearm 2 Views Left Maria , Eliel; Addie h (Verified) Notes: (Forearm 2 Views Left) Reason For Exam: Pain RESULT: Forearm 2 Views Left Forearm 2 Views Left CLINICAL INDICATION: Hx of Present Illness: pt has lump in left forearm for which she orignialy noticed after her collar padder blindstitch attempted a blood draw at the side, no redness or purulent drainage noted, pt denies any fevers, malaise, cp, sob, no edme noted,; Reason: Pain; Clinical Question(s): Metastasis COMPARISONS: None TECHNIQUE: AP and lateral views of the left forearm were obtained. FINDINGS: There is no fracture or dislocation. Articulations at the elbow and wrist are anatomic. No retained foreign body. Subcutaneous edema along the dorsal aspect of the forearm. IMPRESSION: Subcutaneous edema along the dorsal aspect of the forearm. No fracture or dislocation. WSN: [id number] Ordering Physician: Zechariah Jfef Dictated By: Rafael Ruiz MD Dictated Date/Time: 11/13/22 10:21 p Reviewed By: Rafael Ruiz MD Signed By: Rafael Ruiz MD Signed Date/Time: 11/13/22 10:21 pm Transcribed By: SOLOMON Transcribed Date/Time: 11/13/22 10:19 pm * Exam Date Time Procedure Performing Provider Status 11/13/22 10:00 PM US Doppler Ext Upper Venous Left Quintin West; Isabel (Verified) Notes: (US Doppler Ext Upper Venous Left) Reason For Exam: Pain in limb;Other: RESULT: US Doppler Ext Upper Venous Left US Doppler Ext Upper Venous Left INDICATION: 72 years old Female with Hx of Present Illness: pt has lump in left forearm for which she originally noticed after her collar padder blindstitch attempted a blood draw at the side, no redness or purulent drainage noted, pt denies any fevers, malaise, cp, sob, no edema noted,; Reason: Other:; Pain inlimb; Clinical Question(s): Thrombosis COMPARISON: None. IMAGING TECHNIQUE: Ultrasound examination of the upper extremity deep venous system was performed using grayscale, color, and spectral wave analysis including response to compression. FINDINGS: In the location of the area of pain and palpable abnormality in the LEFT forearm there isjust deep to the skin is semilunate shaped area of hypoechogenicity with internal echoes but no internal vascularity measuring up to 2 cm in diameter. This probably represents a small subcutaneous hematoma. No collecting vascular structure is demonstrated. Internal jugular vein: Patent and compressible. Normal venous waveform. No intraluminal filling defects are visualized to suggest thrombosis. Subclavian vein: Patent. Normal venous waveform and expected respiratory variation. No intraluminalfilling defects are visualized to suggest thrombosis. Axillary vein: Patent and compressible. Normal venous waveform. No intraluminal filling defects arevisualized to suggest thrombosis. Brachial vein : Patent. Normal venous waveform. No intraluminal filling defects are visualized to suggest thrombosis. Basilic vein: Patent and compressible. Normal venous waveform. No intraluminal filling defects are visualized to suggest thrombosis. Cephalic vein: Patent and compressible. Normal venous waveform. No intraluminal filling defects arevisualized to suggest thrombosis. Contralateral internal jugular vein: Patent and compressible. Normal venous waveform. No intraluminal filling defects are visualized to suggest thrombosis. Contralateral subclavian vein: Patent. Normal venous waveform and expected respiratory variation. No intraluminal filling defects are visualized to suggest thrombosis. IMPRESSION: 1. No evidence of acute deep venous thrombosis. 2. No evidence of cephalic or basilic vein thrombosis. 3. Palpable abnormality explained by what is likely a liquefying hematoma in the subcutaneous fat of the LEFT forearm measuring up to 2 cm. Please correlate clinically. Thank you for allowing me to participate in the care of this patient. WSN: [id number] Ordering Physician: Zechariah Jeff Dictated By: Edward Balderas MD Dictated Date/Time: 11/13/22 10:05 p Reviewed By: Edward Balderas MD Signed By: Edward Balderas MD Signed Date/Time: 11/13/22 10:05 pm Transcribed By: SOLOMON Transcribed Date/Time: 11/13/22 10:02 pm Vital Signs Most recent to oldest [Reference Range]: 1 Oxygen Saturation [94-100 %] 93 % *L* (11/13/22 9:15 PM) Pulse Rate [55-90 bpm] 72 bpm (11/13/22 9:15 PM) Blood Pressure [90-138/55-84 mm Hg] 139/ 66mm Hg *H* (11/13/22 9:15 PM) Respiratory Rate [16-30 br/min] 16 br/mi n (11/13/22 9:32 PM) Temperature [96.8-100.4 DegF] 97.8 DegF (11/13/22 9:15 PM) Mode of Delivery (Oxygen) Room air (11/13/22 9:15 PM) Blood pressure sites Arm, right (11/13/22 9:15 PM) Temperature Route Oral (11/13/22 9:15 PM) Social History Social History Type Response Smoking Status Former smoker; Tobac co user in household: No entered on: 01/17/17 Sex Note * Zechariah Jeff DO: PERFORM Event Display: Patient Education Leaflets Authored Date: [id number] Hematoma ?? [id number] Hematoma A hematoma is a collection of blood trapped outside of a blood vessel. It's what we think of as a bruise or a contusion. It's often seen under the skin as a black and blue spot on your arm or leg, ora bump on your head after an injury. It can be almost anywhere on or in your body. It can also occur in an internal organ. This can be more serious. A hematoma is caused by an injury with damage to small blood vessels. This causes blood to leak into the tissues. Blood forms a pocket under the skin that swells and looks like a purplish patch. Hematomas sometimes form under the skin from bleeding during childbirth and can be particularly serious.Another serious form of hematoma forms after a fall on the head, called a subdural hematoma. Gradually the blood in the hematoma is absorbed back into the body. The swelling and pain of the hematoma will go away. This takes from??1 to??4 weeks, depending on the size of the hematoma. The skinover the hematoma may turn bluish then brown and yellow as the blood is dissolved and absorbed. Usually, this only takes a couple of weeks but can last months. Home care ??? Limit motion of the joints near the hematoma. If the hematoma is large and painful, avoid sports and other vigorous physical activity until the swelling and pain goes away. ??? Apply anice pack over the injured area for 20 minutes every 1 to 2 hours the first day. Continue with ice packs 3 to 4 times a day for the next??2 days. To make an ice pack, put ice cubes in a plastic bag that seals at the top. Wrap the bag in a thin towel or cloth. Don???t put ice or an ice pack directly on the skin. Continue the use of ice packs to ease pain and swelling as needed. ??? Take acetaminophen for pain relief, unless you were given a different pain medicine to use.??Talk with your providerbefore using this medicine if you: o Have chronic liver or kidney disease o Have??had a stomach ulcer or??digestive tract??bleeding o Are taking blood-thinner medicines. ?? Follow-up care Follow up with your??healthcare provider,??or as advised.??If X-rays or a CT scan were done, you'llbe told if there is a change in the reading, especially if it affects treatment. ?? When to get medical advice Call your healthcare provider right away if any of the following occur: ??? Redness around the hematoma ??? Increase in pain or warmth in the hematoma ??? Increase in size of the hematoma ??? Fever of 100.4??F (38??C) or higher, or as directed by your provider ??? If the hematoma is on the arm or leg, watch for: o More swelling or pain in the extremity o Numbness or tingling or blue color of the hand or foot ?? Last Reviewed Date: 2021 ?? [id number] [employer]. All rights reserved. This information is not intended as a substitute for professional medical care. Always follow your healthcare professional's instructions. ?? * Zechariah Jeff DO: PERFORM Event Display: Patient Education Leaflets Authored Date: [id number] Lipoma, No Treatment ?? [id number] Lipoma, No Treatment A??lipoma is a noncancerous (benign) tumor made up of fat tissue. It appears as a soft raised area,just under the skin. It's usually less than??2 inches across. Lipomas often don't need to be treated. But you can have them removed for cosmetic reasons. Sometimes lipomas are uncomfortable. They can put pressure on nearby tissues. This is also a reason to havea lipoma removed. Lipomas may also be biopsied or removed if you or your healthcare provider is unsure of the diagnosis. A biopsy make sure the growth isn't something more concerning. Home care No special care is needed for a lipoma. But let your healthcare provider know if you notice changesto the lipoma. ?? Follow-up care Follow up with your healthcare provider, or as advised. Talk with your provider if you want to havethe lipoma removed at a later time. ?? When to get medical advice Call your healthcare provider right away??if any of the following occur: ??? Redness, pain, tenderness, or drainage??from the lipoma ??? Lipoma starts to enlarge, change shape, or become more solid ??? Changes in the color of the skin over the lipoma ?? Last Reviewed Date: 2021 ?? [id number] [employer]. All rights reserved. This information is not intended as a substitute for professional medical care. Always follow your healthcare professional's instructions. ?? Radiology * [facility] , CIS S: TRANSCRIBE Edward Balderas MD: VERIFY Event Display: Result: Authored Date: US Doppler Ext Upper Venous Left INDICATION: 72 years old Female with Hx of Present Illness: pt has lump in left forearm for which she originally noticed after her collar padder blindstitch attempted a blood draw at the side, no redness or purulent drainage noted, pt denies any fevers, malaise, cp, sob, no edema noted,; Reason: Other:; Pain inlimb; Clinical Question(s): Thrombosis COMPARISON: None. IMAGING TECHNIQUE: Ultrasound examination of the upper extremity deep venous system was performed using grayscale, color, and spectral wave analysis including response to compression. FINDINGS: In the location of the area of pain and palpable abnormality in the LEFT forearm there isjust deep to the skin is semilunate shaped area of hypoechogenicity with internal echoes but no internal vascularity measuring up to 2 cm in diameter. This probably represents a small subcutaneous hematoma. No collecting vascular structure is demonstrated. Internal jugular vein: Patent and compressible. Normal venous waveform. No intraluminal filling defects are visualized to suggest thrombosis. Subclavian vein: Patent. Normal venous waveform and expected respiratory variation. No intraluminalfilling defects are visualized to suggest thrombosis. Axillary vein: Patent and compressible. Normal venous waveform. No intraluminal filling defects arevisualized to suggest thrombosis. Brachial vein : Patent. Normal venous waveform. No intraluminal filling defects are visualized to suggest thrombosis. Basilic vein: Patent and compressible. Normal venous waveform. No intraluminal filling defects are visualized to suggest thrombosis. Cephalic vein: Patent and compressible. Normal venous waveform. No intraluminal filling defects arevisualized to suggest thrombosis. Contralateral internal jugular vein: Patent and compressible. Normal venous waveform. No intraluminal filling defects are visualized to suggest thrombosis. Contralateral subclavian vein: Patent. Normal venous waveform and expected respiratory variation. No intraluminal filling defects are visualized to suggest thrombosis. IMPRESSION: 1. No evidence of acute deep venous thrombosis. 2. No evidence of cephalic or basilic vein thrombosis. 3. Palpable abnormality explained by what is likely a liquefying hematoma in the subcutaneous fat of the LEFT forearm measuring up to 2 cm. Please correlate clinically. Thank you for allowing me to participate in the care of this patient. WSN: [id number] Ordering Physician: Zechariah Jeff Dictated By: Edward Balderas MD Dictated Date/Time: 11/13/22 10:05 p Reviewed By: Edward Balderas MD Signed By: Edward Balderas MD Signed Date/Time: 11/13/22 10:05 pm Transcribed By: SOLOMON Transcribed Date/Time: 11/13/22 10:02 pm XR Radius and Ulna - left 2 Views * BHSPmannysccheng , TRAV S: TRANSCRIBE Rafael Ruiz MD: VERIFY Event Display: Result: Authored Date: [id number] Forearm 2 Views Left CLINICAL INDICATION: Hx of Present Illness: pt has lump in left forearm for which she orignialy noticed after her collar padder blindstitch attempted a blood draw at the side, no redness or purulent drainage noted, pt denies any fevers, malaise, cp, sob, no edme noted,; Reason: Pain; Clinical Question(s): Metastasis COMPARISONS: None TECHNIQUE: AP and lateral views of the left forearm were obtained. FINDINGS: There is no fracture or dislocation. Articulations at the elbow and wrist are anatomic. No retained foreign body. Subcutaneous edema along the dorsal aspect of the forearm. IMPRESSION: Subcutaneous edema along the dorsal aspect of the forearm. No fracture or dislocation. WSN: [id number] Ordering Physician: Zechariah Jeff Dictated By: Rafael Ruiz MD Dictated Date/Time: 11/13/22 10:21 p Reviewed By: Rafael Ruiz MD Signed By: Rafael Ruiz MD Signed Date/Time: 11/13/22 10:21 pm Transcribed By: SOLOMON Transcribed Date/Time: 11/13/22 10:19 pm Patient Care team information Care Team Personnel Name: Alvaro Oliver RN Position: [facility] RN Member Role: Primary Care Nurse Name: Tk Iqbal RN Position: [facility] RN Member Role: Primary Care Nurse Name: Lachelle Daniels RN Position: [facility] RN Member Role: Primary Care Nurse Name: Jovanny Stuart RN Position: [facility] RN Member Role: Primary Care Nurse Name: Delaney De Los Santos RN Position: [facility] RN Member Role: Primary Care Nurse Name: Michelle Ricketts Position: [facility] RN Member Role: Primary Care Nurse Name: Jillian Mckeon RN Position: [facility] RN Member Role: Primary Care Nurse Name: Reymundo Perkins RN Position: [facility] RN Member Role: Primary Care Nurse Name: Cande Kennedy RN Position: [facility] AMB Nurse Member Role: Primary Care Nurse Name: Batool Summers Position: [facility] RN Member Role: Primary Care Nurse Name: Lainey Walker LPN Position: [facility] RN Member Role: Primary Care Nurse Name: Yanira Trevizo Position: [facility] RN Member Role: Primary Care Nurse Name: Batool Cervantes RN Position: [facility] RN Member Role: Primary Care Nurse Name: Rafael Hicks RN Position: [facility] RN Member Role: Primary Care Nurse Name: Batsheva Bernard RN Position: [facility] RN Member Role: Primary Care Nurse Name: Fern Franklin LPN Position: [facility] RN Member Role: Primary Care Nurse Name: Vasyl Catherine RN Position: [facility] RN Member Role: Primary Care Nurse Name: Eve Masters RN Position: [facility] RN Member Role: Primary Care Nurse Name: Jenelle Jay RN Position: [facility] RN Member Role: Primary Care Nurse Name: Elizabeth Barrios RN Position: [facility] RN Member Role: Primary Care Nurse Name: Jignesh Stoner RN Position: [facility] RN Member Role: Primary Care Nurse Name: Kady Garcias RN Position: [facility] RN Member Role: Primary Care Nurse Name: Cherise Hamm MD Position: [facility] Outreach Member Role: PCP Address: Address: [address] [place] [id number]- Name: Chyna Aguilar RN Position: [facility] RN Member Role: Primary Care Nurse Address: Address: [address] [place] [address]- [place] Name: John Guaman RN Position: [facility] RN Member Role: Primary Care Nurse Name: Maria M Vance RN Position: [facility] RN Member Role: Primary Care Nurse [facility] Attending Position: [facility] ED Attendings Patient Name: Zechariah Jeff DO Position: [facility] Resident Member Role: ED Attending Physician Address: Address: [address] [place] [address] [place] [address]- [place] Name: Garrison Johnson RN Position: [facility] ED RN W/OE and Tasks Member Role: Patient Care Provider Care Team Related Persons Name: STEPHANI ADAM Address: home [address] [place] [id number] Name: GEETHA NORMAN Address: [place] [address]
--- OUTSIDE RECORDS SUMMARY | 2024-01-06 09:16 | XMS_ITS | Continuity of Care Document ---
Author Organization [facility] ter Address [address] [place] [id number]- Care Team Providers Care Infectious Diseases Physician Name Role Phone Cherise Hamm MD Primary Care Physician [phone] Encounter [facility] Date(s): 11/26/22 - 11/27/[address] [address]- Encounter Diagnosis UTI (urinary tract infection)(Final) - 11/26/22 Discharge Disposition: A-D/C Home Attending Physician: Jignesh Andrew MD Admitting Physician: Jignesh Andrew MD Referring Physician: Not on Staff, Referring MD [...] 2 Refills, Maintenance, 11/14/22 17:09:00 EDT, Solution, [id number], ICD 10 - J45.901, 16... Start [...] 1 Refills, Maintenance, 11/01/22 11:22:00 EDT, Liquid, [facility]/pharmacy #[id number], Partial fill upon patient request [...] capsule, 2 Refills, Maintenance, 11/14/22 17:09:00 EDT, [id number], Partial fill upon patient request... Start [...] Date: 05/09/22 Stop Date: 06/08/22 Status: Ordered levoFLOXacin 750 mg oral tablet 1 tablet = 750 mg, By Mouth, Every 24 hours, for 5 days, # 5 tablet, 0 Refills, Acute 11/30/22 3:36:00 EDT, 11/25/22 3:36:00 EDT, Tablet, [facility]/pharmacy #[id number], Partial fill upon patient request if the prescription is for a schedule II opioid drug., 168,... Start Date: 11/25/22 Stop Date: 11/30/22 Status: Ordered lisinopril 10 mg oral tablet [...] 0 Refills, Maintenance, 08/01/22 11:21:00 EST, Solution, [facility]/pharmacy #[id number], Partial fill upon patient request if the prescription is for a schedule II opioid drug., 2 drops Eye, Left 2... Start Date: 08/01/22 Status: Ordered oxybutynin 5 mg/24 hours oral tablet, extended release 1 tablet = 5 mg, By Mouth, Daily at bedtime, # 30 tablet, 0 Refills, Maintenance, 11/26/22 19:42:00EDT, ER Tablet, [facility]/pharmacy #[id number], Partial fill upon patient request if the prescription is for a schedule II opioid drug., 168, cm, 11/25/22 6:47:00... Start Date: 11/26/22 Status: Ordered predniSONE 10 mg oral tablet See Instructions, 2 tabs daily for 3 days, then 1 tab daily for 3 days, then stop, # 9 tablet, 0 Refills, Maintenance, 11/01/22 11:08:00 EDT, Tablet, [facility]/pharmacy #[id number], Partial fill upon patient request [...] 11/01/22 11:29:00 EDT, Route to Pharmacy Electronically, [facility]/pharmacy #[id number], Partial fill upon patient request if the prescription is for a schedule II opioi... Start Date: 11/01/22 Status: Ordered Tessalon Perles 100 mg oral capsule 2 capsule = 200 mg, By Mouth, 3 times a day, PRN as needed for cough, for 21 days, # 100 capsule, 1Refills, Acute 12/13/22 11:21:00 EDT, 11/01/22 11:21:00 EDT, Capsule, [id number], Partial fill upon patient request if the [...] Confirmed Active 1Problem added by Discern Expert Vital Signs Most recent to oldest [Reference Range]: 1 2 3 Oxygen Saturation [94-100 %] 96 % (11/26/22 10:00 PM) 95 % (11/26/22 6:28 PM) Pulse Rate [55-90 bpm] 69 bpm (11/26/22 10:00 PM) 69 bpm (11/26/22 6:28 PM) Blood Pressure [90-138/55-84 mm Hg] 146/87mm Hg *H* (11/26/22 10:00 PM) 140/80mm Hg *H* (11/26/22 6:29 PM) Respiratory Rate [16-30 br/min] 18 br/min (11/26/22 10:00 PM) 18 br/min (11/26/22 6:28 PM) Temperature [96.8-100.4 DegF] 98.0 DegF (11/26/22 6:28 PM) Mode of Delivery (Oxygen) Room air (11/26/22 10:00 PM) Room air (11/26/22 6:28 PM) Blood pressure sites Arm, left (11/26/22 10:00 PM) Arm, left (11/26/22 6:29 PM) Arm, left (11/26/22 6:28 PM) Temperature Route Oral (11/26/22 6:28 PM) Social History Social History Type Response Smoking Status Former smoker; Tobac co user in household: No entered on: 01/17/17 Sex Note * Juan Damon MD: PERFORM Event Display: Patient Education Leaflets Authored Date: [id number] Blood in the Urine ?? [id number] Blood in the Urine Blood in the urine (hematuria) has many possible causes. If it occurs after an injury (such as a car accident or fall), it's most often a sign of bruising to the kidney or bladder. Common causes of blood in the urine include urinary tract infections, kidney stones, inflammation, tumors, or certain other diseases of the kidney or bladder. Menstruation can cause blood to appear in the urine sample,but it's not coming from the urinary tract. If only a tiny (trace) amount of blood is present, it will show up on the urine test, even though the urine may be yellow and not pink or red. This may occur with any of the above conditions, as wellas heavy exercise or high fever. In this case, your healthcare provider may want to repeat the urine test on another day. This will show if there's still blood in the urine. If there is, then other tests can be done to find out the cause. Home care Follow these home care guidelines: ??? If your urine doesn't look bloody (pink, brown, or red) thenyou don't need to restrict your activity in any way. ??? If you can see blood in your urine, rest and don't do any strenuous activity until your next exam. Don't use aspirin, blood thinners, or antiplatelet or anti- inflammatory medicines. These include ibuprofen and naproxen. These thin the blood and may increase bleeding. Call your healthcare provider to talk about using these medicines. ?? Follow-up care Follow up with your healthcare provider, or as advised. If you were injured and had blood in your urine, you should have a repeat urine test in 1 to 2 days. Contact your provider for this test. A radiologist will review any X-rays that were taken. You'll be told of any new findings that may affect your care. ?? When to get medical advice Call your healthcare provider right away if any of these occur: ??? Bright red blood or blood clotsin the urine (if you didn't have this before) ??? Weakness, dizziness, or fainting ??? New groin, belly, or back pain ??? Fever of 100.4??F (38??C) or higher, or as advised by your provider ??? Repeated vomiting ??? Bleeding from the nose or gums, or easy bruising ?? Last Reviewed Date: 2021 ?? [id number] [employer]. All rights reserved. This information is not intended as a substitute for professional medical care. Always follow your healthcare professional's instructions. ?? Patient Care team information Care Team Personnel Name: Alvaro Oliver RN Position: [facility] RN Member Role: Primary Care Nurse Name: Tk Iqbal RN Position: [facility] RN Member Role: Primary Care Nurse Name: Lachelle Daniels RN Position: [facility] RN Member Role: Primary Care Nurse Name: Jovanny Stuart RN Position: [facility] RN Member Role: Primary Care Nurse Name: Delaney De Los Santos RN Position: [facility] SN RN Member Role: Primary Care Nurse Name: Michelle Ricketts Position: [facility] RN Member Role: Primary Care Nurse Name: Jillian Mckeon RN Position: [facility] RN Member Role: Primary Care Nurse Name: Reymundo Perkins RN Position: [facility] RN Member Role: Primary Care Nurse Name: Cande Kennedy RN Position: [facility] AMB Nurse Member Role: Primary Care Nurse Name: Batool Summers Position: [facility] RN Member Role: Primary Care Nurse Name: Lainey Walker LPN Position: [facility] RN Member Role: Primary Care Nurse Name: Yanira Trevizo Position: [facility] RN Member Role: Primary Care Nurse Name: Batool Cervantes RN Position: [facility] RN Member Role: Primary Care Nurse Name: Rafael Hicks RN Position: [facility] RN Member Role: Primary Care Nurse Name: Batsheva Bernard RN Position: [facility] RN Member Role: Primary Care Nurse Name: Fern Franklin LPN Position: [facility] RN Member Role: Primary Care Nurse Name: Vasyl Catherine RN Position: [facility] RN Member Role: Primary Care Nurse Name: Eve Masters RN Position: [facility] RN Member Role: Primary Care Nurse Name: Jenelle Jay RN Position: [facility] RN Member Role: Primary Care Nurse Name: Elizabeth Barrios RN Position: [facility] RN Member Role: Primary Care Nurse Name: Jignesh Stoner RN Position: [facility] RN Member Role: Primary Care Nurse Name: Kady Garcias RN Position: [facility] RN Member Role: Primary Care Nurse Name: Cherise Hamm MD Position: [facility] Outreach Member Role: PCP Address: Address: [address] [place] [address]- [place] Name: Chyna Aguilar RN Position: [facility] RN Member Role: Primary Care Nurse Address: Address: [address] [place] [address]- [place] Name: John Guaman RN Position: [facility] RN Member Role: Primary Care Nurse Name: Maria M Vance RN Position: [facility] RN Member Role: Primary Care Nurse Name: Renetta Barajas Position: [facility] ED TA [facility] Name: Chari Antoine RN Position: [facility] ED RN W/OE and Tasks Member Role: Patient Care Provider Name: Jignesh Andrew MD Position: [facility] ED Medicine MD Member Role: ED Attending Physician Address: Address: [address] [place] [address]- [place] Name: Juan Damon MD Position: [facility] Resident Member Role: ED Resident Address: Address: [address] [place] [address]- [place] Care Team Related Persons Name: STEPHANI ADAM Address: home [address] [place] [address] Name: GEETHA NORMAN Address: [place] [address]
--- OUTSIDE RECORDS SUMMARY | 2024-01-06 09:16 | XMS_ITS | Continuity of Care Document ---
Author Organization [facility] Address [address] [place] [address]- Care Team Providers Care Aco Coordinator Name Role Phone Hansel GONZALEZ, Cherise Bolden Primary Care Physician Encounter 11/05/22 - 12/23/22 [facility] [address], [place] [address] Discharge Disposition: CLIENT NO LONGER REQUIRES SKILLED CARE Allergies, Adverse Reactions, Alerts Substance Reaction Severity [...] 2 Refills, Maintenance, 11/14/22 17:09:00 EDT, Solution, [facility]/pharmacy #[id number], ICD 10 - J45.901, 16... [...] Dose 81 mg oral delayed release tablet TAKE 1 TABLET BY MOUTH EVERY DAY Start Date: 12/12/22 Status: Ordered Aspirin Low Dose 81 mg [...] Refills, Soft Stop, 11/01/22 11:28:00 EDT, Tablet, [facility]/pharmacy #[id number], Partial fill upon patient request if the prescription is for a schedule II opioid drug., 167.64, cm, 11/01/22 7:13:00 EDT, Height, 117... Start Date: 11/01/22 Status: Ordered Betadine 10% solution See Instructions, Topically Daily, # 240 mL, 0 Refills, Maintenance, 12/17/22 12:11:00 EDT, [facility], Partial fill upon patient request if the prescription is for a schedule II opioiddrug., Topically Daily, 168, cm, 12/17/22 7:29:00 E... Start Date: 12/17/22 Status: Ordered Breo Ellipta 200 mcg-25 mcg/inh inhalation powder 1 puffs, Inhalation, Daily, # 30 each, 3 Refills, Maintenance, 11/01/22 11:09:00 EDT, Powder, [facility]/pharmacy #[id number], Partial fill upon patient request if the prescription is for a schedule II opioid drug., 1 puffs Inhalation Daily, 167.64 cm, 11/01/22 7... Start Date: 11/01/22 Status: Ordered Breo Ellipta 200 mcg-25 mcg/inh inhalation powder INHALE 1 PUFF BY MOUTH DAILY Start Date: 12/12/22 Status: Ordered clotrimazole 1% topical cream 1 application, Topically, 2 times a day, # 100 Gm, 0 Refills, Maintenance, 12/08/22 3:25:00 EDT, Cream, [facility]/pharmacy #[id number], Partial fill upon patient request if the prescription is for a schedule II opioid drug., 1 application Topically 2 times a day,... Start Date: 12/08/22 Status: Ordered dextromethorphan-guaifenesin 10 mg-100 mg/10 mL oral liquid 10 mL, By Mouth, Every 4 hours, PRN as needed for cough, not to exceed 6 doses/day, # 60 mL, 1 Refills, Maintenance, 11/01/22 11:22:00 EDT, Liquid, [facility]/pharmacy #[id number], Partial fill upon patient request if the prescription is for a schedule II opioid d... Start Date: 11/01/22 Status: Ordered docusate sodium 100 mg/25 mL oral syrup 15 mL = 60 mg, By Mouth, Every 4 hours, PRN for constipation, # 480 mL, 0 Refills, Maintenance, 12/08/22 3:24:00 EDT, Syrup, [id number], Partial fill upon patient request if the prescription is for a schedule II opioid drug., 167, cm, 12/02/22... Start Date: 12/08/22 Status: Ordered Eliquis 5 mg oral tablet 1 tablet = 5 mg, By Mouth, 2 times a day, # 60 tablet, 5 Refills, Maintenance, 03/16/22 1:18:00 EDT, Tablet, Partial fill upon patient request if the prescription is for a schedule II opioid drug. Start Date: 03/16/22 Status: Ordered gabapentin 300 mg oral capsule TAKE 1 CAPSULE BY MOUTH THREE TIMES A DAY Start Date: 12/12/22 Status: Ordered gabapentin 300 mg oral capsule [...] capsule, 2 Refills, Maintenance, 11/14/22 17:09:00 EDT, [facility]/pharmacy #[id number], Partial fill upon patient request... Start Date: 11/14/22 Status: Ordered Lantus Inj See Instructions, 70 Units Subcutaneous Injection dailyt in morning, 0 Refills, Maintenance, 10/06/22 10:28:00 EDT, Injection, Partial fill upon patient request if the prescription is for a schedule II opioid drug. Start Date: 10/06/22 Status: Ordered Lantus Solostar Pen 100 units/mL [...] 0 Refills, Maintenance, 08/01/22 11:21:00 EST, Solution, [facility]/pharmacy #[id number], Partial fill upon patient request if the prescription is for a schedule II opioid drug., 2 drops Eye, Left 2... Start Date: 08/01/22 Status: Ordered oxybutynin 5 mg/24 hours oral tablet, extended release 1 tablet = 5 mg, By Mouth, Daily at bedtime, # 30 tablet, 0 Refills, Maintenance, 11/26/22 19:42:00EDT, ER Tablet, [facility]/pharmacy #[id number], Partial fill upon patient request if the prescription is for a schedule II opioid drug., 168, cm, 11/25/22 6:47:00... Start Date: 11/26/22 Status: Ordered oxybutynin 5 mg/24 hours oral tablet, extended release TAKE 1 TABLET BY MOUTH EVERY DAY AT BEDTIME Start Date: 12/12/22 Status: Ordered predniSONE 10 mg oral tablet See Instructions, 2 tabs daily for 3 days, then 1 tab daily for 3 days, then stop, # 9 tablet, 0 Refills, Maintenance, 11/01/22 11:08:00 EDT, Tablet, [facility]/pharmacy #[id number], Partial fill upon patient request [...] 11/01/22 11:29:00 EDT, Route to Pharmacy Electronically, [facility]/pharmacy #[id number], Partial fill upon patient request [...] Team Personnel Name: Alvaro Oliver RN Position: [facility] RN Member Role: Primary Care Nurse Name: Tk Iqbal RN Position: [facility] RN Member Role: Primary Care Nurse Name: Jovanny Stuart RN Position: [facility] RN Member Role: Primary Care Nurse Name: Delaney De Los Santos RN Position: [facility] SN RN Member Role: Primary Care Nurse Name: Michelle Ricketts Position: [facility] RN Member Role: Primary Care Nurse Name: Cande Kennedy RN Position: [facility] AMB Nurse Member Role: Primary Care Nurse Name: Batool Summers Position: [facility] RN Member Role: Primary Care Nurse Name: Lainey Walker LPN Position: [facility] RN Member Role: Primary Care Nurse Name: Yanira Trevizo Position: [facility] RN Member Role: Primary Care Nurse Name: Batool Cervantes RN Position: [facility] RN Member Role: Primary Care Nurse Name: Rafael Hicks RN Position: [facility] RN Member Role: Primary Care Nurse Name: Batsheva Bernard RN Position: [facility] RN Member Role: Primary Care Nurse Name: Fern Franklin LPN Position: [facility] RN Member Role: Primary Care Nurse Name: Vasyl Catherine RN Position: [facility] RN Member Role: Primary Care Nurse Name: Eve Masters RN Position: [facility] RN Member Role: Primary Care Nurse Name: Jenelle Jay RN Position: [facility] RN Member Role: Primary Care Nurse Name: Elizabeth Barrios RN Position: [facility] RN Member Role: Primary Care Nurse Name: Jignesh Stoner RN Position: [facility] RN Member Role: Primary Care Nurse Name: Kady Garcias RN Position: [facility] RN Member Role: Primary Care Nurse Name: Rosy Arriaza RN Position: [facility] RN Member Role: Primary Care Nurse Name: Cherise Hamm MD Position: [facility] Outreach Member Role: PCP Address: Address: [address] [place] [address]- Name: Chyna Aguilar RN Position: S RN Member Role: Primary Care Nurse Address: Address: [address] [place], [place] [address] [address]- Name: John Guaman RN Position: S RN Member Role: Primary Care Nurse Name: Rocio Andrade RN Position: S RN Member Role: Primary Care Nurse Care Team Related Persons Name: KIA STEPHANI Address: [address] [address] Name: NATHEN LLOYD
--- OUTSIDE RECORDS SUMMARY | 2024-01-06 09:16 | XMS_ITS | Continuity of Care Document ---
Author Organization [facility] Address [address] [place] [id number]- Care Team Providers Care Rolling Attendant Name Role Phone Cherise Hamm MD Primary Care Physician [place] [facility] [place]07[place] - 09/08/[address] [address]- Encounter Diagnosis Hematuria(Final) - 09/08/21 Discharge Disposition: A-D/C Home Attending Physician: Ricki Ho MD Admitting Physician: Ricki Ho MD Referring Physician: Not on Staff, Referring MD Allergies, Adverse Reactions, Alerts Substance Reaction Severity Status Silvadene skin alicea unsure Active Medications acetaminophen 325 mg oral tablet 650 mg, 2, tablet, By Mouth, Every 4 hours, PRN, # 30 tablet, Refills 0, Tot. Refills 0, Maintenance, as needed for pain, 01/06/19 19:36:31 EDT, Print Requisition Start Date: 01/06/19 Status: Ordered Aspirin Low Dose 81 mg oral delayed release tablet 1 tablet = 81 mg, By Mouth, Daily, # 30 tablet, 0 Refills, Maintenance, 06/30/21 10:31:00 EST, [facility] Tablet, Partial fill upon patient request if the prescription is for a schedule II opioid drug. Start Date: 06/30/21 Status: Ordered cephalexin monohydrate 500 mg oral capsule 1 capsule = 500 mg, By Mouth, 4 times a day, for 10 days, # 40 capsule, 0 Refills, Acute 09/18/21 13:34:00 EST, 09/08/21 13:34:00 EST, Capsule, [id number], Partial fill upon patient request if the prescription is for a schedule II opioid drug. Start Date: 09/08/21 Stop Date: 09/18/21 Status: Ordered Diflucan 150 mg oral tablet 1 tablet = 150 mg, By Mouth, Once, # 1 tablet, 0 Refills, Soft Stop, 08/01/21 23:58:00 EST, Tablet,[facility]/pharm[facility] #[id number], Partial fill upon patient request if the prescription is for a schedule II opioid drug. Start Date: 08/01/21 Status: Ordered Eliquis 5 mg oral tablet 1 tablet = 5 mg, By Mouth, 2 times a day, # 60 tablet, 5 Refills, Maintenance, 06/30/21 10:31:00 EST, Tablet, Partial fill upon patient request if the prescription is for a schedule II opioid drug. Start Date: 06/30/21 Status: Ordered Flovent Diskus 100 mcg inhalation powder 1 puffs, Inhalation, Daily, # 1 applicator, 1 Refills, Maintenance, 01/15/10 20:21:53 EDT Start Date: 01/15/10 Status: Ordered gabapentin 300 mg oral capsule 300 mg, 1, capsule, By Mouth, 3 times a day, # 90 capsule, Refills 5, Maintenance, 06/30/21 10:32:00 EST, Partial fill upon patient request if the prescription is for a schedule II opioid drug. Start Date: 06/30/21 Status: Ordered insulin lispro 100 u/ml subcutaneous injection 14-32 units, Subcutaneous Injection, 3 times a day before meals, 0 Refills, Maintenance, 07/02/21 10:40:00 EST, Injection, Partial fill upon patient request if the prescription is for a schedule II opioid drug. Start Date: 07/02/21 Status: Ordered Lantus Inj 0.62 mL = 62 units, Subcutaneous Injection, Daily before lunch, 0 Refills, Maintenance, 07/02/21 10:39:00 EST, Injection, Partial fill upon patient request if the prescription is for a schedule II opioid drug. Start Date: 07/02/21 Status: Ordered Lasix 40 mg oral tablet 1 tablet = 40 mg, By Mouth, 2 times a day, 0 Refills, Maintenance Start Date: 01/19/10 Status: Ordered lisinopril 5 mg oral tablet 5 mg, 1, tablet, By Mouth, Daily, # 30 tablet, Refills 0, Maintenance, 06/30/21 10:31:00 EST, Partial fill upon patient request if the prescription is for a schedule II opioid drug. Start Date: 06/30/21 Status: Ordered Metoprolol Tartrate 50 mg oral tablet 1 tablet = 50 mg, By Mouth, 2 times a day, # 180 tablet, 0 Refills, Maintenance, 06/30/21 10:31:00 EST, Tablet, Partial fill upon patient request if the prescription is for a schedule II opioid drug. Start Date: 06/30/21 Status: Ordered mupirocin 2% topical ointment 1 application, Topically, 3 times a day, # 15 Gm, 0 Refills, Maintenance, 06/30/21 10:32:00 EST, Ointment, Partial fill upon patient request if the prescription is for a schedule II opioid drug. Start Date: 06/30/21 Status: Ordered nystatin topical 522685 u/gm powder 1 application, Topically, 2 times a day, # 15 Gm, 0 Refills, Maintenance, 06/30/21 10:31:00 EST, Powder, Partial fill upon patient request if the prescription is for a schedule II opioid drug. Start Date: 06/30/21 Status: Ordered simvastatin 40 mg oral tablet 40 mg, 1, tablet, By Mouth, Daily at bedtime, # 30 tablet, Refills 0, Maintenance, 06/30/21 10:32:00 EST, Partial fill upon patient request if the prescription is for a schedule II opioid drug. 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 Obesity(Confirmed) Active Postmenopausal bleeding(Confirmed) Active Vital Signs Most recent to oldest [Reference Range]: 1 2 3 Oxygen Saturation [94-100 %] 99 % (09/08/21 7:00 PM) 98 % (09/08/21 6:11 PM) 96 % (09/08/21 3:58 PM) Pulse Rate [55-90 bpm] 75 bpm (09/08/21 7:00 PM) 74 bpm (09/08/21 6:11 PM) 74 bpm (09/08/21 3:58 PM) Blood Pressure [90-138/55-84 mm Hg] 145/82mm Hg *H* (09/08/21 7:00 PM) 154/69mm Hg *H* (09/08/21 6:11 PM) 124/47mm Hg (09/08/21 3:58 PM) Respiratory Rate [16-30 br/min] 20 br/min (09/08/21 7:00 PM) 16 br/min (09/08/21 6:11 PM) 20 br/min (09/08/21 3:58 PM) Temperature [96.8-100.4 DegF] 97.9 DegF (09/08/21 6:00 PM) 98.6 DegF (09/08/21 2:09 PM) 98.3 DegF (09/08/21 8:15 AM) Mode of Delivery (Oxygen) Room air (09/08/21 7:00 PM) Room air (09/08/21 6:11 PM) Room air (09/08/21 3:58 PM) Blood pressure sites Arm, left (09/08/21 7:00 PM) Arm, left (09/08/21 6:11 PM) Arm, left (09/08/21 3:58 PM) Temperature Route Oral (09/08/21 6:00 PM) Oral (09/08/21 2:09 PM) Oral (09/08/21 8:15 AM) Social History Social History Type Response Smoking Status Former smoker; Tobac co user in household: No entered on: 01/17/17 Sex
--- OUTSIDE RECORDS SUMMARY | 2024-01-06 09:16 | XMS_ITS | Continuity of Care Document ---
Author Organization [facility] ter Address [address] [place] [id number] Care Team Providers Care Electrolysis Operator Name Role Phone Hansel GONZALEZ, Cherise Bolden Primary Care Physician Encounter [facility] Date(s): 07/29/22 - 08/01/[address] [id number]- Encounter Diagnosis Urinary tract infection(Final) - 07/29/22 Abdominal pain(Final) - 07/29/22 Discharge Disposition: A-Transfer VNA/Home Health Attending Physician: Selena Chilel MD Admitting Physician: Isauro Elder MD Referring Physician: Not on Staff, Referring [...] 2.5 mg, Neb, Every 6 hours, PRN as needed for wheezing, # 50 each, 0 Refills, Maintenance, 08/01/22 11:20:00 EST, Solution, [facility]/pharmacy #[id number], Partial fill upon patient request if the prescription is for a schedule II opioid drug., 166, cm, 01... Start Date: 08/01/22 Status: Ordered albuterol CFC free 90 mcg/inh inhalation aerosol 1, puffs, Inhalation, 4 times a day, PRN, # 6.7 Gm, Refills 0, Tot. Refills 0, Maintenance, 08/01/22 11:20:00 EST, Aerosol, Route to Pharmacy Electronically, [id number], [facility]/pharmacy #[id number], 166, cm, 08/01/22 8:16:00 EST, [place]... Start Date: 08/01/22 Status: Ordered albuterol-ipratropium 3 mg-0.5 mg/3 ml inhalation solution 3 mL, BAND Nebulizer, 4 times a day, PRN Wheezing/Shortness of Breath, # 90 mL, 0 Refills, Maintenance, 07/13/22 12:36:00 EST, Inhalation Solution, [facility], Partial fill upon patientrequest if the prescription is for a schedule II op... Start Date: 07/13/22 Status: Ordered Aspirin Low Dose 81 mg oral delayed release tablet 1 tablet = 81 mg, By Mouth, Daily, # 30 tablet, 0 Refills, Maintenance, 03/16/22 1:18:00 EDT, EC Tablet, Partial fill upon patient request if the prescription is for a schedule II opioid drug. Start Date: 03/16/22 Status: Ordered Eliquis 5 mg oral tablet 1 tablet = 5 mg, By Mouth, 2 times a day, # 60 tablet, 5 Refills, Maintenance, 03/16/22 1:18:00 EDT, Tablet, Partial fill upon patient request if the prescription is for a schedule II opioid drug. Start Date: 03/16/22 Status: Ordered Flovent Diskus 100 mcg/inh inhalation powder 1 puffs = 100 mcg, Inhalation, 2 times a day, # 1 each, 0 Refills, Maintenance, 07/13/22 13:54:00 EST, Powder, [facility], Partial fill upon patient request if the prescription is for aschedule II opioid drug., 1 puffs Inhalation 2 time... Start Date: 07/13/22 Status: Ordered gabapentin 300 mg oral capsule 300 mg, Capsule, By Mouth, 08/01/22 9:00:00 EST Start Date: 08/01/22 Stop Date: 08/01/22 Status: Completed gabapentin 300 mg oral capsule 300 mg, 1, capsule, By Mouth, 2 times a day, Refills 0, Maintenance, 03/16/22 1:19:00 EDT, Partial fill upon patient request if the prescription is for a schedule II opioid drug. Start Date: 03/16/22 Status: Ordered Humalog Kwik Pen 100 units/mL subcutaneous injection Subcutaneous Injection, 3 times a day before meals, As directed per sliding scale. 0-8 units per patient., 0 Refills, Maintenance, 03/29/22 19:44:00 EDT, Partial fill upon patient request if the prescription is for a schedule II opioid drug. Start Date: 03/29/22 Status: Ordered Lantus Inj = 64 units, Subcutaneous Injection, Daily in AM, 0 Refills, Maintenance, 05/09/22 15:58:00 EDT, Injection, Partial fill upon patient request if the prescription is for a schedule II opioid drug. Start Date: 05/09/22 Status: Ordered Lasix 80 mg oral tablet 80 mg, 1, tablet, By Mouth, 2 times a day, # 60 tablet, Refills 0, Tot. Refills 0, Maintenance, 05/09/22 15:58:00 EDT, Do Not Route, Partial fill upon patient request if the prescription is for a schedule II opioid drug. Start Date: 05/09/22 Stop Date: 06/08/22 Status: Ordered lisinopril 10 mg oral tablet 10 mg, Tablet, By Mouth, 08/01/22 9:00:00 EST Start Date: 08/01/22 Stop Date: 08/01/22 Status: Completed lisinopril 10 mg oral tablet 10 mg, 1, tablet, By Mouth, Daily, # 30 tablet, Refills 0, Tot. Refills 0, Maintenance, 05/09/22 15:59:00 EDT, Do Not Route, Partial fill upon patient request if the prescription is for a schedule IIopioid drug. Start Date: 05/09/22 Status: Ordered Lopressor 50 mg oral tablet 50 mg, Tablet, By Mouth, 08/01/22 9:00:00 EST Start Date: 08/01/22 Stop Date: 08/01/22 Status: Completed metFORMIN 850 mg oral tablet 1 tablet = 850 mg, By Mouth, 2 times a day, 0 Refills, Maintenance, 03/16/22 1:18:00 EDT, Tablet, Partial fill upon patient request if the prescription is for a schedule II opioid drug. Start Date: 03/16/22 Status: Ordered Metoprolol Tartrate 50 mg oral [...] 0 Refills, Maintenance, 08/01/22 11:21:00 EST, Solution, [facility]/pharmacy #[id number], Partial fill upon patient request if the prescription is for a schedule II opioid drug., 2 drops Eye, Left 2... Start Date: 08/01/22 Status: Ordered simvastatin 40 mg oral tablet 40 mg, 1, tablet, By Mouth, Daily at bedtime, Refills 0, Maintenance, 03/16/22 1:18:00 EDT, Partialfill upon patient request if the prescription is for a schedule II opioid drug. Start Date: 03/16/22 Status: Ordered Vitamin D2 50,000 intl units [...] Active 1Problem added by Discern Expert Results Orders for Microbiology Reports Name Date Blood Culture #2 07/29/22 Blood Culture (BLOOD CULTURE) 07/29/22 Urine Culture 07/29/22 Microbiology Reports TEST:Blood Culture, Second Order STATUS:Unauthenticated BODY SITE: SOURCE:Blood COLLECTED DATE/TIME:07/29/22 10:12 PM Blood Culture, Second Order SPECIMEN DESCRIPTION : BLOOD RAC SPECIAL REQUESTS : NONE CULTURE : NO GROWTH AFTER 48 HOURS REPORT STATUS : PRELIMINARY REPORT TEST:Urine Culture STATUS:Auth (Verified) BODY SITE: SOURCE:URINE COLLECTED DATE/TIME:07/29/22 9:22 PM Urine Culture SPECIMEN DESCRIPTION : URINE STRAIGHT CATH. SPECIAL REQUESTS : NONE CULTURE : Mixed bacterial carlito, characteristic of urogenital contamination. Please consult laboratory ([id number]) within 24 hours of receipt of result if more definitive studies may be clinically indicated. REPORT STATUS : FINAL 07/31/2022 TEST:Blood Culture STATUS:Unauthenticated BODY SITE: SOURCE:Blood COLLECTED DATE/TIME:07/29/22 7:45 PM Blood Culture SPECIMEN DESCRIPTION : BLOOD R A SPECIAL REQUESTS : NONE CULTURE : NO GROWTH 3 DAYS REPORT STATUS : PRELIMINARY REPORT Radiology Reports * Exam Date Time Procedure Performing Provider Status 07/29/22 8:[address] Abd/Pelvis W/ IV Contrast Only Sarah Morgan; Auth (Verified) Notes: (CT Abd/Pelvis W/ IV Contrast Only) Reason For Exam: LLQ abdominal pain;Other: RESULT: CT Abd/Pelvis W/ IV Contrast Only CT Abd/Pelvis W/ IV Contrast Only Reason: LLQ abdominal pain; Clinical Question(s): Abscess TECHNIQUE: Spiral CT through the abdomen and pelvis with IV contrast formatted in 3 planes. 100 cc of Omnipaque 300 was administered intravenously. This study was performed without oral contrast. Weight-based protocol using automatic tube modulation was used to optimize exposure parameters. COMPARISON: Multiple priors, most recently CT abdomen pelvis dated 03/15/2022 FINDINGS: Right hepatic lobe hemangioma is unchanged. Rai catheter within a decompressed urinary bladder. Gas in the urinary bladder related to the Rai catheter. No acute process in the abdomen or pelvis IMPRESSION: No acute process in the abdomen and pelvis. Examination is unchanged from 03/15/2022 I have personally reviewed the images and I agree with this report. WSN: [id number] Ordering Physician: Enoch Self Dictated By: Breanna Whitley MD Dictated Date/Time: 07/29/22 9:52 pm Reviewed By: Alvaro Arce MD Signed By: Alvaro Arce MD Signed Date/Time: 07/29/22 9:57 pm Transcribed By: SOLOMON Transcribed Date/Time: 07/29/22 9:40 pm Vital Signs Most recent to oldest [Reference Range]: 1 2 3 Height 166 cm (08/01/22 12:39 PM) 166 cm (08/01/22 8:16 AM) 166 cm (07/30/22 6:47 AM) Weight 126.3 kg (07/30/22 6:47 AM) Oxygen Saturation [94-100 %] 91 % *L* (08/01/22 12:39 PM) 88 % *L* (08/01/22 8:16 AM) 90 % *L* (07/31/22 7:00 PM) Pulse Rate [55-90 bpm] 69 bpm (08/01/22 12:39 PM) 72 bpm (08/01/22 9:21 AM) 72 bpm (08/01/22 8:16 AM) Body Mass Index [18.5-24.99 kg/m2] 45.83 kg/m2 *>HHI* (07/30/22 6:47 AM) Blood Pressure [90-138/55-84 mm Hg] 142/54mm Hg *H* (08/01/22 12:39 PM) 146/64mm Hg *H* (08/01/22 9:21 AM) 145/64mm Hg *H* (08/01/22 9:21 AM) Respiratory Rate [16-30 br/min] 20 br/min (08/01/22 12:39 PM) 18 br/min (08/01/22 10:21 AM) 18 br/min (08/01/22 9:21 AM) Temperature [96.8-100.4 DegF] 98.4 DegF (08/01/22 12:39 PM) 98.4 DegF (08/01/22 8:16 AM) 97.8 DegF (07/31/22 7:00 PM) Mode of Delivery (Oxygen) Room air (08/01/22 12:39 PM) Room air (08/01/22 8:16 AM) Room air (07/31/22 7:00 PM) Blood pressure sites Arm, left (08/01/22 12:39 PM) Arm, right (08/01/22 8:16 AM) Arm, right (07/31/22 7:00 PM) Temperature Route Oral (08/01/22 12:39 PM) Oral (08/01/22 8:16 AM) Oral (07/31/22 7:00 PM) Dry Weight 126.3 kg (07/30/22 6:47 AM) Social History Social History Type Response Smoking Status Former smoker; Tobac co user in household: No entered on: 01/17/17 Sex Admission evaluation note * Jerrod GONZALEZ, Isauro Ahuja: PERFORM Event Display: Admission Note Authored Date: Patient: ??ALEAH ADAM ? Age:??71 Years?Sex:??Female?:??1950?? Chief Complaint/Reason for Consultation ? UTI sediment and blood in f/c History of Present Illness Aleah is a 71 yo with PMH COPD not on home O2, asthma, DMII with neuropathy, neurogenic bladder with chronic rai , and a fib on eliquis who presents for a sensation of frequency with increasing sediment in the Rai catheter and recurrent abdominal tenderness. ?? Patient was discharged from the hospital on 07/13 after being admitted for COPD exacerbation and recurrent UTI. ?? She was on Levaquin for 2 weeks. Patient states that she has been being treated for a persistent UTI for the last 2 weeks.?? She initially started on Macrobid and was transitioned to Levaquin when her symptoms did not resolve.?? She notes that at the beginning of the week her symptoms did finally resolve but that several days ago she had recurrence of sediment in the Rai catheter bag as well asa sensation of frequency and some mild abdominal pain.?? The last time her Rai catheter was changed was 07/19/2022 when she presented to this emergency department for leakage of the Rai.?? She is otherwise been having normal bowel movements.?? She denies chest pain, shortness of breath, fever, ba ck pain, flank pain, cough, vomiting, diarrhea.?? She did note a small amount of blood in her urinepreviously but there is none now. ?? Vitally stable.?? UA is positive.?? Labs unremarkable.?? Blood culture and urine culture sent.??Started on Zosyn Review of Systems negative except mentioned above Objective Vital Signs?? Temperature: 98.1 DegF (07/29/22 19:01:00) Temperature Route: Oral (07/29/22 19:01:00) Pulse Rate: 74 bpm (07/29/22 22:32:00) Respiratory Rate:??15 br/min??Low (07/29/22 22:32:00) Systolic Blood Pressure:??157 mm Hg??High (07/29/22 22:32:00) Diastolic Blood Pressure: 59 mm Hg (07/29/22 22:32:00) Blood pressure sites: Arm, right (07/29/22 22:32:00) Mean Arterial Pressure: 101 mm Hg (07/29/22 19:01:00) Pulse Pressure: 97 mm Hg (07/29/22 19:01:00) Oxygen Saturation: 97 % (07/29/22 22:32:00) Mode of Delivery (Oxygen): Room air (07/29/22 22:32:00) Early Warning Score: 0 (07/29/22 23:33:03) ? Physical Exam General? Alert and oriented. Not in acute distress and lying comfortably in bed Eyes - PERRLA, EOM intact?? ENT ??? Anicteric, no pallor, moist mucous membranes?? Neck - Supple, without lymphadenopathy or thyromegaly.?? Cardiovascular ??? S1 S2 heard, RRR no m/r/g, no JVD, no carotid bruits?? Lungs - Clear to auscultation with equal air entry on both sides. No use of accessory muscles, no crackles or wheezes.?? Skin - No rashes, skin warm and dry, no erythematous areas?? Abdomen - abdomen soft and non-tender. No hepatosplenomegaly. Normal bowel sounds Extremities - No edema, cyanosis or clubbing; peripheries warm and perfusing well?? Neuro - Alert and oriented x 3, no focal neurological deficits?? Psych ??? Calm and cooperative with normal mood and affect Assessment/Plan ??Aleah is a 71 yo with PMH COPD not on home O2, asthma, DMII with neuropathy, neurogenic bladder with chronic rai , and a fib on eliquis who presents for a sensation of frequency with increasing sediment in the Rai catheter and recurrent abdominal tenderness. admitted for recurrent UTI and failing outpatient therapy ?? Recurrent UTI Neurogenic Bladder Chronic indwelling catheter Patient has recurrent UTI Was discharged on 07/13 on Levaquin and completed the course 1 week With a course of Macrobid??before Levaquin and??symptoms recur No systematic symptoms ?? Plan -Was started on Zosyn by the ED will continue until more information available. Follow-up on blood culture Follow-up on urine culture Monitor labs and kidney function Consult ID ? Chronic / stable issues Groin rash: Pt has groin rash likely 2/2 irritation from urine contact with skin. Keep chronic catheter in place. Wound care A fib: continue home eliquis 5mg BID and metoprolol 50mg BID HTN: Continue Lasix and lisinopril Venous stasis: Compression socks on RLE and elevation of legs as tolerated HLD: Continue home simvastatin Neuropathy: Continue home gabapentin 300mg TID DMII: continue home 64 units glargine at bedtime, with ISS POC TID ? Quality Measures DVT prophylaxis: Eliquis 5mg BID for A fib Diet: diabetic Code Status: full code -- confirmed on admission Histories Allergies Allergies ?(Active and Proposed Allergies Only) Silvadene? (Severity: Unknown severity, Onset: Unknown) ?Reactions: unsure, skin alicea ? Past Medical History/Problem List Active Problems??(14) Afib Cataract Chronic diastolic congestive heart failure Chronic obstructive lung disease COVID-19 Diabetes mellitus type 2 Hypertensive disorder Morbid obesity Neurologic disorder associated with type II diabetes mellitus Obesity Paraparesis of both lower limbs Postmenopausal bleeding Severe obesity Shortness of breath ? Past Surgical History cataract surgery ? Social History Patient lives alone Non-smoker Denies alcohol ? Family History Negative for CAD ? Medications Home Medications Albuterol (albuterol CFC free 90 mcg/inh inhalation aerosol)?1?puff(s)?Inhalation?4 times a day?as needed?as needed for wheezing Albuterol (albuterol 0.083% inhalation solution)?3?Milliliter?2.5?Milligram?Neb?Every 6 hours?as needed?as needed for wheezing Albuterol/Ipratropium (albuterol-ipratropium 3 mg-0.5 mg/3 ml inhalation solution)?3?Milliliter?BAND Nebulizer?4 times a day?as needed?Wheezing/Shortness of Breath apixaban (Eliquis 5 mg oral tablet)?1?tab(s)?5?Milligram?By Mouth?2 times a day Aspirin (Aspirin Low Dose 81 mg oral delayed release tablet)?1?tab(s)?81?Milligram?By Mouth?Daily Ergocalciferol (Vitamin D2 50,000 intl units (1.25 mg) oral capsule)?1?capsule?50,000?International Unit?By Mouth?Every 7 days Fluticasone (Flovent Diskus 100 mcg/inh inhalation powder)?1?puff(s)?100?Microgram?Inhalation?2 times a day Furosemide (Lasix 80 mg oral tablet)?80?Milligram?1?tablet?By Mouth?2 times a day?for 30?Days Gabapentin (gabapentin 300 mg oral capsule)?300?Milligram?1?capsule?By Mouth?2 times a day Insulin Glargine (Lantus Inj)?64?unit(s)?Subcutaneous Injection?Daily in AM Insulin Lispro (Humalog Kwik Pen 100 units/mL subcutaneous injection)?Subcutaneous Injection?3 times a day before meals?As directed per sliding scale. 0-8 units per patient. Lisinopril (lisinopril 10 mg oral tablet)?10?Milligram?1?tablet?By Mouth?Daily Metformin (metFORMIN 850 mg oral tablet)?1?tab(s)?850?Milligram?By Mouth?2 times a day Metoprolol (Metoprolol Tartrate 50 mg oral tablet)?1?tab(s)?50?Milligram?By Mouth?2 times a day Simvastatin (simvastatin 40 mg oral tablet)?40?Milligram?1?tablet?By Mouth?Daily at bedtime ? Results ?? Test Name Test Result Date/TimeWBC 9.2 k/mm3 07/29/2022 19:45 EST RBC 5.10 m/mm3 07/29/2022 19:45 EST Hgb 14.1 Gm/dL 07/29/2022 19:45 EST Hct 44.0 % 07/29/2022 19:45 EST MCV 86.3 femtoliters 07/29/2022 19:45 EST MCH 27.6 pg 07/29/2022 19:45 EST MCHC 32.0 g/dL (Low) 07/29/2022 19:45 EST Platelet Count 192 k/mm3 07/29/2022 19:45 EST Sodium 137 mmol/L 07/29/2022 19:45 EST Potassium 4.3 mmol/L 07/29/2022 19:45 EST Chloride 94 mmol/L (Low) 07/29/2022 19:45 EST Bicarbonate Level 36 mmol/L (High) 07/29/2022 19:45 EST Anion Gap 7 07/29/2022 19:45 EST Glucose Level 322 mg/dL (High) 07/29/2022 19:45 EST BUN 20 mg/dL 07/29/2022 19:45 EST Creatinine-Blood 0.5 mg/dL 07/29/2022 19:45 EST ?? Hospital Progress note * Rock FARNSWORTH, Natalie: MODIFY, SIGN, VERIFY, PERFORM Event Display: Progress Note Hospital Authored Date: Patient: ALEAH ADAM Age: 71 years Sex: Female : 1950 Associated Diagnoses: None Author: Rock FARNSWORTH, Natalie Findings Problem Related to Alteration in Genitourinary : Alteration in Genitourinary Function/new 08/01/2022 0:00 EST Alteration in Status Related to UTI Goals & Outcomes, Genitourinary Pt will maintain adequate function appropriate for pt, Pt will resume normal pattern of elimination Interventions, Assess/monitor/maintain Genitourinary status, Assist & encourage pt with meticulous erika care, Encourage PO fluid intake as allowed by diet BH Goals/Interventions, Genitourinary Yes Genitourinary, Problem Start 07/30/2022 7:01 Reviewed Plan with, Genitourinary Patient Patient Progression, Genitourinary Patient progressing according to plan Genitourinary, Problem Ongoing Yes . Nursing Data Vital Signs : VITAL SIGNS SECTION 07/31/2022 19:00 EST Temperature 97.8 DegF Temperature Route Oral Pulse Rate 76 bpm Respiratory Rate 18 br/min Systolic Blood Pressure 119 mm Hg Diastolic Blood Pressure 77 mm Hg Blood pressure sites Arm, right Pulse Pressure 42 mm Hg Oxygen Saturation 90 % L Mode of Delivery (Oxygen) Room air . Narrative/Incidental Patient A+OX4, able to make needs known. Denies pain, chest pain. No s/s SOB or acute respiratory distress noted. Sating well on room air. POC 373. Covering provider Lili Watt notified, stat POC ordered-316. No insulin coverage ordered. Rai in place, draining clear yellow urine. No leakage noted around the catheter on this shift. Call light within reach. Rounding frequently to ensure patientsafety and comfort.. * Zechariah Boswell DO: MODIFY, MODIFY, PERFORM, MODIFY, MODIFY, MODIFY Event Display: Progress Note Hospital Authored Date: Patient: ??ALEAH ADAM ? Age:??71 Years?Sex:??Female?:??1950?? Subjective 71 yo with PMH COPD not on home O2, asthma, DMII with neuropathy, neurogenic bladder with chronic rai , and a fib on eliquis who presents for a sensation of frequency with increasing sediment in the Rai catheter and recurrent abdominal tenderness. ?? She was admitted for concern??of a possible UTI and started on Zosyn She was seen by??infectious disease DrMena??Vahid Goncalves, appreciate his consult, who recommended continuing Zosyn pending cultures The patient had treatment recently with Levaquin and Macrobid??and it is unclear if urine??infection had been documented She has??chronic issues with??having urinary leakage and an appropriately sized??catheters and??urinary balloon volumes Apparently according to previous urology notes which I reviewed in [facility] she requires??a 24 English catheter with 45 mL volume fill It looks like according to the nursing notes that this was the type of catheter and urine fill volume??that was done when the catheter was replaced in ED but I am trying to confirm that presently The patient reports??no urinary symptoms presently and no urinary leakage Urine is clear yellow in Rai Patient is afebrile with no clinical signs of sepsis ?? I have discontinued the Zosyn??today and we will follow-up official urine culture I discussed with the patient??that she will likely be discharged tomorrow??if she is clinically well??and the culture does not show??any new findings??suggesting need for antibiotic rx We discussed the need to follow-up with urology as well ?? I reviewed the ED notes personally as well as outpatient??urology notes as well as inpatient ID consultation note I reviewed the patient's prior microbiology labs as well Review of Systems Objective Measurements?? Height: 166 cm (07/30/22) Weight: 126.3 kg (07/30/22) Dry Weight: 126.3 kg (07/30/22) Body Mass Index:??45.83 kg/m2??Critical (07/30/22) ? Vital Signs?? Temperature: 98.1 DegF (07/31/22 07:00:00) Temperature Route: Oral (07/31/22 07:00:00) Pulse Rate: 70 bpm (07/31/22 08:49:00) Respiratory Rate: 18 br/min (07/31/22 08:49:00) Systolic Blood Pressure: 116 mm Hg (07/31/22 08:49:00) Systolic Blood Pressure: 116 mm Hg (07/31/22 08:49:00) Diastolic Blood Pressure: 61 mm Hg (07/31/22 08:49:00) Diastolic Blood Pressure: 61 mm Hg (07/31/22 08:49:00) Blood pressure sites: Arm, right (07/31/22 07:00:00) Pulse Pressure: 55 mm Hg (07/31/22 07:00:00) Oxygen Saturation:??92 %??Low (07/31/22 07:00:00) Mode of Delivery (Oxygen): Room air (07/31/22 07:00:00) Early Warning Score: 2 (07/31/22 12:28:11) ? Intake/Output? 07/29 22:48 07/31 07:00 07/30 07:00 07/29 07:00 07/28 07:00 ?? 07/31 14:29 07/31 14:29 07/31 06:59 07/30 06:59 07/29 06:59 Intake ?0 ?0 ?0 ?0 ?0 Output ? 8000 ?0 ? 7100 ?900 ?0 Net Total ?-8000 ?0 ?-7100 ? -900 ?0 ? Physical Exam Alert and oriented x3 in no distress Head neck normocephalic atraumatic Regular rate and rhythm with no rub Abdomen soft nontender obese Lower extremities warm globally perfused Chronic venous stasis changes??in both lower extremities Good capillary refill No CVAT Urine color as below??in the picture Images rai _ Inpatient Medications Medications (21) Active SCHEDULED: (12) Albuterol/Ipratropium Inhalation Lisa 3mL (Duoneb Inhalation Solution) ??1 vials, BAND Nebulizer, 4 times a day Apixaban 5 mg Tablet (Eliquis) ??5 mg, By Mouth, 2 times a day Aspirin 81 mg EC Tablet (aspirin 81 mg oral delayed release tablet) ??81 mg, By Mouth, Daily Furosemide 80 mg Tablet (Lasix 80 mg oral tablet) ??80 mg, By Mouth, 2 times a day Gabapentin 300 mg Capsule (gabapentin 300 mg oral capsule) ??300 mg, By Mouth, 2 times a day Insulin Glargine 100 units/mL Inj (Lantus Inj) ??64 units 0.64 mL, Subcutaneous Injection, Daily Alejandro Insulin Lispro 100 units/mL Inj (3mL) (Insulin LISPRO Sliding Scale) ??2-12 units, Subcutaneous Injection, 3 times a day before meals Lisinopril 10 mg Tablet (lisinopril 10 mg oral tablet) ??10 mg, By Mouth, Daily Metoprolol 50 mg Tablet (Lopressor 50 mg oral tablet) ??50 mg, By Mouth, 2 times a day NaCl 0.9% Flush 3ml (NaCL 0.9% Flush) ??3 mL, IV Push, Every 8 hours Piperacillin/Tazobactam 3.375 Gm Inj (Zosyn Extended IVPB) ??3.375 Gm, IVPB, Every 8 hours Simvastatin 20 mg Tablet (simvastatin 20 mg oral tablet) ??40 mg, By Mouth, Daily at bedtime CONTINUOUS: (0) PRN: (9) Acetaminophen 325 mg Tablet (Acetaminophen Tablet) ??650 mg, By Mouth, Every 4 hours Albuterol/Ipratropium Inhalation Lisa 3mL (Duoneb Inhalation Solution) ??1 vials, BAND Nebulizer, Every 4 hours Dextromethorphan-Guaifenesin 20 mg-200 mg/10 mL Liqu UD (Robitussin DM Liquid) ??10 mL, By Mouth, Every 4 hours Melatonin 3 mg Tablet (Melatonin Tablet) ??3 mg, By Mouth, Daily at bedtime NaCl 0.9% Flush 3ml (NaCL 0.9% Flush) ??3 mL, IV Push, Every 8 hours Polyethylene Glycol 17 Gm Powder (MiraLax Powder) ??17 Gm 1 pack/packet, By Mouth, Daily Polyvinyl Alcohol 1.4% Opthalmic Solution/Artificial Tears (Artificial Tears 1.4%) ??2 drops, Eye, Left, 2 times a day Senna 8.6 mg / Docusate 50 mg tablet (Docusate/Senna Tablet) ??1 tablet, By Mouth, 2 times a day Simethicone 80 mg Chewable Tablet (Simethicone Tablet) ??80 mg, Chew, 3 times a day ? 72 Hour Antibiotic History Active Antibiotics Calendar Day Last Administered First Administered Piperacillin-Tazobactam??3.375 Gm, 25 mL/hr, IVPB, Every 8 hours ?2 07/31/2022 08:47 07/30/2022 08:49 ? Stopped Antibiotics Stop Date/Time Last Administered First Administered Piperacillin-Tazobactam??3.375 Gm, 25 mL/hr, IVPB, Once 07/29/2022 22:58 07/29/2022 22:58 07/29/2022 22:58 ? Results Microbiology ?? Urine Culture?? Completed?? Source: Urine Straight Cath Body Site: ?? Collected Dt/Tm: 07/29/2022 19:22 Last Updated Dt/Tm: 07/29/2022 21:20 ?SPECIMEN DESCRIPTION : URINE STRAIGHT CATH.SPECIAL REQUESTS : NONECULTURE : Mixed bacterial carlito, characteristic of urogenital contamination. ? Please consult laboratory ([id number]) within 24 hours of receipt of result ? if more definitive studies may be clinically indicated.REPORT STATUS : FINAL 07/31/2022 COVID-19 (Novel Coronavirus), Rapid PCR?? Completed?? Source: Nasal Body Site: Nose Collected Dt/Tm: 07/29/2022 22:45 Last Updated Dt/Tm: 07/30/2022 04:01 ? Test Name Test Result Date/TimeWBC 6.7 k/mm3 07/31/2022 05:46 EST Hgb 14.2 Gm/dL 07/31/2022 05:46 EST Platelet Count 181 k/mm3 07/31/2022 05:46 EST Sodium 138 mmol/L 07/31/2022 05:46 EST Potassium 4.2 mmol/L 07/31/2022 05:46 EST BUN 13 mg/dL 07/31/2022 05:46 EST Creatinine-Blood 0.5 mg/dL 07/31/2022 05:46 EST Assessment/Plan Acute dysuria and lower abdominal pain Possible??urinary tract infection, associated??with??chronic indwelling catheter, present on admission Neurogenic Bladder History of atrial fibrillation on Eliquis History of hypertension History of chronic venous stasis??in bilateral lower extremities History of hyperlipidemia 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 Patient with complex urology??history as outlined above I think it is more likely her urinary symptoms are related to??chronic issues surrounding urethral dilatation, need for??larger Rai catheter and balloon inflation rai replaced in ED appreciate ID consultation We will discontinue Zosyn today??as I suspect final urine cultures will be??negative If that is the case, she can be discharged??tomorrow I would withhold any antibiotics unless clinical signs of infection and??appropriate??culture data If any issues with urinary leakage or new symptomology, consult urology We will try and avoid antibiotics in the future with this patient??unless infection carefully established or clinical evidence??suggest active infection Was discharged on 07/13 on Levaquin and completed the course 1 week Continue Eliquis and metoprolol Continue Lasix and lisinopril Continue simvastatin Continue gabapentin Continue??basal bolus insulin ?? VTE prophylaxis: Eliquis CODE STATUS: Full ?? 51 minutes spent on this visit including a physical exam, lab review, medicine review, review of urology note from 08/2021,??review of??ED notes and ID consult note and??microbiology results over the last year [id number]?? * Melodie Ruby RN: PERFORM, SIGN, VERIFY Event Display: Progress Note Hospital Authored Date: [id number] Patient: ALEAH ADAM Age: 71 years Sex: Female : 1950 Associated Diagnoses: None Author: Melodie Ruby RN Findings Problem Related to Alteration in Genitourinary : Alteration in Genitourinary Function/new 07/31/2022 2:00 EST Alteration in Status Related to UTI Goals & Outcomes, Genitourinary Pt will maintain adequate function appropriate for pt, Pt will resume normal pattern of elimination Interventions, Assess/monitor/maintain Genitourinary status, Assist & encourage pt with meticulous erika care BH Goals/Interventions, Genitourinary Yes Genitourinary, Problem Start 07/30/2022 7:01 Reviewed Plan with, Genitourinary Patient Patient Progression, Genitourinary Patient progressing according to plan Genitourinary, Problem Ongoing Yes . Nursing Data Biophysical Data. Vital Signs : VITAL SIGNS SECTION 07/30/2022 20:41 EST Pulse Rate 70 bpm Respiratory Rate 22 br/min Systolic Blood Pressure 162 mm Hg H Diastolic Blood Pressure 76 mm Hg 07/30/2022 20:00 EST Temperature 98.3 DegF Temperature Route Oral Pulse Rate 73 bpm Systolic Blood Pressure 163 mm Hg H Diastolic Blood Pressure 72 mm Hg Pulse Pressure 91 mm Hg Oxygen Saturation 90 % L Mode of Delivery (Oxygen) Room air . Evaluation Pt alert and oriented able to make needs known. No acute events overnight. Pt denies pain and appears comfortable. P: Pt has recurrent UTI I: Rai care completed. Pt receiving IV Zosyn. E: Pt has chronic Rai d/t neurogenic bladder. Pt Rai care completed and antibiotics administered. Safety precautions in place with purposeful hourly rounding performed. Please refer to MAR and biophysical for further assessment.. Note * Gigi FARNSWORTH, Rosario: PERFORM Event Display: Discharge/Transfer Note Hospital Authored Date: [id number] Nursing Discharge Note Entered On: 08/01/2022 13:07 EST Performed On: 08/01/2022 13:07 EST by Rosario Yu RN Nursing Discharge Note 2 Discharge Time : 08/01/2022 13:07 EST Discharge Level of Care at Discharge : Home/[facility] Patient Left Unit Via : Ambulance Patient Accompanied Off Unit with : Ambulance/Chair Van Personnel Handover Given to Transport Personnel : Yes DC Instructions Provided & Signed by Pt : Yes Patient Understands D/C Instructions : Yes Verbalized Understanding of D/C Plan By : Patient Patient Instructions Discharge Signed : Yes Did Pt have Specialty Bed or Wound Vac : Yes Rosario Yu RN - 08/01/2022 13:07 EST * Bishnu Darden MD: PERFORM, MODIFY Event Display: Discharge/Transfer Note Hospital Authored Date: [id number] Patient: ??ALEAH ADAM ? Age:??71 Years?Sex:??Female?:??1950?? 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 Diabetes mellitus type 2 _ Discharge Medications Albuterol (albuterol 0.083% inhalation solution)?3?Milliliter?2.5?Milligram?Neb?Every 6 hours?as needed?as needed for wheezing Albuterol (albuterol CFC free 90 mcg/inh inhalation aerosol)?1?puff(s)?Inhalation?4 times a day?as needed?as needed for wheezing Albuterol/Ipratropium (albuterol-ipratropium 3 mg-0.5 mg/3 ml inhalation solution)?3?Milliliter?BAND Nebulizer?4 times a day?as needed?Wheezing/Shortness of Breath apixaban (Eliquis 5 mg oral tablet)?1?tab(s)?5?Milligram?By Mouth?2 times a day Aspirin (Aspirin Low Dose 81 mg oral delayed release tablet)?1?tab(s)?81?Milligram?By Mouth?Daily Ergocalciferol (Vitamin D2 50,000 intl units (1.25 mg) oral capsule)?1?capsule?50,000?International Unit?By Mouth?Every 7 days Fluticasone (Flovent Diskus 100 mcg/inh inhalation powder)?1?puff(s)?100?Microgram?Inhalation?2 times a day Furosemide (Lasix 80 mg oral tablet)?80?Milligram?1?tablet?By Mouth?2 times a day?for 30?Days Gabapentin (gabapentin 300 mg oral capsule)?300?Milligram?1?capsule?By Mouth?2 times a day Insulin Glargine (Lantus Inj)?64?unit(s)?Subcutaneous Injection?Daily in AM Insulin Lispro (Humalog Kwik Pen 100 units/mL subcutaneous injection)?Subcutaneous Injection?3 times a day before meals?As directed per sliding scale. 0-8 units per patient. Lisinopril (lisinopril 10 mg oral tablet)?10?Milligram?1?tablet?By Mouth?Daily Metformin (metFORMIN 850 mg oral tablet)?1?tab(s)?850?Milligram?By Mouth?2 times a day Metoprolol (Metoprolol Tartrate 50 mg oral tablet)?1?tab(s)?50?Milligram?By Mouth?2 times a day Ocular Lubricant (ocular lubricant - solution)?2?Drops?Eye, Left?2 times a day?as needed?Other?Dryness. Simvastatin (simvastatin 40 mg oral tablet)?40?Milligram?1?tablet?By Mouth?Daily at bedtime Medications Started none Medications Discontinued none Doses Changed none Allergies Allergies ?(Active and Proposed Allergies Only) Silvadene? (Severity: Unknown severity, Onset: Unknown) ?Reactions: unsure, skin alicea ? PCP Follow-Up/Heads-Up follow up final blcs drawn on 07/29 Pt was noted to have uncontrolled diabetes, a1c 10.2, consider starting GLP-1 agonist outpatient Ensure urology follow up?? Hospital Course 71-year-old female with PMH of COPD not on home O2, asthma, DMII with neuropathy, neurogenic bladder with chronic rai , and a fib on eliquis, who presented with sensation of frequency with increasing sediment in the Rai catheter and recurrent abdominal tenderness. She was recently discharged on07/13 for Levaquin for UTI and completed a 1 week course on 07/18. Her UA showed pyuria ans she was started on Zosyn for concern of UTI. ID was consulted for recurrent complicated UTIs. She was noted to have chronic issues with having urinary leakage and an appropriately sized catheters and urinary balloon volumes - according to previous urology notes she requires a 24 English catheter with 45 mL volume fill. Her rai had been replaced in the ED according to the aforementioned parametrs. Zosyn was discontinued on 07/31 for low suspicion of infection. UCS from 07/29 finalized with mixed bacterial carlito, characteristic of urogenital contamination. She is comfortable and hemodynamically stable at time of discharge. ?? Objective Assessment/Plan Acute dysuria and lower abdominal pain - resolved Possible??urinary tract infection, associated??with??chronic indwelling catheter, present on admission - resolved Neurogenic Bladder Pt's urinary symptoms are likely related to??chronic issues surrounding urethral dilatation, need for??larger Rai catheter and balloon inflation rai replaced in ED final urine culture suggestive of urogenital contamination Recommendations: - follow up with urology outpatient - continue regular rai catheter care -??try and avoid antibiotics in the future with this patient??unless infection carefully established or clinical evidence??suggest active infection ?? 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 Chronic, Stable or Resolved Conditions: History of atrial fibrillation on Eliquis: Continue Eliquis and metoprolol History of hypertension: Continue Lasix and lisinopril History of hyperlipidemia: Continue simvastatin History of chronic venous stasis??in bilateral lower extremities ?? . Physical Exam General: sitting comfortably, alert, in no acute distress Cardiovascular: RRR; S1 and S2 audible with no murmurs, rubs or gallops Respiratory: Clear to auscultation. No wheezing, rales or rhonchi. GI: soft, non-tender, non-distended abdomen with normal bowel sounds Neuro: AAO x3, Speech: normal, no facial droop, moving all 4 extremities Psychiatric: Normal mood and affect?? Consultants ID: Sacha GONZALEZ, Vahid Watt Pending Results Blood Culture ordered on 07/29/2022 Blood Culture #2 ordered on 07/29/2022 COVID-19 (2019 Novel Coronavirus) PCR ordered on 08/01/2022 Urinalysis w/hold for Urine Culture ordered on 07/29/2022 Patient Education Titles Rai Catheter Care?? Diet: Diabetes?? Follow-Up Appointments Added Follow Up ?Time Frame ?Comments Hansel GONZALEZ , Cherise Bolden?3-5 day: call to discuss follow up visit Patient Instructions You were admitted to the hospital for concern of urinary infection. Your rai catheter was changedin the ED. After thorough work up which ruled out infection, it is my understanding that your urinary symptoms are likely due to issues surrounding your rai catheter and not having had the appropriate size tubing for you. Please??call your??urologist and PCP to set up post-hospital follow up. Home Health Face to Face ^HomeHealthFTF Results Discharge Labs BLOOD COUNT & DIFF WBC 6.7 k/mm3 ()?? 07/31/2022 05:46 RBC 5.18 m/mm3 ()?? 07/31/2022 05:46 Hgb 14.2 Gm/dL ()?? 07/31/2022 05:46 Hct 45.3 % ()?? 07/31/2022 05:46 MCV 87.5 femtoliters ()?? 07/31/2022 05:46 MCH 27.4 pg ()?? 07/31/2022 05:46 MCHC 31.3 g/dL (Low)?? 07/31/2022 05:46 Platelet Count 181 k/mm3 ()?? 07/31/2022 05:46 RDW-SD 47.8 femtoliters (High)?? 07/31/2022 05:46 MPV 11.7 femtoliters ()?? 07/31/2022 05:46 Nucleated RBC (Automated) 0.0 #/100 WBC'S ()?? 07/31/2022 05:46 Abs. NRBC 0.0 k/mm3 ()?? 07/31/2022 05:46 Abs. Neut 7.1 k/mm3 (High)?? 07/29/2022 19:45 Abs. Lymph 1.4 k/mm3 ()?? 07/29/2022 19:45 Abs. [place] 0.6 k/mm3 ()?? 07/29/2022 19:45 Abs. Eo 0.0 k/mm3 ()?? 07/29/2022 19:45 Abs. Baso 0.0 k/mm3 ()?? 07/29/2022 19:45 Neut % 76.9 % (High)?? 07/29/2022 19:45 Lymph % 15.6 % ()?? 07/29/2022 19:45 [place] % 6.4 % ()?? 07/29/2022 19:45 Eos % 0.4 % ()?? 07/29/2022 19:45 Baso % 0.3 % ()?? 07/29/2022 19:45 Imm Gran 0.4 % ()?? 07/29/2022 19:45 Abs. Imm Gran 0.0 k/mm3 ()?? 07/29/2022 19:45 ?? CHEM GENERAL Sodium 138 mmol/L ()?? 07/31/2022 05:46 Potassium 4.2 mmol/L ()?? 07/31/2022 05:46 Chloride 94 mmol/L (Low)?? 07/31/2022 05:46 Bicarbonate Level 34 mmol/L (High)?? 07/31/2022 05:46 Anion Gap 10 ()?? 07/31/2022 05:46 Glucose Level 265 mg/dL (High)?? 07/31/2022 05:46 Glucose, POC 318 mg/dL (High)?? 08/01/2022 11:33 Hemoglobin A1C (Monitoring) 10.5 % (High)?? 07/31/2022 05:46 BUN 13 mg/dL ()?? 07/31/2022 05:46 Creatinine-Blood 0.5 mg/dL ()?? 07/31/2022 05:46 Estimated GFR Creatinine 103 ML/MIN/1.73 M2 ()?? 07/31/2022 05:46 Calcium 8.7 mg/dL ()?? 07/31/2022 05:46 Phosphorus 3.7 mg/dL ()?? 07/31/2022 05:46 Magnesium 1.6 mg/dL ()?? 07/31/2022 05:46 Protein, Total 6.3 Gm/dL ()?? 07/29/2022 19:45 Albumin 3.9 Gm/dL ()?? 07/29/2022 19:45 AG Ratio 1.6 ()?? 07/29/2022 19:45 Alkaline Phosphatase 151 units/L (High)?? 07/29/2022 19:45 Lipase 14 units/L ()?? 07/29/2022 19:45 AST (SGOT) 10 units/L ()?? 07/29/2022 19:45 ALT (SGPT) 17 units/L ()?? 07/29/2022 19:45 Bilirubin, Total 0.4 mg/dL ()?? 07/29/2022 19:45 Lactate 1.3 mmol/L ()?? 07/29/2022 22:12 ? HEME OTHER Hold Blue Top SPECIMEN DISCARDED AFTER 4 HOURS. ()?? 07/29/2022 19:45 ? MISC. CHEMISTRY Hold Green Top SPECIMEN DISCARDED AFTER 1 WEEK ()?? 07/29/2022 19:45 Procalcitonin 0.03 ng/mL ()?? 07/31/2022 05:46 ?? UA/URINALYSIS Appear/Color, Urine PINK ()?? 07/29/2022 21:22 Specific [place], Urine >1.050 (High)?? 07/29/2022 21:22 pH, Urine 6.5 ()?? 07/29/2022 21:22 Albumin, Urine 1+ (Abnormal)?? 07/29/2022 21:22 Glucose, Urine 3+ (Abnormal)?? 07/29/2022 21:22 Ketones, Urine TRACE (Abnormal)?? 07/29/2022 21:22 Bilirubin, Urine NEGATIVE (N)?? 07/29/2022 21:22 Hemoglobin, Urine 3+ (Abnormal)?? 07/29/2022 21:22 Nitrite, Urine NEGATIVE (N)?? 07/29/2022 21:22 Leukocyte, Urine 3+ (Abnormal)?? 07/29/2022 21:22 Urobilinogen NORMAL mg/dL (N)?? 07/29/2022 21:22 WBC's, Urine >182 /HPF (High)?? 07/29/2022 21:22 RBC's, Urine >182 /HPF (High)?? 07/29/2022 21:22 Bacteria MODERATE HPF (Abnormal)?? 07/29/2022 21:22 ?? VIROLOGY COVID-19 by RT-PCR NEGATIVE ()?? 07/30/2022 03:09 ? Microbiology ?? Urine Culture?? Completed?? Source: Urine Straight Cath Body Site: ?? Collected Dt/Tm: 07/29/2022 19:22 Last Updated Dt/Tm: 07/29/2022 21:20 ?SPECIMEN DESCRIPTION : URINE STRAIGHT CATH.SPECIAL REQUESTS : NONECULTURE : Mixed bacterial carlito, characteristic of urogenital contamination. ? Please consult laboratory ([id number]) within 24 hours of receipt of result ? if more definitive studies may be clinically indicated.REPORT STATUS : FINAL 07/31/2022 COVID-19 (Novel Coronavirus), Rapid PCR?? Completed?? Source: Nasal Body Site: Nose Collected Dt/Tm: 07/29/2022 22:45 Last Updated Dt/Tm: 07/30/2022 04:01 ? Patient care discussed with attending, ??Getachew. ?? Bishnu Darden MD Internal Medicine PGY-2 Pager # [phone] 30??minutes spent on discharge * Selena Chilel MD: PERFORM Event Display: Discharge/Transfer Note Hospital Authored Date: [id number] Attending Attestation: I have seen and evaluated this patient.?? I have discussed the case and its management with the resident and agree with the findings and plan as documented in the resident???s note. * Rosario Yu RN: PERFORM Event Display: Patient Education/Instruction Authored Date: [id number] Inpatient Adult Discharge Instructions [address] [address] Name: ALEAH ADAM : 1950 Visit: 07/29/2022 22:48:00 Current Date: 08/01/2022 12:39 Account: [id number] Inpatient Adult Discharge Instructions We would like to thank you for allowing us to assist you with your healthcare needs. The following includes patient education materials and information regarding your injury/illness. Our entire staffstrives to provide an excellent experience for our patients and their families. PLEASE ENSURE YOU FOLLOW-UP PER THE INSTRUCTIONS BELOW! ?? YOUR OPINION IS IMPORTANT TO US! Please complete the survey you may receive by mail or email. Your feedback will be used to make improvements to the healthcare experiences of our patients and their families. Surveys are administered by [employer] ?? If further treatment with your primary care physician or another doctor is recommended, it is important for you to keep the appointment. Call your primary care physician or return to the Emergency Department immediately if your condition worsens, fails to improve, or new symptoms develop. If you need to find a doctor, you can call [facility] for a referral at [phone] or toll free at [phone]) or log in to [email or web address].. ?? You can view and manage your care through the patient portal or by using a health care shaneka of your choosing. [employer] is a website that allows you to securely view your medical information including your hospital discharge summary, office visit summaries, medications and follow-up visits. You can also request appointments, renew medications, and request access to your medical information using a health care shaneka of your choosing, or just ask a question. You can enroll at [email or web address] or register during your next office visit. You have been discharged from [facility], Patient Care Unit: S3. If you have any questions regarding these instructions after you leave, please call us and we will be happy to assist you. [facility] Your Care Team Attending Physician Getachew GONZALEZ, Selena Consulting Providers Sacha GONZALEZ, Vahid Watt Discharging Providers Adelso GONZALEZ, Bishnu Reason for Admission ? UTI sediment and blood in f/c Your Diagnosis Urinary tract infection Abdominal pain Tests Performed Below is a partial list of the tests performed during your hospitalization. You may have had other tests and procedures not included in this list. Please discuss all test results with your provider. Basic Metabolic Panel BUN CBC CBC w/ Differential COMPLETE URINALYSIS Comprehensive Metabolic Panel COVID-19 (Novel Coronavirus), Rapid PCR Creatinine Electrolytes GLUCOSE POC Hemoglobin A1C (Monitoring) HOLD BLUE TUBE HOLD GREEN TUBE Lactate Level LACTIC ACID Lipase Magnesium Level Phosphorus Level Procalcitonin Level Urinalysis w/hold for Urine Culture?-- Results Pending -- CT Abd/Pelvis W/ IV Contrast Only ? You will be contacted within 72 hours with your results. Primary Care Provider Cherise Hamm MD Advance Directive Health Care Proxy on File Yes - Health Care Proxy Yes - MOLST No qualifying data available. Discharge Vitals Temperature: 98.4 DegF Height: 166 cm Pulse Rate: 72 bpm Weight: 126.3 kg Respiratory Rate: 18 br/min Body Mass Index:??45.83 kg/m2??Critical Systolic Blood Pressure:??145 mm Hg??High Body surface area: 2.41 Systolic Blood Pressure:??146 mm Hg??High ?? Diastolic Blood Pressure: 64 mm Hg ?? Diastolic Blood Pressure: 64 mm Hg ?? Oxygen Saturation:??88 %??Low ?? Studies Pending All tests and labs ordered during this hospital stay have been completed unless listed below. Please discuss all pending results with your provider listed above in these instructions. ?? Blood Culture Blood Culture #2 COVID-19 (2019 Novel Coronavirus) PCR Urinalysis w/hold for Urine Culture What to do next Instructions From Your Doctor You were admitted to the hospital for concern of urinary infection. Your rai catheter was changedin the ED. After thorough work up which ruled out infection, it is my understanding that your urinary symptoms are likely due to issues surrounding your rai catheter and not having had the appropriate size tubing for you. Please??call your??urologist and PCP to set up post-hospital follow up. Discharge Orders You Need to Schedule the Following Appointments Follow Up with??Cherise Hamm MD When??Within 3-5 day: call to discuss follow up visit Where: [address] [place] [id number]- Discharge Medications ALEAH ADAM :1950 Visit Date:07/29/2022 Medications: Please continue your medications until treatment is completed or stopped by your provider. Medications not listed below should be discontinued. Discuss any questions related to medications with your provider. What How Much When Instructions Next Dose New Ocular Lubricant (ocular lubricant - solution) 2 Drops Left eye Twice a day as needed for Other Dryness. ?? Pickup at [facility]/pharmacy #[id number] as presscribed Unchanged Albuterol (albuterol 0.083% inhalation solution) 3 Milliliter Nebulized inhalation Every 6 hours as needed for as needed for wheezing Pickup at [facility]/pharmacy #207 as prescribed Unchanged Albuterol (albuterol CFC free 90 mcg/ inh inhalation aerosol) 1 puff(s) Inhalation 4 times a day as needed for as needed for wheezing Pickup at [facility]/pharmacy #[id number] as prescribed Unchanged Albuterol/ Ipratropium (albuterol-ipratropium 3 mg-0.5 mg/ 3 ml inhalation solution) 3 Milliliter BAND Nebulizer 4 times a day as needed for Wheezing/Shortness of Breath as prescribed Unchanged apixaban (Eliquis 5 mg oral tablet) 1 tab(s) Oral Twice a day 08/01?? PM Unchanged Aspirin (Aspirin Low Dose 81 mg oral delayed release tablet) 1 tab(s) Oral Daily 08/02?? AM Unchanged Ergocalciferol (Vitamin D2 50,000 intl units (1.25 mg) oral capsule) 1 capsule Oral Every 7 days as prescribed Unchanged Fluticasone (Flovent Diskus 100 mcg/ inh inhalation powder) 1 puff(s) Inhalation Twice a day as prescribed Unchanged Furosemide (Lasix 80 mg oral tablet) 1 tab(s) Oral Twice a day Duration: 30 Days 08/01 1500 Unchanged Gabapentin (gabapentin 300 mg oral capsule) 1 capsule Oral Twice a day 08/01?? PM Unchanged Insulin Glargine (Lantus Inj) 64 unit(s) Subcutaneous Injection Daily in the morning 08/02?? AM Unchanged Insulin Lispro (Humalog Kwik Pen 100 units/ mL subcutaneous injection) Subcutaneous Injection 3 times a day before meals As directed per sliding scale. 0-8 units per patient. ?? as prescribed Unchanged Lisinopril (lisinopril 10 mg oral tablet) 1 tab(s) Oral Daily 08/02?? AM Unchanged Metformin (metFORMIN 850 mg oral tablet) 1 tab(s) Oral Twice a day as prescribed Unchanged Metoprolol (Metoprolol Tartrate 50 mg oral tablet) 1 tab(s) Oral Twice a day 08/01?? PM Unchanged Simvastatin (simvastatin 40 mg oral tablet) 1 tab(s) Oral Daily at Bedtime 08/01?? PM Pharmacy Information [facility]/pharmacy #1: [address], [place] [id number] [phone] Test Results Below is a partial list of the most recent Laboratory test results done prior to this discharge. You may have had other tests and procedures not included in this list. Please discuss all test resultswith your provider. Basic Metabolic Panel (07/31/2022) ???Sodium - 138 mmol/L???Potassium - 4.2 mmol/L???Chloride - 94 mmol/L???Bicarbonate Level - 34 mmol/L???Anion Gap - 10???Glucose Level - 265 mg/dL???BUN - 13 mg/dL???Creatinine-Blood - 0.5 mg/dL???Estimated GFR Creatinine - 103 ML/MIN/1.73 M2???Calcium - 8.7 mg/dL BUN (07/30/2022) ???BUN - 17 mg/dL CBC (07/31/2022) ???WBC - 6.7 k/mm3???RBC - 5.18 m/mm3???Hgb - 14.2 Gm/dL???Hct - 45.3 %???MCV - 87.5 femtoliters???MCH - 27.4 pg???MCHC - 31.3 g/dL???Platelet Count - 181 k/mm3???RDW-SD - 47.8 femtoliters???MPV - 11.7 femtoliters???Nucleated RBC (Automated) - 0.0 #/100 WBC'S???Abs. NRBC - 0.0 k/mm3 CBC w/ Differential (07/29/2022) ???WBC - 9.2 k/mm3???RBC - 5.10 m/mm3???Hgb - 14.1 Gm/dL???Hct - 44.0 %???MCV - 86.3 femtoliters???MCH - 27.6 pg???MCHC - 32.0 g/dL???Platelet Count - 192 k/mm3???RDW-SD - 46.8 femtoliters???MPV - 11.4 femtoliters???Nucleated RBC (Automated) - 0.0 #/100 WBC'S???Abs. NRBC - 0.0 k/mm3???Abs. Neut - 7.1 k/mm3???Abs. Lymph - 1.4 k/mm3???Abs. [place] - 0.6 k/mm3???Abs. Eo - 0.0 k/mm3???Abs. Baso - 0.0 k/mm3???Neut % - 76.9 %???Lymph % - 15.6 %???[place] % - 6.4 %???Eos % - 0.4 %???Baso % - 0.3 %???Imm Gran - 0.4 %???Abs. Imm Gran - 0.0 k/mm3 COMPLETE URINALYSIS (07/29/2022) ? ?Appear/Color, Urine - PINK? ?Specific [place], Urine - >1.050? ?pH, Urine - 6.5? ?Albumin, Urine - 1+???Glucose, Urine - 3+???Ketones, Urine - TRACE???Bilirubin, Urine - NEGATIVE???Hemoglobin, Urine - 3+???Nitrite, Urine - NEGATIVE???Leukocyte, Urine - 3+???Urobilinogen - NORMAL???WBC's, Urine - >182 /HPF? ?RBC's, Urine - >182 /HPF? ?Bacteria - MODERATE Comprehensive Metabolic Panel (07/29/2022) ???Sodium - 137 mmol/L???Potassium - 4.3 mmol/L???Chloride - 94 mmol/L???Bicarbonate Level - 36 mmol/L???Anion Gap - 7???Glucose Level - 322 mg/dL???BUN - 20 mg/dL???Creatinine-Blood - 0.5 mg/dL???Estimated GFR Creatinine - 101 ML/MIN/1.73 M2???Calcium - 9.2 mg/dL???Protein, Total - 6.3 Gm/dL???[place] min - 3.9 Gm/dL???AG Ratio - 1.6???Alkaline Phosphatase - 151 units/L???AST (SGOT) - 10 units/L???ALT (SGPT) - 17 units/L???Bilirubin, Total - 0.4 mg/dL COVID-19 (Novel Coronavirus), Rapid PCR (07/30/2022) ???COVID-19 by RT-PCR - NEGATIVE Creatinine (07/30/2022) ???Creatinine-Blood - 0.4 mg/dL???Estimated GFR Creatinine - 105 ML/MIN/1.73 M2 Electrolytes (07/30/2022) ???Sodium - 137 mmol/L???Potassium - 3.6 mmol/L???Chloride - 94 mmol/L???Bicarbonate Level - 34 mmol/L???Anion Gap - 9 GLUCOSE POC (08/01/2022) ???Glucose, POC - 318 mg/dL Hemoglobin A1C (Monitoring) (07/31/2022) ???Hemoglobin A1C (Monitoring) - 10.5 % HOLD BLUE TUBE (07/29/2022) ???Hold Blue Top - SPECIMEN DISCARDED AFTER 4 HOURS. HOLD GREEN TUBE (07/29/2022) ???Hold Green Top - SPECIMEN DISCARDED AFTER 1 WEEK Lactate Level (07/29/2022) ???Lactate - 1.3 mmol/L LACTIC ACID (07/29/2022) ???Lactate - 1.3 mmol/L Lipase (07/29/2022) ???Lipase - 14 units/L Magnesium Level (07/31/2022) ???Magnesium - 1.6 mg/dL Phosphorus Level (07/31/2022) ???Phosphorus - 3.7 mg/dL Procalcitonin Level (07/31/2022) ???Procalcitonin - 0.03 ng/mL Immunizations This Visit Given Vaccine Dateinfluenza virus vaccine, inactivated 07/31/2022 Allergies (NKA means No Known Allergies) Silvadene??(skin alicea, unsure) Problems Active Problems??(14) Afib?? Cataract?? Chronic diastolic congestive heart failure?? Chronic obstructive lung disease?? COVID-19?? Diabetes mellitus type 2?? Hypertensive disorder?? Morbid obesity?? Neurologic disorder associated with type II diabetes mellitus?? Obesity?? Paraparesis of both lower limbs?? Postmenopausal bleeding?? Severe obesity?? Shortness of breath?? Education Materials Below is the list of Educational Leaflet Providered with your Discharge Instructions. Rai Catheter Care?? Diet: Diabetes?? Valuables and Belongings I fully understand and agree that [facility] accepts no responsibility for all my personal property including clothing, toilet articles, radios, jewelry, dentures, hearing aids, rings, money, or any other property that is in my possession or is brought to me after admission. I understand certain valuables may be placed in a hospital safe for a short period of time. I understand that the hospital is not liable for loss or damage due to accident, fire, or other natural occurrence while said property is in the safe. I accept full responsibility for any personal property that I keep with me, and will not hold the hospital responsible in case of loss or disappearance. I acknowledge that i have been encouraged to send valuables and belongings home. ?? Review of Valuable and Belonging List: With patient Date for Pt to Sign Valuables/Belongings: 07/30/22 06:16:00 ?? Other Discharge Information ? Case Management Discharge Plan?? Discharge Plan?? Discharge Level of Care at Discharge: Home/[facility] Discharge Transportation Arranged: [facility] [address] [facility] [phone] Mode of Transportation Arranged: Ambulance Discharge Arranged Transport Date/Time: 08/01/22 13:00:00 ?? Pulmonary Rehab Status?? Pulmonary Rehab Discharge Status?? Respiratory Rate: 18 br/min ? Common Emergency Awareness Tips IS IT A STROKE? Act FAST and Check for these signs: FACE Does the face look uneven? ARM Does one arm drift down? SPEECH Does their speech sound strange? TIME Call at any sign of stroke ?? Heart Attack Signs Chest discomfort: Most heart attacks involve discomfort in the center of the chest and lasts more than a few minutes, or goes away and comes back. It can feel like uncomfortable pressure, squeezing, fullness or pain. Discomfort in upper body: Symptoms can include pain or discomfort in one or both arms, back, neck, jaw or stomach. Shortness of breath: With or without discomfort. Other signs: Breaking out in a cold sweat, nausea, or lightheaded. Remember, MINUTES DO MATTER. If you experience any of these heart attack warning signs, call to get immediate medical attention! ?? Smoking can increase your chances of developing chronic health problems and can cause harmful effects to other family members in your house. If you smoke, you are strongly encouraged to quit. Please call [facility] at [phone] or [phone] ([phone]) or log in to [email or web address] for referrals to smoking cessation programs. ?? The National Suicide Prevention Hotline is available 30/01 if you or someone you know needs to find a reason to keep living. By calling 3-370-035-vlle (0163) you'll be connected to a skilled, trained counselor at a crisis center in your area. INPATIENT DISCHARGE INSTRUCTIONS SIGNATURE PAGE ALEAH ADAM Location:[facility] Registration Date and Time:07/29/2022 22:48 EST Primary Care Physician: Cherise Hamm MD, I ALEAH ADAM, have received the above patient education materials/instructions and have verbalized understanding. If ambulance or transport services are being used I further acknowledge being given a choice of service. ?? If you need to contact me, please call me at this number: . Patient/Machine Specialist Name: Patient/Machine Specialist Signature: Relationship to Patient: Witness Name/Signature: Date: * Bishnu Darden MD: PERFORM Event Display: Patient Education Leaflets Authored Date: [id number] Rai Catheter Care ?? [id number] Rai Catheter Care A Rai catheter is a rubber tube that is placed through the urethra and into the bladder. The urethra is the opening where urine comes out. The catheter helps drain urine from the bladder. There is a small balloon on the end of the tube that is inflated after the catheter is put in place. This keeps the catheter from sliding out of the bladder. A Ari catheter is used when you are unable to pass urine (urinary retention). It's also used whenthere is loss of bladder control (incontinence). It's also used after bladder or prostate surgery. Home care ??? Finish taking any prescribed antibiotic medicine even if you are feeling better before then. ??? It's important to keep bacteria from getting into the collection bag. Don't disconnect the catheter from the collection bag. ??? Use a leg band to secure the drainage tube, so it doesn't pull on the catheter. ??? Don't try to pull or remove your catheter. This will injure your urethra. It must be removed by your healthcare provider or nurse. ??? Drain the collection bag when it becomesfull using the drain spout at the bottom of the bag. ?? Follow-up care Follow up with your healthcare provider, or as advised. This is for repeat urine testing and for catheter removal or replacement. ?? When to seek medical advice Call your healthcare provider right away if any of these occur: ??? Fever of 100.4??F (38??C) or higher, or as directed by your healthcare provider ??? Bladder pain or fullness ??? Abdominal swelling, nausea or vomiting, or back pain ??? Blood or urine leakage around the catheter ??? Bloody urine coming from the catheter (if a new symptom) ??? Catheter falls out ??? Catheter stops draining for 6 hours ??? Weakness, dizziness, or fainting ?? Last Reviewed Date: 2021 ?? 4086-3040 [employer]. All rights reserved. This information is not intended as a substitute for professional medical care. Always follow your healthcare professional's instructions. ?? * Bishnu Darden MD: PERFORM Event Display: Patient Education Leaflets Authored Date: [id number] Diet: Diabetes ?? [id number] Diet: Diabetes Food is an important tool that you can use to control diabetes and stay healthy. Eating well-balanced meals in the correct amounts will help you control your blood glucose levels and prevent low blood sugar reactions. It will also help you reduce the health risks of diabetes. There is no one specific diet that is right for everyone with diabetes and you can eat a variety of foods. But there are general guidelines to follow. A registered dietitian (HIRO) will create a tailored diet approach that???s just right for you. They will also help you plan healthy meals and snacks. If you have any questions, call your dietitian for advice. Guidelines for success Talk with your healthcare provider before starting a diabetes diet or weight loss program. If you haven't talked with a dietitian yet, ask your provider for a referral. The following guidelines can help you succeed: ??? Select foods from the 6 food groups below. Your dietitian will help you find food choices within each group. He or she will also show you serving sizes and how many servings you can have at each meal. o Grains, beans, and starchy vegetables o Vegetables o Fruit o Milk or yogurt o Meat, poultry, fish, or tofu o Healthy fats ??? Check your blood sugar levels as directed by your provider. Take any medicine as prescribed by your provider. ??? Learn to read food labels and pick the right portion sizes. ??? Limit carbohydrates at each meal to help manage your diabetes. The carbohydrates you eat become glucose in the blood. This does not mean you can't eat carbohydrates. Talk with your healthcare provider about how many grams of carbohydrates are recommended for you at each meal. Eat 3 meals a day, at consistent times. Don't skip meals. If you are hungry between meals, eat a small, low-carbohydrate snack. ??? Talk with your healthcare provider if you drink alcohol. Alcohol can have unpredictable effects on blood glucose. It's also high in empty calories and can raise a type of blood fat called triglycerides. Drink water or calorie-free diet drinks instead. ??? Eat less fat to help lower your risk of heart disease. Use nonfat or low-fat dairy products and lean meats.Avoid fried foods. Use cooking oils that are unsaturated, such as olive, canola, or peanut oil. ???Don't eat foods with added salt. Salt can contribute to high blood pressure, which can cause heart disease. People with diabetes already have a risk for high blood pressure and heart disease. ??? Stay at a healthy weight. If you need to lose weight, cut down on your portion sizes. But never skip meals. Exercise is an important part of any weight management program. Talk with your provider about an exercise program that???s right for you. ??? For more information about the best diet plan for you, talk with an RD. To find an RD in your area, contact: o Academy of Nutrition and Dietetics at www.eatright.org o [place] [employer] at www.diabetes.org or 077-029-7858 o Association of Diabetes Care and Education Specialists at www.diabeteseducator.org/ ?? Last Reviewed Date: 2021 ?? [employer]. All rights reserved. This information is not intended as a substitute for professional medical care. Always follow your healthcare professional's instructions. ?? CT Abdomen and Pelvis W contrast IV * [facility] , TRAV S: TRANSCRIBE Alvaro Arce MD P: VERIFY Breanna Whitley MD: SIGN Event Display: Result: Authored Date: [id number] CT Abd/Pelvis W/ IV Contrast Only Reason: LLQ abdominal pain; Clinical Question(s): Abscess TECHNIQUE: Spiral CT through the abdomen and pelvis with IV contrast formatted in 3 planes. 100 cc of Omnipaque 300 was administered intravenously. This study was performed without oral contrast. Weight-based protocol using automatic tube modulation was used to optimize exposure parameters. COMPARISON: Multiple priors, most recently CT abdomen pelvis dated 03/15/2022 FINDINGS: Right hepatic lobe hemangioma is unchanged. Rai catheter within a decompressed urinary bladder. Gas in the urinary bladder related to the Rai catheter. No acute process in the abdomen or pelvis IMPRESSION: No acute process in the abdomen and pelvis. Examination is unchanged from 03/15/2022 I have personally reviewed the images and I agree with this report. WSN: [id number] Ordering Physician: Enoch Self Dictated By: Breanna Whitley MD Dictated Date/Time: 07/29/22 9:52 pm Reviewed By: Alvaro Arce MD Signed By: Alvaro Arce MD Signed Date/Time: 07/29/22 9:57 pm Transcribed By: SOLOMON Transcribed Date/Time: 07/29/22 9:40 pm Patient Care team information Care Team Personnel Name: Tk Iqbal RN Position: [facility] RN Supv Member Role: Primary Care Nurse Name: Delaney De Los Santos RN Position: [facility] RN Member Role: Primary Care Nurse Name: Cande Kennedy RN Position: [facility] AMB Nurse Member Role: Primary Care Nurse Name: Batool Summers Position: S RN Member Role: Primary Care Nurse Name: Stephani Wellington RN Position: [facility] RN Member Role: Primary Care Nurse Name: Yanira Trevizo Position: [facility] RN Member Role: Primary Care Nurse Name: Rafael Hicks RN Position: [facility] RN Member Role: Primary Care Nurse Name: Vasyl Catherine RN Position: [facility] RN Member Role: Primary Care Nurse Name: Eve Masters RN Position: [facility] RN Member Role: Primary Care Nurse Name: Jenelle Jay RN Position: [facility] RN Member Role: Primary Care Nurse Name: Elizabeth Barrios RN Position: [facility] RN Member Role: Primary Care Nurse Name: Jignesh Stoner RN Position: [facility] RN Member Role: Primary Care Nurse Name: Cherise Hamm MD Position: [facility] Outreach Member Role: PCP Address: Address: [address] [place] [id number]- Name: Chyna Aguilar RN Position: [facility] RN Member Role: Primary Care Nurse Address: Address: [address] [place] [id number]- Name: John Guaman RN Position: [facility] RN Member Role: Primary Care Nurse Name: Ziyad SPRINGER Attending Position: [facility] ED Medicine Name: Melodie Lane RN Position: [facility] ED RN W/OE and Tasks Member Role: Patient Care Provider Care Team Related Persons Name: STEPHANI ADAM Address: home [address] [place] [id number] Name: GEETHA [place]OMAN Address: [place] [address]
--- OUTSIDE RECORDS SUMMARY | 2024-01-06 09:16 | XMS_ITS | Continuity of Care Document ---
Author Organization [facility] ter Address [address] [place] [id number]- Care Team Providers Care Mortgage Or Loan Underwriter Name Role Phone Hansel GONZALEZ, Cherise Bolden Primary Care Physician Encounter [facility] Date(s): 11/12/21 - 11/22/[address] [address] Encounter Diagnosis [place] catheter problem(Final) - 11/12/21 Cellulitis(Final) - 11/12/21 Discharge Disposition: A-Transfer VNA/Home Health Attending Physician: Hubert Ramirez MD Admitting Physician: Francoise Salas MD Referring Physician: Not on Staff, Referring MD Allergies, Adverse Reactions, Alerts Substance Reaction Severity Status Silvadene skin alicea unsure Active Immunizations Given and Recorded Vaccine Date Status Refusal Reason influenza virus vaccine, inactivated 04/09/21 Maldonado rded [...] 11/12/15 Recorded pneumococcal 13-valent vaccine 04/21/15 Recorded Medications acetaminophen 325 mg oral tablet 650 [...] opioid drug. Start Date: 06/30/21 Status: Ordered Basic Metabolic Panel on 11/25/2021 Basic Metabolic Panel on 11/25/2021, See Instructions, # 1 each, Refills 0, Tot. Refills 0, Maintenance, Basic Metabolic Panel on 11/25/2021. Forward results to PCP Cherise Hamm ICD code: E87. 2, 11/22/21 9:24:00 EDT, Supply Start Date: 11/22/21 Status: Ordered cholecalciferol 1000 intl units oral tablet 1 tablet = 25 mcg, By Mouth, Daily, # 30 tablet, 0 Refills, Maintenance, 11/22/21 9:22:00 EDT, Tablet, [facility]/pharmacy #[id number], Partial fill upon patient request if the prescription is for a schedule II opioid drug., 168, cm, 11/22/21 7:53:00 EDT, Height,... Start Date: 11/22/21 Status: Ordered dextromethorphan-guaifenesin 5 mg-100 mg/5 mL oral liquid 5 mL, By Mouth, Every 4 hours, PRN Cough, # 118 mL, 0 Refills, Acute 12/03/21 9:15:00 EDT, :09:00 EDT, Liquid, [facility]/pharmacy #[id number], Partial fill upon patient request if the prescription is for a schedule II opioid drug., 5 mL By Mouth Every 4... Start Date: 11/22/21 Stop Date: 12/03/21 Status: Ordered Eliquis 5 mg oral tablet 1 tablet = 5 mg, By Mouth, 2 times a day, # 60 tablet, 5 Refills, Maintenance, 06/30/21 10:31:00 EST, Tablet, Partial fill upon patient request if the prescription is for a schedule II opioid drug. Start Date: 06/30/21 Status: Ordered Flonase 50 mcg/inh nasal spray 1 sprays = 50 mcg, Nares, Both, 2 times a day, # 16 Gm, 0 Refills, Maintenance, 11/18/21 8:23:00 EDT, Nasal [place], [facility]/pharmacy #[id number], Partial fill upon patient request if the prescription is for a schedule II opioid drug., 1 sprays Nares, Both 2 time... Start Date: 11/18/21 Status: Ordered Flovent Diskus 100 mcg inhalation [...] opioid drug. Start Date: 06/30/21 Status: Ordered gabapentin 300 mg oral capsule 300 mg, Capsule, By Mouth, 11/22/21 15:00:00 EDT Start Date: 11/22/21 Stop Date: 11/22/21 Status: Completed insulin lispro 100 u/ml subcutaneous injection 14-32 [...] 2 times a day, 0 Refills, Maintenance, 01/19/10 15:28:01 EDT Start Date: 01/19/10 Status: Ordered lisinopril 5 mg oral tablet 5 mg, 1, tablet, By Mouth, Daily, # 30 tablet, Refills 0, Maintenance, 06/30/21 10:31:00 EST, Partial fill upon patient request if the prescription is for a schedule II opioid drug. Start Date: 06/30/21 Status: Ordered lisinopril 5 mg oral tablet 5 mg, Tablet, By Mouth, 11/22/21 9:00:00 EDT Start Date: 11/22/21 Stop Date: 11/22/21 Status: Completed Lopressor 50 mg oral tablet 50 mg, Tablet, By Mouth, 11/22/21 9:00:00 EDT Start Date: 11/22/21 Stop Date: 11/22/21 Status: Completed Metoprolol Tartrate 50 mg oral tablet 1 tablet = 50 mg, By Mouth, 2 times a day, # 180 tablet, 0 Refills, Maintenance, 06/30/21 10:31:00 EST, Tablet, Partial fill upon patient request if the prescription is for a schedule II opioid drug. Start Date: 06/30/21 Status: Ordered miconazole 2% topical ointment See Instructions, 1 Topically Every 12 hours to affected area, # 56 Gm, 1 Refills, Acute 12/19/21 8:53:00 EDT, 11/17/21 8:52:00 EDT, Ointment, [facility]/pharmacy #[id number], Partial fill upon patient request ifthe prescription is for a schedule II opioid drug.... Start Date: 11/17/21 Stop Date: 12/19/21 Status: Ordered mupirocin 2% topical ointment 1 [...] Cataract(Confirmed) Active Chronic obstructive lung disease(Confirmed) Active COVID-19(Confirmed) 1 11/22/21 Active Diabetes mellitus type 2(Confirmed) Active Hypertensive disorder(Confirmed) Active Neurologic disorder associat ed with type II diabetes mellitus(Confirmed) Active Obesity(Confirmed) Active Postmenopausal bleeding(Confirmed) Active Severe obesity(Confirmed) Active 1Problem added by Discern Expert Results Orders for Microbiology Reports Name Date Sputum Culture w/ Gram Smear 11/14/21 Blood Culture 11/12/21 Blood Culture #2 11/12/21 Microbiology Reports TEST:Sputum Culture STATUS:Auth (Verified) BODY SITE: SOURCE:EXPECT COLLECTED DATE/TIME:11/14/21 4:15 AM Sputum Culture SPECIMEN DESCRIPTION : EXPECTORATED SPUTUM SPECIAL REQUESTS : NONE GRAM STAIN : 4+ SQ.EPITHELIAL CELLS 2+ GRAM POSITIVE COCCI 1+ GRAM POSITIVE RODS CULTURE : MICROSCOPIC EXAM SHOWS SQUAMOUS EPITHELIAL CELLS INDICATIVE OF OROPHARYNGEAL CONTAMINATION. PLEASE RECOLLECT APPROPRIATE SPECIMEN FOR CULTURE IF CLINICALLY INDICATED. REPORT STATUS : FINAL 11/14/2021 TEST:Blood Culture, Second Order STATUS:Auth (Verified) BODY SITE: SOURCE:Blood COLLECTED DATE/TIME:11/12/21 5:37 PM Blood Culture, Second Order SPECIMEN DESCRIPTION : BLOOD LAC SPECIAL REQUESTS : NONE CULTURE : NO GROWTH 5 DAYS. REPORT STATUS : FINAL 11/17/2021 TEST:Blood Culture STATUS:Auth (Verified) BODY SITE: SOURCE:Blood COLLECTED DATE/TIME:11/12/21 5:30 PM Blood Culture SPECIMEN DESCRIPTION : BLOOD R AC SPECIAL REQUESTS : NONE CULTURE : NO GROWTH 5 DAYS. REPORT STATUS : FINAL 11/17/2021 Radiology Reports * Exam Date Time Procedure Performing Provider Status 11/15/21 3:19 PM Chest Portable Gonzalo Causey; Auth (Verified) Notes: (Chest Portable) Reason For Exam: COPD RESULT: Chest Portable Chest Portable INDICATION: Evaluate for pulmonary edema. COMPARISON: Multiple priors, the most recent 11/12/2021. FINDINGS: LINES AND TUBES: None. LUNGS AND PLEURA: New left basilar, retrocardiac opacity. Mild pulmonary vascular congestion. Minimal right medial basilar opacity, most likely atelectasis. Possible small left pleural effusion. No pneumothorax. HEART, MEDIASTINUM AND KOLTON: Heart is normal in size. Aorta is somewhat tortuous. BONES AND SOFT TISSUES: No acute abnormality. Severe bilateral neural femoral degenerative changes. IMPRESSION: New left lower lung opacity, could represent pleural effusion, atelectasis, pneumonia or a combination of the above. I have personally reviewed the images and I agree with this report. WSN: [id number] Ordering Physician: Aditi Vanegas Dictated By: Kee[Radiology] Alize GONZALEZ Dictated Date/Time: 11/15/21 5:42 pm Reviewed By: Nato Dalton MD Signed By: Nato Dalton MD Signed Date/Time: 11/15/21 5:47 pm Transcribed By: SOLOMON Transcribed Date/Time: 11/15/21 5:03 pm * Exam Date Time Procedure Performing Provider Status 11/12/21 3:19 PM Chest Portable Alvaro Yeager; Isabel (Verified) Notes: (Chest Portable) Reason For Exam: Shortness of Breath RESULT: Chest Portable Chest Portable Reason: Shortness of Breath; Clinical Question(s): Pneumonia COMPARISON: X-ray from 09/25/2021 FINDINGS: LINES AND TUBES: None. LUNGS AND PLEURA: The apices are obscured by the patient's chin. Central vascular markings are prominent and indistinct. No focal opacity or volume loss. No pleural effusion. No pneumothorax. HEART, MEDIASTINUM AND KOLTON: Mild prominence of the cardiac silhouette. Normal upper mediastinal and hilar contour. BONES AND SOFT TISSUES: No acute abnormality. IMPRESSION: Mild cardiac enlargement and pulmonary vascular congestion without edema or effusions. No pneumonia. WSN: [id number] Ordering Physician: Alvaro Muñoz Dictated By: Rafael Ruiz MD Dictated Date/Time: 11/12/21 4:10 pm Reviewed By: Rafael Ruiz MD Signed By: Rafael Ruiz MD Signed Date/Time: 11/12/21 4:10 pm Transcribed By: SOLOMON Transcribed Date/Time: 11/12/21 4:09 pm Vital Signs Most recent to oldest [Reference Range]: 1 2 3 Height 168 cm (11/22/21 11:46 AM) 168 cm (11/22/21 7:53 AM) 168 cm (11/22/21 4:34 AM) Weight 162.0 kg (11/13/21 4:21 PM) 162 kg (11/12/21 8:30 AM) Oxygen Saturation [94-100 %] 94 % (11/22/21 11:46 AM) 96 % (11/22/21 7:53 AM) 93 % *L* (11/22/21 4:34 AM) Pulse Rate [55-90 bpm] 59 bpm (11/22/21 11:46 AM) 64 bpm (11/22/21 10:07 AM) 64 bpm (11/22/21 7:53 AM) Body Mass Index [18.5-24.99] 57.4 *>HHI* (11/13/21 4:21 PM) Blood Pressure [90-138/55-84 mm Hg] 120/45mm Hg (11/22/21 11:46 AM) 123/96mm Hg (11/22/21 10:07 AM) 123/96mm Hg (11/22/21 10:07 AM) Respiratory Rate [16-30 br/min] 18 br/min (11/22/21 3:58 PM) 18 br/min (11/22/21 2:58 PM) 18 br/min (11/22/21 11:46 AM) Temperature [96.8-100.4 DegF] 97.6 DegF (11/22/21 11:00 AM) 97.9 DegF (11/22/21 7:53 AM) 97.9 DegF (11/22/21 4:34 AM) Liters per Minute 2 L/min (11/20/21 3:00 PM) 2 L/min (11/20/21 11:00 AM) 2 L/min (11/20/21 7:00 AM) Mode of Delivery (Oxygen) Room air (11/22/21 11:46 AM) Room air (11/22/21 7:53 AM) Room air (11/22/21 4:34 AM) Blood pressure sites Arm, right (11/22/21 11:46 AM) Arm, right (11/22/21 7:53 AM) Arm, left (11/22/21 4:34 AM) Temperature Route Oral (11/22/21 11:46 AM) Oral (11/22/21 7:53 AM) Oral (11/22/21 4:34 AM) Dry Weight 162.0 kg (11/13/21 4:21 PM) 162 kg (11/12/21 8:30 AM) Weight Obtained Via Bed scale (11/13/21 4:21 PM) Dry Weight Obtained Via Bed scale (11/13/21 4:21 PM) Social History Social History Type Response Smoking Status Former smoker; Tobac co user in household: No entered on: 01/17/17 Sex
--- OUTSIDE RECORDS SUMMARY | 2024-01-06 09:16 | XMS_ITS | Continuity of Care Document ---
Author Organization [facility] Address [address] [place] [address]- Care Team Providers Care Programming Instructor Name Role Phone Cherise Hamm MD Primary Care Physician [phone] Encounter [facility] Date(s): 12/28/22 - 02/17/23 [facility] [address] [place], [place] [address] Attending Physician: Cherise Hamm MD Admitting Physician: Cherise Hamm MD Referring Physician: Heath Veronica MD Allergies, Adverse Reactions, Alerts Substance Reaction [...] 2 Refills, Maintenance, 01/08/23 12:40:00 EDT, Solution, [facility]/pharmacy #[id number], ICD 10 - J45.901, [...] 3 Refills, Maintenance, 11/01/22 11:09:00 EDT, Powder, [facility]/pharmacy #[id number], Partial fill upon patient request if the prescription is for a schedule II opioid drug., 1 puffs Inhalation Daily, 167.64, cm, 11/01/22 7... Start Date: 11/01/22 Status: Ordered Eliquis 5 [...] 0 Refills, Maintenance, 08/01/22 11:21:00 EST, Solution, [facility]/pharmacy #[id number], Partial fill upon patient [...] 11/01/22 11:29:00 EDT, Route to Pharmacy Electronically, [facility]/pharmacy #[id number], Partial fill upon patient [...] Team Personnel Name: Alvaro Oliver RN Position: [facility] RN Member Role: Primary Care Nurse Name: Tala Curiel LPN Position: [facility] RN Member Role: Primary Care Nurse Name: Tk Iqbal RN Position: [facility] RN Member Role: Primary Care Nurse Name: Jovanny Stuart RN Position: [facility] RN Member Role: Primary Care Nurse Name: Delaney De Los Santos RN Position: [facility] SN RN Member Role: Primary Care Nurse Name: Michelle Ricketts Position: [facility] RN Member Role: Primary Care Nurse Name: Cande Kennedy RN Position: [facility] AMB Nurse Member Role: Primary Care Nurse Name: Batool Summers Position: [facility] RN Member Role: Primary Care Nurse Name: Lainey Walker LPN Position: [facility] RN Member Role: Primary Care Nurse Name: Yanira Trevizo Position: [facility] RN Member Role: Primary Care Nurse Name: Batool Cervantes RN Position: [facility] RN Member Role: Primary Care Nurse Name: Batsheva Bernard RN Position: [facility] RN Member Role: Primary Care Nurse Name: Fern Franklin LPN Position: [facility] RN Member Role: Primary Care Nurse Name: Vasyl Catherine RN Position: [facility] RN Member Role: Primary Care Nurse Name: Eve Masters RN Position: [facility] RN Member Role: Primary Care Nurse Name: Elizabeth Barrios RN Position: [facility] RN Member Role: Primary Care Nurse Name: Jignesh Stoner RN Position: [facility] RN Member Role: Primary Care Nurse Name: Kady Garcias RN Position: [facility] RN Member Role: Primary Care Nurse Name: Rosy Arriaza RN Position: [facility] RN Member Role: Primary Care Nurse Name: Cherise Hamm MD Position: [facility] Outreach Member Role: PCP Address: Address: [address] [place] [address] Name: Chyna Aguilar RN Position: S RN Member Role: Primary Care Nurse Address: Address: [address] [place], [place] [address] [address]- Name: John Guaman RN Position: S RN Member Role: Primary Care Nurse Name: Rocio Andrade RN Position: S RN Member Role: Primary Care Nurse Care Team Related Persons Name: STEPHANI ADAM Address: [address] [place] [address] Name: NATHEN LLOYD
--- OUTSIDE RECORDS SUMMARY | 2024-01-06 09:16 | XMS_ITS | Continuity of Care Document ---
Author Organization [facility] ter Address [address] [place] [id number]- Care Team Providers Care Medical Technicians Name Role Phone Hansel GONZALEZ, Cherise Bolden Primary Care Physician Encounter [facility] Date(s): 12/12/22 - 12/17/[address] [id number]- Encounter Diagnosis Powered wheelchair colliding with stationary object(Final) - 12/12/22 Wheelchair dependent(Final) - 12/12/22 Toe necrosis(Final) - 12/12/22 Shortness of breath(Final) - 12/12/22 Congestive heart failure(Final) - 12/12/22 Discharge Disposition: A-D/C Home Attending Physician: Liliane Childs MD Admitting Physician: Ever Maher MD Referring Physician: Not on Staff, Referring [...] inactivated 07/13/22 Not Given Patient Refuses Medications Acetaminophen Tablet 650 mg, Tablet, By Mouth, Every 4 hours, PRN for Pain , Mild, Temperature Greater than 100.5, Routine, 12/12/22 15:12:00 EDT Start Date: 12/12/22 Stop Date: 12/17/22 Status: Discontinued albuterol 0.083% inhalation solution 3 mL = [...] a schedule II opioid drug. Start Date: 9/7/22 Status: Ordered azithromycin 250 mg oral tablet 1 pack/packet, By Mouth, Daily, # 3 tablet, 0 Refills, Soft Stop, 11/01/22 11:28:00 EDT, Tablet, [facility]/pharmacy #[id number], Partial fill upon patient request if the prescription is for a schedule II opioid drug., 167.64, cm, 11/01/22 7:13:00 EDT, Height, 117... Start Date: 11/01/22 Status: Ordered Betadine 10% solution See Instructions, Topically Daily, # 240 mL, 0 Refills, Maintenance, 12/17/22 12:11:00 EDT, [facility], Partial fill upon patient request if the prescription is for a schedule II opioiddrug., Topically Daily, 168, cm, 12/17/22 7:29:00 E... Start Date: 12/17/22 Status: Ordered Breo Ellipta 200 mcg-25 mcg/inh inhalation powder 1 puffs, Inhalation, Daily, # 30 each, 3 Refills, Maintenance, 11/01/22 11:09:00 EDT, Powder, [facility]/pharmacy #[id number], Partial fill upon patient request [...] 0 Refills, Maintenance, 12/08/22 3:25:00 EDT, Cream, [facility]/pharmacy #[id number], Partial fill upon patient request if the prescription is for a schedule II opioid drug., 1 application Topically 2 times a day,... Start Date: 12/08/22 Status: Ordered dextromethorphan-guaifenesin 10 mg-100 mg/10 mL oral liquid 10 mL, By Mouth, Every 4 hours, PRN as needed for cough, not to exceed 6 doses/day, # 60 mL, 1 Refills, Maintenance, 11/01/22 11:22:00 EDT, Liquid, [facility]acy [facility][id number], Partial fill upon patient request if the prescription is for a schedule II opioid d... Start Date: 11/01/22 Status: Ordered docusate sodium 100 mg/25 mL oral syrup 15 mL = 60 mg, By Mouth, Every 4 hours, PRN for constipation, # 480 mL, 0 Refills, Maintenance, 12/08/22 3:24:00 EDT, Syrup, [facility]/pharmacy #[id number], Partial fill upon patient request [...] oral capsule 300 mg, Capsule, By Mouth, 12/17/22 9:00:00 EDT Start Date: 12/17/22 Stop Date: 12/17/22 Status: Completed gabapentin 300 mg oral capsule TAKE 1 [...] Date: 10/27/22 Stop Date: 11/01/22 Status: Ordered metoprolol 50 mg oral tablet 50 mg, Tablet, By Mouth, Hold for: HR<60, 12/17/22 9:00:00 EDT Start Date: 12/17/22 Stop Date: 12/17/22 Status: Completed Metoprolol Tartrate 50 mg oral [...] 0 Refills, Maintenance, 08/01/22 11:21:00 EST, Solution, [facility]/pharmacy #[id number], Partial fill upon patient request if the prescription is for a schedule II opioid drug., 2 drops Eye, Left 2... Start Date: 08/01/22 Status: Ordered oxybutynin 5 mg/24 hours oral tablet, extended release 1 tablet = 5 mg, By Mouth, Daily at bedtime, # 30 tablet, 0 Refills, Maintenance, 11/26/22 19:42:00EDT, ER Tablet, [facility]/pharmacy #[id number], Partial fill upon patient request [...] 0 Refills, Maintenance, 11/01/22 11:08:00 EDT, Tablet, [facility]/pharmacy #[id number], Partial fill upon patient request [...] 11/01/22 11:29:00 EDT, Route to Pharmacy Electronically, [facility]/pharmacy #[id number], Partial fill upon patient request if the [...] for Microbiology Reports Name Date Blood Culture 12/12/22 Blood Culture #2 12/12/22 Microbiology Reports TEST:Blood Culture, Second Order STATUS:Auth (Verified) BODY SITE: SOURCE:Blood COLLECTED DATE/TIME:12/12/22 8:25 AM Blood Culture, Second Order SPECIMEN DESCRIPTION : BLOOD L HAND SPECIAL REQUESTS : NONE CULTURE : NO GROWTH 5 DAYS. REPORT STATUS : FINAL 12/17/2022 TEST:Blood Culture STATUS:Auth (Verified) BODY SITE: SOURCE:Blood COLLECTED DATE/TIME:12/12/22 7:53 AM Blood Culture SPECIMEN DESCRIPTION : BLOOD RAC SPECIAL REQUESTS : NONE CULTURE : NO GROWTH 5 DAYS. REPORT STATUS : FINAL 12/17/2022 Radiology Reports * Exam Date Time Procedure Performing Provider Status 12/12/22 9:15 AM Toe 4th Left Foot Lisa Britt; Auth (Verified) Notes: (Toe 4th Left Foot) Reason For Exam: necrosis;Other: RESULT: Toe 4th Left Foot Examination: Left foot and left fourth digit performed on 12/12/2022. History: Hx of Present Illness: Pt slipped in recliner and hit foot on the grounnd. Also c o UTI and needs antibiotics.; Reason: Other:; necrosis; Clinical Question(s): Osteomyelitis Findings: A frontal view of the left foot and oblique and lateral views of the fourth digit are compared to aprior study dated 11/19/2022. Diffuse osteopenia is present. Deformity of the second through fourth metatarsal heads is consistent with prior trauma. No acute fractures or dislocations are seen. The soft tissues are unremarkable. IMPRESSION: Stigmata of prior injury. There is no acute osseous abnormality. WSN: [id number] Ordering Physician: Meeta Mendez Dictated By: Violet Ureña MD Dictated Date/Time: 12/12/22 9:33 am Reviewed By: Violet Ureña MD Signed By: Violet Ureña MD Signed Date/Time: 12/12/22 9:33 am Transcribed By: SOLOMON Transcribed Date/Time: 12/12/22 9:32 am * Exam Date Time Procedure Performing Provider Status 12/12/22 9:15 AM Chest 2 Views Frontal and Lat Lisa Britt; Isabel (Verified) Notes: (Chest 2 Views Frontal and Lat) Reason For Exam: Shortness of Breath RESULT: Chest 2 Views Frontal and Lat Examination: Chest performed on 12/12/2022. History: Slipped and fall. Shortness of breath. Findings: Frontal and lateral views of the chest are compared to a prior study dated 10/26/[address] dated 10/30/2022. The cardiac and mediastinal silhouettes are within normal limits. Enlargement of the pulmonary arteries is demonstrated. There are nodular densities bilaterally which were not seen previously and mayrepresent engorged vessels on end. Pulmonary vascular congestion has developed since the prior study. The osseous and soft tissue structures are unremarkable. Impression: Pulmonary vascular congestion. Nodular densities bilaterally which may be due to enlarged vessels on end as no pulmonary nodules are seen on the prior CT. WSN: [id number] Ordering Physician: Meeta Mendez Dictated By: Violet Ureña MD Dictated Date/Time: 12/12/22 9:32 am Reviewed By: Violet Ureña MD Signed By: Violet Ureña MD Signed Date/Time: 12/12/22 9:32 am Transcribed By: SOLOMON Transcribed Date/Time: 12/12/22 9:31 am Vital Signs Most recent to oldest [Reference Range]: 1 2 3 Height 168 cm (12/17/22 7:29 AM) 168 cm (12/17/22 3:07 AM) 168 cm (12/16/22 7:31 PM) Weight 119.1 kg (12/17/22 5:11 AM) 119.2 kg (12/16/22 5:09 AM) 119.2 kg (12/15/22 4:59 AM) Oxygen Saturation [94-100 %] 96 % (12/17/22 7:29 AM) 94 % (12/17/22 3:07 AM) 93 % *L* (12/16/22 7:31 PM) Pulse Rate [55-90 bpm] 60 bpm (12/17/22 8:33 AM) 60 bpm (12/17/22 7:29 AM) 59 bpm (12/17/22 3:07 AM) Body Mass Index [18.5-24.99 kg/m2] 42.3 kg/m2 *>HHI* (12/12/22 10:06 PM) Blood Pressure [90-138/55-84 mm Hg] 136/67mm Hg (12/17/22 8:33 AM) 136/67mm Hg (12/17/22 7:29 AM) 112/59mm Hg (12/17/22 3:07 AM) Respiratory Rate [16-30 br/min] 20 br/min (12/17/22 9:33 AM) 20 br/min (12/17/22 9:33 AM) 20 br/min (12/17/22 8:33 AM) Temperature [96.8-100.4 DegF] 97.8 DegF (12/17/22 7:29 AM) 97.9 DegF (12/17/22 3:07 AM) 97.8 DegF (12/16/22 7:31 PM) Liters per Minute 2.5 L/min (12/16/22 7:31 PM) 0 L/min (12/16/22 1:00 PM) 3 L/min (12/16/22 7:00 AM) Mode of Delivery (Oxygen) Room air (12/17/22 7:29 AM) Room air (12/17/22 3:07 AM) Nasal cannula (12/16/22 7:31 PM) Blood pressure sites Arm, right (12/17/22 7:29 AM) Arm, right (12/17/22 3:07 AM) Arm, right (12/16/22 7:31 PM) Temperature Route Temporal (12/17/22 7:29 AM) Temporal (12/17/22 3:07 AM) Temporal (12/16/22 7:31 PM) Dry Weight 119.4 kg (12/12/22 10:06 PM) Weight Obtained Via Bed scale (12/16/22 5:09 AM) Bed scale (12/14/22 4:38 AM) Bed scale (12/13/22 6:07 AM) Dry Weight Obtained Via Bed scale (12/12/22 10:06 PM) Social History Social History Type Response Smoking Status Former smoker; Tobac co user in household: No entered on: 01/17/17 Sex Admission evaluation note * [place] DHALIWAL, Roro [place]: MODIFY, MODIFY, MODIFY, MODIFY, MODIFY, MODIFY, PERFORM, MODIFY Event Display: Admission Note Authored Date: Patient: ??VIDHYA ADAM ? Age:??72 Years?Sex:??Female?:??1950?? Chief Complaint/Reason for Consultation Slipped forward in chair. C/o lower feet pain Did not fall out of chair. No head strike. No LOC. History of Present Illness The patient s a 72-year-old female with past medical history of diabetes, hypertension, previous UTIs with Rai catheter in place, atrial fibrillation on Eliquis, obesity, CHF, COPD, wheelchair-bound at baseline who is presenting today from home??after she ??fell out of?? her wheelchair.?? She states that the hydraulics on her electric wheelchair malfunctioned when she was at the bathroom sink and caused the chair to tip forward slightly. ??She was still restrained with a seatbelt but states that her feet were forward and fell into the cabinet. She states that she has a prior left second toeinjury from 2 weeks ago in which she has a hematoma. She was already seen for this injury and states that an x- ray was negative. ??She denies falling out of the wheelchair. ??She denies loss of consciousness?? or head strike. ??She denies any foot pain from this injury. ??She states that she was unable to get herself out of that position and therefore pressed her life alert button. ??She additionally notes that she was seen in the emergency department recently and received a call from [facility] that she was diagnosed with a UTI and that the antibiotic she had originally been prescribed was notsufficient to cover the bacteria that grew on the culture. ??She states that her daughter has been out of town and was unable to pick this up for her. ??She has a chronic indwelling Rai. ??She admits to increased swelling in the upper extremities and lower extremities and mild shortness of breath. ??She states that yesterday evening she had nausea and vomiting. ??She states that she has been constipated and her last bowel movement was 2 days ago and consisted of small pellets.?She denies any fevers or chills, chest pain. ??She reports??a mild cough. ??Admits to mild abdominal cramping without any abdominal pain. ? In the ED, the patient is afebrile with elevated blood pressure up to 176/95 and otherwise stable vitals signs.? Chest x-ray shows pulmonary vascular congestion.?? X-ray of 4th left toe shows stigmata of prior injury and no acute osseous abnormality.?? laboratory data shows glucose of 329, CO2 32, BNP 217.?? Urinalysis suggests UTI with 107 WBCs, 2+Hgb and 3+ leukocytes. ??The patient was started on Zosyn in the ED.?? The patient is admitted with UTI. ?? Review of Systems Constitutional:??No weight loss, fever, chills, weakness or fatigue. Allergy/Immune: Denies any??Eczema or hives Eyes:??No visual loss, blurred vision, double vision or yellow sclera ENT:??No hearing loss, sneezing, congestion, runny nose or sore throat. Respiratory:??Shortness of breath.?? No??cough or sputum production. Cardiovascular:??No chest pain, chest pressure or chest discomfort. No palpitations.?? Pedal edema. Gastrointestinal:??No anorexia, nausea, vomiting or diarrhea. No abdominal pain or blood in stool. Genitourinary:??No burning micturition. No urinary frequency or incontinence. Neurologic:??No headache, dizziness, syncope, unilateral weakness, ataxia, numbness or tingling in the extremities. No change in bowel or bladder control. Musculoskeletal:??No muscle pain, back pain.?? Bilateral shoulder and hip??joint pain, stiffness. Hematologic/Lymphatics:??No bleeding or bruising. No painful lymph nodes. Skin:??No rash or itching. Left 4th toe black. Endocrine:??No reports of sweating. No cold or heat intolerance. No polyuria or polydipsia. Psychiatric:??No depression or anxiety. Objective Vital Signs?? Temperature: 97.9 DegF (12/12/22 22:19:00) Temperature Route: Femoral (12/12/22 22:19:00) Pulse Rate: 75 bpm (12/12/22 22:19:00) Respiratory Rate: 20 br/min (12/12/22 22:19:00) Systolic Blood Pressure:??162 mm Hg??High (12/12/22 22:19:00) Diastolic Blood Pressure:??97 mm Hg??High (12/12/22 22:19:00) Blood pressure sites: Arm, left (12/12/22 22:19:00) Mean Arterial Pressure: 119 mm Hg (12/12/22 22:19:00) Pulse Pressure: 65 mm Hg (12/12/22 22:19:00) Oxygen Saturation:??93 %??Low (12/12/22 22:19:00) Mode of Delivery (Oxygen): Room air (12/12/22 22:19:00) Early Warning Score: 4 (12/12/22 22:20:19) ? Intake/Output? 12/12 11:16 12/12 07:00 12/11 07:00 12/10 07:00 12/09 07:00 ?? 12/12 22:21 12/12 22:21 12/12 06:59 12/11 06:59 12/10 06:59 Intake ?0 ?0 ?0 ?0 ?0 Output ? 1350 ? 1350 ?0 ?0 ?0 Net Total ?-1350 ?-1350 ?0 ?0 ?0 ? Physical Exam Constitutional: Alert, in no distress. Mental Status: Oriented to person, place and time. Head: Normocephalic. Eyes: Pupils are equal, round and reactive to light. Extraocular muscles intact. Ear, Nose and Throat: Oropharynx clear, mucous membranes moist. Ears and nose without masses, lesions or deformities. Trachea midline. Neck: Supple, Full range of motion. Respiratory: Clear to auscultation. No wheezing, rales or rhonchi. Cardiovascular: S1 S2 regular. No murmurs, rubs or gallops. Gastrointestinal: Abdomen soft, non-tender, non-distended. Normal bowel sounds. No pulsatile mass. No hepatosplenomegaly. Genitourinary: No costovertebral angle tenderness. Neurologic: Cranial nerves II-XII grossly intact. No focal neurological deficits. Flexor plantar response. Moves all extremities spontaneously. Sensation intact bilaterally. Skin: No rashes or lesions. No petechiae or purpura.??Left 4th toe black. Musculoskeletal: No cyanosis or clubbing. No gross deformities. Normal range of motion. Heme/Lymphatics/Immun: Palpation of neck reveals no swelling or tenderness of neck nodes. Psychiatric: Normal mood and affect Assessment/Plan Assessment:??The patient s a 72-year-old female with past medical history of diabetes, hypertension, previous UTIs with Rai catheter in place, atrial fibrillation on Eliquis, obesity, CHF, COPD, wheelchair-bound at baseline who is presenting today from home after she fell out of her wheelchair. She states that the hydraulics on her electric wheelchair malfunctioned when she was at the bathroom sink and caused the chair to tip forward slightly. She was still restrained with a seatbelt but states that her feet were forward and fell into the cabinet. She states that she has a prior left secondtoe injury from 2 weeks ago in which she has a hematoma. She was already seen for this injury and states that an x-ray was negative. She denies falling out of the wheelchair. She denies loss of consciousness or head strike. She denies any foot pain from this injury. She states that she was unable to get herself out of that position and therefore pressed her life alert button. She additionally notes that she was seen in the emergency department recently and received a call from [facility] that shewas diagnosed with a UTI and that the antibiotic she had originally been prescribed was not sufficient to cover the bacteria that grew on the culture. She states that her daughter has been out of town and was unable to pick this up for her. She has a chronic indwelling Rai. She admits to increased swelling in the upper extremities and lower extremities and mild shortness of breath. She states that yesterday evening she had nausea and vomiting. She states that she has been constipated and her last bowel movement was 2 days ago and consisted of small pellets. She denies any fevers or chills, chest pain. She reports a mild cough. Admits to mild abdominal cramping without any abdominal pain. ?? In the ED, the patient is afebrile with elevated blood pressure up to 176/95 and otherwise stable vitals signs. Chest x-ray shows pulmonary vascular congestion. X-ray of 4th left toe shows stigmata of prior injury and no acute osseous abnormality. laboratory data shows glucose of 329, CO2 32, BNP 217. Urinalysis suggests UTI with 107 WBCs, 2+Hgb and 3+ leukocytes. The patient was started on Zosynin the ED. The patient is admitted with UTI. ?? Urinary Tract Infection: Patient with history of indwelling catheter diagnosed with UTI a couple of days ago and started on po antibiotic, now with urine cultures showing multiresistant organism.?? Patient was started on Zosyn in the ED.?? -Continue Zosyn. ?? Necrotic Left 4th Toe: Patient evaluated by vascular Surgery- input appreciated. No acute surgical intervention at this time - Hold Eliquis; heparin gtt or SQH is okay - Antibiotics as per primary team - Betadine paint to L4 toe -Pending EVA and LLE duplex. - OR 12/15/22, if patient agreeable. ?? Diabetes:?? Hyperglycemia: Glucose elevated to 329 in ED in the setting of not taking her Lantus today,?? AG normal. -Continue home dose of Lantus 64 units.? -Monitor glucose before meals and HS. -Cover meals with TENNILLE. ?? Hypertension: CHF: Blood pressure elevated in the setting of not taking her am meds. -Continue Lasix and metoprolol. ?? Atrial fibrillation: -Continue Metoprolol. -Holding Eliquis for possible toe amputation. -Will initiate heparin. ?? COPD: Stable. -Continue Breo Ellipta, Singulair??and prn albuterol. ?? Diet:?? Cardiac diabetic: ?? DVT prophylaxis:?? Heparin gtt ordered. ?? Code Status:?? Full Code.? Discharge Planning:?? -D'c home in 3-4 days. ? Histories Allergies Allergies ?(Active and Proposed Allergies [...] Surgical History cataract surgery ? Social History Alcohol Details:??Use: Never. Substance Abuse Details:??Use: Never. Tobacco Details:??Former smoker, Tobacco user in household: No. ? Psychosocial History ? Family History No family history recorded. ? Medications Home Medications Albuterol (albuterol CFC free 90 mcg/inh inhalation aerosol)?1?puff(s)?Inhalation?4 times a day?as needed?as needed for shortness of breath/wheezing use with spacer chamberPlease give spacer chamber to patient?as needed for wheezing Albuterol (albuterol 0.083% inhalation solution)?3?Milliliter?2.5?Milligram?Neb?Every 6 hours?as needed?Wheezing/Shortness of Breath?ICD J45.909as needed every 6 hours for wheezing/ shortness of breath apixaban (Eliquis 5 mg oral tablet)?1?tab(s)?5?Milligram?By Mouth?2 times a day Aspirin (Aspirin Low Dose 81 mg oral delayed release tablet)?1?tab(s)?81?Milligram?By Mouth?Daily Aspirin (Aspirin Low Dose 81 mg oral delayed release tablet)?TAKE 1 TABLET BY MOUTH EVERY DAY Azithromycin (azithromycin 250 mg oral tablet)?1?pack/packet?By Mouth?Daily Benzonatate (Tessalon Perles 100 mg oral capsule)?2?capsule?200?Milligram?By Mouth?3 times a day?as needed?as needed for cough?for 21?Days Cefpodoxime (cefpodoxime 100 mg oral tablet)?1?tab(s)?100?Milligram?By Mouth?Every 12 hours?for 7?Days Clotrimazole Topical (clotrimazole 1% topical cream)?1?shaneka?Topically?2 times a day Docusate (docusate sodium 100 mg/25 mL oral syrup)?15?Milliliter?60?Milligram?By Mouth?Every 4 hours?as needed?for constipation dulaglutide (Trulicity Pen 0.75 mg/0.5 mL subcutaneous solution)?0.5?Milliliter?0.75?Milligram?Subcutaneous Injection?Every week Durable Medical Equipment ([employer] Mask fitting and ivap teaching)?See Instructions?Mask Fitting and Ivap teaching for patient. Dx ERICKA G47.33 Ergocalciferol (Vitamin D2 50,000 intl units (1.25 mg) oral capsule)?1?capsule?50,000?International Unit?By Mouth?Every 7 days fluticasone-vilanterol (Breo Ellipta 200 mcg-25 mcg/inh inhalation powder)?1?puff(s)?Inhalation?Daily fluticasone-vilanterol (Breo Ellipta 200 mcg-25 mcg/inh inhalation powder)?INHALE 1 PUFF BY MOUTH DAILY Furosemide (Lasix 80 mg oral tablet)?80?Milligram?1?tablet?By Mouth?Daily?for 30?Days Gabapentin (gabapentin 300 mg oral capsule)?300?Milligram?1?capsule?By Mouth?2 times a day Gabapentin (gabapentin 300 mg oral capsule)?TAKE 1 CAPSULE BY MOUTH THREE TIMES A DAY Guaifenesin/Dextromethorphan (dextromethorphan-guaifenesin 10 mg-100 mg/10 mL oral liquid)?10?Milliliter?By Mouth?Every 4 hours?as needed?as needed for cough?not to exceed 6 doses/day Insulin Glargine (Lantus Inj)?See Instructions?70 Units Subcutaneous Injection dailyt in morning Insulin Glargine (Lantus Solostar Pen 100 units/mL subcutaneous solution)?INJECT 68 UNITS UNDER THE SKIN DAILY Insulin Lispro (Humalog Kwik Pen 100 units/mL subcutaneous injection)?See Instructions?As directed per sliding scale.100-150 - [id number] - 5 -881- 7 [id number] 11units> 350 - 13 units and call doctor Lisinopril (lisinopril 10 mg oral tablet)?10?Milligram?1?tablet?By Mouth?Daily Metformin (metFORMIN 850 mg oral tablet)?1?tab(s)?850?Milligram?By Mouth?Daily Alejandro Methenamine (methenamine hippurate 1 gm oral tablet)?1?tab(s)?1?gram?By Mouth?2 times a day?for 5?Days Metoprolol (Metoprolol Tartrate 50 mg oral tablet)?1?tab(s)?50?Milligram?By Mouth?2 times a day Miscellaneous Rx (CEFPODOXIME 100 MG TABLET)?TAKE 1 TABLET BY MOUTH EVERY 12 HOURS FOR 7 DAYS Montelukast (Singulair 10 mg oral tablet)?10?Milligram?1?tablet?By Mouth?Daily inPM Nitrofurantoin?100?Milligram?By Mouth?2 times a day?for 5?Days Nitrofurantoin (nitrofurantoin macrocrystals-monohydrate 100 mg oral capsule)?1?capsule?100?Milligram?By Mouth?2 times a day?for 7?Days Ocular Lubricant (ocular lubricant - solution)?2?Drops?Eye, Left?2 times a day?as needed?Other?Dryness. Oxybutynin (oxybutynin 5 mg/24 hours oral tablet, extended release)?1?tab(s)?5?Milligram?By Mouth?Daily at bedtime Oxybutynin (oxybutynin 5 mg/24 hours oral tablet, extended release)?TAKE 1 TABLET BY MOUTH EVERYDAY AT BEDTIME PredniSONE (predniSONE 10 mg oral tablet)?See Instructions?2 tabs daily for 3 days, then 1 tab daily for 3 days, then stop Simvastatin (simvastatin 40 mg oral tablet)?40?Milligram?1?tablet?By Mouth?Daily at bedtime Sodium Chloride (Hyper-Praveen 3.5% inhalation solution)?See Instructions?Use twice daily as needed for cough/secretions via nebulizer. Should be preceded by albuterol via nebulizer. j45.909 ? Inpatient Medications Medications (25) Active SCHEDULED: (14) Apixaban 5 mg Tablet (Eliquis) ??5 mg, By Mouth, 2 times a day Aspirin 81 mg EC Tablet (aspirin 81 mg oral delayed release tablet) ??81 mg, By Mouth, Daily Breo Ellipta 200 mcg / 25 mcg Inhaler (Breo Ellipta 200 mcg-25 mcg Inhaler) ??1 puffs, Inhalation, Daily Furosemide 80 mg Tablet (Lasix 80 mg oral tablet) ??80 mg, By Mouth, Daily Gabapentin 300 mg Capsule (gabapentin 300 mg oral capsule) ??300 mg, By Mouth, 2 times a day Insulin Glargine 100 units/mL Inj (Insulin Glargine Inj) ??64 units 0.64 mL, Subcutaneous Injection, Daily at bedtime Insulin Lispro 100 units/mL Inj (3mL) (Insulin LISPRO Sliding Scale) ??2-10 units, Subcutaneous Injection, 3 times a day before meals Metoprolol 50 mg Tablet (metoprolol 50 mg oral tablet) ??50 mg, By Mouth, 2 times a day Montelukast 10 mg Tablet (Singulair 10 mg oral tablet) ??10 mg, By Mouth, Daily at bedtime NaCl 0.9% Flush 3ml (NaCL 0.9% Flush) ??3 mL, IV Push, Every 8 hours Oxybutynin 5 mg ER Tablet (oxybutynin 5 mg/24 hours oral tablet, extended release) ??5 mg, By Mouth, Daily Piperacillin/Tazobactam 3.375 Gm Inj (Zosyn Extended IVPB) ??3.375 Gm, IVPB, Every 8 hours Polyethylene Glycol 17 Gm Powder (MiraLax Powder) ??17 Gm 1 pack/packet, By Mouth, Daily Simvastatin 20 mg Tablet (simvastatin 20 mg oral tablet) ??40 mg, By Mouth, Daily at bedtime CONTINUOUS: (0) PRN: (11) Acetaminophen 325 mg Tablet (Acetaminophen Tablet) ??650 mg, By Mouth, Every 4 hours Albuterol 0.083% Inhalation Solution (Albuterol 0.083% inhalation ramin) ??2.5 mg 3 mL, BAND Nebulizer, Every 4 hours Albuterol 90mcg/Inhalation Inhaler HFA (albuterol CFC free 90 mcg/inh inhalation aerosol) ??90 mcg 1 puffs, Inhalation, 4 times a day Benzonatate 100 mg Capsule (benzonatate 100 mg oral capsule) ??200 mg, By Mouth, 3 times a day Dextromethorphan-Guaifenesin 20 mg-200 mg/10 mL Liqu UD [...] mg, Chew, 3 times a day ? Results Recent Labs BLOOD COUNT & DIFF WBC 5.7 k/mm3 ()?? 12/12/2022 07:53 RBC 5.24 m/mm3 ()?? 12/12/2022 07:53 Hgb 14.3 Gm/dL ()?? 12/12/2022 07:53 Hct 44.6 % ()?? 12/12/2022 07:53 MCV 85.1 femtoliters ()?? 12/12/2022 07:53 MCH 27.3 pg ()?? 12/12/2022 07:53 MCHC 32.1 g/dL (Low)?? 12/12/2022 07:53 Platelet Count 183 k/mm3 ()?? 12/12/2022 07:53 RDW-SD 51.8 femtoliters (High)?? 12/12/2022 07:53 MPV 11.2 femtoliters ()?? 12/12/2022 07:53 Nucleated RBC (Automated) 0.0 #/100 WBC'S ()?? 12/12/2022 07:53 Abs. NRBC 0.0 k/mm3 ()?? 12/12/2022 07:53 Abs. Neut 4.2 k/mm3 ()?? 12/12/2022 07:53 Abs. Lymph 0.9 k/mm3 ()?? 12/12/2022 07:53 Abs. [place] 0.4 k/mm3 ()?? 12/12/2022 07:53 Abs. Eo 0.2 k/mm3 ()?? 12/12/2022 07:53 Abs. Baso 0.0 k/mm3 ()?? 12/12/2022 07:53 Neut % 73.9 % ()?? 12/12/2022 07:53 Lymph % 15.1 % ()?? 12/12/2022 07:53 [place] % 6.9 % ()?? 12/12/2022 07:53 Eos % 3.3 % ()?? 12/12/2022 07:53 Baso % 0.4 % ()?? 12/12/2022 07:53 Imm Gran 0.4 % ()?? 12/12/2022 07:53 Abs. Imm Gran 0.0 k/mm3 ()?? 12/12/2022 07:53 ?? CARDIAC Nt-Probnp 217 pg/mL (High)?? 12/12/2022 07:53 ?? CHEM GENERAL Sodium 136 mmol/L ()?? 12/12/2022 07:53 Potassium 4.2 mmol/L ()?? 12/12/2022 10:19 Chloride 92 mmol/L (Low)?? 12/12/2022 07:53 Bicarbonate Level 32 mmol/L (High)?? 12/12/2022 07:53 Anion Gap 12 ()?? 12/12/2022 07:53 Glucose Level 329 mg/dL (High)?? 12/12/2022 07:53 Glucose, POC 318 mg/dL (High)?? 12/12/2022 17:22 BUN 14 mg/dL ()?? 12/12/2022 07:53 Creatinine-Blood 0.5 mg/dL ()?? 12/12/2022 07:53 Estimated GFR Creatinine 103 ML/MIN/1.73 M2 ()?? 12/12/2022 07:53 Calcium 9.1 mg/dL ()?? 12/12/2022 07:53 Protein, Total 6.8 Gm/dL ()?? 12/12/2022 07:53 Albumin 4.0 Gm/dL ()?? 12/12/2022 07:53 AG Ratio 1.4 ()?? 12/12/2022 07:53 Alkaline Phosphatase 118 units/L (High)?? 12/12/2022 07:53 AST (SGOT) HEMOLYZED units/L ()?? 12/12/2022 07:53 ALT (SGPT) 19 units/L ()?? 12/12/2022 07:53 Bilirubin, Total 0.5 mg/dL ()?? 12/12/2022 07:53 Lactate 1.3 mmol/L ()?? 12/12/2022 07:53 ?? HEME OTHER Hold Blue Top SPECIMEN DISCARDED AFTER 4 HOURS. ()?? 12/12/2022 07:53 ?? MISC. CHEMISTRY Hold Green Top SPECIMEN DISCARDED AFTER 1 WEEK ()?? 12/12/2022 07:53 ?? URINE OTHER Est Creatinine Clearance 97.14 mL/min ()?? 12/12/2022 22:10 ?? VIROLOGY COVID-19 by RT-PCR NEGATIVE ()?? 12/12/2022 11:27 ? EKG study * Event Display: EKG Authored Date: * Event Display: ECG 12-Lead Authored Date: Please click on pdf link to open report * Event Display: ECG 12-Lead Authored Date: Ventricular Rate: 58 BPM Atrial Rate: 58 BPM P-R Interval: 252 ms QRS Duration: 102 ms Q-T Interval: 442 ms QTC Calculation(Bazett): 433 ms P [place]: 36 degrees R [place]: 0 degrees T [place]: 70 degrees Sinus bradycardia with marked sinus arrhythmia with 1st degree A-V block Minimal voltage criteria for LVH, may be normal variant ( [place] product ) Borderline ECG When compared with ECG of 12-DEC-2022 07:51, No significant change was found Confirmed by LIZET DEL VALLE MD ([id number]) on 12/14/2022 10:06:13 AM [place]: LIZET DEL VALLE MD * Event Display: ECG 12-Lead Authored Date: Please click on pdf link to open report * Event Display: ECG 12-Lead Authored Date: Ventricular Rate: 67 BPM Atrial Rate: 67 BPM P-R Interval: 216 ms QRS Duration: 102 ms Q-T Interval: 436 ms QTC Calculation(Bazett): 460 ms P [place]: 68 degrees R [place]: -2 degrees T [place]: 68 degrees Sinus rhythm with 1st degree A-V block with Premature supraventricular complexes Otherwise normal ECG When compared with ECG of 26-OCT-2022 12:00, AR interval has increased T wave inversion no longer evident in Lateral leads Confirmed by ANTONINO LANGE MD ([id number]) on 12/14/2022 4:29:22 PM [place]: ANTONINO LANGE MD Cardiology * Event Display: Cardiac Rhythm Strips Authored Date: * Event Display: VL Ankle/Brachial Indices Authored Date: * Event Display: VL Ankle/Brachial Indices Authored Date: Demographics Procedure Information Patient name: KIA KEE Procedure date: 12/13/2022 9:16 AM Corporate Proc. sub type: Extremities Arteries: Lower Arterial Plethysmography, PVR Limited Single Gender: Female Level. Date of : 1950 Accession No: [id number] Age: 72 year(s) Account No: [id number] Admit Status: Inpatient Procedure Staff Facility: [facility] Ordering physician: Priest Rufino Bolden NP [place] [facility] [place] Referring Physician: Priest Rufino Bolden NP Procedure consent obtained: Attending Physician: Not on Staff Attending MD No Admitting Physician: Not on Staff Attending Retrofit Installer: Nelsy Amin RVT Interpreting physician: Heath Veronica MD Indications Pain in limb. Lower Extremity Findings Right Left Location Pressure (mmHg) Ratio Pressure (mmHg) Ratio Brachial 147 SAIL[place] 152 1.03 154 1.05 DPA 103 0.7 134 0.91 Great Toe 88 0.6 109 0.74 Right EVA: 1.03 Left EVA: 1.05 Right TBI: Left TBI: 0.6 0.74 Study Comments Left arm IV line. Physician Conclusions Summary: The Ankle / Brachial Index on the right is 1.0, within normal values. The PVR waveforms exhibit normal amplitude with a visible dichrotic notch. The Toe / Brachial Index on the right is 0.6 . The Ankle / Brachial Index on the left is 1.0 ., within normal values. The PVR waveform amplitude is normal, but the dichrotic notch is absent. This finding is mildly abnormal. The Toe / Brachial Index on the left is 0.7 is normal. No prior test. Snapshots * Event Display: VL Arterial Duplex Scan Left Authored Date: [id number] Demographics Procedure Information Patient name: KIA KEE Procedure date: 12/13/2022 9:16 AM Corporate Proc. sub type: Extremities Arteries: Lower Extremities Arterial Duplex, Arterial Gender: Female Duplex Scan Lower Extremity Left. Date of : 1950 Accession No: [id number] Age: 72 year(s) Account No: [id number] Admit Status: Inpatient Procedure Staff Probe: L9-3 Ordering physician: Priest Rufino Bolden NP Technical quality: Adequate visualization Referring Physician: Priest Rufino Bolden NP Limitation reason: Patient immobility Attending Physician: Not on Staff Attending Facility: [facility] Admitting Physician: Not on Staff [place]ending [place] [facility] [place] Retrofit Installer: Nelsy Amin RVT Procedure consent obtained: Interpreting physician: Reyes Black MD No Indications Pain in limb. LE Arterial Diagram Right Left The diagram is not intended for diagnosis. It is provided for reference only. LE Arterial Duplex Findings Left Location PSV (cm/s) EDV (cm/s) Ratio Plaque Characteristics Wave Description Dist EIA 109.1 Multiphasic Common Femoral 99.9 Multiphasic Prox PFA 87.2 Multiphasic Prox SFA 107.5 Multiphasic Mid SFA 94.8 0.88 Multiphasic Dist SFA 76.6 0.81 Multiphasic Mid Popliteal 96.4 1.26 Multiphasic Prox SAILOR 38.3 8.7 0.4 Monophasic Mid SAILOR 67.9 1.77 Monophasic Dist SAILOR 51.8 0.76 Monophasic Prox SALEEM 31.5 9.7 0.33 Monophasic Mid SALEEM 13 6.4 0.41 Monophasic Dist SALEEM 31.5 7.5 2.42 Monophasic Prox Peroneal 68.5 7.5 1.79 Monophasic Mid Peroneal 0 0 Absent Physician Conclusions Summary: No flow seen in left mid peroneal artery. Reduced velocities seen in left mid anterior tibial artery. Patent left distal external iliac, common and superficial femoral and popliteal arteries. * Event Display: VL Arterial Duplex Scan Left Authored Date: Hospital Progress note * Dayday Phillips RN: VERIFY, PERFORM, SIGN Event Display: Progress Note Hospital Authored Date: Patient: VIDHYA ADAM Age: 72 years Sex: Female : 1950 Associated Diagnoses: None Author: Dayday Phillips RN Findings Problem Related to Alteration in Cardiac Function (new) : Alteration in Cardiac Function/new 12/17/2022 9:00 EDT Alteration in Cardiac Status Related to Heart failure Goals & Outcomes, Cardiac Status Pt will resume/maintain adequate cardiac output, Pt will resume/maintain adequate hemodynamic status, Pt will resume/maintain adequate respiratory function, Pt will maintain adequate nutrition status, Pt/caregiver will state understanding of diagnosis Cardiac Interventions Implemented Assess/monitor cardiac status, Assess/monitor neuro status, Assess/monitor respiratory status, Call/Report variances in ECG to provider, Document & Monitor O2 Sats; Administer O2 as ordered, Ensure adequate caloric intake, If no bowel movement in 3 days activate bowel regime, Monitor & document daily weight BH Goals/Interventions, Cardiac Yes Cardiac, Problem Start 12/12/2022 22:30 Reviewed Plan with, Cardiac Status Patient Patient Progression, Cardiac Status Patient progressing according to plan . Alteration in Fluid Electrolyte : Alteration in Fluid Electrolyte Func/new 12/17/2022 9:00 EDT Alteration Fluid Electrolytes Related to Fluid Volume Excess Goals & Outcomes, Fluid/Electrolyte Blood glucose levels will stabilize during hospitalization,Vital signs, electrolytes & glucose levels will stabilize, Pt will maintain adequate GI/ function appropriate for pt, Pt will maintain skin turgor, Pt will resume/maintain adequate cardiac output, Pt will resume/maintain adequate hemodynamic status, Pt will state importance of adhering to medication regime, Pt's weight will normalize Interventions, Fluid Electrolyte monitor cardiac status, monitor dietary intake, Monitor effects ofdiuretics, monitor effects of insulin, glucose values, monitor for s/s of anemia: weakness, fatigue,, monitor for s/s of hyper/hypokalemia, monitor for s/s of hypo or hyperglycemia, monitor GI/ status, monitor hydration status, monitor mucous membranes, monitor peripheral pulses, monitor skin turgor, temperature & capillary refill, Encourage & assist with increased activity as pt tolerates, Encourage oral intake of meals, snacks, supplements, Encourage oral intake/fluids as ordered, Maintain strict intake & output, Monitor & document daily weight BH Goals/Interventions,Fluid Electrolyte Yes Fluid Electrolyte, Problem Start 12/12/2022 22:30 Reviewed plan with, Fluid Electrolyte Patient Patient Progression, Fluid Electrolyte Pt progressing according to plan . Alteration in Genitourinary : Alteration in Genitourinary Function/new 12/17/2022 9:00 EDT Alteration in Status Related to UTI Goals & Outcomes, Genitourinary Pt will achieve normal/improved fluid balance, Pt will maintainadequate GI function appropriate for pt, Pt will maintain adequate function appropriate for pt, Pt will maintain normal fluid balance, Pt will resume normal pattern of elimination, Pt/caregiver will state understanding of self-care skills Interventions, Assess/monitor/maintain Genitourinary status, Assist & encourage pt with meticulous erika care, Encourage PO fluid intake as allowed by diet, Assess/monitor effects of antibiotics, Assess/monitor s/s of urinary tract infection, Teach Pt/caregiver s/s of urinary tract infection BH Goals/Interventions, Genitourinary Yes Genitourinary, Problem Start 12/13/2022 18:08 Reviewed Plan with, Genitourinary Patient Patient Progression, Genitourinary Patient progressing according to plan Genitourinary, Problem Ongoing Yes . Nursing Data Cardiac Data. : Cardiac Data. 12/17/2022 9:00 EDT Cardiovascular Symptoms Edema present Nail Bed Color, Fingers Pale Nail Bed Color, Toes Pale Skin Temperature Upper Extremities Warm, Dry Skin Temperature Lower Extremities Warm, Dry Heart Sounds S1, S2, Murmur Heart Rhythm Regular Cardiac Rhythm First degree heart block Capillary Refill < 3 seconds Ankle, left 1+ trace Ankle, right 1+ trace Pedal, left 1+ trace Pedal, right 1+ trace playground monitor Yes Cardiovascular WNL except . Gastrointestinal Data. : Gastrointestinal Data. 12/17/2022 9:00 EDT GI WNL . Genitourinary Data. : Genitourinary Data. 12/17/2022 9:00 EDT Urinary catheter type Triple Lumen Indwelling Urinary Catheter Urinary catheter intervention Clamped Date of Insertion 12/06/2022 Urine Color Yellow Genitourinary Comment rai is chronic, site without redness/swelling and pt on ivab for UTI WNL except . Integumentary Data. : Integumentary Data. 12/17/2022 9:00 EDT Skin Integrity Not intact (Modified) Sensory Perception No impairment Moisture Occasionally moist Activity Chairfast Activity Chairfast Mobility Very limited Mobility Very limited Nutrition Excellent Friction and Shear Potential problem Higinio Score 17 Nursing Care Plan initiated/updated Yes Wound Type I Other: gangrene Wound Location I Second toe, left Wound I, Drainage Amount None Wound I, Surrounding Skin Intact, Other: blackened Pressure Ulcer Location I Coccyx Pressure Ulcer I, Stage Deep tissue injury (suspected) Pressure Ulcer I, Drainage Amount None Pressure Ulcer I, Surrounding Skin Intact, Erythematous Integumentary WNL except . Musculoskeletal Data. : Musculoskeletal Data. 12/17/2022 9:00 EDT Musculoskeletal Symptoms Weakness Musculoskeletal Comment on therapeutic bed Musculoskeletal WNL except . Neurological Data. : Neurological Data. 12/17/2022 9:33 EDT Pain Intensity 2 Pain Intensity 2 12/17/2022 9:00 EDT Neurological Symptoms Back pain, Weakness or loss of muscle strength Pain Location Other: multiple joints Pain Interventions Pharmacological Pain Comment takes gabapentin & tylenol to alleviate (Modified) Neuro WNL except 12/17/2022 8:33 EDT Pain Intensity 0 Pain Intensity 6 Pain Intensity 6 . Respiratory/Pulmonary Data. : Respiratory/Pulmonary Data. 12/17/2022 9:00 EDT Respiratory Symptoms Other: takes inhalers and singulair Left Lower Lobe Breath Sounds Diminished Right Lower Lobe Breath Sounds Diminished Respiratory WNL except . Vital Signs : VITAL SIGNS SECTION 12/17/2022 7:29 EDT Early Warning Score 2.00 12/17/2022 7:29 EDT Temperature 97.8 DegF Temperature Route Temporal Pulse Rate 60 bpm Respiratory Rate 18 br/min Systolic Blood Pressure 136 mm Hg Diastolic Blood Pressure 67 mm Hg Blood pressure sites Arm, right Mean Arterial Pressure 90 mm Hg Pulse Pressure 69 mm Hg Oxygen Saturation 96 % Mode of Delivery (Oxygen) Room air . Clinical Measurements : CLINICAL MEASUREMENTS 12/17/2022 5:11 EDT Weight 119.1 kg 12/16/2022 5:09 EDT Weight 119.2 kg . Psychosocial : Psychosocial Data. 12/17/2022 9:00 EDT Affect/Behavior Appropriate, Cooperative . Narrative/Incidental Weight down 0.1kg oveernight on sodium/cardiac restricted diet and po lasix, some trace ankle edemabut not short of breath, tolerating eating at meals with glucose covered per scale,bedrest, pain controlled with usual medicines. Remains in sinus rhythm with 1st degree av block on monitor. On therapuetic bed and left 2nd toe gangrene painted with betadine(no redness or sx infection), coccyx DTI with protective cream. Rai catheter remains intact and draining well - pt finished last small ivab and has no dysuria/pressure/other symptoms. Plan is for discharge home today. * Barb Bright RN: PERFORM, SIGN, VERIFY Event Display: Progress Note Hospital Authored Date: [id number] Patient: VIDHYA ADAM Age: 72 years Sex: Female : 1950 Associated Diagnoses: None Author: Barb Bright RN Findings Problem Related to Alteration in Cardiac Function (new) : Alteration in Cardiac Function/new 12/16/2022 20:00 EDT Alteration in Cardiac Status Related to Heart failure Goals & Outcomes, Cardiac Status Pt will resume/maintain adequate cardiac output, Pt will resume/maintain adequate hemodynamic status, Pt will resume/maintain adequate respiratory function, Pt will maintain adequate nutrition status, Pt/caregiver will state understanding of diagnosis Cardiac Interventions Implemented Assess/monitor cardiac status, Assess/monitor neuro status, Assess/monitor respiratory status, Assess for tolerance of IV infusions; verify rate & dose, Monitor & document daily weight, Monitor anticoagulation values Goals/Interventions, Cardiac Yes Cardiac, Problem Start 12/12/2022 22:30 Reviewed Plan with, Cardiac Status Patient Patient Progression, Cardiac Status Patient progressing according to plan . Alteration in Genitourinary : Alteration in Genitourinary Function/new 12/16/2022 20:00 EDT Alteration in Status Related to UTI Goals & Outcomes, Genitourinary Pt will achieve normal/improved fluid balance, Pt will maintainadequate GI function appropriate for pt, Pt will maintain adequate function appropriate for pt, Pt will maintain normal fluid balance, Pt will resume normal pattern of elimination, Pt/caregiver will state understanding of self-care skills Interventions, Assess causative factors of urinary retention Goals/Interventions, Genitourinary Yes Genitourinary, Problem Start 12/13/2022 18:08 Reviewed Plan with, Genitourinary Patient Patient Progression, Genitourinary Patient progressing according to plan Genitourinary, Problem Ongoing Yes . Nursing Data Vital Signs : VITAL SIGNS SECTION 12/16/2022 19:31 EDT Temperature 97.8 DegF Temperature Route Temporal Pulse Rate 70 bpm Respiratory Rate 18 br/min Systolic Blood Pressure 117 mm Hg Diastolic Blood Pressure 61 mm Hg Blood pressure sites Arm, right Mean Arterial Pressure 80 mm Hg Pulse Pressure 56 mm Hg Oxygen Saturation 93 % L Liters per Minute 2.5 L/min Mode of Delivery (Oxygen) Nasal cannula . Narrative/Incidental Patient is alert and oriented x4, pleasant and cooperative with care. Lungs CTA bilaterally, endorses SOB with exertion. Refuses CPAP, wears 2L O2 NC at NOC. Increased oral secretions and . post-nasal drip lately per patient, suction with Yankauer at bedside. Tele NSR with first degree HB. +BSx4. Abdomen rounded, SNT. MWWW. LBM 12/14. Nystatin applied to abdominal folds. Chronic rai patent, collec ting CYU. Rai and erika-care provided. Barrier cream to buttocks. Left 4th toe necrotic, MYNOR, betadine paint tonight. WC bound at baseline. VSS. Potential DC home tomorrow. Call bain and belongings are within reach, bed in lowest locked position.. * Rocio Andrade RN: PERFORM, SIGN, VERIFY, MODIFY, SIGN Event Display: Progress Note Hospital Authored Date: Patient: VIDHYA ADAM Age: 72 years Sex: Female : 1950 Associated Diagnoses: None Author: Rocio Andrade RN Findings Problem Related to Alteration in Cardiac Function (new) : Alteration in Cardiac Function/new 12/16/2022 17:00 EDT Alteration in Cardiac Status Related to Heart failure Goals & Outcomes, Cardiac Status Pt will resume/maintain adequate cardiac output, Pt will resume/maintain adequate hemodynamic status, Pt will resume/maintain adequate respiratory function, Pt will maintain adequate nutrition status, Pt/caregiver will state understanding of diagnosis Cardiac Interventions Implemented Assess/monitor cardiac status, Assess/monitor neuro status, Assess/monitor respiratory status, Assess for tolerance of IV infusions; verify rate & dose, Call/Report variances in ECG to provider, Document & Monitor O2 Sats; Administer O2 as ordered, Ensure adequate caloric intake, If no bowel movement in 3 days activate bowel regime, Monitor & document daily weight, Monitor anticoagulation values Goals/Interventions, Cardiac Yes Cardiac, Problem Start 12/12/2022 22:30 Reviewed Plan with, Cardiac Status Patient Patient Progression, Cardiac Status Patient progressing according to plan . Nursing Data Cardiac Data. : Cardiac Data. 12/16/2022 17:21 EDT Skin Temperature Upper Extremities Warm, Dry Skin Temperature Lower Extremities Warm, Dry Heart Sounds S1, S2 Pacemaker No Cardiac Rhythm Normal sinus rhythm Capillary Refill < 3 seconds Edema, Left Pretibial 1+ trace Edema, Right Pretibial 1+ trace Ankle, left 1+ trace Ankle, right 1+ trace Pedal, left 1+ trace Pedal, right 1+ trace playground monitor Yes Cardiovascular WNL except 12/16/2022 1:12 EDT Hgb 13.7 Gm/dL Hct 44.0 % . Narrative/Incidental a&o x3. NSR on tele. pt is bedfast at baseline. rai catheter is in place and draining clear yellow urine; rai care was done this shift. pt has left prosthetic eye. pt has left necrotic toe and plan was for pt to be on a 7 day course of antibiotics but per md antibiotic course will be 5 daysand pt will be discharged tomorrow. see cis for full biophysical assessment and plan.. Discharge Information Case Management Discharge Plan : Case Management Discharge Plan Data 12/16/2022 14:20 EDT Discharge Level of Care at Discharge Homehealth/VNA Discharge VNA/Hospice/Home Care [facility] [phone] Discharge Transportation Arranged [facility] [address] [facility] [phone] Discharge Arranged Transport Date/Time 12/17/2022 12:00 Mode of Transportation Arranged Ambulance Name of Agency #1 [facility] Word Processor Operator #1 intake Service Categories #1 Physical Therapy, Penitentiary Service Comments #1 Patient is active with [facility]. VNA will resume services upon discharge if you dont hear from them please call them directly. 12/13/2022 14:33 EDT Discharge Nursing Homes/Rehab Facilities [facility] [phone] Note * Dayday Phillips RN: PERFORM Event Display: Discharge/Transfer Note Hospital Authored Date: [id number] Nursing Discharge Note Entered On: 12/17/2022 14:03 EDT Performed On: 12/17/2022 13:40 EDT by Dayday Phillips RN Nursing Discharge Note 2 Discharge Time : 12/17/2022 13:40 EDT Discharge Level of Care at Discharge : Homehealth/VNA Discharge Nursing Homes/Rehab Facilities : [facility] [phone] Discharge VNA/Hospice/Home Care([id number]) : [facility] [phone] Patient Left Unit Via : Ambulance Patient Accompanied Off Unit with : Ambulance/Chair Van Personnel Handover Given to Transport Personnel : Yes DC Instructions Provided & Signed by Pt : Yes Patient Understands D/C Instructions : Yes Verbalized Understanding of D/C Plan By : Patient, Other: her daughter(over the phone) Patient Instructions Discharge Signed : Yes Discharge Comments : see discharge instructions; see notes about medicines on scanned MD summary Did Pt have Specialty Bed or Wound Vac : Yes Alan FARNSWORTH, Dayday - 12/17/2022 14:01 EDT * Oneida Azevedo DO: PERFORM Event Display: Discharge/Transfer Note Hospital Authored Date: Patient: ??VIDHYA ADAM ? Age:??72 Years?Sex:??Female?:??1950?? 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) ??Gangrenous/ Necrotic Left 4th Toe _ Discharge Medications Albuterol (albuterol CFC free 90 mcg/inh inhalation aerosol)?1?puff(s)?Inhalation?4 times a day?as needed?as needed for shortness of breath/wheezing use with spacer chamberPlease give spacer chamber to patient?as needed for wheezing Albuterol (albuterol 0.083% inhalation solution)?3?Milliliter?2.5?Milligram?Neb?Every 6 hours?as needed?Wheezing/Shortness of Breath?ICD J45.909as needed every 6 hours for wheezing/ shortness of breath apixaban (Eliquis 5 mg oral tablet)?1?tab(s)?5?Milligram?By Mouth?2 times a day Aspirin (Aspirin Low Dose 81 mg oral delayed release tablet)?1?tab(s)?81?Milligram?By Mouth?Daily Aspirin (Aspirin Low Dose 81 mg oral delayed release tablet)?TAKE 1 TABLET BY MOUTH EVERY DAY Azithromycin (azithromycin 250 mg oral tablet)?1?pack/packet?By Mouth?Daily Clotrimazole Topical (clotrimazole 1% topical cream)?1?shaneka?Topically?2 times a day Docusate (docusate sodium 100 mg/25 mL oral syrup)?15?Milliliter?60?Milligram?By Mouth?Every 4 hours?as needed?for constipation dulaglutide (Trulicity Pen 0.75 mg/0.5 mL subcutaneous solution)?0.5?Milliliter?0.75?Milligram?Subcutaneous Injection?Every week Durable Medical Equipment ([employer] Mask fitting and ivap teaching)?See Instructions?Mask Fitting and Ivap teaching for patient. Dx ERICKA G47.33 Ergocalciferol (Vitamin D2 50,000 intl units (1.25 mg) oral capsule)?1?capsule?50,000?International Unit?By Mouth?Every 7 days fluticasone-vilanterol (Breo Ellipta 200 mcg-25 mcg/inh inhalation powder)?1?puff(s)?Inhalation?Daily fluticasone-vilanterol (Breo Ellipta 200 mcg-25 mcg/inh inhalation powder)?INHALE 1 PUFF BY MOUTH DAILY Furosemide (Lasix 80 mg oral tablet)?80?Milligram?1?tablet?By Mouth?Daily?for 30?Days Gabapentin (gabapentin 300 mg oral capsule)?300?Milligram?1?capsule?By Mouth?2 times a day Gabapentin (gabapentin 300 mg oral capsule)?TAKE 1 CAPSULE BY MOUTH THREE TIMES A DAY Guaifenesin/Dextromethorphan (dextromethorphan-guaifenesin 10 mg-100 mg/10 mL oral liquid)?10?Milliliter?By Mouth?Every 4 hours?as needed?as needed for cough?not to exceed 6 doses/day Insulin Glargine (Lantus Inj)?See Instructions?70 Units Subcutaneous Injection dailyt in morning Insulin Glargine (Lantus Solostar Pen 100 units/mL subcutaneous solution)?INJECT 68 UNITS UNDER THE SKIN DAILY Insulin Lispro (Humalog Kwik Pen 100 units/mL subcutaneous injection)?See Instructions?As directed per sliding scale.100-150 - [id number] - 5 [id number]- 7 [id number]- 9 [id number]- 11units> 350 - 13 units and call doctor Lisinopril (lisinopril 10 mg oral tablet)?10?Milligram?1?tablet?By Mouth?Daily Metformin (metFORMIN 850 mg oral tablet)?1?tab(s)?850?Milligram?By Mouth?Daily Alejandro Methenamine (methenamine hippurate 1 gm oral tablet)?1?tab(s)?1?gram?By Mouth?2 times a day?for 5?Days Metoprolol (Metoprolol Tartrate 50 mg oral tablet)?1?tab(s)?50?Milligram?By Mouth?2 times a day Montelukast (Singulair 10 mg oral tablet)?10?Milligram?1?tablet?By Mouth?Daily inPM Ocular Lubricant (ocular lubricant - solution)?2?Drops?Eye, Left?2 times a day?as needed?Other?Dryness. Oxybutynin (oxybutynin 5 mg/24 hours oral tablet, extended release)?1?tab(s)?5?Milligram?By Mouth?Daily at bedtime Oxybutynin (oxybutynin 5 mg/24 hours oral tablet, extended release)?TAKE 1 TABLET BY MOUTH EVERYDAY AT BEDTIME Povidone Iodine Topical (Betadine 10% solution)?See Instructions?Topically Daily PredniSONE (predniSONE 10 mg oral tablet)?See Instructions?2 tabs daily for 3 days, then 1 tab daily for 3 days, then stop Simvastatin (simvastatin 40 mg oral tablet)?40?Milligram?1?tablet?By Mouth?Daily at bedtime Sodium Chloride (Hyper-Praveen 3.5% inhalation solution)?See Instructions?Use twice daily as needed for cough/secretions via nebulizer. Should be preceded by albuterol via nebulizer. j45.909 ? Medications Started Povidone Iodine Topical (Betadine 10% solution)?See Instructions?Topically Daily Medications Discontinued None Doses Changed None Allergies Allergies ?(Active and Proposed Allergies Only) Silvadene? (Severity: Unknown severity, Onset: Unknown) ?Reactions: unsure, skin alicea ? PCP Follow-Up/Heads-Up 1. Patient will require Vascular surgery outpatient management for necrotic toe. She has an appointment set up in 4 weeks. Future Appointments 2022 2:00 PM EDT ?? Where: [facility] Status: Pending 2022 2:00 PM EDT ?? Where: [facility] [address] [place] [address]- Status: Pending Monday 10:30 AM EDT ?? With: Burton Chapman DO Where: [facility] [address] [place] [address]- Status: Pending Hospital Course This is a 72-year-old female with past medical history of diabetes, hypertension, previous UTIs with chronic Rai catheter in place, atrial fibrillation on Eliquis, obesity, CHF, COPD, wheelchair-bound at baseline who is presenting today from home after she fell out of her wheelchair. Pt admitted for left 4th necrotic toe for which Vascular surgery is following. Pt is also receiving treatment for complicated??UTI found on 12/08. Patient with history of indwelling catheter diagnosed with UTI a couple of days ago and started on po antibiotic, now with urine cultures showing Multidrug-resistant E. coli (ESBL). ??Patient was started on Zosyn for a total 5-day course.?? Follow-up blood cultures with no growth to date. ??In addition vascular surgery consulted for gangrenous/necrotic left fourth toe. ??At this time patient is not interested in surgical intervention for gangrenous toe. ??Please see below for additional work-up done.?? Patient has completed her antibiotic course and has remained hemodynamically stable. ??She will return home. Objective Assessment and Plan Gangrenous/ Necrotic Left 4th Toe Patient evaluated by vascular Surgery- input appreciated. Per Vascular note she is refusing L4 amp at this time; if she has normal perfusion, and given superficial nature of wound, and lack of osteo on XR, it might be reasonable to monitor Since patient is denying surgical intervention at this time, will switch Heparin gtt back to Eliquis. LLE duplex shows - No flow seen in left mid peroneal artery. Reduced velocities seen in left mid anterior tibial artery. Patent left distal external iliac, common and superficial femoral and popliteal arteries. EVA shows - The Ankle / Brachial Index on the right is 1.0, within normal values. The PVR waveforms exhibit normal amplitude with a visible dichrotic notch. The Toe / Brachial Index on the right is 0.6 . ??The Ankle / Brachial Index on the left is 1.0 ., within normal values. The PVR waveform amplitude is normal, but the dichrotic notch is absent. This finding is mildly abnormal. The Toe / Brachial Index on the left is 0.7 is normal. ?? Per vascular note - There's a chance her gangrene may be superficial, and with no arterial insufficiency, based on duplex and exam, she might have a chance to heal the wound.?? She understands thatthere is a risk of conversion to wet gangrene and pedal sepsis, which could result in a higher level amputation - but she accepts this risk to save her toe. ?? Recommendations: - Vascular surgery following- appreciate recs - home Eliquis??restarted - Betadine paint to L4 toe - EVA obtained- results shown above - follow up in the Vascular Office 4 weeks from discharge ? Urinary Tract Infection (complicated) Patient with history of indwelling catheter diagnosed with UTI a couple of days ago and started on po antibiotic, now with urine cultures Multidrug-resistant E. coli (ESBL). Treatment: Zosyn x5 days ? Oneida Azevedo D.O. Internal Medicine PGY1 Pager: [phone]? Patient seen and management discussed??with attending physician,??Dr. Childs ?? Vital Signs?? Temperature: 97.8 DegF (12/17/22 07:29:00) Temperature Route: Temporal (12/17/22:29:00) Pulse Rate: 60 bpm (12/17/22 08:33:00) Respiratory Rate: 20 br/min (12/17/22 08:33:00) Systolic Blood Pressure: 136 mm Hg (12/17/22 08:33:00) Diastolic Blood Pressure: 67 mm Hg (12/17/22 08:33:00) Blood pressure sites: Arm, right (12/17/22 07:29:00) Mean Arterial Pressure: 90 mm Hg (12/17/22 07:29:00) Pulse Pressure: 69 mm Hg (12/17/22 07:29:00) Oxygen Saturation: 96 % (12/17/22 07:29:00) Liters per Minute: 2.5 L/min (12/16/22 19:31:00) Mode of Delivery (Oxygen): Room air (12/17/22 07:29:00) Early Warning Score: 3 (12/17/22 11:21:25) ? . Physical Exam Constitutional: Alert, in no distress. ?Mental Status: Oriented to person, place and time. ?Head: Normocephalic. ?Eyes: Pupils are equal, round and reactive to light. Extraocular muscles intact. ?Ear, Nose and Throat: Oropharynx clear, mucous membranes moist. Ears and nose without masses, lesions or deformities. Trachea midline. ?Neck: Supple, Full range of motion. ?Respiratory: Wheezing throughout both lung ruiz ?Cardiovascular: S1 S2 normal regular. /6 diastolic murmur heard in all 4 regions consistent with diastolic murmur. unable to assess JVD. 1+ pitting edema. ?Gastrointestinal: Abdomen soft, non-tender, non-distended. Normal bowel sounds. No pulsatile mass. No hepatosplenomegaly. ?Genitourinary: No costovertebral angle tenderness. ?Neurologic: Cranial nerves II-XII grossly intact. No focal neurological deficits. Moves all extremities spontaneously. Sensation intact bilaterally. ?Skin: No rashes or lesions. No petechiae or purpura.?Musculoskeletal: No cyanosis or clubbing. No gross deformities. Normal range of motion. necrotic 4th left toe. ?Psychiatric: Normal mood and affect Follow-Up Appointments Added Follow Up ?Time Frame ?Comments Glenys GONZALEZ, Heath Okeefe?1 month?No studies Patient Instructions Hello,? Below are a few instructions to follow post discharge ?? 1. ??You will need to follow-up with vascular surgery in 4 weeks. ??If you do not hear from their office then below is the information to contact them ?? [facility] [address], [address] [place] [address] Get Directions [phone] ?? 2. ??Please continue the use of Betadine??until this appointment Post Discharge Care Activity: Ambulate with assistance ??3 times a day ??unless otherwise specified Code Status: ?? Full Resuscitation Condition: Good Prognosis: Good Discharge ?12/17/22 12:14:00 EDT Discharge Prescriptions ?ePrescribed, ??Llamas, ??12/17/22 12:14:00 EDT Home Health Face to Face ^HomeHealth[facility] Results Discharge Labs BLOOD COUNT & DIFF WBC 7.9 k/mm3 ()?? 12/17/2022 06:39 RBC 5.11 m/mm3 ()?? 12/17/2022 06:39 Hgb 13.5 Gm/dL ()?? 12/17/2022 06:39 Hct 43.9 % ()?? 12/17/2022 06:39 MCV 85.9 femtoliters ()?? 12/17/2022 06:39 MCH 26.4 pg (Low)?? 12/17/2022 06:39 MCHC 30.8 g/dL (Low)?? 12/17/2022 06:39 Platelet Count 169 k/mm3 ()?? 12/17/2022 06:39 RDW-SD 51.4 femtoliters (High)?? 12/17/2022 06:39 MPV 11.1 femtoliters ()?? 12/17/2022 06:39 Nucleated RBC (Automated) 0.0 #/100 WBC'S ()?? 12/17/2022 06:39 Abs. NRBC 0.0 k/mm3 ()?? 12/17/2022 06:39 Abs. Neut 4.2 k/mm3 ()?? 12/12/2022 07:53 Abs. Lymph 0.9 k/mm3 ()?? 12/12/2022 07:53 Abs. [place] 0.4 k/mm3 ()?? 12/12/2022 07:53 Abs. Eo 0.2 k/mm3 ()?? 12/12/2022 07:53 Abs. Baso 0.0 k/mm3 ()?? 12/12/2022 07:53 Neut % 73.9 % ()?? 12/12/2022 07:53 Lymph % 15.1 % ()?? 12/12/2022 07:53 [place] % 6.9 % ()?? 12/12/2022 07:53 Eos % 3.3 % ()?? 12/12/2022 07:53 Baso % 0.4 % ()?? 12/12/2022 07:53 Imm Gran 0.4 % ()?? 12/12/2022 07:53 Abs. Imm Gran 0.0 k/mm3 ()?? 12/12/2022 07:53 ?? CARDIAC Nt-Probnp 217 pg/mL (High)?? 12/12/2022 07:53 ? CHEM GENERAL Sodium 133 mmol/L ()?? 12/17/2022 06:42 Potassium 3.9 mmol/L ()?? 12/17/2022 06:42 Chloride 94 mmol/L (Low)?? 12/17/2022 06:42 Bicarbonate Level 28 mmol/L ()?? 12/17/2022 06:42 Anion Gap 11 ()?? 12/17/2022 06:42 Glucose Level 173 mg/dL (High)?? 12/17/2022 06:42 Glucose, POC 255 mg/dL (High)?? 12/17/2022 11:14 BUN 13 mg/dL ()?? 12/17/2022 06:42 Creatinine-Blood 0.4 mg/dL (Low)?? 12/17/2022 06:42 Estimated GFR Creatinine 104 ML/MIN/1.73 M2 ()?? 12/17/2022 06:42 Calcium 8.9 mg/dL ()?? 12/17/2022 06:42 Phosphorus 3.8 mg/dL ()?? 12/17/2022 06:42 Magnesium 1.9 mg/dL ()?? 12/17/2022 06:42 Protein, Total 6.8 Gm/dL ()?? 12/12/2022 07:53 Albumin 4.0 Gm/dL ()?? 12/12/2022 07:53 AG Ratio 1.4 ()?? 12/12/2022 07:53 Alkaline Phosphatase 118 units/L (High)?? 12/12/2022 07:53 AST (SGOT) HEMOLYZED units/L ()?? 12/12/2022 07:53 ALT (SGPT) 19 units/L ()?? 12/12/2022 07:53 Bilirubin, Total 0.5 mg/dL ()?? 12/12/2022 07:53 Lactate 1.3 mmol/L ()?? 12/12/2022 07:53 ? COAG INR 1.1 ()?? 12/12/2022 22:12 Protime (PT) 11.6 seconds (High)?? 12/12/2022 22:12 APTT 41.9 seconds (High)?? 12/13/2022 09:35 ? HEME OTHER Hold Lavender Top SPECIMEN DISCARDED AFTER 24 HOURS. ()?? 12/15/2022 02:40 Hold Blue Top SPECIMEN DISCARDED AFTER 4 HOURS. ()?? 12/12/2022 07:53 ?? MISC. CHEMISTRY Hold Green Top SPECIMEN DISCARDED AFTER 1 WEEK ()?? 12/12/2022 07:53 ? URINE OTHER Est Creatinine Clearance 121.43 mL/min ()?? 12/17/2022 08:16 ? VIROLOGY COVID-19 by RT-PCR NEGATIVE ()?? 12/12/2022 11:27 ? _ minutes spent on discharge * Amadeo GONZALEZ, [facility]: PERFORM Event Display: Discharge/Transfer Note Hospital Authored Date: Attending Attestation: I saw and examined the patient with the resident team and reviewed the charton the day of service. I have discussed the case and its management with the resident as documentedin the resident note on the day of service. I agree with the resident's note and plan as documented. ?? Time spent on discharge is 35 minutes. * Dayday Phillips RN: PERFORM Event Display: Patient Education/Instruction Authored Date: Inpatient Adult Discharge Instructions [address] [address] Name: VIDHYA ADAM : 1950 Visit: 12/12/2022 11:16:00 Current Date: 12/17/2022 12:37 Account: [id number] Inpatient Adult Discharge Instructions We would like [...] and their families. Surveys are administered by [employer]. ?? If further treatment with your primary care physician or another doctor is recommended, it is important for you to keep the appointment. Call your primary care physician or return to the Emergency Department immediately if your condition worsens, fails to improve, or new symptoms develop. If you need to find a doctor, you can call [facility] for a referral at [phone] or toll free at [phone]) or log in to [email or web address].. ?? You can view and manage your care through the patient portal or by using a health care shaneka of your choosing. [employer] is a website that allows you to securely view your medical information including your hospital discharge summary, office visit summaries, medications and follow-up visits. You can also request appointments, renew medications, and request access to your medical information using a health care shaneka of your choosing, or just ask a question. You can enroll at [email or web address] or register during your next office visit. You have been discharged from [facility], Patient Care Unit: M7. If you have any questions regarding these instructions after you leave, please call us and we will be happy to assist you. [facility] Your Care Team Attending Physician Liliane Childs MD Discharging Providers Oneida Azevedo DO Reason for Admission Slipped forward in chair. C/o lower feet pain Did not fall out of chair. No head strike. No LOC. Your Diagnosis Powered wheelchair colliding with stationary object Wheelchair dependent Toe necrosis Shortness of breath Congestive heart failure Tests Performed Below is a partial list of the tests performed during your hospitalization. You may have had other tests and procedures not included in this list. Please discuss all test results with your provider. Basic Metabolic Panel CBC CBC w/ Differential Comprehensive Metabolic Panel COVID-19 (Novel Coronavirus), Rapid PCR GLUCOSE POC HOLD BLUE TUBE HOLD GREEN TUBE HOLD LAVENDER TUBE INR Lactate Level Magnesium Level Phosphorus Level Potassium Level ProBNP PTT CXR W/ Frontal and Lat XR Toe 4th Left Foot Primary Care Provider Hansel GONZALEZ , Cherise Bolden Advance Directive Health Care Proxy on File Yes - Health Care Proxy Yes - MOLST Discharge Vitals Temperature: 97.8 DegF Height: 168 cm Pulse Rate: 60 bpm Weight: 119.1 kg Respiratory Rate: 20 br/min Body Mass Index:??42.3 kg/m2??Critical Respiratory Rate: 20 br/min Body surface area: 2.36 Systolic Blood Pressure: 136 mm Hg ?? Diastolic Blood Pressure: 67 mm Hg ?? Oxygen Saturation: 96 % ?? Studies Pending All tests and labs ordered during this hospital stay have been completed unless listed below. Please discuss all pending results with your provider listed above in these instructions. ?? Blood Culture Blood Culture #2 CBC What to do next Instructions From Your Doctor Rafa,? Below are a few instructions to follow post discharge ?? 1. ??You will need to follow-up with vascular surgery in 4 weeks. ??If you do not hear from their office then below is the information to contact them ?? [facility] [address], [address] [place] [address] Get Directions [phone] ?? 2. ??Please continue the use of Betadine??until this appointment Discharge Orders Activity:??Ambulate with assistance 3 times a day unless otherwise specified Code Status:?? Full Resuscitation Condition:??Good Prognosis:??Good Scheduled Follow-Up Appointments 2022 2:00 PM EDT ?? Where: [facility] Status: Pending 2022 2:00 PM EDT ?? Where: [facility] [address] [place] [id number]- Status: Pending Monday 10:30 AM EDT ?? With: Burton Chapman DO Where: [facility] [place] [address]- Status: Pending You Need to Schedule the Following Appointments Follow Up with??Glenys GONZALEZ, Heath Okeefe When:??Within 1 month Why: No studies Discharge Medications VIDHYA ADAM :1950 Visit Date:12/12/2022 Medications: Please continue your medications until treatment is completed or stopped by your provider. Medications not listed below should be discontinued. Discuss any questions related to medications with your provider. What How Much When Instructions Next Dose New Povidone Iodine Topical (Betadine 10% solution) See instructions Topically Daily ?? Pickup at [facility] 3 tomorrow 12/18 Unchanged Albuterol (albuterol 0.083% inhalation solution) 3 Milliliter Nebulized inhalation Every 6 hours as needed for Wheezing/Shortness of Breath ICD J45.909 ?? as needed every 6 hours for wheezing/ ??shortness of breath ?? today 12/17 Unchanged Albuterol (albuterol CFC free 90 mcg/ inh inhalation aerosol) 1 puff(s) Inhalation 4 times a day as needed for as needed for wheezing as needed for shortness of breath/ wheezing use with spacer chamber Please give spacer chamber to patient ?? today 12/17 Unchanged apixaban (Eliquis 5 mg oral tablet) 1 tab(s) Oral Twice a day tonight 12/17 Unchanged Aspirin (Aspirin Low Dose 81 mg oral delayed release tablet) 1 tab(s) Oral Daily tomorrow 12/18 Unchanged Azithromycin (azithromycin 250 mg oral tablet) 1 pack/packet Oral Daily tomorrow 12/18 Unchanged Clotrimazole Topical (clotrimazole 1% topical cream) 1 shaneka Topically Twice a day tonight 12/17 Unchanged Docusate (docusate sodium 100 mg/ 25 mL oral syrup) 15 Milliliter Oral Every 4 hours as needed for for constipation today 12/17 Unchanged dulaglutide (Trulicity Pen 0.75 mg/ 0.5 mL subcutaneous solution) 0.5 Milliliter Subcutaneous Injection Every week take per your usual schedule Unchanged Durable Medical Equipment ([employer] Mask fitting and ivap teaching) See instructions Mask Fitting and Ivap teaching for patient. Dx ERICKA G47.33 ?? use as directed Unchanged Ergocalciferol (Vitamin D2 50,000 intl units (1.25 mg) oral capsule) 1 capsule Oral Every 7 days take per your usual schedule Unchanged fluticasone-vilanterol (Breo Ellipta 200 mcg-25 mcg/ inh inhalation powder) 1 puff(s) Inhalation Daily tomorrow 12/18 Unchanged Furosemide (Lasix 80 mg oral tablet) 1 tab(s) Oral Daily Duration: 30 Days tomorrow 12/18 Unchanged Gabapentin (gabapentin 300 mg oral capsule) 1 capsule Oral Twice a day ??take on days that you are at the day program([facility] 12/19) Unchanged Gabapentin (gabapentin 300 mg oral capsule) TAKE 1 CAPSULE BY MOUTH THREE TIMES A DAY ?? today 12/17 Unchanged Guaifenesin/ Dextromethorphan (dextromethorphan-guaifenesin 10 mg-100 mg/ 10 mL oral liquid) 10 Milliliter Oral Every 4 hours as needed for as needed for cough not to exceed 6 doses/ day ?? today 12/17 Unchanged Insulin Glargine (Lantus Inj) See instructions 70 Units Subcutaneous Injection dailyt in morning ?? take this dose??if your glucose is elevated per your md instructions(next dose tonight 12/17) Unchanged Insulin Glargine (Lantus Solostar Pen 100 units/ mL subcutaneous solution) INJECT 68 UNITS UNDER THE SKIN DAILY ?? take this dose if your sugar is NOT elevated per your MD instructions(next dose tonight 12/17 Unchanged Insulin Lispro (Humalog Kwik Pen 100 units/ mL subcutaneous injection) See instructions As directed per sliding scale. 100-150 - 3units 151-200 - 5 units 201-250- 7 units 251-300- 9 units 301-350- 11 units > 350 - 13 units and call doctor ?? today 12/17 Unchanged Lisinopril (lisinopril 10 mg oral tablet) 1 tab(s) Oral Daily tomorrow 12/18 Unchanged Metformin (metFORMIN 850 mg oral tablet) 1 tab(s) Oral Daily in the morning tomorrow 12/18 Unchanged Methenamine (methenamine hippurate 1 gm oral tablet) 1 tab(s) Oral Twice a day Duration: 5 Days 12/17 Unchanged Metoprolol (Metoprolol Tartrate 50 mg oral tablet) 1 tab(s) Oral Twice a day tonight 12/17 Unchanged Montelukast (Singulair 10 mg oral tablet) 1 tab(s) Oral Daily in PM tonight 12/17 Unchanged Ocular Lubricant (ocular lubricant - solution) 2 Drops Left eye Twice a day as needed for Other Dryness. ?? today 12/17 Unchanged Oxybutynin (oxybutynin 5 mg/ 24 hours oral tablet, extended release) TAKE 1 TABLET BY MOUTH EVERY DAY AT BEDTIME ?? tonight 12/17 Unchanged PredniSONE (predniSONE 10 mg oral tablet) See instructions 2 tabs daily for 3 days, then 1 tab daily for 3 days, then stop ?? tomorrow 12/18 Unchanged Simvastatin (simvastatin 40 mg oral tablet) 1 tab(s) Oral Daily at Bedtime tonight 12/17 Unchanged Sodium Chloride (Hyper-Praveen 3.5% inhalation solution) See instructions Use twice daily as needed for cough/ secretions via nebulizer. Should be preceded by albuterol via nebulizer. j45.909 ?? today 12/17 Pharmacy Information [facility]: [address] [place], [place] [id number] [phone] ?? What How Much When Comments Stop Taking Miscellaneous Rx (CEFPODOXIME 100 MG TABLET) TAKE 1 TABLET BY MOUTH EVERY 12 HOURS FOR 7 DAYS ?? Stop Taking Nitrofurantoin 100 Milligram Oral Twice a day Duration: 5 Days Stop Taking Nitrofurantoin (nitrofurantoin macrocrystals-monohydrate 100 mg oral capsule) 1 capsule Oral Twice a day Duration: 7 Days Test Results Below is a partial list of the most recent Laboratory test results done prior to this discharge. You may have had other tests and procedures not included in this list. Please discuss all test resultswith your provider. Est Creatinine Clearance - 121.43 mL/min (12/17/2022) Basic Metabolic Panel (12/17/2022) ???Sodium - 133 mmol/L???Potassium - 3.9 mmol/L???Chloride - 94 mmol/L???Bicarbonate Level - 28 mmol/L???Anion Gap - 11???Glucose Level - 173 mg/dL???BUN - 13 mg/dL???Creatinine-Blood - 0.4 mg/dL???Estimated GFR Creatinine - 104 ML/MIN/1.73 M2???Calcium - 8.9 mg/dL CBC (12/17/2022) ???WBC - 7.9 k/mm3???RBC - 5.11 m/mm3???Hgb - 13.5 Gm/dL???Hct - 43.9 %???MCV - 85.9 femtoliters???MCH - 26.4 pg???MCHC - 30.8 g/dL???Platelet Count - 169 k/mm3???RDW-SD - 51.4 femtoliters???MPV - 11.1 femtoliters???Nucleated RBC (Automated) - 0.0 #/100 WBC'S???Abs. NRBC - 0.0 k/mm3 CBC w/ Differential (12/12/2022) ???WBC - 5.7 k/mm3???RBC - 5.24 m/mm3???Hgb - 14.3 Gm/dL???Hct - 44.6 %???MCV - 85.1 femtoliters???MCH - 27.3 pg???MCHC - 32.1 g/dL???Platelet Count - 183 k/mm3???RDW-SD - 51.8 femtoliters???MPV - 11.2 femtoliters???Nucleated RBC (Automated) - 0.0 #/100 WBC'S???Abs. NRBC - 0.0 k/mm3???Abs. Neut - 4.2 k/mm3???Abs. Lymph - 0.9 k/mm3???Abs. [place] - 0.4 k/mm3???Abs. Eo - 0.2 k/mm3???Abs. Baso - 0.0 k/mm3???Neut % - 73.9 %???Lymph % - 15.1 %???[place] % - 6.9 %???Eos % - 3.3 %???Baso % - 0.4 %???Imm Gran - 0.4 %???Abs. Imm Gran - 0.0 k/mm3 Comprehensive Metabolic Panel (12/12/2022) ???Sodium - 136 mmol/L???Potassium - HEMOLYZED???Chloride - 92 mmol/L???Bicarbonate Level - 32 mmol/L???Anion Gap - 12???Glucose Level - 329 mg/dL???BUN - 14 mg/dL???Creatinine-Blood - 0.5 mg/dL???Estimated GFR Creatinine - 103 ML/MIN/1.73 M2???Calcium - 9.1 mg/dL???Protein, Total - 6.8 Gm/dL???[place] min - 4.0 Gm/dL???AG Ratio - 1.4???Alkaline Phosphatase - 118 units/L???AST (SGOT) - HEMOLYZED???ALT (SGPT) - 19 units/L???Bilirubin, Total - 0.5 mg/dL COVID-19 (Novel Coronavirus), Rapid PCR (12/12/2022) ???COVID-19 by RT-PCR - NEGATIVE GLUCOSE POC (12/17/2022) ???Glucose, POC - 255 mg/dL HOLD BLUE TUBE (12/12/2022) ???Hold Blue Top - SPECIMEN DISCARDED AFTER 4 HOURS. HOLD GREEN TUBE (12/12/2022) ???Hold Green Top - SPECIMEN DISCARDED AFTER 1 WEEK HOLD LAVENDER TUBE (12/15/2022) ???Hold Lavender Top - SPECIMEN DISCARDED AFTER 24 HOURS. INR (12/12/2022) ???INR - 1.1???Protime (PT) - 11.6 seconds Lactate Level (12/12/2022) ???Lactate - 1.3 mmol/L Magnesium Level (12/17/2022) ???Magnesium - 1.9 mg/dL Phosphorus Level (12/17/2022) ???Phosphorus - 3.8 mg/dL Potassium Level (12/12/2022) ???Potassium - 4.2 mmol/L ProBNP (12/12/2022) ???Nt-Probnp - 217 pg/mL PTT (12/13/2022) ???APTT - 41.9 seconds Allergies (NKA means No Known Allergies) Silvadene??(skin [...] Educational Leaflet Providered with your Discharge Instructions. Discharge Instructions for Heart Failure?? Gangrene?? Valuables and Belongings I fully understand and agree that [facility] accepts no responsibility for all my personal [...] patient Date for Pt to Sign Valuables/Belongings: 12/12/22 22:24:00 ?? Other Discharge Information ?? Wound Assessment?? Wound Assessment?? Wound Location I: Second toe, left Wound Type I: Other: gangrene Wound I, Present on Admission: Yes Wound Location II: Foot, left Wound Type II: Other Wound Type - Outpatient Wound II, Length: 0.3 cm Wound II, Width: 0.3 cm Wound II, Present on Admission: Yes ? Case Management Discharge Plan?? Discharge Plan?? Discharge Agency Information?? Discharge Level of Care at Discharge: Homehealth/VNA Name of Agency #1: [facility] Discharge Transportation Arranged: [facility] [phone] Agency Word Processor Operator #1: intake Mode of Transportation Arranged: Ambulance Service Categories #1: Physical Therapy, Penitentiary Discharge Arranged Transport Date/Time: 12/17/22 12:00:00 Service Comments #1: Patient is active with [facility]. VNA will resume services upon discharge if you dont hear from them please call them directly. [facility]charge [facility] [phone] ?? Discharge VNA/Hospice/Home Care: [facility] [phone] ? Pulmonary Rehab Status?? Pulmonary Rehab Discharge Status?? Respiratory Rate: 20 br/min Respiratory Rate: 20 br/min ? Common Emergency Awareness Tips IS [...] are strongly encouraged to quit. Please call [facility] DIN Forums™ Network Link at [phone] or [phone] ([phone]) or log in to [email or web address] for referrals to smoking cessation programs. ?? 725 Suicide & Crisis Lifeline is available 30/01 if you or someone you know needs to find a reason to keep living. By calling 910 you'll be connected to a skilled, trained counselor at a crisis center in your area. INPATIENT DISCHARGE INSTRUCTIONS SIGNATURE PAGE KIAJUSTINOAN Location:[facility] Registration Date and Time:12/12/2022 11:16 EDT Primary Care Physician: Cherise Hamm MD, Attending Physician: Amadeo GONZALEZ, [facility], I VIDHYA ADAM, have received the above patient education materials/instructions and have verbalized understanding. If ambulance or transport services are being used I further acknowledge being given a choice of service. ?? If you need to contact me, please call me at this number: . Patient/Film Cutter Name: Patient/Film Cutter Signature: Relationship to Patient: Witness Name/Signature: Date: * Dayday Phillips RN: PERFORM Event Display: Patient Education Leaflets Authored Date: [id number] Discharge Instructions for Heart Failure ?? 20344 Discharge Instructions for Heart Failure The heart is a muscle that pumps oxygen-rich blood to all parts of the body. When you have heart failure, the heart is not able to pump as well as it should. Blood and fluid may back up into the lungs. Some parts of the body don???t get enough oxygen-rich blood to work normally. These problems leadto the symptoms of heart failure. Heart failure can occur because of an injury to the heart or from natural processes.??You can control symptoms of heart failure with some lifestyle changes and by following your doctor's advice. Activity Ask your healthcare provider about an exercise program. Simple activities such as walking or gardening can help. Exercising most days of the week can make you feel better. Don't be discouraged if your progress is slow at first. Rest as needed. Stop activity if you get symptoms such as chest pain, lightheadedness, or shortness of breath. Find activities that you enjoy. Examples might be brisk walking, dancing, swimming, and gardening. These will help you stay active and strengthen your heart. Ask your healthcare provider about cardiac rehab. This is a program that helps you to exercise safely. ?? Diet Follow a heart healthy diet. And make sure to limit the salt (sodium) in your diet. Salt causes your body to hold water. This makes your heart work harder because there is more fluid for the heart topump. Limit your salt as directed by your healthcare provider by doing the following: ??? Limit canned, dried, packaged, and fast foods. ??? Don't add salt to your food. ??? Season foods with herbs instead of salt. ??? Watch how much liquids you drink. Drinking too much can make heart failure worse. Talk with your healthcare provider about how much you should drink each day. ??? Limit the amount of alcohol you drink. It may harm your heart. Women should have no more than 1 drink a day. Men should have no more than 2 a day. ??? Ask that your meals have no added salt when you eat out. ??? Talk with your healthcare provider before using salt substitutes. They often have potassium in them. Thismay not be good for your health. This will depend on how well your kidneys are working and what medicines you???re taking. Some people need extra potassium. Others don???t. ?? Tobacco It's important to quit if you smoke. Smoking increases your chances of having a heart attack by harming the blood vessels that provide oxygen to your heart. This makes heart failure worse. Quitting smoking is the number one thing you can do to improve your health. Enroll in a stop-smoking program to improve your chances of success. Talk with your healthcare provider??about medicines or nicotine replacement therapy. Also ask your healthcare provider about smoking cessation support groups. ?? Medicine Take your medicines exactly as prescribed. Learn the names and purpose of each of your medicines. Keep an accurate medicine list and current dosages with you at all times. Don't skip doses. If you miss a dose of your medicine, take it as soon as you remember. If you miss a dose and??it's almost time for your next dose, just wait and take your next dose at the normal time. Don't take a double dose. If you are unsure, call your doctor's office. Make sure not to mix up your medicines or forget what you've taken the same day. Refill your prescriptions before you run out of medicine. Talk with your healthcare provider if you have trouble with the cost of your medicines. ?? Weight monitoring Weigh yourself every day. A sudden weight gain can mean your heart failure is getting worse. Weigh yourself at the same time of day and in the same kind of clothes. Ideally, weigh yourself first thing in the morning after you empty your bladder, but before you eat breakfast. Your healthcare provider will show you how to track your weight. They will also tell you when you should call if you have asudden, unexpected increase in your weight. In general, your healthcare provider may ask you to report if your weight goes up by more than 2 pounds in 1 day,?? 5 pounds in 1 week, or whatever weight gain you were told by your doctor. This is asign that you are retaining more fluid than you should be. Clues to weight gain include checking your ankles for swelling, or noticing you are short of breath when you lie down. ?? Follow-up care Have a follow-up appointment as instructed. Depending on the type and severity of heart failure youhave, you may need follow-within 7 days from hospital discharge. Keep appointments for checkups andlab tests that are needed to check your medicines and condition. Recognize that your health and even survival depend on you following your provider's advice. ?? Symptoms Heart failure can cause a variety of symptoms. They include: ??? Shortness of breath ??? Trouble breathing at night, especially when you lie down ??? Swelling in the legs and feet or in the belly (abdomen) ??? Becoming easily tired ??? Irregular or rapid heartbeat ??? Weakness or lightheadedness ??? Swelling of the neck veins It's important to know what to do if symptoms get worse or if you develop signs of worsening heart failure. Keep track of how you feel each day. Report any changes to your healthcare provider. ?? When to call your healthcare provider Call your healthcare provider right away if you have any of these signs of worsening heart failure:??? Sudden weight gain. This means more than 2 pounds in 1 day or 5??pounds in 1 week, or whatever weight gain you were told to report by your doctor. ??? Trouble breathing not related to being active ??? New or increased swelling of your legs or ankles ??? Swelling or pain in your abdomen ??? Breathing trouble at night. This means waking up short of breath or needing more pillows to breathe. ???Frequent coughing that doesn't go away ??? Feeling much more tired than usual ?? Call 911 Call 911 right away if you have: ??? Severe shortness of breath, such that you can't catch your breath even while??resting ??? Severe chest pain that does not resolve with rest or nitroglycerin ??? [place], foamy mucus with cough and shortness of breath ??? An ongoing rapid or irregular heartbeat ??? Passing out or fainting ??? Stroke symptoms such as sudden numbness or weakness on one side of your face, arm, or leg or sudden confusion, trouble speaking or vision changes ?? Last Reviewed Date: 2021 ?? [id number] [employer]. All rights reserved. This information is not intended as a substitute for professional medical care. Always follow your healthcare professional's instructions. ?? * Dayday Phillips RN: PERFORM Event Display: Patient Education Leaflets Authored Date: [id number] Gangrene ?? 151 Gangrene What is gangrene? Gangrene is a dangerous and potentially deadly health problem. It happens when the blood flow to anarea of tissue is cut off. This causes the tissue to break down and . Gangrene often turns the affected skin a greenish-black color. The word??gangrene is not related to??the color green but to the condition itself. It comes from [place] and Latin words for a gnawing sore or decayed tissue.?? Gangrene comes in 2 forms, dry and wet: ??? Dry gangrene occurs when the blood flow to tissue is cut off. The area becomes dry, shrinks, and turns black.? Wet gangrene occurs if bacteria invade this tissue. This makes the area swell, drain fluid, and smell bad. ?? What causes gangrene? Gangrene happens when blood supply to certain tissues is stopped. This can happen due to: ??? An infection ??? An injury such as a burn, infected dog bite, or combat wound ??? Severe cases of frostbite ??? A chronic disease that harms the circulatory system such as diabetes, peripheral artery disease, or Raynaud disease. These diseases can lead to gangrene if they are severe and not under control. ?? Who is at risk for gangrene? You may be at higher risk for gangrene if you have: ??? A chronic disease such as diabetes, peripheral artery disease, or Raynaud disease ??? Skin infection ??? Injury ??? [place] ??? Dog bite ??? Frostbite ?? What are the symptoms of gangrene? Symptoms of gangrene depend on its location and cause. Dry gangrene often starts with a red line around the affected area. This area then turns dry and black. These are other symptoms of gangrene: ??? Coldness and numbness in the affected area ??? Pain in or beyond the affected area ??? Redness and swelling around a wound. This is often a sign of wet gangrene. ??? Sores that keep cropping up in the same place ??? Persistent, unexplained fever, with a temperature higher than 100.4??F (38??C) ??? A bad- smelling wound ??? Striking discoloration of the skin, with shades of greenish- black, blue, red, or bronze ??? Pus or discharge from a wound ??? Blisters and a crackling feeling under the skin ??? Muscle aches, weakness, diarrhea, and loss of appetite (sometimes) ??? Confusion, pain, fever, and low blood pressure, especially if the infected gangrene spreads inside your body ??? Shock The earlier gangrene is treated, the more successful the treatment is likely to be. So if you??haveany of the above symptoms, seek care right away. ?? How is gangrene diagnosed? If you have symptoms of gangrene, your healthcare provider will give you a physical exam. They willcheck for signs of tissue . They may also ask you about any chronic health problems you have that could be linked to the gangrene. Your healthcare provider may also want to do lab tests to check for gangrene. A higher than normal number of white blood cells can mean you have an infection. Your healthcare provider may take samples of tissue or fluid from the affected area and your blood to look at in the lab. If your healthcareprovider thinks you may have internal gangrene, they may order imaging tests or surgery to find out for sure. ?? How is gangrene treated? Treatment will depend on your symptoms, age, and general health. It will also depend on how severe the condition is. Treatment of gangrene will often consist of one or more of these steps: ??? Antibiotics. These medicines can be used to kill bacteria in the affected area.??They are used only to treat wet gangrene. ??? Surgery to remove the tissue. When tissue is limited to a specific part of the body, removing the tissue and leaving healthy surrounding tissue is called debridement. It can help keep the gangrene from spreading to healthy tissues nearby. In cases where the gangrene is advanced, widespread, and not able to be cured otherwise, a finger, toe, foot, or more may need to be amputated. ??? Maggot debridement. This is a nonsurgical alternative to traditional debridement. During this p rocedure, clean fly larvae are placed on the affected area. They eat away tissue and remove bacteria. This is a painless procedure. ??? Hyperbaric oxygen therapy. During this procedure, you are placed in a special pressurized chamber that gives oxygen at high pressures, forcing more oxygen into the affected area. This may speed up healing and help kill bacteria. This treatment works very well in people who develop gangrene from diabetic foot ulcers. ??? Vascular surgery. If your gangrene is caused by poor blood flow, your healthcare provider may recommend surgery to improve your circulation. People whose gangrene is a result of a blocked artery, for example, may have bypass surgery or an angioplasty to fix the problem. ?? What are possible complications of gangrene? Gangrene can spread quickly over a large area of the body. So the amount of tissue can sometimes be quite large. Treating these large areas may result in: ??? Large areas of scarring ??? The need for reconstructive surgery ??? Amputation Severe cases of gangrene may lead to infection that spreads throughout the body, organ failure, andeven . ?? What can I do to prevent gangrene? You can help prevent gangrene by carefully watching any wounds you have and getting care right awayif you see signs of infection. If you have certain conditions that can affect blood circulation, such as diabetes, follow your healthcare provider???s instructions on managing your condition. ?? When should I call my healthcare provider? Wet gangrene is often life-threatening. So get medical care right away. The outlook with wet gangrene depends on the location and size of the affected area, as well as any other health problems you might have. ?? Dry gangrene often may not worsen or cause complications. But it can progress to wet gangrene. You should see your healthcare provider for either type. ?? Caal points about gangrene ??? Gangrene is a dangerous and potentially deadly health problem. It happens when the blood flow to an area of tissue is cut off. ??? People with injuries, diabetes, peripheral artery disease, and Raynaud disease are at higher risk for gangrene. ??? Symptoms of gangrene include coldness, numbness, pain, redness, or swelling in the affected area. ??? Surgery of one type or another is often needed; this may include amputation of the affected part of the body. ??? Wet gangrene is a medical emergency because of the bacterial infection. ?? Next steps Tips to help you get the most from a visit to your healthcare provider: ??? Know the reason for your visit and what you want to happen. ??? Before your visit, write down questions you want answered. ??? Bring someone with you to help you ask questions and remember what your provider tells you. ??? At the visit, write down the name of a new diagnosis and any new medicines, treatments, or tests. Also write down any new instructions your provider gives you. ??? Know why a new medicine or treatmentis prescribed and how it will help you. Also know what the side effects are. ??? Ask if your condition can be treated in other ways. ??? Know why a test or procedure is recommended and what the results could mean. ??? Know what to expect if you do not take the medicine or have the test or procedure. ??? If you have a follow-up appointment, write down the date, time, and purpose for that visit. ??? Know how you can contact your provider if you have questions. ?? Last Reviewed Date: 2020 ?? [id number] [employer]. All rights reserved. This information is not intended as a substitute for professional medical care. Always follow your healthcare professional's instructions. ?? * Event Display: Provider Clarification Note Please click on pdf link to open report Laboratory * TRAV Vu S: Violet Sanchez MD: VERIFY Event Display: Result: Authored Date: [id number] Examination: Chest performed on 12/12/2022. History: Slipped and fall. Shortness of breath. Findings: Frontal and lateral views of the chest are compared to a prior study dated 10/26/[address] dated 10/30/2022. The cardiac and mediastinal silhouettes are within normal limits. Enlargement of the pulmonary arteries is demonstrated. There are nodular densities bilaterally which were not seen previously and mayrepresent engorged vessels on end. Pulmonary vascular congestion has developed since the prior study. The osseous and soft tissue structures are unremarkable. Impression: Pulmonary vascular congestion. Nodular densities bilaterally which may be due to enlarged vessels on end as no pulmonary nodules are seen on the prior CT. WSN: [id number] Ordering Physician: Meeta Mendez Dictated By: Violet Ureña MD Dictated Date/Time: 12/12/22 9:32 am Reviewed By: Violet Ureña MD Signed By: Violet Ureña MD Signed Date/Time: 12/12/22 9:32 am Transcribed By: SOLOMON Transcribed Date/Time: 12/12/22 9:31 am Radiology * TRAV Vu S: Violet Sanchez MD: VERIFY Event Display: Result: Authored Date: [id number] Examination: Left foot and left fourth digit performed on 12/12/2022. History: Hx of Present Illness: Pt slipped in recliner and hit foot on the grounnd. Also c o UTI and needs antibiotics.; Reason: Other:; necrosis; Clinical Question(s): Osteomyelitis Findings: A frontal view of the left foot and oblique and lateral views of the fourth digit are compared to aprior study dated 11/19/2022. Diffuse osteopenia is present. Deformity of the second through fourth metatarsal heads is consistent with prior trauma. No acute fractures or dislocations are seen. The soft tissues are unremarkable. IMPRESSION: Stigmata of prior injury. There is no acute osseous abnormality. WSN: [id number] Ordering Physician: Meeta Mendez Dictated By: Violet Ureña MD Dictated Date/Time: 12/12/22 9:33 am Reviewed By: Violet Ureña MD Signed By: Violet Ureña MD Signed Date/Time: 12/12/22 9:33 am Transcribed By: SOLOMON Transcribed Date/Time: 12/12/22 9:32 am Patient Care team information Care Team Personnel Name: Alvaro Oliver RN Position: [facility] RN Member Role: Primary Care Nurse Name: Tk Iqbal RN Position: [facility] RN Member Role: Primary Care Nurse Name: Jovanny Stuart RN Position: [facility] RN Member Role: Primary Care Nurse Name: Delaney De Los Santos RN Position: [facility] RN Member Role: Primary Care Nurse Name: Michelle Ricketts Position: [facility] RN Member Role: Primary Care Nurse Name: Cande Kennedy RN Position: [facility] AMB Nurse Member Role: Primary Care Nurse Name: Batool Summers Position: [facility] RN Member Role: Primary Care Nurse Name: Lainey Walker LPN Position: [facility] RN Member Role: Primary Care Nurse Name: Yanira Trevizo Position: [facility] RN Member Role: Primary Care Nurse Name: Batool Cervantes RN Position: [facility] RN Member Role: Primary Care Nurse Name: Rafael Hicks RN Position: [facility] RN Member Role: Primary Care Nurse Name: Batsheva Bernard RN Position: [facility] RN Member Role: Primary Care Nurse Name: Fern Franklin LPN Position: [facility] RN Member Role: Primary Care Nurse Name: Vasyl Catherine RN Position: [facility] RN Member Role: Primary Care Nurse Name: Eve Masters RN Position: [facility] RN Member Role: Primary Care Nurse Name: Jenelle Jay RN Position: [facility] RN Member Role: Primary Care Nurse Name: Elizabeth Barrios RN Position: [facility] RN Member Role: Primary Care Nurse Name: Jignesh Stoner RN Position: [facility] RN Member Role: Primary Care Nurse Name: Kady Garcias RN Position: [facility] RN Member Role: Primary Care Nurse Name: Rosy Arriaza RN Position: [facility] RN Member Role: Primary Care Nurse Name: Cherise Hamm MD Position: [facility] Outreach Member Role: PCP Address: Address: [address] [place] [id number]- Name: Chyna Aguilar RN Position: [facility] RN Member Role: Primary Care Nurse Address: Address: [address] [place] [id number]- Name: John Guaman RN Position: [facility] RN Member Role: Primary Care Nurse Name: Rocio Andrade RN Position: [facility] RN Member Role: Primary Care Nurse Name: Ziyad SPRINGER Attending Position: [facility] ED Medicine MD Name: Any Pryor RN Position: [facility] ED RN W/OE and Tasks Member Role: Patient Care Provider Name: Irma Greco Position: [facility] ED OA Charge Member Role: ED Associate Name: Devan Hightower Position: [facility] ED TA [facility] Care Team Related Persons Name: STEPHANI ADAM Address: [address] [address] Name: NATHEN LLOYD
--- OUTSIDE RECORDS SUMMARY | 2024-01-06 09:16 | XMS_ITS | Continuity of Care Document ---
Author Organization [facility] Address [address] [place] [id number]- Care Team Providers Care Export Packer Name Role Phone Hansel GONZALEZ, Cherise Bolden Primary Care Physician [place] [facility] [place]/23 [facility] [address] [place] [address] [place] [id number] Attending Physician: Surya Schmitz Admitting Physician: AdmSurya montero Referring Physician: Admtr, Surya Referring Physician: Karina Garcia MD Allergies, Adverse Reactions, Alerts Substance Reaction [...] Recorded pneumococcal 13-valent vaccine 04/21/15 Recorded Medications albuterol 0.083% inhalation solution 3 mL [...] Team Personnel Name: Alvaro Oliver RN Position: [facility] RN Member Role: Primary Care Nurse Name: Tala Curiel LPN Position: [facility] RN Member Role: Primary Care Nurse Name: Tk Iqbal RN Position: [facility] RN Member Role: Primary Care Nurse Name: Jovanny Stuart RN Position: [facility] RN Member Role: Primary Care Nurse Name: Delaney De Los Santos RN Position: [facility] SN RN Member Role: Primary Care Nurse Name: Michelle Ricketts Position: [facility] RN Member Role: Primary Care Nurse Name: Jillian Mckeon RN Position: [facility] RN Member Role: Primary Care Nurse Name: Batool Summers Position: [facility] RN Member Role: Primary Care Nurse Name: Lainey Walker LPN Position: [facility] RN Member Role: Primary Care Nurse Name: Yanira Trevizo Position: [facility] RN Member Role: Primary Care Nurse Name: Batool Cervantes RN Position: [facility] RN Member Role: Primary Care Nurse Name: Batsheva Bernard RN Position: [facility] RN Member Role: Primary Care Nurse Name: Fern Franklin LPN Position: [facility] RN Member Role: Primary Care Nurse Name: Vasyl Catherine RN Position: [facility] RN Member Role: Primary Care Nurse Name: Eve Masters RN Position: [facility] RN Member Role: Primary Care Nurse Name: Elizabeth Barrios RN Position: [facility] RN Member Role: Primary Care Nurse Name: Jignesh Stoner RN Position: [facility] RN Member Role: Primary Care Nurse Name: Kady Garcias RN Position: [facility] RN Member Role: Primary Care Nurse Name: Rosy Arriaza RN Position: [facility] RN Member Role: Primary Care Nurse Name: Cherise Hamm MD Position: [facility] Outreach Member Role: PCP Address: Address: [address] [place] [address] Name: Chyna Aguilar RN Position: S RN Member Role: Primary Care Nurse Address: Address: [address] [place] [address] [place] [address]- [place] Name: John Guaman RN Position: S RN Member Role: Primary Care Nurse Name: Rocio Anrdade RN Position: S RN Member Role: Primary Care Nurse Care Team Related Persons Name: STEPHANI ADAM Address: [address] [place] [address] Name: NATHEN LLOYD
--- OUTSIDE RECORDS SUMMARY | 2024-01-06 09:16 | XMS_ITS | Continuity of Care Document ---
Author Organization [facility] ter Address [address] [place] [address]- Care Team Providers Care Furnace Process Supervisor Name Role Phone Hansel GONZALEZ, Cherise Bolden Primary Care Physician [place] [facility] [place] 12/[place]/[address] [address] Discharge Disposition: A-Transfer SNF Attending Physician: Tk Conde MD Admitting Physician: Ever Maher MD Referring Physician: Riddhi Mejia MD Allergies, Adverse Reactions, Alerts Substance Reaction [...] 0 Refills, Maintenance, 11/22/21 9:22:00 EDT, Tablet, [id number], Partial fill upon patient request if the prescription is for a schedule II opioid drug., 168, cm, 11/22/21 7:53:00 EDT, Height,... Start Date: 11/22/21 Status: Ordered Eliquis 5 mg oral tablet [...] 0 Refills, Maintenance, 11/18/21 8:23:00 EDT, Nasal Dolores, [id number], Partial fill upon patient request if the prescription is for a schedule II opioid drug., 1 sprays Nares, Both 2 time... Start Date: 11/18/21 Status: Ordered Flovent Diskus 100 mcg/inh inhalation powder 1 puffs, Inhalation, Daily, # 1 Unknown, 1 Refills, Maintenance, 11/23/21 9:59:00 EDT, [id number], 1 puffs Inhalation Daily, 168, cm, 11/22/21 11:46:00 EDT, Height, 162, kg, 11/14/21 7:17:00 EDT, Dry Weight Start Date: 11/23/21 Status: Ordered fluconazole 100 mg oral tablet 2 tablet = 200 mg, By Mouth, Every week, 0 Refills, Maintenance, 12/03/21 8:20:00 EDT, Tablet, Partial fill upon patient request if the prescription is for a schedule II opioid drug. Start Date: 12/03/21 Stop Date: 12/31/21 Status: Ordered gabapentin 300 mg oral capsule 300 mg, 1, capsule, By Mouth, 3 times a day, # 90 capsule, Refills 5, Maintenance, 06/30/21 10:32:00 EST, Partial fill upon patient request if the prescription is for a schedule II opioid drug. Start Date: 06/30/21 Status: Ordered gabapentin 300 mg oral capsule 300 mg, Capsule, By Mouth, 12/03/21 9:00:00 EDT Start Date: 12/03/21 Stop Date: 12/03/21 Status: Completed insulin lispro 100 u/ml subcutaneous [...] 12/19/21 8:53:00 EDT, 11/17/21 8:52:00 EDT, Ointment, [id number], Partial fill upon patient request ifthe prescription is for a schedule II opioid drug.... Start Date: 11/17/21 Stop Date: 12/19/21 Status: Ordered mupirocin 2% topical ointment 1 application, Topically, 3 times a day, # 15 Gm, 0 Refills, Maintenance, 06/30/21 10:32:00 EST, Ointment, Partial fill upon patient request if the prescription is for a schedule II opioid drug. Start Date: 06/30/21 Status: Ordered Nystatin Powder 1 applicator, Topically, 2 times a day, 0 Refills, Maintenance, Powder Start Date: 12/03/21 Stop Date: 12/31/21 Status: Ordered simvastatin 40 mg oral tablet [...] a day, # 1 each, 1 Refills, Maintenance, 11/23/21 9:58:00 EDT, [id number], 168, cm, 11/22/21 11:46:00 EDT, Height, 162, kg, 11/14/21 7:17:00 EDT, Dry Weight Start Date: 11/23/21 Status: Ordered Problem List Condition Effective Dates [...] Exam Date Time Procedure Performing Provider Status 11/23/21 10:41 PM Chest Portable Omi Zhou; Auth (Verified) Notes: (Chest Portable) Reason For Exam: Shortness of Breath RESULT: Chest Portable Chest Portable INDICATION: covid positive; Reason: Shortness of Breath COMPARISON: 11/15/2021, 06/29/2021, 09/12/2010 FINDINGS: LINES AND TUBES: None. LUNGS AND PLEURA: Right lung is clear. Mild left basilar opacity, decreased from 11/15/2021. Mild hilar vascular engorgement without keaton pulmonary edema. Apparent rounded density in left midlung was seen on x-ray from 2010, without correlate on CT, likely representing a vessel en face. No pleural effusion. No pneumothorax. HEART, MEDIASTINUM: Mild cardiomegaly, accentuated by AP technique. Unremarkable upper mediastinal contour. BONES AND SOFT TISSUES: No acute abnormality. 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 IMPRESSION: Decreased small left basilar opacity, which may represent residual/resolving bacterial pneumonia oratelectasis. No radiographic evidence of viral pneumonia. I have personally reviewed the images and I agree with this report. WSN: [id number] Ordering Physician: Riddhi Mejia Dictated By: Lucas Isbell DO Dictated Date/Time: 11/23/21 11:03 p Reviewed By: Camilo Castellanos MD Signed By: Camilo Castellanos MD Signed Date/Time: 11/23/21 11:08 pm Transcribed By: SOLOMON Transcribed Date/Time: 11/23/21 11:02 pm Vital Signs Most recent to oldest [Reference Range]: 1 2 3 Height 168 cm (12/02/21 11:21 PM) 168 cm (12/02/21 11:11 PM) 168 cm (12/02/21 7:33 PM) Weight 117 kg (11/26/21 4:36 PM) 84 kg (11/26/21 4:18 PM) 84 kg (11/26/21 2:03 PM) Oxygen Saturation [94-100 %] 100 % (12/03/21 8:00 AM) 100 % (12/03/21 7:00 AM) 100 % (12/02/21 11:21 PM) Pulse Rate [55-90 bpm] 60 bpm (12/03/21 8:00 AM) 60 bpm (12/03/21 7:00 AM) 66 bpm (12/02/21 11:21 PM) Body Mass Index [18.5-24.99] 41.45 *>HHI* (11/26/21 4:36 PM) Blood Pressure [90-138/55-84 mm Hg] 141/85mm Hg *H* (12/03/21 8:00 AM) 111/48mm Hg (12/03/21 7:00 AM) 113/58mm Hg (12/02/21 11:21 PM) Respiratory Rate [16-30 br/min] 18 br/min (12/03/21 8:01 AM) 16 br/min (12/02/21 11:21 PM) 16 br/min (12/02/21 11:11 PM) Temperature [96.8-100.4 DegF] 97.4 DegF (12/03/21 7:00 AM) 98.1 DegF (12/02/21 11:21 PM) 98.4 DegF (12/02/21 11:11 PM) Liters per Minute 2 L/min (12/03/21 7:00 AM) 2 L/min (12/02/21 11:11 PM) 2 L/min (12/02/21 7:33 PM) Mode of Delivery (Oxygen) Room air (12/03/21 8:00 AM) Nasal cannula (12/03/21 7:00 AM) Room air (12/02/21 11:21 PM) Blood pressure sites Arm, left (12/03/21 8:00 AM) Arm, left (12/03/21 7:00 AM) Arm, left (12/02/21 11:21 PM) Temperature Route Oral (12/03/21 7:00 AM) Oral (12/02/21 11:21 PM) Oral (12/02/21 11:11 PM) Dry Weight 117 kg (11/26/21 4:36 PM) 84 kg (11/26/21 4:18 PM) 84 kg (11/26/21 2:03 PM) Social History Social History Type Response Smoking Status Former smoker; Tobac co user in household: No entered on: 01/17/17 Sex
--- OUTSIDE RECORDS SUMMARY | 2024-01-06 09:16 | XMS_ITS | Continuity of Care Document ---
Author Organization [facility] ter Address [address] [place] [address]- Care Team Providers Care Horse Racing Analyst Name Role Phone Cherise Hamm MD Primary Care Physician [place] [facility] [facility] [place] 08/01/21 - 08/02/[address] [address]- Encounter Diagnosis Indwelling catheter replaced(Final) - 08/01/21 Discharge Disposition: A-D/C Home Attending Physician: Justa Raza DO Admitting Physician: Justa Raza DO Referring Physician: Not on Staff, Referring [...] opioid drug. Start Date: 06/30/21 Status: Ordered Diflucan 150 mg oral tablet 1 tablet = 150 mg, By Mouth, Once, # 1 tablet, 0 Refills, Soft Stop, 08/01/21 23:58:00 EST, Tablet,[id number], Partial fill upon patient request if the [...] Start Date: 06/30/21 Status: Ordered nystatin topical 112040 u/gm powder 1 application, Topically, 2 times [...] recent to oldest [Reference Range]: 1 2 Oxygen Saturation [94-100 %] 97 % (08/02/21 12:41 AM) 96 % (08/01/21 10:30 PM) Pulse Rate [55-90 bpm] 69 bpm (08/02/21 12:41 AM) 75 bpm (08/01/21 10:30 PM) Blood Pressure [90-138/55-84 mm Hg] 163/ 99mm Hg *H* (08/02/21 12:41 AM) 152/97mm Hg *H* (08/01/21 10:30 PM) Respiratory Rate [16-30 br/min] 18 br/mi n (08/02/21 12:41 AM) 18 br/min (08/01/21 10:30 PM) Temperature [96.8-100.4 DegF] 98 DegF (08/02/21 12:41 AM) 97.8 DegF (08/01/21 10:30 PM) Mode of Delivery (Oxygen) Room air (08/02/21 12:41 AM) Room air (08/01/21 10:30 PM) Blood pressure sites Arm, left (08/01/21 10:30 PM) Temperature Route Oral (08/02/21 12:41 AM) Oral (08/01/21 10:30 PM) Social History Social History Type Response Smoking Status Former smoker; Tobac co user in household: No entered on: 01/17/17 Sex
--- OUTSIDE RECORDS SUMMARY | 2024-01-06 09:16 | XMS_ITS | Continuity of Care Document ---
Author Organization [facility] ter Address [address] [place] [address]- Care Team Providers Care Suspect Artist Supervisor Name Role Phone Cherise Hamm MD Primary Care Physician Encounter [facility] Date(s): 03/30/22 - 03/31/[address] [address]- Encounter Diagnosis Physical deconditioning(Final) - 03/30/22 Discharge Disposition: A-Transfer SNF Attending Physician: Josse Conroy MD Admitting Physician: Josse Conroy MD Referring Physician: Not on Staff, Referring [...] Recorded pneumococcal 13-valent vaccine 04/21/15 Recorded Medications Aspirin Low Dose 81 mg oral delayed [...] mcg/inh inhalation powder 1 puffs, Inhalation, Daily, 0 Refills, Maintenance, 03/16/22 1:19:00 EDT, Powder, Partial fill uponpatient request if the prescription is for a [...] drug. Start Date: 03/29/22 Status: Ordered Lantus Solostar Pen 100 units/mL subcutaneous solution = 64 units, Subcutaneous Injection, Daily, 0 Refills, Maintenance, 03/29/22 19:43:00 EDT, Partial fill upon patient request if the prescription is for a schedule II opioid drug. Start Date: 03/29/22 Status: Ordered lisinopril 5 mg oral tablet 5 mg, 1, tablet, By Mouth, Daily, Refills 0, Maintenance, 03/16/22 1:19:00 EDT, Partial fill upon patient request if the prescription is for a schedule II opioid drug. Start Date: 03/16/22 Status: Ordered metFORMIN 850 mg oral tablet 1 tablet = 850 mg, By Mouth, 2 times a day, 0 Refills, Maintenance, 03/16/22 1:18:00 EDT, Tablet, Partial fill upon patient request if the prescription is for a schedule II opioid drug. Start Date: 03/16/22 Status: Ordered metoprolol 50 mg oral tablet 50 mg, Tablet, By Mouth, 03/30/22 23:52:00 EDT Start Date: 03/30/22 Stop Date: 03/31/22 Status: Completed Metoprolol Tartrate 50 mg oral tablet 1 tablet = 50 mg, By Mouth, 2 times a day, 0 Refills, Maintenance, 03/16/22 1:18:00 EDT, Tablet, Partial fill upon patient request if the prescription is for a schedule II opioid drug. 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 Obesity(Confirmed) Active Postmenopausal bleeding(Confirmed) Active Severe obesity(Confirmed) Active 1Problem added by Discern Expert Vital Signs Most recent to oldest [Reference Range]: 1 2 3 Oxygen Saturation [94-100 %] 97 % (03/31/22 9:36 AM) 97 % (03/31/22 6:31 AM) 98 % (03/31/22 5:40 AM) Pulse Rate [55-90 bpm] 72 bpm (03/31/22 9:36 AM) 57 bpm (03/31/22 6:31 AM) 70 bpm (03/31/22 5:40 AM) Blood Pressure [90-138/55-84 mm Hg] 156/74mm Hg *H* (03/31/22 9:36 AM) 145/65mm Hg *H* (03/31/22 6:31 AM) 166/59mm Hg *H* (03/31/22 1:28 AM) Respiratory Rate [16-30 br/min] 18 br/min (03/31/22 9:36 AM) 16 br/min (03/31/22 6:31 AM) 20 br/min (03/31/22 5:40 AM) Temperature [96.8-100.4 DegF] 98.1 DegF (03/31/22 1:28 AM) 98 DegF (03/30/22 10:48 PM) 97.8 DegF (03/30/22 10:45 PM) Liters per Minute 2 L/min (03/31/22 6:31 AM) 2 L/min (03/31/22 5:40 AM) Mode of Delivery (Oxygen) Room air (03/31/22 9:36 AM) Nasal cannula (03/31/22 6:31 AM) Nasal cannula (03/31/22 5:40 AM) Blood pressure sites Arm, right (03/31/22 9:36 AM) Arm, right (03/31/22 6:31 AM) Temperature Route Oral (03/31/22 1:28 AM) Oral (03/30/22 10:48 PM) Oral (03/30/22 10:45 PM) Social History Social History Type Response Smoking Status Former smoker; Tobac co user in household: No entered on: 01/17/17 Sex Care Team Personnel Name: Cherise Hamm MD Address: [address] [place] [address]
--- OUTSIDE RECORDS SUMMARY | 2024-01-06 09:16 | XMS_ITS | Continuity of Care Document ---
Author Organization [facility] ter Address [address] [place] [address]- Care Team Providers Care Shanker Out Name Role Phone Cherise Hamm MD Primary Care Physician Encounter [facility] Date(s): 06/19/22 - 06/19/[address] [address]- Discharge Disposition: A-D/C Home Attending Physician: Mariana Corea MD Admitting Physician: Mariana Corea MD Referring Physician: Not on Staff, Referring [...] Recorded pneumococcal 13-valent vaccine 04/21/15 Recorded Medications albuterol-ipratropium 3 mg-0.5 mg/3 ml inhalation solution BAND Nebulizer, 4 times a day, PRN Wheezing/Shortness of Breath, 0 Refills, Maintenance, 05/09/22 15:59:00 EDT, Inhalation Solution, Partial fill upon patient request if the prescription is for a schedule II opioid drug. Start Date: 05/09/22 Status: Ordered Aspirin Low Dose 81 mg oral delayed release tablet 1 tablet = 81 mg, By Mouth, Daily, # 30 tablet, 0 Refills, Maintenance, 03/16/22 1:18:00 EDT, EC Tablet, Partial fill upon patient request if the prescription is for a schedule II opioid drug. Start Date: 03/16/22 Status: Ordered Augmentin 500 mg-125 mg oral tablet 1 tablet, By Mouth, Every 12 hours, # 14 tablet, 0 Refills, Maintenance, 06/19/22 11:05:00 EST, Tablet, [id number], Partial fill upon patient request if the prescription is for a schedule II opioid drug., 168, cm, 05/09/22 2:15:00 EDT, Height,... Start Date: 06/19/22 Stop Date: 06/26/22 Status: Ordered Eliquis 5 mg oral tablet [...] 3 Oxygen Saturation [94-100 %] 99 % (06/19/22 11:02 AM) 100 % (06/19/22 7:34 AM) 100 % (06/19/22 6:41 AM) Pulse Rate [55-90 bpm] 65 bpm (06/19/22 11:02 AM) 66 bpm (06/19/22 7:34 AM) 66 bpm (06/19/22 6:41 AM) Blood Pressure [90-138/55-84 mm Hg] 131/65mm Hg (06/19/22 11:02 AM) 119/75mm Hg (06/19/22 7:34 AM) 122/57mm Hg (06/19/22 6:41 AM) Respiratory Rate [16-30 br/min] 20 br/min (06/19/22 11:02 AM) 20 br/min (06/19/22 7:34 AM) 20 br/min (06/19/22 6:41 AM) Temperature [96.8-100.4 DegF] 98.2 DegF (06/19/22 7:34 AM) 97.9 DegF (06/19/22 4:43 AM) 97.9 DegF (06/19/22 2:32 AM) Liters per Minute 3 L/min (06/19/22 11:02 AM) 3 L/min (06/19/22 7:34 AM) 3 L/min (06/19/22 6:41 AM) Mode of Delivery (Oxygen) Nasal cannula (06/19/22 11:02 AM) Nasal cannula (06/19/22 7:34 AM) Nasal cannula (06/19/22 6:41 AM) Blood pressure sites Arm, left (06/19/22 11:02 AM) Arm, left (06/19/22 7:34 AM) Arm, left (06/19/22 6:41 AM) Temperature Route Oral (06/19/22 7:34 AM) Oral (06/19/22 4:43 AM) Oral (06/19/22 2:32 AM) Social History Social History Type Response Smoking Status Former smoker; Tobac co user in household: No entered on: 01/17/17 Sex Patient Care team information Care Team Personnel Name: Vernon Estrella RN Position: [facility] RN Member Role: Primary Care Nurse Name: Tk Iqbal RN Position: [facility] RN Supv Member Role: Primary Care Nurse Name: Delaney De Los Santos RN Position: [facility] RN Member Role: Primary Care Nurse Name: Cande Kennedy RN Position: [facility] AMB Nurse Member Role: Primary Care Nurse Name: Batool Summers Position: [facility] RN Member Role: Primary Care Nurse Name: Abril Ye RN Position: [facility] RN Member Role: Primary Care Nurse Name: Stephani Wellington RN Position: [facility] RN Member Role: Primary Care Nurse Name: Yanira Trevizo Position: [facility] RN Member Role: Primary Care Nurse Name: Vasyl Catherine RN Position: [facility] RN Member Role: Primary Care Nurse Name: Jenelle Jay RN Position: [facility] RN Member Role: Primary Care Nurse Name: Elizaebth Barrios RN Position: [facility] RN Member Role: Primary Care Nurse Name: Jignesh Stoner RN Position: [facility] RN Member Role: Primary Care Nurse Name: Cherise Hamm MD Position: [facility] Outreach Member Role: PCP Address: Address: [address] [place] [id number]- Name: Chyna Aguilar RN Position: [facility] RN Member Role: Primary Care Nurse Address: Address: [address] [place] [id number]- Name: John Guaman RN Position: [facility] RN Member Role: Primary Care Nurse Name: Toña Villegas RN Position: [facility] ED RN W/OE and Tasks Member Role: Patient Care Provider Name: Yazmin Breen Position: [facility] ED TA [facility] Member Role: Patient Care Provider Name: aMriana Corea MD Position: [facility] Resident Member Role: Admitting Physician Address: Address: [address] [place] [id number]- [place] Name: Geetha Garza RN Position: [facility] ED RN W/OE and Tasks Member Role: Patient Care Provider Name: Uma Echols MD Position: [facility] Resident Member Role: ED Resident Address: Address: [address] [place] [address]- Care Team Related Persons Name: STEPHANI ADAM Address: home [address] [place] [id number] Name: GEETHA ECHOLS Address: [place] [address]
--- OUTSIDE RECORDS SUMMARY | 2024-01-06 09:16 | XMS_ITS | Continuity of Care Document ---
Author Organization [facility] ter Address [address] [place] [address]- Care Team Providers Care Lock Up Worker Name Role Phone Hansel GONZALEZ, Cherise Bolden Primary Care Physician [phone] Encounter [facility] Date(s): 04/30/22 - 05/09/[address] [address] Discharge Disposition: A-D/C Home Attending Physician: Epi Yancey MD, Solomon Admitting Physician: Manan Blevins MD Referring Physician: Not on Staff, Referring [...] oral capsule 300 mg, Capsule, By Mouth, 05/09/22 9:00:00 EDT Start Date: 05/09/22 Stop Date: 05/09/22 Status: Completed Humalog Kwik Pen 100 units/mL subcutaneous injection Subcutaneous Injection, 3 times a day before meals, As directed per sliding scale. 0-8 units per patient., 0 Refills, Maintenance, 03/29/22 19:44:00 EDT, Partial fill upon patient request if the prescription is for a schedule II opioid drug. Start Date: 03/29/22 Status: Ordered Lantus Inj 0.55 mL = 55 units, Subcutaneous Injection, Daily at bedtime, 0 Refills, Maintenance, 05/09/22 15:58:00 EDT, Injection, [...] IIopioid drug. Start Date: 05/09/22 Status: Ordered lisinopril 5 mg oral tablet 10 mg, Tablet, By Mouth, 05/09/22 9:00:00 EDT Start Date: 05/09/22 Stop Date: 05/09/22 Status: Completed Lopressor 50 mg oral tablet 50 mg, Tablet, By Mouth, 05/09/22 9:00:00 EDT Start Date: 05/09/22 Stop Date: 05/09/22 Status: Completed metFORMIN 850 mg oral tablet [...] Afib Confirmed Active Cataract Confirmed Active Chronic obstructive lung disease Confirmed [...] Results Orders for Microbiology Reports Name Date Urine Culture (URINE CULTURE) 04/30/22 Microbiology Reports TEST:Urine Culture STATUS:Auth (Verified) BODY SITE: SOURCE:URINE COLLECTED DATE/TIME:04/30/22 10:14 PM Urine Culture SPECIMEN DESCRIPTION : URINE STRAIGHT CATH. SPECIAL REQUESTS : NONE CULTURE : Mixed bacterial carlito, characteristic of urogenital contamination. Please consult laboratory ([id number]) within 24 hours of receipt of result if more definitive studies may be clinically indicated. REPORT STATUS : FINAL 05/02/2022 Radiology Reports * Exam Date Time Procedure Performing Provider Status 04/30/22 10:35 PM Chest Portable Delaney Douglass; Au th (Verified) Notes: (Chest Portable) Reason For Exam: Shortness of Breath RESULT: Chest Portable Chest Portable Hx of Present Illness: Shortness of Breath; Reason: Shortness of Breath; Clinical Question(s): CHF COMPARISON: Multiple priors, most recent 01/04/2022. FINDINGS: LINES AND TUBES: Monitoring leads project over the chest. LUNGS AND PLEURA: Increasing diffuse interstitial markings and vascular congestion, consistent with developing pulmonary edema. Bilateral small pleural effusion suspected. Developing subpleural fluid in the minor fissure. No pneumothorax. HEART, MEDIASTINUM AND KOLTON: Heart is normal in size. No acute change of the upper mediastinal contours. BONES AND SOFT TISSUES: No acute abnormality. Severe degenerative changes of the glenohumeral joints. IMPRESSION: Findings concerning for developing pulmonary edema. Small bilateral pleural effusions suspected. WSN: [id number] Ordering Physician: Festus Damon Dictated By: Donta Jerez MD Dictated Date/Time: 04/30/22 10:39 p Reviewed By: Donta Jerez MD Signed By: Donta Jerez MD Signed Date/Time: 04/30/22 10:39 pm Transcribed By: SOLOMON Transcribed Date/Time: 04/30/22 10:36 pm Vital Signs Most recent to oldest [Reference Range]: 1 2 3 Height 168 cm (05/09/22 2:15 AM) 168 cm (05/08/22 7:45 PM) 168 cm (05/08/22 2:01 PM) Weight 115.7 kg (05/09/22 2:15 AM) 121.6 kg (05/08/22 2:29 AM) 123.6 kg (05/07/22 2:00 AM) Oxygen Saturation [94-100 %] 95 % (05/09/22 4:00 PM) 93 % *L* (05/09/22 12:00 PM) 95 % (05/09/22 8:00 AM) Pulse Rate [55-90 bpm] 68 bpm (05/09/22 12:00 PM) 70 bpm (05/09/22 9:09 AM) 70 bpm (05/09/22 8:00 AM) Body Mass Index [18.5-24.99 kg/m2] 40.99 kg/m2 *>HHI* (05/09/22 2:15 AM) 43.08 kg/m2 *>HHI* (05/08/22 2:29 AM) 42.16 kg/m2 *>HHI* (05/06/22 5:06 AM) Blood Pressure [90-138/55-84 mm Hg] 136/70mm Hg (05/09/22 4:00 PM) 136/59mm Hg (05/09/22 12:00 PM) 170/70mm Hg *H* (05/09/22 9:10 AM) Respiratory Rate [16-30 br/min] 16 br/min (05/09/22 12:00 PM) 18 br/min (05/09/22 10:09 AM) 18 br/min (05/09/22 9:09 AM) Temperature [96.8-100.4 DegF] 97.6 DegF (05/09/22 12:00 PM) 97.6 DegF (05/09/22 8:00 AM) 97.9 DegF (05/09/22 2:15 AM) Liters per Minute 4 L/min (05/08/22 7:46 AM) 3 L/min (05/07/22 2:00 AM) 3 L/min (05/06/22 2:00 PM) Mode of Delivery (Oxygen) Room air (05/09/22 12:00 PM) Room air (05/09/22 8:00 AM) Room air (05/09/22 2:15 AM) Blood pressure sites Arm, right (05/09/22 12:00 PM) Arm, right (05/09/22 8:00 AM) Arm, right (05/09/22 2:15 AM) Temperature Route Oral (05/09/22 12:00 PM) Oral (05/09/22 8:00 AM) Oral (05/09/22 2:15 AM) Dry Weight 128.1 kg (05/01/22 6:52 AM) Weight Obtained Via Bed scale (05/09/22 2:15 AM) Bed scale (05/08/22 2:29 AM) Bed scale (05/06/22 5:06 AM) Social History Social History Type Response Smoking Status Former smoker; Tobac co user in household: No entered on: 01/17/17 Sex Portable XR Chest Views * BHSPowerscribe , CIS S: TRANSCRIBE Donta Jerez MD: VERIFY Event Display: Result: Authored Date: Chest Portable Hx of Present Illness: Shortness of Breath; Reason: Shortness of Breath; Clinical Question(s): CHF COMPARISON: Multiple priors, most recent 01/04/2022. FINDINGS: LINES AND TUBES: Monitoring leads project over the chest. LUNGS AND PLEURA: Increasing diffuse interstitial markings and vascular congestion, consistent with developing pulmonary edema. Bilateral small pleural effusion suspected. Developing subpleural fluid in the minor fissure. No pneumothorax. HEART, MEDIASTINUM AND KOLTON: Heart is normal in size. No acute change of the upper mediastinal contours. BONES AND SOFT TISSUES: No acute abnormality. Severe degenerative changes of the glenohumeral joints. IMPRESSION: Findings concerning for developing pulmonary edema. Small bilateral pleural effusions suspected. WSN: [id number] Ordering Physician: Festus Damon Dictated By: Donta Jerez MD Dictated Date/Time: 04/30/22 10:39 p Reviewed By: Donta Jerez MD Signed By: Donta Jerez MD Signed Date/Time: 04/30/22 10:39 pm Transcribed By: SOLOMON Transcribed Date/Time: 04/30/22 10:36 pm Patient Care team information Personnel Name: Cherise Hamm MD Address: Address: [address] [place] [id number]
--- OUTSIDE RECORDS SUMMARY | 2024-01-06 09:16 | XMS_ITS | Continuity of Care Document ---
Author Organization [facility] ter Address [address] [place] [address]- Care Team Providers Care Inside Sales Engineer Name Role Phone Hansel GONZALEZ, Cherise Bolden Primary Care Physician Encounter [facility] Date(s): 11/10/21 - 11/10/[address] [address]- Discharge Disposition: A-D/C Home Attending Physician: Bren Carter MD Admitting Physician: Bren Carter MD Referring Physician: Not on Staff, Referring MD Allergies, Adverse Reactions, Alerts Substance Reaction Severity Status Silvadene skin alicea unsure Active Medications acetaminophen 325 mg oral tablet 650 mg, 2, tablet, By Mouth, Every 4 hours, PRN, # 30 tablet, Refills 0, Tot. Refills 0, Maintenance, as needed for pain, 01/06/19 19:36:31 EDT, Print Requisition Start Date: 01/06/19 Status: Ordered albuterol 0.083% inhalation solution 3 mL = 2.5 mg, Inhalation, Every 6 hours, PRN for wheezing, # 180 mL, 0 Refills, Maintenance, 11/10/21 18:25:00 EDT, Solution, [facility], Partial fill upon patient request if the prescription is for a schedule II opioid drug., 167,... Start Date: 11/10/21 Stop Date: 12/10/21 Status: Ordered Aspirin Low Dose 81 mg [...] 0 Refills, Soft Stop, 08/01/21 23:58:00 EST, Tablet,[facility]/pharmacy #[id number], Partial fill [...] Start Date: 06/30/21 Status: Ordered nystatin topical 332617 u/gm powder 1 application, Topically, 2 times [...] recent to oldest [Reference Range]: 1 2 Height 167 cm (11/10/21 6:00 PM) Weight 162 kg (11/10/21 6:00 PM) Oxygen Saturation [94-100 %] 95 % (11/10/21 8:50 PM) 98 % (11/10/21 6:00 PM) Pulse Rate [55-90 bpm] 83 bpm (11/10/21 8:50 PM) 74 bpm (11/10/21 6:00 PM) Blood Pressure [90-138/55-84 mm Hg] 136/ 55mm Hg (11/10/21 8:50 PM) 150/100mm Hg *H* (11/10/21 6:00 PM) Respiratory Rate [16-30 br/min] 20 br/mi n (11/10/21 8:50 PM) 20 br/min (11/10/21 6:00 PM) Temperature [96.8-100.4 DegF] 98.3 DegF (11/10/21 8:50 PM) 98.1 DegF (11/10/21 6:00 PM) Mode of Delivery (Oxygen) Room air (11/10/21 8:50 PM) Room air (11/10/21 6:00 PM) Temperature Route Oral (11/10/21 8:50 PM) Oral (11/10/21 6:00 PM) Dry Weight 162 kg (11/10/21 6:00 PM) Social History Social History Type Response Smoking Status Former smoker; Tobac co user in household: No entered on: 01/17/17 Sex
--- OUTSIDE RECORDS SUMMARY | 2024-01-06 09:16 | XMS_ITS | Continuity of Care Document ---
Author Organization [facility] ter Address [address] [place] [address]- Care Team Providers Care Social Welfare Clerk Name Role Phone Hansel GONZALEZ, Cherise Bolden Primary Care Physician [phone] [facility]/03[place] - 01/05/[address] [address] Discharge Disposition: A-Transfer SNF Attending Physician: Rafael Galvin MD Admitting Physician: Roderick Blevins MD Referring Physician: Not on Staff, [...] 0 Refills, Maintenance, 11/18/21 8:23:00 EDT, Nasal [place], [id number], Partial fill upon patient request [...] Dry Weight Start Date: 11/23/21 Status: Ordered gabapentin 300 mg oral capsule 300 mg, 1, capsule, By Mouth, 3 times a day, # 90 capsule, Refills 5, Maintenance, 06/30/21 10:32:00 EST, Partial fill upon patient request if the prescription is for a schedule II opioid drug. Start Date: 06/30/21 Status: Ordered gabapentin 300 mg oral capsule 300 mg, Capsule, By Mouth, 01/05/22 9:00:00 EDT Start Date: 01/05/22 Stop Date: 01/05/22 Status: Completed insulin lispro 100 u/ml subcutaneous injection 14-32 units, Subcutaneous Injection, 3 times a day before meals, 0 Refills, Maintenance, 07/02/21 10:40:00 EST, Injection, Partial fill upon patient request if the prescription is for a schedule II opioid drug. Start Date: 07/02/21 Status: Ordered Lantus Inj 0.4 mL = 40 units, Subcutaneous Injection, Daily before lunch, 0 Refills, Maintenance, 01/05/22 9:27:00 EDT, Injection, Partial fill upon patient request if the prescription is for a schedule II opioid drug. Start Date: 01/05/22 Status: Ordered Lasix 40 mg oral tablet [...] Exam Date Time Procedure Performing Provider Status 01/04/22 8:17 AM Chest Portable Isabel Petty; Isabel (V erified) Notes: (Chest Portable) Reason For Exam: Shortness of Breath RESULT: Chest Portable Chest Portable AP upright at 8:08 AM Reason: Shortness of Breath; Clinical Question(s): Atelectasis / Atelectasis COMPARISON: 11/23/2021 FINDINGS: LINES AND TUBES: None. LUNGS AND PLEURA: The central pulmonary vasculature is prominent and indistinct. No pleural effusion. No pneumothorax. HEART, MEDIASTINUM AND KOLTON: Heart is normal in size. Aorta is mildly calcified. BONES AND SOFT TISSUES: No acute abnormality. Severe degenerative change of the left glenohumeral joint. There are multilevel degenerative changes of the spine. IMPRESSION: Pulmonary vascular congestion without overt pulmonary edema. WSN: [id number] Ordering Physician: Bj Laughlin Dictated By: Rafael Hamilton MD Dictated Date/Time: 01/04/22 11:21 a Reviewed By: Rafael Hamilton MD Signed By: Rafael Hamilton MD Signed Date/Time: 01/04/22 11:21 am Transcribed By: SOLOMON Transcribed Date/Time: 01/04/22 11:19 am Vital Signs Most recent to oldest [Reference Range]: 1 2 3 Height 167.6 cm (01/05/22 3:46 PM) 167.6 cm (01/05/22 2:23 PM) 167.6 cm (01/05/22 9:01 AM) Weight 120.5 kg (01/05/22 3:30 AM) 118.1 kg (01/04/22 6:02 AM) Oxygen Saturation [94-100 %] 92 % *L* (01/05/22 3:46 PM) 93 % *L* (01/05/22 2:23 PM) 93 % *L* (01/05/22 9:01 AM) Pulse Rate [55-90 bpm] 72 bpm (01/05/22 3:46 PM) 72 bpm (01/05/22 2:23 PM) 71 bpm (01/05/22 9:01 AM) Body Mass Index [18.5-24.99] 42.04 *>HHI* (01/04/22 6:02 AM) Blood Pressure [90-138/55-84 mm Hg] 121/76mm Hg (01/05/22 3:46 PM) 151/76mm Hg *H* (01/05/22 2:23 PM) 142/48mm Hg *H* (01/05/22 9:01 AM) Respiratory Rate [16-30 br/min] 20 br/min (01/05/22 3:46 PM) 18 br/min (01/05/22 2:23 PM) 18 br/min (01/05/22 9:36 AM) Temperature [96.8-100.4 DegF] 98.7 DegF (01/05/22 3:46 PM) 98.0 DegF (01/05/22 2:23 PM) 97.3 DegF (01/05/22 9:01 AM) Liters per Minute 2 L/min (01/04/22 6:02 AM) 2 L/min (01/04/22 3:06 AM) 2 L/min (01/04/22 12:27 AM) Mode of Delivery (Oxygen) Room air (01/05/22 3:46 PM) Room air (01/05/22 2:23 PM) Room air (01/05/22 9:01 AM) Blood pressure sites Arm, left (01/05/22 3:46 PM) Arm, left (01/05/22 2:23 PM) Arm, left (01/05/22 9:01 AM) Temperature Route Oral (01/05/22 3:46 PM) Temporal (01/05/22 2:23 PM) Temporal (01/05/22 9:01 AM) Dry Weight 118.1 kg (01/04/22 6:02 AM) Weight Obtained Via Bed scale (01/05/22 3:30 AM) Social History Social History Type Response Smoking Status Former smoker; Tobac co user in household: No entered on: 01/17/17 Sex
--- OUTSIDE RECORDS SUMMARY | 2024-01-06 09:16 | XMS_ITS | Continuity of Care Document ---
Author Organization [facility] ter Address [address] [place] [address]- Care Team Providers Care Lumber Kiln Operator Name Role Phone Hansel GONZALEZ, Cherise Bolden Primary Care Physician [phone] Encounter [facility] Date(s): 03/15/22 - 03/16/[address] [address]- Encounter Diagnosis Complicated UTI (urinary tract infection)(Final) - 03/15/22 Discharge Disposition: A-D/C Home Attending Physician: Vidya GONZALEZ, Gaudencio Okeefe Admitting Physician: Derek GONZALEZ, Jodie Amaya Referring Physician: Not on Staff, Referring MD [...] 100 mcg/inh inhalation powder 1 puffs, Inhalation, 2 times a day, # 120 each, 0 Refills, Maintenance, 03/16/22 1:19:00 EDT, Powder, Partial fill upon patient request if the prescription is for a schedule II opioid drug. Start Date: 03/16/22 Status: Ordered gabapentin 300 mg oral capsule 300 mg, 1, capsule, By Mouth, 3 times a day, # 270 capsule, Refills 0, Maintenance, 03/16/22 1:19:00 EDT, Partial fill upon patient request if the prescription is for a schedule II opioid drug. Start Date: 03/16/22 Status: Ordered Lantus Solostar Pen 100 units/mL subcutaneous solution See Instructions, 60 units daily pm, 0 Refills, Maintenance, 03/16/22 1:19:00 EDT, Solution, Partial fill upon patient request if the prescription is for a schedule II opioid drug. Start Date: 03/16/22 Status: Ordered lisinopril 5 mg oral tablet 5 mg, 1, tablet, By Mouth, Daily, # 30 tablet, Refills 0, Maintenance, 03/16/22 1:19:00 EDT, Partial fill upon patient request if the prescription is for a schedule II opioid drug. Start Date: 03/16/22 Status: Ordered metFORMIN 850 mg oral tablet 1 tablet = 850 mg, By Mouth, Daily in AM, # 30 tablet, 0 Refills, Maintenance, 03/16/22 1:18:00 EDT, Tablet, Partial fill upon patient request if the prescription is for a schedule II opioid drug. Start Date: 03/16/22 Status: Ordered Metoprolol Tartrate 50 mg oral tablet 1 tablet = 50 mg, By Mouth, 2 times a day, # 180 tablet, 0 Refills, Maintenance, 03/16/22 1:18:00 EDT, Tablet, Partial fill upon patient request if the prescription is for a schedule II opioid drug. Start Date: 03/16/22 Status: Ordered simvastatin 40 mg oral tablet 40 mg, 1, tablet, By Mouth, Daily at bedtime, # 30 tablet, Refills 0, Maintenance, 03/16/22 1:18:00EDT, Partial fill upon patient request if the prescription is for a schedule II opioid drug. Start Date: 03/16/22 Status: Ordered Problem List Condition Effective Dates [...] 3 Oxygen Saturation [94-100 %] 96 % (03/16/22 2:02 PM) 95 % (03/16/22 12:00 PM) 100 % (03/16/22 10:03 AM) Pulse Rate [55-90 bpm] 61 bpm (03/16/22 2:02 PM) 60 bpm (03/16/22 12:00 PM) 65 bpm (03/16/22 10:03 AM) Blood Pressure [90-138/55-84 mm Hg] 107/54mm Hg (03/16/22 2:02 PM) 115/51mm Hg (03/16/22 12:00 PM) 123/50mm Hg (03/16/22 10:03 AM) Respiratory Rate [16-30 br/min] 16 br/min (03/16/22 2:02 PM) 15 br/min *L* (03/16/22 12:00 PM) 14 br/min *L* (03/16/22 10:03 AM) Temperature [96.8-100.4 DegF] 97.5 DegF (03/15/22 11:27 PM) 98.0 DegF (03/15/22 5:51 PM) Liters per Minute 2 L/min (03/16/22 10:03 AM) 2 L/min (03/16/22 7:35 AM) 2 L/min (03/16/22 5:59 AM) Mode of Delivery (Oxygen) Room air (03/16/22 2:02 PM) Room air (03/16/22 12:00 PM) Nasal cannula (03/16/22 10:03 AM) Blood pressure sites Arm, left (03/16/22 2:02 PM) Arm, left (03/16/22 12:00 PM) Arm, left (03/16/22 10:03 AM) Temperature Route Oral (03/15/22 11:27 PM) Oral (03/15/22 5:51 PM) Social History Social History Type Response Smoking Status Former smoker; Tobac co user in household: No entered on: 01/17/17 Sex Care Team Personnel Name: Cherise Hamm MD Address: [address] [place] [address]
--- OUTSIDE RECORDS SUMMARY | 2024-01-06 09:17 | XMS_ITS | Continuity of Care Document ---
Author Organization [facility] Address [address] [place] [address]- Care Team Providers Care Replanting Machine Crewman Name Role Phone Cherise Hamm MD Primary Care Physician [place] [facility] [place] 12/06[place] 04/05/23 [facility] [address] [place] [id number] Attending Physician: Rufus Ambrocio MD Admitting Physician: Rufus Ambrocio MD Referring Physician: Cherise Hamm MD Allergies, Adverse Reactions, Alerts Substance Reaction [...] 2 Refills, Maintenance, 01/08/23 12:40:00 EDT, Solution, [facility]/pharmacy #[id number], ICD 10 - J45.901, 16... Start [...] 3 Refills, Maintenance, 11/01/22 11:09:00 EDT, Powder, [facility]/pharmacy #[id number], Partial fill upon patient request [...] 0 Refills, Maintenance, 08/01/22 11:21:00 EST, Solution, [facility]/pharmacy #[id number], Partial fill upon patient request [...] 11/01/22 11:29:00 EDT, Route to Pharmacy Electronically, [facility]/pharmacy #[id number], Partial fill upon patient request [...] Team Personnel Name: Alvaro Oliver RN Position: [facility] RN Member Role: Primary Care Nurse Name: Tala Curiel LPN Position: [facility] RN Member Role: Primary Care Nurse Name: Tk Iqbal RN Position: [facility] RN Member Role: Primary Care Nurse Name: Jovanny Stuart RN Position: [facility] RN Member Role: Primary Care Nurse Name: Delaney De Los Santos RN Position: [facility] SN RN Member Role: Primary Care Nurse Name: Michelle Ricketts Position: [facility] RN Member Role: Primary Care Nurse Name: Jillian Mckeon RN Position: [facility] RN Member Role: Primary Care Nurse Name: Batool Summers Position: [facility] RN Member Role: Primary Care Nurse Name: Lainey Walker LPN Position: [facility] RN Member Role: Primary Care Nurse Name: Yanira Trevizo Position: [facility] RN Member Role: Primary Care Nurse Name: Batool Cervantes RN Position: [facility] RN Member Role: Primary Care Nurse Name: Batsheva Bernard RN Position: [facility] RN Member Role: Primary Care Nurse Name: Fern Franklin LPN Position: [facility] RN Member Role: Primary Care Nurse Name: Vasyl Catherine RN Position: [facility] RN Member Role: Primary Care Nurse Name: Eve Mastres RN Position: [facility] RN Member Role: Primary Care Nurse Name: Elizabeth Barrios RN Position: [facility] RN Member Role: Primary Care Nurse Name: Jignesh Stoner RN Position: [facility] RN Member Role: Primary Care Nurse Name: Kady Garcias RN Position: [facility] RN Member Role: Primary Care Nurse Name: Rosy Arriaza RN Position: [facility] RN Member Role: Primary Care Nurse Name: Cherise Hamm MD Position: [facility] Outreach Member Role: PCP Address: Address: [address] [place] [address] Name: Chyna Aguilar RN Position: [facility] RN Member Role: Primary Care Nurse Address: Address: [address] [place] [address]- Name: John Guaman RN Position: S RN Member Role: Primary Care Nurse Name: Rocio Andrade RN Position: [facility] RN Member Role: Primary Care Nurse Care Team Related Persons Name: STEPHANI ADAM Address: [address] [address] Name: NATHEN LLOYD
--- OUTSIDE RECORDS SUMMARY | 2024-01-06 09:17 | XMS_ITS | Continuity of Care Document ---
Author Organization [facility] ter Address [address] [place] [id number]- Care Team Providers Care Disc Pad Grinding Machine Feeder Name Role Phone Cherise Hamm MD Primary Care Physician Encounter [facility] Date(s): 12/12/23 - 12/13/[address] [address]- Discharge Disposition: A-D/C Home Attending Physician: Jessica Diego MD Admitting Physician: Jessica Diego MD Referring Physician: Not on Staff, Referring [...] 2 Refills, Maintenance, 01/08/23 12:40:00 EDT, Solution, [facility]/pharmacy #[id number], ICD 10 - J45.901, [...] 3 Refills, Maintenance, 11/01/22 11:09:00 EDT, Powder, [facility]/pharmacy #[id number], Partial fill upon patient request if the prescription is for a schedule II opioid drug., 1 puffs Inhalation Daily, 167.64, cm, 11/01/22 7... Start Date: 11/01/22 Status: Ordered cefpodoxime 200 mg oral tablet 1 tablet = 200 mg, By Mouth, Every 12 hours, for 14 days, # 28 tablet, 0 Refills, Acute 12/19/23 0:26:00 EDT, 12/05/23 0:26:00 EDT, Tablet, [facility]/pharmacy #[id number], Partial fill upon patient request if the prescription is for a schedule II opioid drug., 16... Start Date: 12/05/23 Stop Date: 12/19/23 Status: Ordered Eliquis 5 mg oral tablet [...] opioid drug. Start Date: 03/16/22 Status: Ordered nitrofurantoin macrocrystals-monohydrate 100 mg oral capsule 1 capsule = 100 mg, By Mouth, 2 times a day, for 5 days, # 10 capsule, 0 Refills, Acute 12/17/23 21:50:00 EDT, 12/12/23 21:50:00 EDT, Capsule, [facility]/pharmacy #[id number], Partial fill upon patient request ifthe prescription is for a schedule II opioid drug.,... Start Date: 12/12/23 Stop Date: 12/17/23 Status: Ordered ocular lubricant - solution 2 drops, Eye, Left, 2 times a day, PRN Other, Dryness., # 30 mL, 0 Refills, Maintenance, 08/01/22 11:21:00 EST, Solution, [facility]/pharmacy #[id number], Partial fill upon patient [...] 11/01/22 11:29:00 EDT, Route to Pharmacy Electronically, [facility]/pharmacy #[id number], Partial fill upon patient [...] Range]: 1 2 3 Height 168 cm (12/12/23 6:52 PM) 168 cm (12/12/23 6:49 PM) Oxygen Saturation [94-100 %] 94 % (12/13/23 12:14 AM) 94 % (12/12/23 6:52 PM) 94 % (12/12/23 6:49 PM) Pulse Rate [55-90 bpm] 71 bpm (12/13/23 12:14 AM) 69 bpm (12/12/23 6:52 PM) 86 bpm (12/12/23 6:49 PM) Blood Pressure [90-138/55-84 mm Hg] 130/85mm Hg (12/13/23 12:14 AM) 140/90mm Hg *H* (12/12/23 6:52 PM) 114/54mm Hg (12/12/23 6:49 PM) Respiratory Rate [16-30 br/min] 18 br/min (12/13/23 12:14 AM) 18 br/min (12/12/23 6:52 PM) 20 br/min (12/12/23 6:49 PM) Temperature [96.8-100.4 DegF] 98 DegF (12/12/23 6:52 PM) 97.8 DegF (12/12/23 6:49 PM) Liters per Minute 2 L/min (12/13/23 12:14 AM) 2 L/min (12/12/23 6:52 PM) 2 L/min (12/12/23 6:49 PM) Mode of Delivery (Oxygen) Nasal cannula (12/13/23 12:14 AM) Nasal cannula (12/12/23 6:52 PM) Nasal cannula (12/12/23 6:49 PM) Blood pressure sites Arm, left (12/12/23 6:49 PM) Temperature Route Oral (12/12/23 6:52 PM) Oral (12/12/23 6:49 PM) Dry Weight 123 kg (12/12/23 6:52 PM) 123 kg (12/12/23 6:49 PM) Social History Social History Type Response Smoking Status Former smoker; Tobac co user in household: No entered on: 01/17/17 Sex Note * Morenita Jimenez DO: PERFORM, SIGN, VERIFY Event Display: Patient Education Handout Authored Date: [id number] Patient Care team information Care Team Personnel Name: Tala Curiel LPN Position: [facility] RN Member Role: Primary Care Nurse Name: Tk Iqbal RN Position: [facility] SN RN Member Role: Primary Care Nurse Name: Jovanny Stuart RN Position: [facility] RN Member Role: Primary Care Nurse Name: Delaney De Los Santos RN Position: [facility] SN RN Member Role: Primary Care Nurse Name: Batool Sweet Position: S RN Member Role: Primary Care Nurse Name: Michelle Ricketts Position: S RN Member Role: Primary Care Nurse Name: Lainey Walker LPN Position: S RN Member Role: Primary Care Nurse Name: Yanira Trevizo Position: S RN Member Role: Primary Care Nurse Name: Batool Cervantes RN Position: S RN Member Role: Primary Care Nurse Name: Fern Franklin LPN Position: S RN Member Role: Primary Care Nurse Name: Vasyl Catherine RN Position: [facility] RN Member Role: Primary Care Nurse Name: Eve Masters RN Position: [facility] RN Member Role: Primary Care Nurse Name: Elizabeth Barrios RN Position: [facility] RN Member Role: Primary Care Nurse Name: Jignesh Stoner RN Position: [facility] RN Member Role: Primary Care Nurse Name: Rosy Arriaza RN Position: [facility] RN Member Role: Primary Care Nurse Name: Cherise Hamm MD Position: [facility] Outreach Member Role: PCP Address: Address: [address] [place] [id number] Name: John Guaman RN Position: [facility] RN Member Role: Primary Care Nurse Name: Rocio Andrade RN Position: [facility] RN Member Role: Primary Care Nurse Care Team Related Persons Name: STEPHANI ADAM Address: [address] [address] Name: NATHEN LLOYD
--- OUTSIDE RECORDS SUMMARY | 2024-01-06 09:17 | XMS_ITS | Continuity of Care Document ---
Author Organization [facility] ter Address [address] [place] [id number]- Care Team Providers Care Range Mounter Name Role Phone Cherise Hamm MD Primary Care Physician Encounter [facility] Date(s): 11/27/23 - 11/27/[address] [address]- Encounter Diagnosis Abnormal urine sediment(Final) - 11/27/23 Discharge Disposition: A-D/C Home Attending Physician: Lyn Higginbotham DO Admitting Physician: Lyn Higginbotham DO Referring Physician: Not on Staff, Referring [...] 2 Refills, Maintenance, 01/08/23 12:40:00 EDT, Solution, [facility]/pharmacy #[id number], ICD 10 - J45.901, 16... Start [...] 3 Refills, Maintenance, 11/01/22 11:09:00 EDT, Powder, [facility]/pharmacy #[id number], Partial fill upon patient request if [...] 0 Refills, Maintenance, 08/01/22 11:21:00 EST, Solution, [facility]/pharmacy #[id number], Partial fill upon patient request if [...] 11/01/22 11:29:00 EDT, Route to Pharmacy Electronically, [facility]/pharmacy #[id number], Partial fill upon patient request if [...] 1 2 3 Oxygen Saturation [94-100 %] 98 % (11/27/23 10:00 PM) 98 % (11/27/23 6:48 PM) 97 % (11/27/23 4:57 PM) Pulse Rate [55-90 bpm] 72 bpm (11/27/23 10:00 PM) 72 bpm (11/27/23 6:48 PM) 62 bpm (11/27/23 4:57 PM) Blood Pressure [90-138/55-84 mm Hg] 136/78mm Hg (11/27/23 10:00 PM) 135/80mm Hg (11/27/23 6:48 PM) 140/79mm Hg *H* (11/27/23 4:57 PM) Respiratory Rate [16-30 br/min] 18 br/min (11/27/23 10:00 PM) 21 br/min (11/27/23 6:48 PM) 19 br/min (11/27/23 4:57 PM) Temperature [96.8-100.4 DegF] 98.3 DegF (11/27/23 2:33 PM) 98.0 DegF (11/27/23 1:42 PM) Liters per Minute 3 L/min (11/27/23 10:00 PM) 3 L/min (11/27/23 6:48 PM) 3 L/min (11/27/23 4:57 PM) Mode of Delivery (Oxygen) Nasal cannula (11/27/23 10:00 PM) Nasal cannula (11/27/23 6:48 PM) Nasal cannula (11/27/23 4:57 PM) Blood pressure sites Arm, left (11/27/23 6:48 PM) Arm, left (11/27/23 4:57 PM) Arm, left (11/27/23 3:07 PM) Temperature Route Oral (11/27/23 2:33 PM) Oral (11/27/23 1:42 PM) Social History Social History Type Response Smoking Status Former smoker; Tobac co user in household: No entered on: 01/17/17 Sex Note * Lyn Higginbotham DO: PERFORM Event Display: Patient Education Leaflets Authored Date: [id number] Molina Catheter Care ?? [id number] Molina Catheter Care A Molina catheter is a rubber tube that is [...] from sliding out of the bladder. A Molina catheter is used when you are unable [...] fainting ?? Last Reviewed Date: 2021 ?? 3020-2248 [employer]. All rights reserved. This information is not intended as a substitute for professional medical care. Always follow your healthcare professional's instructions. ?? Patient Care team information Care Team Personnel Name: Veena DOMTala Position: [facility] RN Member Role: Primary Care Nurse Name: Tk Iqbal RN Position: [facility] SN RN Member Role: Primary Care Nurse Name: Jovanny Stuart RN Position: [facility] RN Member Role: Primary Care Nurse Name: Delaney De Los Santos RN Position: [facility] SN RN Member Role: Primary Care Nurse Name: Batool Sweet Position: [facility] RN Member Role: Primary Care Nurse Name: Michelle Ricketts Position: [facility] RN Member Role: Primary Care Nurse Name: Lainey Walker LPN Position: [facility] RN Member Role: Primary Care Nurse Name: Yanira Trevizo Position: [facility] RN Member Role: Primary Care Nurse Name: Batool Cervantes RN Position: [facility] RN Member Role: Primary Care Nurse Name: Fern Franklin LPN Position: [facility] RN Member Role: Primary Care Nurse Name: Vasyl Catherine RN Position: [facility] RN Member Role: Primary Care Nurse Name: Eve Masters RN Position: [facility] RN Member Role: Primary Care Nurse Name: Eilzabeth Barrios RN Position: [facility] RN Member Role: Primary Care Nurse Name: Jignesh Stoner RN Position: [facility] RN Member Role: Primary Care Nurse Name: Rosy Arriaza RN Position: [facility] RN Member Role: Primary Care Nurse Name: Cherise Hamm MD Position: [facility] Outreach Member Role: PCP Address: Address: [address] [place] [id number] Name: John Guaman RN Position: [facility] RN Member Role: Primary Care Nurse Name: Rocio Andrade RN Position: [facility] RN Member Role: Primary Care Nurse Care Team Related Persons Name: STEPHANI ADAM Address: [place] [address] [facility] [place] [address] Name: NATHEN LLOYD
--- OUTSIDE RECORDS SUMMARY | 2024-01-06 09:17 | XMS_ITS | Continuity of Care Document ---
Author Organization [facility] ter Address [address] [place] [address]- Care Team Providers Care Underground Drill Operator Name Role Phone Cherise Hamm MD Primary Care Physician Encounter [facility] Date(s): 03/22/23 - 03/22/[address] [id number] Discharge Disposition: A-D/C Home Attending Physician: Tarik Sellers MD Admitting Physician: Tarik Sellers MD Referring Physician: Tarik Sellers MD Allergies, Adverse Reactions, Alerts Substance Reaction [...] 2 Refills, Maintenance, 01/08/23 12:40:00 EDT, Solution, [facility]/pharmacy #[id number], ICD 10 - J45.901, 16... Start [...] 3 Refills, Maintenance, 11/01/22 11:09:00 EDT, Powder, [facility]/pharmacy #[id number], Partial fill upon patient request if [...] 0 Refills, Maintenance, 08/01/22 11:21:00 EST, Solution, [facility]/pharmacy #[id number], Partial fill upon patient request if [...] 11/01/22 11:29:00 EDT, Route to Pharmacy Electronically, [facility]/pharmacy #[id number], Partial fill upon patient request if [...] 1 2 3 Oxygen Saturation [94-100 %] 92 % *L* (03/22/23 4:30 PM) 93 % *L* (03/22/23 4:15 PM) 100 % (03/22/23 4:09 PM) Pulse Rate [55-90 bpm] 60 bpm (03/22/23 1:51 PM) Blood Pressure [90-138/55-84 mm Hg] 139/90mm Hg *H* (03/22/23 4:30 PM) 172/93mm Hg *H* (03/22/23 4:15 PM) 189/95mm Hg *H* (03/22/23 4:09 PM) Respiratory Rate [16-30 br/min] 18 br/min (03/22/23 4:30 PM) 16 br/min (03/22/23 4:15 PM) 20 br/min (03/22/23 4:09 PM) Temperature [96.8-100.4 DegF] 97 DegF (03/22/23 3:45 PM) 98.1 DegF (03/22/23 3:00 PM) 97.1 DegF (03/22/23 1:51 PM) Liters per Minute 2 L/min (03/22/23 3:15 PM) 6 L/min (03/22/23 3:00 PM) 2 L/min (03/22/23 1:51 PM) Mode of Delivery (Oxygen) Room air (03/22/23 5:08 PM) Room air (03/22/23 4:30 PM) Room air (03/22/23 4:15 PM) Blood pressure sites Arm, left (03/22/23 3:00 PM) Arm, right (03/22/23 1:51 PM) Temperature Route Temporal (03/22/23 3:45 PM) Temporal (03/22/23 3:00 PM) Temporal (03/22/23 1:51 PM) Social History Social History Type Response Smoking Status Former smoker; Tobac co user in household: No entered on: 01/17/17 Sex Note * Jessie Yap RN: PERFORM Event Display: Discharge/Transfer Note Hospital Authored Date: [id number] Nursing Discharge Note Entered On: 03/22/2023 16:24 EDT Performed On: 03/22/2023 16:24 EDT by Jessie Yap RN Nursing Discharge Note 2 Discharge Time : 03/22/2023 17:08 EDT Discharge Level of Care at Discharge : Home/Mcfp/Foster Care Jessie Yap RN - 03/22/2023 17:14 EDT Patient Left Unit Via : Wheelchair Patient Accompanied Off Unit with : Responsible adult DC Instructions Provided & Signed by Pt : Yes Patient Understands D/C Instructions : Yes Verbalized Understanding of D/C Plan By : Patient, Caregiver Patient Instructions Discharge Signed : Yes Did Pt have Specialty Bed or Wound Vac : No Jessie Yap RN - 03/22/2023 16:24 EDT * Jessie Yap RN: PERFORM Event Display: Patient Education/Instruction Authored Date: [id number] Inpatient Adult Discharge Instructions [address] [address] Name: VIDHYA ADAM : 1950 Visit: 03/22/2023 12:24:00 Current Date: 03/22/2023 16:24 Account: [id number] Inpatient Adult Discharge Instructions We would like [...] and their families. Surveys are administered by [employer] ?? If further treatment with your primary care physician or another doctor is recommended, it is important for you to keep the appointment. Call your primary care physician or return to the Emergency Department immediately if your condition worsens, fails to improve, or new symptoms develop. If you need to find a doctor, you can call [facility] Link for a referral at [phone] or toll free at [phone] [email or web address] ([phone]) or log in to [email or web address].. ?? [facility], in keeping with [facility] guidance, no longer requires face masks for staff, patientsor visitors in most situations. Similiar to time spent indoors at other locations, there is the chance that you were exposed to repiratory viruses during your time with us (such as flu or COVID-19). If you develop symptoms concerning for a viral respiratory infection, please seek testing (and treatment if indicated) from your medical provider or home test kit. ?? You can view and manage your care through the patient portal or by using a health care shaneka of your choosing. [employer] is a website that allows you to securely view your medical information including your hospital discharge summary, office visit summaries, medications and follow-up visits. You can also request appointments, renew medications, and request access to your medical information using a health care shaneka of your choosing, or just ask a question. You can enroll at [email or web address] or register during your next office visit. You have been discharged from [facility], Patient Care Unit: [facility]. If you have any questions regarding these instructions after you leave, please call us and we will be happy to assist you. [facility] Your Care Team Attending Physician Tarik Sellers MD Discharging Providers Tarik Sellers MD Reason for Admission RETENTION OF URINE CYSTODS CS Tests Performed Below is a partial list of the tests performed during your hospitalization. You may have had other tests and procedures not included in this list. Please discuss all test results with your provider. Primary Care Provider Cherise Hamm MD Advance Directive Health Care Proxy on File Yes - Health Care Proxy Yes - MOLST Discharge Vitals Temperature: 97 DegF Pulse Rate: 60 bpm Respiratory Rate: 16 br/min Systolic Blood Pressure:??172 mm Hg??High Diastolic Blood Pressure:??93 mm Hg??High Oxygen Saturation:??93 %??Low Studies Pending All tests and labs ordered during this hospital stay have been completed unless listed below. Please discuss all pending results with your provider listed above in these instructions. ?? No incomplete studies found What to do next Instructions From Your Doctor Discharge Orders Instructions from your Care Team please see cystoscopy paperwork for details. Tylenol 650 mg given at 1547pm You Need to Schedule the Following Appointments Follow Up with??Tarik Sellers Why: Call for follow up and with any concerns Where: [address] [facility] [place] [address]- Business (1) Follow Up with??Cherise Hamm MD When:??In 0 days Where: [address] [place] [address]- Business (1) Discharge Medications VIDHYA ADAM :1950 Visit Date:03/22/2023 Medications: Please continue your medications until treatment is completed or stopped by your provider. Medications not listed below should be discontinued. Discuss any questions related to medications with your provider. What How Much When Instructions Next Dose Unchanged Albuterol (albuterol 0.083% inhalation solution) 3 Milliliter Nebulized inhalation Every 6 hours as needed for Wheezing/Shortness of Breath ICD J45.909 ?? as needed every 6 hours for wheezing/ ??shortness of breath ?? Unchanged Albuterol (albuterol CFC free 90 mcg/ inh inhalation aerosol) 1 puff(s) Inhalation 4 times a day as needed for as needed for wheezing as needed for shortness of breath/ wheezing use with spacer chamber Please give spacer chamber to patient ?? Unchanged apixaban (Eliquis 5 mg oral tablet) 1 tab(s) Oral Twice a day Unchanged Aspirin (Aspirin Low Dose 81 mg oral delayed release tablet) 1 tab(s) Oral Daily Unchanged dulaglutide (Trulicity Pen 0.75 mg/ 0.5 mL subcutaneous solution) 0.5 Milliliter Subcutaneous Injection Every week Unchanged Ergocalciferol (Vitamin D2 50,000 intl units (1.25 mg) oral capsule) 1 capsule Oral Every 7 days Unchanged fluticasone-vilanterol (Breo Ellipta 200 mcg-25 mcg/ inh inhalation powder) 1 puff(s) Inhalation Daily Unchanged Furosemide (Lasix 80 mg oral tablet) 1 tab(s) Oral Daily Duration: 30 Days Unchanged Gabapentin (gabapentin 300 mg oral capsule) 1 capsule Oral Twice a day Unchanged Insulin Glargine (Lantus Solostar Pen 100 units/ mL subcutaneous solution) INJECT 68 UNITS UNDER THE SKIN DAILY ?? Unchanged Insulin Lispro (Humalog Kwik Pen 100 units/ mL subcutaneous injection) See instructions As directed per sliding scale. 100-150 - 3units 151-200 - 5 units 201-250- 7 units 251-300- 9 units 301-350- 11 units > 350 - 13 units and call doctor ?? Unchanged Lisinopril (lisinopril 10 mg oral tablet) 1 tab(s) Oral Daily Unchanged Metformin (metFORMIN 850 mg oral tablet) 1 tab(s) Oral Daily in the morning Unchanged Methenamine (methenamine hippurate 1 gm oral tablet) 1 tab(s) Oral Twice a day Duration: 5 Days Unchanged Metoprolol (Metoprolol Tartrate 50 mg oral tablet) 1 tab(s) Oral Twice a day Unchanged Montelukast (Singulair 10 mg oral tablet) 1 tab(s) Oral Daily in PM Unchanged Ocular Lubricant (ocular lubricant - solution) 2 Drops Left eye Twice a day as needed for Other Dryness. ?? Unchanged Oxybutynin (oxybutynin 5 mg/ 24 hours oral tablet, extended release) TAKE 1 TABLET BY MOUTH EVERY DAY AT BEDTIME ?? Unchanged Simvastatin (simvastatin 40 mg oral tablet) 1 tab(s) Oral Daily at Bedtime Test Results Below is a partial list of the most recent Laboratory test results done prior to this discharge. You may have had other tests and procedures not included in this list. Please discuss all test resultswith your provider. Allergies (NKA means No Known Allergies) Silvadene??(skin [...] Educational Leaflet Providered with your Discharge Instructions. Surgery Medical Daystay Surgical Overnight Discharge Instructions?? Valuables and Belongings I fully understand and agree that [facility] accepts no responsibility for all my personal [...] to send valuables and belongings home. ?? No Valuables/Belongings: No valuables/belongings present Review of Valuable and Belonging List: With patient Disposition of Belongings: Sent home with patient/family Date for Pt to Sign Valuables/Belongings: 03/22/23 16:23:00 ?? Other Discharge Information ? Pulmonary Rehab Status?? Pulmonary Rehab Discharge Status?? Respiratory Rate: 16 br/min ? Common Emergency Awareness Tips IS [...] are strongly encouraged to quit. Please call [employer] Link at [phone] or [phone]) or log in to [email or web address] for referrals to smoking cessation programs. ?? 988 Suicide & Crisis Lifeline is available 30/01 if you or someone you know needs to find a reason to keep living. By calling 988 you'll be connected to a skilled, trained counselor at a crisis center in your area. INPATIENT DISCHARGE INSTRUCTIONS SIGNATURE PAGE VIDHYA ADAM Location:[facility] Registration Date and Time:03/22/2023 12:24 EDT Primary Care Physician: Hansel GONZALEZ , Cherise Bolden, Attending Physician: Marlo GONZALEZ, Tarik Pond, I KIA VIDHYA, have received the above patient education materials/instructions and have verbalized understanding. If ambulance or transport services are being used I further acknowledge being given a choice of service. ?? If you need to contact me, please call me at this number: . Patient/Feed Mill Operator Name: Patient/Feed Mill Operator Signature: Relationship to Patient: Witness Name/Signature: Date: * Jessie Yap RN: PERFORM, SIGN, VERIFY Event Display: Patient Education Handout Authored Date: * Jessie Yap RN: PERFORM Event Display: Patient Education Leaflets Authored Date: Surgery Medical Daystay Surgical Overnight Discharge Instructions ?? 295 Medical Daystay/Surgical Overnight Discharge Instructions ? Since your coordination and judgment may be altered by medication and/or anesthesia, a responsible adult must drive you home from the hospital. ? If you have received medication for pain or sedation while under our care, you should not drive, operate machinery, drink alcohol, or sign any legal documents for 24 hours.?? You should have someone with you at home tonight. ? Remain at home the day of discharge.?? You may be up and about unless otherwise instructed by your physician. ? You may resume your daily prescription medication schedule.?? Any depressant medication should be avoided for 24 hours unless otherwise instructed by your surgeon or anesthesiologist. ? Call your physician for a follow-up appointment.? If you experience unusual or severe pain not relied by your pain medication, excessive bleedingor drainage, persistent nausea and vomiting, excessive swelling or redness, foul odor from incisionsite or fever over 100.6F, you need to call your physician. ? A follow-up phone call by a nurse will be made the day after your procedure.?? If you have stayed with us over night, you will not be receiving a follow-up phone call. ? Nausea and vomiting are a common side effect of prescription pain medication.?? We recommend that pills are not taken on an empty stomach.?? While taking any prescription pain medication you should not drive or drink alcohol. ? Patient Care team information Care Team Personnel Name: Alvaro Oliver RN Position: [facility] RN Member Role: Primary Care Nurse Name: Tala Curiel LPN Position: [facility] RN Member Role: Primary Care Nurse Name: Tk Iqbal RN Position: [facility] RN Member Role: Primary Care Nurse Name: Jovanny Stuart RN Position: [facility] RN Member Role: Primary Care Nurse Name: Delaney De Los Santos RN Position: [facility] RN Member Role: Primary Care Nurse Name: Michelle Ricketts Position: [facility] RN Member Role: Primary Care Nurse Name: Jillian Mckeon RN Position: [facility] RN Member Role: Primary Care Nurse Name: Batool Summers Position: [facility] RN Member Role: Primary Care Nurse Name: Lainey Walker LPN Position: [facility] RN Member Role: Primary Care Nurse Name: Yanira Trevizo Position: [facility] RN Member Role: Primary Care Nurse Name: Batool Cervantes RN Position: [facility] RN Member Role: Primary Care Nurse Name: Batsheva Bernard RN Position: [facility] RN Member Role: Primary Care Nurse Name: Fern Franklin LPN Position: [facility] RN Member Role: Primary Care Nurse Name: Vasyl Catherine RN Position: [facility] RN Member Role: Primary Care Nurse Name: Eve Masters RN Position: [facility] RN Member Role: Primary Care Nurse Name: Elizabeth Barrios RN Position: [facility] RN Member Role: Primary Care Nurse Name: Jignesh Stoner RN Position: [facility] RN Member Role: Primary Care Nurse Name: Kady Garcias RN Position: [facility] RN Member Role: Primary Care Nurse Name: Rosy Arriaza RN Position: [facility] RN Member Role: Primary Care Nurse Name: Cherise Hamm MD Position: S Outreach Member Role: PCP Address: Address: [address] [place] [address]- Name: Chyna Aguilar RN Position: S RN Member Role: Primary Care Nurse Address: Address: [address] [place] [address]- Name: John Guaman RN Position: S RN Member Role: Primary Care Nurse Name: Rocio Andrade RN Position: S RN Member Role: Primary Care Nurse Care Team Related Persons Name: KIA STEPHANI Address: home [address] [place] [address] Name: NATHEN LLOYD
--- OUTSIDE RECORDS SUMMARY | 2024-01-06 09:17 | XMS_ITS | Continuity of Care Document ---
Author Organization [facility] Address [address] [place] [address]- Care Team Providers Care Credit Risk Manager Name Role Phone Cherise Hamm MD Primary Care Physician [phone] [place] [facility] [place] 02/04/23 [facility] [address] [place], [place] [address] Attending Physician: Cherise Hamm MD Admitting Physician: Cherise Hamm MD Referring Physician: Cherise Hamm MD Allergies, Adverse Reactions, Alerts Substance Reaction Severity Status Silvadene skin alicea unsure Active Immunizations Given and Recorded Vaccine Date Status Refusal Reason influenza virus vaccine, inactivated 07/31/22 Give n influenza virus vaccine, inactivated 04/09/21 Maldonado rded influenza virus vaccine, inactivated 09/06/19 [place]ado rded influenza virus vaccine, inactivated 03/26/18 [place] rded influenza virus vaccine, inactivated 05/17/17 Mal[place] rded influenza virus vaccine, inactivated 04/20/16 [place]ado [...] 2 Refills, Maintenance, 01/08/23 12:40:00 EDT, Solution, [facility]/pharmacy #[id number], ICD 10 - J45.901, 16... Start [...] 3 Refills, Maintenance, 11/01/22 11:09:00 EDT, Powder, [facility]/pharmacy #[id number], Partial fill upon patient request if the prescription is for a schedule II opioid drug., 1 puffs Inhalation Daily, 167.64, cm, 11/01/22 7... Start Date: 11/01/22 Status: Ordered docusate-senna 50 mg-187 mg oral tablet 2 tablet, By Mouth, Daily at bedtime, PRN Constipation, for 30 days, # 60 tablet, 0 Refills, Acute 02/12/23 11:53:00 EDT, 01/13/23 11:53:00 EDT, Tablet, [facility]/pharmacy #[id number], Partial fill upon patient request if [...] 0 Refills, Maintenance, 08/01/22 11:21:00 EST, Solution, [facility]/pharmacy #[id number], Partial fill upon patient request if [...] 11/01/22 11:29:00 EDT, Route to Pharmacy Electronically, [facility]/pharmacy #[id number], Partial fill upon patient request if [...] Team Personnel Name: Alvaro Oliver RN Position: [facility] RN Member Role: Primary Care Nurse Name: Tala Curiel LPN Position: [facility] RN Member Role: Primary Care Nurse Name: Tk Iqbal RN Position: [facility] RN Member Role: Primary Care Nurse Name: Jovanny Stuart RN Position: [facility] RN Member Role: Primary Care Nurse Name: Delaney De Los Santos RN Position: [facility] RN Member Role: Primary Care Nurse Name: Michelle Ricketts Position: [facility] RN Member Role: Primary Care Nurse Name: Cande Kennedy RN Position: [facility] KRISTIN Nurse Member Role: Primary Care Nurse Name: Batool Summers Position: [facility] RN Member Role: Primary Care Nurse Name: Lainey Walker LPN Position: [facility] RN Member Role: Primary Care Nurse Name: Yanira Trevizo Position: [facility] RN Member Role: Primary Care Nurse Name: Batool Cervantes RN Position: [facility] RN Member Role: Primary Care Nurse Name: Batsheva Bernard RN Position: [facility] RN Member Role: Primary Care Nurse Name: Fern Franklin LPN Position: [facility] RN Member Role: Primary Care Nurse Name: Vasyl Catherine RN Position: [facility] RN Member Role: Primary Care Nurse Name: Eve Masters RN Position: [facility] RN Member Role: Primary Care Nurse Name: Elizabeth Barrios RN Position: [facility] RN Member Role: Primary Care Nurse Name: Jignesh Stoner RN Position: S RN Member Role: Primary Care Nurse Name: Kady Garcias RN Position: S RN Member Role: Primary Care Nurse Name: Rosy Arriaza RN Position: S RN Member Role: Primary Care Nurse Name: Cherise Hamm MD Position: [facility] Outreach Member Role: PCP Address: Address: [address] [place] [address]- Name: Chyna Aguilar RN Position: [facility] RN Member Role: Primary Care Nurse Address: Address: [address] [place] [address]- Name: John Guaman RN Position: [facility] RN Member Role: Primary Care Nurse Name: Rocio Andrade RN Position: [facility] RN Member Role: Primary Care Nurse Care Team Related Persons Name: KIA STEPHANI Address: [address] [place] [address] Name: NATHEN LLOYD
--- OUTSIDE RECORDS SUMMARY | 2024-01-06 09:17 | XMS_ITS | Continuity of Care Document ---
Author Organization [facility] ter Address [address] [place] [address]- Care Team Providers Care Hall Worker Name Role Phone Cherise Hamm MD Primary Care Physician [place] [facility] [place] 11/15/21 - 12/15/[address] [address] Attending Physician: Not on Staff, Attending MD Admitting Physician: Not on Staff, Admitting MD Referring Physician: Not on Staff, Referring [...] 0 Refills, Maintenance, 11/18/21 8:23:00 EDT, Nasal [place], [facility]pharmacy [id number], Partial fill upon patient request [...] 12/19/21 8:53:00 EDT, 11/17/21 8:52:00 EDT, Ointment, [id number], Partial fill upon patient request ifthe [...] obesity(Confirmed) Active 1Problem added by Discern Expert Social History Social History Type Response Smoking Status Former smoker; Tobac co user in household: No entered on: 01/17/17 Sex
--- OUTSIDE RECORDS SUMMARY | 2024-01-06 09:17 | XMS_ITS | Continuity of Care Document ---
Author Organization [facility] ter Address [address] [place] [address]- Care Team Providers Care Social Media Strategist Name Role Phone Cherise Hamm MD Primary Care Physician [phone] [place] [facility] [place] 12/12/21 - 12/13/[address] [address]- Encounter Diagnosis Urinary catheter change required(Final) - 12/12/21 Discharge Disposition: A-D/C Home Attending Physician: Priscilla Bull DO Admitting Physician: Priscilla Bull DO Referring Physician: Not on Staff, Referring [...] 0 Refills, Maintenance, 11/18/21 8:23:00 EDT, Nasal [place], [id number], Partial fill upon patient request if the prescription is for a schedule II opioid drug., 1 sprays Nares, Both 2 time... Start Date: 11/18/21 Status: Ordered Flovent Diskus 100 mcg/inh inhalation powder 1 puffs, Inhalation, Daily, # 1 Unknown, 1 Refills, Maintenance, 11/23/21 9:59:00 EDT, [facility]/pharmacy#[id number], 1 puffs Inhalation Daily, 168, cm, 11/22/21 [...] 12/19/21 8:53:00 EDT, 11/17/21 8:52:00 EDT, Ointment, [facility]/pharmacy #[id number], Partial fill upon patient [...] 1 2 3 Oxygen Saturation [94-100 %] 100 % (12/12/21 6:59 PM) 96 % (12/12/21 3:56 PM) 100 % (12/12/21 1:35 PM) Pulse Rate [55-90 bpm] 66 bpm (12/12/21 6:59 PM) 63 bpm (12/12/21 3:56 PM) 64 bpm (12/12/21 1:35 PM) Blood Pressure [90-138/55-84 mm Hg] 106/60mm Hg (12/12/21 6:59 PM) 113/50mm Hg (12/12/21 3:56 PM) 140/48mm Hg *H* (12/12/21 1:35 PM) Respiratory Rate [16-30 br/min] 20 br/min (12/12/21 6:59 PM) 20 br/min (12/12/21 3:56 PM) 20 br/min (12/12/21 1:35 PM) Temperature [96.8-100.4 DegF] 97.8 DegF (12/12/21 1:35 PM) Mode of Delivery (Oxygen) Room air (12/12/21 6:59 PM) Room air (12/12/21 3:56 PM) Room air (12/12/21 1:35 PM) Blood pressure sites Arm, left (12/12/21 6:59 PM) Arm, left (12/12/21 3:56 PM) Arm, left (12/12/21 1:35 PM) Temperature Route Oral (12/12/21 1:35 PM) Social History Social History Type Response Smoking Status Former smoker; Tobac co user in household: No entered on: 01/17/17 Sex
--- OUTSIDE RECORDS SUMMARY | 2024-01-06 09:17 | XMS_ITS | Continuity of Care Document ---
Author Organization [facility] ter Address [address] [place] [address]- Care Team Providers Care Industrial Aerial Installer Name Role Phone Cherise Hamm MD Primary Care Physician [phone] Encounter [facility] Date(s): 12/22/23 - 12/23/[address] [address]- Encounter Diagnosis Abdominal pain in female(Final) - 12/23/23 Discharge Disposition: A-D/C Home Attending Physician: Alin Thomas MD Admitting Physician: Alin Thomas MD Referring Physician: Not on Staff, Referring [...] 2 Refills, Maintenance, 01/08/23 12:40:00 EDT, Solution, [facility]/pharmacy #[id number], ICD 10 - J45.901, [...] 3 Refills, Maintenance, 11/01/22 11:09:00 EDT, Powder, [facility]/pharmacy #[id number], Partial fill upon patient request if the prescription is for a schedule II opioid drug., 1 puffs Inhalation Daily, 167.64, cm, 11/01/22 7... Start Date: 11/01/22 Status: Ordered Cipro 500 mg oral tablet 1 tablet = 500 mg, By Mouth, Every 12 hours, # 14 tablet, 0 Refills, Maintenance, 12/15/23 16:04:00EDT, Tablet, Partial fill upon patient request if the prescription is for a schedule II opioid drug. Start Date: 12/15/23 Stop Date: 12/22/23 Status: Ordered Eliquis 5 mg oral tablet [...] 0 Refills, Maintenance, 08/01/22 11:21:00 EST, Solution, [facility]/pharmacy #[id number], Partial fill upon patient [...] 11/01/22 11:29:00 EDT, Route to Pharmacy Electronically, [facility]/pharmacy #[id number], Partial fill upon patient [...] 3 Oxygen Saturation [94-100 %] 97 % (12/23/23 3:08 AM) 96 % (12/23/23 12:45 AM) 100 % (12/22/23 10:10 PM) Pulse Rate [55-90 bpm] 73 bpm (12/23/23 3:08 AM) 74 bpm (12/23/23 12:45 AM) 66 bpm (12/22/23 7:40 PM) Blood Pressure [90-138/55-84 mm Hg] 178/72mm Hg *H* (12/23/23 3:08 AM) 156/100mm Hg *H* (12/23/23 12:45 AM) 181/65mm Hg *H* (12/22/23 10:10 PM) Respiratory Rate [16-30 br/min] 20 br/min (12/23/23 3:08 AM) 22 br/min (12/23/23 12:45 AM) 18 br/min (12/22/23 10:10 PM) Temperature [96.8-100.4 DegF] 98.2 DegF (12/23/23 3:08 AM) 97.9 DegF (12/22/23 5:57 PM) Liters per Minute 2 L/min (12/23/23 3:08 AM) 2 L/min (12/23/23 12:45 AM) 2 L/min (12/22/23 10:10 PM) Mode of Delivery (Oxygen) Nasal cannula (12/23/23 3:08 AM) Nasal cannula (12/23/23 12:45 AM) Nasal cannula (12/22/23 10:10 PM) Blood pressure sites Arm, left (12/23/23 3:08 AM) Arm, left (12/23/23 12:45 AM) Arm, left (12/22/23 10:10 PM) Temperature Route Oral (12/23/23 3:08 AM) Oral (12/22/23 5:57 PM) Social History Social History Type Response Smoking Status Former smoker; Tobac co user in household: No entered on: 01/17/17 Sex Note * Stacie Cedillo DO: PERFORM Event Display: Patient Education Leaflets Authored Date: [id number] Unknown Causes of Abdominal Pain(Adult) ?? [id number] Unknown Causes of Abdominal Pain(Adult) The exact cause of your belly (abdominal) pain is not clear. Your exam and tests don't suggest a dangerous cause at this time. This does not mean that this is something to worry about. Everyone likesto know the exact cause of the problem. But sometimes with belly pain, there is no clear-cut cause,and this could be a good thing. Your symptoms can be treated, and you should feel better.?? Your condition does not seem serious now. But sometimes the signs of a serious problem may take more time to appear. For this reason,??it's important for you to watch for any new symptoms, problems,??or worsening of your condition. Over the next few days, the abdominal pain may come and go. Or it may be constant. Other common symptoms can include nausea and vomiting. Sometimes it can be difficult to tell if you feel nauseous. You may just feel bad and not connect that feeling to nausea. Constipation, diarrhea, and a fever maygo along with the pain. The pain may continue even if treated correctly over the following days. Depending on how things go, sometimes the cause can become clear and you may need more??or different treatment. You may also need other evaluations, medicines, or tests. Home care Your healthcare provider may prescribe medicine for pain, symptoms, or an infection. ??Follow the healthcare provider's instructions for taking these medicines. General care ??? Rest as much as you can until your next exam. No strenuous activities. ??? Try to not do anything that may have caused your symptoms. This might be not taking any medicines unless otherwise directed by your healthcare provider. It might be not eating certain foods or doing certain activities. ??? Find positions that ease discomfort. A small pillow placed on your belly may help relieve pain. ??? Something warm on your belly such as a heating pad may help, but be careful not to burn yourself. Diet ??? Don???t??force yourself to eat, especially if having cramps, vomiting, or diarrhea. ??? Water is important so you don't get dehydrated. Soup may also be good. Sports drinks may also help, especially if they are not too acidic. Don't drink sugary drinks as this can make things worse. Take liquids in small amounts. Don???t??guzzle them. ??? Caffeine sometimes makes the pain and cramping worse. ??? Don???t take??dairy products if you have vomiting or diarrhea. ??? Don't eat large amounts at a time. Eat several small meals during the day instead of 2 or 3 larger meals. Wait a few minutesbetween bites. ??? Eat a diet low in fiber (called a low-residue diet). Foods allowed include refined breads, white rice, fruit and vegetable juices without pulp, tender meats. These foods will pass more easily through the intestine. ??? Don???t have??whole-grain foods, whole fruits and vegetables,meats, seeds and nuts, fried or fatty foods, dairy, alcohol and spicy foods until your symptoms go away. ?? Follow-up care Follow up with your healthcare provider, or as advised, if your pain does not begin to improve in the next 24 hours. ?? Call 911 Call?? 911 if any of these occur: ??? Trouble breathing ??? Confusion ??? Fainting or loss of consciousness ??? Rapid heart rate ??? Seizure ?? When to seek medical advice Call your healthcare provider right away if any of these occur: ??? Pain gets worse or moves to theright lower abdomen ??? New or worsening vomiting or diarrhea ??? Swelling of the abdomen ??? Unable to pass stool for more than??3 days ??? Fever of 100.4??F (38??C) or higher, or as directed by your healthcare provider ??? Blood in vomit or bowel movements (dark red or black color) ??? Yellow color of eyes and skin (jaundice) ??? Weakness, dizziness ??? Chest, arm, back, neck, or jaw pain ??? Can't keep down medicines, liquids, or water because of too much vomiting ??? If you have a vagina: unexpected vaginal bleeding or missed period ?? Last Reviewed Date: 2021 ?? [employer]. All rights reserved. This information is not intended as a substitute for professional medical care. Always follow your healthcare professional's instructions. ?? Patient Care team information Care Team Personnel Name: Tala Curiel LPN Position: [facility] RN Member Role: Primary Care Nurse Name: Tk Iqbal RN Position: [facility] SN RN Member Role: Primary Care Nurse Name: Jovanny Stuart RN Position: S RN Member Role: Primary Care Nurse Name: Delaney De Los Santos RN Position: [facility] SN RN Member Role: Primary Care Nurse Name: Batool Sweet RN Position: [facility] RN Member Role: Primary Care Nurse Name: Michelle Ricketts RN Position: S RN Member Role: Primary Care Nurse Name: Lainey Walker LPN Position: S RN Member Role: Primary Care Nurse Name: Yanira Trevizo RN Position: [facility] RN Member Role: Primary Care Nurse Name: Batool Cervantes RN Position: S RN Member Role: Primary Care Nurse Name: Fern Franklin LPN Position: S RN Member Role: Primary Care Nurse Name: Vasyl Catherine RN Position: [facility] RN Member Role: Primary Care Nurse Name: Eve Masters RN Position: [facility] RN Member Role: Primary Care Nurse Name: Elizabeth Barrios RN Position: [facility] RN Member Role: Primary Care Nurse Name: Jignesh Stoner RN Position: [facility] RN Member Role: Primary Care Nurse Name: Rosy Arriaza RN Position: [facility] RN Member Role: Primary Care Nurse Name: Cherise Hamm MD Position: [facility] Outreach Member Role: PCP Address: Address: [address] [place] [address] Name: John Guaman RN Position: [facility] RN Member Role: Primary Care Nurse Name: Rocio Andrade RN Position: [facility] RN Member Role: Primary Care Nurse Care Team Related Persons Name: STEPHANI ADAM Address: [address] [place] [address] Name: NATHEN LLOYD
--- OUTSIDE RECORDS SUMMARY | 2024-01-06 09:17 | XMS_ITS | Continuity of Care Document ---
Author Organization [facility] ter Address [address] [place] [address]- Care Team Providers Care Mastic Floor Layer Name Role Phone Cherise Hamm MD Primary Care Physician Encounter [facility] Date(s): 07/13/21 - 07/13/[address] [address]- Encounter Diagnosis Dislodged Molina catheter(Final) - 07/13/21 Discharge Disposition: A-D/C Home Attending Physician: Briseida Dan MD Admitting Physician: Briseida Dan MD Referring Physician: Not on Staff, Referring [...] opioid drug. Start Date: 06/30/21 Status: Ordered Eliquis 5 mg oral tablet [...] Start Date: 06/30/21 Status: Ordered nystatin topical [id number] u/gm powder 1 application, Topically, 2 times [...] 3 Oxygen Saturation [94-100 %] 98 % (07/13/21 7:42 PM) 98 % (07/13/21 3:35 PM) 98 % (07/13/21 11:44 AM) Pulse Rate [55-90 bpm] 70 bpm (07/13/21 7:42 PM) 72 bpm (07/13/21 3:35 PM) 70 bpm (07/13/21 11:44 AM) Blood Pressure [90-138/55-84 mm Hg] 133/88mm Hg (07/13/21 7:42 PM) 136/69mm Hg (07/13/21 3:35 PM) 133/67mm Hg (07/13/21 11:44 AM) Respiratory Rate [16-30 br/min] 18 br/min (07/13/21 7:42 PM) 18 br/min (07/13/21 3:35 PM) 17 br/min (07/13/21 11:44 AM) Temperature [96.8-100.4 DegF] 97.9 DegF (07/13/21 11:44 AM) Mode of Delivery (Oxygen) Room air (07/13/21 7:42 PM) Room air (07/13/21 3:35 PM) Room air (07/13/21 11:44 AM) Blood pressure sites Arm, left (07/13/21 11:44 AM) Temperature Route Oral (07/13/21 11:44 AM) Social History Social History Type Response Smoking Status Former smoker; Tobac co user in household: No entered on: 01/17/17 Sex
--- OUTSIDE RECORDS SUMMARY | 2024-01-06 09:17 | XMS_ITS | Continuity of Care Document ---
Author Organization [facility] Address [address] [place] [address]- Care Team Providers Care Inventory Clerk Name Role Phone Cherise Hamm MD Primary Care Physician [phone] [place] [facility]/05/23 - 02/04/[address] [address] Attending Physician: Admtr, Ar8 Admitting Physician: Admtr, Ar8 Referring Physician: Admtr, Ar8 Allergies, Adverse Reactions, Alerts Substance Reaction Severity [...] 2 Refills, Maintenance, 01/08/23 12:40:00 EDT, Solution, [facility]/pharmacy #[id number], ICD 10 - J45.901, 16... Start [...] 3 Refills, Maintenance, 11/01/22 11:09:00 EDT, Powder, [facility]/pharmacy #[id number], Partial fill upon patient request if the prescription is for a schedule II opioid drug., 1 puffs Inhalation Daily, 167.64, cm, 11/01/22 7... Start Date: 11/01/22 Status: Ordered docusate-senna 50 mg-187 mg oral tablet 2 tablet, By Mouth, Daily at bedtime, PRN Constipation, for 30 days, # 60 tablet, 0 Refills, Acute 02/12/23 11:53:00 EDT, 01/13/23 11:53:00 EDT, Tablet, [facility]/pharmacy #[id number], Partial fill upon patient request if [...] 0 Refills, Maintenance, 08/01/22 11:21:00 EST, Solution, [facility]/pharmacy #[id number], Partial fill upon patient request if [...] 11/01/22 11:29:00 EDT, Route to Pharmacy Electronically, [facility]/pharmacy #[id number], Partial fill upon patient request if [...] Team Personnel Name: Alvaro Oliver RN Position: [facility] RN Member Role: Primary Care Nurse Name: Tala Curiel LPN Position: [facility] RN Member Role: Primary Care Nurse Name: Tk Iqbal RN Position: [facility] RN Member Role: Primary Care Nurse Name: Jovanny Stuart RN Position: [facility] RN Member Role: Primary Care Nurse Name: Delaney De Los Santos RN Position: [facility] RN Member Role: Primary Care Nurse Name: Michelle Ricketts Position: [facility] RN Member Role: Primary Care Nurse Name: Cande Kennedy RN Position: [facility] KRISTIN Nurse Member Role: Primary Care Nurse Name: Batool Summers Position: [facility] RN Member Role: Primary Care Nurse Name: Lainey Walker LPN Position: [facility] RN Member Role: Primary Care Nurse Name: Yanira Trevizo Position: [facility] RN Member Role: Primary Care Nurse Name: Batool Cervantes RN Position: [facility] RN Member Role: Primary Care Nurse Name: Batsheva Bernard RN Position: [facility] RN Member Role: Primary Care Nurse Name: Fern Franklin LPN Position: [facility] RN Member Role: Primary Care Nurse Name: Vasyl Catherine RN Position: [facility] RN Member Role: Primary Care Nurse Name: Eve Masters RN Position: [facility] RN Member Role: Primary Care Nurse Name: Elizabeth Barrios RN Position: [facility] RN Member Role: Primary Care Nurse Name: Jignesh Stoner RN Position: S RN Member Role: Primary Care Nurse Name: Kady Garcias RN Position: S RN Member Role: Primary Care Nurse Name: Rosy Arriaza RN Position: S RN Member Role: Primary Care Nurse Name: Cherise Hamm MD Position: [facility] Outreach Member Role: PCP Address: Address: [address] [place] [address]- Name: Chyna Aguilar RN Position: [facility] RN Member Role: Primary Care Nurse Address: Address: [address] [place] [address]- Name: John Guaman RN Position: [facility] RN Member Role: Primary Care Nurse Name: Rocio Andrade RN Position: [facility] RN Member Role: Primary Care Nurse Care Team Related Persons Name: HANANE ADAME Address: [address] [place] [address] Name: NATHEN LLOYD
--- OUTSIDE RECORDS SUMMARY | 2024-01-06 09:17 | XMS_ITS | Continuity of Care Document ---
Author Organization [facility] ter Address [address] [place] [address]- Care Team Providers Care Conference Director Name Role Phone Cherise Hamm MD Primary Care Physician [facility] Date[facility]s): 12/[facility]/22 - 12/03/[address] [address]- Discharge Disposition: A-D/C Home Attending Physician: Sacha GONZALEZ, Haylee Koch Admitting Physician: Haylee Goncalves MD Referring Physician: Not on Staff, Referring [...] 2 Refills, Maintenance, 11/14/22 17:09:00 EDT, Solution, [facility]/pharmacy #[id number], ICD 10 - J45.901, 16... [...] 1 Refills, Maintenance, 11/01/22 11:22:00 EDT, Liquid, [facility]/pharmacy #[id number], Partial fill upon patient request [...] 0 Refills, Maintenance, 08/01/22 11:21:00 EST, Solution, [facility]/pharmacy #[id number], Partial fill upon patient request if the prescription is for a schedule II opioid drug., 2 drops Eye, Left 2... Start Date: 08/01/22 Status: Ordered oxybutynin 5 mg/24 hours oral tablet, extended release 1 tablet = 5 mg, By Mouth, Daily at bedtime, # 30 tablet, 0 Refills, Maintenance, 11/26/22 19:42:00EDT, ER Tablet, [facility]/pharmacy #[id number], Partial fill upon patient request if the prescription is for a schedule II opioid drug., 168, cm, 11/25/22 6:47:00... Start Date: 11/26/22 Status: Ordered predniSONE 10 mg oral tablet See Instructions, 2 tabs daily for 3 days, then 1 tab daily for 3 days, then stop, # 9 tablet, 0 Refills, Maintenance, 11/01/22 11:08:00 EDT, Tablet, [facility]/pharmacy #[id number], Partial fill upon patient request [...] 11/01/22 11:29:00 EDT, Route to Pharmacy Electronically, [facility]/pharmacy #[id number], Partial fill upon patient request if the prescription is for a schedule II opioi... Start Date: 11/01/22 Status: Ordered Tessalon Perles 100 mg oral capsule 2 capsule = 200 mg, By Mouth, 3 times a day, PRN as needed for cough, for 21 days, # 100 capsule, 1Refills, Acute 12/13/22 11:21:00 EDT, 11/01/22 11:21:00 EDT, Capsule, [facility]/pharmacy #[id number], Partial fill upon patient request [...] Exam Date Time Procedure Performing Provider Status 12/02/22 11:59 PM US Doppler Ext Upper Venous Bilat Latisha Parsons; Auth (Verified) Notes: (US Doppler Ext Upper Venous Bilat) Reason For Exam: Pain in limb;Other: RESULT: US Doppler Ext Upper Venous Bilat US Doppler Ext Upper Venous Bilat Hx of Present Illness: Bilateral shoulder pain arm swelling; Reason: Other:; Pain in limb; ClinicalQuestion(s): Thrombosis COMPARISON: 11/13/2022. IMAGING TECHNIQUE: Ultrasound examination of the bilateral upper extremity deep venous systems was performed using grayscale, color, and spectral wave analysis including response to compression. FINDINGS: Suboptimal exam due to body habitus. RIGHT UPPER EXTREMITY: Internal jugular vein: Patent. No thrombosis. Subclavian vein: Limited evaluation demonstrates no evidence of thrombosis. Axillary vein: Patent. No thrombosis. Brachial vein: Patent. No thrombosis. Basilic vein: Patent. No thrombosis. Cephalic vein: Patent. No thrombosis. LEFT UPPER EXTREMITY: Internal jugular vein: Patent. No thrombosis. Subclavian vein: Limited exam demonstrates no evidence of thrombosis. Axillary vein: Patent. No thrombosis. Brachial vein: Patent. No thrombosis. Basilic vein: Patent. No thrombosis. Cephalic vein: Patent. No thrombosis. Other: Previously seen left forearm hematoma is not seen on current study. IMPRESSION: Limited study due to the patient's body habitus. There is no evidence of thrombosis. I have personally reviewed the images and I agree with this report. WSN: [id number] Ordering Physician: Lazara Dunbar Dictated By: Gaudencio Bailon MD Dictated Date/Time: 12/03/22 5:23 am Reviewed By: Viky Hilario MD Signed By: Viky Hilario MD Signed Date/Time: 12/03/22 5:28 am Transcribed By: SOLOMON Transcribed Date/Time: 12/03/22 0:06 am Vital Signs Most recent to oldest [Reference Range]: 1 2 3 Height 167 cm (12/02/22 10:30 PM) 167 cm (12/02/22 10:08 PM) Weight 120.5 kg (12/02/22 10:30 PM) 120.5 kg (12/02/22 10:08 PM) Oxygen Saturation [94-100 %] 97 % (12/03/22 6:22 AM) 97 % (12/03/22 4:43 AM) 99 % (12/03/22 1:50 AM) Pulse Rate [55-90 bpm] 61 bpm (12/03/22 6:22 AM) 66 bpm (12/03/22 4:43 AM) 62 bpm (12/03/22 1:50 AM) Body Mass Index [18.5-24.99 kg/m2] 43.21 kg/m2 *>HHI* (12/02/22 10:30 PM) Blood Pressure [90-138/55-84 mm Hg] 140/80mm Hg *H* (12/03/22 6:22 AM) 117/51mm Hg (12/03/22 4:43 AM) 132/56mm Hg (12/03/22 1:50 AM) Respiratory Rate [16-30 br/min] 20 br/min (12/03/22 6:22 AM) 20 br/min (12/03/22 4:43 AM) 18 br/min (12/03/22 1:50 AM) Temperature [96.8-100.4 DegF] 97.6 DegF (12/02/22 10:17 PM) 97.6 DegF (12/02/22 10:08 PM) Liters per Minute 2 L/min (12/03/22 6:22 AM) 2 L/min (12/03/22 4:43 AM) 2 L/min (12/03/22 1:50 AM) Mode of Delivery (Oxygen) Nasal cannula (12/03/22 6:22 AM) Nasal cannula (12/03/22 4:43 AM) Nasal cannula (12/03/22 1:50 AM) Blood pressure sites Arm, left (12/03/22 4:43 AM) Arm, left (12/02/22 10:08 PM) Temperature Route Oral (12/02/22 10:17 PM) Oral (12/02/22 10:08 PM) Dry Weight 120.5 kg (12/02/22 10:30 PM) 120.5 kg (12/02/22 10:08 PM) Weight Obtained Via Patient/family stated (12/02/22 10:30 PM) Patient/family stated (12/02/22 10:08 PM) Social History Social History Type Response Smoking Status Former smoker; Tobac co user in household: No entered on: 01/17/17 Sex Note * Bettina DHALIWAL, Lazara Medina: PERFORM Event Display: Patient Education Leaflets Authored Date: [id number] Arthralgia ?? [id number] Arthralgia Arthralgia is the term for pain in or around the joint. It is a symptom, not a disease. This pain may affect 1 or more joints. In some cases, the pain moves from joint to joint. There are many causes for joint pain. These include: ??? Injury ??? Wearing out the joint surface (osteoarthritis) ??? Inflammation of the joint becauseof crystals in the joint fluid (gout) ??? Infection inside the joint ? Inflammation of the fluid-filled sacs around the joint (bursitis) ??? Autoimmune disorders, such as rheumatoid arthritis orlupus ??? Inflammation of chords that attach muscle to bone (tendonitis) Home care ??? Rest the affected joints until your symptoms improve.? Eat a healthy diet, exercise as advised by your healthcare provider, and stay at a healthy weight ??? You may be prescribed pain medicine. If none is prescribed, you may use acetaminophen or ibuprofen to control pain and inflammation. ?? Follow-up care Follow up with your healthcare provider or as advised. ?? When to get medical care Call your healthcare provider right away if any of these occur: ??? Pain,??swelling, or redness of??joint increases ??? Pain that gets worse or comes back after some improvement ??? Pain moves to other joints ??? You can't bear weight on the affected joint? You can't move the affected joint ??? Joint looks deformed ??? New rash appears ??? Fever of??100.4??F (38??C)??or higher, or as advisedby your provider ??? New symptoms appear ?? Last Reviewed Date: 2021 ?? [id number] [employer]. All rights reserved. This information is not intended as a substitute for professional medical care. Always follow your healthcare professional's instructions. ?? US.doppler Upper extremity vein - bilateral * [facility] , CIS S: TRANSCRIBE Sulaiman GONZALEZ, Viky O: VERIFY Uvaldo GONZALEZ, Ahmed: SIGN Event Display: Result: Authored Date: [id number] US Doppler Ext Upper Venous Bilat Hx of Present Illness: Bilateral shoulder pain arm swelling; Reason: Other:; Pain in limb; ClinicalQuestion(s): Thrombosis COMPARISON: 11/13/2022. IMAGING TECHNIQUE: Ultrasound examination of the bilateral upper extremity deep venous systems was performed using grayscale, color, and spectral wave analysis including response to compression. FINDINGS: Suboptimal exam due to body habitus. RIGHT UPPER EXTREMITY: Internal jugular vein: Patent. No thrombosis. Subclavian vein: Limited evaluation demonstrates no evidence of thrombosis. Axillary vein: Patent. No thrombosis. Brachial vein: Patent. No thrombosis. Basilic vein: Patent. No thrombosis. Cephalic vein: Patent. No thrombosis. LEFT UPPER EXTREMITY: Internal jugular vein: Patent. No thrombosis. Subclavian vein: Limited exam demonstrates no evidence of thrombosis. Axillary vein: Patent. No thrombosis. Brachial vein: Patent. No thrombosis. Basilic vein: Patent. No thrombosis. Cephalic vein: Patent. No thrombosis. Other: Previously seen left forearm hematoma is not seen on current study. IMPRESSION: Limited study due to the patient's body habitus. There is no evidence of thrombosis. I have personally reviewed the images and I agree with this report. WSN: [id number] Ordering Physician: Lazara Dunbar Dictated By: Gaudencio Bailon MD Dictated Date/Time: 12/03/22 5:23 am Reviewed By: Viky Hilario MD Signed By: Viky Hilario MD Signed Date/Time: 12/03/22 5:28 am Transcribed By: SOLOMON Transcribed Date/Time: 12/03/22 0:06 am Patient Care team information Care Team Personnel Name: Alvaro Oliver RN Position: [facility] RN Member Role: Primary Care Nurse Name: Tk Iqbal RN Position: [facility] RN Member Role: Primary Care Nurse Name: Jovanny Stuart RN Position: [facility] RN Member Role: Primary Care Nurse Name: Delaney De Los Santos RN Position: [facility] SN RN Member Role: Primary Care Nurse Name: Michelle Ricketts Position: [facility] RN Member Role: Primary Care Nurse Name: Reymundo Perkins RN Position: [facility] RN Member Role: Primary Care Nurse Name: Cande Kennedy RN Position: [facility] AMB Nurse Member Role: Primary Care Nurse Name: Batool Summers Position: [facility] RN Member Role: Primary Care Nurse Name: Lainey Walker LPN Position: [facility] RN Member Role: Primary Care Nurse Name: Yanira Trevizo Position: [facility] RN Member Role: Primary Care Nurse Name: Batool Cervantes RN Position: [facility] RN Member Role: Primary Care Nurse Name: Rafael Hicks RN Position: [facility] RN Member Role: Primary Care Nurse Name: Batsheva Bernard RN Position: [facility] RN Member Role: Primary Care Nurse Name: Fern Franklin LPN Position: [facility] RN Member Role: Primary Care Nurse Name: Vasyl Catherine RN Position: [facility] RN Member Role: Primary Care Nurse Name: Eve Masters RN Position: [facility] RN Member Role: Primary Care Nurse Name: Jenelle Jay RN Position: [facility] RN Member Role: Primary Care Nurse Name: Elizabeth Barrios RN Position: [facility] RN Member Role: Primary Care Nurse Name: Jignesh Stoner RN Position: [facility] RN Member Role: Primary Care Nurse Name: Kady Garcias RN Position: [facility] RN Member Role: Primary Care Nurse Name: Cherise Hamm MD Position: [facility] Outreach Member Role: PCP Address: Address: [address] [place] [address]- [place] Name: Chyna Aguilar RN Position: [facility] RN Member Role: Primary Care Nurse Address: Address: [address] [place] [address]- [place] Name: John Guaman RN Position: [facility] RN Member Role: Primary Care Nurse Name: Rafael Knowles RN Position: [facility] ED RN W/OE and Tasks Member Role: Patient Care Provider Name: Lazara Dunbar NP Position: [facility] Associate Professional Member Role: ED Physician Page Technician Address: Address: [address] [place] [address]- [place] Name: Haylee Goncalves MD Position: [facility] ED Medicine MD Member Role: ED Attending Physician Address: Address: [address] [place] [address]- Care Team Related Persons Name: STEPHANI ADAM Address: home [address] [facility] [address] Name: GEETHA NORMAN Address: [place] [address]
--- OUTSIDE RECORDS SUMMARY | 2024-01-06 09:17 | XMS_ITS | Continuity of Care Document ---
Author Organization [facility] ter Address [address] [place] [address]- Care Team Providers Care Inside Trucker Name Role Phone Hansel GONZALEZ, Cherise Bolden Primary Care Physician [phone] [facility] Date[facility]s): 11/19/22 - 11/19/[address] [address]- Discharge Disposition: A-D/C Home Attending Physician: Burton Perez MD Admitting Physician: Burton Perez MD Referring Physician: Not on Staff, Referring [...] 2 Refills, Maintenance, 11/14/22 17:09:00 EDT, Solution, [facility]/pharmacy #[id number], ICD 10 - J45.901, 16... Start [...] Refills, Soft Stop, 11/01/22 11:28:00 EDT, Tablet, [facility]/pharmacy #[id number], Partial fill upon patient request if the prescription is for a schedule II opioid drug., 167.64, cm, 11/01/22 7:13:00 EDT, Height, 117... Start Date: 11/01/22 Status: Ordered Breo Ellipta 200 mcg-25 mcg/inh inhalation powder 1 puffs, Inhalation, Daily, # 30 each, 3 Refills, Maintenance, 11/01/22 11:09:00 EDT, Powder, [facility]/pharmacy #[id number], Partial fill upon patient request if the prescription is for a schedule II opioid drug., 1 puffs Inhalation Daily, 167.64, cm, 11/01/22 7... Start Date: 11/01/22 Status: Ordered dextromethorphan-guaifenesin 10 mg-100 mg/10 mL oral liquid 10 mL, By Mouth, Every 4 hours, PRN as needed for cough, not to exceed 6 doses/day, # 60 mL, 1 Refills, Maintenance, 11/01/22 11:22:00 EDT, Liquid, [facility]/pharmacy #[id number], Partial fill upon patient request if [...] 0 Refills, Maintenance, 08/01/22 11:21:00 EST, Solution, [facility]/pharmacy #[id number], Partial fill upon patient request if the prescription is for a schedule II opioid drug., 2 drops Eye, Left 2... Start Date: 08/01/22 Status: Ordered predniSONE 10 mg oral tablet See Instructions, 2 tabs daily for 3 days, then 1 tab daily for 3 days, then stop, # 9 tablet, 0 Refills, Maintenance, 11/01/22 11:08:00 EDT, Tablet, [facility]/pharmacy #[id number], Partial fill upon patient request if [...] 11/01/22 11:29:00 EDT, Route to Pharmacy Electronically, [facility]/pharmacy #[id number], Partial fill upon patient request if the prescription is for a schedule II opioi... Start Date: 11/01/22 Status: Ordered Tessalon Perles 100 mg oral capsule 2 capsule = 200 mg, By Mouth, 3 times a day, PRN as needed for cough, for 21 days, # 100 capsule, 1Refills, Acute 12/13/22 11:21:00 EDT, 11/01/22 11:21:00 EDT, Capsule, [facility]/pharmacy #[id number], Partial fill upon patient request if [...] Exam Date Time Procedure Performing Provider Status 11/19/22 12:21 PM Foot Min 3 Views Left Miya Eastman ne; Auth (Verified) Notes: (Foot Min 3 Views Left) Reason For Exam: 4th toe trauma;Erythema RESULT: Foot Min 3 Views Left Foot Min 3 Views Left, 3 views Hx of Present Illness: PT BIBA with c o toe pain (8 10). Pt has a hematoma on her left 4th toe and an overgrown toenail she claims has been catching on her socks . Pt believes she may have hit it onher wheelchair but is unsure. Pt is DM2 and on eloquis; Reason: Erythema; 4th toe trauma; Clinical Question(s): Fracture COMPARISON: 02/03/2022 FINDINGS: Markedly osteopenic bones. No acute fracture or dislocation. Subacute to chronic appearing fractures of the distal second and third metatarsals where there is deformity and callus. Similar chronic deformity of the distal fourth metatarsal. Mild first MTP, interphalangeal joint and intertarsal joint osteoarthritic changes. IMPRESSION: Subacute to chronic appearing metatarsal deformities. No evidence of acute fracture. Markedly osteopenic bones and degenerative changes. WSN: [id number] Ordering Physician: Ewa Irving Dictated By: Consuelo Bentley MD Dictated Date/Time: 11/19/22 12:27 p Reviewed By: Consuelo Bentley MD Signed By: Consuelo Bentley MD Signed Date/Time: 11/19/22 12:27 pm Transcribed By: SOLOMON Transcribed Date/Time: 11/19/22 12:22 pm Vital Signs Most recent to oldest [Reference Range]: 1 2 3 Oxygen Saturation [94-100 %] 98 % (11/19/22 7:00 PM) 100 % (11/19/22 4:42 PM) 100 % (11/19/22 12:05 PM) Pulse Rate [55-90 bpm] 64 bpm (11/19/22 7:00 PM) 68 bpm (11/19/22 4:42 PM) 70 bpm (11/19/22 12:05 PM) Blood Pressure [90-138/55-84 mm Hg] 99/68mm Hg (11/19/22 7:00 PM) 152/78mm Hg *H* (11/19/22 4:42 PM) 146/74mm Hg *H* (11/19/22 12:05 PM) Respiratory Rate [16-30 br/min] 16 br/min (11/19/22 12:05 PM) Temperature [96.8-100.4 DegF] 97.9 DegF (11/19/22 7:00 PM) 98.1 DegF (11/19/22 12:05 PM) 98.1 DegF (11/19/22 12:03 PM) Mode of Delivery (Oxygen) Room air (11/19/22 7:00 PM) Room air (11/19/22 4:42 PM) Room air (11/19/22 12:05 PM) Temperature Route Oral (11/19/22 7:00 PM) Oral (11/19/22 12:05 PM) Social History Social History Type Response Smoking Status Former smoker; Tobac co user in household: No entered on: 01/17/17 Sex XR Foot - left GE 3 Views * [facility] , CIS S: TRANSCRIBE Mc GONZALEZ, Consuelo R: VERIFY Event Display: Result: Authored Date: [id number] Foot Min 3 Views Left, 3 views Hx of Present Illness: PT BIBA with c o toe pain (8 10). Pt has a hematoma on her left 4th toe and an overgrown toenail she claims has been catching on her socks . Pt believes she may have hit it onher wheelchair but is unsure. Pt is DM2 and on eloquis; Reason: Erythema; 4th toe trauma; Clinical Question(s): Fracture COMPARISON: 02/03/2022 FINDINGS: Markedly osteopenic bones. No acute fracture or dislocation. Subacute to chronic appearing fractures of the distal second and third metatarsals where there is deformity and callus. Similar chronic deformity of the distal fourth metatarsal. Mild first MTP, interphalangeal joint and intertarsal joint osteoarthritic changes. IMPRESSION: Subacute to chronic appearing metatarsal deformities. No evidence of acute fracture. Markedly osteopenic bones and degenerative changes. WSN: [id number] Ordering Physician: Ewa Irving Dictated By: Consuelo Bentley MD Dictated Date/Time: 11/19/22 12:27 p Reviewed By: Consuelo Bentley MD Signed By: Consuelo Bentley MD Signed Date/Time: 11/19/22 12:27 pm Transcribed By: SOLOMON Transcribed Date/Time: 11/19/22 12:22 pm Patient Care team information Care Team Personnel Name: Alvaro Oliver RN Position: [facility] RN Member Role: Primary Care Nurse Name: Tk Iqbal RN Position: [facility] RN Member Role: Primary Care Nurse Name: Lachelle Daniels RN Position: [facility] RN Member Role: Primary Care Nurse Name: Jovanny Stuart RN Position: [facility] RN Member Role: Primary Care Nurse Name: Delaney De Los Santos RN Position: [facility] RN Member Role: Primary Care Nurse Name: Michelle Ricketts Position: [facility] RN Member Role: Primary Care Nurse Name: Jillian Mckeon RN Position: [facility] RN Member Role: Primary Care Nurse Name: Reymundo Perkins RN Position: [facility] RN Member Role: Primary Care Nurse Name: Cande Kennedy RN Position: [facility] AMB Nurse Member Role: Primary [...] Care Nurse Name: Rafael Hicks RN Position: [facility] RN Member [...] Care Nurse Name: Jenelle Jay RN Position: [facility] RN Member Role: Primary Care Nurse Name: Elizabeth Barrios RN Position: [facility] RN Member Role: Primary Care Nurse Name: Jignesh Stoner RN Position: [facility] RN Member Role: Primary Care Nurse Name: Kady Garcias RN Position: [facility] RN Member Role: Primary Care Nurse Name: Cherise Hamm MD Position: [facility] Outreach Member Role: PCP Address: Address: [address] [place] [address]- [place] Name: Chyna Aguilar RN Position: [facility] RN Member Role: Primary Care Nurse Address: Address: [address] [place] [address]- [place] Name: John Guaman RN Position: [facility] RN Member Role: Primary Care Nurse Name: Maria M Vance RN Position: [facility] RN Member Role: Primary Care Nurse Name: Ewa Chan Position: [facility] Associate Professional Member Role: ED Physician Musician Instrumental Address: Address: [address] [place] [address] [place] [address]- [place] Name: Burton Perez MD Position: [facility] ED Medicine MD Member Role: Admitting Physician Address: Address: [address] [place] [address] Department [place] [address]- [place] Name: Juan Barrios RN Position: [facility] ED RN W/OE and Tasks Member Role: Patient Care Provider Care Team Related Persons Name: KIA STEPHANI Address: home [address] [place] [address] Name: GEETHA NORMAN Address: [place] [address]
--- OUTSIDE RECORDS SUMMARY | 2024-01-06 09:17 | XMS_ITS | Continuity of Care Document ---
Author Organization [facility] ter Address [address] [place] [id number]- Care Team Providers Care Appetizer Packer Name Role Phone Hansel GONZALEZ, Cherise Bolden Primary Care Physician [phone] Encounter [facility] Date(s): 02/03/22 - 02/03/[address] [address]- Encounter Diagnosis Hematuria(Final) - 02/03/22 Rai catheter status(Final) - 02/03/22 Discharge Disposition: A-D/C Home Attending Physician: Donta Cifuentes MD Admitting Physician: Donta Cifuentes MD Referring Physician: Not on Staff, Referring [...] 0 Refills, Maintenance, 11/22/21 9:22:00 EDT, Tablet, [facility]/pharmacy #[id number], Partial fill upon patient [...] 0 Refills, Maintenance, 11/18/21 8:23:00 EDT, Nasal [place], [id number], Partial fill upon patient request if the prescription is for a schedule II opioid drug., 1 sprays Nares, Both 2 time... Start Date: 11/18/21 Status: Ordered Flovent Diskus 100 mcg/inh inhalation powder 1 puffs, Inhalation, Daily, # 1 Unknown, 1 Refills, Maintenance, 11/23/21 9:59:00 EDT, [facility]/pharmacy#[id number], 1 puffs Inhalation Daily, 168, cm, [...] Exam Date Time Procedure Performing Provider Status 02/03/22 10:59 AM Toe Great Left Foot Marisa Leigh ; Auth (Verified) Notes: (Toe Great Left Foot) Reason For Exam: with Pain;Trauma RESULT: Toe Great Left Foot Toe Great Left Foot, 3 views Hx of Present Illness: pt coming from home, with c o hematuria to rai bag, hx uti's. Pt admits toblood thinners. Daughter called for pt. HX dm. Pt started on antibitoics on the 02 01 22; Reason: Trauma; with Pain; Clinical Question(s): Fracture COMPARISON: None. FINDINGS: Osteopenia. No evidence of fracture or dislocation. Mild first MTP and interphalangeal joint osteoarthritis IMPRESSION: No evidence of fracture or dislocation. Mild osteoarthritis. Osteopenia WSN: [id number] Ordering Physician: Velia Arshad Dictated By: Alvaro Arce MD Dictated Date/Time: 02/03/22 11:02 a Reviewed By: Alvaro Arce MD Signed By: Alvaro Acre MD Signed Date/Time: 02/03/22 11:02 am Transcribed By: SOLOMON Transcribed Date/Time: 02/03/22 11:01 am Vital Signs Most recent to oldest [Reference Range]: 1 2 3 Oxygen Saturation [94-100 %] 97 % (02/03/22 2:11 PM) 93 % *L* (02/03/22 12:35 PM) 95 % (02/03/22 12:10 PM) Pulse Rate [55-90 bpm] 76 bpm (02/03/22 2:11 PM) 66 bpm (02/03/22 12:35 PM) 60 bpm (02/03/22 12:10 PM) Blood Pressure [90-138/55-84 mm Hg] 163/84mm Hg *H* (02/03/22 2:11 PM) 172/93mm Hg *H* (02/03/22 12:35 PM) 172/93mm Hg *H* (02/03/22 12:10 PM) Respiratory Rate [16-30 br/min] 20 br/min (02/03/22 2:11 PM) 16 br/min (02/03/22 12:35 PM) 24 br/min (02/03/22 12:10 PM) Temperature [96.8-100.4 DegF] 98.3 DegF (02/03/22 8:51 AM) Mode of Delivery (Oxygen) Room air (02/03/22 12:35 PM) Room air (02/03/22 8:51 AM) Blood pressure sites Arm, left (02/03/22 12:35 PM) Arm, right (02/03/22 8:51 AM) Temperature Route Oral (02/03/22 8:51 AM) Social History Social History Type Response Smoking Status Former smoker; Tobac co user in household: No entered on: 01/17/17 Sex
--- OUTSIDE RECORDS SUMMARY | 2024-01-06 09:17 | XMS_ITS | Continuity of Care Document ---
Author Organization [facility] ter Address [address] [place] [address]- Care Team Providers Care Wind Turbine Technician Name Role Phone Cherise Hamm MD Primary Care Physician Encounter [facility] Date(s): 12/30/21 - 12/30/[address] [address]- Discharge Disposition: A-D/C Home Attending Physician: Leobardo Dumont MD Admitting Physician: Leobardo Dumont MD Referring Physician: Not on Staff, Referring [...] EDT, Supply Start Date: 11/22/21 Status: Ordered cephalexin monohydrate 500 mg oral capsule 1 capsule = 500 mg, By Mouth, 4 times a day, for 7 days, # 28 capsule, 0 Refills, Acute 01/06/22 21:51:00 EDT, 12/30/21 21:51:00 EDT, [place], [id number], Partial fill upon patient request ifthe prescription is for a schedule II opioid drug.,... Start Date: 12/30/21 Stop Date: 01/06/22 Status: Ordered cholecalciferol 1000 intl units oral [...] 0 Refills, Maintenance, 11/18/21 8:23:00 EDT, Nasal [place], [facility]/pharmacy #[id number], Partial fill upon patient request if the prescription is for a schedule II opioid drug., 1 sprays Nares, Both 2 time... Start Date: 11/18/21 Status: Ordered Flovent Diskus 100 mcg/inh inhalation powder 1 puffs, Inhalation, Daily, # 1 Unknown, 1 Refills, Maintenance, 11/23/21 9:59:00 EDT, [facility]/pharmacy#[id number], 1 puffs Inhalation Daily, 168, cm, 11/22/21 [...] each, 1 Refills, Maintenance, 11/23/21 9:58:00 EDT, [facility]/pharmacy #[id number], 168, cm, 11/22/21 11:46:00 EDT, Height, [...] 1 2 3 Oxygen Saturation [94-100 %] 95 % (12/30/21 10:02 PM) 97 % (12/30/21 8:08 PM) 97 % (12/30/21 7:52 PM) Pulse Rate [55-90 bpm] 68 bpm (12/30/21 10:02 PM) 72 bpm (12/30/21 8:08 PM) 70 bpm (12/30/21 7:52 PM) Blood Pressure [90-138/55-84 mm Hg] 147/78mm Hg *H* (12/30/21 10:02 PM) 153/79mm Hg *H* (12/30/21 8:08 PM) 168/76mm Hg *H* (12/30/21 7:52 PM) Respiratory Rate [16-30 br/min] 20 br/min (12/30/21 10:02 PM) 18 br/min (12/30/21 8:08 PM) 18 br/min (12/30/21 7:52 PM) Temperature [96.8-100.4 DegF] 97.8 DegF (12/30/21 7:52 PM) 97.4 DegF (12/30/21 5:40 PM) Mode of Delivery (Oxygen) Room air (12/30/21 10:02 PM) Room air (12/30/21 8:08 PM) Room air (12/30/21 7:52 PM) Blood pressure sites Arm, left (12/30/21 10:02 PM) Arm, left (12/30/21 8:08 PM) Arm, left (12/30/21 7:52 PM) Temperature Route Oral (12/30/21 7:52 PM) Oral (12/30/21 5:40 PM) Social History Social History Type Response Smoking Status Former smoker; Tobac co user in household: No entered on: 01/17/17 Sex
--- OUTSIDE RECORDS SUMMARY | 2024-01-06 09:17 | XMS_ITS | Continuity of Care Document ---
Author Organization [facility] ter Address [address] [place] [address]- Care Team Providers Care Lab Tech Name Role Phone Cherise Hamm MD Primary Care Physician [phone] Encounter [facility] Date(s): 03/29/22 - 03/30/[address] [address]- Encounter Diagnosis Asymptomatic bacteriuria(Final) - 03/29/22 Discharge Disposition: A-Transfer SNF Attending Physician: Karina Gifford MD Admitting Physician: Karina Gifford MD Referring Physician: Not on Staff, Referring [...] 3 Oxygen Saturation [94-100 %] 98 % (03/30/22 8:05 PM) 99 % (03/30/22 5:20 PM) 95 % (03/30/22 12:06 PM) Pulse Rate [55-90 bpm] 67 bpm (03/30/22 8:05 PM) 64 bpm (03/30/22 5:20 PM) 66 bpm (03/30/22 12:06 PM) Blood Pressure [90-138/55-84 mm Hg] 154/72mm Hg *H* (03/30/22 8:05 PM) 151/67mm Hg *H* (03/30/22 5:20 PM) 152/70mm Hg *H* (03/30/22 12:06 PM) Respiratory Rate [16-30 br/min] 20 br/min (03/30/22 8:05 PM) 21 br/min (03/30/22 5:20 PM) 28 br/min (03/30/22 12:06 PM) Temperature [96.8-100.4 DegF] 97.9 DegF (03/30/22 8:05 PM) 98.1 DegF (03/30/22 5:20 PM) 98.7 DegF (03/30/22 12:06 PM) Liters per Minute 0 L/min (03/30/22 5:20 PM) 0 L/min (03/30/22 12:06 PM) 2 L/min (03/30/22 9:00 AM) Mode of Delivery (Oxygen) Room air (03/30/22 8:05 PM) Room air (03/30/22 5:20 PM) Room air (03/30/22 12:06 PM) Blood pressure sites Arm, right (03/30/22 5:20 PM) Arm, right (03/30/22 12:06 PM) Arm, right (03/30/22 9:00 AM) Temperature Route Oral (03/30/22 8:05 PM) Oral (03/30/22 5:20 PM) Oral (03/30/22 12:06 PM) Social History Social History Type Response Smoking Status Former smoker; Tobac co user in household: No entered on: 01/17/17 Sex Care Team Personnel Name: Cherise Hamm MD Address: [address] [place] [address]
--- OUTSIDE RECORDS SUMMARY | 2024-01-06 09:17 | XMS_ITS | Continuity of Care Document ---
Author Organization [facility] ter Address [address] [place] [address]- Care Team Providers Care Educational Psychology Teacher Name Role Phone Cherise Hamm MD Primary Care Physician Encounter [facility] Date(s): 07/01/22 - 07/01/[address] [address]- Encounter Diagnosis Left Knee pain(Final) - 07/01/22 Discharge Disposition: A-D/C Home Attending Physician: Quintin Maldonado MD Admitting Physician: Quintin Maldonado MD Referring Physician: Not on Staff, Referring [...] Recorded pneumococcal 13-valent vaccine 04/21/15 Recorded Medications Acetaminophen Tablet 650 mg, Tablet, By Mouth, Once, STAT, 07/01/22 11:07:00 EST, Stop date 07/01/22 11:07:00 EST Start Date: 07/01/22 Stop Date: 07/01/22 Status: Completed albuterol-ipratropium 3 mg-0.5 mg/3 ml inhalation solution [...] 0 Refills, Maintenance, 06/19/22 11:05:00 EST, Tablet, [facility]/pharmacy #[id number], Partial fill upon patient request [...] Exam Date Time Procedure Performing Provider Status 07/01/22 10:22 AM Knee 1 or 2 Views Left Reba Johnson; Auth (Verified) Notes: (Knee 1 or 2 Views Left) Reason For Exam: Trauma RESULT: Knee 1 or 2 Views Left Tibia/Fibula 2 Views Left, Knee 1 or 2 Views Left HISTORY: Trauma. COMPARISON: 01/06/2019. 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 No evidence of fracture or dislocation. No osteochondral lesions. Diffuse osteopenia. Mild vascular calcifications. Small phleboliths. Soft tissue edema. IMPRESSION: No acute osseous abnormality. Diffuse osteopenia. I have personally reviewed the images and I agree with this report. WSN: [id number] Ordering Physician: Alvaro Cole Dictated By: Vasu Quinteros MD Dictated Date/Time: 07/01/22 10:44 a Reviewed By: Josse Feng MD Signed By: Josse Feng MD Signed Date/Time: 07/01/22 10:49 am Transcribed By: SOLOMON Transcribed Date/Time: 07/01/22 10:39 am * Exam Date Time Procedure Performing Provider Status 07/01/22 10:22 AM Tibia/Fibula 2 Views Left Kimberly Johnson; Auth (Verified) Notes: (Tibia/Fibula 2 Views Left) Reason For Exam: Trauma RESULT: Tibia/Fibula 2 Views Left Tibia/Fibula 2 Views Left, Knee 1 or 2 Views Left HISTORY: Trauma. COMPARISON: 01/06/2019. 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 No evidence of fracture or dislocation. No osteochondral lesions. Diffuse osteopenia. Mild vascular calcifications. Small phleboliths. Soft tissue edema. IMPRESSION: No acute osseous abnormality. Diffuse osteopenia. I have personally reviewed the images and I agree with this report. WSN: [id number] Ordering Physician: Alvaro Cole Dictated By: Vasu Quinteros MD Dictated Date/Time: 07/01/22 10:44 a Reviewed By: Josse Feng MD Signed By: Josse Feng MD Signed Date/Time: 07/01/22 10:49 am Transcribed By: SOLOMON Transcribed Date/Time: 07/01/22 10:39 am * Exam Date Time Procedure Performing Provider Status 07/01/22 10:22 AM XR Femur 2 Views Left Karina Johnson ; Auth (Verified) Notes: (XR Femur 2 Views Left) Reason For Exam: Trauma RESULT: Femur 2 Views Left Femur 2 Views Left, 4 views HISTORY: Trauma. COMPARISON: None. FINDINGS: Severe left hip and left knee joint osteoarthritis. No evidence of fracture or dislocation. No suspicious lytic or blastic lesions. Moderate vascular calcifications. 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 No acute osseous abnormality. I have personally reviewed the images and I agree with this report. WSN: [id number] Ordering Physician: Alvaro Cole Dictated By: Vasu Quinteros MD Dictated Date/Time: 07/01/22 10:42 a Reviewed By: oJsse Feng MD Signed By: Josse Feng MD Signed Date/Time: 07/01/22 10:47 am Transcribed By: SOLOMON Transcribed Date/Time: 07/01/22 10:35 am * Exam Date Time Procedure Performing Provider Status 07/01/22 10:22 AM XR Femur 2 Views Right Reba Johnson; Auth (Verified) Notes: (XR Femur 2 Views Right) Reason For Exam: Trauma RESULT: Femur 2 Views Right Femur 2 Views Right, 4 views REASON: Trauma COMPARISON: None. FINDINGS: Low penetration of the x-ray beam in the right hip region due to overlying soft tissues. Calcification in the soft tissues of the right buttocks region. Severe right hip and right knee joint osteoarthritis. No evidence of effusion. Mild vascular calcifications. Diffuse osteopenia. IMPRESSION: Limited assessment of the right hip due to overlying soft tissues. Consider repeating the radiograph of the right hip after repositioning or obtaining a CT of the hip. Severe right hip and right knee joint osteoarthritis. I have personally reviewed the images and I agree with this report. WSN: [id number] Ordering Physician: Alvaro Cole Dictated By: Vasu Quinteros MD Dictated Date/Time: 07/01/22 10:34 a Reviewed By: Josse Feng MD Signed By: Josse Feng MD Signed Date/Time: 07/01/22 10:39 am Transcribed By: SOLOMON Transcribed Date/Time: 07/01/22 10:33 am Vital Signs Most recent to oldest [Reference Range]: 1 2 3 Oxygen Saturation [94-100 %] 93 % *L* (07/01/22 4:20 PM) 92 % *L* (07/01/22 3:10 PM) 91 % *L* (07/01/22 11:50 AM) Pulse Rate [55-90 bpm] 78 bpm (07/01/22 4:20 PM) 81 bpm (07/01/22 3:10 PM) 67 bpm (07/01/22 11:50 AM) Blood Pressure [90-138/55-84 mm Hg] 139/61mm Hg *H* (07/01/22 4:20 PM) 144/60mm Hg *H* (07/01/22 3:10 PM) 126/50mm Hg (07/01/22 11:50 AM) Respiratory Rate [16-30 br/min] 20 br/min (07/01/22 4:20 PM) 19 br/min (07/01/22 3:10 PM) 17 br/min (07/01/22 11:50 AM) Temperature [96.8-100.4 DegF] 98.2 DegF (07/01/22 4:20 PM) 98.4 DegF (07/01/22 3:10 PM) 98.2 DegF (07/01/22 11:50 AM) Mode of Delivery (Oxygen) Room air (07/01/22 4:20 PM) Room air (07/01/22 3:10 PM) Room air (07/01/22 11:50 AM) Blood pressure sites Arm, right (07/01/22 4:20 PM) Arm, right (07/01/22 3:10 PM) Arm, right (07/01/22 11:50 AM) Temperature Route Oral (07/01/22 3:10 PM) Oral (07/01/22 11:50 AM) Oral (07/01/22 9:45 AM) Social History Social History Type Response Smoking Status Former smoker; Tobac co user in household: No entered on: 01/17/17 Sex XR Femur - left 2 Views * LIANSPowerscribe , CIS S: Vasu Mares MD: Josse Metz MD: VERIFY Event Display: Result: Authored Date: [id number] Femur 2 Views Left, 4 views HISTORY: Trauma. COMPARISON: None. FINDINGS: Severe left hip and left knee joint osteoarthritis. No evidence of fracture or dislocation. No suspicious lytic or blastic lesions. Moderate vascular calcifications. 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 No acute osseous abnormality. I have personally reviewed the images and I agree with this report. WSN: [id number] Ordering Physician: Alvaro Cole Dictated By: Vasu Quinteros MD Dictated Date/Time: 07/01/22 10:42 a Reviewed By: Josse Feng MD Signed By: Josse Feng MD Signed Date/Time: 07/01/22 10:47 am Transcribed By: SOLOMON Transcribed Date/Time: 07/01/22 10:35 am XR Knee - left 1 or 2 Views * Meghanbe , CIS S: Vasu Mares MD: Josse Metz MD: VERIFY Event Display: Result: Authored Date: [id number] Tibia/Fibula 2 Views Left, Knee 1 or 2 Views Left HISTORY: Trauma. COMPARISON: 01/06/2019. 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 No evidence of fracture or dislocation. No osteochondral lesions. Diffuse osteopenia. Mild vascular calcifications. Small phleboliths. Soft tissue edema. IMPRESSION: No acute osseous abnormality. Diffuse osteopenia. I have personally reviewed the images and I agree with this report. WSN: [id number] Ordering Physician: Alvaro Cole Dictated By: Vasu Quinteros MD Dictated Date/Time: 07/01/22 10:44 a Reviewed By: Josse Feng MD Signed By: Josse Feng MD Signed Date/Time: 07/01/22 10:49 am Transcribed By: SOLOMON Transcribed Date/Time: 07/01/22 10:39 am XR Tibia and Fibula - left 2 Views * TRAV Vu S: Vasu Mares MD: SIGN Josse Feng MD: VERIFY Event Display: Result: Authored Date: [id number] Tibia/Fibula 2 Views Left, Knee 1 or 2 Views Left HISTORY: Trauma. COMPARISON: 01/06/2019. 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 No evidence of fracture or dislocation. No osteochondral lesions. Diffuse osteopenia. Mild vascular calcifications. Small phleboliths. Soft tissue edema. IMPRESSION: No acute osseous abnormality. Diffuse osteopenia. I have personally reviewed the images and I agree with this report. WSN: [id number] Ordering Physician: Alvaro Cole Dictated By: Vasu Quinteros MD Dictated Date/Time: 07/01/22 10:44 a Reviewed By: Josse Feng MD Signed By: Josse Feng MD Signed Date/Time: 07/01/22 10:49 am Transcribed By: SOLOMON Transcribed Date/Time: 07/01/22 10:39 am XR Femur - right 2 Views * TRAV Vu S: Vasu Mares MD: SIGN Josse Feng MD: VERIFY Event Display: Result: Authored Date: [id number] Femur 2 Views Right, 4 views REASON: Trauma COMPARISON: None. FINDINGS: Low penetration of the x-ray beam in the right hip region due to overlying soft tissues. Calcification in the soft tissues of the right buttocks region. Severe right hip and right knee joint osteoarthritis. No evidence of effusion. Mild vascular calcifications. Diffuse osteopenia. IMPRESSION: Limited assessment of the right hip due to overlying soft tissues. Consider repeating the radiograph of the right hip after repositioning or obtaining a CT of the hip. Severe right hip and right knee joint osteoarthritis. I have personally reviewed the images and I agree with this report. WSN: [id number] Ordering Physician: Alvaro Cole Dictated By: Vasu Quinteros MD Dictated Date/Time: 07/01/22 10:34 a Reviewed By: Josse Feng MD Signed By: Josse Feng MD Signed Date/Time: 07/01/22 10:39 am Transcribed By: CSDaniel Transcribed Date/Time: 07/01/22 10:33 am Patient Care team information Care Team Personnel Name: Vernon Estrella RN Position: [facility] RN Member Role: Primary Care Nurse Name: Tk Iqbal RN Position: [facility] RN Supv Member Role: Primary Care Nurse Name: Delaney De Los Santos RN Position: [facility] RN Member Role: Primary Care Nurse Name: Cande Kennedy RN Position: [facility] AMB Nurse Member Role: Primary Care Nurse Name: Batool Summers Position: [facility] RN Member Role: Primary Care Nurse Name: Stephani Wellington RN Position: [facility] RN Member Role: Primary Care Nurse Name: Yanira Trevizo Position: [facility] RN Member Role: Primary Care Nurse Name: Vasyl Catherine RN Position: [facility] RN Member Role: Primary Care Nurse Name: Jenelle Jay RN Position: [facility] RN Member Role: Primary Care Nurse Name: Elizabeth Barrios RN Position: [facility] RN Member Role: Primary Care Nurse Name: Jignesh Stoner RN Position: [facility] RN Member Role: Primary Care Nurse Name: Cherise Hamm MD Position: [facility] Outreach Member Role: PCP Address: Address: [address] [place] [address]- [place] Name: Chyna Aguilar RN Position: [facility] RN Member Role: Primary Care Nurse Address: Address: [address] [place] [address]- [place] Name: John Guaman RN Position: [facility] RN Member Role: Primary Care Nurse Name: Quintin Maldonado MD Position: [facility] ED Medicine MD Member Role: Admitting Physician Address: Address: [address] [place] [address]- [place] Name: Quintin Cooper Position: [facility] ED [place] [facility] Name: Margoth Merritt Position: [facility] ED RN W/OE and Tasks Member Role: Patient Care Provider Name: Alvaro Abernathy Position: S Associate Professional Member Role: ED Physician Computer Support Technician Address: Address: [address] [place] [address] [place] [address]- Care Team Related Persons Name: STEPHANI ADAM Address: home [address] [place] [address] Name: GEETHA NORMAN Address: [place] [address]
--- OUTSIDE RECORDS SUMMARY | 2024-01-06 09:17 | XMS_ITS | Continuity of Care Document ---
Author Organization [facility] ter Address [address] [place] [address]- Care Team Providers Care Elephant Tamer Name Role Phone Cherise Hamm MD Primary Care Physician [phone] [facility]counter [facility] Date(s): 12/04/23 - 12/05/[address] [address]- Discharge Disposition: A-D/C Home Attending Physician: Morenita Jimenez DO Admitting Physician: Morenita Jimenez DO Referring Physician: Not on Staff, Referring [...] 2 Refills, Maintenance, 01/08/23 12:40:00 EDT, [facility], [id number], ICD 10 - [...] Refills, Maintenance, 11/01/22 11:09:00 EDT, [place], [facility]/pharmacy #[id number], Partial fill upon patient [...] 0 Refills, Maintenance, 08/01/22 11:21:00 EST, [place], [id number], Partial fill upon patient request if the prescription is for a schedule II opioid drug., 2 drops Eye, Left 2... Start Date: 08/01/22 Status: Ordered oxybutynin 5 mg/24 hours oral tablet, extended release TAKE 1 TABLET BY MOUTH EVERY DAY AT BEDTIME Start Date: 12/12/22 Status: Ordered Pyridium 200 mg oral tablet 1 tablet = 200 mg, By Mouth, 2 times a day, for 2 days, # 4 tablet, 0 Refills, Acute 12/07/23 0:26:00 EDT, 12/05/23 0:26:00 EDT, Tablet, [id number], Partial fill upon patient request if the prescription is for a schedule II opioid drug., 165,... Start Date: 12/05/23 Stop Date: 12/07/23 Status: Ordered simvastatin 40 mg oral tablet [...] 11/01/22 11:29:00 EDT, Route to Pharmacy Electronically, [id number], Partial fill upon patient request [...] 3 Oxygen Saturation [94-100 %] 95 % (12/05/23 2:29 AM) 97 % (12/04/23 10:09 PM) 98 % (12/04/23 8:57 PM) Pulse Rate [55-90 bpm] 80 bpm (12/05/23 2:29 AM) 73 bpm (12/04/23 10:09 PM) 75 bpm (12/04/23 8:57 PM) Blood Pressure [90-138/55-84 mm Hg] 128/70mm Hg (12/05/23 2:29 AM) 133/71mm Hg (12/04/23 11:39 PM) 165/100mm Hg *H* (12/04/23 8:57 PM) Respiratory Rate [16-30 br/min] 18 br/min (12/05/23 2:29 AM) 17 br/min (12/04/23 8:57 PM) Temperature [96.8-100.4 DegF] 98.3 DegF (12/04/23 8:57 PM) Liters per Minute 2 L/min (12/05/23 2:29 AM) Mode of Delivery (Oxygen) Nasal cannula (12/05/23 2:29 AM) Room air (12/04/23 8:57 PM) Blood pressure sites Arm, left (12/05/23 2:29 AM) Arm, left (12/04/23 11:39 PM) Arm, right (12/04/23 8:57 PM) Temperature Route Oral (12/04/23 8:57 PM) Social History Social History Type Response Smoking Status Former smoker; Tobac co user in household: No entered on: 01/17/17 Sex Note * Morenita Jimenez DO: PERFORM, SIGN, VERIFY Event Display: Patient Education Handout Authored Date: [id number] Patient Care team information Care Team Personnel Name: Tala Curiel LPN Position: [facility] RN Member Role: Primary Care Nurse Name: Tk Iqbal RN Position: [facility] SN RN Member Role: Primary Care Nurse Name: Jovanny Stuart RN Position: [facility] RN Member Role: Primary Care Nurse Name: Delaney De Los Santos RN Position: [facility] SN RN Member Role: Primary Care Nurse Name: Batool Sweet Position: S RN Member Role: Primary Care Nurse Name: Michelle Ricketts Position: S RN Member Role: Primary Care Nurse Name: Lainey Walker LPN Position: S RN Member Role: Primary Care Nurse Name: Yanira Trevizo Position: S RN Member Role: Primary Care Nurse Name: Batool Cervantes RN Position: [facility] RN Member Role: Primary Care Nurse Name: Fern Franklin LPN Position: S RN Member Role: Primary Care Nurse Name: Vasyl Catherine RN Position: S RN Member Role: Primary Care Nurse Name: Eve Masters RN Position: S RN Member Role: Primary Care Nurse Name: Elizabeth Barrios RN Position: S RN Member Role: Primary Care Nurse Name: Jignesh Stoner RN Position: S RN Member Role: Primary Care Nurse Name: Rosy Arriaza RN Position: S RN Member Role: Primary Care Nurse Name: Cherise Hamm MD Position: S Outreach Member Role: PCP Address: Address: [address] [place] [address] [place] [address]- Name: John Guaman RN Position: S RN Member Role: Primary Care Nurse Name: Rocio Andrade RN Position: S RN Member Role: Primary Care Nurse Care Team Related Persons Name: STEPHANI ADAM Address: [address] [address] Name: NATHEN LLOYD
--- OUTSIDE RECORDS SUMMARY | 2024-01-06 09:17 | XMS_ITS | Continuity of Care Document ---
Author Organization [facility] ter Address [address] [place] [id number]- Care Team Providers Care Affirmative Action Specialist Name Role Phone Cherise Hamm MD Primary Care Physician [facility] Date(s): 12/07/22 - 12/08/[address] [address]- Encounter Diagnosis Paresthesias(Final) - 12/07/22 Discharge Disposition: A-D/C Home Attending Physician: Gerber Trinh MD Admitting Physician: Gerber Trinh MD Referring Physician: Not on Staff, Referring [...] 2 Refills, Maintenance, 11/14/22 17:09:00 EDT, Solution, [facility]/pharmacy #[id number], ICD 10 - J45.901, 16... Start [...] 7... Start Date: 11/01/22 Status: Ordered cefpodoxime 100 mg oral tablet 1 tablet = 100 mg, By Mouth, Every 12 hours, for 7 days, # 14 tablet, 0 Refills, Acute 12/15/22 1:36:00 EDT, 12/08/22 1:36:00 EDT, Tablet, [facility]/pharmacy #[id number], Partial fill upon patient request if theprescription is for a schedule II opioid drug., 167... Start Date: 12/08/22 Stop Date: 12/15/22 Status: Ordered clotrimazole 1% topical cream 1 application, Topically, 2 times a day, # 100 Gm, 0 Refills, Maintenance, 12/08/22 3:25:00 EDT, Cream, [facility]/pharmacy #[id number], Partial fill upon patient request if the prescription is for a schedule II opioid drug., 1 application Topically 2 times a day,... Start Date: 12/08/22 Status: Ordered dextromethorphan-guaifenesin 10 mg-100 mg/10 mL oral liquid 10 mL, By Mouth, Every 4 hours, PRN as needed for cough, not to exceed 6 doses/day, # 60 mL, 1 Refills, Maintenance, 11/01/22 11:22:00 EDT, Liquid, [facility]/pharmacy #[id number], Partial fill upon patient request if the prescription is for a schedule II opioid d... Start Date: 11/01/22 Status: Ordered docusate sodium 100 mg/25 mL oral syrup 15 mL = 60 mg, By Mouth, Every 4 hours, PRN for constipation, # 480 mL, 0 Refills, Maintenance, 12/08/22 3:24:00 EDT, Syrup, [facility]/pharmacy #[id number], Partial fill upon patient request if [...] capsule, 2 Refills, Maintenance, 11/14/22 17:09:00 EDT, [facility]/pharmacy #[id number], Partial fill upon patient request... Start [...] 0 Refills, Maintenance, 08/01/22 11:21:00 EST, Solution, [facility]/pharmacy #[id number], Partial fill upon patient request if the prescription is for a schedule II opioid drug., 2 drops Eye, Left 2... Start Date: 08/01/22 Status: Ordered oxybutynin 5 mg/24 hours oral tablet, extended release 1 tablet = 5 mg, By Mouth, Daily at bedtime, # 30 tablet, 0 Refills, Maintenance, 11/26/22 19:42:00EDT, ER Tablet, [facility]/pharmacy #[id number], Partial fill upon patient request if the prescription is for a schedule II opioid drug., 168, cm, 11/25/22 6:47:00... Start Date: 11/26/22 Status: Ordered predniSONE 10 mg oral tablet See Instructions, 2 tabs daily for 3 days, then 1 tab daily for 3 days, then stop, # 9 tablet, 0 Refills, Maintenance, 11/01/22 11:08:00 EDT, Tablet, [id number], Partial fill upon [...] 11/01/22 11:29:00 EDT, Route to Pharmacy Electronically, [facility]/pharmacy #[id number], Partial fill upon patient request if the prescription is for a schedule II opioi... Start Date: 11/01/22 Status: Ordered Tessalon Perles 100 mg oral capsule 2 capsule = 200 mg, By Mouth, 3 times a day, PRN as needed for cough, for 21 days, # 100 capsule, 1Refills, Acute 12/13/22 11:21:00 EDT, 11/01/22 11:21:00 EDT, Capsule, [facility]/pharmacy #[id number], Partial fill upon patient request if [...] 3 Oxygen Saturation [94-100 %] 97 % (12/08/22 4:15 AM) 93 % *L* (12/08/22 3:42 AM) 98 % (12/08/22 12:18 AM) Pulse Rate [55-90 bpm] 69 bpm (12/08/22 4:15 AM) 66 bpm (12/08/22 3:42 AM) 67 bpm (12/08/22 12:18 AM) Blood Pressure [90-138/55-84 mm Hg] 162/73mm Hg *H* (12/08/22 4:15 AM) 139/60mm Hg *H* (12/08/22 3:42 AM) 158/66mm Hg *H* (12/08/22 12:18 AM) Respiratory Rate [16-30 br/min] 20 br/min (12/08/22 4:15 AM) 21 br/min (12/08/22 3:42 AM) 19 br/min (12/08/22 12:18 AM) Temperature [96.8-100.4 DegF] 97.7 DegF (12/08/22 4:15 AM) 98.1 DegF (12/07/22 10:16 PM) Liters per Minute 2 L/min (12/08/22 12:18 AM) 2 L/min (12/07/22 11:18 PM) Mode of Delivery (Oxygen) Room air (12/08/22 4:15 AM) Room air (12/08/22 3:42 AM) Nasal cannula (12/08/22 12:18 AM) Blood pressure sites Arm, left (12/08/22 4:15 AM) Arm, right (12/08/22 3:42 AM) Arm, right (12/08/22 12:18 AM) Temperature Route Oral (12/08/22 4:15 AM) Oral (12/07/22 10:16 PM) Social History Social History Type Response Smoking Status Former smoker; Tobac co user in household: No entered on: 01/17/17 Sex Note * Uma Echols MD: PERFORM Event Display: Patient Education Leaflets Authored Date: [id number] Bladder Infection,??Female (Adult) ?? [id number] Bladder Infection,??Female (Adult) Urine normally doesn't have any germs (bacteria) in it. But bacteria can get into the urinary tractfrom the skin around the rectum. Or they can travel in the blood from other parts of the body. Oncethey are in your urinary tract, they can cause infection in these areas: ??? The urethra (urethritis) ??? The bladder (cystitis) ??? The kidneys (pyelonephritis) The most common place for an infection is in the bladder. This is called a bladder infection. This is one of the most common infections in women because women have a shorter urethra than men. Bacteria have a shorter distance to travel to reach the bladder.. Women who have gone through menopause also lose the protection from estrogen that lowers the chance of getting a UTI. And some women are at higher risk because of their genes. Most bladder infections are easily treated. They are not serious unless the infection spreads to the kidney. The terms bladder infection, UTI, and cystitis are often used to describe the same thing. But they are not always the same. Cystitis is an inflammation of the bladder. The??most common cause of cystitis is an infection. Symptoms The infection causes inflammation in the urethra and bladder. This causes many of the symptoms. Themost common symptoms of a bladder infection are: ??? Pain or burning when urinating ??? Having to urinate more often than normal ??? Urgent need to urinate ??? Only a small amount of urine comes out ??? Blood in urine ??? Belly (abdominal) discomfort. This is often in the lower belly above the pubic bone. ??? Lower back pain ??? Cloudy urine ??? Strong- or bad-smelling urine ??? Unable to urinate(urinary retention) ??? Unable to hold urine in (urinary incontinence) ??? Fever ??? Loss of appetite ??? Confusion (in older adults) ?? Causes Bladder infections are not contagious. You can't get one from someone else, from a toilet seat, or from sharing a bath. The most common cause of bladder infections is bacteria from the bowels. The bacteria get onto the skin around the opening of the urethra. From there, they can get into the urine. Then they travel upto the bladder, causing inflammation and infection. This often happens because of: ??? Wiping incorrectly after urinating. Always wipe from front to back. ??? Bowel incontinence ??? . Duringpregnancy urinary tract changes raise the risk for infection. ??? Procedures such as having a catheter put in ??? Older age ??? Not emptying your bladder. This can give bacteria a chance to grow in your urine. ??? Fluid loss (dehydration) ??? Constipation ??? Having sex ??? Using a diaphragm for control? Treatment Bladder infections are diagnosed by a urine test and urine culture. They are treated with antibiotics. They often??clear up quickly without problems. Treatment helps prevent a more serious kidney infection. ?? Medicines Medicines can help in the treatment of a bladder infection: ??? Take antibiotics until they are used up, even if you feel better. It's important to finish them to make sure the infection has cleared.??? You can use acetaminophen or ibuprofen for pain, fever, or discomfort, unless another medicine was prescribed. If you have long-term (chronic) liver or kidney disease, talk with your healthcare??provider before using??these medicines. Also talk with your provider if you've ever had a stomach ulcer or GI (gastrointestinal) bleeding, or are taking blood-thinner medicines. ??? If you are given??phenazopydridine to reduce burning with urination, it will make your urine a bright orange color. This can stain clothing. ?? Care and prevention These self-care steps can help prevent future infections: ??? Drink plenty of fluids. This helps toprevent dehydration and flush out your bladder. Do this??unless you must restrict fluids for other health reasons, or your healthcare provider told you not to. ??? Clean yourself correctly after going to the bathroom. Wipe from front to back after using the toilet. This helps prevent the spread of bacteria. ??? Urinate more often. Don't try to hold urine in for a long time. ??? Wear loose-fittingclothes and cotton underwear. Don't wear tight- fitting pants. ??? Improve your diet and prevent constipation. Eat more fresh fruits and vegetables, and??fiber. Eat less junk foods and fatty foods. ??? Don't have sex until your symptoms are gone. ??? Don't have caffeine, alcohol, and spicy foods. These can irritate your bladder. ??? Urinate right after you have sex to flush out your bladder. ??? If you use control pills and have frequent bladder infections, discuss it with your healthcare provider. ?? Follow-up care Call your healthcare provider if all symptoms are not gone after 3 days of treatment. This is especially important if you have repeat infections. If a culture was done, you will be told if your treatment needs to be changed. If directed, you cancall??to find out the results. If X-rays were done, you will be told if the results will affect your??treatment. ?? Call 911 Call 911 if any of the following occur: ??? Trouble breathing ??? Hard to wake up or??confusion ???Fainting (loss of consciousness) ??? Fast heart rate ?? When to get medical advice Call your healthcare provider right away if any of these occur: ??? Fever of 100.4??F (38.0??C) or higher, or as directed by your healthcare provider ??? Symptoms are not better??after 3 days of treatment ??? Symptoms get worse or you have new symptoms ??? Back or belly pain that gets worse ??? Repeated vomiting, or unable to keep medicine down ??? Weakness or dizziness ??? Vaginal discharge ??? Pain, redness, or swelling in the outer vaginal area (labia) ?? Last Reviewed Date: 2021 ?? [id number] [employer]. All rights reserved. This information is not intended as a substitute for professional medical care. Always follow your healthcare professional's instructions. ?? * Uma Echols MD: PERFORM Event Display: Patient Education Leaflets Authored Date: [id number] Paresthesia ?? [id number] Paresthesia Paresthesia is a burning or prickling feeling that's sometimes felt in the hands, arms, legs or feet. It can also occur in other parts of the body. It can also feel like tingling or numbness, skin crawling, or itching. The feeling is not comfortable, but it's not painful. (The pins and needles feeling that happens when a foot or hand falls asleep is a temporary paresthesia.) Paresthesias that last or come and go may be caused by medical issues that need to be treated. These include stroke, a bulging disk pressing on a nerve, a trapped nerve, vitamin deficiencies, uncontrolled diabetes, alcohol abuse, or even certain medicines. Tests are often done. These tests may include blood tests, X-ray, CT scan, nerve conduction studies(NCS), or a muscle test (electromyography). Depending on the cause, treatment may include physical therapy. Home care ??? Tell your healthcare provider about all medicines you take. This includes prescription and ngox-wfu-cglfjuy medicines, vitamins, and herbs. Ask if any of the medicines may be causing your problems. Don't make any changes to prescription medicines without talking to your healthcare provider first. ??? You may be prescribed medicines to help relieve the tingling feeling or for pain. Take all medicines as directed. ??? A numb hand or foot may be more prone to injury. To help protect it: o Always use oven mitts. o Test water with an unaffected hand or foot. o Use caution when trimming nails. File sharp areas. o Wear shoes that fit well to avoid pressure points, blisters, and ulcers. o Inspect your hands and feet carefully (including the soles of your feet and between your toes) daily. If you see red areas, sores, or other problems, tell your healthcare provider. ?? Follow-up care Follow up with your healthcare provider, or as advised. You may need more testing or evaluation. ?? When to get medical advice Call your healthcare provider right away if any of these occur: ??? Numbness or weakness of the face, one arm, or one leg ??? Slurred speech, confusion, trouble speaking, walking, or seeing ??? Severe headache, fainting spell, dizziness, or seizure ??? Chest, arm, neck, or upper back pain ??? Loss of bladder or bowel control ??? Open wound with redness, swelling, or pus ?? Last Reviewed Date: 2021 ?? [id number] [employer]. All rights reserved. This information is not intended as a substitute for professional medical care. Always follow your healthcare professional's instructions. ?? Patient Care team information Care Team Personnel Name: Alvaro Oliver RN Position: [facility] RN Member Role: Primary Care Nurse Name: Tk Iqbal RN Position: [facility] RN Member Role: Primary Care Nurse Name: Jovanny Stuart RN Position: [facility] RN Member Role: Primary Care Nurse Name: Delaney De Los Santos RN Position: [facility] SN RN Member Role: Primary Care Nurse Name: Michelle Ricketts Position: [facility] RN Member Role: Primary Care Nurse Name: Cande Kennedy RN Position: [facility] AMB Nurse Member Role: Primary Care Nurse Name: Batool Summers Position: [facility] RN Member Role: Primary Care Nurse Name: Lainey Walker Position: [facility] AMB Nurse Member Role: Primary Care Nurse Name: Yanira Trevizo Position: [facility] RN Member Role: Primary Care Nurse Name: Batool Cervantes RN Position: [facility] RN Member Role: Primary Care Nurse Name: Rafael Hicks RN Position: [facility] RN Member Role: Primary Care Nurse Name: Batsheva Bernard RN Position: [facility] RN Member Role: Primary Care Nurse Name: Fern Franklin LPN Position: [facility] RN Member Role: Primary Care Nurse Name: Vasyl Catherine RN Position: [facility] RN Member Role: Primary Care Nurse Name: Eve Masters RN Position: [facility] RN Member Role: Primary Care Nurse Name: Jenelle Jay RN Position: [facility] RN Member Role: Primary Care Nurse Name: Elizabeth Barrios RN Position: [facility] RN Member Role: Primary Care Nurse Name: Jignesh Stoner RN Position: [facility] RN Member Role: Primary Care Nurse Name: Kady Garcias RN Position: [facility] RN Member Role: Primary Care Nurse Name: Cherise Hamm MD Position: [facility] Outreach Member Role: PCP Address: Address: [address] [place] [address]- Name: Chyna Aguilar RN Position: [facility] RN Member Role: Primary Care Nurse Address: Address: [address] [place] [address]- Name: John Guaman RN Position: [facility] RN Member Role: Primary Care Nurse Name: Amada Rodriguez RN Position: [facility] ED RN W/OE and Tasks Member Role: Patient Care Provider Name: Maria De Jesus Swan Position: [facility] ED TA [facility] Member Role: Commercial Sales Director Name: Gerber Trinh MD Position: [facility] ED Medicine MD Member Role: ED Attending Physician Address: Address: [address] [place] [address]- Name: Keshia Guerrero RN Position: [facility] ED RN W/OE and Tasks Member Role: Patient Care Provider Name: Uma Echols MD Position: [facility] Resident Member Role: ED Resident Address: Address: [address] [place] [address]- Care Team Related Persons Name: STEPAHNI ADAM Address: [address] [address] Name: NATHEN LLOYD
--- OUTSIDE RECORDS SUMMARY | 2024-01-06 09:17 | XMS_ITS | Continuity of Care Document ---
Author Organization [facility] Address [address] [place] [address] [address] [place] [address]- Care Team Providers Care Manager Medical Name Role Phone Cherise Hamm MD Primary Care Physician [phone] [facility]counter [facility] Date[facility]s): 05/04/22 - 08/05/22 [facility] [address] [place] [address] [address] [place], [place] [address] Attending Physician: Rufus Ambrocio MD [...] 0 Refills, Maintenance, 08/01/22 11:20:00 EST, Solution, [facility]/pharmacy #[id number], Partial fill upon patient request if the prescription is for a schedule II opioid drug., 166, cm, 01... Start Date: 08/01/22 Status: Ordered albuterol CFC free 90 mcg/inh inhalation aerosol 1, puffs, Inhalation, 4 times a day, PRN, # 6.7 Gm, Refills 0, Tot. Refills 0, Maintenance, 08/01/22 11:20:00 EST, Aerosol, Route to Pharmacy Electronically, [id number], [facility]/pharmacy #[id number], 166, cm, 08/01/22 8:16:00 EST, Heig... Start Date: 08/01/22 Status: Ordered albuterol-ipratropium 3 mg-0.5 mg/3 ml inhalation solution 3 mL, BAND Nebulizer, 4 times a day, PRN Wheezing/Shortness of Breath, # 90 mL, 0 Refills, Maintenance, 07/13/22 12:36:00 EST, Inhalation Solution, [facility], Partial fill upon patientrequest if the [...] 0 Refills, Maintenance, 07/13/22 13:54:00 EST, Powder, [facility], Partial fill upon patient request [...] 0 Refills, Maintenance, 08/01/22 11:21:00 EST, Solution, [facility]/pharmacy #[id number], Partial fill upon patient [...] Team Personnel Name: Tk Iqbal RN Position: [facility] RN Supv Member Role: Primary Care Nurse Name: Delaney De Los Santos RN Position: [facility] RN Member Role: Primary Care Nurse Name: Cande Kennedy RN Position: [facility] KRISTIN Nurse Member Role: Primary Care Nurse Name: Batool Summers Position: [facility] RN Member Role: Primary Care Nurse Name: Yanira Trevizo Position: [facility] RN Member Role: Primary Care Nurse Name: Rafael Hicks RN Position: [facility] RN Member Role: Primary Care Nurse Name: Vasyl Catherine RN Position: [facility] RN Member Role: Primary Care Nurse Name: Eve Masters RN Position: [facility] RN Member Role: Primary Care Nurse Name: Jenelle Jay RN Position: [facility] RN Member Role: Primary Care Nurse Name: Elizabeth Barrios RN Position: [facility] RN Member Role: Primary Care Nurse Name: Jignesh Stoner RN Position: [facility] RN Member Role: Primary Care Nurse Name: Cherise Hamm MD Position: [facility] Outreach Member Role: PCP Address: Address: [address] [place] [address]- Name: Chyna Aguilar RN Position: [facility] RN Member Role: Primary Care Nurse Address: Address: [address] [place] [address]- Name: John Guaman RN Position: [facility] RN Member Role: Primary Care Nurse Care Team Related Persons Name: STEPHANI ADAM Address: home [address] [place] [id number] Name: GEETHA NORMAN Address: [place] [address]
--- OUTSIDE RECORDS SUMMARY | 2024-01-06 09:17 | XMS_ITS | Continuity of Care Document ---
Author Organization [facility] ter Address [address] [place] [id number]- Care Team Providers Care Registered Radiation Therapist Name Role Phone Hansel GONZALEZ, Cherise Bolden Primary Care Physician Encounter [facility] [place] [facility] Date(s): 06/29/21 - 07/02/[address] [address] Discharge Disposition: A-D/C Home Attending Physician: Destiny Sam MD Admitting Physician: Lisy Wallace MD Referring Physician: Not on Staff, Referring MD Allergies, Adverse Reactions, Alerts Substance Reaction Severity Status Silvadene skin alicea unsure Active Medications acetaminophen 325 mg oral tablet 650 mg, 2, tablet, By Mouth, Every 4 hours, PRN, # 30 tablet, Refills 0, Tot. Refills 0, Maintenance, as needed for pain, 01/06/19 19:36:31 EDT, Print Requisition Start Date: 01/06/19 Status: Ordered Acetaminophen Tablet 650 mg, Tablet, By Mouth, Every 4 hours, PRN for Pain , Mild, Temperature Greater than 100.5, Routine, 06/29/21 23:52:00 EST Start Date: 06/29/21 Stop Date: 07/03/21 Status: Discontinued Aspirin Low Dose 81 mg oral delayed [...] oral capsule 300 mg, Capsule, By Mouth, 07/02/21 15:00:00 EST Start Date: 07/02/21 Stop Date: 07/02/21 Status: Completed insulin lispro 100 u/ml subcutaneous [...] oral tablet 5 mg, Tablet, By Mouth, 07/02/21 9:00:00 EST Start Date: 07/02/21 Stop Date: 07/02/21 Status: Completed metoprolol 50 mg oral tablet 50 mg, Tablet, By Mouth, 07/02/21 9:00:00 EST Start Date: 07/02/21 Stop Date: 07/02/21 Status: Completed Metoprolol Tartrate 50 mg oral [...] Start Date: 06/30/21 Status: Ordered nystatin topical 676405 u/gm powder 1 application, Topically, 2 times [...] mellitus(Confirmed) Active Obesity(Confirmed) Active Postmenopausal bleeding(Confirmed) Active Results Orders for Microbiology Reports Name Date Urine Culture (URINE CULTURE) 06/29/21 Blood Culture 06/29/21 Blood Culture #2 06/29/21 Microbiology Reports TEST:Urine Culture STATUS:Auth (Verified) BODY SITE: SOURCE:URINE COLLECTED DATE/TIME:06/29/21 5:51 PM Urine Culture SPECIMEN DESCRIPTION : URINE CLEAN CATCH/MIDSTREAM SPECIAL REQUESTS : NONE CULTURE : Mixed bacterial carlito, indicative of urogenital contamination. REPORT STATUS : FINAL 07/01/2021 TEST:Blood Culture, Second Order STATUS:Unauthenticated BODY SITE: SOURCE:Blood COLLECTED DATE/TIME:06/29/21 4:28 PM Blood Culture, Second Order SPECIMEN DESCRIPTION : BLOOD SITE UNKNOWN SPECIAL REQUESTS : NONE CULTURE : NO GROWTH 3 DAYS REPORT STATUS : PRELIMINARY REPORT TEST:Blood Culture STATUS:Unauthenticated BODY SITE: SOURCE:Blood COLLECTED DATE/TIME:06/29/21 3:59 PM Blood Culture SPECIMEN DESCRIPTION : BLOOD SITE UNKNOWN SPECIAL REQUESTS : NONE CULTURE : NO GROWTH 3 DAYS REPORT STATUS : PRELIMINARY REPORT Radiology Reports * Exam Date Time Procedure Performing Provider Status 06/29/21 3:41 PM Chest 2 Views Frontal and Lat Tarik Locke; Auth (Verified) Notes: (Chest 2 Views Frontal and Lat) Reason For Exam: COPD RESULT: Chest 2 Views Frontal and Lat Chest 2 Views Frontal and Lat Hx of Present Illness: Pt found to be hyperglyemic at dayprogram activity. Per EMS Glucose of 330. Pt states she has had difficulty regulating and managing her glucose levels since being in a rehab.;Reason: COPD; Clinical Question(s): Pneumonia COMPARISON: 05/22/2011 FINDINGS: LUNGS AND PLEURA: Minimal pulmonary vascular congestion is present. There are no focal infiltrates. No pleural effusion. No pneumothorax. HEART, MEDIASTINUM AND KOLTON: Heart is normal in size. Normal upper mediastinal and hilar contour. BONES AND SOFT TISSUES: Deformity of the left humeral head and glenoid is seen, chronic. There are no acute osseous abnormalities. Impression: Pulmonary vascular congestion. I have personally reviewed the images and I agree with this report. WSN: [id number] Ordering Physician: Romain Ruelas Dictated By: nAanda Sepulveda DO Dictated Date/Time: 06/29/21 3:48 pm Reviewed By: Violet Ureña MD Signed By: Violet Ureña MD Signed Date/Time: 06/29/21 3:53 pm Transcribed By: SOLOMON Transcribed Date/Time: 06/29/21 3:43 pm Vital Signs Most recent to oldest [Reference Range]: 1 2 3 Oxygen Saturation [94-100 %] 96 % (07/02/21 3:46 PM) 95 % (07/02/21 7:09 AM) 94 % (07/02/21 3:00 AM) Pulse Rate [55-90 bpm] 67 bpm (07/02/21 3:46 PM) 74 bpm (07/02/21 10:35 AM) 74 bpm (07/02/21 7:09 AM) Blood Pressure [90-138/55-84 mm Hg] 147/72mm Hg *H* (07/02/21 3:46 PM) 146/73mm Hg *H* (07/02/21 10:35 AM) 146/73mm Hg *H* (07/02/21 10:35 AM) Respiratory Rate [16-30 br/min] 18 br/min (07/02/21 3:46 PM) 18 br/min (07/02/21 3:00 PM) 18 br/min (07/02/21 2:12 PM) Temperature [96.8-100.4 DegF] 98.1 DegF (07/02/21 3:46 PM) 98.0 DegF (07/02/21 7:09 AM) 97.5 DegF (07/02/21 3:00 AM) Mode of Delivery (Oxygen) Room air (07/02/21 3:46 PM) Room air (07/02/21 7:09 AM) Room air (07/02/21 3:00 AM) Blood pressure sites Arm, left (07/02/21 3:46 PM) Arm, right (07/02/21 7:09 AM) Arm, right (07/02/21 3:00 AM) Temperature Route Oral (07/02/21 3:46 PM) Oral (07/02/21 7:09 AM) Oral (07/02/21 3:00 AM) Social History Social History Type Response Smoking Status Former smoker; Tobac co user in household: No entered on: 01/17/17 Sex
--- OUTSIDE RECORDS SUMMARY | 2024-01-06 09:17 | XMS_ITS | Continuity of Care Document ---
Author Organization [facility] ter Address [address] [place] [address]- Care Team Providers Care Supervisor Sewing Department Name Role Phone Hansel GONZALEZ, Cherise Bolden Primary Care Physician [phone] Encounter [facility] Date(s): 09/06/22 - 09/06/[address] [address]- Discharge Disposition: A-D/C Home Attending Physician: Burton [...] 0 Refills, Maintenance, 08/01/22 11:20:00 EST, Solution, [facility]/pharmacy #[id number], Partial fill upon patient request if the prescription is for a schedule II opioid drug., 166, cm, 01... Start Date: 08/01/22 Status: Ordered albuterol CFC free 90 mcg/inh inhalation aerosol 1, puffs, Inhalation, 4 times a day, PRN, # 6.7 Gm, Refills 0, Tot. Refills 0, Maintenance, 08/01/22 11:20:00 EST, Aerosol, Route to Pharmacy Electronically, [id number], [facility]/pharmacy #[id number], 166, cm, 08/01/22 8:16:00 EST, [place]... Start Date: 08/01/22 Status: Ordered albuterol-ipratropium 3 mg-0.5 mg/3 ml inhalation solution 3 mL, BAND Nebulizer, 4 times a day, PRN Wheezing/Shortness of Breath, # 90 mL, 0 Refills, Maintenance, 07/13/22 12:36:00 EST, Inhalation Solution, [facility], Partial fill upon patientrequest if [...] 0 Refills, Maintenance, 07/13/22 13:54:00 EST, Powder, [facility], Partial fill upon patient request [...] 0 Refills, Maintenance, 08/01/22 11:21:00 EST, Solution, [facility]/pharmacy #[id number], Partial fill upon patient request [...] 3 Oxygen Saturation [94-100 %] 97 % (09/06/22 5:27 PM) 94 % (09/06/22 11:43 AM) Pulse Rate [55-90 bpm] 87 bpm (09/06/22 5:27 PM) 88 bpm (09/06/22 11:43 AM) Blood Pressure [90-138/55-84 mm Hg] 147/97mm Hg *H* (09/06/22 5:27 PM) 136/68mm Hg (09/06/22 11:43 AM) Respiratory Rate [16-30 br/min] 18 br/min (09/06/22 6:59 PM) 19 br/min (09/06/22 5:27 PM) 16 br/min (09/06/22 5:20 PM) Temperature [96.8-100.4 DegF] 98.1 DegF (09/06/22 5:27 PM) 97.8 DegF (09/06/22 11:43 AM) Mode of Delivery (Oxygen) Room air (09/06/22 5:27 PM) Room air (09/06/22 11:43 AM) Blood pressure sites Arm, left (09/06/22 5:27 PM) Temperature Route Oral (09/06/22 5:27 PM) Oral (09/06/22 11:43 AM) Social History Social History Type Response Smoking Status Former smoker; Tobac co user in household: No entered on: 01/17/17 Sex Note * Michelle Joseph DO: PERFORM Event Display: Patient Education Leaflets Authored Date: [id number] Molina Catheter Care ?? [id number] Molina Catheter Care A Molina catheter is [...] fainting ?? Last Reviewed Date: 2021 ?? [id number] [employer]. All rights reserved. This information is not intended as a substitute for professional medical care. Always follow your healthcare professional's instructions. ?? Patient Care team information Care Team Personnel Name: Tk Iqbal RN Position: [facility] RN Supv Member Role: Primary Care Nurse [...] COUNTY Outreach Member Role: PCP Address: Address: [address] [place] [address] Name: Chyna Aguilar RN Position: [facility] RN Member Role: Primary Care Nurse Address: Address: [address] [place] [address]- [place] Name: John Guaman RN Position: [facility] RN Member Role: Primary Care Nurse Name: Cherise Bundy Position: [facility] ED RN W/OE and Tasks Member Role: Patient Care Provider Name: Burton Perez MD Position: [facility] ED Medicine MD Member Role: Admitting Physician Address: Address: [address] [place] [address] Department [place] [address]- Name: Michelle Joseph DO Position: [facility] Resident Member Role: ED Resident Address: Address: [address] [place] [address] [place] [address]- Name: Rosy Christianson RN Position: [facility] ED RN W/OE and Tasks Member Role: Patient Care Provider Name: Meeta Baez Position: [facility] ED TA [facility] Care Team Related Persons Name: STEPHANI ADAM Address: home [address] [place] [address] Name: GEETHA NORMAN Address: [place] [address]
--- OUTSIDE RECORDS SUMMARY | 2024-01-06 09:17 | XMS_ITS | Continuity of Care Document ---
Author Organization [facility] Address [address] [place] [address]- Care Team Providers Care Tree Killer Name Role Phone Cherise Hamm MD Primary Care Physician Encounter [facility] Date(s): 01/04/23 - 02/04/[address] [address] Attending Physician: Cherise Hamm MD Admitting Physician: Cherise Hamm MD Referring Physician: Burton Chapman DO Allergies, [...] 2 Refills, Maintenance, 01/08/23 12:40:00 EDT, Solution, [facility]/pharmacy #[id number], ICD 10 - J45.901, [...] 3 Refills, Maintenance, 11/01/22 11:09:00 EDT, Powder, [facility]/pharmacy #[id number], Partial fill upon patient request if the prescription is for a schedule II opioid drug., 1 puffs Inhalation Daily, 167.64, cm, 11/01/22 7... Start Date: 11/01/22 Status: Ordered docusate-senna 50 mg-187 mg oral tablet 2 tablet, By Mouth, Daily at bedtime, PRN Constipation, for 30 days, # 60 tablet, 0 Refills, Acute 02/12/23 11:53:00 EDT, 01/13/23 11:53:00 EDT, Tablet, [facility]/pharmacy #[id number], Partial fill upon patient [...] 0 Refills, Maintenance, 08/01/22 11:21:00 EST, Solution, [facility]/pharmacy #[id number], Partial fill upon patient [...] 11/01/22 11:29:00 EDT, Route to Pharmacy Electronically, [facility]/pharmacy #[id number], Partial fill upon patient [...] Team Personnel Name: Alvaro Oliver RN Position: [facility] RN Member Role: Primary Care Nurse Name: Tala Curiel LPN Position: [facility] RN Member Role: Primary Care Nurse Name: Tk Iqbal RN Position: [facility] RN Member Role: Primary Care Nurse Name: Jovanny Stuart RN Position: [facility] RN Member Role: Primary Care Nurse Name: Delaney De Los Santos RN Position: [facility] RN Member Role: Primary Care Nurse Name: Michelle Ricketts Position: [facility] RN Member Role: Primary Care Nurse Name: Cande Kennedy RN Position: [facility] AMB Nurse Member Role: Primary Care Nurse Name: Batool Summers Position: [facility] RN Member Role: Primary Care Nurse Name: Lainey Walker LPN Position: [facility] RN Member Role: Primary Care Nurse Name: Yanira Trevizo Position: [facility] RN Member Role: Primary Care Nurse Name: Batool Cervantes RN Position: [facility] RN Member Role: Primary Care Nurse Name: Batsheva Bernard RN Position: [facility] RN Member Role: Primary Care Nurse Name: Fern Franklin LPN Position: [facility] RN Member Role: Primary Care Nurse Name: Vasyl Catherine RN Position: [facility] RN Member Role: Primary Care Nurse Name: Eve Masters RN Position: [facility] RN Member Role: Primary Care Nurse Name: Elizabeth Barrios RN Position: [facility] RN Member Role: Primary Care Nurse Name: Jignesh Stoner RN Position: S RN Member Role: Primary Care Nurse Name: Kady Garcais RN Position: S RN Member Role: Primary Care Nurse Name: Rosy Arriaza RN Position: S RN Member Role: Primary Care Nurse Name: Cherise Hamm MD Position: [facility] Outreach Member Role: PCP Address: Address: [address] [place] [address]- Name: Chyna Aguilar RN Position: [facility] RN Member Role: Primary Care Nurse Address: Address: [address] [place] [address]- Name: John Guaman RN Position: [facility] RN Member Role: Primary Care Nurse Name: Rocio Andrade RN Position: S RN Member Role: Primary Care Nurse Care Team Related Persons Name: STEPHANI ADAM Address: [address] [address] Name: NATHEN LLOYD
--- OUTSIDE RECORDS SUMMARY | 2024-01-06 09:17 | XMS_ITS | Continuity of Care Document ---
Author Organization [facility] ter Address [address] [place] [address]- Care Team Providers Care Import/Export Clerk Name Role Phone Cherise Hamm MD Primary Care Physician Encounter [facility] Date(s): 07/19/22 - 07/19/[address] [address]- Encounter Diagnosis Molina catheter problem(Final) - 07/19/22 Discharge Disposition: A-D/C Home Attending Physician: Caitie Gonzalez MD Admitting Physician: Caitie Gonzalez MD Referring Physician: Not on Staff, Referring [...] wheezing, # 50 each, 0 Refills, Maintenance, 07/14/22 20:49:00 EST, Solution, [facility]/pharmacy #[id number], Partial fill upon patient request if the prescription is for a schedule II opioid drug., 168, cm, 01... Start Date: 07/14/22 Status: Ordered albuterol CFC free 90 mcg/inh inhalation aerosol 1, puffs, Inhalation, 4 times a day, PRN, # 6.7 Gm, Refills 0, Tot. Refills 0, Maintenance, 07/13/22 12:42:00 EST, Aerosol, Route to Pharmacy Electronically, [id number], [facility], 168, cm, 07/12/22 18:17:00 ES... Start Date: 07/13/22 Status: Ordered albuterol-ipratropium 3 mg-0.5 mg/3 ml inhalation solution 3 mL, BAND Nebulizer, 4 times a day, PRN Wheezing/Shortness of Breath, # 90 mL, 0 Refills, Maintenance, 07/13/22 12:36:00 EST, Inhalation Solution, [facility], Partial fill upon patientrequest if the [...] 0 Refills, Maintenance, 07/13/22 13:54:00 EST, Powder, [facility], Partial fill upon patient request [...] 3 Oxygen Saturation [94-100 %] 99 % (07/19/22 7:51 AM) 4 % *L* (07/19/22 6:29 AM) 99 % (07/19/22 3:05 AM) Pulse Rate [55-90 bpm] 80 bpm (07/19/22 7:51 AM) 79 bpm (07/19/22 6:29 AM) 72 bpm (07/19/22 3:05 AM) Blood Pressure [90-138/55-84 mm Hg] 152/74mm Hg *H* (07/19/22 7:51 AM) 132/89mm Hg (07/19/22 3:05 AM) Respiratory Rate [16-30 br/min] 14 br/min *L* (07/19/22 7:51 AM) 19 br/min (07/19/22 6:29 AM) 19 br/min (07/19/22 3:05 AM) Temperature [96.8-100.4 DegF] 97.4 DegF (07/19/22 7:51 AM) 97.6 DegF (07/19/22 3:05 AM) Liters per Minute 1 L/min (07/19/22 7:51 AM) 2 L/min (07/19/22 6:29 AM) Mode of Delivery (Oxygen) Nasal cannula (07/19/22 7:51 AM) Nasal cannula (07/19/22 6:29 AM) Room air (07/19/22 3:05 AM) Blood pressure sites Arm, left (07/19/22 7:51 AM) Arm, left (07/19/22 6:29 AM) Arm, left (07/19/22 3:05 AM) Temperature Route Oral (07/19/22 7:51 AM) Oral (07/19/22 3:05 AM) Social History Social History Type Response Smoking Status Former smoker; Tobac co user in household: No entered on: 01/17/17 Sex Patient Care team information Care Team Personnel Name: Tk Iqbal RN Position: [facility] RN Supv Member Role: Primary Care Nurse Name: Delaney De Los Santos RN Position: [facility] RN Member Role: Primary Care Nurse Name: Cande Kennedy RN Position: [facility] AMB Nurse Member Role: Primary Care Nurse Name: Batool Summers Position: [facility] RN Member Role: Primary Care Nurse Name: Stephani Wellington RN Position: [facility] RN Member Role: Primary Care Nurse Name: Yanira Trevizo Position: S RN Member Role: Primary Care Nurse Name: Vasyl Catherine RN Position: [facility] RN Member Role: Primary Care Nurse Name: Eve Masters RN Position: [facility] RN Member Role: Primary Care Nurse Name: Jenelle Jay RN Position: [facility] RN Member Role: Primary Care Nurse Name: Elizabeth Barrios RN Position: [facility] RN Member Role: Primary Care Nurse Name: Jignesh Stoner RN Position: [facility] RN Member Role: Primary Care Nurse Name: Cherise Hamm MD Position: [facility] Outreach Member Role: PCP Address: Address: [address] [place], [place] [address], [place] [address]- [place] Name: Chyna Aguilar RN Position: [facility] RN Member Role: Primary Care Nurse Address: Address: [address] [place] [address]- [place] Name: John Guaman RN Position: [facility] RN Member Role: Primary Care Nurse Name: Moira Phillips RN Position: [facility] ED RN W/OE and Tasks Member Role: Patient Care Provider Name: Caitie Gonzalez MD Position: [facility] ED Medicine MD Member Role: Admitting Physician Address: Address: [address] [place] [address]- [place] Name: Willow Schmidt Position: [facility] ED TA [facility] Name: Irma Cole DO Position: [facility] Resident Member Role: ED Resident Address: Address: [address] [place] [address]- Care Team Related Persons Name: STEPHANI ADAM Address: home [address] [place] [address] Name: GEETHA NORMAN Address: [place] [address]
--- OUTSIDE RECORDS SUMMARY | 2024-01-06 09:18 | XMS_ITS | Continuity of Care Document ---
Author Organization [facility] ter Address [address] [place] [id number]- Care Team Providers Care Controller Operations And Hr Manager Name Role Phone Cherise Hamm MD Primary Care Physician [place] [facility] [place]12[place] - 09/13/[address] [address]- Encounter Diagnosis Acute on chronic diastolic CHF (congestive heart failure)(Final) - 09/09/22 COPD exacerbation(Final) - 09/09/22 Cellulitis of lower leg(Final) - 09/09/22 Discharge Disposition: A-D/C Home Attending Physician: Sheron Lopez MD Admitting Physician: Destiny Sam MD Referring Physician: Not on Staff, Referring [...] 0 Refills, Maintenance, 08/01/22 11:20:00 EST, Solution, [facility]/pharmacy #[id number], Partial fill upon patient request if the prescription is for a schedule II opioid drug., 166, cm, ... Start Date: 08/01/22 Status: Ordered albuterol CFC free 90 mcg/inh inhalation aerosol 1, puffs, Inhalation, 4 times a day, PRN, # 6.7 Gm, Refills 0, Tot. Refills 0, Maintenance, 08/01/22 11:20:00 EST, Aerosol, Route to Pharmacy Electronically, [id number], [facility]/pharmacy #[id number], 166, cm, 08/01/22 8:16:00 EST, [place]... Start Date: 08/01/22 Status: Ordered albuterol-ipratropium 3 mg-0.5 mg/3 ml inhalation solution 3 mL, BAND Nebulizer, 4 times a day, PRN Wheezing/Shortness of Breath, # 90 mL, 0 Refills, Maintenance, 07/13/22 12:36:00 EST, Inhalation Solution, [facility], Partial fill upon patientrequest if the [...] Status: Ordered azithromycin 250 mg oral tablet = 250 mg, By Mouth, Daily, for 1 days, # 1 tablet, 0 Refills, Acute 09/14/22 9:14:00 EST, 09/13/22 9:14:00 EST, Tablet, [facility], Partial fill upon patient request if the prescriptionis for a schedule II opioid drug., 168, cm, ... Start Date: 09/13/22 Stop Date: 09/14/22 Status: Ordered Eliquis 5 mg oral tablet [...] day, # 1 each, 0 Refills, Maintenance, 09/11/22 9:28:00 EST, Powder, [facility], Partial fill upon patient request if the prescription is for a schedule II opioid drug., 1 puffs Inhalation 2 times... Start Date: 09/11/22 Status: Ordered gabapentin 300 mg oral capsule 300 mg, Capsule, By Mouth, 09/13/22 9:00:00 EST Start Date: 09/13/22 Stop Date: 09/13/22 Status: Completed gabapentin 300 mg oral capsule 300 mg, 1, capsule, By Mouth, 2 times a day, Refills 0, Maintenance, 03/16/22 1:19:00 EDT, Partial fill upon patient request if the prescription is for a schedule II opioid drug. Start Date: 03/16/22 Status: Ordered Humalog Kwik Pen 100 units/mL subcutaneous injection Subcutaneous Injection, 3 times a day before meals, As directed per sliding scale., 0 Refills, Maintenance, 03/29/22 19:44:00 EDT, Partial fill upon patient request if the prescription is for a schedule II opioid drug. Start Date: 03/29/22 Status: Ordered Lantus Inj = 70 units, Subcutaneous Injection, Daily in AM, 0 [...] drug. Start Date: 05/09/22 Status: Ordered lisinopril 10 mg oral tablet 10 mg, Tablet, By Mouth, 09/13/22 9:00:00 EST Start Date: 09/13/22 Stop Date: 09/13/22 Status: Completed Lopressor 50 mg oral tablet 50 mg, Tablet, By Mouth, 09/13/22 9:00:00 EST Start Date: 09/13/22 Stop Date: 09/13/22 Status: Completed metFORMIN 850 mg oral tablet [...] 0 Refills, Maintenance, 08/01/22 11:21:00 EST, Solution, [facility]/pharmacy #[id number], Partial fill upon patient request if the prescription is for a schedule II opioid drug., 2 drops Eye, Left 2... Start Date: 08/01/22 Status: Ordered predniSONE 20 mg oral tablet 2 tablet = 40 mg, By Mouth, Daily, for 1 days, # 2 tablet, 0 Refills, Acute 09/14/22 11:14:00 EST, 09/13/22 11:14:00 EST, Tablet, Partial fill upon patient request if the prescription is for a schedule II opioid drug. Start Date: 09/13/22 Stop Date: 09/14/22 Status: Ordered simvastatin 40 mg oral tablet [...] Exam Date Time Procedure Performing Provider Status 09/09/22 12:56 PM Chest 2 Views Frontal and Lat Solange Harp; Auth (Verified) Notes: (Chest 2 Views Frontal and Lat) Reason For Exam: Shortness of Breath;Other: RESULT: Chest 2 Views Frontal and Lat Chest 2 Views Frontal and Lat Hx of Present Illness: Pt reports leaking rai catheter. Pt denies pain or discomfort.; Reason: Other:; Shortness of Breath; Clinical Question(s): Pneumonia; Hyperexpansion COMPARISON: None. FINDINGS: LINES AND TUBES: None. LUNGS AND PLEURA: Prominence of pulmonary vasculature. This is nonspecific. No focal opacity identified. Low lung volumes may accentuate the appearance. No pleural effusion. No pneumothorax. HEART, MEDIASTINUM AND KOLTON: Heart is normal in size. Normal mediastinal and hilar contour. BONES AND SOFT TISSUES: No acute abnormality. IMPRESSION: No specific findings of pneumonia. WSN: [id number] Ordering Physician: Troy, Delaney Dictated By: Bubba Silveira MD Dictated Date/Time: 09/09/22 12:57 p Reviewed By: Bubba Silveira MD Signed By: Bubba Silveira MD Signed Date/Time: 09/09/22 12:57 pm Transcribed By: SOLOMON Transcribed Date/Time: 09/09/22 12:56 pm Vital Signs Most recent to oldest [Reference Range]: 1 2 3 4 Height 168 cm (09/13/22 11: AM) 168 cm (09/13/22 11:21 AM) 168 cm (09/13/22 7:00 AM) Weight 122.6 kg (09/13/22 5:47 AM) 121.1 kg (09/10/22 1:27 AM) Oxygen Saturation [94-100 %] 92 % *L* (09/13/22: AM) 90 % *L* (09/13/22 11:21 AM) 99 % (09/13/22 7:00 AM) Pulse Rate [55-90 bpm] 77 bpm (09/13/22: AM) 74 bpm (09/13/22 11:21 AM) 59 bpm (09/13/22 8:15 AM) Body Mass Index [18.5-24.99 kg/m2] 42.91 kg/m2 *>HHI* (09/10/22 1:27 AM) Blood Pressure [90-138/55-84 mm Hg] 121/96mm Hg (09/13/22:28 AM) 104/63mm Hg (09/13/22 11:21 AM) 116/56mm Hg (09/13/22 8:15 AM) 116/56mm Hg (09/13/22 8:15 AM) Respiratory Rate [16-30 br/min] 20 br/min (09/13/22 11:28 AM) 16 br/min (09/13/22 11:21 AM) 18 br/min (09/13/22 8:15 AM) Temperature [96.8-100.4 DegF] 98.0 DegF (09/13/22 11:28 AM) 98 DegF (09/13/22 11:21 AM) 97.4 DegF (09/13/22 7:00 AM) Liters per Minute 2 L/min (3/7/23 11:28 AM) 2 L/min (09/13/22 11:21 AM) 2 L/min (09/13/22 7:00 AM) Mode of Delivery (Oxygen) Nasal cannula (09/13/22 11:28 AM) Nasal cannula (09/13/22 11:21 AM) Nasal cannula (09/13/22 7:00 AM) Blood pressure sites Arm, left (09/13/22 11:28 AM) Arm, left (09/13/22 5:37 AM) Arm, left (09/12/22 11:27 PM) Temperature Route Oral (09/13/22 11:28 AM) Oral (09/13/22 11:21 AM) Oral (09/13/22 5:37 AM) Dry Weight 121.1 kg (09/10/22 1:27 AM) 125 kg (09/09/22 9:22 PM) 125 kg (09/09/22 7:41 PM) Weight Obtained Via Bed scale (09/13/22 5:47 AM) Social History Social History Type Response Smoking Status Former smoker; Tobac co user in household: No entered on: 01/17/17 Sex Admission evaluation note * Cedrick GONZALEZ, Tarik Castrejon: MODIFY, MODIFY, MODIFY, MODIFY, PERFORM Event Display: Admission Note Authored Date: Patient: ??VIDHYA ADAM ? Age:??71 Years?Sex:??Female?:??1950?? Chief Complaint/Reason for Consultation Leaking around rai History of Present Illness 71-year-old woman with history of HFpEF (60% 04/2022), mild aortic stenosis, HTN, HLD, T2DM, asthma/COPD on 2 to 3L home O2, ERICKA on IVAPs, paroxysmal atrial fibrillation on Eliquis, neurogenic bladder with chronic Rai catheter (changed q month, [facility], 26Fr with 45cc in balloon port), wheelchair bound, who presents with leaking around her rai, SOB and pain in her legs. ?? Patient reports leaking of urine around her rai. She follows with [facility] and has her 26Fr with 45 cc balloon port rai changed every month. Her next catheter replaement is due on Monday but her program told her go to the ED for further evaluation. ?? She also reports long-standing SOB but this morning she woke up and could not breathe. She reports associated wheezing and??accidentally running over her Flovent with her wheelchair 4 days ago and since then not taking it. She reports adherence to Lasix 80 mg BID and a low salt diet??though thinks her ankles have been swollen and reports orthopnea. No fever, chills, chest pain. ?? She also reports pain in both her ankles with redness and is concerned she may have cellulitis of both her ankles. ?? In the ED, she was saturating 89% on arrival. She is now on 2L and saturating 91%. Vitals otherwise stable. CBC and BMP unremarkable. Magnesium level 1.5. Chest XR non-acute. In ED her rai was replaced and patient received 80 IV lasix, doxycycline for possible cellulitis, 125 mg Solu-Medrol, aduoneb treatment, and magnesium supplementation. She reports feeling much better after this treatment. Review of Systems Patient reports leakage around rai, SOB, wheezing, ankle swelling, orthopnea Patient denies fever, chills, chest pain Objective Vital Signs?? Temperature: 98.2 DegF (09/09/22 12:03:00) Temperature Route: Oral (09/09/22 12:03:00) Pulse Rate: 70 bpm (09/09/22 15:43:00) Respiratory Rate: 18 br/min (09/09/22 15:43:00) Systolic Blood Pressure: 106 mm Hg (09/09/22 15:43:00) Diastolic Blood Pressure: 61 mm Hg (09/09/22 15:43:00) Blood pressure sites: Arm, left (09/09/22 15:43:00) Mean Arterial Pressure: 83 mm Hg (09/09/22 14:08:00) Pulse Pressure: 45 mm Hg (09/09/22 15:43:00) Oxygen Saturation: 97 % (09/09/22 15:43:00) Liters per Minute: 2 L/min (09/09/22 15:43:00) Mode of Delivery (Oxygen): Nasal cannula (09/09/22 15:43:00) Early Warning Score: 0 (09/09/22 16:09:04) ? Physical Exam General:??No acute distress, well appearing HEENT:??Moist mucus membranes, PERRL Respiratory:??Clear to auscultation bilaterally, no increased work of breathing, no wheezes Cardiovascular:??Normal rate, regular rhythm, no murmurs?? GI/Abdomen:??Normal active bowel sounds, soft, non-tender, non-distended Extremities:??Moving extremities, no leg trauma Skin:??No jaundice, no ecchymoses Neurologic:??Alert & Oriented, no gross focal neurologic deficits Psychiatric:??Mood and affect appropriate Assessment/Plan Assessment:??71-year-old woman with history of HFpEF (60% 04/2022), mild aortic stenosis, HTN, HLD,T2DM, asthma/COPD on 2 to 3L home O2, ERICKA on IVAPs, paroxysmal atrial fibrillation on Eliquis, neurogenic bladder with chronic Rai catheter (changed q month, [facility], 26Fr with 45cc in balloon port), wheelchair bound, who presents with leaking around her rai, SOB and pain in her legs. ?? SOB COPD exacerbation CHF exacerbation Reports longstanding SOB worse this AM when waking up, could barely breathe Wheezing on exam and noncompliance to flovent for 4 days after running it over with her wheelchair is concerning for COPD exacerbation Reported ankle edema??and orthopnea is?? concerning for CHF exacerbation S/p 80 IV lasix in ED, vani, 125 solumedrol with reported significant improvement in her breathing She currently appears euvolemic with minimal leg edema, lungs sound clear but she received duoneb treatment ?? Plan: -Prednisone 40 mg daily for 4 more days -Azithromycin 250 mg??for 4 more days for COPD exacerbation (received doxycycline in ED) -Duonebs scheduled and as needed -Resume home Lasix 80 BID -I/O, daily weights ?? Venous stasis dermatitis She reports longstanding redness and tenderness??in her LE, on exam appears consistent with venous stasis dermatitis Patient is concerned about bilateral cellulitis of her LE Received doxy in ED for cellulitis No WBC or fever to suggest cellulitis, bilateral cellulitis would be unusual ?? Plan: -forensic technician consult -Consider compression stockings on discharge -Continue gabapentin ?? Leakage around her rai Presented primarily for??urine??leaking around rai Follows with [facility] and has rai changed every??month, due on Monday, was encouraged to go to ED Rai was replaced in ED ?? Plan: -Follow up UA ?? Chronic stable issues Afib- Continue Eliquis HTN- Continue lisinopril HLD- Continue statin DM- ISS, POC qac/qhs, AM glargine??64 daily,??gabapentin ?? Quality Measures DVT PPx- Eliquis Code- FULL Diet- Cardiac with carb restriction ?? Patient discussed with??attending physician??Dr. Obregon.?? 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 ?? Tarik Philip MD?? Gastroenterology Fellow - PGY 4 ?? Histories Allergies Allergies ?(Active and Proposed Allergies [...] smoker, Tobacco user in household: No. ? Family History Grandmother had a heart issue ?? Medications Home Medications Albuterol (albuterol 0.083% inhalation solution)?3?Milliliter?2.5?Milligram?Neb?Every 6 [...] oral tablet)?40?Milligram?1?tablet?By Mouth?Daily at bedtime ? Results Recent Labs BLOOD COUNT & DIFF WBC 8.1 k/mm3 ()?? 09/09/2022 13:28 RBC 4.93 m/mm3 ()?? 09/09/2022 13:28 Hgb 13.4 Gm/dL ()?? 09/09/2022 13:28 Hct 42.4 % ()?? 09/09/2022 13:28 MCV 86.0 femtoliters ()?? 09/09/2022 13:28 MCH 27.2 pg ()?? 09/09/2022 13:28 MCHC 31.6 g/dL (Low)?? 09/09/2022 13:28 Platelet Count 210 k/mm3 ()?? 09/09/2022 13:28 RDW-SD 47.9 femtoliters (High)?? 09/09/2022 13:28 MPV 11.2 femtoliters ()?? 09/09/2022 13:28 Nucleated RBC (Automated) 0.0 #/100 WBC'S ()?? 09/09/2022 13:28 Abs. NRBC 0.0 k/mm3 ()?? 09/09/2022 13:28 Abs. Neut 5.6 k/mm3 ()?? 09/09/2022 13:28 Abs. Lymph 1.4 k/mm3 ()?? 09/09/2022 13:28 Abs. [place] 0.7 k/mm3 ()?? 09/09/2022 13:28 Abs. Eo 0.3 k/mm3 ()?? 09/09/2022 13:28 Abs. Baso 0.0 k/mm3 ()?? 09/09/2022 13:28 Neut % 69.5 % ()?? 09/09/2022 13:28 Lymph % 17.7 % ()?? 09/09/2022 13:28 [place] % 8.1 % ()?? 09/09/2022 13:28 Eos % 4.1 % ()?? 09/09/2022 13:28 Baso % 0.2 % ()?? 09/09/2022 13:28 Imm Gran 0.4 % ()?? 09/09/2022 13:28 Abs. Imm Gran 0.0 k/mm3 ()?? 09/09/2022 13:28 ?? CHEM GENERAL Sodium 137 mmol/L ()?? 09/09/2022 13:28 Potassium 4.1 mmol/L ()?? 09/09/2022 13:28 Chloride 94 mmol/L (Low)?? 09/09/2022 13:28 Bicarbonate Level 35 mmol/L (High)?? 09/09/2022 13:28 Anion Gap 8 ()?? 09/09/2022 13:28 Glucose Level 142 mg/dL (High)?? 09/09/2022 13:28 Glucose, POC 129 mg/dL (High)?? 09/09/2022 16:06 BUN 7 mg/dL (Low)?? 09/09/2022 13:28 Creatinine-Blood 0.4 mg/dL (Low)?? 09/09/2022 13:28 Estimated GFR Creatinine 108 ML/MIN/1.73 M2 ()?? 09/09/2022 13:28 Calcium 8.7 mg/dL ()?? 09/09/2022 13:28 Magnesium 1.5 mg/dL (Low)?? 09/09/2022 13:28 ?? HEME OTHER Hold Blue Top SPECIMEN DISCARDED AFTER 4 HOURS. ()?? 09/09/2022 13:28 ?? MISC. CHEMISTRY Hold Green Top SPECIMEN DISCARDED AFTER 1 WEEK ()?? 09/09/2022 13:28 ?? VIROLOGY Influenza A PCR NEGATIVE ()?? 09/09/2022 13:28 Influenza B PCR NEGATIVE ()?? 09/09/2022 13:28 RSV PCR NEGATIVE ()?? 09/09/2022 13:28 COVID-19 PCR Specimen Source NASAL ()?? 09/09/2022 13:28 COVID-19 PCR Result NEGATIVE ()?? 09/09/2022 13:28 ? Microbiology ?? COVID-19, RSV, and Flu A/B, Rapid PCR?? Completed?? Source: Nasal Body Site: Nose Collected Dt/Tm: 09/09/2022 12:31 Last Updated Dt/Tm: 09/09/2022 14:57 ? EKG study * Event Display: ECG 12-Lead Authored Date: Please click on pdf link to open report * Event Display: ECG 12-Lead Authored Date: Ventricular Rate: 74 BPM Atrial Rate: 74 BPM P-R Interval: 192 ms QRS Duration: 94 ms Q-T Interval: 396 ms QTC Calculation(Bazett): 439 ms P Swink: 5 degrees R Swink: -9 degrees T Swink: 61 degrees Sinus rhythm with Premature atrial complexes Minimal voltage criteria for LVH, may be normal variant ( Daniel product ) Possible Anterior infarct (cited on or before 29-JUN-2021) Abnormal ECG When compared with ECG of 12-JUL-2022 06:59, Premature atrial complexes are now Present Questionable change in initial forces of Anteroseptal leads Confirmed by KELLIE GAVIN ([id number]) on 09/09/2022 1:55:16 PM [place]: KELLIE GAVIN [facility] Progress note * Cristina Tan: PERFORM, SIGN, VERIFY Event Display: Progress Note Hospital Authored Date: Patient: VIDHYA ADAM Age: 71 years Sex: Female : 1950 Associated Diagnoses: None Author: Cristina Tan Findings Problem Related to Alteration in Endocrine : Alteration in Endocrine Function/new 09/13/2022 7:00 EST Alteration in Endocrine Related to Hyperglycemia Goals & Outcomes, Endocrine Blood glucose levels will stabilize during hospitalization, Intake & Output will improve & return to baseline, Pt will receive/maintain adequate nutrition status, Pt will resume/maintain adequate cardiac output, Pt will maintain adequate GI/ function appropriate for pt, Pt will resume/maintain adequate hemodynamic status, Pt will tolerate age appropriate diet prior to discharge, Pt will be maintained on sc insulin & appropriate diet, Pt will be rehydrated, Pt will resume regular activities, Pt will verbalize psychosocial implications of diabetes Interventions, Endocrine Assess/monitor GI/ status, Assess skin turgor, temperature & capillary refill, Monitor & document daily weight, Teach Pt/caregiver activity instructions, Teach Pt/caregiver signs & symptoms of hypoglycemia, Teach Pt/caregiver signs & symptoms of hyperglycemia, Teach Pt/caregiver use of home glucose monitoring, Assess & monitor for insulin effects; hypoglycemia, Assess dietary intake before onset of DKA, Assess for hyper/hypokalemia; monitor ECG forchanges BH Goals/Interventions, Endocrine Yes Endocrine, Problem Start 09/12/2022 16:10 Reviewed Plan with, Endocrine Patient Patient Progression, Endocrine Pt progressing according to plan . Evaluation Patient A&O x4. Not experiencing any pain. Patient is normal sinus rhythm on tele. Blood sugar 117 this AM - gave 6 units of lispro and all other scheduled Meds. Patient on 2 L of O2 which is herbaseline. Patient has a cough is not easily unable to clear secretions. Rai is in place draining clear yellow urine, Rai care provided. Patient will be discharged home today at 1300 via [facility]. Bed locked in lowest position. Bed alarm on. Call bain and belongings in reach. Frequent rounding maintained. Patient will be transferred to S3 discharge unit once bed available. . Discharge Information Case Management Discharge Plan : Case Management Discharge Plan Data 09/13/2022 9:56 EST Discharge Level of Care at Discharge Home/Care Home/Foster Care Discharge Transportation Arranged [facility] [id number] [phone] Discharge Arranged Transport Date/Time 09/13/2022 13:00 Mode of Transportation Arranged Ambulance 09/11/2022 14:42 EST Discharge Level of Care at Discharge Home/Care Home/Foster Care 09/06/2022 18:59 EST Discharge Level of Care at Discharge Home/Care Home/Foster Care * Wilbert King MD: MODIFY, MODIFY, MODIFY, PERFORM Event Display: Progress Note Hospital Authored Date: Patient: ??VIDHYA ADAM ? Age:??71 Years?Sex:??Female?:??1950?? Subjective No acute events overnight. She is feeling better, off oxygen??and anticipates being discharged today. She mentioned today that she is taking 70 units of Lantus, this was recently increased. ?? Current Inpatient glycemic history and management: ?- Basal insulin: Lantus??50??units daily in the morning ?-??Prandial insulin: Humalog??6 units starting at??100 mg/dL with interval increase of??2 units for every??40 mg/dL TIDAC ?- Diet: 75 g carb per meal, 2 g sodium, 2 L fluid restriction ?? Glycemic trends reviewed: Blood glucose range in the past 24 hours 117-249, bedtime??BG??221 and??this morning FBG 117. She received a total of Lantus 64 units and Humalog 28??units and NPH 20 units yesterday. Review of Systems Reviewed and negative except??as noted??above. Allergies Allergies ?(Active and Proposed Allergies Only) Silvadene? (Severity: Unknown severity, Onset: Unknown) ?Reactions: unsure, skin alicea ? Past Medical History Active Problems??(14) Afib Cataract Chronic diastolic congestive [...] Family History No family history recorded. ? Objective Vital Signs?? Temperature: 97.4 DegF (09/13/22 07:00:00) Temperature Route: Oral (09/13/22 05:37:00) Pulse Rate: 59 bpm (09/13/22 08:15:00) Respiratory Rate: 18 br/min (09/13/22 08:15:00) Systolic Blood Pressure: 116 mm Hg (09/13/22 08:15:00) Systolic Blood Pressure: 116 mm Hg (09/13/22 08:15:00) Diastolic Blood Pressure: 56 mm Hg (09/13/22 08:15:00) Diastolic Blood Pressure: 56 mm Hg (09/13/22 08:15:00) Blood pressure sites: Arm, left (09/13/22 05:37:00) Mean Arterial Pressure: 76 mm Hg (09/13/22 07:00:00) Pulse Pressure: 60 mm Hg (09/13/22 07:00:00) Oxygen Saturation: 99 % (09/13/22 07:00:00) Liters per Minute: 2 L/min (09/13/22 07:00:00) Mode of Delivery (Oxygen): Nasal cannula (09/13/22 07:00:00) Early Warning Score: 6 (09/13/22 08:24:36) ? Physical Exam GENERAL APPEARANCE:??In no acute distress. HEENT: sclerae anicteric, conjunctivae pink and moist. EOMI. Oral mucosa moist NECK: Supple and symmetric. LUNGS: No respiratory distress. CARDIOVASCULAR: Regular rate and rhythm. SKIN: no rashes, ulcerations or petechiae on gross examination. EXTREMITIES: No cyanosis or clubbing. NEUROLOGIC: Alert and oriented x 3. Normal affect. _ Inpatient Medications Medications (23) Active SCHEDULED: (15) Albuterol/Ipratropium Inhalation Lisa 3mL (Duoneb Inhalation Solution) ??1 vials, BAND Nebulizer, 4 times a day Apixaban 5 mg Tablet (Eliquis) ??5 mg, By Mouth, 2 times a day Aspirin 81 mg EC Tablet (aspirin 81 mg oral delayed release tablet) ??81 mg, By Mouth, Daily Azithromycin 500 mg Tablet (Azithromycin Tablet) ??250 mg, By Mouth, Daily Breo Ellipta 200 mcg / 25 mcg Inhaler (Breo Ellipta 200 mcg-25 mcg Inhaler) ??1 puffs, Inhalation, Daily Furosemide 80 mg Tablet (Lasix 80 mg oral tablet) ??80 mg, By Mouth, 2 times a day Gabapentin 300 mg Capsule (gabapentin 300 mg oral capsule) ??300 mg, By Mouth, 2 times a day Insulin Glargine 100 units/mL Inj (Lantus Inj) ??50 units 0.5 mL, Subcutaneous Injection, Daily in AM Insulin Lispro 100 units/mL Inj (3mL) (Insulin LISPRO Sliding Scale) ??6-20 units, Subcutaneous Injection, 3 times a day before meals Insulin N 100 units/mL (10mL) (Insulin NPH Human Inj) ??24 units 0.24 mL, Subcutaneous Injection, Every 24 hours Lisinopril 10 mg Tablet (lisinopril 10 mg oral tablet) ??10 mg, By Mouth, Daily Metoprolol 50 mg Tablet (Lopressor 50 mg oral tablet) ??50 mg, By Mouth, 2 times a day NaCl 0.9% Flush 3ml (NaCL 0.9% Flush) ??3 mL, IV Push, Every 8 hours PredniSONE 20 mg Tablet (predniSONE 20 mg oral tablet) ??40 mg, By Mouth, Daily Simvastatin 20 mg Tablet (simvastatin 20 mg oral tablet) ??40 mg, By Mouth, Daily at bedtime CONTINUOUS: (0) PRN: (8) Acetaminophen 325 mg Tablet (Acetaminophen Tablet) ??650 [...] ??17 Gm 1 pack/packet, By Mouth, Daily Senna 8.6 mg / Docusate 50 mg tablet (Docusate/Senna Tablet) ??1 tablet, By Mouth, 2 times a day Simethicone 80 mg Chewable Tablet (Simethicone Tablet) ??80 mg, Chew, 3 times a day ? Results Recent Labs CHEM GENERAL Glucose, POC 117 mg/dL (High)?? 09/13/2022 06:54 ? Abnormal Labs ?? CHEM GENERAL ??Glucose, POC ??117 mg/dL (High) ??09/13/2022 06:54 ? Note: Critical results are displayed in red. ? Blood Glucose Trend Glucose, POC:??117 mg/dL??High (09/13/22 06:54:00) Glucose, POC:??221 mg/dL??High (09/12/22 20:26:00) Glucose, POC:??249 mg/dL??High (09/12/22 15:57:00) Glucose, POC:??235 mg/dL??High (09/12/22 11:14:00) ? Blood Gases?? No qualifying data available. ?? Assessment/Plan 71-year-old female with medical history of type 2 diabetes mellitus, COPD, CHF, hypertension, hyperlipidemia, obesity who was discharged yesterday after she was admitted for management of CHF and COPD exacerbation due to significantly elevated blood glucose in the 400's. She was started on prednisone 40mg daily x5 days to complete her management of COPD exacerbation and stated on her way home [facility] she felt like her blood sugar was elevated, so she asked for it to be checked and it was >400. [facility] was consulted for assistance in management of poorly controlled type II diabetes mellitus. ?? #Poorly controlled type II diabetes mellitus HbA1C: 10.5% on 07/31/22 Glycemic trends reviewed. Continue Lantus 50 units daily in the morning. Will increase Humalog to 10 units starting at 100mg/dL with interval increase of 2 units for every 40mg/dL TIDAC, hold for NPOand increase NPH to 24 units to be given at least 1 hour before prednisone is given. If patient is discharged today, please find the recommendations below. Per primary attending, she has 1 day of prednisone treatment. She was advised to follow up closely with Dr. Sanchez and her PCP upon discharge. ? Please copy and paste into the patient's discharge instructions. Discharge recommendations: - Lantus??70 units every morning - Continue Trulicity 0.75mg weekly and Metformin 850mg BID - Humalog before meals as per the scale below (until 09/15/22): Blood sugar? Humalog (units) 100 - 139? 10 140 - 179?12 180 - 219? 14 220 - 259?16 260 - 299? 18 300 - 339? 20 340 - 379?22 >380?24 ? You will need to test your blood sugar before meals and administer Humalog 15 minutes prior to eating, dose determined by the blood sugar level (as detailed by the scale above).? If your fasting??blood glucose is consistently?>120 and your 2 hour post prandial >250, please call your primary care physician or assembly inspector helper.? On 09/16/22 Please resume your usual home regimen: - Lantus??70 units every morning - Resume usual Humalog scale before meals 2-10 units?? - Continue Trulicity 0.75mg weekly and Metformin 850mg BID ? Hypoglycemia Patient Instructions Hypoglycemia or low blood glucose is when your glucose levels fallen low enough to cause symptoms. This is usually <70 mg/dl, but this may vary from person to person. Symptoms of hypoglycemia include:?? - feeling shaky? - feeling sleepy/lethargic - being nervous or anxious? - feeling weak, having no energy - sweating, chills, clamminess? - blurred/impaired vision - mood swings, irritability, impatience? -tingling/numbness in lips, tongue, cheeks - confusion? - headaches - palpitations/fast heartbeat? - coordination problems, clumsiness - feeling light-headed or dizzy? - nightmares or crying out in sleep - hunger, nausea? - seizures ? How to manage hypoglycemia/low blood sugar:?? Follow the 15-15 rule: have 15 grams of carbohydrate (options listed below) to raise your blood glucose and check it after 15 minutes. If it is still <70 mg/dl or below your low target, have another serving.?? Repeat these steps until your blood glucose is back to normal, eat a meal or snack to ensure it does not go low again.? 15 grams of carbohydrates: -??4 ounces (1/2 cup) of juice or regular soda -??1 tablespoon of sugar, honey or corn syrup -??8 ounces of nonfat or 1% milk -??15 pieces of Skittles?? -??4-7 pieces of hard candy (lifesavers, peppermints or jellybeans) -??3-4 glucose tablets ?? Please call??your PCP or assembly inspector helper??if you need assistance managing your hypoglycemia. ? Severe hypoglycemia:??When hypoglycemia or low blood sugar is not treated and you need someone to help you recover.?? Glucagon can be injected following the instructions in the Glucagon kit.? Please call 911 if the person is unconscious or glucagon is not sufficient or available! ? Plan of care discussed with ??Olya, addendum to follow. The plan was also discussed with the patient. ?? Thank you for the consultation. Please contact us with any questions or concerns.? Wilbert King MD Endocrinology Fellow, PGY-IV?Order Date/Time ??Order Action ??Order Name ??Order Detail ??09/13/2022 08:24 ??Modify ??Insulin N 100 units/mL (10mL) ??24 units, 0.24 mL, Subcutaneous Injection, Every 24 hours ??09/13/2022 08:19 ??Modify ??Insulin N 100 units/mL (10mL) ??24 units, Subcutaneous Injection, Every 24 hours ? * Olya GONZALEZ, [facility]: PERFORM Event Display: Progress Note Hospital Authored Date: ??I have seen and evaluated this patient. ??I have discussed the case and its management with the fellow and agree with the findings and plan as documented in the fellow???s note.?? * Sheron Lopez MD: PERFORM Event Display: Progress Note Hospital Authored Date: Patient: ??VIDHYA ADAM ? Age:??71 Years?Sex:??Female?:??1950?? Subjective Patient was seen and examined in a.m. Patient was discharged??yesterday and??brought back by EMS due to??blood sugar of 400 She denied any complaints this morning BIDS??was consulted and insulin dose adjusted,??team recommended to monitor overnight??for further adjustment tomorrow Day 4 of prednisone today Review of Systems As above Objective Vital Signs?? Temperature: 98.2 DegF (09/12/22 15:47:00) Temperature Route: Oral (09/12/22 15:47:00) Pulse Rate: 80 bpm (09/12/22 15:47:00) Respiratory Rate: 18 br/min (09/12/22 15:47:00) Systolic Blood Pressure: 107 mm Hg (09/12/22 15:47:00) Diastolic Blood Pressure:??47 mm Hg??Low (09/12/22 15:47:00) Blood pressure sites: Arm, right (09/12/22 15:47:00) Mean Arterial Pressure: 67 mm Hg (09/12/22 15:47:00) Pulse Pressure: 60 mm Hg (09/12/22 15:47:00) Oxygen Saturation: 94 % (09/12/22 15:57:00) Liters per Minute: 2 L/min (09/12/22 15:57:00) Mode of Delivery (Oxygen): Nasal cannula (09/12/22 15:57:00) End Tidal CO2: 2 mm Hg (09/12/22 07:24:00) Early Warning Score: 6 (09/12/22 16:02:43) ? Intake/Output? 09/12 10:58 09/12 07:00 03 07:00 09/10 07:00 09/09 07:00 ?? 09/12 16:53 09/12 16:53 09/12 06:59 0305 06:59 03 06:59 Intake ? 2150 ?0 ? 1320 ?480 ?350 Output ?18274 ? 2400 ? 5590 ? 3950 ? 2000 Net Total ? -09268 ?-2400 ?-4270 ?-3470 ?-1650 ? Physical Exam General: Lying comfortably in bed,no evident distress Cardiac: S1 + S2 + 0, no murmurs heard Respiratory: CTA, No wheezes, Rales or crackles heard Abdomen: soft, nondistended, nontender Extremities: No edema or cyanosis present Neurological: AO X3,cranial nerves grossly normal? Results Recent Labs BLOOD COUNT & DIFF WBC 8.4 k/mm3 ()?? 09/11/2022 07:11 RBC 4.71 m/mm3 ()?? 09/11/2022 07:11 Hgb 12.3 Gm/dL ()?? 09/11/2022 07:11 Hct 39.9 % ()?? 09/11/2022 07:11 MCV 84.7 femtoliters ()?? 09/11/2022 07:11 MCH 26.1 pg (Low)?? 09/11/2022 07:11 MCHC 30.8 g/dL (Low)?? 09/11/2022 07:11 Platelet Count 205 k/mm3 ()?? 09/11/2022 07:11 RDW-SD 47.5 femtoliters (High)?? 09/11/2022 07:11 MPV 11.6 femtoliters ()?? 09/11/2022 07:11 Nucleated RBC (Automated) 0.0 #/100 WBC'S ()?? 09/11/2022 07:11 Abs. NRBC 0.0 k/mm3 ()?? 09/11/2022 07:11 ?? CHEM GENERAL Sodium 135 mmol/L ()?? 09/11/2022 22:11 Potassium 4.1 mmol/L ()?? 09/11/2022 22:11 Chloride 91 mmol/L (Low)?? 09/11/2022 22:11 Bicarbonate Level 36 mmol/L (High)?? 09/11/2022 22:11 Anion Gap 8 ()?? 09/11/2022 22:11 Glucose Level 413 mg/dL (High)?? 09/11/2022 22:11 Glucose, POC 249 mg/dL (High)?? 09/12/2022 15:57 BUN 18 mg/dL ()?? 09/11/2022 22:11 Creatinine-Blood 0.7 mg/dL ()?? 09/11/2022 22:11 Estimated GFR Creatinine 90 ML/MIN/1.73 M2 ()?? 09/11/2022 22:11 Calcium 9.0 mg/dL ()?? 09/11/2022 22:11 Magnesium 1.7 mg/dL ()?? 09/11/2022 22:11 ? Assessment/Plan ??71-year-old woman with history of HFpEF (60% 04/2022), mild aortic stenosis, HTN, HLD, T2DM, asthma/COPD on 2 to 3L home O2, ERICKA on IVAPs, paroxysmal atrial fibrillation on Eliquis, neurogenic bladder with chronic Rai catheter (changed q month, [facility], 26Fr with 45cc in balloon port), wheelchair bound, who presents with leaking around her rai, SOB and pain in her legs. ?? SOB COPD exacerbation CHF exacerbation Reports longstanding SOB worse this AM when waking up, could barely breathe Wheezing on exam and noncompliance to flovent for 4 days after running it over with her wheelchair is concerning for COPD exacerbation Reported ankle edema??and orthopnea is?? concerning for CHF exacerbation S/p 80 IV lasix in ED, duonebs, 125 solumedrol with reported significant improvement in her breathing She currently appears euvolemic with minimal leg edema, lungs sound clear but she received duoneb treatment ?? Plan: -Prednisone 40 mg daily for 5 days.?? Today is day 4 -Azithromycin 250 mg??for COPD exacerbation (received doxycycline in ED) -Albuterol inhaler to continue. ??Flovent to continue. -Resume home Lasix 80 BID ?? Venous stasis dermatitis She reports longstanding redness and tenderness??in her LE, on exam appears consistent with venous stasis dermatitis Patient is concerned about bilateral cellulitis of her LE Received doxy in ED for cellulitis No WBC or fever to suggest cellulitis, bilateral cellulitis would be unusual -Continue gabapentin ?? Leakage around her rai Presented primarily for??urine??leaking around rai Follows with [facility]??and has rai changed every??month, due on Monday, was encouraged to go to ED Rai was replaced in ED. Outpatient follow-up with plan of [facility]. ?? Chronic stable issues Afib- Continue Eliquis HTN- Continue lisinopril HLD- Continue statin DM- ISS, POC qac/qhs, AM glargine??64 daily,??gabapentin ERICKA: IVAPS ordered. ?? Quality Measures DVT PPx- Eliquis Code- FULL Diet- Cardiac with carb restriction Note * Lainey Scherer RN: PERFORM Event Display: Discharge/Transfer Note Hospital Authored Date: [id number] Nursing Discharge Note Entered On: 09/13/2022 14:09 EST Performed On: 09/13/2022 14:07 EST by Lainey Scherer RN Nursing Discharge Note 2 Discharge Time : 09/13/2022 13:08 EST Discharge Level of Care at Discharge : Home/Care Home/Foster Care Patient Left Unit Via : Ambulance Patient Accompanied Off Unit with : Ambulance/Chair Van Personnel Handover Given to Transport Personnel : Yes DC Instructions Provided & Signed by Pt : Yes Patient Understands D/C Instructions : Yes Verbalized Understanding of D/C Plan By : Patient Patient Instructions Discharge Signed : Yes Did Pt have Specialty Bed or Wound Vac : No Lainey Scherer RN 09/13/2022 14:07 EST * Sheron Lopez MD: PERFORM, MODIFY Event Display: Discharge/Transfer Note Hospital Authored Date: Patient: ??VIDHYA ADAM ? Age:??71 Years?Sex:??Female?:??1950?? Patient Information Discharge Location: Primary Care Physician: Cherise Hamm MD Admit Date/Time: 09/12/22 10:58 Discharge Disposition Discharge Disposition: Home with Home Health Discharge Diagnosis Acute on chronic diastolic CHF (congestive heart failure) (I50.33) COPD exacerbation (J44.1) Cellulitis of lower leg (L03.119) ?? _ Discharge Medications Albuterol (albuterol 0.083% inhalation [...] 81 mg oral delayed release tablet)?1?tab(s)?81?Milligram?By Mouth?Daily Azithromycin (azithromycin 250 mg oral tablet)?250?Milligram?By Mouth?Daily?for 1?Days Ergocalciferol (Vitamin D2 50,000 intl units (1.25 mg) oral capsule)?1?capsule?50,000?International Unit?By Mouth?Every 7 days Fluticasone (Flovent Diskus 100 mcg/inh inhalation powder)?1?puff(s)?100?Microgram?Inhalation?2 times a day Furosemide (Lasix 80 mg oral tablet)?80?Milligram?1?tablet?By Mouth?2 times a day?for 30?Days Gabapentin (gabapentin 300 mg oral capsule)?300?Milligram?1?capsule?By Mouth?2 times a day Insulin Glargine (Lantus Inj)?70?unit(s)?Subcutaneous Injection?Daily in AM Insulin Lispro (Humalog Kwik Pen 100 units/mL subcutaneous injection)?Subcutaneous Injection?3 times a day before meals?As directed per sliding scale. Lisinopril (lisinopril 10 mg oral tablet)?10?Milligram?1?tablet?By Mouth?Daily Metformin (metFORMIN 850 mg oral tablet)?1?tab(s)?850?Milligram?By Mouth?2 times a day Metoprolol (Metoprolol Tartrate 50 mg oral tablet)?1?tab(s)?50?Milligram?By Mouth?2 times a day Ocular Lubricant (ocular lubricant - solution)?2?Drops?Eye, Left?2 times a day?as needed?Other?Dryness. PredniSONE (predniSONE 20 mg oral tablet)?2?tab(s)?40?Milligram?By Mouth?Daily?for 1?Days Simvastatin (simvastatin 40 mg oral tablet)?40?Milligram?1?tablet?By Mouth?Daily at bedtime ? Allergies Allergies ?(Active and Proposed Allergies Only) Silvadene? (Severity: Unknown severity, Onset: Unknown) ?Reactions: unsure, skin alicea ? Future Appointments Monday. 2022 10:00 AM EDT ?? With: Burton Chapman DO Where: [facility] [place] [address]- Hospital Course ??71-year-old woman with history of HFpEF (60% 04/2022), mild aortic stenosis, HTN, HLD, T2DM, asthma/COPD on 2 to 3L home O2, ERICKA on IVAPs, paroxysmal atrial fibrillation on Eliquis, neurogenic bladder with chronic Rai catheter (changed q month, [facility], 26Fr with 45cc in balloon port), wheelchair bound, who presents with leaking around her rai, SOB and pain in her legs. ?? Uncontrolled??type II DM Patient was discharged??yesterday and??brought back by EMS due to??blood sugar of 400 She denied any complaints this morning BIDS??was consulted and insulin dose adjusted??as below Lantus??70 units every morning - Continue Trulicity 0.75mg weekly and Metformin 850mg BID - Humalog before meals as per the scale below (until 09/15/22): Blood sugar? Humalog (units) 100 - 139? 10 140 - 179?12 180 - 219? 14 220 - 259?16 260 - 299? 18 300 - 339? 20 340 - 379?22 > 380?24 ? You will need to test your blood sugar before meals and administer Humalog 15 minutes prior to eating, dose determined by the blood sugar level (as detailed by the scale above).? If your fasting??blood glucose is consistently?>120 and your 2 hour post prandial >250, please call your primary care physician or assembly inspector helper.? On 09/16/22 Please resume your usual home regimen: - Lantus??70 units every morning - Resume usual Humalog scale before meals 2-10 units?? - Continue Trulicity 0.75mg weekly and Metformin 850mg BID ? Blood sugar well controlled today??and patient is??stable for discharge.?? Denied any complaints ? SOB-resolved COPD exacerbation??resolved CHF exacerbation??resolved Reports longstanding SOB worse this AM when waking up, could barely breathe Wheezing on exam and noncompliance to flovent for 4 days after running it over with her wheelchair is concerning for COPD exacerbation Reported ankle edema??and orthopnea is?? concerning for CHF exacerbation S/p 80 IV lasix in ED, vani, 125 solumedrol with reported significant improvement in her breathing She currently appears euvolemic with minimal leg edema, lungs sound clear but she received duoneb treatment ?? Plan: -Prednisone 40 mg daily for 5 days.?? Today is day 4.?? Sent a prescription for 1 more day -Azithromycin 250 mg??for COPD exacerbation (received doxycycline in ED).?? Got 3 days??in the hospital.?? Sent 2 more days -Albuterol inhaler to continue. ??Flovent to continue. -Resume home Lasix 80 BID ?? Venous stasis dermatitis She reports longstanding redness and tenderness??in her LE, on exam appears consistent with venous stasis dermatitis Patient is concerned about bilateral cellulitis of her LE Received doxy in ED for cellulitis No WBC or fever to suggest cellulitis, bilateral cellulitis would be unusual -Continue gabapentin ?? Leakage around her rai??resolved Presented primarily for??urine??leaking around rai Follows with urology??and has rai changed every??month, due on Monday, was encouraged to go to ED Rai was replaced in ED. Outpatient follow-up with plan of [facility]. ?? Chronic stable issues Afib- Continue Eliquis HTN- Continue lisinopril HLD- Continue statin DM- ISS, POC qac/qhs, AM glargine??64 daily,??gabapentin ERICKA: IVAPS ordered. Objective Assessment and Plan ? Measurements?? Height: 168 cm (09/13/22) Weight: 122.6 kg (09/13/22) Dry Weight: 121.1 kg (09/10/22) Body Mass Index:??42.91 kg/m2??Critical (09/10/22) ? Vital Signs?? Temperature: 98 DegF (09/13/22 11:28:00) Temperature Route: Oral (09/13/22 11:28:00) Pulse Rate: 77 bpm (09/13/22 11:28:00) Respiratory Rate: 20 br/min (09/13/22 11:28:00) Systolic Blood Pressure: 121 mm Hg (09/13/22 11:28:00) Diastolic Blood Pressure:??96 mm Hg??High (09/13/22 11:28:00) Blood pressure sites: Arm, left (09/13/22 11:28:00) Mean Arterial Pressure: 104 mm Hg (09/13/22 11:28:00) Pulse Pressure: 25 mm Hg (09/13/22 11:28:00) Oxygen Saturation:??90 %??Low (09/13/22 11:21:00) Liters per Minute: 2 L/min (09/13/22 11:21:00) Mode of Delivery (Oxygen): Room air (09/13/22 11:28:00) Early Warning Score: 6 (09/13/22 11:36:04) ? . Physical Exam General: Lying comfortably in bed,no evident distress Cardiac: S1 + S2 + 0, no murmurs heard Respiratory: CTA, No wheezes, Rales or crackles heard Abdomen: soft, nondistended, nontender Extremities: No edema or cyanosis present Neurological: AO X3,cranial nerves grossly normal? Consultants BIDS Pending Results Add On Lab Order ordered on 09/09/2022 COVID-19 (2019 Novel Coronavirus) PCR ordered on 09/12/2022 Patient Education Titles COPD: Chronic Coughing?? COPD Flare-Up?? Prednisone Oral Tablet?? Azithromycin Oral Tablet?? Follow-Up Appointments Added Follow Up ?Time Frame ?Comments Hansel GONZALEZ , Cherise Bolden?1 to 2 weeks Patient Instructions Lantus??70 units every morning - Continue Trulicity 0.75mg weekly and Metformin 850mg BID - Humalog before meals as per the scale below (until 09/15/22): Blood sugar? Humalog (units) 100 - 139? 10 140 - 179?12 180 - 219? 14 220 - 259?16 260 - 299? 18 300 - 339? 20 340 - 379?22 > 380?24 ? You will need to test your blood sugar before meals and administer Humalog 15 minutes prior to eating, dose determined by the blood sugar level (as detailed by the scale above).? If your fasting??blood glucose is consistently?>120 and your 2 hour post prandial >250, please call your primary care physician or assembly inspector helper.? On 09/16/22 Please resume your usual home regimen: - Lantus??70 units every morning - Resume usual Humalog scale before meals 2-10 units?? - Continue Trulicity 0.75mg weekly and Metformin 850mg BID ? Hypoglycemia Patient Instructions Hypoglycemia or low blood glucose is when your glucose levels fallen low enough to cause symptoms. This is usually <70 mg/dl, but this may vary from person to person. Symptoms of hypoglycemia include:?? - feeling shaky? - feeling sleepy/lethargic - being nervous or anxious? - feeling weak, having no energy - sweating, chills, clamminess? - blurred/impaired vision - mood swings, irritability, impatience? -tingling/numbness in lips, tongue, cheeks - confusion? - headaches - palpitations/fast heartbeat? - coordination problems, clumsiness - feeling light-headed or dizzy? - nightmares or crying out in sleep - hunger, nausea? - seizures ? How to manage hypoglycemia/low blood sugar:?? Follow the 15-15 rule: have 15 grams of carbohydrate (options listed below) to raise your blood glucose and check it after 15 minutes. If it is still <70 mg/dl or below your low target, have another serving.?? Repeat these steps until your blood glucose is back to normal, eat a meal or snack to ensure it does not go low again.? 15 grams of carbohydrates: -??4 ounces (1/2 cup) of juice or regular soda -??1 tablespoon of sugar, honey or corn syrup -??8 ounces of nonfat or 1% milk -??15 pieces of Skittles?? -??4-7 pieces of hard candy (lifesavers, peppermints or jellybeans) -??3-4 glucose tablets ?? Please call??your PCP or assembly inspector helper??if you need assistance managing your hypoglycemia. ? Severe hypoglycemia:??When hypoglycemia or low blood sugar is not treated and you need someone to help you recover.?? Glucagon can be injected following the instructions in the Glucagon kit.? Please call 911 if the person is unconscious or glucagon is not sufficient or available! Post Discharge Care Discharge ?Today, ??after BIDS team see the patient and change insulin dose, ??09/13/22 9:15:00 EST Discharge Prescriptions ?ePrescribed, ??Prescription sent to [address]., ??09/11/22 9:30:00 EST Home Health Face to Face ^[facility] Results Discharge Labs BLOOD COUNT & DIFF WBC 8.4 k/mm3 ()?? 09/11/2022 07:11 RBC 4.71 m/mm3 ()?? 09/11/2022 07:11 Hgb 12.3 Gm/dL ()?? 09/11/2022 07:11 Hct 39.9 % ()?? 09/11/2022 07:11 MCV 84.7 femtoliters ()?? 09/11/2022 07:11 MCH 26.1 pg (Low)?? 09/11/2022 07:11 MCHC 30.8 g/dL (Low)?? 09/11/2022 07:11 Platelet Count 205 k/mm3 ()?? 09/11/2022 07:11 RDW-SD 47.5 femtoliters (High)?? 09/11/2022 07:11 MPV 11.6 femtoliters ()?? 09/11/2022 07:11 Nucleated RBC (Automated) 0.0 #/100 WBC'S ()?? 09/11/2022 07:11 Abs. NRBC 0.0 k/mm3 ()?? 09/11/2022 07:11 Abs. Neut 5.6 k/mm3 ()?? 09/09/2022 13:28 Abs. Lymph 1.4 k/mm3 ()?? 09/09/2022 13:28 Abs. [place] 0.7 k/mm3 ()?? 09/09/2022 13:28 Abs. Eo 0.3 k/mm3 ()?? 09/09/2022 13:28 Abs. Baso 0.0 k/mm3 ()?? 09/09/2022 13:28 Neut % 69.5 % ()?? 09/09/2022 13:28 Lymph % 17.7 % ()?? 09/09/2022 13:28 [place] % 8.1 % ()?? 09/09/2022 13:28 Eos % 4.1 % ()?? 09/09/2022 13:28 Baso % 0.2 % ()?? 09/09/2022 13:28 Imm Gran 0.4 % ()?? 09/09/2022 13:28 Abs. Imm Gran 0.0 k/mm3 ()?? 09/09/2022 13:28 ?? CARDIAC Nt-Probnp 315 pg/mL (High)?? 09/09/2022 13:28 ? CHEM GENERAL Sodium 135 mmol/L ()?? 09/11/2022 22:11 Potassium 4.1 mmol/L ()?? 09/11/2022 22:11 Chloride 91 mmol/L (Low)?? 09/11/2022 22:11 Bicarbonate Level 36 mmol/L (High)?? 09/11/2022 22:11 Anion Gap 8 ()?? 09/11/2022 22:11 Glucose Level 413 mg/dL (High)?? 09/11/2022 22:11 Glucose, POC 174 mg/dL (High)?? 09/13/2022 11:12 BUN 18 mg/dL ()?? 09/11/2022 22:11 Creatinine-Blood 0.7 mg/dL ()?? 09/11/2022 22:11 Estimated GFR Creatinine 90 ML/MIN/1.73 M2 ()?? 09/11/2022 22:11 Calcium 9.0 mg/dL ()?? 09/11/2022 22:11 Magnesium 1.7 mg/dL ()?? 09/11/2022 22:11 ?? HEME OTHER Hold Blue Top SPECIMEN DISCARDED AFTER 4 HOURS. ()?? 09/09/2022 13:28 ? MISC. CHEMISTRY Hold Green Top SPECIMEN DISCARDED AFTER 1 WEEK ()?? 09/09/2022 13:28 ? UA/URINALYSIS Appear/Color, Urine COLORLESS ()?? 09/09/2022 17:15 Specific [place], Urine 1.009 ()?? 09/09/2022 17:15 pH, Urine 6.0 ()?? 09/09/2022 17:15 Albumin, Urine TRACE (Abnormal)?? 09/09/2022 17:15 Glucose, Urine NEGATIVE ()?? 09/09/2022 17:15 Ketones, Urine NEGATIVE ()?? 09/09/2022 17:15 Bilirubin, Urine NEGATIVE ()?? 09/09/2022 17:15 Hemoglobin, Urine 1+ (Abnormal)?? 09/09/2022 17:15 Nitrite, Urine NEGATIVE ()?? 09/09/2022 17:15 Leukocyte, Urine 2+ (Abnormal)?? 09/09/2022 17:15 Urobilinogen NORMAL mg/dL ()?? 09/09/2022 17:15 WBC's, Urine 25 /HPF (High)?? 09/09/2022 17:15 RBC's, Urine 14 /HPF (High)?? 09/09/2022 17:15 Bacteria SLIGHT HPF (Abnormal)?? 09/09/2022 17:15 Squamous Epith <1 /HPF ()?? 09/09/2022 17:15 Mucus SLIGHT /LPF ()?? 09/09/2022 17:15 Hold Urine Culture Testing available 48 hours from time of collection. ()?? 09/09/2022 17:15 ? VIROLOGY Influenza A PCR NEGATIVE ()?? 09/09/2022 13:28 Influenza B PCR NEGATIVE ()?? 09/09/2022 13:28 RSV PCR NEGATIVE ()?? 09/09/2022 13:28 COVID-19 PCR Specimen Source NASAL ()?? 09/09/2022 13:28 COVID-19 PCR Result NEGATIVE ()?? 09/09/2022 13:28 ? _40 minutes spent on discharge * Gilmer FARNSWORTH, Lainey Ahuja: PERFORM, MODIFY Event Display: Patient Education/Instruction Authored Date: [id number] Inpatient Adult Discharge Instructions [address] [address] Name: VIDHYA ADAM : 1950 Visit: 09/12/2022 10:58:00 Current Date: 09/13/2022 12:00 Account: [id number] Inpatient Adult Discharge Instructions We would like [...] and their families. Surveys are administered by [employer] ?? If further treatment with your primary care physician or another doctor is recommended, it is important for you to keep the appointment. Call your primary care physician or return to the Emergency Department immediately if your condition worsens, fails to improve, or new symptoms develop. If you need to find a doctor, you can call [facility] for a referral at [phone] or toll free at [phone]) or log in to [email or web address].. ?? You can view and manage your care through the patient portal or by using a health care shaneka of your choosing. [employer] is a website that allows you to securely view your medical information including your hospital discharge summary, office visit summaries, medications and follow-up visits. You can also request appointments, renew medications, and request access to your medical information using a health care shaneka of your choosing, or just ask a question. You can enroll at [email or web address] or register during your next office visit. You have been discharged from [facility], Patient Care Unit: S3. If you have any questions regarding these instructions after you leave, please call us and we will be happy to assist you. [facility] Your Care Team Attending Physician Sheron Lopez MD Consulting Providers Gerard Goldberg MD Discharging Providers Sheron oLpez MD Reason for Admission AOx4 coming from service net, leaking catheter. WC bound no pain. Your Diagnosis Acute on chronic diastolic CHF (congestive heart failure) COPD exacerbation Cellulitis of lower leg Tests Performed Below is a partial list of the tests performed during your hospitalization. You may have had other tests and procedures not included in this list. Please discuss all test results with your provider. Basic Metabolic Panel BUN Calcium Level CBC CBC w/ Differential COVID-19, RSV, and Flu A/B, Rapid PCR Creatinine Electrolytes Glucose Level GLUCOSE POC HOLD BLUE TUBE HOLD GREEN TUBE Lytes Magnesium Level PROBNP Urinalysis w/hold for Urine Culture XR Chest 2 Views Frontal and Lat Primary Care Provider Cherise Hamm MD Advance Directive Health Care Proxy on File Yes - Health Care Proxy Yes - MOLST Discharge Vitals Temperature: 98 DegF Height: 168 cm Pulse Rate: 77 bpm Weight: 122.6 kg Respiratory Rate: 20 br/min Body Mass Index:??42.91 kg/m2??Critical Systolic Blood Pressure: 121 mm Hg Body surface area: 2.38 Diastolic Blood Pressure:??96 mm Hg??High ?? Oxygen Saturation:??92 %??Low ?? Studies Pending All tests and labs ordered during this hospital stay have been completed unless listed below. Please discuss all pending results with your provider listed above in these instructions. ?? Add On Lab Order COVID-19 (2019 Novel Coronavirus) PCR What to do next Instructions From Your Doctor Ale??70 units every morning - Continue Trulicity 0.75mg weekly and Metformin 850mg BID - Humalog before meals as per the scale below (until 09/15/22): Blood sugar? Humalog (units) 100 - 139? 10 140 - 179?12 180 - 219? 14 220 - 259?16 260 - 299? 18 300 - 339? 20 340 - 379?22 > 380?24 ? You will need to test your blood sugar before meals and administer Humalog 15 minutes prior to eating, dose determined by the blood sugar level (as detailed by the scale above).? If your fasting??blood glucose is consistently?>120 and your 2 hour post prandial >250, please call your primary care physician or assembly inspector helper.? On 09/16/22 Please resume your usual home regimen: - Lantus??70 units every morning - Resume usual Humalog scale before meals 2-10 units?? - Continue Trulicity 0.75mg weekly and Metformin 850mg BID ? Hypoglycemia Patient Instructions Hypoglycemia or low blood glucose is when your glucose levels fallen low enough to cause symptoms. This is usually <70 mg/dl, but this may vary from person to person. Symptoms of hypoglycemia include:?? - feeling shaky? - feeling sleepy/lethargic - being nervous or anxious? - feeling weak, having no energy - sweating, chills, clamminess? - blurred/impaired vision - mood swings, irritability, impatience? -tingling/numbness in lips, tongue, cheeks - confusion? - headaches - palpitations/fast heartbeat? - coordination problems, clumsiness - feeling light-headed or dizzy? - nightmares or crying out in sleep - hunger, nausea? - seizures ? How to manage hypoglycemia/low blood sugar:?? Follow the 15-15 rule: have 15 grams of carbohydrate (options listed below) to raise your blood glucose and check it after 15 minutes. If it is still <70 mg/dl or below your low target, have another serving.?? Repeat these steps until your blood glucose is back to normal, eat a meal or snack to ensure it does not go low again.? 15 grams of carbohydrates: -??4 ounces (1/2 cup) of juice or regular soda -??1 tablespoon of sugar, honey or corn syrup -??8 ounces of nonfat or 1% milk -??15 pieces of Skittles?? -??4-7 pieces of hard candy (lifesavers, peppermints or jellybeans) -??3-4 glucose tablets ?? Please call??your PCP or assembly inspector helper??if you need assistance managing your hypoglycemia. ? Severe hypoglycemia:??When hypoglycemia or low blood sugar is not treated and you need someone to help you recover.?? Glucagon can be injected following the instructions in the Glucagon kit.? Please call 911 if the person is unconscious or glucagon is not sufficient or available! Discharge Orders Instructions from your Care Team You will have home health services ([facility] and physical??therapy)??provided by [facility] home health services. Per your nurse??Alex someone will be out to see you tomorrow. If you have any questions please call Scheduled Follow-Up Appointments Monday. 2022 10:00 AM EDT ?? With: Burton Chapman DO Where: [facility] [address] [place] [address]- You Need to Schedule the Following Appointments Follow Up with??Hansel GONZALEZ , Cherise Bolden When??Within 1 to 2 weeks Where: [address] [place] [id number]- Discharge Medications VIDHYA ADAM :1950 Visit Date:09/12/2022 Medications: Please continue your medications until treatment is completed or stopped by your provider. Medications not listed below should be discontinued. Discuss any questions related to medications with your provider. What How Much When Instructions Next Dose New Azithromycin (azithromycin 250 mg oral tablet) 250 Milligram Oral Daily Duration: 1 Days Pickup at [facility] next dose due 09/14 at 8am New PredniSONE (predniSONE 20 mg oral tablet) 2 tab(s) Oral Daily Duration: 1 Days next dose due 09/14 at 8am Changed Insulin Glargine (Lantus Inj) 70 unit(s) Subcutaneous Injection Daily in the morning next dose due 09/14 at 8am Changed Insulin Lispro (Humalog Kwik Pen 100 units/ mL subcutaneous injection) Subcutaneous Injection 3 times a day before meals As directed per sliding scale. ?? follow sliding scale for dosage Unchanged Albuterol (albuterol 0.083% inhalation solution) 3 Milliliter Nebulized inhalation Every 6 hours as needed for as needed for wheezing take as directed for wheezing Unchanged Albuterol (albuterol CFC free 90 mcg/ inh inhalation aerosol) 1 puff(s) Inhalation 4 times a day as needed for as needed for wheezing take as directed for wheezing Unchanged Albuterol/ Ipratropium (albuterol-ipratropium 3 mg-0.5 mg/ 3 ml inhalation solution) 3 Milliliter BAND Nebulizer 4 times a day as needed for Wheezing/Shortness of Breath take as directed for wheezing Unchanged apixaban (Eliquis 5 mg oral tablet) 1 tab(s) Oral Twice a day next dose due 09/13 at 8pm Unchanged Aspirin (Aspirin Low Dose 81 mg oral delayed release tablet) 1 tab(s) Oral Daily next dose due 09/14 at 8am Unchanged Ergocalciferol (Vitamin D2 50,000 intl units (1.25 mg) oral capsule) 1 capsule Oral Every 7 days resume home schedule Unchanged Fluticasone (Flovent Diskus 100 mcg/ inh inhalation powder) 1 puff(s) Inhalation Twice a day Pickup at [facility] 3 next dose due 09/13 at 8pm Unchanged Furosemide (Lasix 80 mg oral tablet) 1 tab(s) Oral Twice a day Duration: 30 Days next dose due 09/13 at 4pm Unchanged Gabapentin (gabapentin 300 mg oral capsule) 1 capsule Oral Twice a day next dose due 09/13 at 8pm Unchanged Lisinopril (lisinopril 10 mg oral tablet) 1 tab(s) Oral Daily next dose due 09/14 at 8am Unchanged Metformin (metFORMIN 850 mg oral tablet) 1 tab(s) Oral Twice a day next dose due 09/13 at 8pm Unchanged Metoprolol (Metoprolol Tartrate 50 mg oral tablet) 1 tab(s) Oral Twice a day next dose due 09/13 at 8pm Unchanged Ocular Lubricant (ocular lubricant - solution) 2 Drops Left eye Twice a day as needed for Other Dryness. ?? take as directed Unchanged Simvastatin (simvastatin 40 mg oral tablet) 1 tab(s) Oral Daily at Bedtime next dose due 3 at 8pm Pharmacy Information [facility] 3: [address], [place] [id number] [phone] Test Results Below is a partial list of the most recent Laboratory test results done prior to this discharge. You may have had other tests and procedures not included in this list. Please discuss all test resultswith your provider. Basic Metabolic Panel (09/09/2022) ???Sodium - 137 mmol/L???Potassium - 4.1 mmol/L???Chloride - 94 mmol/L???Bicarbonate Level - 35 mmol/L???Anion Gap - 8???Glucose Level - 142 mg/dL???BUN - 7 mg/dL???Creatinine-Blood - 0.4 mg/dL???Estimated GFR Creatinine - 108 ML/MIN/1.73 M2???Calcium - 8.7 mg/dL BUN (09/11/2022) ???BUN - 18 mg/dL Calcium Level (09/11/2022) ???Calcium - 9.0 mg/dL CBC (09/11/2022) ???WBC - 8.4 k/mm3???RBC - 4.71 m/mm3???Hgb - 12.3 Gm/dL???Hct - 39.9 %???MCV - 84.7 femtoliters???MCH - 26.1 pg???MCHC - 30.8 g/dL???Platelet Count - 205 k/mm3???RDW-SD - 47.5 femtoliters???MPV - 11.6 femtoliters???Nucleated RBC (Automated) - 0.0 #/100 WBC'S???Abs. NRBC - 0.0 k/mm3 CBC w/ Differential (09/09/2022) ???WBC - 8.1 k/mm3???RBC - 4.93 m/mm3???Hgb - 13.4 Gm/dL???Hct - 42.4 %???MCV - 86.0 femtoliters???MCH - 27.2 pg???MCHC - 31.6 g/dL???Platelet Count - 210 k/mm3???RDW-SD - 47.9 femtoliters???MPV - 11.2 femtoliters???Nucleated RBC (Automated) - 0.0 #/100 WBC'S???Abs. NRBC - 0.0 k/mm3???Abs. Neut - 5.6 k/mm3???Abs. Lymph - 1.4 k/mm3???Abs. [place] - 0.7 k/mm3???Abs. Eo - 0.3 k/mm3???Abs. Baso - 0.0 k/mm3???Neut % - 69.5 %???Lymph % - 17.7 %???[place] % - 8.1 %???Eos % - 4.1 %???Baso % - 0.2 %???Imm Gran - 0.4 %???Abs. Imm Gran - 0.0 k/mm3 COVID-19, RSV, and Flu A/B, Rapid PCR (09/09/2022) ???Influenza A PCR - NEGATIVE???Influenza B PCR - NEGATIVE???RSV PCR - NEGATIVE???COVID-19 PCR Specimen Source - NASAL???COVID-19 PCR Result - NEGATIVE Creatinine (09/11/2022) ???Creatinine-Blood - 0.7 mg/dL???Estimated GFR Creatinine - 90 ML/MIN/1.73 M2 Electrolytes (09/11/2022) ???Sodium - 135 mmol/L???Potassium - 4.1 mmol/L???Chloride - 91 mmol/L???Bicarbonate Level - 36 mmol/L???Anion Gap - 8 Glucose Level (09/11/2022) ???Glucose Level - 413 mg/dL GLUCOSE POC (09/13/2022) ???Glucose, POC - 174 mg/dL HOLD BLUE TUBE (09/09/2022) ???Hold Blue Top - SPECIMEN DISCARDED AFTER 4 HOURS. HOLD GREEN TUBE (09/09/2022) ???Hold Green Top - SPECIMEN DISCARDED AFTER 1 WEEK Lytes (09/10/2022) ???Sodium - 132 mmol/L???Potassium - 4.0 mmol/L???Chloride - 87 mmol/L???Bicarbonate Level - 39 mmol/L???Anion Gap - 6 Magnesium Level (09/11/2022) ???Magnesium - 1.7 mg/dL PROBNP (09/09/2022) ???Nt-Probnp - 315 pg/mL Urinalysis w/hold for Urine Culture (09/09/2022) ???Appear/Color, Urine - COLORLESS???Specific [place], Urine - 1.009???pH, Urine - 6.0???Albumin, Urine - TRACE???Glucose, Urine - NEGATIVE???Ketones, Urine - NEGATIVE???Bilirubin, Urine - NEGATIVE???Hemoglobin, Urine - 1+???Nitrite, Urine - NEGATIVE???Leukocyte, Urine - 2+???Urobilinogen - NORMAL???WBC's, Urine - 25 /HPF? ?RBC's, Urine - 14 /HPF? ?Bacteria - SLIGHT? ?Squamous Epith - <1 /HPF? ?Mucus - SLIGHT???Hold Urine Culture - Testing available 48 hours from time of collection. Allergies (NKA means No Known Allergies) Silvadene??(skin [...] Educational Leaflet Providered with your Discharge Instructions. COPD: Chronic Coughing?? COPD Flare-Up?? Prednisone Oral Tablet?? Azithromycin Oral Tablet?? Valuables and Belongings I fully understand and agree that [facility] accepts no responsibility for all my [...] to send valuables and belongings home. ?? Date for Pt to Sign Valuables/Belongings: 09/13/22 11:28:00 ?? Other Discharge Information ? Case Management Discharge Plan?? Discharge Plan?? Discharge Level of Care at Discharge: Home/Care Home/Foster Care Discharge Transportation Arranged: [facility] [address] [facility] [id number] [phone] Mode of Transportation Arranged: Ambulance Discharge Arranged Transport Date/Time: 09/13/22 13:00:00 ?? Pulmonary Rehab Status?? Pulmonary Rehab Discharge Status?? Respiratory Rate: 20 br/min ? Common Emergency [...] are strongly encouraged to quit. Please call [facility] [employer] Link at [phone] or [phone] or log in to [email or web address] for referrals to smoking cessation programs. ?? The National Suicide Prevention Hotline is available 30/01 if you or someone you know needs to find a reason to keep living. By calling 7-045-683-myRete (5892) you'll be connected to a skilled, trained counselor at a crisis center in your area. INPATIENT DISCHARGE INSTRUCTIONS SIGNATURE PAGE VIDHYA ADAM Location:[facility] Registration Date and Time:09/12/2022 10:58 EST Primary Care Physician: Cherise Hamm MD, I KIAVIDHYA, have received the above patient education materials/instructions and have verbalized understanding. If ambulance or transport services are being used I further acknowledge being given a choice of service. ?? If you need to contact me, please call me at this number: . Patient/Branch Administrator Name: Patient/Branch Administrator Signature: Relationship to Patient: Witness Name/Signature: Date: * Lainey Scherer RN: PERFORM Event Display: Patient Education Leaflets Authored Date: [id number] Asthma and COPD: Controlling Other Triggers ?? [id number] Asthma and COPD: Controlling Other Triggers Many things can trigger symptoms in people with breathing conditions such as asthma or COPD. They may be allergens such as mold, pollens, or dust. Or they may be irritants such as smoke or strong odors. You may find things that trigger symptoms but aren???t allergens or irritants. These include weather changes, illness, stress, and exercise. The tips below can help to ease your symptoms. Weather Some weather can trigger symptoms. Or it can make other triggers worse. ??? Keep track of weather conditions that affect you.??Very high or low temperatures, or high humidity, can make symptoms worse. For some people, major changes in weather can be a trigger. ??? Limit outdoor activity during the type of weather that affects you. ??? Wear a scarf over your mouth and nose in cold weather. ?? Colds, flu, and sinus infections Illnesses that affect the nose, throat, and sinuses can irritate your lungs. These are called upperrespiratory infections. They can cause asthma flare-ups. To prevent these: ??? Wash your hands often with soap and clean, running water. Or use??an alcohol-based hand cleaner greaser. ??? Get a yearly flu shot. Ask your healthcare provider if you should get the pneumonia vaccine. ??? Take care of your general health. Get plenty of sleep. And eat a healthy diet with lots of fruit and vegetables. ?? Food additives Food additives can trigger asthma flare-ups in some people. ??? Check food labels for sulfites, metabisulfites, and sulfur dioxide. These are often found in foods such as wine, beer, and dried fruits. ??? Don't eat foods that have these additives if they trigger your asthma. ?? Medicines Some??medicines may??cause symptoms in some people with asthma. These include: ??? Aspirin ??? Nonsteroidal anti-inflammatory drugs (NSAIDs) such as ibuprofen and naproxen ??? Some beta-blockers Make sure to: ??? Tell your healthcare provider if you think certain medicines trigger symptoms. ??? Read??the labels on emis-clu-btahnop medicines. They may have ingredients that cause symptoms for you. ?? Emotions Laughing, crying, feeling excited, or feeling stressed are triggers for some people. ??? Try this breathing exercise to stay calm: o Start by breathing in slowly through your nose for 2 seconds. o Then close??your lips and breathe out for 4 seconds. ??? Try to focus on a soothing image in your mind. This will help relax you and calm your breathing. ??? Remember to take your daily controller medicines. When you are upset or under stress, it???s easy to forget. ?? Exercise For some people, exercise can trigger symptoms.??Don???t let this stop you from being active. Exercise is good for your overall health and your lung health. It??strengthens the heart and blood vessels. It may lower your sensitivity to triggers. These tips and your healthcare provider's advice can help: ??? If you have not been exercising regularly, start slowly. You can build up to more exercise.??? Take all of your medicines as prescribed. ??? Make sure you have your quick-relief medicine with you when you exercise if you use this medicine.? Ask your provider if you should take your quick-relief medicine before you exercise. ??? Stop exercising if you have any symptoms. Most people with asthma that's under control should be able to exercise without asthma symptoms. Talk??with your provider about your asthma symptoms during exercise. ?? Last Reviewed Date: 2021 ?? [employer]. All rights reserved. This information is not intended as a substitute for professional medical care. Always follow your healthcare professional's instructions. ?? * Event Display: Provider Clarification Note Please click on pdf link to open report * Event Display: Discharge/Transfer Note Hospital Authored Date: * Cynthia FARNSWORTH, July: PERFORM Event Display: Patient Education Leaflets Authored Date: [id number] COPD: Chronic Coughing ?? 11502 COPD: Chronic Coughing When you have COPD, you may have a cough that lasts for 3 months or longer. It can last for 2 yearsin a row. This is called a chronic cough. A chronic cough with COPD is usually caused by irritationof the airways. What is a chronic cough? Coughing is a normal function of your body. It plays an important role in your breathing system. Coughing helps protect your body. It removes germs, mucus, dust, and other irritants from your lungs. In people who don't have COPD, a cough that lasts longer than 8 weeks is also called a chronic cough. But when you have COPD, a cough can last 3 months or make a lot of mucus. Because symptoms of thecondition can vary or may look like another disease, your healthcare provider will need to confirm that you have COPD. ?? How does COPD cause a chronic cough? COPD is a condition that keeps your lungs from working as they should. The lungs??? job is to get air in and out of the body. Inside the lungs, air moves through tubes called airways. In healthy airways, air moves in and out easily. With COPD, some airways are blocked because of swelling to the lining of the airway and an increase in mucus. This makes breathing harder. It can also cause a chroniccough. COPD is a term for two main conditions. These are chronic bronchitis and emphysema. In both of these conditions, the airways and lungs are damaged. The damage is usually from breathing in irritants over a long period of time. Irritants are particles that irritate the lungs and airways. The main irritant that causes COPD is cigarette smoke. Other irritants are pollution, dust, fumes, and chemicals. When the lungs are always irritated, the body coughs a lot. It does this to try to remove the irritants. This chronic cough is often called a smoker???s cough. With chronic bronchitis, the damaged airways swell. They also make more mucus than normal. Mucus grace thick, sticky fluid. It traps smoke and other harmful irritants you breathe in. This helps protect the airways. But too much mucus can block the airways. And that makes it harder to breathe. The body tries to remove this excess mucus by coughing it up. ?? Treatment for chronic cough There is no cure for COPD. But certain treatments help control a chronic cough: ??? Bronchodilators. These medicines help open the airways. This makes it easier to breathe. Most bronchodilators are taken with an inhaler or a nebulizer. This allows the medicine to go straight to the lungs. ??? Combination medicines. These include a bronchodilator and a steroid. Steroids reduce swelling and mucus production. This helps keep the airways from getting irritated. These medicines are usually taken every day to help prevent coughing and other breathing problems. ??? Antibiotics. Arespiratory infection can lead to more coughing and mucus. Antibiotics are medicines that help treat bacterial infections. ??? Pulmonary rehab (rehabilitation). This program teaches ways to ease COPD symptoms. It includes tips on eating well and exercising to feel better. ??? Oxygen therapy. If your oxygen levels are low, your healthcare provider may prescribe oxygen to help make your breathing easier. Oxygen is breathed in through prongs in the nose or a facemask. Oxygen can be used only at certain times. Or it can be used most of the time. Your healthcare provider will work with you to come up with the best treatment plan for you. ?? Self-care tips for chronic cough You can take steps to reduce your coughing: ??? Stop smoking. Smoking is the main cause of COPD. Stopping smoking is the best thing you can do to treat COPD. If you need help stopping smoking, talk with your healthcare provider. There are medicines that can help you quit. There are also programs, such as the [place]???s [place] From Smoking program. ??? Stay away from secondhand smoke and other irritants. Try to stay away from smoke, chemicals, fumes, pollen, and dust. Don???tlet anyone smoke in your home or around you. Stay indoors on smoggy days. ??? Prevent lung infections. Having COPD increases your risk for respiratory infections such as the flu, pneumonia, and COVID-19. Ask your healthcare provider about the vaccines you need. Take steps to prevent colds and otherlung infections. Stay away from crowds when possible during cold and flu season. Wear a mask when you are in crowded indoor places during cold and flu season. ??? Practice correct handwashing. Wash your hands often with soap and clean, running water for at least 20 seconds. Use hand petrophysicist with a t least 60% alcohol when you can???t wash your hands. ??? Limit dairy products. Dairy products can increase mucus. So have milk, ice cream, and cheese in small amounts. ??? Drink plenty of water. This helps make mucus thinner and easier to cough up. Ask your healthcare provider how much water you should drink. For many people, 6 to 8 glasses (8 ounces each) a day is a good goal. ??? Do breathing e xercises. Learn how to do belly breathing and pursed lip breathing. These exercises can help you breathe better. Try to do each exercise for 5 to 10 minutes every day. ??? Don???t be afraid to be active. Being active may make you short of breath. Even so, it is good for your lungs. Exercise can strengthen the muscles that help you breathe. Ask your healthcare provider about safe exercises for you. ?? When to call your healthcare provider Call your healthcare provider right away if you have any of these problems: ??? Fever of 100.4??F (38??C) or higher, or as directed by your healthcare provider ??? Symptoms that don???t get better, or get worse ??? New symptoms ?? Last Reviewed Date: 2022 ?? [employer]. All rights reserved. This information is not intended as a substitute for professional medical care. Always follow your healthcare professional's instructions. ?? * Cynthia FARNSWORTH, July: PERFORM Event Display: Patient Education Leaflets Authored Date: [id number] COPD Flare-Up ?? [id number] COPD Flare-Up You have had a flare-up of your COPD. COPD (chronic obstructive pulmonary disease) is a common lung disease. It causes your airways to get irritated and narrower. This makes it harder for you to breathe. Emphysema and chronic bronchitis are both types of COPD. This is a long-term (chronic) condition. This means you always have it. Sometimes it gets worse. When this happens, it's called a flare-up. Symptoms of COPD People with COPD may have symptoms most of the time. In a flare-up, your symptoms get worse. These symptoms may mean you are having a flare-up: ??? Shortness of breath, shallow or rapid breathing, orwheezing that gets worse ??? Lung infection ??? Cough that gets worse ??? More mucus (or sputum), thicker mucus, or mucus of a different color ??? Tiredness, less energy, or trouble doing your normalactivities ??? Fever ??? Chest tightness ??? Your symptoms don???t get better even when you use your normal medicines, inhalers, and nebulizer ??? Trouble talking ??? You feel confused ?? Causes of flare-ups Unfortunately, a flare-up can happen even if you did everything right, and even if you followed your healthcare provider???s instructions. Some causes of flare- ups are: ??? Cold weather ??? Smoking or secondhand smoke ??? Use of e- cigarettes or vaping products ??? Colds, the flu, or respiratory infections ??? Air pollution ??? Sudden change in the weather ??? Dust, vapors, gases, irritating chemicals, or strong fumes ??? Not taking your medicines as prescribed ??? Indoor pollution such as burning wood, smoke from home cooking, or heating fuels ?? Home care Here are some things you can do at home to treat a flare-up: ??? Keep calm and try not to panic. This makes it harder to breathe, and keeps you from doing the right things. ??? Don???t smoke or be around others who are smoking. If you smoke, quit. Smoking is the main cause of COPD. Quitting will help you be able to better manage your COPD. Don't use e-cigarettes or vaping products either. Ask your healthcare provider about ways to help you quit smoking. ??? Before drinking extra fluids during flare-ups to loosen the mucus, always talk with your healthcare provider first. ??? Eat a healthy, balanced diet. This is important to staying as healthy as possible. So is trying to stay at your ideal weight. Being overweight or underweight can affect your health. Make sure you have a lot of fruits and vegetables every day. And also eat balanced portions of whole grains, lean meats and fish, and low-fat dairy products. ??? Use your inhalers and nebulizer, if you have one, as you have been told to. When using a metered dose inhaler or nebulizer, it's very important to use the proper techniques.If you have any questions about how to use your device, contact your healthcare provider or refer to the user manual. ??? If you were given antibiotics, take them until they are used up or your provider tells you to stop. It???s important to finish the antibiotics even though you feel better. This will make sure the infection has cleared. ??? If you were given a steroid, finish it even if you feel better. ??? Learn the names of your medicines, as well as how and when to use them. Talk with yourprovider about other conditions you have and their treatment and how it may affect your COPD. ??? Oxygen may be prescribed if tests show that your blood contains too little oxygen. Ask your provider about long-term oxygen therapy. ??? Coping tips for shortness of breath include: o Exercise. Try to be as active as possible. This will improve energy levels and strengthen your muscles so you can do more. o Breathing methods. Ask your healthcare provider or nurse to show you how to do pursed-lip breathing. o Balance rest and activity. Each day, try to balance rest periods with activity. For example, you might start the day with getting dressed and eating breakfast. Then you can relax and read the paper. After that, take a brief walk. And then sit with your feet up for a while. o Pulmonary rehab (rehabilitation). Community-based and home-based programs work as well as hospital-based programs as long as they are as often and as intense. Standard home-based pulmonary rehab programs help shortness of breath in people with COPD. Supervised, traditional pulmonary rehab remains the best optionfor people with COPD. These programs help with managing your disease and also help with breathing methods, exercise, support, and counseling. To find one, ask your provider or call your local hospital. Also talk with your healthcare provider about which rehab or self- management program is best for you. ?? Preventing a flare-up Flare-ups happen. But the best way to treat one is to prevent it before it starts. Here are some pointers: ??? Don???t smoke or be around others who are smoking. Avoid using e-cigarettes due to theirharmful side effects. ??? Take your medicines as discussed with your healthcare provider. ??? Talk with your provider about getting a flu shot every year. Also find out if you need a pneumonia shot. ??? If there is a weather advisory warning to stay indoors, try to stay inside when possible. ??? Try to eat healthy, exercise, and get plenty of sleep. ??? Try to stay away from things that normally set you off. These include dust, chemical fumes, hairsprays, or strong perfumes. ?? Follow-up care Follow up with your healthcare provider as advised. If a culture was done, you will be told if your treatment needs to be changed. You can call as directed??for the results. If X-rays were done, you will be told of any new findings that may affect your care. During each appointment, talk with your healthcare provider about your ability to: ??? Peck in yournormal environment ??? Correctly use inhaler (or your medicine delivery systems) ??? Peck with other conditions you have and their treatments and how they may affect your COPD ?? Call 911 Call 911 if any of these occur: ??? Wheezing or shortness of breath does not get better with treatment ??? Chest pain or chest tightness ??? Feeling lightheaded or dizzy ??? You have trouble breathing ??? You feel confused or it???s hard to wake you up ??? You faint or lose consciousness ??? You have a rapid heart rate ??? You have new pain in your chest, arm, shoulder, neck, or upper back ?? When to seek medical advice Call your healthcare provider right away??if??any of these occur: ??? Fever of 100.4??F??(38??C) orhigher, or as directed by your healthcare provider ??? Coughing up lots of dark-colored or bloody mucus (sputum) ??? You don't start to get better within 24 hours or new symptoms develop ??? Swellingof your ankles gets worse ??? Weakness ?? Last Reviewed Date: 2021 ?? [id number] [employer]. All rights reserved. This information is not intended as a substitute for professional medical care. Always follow your healthcare professional's instructions. ?? * Jessica Lopez RN: PERFORM, SIGN, VERIFY Event Display: Radiology Results Scanned Authored Date: Patient: VIDHYA ADAM Age: 71 years Sex: Female : 1950 Associated Diagnoses: None Author: Jessica Lopez RN Findings Problem Related to Alteration in Genitourinary : Alteration in Genitourinary Function/new 09/10/2022 2:00 EST Alteration in Status Related to Urinary retention Goals & Outcomes, Genitourinary Pt will achieve normal/improved fluid balance, Pt will maintainadequate GI function appropriate for pt Interventions, Assess bladder for distention and pt's ability to void, Use bladder scanner as needed to monitor residuals BH Goals/Interventions, Genitourinary Yes Genitourinary, Problem Start 09/10/2022 2:26 Reviewed Plan with, Genitourinary Patient Patient Progression, Genitourinary Patient progressing according to plan Genitourinary, Problem Ongoing Yes . Evaluation Patient admitted to unit from ED; came in for rai cath leakage; AOx3 able to make all needs known. denies pain/ discomfort; oxygen in use at 2L via NC. Tele monitor with NSR; Patient noted with unfrequent productive coug. coughing clear phlegm. Rai cath [address]; draining clear yellow urine; home meds was unable to complete; patient unable to remember all her meds and requests to call her daughter in the morning. No distress noted at this time. call blee in use and insure ability to use. Will continue to monitor. . * BHSPowerscribe , CIS S: TRANSCRISHELL Silveira MD, Bubba S: VERIFY Event Display: Result: Authored Date: [id number] Chest 2 Views Frontal and Lat Hx of Present Illness: Pt reports leaking rai catheter. Pt denies pain or discomfort.; Reason: Other:; Shortness of Breath; Clinical Question(s): Pneumonia; Hyperexpansion COMPARISON: None. FINDINGS: LINES AND TUBES: None. LUNGS AND PLEURA: Prominence of pulmonary vasculature. This is nonspecific. No focal opacity identified. Low lung volumes may accentuate the appearance. No pleural effusion. No pneumothorax. HEART, MEDIASTINUM AND KOLTON: Heart is normal in size. Normal mediastinal and hilar contour. BONES AND SOFT TISSUES: No acute abnormality. IMPRESSION: No specific findings of pneumonia. WSN: [id number] Ordering Physician: Delaney Simmons Dictated By: Bubba Silveira MD Dictated Date/Time: 09/09/22 12:57 p Reviewed By: Bubba Silveira MD Signed By: Bubba Silveira MD Signed Date/Time: 09/09/22 12:57 pm Transcribed By: SOLOMON Transcribed Date/Time: 09/09/22 12:56 pm Patient Care team information Care Team Personnel Name: Tk Iqbal RN Position: [facility] RN Supv Member Role: Primary Care Nurse Name: Delaney De Los Santos RN Position: [facility] RN Member Role: Primary Care Nurse Name: Cande Kennedy RN Position: [facility] AMB Nurse Member Role: Primary Care Nurse Name: Batool Summers Position: [facility] RN Member Role: Primary Care Nurse Name: Lainey Walker LPN Position: [facility] RN Member Role: Primary Care Nurse Name: Yanira Trevizo Position: [facility] RN Member Role: Primary Care Nurse Name: Rafael Hicks RN Position: [facility] RN Member Role: Primary Care Nurse Name: Vasyl Catherine RN Position: [facility] RN Member Role: Primary Care Nurse Name: Eve Masters RN Position: [facility] RN Member Role: Primary Care Nurse Name: Jenelle Jay RN Position: [facility] RN Member Role: Primary Care Nurse Name: Elizabeth Barrios RN Position: [facility] RN Member Role: Primary Care Nurse Name: Jignesh Stoner RN Position: [facility] RN Member Role: Primary Care Nurse Name: Cherise Hamm MD Position: [facility] Outreach Member Role: PCP Address: Address: [address] [place] [address]- [place] Name: Chyna Aguilar RN Position: [facility] RN Member Role: Primary Care Nurse Address: Address: [address] [facility] [place] [address]- [place] Name: John Guaman RN Position: [facility] RN Member Role: Primary Care Nurse Name: Maria M Vance RN Position: [facility] RN Member Role: Primary Care Nurse Name: Ziyad SPRINGER Attending Position: [facility] ED Medicine MD Name: Ara Osullivan Position: [facility] ED OA Charge Member Role: ED Associate Name: J Luis Gilmore Position: [facility] ED TA [facility] Name: Melodie Lane RN Position: [facility] ED RN W/OE and Tasks Member Role: Patient Care Provider Care Team Related Persons Name: STEPHANI ADAM Address: [address] [address] Name: GEETHA NORMAN Address: [place] [address]
--- OUTSIDE RECORDS SUMMARY | 2024-01-06 09:18 | XMS_ITS | Continuity of Care Document ---
Author Organization [facility] ter Address [address] [place] [address]- Care Team Providers Care Leg Assembler Name Role Phone Cherise Hamm MD Primary Care Physician Encounter [facility] Date(s): 07/14/22 - 07/14/[address] [address]- Encounter Diagnosis Molina catheter problem(Final) - 07/14/22 Discharge Disposition: A-D/C Home Attending Physician: Leobardo [...] 0 Refills, Maintenance, 07/14/22 20:49:00 EST, Solution, [facility]/pharmacy #[id number], Partial fill upon patient request if the prescription is for a schedule II opioid drug., 168, , 01... Start Date: 07/14/22 Status: Ordered albuterol CFC free 90 mcg/inh inhalation aerosol 1, puffs, Inhalation, 4 times a day, PRN, # 6.7 Gm, Refills 0, Tot. Refills 0, Maintenance, 07/13/22 12:42:00 EST, Aerosol, Route to Pharmacy Electronically, [id number], [facility], 168, cm, 07/12/22 18:17:00 ES... Start Date: 07/13/22 Status: Ordered albuterol-ipratropium 3 mg-0.5 mg/3 ml inhalation solution 3 mL, BAND Nebulizer, 4 times a day, PRN Wheezing/Shortness of Breath, # 90 mL, 0 Refills, Maintenance, 07/13/22 12:36:00 EST, Inhalation Solution, [facility], Partial fill upon patientrequest if [...] days, # 5 tablet, 0 Refills, Acute 07/18/22 9:14:00 EST, 07/13/22 9:14:00 EST, Tablet, [facility], Partial fill upon patient request if the prescription is for a schedule II opioid drug.... Start Date: 07/13/22 Stop Date: 07/18/22 Status: Ordered lisinopril 10 mg oral tablet [...] opioid drug. Start Date: 03/16/22 Status: Ordered predniSONE 20 mg oral tablet 1 tablet = 20 mg, By Mouth, Daily, for 2 days, # 2 tablet, 0 Refills, Acute 07/15/22 9:13:00 EST, 07/13/22 9:13:00 EST, Tablet, [facility], Partial fill upon patient request if the prescription is for a schedule II opioid drug., 168, cm,... Start Date: 07/13/22 Stop Date: 07/15/22 Status: Ordered simvastatin 40 mg oral tablet [...] Oxygen Saturation [94-100 %] 92 % *L* (07/14/22 10:09 PM) 95 % (07/14/22 8:53 PM) 91 % *L* (07/14/22 8:01 PM) Pulse Rate [55-90 bpm] 76 bpm (07/14/22 10:09 PM) 75 bpm (07/14/22 8:01 PM) Blood Pressure [90-138/55-84 mm Hg] 162/49mm Hg *H* (07/14/22 10:09 PM) 143/61mm Hg *H* (07/14/22 8:01 PM) Respiratory Rate [16-30 br/min] 22 br/min (07/14/22 10:09 PM) 22 br/min (07/14/22 8:01 PM) Temperature [96.8-100.4 DegF] 97.9 DegF (07/14/22 10:09 PM) 98 DegF (07/14/22 8:01 PM) Mode of Delivery (Oxygen) Room air (07/14/22 10:09 PM) Room air (07/14/22 8:01 PM) Temperature Route Oral (07/14/22 10:09 PM) Oral (07/14/22 8:01 PM) Social History Social History Type Response Smoking Status Former smoker; Tobac co user in household: No entered on: 01/17/17 Sex Patient Care team information Care Team Personnel Name: Vernon Estrella RN Position: [facility] RN Member Role: Primary Care Nurse Name: Tk Iqbal RN Position: [facility] RN Supv Member Role: Primary Care Nurse Name: Delaney De Los Santos RN Position: [facility] RN Member Role: Primary Care Nurse Name: Cande Kennedy RN Position: [facility] AMB Nurse Member Role: Primary Care Nurse Name: Batool Summers Position: [facility] RN Member Role: Primary Care Nurse Name: Stephani Wellington RN Position: [facility] RN Member Role: Primary Care Nurse Name: Yanira Trevizo Position: [facility] RN Member Role: Primary Care Nurse Name: Vasyl Catherine RN Position: [facility] RN Member Role: Primary Care Nurse Name: Eve Masters RN Position: [facility] RN Member Role: Primary Care Nurse Name: Jenelle Jay RN Position: [facility] RN Member Role: Primary Care Nurse Name: Elizabeth Barrios RN Position: [facility] RN Member Role: Primary Care Nurse Name: Jignesh Stoner RN Position: [facility] RN Member Role: Primary Care Nurse Name: Cherise Hamm MD Position: [facility] Outreach Member Role: PCP Address: Address: [address] [place] [address]- [place] Name: Chyna Aguilar RN Position: [facility] RN Member Role: Primary Care Nurse Address: Address: [address] [place] [address]- [place] Name: John Guaman RN Position: [facility] RN Member Role: Primary Care Nurse Name: Leobardo Dumont MD Position: [facility] ED Medicine MD Member Role: Admitting Physician Address: Address: [address] [place] [address]- Name: Tariq Gillespie Position: [facility] Associate Professional Member Role: ED Physician Bale Breaker Operator Address: Address: [address] [place] [address]- [place] Name: Audrey Torrez RN Position: [facility] ED RN W/OE and Tasks Member Role: Patient Care Provider Name: Rosy Christianson RN Position: [facility] ED RN W/OE and Tasks Member Role: Patient Care Provider Name: Yisel Johansen Position: [facility] ED TA [facility] Care Team Related Persons Name: KIA STEPHANI Address: home [address] [place] [address] Name: GEETHA NORMAN Address: [place] [address]
--- OUTSIDE RECORDS SUMMARY | 2024-01-06 09:18 | XMS_ITS | Continuity of Care Document ---
Author Organization [facility] ter Address [address] [place] [address]- Care Team Providers Care Finish Grinder Name Role Phone Hansel GONZALEZ, Cherise Bolden Primary Care Physician [phone] Encounter [facility] Date(s): 11/24/23 - 11/24/[address] [address]- Discharge Disposition: A-D/C Home Attending Physician: Enoch Self MD Admitting Physician: Enoch Self MD Referring Physician: Not on Staff, Referring [...] 2 Refills, Maintenance, 01/08/23 12:40:00 EDT, Solution, [facility]/pharmacy #[id number], ICD 10 - J45.901, [...] 3 Refills, Maintenance, 11/01/22 11:09:00 EDT, Powder, [facility]/pharmacy #[id number], Partial fill upon patient [...] 0 Refills, Maintenance, 08/01/22 11:21:00 EST, Solution, [facility]/pharmacy #[id number], Partial fill upon patient [...] 11/01/22 11:29:00 EDT, Route to Pharmacy Electronically, [facility]/pharmacy #[id number], Partial fill upon patient [...] oldest [Reference Range]: 1 2 3 Height 165 cm (11/24/23 1:07 PM) Oxygen Saturation [94-100 %] 98 % (11/24/23 7:26 PM) 100 % (11/24/23 4:44 PM) 100 % (11/24/23 1:07 PM) Pulse Rate [55-90 bpm] 70 bpm (11/24/23 7:26 PM) 67 bpm (11/24/23 4:44 PM) 68 bpm (11/24/23 1:07 PM) Blood Pressure [90-138/55-84 mm Hg] 124/67mm Hg (11/24/23 7:26 PM) 143/76mm Hg *H* (11/24/23 4:44 PM) 128/55mm Hg (11/24/23 1:07 PM) Respiratory Rate [16-30 br/min] 16 br/min (11/24/23 7:26 PM) 16 br/min (11/24/23 4:44 PM) 16 br/min (11/24/23 1:07 PM) Temperature [96.8-100.4 DegF] 97.9 DegF (11/24/23 7:26 PM) 97.7 DegF (11/24/23 1:07 PM) Liters per Minute 3 L/min (11/24/23 7:26 PM) 3 L/min (11/24/23 4:44 PM) 3 L/min (11/24/23 1:07 PM) Mode of Delivery (Oxygen) Nasal cannula (11/24/23 7:26 PM) Nasal cannula (11/24/23 4:44 PM) Nasal cannula (11/24/23 1:07 PM) Blood pressure sites Arm, left (11/24/23 7:26 PM) Arm, left (11/24/23 4:44 PM) Arm, left (11/24/23 1:07 PM) Temperature Route Oral (11/24/23 7:26 PM) Oral (11/24/23 1:07 PM) Dry Weight 140 kg (11/24/23 1:07 PM) Dry Weight Obtained Via Patient/family stated (11/24/23 1:07 PM) Social History Social History Type Response Smoking Status Former smoker; Tobac co user in household: No entered on: 01/17/17 Sex Note * Karina Ryan NP: PERFORM, SIGN, VERIFY Event Display: Patient Education Handout Authored Date: [id number] Patient Care team information Care Team Personnel Name: Tala Curiel LPN Position: S RN Member Role: Primary Care Nurse Name: Tk Iqbal RN Position: [facility] SN RN Member Role: Primary Care Nurse Name: Jovanny Stuart RN Position: S RN Member Role: Primary Care Nurse Name: Delaney De Los Santos RN Position: [facility] SN RN Member Role: Primary Care Nurse [...] LPN Position: [facility] RN Member Role: Primary Care Nurse Name: Vasyl Catherine RN Position: [facility] RN Member Role: Primary Care Nurse Name: Eve Masters RN Position: [facility] RN Member Role: Primary Care Nurse Name: Elizabeth Barrios RN Position: [facility] RN Member Role: Primary Care Nurse Name: Jignesh Stoner RN Position: [facility] RN Member Role: Primary Care Nurse Name: Rosy Arriaza RN Position: [facility] RN Member Role: Primary Care Nurse Name: Cherise Hamm MD Position: S Outreach Member Role: PCP Address: Address: [address] [place] [id number] Name: John Guaman RN Position: S RN Member Role: Primary Care Nurse Name: Rocio Andrade RN Position: S RN Member Role: Primary Care Nurse Care Team Related Persons Name: STEPHANI ADAM Address: [address] [place] [address] Name: NATHEN LLOYD
--- OUTSIDE RECORDS SUMMARY | 2024-01-06 09:18 | XMS_ITS | Continuity of Care Document ---
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 Diabetes(Final) - 06/28/22 Discharge Disposition: A-D/C Home Attending Physician: Alin [...] 0 Refills, Maintenance, 06/19/22 11:05:00 EST, Tablet, [id number], Partial fill upon patient request if [...] Range]: 1 2 Oxygen Saturation [94-100 %] 100 % (06/29/22 1:41 AM) 98 % (06/28/22 8:52 PM) Pulse Rate [55-90 bpm] 67 bpm (06/29/22 1:41 AM) 75 bpm (06/28/22 8:52 PM) Blood Pressure [90-138/55-84 mm Hg] 130/ 70mm Hg (06/29/22 1:41 AM) 140/75mm Hg *H* (06/28/22 8:52 PM) Respiratory Rate [16-30 br/min] 20 br/mi n (06/29/22 1:41 AM) 20 br/min (06/28/22 8:52 PM) Temperature [96.8-100.4 DegF] 98.4 DegF (06/29/22 1:41 AM) 98.5 DegF (06/28/22 8:52 PM) Liters per Minute 2 L/min (06/29/22 1:41 AM) Mode of Delivery (Oxygen) Nasal cannula (06/29/22 1:41 AM) Room air (06/28/22 8:52 PM) Temperature Route Oral (06/29/22 1:41 AM) Oral (06/28/22 8:52 PM) Social History Social History Type Response Smoking Status Former smoker; Tobac co user in household: No entered on: 01/17/17 Sex Note * Lexi GONZALEZ, Geena Ahuja: PERFORM, SIGN, VERIFY Event Display: Patient Education Handout Authored Date: * Lexi GONZALEZ, Geena Ahuja: PERFORM Event Display: Patient Education Leaflets Authored Date: Diabetes with High Blood Sugar ?? [id number] Diabetes with High Blood Sugar You have been treated for high blood sugar (hyperglycemia). This may be because of an infection or other illness. This may also be from eating too many sweets or starches. Or it may be from not taking enough insulin. Or not taking other diabetes medicine as prescribed. Home care Check your blood sugar level at least 2 times a day. Write down the results. Do this before breakfast. And do it again before dinner. If you take insulin, also write down your routine insulin dose. Note any other doses you needed based on your sliding scale. Or as advised by your healthcare provider. Do this for the next 3 to 5 days. High blood sugar may cause symptoms that you can learn to spot. These include: ??? Peeing often ??? Thirst ??? Headache ??? Breath that smells fruity ??? Upset stomach (nausea) or vomiting ??? Belly pain If you have symptoms of high blood sugar, use a blood test to find out what your blood sugar level is. If it is above your normal range, use the sliding scale regular insulin dose from your healthcare provider. Call your provider for advice if you weren't given a range for your insulin dose. If your blood sugar is over 240 mg/dL, check your pee (urine) for ketones. ?? Follow-up care Follow up with your healthcare provider, or as advised. You may need to meet with your provider in the next week. You'll likely look at your blood sugar records together. You may need to change your dose of insulin or other diabetes medicine. You may also be advised to use a continuous glucose monitoring system. This is to help give you and your healthcare team a broader picture of your blood sugar control. ?? When to get medical advice Call your healthcare provider right away if these occur: ??? Symptoms of high blood sugar that don't get better with the treatment your provider advised. This is especially true if you also have ketones in your urine. ??? Blood sugar over 300 mg/dL. If you can???t reach your provider, go to a hospital emergency room or urgent care center. ?? Call 911 Call 911 if you have any of these: ??? Confusion ??? Dizziness, lightheadedness, or loss of consciousness ??? Shortness of breath ??? Chest pain ??? Weakness of an arm, leg, or 1 side of the face ???Sudden trouble with speech or vision ?? Last Reviewed Date: 2022 ?? [id number] [employer]. All rights reserved. This information is not intended as a substitute for professional medical care. Always follow your healthcare professional's instructions. ?? Patient Care team information Care Team Personnel Name: Vernon Estrella RN Position: [facility] RN Member Role: Primary Care Nurse Name: Tk Iqbal RN Position: [facility] RN Supv Member Role: Primary Care Nurse Name: Delaney De Los Santos RN Position: [facility] RN Member Role: Primary Care Nurse Name: Cande Kennedy RN Position: [facility] AMB Nurse Member Role: Primary Care Nurse Name: Batool Summers Position: [facility] RN Member Role: Primary Care Nurse Name: Abril Ye RN Position: [facility] RN Member Role: Primary Care Nurse Name: Stephani Wellington RN Position: [facility] RN Member Role: Primary Care Nurse Name: Yanira Trevizo Position: [facility] RN Member Role: Primary Care Nurse Name: Vasyl Catherine RN Position: [facility] RN Member Role: Primary Care Nurse Name: Jenelle Jay RN Position: [facility] RN Member Role: Primary Care Nurse Name: Elizabeth Barrios RN Position: [facility] RN Member Role: Primary Care Nurse Name: Jignesh Stoner RN Position: [facility] RN Member Role: Primary Care Nurse Name: Cherise Hamm MD Position: [facility] Outreach Member Role: PCP Address: Address: [address] [place] [address]- [place] Name: Chyna Aguilar RN Position: [facility] RN Member Role: Primary Care Nurse Address: Address: [address] [place] [address]- Name: John Guaman RN Position: [facility] RN Member Role: Primary Care Nurse Name: Alin Thomas MD Position: [facility] ED Medicine MD Member Role: ED Attending Physician Address: Address: [address] [place] [address] Name: Lexi GONZALEZ, Geena Ahuja Position: [facility] Resident Member Role: ED Resident Address: Address: [address] [place] [address] Name: Maria De Jesus Swan Position: [facility] ED TA [facility] Member Role: Talent Director Name: Melodie Lane RN Position: [facility] ED RN W/OE and Tasks Member Role: Patient Care Provider Care Team Related Persons Name: STEPHANI ADAM Address: home [address] [place] [id number] Name: GEETHA NORMAN Address: [place] [address]
--- OUTSIDE RECORDS SUMMARY | 2024-01-06 09:18 | XMS_ITS | Continuity of Care Document ---
Author Organization [facility] ter Address [address] [place] [id number]- Care Team Providers Care Optical Engineering Manager Name Role Phone Cherise Hamm MD Primary Care Physician [phone] Encounter [facility] Date(s): 12/28/23 - 12/29/[address] [address]- Encounter Diagnosis Mouth pain(Final) - 12/28/23 Jaw pain(Final) - 12/28/23 Gingival ulcer(Final) - 12/28/23 Discharge Disposition: A-D/C Home Attending Physician: Riddhi Mejia MD Admitting Physician: Riddhi Mejia MD Referring Physician: Not on Staff, Referring [...] 2 Refills, Maintenance, 01/08/23 12:40:00 EDT, Solution, [facility]/pharmacy #[id number], ICD 10 - J45.901, 16... [...] 3 Refills, Maintenance, 11/01/22 11:09:00 EDT, Powder, [facility]/pharmacy #[id number], Partial fill upon patient request [...] 0 Refills, Maintenance, 08/01/22 11:21:00 EST, Solution, [facility]/pharmacy #[id number], Partial fill upon patient request [...] 11/01/22 11:29:00 EDT, Route to Pharmacy Electronically, [facility]/pharmacy #[id number], Partial fill upon patient request [...] 3 Oxygen Saturation [94-100 %] 96 % (12/29/23 2:10 AM) 95 % (12/28/23 10:01 PM) 96 % (12/28/23 9:14 PM) Pulse Rate [55-90 bpm] 65 bpm (12/29/23 2:10 AM) 72 bpm (12/28/23 10:01 PM) 72 bpm (12/28/23 9:14 PM) Blood Pressure [90-138/55-84 mm Hg] 113/64mm Hg (12/29/23 2:10 AM) 134/61mm Hg (12/28/23 10:01 PM) 136/41mm Hg (12/28/23 9:14 PM) Respiratory Rate [16-30 br/min] 19 br/min (12/29/23 2:10 AM) 16 br/min (12/28/23 10:01 PM) 17 br/min (12/28/23 9:14 PM) Temperature [96.8-100.4 DegF] 97.8 DegF (12/28/23 9:14 PM) Liters per Minute 2.5 L/min (12/29/23 2:10 AM) 2.5 L/min (12/28/23 10:01 PM) 2 L/min (12/28/23 9:14 PM) Mode of Delivery (Oxygen) Nasal cannula (12/29/23 2:10 AM) Nasal cannula (12/28/23 10:01 PM) Nasal cannula (12/28/23 9:14 PM) Blood pressure sites Arm, right (12/29/23 2:10 AM) Arm, left (12/28/23 10:01 PM) Arm, left (12/28/23 9:14 PM) Temperature Route Oral (12/28/23 9:14 PM) Social History Social History Type Response Smoking Status Former smoker; Tobac co user in household: No entered on: 01/17/17 Sex Note * Yecenia Block DO: PERFORM Event Display: Patient Education Leaflets Authored Date: [id number] Canker Sore ?? [id number] Canker Sore A canker sore is a painful sore on the lining of the mouth. It???s also called an aphthous ulcer.??It is most painful during the first few days, and it lasts about 7 to 14 days before going away. Causes Canker sores are not cold sores or fever blisters. They are not contagious, so they are not spread by contact. The exact cause of canker sores is not clear, but there are various things that can trigger them in different people. ??? Mild injury, such as biting the inside of the mouth, lip, or cheek, or dental procedures ??? Stress ??? Viral infections ??? Hormonal changes ??? Poor diet, or lack of certain nutrients, including B vitamins and iron ??? Foods that can irritate the mouth, including tomatoes, citrus fruits, and some nuts (foods that are acidic or contain bitter substances called tannins) ??? Irritating chemicals, such as those in some toothpastes and mouthwashes ??? Some chronic i llnesses ?? Symptoms Canker sores occur on the lining of the mouth. They can be inside the cheeks or lips, on the roof of the mouth, at the base of the gums, on the tongue, or in the back of the throat. Canker sores: ??? Are small and flat (not raised) ??? Can be white or yellowish bumps that are red around the edges or have a red halo ??? Are usually small in size, roundish, and in groups ??? Cause pain or burning Canker sores don't leave a scar. But they usually come back. ?? Home care The goals of canker sore treatment are to decrease the pain, speed healing, and prevent sores from coming back. No single treatment works for everyone. Try different methods to see what works best. General care ??? You may find that soft, pxhy-hg-enyo foods cause less pain. ??? Drink with a straw to direct liquids away from the sore. ??? Use a soft-bristle toothbrush, and brush your teeth gently. ??? Don't eat acidic, salty, or spicy foods. These may irritate the canker sores. ??? Don't eat rough or crunchy foods, such as crusty bread or potato chips. These kinds of foods can hurt the inside of your mouth or scrape your canker sores. Medicines You can try [id number] medicines that cover the sores and numb them. This protects the sores while they heal and helps reduce pain. Homemade rinses and solutions You can use these solutions as mouth rinses. Spit them out after using them. You can also dab them on the sores. You can repeat these treatments as often as needed: ??? Rinse your mouth with 1/2 teaspoon of salt in 1 glass of warm water. ??? Mix equal amounts of hydrogen peroxide and water. You canuse this as a mouthwash or dab it on sores with a cotton swab. You can also add sodium bicarbonate to this to make a paste, and then dab it on sores. ?? Follow-up care Follow up with your healthcare provider, or as advised. If a culture was done, you can call as directed for the results. You will be told if your treatment needs to be changed. ?? Call 911 Call 911 if any of the following occur: ??? Trouble breathing ??? Inability to swallow ??? Extreme drowsiness or trouble waking up ??? Fainting or loss of consciousness ??? Fast heart rate ??? Seizure ??? Stiff neck ?? When to seek medical advice Call your healthcare provider right away if any of the following occur: ??? You have a fever of 100.4??F (38??C) or higher, or as directed by your healthcare provider ??? You are ??? You just had surgery or another medical procedure, or you were just discharged from the hospital ??? It's too painful to eat or swallow ??? The sore does not go away within 2 weeks ?? Last Reviewed Date: 2022 ?? [id number] [employer]. All rights reserved. This information is not intended as a substitute for professional medical care. Always follow your healthcare professional's instructions. ?? Patient Care team information Care Team Personnel Name: Tala Curiel LPN Position: S RN Member Role: Primary Care Nurse Name: Tk Iqbal RN Position: [facility] SN RN Member Role: Primary Care Nurse Name: Jovanny Stuart RN Position: S RN Member Role: Primary Care Nurse Name: Delaney De Los Santos RN Position: [facility] SN RN Member Role: Primary Care Nurse Name: Batool Sweet RN Position: S RN Member Role: Primary Care Nurse Name: Michelle Ricketts RN Position: S RN Member Role: Primary Care Nurse Name: Lainey Walker LPN Position: S RN Member Role: Primary Care Nurse Name: Yanira Trevizo RN Position: S RN Member Role: Primary Care Nurse Name: Batool Cervantes RN Position: S RN Member Role: Primary Care Nurse Name: Fern Franklin LPN Position: S RN Member Role: Primary Care Nurse Name: Vasyl Catherine RN Position: [facility] RN Member Role: Primary Care Nurse Name: Eve Masters RN Position: [facility] RN Member Role: Primary Care Nurse Name: Elizabeth Barrios RN Position: [facility] RN Member Role: Primary Care Nurse Name: Jignesh Stoner RN Position: [facility] RN Member Role: Primary Care Nurse Name: Rosy Arriaza RN Position: S RN Member Role: Primary Care Nurse Name: Cherise Hamm MD Position: S Outreach Member Role: PCP Address: Address: [address] [place] [id number] Name: John Guaman RN Position: S RN Member Role: Primary Care Nurse Name: Rocio Andrade RN Position: S RN Member Role: Primary Care Nurse Care Team Related Persons Name: KIA STEPHANI Address: [address] [address] Name: NATHEN LLOYD
--- OUTSIDE RECORDS SUMMARY | 2024-01-06 09:18 | XMS_ITS | Continuity of Care Document ---
Author Organization [facility] ter Address [address] [place] [address]- Care Team Providers Care Print Manager Name Role Phone Hansel GONZALEZ, Cherise Bolden Primary Care Physician Encounter [facility] [place] Date(s): 09/25/21 - 09/25/[address] [address]- Discharge Disposition: A-D/C Home Attending Physician: Burton [...] opioid drug. Start Date: 06/30/21 Status: Ordered Augmentin 875 mg-125 mg oral tablet 1 tablet, By Mouth, Every 12 hours, for 7 days, # 14 tablet, 0 Refills, Acute 10/02/21 14:00:00 EDT, 09/25/21 14:00:00 EDT, Tablet, [facility]/pharmacy #[id number], Partial fill upon patient request if the prescription is for a schedule II opioid drug. Start Date: 09/25/21 Stop Date: 10/02/21 Status: Ordered Azithromycin 5 Day Dose Pack 250 mg oral tablet 1 tablet = 250 mg, By Mouth, Daily, for 4 days, # 4 tablet, 0 Refills, Acute 09/29/21 14:00:00 EDT,09/25/21 14:00:00 EDT, Tablet, [facility]/pharmacy #[id number], Partial fill upon patient request if the prescription is for a schedule II opioid drug. Start Date: 09/25/21 Stop Date: 09/29/21 Status: Ordered Diflucan 150 mg oral tablet 1 tablet = 150 mg, By Mouth, Once, # 1 tablet, 0 Refills, Soft Stop, 08/01/21 23:58:00 EST, Tablet,[facility]/pharmacy #[id number], Partial fill upon [...] Start Date: 06/30/21 Status: Ordered nystatin topical 207188 u/gm powder 1 application, Topically, 2 times [...] Active Obesity(Confirmed) Active Postmenopausal bleeding(Confirmed) Active Results Radiology Reports * Exam Date Time Procedure Performing Provider Status 09/25/21 11:29 AM Chest 2 Views Frontal and Lat Zebian , Sharifa; Auth (Verified) Notes: (Chest 2 Views Frontal and Lat) Reason For Exam: Shortness of Breath, Fever;Other: RESULT: Chest 2 Views Frontal and Lat Chest 2 Views Frontal and Lat Hx of Present Illness: Pt reports coughing yesterday, right sided chest pain with inspiration today. Hx COPD and CHF; Reason: Other:; Shortness of Breath, Fever; Clinical Question(s): Pneumonia COMPARISON: Prior chest radiographs, most recently June 29, 2021. FINDINGS: LINES AND TUBES: None. LUNGS AND PLEURA: Congested pulmonary vasculature with possible mild pulmonary edema, similar to slightly worse when compared with the prior study. Opacities at the posterior lung bases on the lateral view may be due to atelectasis, more confluent edema, or early consolidation. HEART, MEDIASTINUM AND KOLTON: The cardiomediastinal silhouette is unchanged. BONES AND SOFT TISSUES: No acute abnormality. Moderate chronic glenohumeral degenerative changes bilaterally. IMPRESSION: 1. Congested pulmonary vasculature with possible mild pulmonary edema, similar to slightly worse when compared with the prior study. 2. Opacities at the posterior lung bases on the lateral view may be due to atelectasis, more confluent edema, or early consolidation. WSN: [id number] Ordering Physician: Marifer Pickering Dictated By: Sabas Amin MD Dictated Date/Time: 09/25/21 11:38 a Reviewed By: Sabas Amin MD Signed By: Sabas Amin MD Signed Date/Time: 09/25/21 11:38 am Transcribed By: SOLOMON Transcribed Date/Time: 09/25/21 11:35 am Vital Signs Most recent to oldest [Reference Range]: 1 2 3 Oxygen Saturation [94-100 %] 97 % (09/25/21 5:55 PM) 98 % (09/25/21 3:16 PM) 96 % (09/25/21 11:12 AM) Pulse Rate [55-90 bpm] 71 bpm (09/25/21 5:55 PM) 75 bpm (09/25/21 3:16 PM) 70 bpm (09/25/21 11:12 AM) Blood Pressure [90-138/55-84 mm Hg] 135/60mm Hg (09/25/21 5:55 PM) 138/60mm Hg (09/25/21 3:16 PM) 147/58mm Hg *H* (09/25/21 11:12 AM) Respiratory Rate [16-30 br/min] 22 br/min (09/25/21 5:55 PM) 22 br/min (09/25/21 3:16 PM) 24 br/min (09/25/21 11:12 AM) Temperature [96.8-100.4 DegF] 98.4 DegF (09/25/21 11:12 AM) Mode of Delivery (Oxygen) Room air (09/25/21 5:55 PM) Room air (09/25/21 3:16 PM) Room air (09/25/21 11:12 AM) Temperature Route Oral (09/25/21 11:12 AM) Social History Social History Type Response Smoking Status Former smoker; Tobac co user in household: No entered on: 01/17/17 Sex
--- OUTSIDE RECORDS SUMMARY | 2024-01-06 09:18 | XMS_ITS | Continuity of Care Document ---
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 10/30/2022 12:00 COVID-19 PCR Specimen Source NASAL ()?? 10/26/2022 12:36 COVID-19 PCR Result NEGATIVE ()?? 10/26/2022 12:36 COVID-19 (SARS-CoV-2) by PCR NEGATIVE ()?? 10/30/2022 12:00 Bordetella Parapertussis by PCR NEGATIVE ()?? 10/30/2022 12:00 ? 40_ minutes spent on discharge * Gilmer FARNSWORTH, Lainey Ahuja: PERFORM Event Display: Patient Education/Instruction Authored Date: [id number] Inpatient Adult Discharge Instructions [address] [address] Name: VIDHYA CONNOR : 1950 Visit: 10/26/2022 13:52:00 Current Date: 11/01/2022 16:04 Account: [id number] Inpatient Adult Discharge Instructions We would like [...] and their families. Surveys are administered by [employer] ?? If further treatment with your primary care physician or another doctor is recommended, it is important for you to keep the appointment. Call your primary care physician or return to the Emergency Department immediately if your condition worsens, fails to improve, or new symptoms develop. If you need to find a doctor, you can call [facility] [employer] for a referral at [phone] or toll free at [phone]) or log in to [email or web address].. ?? You can view and manage your care through the patient portal or by using a health care shaneka of your choosing. [employer] is a website that allows you to securely view your medical information including your hospital discharge summary, office visit summaries, medications and follow-up visits. You can also request appointments, renew medications, and request access to your medical information using a health care shaneka of your choosing, or just ask a question. You can enroll at [email or web address] or register during your next office visit. You have been discharged from [facility], Patient Care Unit: W3. If you have any questions regarding these instructions after you leave, please call us and we will be happy to assist you. [facility] Your Care Team Attending Physician Edgardo Thorne MD Discharging Providers Edgardo Thorne MD Reason for Your Visit From home. pt c/o seasonal allergies causing sob beginning last week with multiple evaluations at ERs. hx of chronic cough, chronic uti. wears baseline home O2. pt is nonambulatory. difficulty caringfor self at home. Your Diagnosis COPD exacerbation Acute on chronic diastolic congestive heart failure Acute asthma exacerbation ERICKA treated with BiPAP Tests Performed Below is a partial list of the tests performed during your hospitalization. You may have had other tests and procedures not included in this list. Please discuss all test results with your provider. Basic Metabolic Panel BUN CBC CBC w/ Differential Comprehensive Metabolic Panel COVID-19, RSV, and Flu A/B, Rapid PCR Creatinine D Dimer Electrolytes GLUCOSE GLUCOSE POC Hemoglobin A1c, (Diagnostic) High??Sensitivity??Troponin T Magnesium Level Phosphorus Level ProBNP PROCALCITONIN, SERUM Respiratory Pathogen PCR with COVID-19 Troponin T, High Sensitivity Urinalysis w/hold for Urine Culture CT Chest W/O Contrast XR Chest Portable Primary Care Provider Cherise Hamm MD Advance Directive . Discharge Vitals Temperature: 98.9 DegF Height: 167.64 cm Pulse Rate: 82 bpm Weight: 117.3 kg Respiratory Rate: 19 br/min Body Mass Index:??41.63 kg/m2??Critical Systolic Blood Pressure:??156 mm Hg??High Body surface area: 2.33 Diastolic Blood Pressure: 75 mm Hg ?? Oxygen Saturation:??92 %??Low ?? Studies Pending All tests and labs ordered during this hospital stay have been completed unless listed below. Please discuss all pending results with your provider listed above in these instructions. ?? Add On Lab Order What to do next Instructions From Your Doctor Please continue incentive spirometer 10 times/ hour and Acapella 10 times/ every hour at home Plesae use Bipap (iVAPS) machine at night with 2L iters o2 as we discussed- ?Please try to use itfor atleast a few hours a night during sleep, if not able to keep it on the whole night, as we discussed ?? Discharge Orders Code Status:?? Full Resuscitation Scheduled Follow-Up Appointments Monday. 2022 10:00 AM EDT ?? With: Burton Chapman DO Where: [facility] [address] [place] [phone] You Need to Schedule the Following Appointments Follow Up with??Burton Chapman When??11/09/2022 10:00 AM EDT Why: Please follow up with pulmonary Where: [address] [place] [phone] Business (1) Follow Up with??Cherise Hamm MD When??Within 1 week Where: [address] [place] [phone] Business (1) Discharge Medications VIDHYA CONNOR :1950 Visit Date:10/26/2022 Medications: Please continue your medications until treatment is completed or stopped by your provider. Medications not listed below should be discontinued. Discuss any questions related to medications with your provider. What How Much When Instructions Next Dose New Azithromycin (azithromycin 250 mg oral tablet) 1 pack/packet Oral Daily Pickup at [facility]/pharmacy #[id number] next dose due 11/02 at 9am New Benzonatate (Tessalon Perles 100 mg oral capsule) 2 capsule Oral 3 times a day as needed for as needed for cough Duration: 21 Days Refills: 1 Pickup at [facility]/pharmacy #[id number] take as directed New fluticasone-vilanterol (Breo Ellipta 200 mcg-25 mcg/ inh inhalation powder) 1 puff(s) Inhalation Daily Refills: 3 Pickup at [facility]/pharmacy #[id number] next dose due 11/02 at 9am New Guaifenesin/ Dextromethorphan (dextromethorphan-guaifenesin 10 mg-100 mg/ 10 mL oral liquid) 10 Milliliter Oral Every 4 hours as needed for as needed for cough Refills: 1 not to exceed 6 doses/ day ?? Pickup at [facility]/pharmacy #2070 take as directed New Montelukast (Singulair 10 mg oral tablet) 1 tab(s) Oral Daily in PM Refills: 1 Pickup at [facility]/pharmacy #2070 next dose due 11/01 at 9pm New PredniSONE (predniSONE 10 mg oral tablet) See instructions 2 tabs daily for 3 days, then 1 tab daily for 3 days, then stop ?? Pickup at [facility]/pharmacy #2070 next dose due 11/02 at 9am Changed Albuterol (albuterol 0.083% inhalation solution) 3 Milliliter Nebulized inhalation Every 6 hours as needed for Wheezing/Shortness of Breath as needed every 6 hours for wheezing/ ??shortness of breath ?? Pickup at [facility]/pharmacy #2070 take as directed Changed Albuterol (albuterol CFC free 90 mcg/ inh inhalation aerosol) 1 puff(s) Inhalation 4 times a day as needed for as needed for wheezing as needed for shortness of breath/ wheezing use with spacer chamber Please give spacer chamber to patient ?? Pickup at [facility]/pharmacy #[id number] take as directed Changed Insulin Lispro (Humalog Kwik Pen 100 units/ mL subcutaneous injection) See instructions As directed per sliding scale. 100-150 - 3units 151-200 - 5 units 201-250- 7 units 251-300- 9 units 301-350- 11 units > 350 - 13 units and call doctor ?? following sliding scale for dosage of insulin with meals Changed Methenamine (methenamine hippurate 1 gm oral tablet) 1 tab(s) Oral Twice a day Duration: 5 Days next dose due 11/01 at 9pm Changed dulaglutide (Trulicity Pen 0.75 mg/ 0.5 mL subcutaneous solution) 0.5 Milliliter Subcutaneous Injection Every week resume home schedule Unchanged apixaban (Eliquis 5 mg oral tablet) 1 tab(s) Oral Twice a day next dose due 11/01 at 9pm Unchanged Aspirin (Aspirin Low Dose 81 mg oral delayed release tablet) 1 tab(s) Oral Daily next dose due 11/02 at 9am Unchanged Ergocalciferol (Vitamin D2 50,000 intl units (1.25 mg) oral capsule) 1 capsule Oral Every 7 days resume home schedule Unchanged Furosemide (Lasix 80 mg oral tablet) 1 tab(s) Oral Daily Duration: 30 Days next dose due 11/02 at 9am Unchanged Gabapentin (gabapentin 300 mg oral capsule) 1 capsule Oral Twice a day next dose due 11/01 at 9pm Unchanged Insulin Glargine (Lantus Inj) See instructions 70 Units Subcutaneous Injection dailyt in morning ?? resume home schedule Unchanged Lisinopril (lisinopril 10 mg oral tablet) 1 tab(s) Oral Daily next dose due 11/02 at 9am Unchanged Metformin (metFORMIN 850 mg oral tablet) 1 tab(s) Oral Daily in the morning next dose due 11/02 at 9am Unchanged Metoprolol (Metoprolol Tartrate 50 mg oral tablet) 1 tab(s) Oral Twice a day next dose due 11/01 at 9pm Unchanged Ocular Lubricant (ocular lubricant - solution) 2 Drops Left eye Twice a day as needed for Other Dryness. ?? take as directed Unchanged Simvastatin (simvastatin 40 mg oral tablet) 1 tab(s) Oral Daily at Bedtime next dose due 11/01 at 9pm Pharmacy Information [facility]/pharmacy #[id number]: [address], [place] [id number] [phone] ?? What How Much When Comments Stop Taking Albuterol/ Ipratropium (albuterol- ipratropium 3 mg-0.5 mg/ 3 ml inhalation solution) 3 Milliliter BAND Nebulizer 4 times a day as needed for Wheezing/Shortness of Breath Stop Taking Fluticasone (Flovent Diskus 100 mcg/ inh inhalation powder) 1 puff(s) Inhalation Twice a day Stop Taking Fluticasone (Flovent Diskus 100 mcg/ inh inhalation powder) 1 puff(s) Inhalation Daily Test Results Below is a partial list of the most recent Laboratory test results done prior to this discharge. You may have had other tests and procedures not included in this list. Please discuss all test resultswith your provider. Basic Metabolic Panel (10/26/2022) ???Sodium - 144 mmol/L???Potassium - 3.7 mmol/L???Chloride - 95 mmol/L???Bicarbonate Level - 40 mmol/L???Anion Gap - 9???Glucose Level - 87 mg/dL???BUN - 11 mg/dL???Creatinine-Blood - 0.4 mg/dL???Estimated GFR Creatinine - 106 ML/MIN/1.73 M2???Calcium - 9.6 mg/dL BUN (10/31/2022) ???BUN - 17 mg/dL CBC (10/31/2022) ???WBC - 8.7 k/mm3???RBC - 5.12 m/mm3???Hgb - 13.7 Gm/dL???Hct - 42.7 %???MCV - 83.4 femtoliters???MCH - 26.8 pg???MCHC - 32.1 g/dL???Platelet Count - 185 k/mm3???RDW-SD - 53.0 femtoliters???MPV - 11.0 femtoliters???Nucleated RBC (Automated) - 0.0 #/100 WBC'S???Abs. NRBC - 0.0 k/mm3 CBC w/ Differential (10/26/2022) ???WBC - 8.0 k/mm3???RBC - 5.64 m/mm3???Hgb - 15.3 Gm/dL???Hct - 48.2 %???MCV - 85.5 femtoliters???MCH - 27.1 pg???MCHC - 31.7 g/dL???Platelet Count - 163 k/mm3???RDW-SD - 54.6 femtoliters???MPV - 10.3 femtoliters???Nucleated RBC (Automated) - 0.0 #/100 WBC'S???Abs. NRBC - 0.0 k/mm3???Abs. Neut - 5.8 k/mm3???Abs. Lymph - 1.4 k/mm3???Abs. [place] - 0.6 k/mm3???Abs. Eo - 0.2 k/mm3???Abs. Baso - 0.0 k/mm3???Neut % - 72.6 %???Lymph % - 17.0 %???[place] % - 7.5 %???Eos % - 2.4 %???Baso % - 0.1 %???Imm Gran - 0.4 %???Abs. Imm Gran - 0.0 k/mm3 Comprehensive Metabolic Panel (10/27/2022) ???Sodium - 137 mmol/L???Potassium - 4.0 mmol/L???Chloride - 91 mmol/L???Bicarbonate Level - 35 mmol/L???Anion Gap - 11???Glucose Level - 320 mg/dL???BUN - 19 mg/dL???Creatinine-Blood - 0.4 mg/dL???Estimated GFR Creatinine - 103 ML/MIN/1.73 M2???Calcium - 9.0 mg/dL???Protein, Total - 6.2 Gm/dL???Alb umin - 3.6 Gm/dL???AG Ratio - 1.4???Alkaline Phosphatase - 90 units/L???AST (SGOT) - 12 units/L???ALT (SGPT) - 20 units/L???Bilirubin, Total - 0.5 mg/dL COVID-19, RSV, and Flu A/B, Rapid PCR (10/26/2022) ???Influenza A PCR - NEGATIVE???Influenza B PCR - NEGATIVE???RSV PCR - NEGATIVE???COVID-19 PCR Specimen Source - NASAL???COVID-19 PCR Result - NEGATIVE Creatinine (10/31/2022) ???Creatinine-Blood - 0.6 mg/dL???Estimated GFR Creatinine - 98 ML/MIN/1.73 M2 D Dimer (10/26/2022) ???D-Dimer - 0.71 mg/L FEU Electrolytes (10/31/2022) ???Sodium - 137 mmol/L???Potassium - 3.7 mmol/L???Chloride - 91 mmol/L???Bicarbonate Level - 38 mmol/L???Anion Gap - 8 GLUCOSE (10/30/2022) ???Glucose Level - 174 mg/dL GLUCOSE POC (11/01/2022) ???Glucose, POC - 244 mg/dL Hemoglobin A1c, (Diagnostic) (10/27/2022) ???Hemoglobin A1C (Monitoring) - 9.3 % High??Sensitivity??Troponin T (10/26/2022) ???High Sensitivity Troponin (HSTnT) - 59 ng/L Magnesium Level (10/29/2022) ???Magnesium - 1.9 mg/dL Phosphorus Level (10/27/2022) ???Phosphorus - 3.7 mg/dL ProBNP (10/26/2022) ???Nt-Probnp - 192 pg/mL PROCALCITONIN, SERUM (10/31/2022) ???Procalcitonin - 0.04 ng/mL Respiratory Pathogen PCR with COVID-19 (10/30/2022) ???Adenovirus by PCR - NEGATIVE???Coronavirus 229E by PCR (not COVID-19) - NEGATIVE???Coronavirus HKU1 by PCR (not COVID-19) - NEGATIVE???Coronavirus NL63 by PCR (not COVID-19) - NEGATIVE???Coronavirus OC43 by PCR (not COVID-19) - NEGATIVE???Human Metapneumovirus by PCR - NEGATIVE???Rhinovirus/Enterovirus by PCR - NEGATIVE???Influenza A by PCR - NEGATIVE???Influenza B by PCR - NEGATIVE???Parainfluenza 1 by PCR - NEGATIVE???Parainfluenza 2 by PCR - NEGATIVE???Parainfluenza 3 by PCR - NEGATIVE???Parainfluenza 4 by PCR - NEGATIVE???RSV by PCR - NEGATIVE???Bordetella Pertussis by PCR - NEGATIVE??? Chlamydophila Pneumoniae by PCR - NEGATIVE???Mycoplasma Pneumoniae by PCR - NEGATIVE???COVID-19 (SARS-CoV-2) by PCR - NEGATIVE???Bordetella Parapertussis by PCR - NEGATIVE Troponin T, High Sensitivity (10/26/2022) ???High Sensitivity Troponin (HSTnT) - 36 ng/L Urinalysis w/hold for Urine Culture (10/26/2022) ???Appear/Color, Urine - COLORLESS???Specific [place], Urine - 1.004???pH, Urine - 8.0???Albumin, Urine - NEGATIVE???Glucose, Urine - NEGATIVE???Ketones, Urine - NEGATIVE???Bilirubin, Urine - NEGATIVE???Hemoglobin, Urine - TRACE???Nitrite, Urine - NEGATIVE???Leukocyte, Urine - 2+???Urobilinogen - NORMAL? ?WBC's, Urine - 3 /HPF? ?RBC's, Urine - 1 /HPF? ?Bacteria - SLIGHT? ?Squamous Epith - <1 /HPF???Amorphous Crystals - SLIGHT???Mucus - SLIGHT???Hold Urine Culture - Testing available 48 hoursfrom time of collection. Allergies (NKA means No [...] Educational Leaflet Providered with your Discharge Instructions. Diet-Soft?? Valuables and Belongings I fully understand and agree that [facility] accepts no responsibility for all my [...] patient Date for Pt to Sign Valuables/Belongings: 10/31/22 16:28:00 ?? Other Discharge Information ? Pulmonary Rehab Status?? Pulmonary Rehab Discharge Status?? Respiratory Rate: 19 br/min ? Common Emergency Awareness Tips IS [...] are strongly encouraged to quit. Please call [facility] [employer] [facility] at [phone] or [phone] ([phone]) or log in to [email or web address] for referrals to smoking cessation programs. ?? 236 Suicide & Crisis Lifeline is available 30/01 if you or someone you know needs to find a reason to keep living. By calling 488 you'll be connected to a skilled, trained counselor at a crisis center in your area. INPATIENT DISCHARGE INSTRUCTIONS SIGNATURE PAGE VIDHYA CONNOR Location:[facility] Registration Date and Time:10/26/2022 13:52 EDT Primary Care Physician: Hansel GONZALEZ , Cherise Bolden, I VIDHYA CONNOR, have received the above patient education materials/instructions and have verbalized understanding. If ambulance or transport services are being used I further acknowledge being given a choice of service. ?? If you need to contact me, please call me at this number: . Patient/Campaign Marketing Specialist Name: Patient/Campaign Marketing Specialist Signature: Relationship to Patient: Witness Name/Signature: Date: * Edgardo Thorne MD: SIGN, PERFORM, SIGN, VERIFY Event Display: Patient Education Handout Authored Date: [id number] Lainey Gimenez RN: PERFORM Event Display: Patient Education Leaflets Authored Date: [id number] Prednisone Oral Tablet ?? [id number] Prednisone Oral Tablet Brands: Deltasone Uses This medicine is used for the following purposes: ??? allergic reaction ??? autoimmune disorder ???blood disorder ??? endocrine disorder ??? inflammatory disease ??? immune suppression ??? cancer ??? COVID-19 (coronavirus) ?? Instructions Take the medicine with food. You may take with food to prevent stomach upset. Store at room temperature away from heat, light, and moisture. Do not keep in the bathroom. It is important that you keep taking each dose of this medicine on time even if you are feeling well. If you forget to take a dose on time, take it as soon as you remember. If it is almost time for thenext dose, do not take the missed dose. Return to your normal schedule. Do not take 2 doses at one time. Drug interactions can change how medicines work or increase risk for side effects. Tell your healthcare providers about all medicines taken. Include prescription and uysu-fxt-bdrdjzs medicines, vitamins, and herbal medicines. Speak with your doctor or pharmacist before starting or stopping any medicine. Tell your doctor if symptoms do not get better or if they get worse. Talk to your doctor before taking other medicines, including aspirins and ibuprofen containing products. Speak to your doctor about which medicines are safe to use while you are on this medicine. This medicine may affect your blood sugar levels. If you have diabetes, talk to your doctor before changing the dose of your diabetes medicine. This medicine may affect the strength of your bones. If you have or are at increased risk for osteoporosis (weakening of the bones), your doctor may recommend foods with calcium and vitamin D. This medicine may interfere with skin allergy tests. Please tell your doctor or nurse that you are taking this medicine. Keep all appointments for medical exams and tests while on this medicine. ?? Cautions Tell your doctor and pharmacist if you ever had an allergic reaction to a medicine. This medicine may cause serious bleeding from the stomach or bowels. Stop this medicine and call your doctor immediately if you see any signs of bleeding. Bleeding can cause pain in the stomach, vomiting up liquid that looks like coffee grounds, and red or dark tarry stools. Do not use the medication any more than instructed. Please check with your doctor before drinking alcohol while on this medicine. Avoid smoking while on this medicine. Smoking may increase your risk for stomach bleeding. This medicine may reduce your body's ability to fight infections. Avoid contact with people with colds, flu or other infections. Contact your doctor if you develop fever, cough, sore throat, or chills. Speak with your health care provider before receiving any vaccinations. Tell the doctor or pharmacist if you are , planning to be , or . Always carry an ID card or wear a medical alert bracelet indicating your medical condition. Do not share this medicine with anyone who has not been prescribed this medicine. ?? Side Effects The following is a list of some common side effects from this medicine. Please speak with your doctor about what you should do if you experience these or other side effects. ??? acne ??? agitated feeling or trouble sleeping ??? decreased appetite ??? high blood sugar ??? high blood pressure ??? nausea and vomiting ??? stomach upset or abdominal pain Call your doctor or get medical help right away if you notice any of these more serious side effects: ??? bleeding or bruising ??? bone pain ??? coughing up blood or vomit that looks like coffee grounds ??? depression or feeling sad ??? swelling of the legs, feet, and hands ??? fever or chills ??? fast or irregular heart beats ??? menstruation changes (missed or fewer periods) ??? mood changes ??? muscle pain or cramps ??? seizures ??? thinning of the skin ??? severe stomach or bowel pain ??? dark, tarry stool ??? unusual or unexplained tiredness or weakness ??? increased urinary frequency ??? blurring or changes of vision ??? sudden or unexplained weight gain ??? slow wound healing A few people may have an allergic reaction to this medicine. Symptoms can include difficulty breathing, skin rash, itching, swelling, or severe dizziness. If you notice any of these symptoms, seek medical help quickly. ?? Extra Please speak with your doctor, nurse, or pharmacist if you have any questions about this medicine. ?? [email or web address] IMPORTANT NOTE: This document tells you briefly how to take your medicine, but it does not tell youall there is to know about it. Your doctor or pharmacist may give you other documents about your medicine. Please talk to them if you have any questions. Always follow their advice. There is a more complete description of this medicine available in Maldivian. Scan this code on your smartphone or tablet or use the web address below. You can also ask your pharmacist for a printout. If you have any questions, please ask your pharmacist. The display and use of this drug information is subject to Terms of Use. Copyright(c) 2022 [employer]. ?? The [employer]. All rights reserved. This information is not intended as a substitute for professional medical care. Always follow your healthcare professional's instructions. ?? * Gilmer FARNSWORTH, Lainey Ahuja: PERFORM Event Display: Patient Education Leaflets Authored Date: [id number] Montelukast Oral Tablet ?? [id number] Montelukast Oral Tablet Brands: Singulair Uses This medicine is used for the following purposes: ??? allergy symptoms ??? prevent asthma attacks ??? asthma ?? Instructions This medicine may be taken with or without food. This medicine will work best if you take it at about the same time every day. Keep the medicine at room temperature. Avoid heat and direct light. It is important that you keep taking each dose of this medicine on time even if you are feeling well. If you forget to take a dose on time, take it as soon as you remember. If it is almost time for thenext dose, do not take the missed dose. Return to your normal schedule. Do not take 2 doses at one time. Tell your doctor and pharmacist about all your medicines. Include prescription and ryii-idp-dtlmoneiztcwmevb, vitamins, and herbal medicines. This medicine will not stop an asthma attack once it has started. If you have an inhaler to stop anasthma attack, be sure to always carry that inhaler with you to use during an asthma attack. Do not suddenly stop taking this medicine. Check with your doctor before stopping. ?? Cautions Tell your doctor and pharmacist if you ever had an allergic reaction to a medicine. Do not use the medication any more than instructed. Tell the doctor or pharmacist if you are , planning to be , or . Do not start or stop any other medicines without first speaking to your doctor or pharmacist. Do not share this medicine with anyone who has not been prescribed this medicine. Some patients have serious side effects from this medicine. Ask your pharmacist to show you the information from the Food and Drug Administration (FDA) and discuss it with you. ?? Side Effects Call your doctor or get medical help right away if you notice any of these more serious side effects: ??? agitated feeling or trouble sleeping ??? depression or feeling sad ??? bad dreams ??? hallucinations (unusual thoughts, seeing or hearing things that are not real) ??? mood changes ??? muscle aches, spasms or abnormal movements ??? unusual behavior during sleep such as walking, talking, cooking, eating, making phone calls or driving ??? stuttering ??? suicidal thoughts A few people may have an allergic reaction to this medicine. Symptoms can include difficulty breathing, skin rash, itching, swelling, or severe dizziness. If you notice any of these symptoms, seek medical help quickly. ?? Extra Please speak with your doctor, nurse, or pharmacist if you have any questions about this medicine. ?? [email or web address] IMPORTANT NOTE: This document tells you briefly how to take your medicine, but it does not tell youall there is to know about it. Your doctor or pharmacist may give you other documents about your medicine. Please talk to them if you have any questions. Always follow their advice. There is a more complete description of this medicine available in Maldivian. Scan this code on your smartphone or tablet or use the web address below. You can also ask your pharmacist for a printout. If you have any questions, please ask your pharmacist. The display and use of this drug information is subject to Terms of Use. Copyright(c) 2022 [employer]. ?? [employer]. All rights reserved. This information is not intended as a substitute for professional medical care. Always follow your healthcare professional's instructions. ?? * Gilmer FARNSWORTH, Lainey Ahuja: PERFORM Event Display: Patient Education Leaflets Authored Date: [id number] Benzonatate Oral Capsule ?? [address] Benzonatate Oral Capsule Brands: Tessalon, Tessalon Perles, Zonatuss Uses For cough. ?? Instructions Swallow the medicine without crushing or chewing it. This medicine may be taken with or without food. Store at room temperature away from heat, light, and moisture. Do not keep in the bathroom. Drug interactions can change how medicines work or increase risk for side effects. Tell your healthcare providers about all medicines taken. Include prescription and uxyb-srf-tbkhqea medicines, vitamins, and herbal medicines. Speak with your doctor or pharmacist before starting or stopping any medicine. ?? Cautions Tell your doctor and pharmacist if you ever had an allergic reaction to a medicine. Do not use the medication any more than instructed. Your ability to stay alert or to react quickly may be impaired by this medicine. Do not drive or operate machinery until you know how this medicine will affect you. If you drink more than a few alcoholic beverages each day, ask your doctor whether you should be onthis medicine. Tell the doctor or pharmacist if you are , planning to be , or . Do not share this medicine with anyone who has not been prescribed this medicine. ?? Side Effects The following is a list of some common side effects from this medicine. Please speak with your doctor about what you should do if you experience these or other side effects. ??? constipation ??? dizziness ??? headaches ??? nausea A few people may have an allergic reaction to this medicine. Symptoms can include difficulty breathing, skin rash, itching, swelling, or severe dizziness. If you notice any of these symptoms, seek medical help quickly. ?? Extra Please speak with your doctor, nurse, or pharmacist if you have any questions about this medicine. ?? [email or web address] IMPORTANT NOTE: This document tells you briefly how to take your medicine, but it does not tell youall there is to know about it. Your doctor or pharmacist may give you other documents about your medicine. Please talk to them if you have any questions. Always follow their advice. There is a more complete description of this medicine available in Maldivian. Scan this code on your smartphone or tablet or use the web address below. You can also ask your pharmacist for a printout. If you have any questions, please ask your pharmacist. The display and use of this drug information is subject to Terms of Use. Copyright(c) 2022 [employer]. ?? [employer]. All rights reserved. This information is not intended as a substitute for professional medical care. Always follow your healthcare professional's instructions. ?? CT Chest WO contrast * [facility] , CIS S: TRANSCRIGa Fournier MD: VERIFY Event Display: Result: Authored Date: [id number] CT Chest W/O Contrast INDICATION: Reason: Other:; Rhonchi COPD exacerbation, ? pneumonia, unresolved; Clinical Question(s): Interstitial Alveolar Infiltration; Order Comment: TECHNIQUE: Helical CT scan of the chest without IV contrast, formatted in 3 planes. Weight-based protocol was performed using automatic exposure control. CTDIvol Body: 22.90 mGy, DLP Body: 789 mGy*cm. COMPARISON: 09/12/2010 CT angiography of the chest. 07/29/2022 CT abdomen and pelvis.. FINDINGS: Opening Machine Cleaner view findings, lines and tubes: None. Trachea and airways: The left lower lobe bronchus is occluded, possibly on the basis of mucous plugging. Multifocal mucous plugging in the right lower lobe. Lungs and pleura: Complete atelectasis of the left lower lobe secondary to left lower lobe bronchusocclusion, new from 07/2022. Vague linear opacities in the right lower lobe may also represent subsegmental atelectasis in the setting of mucus plugging, although a component of pneumonia is possible.No effusion or pneumothorax. Mediastinum and loida: Heterogeneous enlargement of the right thyroid lobe, similar to prior study in 2011. No mediastinal or hilar lymphadenopathy. No esophageal abnormality. Heart: Heart is normal in size. No pericardial effusion. Severe coronary artery calcification. Exuberant calcification of the mitral annulus. Aorta: Mild vascular calcification but no aneurysm. Pulmonary arteries: Normal caliber. Chest wall soft tissues: No acute abnormality. Diaphragm: Intact. Upper abdomen: Normal right adrenal gland. Mild thickening of left adrenal gland, unchanged. Bones: Severe degenerative changes of the shoulders. No acute osseous abnormality. IMPRESSION: 1. Complete atelectasis of the left lower lobe secondary to occlusion of the left lower lobe bronchus, probably on the basis of mucous plugging. Consider bronchoscopy. 2. Multifocal mucous plugging in the right lower lobe, with adjacent linear opacities that also probably represent subsegmental atelectasis, although a component of infection is possible. WSN: [id number] Ordering Physician: Archana Gan Dictated By: Ga Toledo MD Dictated Date/Time: 10/30/22 4:22 pm Reviewed By: Ga Toledo MD Signed By: Ga Toledo MD Signed Date/Time: 10/30/22 4:22 pm Transcribed By: SOLOMON Transcribed Date/Time: 10/30/22 4:16 pm Portable XR Chest Views * [facility] , CIS S: TRANSCRISHELL Luna MD, Wolfgang W: VERIFY Event Display: Result: Authored Date: [id number] Chest Portable Hx of Present Illness: diff. breathing, post nasal drip, dry cough. acute on chronic (has CHF and COPD); Reason: Shortness of Breath; Clinical Question(s): CHF COMPARISON: 09/09/2022 FINDINGS: LINES AND TUBES: None. LUNGS AND PLEURA: Chronic central pulmonary vascular congestion and mild interstitial edema. Likely small left subpulmonic effusion. No pneumothorax, although lung apices partially obscured by patient's chin. HEART, MEDIASTINUM AND LOIDA: Heart is normal in size. Normal mediastinal and hilar contour. BONES AND SOFT TISSUES: Severe bilateral glenohumeral osteoarthritic. IMPRESSION: Chronic pulmonary vascular congestion and mild interstitial edema. Question small left subpulmonic effusion. WSN: [id number] Ordering Physician: Gonzalo Kaufman Dictated By: Wolfgang Luna MD Dictated Date/Time: 10/26/22 12:40 p Reviewed By: Wolfgang Luna MD Signed By: Wolfgang Luna MD Signed Date/Time: 10/26/22 12:40 pm Transcribed By: SOLOMON Transcribed Date/Time: 10/26/22 12:38 pm Patient Care team information Care Team Personnel Name: Alvaro Oliver RN Position: [facility] RN Member Role: Primary Care Nurse Name: Tk Iqbal RN Position: [facility] RN Member Role: Primary Care Nurse Name: Lachelle Daniels RN Position: [facility] RN Member Role: Primary Care Nurse Name: Jovanny Stuart RN Position: [facility] RN Member Role: Primary Care Nurse Name: Delaney De Los Santos RN Position: [facility] RN Member Role: Primary Care Nurse Name: Michelle Ricketts Position: [facility] RN Member Role: Primary Care Nurse Name: Jillian Mckeon RN Position: [facility] RN Member Role: Primary Care Nurse Name: Reymundo Perkins RN Position: [facility] RN Member Role: Primary Care Nurse Name: Cande Kennedy RN Position: [facility] AMB Nurse Member Role: Primary Care Nurse Name: Batool Summers Position: [facility] RN Member Role: Primary Care Nurse Name: Lainey Walker LPN Position: [facility] RN Member Role: Primary Care Nurse Name: Yanira Trevizo Position: [facility] RN Member Role: Primary Care Nurse Name: Batool Cervantes RN Position: [facility] RN Member Role: Primary Care Nurse Name: Rafael Hicks RN Position: [facility] RN Member Role: Primary Care Nurse Name: Batsheva Bernard RN Position: [facility] RN Member Role: Primary Care Nurse Name: Fern Franklin LPN Position: [facility] RN Member Role: Primary Care Nurse Name: Vasyl Catherine RN Position: [facility] RN Member Role: Primary Care Nurse Name: Eve Masters RN Position: [facility] RN Member Role: Primary Care Nurse Name: Jenelle Jay RN Position: [facility] RN Member Role: Primary Care Nurse Name: Elizabeth Barrios RN Position: [facility] RN Member Role: Primary Care Nurse Name: Jignesh Stoner RN Position: [facility] RN Member Role: Primary Care Nurse Name: Kady Garcias RN Position: [facility] RN Member Role: Primary Care Nurse Name: Cherise Hamm MD Position: [facility] Outreach Member Role: PCP Address: Address: [address] [place] [id number]- Name: Chyna Aguilar RN Position: [facility] RN Member Role: Primary Care Nurse Address: Address: [address] [place] [address]- [place] Name: John Guaman RN Position: [facility] RN Member Role: Primary Care Nurse Name: Maria M Vance RN Position: [facility] RN Member Role: Primary Care Nurse Name: Ziyad SPRINGER Attending Position: [facility] ED Medicine MD Name: Allyssa Wilburn Position: [facility] ED TA [facility] Member Role: Patient Care Provider Name: Latisha Diamond Position: [facility] ED RN W/OE and Tasks Member Role: Patient Care Provider Care Team Related Persons Name: STEPHANI CONNOR Address: home [address] [place] [id number] Name: GEETHA NORMAN Address: [place] [address]
--- OUTSIDE RECORDS SUMMARY | 2024-01-06 09:18 | XMS_ITS | Continuity of Care Document ---
Author Organization [facility] ter Address [address] [place] [id number]- Care Team Providers Care Imaging Engineer Name Role Phone Cherise Hamm MD Primary Care Physician [phone] Encounter [facility] Date(s): 02/28/22 - 02/28/[address] [address]- Encounter Diagnosis Molina catheter problem(Final) - 02/28/22 Discharge Disposition: A-D/C Home Attending Physician: Jessica [...] 0 Refills, Maintenance, 11/18/21 8:23:00 EDT, Nasal [place], [id number], Partial fill upon patient request if the prescription is for a schedule II opioid drug., 1 sprays Nares, Both 2 time... Start Date: 11/18/21 Status: Ordered Flovent Diskus 100 mcg/inh inhalation powder 1 puffs, Inhalation, Daily, # 1 Unknown, 1 Refills, Maintenance, 11/23/21 9:59:00 EDT, [id number], 1 puffs Inhalation Daily, 168, cm, 11/22/21 [...] 3 Oxygen Saturation [94-100 %] 97 % (02/28/22 3:07 PM) 94 % (02/28/22 10:57 AM) 96 % (02/28/22 9:35 AM) Pulse Rate [55-90 bpm] 73 bpm (02/28/22 3:07 PM) 69 bpm (02/28/22 10:57 AM) 72 bpm (02/28/22 9:35 AM) Blood Pressure [90-138/55-84 mm Hg] 162/67mm Hg *H* (02/28/22 3:07 PM) 154/56mm Hg *H* (02/28/22 10:57 AM) 153/77mm Hg *H* (02/28/22 9:35 AM) Respiratory Rate [16-30 br/min] 20 br/min (02/28/22 3:07 PM) 16 br/min (02/28/22 10:57 AM) 20 br/min (02/28/22 9:35 AM) Temperature [96.8-100.4 DegF] 97.5 DegF (02/28/22 3:07 PM) 97.8 DegF (02/28/22 10:57 AM) 98.0 DegF (02/28/22 9:35 AM) Mode of Delivery (Oxygen) Room air (02/28/22 3:07 PM) Room air (02/28/22 10:57 AM) Room air (02/28/22 9:35 AM) Blood pressure sites Arm, right (02/28/22 3:07 PM) Arm, right (02/28/22 10:57 AM) Temperature Route Oral (02/28/22 3:07 PM) Oral (02/28/22 10:57 AM) Oral (02/28/22 9:35 AM) Social History Social History Type Response Smoking Status Former smoker; Tobac co user in household: No entered on: 01/17/17 Sex
--- OUTSIDE RECORDS SUMMARY | 2024-01-06 09:18 | XMS_ITS | Continuity of Care Document ---
Author Organization [facility] ter Address [address] [place] [id number] Care Team Providers Care Central Supply Assistant Name Role Phone Hansel GONZALEZ, Cherise Bolden Primary Care Physician [phone] Encounter [facility] Date(s): 01/05/23 - 01/08/[address] [id number] Encounter Diagnosis COPD exacerbation(Final) - 01/05/23 Discharge Disposition: A-D/C Home Attending Physician: Tk Brooks MD, Krishna Henderson Admitting Physician: Greyson Sparks DO Referring Physician: Not on Staff, Referring [...] 2 Refills, Maintenance, 01/08/23 12:40:00 EDT, Solution, [facility]/pharmacy #[id number], ICD [...] 3 Refills, Maintenance, 11/01/22 11:09:00 EDT, Powder, [facility]/pharmacy #[id number], Partial fill upon [...] oral capsule 300 mg, Capsule, By Mouth, 01/08/23 9:00:00 EDT Start Date: 01/08/23 Stop Date: 01/08/23 Status: Completed Humalog Kwik Pen 100 units/mL [...] oral tablet 10 mg, Tablet, By Mouth, 01/08/23 9:00:00 EDT Start Date: 01/08/23 Stop Date: 01/08/23 Status: Completed metFORMIN 850 mg oral tablet [...] 50 mg, Tablet, By Mouth, Hold for: sbp<120, HR<60, 01/08/23 9:00:00 EDT Start Date: 01/08/23 Stop Date: 01/08/23 Status: Completed Metoprolol Tartrate 50 mg oral [...] for Microbiology Reports Name Date Blood Culture 01/04/23 Blood Culture #2 01/04/23 Microbiology Reports TEST:Blood Culture, Second Order STATUS:Unauthenticated BODY SITE: SOURCE:Blood COLLECTED DATE/TIME:01/04/23 10:07 PM Blood Culture, Second Order SPECIMEN DESCRIPTION : BLOOD LEFT AC SPECIAL REQUESTS : NONE CULTURE : NO GROWTH 3 DAYS REPORT STATUS : PRELIMINARY REPORT TEST:Blood Culture STATUS:Unauthenticated BODY SITE: SOURCE:Blood COLLECTED DATE/TIME:01/04/23 9:47 PM Blood Culture SPECIMEN DESCRIPTION : BLOOD NOT GIVEN SPECIAL REQUESTS : NONE CULTURE : NO GROWTH 4 DAYS REPORT STATUS : PRELIMINARY REPORT Radiology Reports * Exam Date Time Procedure Performing Provider Status 01/04/23 11:38 PM US Doppler Ext Lower Venous Left Quintin Iyer; Auth (Verified) Notes: (US Doppler Ext Lower Venous Left) Reason For Exam: Pain in limb;Other: RESULT: US Doppler Ext Lower Venous Left US Doppler Ext Lower Venous Left Hx of Present Illness: Pt began feeling hot and diaphoretic and began feeling chills. LLE increasingly hot to touch and increased swelling. Pt is concerned for cellulitis.; Reason: Other:; Pain in limb; Clinical Question(s): Thrombus COMPARISON: None IMAGING TECHNIQUE: Ultrasound of the veins from the groin through the calf was performed using grayscale, color, and spectral Doppler ultrasound assessing for complete compressibility and normal flowcharacteristics. FINDINGS: Common femoral vein: Patent. No thrombosis. Femoral vein: Patent. No thrombosis. Popliteal vein: Patent. No thrombosis. Gastrocnemius veins: The visualized portions are patent without evidence of thrombosis. Peroneal veins: The visualized portions are patent without evidence of thrombosis. Posterior tibial veins: The visualized portions are patent without evidence of thrombosis. Contralateral common femoral vein: Patent. No thrombosis. OTHER FINDINGS: There is diffuse calf edema. IMPRESSION: No evidence of deep venous thrombosis. WSN: [id number] Ordering Physician: Brendon Carranza Dictated By: Eleonora García MD Dictated Date/Time: 01/04/23 11:42 p Reviewed By: Eleonora García MD Signed By: Eleonora García MD Signed Date/Time: 01/04/23 11:42 pm Transcribed By: SOLOMON Transcribed Date/Time: 01/04/23 11:41 pm * Exam Date Time Procedure Performing Provider Status 01/04/23 11:36 PM Chest Portable Jodi Meyer; Auth (Verified) Notes: (Chest Portable) Reason For Exam: Shortness of Breath RESULT: Chest Portable Chest Portable Hx of Present Illness: Pt began feeling hot and diaphoretic and began feeling chills. LLE increasingly hot to touch and increased swelling. Pt is concerned for cellulitis.; Reason: Shortness of Breath; Clinical Question(s): CHF COMPARISON: 12/25/2022 FINDINGS: LINES AND TUBES: None. LUNGS AND PLEURA: Prominent pulmonary vasculature. Possible groundglass opacity both lungs. No pleural effusion. No pneumothorax. HEART, MEDIASTINUM AND KOLTON: Heart is normal in size. Normal mediastinal and hilar contour. BONES AND SOFT TISSUES: No acute abnormality. IMPRESSION: Findings suggestive of pulmonary edema. WSN: [id number] Ordering Physician: Brendon Carranza Dictated By: Bubba Silveira MD Dictated Date/Time: 01/04/23 11:41 p Reviewed By: Bubba Silveira MD Signed By: Bubba Silveira MD Signed Date/Time: 01/04/23 11:41 pm Transcribed By: SOLOMON Transcribed Date/Time: 01/04/23 11:40 pm Vital Signs Most recent to oldest [Reference Range]: 1 2 3 Height 168 cm (01/08/23 1:18 PM) 168 cm (01/08/23 7:07 AM) 168 cm (01/08/23 1:43 AM) Weight 121.7 kg (01/08/23 5:23 AM) 122.0 kg (01/07/23 6:56 AM) 122.8 kg (01/06/23 6:08 AM) Oxygen Saturation [94-100 %] 90 % *L* (01/08/23 1:18 PM) 90 % *L* (01/08/23 7:07 AM) 95 % (01/08/23 1:43 AM) Pulse Rate [55-90 bpm] 72 bpm (01/08/23 1:18 PM) 77 bpm (01/08/23 10:03 AM) 72 bpm (01/08/23 7:07 AM) Body Mass Index [18.5-24.99 kg/m2] 42.16 kg/m2 *>HHI* (01/05/23 1:35 PM) Blood Pressure [90-138/55-84 mm Hg] 140/49mm Hg *H* (01/08/23 1:18 PM) 135/61mm Hg (01/08/23 10:03 AM) 135/61mm Hg (01/08/23 10:03 AM) Respiratory Rate [16-30 br/min] 18 br/min (01/08/23 1:18 PM) 18 br/min (01/08/23 11:03 AM) 18 br/min (01/08/23 10:03 AM) Temperature [96.8-100.4 DegF] 98.9 DegF (01/08/23 1:18 PM) 97.7 DegF (01/08/23 7:07 AM) 97.5 DegF (01/08/23 1:43 AM) Liters per Minute 3 L/min (01/08/23 1:43 AM) 3 L/min (01/07/23 4:15 AM) 3 L/min (01/06/23 7:32 PM) Mode of Delivery (Oxygen) Room air (01/08/23 1:18 PM) Room air (01/08/23 7:07 AM) Nasal cannula (01/08/23 1:43 AM) Blood pressure sites Arm, right (01/08/23 1:18 PM) Arm, right (01/08/23 7:07 AM) Arm, right (01/08/23 1:43 AM) Temperature Route Oral (01/08/23 1:18 PM) Oral (01/08/23 7:07 AM) Temporal (01/08/23 1:43 AM) Dry Weight 122 kg (01/05/23 1:35 PM) Weight Obtained Via Bed scale (01/08/23 5:23 AM) Bed scale (01/07/23 6:56 AM) Bed scale (01/06/23 6:08 AM) Dry Weight Obtained Via Patient/family stated (01/05/23 1:35 PM) Social History Social History Type Response Smoking Status Former smoker; Tobac co user in household: No entered on: 01/17/17 Sex Admission evaluation note * Lance Philippe MD: PERFORM, MODIFY, MODIFY Event Display: Admission Note Authored Date: [id number] Patient: ??VIDHYA ADAM ? Age:??72 Years?Sex:??Female?:??1950?? History of Present Illness 72-year-old female with history of heart failure with preserved EF, mild aortic stenosis, COPD/asthma on 2 L of O2 via nasal cannula, ERICKA on CPAP, hypertension, hyperlipidemia, type 2 diabetes mellitus, paroxysmal atrial fibrillation on Eliquis, neurogenic bladder with chronic Molina catheter, wheelchair-bound, CAD who is presenting to the emergency department complaints of shortness of breath andbilateral lower extremity edema for the past 3 to 4 days ?? Patient reports that she has been having progressively worsening shortness of breath along with bilateral lower extremity edema for the past 3 to 4 days.?? She does report that she has lower extremity edema bilaterally at baseline however she felt like it was worsening over the past few days with left lower extremity being more swollen than right lower extremity.?? Denies any chest pain, denies any cough, no fever or chills, no rhinorrhea, no chest pain, no abdominal pain, diarrhea, constipation or dysuria EKG with no acute ischemic changes, chest x-ray with pulmonary edema, ultrasound left lower extremity negative for DVT.?? She received 80 mg of IV Lasix in the ED. Review of Systems All systems are reviewed??and are negative except as noted above in the HPI. Objective Vital Signs?? Temperature: 97.8 DegF (01/05/23 04:23:00) Temperature Route: Oral (01/05/23 04:23:00) Pulse Rate: 65 bpm (01/05/23 04:23:00) Respiratory Rate: 17 br/min (01/05/23 04:23:00) Systolic Blood Pressure:??149 mm Hg??High (01/05/23 04:23:00) Diastolic Blood Pressure: 62 mm Hg (01/05/23 04:23:00) Blood pressure sites: Arm, left (01/05/23 04:23:00) Mean Arterial Pressure: 104 mm Hg (01/05/23 01:18:00) Pulse Pressure: 87 mm Hg (01/05/23 04:23:00) Oxygen Saturation: 99 % (01/05/23 04:23:00) Liters per Minute: 2 L/min (01/05/23 04:23:00) Mode of Delivery (Oxygen): Nasal cannula (01/05/23 04:23:00) Early Warning Score: 3 (01/05/23 04:23:41) ? Physical Exam General: Alert and oriented x3, obese, no acute distress HEENT: Atraumatic, normocephalic, EOMI, PERRL Neck: Supple, trachea midline Respiratory: Bibasilar crackles, no wheezes appreciated, saturating well on 2 L of O2 via nasal cannula CVS: S1, S2.?? Irregularly irregular, rates in the 60s, no rubs, murmurs or gallops Abdomen: Soft, nontender, nondistended, positive bowel sounds Musculoskeletal: Bilateral lower extremity edema with chronic venous stasis changes, left worse than right Neuro: Alert and oriented x3, cranial nerves II to XII intact, no facial asymmetry Psych: Appropriate mood and affect, cooperative Assessment/Plan ?72-year-old female with history of heart failure with preserved EF, mild aortic stenosis, COPD/asthma on 2 L of O2 via nasal cannula, ERICKA on CPAP, hypertension, hyperlipidemia, type 2 diabetes mellitus, paroxysmal atrial fibrillation on Eliquis, neurogenic bladder with chronic Molina catheter, whee lchair-bound, CAD who is presenting to the emergency department complaints of shortness of breath and bilateral lower extremity edema for the past 3 to 4 days ?? Acute CHF exacerbation Heart failure with preserved EF ?? -Chest x-ray with pulmonary edema, bedside ultrasound reveals diffuse B-lines as well.?? proBNP mildly elevated to 150, troponin is pending, EKG with no acute ischemic changes.?? Admit the patient tocardiac telemetry unit for proactive management of CHF exacerbation.?? Continue with daily weights,strict intake and output.?? She is on Lasix 80 mg p.o. daily at home, received 80 mg IV Lasix in the ED, for now I will continue her on IV Lasix 40 mg twice daily for now and adjust accordingly basedon volume status and renal function.?? Continue to monitor hemodynamics and respiratory status closely. ?? COPD/asthma: There was some concern for COPD/asthma exacerbation initially however clinical picturemore suggestive of CHF exacerbation right now.?? Continue with DuoNebs as needed, continue with Breo Ellipta, continue with montelukast. ?? Insulin-dependent type 2 diabetes mellitus: Hold Trulicity, continue with Lantus and sliding scale insulin, glucose POC.?? Hold metformin ?? Atrial fibrillation: Continue with Eliquis and metoprolol ?? CAD: Continue with metoprolol, aspirin, simvastatin ?? Diabetic neuropathy: Continue with gabapentin ?? Hypertension: Continue with lisinopril ?? DVT prophylaxis: Already on Eliquis ?? CODE STATUS: Full code. Histories Allergies Allergies ?(Active and Proposed Allergies [...] user in household: No. ? Family History Negative for CAD ? [...] Mouth?2 times a day Insulin Glargine (Lantus Solostar Pen 100 units/mL subcutaneous solution)?INJECT 68 UNITS UNDER THE SKIN DAILY Insulin Lispro (Humalog Kwik Pen 100 units/mL subcutaneous injection)?See Instructions?As directed per sliding scale.100-150 - [id number] - 5 -088- 7 [id number]- 9 -018- 11units> 350 - 13 units and call [...] 1 TABLET BY MOUTH EVERYDAY AT BEDTIME Simvastatin (simvastatin 40 mg oral tablet)?40?Milligram?1?tablet?By Mouth?Daily at bedtime ? Results Recent Labs BLOOD COUNT & DIFF WBC 7.8 k/mm3 ()?? 01/04/2023 21:47 RBC 4.85 m/mm3 ()?? 01/04/2023 21:47 Hgb 12.9 Gm/dL ()?? 01/04/2023 21:47 Hct 41.0 % ()?? 01/04/2023 21:47 MCV 84.5 femtoliters ()?? 01/04/2023 21:47 MCH 26.6 pg (Low)?? 01/04/2023 21:47 MCHC 31.5 g/dL (Low)?? 01/04/2023 21:47 Platelet Count 200 k/mm3 ()?? 01/04/2023 21:47 RDW-SD 47.8 femtoliters (High)?? 01/04/2023 21:47 MPV 12.7 femtoliters (High)?? 01/04/2023 21:47 Nucleated RBC (Automated) 0.0 #/100 WBC'S ()?? 01/04/2023 21:47 Abs. NRBC 0.0 k/mm3 ()?? 01/04/2023 21:47 Abs. Neut 5.4 k/mm3 ()?? 01/04/2023 21:47 Abs. Lymph 1.4 k/mm3 ()?? 01/04/2023 21:47 Abs. [place] 0.6 k/mm3 ()?? 01/04/2023 21:47 Abs. Eo 0.3 k/mm3 ()?? 01/04/2023 21:47 Abs. Baso 0.0 k/mm3 ()?? 01/04/2023 21:47 Neut % 68.9 % ()?? 01/04/2023 21:47 Lymph % 18.6 % ()?? 01/04/2023 21:47 [place] % 8.0 % ()?? 01/04/2023 21:47 Eos % 3.9 % ()?? 01/04/2023 21:47 Baso % 0.3 % ()?? 01/04/2023 21:47 Imm Gran 0.3 % ()?? 01/04/2023 21:47 Abs. Imm Gran 0.0 k/mm3 ()?? 01/04/2023 21:47 ?? CARDIAC Nt-Probnp 150 pg/mL (High)?? 01/04/2023 21:47 ?? CHEM GENERAL Sodium 134 mmol/L ()?? 01/04/2023 21:47 Potassium 4.1 mmol/L ()?? 01/04/2023 21:47 Chloride 93 mmol/L (Low)?? 01/04/2023 21:47 Bicarbonate Level 33 mmol/L (High)?? 01/04/2023 21:47 Anion Gap 8 ()?? 01/04/2023 21:47 Glucose Level 212 mg/dL (High)?? 01/04/2023 21:47 BUN 14 mg/dL ()?? 01/04/2023 21:47 Creatinine-Blood 0.4 mg/dL (Low)?? 01/04/2023 21:47 Estimated GFR Creatinine 105 ML/MIN/1.73 M2 ()?? 01/04/2023 21:47 Calcium 9.3 mg/dL ()?? 01/04/2023 21:47 Lactate 1.1 mmol/L ()?? 01/04/2023 21:47 ?? MISC. CHEMISTRY Hold Green Top SPECIMEN DISCARDED AFTER 1 WEEK ()?? 01/04/2023 21:47 ?? VIROLOGY COVID-19 by RT-PCR NEGATIVE ()?? 01/05/2023 01:17 ? Cardiology * Event Display: Cardiac Rhythm Strips Authored Date: Hospital Progress note * Janell Nathan RN: PERFORM, SIGN, VERIFY Event Display: Progress Note Hospital Authored Date: Patient: VIDHYA ADAM Age: 72 years Sex: Female : 1950 Associated Diagnoses: None Author: Venita FARNSWORTH, Janell Findings Problem Related to Alteration in Cardiac Function (new) : Alteration in Cardiac Function/new 01/08/2023 6:00 EDT Alteration in Cardiac Status Related to Heart failure Goals & Outcomes, Cardiac Status Pt will resume/maintain adequate cardiac output, Pt will resume/maintain adequate hemodynamic status, Pt will resume/maintain adequate respiratory function, Pt will resume/maintain intact neuro function, Pt will maintain adequate GI/ function appropriate for pt, Pt will maintain adequate nutrition status, Pt/caregiver will state understanding of diagnosis, Pt/caregiver will state strategies to reduce risk factors Cardiac Interventions Implemented Assess/monitor cardiac status, Assess/monitor neuro status, Assess/monitor respiratory status, Document & Monitor O2 Sats; Administer O2 as ordered, Ensure adequate caloric intake, If no bowel movement in 3 days activate bowel regime, Monitor & document daily weight, Teach/encourage deep breath & cough exercises, Teach/encourage use of incentive spirometer BH Goals/Interventions, Cardiac Yes Cardiac, Problem Start 01/06/2023 3:00 Reviewed Plan with, Cardiac Status Patient Patient Progression, Cardiac Status Patient progressing according to plan . Nursing Data Cardiac Data. : Cardiac Data. 01/07/2023 21:00 EDT Cardiac Rhythm Normal sinus rhythm Capillary Refill < 3 seconds Radial Pulse, Left Normal Radial Pulse, Right Normal Dorsalis Pedis Pulse, Left Weak Dorsalis Pedis Pulse, Right Weak Ankle, left 3+ moderate Ankle, right 3+ moderate panel monitor Yes Cardiovascular WNL except . Vital Signs : VITAL SIGNS SECTION 01/08/2023 1:43 EDT Temperature 97.5 DegF Temperature Route Temporal Pulse Rate 75 bpm Respiratory Rate 20 br/min Systolic Blood Pressure 116 mm Hg Diastolic Blood Pressure 45 mm Hg L Blood pressure sites Arm, right Mean Arterial Pressure 69 mm Hg Pulse Pressure 71 mm Hg Oxygen Saturation 95 % Liters per Minute 3 L/min Mode of Delivery (Oxygen) Nasal cannula . Evaluation Pt is alert & oriented x3. NSR on tele. Denies chest pain, palpitations, and dizziness. Reportsshortness of breath with activity and lying flat. LS diminished in the lower lobes. Occasional productive cough noted. Duonebs provided as needed. Sats WNL on 3L oxygen NC. Molina catheter in place, draining CYU. LBM 01/04. +BS. The pt denies any concerns at this time and is resting comfortably in bed. Frequent rounding done to ensure safety & comfort. Bed in lowest locked position, bed alarm activated, and call bain within reach.. * Carolyn Gardner RN: PERFORM, SIGN, VERIFY Event Display: Progress Note Hospital Authored Date: [id number] Patient: VIDHYA ADAM Age: 72 years Sex: Female : 1950 Associated Diagnoses: None Author: Carolyn Gardner RN Findings Problem Related to Alteration in Cardiac Function (new) : Alteration in Cardiac Function/new 01/07/2023 9:00 EDT Alteration in Cardiac Status Related to Heart failure Goals & Outcomes, Cardiac Status Pt will resume/maintain adequate cardiac output, Pt will resume/maintain adequate hemodynamic status, Pt will resume/maintain adequate respiratory function, Pt will resume/maintain intact neuro function, Pt will maintain adequate GI/ function appropriate for pt, Pt will maintain adequate nutrition status, Pt/caregiver will state understanding of diagnosis, Pt/caregiver will state strategies to reduce risk factors Cardiac Interventions Implemented Assess/monitor cardiac status, Assess/monitor neuro status, Assess/monitor respiratory status, Assess for tolerance of IV infusions; verify rate & dose, Call/Report variances in ECG to provider, Document & Monitor O2 Sats; Administer O2 as ordered, Ensure adequate caloric intake, If no bowel movement in 3 days activate bowel regime, Monitor & document daily weight, Monitor anticoagulation values, Monitor ECG w/administration of antiarrhythmics (CO 13.420), Obtain 12 Lead ECG and CXR as ordered, Prep pt for treatments & procedures, Teach/encourage deep breath & cough exercises, Teach/encourage use of incentive spirometer, Team conversation regarding appropriate level of care, Turn & reposition Q2 hours per activity restrictions, Useadjunctive therapies per Standards of Practice Goals/Interventions, Cardiac Yes Cardiac, Problem Start 01/06/2023 3:00 Reviewed Plan with, Cardiac Status Patient Patient Progression, Cardiac Status Patient progressing according to plan . Falls Risk Assessment : Falls Data 01/07/2023 9:03 EDT Fall Elimination No impairment Fall Agitation/Anxiety/Depression No impairment Fall Related Sign/Symptom/Condition None Fall Cognitive Limitations No impairment Fall Sensory and Physical Function Fatigued, Weak, Requires the Use of an Assistive Device Plan: Fall Sensory and Physical Function Encourage safe activities to maintain strength & mobility, Perform strengthening exercises with the patient, Ask family to encourage safe activities, Monitor patient's progress with physical activities, Educate patient how to use mobility aids safely, Educate the family how to use mobility aids safely, Place mobility aids near bedside, Ensure patient has & wears eyeglasses/hearing aids, Collaborate with MD to refer to physical therapy, Collaborate with Physical Therapy for balance/gait training, Collaborate with MD to refer to occupational therapy, Review factors that contributed to previous falls Fall High Risk for Injury None of the above Total Falls Risk Score 6 Fall Risk Level High Risk Falls Prevention Plan for High Risk Fall risk decal outside of patient's room, Apply yellow high fall risk wrist band to wrist, Ensure patient has yellow non- skid slippers, Supervise patient in the bathroom & shower, Consider relocating patient closer to nurses' station, Activate bed exit alarmsystem, Evaluate footwear & ensure patient has non-skid slippers, Bed in lowest locked position, Provide patient/family falls prevention education, Place personal care items & call bain within reach, Instruct patient/family to request assistance with ambulatio, Instruct patient/family not to get up without assistance, Supervise the patient when ambulating or making transfers, Check that needs are met to minimize attempts to get up, Hourly rounds, Ensure safe & uncluttered environment, Communicate falls risk to all providers . Nursing Data Cardiac Data. : Cardiac Data. 01/07/2023 9:05 EDT Cardiac Rhythm Normal sinus rhythm Ankle, left 3+ moderate, Pitting Ankle, right 3+ moderate, Pitting panel monitor Yes Cardiovascular WNL except . Gastrointestinal Data. : Gastrointestinal Data. 01/07/2023 9:05 EDT Abdomen Round Last Bowel Movement 01/04/2023 GI WNL except . Genitourinary Data. : Genitourinary Data. 01/07/2023 9:05 EDT Urinary catheter type Single Lumen Indwelling Urinary Catheter WNL except . HEENT Data. : HEENT Assessment 01/07/2023 9:05 EDT HEENT, Adult WNL except Eye Location, Adult Both eyes (Modified) Eye Symptoms, Adult Vision impairment (Modified) . Integumentary Data. : Integumentary Data. 01/07/2023 9:05 EDT Skin Abnormality Dry Skin Integrity Not intact Wound Type I Blister Wound Location I Leg, left lower Wound I, Drainage Amount None Wound I, Surrounding Skin Dry Integumentary WNL except 01/07/2023 9:04 EDT Sensory Perception Slightly limited Moisture Occasionally moist Activity Bedfast Mobility Very limited Nutrition Adequate Friction and Shear Potential problem Higinio Score 14 Nursing Care Plan initiated/updated Yes . Musculoskeletal Data. : Musculoskeletal Data. 01/07/2023 9:05 EDT Musculoskeletal Symptoms Weakness Musculoskeletal WNL except . Neurological Data. : Neurological Data. 01/07/2023 9:05 EDT Neurological Symptoms Weakness or loss of muscle strength Gait Unable to assess Neuro WNL except . Respiratory/Pulmonary Data. 01/07/2023 9:05 EDT Respiratory effort Orthopnea Respiratory Assessment Comment 3L O2 NC Upper Airway Diminished Cough Hacking Left Upper Lobe Breath Sounds Diminished Right Upper Lobe Breath Sounds Diminished Right Middle Lobe Breath Sounds Diminished Left Lower Lobe Breath Sounds Diminished Right Lower Lobe Breath Sounds Diminished Respiratory distress Mild Respiratory Treatment(s) Cough and deep breathe, Suctioned, Updraft Nebulizer Therapy/MDI Respiratory WNL except 01/07/2023 9:04 EDT Respiratory Treatment(s) Cough and deep breathe, Updraft Nebulizer Therapy/MDI . Evaluation pt A/Ox3, bedbound r/t w/c at baseline. BLE edema, what appears to be popped blisters on the left lower extremity, Xeroform and Mepilex in place, wound consult placed. Patient continues on 3L O2 NC (baseline is 2L O2 NC), orthopnea, hacking, productive cough, neb tx given and bedside suction and patient able to suction self PRN. Continues on IV push Lasix, see MAR. fall precautions in place and call bain within reach at all times and patient able to ring appropriately. . * Tk Brooks MD, Krishna Henderson: PERFORM Event Display: Progress Note Hospital Authored Date: Patient: ??VIDHYA ADAM ? Age:??72 Years?Sex:??Female?:??1950?? Subjective No overnight events Alert oriented x3 Not in distress Comfortable in room air Lower extremity swelling is improving Denies chest pain, shortness of breath Review of Systems negative except as above Objective Vital Signs?? Temperature: 97.9 DegF (01/07/23 08:21:00) Temperature Route: Oral (01/07/23 08:21:00) Pulse Rate: 66 bpm (01/07/23 08:57:00) Respiratory Rate: 18 br/min (01/07/23 09:55:00) Systolic Blood Pressure: 128 mm Hg (01/07/23 08:57:00) Systolic Blood Pressure: 128 mm Hg (01/07/23 08:57:00) Diastolic Blood Pressure: 68 mm Hg (01/07/23 08:57:00) Diastolic Blood Pressure: 68 mm Hg (01/07/23 08:57:00) Blood pressure sites: Arm, right (01/07/23 08:21:00) Mean Arterial Pressure: 88 mm Hg (01/07/23 08:21:00) Pulse Pressure: 60 mm Hg (01/07/23 08:21:00) Oxygen Saturation: 97 % (01/07/23 08:21:00) Liters per Minute: 3 L/min (01/07/23 04:15:00) Mode of Delivery (Oxygen): Nasal cannula (01/07/23 08:21:00) Early Warning Score: 3 (01/07/23 12:12:42) ? Pain Scores 1 - 10 Pain Scale Score: 8 (21:00) ? Physical Exam Constitutional: Alert, in no distress. obese Mental Status: Oriented to person, place and time. Head: Normocephalic Respiratory: Clear to auscultation. No wheezing, rales or rhonchi. Cardiovascular: S1 S2 regular. No murmurs, rubs or gallops. Gastrointestinal: Abdomen soft, non-tender, non-distended. Genitourinary: No costovertebral angle tenderness. Neurologic:?? Moves all extremities spontaneously. Sensation intact bilaterally. Skin: No rashes or lesions. No petechiae or purpura.?? Musculoskeletal: b/l LE edema+ Assessment/Plan Diagnoses COPD exacerbation ??(J44.1) ?? Assessment:? 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 ?Acute CHF exacerbation ??Heart failure with preserved EF ? Chest x-ray with pulmonary edema, bedside ultrasound reveals diffuse B-lines as well. ??pro BNP 150, troponin 12, EKG with no acute ischemic changes. ??Le swelling is resolving ? Plan: ??security monitor ??Continue with daily weights, strict intake and output. ??IV Lasix 40 mg twice daily Will switch to PO tomorrow and possibly discharge ??Continue to monitor hemodynamics and respiratory status closely. ? COPD/asthma: ??There was some concern for COPD/asthma exacerbation initially however clinical picture more suggestive of CHF exacerbation right now. ??continue with DuoNebs as needed ??continue with Breo Ellipta, continue with montelukast. ? Insulin-dependent type 2 diabetes mellitus: ??Hold Trulicity, continue with Lantus and sliding scale insulin, glucose POC. ??Hold metformin ? Atrial fibrillation: ??Continue with Eliquis and metoprolol ? CAD: Continue with metoprolol, aspirin, simvastatin ? Diabetic neuropathy: Continue with gabapentin ? Hypertension: Continue with lisinopril ? DVT prophylaxis: Already on Eliquis ? CODE STATUS: Full code. ? Note * Carolyn aGrdner RN: PERFORM Event Display: Discharge/Transfer Note Hospital Authored Date: [id number] Nursing Discharge Note Entered On: 01/08/2023 15:33 EDT Performed On: 01/08/2023 15:33 EDT by Carolyn Gardner RN Nursing Discharge Note 2 Discharge Time : 01/08/2023 15:33 EDT Discharge Level of Care at Discharge : Home/Mcfp/Foster Care Patient Left Unit Via : Ambulance Patient Accompanied Off Unit with : Ambulance/Chair Van Personnel Handover Given to Transport Personnel : Yes DC Instructions Provided & Signed by Pt : Yes Patient Understands D/C Instructions : Yes Patient Instructions Discharge Signed : Yes Did Pt have Specialty Bed or Wound Vac : No Jj FARNSWORTH, Carolyn - 01/08/2023 15:33 EDT * Tk Brooks MD, Krishna Henderson: PERFORM Event Display: Discharge/Transfer Note Hospital Authored Date: [id number] Patient: ??VIDHYA ADAM ? Age:??72 Years?Sex:??Female?:??1950?? Patient Information Discharge Location: Primary Care Physician: Cherise Hamm MD Admit Date/Time: 01/05/23 01:07 Discharge Disposition Discharge Disposition: Home with Home Health Discharge Diagnosis COPD exacerbation (J44.1) ??Acute on chronic diastolic heart failure COPD ERICKA on iVAPS DM type 2 _ Discharge Medications Albuterol (albuterol CFC free [...] Mouth?2 times a day Insulin Glargine (Lantus Solostar Pen 100 units/mL subcutaneous solution)?INJECT 68 UNITS UNDER THE SKIN DAILY Insulin Lispro (Humalog Kwik Pen 100 units/mL subcutaneous injection)?See Instructions?As directed per sliding scale.100-150 - [id number] - 5 [id number] -282- 9 -366- 11units> 350 - 13 units and call [...] 1 TABLET BY MOUTH EVERYDAY AT BEDTIME Simvastatin (simvastatin 40 mg oral tablet)?40?Milligram?1?tablet?By Mouth?Daily at bedtime ? Medications Started - Medications Discontinued - Doses Changed - Future Appointments Monday 10:30 AM EDT ?? With: Burton Chapman DO Where: [facility] [place] [address]- Status: Pending Objective Assessment and Plan Assessment:??' ?? 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 Admitted for acute on chronic diastolic heart failure. Managed with IV Lasix. Recent PFT showing restrictive defective, advised to f/u Pulmonary. Home services can be resumed on discharge. ?Acute CHF exacerbation ??Heart failure with preserved EF ??Acute on chronic diastolic heart failure Chest x-ray with pulmonary edema, bedside ultrasound reveals diffuse B-lines as well. ?pro BNP 150, troponin 12, EKG with no acute ischemic changes. ?Leg swelling is resolving ? Plan: ??Discharge today Continue Lasix??80 mg PO daily Contique metoprolol continue lisinopril f/u cardiology outpatient ? COPD/asthma: ?There was some concern for COPD/asthma exacerbation initially however clinical picture more suggestive of CHF exacerbation right now. ?continue with??albuterol??nebs as needed ?continue with Breo Ellipta, continue with montelukast. ??Recent PFT showing restrictive defective, advised to f/u Pulmonary ? Insulin-dependent type 2 diabetes mellitus: ??Resume Trulicity, ??continue with Lantus and sliding scale insulin ??Resume metformin ? Atrial fibrillation: ??Continue with Eliquis and metoprolol ? CAD: Continue with metoprolol, aspirin, simvastatin ? Diabetic neuropathy: Continue with gabapentin ? Hypertension: Continue with lisinopril ? DVT prophylaxis: Already on Eliquis ? CODE STATUS: Full code. ? Discharge Planning:? Vital Signs?? Temperature: 97.7 DegF (01/08/23 07:07:00) Temperature Route: Oral (01/08/23 07:07:00) Pulse Rate: 77 bpm (01/08/23 10:03:00) Respiratory Rate: 18 br/min (01/08/23 10:03:00) Systolic Blood Pressure: 135 mm Hg (01/08/23 10:03:00) Systolic Blood Pressure: 135 mm Hg (01/08/23 10:03:00) Diastolic Blood Pressure: 61 mm Hg (01/08/23 10:03:00) Diastolic Blood Pressure: 61 mm Hg (01/08/23 10:03:00) Blood pressure sites: Arm, right (01/08/23 07:07:00) Mean Arterial Pressure: 86 mm Hg (01/08/23 07:07:00) Pulse Pressure: 74 mm Hg (01/08/23 07:07:00) Oxygen Saturation:??90 %??Low (01/08/23 07:07:00) Liters per Minute: 3 L/min (01/08/23 01:43:00) Mode of Delivery (Oxygen): Room air (01/08/23 07:07:00) Early Warning Score: 5 (01/08/23 11:28:38) ? . Physical Exam Constitutional: Alert, in no distress. obese Mental Status: Oriented to person, place and time. Head: Normocephalic Respiratory: Clear to auscultation. No wheezing, rales or rhonchi. Cardiovascular: S1 S2 regular. No murmurs, rubs or gallops. Gastrointestinal: Abdomen soft, non-tender, non-distended. Genitourinary: No costovertebral angle tenderness. Neurologic:?? Moves all extremities spontaneously. Sensation intact bilaterally. Skin: No rashes or lesions. No petechiae or purpura.?? Musculoskeletal: b/l LE edema+ Consultants - Pending Results Add On Lab Order ordered on 01/05/2023 Blood Culture ordered on 01/04/2023 Blood Culture #2 ordered on 01/04/2023 Patient Education Titles Chronic Lung Disease: Preventing Lung Infections?? Chronic Lung Disease: Tips for Safe Exercise?? Chronic Lung Disease: My Travel Checklist?? Chronic Lung Disease: Coping Tips for Caregivers?? Chronic Lung Disease:??Controlling Stress?? Heart Failure?? Coping with Heart Failure?? Chronic Lung Disease: Tips for Safe Exercise?? Chronic Lung Disease: Helping with Treatment, For Caregivers?? Follow-Up Appointments Added Follow Up ?Time Frame ?Comments [facility] Card[facility]?2 to 3 weeks?Diastolic heart failure Hansel GONZALEZ , Cherise Bolden Post Discharge Care Condition: stable Prognosis: Good Discharge ?01/08/23 12:42:00 EDT Home Health Face to Face ^HomeHealthFTF Results Discharge Labs BLOOD COUNT & DIFF WBC 5.0 k/mm3 ()?? 01/08/2023 09:05 RBC 4.41 m/mm3 ()?? 01/08/2023 09:05 Hgb 11.9 Gm/dL ()?? 01/08/2023 09:05 Hct 39.0 % ()?? 01/08/2023 09:05 MCV 88.4 femtoliters ()?? 01/08/2023 09:05 MCH 27.0 pg ()?? 01/08/2023 09:05 MCHC 30.5 g/dL (Low)?? 01/08/2023 09:05 Platelet Count 169 k/mm3 ()?? 01/08/2023 09:05 RDW-SD 50.6 femtoliters (High)?? 01/08/2023 09:05 MPV 11.1 femtoliters ()?? 01/08/2023 09:05 Nucleated RBC (Automated) 0.0 #/100 WBC'S ()?? 01/08/2023 09:05 Abs. NRBC 0.0 k/mm3 ()?? 01/08/2023 09:05 Abs. Neut 4.1 k/mm3 ()?? 01/05/2023 05:09 Abs. Lymph 1.3 k/mm3 ()?? 01/05/2023 05:09 Abs. Lancaster 0.7 k/mm3 ()?? 01/05/2023 05:09 Abs. Eo 0.3 k/mm3 ()?? 01/05/2023 05:09 Abs. Baso 0.0 k/mm3 ()?? 01/05/2023 05:09 Neut % 63.8 % ()?? 01/05/2023 05:09 Lymph % 20.1 % ()?? 01/05/2023 05:09 Lancaster % 10.2 % ()?? 01/05/2023 05:09 Eos % 4.9 % ()?? 01/05/2023 05:09 Baso % 0.5 % ()?? 01/05/2023 05:09 Imm Gran 0.5 % ()?? 01/05/2023 05:09 Abs. Imm Gran 0.0 k/mm3 ()?? 01/05/2023 05:09 ?? CARDIAC Nt-Probnp 150 pg/mL (High)?? 01/04/2023 21:47 High Sensitivity Troponin (HSTnT) 15 ng/L (High)?? 01/05/2023 06:58 ?? CHEM GENERAL Sodium 134 mmol/L ()?? 01/08/2023 09:05 Potassium 4.4 mmol/L ()?? 01/08/2023 09:05 Chloride 92 mmol/L (Low)?? 01/08/2023 09:05 Bicarbonate Level 34 mmol/L (High)?? 01/08/2023 09:05 Anion Gap 8 ()?? 01/08/2023 09:05 Glucose Level 284 mg/dL (High)?? 01/08/2023 09:05 Glucose, POC 275 mg/dL (High)?? 01/08/2023 11:24 BUN 15 mg/dL ()?? 01/08/2023 09:05 Creatinine-Blood 0.5 mg/dL ()?? 01/08/2023 09:05 Estimated GFR Creatinine 102 ML/MIN/1.73 M2 ()?? 01/08/2023 09:05 Calcium 8.6 mg/dL ()?? 01/08/2023 09:05 Magnesium 1.9 mg/dL ()?? 01/06/2023 07:04 Lactate 1.1 mmol/L ()?? 01/04/2023 21:47 ? MISC. CHEMISTRY Hold Green Top SPECIMEN DISCARDED AFTER 1 WEEK ()?? 01/04/2023 21:47 ? URINE OTHER Est Creatinine Clearance 97.14 mL/min ()?? 01/07/2023 06:56 ? VIROLOGY COVID-19 by RT-PCR NEGATIVE ()?? 01/05/2023 01:17 ? Microbiology ?? COVID-19 (Novel Coronavirus), Rapid PCR?? Completed?? Source: Nasal Body Site: Nose Collected Dt/Tm: 01/05/2023 00:59 Last Updated Dt/Tm: 01/05/2023 02:44 ? 35_ minutes spent on discharge * Jj Carolyn FRANSWORTH: PERFORM Event Display: Patient Education/Instruction Authored Date: [id number] Inpatient Adult Discharge Instructions [address] [address] Name: VIDHYA ADAM : 1950 Visit: 01/05/2023 01:07:00 Current Date: 01/08/2023 12:58 Account: [id number] Inpatient Adult Discharge Instructions We would like [...] and their families. Surveys are administered by [employer] ?? If further treatment with your primary care physician or another doctor is recommended, it is important for you to keep the appointment. Call your primary care physician or return to the Emergency Department immediately if your condition worsens, fails to improve, or new symptoms develop. If you need to find a doctor, you can call [facility] for a referral at [phone] or toll free at [phone] or log in to [email or web address].. ?? You can view and manage your care through the patient portal or by using a health care shaneka of your choosing. [employer] is a website that allows you to securely view your medical information including your hospital discharge summary, office visit summaries, medications and follow-up visits. You can also request appointments, renew medications, and request access to your medical information using a health care shaneka of your choosing, or just ask a question. You can enroll at [email or web address] or register during your next office visit. You have been discharged from [facility], Patient Care Unit: M7. If you have any questions regarding these instructions after you leave, please call us and we will be happy to assist you. [facility] Your Care Team Attending Physician Tk Brooks MD, Krishna Henderson Discharging Providers Tk Brooks MD, Krishna Henderson Reason for Admission Pt coming from home with c/o fever since this evening. Pt sts not feeling well and increased SOB x 1 day. Pt also reports LLE cellulitis x 1 week. Your Diagnosis COPD exacerbation Tests Performed Below is a partial list of the tests performed during your hospitalization. You may have had other tests and procedures not included in this list. Please discuss all test results with your provider. Basic Metabolic Panel BUN Calcium Level CBC CBC w/ Differential COVID-19 (Novel Coronavirus), Rapid PCR Creatinine Electrolytes Glucose Level GLUCOSE POC High??Sensitivity??Troponin T HOLD GREEN TUBE Lactic Acid Level Magnesium Level PROBNP US Doppler Ext Lower Venous Left XR Chest Portable Primary Care Provider Cherise Hamm MD Advance Directive Health Care Proxy on File Yes - Health Care Proxy Yes - MOLST Discharge Vitals Temperature: 97.7 DegF Height: 168 cm Pulse Rate: 77 bpm Weight: 121.7 kg Respiratory Rate: 18 br/min Body Mass Index:??42.16 kg/m2??Critical Systolic Blood Pressure: 135 mm Hg Body surface area: 2.36 Systolic Blood Pressure: 135 mm Hg ?? Diastolic Blood Pressure: 61 mm Hg ?? Diastolic Blood Pressure: 61 mm Hg ?? Oxygen Saturation:??90 %??Low ?? Studies Pending All tests and labs ordered during this hospital stay have been completed unless listed below. Please discuss all pending results with your provider listed above in these instructions. ?? Add On Lab Order Blood Culture Blood Culture #2 What to do next Instructions From Your Doctor Discharge Orders Condition:??stable Prognosis:??Good Scheduled Follow-Up Appointments Monday 10:30 AM EDT ?? With: Burton Chapman DO Where: [facility] [address] [place] [address]- Status: Pending You Need to Schedule the Following Appointments Follow Up with??[facility] When:??Within 2 to 3 weeks Why: Diastolic heart failure Follow Up with??Cherise Hamm MD Where: [address] [place] [address]- Discharge Medications VIDHYA ADAM :1950 Visit Date:01/05/2023 Medications: Please continue your medications until treatment is completed or stopped by your provider. Medications not listed below should be discontinued. Discuss any questions related to medications with your provider. What How Much When Instructions Next Dose Changed Aspirin (Aspirin Low Dose 81 mg oral delayed release tablet) 1 tab(s) Oral Daily tomorrow 01/09 Changed Gabapentin (gabapentin 300 mg oral capsule) 1 capsule Oral Twice a day 01/08 Changed Insulin Glargine (Lantus Solostar Pen 100 units/ mL subcutaneous solution) INJECT 68 UNITS UNDER THE SKIN DAILY ?? 01/08 Changed Oxybutynin (oxybutynin 5 mg/ 24 hours oral tablet, extended release) TAKE 1 TABLET BY MOUTH EVERY DAY AT BEDTIME ?? 01/08 Changed fluticasone-vilanterol (Breo Ellipta 200 mcg-25 mcg/ inh inhalation powder) 1 puff(s) Inhalation Daily tomorr01/08 Unchanged Albuterol (albuterol 0.083% inhalation solution) 3 Milliliter Nebulized inhalation Every 6 hours as needed for Wheezing/Shortness of Breath ICD J45.909 ?? as needed every 6 hours for wheezing/ ??shortness of breath ?? Pickup at [facility]/pharmacy #[id number] as needed as directed Unchanged Albuterol (albuterol CFC free 90 mcg/ inh inhalation aerosol) 1 puff(s) Inhalation 4 times a day as needed for as needed for wheezing as needed for shortness of breath/ wheezing use with spacer chamber Please give spacer chamber to patient ?? Pickup at [facility]/pharmacy #[id number] as needed as directed Unchanged apixaban (Eliquis 5 mg oral tablet) 1 tab(s) Oral Twice a day 01/08 Unchanged dulaglutide (Trulicity Pen 0.75 mg/ 0.5 mL subcutaneous solution) 0.5 Milliliter Subcutaneous Injection Every week as previously taking Unchanged Ergocalciferol (Vitamin D2 50,000 intl units (1.25 mg) oral capsule) 1 capsule Oral Every 7 days as previously taking Unchanged Furosemide (Lasix 80 mg oral tablet) 1 tab(s) Oral Daily Duration: 30 Days tomorrow 01/09 Unchanged Insulin Lispro (Humalog Kwik Pen 100 units/ mL subcutaneous injection) See instructions As directed per sliding scale. 100-150 - 3units 151-200 - 5 units 201-250- 7 units 251-300- 9 units 301-350- 11 units > 350 - 13 units and call doctor ?? as ordered Unchanged Lisinopril (lisinopril 10 mg oral tablet) 1 tab(s) Oral Daily tomorrow 7 Unchanged Metformin (metFORMIN 850 mg oral tablet) 1 tab(s) Oral Daily in the morning tomorrow 73 Unchanged Methenamine (methenamine hippurate 1 gm oral tablet) 1 tab(s) Oral Twice a day Duration: 5 Days tonight 7/ Unchanged Metoprolol (Metoprolol Tartrate 50 mg oral tablet) 1 tab(s) Oral Twice a day tonight 7/ Unchanged Montelukast (Singulair 10 mg oral tablet) 1 tab(s) Oral Daily in PM tonight 01/08 Unchanged Ocular Lubricant (ocular lubricant - solution) 2 Drops Left eye Twice a day as needed for Other Dryness. ?? as needed as directed Unchanged Simvastatin (simvastatin 40 mg oral tablet) 1 tab(s) Oral Daily at Bedtime tonight 01/08 Pharmacy Information [facility]/pharmacy #[id number]: [address], [place] [id number] [phone] ?? What How Much When Comments Stop Taking Azithromycin (azithromycin 250 mg oral tablet) 1 pack/packet Oral Daily Stop Taking Clotrimazole Topical (clotrimazole 1% topical cream) 1 shaneka Topically Twice a day Stop Taking Docusate (docusate sodium 100 mg/ 25 mL oral syrup) 15 Milliliter Oral Every 4 hours as needed for for constipation Stop Taking Durable Medical Equipment ([employer] Mask fitting and ivap teaching) See instructions Mask Fitting and Ivap teaching for patient. Dx ERICKA G47.33 ?? Stop Taking Guaifenesin/ Dextromethorphan (dextromethorphan-guaifenesin 10 mg- 100 mg/ 10 mL oral liquid) 10 Milliliter Oral Every 4 hours as needed for as needed for cough not to exceed 6 doses/ day ?? Stop Taking Povidone Iodine Topical (Betadine 10% solution) See instructions Topically Daily ?? Stop Taking PredniSONE (predniSONE 10 mg oral tablet) See instructions 2 tabs daily for 3 days, then 1 tab daily for 3 days, then stop ?? Stop Taking Sodium Chloride (Hyper-Praveen 3.5% inhalation solution) See instructions Use twice daily as needed for cough/ secretions via nebulizer. Should be preceded by albuterol via nebulizer. j45.909 ?? Test Results Below is a partial list of the most recent Laboratory test results done prior to this discharge. You may have had other tests and procedures not included in this list. Please discuss all test resultswith your provider. Est Creatinine Clearance - 97.14 mL/min (01/07/2023) Basic Metabolic Panel (01/08/2023) ???Sodium - 134 mmol/L???Potassium - 4.4 mmol/L???Chloride - 92 mmol/L???Bicarbonate Level - 34 mmol/L???Anion Gap - 8???Glucose Level - 284 mg/dL???BUN - 15 mg/dL???Creatinine-Blood - 0.5 mg/dL???Estimated GFR Creatinine - 102 ML/MIN/1.73 M2???Calcium - 8.6 mg/dL BUN (01/06/2023) ???BUN - 20 mg/dL Calcium Level (01/06/2023) ???Calcium - 8.7 mg/dL CBC (01/08/2023) ???WBC - 5.0 k/mm3???RBC - 4.41 m/mm3???Hgb - 11.9 Gm/dL???Hct - 39.0 %???MCV - 88.4 femtoliters???MCH - 27.0 pg???MCHC - 30.5 g/dL???Platelet Count - 169 k/mm3???RDW-SD - 50.6 femtoliters???MPV - 11.1 femtoliters???Nucleated RBC (Automated) - 0.0 #/100 WBC'S???Abs. NRBC - 0.0 k/mm3 CBC w/ Differential (01/05/2023) ???WBC - 6.4 k/mm3???RBC - 4.84 m/mm3???Hgb - 13.1 Gm/dL???Hct - 41.8 %???MCV - 86.4 femtoliters???MCH - 27.1 pg???MCHC - 31.3 g/dL???Platelet Count - 170 k/mm3???RDW-SD - 49.0 femtoliters???MPV - 11.3 femtoliters???Nucleated RBC (Automated) - 0.0 #/100 WBC'S???Abs. NRBC - 0.0 k/mm3???Abs. Neut - 4.1 k/mm3???Abs. Lymph - 1.3 k/mm3???Abs. Lancaster - 0.7 k/mm3???Abs. Eo - 0.3 k/mm3???Abs. Baso - 0.0 k/mm3???Neut % - 63.8 %???Lymph % - 20.1 %???Lancaster % - 10.2 %???Eos % - 4.9 %???Baso % - 0.5 %???Imm Gran - 0.5 %???Abs. Imm Gran - 0.0 k/mm3 COVID-19 (Novel Coronavirus), Rapid PCR (01/05/2023) ???COVID-19 by RT-PCR - NEGATIVE Creatinine (01/06/2023) ???Creatinine-Blood - 0.6 mg/dL???Estimated GFR Creatinine - 97 ML/MIN/1.73 M2 Electrolytes (01/06/2023) ???Sodium - 137 mmol/L???Potassium - 4.0 mmol/L???Chloride - 96 mmol/L???Bicarbonate Level - 34 mmol/L???Anion Gap - 7 Glucose Level (01/06/2023) ???Glucose Level - 120 mg/dL GLUCOSE POC (01/08/2023) ???Glucose, POC - 275 mg/dL High??Sensitivity??Troponin T (01/05/2023) ???High Sensitivity Troponin (HSTnT) - 15 ng/L HOLD GREEN TUBE (01/04/2023) ???Hold Green Top - SPECIMEN DISCARDED AFTER 1 WEEK Lactic Acid Level (01/04/2023) ???Lactate - 1.1 mmol/L Magnesium Level (01/06/2023) ???Magnesium - 1.9 mg/dL PROBNP (01/04/2023) ???Nt-Probnp - 150 pg/mL Allergies (NKA means No Known Allergies) Silvadene??(skin [...] Educational Leaflet Providered with your Discharge Instructions. Chronic Lung Disease: Preventing Lung Infections?? Chronic Lung Disease: Tips for Safe Exercise?? Chronic Lung Disease: My Travel Checklist?? Chronic Lung Disease: Coping Tips for Caregivers?? Chronic Lung Disease:??Controlling Stress?? Heart Failure?? Coping with Heart Failure?? Chronic Lung Disease: Tips for Safe Exercise?? Chronic Lung Disease: Helping with Treatment, For Caregivers?? Valuables and Belongings I fully understand and agree that [facility] accepts no responsibility for all my [...] Review of Valuable and Belonging List: With patient, With witness Date for Pt to Sign Valuables/Belongings: 01/05/23 13:38:00 ?? Other Discharge Information ?? Wound Assessment?? Wound Assessment?? Wound Location I: Leg, left lower Wound Type I: Blister Wound I, Present on Admission: Yes ? Pulmonary Rehab Status?? Pulmonary Rehab Discharge [...] are strongly encouraged to quit. Please call [facility] [employer] [facility] at [phone] or [phone] ([phone]) or log in to [email or web address] for referrals to smoking cessation programs. ?? 879 Suicide & Crisis Lifeline is available 30/01 if you or someone you know needs to find a reason to keep living. By calling 625 you'll be connected to a skilled, trained counselor at a crisis center in your area. INPATIENT DISCHARGE INSTRUCTIONS SIGNATURE GERSON VIDHYA ADAM Location:[facility] Registration Date and Time:01/05/2023 01:07 EDT Primary Care Physician: Cherise Hamm MD, Attending Physician: Tk Brooks MD, Krishna Henderson, I VIDHYA ADAM, have received the above patient education materials/instructions and have verbalized understanding. If ambulance or transport services are being used I further acknowledge being given a choice of service. ?? If you need to contact me, please call me at this number: . Patient/Corporate Real Estate Manager Name: Patient/Corporate Real Estate Manager Signature: Relationship to Patient: Witness Name/Signature: Date: * Tk Brooks MD, Krishna Henderson: PERFORM Event Display: Patient Education Leaflets Authored Date: [id number] Chronic Lung Disease: Preventing Lung Infections ?? [id number] Chronic Lung Disease: Preventing Lung Infections There are many types of chronic lung disease. You may have one of these: ??? Chronic obstructive lung disease (COPD) ??? Chronic bronchitis ??? Emphysema ??? Pulmonary fibrosis ??? Sarcoidosis When you have a chronic lung disease, it's important to protect yourself from respiratory infections. This includes colds, the flu, and lung infections such as pneumonia. Infections like these may cause your chronic lung disease to get worse. It's hard to fully escape getting sick. But there are things you can do to lower your risk of infections. Tips for preventing illness You can lower your risk of respiratory infections with these steps: ??? Keep your hands clean. Washyour hands often, including before and after eating, after using the bathroom, and after coughing, sneezing, or blowing your nose. If you can???t wash, use hand certified rehabilitation counselor that has at least 60% alcohol. Use it after touching doorknobs, handles, keypads, and anything else other people have touched. Then wash your hands as soon as you can. ??? Wash well. When you wash your hands, use soap and clean,running water. Rub your hands together well for at least 20 seconds. Be sure to wash the backs of your hands, between your fingers, and under your fingernails. Rinse them well. Dry your hands on clean towels or let them air-dry. ??? Don???t touch your face. If your hands aren???t clean, keep them away from your nose and mouth. Germs on your hands can get into your respiratory system this way. ???Get recommended vaccines. To help prevent the flu, get a flu shot every year. You may be able to get it at your healthcare provider's office, a drugstore, pharmacy, or at work. Get your flu shot as soon as the vaccines are available in your area. This is often around March each year. A pneumonia vaccine can also help prevent pneumococcal pneumonia. Talk with your healthcare provider about which vaccine you need, the number of doses, and when you should have them. The COVID-19 vaccine can help prevent serious illness from COVID-19. ??? Stay away from sick people. Try to stay away from people with colds or the flu. Stay away from crowded places during cold and flu season. This may includeshopping centers, movie theaters, and social events. ??? Quit smoking. If you smoke, talk with yourhealthcare provider about getting help to quit. Smoking can make your lung disease worse. And it increases your risk of infections. Also stay away from other people's smoke. This is called secondhand smoke. It is also harmful and increases your chance of infections. ??? Wear a mask. Wearing a mask indoors can help prevent respiratory illnesses. Consider wearing a mask during cold and flu season if you are in crowded places. ?? Last Reviewed Date: 2022 ?? [employer]. All rights reserved. This information is not intended as a substitute for professional medical care. Always follow your healthcare professional's instructions. ?? * Tk Brooks MD, Krishna Henderson: PERFORM Event Display: Patient Education Leaflets Authored Date: [id number] Chronic Lung Disease: Tips for Safe Exercise ?? 84762 Chronic Lung Disease: Tips for Safe Exercise After you have met with your healthcare provider and set up an exercise plan, use these tips for better exercise. You can use them at your pulmonary facility or at home.?? Get ready for your workout Here's how to get ready: ??? Plan your workout for the time of day when you normally have the most energy. ??? Dress for comfort. Wear shoes that support your feet. ??? Use a bronchodilator if one has been prescribed. For best results, use it 20 to 30 minutes before exercise or any other strenuous a ctivity. ??? Clear your lungs of mucus if needed. ??? Use oxygen if it???s prescribed for use during activity. Increase the flow rate only if your healthcare provider has told you to. Raising it on your own can be unsafe. ??? Check the weather before you start. On warm or humid days, reduce your workout and rest more often. Also drink extra fluids. Exercise earlier in the day, before it gets hot.If it???s cold outside or if air quality is poor, exercise indoors. Walk inside your home or in a mall. ? My starting goal is minutes of exercise, days a week. ?? Warm up and cool down Here's what you can do before and after exercising:? To warm up, start with a few stretches. This gets your muscles ready for exercise. ??? After your stretches, move on to heavier activity. Pace yourself. Remember to breathe. ??? Toward the end of your workout, decrease your effort so your body can cool down. Then stretch again. This relaxes your muscles. It helps prevent soreness, too. ???Rest and relax. ?? Stay safe during exercise Tips for safe exercise:? Follow the guidelines your healthcare provider or pulmonary rehab team has set for you. ??? Pace yourself. Stop and rest when you need to. ??? Drink plenty of water before, during, and after exercise. ??? Remember that shortness of breath is OK, as long as you can talkand are in control of your breathing. Everyone gets short of breath during exercise???even people without chronic lung disease. But if you can???t speak, you???re pushing yourself too hard. If you have increased shortness of breath, slow down. If it continues, stop and rest. ??? Use pursed-lip breathing to control shortness of breath. ??? Keep your rescue inhaler with??you.??Use it if you need to. ?? Watch for signs of overexertion Stop exercising right away and call your healthcare provider if you feel any of these: ??? Abnormalor increasing shortness of breath ??? Chest pain or discomfort (burning, tightness, heaviness, or pressure) ??? Aching in your arms, shoulder, neck, jaw, or back that is typical for you ??? A slightly racing or skipping heartbeat ??? Feeling much more tired than usual ??? Feeling slight lightheadedness, dizziness, confusion, or nausea ??? Abnormal joint pain ?? Call 911 Call 911 if you have any of these: ??? Abnormal, severe, or quickly worsening shortness of breath ??? Unusual or severe chest pain or discomfort (burning, tightness, heaviness, or pressure) ??? Abnormal aching in your shoulders, arm, neck, jaw, or back ??? Feeling very lightheaded or dizzy ??? A very fast or skipping heartbeat ??? Not able to talk ?? Last Reviewed Date: 2021 ?? 3769-0400 [employer]. All rights reserved. This information is not intended as a substitute for professional medical care. Always follow your healthcare professional's instructions. ?? * Tk Brooks MD, Krishna Henderson: PERFORM Event Display: Patient Education Leaflets Authored Date: [id number] Chronic Lung Disease: My Travel Checklist ?? 77916 Chronic Lung Disease: My Travel Checklist Chronic lung disease shouldn???t stop you from traveling, visiting family and friends, and enjoyingyourself. You can do this even if you use oxygen. You just need to be prepared. Changes in altitudeand climate can affect breathing. This may mean making changes to your treatment. So talk with yourhealthcare provider about your plans. Before traveling Get ready before taking a trip:? Get your prescriptions filled. Bring enough medicine for yourwhole trip. ??? Get copies of your prescriptions. Ask your healthcare provider if you might need prescriptions for any other medicines while traveling. ??? Bring a list of your medicines. ??? Ask your provider what to do in case of infection or a flare-up of COPD symptoms. They may prescribe emergency medicines just in case. These may include antibiotics or steroids. ??? Call your insurance company. Make sure you???ll have coverage where you???re going. ??? Get a portable nebulizer (if needed).??? If traveling with oxygen, plan ahead: o Call your provider to get copies of your oxygen prescription. o You may need a letter from your provider stating that you must use oxygen. o You may need to have oxygen sent to your destination. Before you travel, call a medical supply company where you'll be staying. They can help make sure oxygen gets there before you do. o Call the airline, bus, boat, or train company you'll be using. Find out what's required for traveling with oxygen. o Give yourself a few weeks to make these arrangements. ?? While traveling Tips to make traveling easier:? Wear a medical ID bracelet. This should list your health conditions. And any medicines you???re allergic to. ??? Use a hand certified rehabilitation counselor often. This helps kill germsand prevent infection. ??? Keep your medicines in your carry-on bags. This way you???ll have them if you get from your checked luggage. ??? Use your metered dose or rescue inhaler before you get up to move around if one has been prescribed. For example, you may use it before getting off the plane. It's very important to always use the correct technique when using your inhaler. ? Stretch your arms and legs if you???re sitting for a long time. This helps keep your blood moving. Try using your ankles and feet to spell out each letter of the alphabet. ?? Last Reviewed Date: 2021 ?? 7076-1972 [employer]. All rights reserved. This information is not intended as a substitute for professional medical care. Always follow your healthcare professional's instructions. ?? Patient Care team information Care Team Personnel Name: Alvaro Oliver RN Position: [facility] RN Member Role: Primary Care Nurse Name: Tk Iqbal [facility] RN Member Role: Primary Care Nurse Name: Jovanny Stuart RN [facility] RN Member Role: Primary Care Nurse Name: Delaney De Los Santos RN Position: [facility] SN RN Member Role: Primary Care Nurse Name: Michelle Ricketts Position: [facility] RN Member Role: Primary Care Nurse Name: Cande Kennedy RN Position: [facility] AMB Nurse Member Role: Primary Care Nurse Name: Batool Summers Position[facility] RN Member Role: Primary Care Nurse Name: Lainey Walker LPN Position: [facility] RN Member Role: Primary Care Nurse Name: Yanira Trevizo Position[facility] RN Member Role: Primary Care Nurse Name: Batool Cervantes RN Position: [facility] RN Member Role: Primary Care Nurse Name: Batsheva Bernard RN Position: [facility] RN Member Role: Primary Care Nurse Name: Fern Franklin LPN Position[facility] RN Member Role: Primary Care Nurse Name: Vasyl Catherine RN Position[facility] RN Member Role: Primary Care Nurse Name: Eve Masters RN Position: [facility] RN Member Role: Primary Care Nurse Name: Jenelle Jay RN Position: [facility] RN Member Role: Primary Care Nurse Name: Elizabeth Barrios RN Position[facility] RN Member Role: Primary Care Nurse Name: Jignesh Stoner RN [facility] RN Member Role: Primary Care Nurse Name: Kady Garcias RN [facility] RN Member Role: Primary Care Nurse Name: Rosy Arriaza RN Position: [facility] RN Member Role: Primary Care Nurse Name: Cherise Hamm MD Position: [facility] Outreach Member Role: PCP Address: Address: [address] [place] [id number]- Name: Chyna Aguilar RN Position: [facility] RN Member Role: Primary Care Nurse Address: Address: [address] [place] [id number]- Name: John Guaman RN Position: [facility] RN Member Role: Primary Care Nurse Name: Rocio Andrade RN Position: [facility] RN Member Role: Primary Care Nurse Name: Ziyad SPRINGER Attending Position: [facility] ED Medicine MD Name: Patito Covarrubias RN Position: [facility] ED RN W/OE and Tasks Member Role: Patient Care Provider Name: Delaney Bates Position: [facility] Member Role: Utilization Specialist Name: Gonzalo Mcgrath Position: [facility] Care Team Related Persons Name: HANANE ADAME [address] [address] [place] [address] Name: NATHEN LLOYD
--- OUTSIDE RECORDS SUMMARY | 2024-01-06 09:18 | XMS_ITS | Continuity of Care Document ---
Author Organization [facility] ter Address [address] [place] [id number]- Care Team Providers Care Piece Dyer Name Role Phone Cherise Hamm MD Primary Care Physician Encounter [facility] Date(s): 12/25/22 - 12/26/[address] [address]- Encounter Diagnosis Molina catheter problem(Final) - 12/25/22 Discharge Disposition: A-D/C Home Attending Physician: Justa [...] Refills, Maintenance, 11/14/22 17:09:00 EDT, Solution, [facility]/pharmacy #[id number], ICD 10 - J45.901, [...] Soft Stop, 11/01/22 11:28:00 EDT, Tablet, [facility]/pharmacy #[id number], Partial fill upon patient request if the prescription is for a schedule II opioid drug., 167.64, cm, 11/01/22 7:13:00 EDT, Height, 117... Start Date: 11/01/22 Status: Ordered Betadine 10% solution See Instructions, Topically Daily, # 240 mL, 0 Refills, Maintenance, 12/17/22 12:11:00 EDT, [facility], Partial fill upon [...] Refills, Maintenance, 12/08/22 3:25:00 EDT, Cream, [facility]/pharmacy #[id number], Partial fill [...] Refills, Maintenance, 11/01/22 11:22:00 EDT, Liquid, [facility]/pharmacy #[id number], Partial fill upon patient request if the prescription is for a schedule II opioid d... Start Date: 11/01/22 Status: Ordered docusate sodium 100 mg/25 mL oral syrup 15 mL = 60 mg, By Mouth, Every 4 hours, PRN for constipation, # 480 mL, 0 Refills, Maintenance, 12/08/22 3:24:00 EDT, Syrup, [facility]/pharmacy #[id number], Partial fill [...] 2 Refills, Maintenance, 11/14/22 17:09:00 EDT, [facility]/pharmacy #[id number], Partial fill upon patient request... [...] Refills, Maintenance, 08/01/22 11:21:00 EST, Solution, [facility]/pharmacy #[id number], Partial fill upon patient request if the prescription is for a schedule II opioid drug., 2 drops Eye, Left 2... Start Date: 08/01/22 Status: Ordered oxybutynin 5 mg/24 hours oral tablet, extended release 1 tablet = 5 mg, By Mouth, Daily at bedtime, # 30 tablet, 0 Refills, Maintenance, 11/26/22 19:42:00EDT, ER Tablet, [facility]/pharmacy #[id number], Partial fill [...] Refills, Maintenance, 11/01/22 11:08:00 EDT, Tablet, [facility]/pharmacy #[id number], Partial fill [...] 11:29:00 EDT, Route to Pharmacy Electronically, [facility]/pharmacy #[id number], Partial fill [...] Exam Date Time Procedure Performing Provider Status 12/25/22 5:57 PM Chest Portable Alvaro Yeager; Auth (Verified) Notes: (Chest Portable) Reason For Exam: Chest Pain;Other: RESULT: Chest Portable Chest Portable Hx of Present Illness: 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 POC 574, pt did not take her insulin, Molina dislodged.; Reason: Other:; Chest Pain; Clinical Question(s): CHF COMPARISON: Numerous priors, most recent 12/12/2022. FINDINGS: LINES AND TUBES: None. LUNGS AND PLEURA: Diffuse pulmonary vascular congestion. Low lung volumes with lung base atelectasis/crowding. No pleural effusion. No pneumothorax. HEART, MEDIASTINUM AND KOLTON: Heart is normal in size. Normal mediastinal and hilar contour. BONES AND SOFT TISSUES: No acute abnormality. IMPRESSION: Pulmonary vascular congestion and low lung volumes. WSN: [id number] Ordering Physician: Isabel Zamudio Dictated By: Consuelo Bentley MD Dictated Date/Time: 12/25/22 6:00 pm Reviewed By: Consuelo Bentley MD Signed By: Consuelo Bentley MD Signed Date/Time: 12/25/22 6:00 pm Transcribed By: SOLOMON Transcribed Date/Time: 12/25/22 5:59 pm Vital Signs Most recent to oldest [Reference Range]: 1 2 3 Oxygen Saturation [94-100 %] 94 % (12/26/22 1:00 AM) 94 % (12/25/22 11:00 PM) 93 % *L* (12/25/22 8:59 PM) Pulse Rate [55-90 bpm] 69 bpm (12/26/22 1:00 AM) 69 bpm (12/25/22 11:00 PM) 70 bpm (12/25/22 8:59 PM) Blood Pressure [90-138/55-84 mm Hg] 144/96mm Hg *H* (12/26/22 1:00 AM) 159/97mm Hg *H* (12/25/22 11:00 PM) 140/60mm Hg *H* (12/25/22 8:59 PM) Respiratory Rate [16-30 br/min] 19 br/min (12/25/22 8:59 PM) Temperature [96.8-100.4 DegF] 98.3 DegF (12/25/22 5:02 PM) Liters per Minute 2 L/min (12/25/22 4:45 PM) Mode of Delivery (Oxygen) Room air (12/26/22 1:00 AM) Room air (12/25/22 11:00 PM) Room air (12/25/22 8:59 PM) Temperature Route Oral (12/25/22 5:02 PM) Social History Social History Type Response Smoking Status Former smoker; Tobac co user in household: No entered on: 01/17/17 Sex EKG study * Event Display: EKG Authored Date: Patient Care team information Care Team Personnel Name: Alvaro Oliver RN Position: [facility] RN Member Role: Primary Care Nurse Name: Tk Iqbal RN Position: [facility] RN Member Role: Primary Care Nurse Name: Jovanny Stuart RN Position: [facility] RN Member Role: Primary Care Nurse Name: Delaney De Los Santos RN Position: [facility] RN Member Role: Primary Care Nurse Name: Michelle Ricketts Position: [facility] RN Member Role: Primary Care Nurse Name: Cande Kennedy RN Position: [facility] AMB Nurse Member Role: Primary Care Nurse Name: Batool Summers Position: [facility] RN Member Role: Primary Care Nurse Name: Lainey Walker LPN Position: [facility] RN Member Role: Primary Care Nurse Name: Yanira Trevizo Position: [facility] RN Member Role: Primary Care Nurse Name: Batool Cervantes RN Position: [facility] RN Member Role: Primary Care Nurse Name: Rafael Hicks RN Position: [facility] RN Member Role: Primary Care Nurse Name: Batsheva Bernard RN Position: [facility] RN Member Role: Primary Care Nurse Name: Fern Franklin LPN Position: [facility] RN Member Role: Primary Care Nurse Name: Vasyl Catherine RN Position: [facility] RN Member Role: Primary Care Nurse Name: Eve Masters RN Position: [facility] RN Member Role: Primary Care Nurse Name: Jenelle Jay RN Position: [facility] RN Member Role: Primary Care Nurse Name: Elizabeth Barrios RN Position: [facility] RN Member Role: Primary Care Nurse Name: Jignesh Stoner RN Position: [facility] RN Member Role: Primary Care Nurse Name: Kady Garcias RN Position: [facility] RN Member Role: Primary Care Nurse Name: Rosy Arriaza RN Position: [facility] RN Member Role: Primary Care Nurse Name: Cherise Hamm MD Position: [facility] Outreach Member Role: PCP Address: Address: [address] [place] [address]- [place] Name: Chyna Aguilar RN Position: [facility] RN Member Role: Primary Care Nurse Address: Address: [address] [place] [address]- [place] Name: John Guaman RN Position: [facility] RN Member Role: Primary Care Nurse Name: Rocio Andrade RN Position: [facility] RN Member Role: Primary Care Nurse Name: Cora Rice RN Position: [facility] ED RN W/OE and Tasks Member Role: Patient Care Provider Name: Isabel Zamudio DO Position: [facility] Resident Member Role: ED Resident Address: Address: [address] [place] [address] - Name: Debbie Valenzuela RN Position: [facility] ED RN W/OE and Tasks Member Role: Patient Care Provider Name: Justa Raza DO Position: [facility] ED Medicine MD Member Role: ED Attending Physician Address: Address: [address] [place] [address] - [place] Name: Kimmie Bridges Position: [facility] ED TA [facility] Care Team Related Persons Name: KIA STEPHANI Address: [address] [place] [address] Name: NATHEN LLOYD
--- OUTSIDE RECORDS SUMMARY | 2024-01-06 09:18 | XMS_ITS | Continuity of Care Document ---
Author Organization [facility] ter Address [address] [place] [id number] Care Team Providers Care Equipment Records Supervisor Name Role Phone Hansel GONZALEZ, Cherise Bolden Primary Care Physician [phone] Encounter [facility] Date(s): 07/11/22 - 07/13/[address] [address]- Encounter Diagnosis COPD exacerbation(Final) - 07/12/22 Rai catheter problem(Final) - 07/12/22 Cough(Final) - 07/12/22 Sputum production(Final) - 07/12/22 Discharge Disposition: A-D/C Home Attending Physician: Tamanna Maxwell MD Admitting Physician: Roderick Blevins MD Referring [...] 07/13/22 Not Given Patient Refuses Medications albuterol CFC free 90 mcg/inh inhalation aerosol 1, puffs, Inhalation, 4 times a day, PRN, # 6.7 Gm, Refills 0, Tot. Refills 0, Maintenance, 07/13/22 12:42:00 EST, Aerosol, Route to Pharmacy Electronically, [id number], [facility], 168, cm, 07/12/22 18:17:00 ES... Start Date: 07/13/22 Status: Ordered albuterol-ipratropium 3 mg-0.5 mg/3 ml inhalation solution 3 mL, BAND Nebulizer, 4 times a day, PRN Wheezing/Shortness of Breath, # 90 mL, 0 Refills, Maintenance, 07/13/22 12:36:00 EST, Inhalation Solution, [facility], Partial fill upon patientrequest if [...] 0 Refills, Maintenance, 07/13/22 13:54:00 EST, Powder, [facility] 3, Partial fill upon patient request if the prescription is for aschedule II opioid drug., 1 puffs Inhalation 2 time... Start Date: 07/13/22 Status: Ordered gabapentin 300 mg oral capsule 300 mg, Capsule, By Mouth, 07/13/22 9:00:00 EST Start Date: 07/13/22 Stop Date: 07/13/22 Status: Completed gabapentin 300 mg oral capsule [...] 07/18/22 9:14:00 EST, 07/13/22 9:14:00 EST, Tablet, [facility] 3, Partial fill upon patient request if [...] oral tablet 10 mg, Tablet, By Mouth, 07/13/22 9:00:00 EST Start Date: 07/13/22 Stop Date: 07/13/22 Status: Completed metFORMIN 850 mg oral tablet [...] 07/15/22 9:13:00 EST, 07/13/22 9:13:00 EST, Tablet, [facility] 3, Partial fill upon patient request if [...] for Microbiology Reports Name Date Urine Culture 07/12/22 Urine Culture (URINE CULTURE) 07/10/22 Microbiology Reports TEST:Urine Culture STATUS:Unauthenticated BODY SITE: SOURCE:BLADDE COLLECTED DATE/TIME:07/12/22 12:57 PM Urine Culture SPECIMEN DESCRIPTION : BLADDER SPECIAL REQUESTS : NONE CULTURE : >100,000 COL/ML SERRATIA MARCESCENS This isolate was identified using Maldi-TOF system REPORT STATUS : PRELIMINARY REPORT TEST:Urine Culture STATUS:Unauthenticated BODY SITE: SOURCE:URINE COLLECTED DATE/TIME:07/10/22 1:00 PM Urine Culture SPECIMEN DESCRIPTION : URINE SPECIAL REQUESTS : NONE CULTURE : >100,000 COL/ML ESCHERICHIA COLI This isolate was identified using Maldi-TOF system >100,000 COL/ML PROTEUS MIRABILIS This isolate was identified using Maldi-TOF system REPORT STATUS : PRELIMINARY REPORT Radiology Reports * Exam Date Time Procedure Performing Provider Status 07/11/22 10:58 PM Chest Portable Janny , Rufino; Auth (Ve rified) Notes: (Chest Portable) Reason For Exam: COPD RESULT: Chest Portable Chest Portable Reason: COPD; Clinical Question(s): Pleural Effusion COMPARISON: 04/30/2022 FINDINGS: LINES AND TUBES: None. LUNGS AND PLEURA: Low lung volumes with mild basilar atelectasis. Lungs are otherwise clear with no consolidation. No pleural effusion. No pneumothorax. HEART, MEDIASTINUM AND KOLTON: Heart is normal in size. Normal mediastinal and hilar contour. BONES AND SOFT TISSUES: No acute abnormality. IMPRESSION: No pleural fluid collection identified. WSN: [id number] Ordering Physician: Irma Cole Dictated By: Bubba Silveira MD Dictated Date/Time: 07/11/22 11:04 p Reviewed By: Bubba Silveira MD Signed By: Bubba Silveira MD Signed Date/Time: 07/11/22 11:04 pm Transcribed By: SOLOMON Transcribed Date/Time: 07/11/22 11:03 pm Vital Signs Most recent to oldest [Reference Range]: 1 2 3 Height 168 cm (07/13/22 2:02 PM) 168 cm (07/12/22 6:13 PM) Weight 120 kg (07/12/22 6:13 PM) Oxygen Saturation [94-100 %] 96 % (07/13/22 2:02 PM) 100 % (07/13/22 5:00 AM) 95 % (07/12/22 9:00 PM) Pulse Rate [55-90 bpm] 87 bpm (07/13/22 2:02 PM) 70 bpm (07/13/22 5:00 AM) 72 bpm (07/12/22 9:00 PM) Body Mass Index [18.5-24.99 kg/m2] 42.52 kg/m2 *>HHI* (07/12/22 6:13 PM) Blood Pressure [90-138/55-84 mm Hg] 142/82mm Hg *H* (07/13/22 2:02 PM) 138/52mm Hg (07/13/22 8:46 AM) 138/52mm Hg (07/13/22 5:00 AM) Respiratory Rate [16-30 br/min] 18 br/min (07/13/22 2:02 PM) 16 br/min (07/13/22 9:46 AM) 16 br/min (07/13/22 8:46 AM) Temperature [96.8-100.4 DegF] 98.2 DegF (07/13/22 2:02 PM) 97.4 DegF (07/13/22 5:00 AM) 97.7 DegF (07/12/22 9:00 PM) Liters per Minute 2 L/min (07/13/22 5:00 AM) 2 L/min (07/12/22 9:00 PM) 2 L/min (07/12/22 5:13 PM) Mode of Delivery (Oxygen) Room air (07/13/22 2:02 PM) Nasal cannula (07/13/22 5:00 AM) Nasal cannula (07/12/22 9:00 PM) Blood pressure sites Arm, left (07/13/22 2:02 PM) Arm, right (07/13/22 5:00 AM) Arm, left (07/12/22 9:00 PM) Temperature Route Oral (07/13/22 2:02 PM) Oral (07/13/22 5:00 AM) Oral (07/12/22 9:00 PM) Dry Weight 120 kg (07/12/22 6:13 PM) Weight Obtained Via Bed scale (07/12/22 6:13 PM) Dry Weight Obtained Via Bed scale (07/12/22 6:13 PM) Social History Social History Type Response Smoking Status Former smoker; Tobac co user in household: No entered on: 01/17/17 Sex History and physical note * Trell Kennedy MD: PERFORM Event Display: History and Physical Hospital Authored Date: [id number] Patient: ??VIDHYA ADAM ? Age:??71 Years?Sex:??Female?:??1950?? Chief Complaint/Reason for Consultation coming from home, dx UTI, catheter changed here yesterday, has been leaking, also c/o SOB (chronic), hx COPD & sleep apnea History of Present Illness 71-year-old female??presents to the ER complaining of leaking around Rai catheter.?? The patient??presented to the ER on 07/10??with concerns for a possible UTI. ??The patient has??history of neurogenic bladder and chronic Rai catheter in place.?? She was felt to have a UTI and was discharged from the ER with nitrofurantoin.?? Apparently her Rai catheter was changed in the ER. ??After returning home she noted that??there was leakage around the Rai catheter??and she returned to the ER. ??In the ER they??injected saline into the bulb of the Rai catheter and the leakage stopped.?? However the patient??also complained of shortness of breath.?? She tells me that for the last 2 weeks she has been feeling more short of breath than normal??with an associated dry cough. ??She uses oxygen 2L at night at home.?? She has a reported history of COPD.?? She denies any fevers, chest pain, vomiting, diarrhea. ??She has also been wheezy.?? In the emergency room she was felt to have COPD exacerbation and was given??updrafts and??steroids.?? She is feeling somewhat better. ? RESULT: Chest Portable Chest Portable?? FINDINGS: IMPRESSION: No pleural fluid collection identified. Review of Systems Constitutional:??No weight loss, fever, chills, weakness or fatigue. Eyes:??No visual loss, blurred vision, double vision or yellow sclera ENT:??No hearing loss, sneezing, congestion, runny nose or sore throat. Respiratory:??Shortness of breath Cardiovascular:??No chest pain, chest pressure or chest discomfort. No palpitations or pedal edema. Gastrointestinal:??No anorexia, nausea, vomiting or diarrhea. No abdominal pain or blood in stool. Genitourinary:??Rai catheter leaking Neurologic:??No headache, dizziness, syncope, unilateral weakness, ataxia, numbness or tingling in the extremities. No change in bowel or bladder control. Musculoskeletal:??No muscle pain, back pain, joint pain or stiffness. Skin:??No rash or itching. Endocrine:??No reports of sweating. No cold or heat intolerance. No polyuria or polydipsia. Psychiatric:??No depression or anxiety. Objective ? Vital Signs?? Temperature: 97.5 DegF (07/11/22 23:01:00) Temperature Route: Oral (07/11/22 23:01:00) Pulse Rate: 66 bpm (07/12/22 03:01:00) Respiratory Rate: 23 br/min (07/12/22 03:01:00) Systolic Blood Pressure:??152 mm Hg??High (07/12/22 03:01:00) Diastolic Blood Pressure:??87 mm Hg??High (07/12/22 03:01:00) Blood pressure sites: Arm, left (07/12/22 03:01:00) Mean Arterial Pressure: 109 mm Hg (07/12/22 03:01:00) Pulse Pressure: 65 mm Hg (07/12/22 03:01:00) Oxygen Saturation: 95 % (07/12/22 03:01:00) Early Warning Score: 7 (07/12/22 03:01:47) ? Physical Exam Constitutional: Alert, in no distress. Mental Status: Oriented to person, place and time. Head: Normocephalic. Eyes: Pupils are equal, round and reactive to light. Extraocular muscles intact. Ear, Nose and Throat: Oropharynx clear, mucous membranes moist. Ears and nose without masses, lesions or deformities. Trachea midline. Neck: Supple, Full range of motion. Respiratory: Scattered rhonchi/wheezes. Cardiovascular: S1 S2 regular. No murmurs, rubs or gallops. Gastrointestinal: Abdomen soft, non-tender, non-distended. Normal bowel sounds. Neurologic: Cranial nerves II-XII grossly intact. ??Power 5/5 bilateral upper extremities,??2/5 bilateral lower extremities Skin: No rashes or lesions. No petechiae or purpura.?? Musculoskeletal: No cyanosis or clubbing. No gross deformities. Normal range of motion. Psychiatric: Normal mood and affect Assessment/Plan ?71-year-old female??with a complicated past medical history is admitted with COPD exacerbation??and complicated UTI ?? 1. ??Complicated UTI: As noted above she was seen in the ER yesterday and the Rai catheter was changed We will continue antibiotics with p.o. Levaquin Await urine culture results ?? 2.?? COPD/asthma exacerbation: Continue updraft scheduled and as needed Prednisone pulse Oxygen as needed RSV/COVID/flu negative ?? 3. ??Diabetes: Continue Lantus??and metformin Sliding scale ?? 4. ??Peripheral neuropathy: Continue gabapentin ?? 5. paroxysmal??atrial fibrillation: Continue apixaban for??anticoagulation Continue metoprolol ?? 6. DVT prophylaxis: Patient is on apixaban ?? 6. ??CODE STATUS: Full code Discussed with patient at bedside ?? Patient seen 07/12/2022 Histories Allergies Allergies ?(Active and Proposed Allergies Only) Silvadene? (Severity: Unknown severity, Onset: Unknown) ?Reactions: unsure, skin alicea ? Past Medical History/Problem List Afib Cataract Chronic diastolic congestive heart failure Chronic obstructive lung disease COVID-19 Diabetes mellitus type 2 Hypertensive disorder Morbid obesity Obesity Paraparesis of both lower limbs Postmenopausal bleeding Severe obesity Neurogenic bladder with chronic Rai catheter ? Social History Patient lives alone Non-smoker Denies alcohol ? Family History Negative for CAD ? Medications Home Medications Albuterol (albuterol 0.083% inhalation solution)?3?Milliliter?2.5?Milligram?Neb?Every 6 hours?as needed?as needed for wheezing Albuterol/Ipratropium (albuterol-ipratropium 3 mg-0.5 mg/3 ml inhalation solution)?BAND Nebulizer?4 times a day?as needed?Wheezing/Shortness of Breath apixaban (Eliquis 5 mg oral tablet)?1?tab(s)?5?Milligram?By Mouth?2 times a day Aspirin (Aspirin Low Dose 81 mg oral delayed release tablet)?1?tab(s)?81?Milligram?By Mouth?Daily Ergocalciferol (Vitamin D2 50,000 intl units (1.25 mg) oral capsule)?1?capsule?50,000?International Unit?By Mouth?Every 7 days Fluticasone (Flovent Diskus 100 mcg/inh inhalation powder)?1?puff(s)?Inhalation?Daily Furosemide (Lasix 80 mg oral tablet)?80?Milligram?1?tablet?By Mouth?2 [...] mg oral tablet)?1?tab(s)?50?Milligram?By Mouth?2 times a day Nitrofurantoin (nitrofurantoin macrocrystals-monohydrate 100 mg oral capsule)?1?capsule?100?Milligram?By Mouth?2 times a day?for 7?Days Simvastatin (simvastatin 40 mg oral tablet)?40?Milligram?1?tablet?By Mouth?Daily at bedtime ? Results Recent Labs BLOOD COUNT & DIFF WBC 8.4 k/mm3 ()?? 07/11/2022 23:22 RBC 4.76 m/mm3 ()?? 07/11/2022 23:22 Hgb 13.4 Gm/dL ()?? 07/11/2022 23:22 Hct 42.0 % ()?? 07/11/2022 23:22 MCV 88.2 femtoliters ()?? 07/11/2022 23:22 MCH 28.2 pg ()?? 07/11/2022 23:22 MCHC 31.9 g/dL (Low)?? 07/11/2022 23:22 Platelet Count 170 k/mm3 ()?? 07/11/2022 23:22 RDW-SD 46.4 femtoliters ()?? 07/11/2022 23:22 MPV 12.2 femtoliters ()?? 07/11/2022 23:22 Nucleated RBC (Automated) 0.0 #/100 WBC'S ()?? 07/11/2022 23:22 Abs. NRBC 0.0 k/mm3 ()?? 07/11/2022 23:22 Abs. Neut 5.4 k/mm3 ()?? 07/11/2022 23:22 Abs. Lymph 1.8 k/mm3 ()?? 07/11/2022 23:22 Abs. [place] 0.8 k/mm3 ()?? 07/11/2022 23:22 Abs. Eo 0.3 k/mm3 ()?? 07/11/2022 23:22 Abs. Baso 0.0 k/mm3 ()?? 07/11/2022 23:22 Neut % 64.9 % ()?? 07/11/2022 23:22 Lymph % 21.4 % ()?? 07/11/2022 23:22 [place] % 9.5 % ()?? 07/11/2022 23:22 Eos % 3.6 % ()?? 07/11/2022 23:22 Baso % 0.2 % ()?? 07/11/2022 23:22 Imm Gran 0.4 % ()?? 07/11/2022 23:22 Abs. Imm Gran 0.0 k/mm3 ()?? 07/11/2022 23:22 ?? CARDIAC Nt-Probnp 245 pg/mL (High)?? 07/11/2022 23:22 ?? CHEM GENERAL Sodium 133 mmol/L ()?? 07/11/2022 23:22 Potassium 4.8 mmol/L ()?? 07/11/2022 23:22 Chloride 92 mmol/L (Low)?? 07/11/2022 23:22 Bicarbonate Level 31 mmol/L (High)?? 07/11/2022 23:22 Anion Gap 10 ()?? 07/11/2022 23:22 Glucose Level 314 mg/dL (High)?? 07/11/2022 23:22 BUN 24 mg/dL (High)?? 07/11/2022 23:22 Creatinine-Blood 0.8 mg/dL ()?? 07/11/2022 23:22 Estimated GFR Creatinine 77 ML/MIN/1.73 M2 ()?? 07/11/2022 23:22 Calcium 9.1 mg/dL ()?? 07/11/2022 23:22 Protein, Total 6.4 Gm/dL ()?? 07/11/2022 23:22 Albumin 3.8 Gm/dL ()?? 07/11/2022 23:22 AG Ratio 1.5 ()?? 07/11/2022 23:22 Alkaline Phosphatase 186 units/L (High)?? 07/11/2022 23:22 AST (SGOT) 37 units/L (High)?? 07/11/2022 23:22 ALT (SGPT) 30 units/L ()?? 07/11/2022 23:22 Bilirubin, Total 0.3 mg/dL ()?? 07/11/2022 23:22 ?? HEME OTHER Hold Blue Top SPECIMEN DISCARDED AFTER 4 HOURS. ()?? 07/11/2022 23:22 ?? MISC. CHEMISTRY Hold Green Top SPECIMEN DISCARDED AFTER 1 WEEK ()?? 07/11/2022 23:22 ?? VIROLOGY Influenza A PCR NEGATIVE ()?? 07/12/2022 01:01 Influenza B PCR NEGATIVE ()?? 07/12/2022 01:01 RSV PCR NEGATIVE ()?? 07/12/2022 01:01 COVID-19 by RT-PCR NEGATIVE ()?? 07/11/2022 20:58 COVID-19 PCR Specimen Source NASAL ()?? 07/12/2022 01:01 COVID-19 PCR Result NEGATIVE ()?? 07/12/2022 01:01 ? Hospital Progress note * Sabrina DHALIWAL, Jenelle: MODIFY Jenelle Bennett NP: MODIFY, SIGN Jenelle Bennett NP: SIGN, SIGN, VERIFY Event Display: Progress Note Hospital Authored Date: Patient: VIDHYA ADAM Age: 71 years Sex: Female : 1950 Associated Diagnoses: None Author: Connor DHAILWAL, Karina GARCIA consulted for discharge recs for 71 year old female who will be discharged home on prednisone in the setting of elevated blood sugars. Over the last 24 hours patient's blood sugars have ranged from 221-457 on a regimen on Lantus 64 units daily and Lispro sliding scale 3:150 + 3:50. Fasting blood sugar this morning 221. Patient can be discharged with the following insulin dosing for hyperglycemia in the setting of steroid use: - increase Lantus to 70 units daily -increase Lispro sliding scale to 5:150 + 2:50 Please advise patient to resume home insulin regimen once steroid course has been completed. Discharge planning: Resume home metformin and previous home insulin dosing. Close follow up with PCP within 1-2 weeks of discharged. BIDS will sign off, if discharge is delayed and/or canceled reach out and we can continue to assist. * Eve Masters RN: MODIFY, SIGN, PERFORM, SIGN, VERIFY Event Display: Progress Note Hospital Authored Date: Patient: VIDHYA ADAM Age: 71 years Sex: Female : 1950 Associated Diagnoses: None Author: Eve Masters RN Findings Evaluation E- Patient is alert and oriented x4, bed in lowest position, will call bain within reach, vss and +bs. Patient maintained on oxygen via nasal cannula at 2 liters, patient denies shortness of breath and pain. No respiratory distress or discomfort noted, patient has rai cathere for neurogenic bladder, order in place, rai secured to patient, rai cathere belowe bladder and erika care performed. All due medications administered without any adverse reactions and all due care being rendered.. Discharge Information Case Management Discharge Plan : Case Management Discharge Plan Data 07/10/2022 17:54 EST Discharge Level of Care at Discharge Home/Shelter/Foster Care * Tamanna Maxwell MD: PERFORM, SIGN, VERIFY Event Display: Progress Note Hospital Authored Date: Patient: VIDHYA ADAM Age: 71 years Sex: Female : 1950 Associated Diagnoses: None Author: Tamanna Maxwell MD Patient seen today. She continues to complain of leaking urine. Spoke to the nurse, mentioned that the balloon could only contain 30 cc of saline (patient normally gets 45 cc). Reach out to urology, mention that nurses can inflate with 15 more cc, nurse was notified and it was done. We will monitor for any more leaking. Urine culture sent. Continues to be on levofloxacin Patient blood glucose was 459 most likely in the setting of steroid use. 60 g carb diet. Went up onsliding scale Most likely she will be discharged tomorrow Rest as updated in H&P Note * Tamanna Maxwell MD: MODIFY, MODIFY, MODIFY, PERFORM Event Display: Discharge/Transfer Note Hospital Authored Date: Patient: ??VIDHYA ADAM ? Age:??71 Years?Sex:??Female?:??1950?? Patient Information Discharge Location: [facility] Primary Care Physician: Cherise Hamm MD Admit Date/Time: 07/11/22 22:09 Discharge Disposition Discharge Disposition: Home with Home Health Discharge Diagnosis COPD exacerbation (J44.1) Cough (R05.9) Rai catheter problem (T83.9XXA) Sputum production (R05.8) ?? _ Discharge Medications Albuterol (albuterol CFC free [...] days Fluticasone (Flovent Diskus 100 mcg/inh inhalation powder)?1?puff(s)?100?Microgram?Inhalation?Daily Furosemide (Lasix 80 mg oral tablet)?80?Milligram?1?tablet?By Mouth?2 times a day?for 30?Days Gabapentin (gabapentin 300 mg oral capsule)?300?Milligram?1?capsule?By Mouth?2 times a day Insulin Glargine (Lantus Inj)?64?unit(s)?Subcutaneous Injection?Daily in AM Insulin Lispro (Humalog Kwik Pen 100 units/mL subcutaneous injection)?Subcutaneous Injection?3 times a day before meals?As directed per sliding scale. 0-8 units per patient. Levofloxacin (levoFLOXacin 750 mg oral tablet)?1?tab(s)?750?Milligram?By Mouth?Every 24 hours?for 5?Days Lisinopril (lisinopril 10 mg oral tablet)?10?Milligram?1?tablet?By Mouth?Daily Metformin (metFORMIN 850 mg oral tablet)?1?tab(s)?850?Milligram?By Mouth?2 times a day Metoprolol (Metoprolol Tartrate 50 mg oral tablet)?1?tab(s)?50?Milligram?By Mouth?2 times a day PredniSONE (predniSONE 20 mg oral tablet)?1?tab(s)?20?Milligram?By Mouth?Daily?for 2?Days Simvastatin (simvastatin 40 mg oral tablet)?40?Milligram?1?tablet?By Mouth?Daily at bedtime ? Medications Started PredniSONE (predniSONE 20 mg oral tablet)?1?tab(s)?20?Milligram?By Mouth?Daily?for 2?Days Levofloxacin (levoFLOXacin 750 mg oral tablet)?1?tab(s)?750?Milligram?By Mouth?Every 24 hours?for 5?Days Hospital Course ?71-year-old female??with a complicated past medical history is admitted with COPD exacerbation??and complicated UTI ?? Complicated UTI: As noted above she was seen in the ER??on 07/10??and the Rai catheter was changed, was discharged on nitrofurantoin comes again with rai leakage, ER inflated with 30CC again when she says she needs 45 cc. reached out to urology, said we can inflate with further 15CCs, nurse notified and it was done.?? will discharge her on 5 days of ??p.o. Kaya, to complete 7 days course Await urine culture results, can follow up with PCP outpatient follow up with [facility] ?? COPD/asthma exacerbation: Continue updraft scheduled and as needed will be discharged on 2 more days of prednisone, BIDS consulted for adjustment of insulin for 2 days, recommended to increase to Lantus 70 units daily. Also increase lispro sliding scale to 5 units for blood glucose of 150, and then increase by 2U for every 50U increase, three times a day before meal. PLEASE RESUME TO YOUR HOME INSULIN ONCE STEROID COURSE HAS BEEN COMPLETED Oxygen as needed RSV/COVID/flu negative refill given for albuterol and fluticasone inhaler ??Patient was previously prescribed with ANNABELLA, but never received one at home. Once patient discharged, annabella will call the daughter to deliver the IVAPS. Appreciate pulm rehab assistance ? As patient hemodynamically stable, no further leakage from rai catheter, not wheezing, she will be discharged back home. Patient and HCP??in agreement with the discharge planning, ? Later in the afternoon, when RAVEN spoke to the patient's daughter, apparently daughter had few medical questions. I called her 3 times, it goes to answer machine, and voice message is full. Objective Vital Signs?? Temperature: 97.4 DegF (07/13/22 05:00:00) Temperature Route: Oral (07/13/22 05:00:00) Pulse Rate: 70 bpm (07/13/22 05:00:00) Respiratory Rate: 16 br/min (07/13/22 08:46:00) Systolic Blood Pressure: 138 mm Hg (07/13/22 08:46:00) Diastolic Blood Pressure:??52 mm Hg??Low (07/13/22 08:46:00) Blood pressure sites: Arm, right (07/13/22 05:00:00) Mean Arterial Pressure: 92 mm Hg (07/12/22 18:13:00) Pulse Pressure: 88 mm Hg (07/12/22 18:13:00) Oxygen Saturation: 100 % (07/13/22 05:00:00) Liters per Minute: 2 L/min (07/13/22 05:00:00) Mode of Delivery (Oxygen): Nasal cannula (07/13/22 05:00:00) Early Warning Score: 3 (07/13/22 08:57:32) ? . Physical Exam Constitutional: Alert, in no distress. Mental Status: Oriented to person, place and time. Head: Normocephalic. Neck: Supple, Full range of motion. Respiratory: Clear to auscultation. No wheezing, rales or rhonchi. Cardiovascular: S1 S2 regular. No murmurs, rubs or gallops. Gastrointestinal: Abdomen soft, non-tender, non-distended. Normal bowel sounds. No pulsatile mass. No hepatosplenomegaly. Neurologic: Moves all extremities spontaneously. Sensation intact bilaterally. Musculoskeletal: No cyanosis or clubbing. No gross deformities. Normal range of motion. Psychiatric: Normal mood and affect Pending Results Add On Lab Order ordered on 07/12/2022 Urine Culture ordered on 07/12/2022 Urine Culture ordered on 07/10/2022 Follow-Up Appointments Added Follow Up ?Time Frame ?Comments [facility] Urology?2 to 3 weeks Cherise Hamm MD?1 to 2 weeks Patient Instructions Please follow up with PCP for final urine culture. Also follow up with urology outpatient You are being discharged on 2 days of prednisone and 5 days of levofloxacin. ??Please take Lantus 70 units daily. Also increase lispro sliding scale to 5 units for blood glucose of 150, and then increase by 2U for every 50U increase, three times a day before meal. PLEASE RESUME TO YOUR HOME INSULIN ONCE STEROID COURSE HAS BEEN COMPLETED ?? [employer] will call you/your daughter to deliver IVAPs. Home Health Face to Face *Denotes mandatory ruiz ?? *I certify that this patient is under my care and that I or an allowed non- physician working with me had a face to face encounter with the patient on this date:??07/13/2022 12:39 ?? *The encounter with the patient was in whole, or in part, for the following medical condition, which is the primary diagnosis(es) for home health care:??COPD exacerbation (J44.1) Cough (R05.9) Rai catheter problem (T83.9XXA) Sputum production (R05.8) ? *Select the indications for the discipline/s that are being arranged for this patient. Nursing (select all that apply): [_] None [X] Medication management (reconciliation, teaching)?? [_] Chronic disease management?? [_] Wound care and treatment?? [_] Home safety evaluation [_] Administer SQ/IM/IV medications?? [_] Cath care?? [_] Drain care?? [_] Trach or GT care?? Other _ Occupation Therapy (select all that apply): [_] None [X] ADL Management [X] Fall prevention training [X] Energy conservation [_] Cognitive training Other _ Physical Therapy (select all that apply): [_] None [X] Functional mobility training [X] Home exercise program to strengthen [X] Increase ROM?? [_] Falls prevention training [_] Home maintenance program for chronic disease Other _ Speech Therapy (select all that apply): [X] None [_] Swallow evaluation and training [_] Speech and language training [_] Cognitive training to process, organize, and/or recall information Other _ ? *Homebound due to (select all that apply): [_] Inability to leave home without assistance/supervision [_] Inability to ambulate without assistance [_] Pain [X] Decreased strength and endurance [_] Unsteady gait [_] Severe SOB and fatigue [_] Impaired transfers [_] Inability to negotiate stairs [_] Limited weight bearing [_] Mental status change? *Physician Signature:??Tamanna Maxwell ?? *By signing this, I certify that I have personally evaluated the patient and agree with the findings and recommendations as documented above. ? thFTF 45??minutes spent on discharge ?? The note was dictated by using dragon. All grammatical and typographical errors were corrected to the best of my knowledge. Please do not hesitate to contact me with any questions. ?? Tamanna Maxwell MD Pager: [phone] ?? * Cecille Larson RN, V: PERFORM, SIGN, VERIFY Event Display: Case Management Discharge Plan Authored Date: [id number] Patient: VIDHYA ADAM Age: 71 years Sex: Female : 1950 Associated Diagnoses: None Author: Cecille Larson RN, V Discharge Plan Case Management Discharge Plan : Case Management Discharge Plan Data 07/13/2022 15:58 EST Discharge Level of Care at Discharge Homehealth/VNA Discharge VNA/Hospice/Home Care [facility] [place] Discharge Medical Equipment [employer] [facility] [employer] Discharge Transportation Arranged [facility] [address] [place] [address] Discharge Arranged Transport Date/Time 07/13/2022 18:00 Mode of Transportation Arranged Ambulance Name of Agency #1 [facility] [place] Agency Range Operator #1 Patricio Angel, clinical cable supervisor, [facility] Service Categories #1 Occupational Therapy, Group Home Service Comments #1 [facility] [place] will provide you with home long-term visits for posthospitalization pulmonary assessment, intermittent Rai catheter changes, & occupational therapy. The agency will contact you directly to schedule your first home visit. Name of Agency #2 [facility] Range Operator #2 Annabella Luong liaison, Service Categories #2 CPAP unit Service Comments #2 Annabella, your current home oxygen provider, has been contacted by your [facility] pulmonary clinician Morenita Mejía to arrange delivery of a home CPAP/IVAPs unit. The agency will contact you directly to arrange IVAPS delivery timing & training. * Vernon Hernandez RN: PERFORM Event Display: Patient Education/Instruction Authored Date: [id number] Inpatient Adult Discharge Instructions [address] [address] Name: VIDHYA ADAM : 1950 Visit: 07/11/2022 22:09:00 Current Date: 07/13/2022 17:44 Account: [id number] Inpatient Adult Discharge Instructions We would like [...] and their families. Surveys are administered by [employer] ?? If further treatment with your primary care physician or another doctor is recommended, it is important for you to keep the appointment. Call your primary care physician or return to the Emergency Department immediately if your condition worsens, fails to improve, or new symptoms develop. If you need to find a doctor, you can call [facility] DailyLook Link for a referral at [phone] or toll free at [phone] ([phone]) or log in to [email or web address].. ?? You can view and manage your care through the patient portal or by using a health care shaneka of your choosing. Dojo is a website that allows you to securely view your medical information including your hospital discharge summary, office visit summaries, medications and follow-up visits. You can also request appointments, renew medications, and request access to your medical information using a health care shaneka of your choosing, or just ask a question. You can enroll at [email or web address] or register during your next office visit. You have been discharged from [facility], Patient Care Unit: S64. If you have any questions regarding these instructions after you leave, please call us and we will be happy to assist you. [facility] Your Care Team Attending Physician Tamanna Maxwell MD Discharging Providers Tamanna Maxwell MD Reason for Admission coming from home, dx UTI, catheter changed here yesterday, has been leaking, also c/o SOB (chronic), hx COPD & sleep apnea Your Diagnosis COPD exacerbation Rai catheter problem Cough Sputum production Tests Performed Below is a partial list of the tests performed during your hospitalization. You may have had other tests and procedures not included in this list. Please discuss all test results with your provider. BUN CBC CBC w/ Differential Comprehensive Metabolic Panel COVID-19 (Novel Coronavirus), Rapid PCR COVID-19, RSV, and Flu A/B, Rapid PCR Creatinine GLUCOSE POC HOLD BLUE TUBE HOLD GREEN TUBE Lytes ProBNP XR Chest Portable Primary Care Provider Cherise Hamm MD Advance Directive Health Care Proxy on File Yes - Health Care Proxy Yes - MOLST No qualifying data available. Discharge Vitals Temperature: 98.2 DegF Height: 168 cm Pulse Rate: 87 bpm Weight: 120 kg Respiratory Rate: 18 br/min Body Mass Index:??42.52 kg/m2??Critical Systolic Blood Pressure:??142 mm Hg??High Body surface area: 2.37 Diastolic Blood Pressure: 82 mm Hg ?? Oxygen Saturation: 96 % ?? Studies Pending All tests and labs ordered during this hospital stay have been completed unless listed below. Please discuss all pending results with your provider listed above in these instructions. ?? Add On Lab Order (Lab Add On Order) Urine Culture What to do next Instructions From Your Doctor Please follow up with PCP for final urine culture. Also follow up with urology outpatient You are being discharged on 2 days of prednisone and 5 days of levofloxacin. ??Please take Lantus 70 units daily. Also increase lispro sliding scale to 5 units for blood glucose of 150, and then increase by 2U for every 50U increase, three times a day before meal. PLEASE RESUME TO YOUR HOME INSULIN ONCE STEROID COURSE HAS BEEN COMPLETED ?? Annabella will call you/your daughter to deliver IVAPs. Discharge Orders You Need to Schedule the Following Appointments Follow Up with??[facility] Urology When??Within 2 to 3 weeks Where: [address] [place] [address]- Follow Up with??Hansel GONZALEZ , Cherise Bolden When??Within 1 to 2 weeks Where: [address] [place] [address]- Discharge Medications KIAVIDHYA :1950 Visit Date:07/11/2022 Medications: Please continue your medications until treatment is completed or stopped by your provider. Medications not listed below should be discontinued. Discuss any questions related to medications with your provider. What How Much When Instructions Next Dose New Levofloxacin (levoFLOXacin 750 mg oral tablet) 1 tab(s) Oral Every 24 hours Duration: 5 Days Pickup at [place] [address] 1/5 AM New PredniSONE (predniSONE 20 mg oral tablet) 1 tab(s) Oral Daily Duration: 2 Days Pickup at [place] [address] 1/5 AM Changed Albuterol (albuterol CFC free 90 mcg/ inh inhalation aerosol) 1 puff(s) Inhalation 4 times a day as needed for as needed for wheezing Pickup at [place] [address] As Needed Changed Albuterol/ Ipratropium (albuterol-ipratropium 3 mg-0.5 mg/ 3 ml inhalation solution) 3 Milliliter BAND Nebulizer 4 times a day as needed for Wheezing/Shortness of Breath Pickup at [place] [address] As Needed Changed Fluticasone (Flovent Diskus 100 mcg/ inh inhalation powder) 1 puff(s) Inhalation Twice a day Pickup at [facility] 3 /4 PM Unchanged apixaban (Eliquis 5 mg oral tablet) 1 tab(s) Oral Twice a day /4 PM Unchanged Aspirin (Aspirin Low Dose 81 mg oral delayed release tablet) 1 tab(s) Oral Daily 1/5 AM Unchanged Ergocalciferol (Vitamin D2 50,000 intl units (1.25 mg) oral capsule) 1 capsule Oral Every 7 days Resume Unchanged Furosemide (Lasix 80 mg oral tablet) 1 tab(s) Oral Twice a day Duration: 30 Days 1/5 AM Unchanged Gabapentin (gabapentin 300 mg oral capsule) 1 capsule Oral Twice a day / PM Unchanged Insulin Glargine (Lantus Inj) 64 unit(s) Subcutaneous Injection Daily in the morning 5 AM Unchanged Insulin Lispro (Humalog Kwik Pen 100 units/ mL subcutaneous injection) Subcutaneous Injection 3 times a day before meals As directed per sliding scale. 0-8 units per patient. ?? Resume-- 5 AM Unchanged Lisinopril (lisinopril 10 mg oral tablet) 1 tab(s) Oral Daily /5 AM Unchanged Metformin (metFORMIN 850 mg oral tablet) 1 tab(s) Oral Twice a day /4 PM Unchanged Metoprolol (Metoprolol Tartrate 50 mg oral tablet) 1 tab(s) Oral Twice a day /4 PM Unchanged Simvastatin (simvastatin 40 mg oral tablet) 1 tab(s) Oral Daily at Bedtime Resume Pharmacy Information [facility] 3: [address] [place], [place] [id number] [phone] ?? What How Much When Comments Stop Taking Amoxicillin-Clavulanate (Augmentin 500 mg-125 mg oral tablet) 1 tab(s) Oral Every 12 hours Duration: 7 Days Stop Taking Nitrofurantoin (nitrofurantoin macrocrystals-monohydrate 100 mg oral capsule) 1 capsule Oral Twice a day Duration: 7 Days Test Results Below is a partial list of the most recent Laboratory test results done prior to this discharge. You may have had other tests and procedures not included in this list. Please discuss all test resultswith your provider. BUN (07/13/2022) ???BUN - 29 mg/dL CBC (07/13/2022) ???WBC - 8.9 k/mm3???RBC - 4.62 m/mm3???Hgb - 13.1 Gm/dL???Hct - 40.5 %???MCV - 87.7 femtoliters???MCH - 28.4 pg???MCHC - 32.3 g/dL???Platelet Count - 193 k/mm3???RDW-SD - 46.9 femtoliters???MPV - 12.2 femtoliters???Nucleated RBC (Automated) - 0.0 #/100 WBC'S???Abs. NRBC - 0.0 k/mm3 CBC w/ Differential (07/11/2022) ???WBC - 8.4 k/mm3???RBC - 4.76 m/mm3???Hgb - 13.4 Gm/dL???Hct - 42.0 %???MCV - 88.2 femtoliters???MCH - 28.2 pg???MCHC - 31.9 g/dL???Platelet Count - 170 k/mm3???RDW-SD - 46.4 femtoliters???MPV - 12.2 femtoliters???Nucleated RBC (Automated) - 0.0 #/100 WBC'S???Abs. NRBC - 0.0 k/mm3???Abs. Neut - 5.4 k/mm3???Abs. Lymph - 1.8 k/mm3???Abs. [place] - 0.8 k/mm3???Abs. Eo - 0.3 k/mm3???Abs. Baso - 0.0 k/mm3???Neut % - 64.9 %???Lymph % - 21.4 %???[place] % - 9.5 %???Eos % - 3.6 %???Baso % - 0.2 %???Imm Gran - 0.4 %???Abs. Imm Gran - 0.0 k/mm3 Comprehensive Metabolic Panel (07/11/2022) ???Sodium - 133 mmol/L???Potassium - 4.8 mmol/L???Chloride - 92 mmol/L???Bicarbonate Level - 31 mmol/L???Anion Gap - 10???Glucose Level - 314 mg/dL???BUN - 24 mg/dL???Creatinine-Blood - 0.8 mg/dL???Estimated GFR Creatinine - 77 ML/MIN/1.73 M2???Calcium - 9.1 mg/dL???Protein, Total - 6.4 Gm/dL???Albu min - 3.8 Gm/dL???AG Ratio - 1.5???Alkaline Phosphatase - 186 units/L???AST (SGOT) - 37 units/L???ALT (SGPT) - 30 units/L???Bilirubin, Total - 0.3 mg/dL COVID-19 (Novel Coronavirus), Rapid PCR (07/11/2022) ???COVID-19 by RT-PCR - NEGATIVE COVID-19, RSV, and Flu A/B, Rapid PCR (07/12/2022) ???Influenza A PCR - NEGATIVE???Influenza B PCR - NEGATIVE???RSV PCR - NEGATIVE???COVID-19 PCR Specimen Source - NASAL???COVID-19 PCR Result - NEGATIVE Creatinine (07/13/2022) ???Creatinine-Blood - 0.6 mg/dL???Estimated GFR Creatinine - 96 ML/MIN/1.73 M2 GLUCOSE POC (07/13/2022) ???Glucose, POC - 279 mg/dL HOLD BLUE TUBE (07/11/2022) ???Hold Blue Top - SPECIMEN DISCARDED AFTER 4 HOURS. HOLD GREEN TUBE (07/11/2022) ???Hold Green Top - SPECIMEN DISCARDED AFTER 1 WEEK Lytes (07/13/2022) ???Sodium - 131 mmol/L???Potassium - 3.7 mmol/L???Chloride - 89 mmol/L???Bicarbonate Level - 31 mmol/L???Anion Gap - 11 ProBNP (07/11/2022) ???Nt-Probnp - 245 pg/mL Immunizations This Visit Not Given Vaccine Commentsinfluenza virus vaccine, inactivated Patient Refuses Allergies (NKA means No Known Allergies) Silvadene??(skin [...] Educational Leaflet Providered with your Discharge Instructions. Valuables and Belongings I fully understand and agree [facility] all my [...] patient Date for Pt to Sign Valuables/Belongings: 07/12/22 17:42:00 ?? Other Discharge Information ? Case Management Discharge Plan?? Discharge Plan?? Discharge Agency Information?? Discharge Level of Care at Discharge: Homehealth/VNA Name of Agency #1: [facility] [place] Discharge Rx Program: Discharge Prescription Program Agency Range Operator #1: Patricio Angel, clinical cable supervisor, [facility] Discharge Transportation Arranged: [facility] [address] [place] [address] ??[phone] Service Categories #1: Occupational Therapy, Group Home Mode of Transportation Arranged: Ambulance Service Comments #1: [facility] [place] will provide you with home long-term visits forposthospitalization pulmonary assessment, intermittent Rai catheter changes, & occupational therapy. The agency will contact you directly to schedule your first home visit. Discharge Arranged Transport Date/Time: 07/13/22 18:00:00 Name of Agency #2: [facility] Discharge VNA/Hospice/Home Care: [facility] [place] Agency Range Operator #2: Annabella Luong, Discharge Medical Equipment Companies: [facility] Service Categories #2: CPAP unit ?? Service Comments #2: Annabella, your current home oxygen provider, has been contacted by your [facility] pulmonary clinician Morenita Mejía to arrange delivery of a home CPAP/IVAPs unit. The agency will contact you directly to arrange IVAPS delivery timing & training. ?? Pulmonary Rehab Status?? Pulmonary Rehab Discharge Status?? Respiratory Rate: 18 br/min Discharge Medical Equipment Companies: [facility] ? Common Emergency Awareness Tips IS IT [...] are strongly encouraged to quit. Please call [facility] DailyLook Link at [phone] or [phone]) or log in to [email or web address] for referrals to smoking cessation programs. ?? The National Suicide Prevention Hotline is available 30/01 if you or someone you know needs to find a reason to keep living. By calling 3-679-956-[employer] [place] (1998) you'll be connected to a skilled, trained counselor at a crisis center in your area. INPATIENT DISCHARGE INSTRUCTIONS SIGNATURE PAGE VIDHYA ADAM Location:[facility] Registration Date and Time:07/11/2022 22:09 EST Primary Care Physician: Cherise Hamm MD, VIDHYA MELTON, have received the above patient education materials/instructions and have verbalized understanding. If ambulance or transport services are being used I further acknowledge being given a choice of service. ?? If you need to contact me, please call me at this number: . Patient/Combination Man Name: Patient/Combination Man Signature: Relationship to Patient: Witness Name/Signature: Date: Portable XR Chest Views * [facility] , CIS S: TRANSCRIBE Jordana GONZALEZ, Bubba S: VERIFY Event Display: Result: Authored Date: [id number] Chest Portable Reason: COPD; Clinical Question(s): Pleural Effusion COMPARISON: 04/30/2022 FINDINGS: LINES AND TUBES: None. LUNGS AND PLEURA: Low lung volumes with mild basilar atelectasis. Lungs are otherwise clear with no consolidation. No pleural effusion. No pneumothorax. HEART, MEDIASTINUM AND KOLTON: Heart is normal in size. Normal mediastinal and hilar contour. BONES AND SOFT TISSUES: No acute abnormality. IMPRESSION: No pleural fluid collection identified. WSN: [id number] Ordering Physician: Irma Cole Dictated By: Bubba Silveira MD Dictated Date/Time: 07/11/22 11:04 p Reviewed By: Bubba Silveira MD Signed By: Bubba Silveira MD Signed Date/Time: 07/11/22 11:04 pm Transcribed By: CSDaniel Transcribed Date/Time: 07/11/22 11:03 pm Patient Care team information Care Team Personnel Name: Vernon Estrella RN Position: [facility] RN Member Role: Primary Care Nurse Name: Tk Iqbal RN Position: [facility] RN Supv Member Role: Primary Care Nurse Name: Delaney De Los Santos RN Position: [facility] RN Member Role: Primary Care Nurse Name: Cande Kennedy RN Position: [facility] AMB Nurse Member Role: Primary Care Nurse Name: Batool Summers Position: [facility] RN Member Role: Primary Care Nurse Name: Stephani Wellington RN Position: [facility] RN Member Role: Primary Care Nurse Name: Yanira Trevizo Position: [facility] RN Member Role: Primary Care Nurse Name: Vasyl Catherine RN Position: [facility] RN Member Role: Primary Care Nurse Name: Eve Masters RN Position: [facility] RN Member Role: Primary Care Nurse Name: Jenelle Jay RN Position: [facility] RN Member Role: Primary Care Nurse Name: Elizabeth Barrios RN Position: [facility] RN Member Role: Primary Care Nurse Name: Jignesh Stoner RN Position: [facility] RN Member Role: Primary Care Nurse Name: Cherise Hamm MD Position: [facility] Outreach Member Role: PCP Address: Address: [address] [place] [address]- Name: Chyna Aguilar RN Position: [facility] RN Member Role: Primary Care Nurse Address: Address: [address] [place] [address]- Name: John Guaman RN Position: [facility] RN Member Role: Primary Care Nurse Name: Ziyad SPRINGER Attending Position: [facility] ED Medicine MD Name: Live Castro RN Position: [facility] ED RN W/OE and Tasks Member Role: Patient Care Provider Name: Yordan Berger Position: [facility] ED TA [facility] Name: Meeta Mendez DO Position: [facility] Resident Member Role: ED Resident Address: Address: [address] [place] [address] [place] [address]- [place] Care Team Related Persons Name: STEPAHNI ADAM Address: home [address] [place] [address] Name: GEETHA NORMAN Address: [place] [address]
--- OUTSIDE RECORDS SUMMARY | 2024-01-06 09:18 | XMS_ITS | Continuity of Care Document ---
Author Organization [facility] Address [address] [place] [address]- Care Team Providers Care Activities Attendant Name Role Phone Hansel GONZALEZ, Cherise Bolden Primary Care Physician Encounter [facility] Date(s): 12/28/22 - 01/27/23 [facility] [address] [place], [place] [address] Allergies, Adverse Reactions, Alerts Substance Reaction Severity [...] 2 Refills, Maintenance, 01/08/23 12:40:00 EDT, Solution, [facility]/pharmacy #[id number], ICD 10 - J45.901, [...] 3 Refills, Maintenance, 11/01/22 11:09:00 EDT, Powder, [facility]/pharmacy #[id number], Partial fill upon patient request if the prescription is for a schedule II opioid drug., 1 puffs Inhalation Daily, 167.64, cm, 11/01/22 7... Start Date: 11/01/22 Status: Ordered docusate-senna 50 mg-187 mg oral tablet 2 tablet, By Mouth, Daily at bedtime, PRN Constipation, for 30 days, # 60 tablet, 0 Refills, Acute 02/12/23 11:53:00 EDT, 01/13/23 11:53:00 EDT, Tablet, [facility]/pharmacy #[id number], Partial fill upon patient [...] 0 Refills, Maintenance, 08/01/22 11:21:00 EST, Solution, [facility]/pharmacy #[id number], Partial fill upon patient [...] 11/01/22 11:29:00 EDT, Route to Pharmacy Electronically, [facility]/pharmacy #[id number], Partial fill upon patient [...] Team Personnel Name: Alvaro Oliver RN Position: [facility] RN Member Role: Primary Care Nurse Name: Tala Curiel LPN Position: [facility] RN Member Role: Primary Care Nurse Name: Tk Iqbal RN Position: [facility] RN Member Role: Primary Care Nurse Name: Jovanny Stuart RN Position: [facility] RN Member Role: Primary Care Nurse Name: Delaney De Los Santos RN Position: [facility] SN RN Member Role: Primary Care Nurse Name: Michelle Ricketts Position: [facility] RN Member Role: Primary Care Nurse Name: Cande Kennedy RN Position: [facility] AMB Nurse Member Role: Primary Care Nurse Name: Batool Summers Position: [facility] RN Member Role: Primary Care Nurse Name: Lainey Walker LPN Position: [facility] RN Member Role: Primary Care Nurse Name: Yanira Trevizo Position: [facility] RN Member Role: Primary Care Nurse Name: Batool Cervantes RN Position: [facility] RN Member Role: Primary Care Nurse Name: Batsheva Bernard RN Position: [facility] RN Member Role: Primary Care Nurse Name: Fern Franklin LPN Position: [facility] RN Member Role: [...] Care Nurse Name: Kady Garcias RN Position: [facility] RN Member Role: Primary Care Nurse Name: Rosy Arriaza RN Position: [facility] RN Member Role: Primary Care Nurse Name: Cherise Hamm MD Position: [facility] Outreach Member Role: PCP Address: Address: [address] [place] [address]- Name: Chyna Aguilar RN Position: [facility] RN Member Role: Primary Care Nurse Address: Address: [address] [place] [address]- Name: John Guaman RN Position: [facility] RN Member Role: Primary Care Nurse Name: Rocio Andrade RN Position: [facility] RN Member Role: Primary Care Nurse Care Team Related Persons Name: STEPHANI ADAM Address: [address] [place] [address] Name: NATHEN LLOYD
--- OUTSIDE RECORDS SUMMARY | 2024-01-06 09:18 | XMS_ITS | Continuity of Care Document ---
Author Organization [facility] ter Address [address] [place] [address]- Care Team Providers Care Bods Developer Name Role Phone Cherise Hamm MD Primary Care Physician [phone] [facility] Date[facility]s): 07/10/22 - 07/10/[address] [address]- Encounter Diagnosis UTI (urinary tract infection)(Final) - 07/10/22 Abdominal pain(Final) - 07/10/22 Indwelling Molina catheter present(Final) - 07/10/22 Discharge Disposition: A-D/C Home Attending Physician: Alexander Alcocer MD Admitting Physician: Alexander Alcocer MD Referring Physician: Not on Staff, Referring [...] By Mouth, 2 times a day, for 7 days, # 14 capsule, 0 Refills, Acute 07/17/22 15:58:00 EST, 07/10/22 15:58:00 EST, Capsule, [facility]/pharmacy #[id number], Partial fill upon patient request ifthe prescription is for a schedule II opioid drug.,... Start Date: 07/10/22 Stop Date: 07/17/22 Status: Ordered simvastatin 40 mg oral tablet [...] Range]: 1 2 Oxygen Saturation [94-100 %] 95 % (07/10/22 3:58 PM) 94 % (07/10/22 12:24 PM) Pulse Rate [55-90 bpm] 59 bpm (07/10/22 3:58 PM) 60 bpm (07/10/22 12:24 PM) Blood Pressure [90-138/55-84 mm Hg] 163/ 88mm Hg *H* (07/10/22 3:58 PM) 156/86mm Hg *H* (07/10/22 12:24 PM) Respiratory Rate [16-30 br/min] 17 br/mi n (07/10/22 3:58 PM) 23 br/min (07/10/22 12:24 PM) Temperature [96.8-100.4 DegF] 98.3 DegF (07/10/22 12:24 PM) Mode of Delivery (Oxygen) Room air (07/10/22 3:58 PM) Room air (1/1/23 12:24 PM) Blood pressure sites Arm, left (07/10/22 3:58 PM) Arm, left (07/10/22 12:24 PM) Temperature Route Oral (07/10/22 12:24 PM) Social History Social History Type Response Smoking Status Former smoker; Tobac co user in household: No entered on: 01/17/17 Sex Note * Juan Damon MD: PERFORM Event Display: Patient Education Leaflets Authored Date: [id number] Urinary Tract Infections in Women ?? [id number] Urinary Tract Infections in Women Urinary tract infections (UTIs) are most often caused by bacteria. These bacteria enter the urinarytract. The bacteria may come from inside the body. Or they may travel from the skin outside the rectum or vagina into the urethra. Female anatomy makes it easy for bacteria from the bowel to enter a woman???s urinary tract. This is the most common source of UTI. This means women develop UTIs more often than men. Pain in or around the urinary tract is a common UTI symptom. Most UTIs are treated with antibiotics. These kill the bacteria. The length of time you need to take them depends on the type of infection. It may be as short as 3 days. If you have repeated UTIs, you may need a low-dose antibiotic for several months. Take antibiotics exactly as directed. Don???t stop taking them until all of the medicine is gone. If you stop taking the antibiotic too soon, the infection may not go away. You may also develop a resistance to the antibiotic. This can make it muchharder to treat in the future. Gender words are used here to talk about anatomy and health risk. Please use this information in a way that works best for you and your provider as you talk about your care. Home care The lifestyle changes below will help get rid of your UTI. They may also help prevent future UTIs: ??? Drink plenty of fluids. This includes water, juice, or other caffeine-free drinks. Fluids help flush bacteria out of your body. ??? Empty your bladder. Always empty your bladder when you feel the urge to pee. And always pee before going to sleep. Urine that stays in your bladder can lead to infection. Try to pee before and after sex as well. ??? Practice good personal hygiene. Wipe yourself from front to back after using the toilet. This helps keep bacteria from getting into the urethra. ???Use condoms during sex. These help prevent UTIs caused by sexually transmitted bacteria. Also don'tuse spermicides during sex. These can increase the risk for UTIs. Choose other forms of control instead. For women who tend to get UTIs after sex, a low dose of a preventive antibiotic may be used. Be sure to discuss this choice with your healthcare provider. ??? Try holistic supplements, such as cranberry tablets and D-mannose. These may help prevent UTIs. ??? Try topical vaginal estrogen.You can use this to help prevent UTIs if you have gone through menopause. ?? Follow-up care Follow up with your healthcare provider as directed. They may test to make sure the infection has cleared. If needed, more treatment may be started. ?? When to get medical advice Call your healthcare provider right away if any of the following occur: ??? Frequent urination ??? Pain or burning when passing urine ??? Fever of 100.4??F (38??C) or higher, or as directed by your healthcare provider ??? Urine looks dark, cloudy, or reddish in color. This may mean that blood is inthe urine. ??? Urine smells bad ??? Feeling pain even when not urinating ??? Tiredness ??? Pain in the belly (abdomen) area below the bellybutton, or in the back or side, below the ribs ??? Nausea orvomiting ??? Have a strong urge to urinate, but only a small amount of urine is passed ??? Uncomfortable pressure above the pubic bone ??? Feeling confused or very tired (in older adults) ?? Last Reviewed Date: 2022 ?? 7711-8273 [employer]. All rights reserved. This information is not intended as a substitute for professional medical care. Always follow your healthcare professional's instructions. ?? Patient Care team information Care Team Personnel Name: Vernon Estrella RN Position: S RN Member Role: Primary Care Nurse Name: Tk Iqbal RN Position: S RN Supv Member Role: Primary Care Nurse Name: Delaney De Los Santos RN Position: S RN Member Role: Primary [...] [place] Outreach Member Role: PCP Address: Address: [address] [place] [address]- [place] Name: Chyna Aguilar RN Position: [facility] RN Member Role: Primary Care Nurse Address: Address: [address] [place] [address]- [place] Name: John Guaman RN Position: [facility] RN Member Role: Primary Care Nurse Name: Janina Pineda Position: [facility] ED TA [facility] Name: Solange Schuler RN Position: [facility] ED RN W/OE and Tasks Member Role: Patient Care Provider Name: Alexander Alcocer MD Position: [facility] ED Medicine MD Member Role: Admitting Physician Address: Address: [address] [place] [address]- [place] Name: Juan Damon MD Position: [facility] Resident Member Role: ED Resident Address: Address: [address] [place] [address] [place] [address]- [place] Care Team Related Persons Name: KIA STEPHANI Address: home [address] [address] Name: GEETHA NORMAN Address: [place] [address]
--- OUTSIDE RECORDS SUMMARY | 2024-01-06 09:18 | XMS_ITS | Continuity of Care Document ---
Author Organization [facility] ter Address [address] [place] [address]- Care Team Providers Care Stencil Typist Name Role Phone Cherise Hamm MD Primary Care Physician [facility] Date(s): 03/06/22 - 03/06/[address] [address]- Encounter Diagnosis Molina catheter problem(Final) - 03/06/22 Dislodged Molina catheter(Final) - 03/06/22 Discharge Disposition: A-D/C Home Attending Physician: Mariana [...] 0 Refills, Maintenance, 11/22/21 9:22:00 EDT, Tablet, [facility]/pharmacy #[id number], Partial fill upon patient request [...] 0 Refills, Maintenance, 11/18/21 8:23:00 EDT, Nasal [place], [id number], Partial fill upon patient request if the prescription is for a schedule II opioid drug., 1 sprays Nares, Both 2 time... Start Date: 11/18/21 Status: Ordered Flovent Diskus 100 mcg/inh inhalation powder 1 puffs, Inhalation, Daily, # 1 Unknown, 1 Refills, Maintenance, 11/23/21 9:59:00 EDT, [facility]/pharmacy#[id number], 1 puffs Inhalation Daily, 168, cm, [...] [Reference Range]: 1 Oxygen Saturation [94-100 %] 94 % (03/06/22 1:42 PM) Pulse Rate [55-90 bpm] 57 bpm (03/06/22 1:42 PM) Blood Pressure [90-138/55-84 mm Hg] 140/ 56mm Hg *H* (03/06/22 1:42 PM) Respiratory Rate [16-30 br/min] 18 br/mi n (03/06/22 1:42 PM) Temperature [96.8-100.4 DegF] 97.7 DegF (03/06/22 1:42 PM) Mode of Delivery (Oxygen) Room air (03/06/22 1:42 PM) Blood pressure sites Arm, right (03/06/22 1:42 PM) Temperature Route Oral (03/06/22 1:42 PM) Social History Social History Type Response Smoking Status Former smoker; Tobac co user in household: No entered on: 01/17/17 Sex Care Team Personnel Name: Cherise Hamm MD Address: [address] [place] [address]
--- OUTSIDE RECORDS SUMMARY | 2024-01-06 09:18 | XMS_ITS | Continuity of Care Document ---
Author Organization [facility] ter Address [address] [place] [address]- Care Team Providers Care Honing Machine Try Out Setter Name Role Phone Cherise Hamm MD Primary Care Physician Encounter [facility] Date(s): 10/31/21 - 11/01/[address] [address]- Encounter Diagnosis Molina catheter problem(Final) - 11/01/21 Discharge Disposition: A-D/C Home Attending Physician: Soraya Copeland MD Admitting Physician: Soraya Copeland MD Referring Physician: Not on Staff, Referring [...] Refills, Soft Stop, 08/01/21 23:58:00 EST, Tablet,[id number], Partial fill upon patient request if the [...] Start Date: 06/30/21 Status: Ordered nystatin topical 915201 u/gm powder 1 application, Topically, 2 times [...] Range]: 1 2 Oxygen Saturation [94-100 %] 94 % (10/31/21 10:37 PM) 95 % (10/31/21 8:57 PM) Pulse Rate [55-90 bpm] 68 bpm (10/31/21 10:37 PM) 65 bpm (10/31/21 8:57 PM) Blood Pressure [90-138/55-84 mm Hg] 110/ 62mm Hg (10/31/21 10:37 PM) 107/58mm Hg (10/31/21 8:57 PM) Respiratory Rate [16-30 br/min] 18 br/mi n (10/31/21 10:37 PM) 16 br/min (10/31/21 8:57 PM) Temperature [96.8-100.4 DegF] 98 DegF (10/31/21 10:37 PM) 98.3 DegF (10/31/21 8:57 PM) Mode of Delivery (Oxygen) Room air (10/31/21 10:37 PM) Room air (10/31/21 8:57 PM) Temperature Route Oral (10/31/21 10:37 PM) Oral (10/31/21 8:57 PM) Social History Social History Type Response Smoking Status Former smoker; Tobac co user in household: No entered on: 01/17/17 Sex
--- OUTSIDE RECORDS SUMMARY | 2024-01-06 09:18 | XMS_ITS | Continuity of Care Document ---
Author Organization [facility] ter Address [address] [place] [address]- Care Team Providers Care Delivery Mgr Name Role Phone Cherise Hamm MD Primary Care Physician [phone] [facility] Date(s): 07/14/22 - 07/14/[address] [address]- Discharge Disposition: A-Error Chart/Home (ED Only) Attending Physician: Not on Staff, Attending MD [...] 0 Refills, Maintenance, 07/14/22 20:49:00 EST, Solution, [facility]/pharmacy #[id number], Partial fill upon patient request if the prescription is for a schedule II opioid drug., 168, cm, ... Start Date: 07/14/22 Status: Ordered albuterol CFC free 90 mcg/inh inhalation aerosol 1, puffs, Inhalation, 4 times a day, PRN, # 6.7 Gm, Refills 0, Tot. Refills 0, Maintenance, 07/13/22 12:42:00 EST, Aerosol, Route to Pharmacy Electronically, [id number], [facility], 168, cm, 07/12/22 18:17:00 ES... Start Date: 07/13/22 Status: Ordered albuterol-ipratropium 3 mg-0.5 mg/3 ml inhalation solution 3 mL, BAND Nebulizer, 4 times a day, PRN Wheezing/Shortness of Breath, # 90 mL, 0 Refills, Maintenance, 07/13/22 12:36:00 EST, Inhalation Solution, [facility], Partial fill upon patientrequest if [...] 0 Refills, Maintenance, 07/13/22 13:54:00 EST, Powder, [facility], Partial fill upon patient request [...] 07/18/22 9:14:00 EST, 07/13/22 9:14:00 EST, Tablet, [facility], Partial fill upon patient request if [...] 07/15/22 9:13:00 EST, 07/13/22 9:13:00 EST, Tablet, [facility], Partial fill upon patient request if [...] Team Personnel Name: Vernon Estrella RN Position: [facility] RN Member Role: Primary Care Nurse Name: Tk Iqbal RN Position: [facility] RN Supv Member Role: Primary Care Nurse Name: Delaney De Los Santos RN Position: [facility] RN Member Role: Primary Care Nurse Name: Cande Kennedy RN Position: [facility] AMB Nurse Member Role: Primary Care Nurse Name: Batool Summers Position: [facility] RN Member Role: Primary Care Nurse Name: Stephani Wellington RN Position: [facility] RN Member Role: Primary Care Nurse Name: Yanira Trevizo Position: [facility] RN Member Role: Primary Care Nurse Name: Vasyl Catherine RN Position: [facility] RN Member Role: Primary Care Nurse Name: Eve Masters RN Position: [facility] RN Member Role: Primary Care Nurse Name: Jenelle Jay RN Position: [facility] RN Member Role: Primary Care Nurse Name: Elizabeth Barrios RN Position: [facility] RN Member Role: Primary Care Nurse Name: Jignesh Stoner RN Position: [facility] RN Member Role: Primary Care Nurse Name: Cherise Hamm MD Position: [facility] Outreach Member Role: PCP Address: Address: [address] [place] [address]- Name: Chyna Aguilar RN Position: [facility] RN Member Role: Primary Care Nurse Address: Address: [address] [place] [address]- Name: John Guaman RN Position: [facility] RN Member Role: Primary Care Nurse Care Team Related Persons Name: STEPHANI ADAM Address: home [address] [place] [address] [address] [place] [address] Name: GEETHA NORMAN Address: [place] [address]
--- OUTSIDE RECORDS SUMMARY | 2024-01-06 09:18 | XMS_ITS | Continuity of Care Document ---
Author Organization [facility] ter Address [address] [place] [address]- Care Team Providers Care Arts Administrator Or Manager Name Role Phone Cherise Hamm MD Primary Care Physician [facility]counter [facility] Date(s): 11/25/22 - 11/25/[address] [address]- Encounter Diagnosis UTI (urinary tract infection)(Final) - 11/25/22 Discharge Disposition: A-D/C Home Attending Physician: Abby Huitron MD Admitting Physician: Abby Huitron MD Referring Physician: Not on Staff, Referring [...] 1 Refills, Maintenance, 11/01/22 11:22:00 EDT, Liquid, [facility]/pharmacy #[id number], Partial fill upon patient request if [...] capsule, 2 Refills, Maintenance, 11/14/22 17:09:00 EDT, [facility]/pharmacy #[id number], Partial fill upon patient request... Start [...] 11/30/22 3:36:00 EDT, 11/25/22 3:36:00 EDT, Tablet, [facility]/pharmacy #[id number], Partial fill upon patient request if [...] to oldest [Reference Range]: 1 2 Height 168 cm (11/25/22 6:47 AM) 168 cm (11/25/22 12:35 AM) Oxygen Saturation [94-100 %] 99 % (11/25/22 6:47 AM) 96 % (11/25/22 12:35 AM) Pulse Rate [55-90 bpm] 63 bpm (11/25/22 6:47 AM) 65 bpm (11/25/22 12:35 AM) Blood Pressure [90-138/55-84 mm Hg] 132/ 62mm Hg (11/25/22 6:47 AM) 126/52mm Hg (11/25/22 12:35 AM) Respiratory Rate [16-30 br/min] 16 br/mi n (11/25/22 6:47 AM) 17 br/min (11/25/22 12:35 AM) Temperature [96.8-100.4 DegF] 97.9 DegF (11/25/22 6:47 AM) 98.7 DegF (11/25/22 12:35 AM) Mode of Delivery (Oxygen) Room air (11/25/22 6:47 AM) Room air (11/25/22 12:35 AM) Blood pressure sites Arm, right (11/25/22 6:47 AM) Arm, right (11/25/22 12:35 AM) Temperature Route Oral (11/25/22 6:47 AM) Oral (11/25/22 12:35 AM) Social History Social History Type Response Smoking Status Former smoker; Tobac co user in household: No entered on: 01/17/17 Sex Patient Care team information Care Team Personnel Name: Alvaro Oliver RN Position: [facility] RN Member Role: Primary Care Nurse Name: Tk Iqbal RN Position: [facility] RN Member Role: Primary Care Nurse Name: Lachelle Daniels RN Position: [facility] RN Member Role: Primary Care Nurse Name: Jovanny Stuart RN Position: [facility] RN Member Role: Primary Care Nurse Name: Delaney De Los Santos RN Position: [facility] SN RN Member Role: Primary Care Nurse Name: Michelle Ricketts Position: [facility] RN Member Role: Primary Care Nurse Name: Jillian Mckeon RN Position: [facility] RN Member Role: Primary Care Nurse Name: Reymundo Perkins RN Position: [facility] RN Member Role: Primary Care Nurse Name: Cande Kennedy RN Position: [facility] AMB Nurse Member Role: Primary Care Nurse Name: Batool Summers Position: [facility] RN Member Role: Primary Care Nurse Name: Lainey Walker LPN Position: [facility] RN Member Role: Primary Care Nurse Name: Yanira Trevizo Position: [facility] RN Member Role: Primary Care Nurse Name: Batool Cervantes RN Position: [facility] RN Member Role: Primary Care Nurse Name: Rafael Hicks RN Position: [facility] RN Member Role: Primary Care Nurse Name: Batsheva Bernard RN Position: [facility] RN Member Role: Primary Care Nurse Name: Fern Franklin LPN Position: [facility] RN Member Role: Primary [...] Care Nurse Name: Kady Garcias RN Position: [facility] RN Member Role: Primary Care Nurse Name: Cherise Hamm MD Position: [facility] Outreach Member Role: PCP Address: Address: [address] [place] [address]- [place] Name: Chyna Aguilar RN Position: [facility] RN Member Role: Primary Care Nurse Address: Address: [address] [place] [address]- [place] Name: John Guaman RN Position: [facility] RN Member Role: Primary Care Nurse Name: Maria M Vance RN Position: [facility] RN Member Role: Primary Care Nurse Name: Cynthia Junior Position: [facility] Associate Professional Member Role: ED Physician Ceramic Products Sales Engineer Address: Address: [address] [place] [address]- [place] Name: Abby Huitron MD Position: [facility] ED Medicine MD Member Role: Admitting Physician Address: Address: [address] [place] [address]- [place] Name: Dayday Barillas Position: [facility] ED TA [facility] Care Team Related Persons Name: STEPHANI ADAM Address: home [address] [place] [address] [place] [address] Name: GEETHA NORMAN Address: [place] [address]
--- OUTSIDE RECORDS SUMMARY | 2024-01-06 09:18 | XMS_ITS | Continuity of Care Document ---
Author Organization [facility] Address [address] [place] [address]- Care Team Providers Care Passenger Car Conductor Name Role Phone Hansel GONZALEZ, Cherise Bolden Primary Care Physician [phone] [facility]counter [facility] Date(s): 01/05/23 - 02/04/23 [facility] [address] [place], [place] [address] Attending Physician: AdmtrSurya Admitting Physician: Admtr, Ar8 Referring Physician: Admtr, [...] 2 Refills, Maintenance, 01/08/23 12:40:00 EDT, Solution, [facility]/pharmacy #[id number], ICD 10 - J45.901, 16... [...] 3 Refills, Maintenance, 11/01/22 11:09:00 EDT, Powder, [facility]/pharmacy #[id number], Partial fill upon patient request if the prescription is for a schedule II opioid drug., 1 puffs Inhalation Daily, 167.64, cm, 11/01/22 7... Start Date: 11/01/22 Status: Ordered docusate-senna 50 mg-187 mg oral tablet 2 tablet, By Mouth, Daily at bedtime, PRN Constipation, for 30 days, # 60 tablet, 0 Refills, Acute 02/12/23 11:53:00 EDT, 01/13/23 11:53:00 EDT, Tablet, [facility]/pharmacy #[id number], Partial fill upon patient request [...] 0 Refills, Maintenance, 08/01/22 11:21:00 EST, Solution, [facility]/pharmacy #[id number], Partial fill upon patient request [...] 11/01/22 11:29:00 EDT, Route to Pharmacy Electronically, [facility]/pharmacy #[id number], Partial fill upon patient request [...] Team Personnel Name: Alvaro Oliver RN Position: [facility] RN Member Role: Primary Care Nurse Name: Tala Curiel LPN Position: [facility] RN Member Role: Primary Care Nurse Name: Tk Iqbal RN Position: [facility] RN Member Role: Primary Care Nurse Name: Jovanny Stuart RN Position: [facility] RN Member Role: Primary Care Nurse Name: Delaney De Los Santos RN Position: [facility] RN Member Role: Primary Care Nurse Name: Michelle Ricketts Position: [facility] RN Member Role: Primary Care Nurse Name: Cande Kennedy RN Position: [facility] [place] Nurse Member Role: Primary Care Nurse Name: Batool Summers Position: [facility] RN Member Role: Primary Care Nurse Name: Lainey Walker LPN Position: [facility] RN Member Role: Primary Care Nurse Name: Yanira Trevizo Position: [facility] RN Member Role: Primary Care Nurse Name: Batool Cervantes RN Position: [facility] RN Member Role: Primary Care Nurse Name: Batsheva Bernard RN Position: [facility] RN Member Role: Primary Care Nurse Name: Fern Franklin LPN Position: [facility] RN Member Role: Primary Care Nurse Name: Vasyl Catherine RN Position: [facility] RN Member Role: Primary Care Nurse Name: Eve Masters RN Position: [facility] RN Member Role: Primary Care Nurse Name: Elizabeth Barrios RN Position: S RN Member Role: Primary Care Nurse Name: Jignesh tSoner RN Position: S RN Member Role: Primary Care Nurse Name: Kady Garcias RN Position: S RN Member Role: Primary Care Nurse Name: Rosy Arriaza RN Position: S RN Member Role: Primary Care Nurse Name: Cherise Hamm MD Position: [facility] Outreach Member Role: PCP Address: Address: [address] [place] [address]- Name: Chyna Aguilar RN Position: [facility] RN Member Role: Primary Care Nurse Address: Address: [address] [place] [address]- Name: John Guaman RN Position: [facility] RN Member Role: Primary Care Nurse Name: Rocio Andrade RN Position: S RN Member Role: Primary Care Nurse Care Team Related Persons Name: STEPHANI ADAM Address: [address] [address] Name: NATHEN LLOYD
--- OUTSIDE RECORDS SUMMARY | 2024-01-06 09:19 | XMS_ITS | Continuity of Care Document ---
Author Organization [facility] ter Address [address] [place] [id number] Care Team Providers Care Wardrobe Coordinator Name Role Phone Hansel GONZALEZ, Cherise Bolden Primary Care Physician [place] [facility] [place](s): 09/24/22 - 10/06/[address] [id number] Encounter Diagnosis Rai catheter status(Final) - 09/24/22 UTI (urinary tract infection), bacterial(Final) - 09/24/22 Discharge Disposition: A-Transfer SNF Attending Physician: Carolin Villarreal MD Admitting Physician: Nichole Proctor MD Referring Physician: Not on Staff, Referring [...] 0 Refills, Maintenance, 08/01/22 11:20:00 EST, Solution, [facility]/pharmacy #[id number], Partial fill upon patient request if the prescription is for a schedule II opioid drug., 166, cm, 01... Start Date: 08/01/22 Status: Ordered albuterol CFC free 90 mcg/inh inhalation aerosol 1, puffs, Inhalation, 4 times a day, PRN, # 6.7 Gm, Refills 0, Tot. Refills 0, Maintenance, 08/01/22 11:20:00 EST, Aerosol, Route to Pharmacy Electronically, [id number], [facility]/pharmacy #[id number], 166, cm, 08/01/22 8:16:00 EST, [place]... Start Date: 08/01/22 Status: Ordered albuterol-ipratropium 3 mg-0.5 mg/3 ml inhalation solution 3 mL, BAND Nebulizer, 4 times a day, PRN Wheezing/Shortness of Breath, # 90 mL, 0 Refills, Maintenance, 07/13/22 12:36:00 EST, Inhalation Solution, [facility], Partial fill upon patientrequest if the [...] 0 Refills, Maintenance, 09/11/22 9:28:00 EST, Powder, [facility], Partial fill upon patient request if the prescription is for a schedule II opioid drug., 1 puffs Inhalation 2 times... Start Date: 09/11/22 Status: Ordered gabapentin 300 mg oral capsule 300 mg, Capsule, By Mouth, 10/05/22 21:00:00 EDT Start Date: 10/05/22 Stop Date: 10/05/22 Status: Completed gabapentin 300 mg oral capsule 300 mg, Capsule, By Mouth, 10/06/22 9:00:00 EDT Start Date: 10/06/22 Stop Date: 10/06/22 Status: Completed gabapentin 300 mg oral capsule [...] Start Date: 03/29/22 Status: Ordered Lantus Inj 0.38 mL = 38 units, Subcutaneous Injection, 2 times a day, 0 Refills, Maintenance, 10/06/22 10:28:00 EDT, Injection, [...] oral tablet 10 mg, Tablet, By Mouth, 10/06/22 9:00:00 EDT Start Date: 10/06/22 Stop Date: 10/06/22 Status: Completed metFORMIN 850 mg oral tablet 1 tablet = 850 mg, By Mouth, 2 times a day, 0 Refills, Maintenance, 03/16/22 1:18:00 EDT, Tablet, Partial fill upon patient request if the prescription is for a schedule II opioid drug. Start Date: 03/16/22 Status: Ordered methenamine hippurate 1 gm oral tablet 1 tablet = 1 Gm, By Mouth, 2 times a day, for 30 days, # 60 tablet, 0 Refills, Acute 11/05/22 10:32:00 EDT, 10/06/22 10:32:00 EDT, Tablet, Partial fill upon patient request if the prescription is fora schedule II opioid drug. Start Date: 10/06/22 Stop Date: 11/05/22 Status: Ordered metoprolol 50 mg oral tablet 50 mg, Tablet, By Mouth, 10/05/22 21:00:00 EDT Start Date: 10/05/22 Stop Date: 10/05/22 Status: Completed metoprolol 50 mg oral tablet 50 mg, Tablet, By Mouth, 10/06/22 9:00:00 EDT Start Date: 10/06/22 Stop Date: 10/06/22 Status: Completed Metoprolol Tartrate 50 mg oral [...] 0 Refills, Maintenance, 08/01/22 11:21:00 EST, Solution, [facility]/pharmacy #[id number], Partial fill upon patient request if the [...] Reports Name Date Urine Culture (URINE CULTURE) 09/23/22 Microbiology Reports TEST:Urine Culture STATUS:Auth (Verified) BODY SITE: SOURCE:URINE COLLECTED DATE/TIME:09/23/22 11:50 PM Urine Culture SPECIMEN DESCRIPTION : URINE SPECIAL REQUESTS : NONE CULTURE : Mixed bacterial carlito, indicative of urogenital contamination. REPORT STATUS : FINAL 09/26/2022 Vital Signs Most recent to oldest [Reference Range]: 1 2 3 Height 168 cm (10/06/22 7:57 AM) 168 cm (10/05/22 7:52 PM) 168 cm (10/05/22 8:35 AM) Weight 120.3 kg (09/24/22 9:02 PM) 120 kg (09/24/22 6:42 PM) 120 kg (09/24/22 3:21 PM) Oxygen Saturation [94-100 %] 98 % (10/06/22 7:57 AM) 96 % (10/05/22 7:52 PM) 96 % (10/05/22 8:35 AM) Pulse Rate [55-90 bpm] 52 bpm *L* (10/06/22 8:38 AM) 52 bpm *L* (10/06/22 7:57 AM) 67 bpm (10/05/22 10:14 PM) Body Mass Index [18.5-24.99 kg/m2] 42.62 kg/m2 *>HHI* (09/24/22 9:02 PM) 42.52 kg/m2 *>HHI* (09/24/22 6:42 PM) 42.52 kg/m2 *>HHI* (09/24/22 3:21 PM) Blood Pressure [90-138/55-84 mm Hg] 115/52mm Hg (10/06/22 8:38 AM) 115/50mm Hg (10/06/22 8:38 AM) 115/50mm Hg (10/06/22 7:57 AM) Respiratory Rate [16-30 br/min] 20 br/min (10/06/22 8:37 AM) 20 br/min (10/06/22 7:57 AM) 19 br/min (10/05/22 10:14 PM) Temperature [96.8-100.4 DegF] 97.4 DegF (10/06/22 7:57 AM) 98.0 DegF (10/05/22 7:52 PM) 97.8 DegF (10/05/22 8:35 AM) Liters per Minute 2 L/min (10/06/22 7:57 AM) 2 L/min (10/03/22 8:46 AM) 2 L/min (10/02/22 7:33 AM) Mode of Delivery (Oxygen) Nasal cannula (10/06/22 7:57 AM) Room air (10/05/22 7:52 PM) Room air (10/05/22 8:35 AM) Blood pressure sites Arm, right (10/06/22 7:57 AM) Arm, right (10/05/22 7:52 PM) Arm, right (10/05/22 8:35 AM) Temperature Route Oral (10/06/22 7:57 AM) Oral (10/05/22 7:52 PM) Oral (10/05/22 8:35 AM) Dry Weight 120.3 kg (09/24/22 9:02 PM) 120 kg (09/24/22 6:42 PM) 120 kg (09/24/22 3:21 PM) Social History Social History Type Response Smoking Status Former smoker; Tobac co user in household: No entered on: 01/17/17 Sex History and physical note * Darin Nielson MD: PERFORM, MODIFY Event Display: History and Physical Hospital Authored Date: Patient: ??ALEAH CONNOR ? Age:??72 Years?Sex:??Female?:??1950?? Chief Complaint/Reason for Consultation urning/pain around her urethra and also cloudy urine History of Present Illness Aleah Sterling is a 72-year-old woman with history of heart failure preserved EF, mild aortic stenosis, diabetes mellitus type 2, asthma/COPD on home oxygen 2 to 3 L, ERICKA on IVF, hypertension, hyperlipidemia, A-fib on Eliquis, neurogenic bladder with chronic indwelling Rai catheter, wheelchair- bound at the baseline who presented to hospital because of burning/pain around her urethra and also cloudy urine.?? Patient reports she was having some burning and pain around her urethra.?? She hasa chronic indwelling Rai catheter which gets changed every month.?? Patient reported it was changed about a month ago.?? Patient denied any abdominal pain nausea vomiting or fever.?? In the ED, patient hemodynamically stable.?? No fever.?? No leukocytosis.?? Urinalysis positive for leukocyte, WBCmore than 182, RBC 36.?? She was started on p.o. levofloxacin and admitted to medical floor for further management. Review of Systems Constitutional:??No weight loss, fever, chills, weakness or fatigue. Respiratory:??No shortness of breath, cough or sputum production. Cardiovascular:??No chest pain, chest pressure or chest discomfort. No palpitations or pedal edema. Gastrointestinal:??No anorexia, nausea, vomiting or diarrhea. No abdominal pain or blood in stool. Genitourinary:?has not during Rai catheter. Neurologic:??Lower extremity weakness present no headache, dizziness, syncope Musculoskeletal:??No muscle pain, back pain, joint pain or stiffness. Hematologic/Lymphatics:??No bleeding or bruising. Skin:??No rash or itching. Endocrine:??No reports of sweating. No cold or heat intolerance. No polyuria or polydipsia. Psychiatric:??No depression or anxiety. Objective Measurements?? Height: 168 cm (09/24/22) Weight: 120 kg (09/24/22) Dry Weight: 120 kg (09/24/22) Body Mass Index:??42.52 kg/m2??Critical (09/24/22) ? Vital Signs?? Temperature: 98 DegF (09/24/22 07:59:00) Temperature Route: Oral (09/24/22 07:59:00) Pulse Rate: 85 bpm (09/24/22 15:21:00) Respiratory Rate: 19 br/min (09/24/22 15:21:00) Systolic Blood Pressure:??142 mm Hg??High (09/24/22 15:21:00) Diastolic Blood Pressure:??45 mm Hg??Low (09/24/22 15:21:00) Blood pressure sites: Arm, right (09/24/22 15:21:00) Mean Arterial Pressure: 77 mm Hg (09/24/22 15:21:00) Pulse Pressure: 97 mm Hg (09/24/22 15:21:00) Oxygen Saturation: 99 % (09/24/22 15:21:00) Mode of Delivery (Oxygen): Room air (09/24/22 15:21:00) Early Warning Score: 1 (09/24/22 17:02:09) ? Physical Exam Constitutional: Alert, in no distress. Mental Status: Oriented to person, place and time. Head: Normocephalic. Neck: Supple, Full range of motion. Respiratory: Clear to auscultation. No wheezing, rales or rhonchi. Cardiovascular: S1 S2 regular. No murmurs, rubs or gallops. Gastrointestinal: Abdomen soft, non-tender, non-distended. Normal bowel sounds. No pulsatile mass. No hepatosplenomegaly. Genitourinary: Indwelling Rai catheter present Neurologic: Cranial nerves II-XII grossly intact. ??Upper extremity power 5/5. ??Lower extremity power??3???4/5 Skin: No rashes or lesions. No petechiae or purpura.?? Musculoskeletal: No cyanosis or clubbing. No gross deformities. Psychiatric: Normal mood and affect Assessment/Plan ?? . Aleah Connor is a 72-year-old woman with history of heart failure preserved EF, mild aortic stenosis, diabetes mellitus type 2, asthma/COPD on home oxygen 2 to 3 L, ERICKA on IVAPS, hypertension, hyperlipidemia, A-fib on Eliquis, neurogenic bladder with chronic indwelling Rai catheter, wheelchair-bound at the baseline who presented to hospital because of burning/pain around her urethra and also cloudy urine.?? Admitted to the hospital for possible urinary tract infection: ?? 1. ??Possible urinary tract infection: Chronic indwelling Rai catheter Neurogenic bladder: Patient reports she was having some burning and pain around her urethra.?? She has a chronic indwelling Rai catheter which gets changed every month.?? patient hemodynamically stable.?? No fever.?? No leukocytosis.?? Urinalysis positive for leukocyte, WBC more than 182, RBC 36.?? She is not septic. She was started on p.o. levofloxacin. Plan : Continue with the P.O. Levofloxacin Follow-Up Urine Culture. Rai Catheter to Be Changed.?She Has Rai Catheter and 26 [employer]??and Needs??45 Cc??in [place]. ?? Chronic medical issues: 1. Heart failure preserved EF: Patient looks euvolemic on exam. Continue with??p.o. Lasix. 2. Asthma/COPD on home oxygen:??Stable Continue oxygen Continue albuterol. Ordered?? Breo Ellipta here 3. ERICKA on iVAPS: IVAPS ordered 4. A-fib on Eliquis: Continue Eliquis. Continue metoprolol. 5. Hypertension: Continue lisinopril, continue??metoprolol. 6. Diabetes mellitus type 2: She takes Lantus 70 units in a.m., Trulicity and also on sliding scale. Plan: Started on Lantus??50 units in a.m.?? Continue POC monitoring and sliding scale ?? DVT prophylaxis: Patient already on Eliquis CODE STATUS: Full code ?? Patient wheelchair-bound??at baseline.?? She lives by herself and daughter??checks her frequently.?? Daughter went??aboard for few days for family emergency. ??Patient does have??home health aide??as well as she goes to??daycare.?? Case management consult for discharge plan. ? Histories Allergies Allergies ?(Active and Proposed [...] bleeding Severe obesity Shortness of breath ? Social History Alcohol Details:??Use: Never. Substance [...] Recent Labs BLOOD COUNT & DIFF WBC 8.7 k/mm3 ()?? 09/24/2022 00:06 RBC 5.28 m/mm3 ()?? 09/24/2022 00:06 Hgb 14.3 Gm/dL ()?? 09/24/2022 00:06 Hct 44.2 % ()?? 09/24/2022 00:06 MCV 83.7 femtoliters ()?? 09/24/2022 00:06 MCH 27.1 pg ()?? 09/24/2022 00:06 MCHC 32.4 g/dL (Low)?? 09/24/2022 00:06 Platelet Count 188 k/mm3 ()?? 09/24/2022 00:06 RDW-SD 48.9 femtoliters (High)?? 09/24/2022 00:06 MPV 11.1 femtoliters ()?? 09/24/2022 00:06 Nucleated RBC (Automated) 0.0 #/100 WBC'S ()?? 09/24/2022 00:06 Abs. NRBC 0.0 k/mm3 ()?? 09/24/2022 00:06 Abs. Neut 5.7 k/mm3 ()?? 09/24/2022 00:06 Abs. Lymph 1.7 k/mm3 ()?? 09/24/2022 00:06 Abs. [place] 1.0 k/mm3 (High)?? 09/24/2022 00:06 Abs. Eo 0.3 k/mm3 ()?? 09/24/2022 00:06 Abs. Baso 0.0 k/mm3 ()?? 09/24/2022 00:06 Neut % 65.4 % ()?? 09/24/2022 00:06 Lymph % 19.2 % ()?? 09/24/2022 00:06 [place] % 11.7 % (High)?? 09/24/2022 00:06 Eos % 3.2 % ()?? 09/24/2022 00:06 Baso % 0.2 % ()?? 09/24/2022 00:06 Imm Gran 0.3 % ()?? 09/24/2022 00:06 Abs. Imm Gran 0.0 k/mm3 ()?? 09/24/2022 00:06 ?? CHEM GENERAL Sodium 135 mmol/L ()?? 09/24/2022 00:06 Potassium 3.9 mmol/L ()?? 09/24/2022 00:06 Chloride 93 mmol/L (Low)?? 09/24/2022 00:06 Bicarbonate Level 32 mmol/L (High)?? 09/24/2022 00:06 Anion Gap 10 ()?? 09/24/2022 00:06 Glucose Level 181 mg/dL (High)?? 09/24/2022 00:06 Glucose, POC 319 mg/dL (High)?? 09/24/2022 17:00 BUN 12 mg/dL ()?? 09/24/2022 00:06 Creatinine-Blood 0.5 mg/dL ()?? 09/24/2022 00:06 Estimated GFR Creatinine 100 ML/MIN/1.73 M2 ()?? 09/24/2022 00:06 Calcium 8.9 mg/dL ()?? 09/24/2022 00:06 ?? HEME OTHER Hold Blue Top SPECIMEN DISCARDED AFTER 4 HOURS. ()?? 09/24/2022 00:06 ?? MISC. CHEMISTRY Hold Green Top SPECIMEN DISCARDED AFTER 1 WEEK ()?? 09/24/2022 00:06 ?? UA/URINALYSIS Appear/Color, Urine LIGHT YELLOW ()?? 09/23/2022 23:50 Specific [place], Urine 1.003 ()?? 09/23/2022 23:50 pH, Urine 7.0 ()?? 09/23/2022 23:50 Albumin, Urine 1+ (Abnormal)?? 09/23/2022 23:50 Glucose, Urine NEGATIVE ()?? 09/23/2022 23:50 Ketones, Urine NEGATIVE ()?? 09/23/2022 23:50 Bilirubin, Urine NEGATIVE ()?? 09/23/2022 23:50 Hemoglobin, Urine 3+ (Abnormal)?? 09/23/2022 23:50 Nitrite, Urine NEGATIVE ()?? 09/23/2022 23:50 Leukocyte, Urine 3+ (Abnormal)?? 09/23/2022 23:50 Urobilinogen NORMAL mg/dL ()?? 09/23/2022 23:50 WBC's, Urine >182 /HPF (High)?? 09/23/2022 23:50 RBC's, Urine 36 /HPF (High)?? 09/23/2022 23:50 Bacteria SLIGHT HPF (Abnormal)?? 09/23/2022 23:50 Squamous Epith <1 /HPF ()?? 09/23/2022 23:50 WBC Clumps MODERATE /HPF ()?? 09/23/2022 23:50 Hold Urine Culture Testing available 48 hours from time of collection. ()?? 09/23/2022 23:50 ?? VIROLOGY COVID-19 by RT-PCR NEGATIVE ()?? 09/24/2022 06:39 ? EKG study * Event Display: ECG 12-Lead Authored Date: Please click on pdf link to open report * Event Display: ECG 12-Lead Authored Date: Ventricular Rate: 60 BPM Atrial Rate: 60 BPM P-R Interval: 232 ms QRS Duration: 104 ms Q-T Interval: 448 ms QTC Calculation(Bazett): 448 ms P [place]: 46 degrees R [place]: -11 degrees T [place]: 65 degrees Sinus rhythm with 1st degree A-V block with Premature supraventricular complexes Minimal voltage criteria for LVH, may be normal variant Septal infarct , age undetermined Abnormal ECG When compared with ECG of 04-OCT-2022 06:03, Septal infarct is now Present Confirmed by ANTONINO LANGE MD ([id number]) on 10/05/2022 8:25:52 AM Ona: ANTONINO LANGE MD * Event Display: ECG 12-Lead Authored Date: Please click on pdf link to open report * Event Display: ECG 12-Lead Authored Date: Ventricular Rate: 43 BPM Atrial Rate: 53 BPM P-R Interval: 220 ms QRS Duration: 104 ms Q-T Interval: 498 ms QTC Calculation(Bazett): 420 ms P [place]: 90 degrees R [place]: 8 degrees T [place]: 61 degrees Sinus bradycardia with 1st degree A-V block with Premature atrial complexes Otherwise normal ECG When compared with ECG of 25-SEP-2022 13:15, Premature atrial complexes are now Present Vent. rate has decreased BY 33 BPM Confirmed by KELLIE GAVIN ([id number]) on 10/04/2022 12:55:39 PM Ona: KELLIE GAVIN * Event Display: ECG 12-Lead Authored Date: Please click on pdf link to open report * Event Display: ECG 12-Lead Authored Date: Ventricular Rate: 76 BPM Atrial Rate: 76 BPM P-R Interval: 216 ms QRS Duration: 100 ms Q-T Interval: 392 ms QTC Calculation(Bazett): 441 ms P [place]: 32 degrees R [place]: 2 degrees T [place]: 77 degrees Sinus rhythm with 1st degree A-V block Otherwise normal ECG When compared with ECG of 09-SEP-2022 13:02, Premature atrial complexes are no longer Present Confirmed by JIGNESH PADILLA ([id number]) on 09/26/2022 9:41:55 AM Ona: JIGNESH PADILLA [facility] Progress note * Laure GONZALEZ, Ananda Okeefe: TONIO Event Display: [facility] Authored Date: [id number] Patient: ??ALEAH CONNOR ? Age:??72 Years?Sex:??Female?:??1950?? Subjective ? Well Mild msk pain secondary to scrunched position, will get out in chair today No sob. Alert and orientated. Eating and drinking ?? Review of Systems A full review of systems was completed and is otherwise negative except as mentioned in history of present illness. Objective Vital Signs?? Temperature: 97.8 DegF (10/05/22 08:35:00) Temperature Route: Oral (10/05/22 08:35:00) Pulse Rate: 60 bpm (10/05/22 08:35:00) Respiratory Rate: 18 br/min (10/05/22 08:39:00) Systolic Blood Pressure:??152 mm Hg??High (10/05/22 08:35:00) Diastolic Blood Pressure:??96 mm Hg??High (10/05/22 08:35:00) Blood pressure sites: Arm, right (10/05/22 08:35:00) Mean Arterial Pressure: 115 mm Hg (10/05/22 08:35:00) Pulse Pressure: 56 mm Hg (10/05/22 08:35:00) Oxygen Saturation: 96 % (10/05/22 08:35:00) Mode of Delivery (Oxygen): Room air (10/05/22 08:35:00) Early Warning Score: 5 (10/05/22 12:01:29) ? Intake/Output? 09/24 14:13 10/05 07:00 10/04 07:00 10/03 07:00 10/02 07:00 ?? 10/05 14:16 10/05 14:16 10/05 06:59 10/04 06:59 10/03 06:59 Intake ?08012 ?0 ?930 ?600 ? 1200 Output ?63860 ? 1500 ? 5300 ? 4800 ? 6200 Net Total ? -90788 ?-1500 ?-4370 ?-4200 ?-5000 ? Urine Count ?2 ?0 ?1 ?0 ?0 ? Physical Exam General Appearance: The patient is stable, sits in contracted position chronically. Cardiovascular: RRR S1 and S2 heard with no M/R/G. No JVD. Respiratory: ??Breath sounds clear to auscultation bilaterally. No wheezing. Good air movement throughout both lungs. GI: Soft. Nontender and nondistended. Normal bowel sounds present throughout abdomen.?? MS:?Chronic venostatics changes lower legs. Peripheral sensation intact.?? Neuro: ??No slurred speech. ??Patient seen moving their upper and lower extremities independently. Psych: Alert and oriented x3. Lines: Peripheral IV in place, Rai _ Inpatient Medications Medications (23) Active SCHEDULED: (13) Apixaban 5 mg Tablet (Eliquis) ??5 mg, By Mouth, 2 times a day Breo Ellipta 200 mcg / 25 mcg Inhaler (Breo Ellipta 200 mcg-25 mcg Inhaler) ??1 puffs, Inhalation, Daily Fluticasone Propionate 50mcg/inh Nasal [place] (Flonase 50 mcg/inh nasal spray) ??50 mcg 1 sprays, Nares, Both, 2 times a day Furosemide 80 mg Tablet (Lasix 80 mg oral tablet) ??80 mg, By Mouth, 2 times a day Gabapentin 300 mg Capsule (gabapentin 300 mg oral capsule) ??300 mg, By Mouth, 2 times a day Insulin Glargine 100 units/mL Inj (Lantus Inj) ??38 units 0.38 mL, Subcutaneous Injection, 2 times a day Insulin Lispro 100 units/mL Inj (3mL) (Insulin LISPRO Sliding Scale) ??4-12 units, Subcutaneous Injection, 3 times a day before meals Lisinopril 10 mg Tablet (lisinopril 10 mg oral tablet) ??10 mg, By Mouth, Daily Metoprolol 50 mg Tablet (metoprolol 50 mg oral tablet) ??50 mg, By Mouth, 2 times a day NaCl 0.9% Flush 3ml (NaCL 0.9% Flush) ??3 mL, IV Push, Every 8 hours Nystatin Powder ??1 application, Topically, 2 times a day Polyvinyl Alcohol 1.4% Opthalmic Solution/Artificial Tears (Artificial Tears 1.4%) ??2 drops, Eyes,Both, 2 times a day Simvastatin 20 mg Tablet (simvastatin 20 mg oral tablet) ??40 mg, By Mouth, Daily at bedtime CONTINUOUS: (0) PRN: (10) Acetaminophen 325 mg Tablet (Acetaminophen Tablet) ??650 mg, By Mouth, Every 4 hours Albuterol 0.083% Inhalation Solution (Ventolin 90 mcg Inhaler) ??2.5 mg 3 mL, Neb, Every 6 hours Dextromethorphan-Guaifenesin 20 mg-200 mg/10 mL Liqu UD (Robitussin DM Liquid) ??10 mL, By Mouth, Every 4 hours Dextrose Inj Syringe (Dextrose 50% Inj Syringe (25Gm)) ??12.5 Gm, IV Push Slowly, Every 20 minutes Dextrose Inj Syringe (Dextrose 50% Inj Syringe (25Gm)) ??25 Gm, IV Push Slowly, Every 15 minutes Melatonin 3 mg Tablet (Melatonin Tablet) ??3 [...] Chew, 3 times a day ? Results no new labs Assessment/Plan ? 72- y/o F h/o??HFpEF, mild aortic stenosis, diabetes mellitus type 2, chronic respiratory failure on 2-3L O2, asthma/COPD overlap syndrome, ERICKA on IVAPS, HTN, hyperlipidemia, Afib on Eliquis, neurogenic bladder with chronic indwelling Rai catheter, immobile requiring wheelchair at baseline, who initially presented for dysuria, admitted for UTI that was catheter associated, now improved pending placement to rehab vs home with daughter (??returning on 10/05). New - mild thrombocytopenia, no signs of bleeding ?? Urinary tract infection, catheter associated Chronic indwelling Rai catheter Neurogenic bladder Urethral pain - resolved dysuria resolved. Urology agreed with prophylactic methenamine, pharmacy also recommended TMP as methenamine is not on formulary. ?? plan: -continue chronic indwelling rai -Methenamine for prophylaxis on discharge -follow up with [facility] urology outpt ?? Pseudo Hyponatremia, resolved Type II diabetes on mcc insulin POC glucoses improved but??intermittent high Na has been normal. ?? Plan: continue Lantus 38 units twice a day Tightened insulin SS Hypoglycemia emergency orders Holding Trulicity and metformin while inpatient, resume on dc ? Chronic medical issues Heart failure preserved EF: Patient looks euvolemic on exam. Continue with p.o. Lasix. Chronic respiratory failure with hypoxia, Asthma/COPD overlap syndrome: Continue oxygen (on 2-3L O2at home, per patient utilizes it mostly nocturnally which can be more attributed to ERICKA). Continue home albuterol PRN. ERICKA on iVAPS: IVAPS ordered, declined, on nocturnal O2 2L more likely due to ERICKA instead of asthma/COPD. A-fib on Eliquis: Continue Eliquis and metoprolol Hypertension: Continue lisinopril ?? Quality Code Status: Full VTE prophylaxis: Therapeutic Apixaban Diet: Cardiac diabetic Dispo: pending rehab placement vs home with daughter who is her PARTICIPANT ADMINISTRATOR (away in [place], likely for another week)??Has not had bed offers. ? Ananda Kelsey MD Internal Medicine PGY1; Pager: #[phone] ?? The patient was discussed with and seen by the attending physician, Dr. Villarreal * Phil GONZALEZ, [facility]: PERFORM Event Display: Progress Note Hospital Authored Date: I have seen and evaluated the patient on the day of service. I have discussed the case and its management with vp medical and I agree with assessment and plan as documented in resident's note * Batool Barrera RN: SIGN, MODIFY Bette Lin: PERFORM, SIGN Bette Lin: SIGN, VERIFY Bette Lin: VERIFY Event Display: Progress Note Hospital Authored Date: Patient: ALEAH CONNOR Age: 72 years Sex: Female : 1950 Associated Diagnoses: None Author: Bette Lin Findings Nursing Data Cardiac Data. : Cardiac Data. 10/05/2022 13:18 EDT Cardiovascular WNL (Preliminary) . Gastrointestinal Data. : Gastrointestinal Data. 10/05/2022 13:18 EDT Last Bowel Movement 10/03/2022 (Preliminary) GI WNL (Preliminary) Normal Bowel Pattern Every other day (Preliminary) . Genitourinary Data. : Genitourinary Data. 10/05/2022 13:18 EDT Genitourinary Symptoms Urinary retention (Preliminary) Urinary catheter type Single Lumen Indwelling Urinary Catheter (Preliminary) Date of Insertion 09/26/2022 (Preliminary) Urine Color Yellow (Preliminary) Urine Description Clear (Preliminary) WNL except (Preliminary) . Integumentary Data. : Integumentary Data. 10/05/2022 13:18 EDT Skin Abnormality Dry, Fragile, Scaly (Preliminary) Skin Integrity Intact (Preliminary) Mucous Membrane Color [place] (Preliminary) Mucous Membrane Description Dry (Preliminary) Activity Chairfast (Preliminary) Mobility Slightly limited (Preliminary) Integumentary WNL except (Preliminary) . Musculoskeletal Data. : Musculoskeletal Data. 10/05/2022 13:18 EDT Musculoskeletal Symptoms Weakness (Preliminary) Musculoskeletal WNL except (Preliminary) . Neurological Data. : Neurological Data. 10/04/2022 10:07 EDT Neurological Symptoms None Level of Consciousness Full Consciousness Orientated to person, place, time Person, Place, Time, Event Hallucinations None Facial Symmetry Intact Characteristics of Speech Clear and normal Swallowing Difficulty None Strength LUE 5-Active movement against gravity & full resistance Strength RUE 5-Active movement against gravity & full resistance Strength LLE 5-Active movement against gravity & full resistance Strength RLE 5-Active movement against gravity & full resistance Tone LUE Normal Tone RUE Normal Tone LLE Normal Tone RLE Normal Sensation LUE Intact Sensation RUE Intact Sensation LLE Intact Sensation RLE Intact Movement LUE Spontaneous Movement RUE Spontaneous Movement LLE Spontaneous Movement RLE Spontaneous Response Eye Opening Spontaneously Motor Response-Adult Obeys commands Verbal Response-Adult Oriented and converses [place] Coma Score 15 Pain Intensity 8 Neuro WNL except Eyes and Movements Conjugate gaze: Move in same direction at same speed Headache None Memory Intact Swallow - Neuro Normal . Vital Signs : VITAL SIGNS SECTION 10/05/2022 8:35 EDT Temperature 97.8 DegF Temperature Route Oral Pulse Rate 60 bpm Respiratory Rate 18 br/min Systolic Blood Pressure 152 mm Hg H Diastolic Blood Pressure 96 mm Hg H Blood pressure sites Arm, right Mean Arterial Pressure 115 mm Hg Pulse Pressure 56 mm Hg Oxygen Saturation 96 % Mode of Delivery (Oxygen) Room air . Narrative/Incidental (Patient is alert and oriented x3. Patient is sitting comfortably in bed at this time. Patient has a rai in place and it is draining clear yellow urine. Patient reports no painat insertion site. Patient is able to make needs known at this time. Patient ate 100% of breakfast and lunch. ) * Batool Barrera RN: PERFORM Event Display: Progress Note Hospital Authored Date: Precepted this loan underwriter and agree with above documentation * Clyde Sanchez RN: VERIFY, PERFORM, SIGN Event Display: Progress Note Hospital Authored Date: Patient: ALEAH CONNOR Age: 72 years Sex: Female : 1950 Associated Diagnoses: None Author: Clyde Sanchez RN Findings Problem Related to Alteration in Genitourinary : Alteration in Genitourinary Function/new 10/04/2022 18:00 EDT Alteration in Status Related to Urinary retention, UTI Goals & Outcomes, Genitourinary Pt will [...] PO fluid intake as allowed by diet, Resolved problem, Interventions no longer in effect, Assess causative factors of urinary retention, Teach signs & symptoms of distended bladder BH Goals/Interventions, Genitourinary Yes Genitourinary, Problem Start 10/04/2022 3:51 Reviewed Plan with, Genitourinary Patient Patient Progression, Genitourinary Patient progressing according to plan Genitourinary, Problem Ongoing Yes . Narrative/Incidental Patient alert and oriented x4. Remains on room air. Rai patent and draining clear yellow urine. Patientr epositioned frequently on my shift. Incontince care provided. Bed in lowest position, frequent rounding maintained. . Note * Laure GONZALEZ, Ananda Okeefe: PERFORM, MODIFY Event Display: Discharge/Transfer Note Hospital Authored Date: [id number] Patient: ??ALEAH CONNOR ? Age:??72 Years?Sex:??Female?:??1950?? Patient Information Discharge Location: [facility] Primary Care Physician: Cherise Hamm MD Admit Date/Time: 09/24/22 14:13 Discharge Disposition Discharge Disposition: Usp Facility/Rehab Discharge Diagnosis Primary: Catheter associate urinary tract infection ?? 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 Lisinopril (lisinopril 10 mg oral tablet)?10?Milligram?1?tablet?By Mouth?Daily Metformin (metFORMIN 850 mg oral tablet)?1?tab(s)?850?Milligram?By Mouth?2 times a day Methenamine (methenamine hippurate 1 gm oral tablet)?1?tab(s)?1?gram?By Mouth?2 times a day?for 30?Days Metoprolol (Metoprolol Tartrate 50 mg oral tablet)?1?tab(s)?50?Milligram?By Mouth?2 times a day Ocular Lubricant (ocular lubricant - solution)?2?Drops?Eye, Left?2 times a day?as needed?Other?Dryness. Simvastatin (simvastatin 40 mg oral tablet)?40?Milligram?1?tablet?By Mouth?Daily at bedtime ? 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 Future Appointments Monday. 2022 10:00 AM EDT ?? With: Burton Chapman DO Where: [facility] [address] [place] [address]- Hospital Course 72- y/o F h/o HFpEF, mild aortic stenosis, diabetes mellitus type 2, chronic respiratory failure on2-3L O2, asthma/COPD overlap syndrome, ERICKA on IVAPS, HTN, hyperlipidemia, Afib on Eliquis, neurogenic bladder with chronic indwelling Rai catheter, immobile requiring wheelchair at baseline, who initially presented for dysuria, admitted for UTI that was catheter associated. Resolved with antibiotics, discharged well to acute rehab with plan to go home after where she is cared for by her daughter. ?? Urinary tract infection, catheter associated Chronic indwelling Rai catheter Neurogenic bladder Urethral pain - resolved dysuria resolved. Urology agreed with prophylactic methenamine, pharmacy also recommended TMP as methenamine is not on formulary. s/p treatment w/ levofloxacin ?? Recommendations: -continue chronic indwelling rai -Methenamine for prophylaxis on discharge -Call??[facility] urology to arrange outpatient followup ?? Pseudo Hyponatremia, resolved Type II diabetes on long-term insulin POC glucoses improved but??intermittent high Na has been normal. ?? Recommendations: -continue Lantus 38 units twice a day, home insulin sliding scale -Resume home??Trulicity and metformin ?? Chronic medical issues Heart failure preserved EF: Patient looks euvolemic on exam. Continue with p.o. Lasix. Chronic respiratory failure with hypoxia, Asthma/COPD overlap syndrome: Continue oxygen (on 2-3L O2at home, per patient utilizes it mostly nocturnally which can be more attributed to ERICKA). Continue home albuterol PRN. ERICKA on iVAPS:??Cont??iVAPS at night A-fib on Eliquis: Continue Eliquis and metoprolol Hypertension: Continue lisinopril Objective Assessment and Plan Discharge Planning:? Vital Signs?? Temperature: 97.4 DegF (10/06/22 07:57:00) Temperature Route: Oral (10/06/22 07:57:00) Pulse Rate:??52 bpm??Low (10/06/22 08:38:00) Respiratory Rate: 20 br/min (10/06/22 08:37:00) Systolic Blood Pressure: 115 mm Hg (10/06/22 08:38:00) Systolic Blood Pressure: 115 mm Hg (10/06/22 08:38:00) Diastolic Blood Pressure:??50 mm Hg??Low (10/06/22 08:38:00) Diastolic Blood Pressure:??52 mm Hg??Low (10/06/22 08:38:00) Blood pressure sites: Arm, right (10/06/22 07:57:00) Mean Arterial Pressure: 72 mm Hg (10/06/22 07:57:00) Pulse Pressure: 65 mm Hg (10/06/22 07:57:00) Oxygen Saturation: 98 % (10/06/22 07:57:00) Liters per Minute: 2 L/min (10/06/22 07:57:00) Mode of Delivery (Oxygen): Nasal cannula (10/06/22 07:57:00) Early Warning Score: 3 (10/06/22 08:43:23) ? . Physical Exam General Appearance: The patient is stable, sits in contracted position chronically. Cardiovascular: RRR S1 and S2 heard with no M/R/G. No JVD. Respiratory: ??Breath sounds clear to auscultation bilaterally. No wheezing. Good air movement throughout both lungs. GI: Soft. Nontender and nondistended. Normal bowel sounds present throughout abdomen.?? MS:?Chronic venostatics changes lower legs. Peripheral sensation intact.?? Neuro: ??No slurred speech. ??Patient seen moving their upper and lower extremities independently. Psych: Alert and oriented x3. Consultants Kannan ZACARIAS, Vesta Menendez - [facility] Urology Pending Results Add On Lab Order ordered on 09/24/2022 COVID-19 (2019 Novel Coronavirus) PCR ordered on 10/06/2022 Patient Education Titles Rai Catheter Care?? Urinary Tract Infections in Women?? Rai Catheter Care?? Follow-Up Appointments Added Follow Up ?Time Frame ?Comments Hansel GONZALEZ , Cherise Bolden?2 to 3 weeks?Please call for follow up appointment Patient Instructions You presented to the hospital with an infection of your bladder, which we treated with antibiotics. ?? -Take Methenamine as prescribed 2 times a day for UTI prophylaxis -Followup with your PCP following discharge from rehab for review of your blood sugars and management of your chronic indwelling catheter. -Call??[facility] urology to arrange outpatient followup regarding your cathether and bladder Home Health Face to Face ^HomeHealthFTF Results Discharge Labs BLOOD COUNT & DIFF WBC 7.4 k/mm3 ()?? 10/04/2022 06:06 RBC 5.17 m/mm3 ()?? 10/04/2022 06:06 Hgb 14.0 Gm/dL ()?? 10/04/2022 06:06 Hct 44.1 % ()?? 10/04/2022 06:06 MCV 85.3 femtoliters ()?? 10/04/2022 06:06 MCH 27.1 pg ()?? 10/04/2022 06:06 MCHC 31.7 g/dL (Low)?? 10/04/2022 06:06 Platelet Count 148 k/mm3 (Low)?? 10/04/2022 06:06 RDW-SD 51.4 femtoliters (High)?? 10/04/2022 06:06 MPV 10.9 femtoliters ()?? 10/04/2022 06:06 Nucleated RBC (Automated) 0.0 #/100 WBC'S ()?? 10/04/2022 06:06 Abs. NRBC 0.0 k/mm3 ()?? 10/04/2022 06:06 Abs. Neut 3.9 k/mm3 ()?? 10/03/2022 07:27 Abs. Lymph 1.5 k/mm3 ()?? 10/03/2022 07:27 Abs. [place] 0.5 k/mm3 ()?? 10/03/2022 07:27 Abs. Eo 0.2 k/mm3 ()?? 10/03/2022 07:27 Abs. Baso 0.0 k/mm3 ()?? 10/03/2022 07:27 Neut % 63.7 % ()?? 10/03/2022 07:27 Lymph % 24.3 % ()?? 10/03/2022 07:27 [place] % 7.5 % ()?? 10/03/2022 07:27 Eos % 3.5 % ()?? 10/03/2022 07:27 Baso % 0.5 % ()?? 10/03/2022 07:27 Imm Gran 0.5 % ()?? 10/03/2022 07:27 Abs. Imm Gran 0.0 k/mm3 ()?? 10/03/2022 07:27 ?? CHEM GENERAL Sodium 135 mmol/L ()?? 10/06/2022 00:59 Potassium 3.7 mmol/L ()?? 10/06/2022 00:59 Chloride 91 mmol/L (Low)?? 10/06/2022 00:59 Bicarbonate Level 37 mmol/L (High)?? 10/06/2022 00:59 Anion Gap 7 ()?? 10/06/2022 00:59 Glucose Level 171 mg/dL (High)?? 10/06/2022 00:59 Glucose, POC 95 mg/dL ()?? 10/06/2022 07:31 BUN 20 mg/dL ()?? 10/06/2022 00:59 Creatinine-Blood 0.6 mg/dL ()?? 10/06/2022 00:59 Estimated GFR Creatinine 95 ML/MIN/1.73 M2 ()?? 10/06/2022 00:59 Calcium 9.0 mg/dL ()?? 10/06/2022 00:59 Phosphorus 4.1 mg/dL ()?? 10/03/2022 07:27 Magnesium 1.9 mg/dL ()?? 10/03/2022 07:27 ? HEME OTHER Hold Lavender Top SPECIMEN DISCARDED AFTER 24 HOURS. ()?? 09/29/2022 06:10 Hold Blue Top SPECIMEN DISCARDED AFTER 4 HOURS. ()?? 09/24/2022 00:06 ?? MISC. CHEMISTRY Hold Green Top SPECIMEN DISCARDED AFTER 1 WEEK ()?? 09/24/2022 00:06 Hold Gel Top SPECIMEN DISCARDED AFTER 1 WEEK ()?? 10/04/2022 06:04 ?? UA/URINALYSIS Appear/Color, Urine YELLOW ()?? 09/25/2022 13:07 Specific [place], Urine 1.016 ()?? 09/25/2022 13:07 pH, Urine 6.5 ()?? 09/25/2022 13:07 Albumin, Urine 3+ (Abnormal)?? 09/25/2022 13:07 Glucose, Urine 4+ (Abnormal)?? 09/25/2022 13:07 Ketones, Urine NEGATIVE ()?? 09/25/2022 13:07 Bilirubin, Urine NEGATIVE ()?? 09/25/2022 13:07 Hemoglobin, Urine 3+ (Abnormal)?? 09/25/2022 13:07 Nitrite, Urine NEGATIVE ()?? 09/25/2022 13:07 Leukocyte, Urine 3+ (Abnormal)?? 09/25/2022 13:07 Urobilinogen NORMAL mg/dL ()?? 09/25/2022 13:07 WBC's, Urine >182 /HPF (High)?? 09/25/2022 13:07 RBC's, Urine >182 /HPF (High)?? 09/25/2022 13:07 Bacteria SLIGHT HPF (Abnormal)?? 09/25/2022 13:07 Squamous Epith <1 /HPF ()?? 09/25/2022 13:07 Mucus SLIGHT /LPF ()?? 09/25/2022 13:07 WBC Clumps SLIGHT /HPF ()?? 09/25/2022 13:07 Hold Urine Culture Testing available 48 hours from time of collection. ()?? 09/25/2022 13:07 ?? VIROLOGY COVID-19 by RT-PCR NEGATIVE ()?? 09/24/2022 06:39 COVID-19 PCR Specimen Source NASAL ()?? 10/03/2022 05:52 COVID-19 PCR Result NEGATIVE ()?? 10/03/2022 05:52 ? Microbiology ?? COVID-19 (2019 Novel Coronavirus) PCR?? Completed?? Source: Nasal Body Site: Nose Collected Dt/Tm: 09/26/2022 05:38 Last Updated Dt/Tm: 09/26/2022 23:56 COVID-19 (2019 Novel Coronavirus) PCR?? Completed?? Source: Nasal Body Site: Nose Collected Dt/Tm: 09/29/2022 05:57 Last Updated Dt/Tm: 09/29/2022 14:52 COVID-19 (2019 Novel Coronavirus) PCR?? Completed?? Source: Nasal Body Site: Nose Collected Dt/Tm: 10/03/2022 05:52 Last Updated Dt/Tm: 10/03/2022 18:49 ?Ananda Kelsey MD Internal Medicine PGY1; Pager: #[phone] ?? The patient was discussed with and seen by the attending physician, Dr. Villarreal _ minutes spent on discharge * Phil GONZALEZ, Carolin: PERFORM Event Display: Discharge/Transfer Note Hospital Authored Date: * Aleah Corey RN: SIGN, VERIFY, PERFORM Event Display: Case Management Discharge Plan Authored Date: Patient: ALEAH CONNOR Age: 72 years Sex: Female : 1950 Associated Diagnoses: None Author: Aleah Corey RN Discharge Plan Case Management Discharge Plan : Case Management Discharge Plan Data 10/06/2022 9:31 EDT Discharge Level of Care at Discharge retirement facility Discharge Nursing Homes/Rehab Facilities [facility] [phone] Discharge Transportation Arranged [facility] [address] [place] [address] Discharge Arranged Transport Date/Time 10/06/2022 12:30 Mode of Transportation Arranged Ambulance Name of Agency #1 [facility] Service Categories #1 [facility]sp Name of Person Notified of Transfer Deb Connor[facility] * Jean FARNSWORTH, Tsering: PERFORM Event Display: Patient Education/Instruction Authored Date: Inpatient Adult Discharge Instructions [address] [address] Name: ALEAH CONNOR : 1950 Visit: 09/24/2022 14:13:00 Current Date: 10/06/2022 12:43 Account: [id number] Inpatient Adult Discharge Instructions We would like [...] and their families. Surveys are administered by [employer] ?? If further treatment with your primary care physician or another doctor is recommended, it is important for you to keep the appointment. Call your primary care physician or return to the Emergency Department immediately if your condition worsens, fails to improve, or new symptoms develop. If you need to find a doctor, you can call [facility] for a referral at [phone] or toll free at [phone] ([phone]) or log in to [email or web address].. ?? You can view and manage your care through the patient portal or by using a health care shaneka of your choosing. [employer] is a website that allows you to securely view your medical information including your hospital discharge summary, office visit summaries, medications and follow-up visits. You can also request appointments, renew medications, and request access to your medical information using a health care shaneka of your choosing, or just ask a question. You can enroll at [email or web address] or register during your next office visit. You have been discharged from [facility], Patient Care Unit: D6A. If you have any questions regarding these instructions after you leave, please call us and we will be happy to assist you. [facility] Your Care Team Attending Physician Carolin Villarreal MD Discharging Providers Laure GONZALEZ, Ananda Okeefe Reason for Admission Dysuria Your Diagnosis Rai catheter status UTI (urinary tract infection), bacterial Tests Performed Below is a partial list of the tests performed during your hospitalization. You may have had other tests and procedures not included in this list. Please discuss all test results with your provider. Basic Metabolic Panel BUN Calcium Level CBC CBC w/ Differential COVID-19 (2019 Novel Coronavirus) PCR COVID-19 (NOVEL CORONAVIRUS), PCR Creatinine Electrolytes Glucose Level GLUCOSE POC HOLD BLUE TUBE HOLD GEL TUBE HOLD GREEN TUBE HOLD LAVENDER TUBE Magnesium Level Phosphorus Level Urinalysis w/hold for Urine Culture Primary Care Provider Cherise Hamm MD Advance Directive Health Care Proxy on File Yes - Health Care Proxy Yes - MOLST Discharge Vitals Temperature: 97.4 DegF Height: 168 cm Pulse Rate:??52 bpm??Low Weight: 120.3 kg Respiratory Rate: 20 br/min Body Mass Index:??42.62 kg/m2??Critical Systolic Blood Pressure: 115 mm Hg Body surface area: 2.37 Systolic Blood Pressure: 115 mm Hg ?? Diastolic Blood Pressure:??50 mm Hg??Low ?? Diastolic Blood Pressure:??52 mm Hg??Low ?? Oxygen Saturation: 98 % ?? Studies Pending All tests and labs ordered during this hospital stay have been completed unless listed below. Please discuss all pending results with your provider listed above in these instructions. ?? Add On Lab Order COVID-19 (2019 Novel Coronavirus) PCR What to do next Instructions From Your Doctor You presented to the hospital with an infection of your bladder, which we treated with antibiotics. ?? -Take Methenamine as prescribed 2 times a day for UTI prophylaxis -Followup with your PCP following discharge from rehab for review of your blood sugars and management of your chronic indwelling catheter. -Call??[facility] urology to arrange outpatient followup regarding your cathether and bladder Discharge Orders Scheduled Follow-Up Appointments Monday. 2022 10:00 AM EDT ?? With: Burton Chapman DO Where: [facility] [address] [place] [id number]- You Need to Schedule the Following Appointments Follow Up with??[facility]rology When?? Where: [address] [place] [address]- Follow Up with??Hansel GONZALEZ , Cherise Bolden When??Within 2 to 3 weeks Why: Please call for follow up appointment Where: [address] [facility] [place] [address]- Discharge Medications ALEAH CONNOR :1950 Visit Date:09/24/2022 Medications: Please continue your medications until treatment is completed or stopped by your provider. Medications not listed below should be discontinued. Discuss any questions related to medications with your provider. What How Much When Instructions Next Dose Changed Insulin Glargine (Lantus Inj) 38 unit(s) Subcutaneous Injection Twice a day tonight at 9 PM Unchanged Albuterol (albuterol 0.083% inhalation solution) 3 Milliliter Nebulized inhalation Every 6 hours as needed for as needed for wheezing as needed Unchanged Albuterol (albuterol CFC free 90 mcg/ inh inhalation aerosol) 1 puff(s) Inhalation 4 times a day as needed for as needed for wheezing as needed Unchanged Albuterol/ Ipratropium (albuterol-ipratropium 3 mg-0.5 mg/ 3 ml inhalation solution) 3 Milliliter BAND Nebulizer 4 times a day as needed for Wheezing/Shortness of Breath as needed Unchanged apixaban (Eliquis 5 mg oral tablet) 1 tab(s) Oral Twice a day tonight at 9 PM Unchanged Aspirin (Aspirin Low Dose 81 mg oral delayed release tablet) 1 tab(s) Oral Daily tomorrow at 9 AM Unchanged Ergocalciferol (Vitamin D2 50,000 intl units (1.25 mg) oral capsule) 1 capsule Oral Every 7 days resume home regimen Unchanged Fluticasone (Flovent Diskus 100 mcg/ inh inhalation powder) 1 puff(s) Inhalation Twice a day tonight at 9 PM Unchanged Furosemide (Lasix 80 mg oral tablet) 1 tab(s) Oral Twice a day Duration: 30 Days tonight at 9 PM Unchanged Gabapentin (gabapentin 300 mg oral capsule) 1 capsule Oral Twice a day tonight at 9 PM Unchanged Insulin Lispro (Humalog Kwik Pen 100 units/ mL subcutaneous injection) Subcutaneous Injection 3 times a day before meals As directed per sliding scale. ?? give based on sliding scale before dinner Unchanged Lisinopril (lisinopril 10 mg oral tablet) 1 tab(s) Oral Daily tomorrow at 9 AM Unchanged Metformin (metFORMIN 850 mg oral tablet) 1 tab(s) Oral Twice a day tonight at 9 PM Unchanged Methenamine (methenamine hippurate 1 gm oral tablet) 1 tab(s) Oral Twice a day Duration: 30 Days tonight at 9 PM Unchanged Metoprolol (Metoprolol Tartrate 50 mg oral tablet) 1 tab(s) Oral Twice a day tonight 9 PM Unchanged Ocular Lubricant (ocular lubricant - solution) 2 Drops Left eye Twice a day as needed for Other Dryness. ?? as needed Unchanged Simvastatin (simvastatin 40 mg oral tablet) 1 tab(s) Oral Daily at Bedtime tonight at bed time Test Results Below is a partial list of the most recent Laboratory test results done prior to this discharge. You may have had other tests and procedures not included in this list. Please discuss all test resultswith your provider. Basic Metabolic Panel (10/06/2022) ???Sodium - 135 mmol/L???Potassium - 3.7 mmol/L???Chloride - 91 mmol/L???Bicarbonate Level - 37 mmol/L???Anion Gap - 7???Glucose Level - 171 mg/dL???BUN - 20 mg/dL???Creatinine-Blood - 0.6 mg/dL???Estimated GFR Creatinine - 95 ML/MIN/1.73 M2???Calcium - 9.0 mg/dL BUN (10/03/2022) ???BUN - 17 mg/dL Calcium Level (09/25/2022) ???Calcium - 8.6 mg/dL CBC (10/04/2022) ???WBC - 7.4 k/mm3???RBC - 5.17 m/mm3???Hgb - 14.0 Gm/dL???Hct - 44.1 %???MCV - 85.3 femtoliters???MCH - 27.1 pg???MCHC - 31.7 g/dL???Platelet Count - 148 k/mm3???RDW-SD - 51.4 femtoliters???MPV - 10.9 femtoliters???Nucleated RBC (Automated) - 0.0 #/100 WBC'S???Abs. NRBC - 0.0 k/mm3 CBC w/ Differential (10/03/2022) ???WBC - 6.0 k/mm3???RBC - 5.10 m/mm3???Hgb - 13.8 Gm/dL???Hct - 43.7 %???MCV - 85.7 femtoliters???MCH - 27.1 pg???MCHC - 31.6 g/dL???Platelet Count - 140 k/mm3???RDW-SD - 51.5 femtoliters???MPV - 11.1 femtoliters???Nucleated RBC (Automated) - 0.0 #/100 WBC'S???Abs. NRBC - 0.0 k/mm3???Abs. Neut - 3.9 k/mm3???Abs. Lymph - 1.5 k/mm3???Abs. [place] - 0.5 k/mm3???Abs. Eo - 0.2 k/mm3???Abs. Baso - 0.0 k/mm3???Neut % - 63.7 %???Lymph % - 24.3 %???[place] % - 7.5 %???Eos % - 3.5 %???Baso % - 0.5 %???Imm Gran - 0.5 %???Abs. Imm Gran - 0.0 k/mm3 COVID-19 (2019 Novel Coronavirus) PCR (10/03/2022) ???COVID-19 PCR Specimen Source - NASAL???COVID-19 PCR Result - NEGATIVE COVID-19 (NOVEL CORONAVIRUS), PCR (10/06/2022) ???COVID-19 by RT-PCR - NEGATIVE Creatinine (10/03/2022) ???Creatinine-Blood - 0.5 mg/dL???Estimated GFR Creatinine - 99 ML/MIN/1.73 M2 Electrolytes (10/03/2022) ???Sodium - 135 mmol/L???Potassium - 3.8 mmol/L???Chloride - 92 mmol/L???Bicarbonate Level - 36 mmol/L???Anion Gap - 7 Glucose Level (09/25/2022) ???Glucose Level - 279 mg/dL GLUCOSE POC (10/06/2022) ???Glucose, POC - 224 mg/dL HOLD BLUE TUBE (09/24/2022) ???Hold Blue Top - SPECIMEN DISCARDED AFTER 4 HOURS. HOLD GEL TUBE (10/04/2022) ???Hold Gel Top - SPECIMEN DISCARDED AFTER 1 WEEK HOLD GREEN TUBE (09/24/2022) ???Hold Green Top - SPECIMEN DISCARDED AFTER 1 WEEK HOLD LAVENDER TUBE (09/29/2022) ???Hold Lavender Top - SPECIMEN DISCARDED AFTER 24 HOURS. Magnesium Level (10/03/2022) ???Magnesium - 1.9 mg/dL Phosphorus Level (10/03/2022) ???Phosphorus - 4.1 mg/dL Urinalysis w/hold for Urine Culture (09/25/2022) ???Appear/Color, Urine - YELLOW???Specific [place], Urine - 1.016???pH, Urine - 6.5???Albumin, Urine - 3+???Glucose, Urine - 4+???Ketones, Urine - NEGATIVE???Bilirubin, Urine - NEGATIVE???Hemoglobin,Urine - 3+???Nitrite, Urine - NEGATIVE???Leukocyte, Urine - 3+???Urobilinogen - NORMAL???WBC's, Urine - >182 /HPF? ?RBC's, Urine - >182 /HPF? ?Bacteria - SLIGHT? ?Squamous Epith - <1 /HPF? ?Mucus - SLIGHT???WBC Clumps - SLIGHT???Hold Urine Culture - Testing available [...] Educational Leaflet Providered with your Discharge Instructions. Methenamine Oral Tablet?? Zones UTI?? Rai Catheter Care?? Urinary Tract Infections in Women?? Rai Catheter Care?? Valuables and Belongings I fully understand and agree that [facility] accepts no responsibility for all my [...] witness Date for Pt to Sign Valuables/Belongings: 10/06/22 11:06:00 ?? Other Discharge Information ?? Wound Assessment?? Wound Assessment?? Wound Location I: Foot, right Wound Type I: Skin Tear ?? Case Management Discharge Plan?? Discharge Plan?? Discharge Agency Information?? Discharge Level of Care at Discharge: retirement facility Name of Agency #1: [facility] Discharge Transportation Arranged: [facility] [address] [place] [address] ??[phone] Service Categories #1: [facility]sp Mode of Transportation Arranged: Ambulance [facility]charge Arranged Transport Date/Time: 10/06/22 12:30:00 ?? Discharge Nursing [facility]/Re[facility]ilities[facility] [facility] [phone] ? Pulmonary Rehab Status?? Pulmonary Rehab Discharge [...] are strongly encouraged to quit. Please call [facility] Link at [phone] or [phone] ([phone]) or log in to [email or web address] for referrals to smoking cessation programs. ?? The National Suicide Prevention Hotline is available 30/01 if you or someone you know needs to find a reason to keep living. By calling 9-729-307-Link_[employer]_ Media (4970) you'll be connected to a skilled, trained counselor at a crisis center in your area. INPATIENT DISCHARGE INSTRUCTIONS SIGNATURE GERSON JUSTINO CONNORAN Location:[facility] Registration Date and Time:09/24/2022 14:13 EDT Primary Care Physician: Hansel GONZALEZ , Cherise Bolden, I ALEAH CONNOR, have received the above patient education materials/instructions and have verbalized understanding. If ambulance or transport services are being used I further acknowledge being given a choice of service. ?? If you need to contact me, please call me at this number: . Patient/Fish Hatchery Assistant Name: Patient/Fish Hatchery Assistant Signature: Relationship to Patient: Witness Name/Signature: Date: * Tsering Pena RN: PERFORM Event Display: Patient Education Leaflets Authored Date: [id number] Methenamine Oral Tablet ?? [id number] Methenamine Oral Tablet Brands: Hiprex, Urex Uses For infection prevention. ?? Instructions It is very important that you take the medicine at about the same time every day. It will work bestif you do this. Store at room temperature away from heat, light, and moisture. Do not keep in the bathroom. If you forget to take a dose [...] about all medicines taken. Include prescription and ymbr-esr-cpndazu medicines, vitamins, and herbal medicines. Speak with your doctor or pharmacist before starting or stopping any medicine. Tell your doctor if symptoms do not get better or if they get worse. The foods you eat can change how well this medicine works. Tell your doctor about the types of foodyou normally eat. Ask your doctor for a list of foods that can affect this medicine. Do not significantly change the foods you normally eat while on this medicine. Keep using this medicine for the full number of days that it is prescribed. Do not stop the medicine even if you start to feel better. It is very important that you follow your doctor's instructions for all blood tests. Do not take the medicine more than twice during 24 hours. ?? Cautions Tell your doctor and pharmacist [...] experience these or other side effects. ??? decreased appetite ??? diarrhea ??? nausea and vomiting ??? stomach upset or abdominal pain If you have any of the following side effects, you may be getting too much medicine. Please contactyour doctor to let them know about these side effects. ??? difficulty or discomfort urinating ??? blood in urine Call your doctor or get medical help right away if you notice any of these more serious side effects: ??? ear problems (ringing in the ears, hearing loss) ??? swelling of the legs, feet, and hands ??? muscle cramps A few people may have an allergic reaction to this medicine. Symptoms can include difficulty breathing, skin rash, itching, swelling, or severe dizziness. If you notice any of these symptoms, seek medical help quickly. ?? Extra Please speak with your doctor, nurse, or pharmacist if you have any questions about this medicine. ?? [email or web address] IMPORTANT NOTE: This document tells you briefly how to take your medicine, but it does not tell youall there is to know about it. Your doctor or pharmacist may give you other documents about your medicine. Please talk to them if you have any questions. Always follow their advice. There is a more complete description of this medicine available in Micronesian. Scan this code on your smartphone or tablet or use the web address below. You can also ask your pharmacist for a printout. If you have any questions, please ask your pharmacist. The display and use of this drug information is subject to Terms of Use. Copyright(c) 2022 [employer]. ?? [employer]. All rights reserved. This information is not intended as a substitute for professional medical care. Always follow your healthcare professional's instructions. ?? * Tsering Pena RN: PERFORM Event Display: Patient Education Leaflets Authored Date: [id number] Zones UTI ?? 479 URINARY TRACT INFECTION ZONES EVERY DAY Urinary Tract Infections occur when bacteria enters the urethra and travels up to the bladder. ?? EVERY DAY: ??? Take your medicine as directed by your doctor.?? Be sure to take as directed until medicine is complete. ??? Keep an updated medicine list with you. ??? Be sure to see your primary care provider within a few days for a follow up. ??? Drink plenty of fluids.?? 9-13 eight-ounce glasses per day. ??? Pee often.?? Do not hold urine in. ??? Rest often. ??? Avoid sex if your partner has an infection. Which Zone are you today? GREEN, YELLOW, or RED? GREEN ZONE ALL CLEAR - This zone is your goal Your symptoms are under control when: ??? You have no fever or pain when peeing YELLOW ZONE ?? STOP && CALL CAUTION - This zone is a warning If you have one or more, of the following: Call Your Doctor: ??? You have questions or concerns about your medicines or condition. ??? You have a fever. ??? You have blood in your urine. ??? You have new or worse pain or burning when peeing. ??? Your urine looks cloudy or has a bad smell. ??? You feel the need to urinate more often. [facility] Seek care immediately if you have any of the following (DO NOT DRIVE YOURSELF): ??? You pee small amounts or not at all. ??You feel like you cannot empty your bladder completely. ??? You feel confused. ??? You have shaking chills with a fever. ??? You begin vomiting and cannot keep down liquids. ??? You have side or back pain that is getting worse. ???You are breathing faster than usual or have a fast heart beat. ? * Laure GONZALEZ, Ananda Okeefe: PERFORM Event Display: Patient Education Leaflets Authored Date: [id number] Rai Catheter Care ?? [id number] Rai Catheter Care A Rai catheter is [...] from sliding out of the bladder. A Rai catheter is used when you are unable [...] fainting ?? Last Reviewed Date: 2021 ?? 2867-7344 [employer]. All rights reserved. This information is not intended as a substitute for professional medical care. Always follow your healthcare professional's instructions. ?? * Nelly Mcghee MD: MODIFY, MODIFY, MODIFY, MODIFY, PERFORM, MODIFY, MODIFY, MODIFY, MODIFY Event Display: Discharge/Transfer Note Hospital Authored Date: [id number] Patient: ??ALEAH CONNOR ? Age:??72 Years?Sex:??Female?:??1950?? Patient Information Discharge Location: [facility] Primary Care Physician: Cherise Hamm MD Admit Date/Time: 09/24/22 14:13 Discharge Disposition Discharge Disposition: Usp Facility/Rehab Discharge Diagnosis Rai catheter status (Z97.8) UTI (urinary tract infection), bacterial (N39.0) Heart failure with preserved ejection fraction Asthma COPD Obstructive sleep apnea Atrial fibrillation Hypertension Diabetes mellitus type 2 _ Discharge Medications [...] tablet)?40?Milligram?1?tablet?By Mouth?Daily at bedtime ? Medications Started None Medications Discontinued Aspirin 81 mg Doses Changed Lantus changed from 70U in am to 35U BID Allergies Allergies ?(Active and Proposed Allergies Only) Silvadene? (Severity: Unknown severity, Onset: Unknown) ?Reactions: unsure, skin alicea ? PCP Follow-Up/Heads-Up Patient's aspirin discontinued due to unclear indication. Please follow up for glycemic control. Future Appointments Monday. 2022 10:00 AM EDT ?? With: Burton Chapman DO Where: [facility] [address] [place] [id number]- Hospital Course Ms Connor is a 72-year-old female with medical history significant for heart failure preserved EF,mild aortic stenosis, diabetes mellitus type 2, asthma/COPD on home oxygen 2 to 3 L, ERICKA on IVAPS, hypertension, hyperlipidemia, A-fib on Eliquis, neurogenic bladder with chronic indwelling Rai catheter who is wheelchair-bound at baseline, who presented initially due to burning/pain around her urethra and cloudy urine, likely in the setting of UTI. Her burning/pain resolved after receiving antibiotics. Her indwelling Rai was exchanged. ?? Urinary tract infection Chronic indwelling Rai catheter Neurogenic bladder Patient reports she was having some burning and pain around her urethra on admission. She has a chronic indwelling Rai catheter which gets changed every month. Patient hemodynamically stable.?? No fever.?? No leukocytosis.?? Urinalysis positive for leukocyte,WBC more than 182, RBC 36. However, this was done with old Rai 09/25 patient reports burning and pain around her urethra has resolved.?? Has purewick in place, oldFoley discontinued, not replaced after attempts by RN and urology. 09/26 urology consulted, new Rai placed. Urine culture contaminated. Presumed UTI based on initialsymptoms and improvement after abx. - Continue the P.O. Levofloxacin to complete 3 day course ?? Pseudo Hyponatremia, mild Likely pseudo - when corrected for BG, 133 -f/u PCP ?? Chronic medical issues Heart failure preserved EF: Patient looks euvolemic on exam. Continue with p.o. Lasix. Asthma/COPD on home oxygen, not in acute exacerbation: -Continue oxygen (on 2-3L O2 at home, per patient utilizes it mostly nocturnally which can be more attributed to ERICKA) -continue home albuterol PRN. ERICKA on iVAPS: IVAPS ordered, declined, on nocturnal O2 2L more likely due to ERICKA instead of asthma/COPD. See recs for asthma/COPD above. A-fib on Eliquis: Continue Eliquis. Continue metoprolol. Hypertension: Continue lisinopril Diabetes mellitus type 2: She takes Lantus 70 units in a.m., Trulicity, on sliding scale and metformin. -Lantus changed from 70U changed to??35U BID with positive response, continue -resume home Trulicity -resume home metformin ?? Code Status: Full VTE prophylaxis: Apixaban Diet: Cardiac diabetic ?? Objective Vital Signs?? Temperature: 97.7 DegF (09/27/22 07:48:00) Temperature Route: Oral (09/27/22 07:48:00) Pulse Rate: 65 bpm (09/27/22 07:48:00) Respiratory Rate: 17 br/min (09/27/22 07:48:00) Systolic Blood Pressure: 133 mm Hg (09/27/22 07:48:00) Diastolic Blood Pressure: 58 mm Hg (09/27/22 07:48:00) Blood pressure sites: Arm, right (09/27/22 07:48:00) Mean Arterial Pressure: 83 mm Hg (09/27/22 07:48:00) Pulse Pressure: 75 mm Hg (09/27/22 07:48:00) Oxygen Saturation: 100 % (09/27/22 07:48:00) Liters per Minute: 2 L/min (09/27/22 07:48:00) Mode of Delivery (Oxygen): Nasal cannula (09/27/22 07:48:00) Early Warning Score: 3 (09/27/22 07:55:11) ? . Physical Exam Gen: The patient is alert, oriented and in NAD. CV: RRR S1 and S2 heard with no M/R/G. Pulm:?Expiratory wheezes on all posterior lung ruiz. Abd: Soft. NT. ND. Normal bowel sounds present. Ext:??No edema or erythema. Consultants Urology - Kannan ZACARIAS, Vesta Menendez Pending Results None Patient Education Titles Urinary Tract Infections in Women?? Rai Catheter Care?? Follow-Up Appointments Added Follow Up ?Time Frame ?Comments Hansel GONZALEZ , Cherise Bolden?2 to 3 weeks?Please call for follow up appointment Home Health Face to Face ^HomeHealthFTF Results Discharge Labs BLOOD COUNT & DIFF WBC 7.7 k/mm3 ()?? 09/25/2022 04:07 RBC 4.85 m/mm3 ()?? 09/25/2022 04:07 Hgb 13.1 Gm/dL ()?? 09/25/2022 04:07 Hct 41.3 % ()?? 09/25/2022 04:07 MCV 85.2 femtoliters ()?? 09/25/2022 04:07 MCH 27.0 pg ()?? 09/25/2022 04:07 MCHC 31.7 g/dL (Low)?? 09/25/2022 04:07 Platelet Count 185 k/mm3 ()?? 09/25/2022 04:07 RDW-SD 50.8 femtoliters (High)?? 09/25/2022 04:07 MPV 12.1 femtoliters ()?? 09/25/2022 04:07 Nucleated RBC (Automated) 0.0 #/100 WBC'S ()?? 09/25/2022 04:07 Abs. NRBC 0.0 k/mm3 ()?? 09/25/2022 04:07 Abs. Neut 4.8 k/mm3 ()?? 09/25/2022 04:07 Abs. Lymph 1.6 k/mm3 ()?? 09/25/2022 04:07 Abs. [place] 1.0 k/mm3 (High)?? 09/25/2022 04:07 Abs. Eo 0.3 k/mm3 ()?? 09/25/2022 04:07 Abs. Baso 0.0 k/mm3 ()?? 09/25/2022 04:07 Neut % 61.6 % ()?? 09/25/2022 04:07 Lymph % 20.8 % ()?? 09/25/2022 04:07 [place] % 12.6 % (High)?? 09/25/2022 04:07 Eos % 4.3 % ()?? 09/25/2022 04:07 Baso % 0.3 % ()?? 09/25/2022 04:07 Imm Gran 0.4 % ()?? 09/25/2022 04:07 Abs. Imm Gran 0.0 k/mm3 ()?? 09/25/2022 04:07 ?? CHEM GENERAL Sodium 131 mmol/L (Low)?? 09/26/2022 01:03 Potassium 4.4 mmol/L ()?? 09/26/2022 01:03 Chloride 92 mmol/L (Low)?? 09/26/2022 01:03 Bicarbonate Level 33 mmol/L (High)?? 09/26/2022 01:03 Anion Gap 6 ()?? 09/26/2022 01:03 Glucose Level 279 mg/dL (High)?? 09/25/2022 04:07 Glucose, POC 160 mg/dL (High)?? 09/27/2022 07:47 BUN 21 mg/dL ()?? 09/26/2022 01:03 Creatinine-Blood 0.7 mg/dL ()?? 09/26/2022 01:03 Estimated GFR Creatinine 93 ML/MIN/1.73 M2 ()?? 09/26/2022 01:03 Calcium 8.6 mg/dL ()?? 09/25/2022 04:07 Phosphorus 3.2 mg/dL ()?? 09/25/2022 04:07 ?? HEME OTHER Hold Blue Top SPECIMEN DISCARDED AFTER 4 HOURS. ()?? 09/24/2022 00:06 ? MISC. CHEMISTRY Hold Green Top SPECIMEN DISCARDED AFTER 1 WEEK ()?? 09/24/2022 00:06 ? UA/URINALYSIS Appear/Color, Urine YELLOW ()?? 09/25/2022 13:07 Specific [place], Urine 1.016 ()?? 09/25/2022 13:07 pH, Urine 6.5 ()?? 09/25/2022 13:07 Albumin, Urine 3+ (Abnormal)?? 09/25/2022 13:07 Glucose, Urine 4+ (Abnormal)?? 09/25/2022 13:07 Ketones, Urine NEGATIVE ()?? 09/25/2022 13:07 Bilirubin, Urine NEGATIVE ()?? 09/25/2022 13:07 Hemoglobin, Urine 3+ (Abnormal)?? 09/25/2022 13:07 Nitrite, Urine NEGATIVE ()?? 09/25/2022 13:07 Leukocyte, Urine 3+ (Abnormal)?? 09/25/2022 13:07 Urobilinogen NORMAL mg/dL ()?? 09/25/2022 13:07 WBC's, Urine >182 /HPF (High)?? 09/25/2022 13:07 RBC's, Urine >182 /HPF (High)?? 09/25/2022 13:07 Bacteria SLIGHT HPF (Abnormal)?? 09/25/2022 13:07 Squamous Epith <1 /HPF ()?? 09/25/2022 13:07 Mucus SLIGHT /LPF ()?? 09/25/2022 13:07 WBC Clumps SLIGHT /HPF ()?? 09/25/2022 13:07 Hold Urine Culture Testing available 48 hours from time of collection. ()?? 09/25/2022 13:07 ?? VIROLOGY COVID-19 by RT-PCR NEGATIVE ()?? 09/24/2022 06:39 COVID-19 PCR Specimen Source NASAL ()?? 09/26/2022 05:38 COVID-19 PCR Result NEGATIVE ()?? 09/26/2022 05:38 ? _ minutes spent on discharge ?? Case and plan were discussed with attending, Dr. Teran. ?? Nelly Mcghee MD, PGY1 Department of Psychiatry [facility]?? * Nelly Mcghee MD: PERFORM Event Display: Discharge/Transfer Note Hospital Authored Date: Patient medically cleared for discharge pending placement. Please use this note in place of progress note. * Pablito Teran MD: PERFORM Event Display: Discharge/Transfer Note Hospital Authored Date: [id number] Attending Attestation: I have??seen and evaluated??ALEAH CONNOR, on 09/27/22. ??I have??reviewed the patient???s medical history, findings on examination, diagnosis, and treatment. I have discussed the case and its management with the resident and agree with the findings and plan as documented in the resident???s note.? _ ? * Event Display: Provider Clarification Note Please click on pdf link to open report Patient Care team information Care Team Personnel Name: Alvaro Oliver RN Position: [facility] RN Member Role: Primary Care Nurse Name: Tk Iqbal RN Position: [facility] RN Supv Member Role: Primary Care Nurse Name: Lachelle Daniels RN Position: [facility] RN Member Role: Primary Care Nurse Name: Jovanny Stuart RN Position: [facility] RN Member Role: Primary Care Nurse Name: Delaney De Los Santos RN Position: [facility] SN RN Member Role: Primary Care Nurse Name: Jillian Mckeon RN Position: [facility] [place] Outreach Member Role: PCP Address: Address: [address] [place] [phone] [place] Name: Chyna Aguilar RN Position: [facility] RN Member Role: Primary Care Nurse Address: Address: [address] [place] [phone]- [place] Name: John Guaman RN Position: [facility] RN Member Role: Primary Care Nurse Name: Maria M Vance RN Position: [facility] RN Member Role: Primary Care Nurse Name: FabZiyad Harris Attending Position: [facility] ED Medicine MD Name: Greer Mortensen Position: [facility] ED OA Charge Member Role: ED Associate Name: Dayday Ruffin RN Position: [facility] ED RN W/OE and Tasks Member Role: Patient Care Provider Name: Rowena Pulido Position: [facility] ED TA [facility] Member Role: Neonatal Specialist Care Team Related Persons Name: KIA STEPHANI Address: home [address] [place] [id number] Name: GEETHA [place] Address: [place] [address]
--- OUTSIDE RECORDS SUMMARY | 2024-01-06 09:19 | XMS_ITS | Continuity of Care Document ---
Author Organization [facility] ter Address [address] [place] [id number]- Care Team Providers Care Electronic Field Service Engineer Name Role Phone Cherise Hamm MD Primary Care Physician [phone] Encounter [facility] Date(s): 01/22/23 - 01/22/[address] [address]- Encounter Diagnosis Knee contusion(Final) - 01/22/23 Discharge Disposition: A-D/C Home Attending Physician: Alvaro Bailey MD Admitting Physician: Alvaro Bailey MD Referring Physician: Not on Staff, Referring [...] inactivated 07/13/22 Not Given Patient Refuses Medications acetaminophen 325 mg oral tablet 650 mg, By Mouth, 4 times a day, PRN, for 10 days, or Temperature Greater than 100.5 not to exceed 4000 mg/day, # 50 tablet, Refills 0, Tot. Refills 0, Acute 01/23/23 11:54:00 EDT, Pain , Mild, 01/13/23 11:54:00 EDT, Route to Pharmacy Electronically,... Start Date: 01/13/23 Stop Date: 01/23/23 Status: Ordered albuterol 0.083% inhalation solution 3 [...] 02/12/23 11:53:00 EDT, 01/13/23 11:53:00 EDT, Tablet, [facility]/pharmacy #[id number], Partial fill upon patient request if the [...] AT BEDTIME Start Date: 12/12/22 Status: Ordered [id number] oral powder for reconstitution = 17 Gm, By Mouth, Daily, PRN Constipation, for 14 days, # 255 Gm, 0 Refills, Acute 01/27/23 11:55:00 EDT, 01/13/23 11:55:00 EDT, [facility]/pharmacy #[id number], Partial fill upon patient request if the prescription is for a schedule II opioid drug., 17 Gm By Afshan... Start Date: 01/13/23 Stop Date: 01/27/23 Status: Ordered simvastatin 40 mg oral tablet [...] to Pharmacy Electronically, [facility]/pharmacy #[id number], Partial fill upon patient request if the [...] Exam Date Time Procedure Performing Provider Status 01/22/23 5:01 PM XR Hip w/Pelvis 2-3 View Right Sol z , Dagmar; Auth (Verified) Notes: (XR Hip w/Pelvis 2-3 View Right) Reason For Exam: With Pain;Trauma RESULT: XR Hip w/Pelvis 2-3 View Right XR Hip w/Pelvis 2-3 View Right Hx of Present Illness: Pt coming from home s p witnessed slid off chair onto bilateral knees no deformitites notes.did not hit head, denies loc. Pt is on blood thinners. Bedbound.Upon enetering pts room pt states i did not fall, they said thats what i have to say to get seen q; Reason: Trauma; With Pain; Clinical Question(s): Fracture COMPARISON: 07/01/2022 FINDINGS: The study is markedly limited due to patient body habitus. Near complete joint space loss within both hips with osteophyte formation is noted. There are no definite fractures. A Molina catheter is seen. IMPRESSION: Limited study. There is no acute osseous abnormality. If there is high clinical concern for occult injury, CT could be considered. WSN: [id number] Ordering Physician: Alvaro Pina Dictated By: Violet Ureña MD Dictated Date/Time: 01/22/23 5:11 pm Reviewed By: Violet Ureña MD Signed By: Violet Ureña MD Signed Date/Time: 01/22/23 5:11 pm Transcribed By: SOLOMON Transcribed Date/Time: 01/22/23 5:10 pm * Exam Date Time Procedure Performing Provider Status 01/22/23 4:16 PM Knee 1 or 2 Views Left Yuliya Anne n; Auth (Verified) Notes: (Knee 1 or 2 Views Left) Reason For Exam: with Pain;Trauma RESULT: Knee 1 or 2 Views Left Examination: Left knee performed on 01/22/2023. History: Hx of Present Illness: Pt coming from home s p witnessed slid off chair onto bilateral knees no deformitites notes.did not hit head, denies loc. Pt is on blood thinners. Bedbound.Upon enetering pts room pt states i did not fall, they said thats what i have to say to get seen q; Reason: Trauma; with Pain; Clinical Question(s): Fracture Findings: Frontal and lateral views of the left knee are submitted. Osteopenia is present. Tricompartment joint space narrowing is present. Chondrocalcinosis within the lateral compartment is seen. There is no joint effusion. IMPRESSION: There is no acute osseous abnormality. WSN: [id number] Ordering Physician: Alvaro Pina Dictated By: Violet Ureña MD Dictated Date/Time: 01/22/23 4:21 pm Reviewed By: Violet Ureña MD Signed By: Violet Ureña MD Signed Date/Time: 01/22/23 4:21 pm Transcribed By: SOLOMON Transcribed Date/Time: 01/22/23 4:20 pm * Exam Date Time Procedure Performing Provider Status 01/22/23 4:16 PM Knee 1 or 2 Views Right Damiondagoberto Addieiggy mn; Auth (Verified) Notes: (Knee 1 or 2 Views Right) Reason For Exam: with Pain;Trauma RESULT: Knee 1 or 2 Views Right Examination: Right knee performed on 01/22/2023. History: Hx of Present Illness: Pt coming from home s p witnessed slid off chair onto bilateral knees no deformitites notes.did not hit head, denies loc. Pt is on blood thinners. Bedbound.Upon enetering pts room pt states i did not fall, they said thats what i have to say to get seen q; Reason: Trauma; with Pain; Clinical Question(s): Fracture Findings: Frontal and lateral views of the right knee are submitted. Osteopenia is present. There are no fractures. There is no joint effusion. IMPRESSION: There is no acute osseous abnormality. WSN: [id number] Ordering Physician: Alvaro Pina Dictated By: Violet Ureña MD Dictated Date/Time: 01/22/23 4:19 pm Reviewed By: Violet Ureña MD Signed By: Violet Ureña MD Signed Date/Time: 01/22/23 4:19 pm Transcribed By: SOLOMON Transcribed Date/Time: 01/22/23 4:18 pm Vital Signs Most recent to oldest [Reference Range]: 1 2 3 Oxygen Saturation [94-100 %] 100 % (01/22/23 8:55 PM) 96 % (01/22/23 7:06 PM) 97 % (01/22/23 1:49 PM) Pulse Rate [55-90 bpm] 73 bpm (01/22/23 8:55 PM) 87 bpm (01/22/23 7:06 PM) 69 bpm (01/22/23 1:49 PM) Blood Pressure [90-138/55-84 mm Hg] 132/69mm Hg (01/22/23 8:55 PM) 137/56mm Hg (01/22/23 7:06 PM) 159/64mm Hg *H* (01/22/23 1:49 PM) Respiratory Rate [16-30 br/min] 20 br/min (01/22/23 8:55 PM) 14 br/min *L* (01/22/23 7:06 PM) 12 br/min *L* (01/22/23 1:49 PM) Temperature [96.8-100.4 DegF] 97.7 DegF (01/22/23 7:06 PM) 97.4 DegF (01/22/23 1:49 PM) Liters per Minute 2 L/min (01/22/23 8:55 PM) Mode of Delivery (Oxygen) Nasal cannula (01/22/23 8:55 PM) Room air (01/22/23 7:06 PM) Room air (01/22/23 1:49 PM) Blood pressure sites Arm, left (01/22/23 8:55 PM) Arm, left (01/22/23 7:06 PM) Arm, left (01/22/23 1:49 PM) Temperature Route Oral (01/22/23 7:06 PM) Oral (01/22/23 1:49 PM) Social History Social History Type Response Smoking Status Former smoker; Tobac co user in household: No entered on: 01/17/17 Sex Patient Care team information Care Team Personnel Name: Alvaro Oliver RN Position: [facility] RN Member Role: Primary Care Nurse Name: Tala Curiel LPN Position: [facility] RN Member Role: Primary Care Nurse Name: Tk Iqbal RN Position: [facility] RN Member Role: Primary Care Nurse Name: Jovanny Stuart RN Position: [facility] RN Member Role: Primary Care Nurse Name: Delaney De Los Santos RN Position: [facility] SN RN Member Role: Primary Care Nurse Name: Michelle Ricketts Position: [facility] RN Member Role: Primary Care Nurse Name: Cande Kennedy RN Position: [facility] KRISTIN Nurse Member Role: Primary Care Nurse Name: Batool Summers Position: [facility] RN Member Role: Primary Care Nurse Name: Lainey Walker LPN Position: [facility] RN Member Role: Primary Care Nurse Name: Yanira Trevizo Position: [facility] RN Member Role: Primary Care Nurse Name: Batool Cervantes RN Position: [facility] RN Member Role: Primary Care Nurse Name: Batsheva Bernard RN Position: [facility] RN Member Role: Primary Care Nurse Name: Fern Franklin LPN Position: [facility] RN Member Role: Primary Care Nurse Name: Vasyl Catherine RN Position: [facility] RN Member Role: Primary Care Nurse Name: Eve Mastesr RN Position: [facility] RN Member Role: Primary Care Nurse Name: Elizabeth Barrios RN Position: [facility] RN Member Role: Primary Care Nurse Name: Jignesh Stoner RN Position: [facility] RN Member Role: Primary Care Nurse Name: Kady Garcias RN Position: [facility] RN Member Role: Primary Care Nurse Name: Rosy Arriaza RN Position: [facility] RN Member Role: Primary Care Nurse Name: Cherise Hamm MD Position: [facility] Outreach Member Role: PCP Address: Address: [address] [place] [id number]- Name: Chyna Aguilar RN Position: [facility] RN Member Role: Primary Care Nurse Address: Address: [address] [place] [phone]- [place] Name: John Guaman RN Position: [facility] RN Member Role: Primary Care Nurse Name: Rocio Andrade RN Position: [facility] RN Member Role: Primary Care Nurse Name: Lisy Clayton RN Position: [facility] ED RN W/OE and Tasks Member Role: Patient Care Provider Name: Alvaro Pina DO Position: [facility] Resident Member Role: Resident Address: Address: [address] [place] [address]- [place] Name: Alvaro Bailey MD Position: [facility] Resident Member Role: Admitting Physician Address: Address: [address] [place] [id number]- Care Team Related Persons Name: STEPHANI ADAM Address: [address] [address] Name: NATHEN LLOYD
--- OUTSIDE RECORDS SUMMARY | 2024-01-06 09:19 | XMS_ITS | Continuity of Care Document ---
Author Organization [facility] ter Address [address] [place] [id number]- Care Team Providers Care Route Relief Driver Name Role Phone Hansel GONZALEZ, Cherise Bolden Primary Care Physician Encounter [facility] Date(s): 01/11/23 - 01/13/[address] [id number] Encounter Diagnosis Gastrointestinal symptom(Final) - 01/11/23 Discharge Disposition: A-D/C Home Attending Physician: Karina Murrieta MD Admitting Physician: Heena Padilla MD Referring Physician: Not on Staff, Referring [...] 2 Refills, Maintenance, 01/08/23 12:40:00 EDT, Solution, [facility]/pharmacy #[id number], ICD 10 - J45.901, 16... [...] 3 Refills, Maintenance, 11/01/22 11:09:00 EDT, Powder, [facility]/pharmacy #[id number], Partial fill upon patient request if the prescription is for a schedule II opioid drug., 1 puffs Inhalation Daily, 167.64, cm, 11/01/22 7... Start Date: 11/01/22 Status: Ordered docusate-senna 50 mg-187 mg oral tablet 2 tablet, By Mouth, Daily at bedtime, PRN Constipation, for 30 days, # 60 tablet, 0 Refills, Acute 02/12/23 11:53:00 EDT, 01/13/23 11:53:00 EDT, Tablet, [facility]/pharmacy #[id number], Partial fill upon patient request [...] oral capsule 300 mg, Capsule, By Mouth, 01/13/23 9:00:00 EDT Start Date: 01/13/23 Stop Date: 01/13/23 Status: Completed gabapentin 300 mg oral capsule [...] oral tablet 50 mg, Tablet, By Mouth, 01/13/23 9:00:00 EDT Start Date: 01/13/23 Stop Date: 01/13/23 Status: Completed Metoprolol Tartrate 50 mg oral [...] 0 Refills, Maintenance, 08/01/22 11:21:00 EST, Solution, [facility]/pharmacy #[id number], Partial fill upon patient request if the prescription is for a schedule II opioid drug., 2 drops Eye, Left 2... Start Date: 08/01/22 Status: Ordered oxybutynin 5 mg/24 hours oral tablet, extended release TAKE 1 TABLET BY MOUTH EVERY DAY AT BEDTIME Start Date: 12/12/22 Status: Ordered [id number] oral powder for reconstitution = 17 Gm, By Mouth, Daily, PRN Constipation, for 14 days, # 255 Gm, 0 Refills, Acute 01/27/23 11:55:00 EDT, 01/13/23 11:55:00 EDT, [facility]/pharmacy #[id number], Partial fill upon patient request [...] 11/01/22 11:29:00 EDT, Route to Pharmacy Electronically, [facility]/pharmacy #[id number], Partial fill upon patient request [...] Reports Name Date Urine Culture (URINE CULTURE) 01/11/23 Microbiology Reports TEST:Urine Culture STATUS:Auth (Verified) BODY SITE: SOURCE:URINE COLLECTED DATE/TIME:01/11/23 1:00 AM Urine Culture SPECIMEN DESCRIPTION : URINE SPECIAL REQUESTS : NONE CULTURE : Mixed bacterial carlito, indicative of urogenital contamination. REPORT STATUS : FINAL 01/12/2023 Radiology Reports * Exam Date Time Procedure Performing Provider Status 01/11/23 7:57 AM Chest 2 Views Frontal and Lat Christal Patel; Auth (Verified) Notes: (Chest 2 Views Frontal and Lat) Reason For Exam: dehydration, prior CHF;Other: RESULT: Chest 2 Views Frontal and Lat Chest 2 Views Frontal and Lat Reason: Other:; dehydration, prior CHF; Clinical Question(s): Pneumonia COMPARISON: 01/04/2023 FINDINGS: No acute cardiopulmonary process IMPRESSION: No acute abnormality. WSN: [id number] Ordering Physician: Stephani Garrido Dictated By: Alvaro Arce MD Dictated Date/Time: 01/11/23 8:00 am Reviewed By: Alvaro Arce MD Signed By: Alvaro Acre MD Signed Date/Time: 01/11/23 8:00 am Transcribed By: SOLOMON Transcribed Date/Time: 01/11/23 7:58 am * Exam Date Time Procedure Performing Provider Status 01/11/23 5:[address] Abd/Pelvis W/ IV Contrast Only Aleah Elam; Auth (Verified) Notes: (CT Abd/Pelvis W/ IV Contrast Only) Reason For Exam: diffuse abd pain, N/V/D x 12 hours;Other: RESULT: CT Abd/Pelvis W/ IV Contrast Only CT Abd/Pelvis W/ IV Contrast Only INDICATION: Abdominal pain with nausea and vomiting. Concern for diverticulitis. TECHNIQUE: Spiral CT through the abdomen and pelvis with IV contrast formatted in 3 planes. 100 cc of Omnipaque 300 was administered intravenously. This study was performed without oral contrast. Weight-based protocol using automatic tube modulation was used to optimize exposure parameters. CTDIvol Body: 20.40 mGy, DLP Body: 1123 mGy*cm. COMPARISON: 07/29/2022. FINDINGS: Dress Operator View Findings, Lines and Tubes: Decompressed Rai catheter in place. Visualized Chest: Bibasilar atelectasis. No pleural effusion. The heart is normal in size. Diaphragm: Normal. Liver: Unchanged 4.4 cm right hepatic lobe hemangioma. Gallbladder: No CT evidence of gallbladder pathology. Bile ducts: No biliary ductal dilation. Spleen: Normal. Pancreas: Normal. Adrenal glands: Normal. Kidneys and ureters: Left upper pole parenchymal thinning, seen on prior. Unchanged punctate calculus in the superior left kidney. No hydronephrosis. Bladder: Decompressed with Rai catheter in place. Small amount of intraluminal air, likely secondary to instrumentation. Reproductive organs: Unchanged large exophytic fibroid extending from the left aspect of the uterus.. Stomach, small bowel, and large bowel: Small hiatal hernia. Small bowel is normal in course and caliber. Large bowel appears normal. Appendix: No evidence of acute appendicitis. Peritoneum and retroperitoneum: No ascites or pneumoperitoneum. No omental or mesenteric lesions. Lymph nodes: No enlarged lymph nodes. Blood vessels: Moderate atherosclerotic vascular calcification. No aortic aneurysm. Abdominal and pelvic wall: Bilateral fat-containing inguinal hernias. Bones: Severe degenerative changes of the bilateral hips. Moderate degenerative changes of the spine with bony fusion of L4 and L5. IMPRESSION: 1. No acute abnormality. No evidence of acute diverticulitis. 2. Small hiatal hernia. 3. Severe degenerative changes of the bilateral hips. I have personally reviewed the images and I agree with this report. WSN: [id number] Ordering Physician: Stephani Garrido Dictated By: Red Garcia MD Dictated Date/Time: 01/11/23 8:14 am Reviewed By: Yisel Peñaloza MD Signed By: Yisel Peñaloza MD Signed Date/Time: 01/11/23 8:19 am Transcribed By: SOLOMON Transcribed Date/Time: 01/11/23 5:32 am Vital Signs Most recent to oldest [Reference Range]: 1 2 3 Height 167 cm (01/13/23 3:25 PM) 167 cm (01/13/23 5:38 AM) 167 cm (01/12/23 9:58 PM) Weight 121.6 kg (01/11/23 1:00 PM) Oxygen Saturation [94-100 %] 95 % (01/13/23 3:25 PM) 97 % (01/13/23 1:00 PM) 98 % (01/13/23 5:38 AM) Pulse Rate [55-90 bpm] 62 bpm (01/13/23 3:25 PM) 68 bpm (01/13/23 1:00 PM) 62 bpm (01/13/23 8:32 AM) Body Mass Index [18.5-24.99 kg/m2] 43.6 kg/m2 *>HHI* (01/11/23 1:00 PM) Blood Pressure [90-138/55-84 mm Hg] 160/60mm Hg *H* (01/13/23 3:25 PM) 132/50mm Hg (01/13/23 1:00 PM) 137/63mm Hg (01/13/23 8:32 AM) Respiratory Rate [16-30 br/min] 18 br/min (01/13/23 3:25 PM) 18 br/min (01/13/23 1:00 PM) 18 br/min (01/13/23 10:03 AM) Temperature [96.8-100.4 DegF] 97.5 DegF (01/13/23 3:25 PM) 97.1 DegF (01/13/23 1:00 PM) 97.5 DegF (01/13/23 5:38 AM) Liters per Minute 2 L/min (01/13/23 5:38 AM) 2 L/min (01/11/23 2:37 PM) 2 L/min (01/11/23 1:01 PM) Mode of Delivery (Oxygen) Room air (01/13/23 3:25 PM) Room air (01/13/23 1:00 PM) Nasal cannula (01/13/23 5:38 AM) Blood pressure sites Arm, right (01/13/23 3:25 PM) Arm, right (01/13/23 1:00 PM) Arm, right (01/13/23 5:38 AM) Temperature Route Oral (01/13/23 3:25 PM) Oral (01/13/23 1:00 PM) Oral (01/13/23 5:38 AM) Dry Weight 121.6 kg (01/11/23 1:00 PM) Social History Social History Type Response Smoking Status Former smoker; Tobac co user in household: No entered on: 01/17/17 Sex Admission evaluation note * Abbe Mc MD: PERFORM Event Display: Admission Note Authored Date: [id number] Patient: ??ALEAH ADAM ? Age:??72 Years?Sex:??Female?:??1950?? Chief Complaint/Reason for Consultation From home, reports diffuse abd pain for a few hours with N/V/D History of Present Illness 72-year-old female with past medical history of atrial fibrillation on Eliquis, history of chronic diastolic heart failure, COPD, ERICKA/OHS on CPAP at night with 2 L oxygen, does not use oxygen during the daytime, morbid obesity, type 2 diabetes mellitus, hypertension, diabetic neuropathy, nonambulatory at baseline, neurogenic bladder??on chronic Rai catheter. ??Lives by herself??and has aides coming to her home. ??Daughter lives nearby. ?? She was recently admitted for acute on chronic diastolic heart failure and was diuresed??and discharged home.?? 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 She had a??large bowel movement around 5 pounds??as per her.??As??per the patient, My??aids were surprised??that??how can any one have ??that large of a bowel movement. ??Overnight yesterday??patient started having chills??and multiple episodes of diarrhea, whichdid not smell right, her appetite??was poor and??she did not eat much?because of which she called EMS??and presented to the ED for evaluation. ?? On??evaluation in the ED??patient was found to have elevated white cell count of 17.3 with left shift, serum sodium was low at 130. ??COVID??test was negative,??Rai catheter was exchanged??and aUA was sent. ??UA came back positive for 2+ leukocyte esterase and??pyuria.?? Patient received 1 L bolus of LR in the ED??and??was plan for medicine admission??for observation.Currently patient is hemodynamically stable and appropriate for floor admission. Review of Systems Review of system apart from the ones mentioned in the subjective are negative. Objective ? Vital Signs?? Temperature: 97.5 DegF (01/11/23 08:11:00) Temperature Route: Oral (01/11/23 08:11:00) Pulse Rate: 62 bpm (01/11/23 08:11:00) Respiratory Rate: 18 br/min (01/11/23 08:11:00) Systolic Blood Pressure: 108 mm Hg (01/11/23 08:11:00) Diastolic Blood Pressure:??46 mm Hg??Low (01/11/23 08:11:00) Pulse Pressure: 62 mm Hg (01/11/23 08:11:00) Oxygen Saturation: 98 % (01/11/23 08:11:00) Liters per Minute: 2 L/min (01/11/23 08:11:00) Mode of Delivery (Oxygen): Nasal cannula (01/11/23 08:11:00) Early Warning Score: 5 (01/11/23 08:53:46) ? Perfusion Assessment Capillary Refill: < 3 seconds (01/11/23 08:11:00) Cardiac Rhythm: Normal sinus rhythm (01/11/23 08:11:00) Cardiovascular Assessment Status: Unchanged from recorder's assessment (01/11/23 05:28:00) Cardiovascular Comment: denies cp, palpable pulses, edema noted in b/l lower extremities (01/11/23 08:11:00) Cardiovascular Symptoms: Edema present (01/11/23 08:11:00) Nail Bed Color, Fingers: [place] (01/11/23 08:11:00) Skin Temperature Lower Extremities: Warm (01/11/23 08:11:00) Skin Temperature Upper Extremities: Warm (01/11/23 08:11:00) ? Pain Scores?? No qualifying data available. ? Intake/Output? No Data Available ?? Ochoa Coma Scale Ochoa Coma Score: 15 (01/11/23 01:00:00) Motor Response-Adult: Obeys commands (01/11/23 01:00:00) Response Eye Opening: Spontaneously (01/11/23 01:00:00) Verbal Response-Adult: Oriented and converses (01/11/23 01:00:00) ? Mobility & Ambulation Level Mobility & Ambulation Level?? No qualifying data available. ? Physical Exam Constitutional: Alert, in no acute distress.?? Class IIIb obesity Head EENT: Extraocular muscle movement intact.??Moist mucous membranes.?? Neck: Supple. No JVD. Respiratory: Decreased air entry bilaterally, no wheezing or crackles, no use of accessory muscles,??was on 2 L oxygen saturating in the late 90s. Cardiovascular: S1S2 regular. No murmurs, rubs or gallops. Gastrointestinal: Abdomen soft, non-tender, non-distended. Normal bowel sounds. Genitourinary: No CVA tenderness.?? Chronic Rai catheter-was exchanged on??01/10 on admission Extremities: Chronic venous stasis dermatitis, no significant swelling in lower extremities. Neurologic: AAOx3, Speech normal. No focal neurological deficits. Skin: No rash. Psychiatric: Normal mood and affect Assessment/Plan Diagnoses Gastrointestinal symptom ??(R19.8) ?? Multiple episodes of diarrhea Etiology-current differentials are??potentially??IBS??given that patient had??prolonged??episode ofconstipation??since last admission until yesterday when she had a large bowel movement??followed byepisodes of diarrhea,??other differentials are infectious??diarrhea given the elevated white cell count White cell count elevated??at 17.3, will check for C. difficile/enteric PCR??panel, continue on C. difficile isolation Gentle hydration with normal saline??(mild hyponatremia), monitor electrolytes and replace accordingly Monitor for??episodes of diarrhea-if patient does not have diarrhea??in the hospital and C. difficile/enteric PCR currently can be discontinued, continue on as needed bowel regimen with docusate/senna, polyethylene glycol??(hold for multiple bowel movements) ?? Catheter associated UTI Prior urine culture had grown??E. coli??which were multidrug-resistant, Pseudomonas aeruginosa which are multidrug-resistant to They were both sensitive to Zosyn.?? Continue Zosyn, UA??positive for pyuria, leukocyte esterase, awaiting urine cultures Rai catheter was exchanged on 01/10 ?? Mild hyponatremia Serum sodium of 130, most likely hypovolemic??from the diarrhea, check urine electrolytes/urine osmolality,??started on normal saline infusion Recheck sodium in the morning tomorrow ?? Chronic diastolic heart failure Does not look to be in volume overload currently Home Lasix 80 mg daily??currently on hold??because of mild hyponatremia Getting IV fluids, Lasix and resume tomorrow, lisinopril currently on hold ?? Neurogenic bladder Continue oxybutynin, on Rai catheter ?? Essential hypertension Home lisinopril, Lasix currently on hold, potentially can be resumed tomorrow Continue metoprolol for ? Hyperlipidemia Continue simvastatin ?? History of atrial fibrillation currently in normal sinus rhythm Rate controlled-continue metoprolol??tartrate 50 mg twice daily Anticoagulation-Eliquis ?? ERICKA/OHS/COPD Uses CPAP??nightly??with 2 L oxygen Continue ?? Diabetes mellitus type 2 with peripheral neuropathy Continue home Lantus of 68 units??daily, lispro sliding scale,??POCT AC/at bedtime,??adjust insulinaccordingly Continue home gabapentin ?? CODE STATUS-full code ?? DVT prophylaxis-Eliquis ?? Disposition-in next 1 to 2 days. ??Awaiting clinical improvement. ? Electronically signed: ?? Abbe Mc MD. ?Order Date/Time ??Order Action ??Order Name ??Order Detail ??01/11/2023 10:28 ??Order ??Isolation ??Contact, 01/11/23 10:28:00 EDT ??01/11/2023 10:28 ??Order ??C. difficile Rapid Toxin Assay ??Routine, Stool, 01/11/23 10:28:00 EDT ??01/11/2023 10:28 ??Order ??GI Profile, Stool, PCR ??Routine, Stool, 01/11/23 10:28:00 EDT ??01/11/2023 09:30 ??Modify ??Piperacillin/Tazobactam 3.375 Gm Inj ??3.375 Gm, 25 mL/hr, IVPB, Every 8 hours ??01/11/2023 09:30 ??Modify ??Polyvinyl Alcohol 1.4% Opthalmic Solution/Artificial Tears ??2 drops, Eye, Left, Every 4 hours, PRN: Other ??01/11/2023 08:39 ??Order ??Piperacillin/Tazobactam 3.375 Gm Inj ??3.375 Gm, IVPB, Every 8 hours ??01/11/2023 08:39 ??Cancel ??Ceftriaxone 1 Gm Inj ??1 Gm, 100 mL/hr, IVPB, Every 24 hours ??01/11/2023 08:38 ??Order ??Albuterol 0.083% Inhalation Solution ??2.5 mg, 3 mL, BAND Nebulizer, Every 4 hours, PRN: Wheezing/Shortness of Breath ??01/11/2023 08:37 ??Order ??Simvastatin 20 mg Tablet ??40 mg, tablet, By Mouth, Daily at bedtime ??01/11/2023 08:37 ??Order ??Oxybutynin 5 mg ER Tablet ??5 mg, By Mouth, Daily at bedtime ??01/11/2023 08:37 ??Order ??Polyvinyl Alcohol 1.4% Opthalmic Solution/Artificial Tears ??2 drops, Eye, Left, Every 4 hours, PRN: Other ??01/11/2023 08:36 ??Order ??Montelukast 10 mg Tablet ??10 mg, tablet, By Mouth, Daily at bedtime ??01/11/2023 08:36 ??Order ??Metoprolol 50 mg Tablet ??50 mg, By Mouth, 2 times a day ??01/11/2023 08:35 ??Order ??Insulin Glargine 100 units/mL Inj ??68 units, 0.68 mL, Subcutaneous Injection, Daily at bedtime ??01/11/2023 08:35 ??Order ??Gabapentin 300 mg Capsule ??300 mg, capsule, By Mouth, 2 times a day ??01/11/2023 08:34 ??Modify ??Ceftriaxone 1 Gm Inj ??1 Gm, 100 mL/hr, IVPB, Every 24 hours ??01/11/2023 08:34 ??Order ??Aspirin 81 mg EC Tablet ??81 mg, By Mouth, Daily ??01/11/2023 08:34 ??Order ??Apixaban 5 mg Tablet ??5 mg, tablet, By Mouth, 2 times a day ??01/11/2023 08:32 ??Order ??Urea Nitrogen Urine ??CALLI, Urine, 01/11/23 8:32:00 EDT ??01/11/2023 08:32 ??Order ??Sodium Urine ??CALLI, Urine, 01/11/23 8:32:00 EDT ??01/11/2023 08:32 ??Order ??Potassium Urine ??CALLI, Urine, 01/11/23 8:32:00 EDT ??01/11/2023 08:32 ??Order ??Chloride Urine ??CALLI, Urine, 01/11/23 8:32:00 EDT ??01/11/2023 08:32 ??Order ??Osmolality Urine ??CALLI, Urine, 01/11/23 8:32:00 EDT ??01/11/2023 08:32 ??Order ??Creatinine Urine ??CALLI, Urine, 01/11/23 8:32:00 EDT ??01/11/2023 08:32 ??Order ??NaCL 0.9% (1000 mL) Cont IV 1,000 mL ??100 mL/hr, IV Infusion ??01/11/2023 08:30 ??Order ??Ceftriaxone 1 Gm Inj ??1 Gm, IVPB, Every 24 hours ??01/11/2023 08:25 ??Order ??Change Attending, /DO ??Alexandro GONZALEZ, Abbe, cortext until 5 pm and then page cross cover from 5pm to 7 am [id number], 01/11/23 8:25:00 EDT ? Histories Allergies Allergies ?(Active and Proposed [...] Family History No family history recorded. ? Travel History Travel Outside [facility]: No ?? Medications Home Medications Albuterol (albuterol CFC free [...] injection)?See Instructions?As directed per sliding scale.100-150 - [id number] - 5 [id number]- 7 [id number]- 9 -070- 11units> 350 - 13 units and call [...] mg oral tablet)?40?Milligram?1?tablet?By Mouth?Daily at bedtime ? Inpatient Medications Medications (21) Active SCHEDULED: (11) Apixaban 5 mg Tablet (Eliquis) ??5 mg, By Mouth, 2 times a day Aspirin 81 mg EC Tablet (aspirin 81 mg oral delayed release tablet) ??81 mg, By Mouth, Daily Gabapentin 300 mg Capsule (gabapentin 300 mg oral capsule) ??300 mg, By Mouth, 2 times a day Insulin Glargine 100 units/mL Inj (Insulin Glargine Inj) ??68 units 0.68 mL, Subcutaneous Injection, Daily at bedtime Insulin [...] extended release) ??5 mg, By Mouth, Daily at bedtime Piperacillin/Tazobactam 3.375 Gm Inj (Zosyn Extended IVPB) ??3.375 Gm, IVPB, Every 8 hours Simvastatin 20 mg Tablet (simvastatin 20 mg oral tablet) ??40 mg, By Mouth, Daily at bedtime CONTINUOUS: (1) NaCL 0.9% (1000 mL) Cont IV 1,000 mL (0.9% NaCL 1,000 mL) ??1,000 mL, IV Infusion, 100 mL/hr PRN: (9) Acetaminophen 325 mg Tablet (Acetaminophen Tablet) ??650 mg, By Mouth, Every 4 hours Albuterol 0.083% Inhalation Solution (Albuterol 0.083% inhalation ramin) ??2.5 mg 3 mL, BAND Nebulizer, Every 4 hours Dextromethorphan-Guaifenesin 20 [...] (Artificial Tears 1.4%) ??2 drops, Eye, Left, Every 4 hours Senna 8.6 mg / Docusate 50 mg tablet (Docusate/Senna Tablet) ??1 tablet, By Mouth, 2 times a day Simethicone 80 mg Chewable Tablet (Simethicone Tablet) ??80 mg, Chew, 3 times a day ? Vaccinations and Immunoprophylaxis influenza virus vaccine, inactivated: 0.7 mL (07/31/22 08:49:00) influenza virus vaccine, inactivated: 0.5 Unknown (04/09/21 08:00:00) influenza virus vaccine, inactivated: 0.5 Unknown (09/06/19 07:00:00) influenza virus vaccine, inactivated: 0.5 Unknown (03/26/18 08:00:00) influenza virus vaccine, inactivated: 0.5 Unknown (05/17/17 07:00:00) influenza virus vaccine, inactivated: 0 Unknown (04/20/16 08:00:00) influenza virus vaccine, inactivated: 0.5 Unknown (04/21/15 08:00:00) influenza virus vaccine, inactivated: 0 Unknown (06/25/10 07:00:00) pneumococcal 13-valent vaccine: 0.5 Unknown (04/21/15 08:00:00) pneumococcal 23-valent vaccine: 0.5 Unknown (09/06/19 07:00:00) pneumococcal 23-valent vaccine: 0.5 Unknown (01/23/18 08:00:00) pneumococcal 23-valent vaccine: 0 Unknown (05/25/01 07:00:00) SARS-CoV-2 (COVID-19) Ad26 vaccine: 0.5 Unknown (10/12/20 08:00:00) tetanus/diphtheria/pertussis, acel(Tdap): 0.5 Unknown (11/12/15 08:00:00) tetanus-diphtheria toxoids (Td): 0.5 Unknown (10/16/17 08:00:00) ? Durable Medical Equipment On Admit VNA/Hospice/Home Care: [facility] [address] [place] [address] (12/13/22) Discharge recommendations: None (10/27/22) Discharge Medical Equipment Companies: [employer] (07/13/22) Name of Agency #1: [facility] (12/16/22) [address] Mechanical Engineer #1: intake (12/16/22) Service Categories #1: Physical Therapy, [facility] (12/16/22) Service Comments #1: Patient is active with [facility]. VNA will resume services upon discharge if you dont hear from them please call them directly. (12/16/22) zzzName of Agency #2: [employer] (07/13/22) [address] Mechanical Engineer #2: Bridgette Luong liaison, (07/13/22) Service Categories #2: CPAP unit (07/13/22) Service Comments #2: Bridgette, your current home oxygen provider, has been contacted by your [facility] pulmonary clinician Morenita Mejía to arrange delivery of a home CPAP/IVAPs unit. The agency will contact you directly to arrange IVAPS delivery timing & training. (07/13/22) CPAP/BiPAP Mask Type: Full (05/09/22) CPAP/BiPAP Mask Size: Medium (05/09/22) Ambulatory devices needed: Walker, Other: alex (01/05/23) ? Results Recent Labs BLOOD COUNT & DIFF WBC 17.3 k/mm3 (High)?? 01/11/2023 00:39 RBC 5.16 m/mm3 ()?? 01/11/2023 00:39 Hgb 13.9 Gm/dL ()?? 01/11/2023 00:39 Hct 42.9 % ()?? 01/11/2023 00:39 MCV 83.1 femtoliters ()?? 01/11/2023 00:39 MCH 26.9 pg (Low)?? 01/11/2023 00:39 MCHC 32.4 g/dL (Low)?? 01/11/2023 00:39 Platelet Count 198 k/mm3 ()?? 01/11/2023 00:39 RDW-SD 46.5 femtoliters ()?? 01/11/2023 00:39 MPV 11.0 femtoliters ()?? 01/11/2023 00:39 Nucleated RBC (Automated) 0.0 #/100 WBC'S ()?? 01/11/2023 00:39 Abs. NRBC 0.0 k/mm3 ()?? 01/11/2023 00:39 Abs. Neut 15.2 k/mm3 (High)?? 01/11/2023 00:39 Abs. Lymph 0.7 k/mm3 (Low)?? 01/11/2023 00:39 Abs. [place] 1.2 k/mm3 (High)?? 01/11/2023 00:39 Abs. Eo 0.0 k/mm3 ()?? 01/11/2023 00:39 Abs. Baso 0.0 k/mm3 ()?? 01/11/2023 00:39 Neut % 88.0 % (High)?? 01/11/2023 00:39 Lymph % 4.1 % (Low)?? 01/11/2023 00:39 [place] % 6.9 % ()?? 01/11/2023 00:39 Eos % 0.1 % ()?? 01/11/2023 00:39 Baso % 0.2 % ()?? 01/11/2023 00:39 Imm Gran 0.7 % ()?? 01/11/2023 00:39 Abs. Imm Gran 0.1 k/mm3 ()?? 01/11/2023 00:39 ?? CHEM GENERAL Sodium 130 mmol/L (Low)?? 01/11/2023 00:39 Potassium 4.4 mmol/L ()?? 01/11/2023 00:39 Chloride 91 mmol/L (Low)?? 01/11/2023 00:39 Bicarbonate Level 25 mmol/L ()?? 01/11/2023 00:39 Anion Gap 14 ()?? 01/11/2023 00:39 Glucose Level 297 mg/dL (High)?? 01/11/2023 00:39 Glucose, POC 198 mg/dL (High)?? 01/11/2023 08:46 BUN 21 mg/dL ()?? 01/11/2023 00:39 Creatinine-Blood 0.4 mg/dL (Low)?? 01/11/2023 00:39 Estimated GFR Creatinine 103 ML/MIN/1.73 M2 ()?? 01/11/2023 00:39 Alkaline Phosphatase 191 units/L (High)?? 01/11/2023 00:39 Lipase 14 units/L ()?? 01/11/2023 00:39 AST (SGOT) 18 units/L ()?? 01/11/2023 00:39 ALT (SGPT) 17 units/L ()?? 01/11/2023 00:39 Bilirubin, Total 0.6 mg/dL ()?? 01/11/2023 00:39 ?? STOOL STUDIES WBC Stool NONE SEEN /HPF (N)?? 01/11/2023 00:25 ?? UA/URINALYSIS Appear/Color, Urine LIGHT YELLOW ()?? 01/11/2023 01:00 Specific [place], Urine 1.008 ()?? 01/11/2023 01:00 pH, Urine 6.0 ()?? 01/11/2023 01:00 Albumin, Urine TRACE (Abnormal)?? 01/11/2023 01:00 Glucose, Urine NEGATIVE ()?? 01/11/2023 01:00 Ketones, Urine NEGATIVE ()?? 01/11/2023 01:00 Bilirubin, Urine NEGATIVE ()?? 01/11/2023 01:00 Hemoglobin, Urine 3+ (Abnormal)?? 01/11/2023 01:00 Nitrite, Urine NEGATIVE ()?? 01/11/2023 01:00 Leukocyte, Urine 2+ (Abnormal)?? 01/11/2023 01:00 Urobilinogen NORMAL mg/dL ()?? 01/11/2023 01:00 WBC's, Urine 12 /HPF (High)?? 01/11/2023 01:00 RBC's, Urine 9 /HPF (High)?? 01/11/2023 01:00 Amorphous Crystals SLIGHT /HPF ()?? 01/11/2023 01:00 Mucus SLIGHT /LPF ()?? 01/11/2023 01:00 Hold Urine Culture Testing available 48 hours from time of collection. ()?? 01/11/2023 01:00 ?? VIROLOGY COVID-19 by RT-PCR NEGATIVE ()?? 01/11/2023 08:25 ? Abnormal Labs ?? BLOOD COUNT & DIFF ??Abs. Imm Gran ??0.1 k/mm3 () ??01/11/2023 00:39 ??Abs. Lymph ??0.7 k/mm3 (Low) ??01/11/2023 00:39 ??Abs. [place] ??1.2 k/mm3 (High) ??01/11/2023 00:39 ??Abs. NRBC ??0.0 k/mm3 () ??01/11/2023 00:39 ??Abs. Neut ??15.2 k/mm3 (High) ??01/11/2023 00:39 ??Imm Gran ??0.7 % () ??01/11/2023 00:39 ??Lymph % ??4.1 % (Low) ??01/11/2023 00:39 ??MCH ??26.9 pg (Low) ??01/11/2023 00:39 ??MCHC ??32.4 g/dL (Low) ??01/11/2023 00:39 ??Neut % ??88.0 % (High) ??01/11/2023 00:39 ??Nucleated RBC (Automated) ??0.0 #/100 WBC'S () ??01/11/2023 00:39 ??RDW-SD ??46.5 femtoliters () ??01/11/2023 00:39 ??WBC ??17.3 k/mm3 (High) ??01/11/2023 00:39 ? CHEM GENERAL ??Alkaline Phosphatase ??191 units/L (High) ??01/11/2023 00:39 ??Chloride ??91 mmol/L (Low) ??01/11/2023 00:39 ??Creatinine-Blood ??0.4 mg/dL (Low) ??01/11/2023 00:39 ??Estimated GFR Creatinine ??103 ML/MIN/1.73 M2 () ??01/11/2023 00:39 ??Glucose Level ??297 mg/dL (High) ??01/11/2023 00:39 ??Glucose, POC ??198 mg/dL (High) ??01/11/2023 08:46 ??Sodium ??130 mmol/L (Low) ??01/11/2023 00:39 ? STOOL STUDIES ??WBC Stool ??NONE SEEN /HPF (N) ??01/11/2023 00:25 ? UA/URINALYSIS ??Albumin, Urine ??TRACE (Abnormal) ??01/11/2023 01:00 ??Amorphous Crystals ??SLIGHT /HPF () ??01/11/2023 01:00 ??Appear/Color, Urine ??LIGHT YELLOW () ??01/11/2023 01:00 ??Bilirubin, Urine ??NEGATIVE () ??01/11/2023 01:00 ??Glucose, Urine ??NEGATIVE () ??01/11/2023 01:00 ??Hemoglobin, Urine ??3+ (Abnormal) ??01/11/2023 01:00 ??Hold Urine Culture ??Testing available 48 hours from time of collection. () ??01/11/2023 01:00 ??Ketones, Urine ??NEGATIVE () ??01/11/2023 01:00 ??Leukocyte, Urine ??2+ (Abnormal) ??01/11/2023 01:00 ??Mucus ??SLIGHT /LPF () ??01/11/2023 01:00 ??Nitrite, Urine ??NEGATIVE () ??01/11/2023 01:00 ??RBC's, Urine ??9 /HPF (High) ??01/11/2023 01:00 ??Urobilinogen ??NORMAL mg/dL () ??01/11/2023 01:00 ??WBC's, Urine ??12 /HPF (High) ??01/11/2023 01:00 ? VIROLOGY ??COVID-19 by RT-PCR ??NEGATIVE () ??01/11/2023 08:25 ? Note: Critical results are displayed in red. ? Microbiology ?? COVID-19 (Novel Coronavirus), Rapid PCR?? Completed?? Source: Nasal Body Site: Nose Collected Dt/Tm: 01/11/2023 07:28 Last Updated Dt/Tm: 01/11/2023 10:21 ? Blood Gases?? No qualifying data available. ? EKG study * Event Display: EKG Authored Date: Hospital Progress note * Tala Curiel LPN: PERFORM, SIGN, VERIFY, MODIFY, SIGN Event Display: Progress Note Hospital Authored Date: Patient: ALEAH ADAM Age: 72 years Sex: Female : 1950 Associated Diagnoses: None Author: Taal Curiel LPN Findings Narrative/Incidental Pt alert and oriented x4, calm and cooperative with care. Took all a.m. meds without issue. Pt denies any loose stool or BM since 01/11. Dr. Murrieta notified and contact precautions d/c'd, stool collection d/c'd. Report 2-/10 pain to bilateral shoulders PRN Tylenol and scheduled gabapentin effective. 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 Good appetite noted. Safety maintained. . Discharge Information Case Management Discharge Plan : Case Management Discharge Plan Data 01/08/2023 15:33 EDT Discharge Level of Care at Discharge Home/Alf/Foster Care Pulmonary Rehab Discharge : Pulmonary Rehab Discharge Status 01/11/2023 23:30 EDT CPAP/BiPAP Mask Type Full CPAP/BiPAP Mask Size Medium * Deb Markham RN: PERFORM, SIGN, VERIFY, MODIFY, SIGN Event Display: Progress Note Hospital Authored Date: [id number] Patient: ALEAH ADAM Age: 72 years Sex: Female : 1950 Associated Diagnoses: None Author: Deb Markham RN Findings Problem Related to Alteration in Gastrointestinal : Alteration in Gastrointestinal Func/new 01/13/2023 1:00 EDT Alteration in GI status Related to C Diff, Other: abd pain N/V, r/o cdiff Goals & Outcomes, Gastrointestinal Establish a regular pattern of elimination for pt, Nutritional intake is adequate for metabolic needs, Pt will achieve normal/improved fluid balance, Pt will have a bowel movement prior to discharge Interventions, Gastrointestinal Assess/monitor abdomen for distention, tenderness, Assess/monitor bowel pattern, bowel sounds, flatus, Assess/monitor number of bowel movements, Assess/monitor color, quantity, quality, consistency of stoo, Assess/monitor pt for nausea, vomiting, Assess/monitor intake & output, Assess if pt tolerating diet, Teach/encourage deep breath & cough exercises, Isolation as per policy Goals/Interventions, Gastrointestinal Yes Gastrointestinal, Problem Start 01/11/2023 13:42 Reviewed plan with, Gastrointestinal Patient Patient Progression, Gastrointestinal Pt progressing according to plan . Nursing Data Vital Signs : VITAL SIGNS SECTION 01/12/2023 21:58 EDT Temperature 97.7 DegF Temperature Route Oral Pulse Rate 92 bpm H Respiratory Rate 18 br/min Systolic Blood Pressure 140 mm Hg H Diastolic Blood Pressure 68 mm Hg Blood pressure sites Arm, right Mean Arterial Pressure 92 mm Hg Pulse Pressure 72 mm Hg Oxygen Saturation 92 % L Mode of Delivery (Oxygen) Room air 01/12/2023 20:30 EDT Early Warning Score 7.00 01/12/2023 20:30 EDT Early Warning Score 7.00 01/12/2023 20:23 EDT Pulse Rate 72 bpm Respiratory Rate 18 br/min Systolic Blood Pressure 162 mm Hg H Diastolic Blood Pressure 73 mm Hg . Narrative/Incidental P: Alteration in gastrointestinal r/t diarrhea I: see above interventions E: pt is aox3, bedfast. continue on contact precautions to r/o c.diff infection, awaiting stool specimen collection. no BM so far. denies nausea or vomiting. abdomen round, soft, non tender, +bs x4. chronic rai cath in place for neurogenic bladder, patent and draining clear yellow urine, statlockreplaced. rai cath care completed. POC= 236, received 68ux lantus. reports pain to bilateral shoulders, w/c she stated was chronic for her, prn tylenol administered w/ good effect. +ocasional non productive cough, prn robitussin administered. refused cpap this shift, states she is unable to tolerate d/t cough, requestedand placed on O2 via nc @ 2lpm for sleep comfort. callbell is within reach. closely monitored. . Discharge Information Case Management Discharge Plan : Case Management Discharge Plan Data 01/08/2023 15:33 EDT Discharge Level of Care at Discharge Home/Alf/Foster Care Pulmonary Rehab Discharge : Pulmonary Rehab Discharge Status 01/11/2023 23:30 EDT CPAP/BiPAP Mask Type Full CPAP/BiPAP Mask Size Medium * Karnia Murrieta MD: MODIFY, MODIFY, MODIFY, MODIFY, PERFORM Event Display: Progress Note Hospital Authored Date: Patient: ??ALEAH ADAM ? Age:??72 Years?Sex:??Female?:??1950?? Subjective ?? awake, reports she feels a little better c/w yesterday no further vomiting; had 8 episodes of diarrhea, then it seemed to stop she mentions that she usually deals with constipation afebrile ? Review of Systems Objective Vital Signs?? Temperature: 97.6 DegF (01/12/23 07:00:00) Temperature Route: Oral (01/12/23 07:00:00) Pulse Rate: 69 bpm (01/11/23 21:57:00) Heart Rate Monitored: 58 bpm (01/12/23 07:00:00) Respiratory Rate: 18 br/min (01/12/23 07:00:00) Systolic Blood Pressure: 133 mm Hg (01/12/23 07:00:00) Diastolic Blood Pressure:??90 mm Hg??High (01/12/23 07:00:00) Blood pressure sites: Arm, right (01/12/23 07:00:00) Mean Arterial Pressure: 99 mm Hg (01/11/23 21:57:00) Pulse Pressure: 43 mm Hg (01/12/23 07:00:00) Oxygen Saturation: 98 % (01/12/23 07:00:00) Liters per Minute: 2 L/min (01/11/23 14:37:00) Mode of Delivery (Oxygen): Room air (01/12/23 07:00:00) FiO2: 2 % (01/11/23 23:30:00) Early Warning Score: 7 (01/12/23 08:17:59) ? Physical Exam General:??alert, very pleasant, chronically ill, but not in acute distress MMM; no epistaxis Resp non labored, on room air, sat 98% w/o rhonchi/wheeze HR 60s no JVD noted Abd is soft, somewhat distended (she said this is normal), non tender, without peritoneal signs Ext warm/chronic stasis changes Rai draining clear yellow urine No new focal deficits apparent; no seizure activity observed calm and pleasant, though fatigued Results ??reviewed Assessment/Plan This is a very nice 72 yo woman with complex hx including chronic diastolic CHF, HTN, and neurogenic bladder, who presented to the ED afte rmultiple episodes of diarrhea, with poor po intake, nausea,??and hyponatremia. She is hemodynamically stable. ?? Multiple episodes of diarrhea ??Etiology-current differentials are potentially IBS given that patient had prolonged episode of constipation since last admission until yesterday when she had a large bowel movement followed by episodes of diarrhea, other differentials are infectious diarrhea given the elevated white cell count ??White cell count elevated at 17.3, will check for C. difficile/enteric PCR panel, continue on C. difficile isolation ??Gentle hydration with normal saline (mild hyponatremia), monitor electrolytes and replace accordingly ??C. difficile/enteric PCR ordered/pending?? she asked if we can also order ova and parasites? Mild hyponatremia most likely hypovolemic from the diarrhea, received gentle IV fluids now tolerating po, so Iv fluids stopped recheck labs in AM ?? Chronic diastolic heart failure ??Home Lasix 80 mg daily??on hold-- was volume depleted??at presentation have stopped IV fluids; reassess volume status tomorrow ?? Neurogenic bladder Continue oxybutynin, on Rai catheter She has been afebrile, and had only 12 WBC in urine, which is not very high in setting of chronic catheter the catheter has been exchanged; will hold off on further antibiotics, as her chief complaint was diarrhea, and c.diff is pending monitor clinically ?? Essential hypertension ??Home lisinopril, Lasix currently on hold, potentially can be resumed tomorrow ??Continue metoprolol ?? Hyperlipidemia--??Continue simvastatin ?? History of atrial fibrillation currently in normal sinus rhythm Rate controlled-continue metoprolol tartrate 50 mg twice daily Anticoagulation-Eliquis ?? ERICKA/OHS/COPD ??Uses CPAP nightly with 2 L oxygen ??Continue ?? Diabetes mellitus type 2 with peripheral neuropathy ??Continue home Lantus of 68 units daily, lispro sliding scale, POCT AC/at bedtime, adjust insulin accordingly ??Continue home gabapentin ?? CODE STATUS-full code ?? DVT prophylaxis-Eliquis ? Note * Lainey Scherer RN: PERFORM Event Display: Discharge/Transfer Note Hospital Authored Date: Nursing Discharge Note Entered On: 01/13/2023 18:12 EDT Performed On: 01/13/2023 18:10 EDT by Lainey Scherer RN Nursing Discharge Note 2 Discharge Time : 01/13/2023 17:40 EDT Discharge Level of Care at Discharge : Home/Alf/Foster Care Patient Left Unit Via : Ambulance Patient Accompanied Off Unit with : Ambulance/Chair Van Personnel Handover Given to Transport Personnel : Yes DC Instructions Provided & Signed by Pt : Yes Patient Understands D/C Instructions : Yes Verbalized Understanding of D/C Plan By : Patient Patient Instructions Discharge Signed : Yes Discharge Comments : POC 290 at supper, patient ate all of supper and covered with 6 units of lispro insulin Did Pt have Specialty Bed or Wound Vac : No Lainey Scherer RN - 01/13/2023 18:10 EDT * Karina Murrieta MD: MODIFY, PERFORM, MODIFY, MODIFY, MODIFY, MODIFY, MODIFY, MODIFY, MODIFY Event Display: Discharge/Transfer Note Hospital Authored Date: [id number] Patient: ??ALEAH ADAM ? Age:??72 Years?Sex:??Female?:??1950?? Patient Information Discharge Location: [facility] Primary Care Physician: Cherise Hamm MD Admit Date/Time: 01/11/23 15:35 Discharge Disposition Discharge Disposition: Home, with [employer] services?? Discharge Diagnosis Gastrointestinal symptom (R19.8) Diarrhea, resolved ? _ Discharge Medications Acetaminophen (acetaminophen 325 mg oral tablet)?650?Milligram?By Mouth?4 times a day?as needed?for 10?Days?or Temperature Greater than 100.5not to exceed 4000 mg/day?Pain , Mild Albuterol (albuterol CFC free 90 mcg/inh inhalation [...] 81 mg oral delayed release tablet)?1?tab(s)?81?Milligram?By Mouth?Daily Docusate-Senna (docusate-senna 50 mg-187 mg oral tablet)?2?tab(s)?By Mouth?Daily at bedtime?as needed?Constipation?for 30?Days dulaglutide (Trulicity Pen 0.75 mg/0.5 mL subcutaneous [...] injection)?See Instructions?As directed per sliding scale.100-150 - [id number] - 5 [id number]- 7 [id number]- 9 [id number]- 11units> 350 - 13 units and call [...] 1 TABLET BY MOUTH EVERYDAY AT BEDTIME Polyethylene Glycol 3350 ([id number] oral powder for reconstitution)?17?gram?By Mouth?Daily?as needed?Constipation?for 14?Days Simvastatin (simvastatin 40 mg oral tablet)?40?Milligram?1?tablet?By Mouth?Daily at bedtime ? Medications Started Miralax PRN docu-senna PRN acetaminophen PRN Medications Discontinued no change to existing home meds Allergies Allergies ?(Active and Proposed Allergies Only) Silvadene? (Severity: Unknown severity, Onset: Unknown) ?Reactions: unsure, skin alicea ? PCP Follow-Up/Heads-Up Ongoing close followup needed. Because of pt's day program schedule, she is not home-bound, so VNA could not be set up. Pt's daughter said there are a lot of [employer] hours at this time, and they are working on getting additional help. They felt that pt has adequate support at home at this time, and benefits greatly from the day program ?? Future Appointments Monday 10:30 AM EDT ?? With: Ari MCDUFFIE Burton A Where: [facility] [place] [address]- Status: Pending Objective This is a very nice 72 yo woman with complex hx including chronic diastolic CHF, HTN, and neurogenic bladder, who presented to the ED with recurrent episodes of diarrhea and hyponatremia. She is hemodynamically stable,??and has not had further diarrhea since she was admitted. Thus,??after 2 days, the isolation precautions and c.diff??testing were??discontinued, as she??does not appear to have an ongoing infectious diarrhea.?? She reports that the diarrhea (8 episodes) started right after she had a gigantic stool. Perhaps the diarrhea was related to a transient obstruction. In any case, it has resolved, and she has been eating well, without nausea or vomiting. She is eager to??go home; RAVEN w ill arrange home care??(VNA), and transportation.??Patient and her family can continue??to look into additional [employer] hours??as well, but case mgmt cannot set that up from the hospital.? Multiple episodes of diarrhea-- resolved?? No further GI complaints Sent pt with Rx for PRN??bowel regimen, as she has tended to have constipation in past ?? Mild hyponatremia resolved. Suspect she was dehydrated, after poor intake other than water at home, and diarrhea/N/V.She received IV fluids, which were stopped 01/12, and is eating/drinking well. Most recent Na 134.? Chronic diastolic heart failure Appears euvolemic. Resume home regimen including lisinopril and lasix at home ?? Neurogenic bladder Continue oxybutynin, has Rai catheter Doubt infection. She has been afebrile, and had only 12 WBC in urine, which is not very high in setting of chronic catheter, and culture unremarkable the catheter has been exchanged monitor clinically ?? Essential hypertension ??Home lisinopril, Lasix currently can be resumed tomorrow ??Continue metoprolol ?? Hyperlipidemia--??Continue simvastatin ?? History of atrial fibrillation currently in normal sinus rhythm Rate controlled-continue metoprolol tartrate 50 mg twice daily Anticoagulation-Eliquis ?? ERICKA/OHS/COPD She was??Rx'd??IVAPS nightly at home; in hospital, she did not like the CPAP here, and requested just 2 L oxygen-- advised this is not equivalent to NIPPV ??Continue IVAPS at home ?? Diabetes mellitus type 2 with peripheral neuropathy ??Continue home Lantus of 68 units daily, with home lispro ??Continue home gabapentin ?? CODE STATUS-full code ?? DVT prophylaxis-Eliquis ?? Because of pt's day program schedule, she is not home-bound, so VNA could not be set up. Pt's daughter said there are a lot of [employer] hours at this time, and they are working on getting additional help. They felt that pt has adequate support at home at this time, and benefits greatly from the day program ?? Vital Signs?? Temperature: 97.5 DegF (01/13/23 05:38:00) Temperature Route: Oral (01/13/23 05:38:00) Pulse Rate: 62 bpm (01/13/23 08:32:00) Respiratory Rate: 18 br/min (01/13/23 10:03:00) Systolic Blood Pressure: 137 mm Hg (01/13/23 08:32:00) Diastolic Blood Pressure: 63 mm Hg (01/13/23 08:32:00) Blood pressure sites: Arm, right (01/13/23 05:38:00) Mean Arterial Pressure: 72 mm Hg (01/13/23 05:38:00) Pulse Pressure: 96 mm Hg (01/13/23 05:38:00) Oxygen Saturation: 98 % (01/13/23 05:38:00) Liters per Minute: 2 L/min (01/13/23 05:38:00) Mode of Delivery (Oxygen): Nasal cannula (01/13/23 05:38:00) Early Warning Score: 3 (01/13/23 10:03:45) ? . Physical Exam General:??alert, pleasant, fatigued, but not in acute distress; eager to go home MMM; no epistaxis; has L eye prosthesis Resp non labored, w/o wheezing/rhonchi HR 60s no JVD noted Abd soft, non tender, without peritoneal signs Ext warm/chronic stasis changes Rai draining clear yellow urine No new focal deficits apparent; no seizure activity or tremor observed calm and cheerful Pending Results Add On Lab Order ordered on 01/11/2023 Ova and Parasite Exam ordered on 01/12/2023 Follow-Up Appointments Added Follow Up ?Time Frame ?Comments Cherise Hamm MD?1 week Please return if you have fever, chest pain, trouble breathing, neck pain, vision changes, or any other worrisome symptoms. Please followup with all of your usual doctors. Return if you have bleeding, fever, cannot eat/drink, or have any other worrisome symptoms Do not take naprosyn, Aleve, Motrin, ibuprofen or other similar medications. OK to take Tylenol, aka acetaminophen. Post Discharge Care ?? Because of pt's day program schedule, she is not home-bound, so VNA could not be set up. Pt's daughter said there are a lot of [employer] hours at this time, and they are working on getting additional help. They felt that pt has adequate support at home at this time, and benefits greatly from the day program Results Microbiology ?? COVID-19 (Novel Coronavirus), Rapid PCR?? Completed?? Source: Nasal Body Site: Nose Collected Dt/Tm: 01/11/2023 07:28 Last Updated Dt/Tm: 01/11/2023 10:21 ? Test Name Test Result Date/Time WBC 6.1 k/mm3 01/13/2023 00:15 EDT WBC 8.5 k/mm3 01/12/2023 00:04 EDT Hgb 12.4 Gm/dL 01/13/2023 00:15 EDT Platelet Count 173 k/mm3 01/13/2023 00:15 EDT Sodium 134 mmol/L 01/13/2023 00:15 EDT Potassium 4.4 mmol/L 01/13/2023 00:15 EDT Glucose, POC 148 mg/dL 01/13/2023 08:27 EDT BUN 12 mg/dL 01/13/2023 00:15 EDT Creatinine-Blood 0.5 mg/dL 01/13/2023 00:15 EDT Bilirubin, Total 0.4 mg/dL 01/13/2023 00:15 EDT 40_ minutes spent on discharge * Gilmer FARNSWORTH, Lainey Ahuja: PERFORM Event Display: Patient Education/Instruction Authored Date: [id number] Inpatient Adult Discharge Instructions [address] [address] Name: ALEAH ADAM : 1950 Visit: 01/11/2023 15:35:00 Current Date: 01/13/2023 17:02 Account: [id number] Inpatient Adult Discharge Instructions We would like [...] and their families. Surveys are administered by [employer] ?? If further treatment with your primary care physician or another doctor is recommended, it is important for you to keep the appointment. Call your primary care physician or return to the Emergency Department immediately if your condition worsens, fails to improve, or new symptoms develop. If you need to find a doctor, you can call [facility] [employer] [facility] for a referral at [phone] or toll free at [phone]) or log in to [email or web address].. ?? You can view and manage your care through the patient portal or by using a health care shaneka of your choosing. [employer] is a website that allows you to securely view your medical information including your hospital discharge summary, office visit summaries, medications and follow-up visits. You can also request appointments, renew medications, and request access to your medical information using a health care shaneka of your choosing, or just ask a question. You can enroll at [email or web address] or register during your next office visit. You have been discharged from [facility], Patient Care Unit: S3. If you have any questions regarding these instructions after you leave, please call us and we will be happy to assist you. [facility] Your Care Team Attending Physician Karina Murrieta MD Discharging Providers Karina Murrieta MD Reason for Admission From home, reports diffuse abd pain for a few hours with N/V/D Your Diagnosis Gastrointestinal symptom Tests Performed Below is a partial list of the tests performed during your hospitalization. You may have had other tests and procedures not included in this list. Please discuss all test results with your provider. Alk Phos ALT AST BUN CBC w/ Differential Comprehensive Metabolic Panel COVID-19 (Novel Coronavirus), Rapid PCR Creatinine Electrolytes Glucose Level GLUCOSE POC Lipase Na Urine Stool for WBC Total Bilirubin UREA NITROGEN, URINE MG/DL Urinalysis w/hold for Urine Culture Urine Chloride Urine Creatinine Urine K Urine Osmolality CT Abd/Pelvis W/ IV Contrast Only XR Chest 2 Views Frontal and Lat Primary Care Provider Cherise Hamm MD Advance Directive Health Care Proxy on File Yes - Health Care Proxy Yes - [facility]OL[facility] Discharge Vitals Temperature: 97.5 DegF Height: 167 cm Pulse Rate: 62 bpm Weight: 121.6 kg Respiratory Rate: 18 br/min Body Mass Index:??43.6 kg/m2??Critical Systolic Blood Pressure:??160 mm Hg??High Body surface area: 2.38 Diastolic Blood Pressure: 60 mm Hg ?? Oxygen Saturation: 95 % ?? Studies Pending All tests and labs ordered during this hospital stay have been completed unless listed below. Please discuss all pending results with your provider listed above in these instructions. ?? Add On Lab Order Ova and Parasite Exam What to do next Instructions From Your Doctor Discharge Orders Scheduled Follow-Up Appointments Monday 10:30 AM EDT ?? With: Burton Chapman DO Where: [facility] [address] [place] [address]- Status: Pending You Need to Schedule the Following Appointments Follow Up with??Cherise Hamm MD When:??Within 1 week Where: [address] [place] [phone]- Business (1) Follow Up with??Please return if you have fever, chest pain, trouble breathing, neck pain, vision changes, or any other worrisome symptoms. Follow Up with??Please followup with all of your usual doctors. Return if you have bleeding, fever,cannot eat/drink, or have any other worrisome symptoms Follow Up with??Do not take naprosyn, Aleve, Motrin, ibuprofen or other similar medications. OK to take Tylenol, aka acetaminophen. Discharge Medications ALEAH ADAM :1950 Visit Date:01/11/2023 Medications: Please continue your medications until treatment is completed or stopped by your provider. Medications not listed below should be discontinued. Discuss any questions related to medications with your provider. What How Much When Instructions Next Dose New Acetaminophen (acetaminophen 325 mg oral tablet) 650 Milligram Oral 4 times a day as needed for Pain , Mild Duration: 10 Days or Temperature Greater than 100.5 not to exceed 4000 mg/ day ?? Pickup at [facility]/pharmacy #[id number] take as directed New Docusate-Senna (docusate-senna 50 mg-187 mg oral tablet) 2 tab(s) Oral Daily at Bedtime as needed for Constipation Duration: 30 Days Pickup at [facility]/pharmacy #[id number] take as directed New Polyethylene Glycol 3350 ([id number] oral powder for reconstitution) 17 gram Oral Daily as needed for Constipation Duration: 14 Days Pickup at [facility]/pharmacy #2070 take as directed Unchanged Albuterol (albuterol 0.083% inhalation solution) 3 Milliliter Nebulized inhalation Every 6 hours as needed for Wheezing/Shortness of Breath ICD J45.909 ?? as needed every 6 hours for wheezing/ ??shortness of breath ?? take as directed Unchanged Albuterol (albuterol CFC free 90 mcg/ inh inhalation aerosol) 1 puff(s) Inhalation 4 times a day as needed for as needed for wheezing as needed for shortness of breath/ wheezing use with spacer chamber Please give spacer chamber to patient ?? take as directed Unchanged apixaban (Eliquis 5 mg oral tablet) 1 tab(s) Oral Twice a day next dose due 01/13 at 9pm Unchanged Aspirin (Aspirin Low Dose 81 mg oral delayed release tablet) 1 tab(s) Oral Daily next dose due 01/14 at 9am Unchanged dulaglutide (Trulicity Pen 0.75 mg/ 0.5 mL subcutaneous solution) 0.5 Milliliter Subcutaneous Injection Every week resume home schedule Unchanged Ergocalciferol (Vitamin D2 50,000 intl units (1.25 mg) oral capsule) 1 capsule Oral Every 7 days resume home schedule Unchanged fluticasone-vilanterol (Breo Ellipta 200 mcg-25 mcg/ inh inhalation powder) 1 puff(s) Inhalation Daily next small due 01/14 at 9am Unchanged Furosemide (Lasix 80 mg oral tablet) 1 tab(s) Oral Daily Duration: 30 Days next dose due 01/14 at 9am Unchanged Gabapentin (gabapentin 300 mg oral capsule) 1 capsule Oral Twice a day next dose due 01/13 at 9pm Unchanged Insulin Glargine (Lantus Solostar Pen 100 units/ mL subcutaneous solution) INJECT 68 UNITS UNDER THE SKIN DAILY ?? next dose due 01/13 at 9pm Unchanged Insulin Lispro (Humalog Kwik Pen 100 units/ mL subcutaneous injection) See instructions As directed per sliding scale. 100-150 - 3units 151-200 - 5 units 201-250- 7 units 251-300- 9 units 301-350- 11 units > 350 - 13 units and call doctor ?? take as directed Unchanged Lisinopril (lisinopril 10 mg oral tablet) 1 tab(s) Oral Daily next dose due 01/14 at 9am Unchanged Metformin (metFORMIN 850 mg oral tablet) 1 tab(s) Oral Daily in the morning next dose due 01/14 at 9am Unchanged Methenamine (methenamine hippurate 1 gm oral tablet) 1 tab(s) Oral Twice a day Duration: 5 Days next dose due 01/13 at 9pm Unchanged Metoprolol (Metoprolol Tartrate 50 mg oral tablet) 1 tab(s) Oral Twice a day next dose due 01/13 at 9pm Unchanged Montelukast (Singulair 10 mg oral tablet) 1 tab(s) Oral Daily in PM next dose due 01/13 at 9pm Unchanged Ocular Lubricant (ocular lubricant - solution) 2 Drops Left eye Twice a day as needed for Other Dryness. ?? take as directed Unchanged Oxybutynin (oxybutynin 5 mg/ 24 hours oral tablet, extended release) TAKE 1 TABLET BY MOUTH EVERY DAY AT BEDTIME ?? next dose due 01/13 at 9pm Unchanged Simvastatin (simvastatin 40 mg oral tablet) 1 tab(s) Oral Daily at Bedtime next dose due 01/13 at 9pm Pharmacy Information [facility]/pharmacy #[id number]: [address], [place] [id number] [phone] Test Results Below is a partial list of the most recent Laboratory test results done prior to this discharge. You may have had other tests and procedures not included in this list. Please discuss all test resultswith your provider. Est Creatinine Clearance - 95.67 mL/min (01/13/2023) Alk Phos (01/11/2023) ???Alkaline Phosphatase - 191 units/L ALT (01/11/2023) ???ALT (SGPT) - 17 units/L AST (01/11/2023) ???AST (SGOT) - 18 units/L BUN (01/11/2023) ???BUN - 21 mg/dL CBC w/ Differential (01/13/2023) ???WBC - 6.1 k/mm3???RBC - 4.61 m/mm3???Hgb - 12.4 Gm/dL???Hct - 39.9 %???MCV - 86.6 femtoliters???MCH - 26.9 pg???MCHC - 31.1 g/dL???Platelet Count - 173 k/mm3???RDW-SD - 48.3 femtoliters???MPV - 11.4 femtoliters???Nucleated RBC (Automated) - 0.0 #/100 WBC'S???Abs. NRBC - 0.0 k/mm3???Abs. Neut - 3.6 k/mm3???Abs. Lymph - 1.5 k/mm3???Abs. [place] - 0.6 k/mm3???Abs. Eo - 0.3 k/mm3???Abs. Baso - 0.0 k/mm3???Neut % - 60.3 %???Lymph % - 24.1 %???[place] % - 9.9 %???Eos % - 5.1 %???Baso % - 0.3 %???Imm Gran - 0.3 %???Abs. Imm Gran - 0.0 k/mm3 Comprehensive Metabolic Panel (01/13/2023) ???Sodium - 134 mmol/L???Potassium - 4.4 mmol/L???Chloride - 94 mmol/L???Bicarbonate Level - 30 mmol/L???Anion Gap - 10???Glucose Level - 173 mg/dL???BUN - 12 mg/dL???Creatinine-Blood - 0.5 mg/dL???Estimated GFR Creatinine - 99 ML/MIN/1.73 M2???Calcium - 8.9 mg/dL???Protein, Total - 6.2 Gm/dL???Albumin - 3.8 Gm/dL???AG Ratio - 1.6???Alkaline Phosphatase - 144 units/L???AST (SGOT) - 15 units/L???ALT (SGPT) - 21 units/L???Bilirubin, Total - 0.4 mg/dL COVID-19 (Novel Coronavirus), Rapid PCR (01/11/2023) ???COVID-19 by RT-PCR - NEGATIVE Creatinine (01/11/2023) ???Creatinine-Blood - 0.4 mg/dL???Estimated GFR Creatinine - 103 ML/MIN/1.73 M2 Electrolytes (01/11/2023) ???Sodium - 130 mmol/L???Potassium - 4.4 mmol/L???Chloride - 91 mmol/L???Bicarbonate Level - 25 mmol/L???Anion Gap - 14 Glucose Level (01/11/2023) ???Glucose Level - 297 mg/dL GLUCOSE POC (01/13/2023) ???Glucose, POC - 228 mg/dL Lipase (01/11/2023) ???Lipase - 14 units/L Na Urine (01/11/2023) ? ?Sodium, Urine Random - <20 mmol/L Stool for WBC (01/11/2023) ???WBC Stool - NONE SEEN Total Bilirubin (01/11/2023) ???Bilirubin, Total - 0.6 mg/dL UREA NITROGEN, URINE MG/DL (01/11/2023) ???Urea Nitrogen, Urine Random - 360.0 mg/dL Urinalysis w/hold for Urine Culture (01/11/2023) ???Appear/Color, Urine - LIGHT YELLOW???Specific [place], Urine - 1.008???pH, Urine - 6.0???Albumin, Urine - TRACE???Glucose, Urine - NEGATIVE???Ketones, Urine - NEGATIVE???Bilirubin, Urine - NEGATIVE???Hemoglobin, Urine - 3+???Nitrite, Urine - NEGATIVE???Leukocyte, Urine - 2+???Urobilinogen - EUGENIO L???WBC's, Urine - 12 /HPF???RBC's, Urine - 9 /HPF???Amorphous Crystals - SLIGHT???Mucus - SLIGHT???Hold Urine Culture - Testing available 48 hours from time of collection. Urine Chloride (01/11/2023) ? ?Chloride, Urine Random - <20 mmol/L Urine Creatinine (01/11/2023) ???Creatinine, Urine Random - 35.6 mg/dL Urine K (01/11/2023) ???Potassium, Urine Random - 14.1 mmol/L Urine Osmolality (01/11/2023) ???Osmolality, Urine Random - 244 mOsm/kg Allergies (NKA means No Known Allergies) Silvadene??(skin [...] Belongings I fully understand and agree that [facility] accepts no responsibility for all my [...] patient Date for Pt to Sign Valuables/Belongings: 01/13/23 15:46:00 ?? Other Discharge Information ?? Wound Assessment?? Wound Assessment?? Wound Location I: Toes, left Wound I, Present on Admission: Yes ? Pulmonary Rehab Status?? Pulmonary Rehab Discharge Status?? CPAP/BiPAP Mask Type: Full CPAP/BiPAP Mask Size: Medium Respiratory Rate: 18 br/min ? Common Emergency [...] quit. Please call [facility] [employer] Link at [phone] or [phone] ([phone]) or log in to [email or web address] for referrals to smoking cessation programs. ?? 937 Suicide & Crisis Lifeline is available 30/01 if you or someone you know needs to find a reason to keep living. By calling 811 you'll be connected to a skilled, trained counselor at a crisis center in your area. INPATIENT DISCHARGE INSTRUCTIONS SIGNATURE PAGE ALEAH ADAM Location:[facility] Registration Date and Time:01/11/2023 15:35 EDT Primary Care Physician: Hamm Cherise GONZALEZ, Attending Physician: Karina Murrieta MD, I ALEAH ADAM, have received the above patient education materials/instructions and have verbalized understanding. If ambulance or transport services are being used I further acknowledge being given a choice of service. ?? If you need to contact me, please call me at this number: . Patient/Fiscal Specialist Name: Patient/Fiscal Specialist Signature: Relationship to Patient: Witness Name/Signature: Date: * Karina Murrieta MD: PERFORM, SIGN, VERIFY Event Display: Patient Education Handout Authored Date: [id number] * Lainey Scherer RN: PERFORM Event Display: Patient Education Leaflets Authored Date: [id number] Polyethylene Glycol 3350 Powder For Oral Solution ?? [id number] Polyethylene Glycol 3350 Powder For Oral Solution Brands: ClearLax, Ez2go Osmotic, Gavilax, GentleLax, HealthyLax, Miralax, PureLax Uses For bowel movement. ?? Instructions Mix the medicine with 4-8 oz. (120-240 mL) of water or juice, then drink. Drink the medicine immediately after mixing. This medicine may be taken with or without food. Keep this medicine at room temperature. Protect from moisture and high humidity. Keep the medicine away from heat and light. Frequent or bellhop captain use of laxatives can cause your bowels to depend on them. Do not use laxatives for more than one week unless directed by your doctor. To reduce constipation, eat high fiber foods, drink plenty of water and exercise. Tell your doctor and pharmacist about all your medicines. Include prescription and mhnl-jtj-wpoqzpowvxqwwtbd, vitamins, and herbal medicines. Tell your doctor if symptoms do not get better or if they get worse. ?? Cautions Tell your doctor and pharmacist if you ever had an allergic reaction to a medicine. Do not use the medication any more than instructed. It is unknown if this medicine passes into breast milk. Ask your doctor before . During , this medicine should be used only when clearly needed. Talk to your doctor about the risks and benefits. Do not start or stop any other medicines without first speaking to your doctor or pharmacist. ?? Side Effects The following is a list of some common side effects from this medicine. Please speak with your doctor about what you should do if you experience these or other side effects. ??? bloating ??? diarrhea ??? excess gas ??? nausea ??? stomach upset or abdominal pain Call your doctor or get medical help right away if you notice any of these more serious side effects: ??? severe or persistent abdominal pain ??? severe, watery or bloody diarrhea ??? stomach pain ??? blood in stool A few people may have an allergic reaction to this medicine. Symptoms can include difficulty breathing, skin rash, itching, swelling, or severe dizziness. If you notice any of these symptoms, seek medical help quickly. ?? Extra Please speak with your doctor, nurse, or pharmacist if you have any questions about this medicine. ?? [email or web address] IMPORTANT NOTE: This document tells you briefly how to take your medicine, but it does not tell youall there is to know about it. Your doctor or pharmacist may give you other documents about your medicine. Please talk to them if you have any questions. Always follow their advice. There is a more complete description of this medicine available in [place]inean. Scan this code on your smartphone or tablet or use the web address below. You can also ask your pharmacist for a printout. If you have any questions, please ask your pharmacist. The display and use of this drug information is subject to Terms of Use. Copyright(c) 2022 [employer]. ?? [employer]. All rights reserved. This information is not intended as a substitute for professional medical care. Always follow your healthcare professional's instructions. ?? * Gilmer FARNSWORTH, Lainey Ahuja: PERFORM Event Display: Patient Education Leaflets Authored Date: [id number] Sennosides/Docusate Oral Tablet ?? [id number] Sennosides/Docusate Oral Tablet Brands: Colace w/Sennosides, Laxacin, Senexon S, SENOKOT-S, SenoSol-SS Uses For bowel movement. ?? Instructions Swallow with a full glass (8 oz) of water unless your doctor gives you different instructions. Keep the medicine at room temperature. Avoid heat and direct light. Frequent or care home use of laxatives can cause your bowels to depend on them. Do not use laxatives for more than one week unless directed by your doctor. To reduce constipation, eat high fiber foods, drink plenty of water and exercise. Tell your doctor and pharmacist about all your medicines. Include prescription and jxfg-stk-itgdnomxwubmcdlc, vitamins, and herbal medicines. Tell your doctor if symptoms do not get better or if they get worse. Do not take the medicine more than twice during 24 hours. ?? Cautions Tell your doctor and pharmacist if you ever had an allergic reaction to a medicine. Do not use the medication any more than instructed. Tell the doctor or pharmacist if you are , planning to be , or . ?? Side Effects The following is a list of some common side effects from this medicine. Please speak with your doctor about what you should do if you experience these or other side effects. ??? diarrhea ??? changes in the color of the urine or stool ??? nausea ??? stomach upset or abdominal pain Call your doctor or get medical help right away if you notice any of these more serious side effects: ??? confusion ??? severe, watery or bloody diarrhea ??? dizziness ??? fainting ??? fast or irregular heart beats ??? muscle weakness ??? urinating less often ??? dark urine ??? severe or persistent vomiting A few people may have an allergic reaction to this medicine. Symptoms can include difficulty breathing, skin rash, itching, swelling, or severe dizziness. If you notice any of these symptoms, seek medical help quickly. ?? Extra Please speak with your doctor, nurse, or pharmacist if you have any questions about this medicine. ?? [email or web address] IMPORTANT NOTE: This document tells you briefly how to take your medicine, but it does not tell youall there is to know about it. Your doctor or pharmacist may give you other documents about your medicine. Please talk to them if you have any questions. Always follow their advice. There is a more complete description of this medicine available in [place]. Scan this code on your smartphone or tablet or use the web address below. You can also ask your pharmacist for a printout. If you have any questions, please ask your pharmacist. The display and use of this drug information is subject to Terms of Use. Copyright(c) 2022 [employer]. ?? [employer]. All rights reserved. This information is not intended as a substitute for professional medical care. Always follow your healthcare professional's instructions. ?? * Gilmer FARNSWORTH, Lainey Ahuja: PERFORM Event Display: Patient Education Leaflets Authored Date: [id number] Diarrhea with Uncertain Cause (Adult) ?? [id number] Diarrhea with Uncertain Cause (Adult) Diarrhea is when stools are loose and watery. This can be caused by: ??? Viral infections ??? Bacterial infections ??? Food poisoning ??? Parasites ??? Irritable bowel syndrome (IBS) ??? Inflammatory bowel diseases such as ulcerative colitis, Crohn's disease, and celiac disease ??? Food intolerance, such as to lactose, the sugar found in milk and milk products ??? Reaction to medicines like antibiotics, laxatives, cancer medicines, and antacids Along with diarrhea, you may also have: ??? Abdominal pain and cramping ??? Nausea and vomiting ??? Loss of bowel control ??? Fever and chills ??? Bloody stools In some cases, antibiotics may help to treat diarrhea. You may have a stool sample test which is done to see what is causing your diarrhea, and if antibiotics will help treat it. The results of a stool sample test may take up to 2 days. The healthcare provider may not give you antibiotics until they have the stool test results. Diarrhea can cause dehydration. This is the loss of too much water and other fluids from the body. When this occurs, you must replace those body fluids. This can be done with oral rehydration solutions. Oral rehydration solutions are available at drugstores and grocery stores without a prescription. Sports drinks are not the best choice if you are very dehydrated. They usually have too much sugarand not enough electrolytes. Home care Follow all instructions given by your healthcare provider. Rest at home for the next 24 hours, or until you feel better. Avoid caffeine, tobacco, and alcohol. These can make diarrhea, cramping, and pain worse. If taking medicines: ??? Vcou-qgn-tlxbsjw nausea and diarrhea medicines are generally OK unless you experience fever or blood in the stool. Check with your healthcare provider first in those circumstances. ??? You may use acetaminophen or nonsteroidal anti-inflammatory drugs (NSAIDs) such as ibuprofen or naproxen to reduce pain and fever. Don???t use these if you have chronic liver or kidney disease, or ever had a stomach ulcer or gastrointestinal??bleeding. Don't use NSAID medicines if you are already taking one for another condition (like arthritis) or are on daily aspirin therapy (such as for heart disease or after a stroke). Talk with your healthcare provider first. ??? If antibiotics were prescribed, be sure you take them until they are finished. Don???t stop taking them even when you feel better. Antibiotics must be taken exactly as prescribed. To prevent the spread of illness: ??? Remember that washing with soap and clean, running water and using alcohol- based linux network administrator is the best way to prevent the spread of infection. Dry your hands with a single-use towel (like a papertowel). ??? Clean the toilet after each use. ??? Wash your hands before eating. ??? Wash your handsbefore and after preparing food. Keep in mind that people with diarrhea or vomiting should not prepare food for others. ??? Wash your hands after using cutting boards, counter tops, and knives that have been in contact with raw foods. ??? Wash and then peel fruits and vegetables. ??? Keep uncooked meats away from cooked and swzpp-uc-jur foods. ??? Use a food thermometer when cooking. Cook poultryto at least 165??F (74??C). Cook ground meat (beef, veal, pork, aponte) to at least 160??F (71??C). Cook fresh beef, veal, aponte, and pork to at least 145??F (63??C). ??? Don???t eat raw or undercooked eggs (poached or steven side up), poultry, meat, or unpasteurized milk and juices. Food and drinks The main goal while treating vomiting or diarrhea is to prevent dehydration. This is done by takingsmall amounts of liquids often. ??? Keep in mind that liquids are more important than food right now. ??? Drink only small amounts of liquids at a time. ??? Don???t force yourself to eat, especially if you are??having cramping, vomiting, or diarrhea. Don???t eat large amounts at a time, even if you are hungry. ??? If you eat, avoid fatty, greasy, spicy, or fried foods. ??? Don???t eat dairy foods or drink milk if you have diarrhea.??These can make??diarrhea worse. During the first 24 hours you can try: ??? Oral rehydration solutions.?? Sports drinks may be used if you are not too dehydrated and are otherwise healthy. ??? Soft drinks without caffeine ??? Alyx zulema ??? Water (plain or flavored) ??? Decaf tea or coffee ??? Clear broth, consomm??, or bouillon ??? Gelatin, ice pops, or frozen fruit juice bars The second 24 hours, if you are feeling better, you can add: ??? Hot cereal, plain toast, bread, rolls, or crackers ??? Plain noodles, rice, mashed potatoes, chicken noodle soup, or rice soup ??? Applesauce, unsweetened canned fruit (no pineapple) ??? Bananas As you recover: ??? Limit fat intake to less than 15 grams per day. Don???t eat margarine, butter, oils, mayonnaise, sauces, gravies, fried foods, peanut butter, meat, poultry, or fish. ??? Limit fiber. Don???t eat raw or cooked vegetables, fresh fruits except bananas, or bran cereals. ??? Limit caffeine and chocolate. ??? Limit dairy. ??? Don???t use spices or seasonings except salt. ??? Go backto your normal diet over time, as you feel better and your symptoms improve. ??? If the symptoms come back, go back to a simple diet or clear liquids. ?? Follow-up care Follow up with your healthcare provider, or as advised. If a stool sample was taken or cultures were done, call the healthcare provider for the results as instructed. ?? Call 911 Call 911 if you have any of these symptoms: ??? Trouble breathing ??? Confusion ??? Extreme drowsiness or trouble walking ??? Loss of consciousness ??? Rapid heart rate ??? Chest pain ??? Stiff neck ??? Seizure ?? When to get medical advice Call your healthcare provider right away if any of these occur: ??? Abdominal pain that gets worse ??? Constant lower right abdominal pain ??? Continued vomiting and inability to keep liquids down ??? Diarrhea more than 5 times a day ??? Blood in vomit or stool ??? Dark urine or no urine for 8 hours, dry mouth and tongue, tiredness, weakness, or dizziness ??? Drowsiness ??? New rash ??? You don???t get better in 2 to 3 days ??? Fever of 100.4??F (38??C) or higher, or as advised by your provider ?? Last Reviewed Date: 2021 ?? 9340-2618 [employer]. All rights reserved. This information is not intended as a substitute for professional medical care. Always follow your healthcare professional's instructions. ?? Patient Care team information Care Team Personnel Name: Alvaro Oliver RN Position: [facility] RN Member Role: Primary Care Nurse Name: Tala Curiel LPN Position: [facility] RN Member Role: Primary Care Nurse Name: Tk Iqbal RN Position: [facility] RN Member Role: Primary Care Nurse Name: Jovanny Stuart RN Position: [facility] RN Member Role: Primary Care Nurse Name: Delaney De Los Santos RN Position: [facility] SN RN Member Role: Primary Care Nurse Name: Michelle Ricketts Position: [facility] RN Member Role: Primary Care Nurse Name: Cande Kennedy RN Position: [facility] AMB Nurse Member Role: Primary Care Nurse Name: Batool Summers Position: [facility] RN Member Role: Primary Care Nurse Name: Lainey Walker LPN Position: [facility] RN Member Role: Primary Care Nurse Name: Yanira Trevizo Position: [facility] RN Member Role: Primary Care Nurse Name: Batool Cervantes RN Position: [facility] RN Member Role: Primary Care Nurse Name: Batsheva Bernard RN Position: [facility] RN Member Role: Primary Care Nurse Name: Fern Franklin LPN Position: [facility] RN Member Role: Primary Care Nurse Name: Vasyl Catherine RN Position: [facility] RN Member Role: Primary Care Nurse Name: Eve Masters RN Position: [facility] RN Member Role: Primary Care Nurse Name: Jenelle Jay RN Position: [facility] RN Member Role: Primary Care Nurse Name: Elizabeth Barrios RN Position: [facility] RN Member Role: Primary Care Nurse Name: Jignesh Stoner RN Position: [facility] RN Member Role: Primary Care Nurse Name: Kady Garcias RN Position: [facility] RN Member Role: Primary Care Nurse Name: Rosy Arriaza RN Position: [facility] RN Member Role: Primary Care Nurse Name: Cherise Hamm MD Position: [facility] Outreach Member Role: PCP Address: Address: [address] [place] [id number]- Name: Chyna Aguilar RN Position: [facility] RN Member Role: Primary Care Nurse Address: Address: [address] [place] [address]- [place] Name: John Guaman RN Position: [facility] RN Member Role: Primary Care Nurse Name: Rocio Andrade RN Position: [facility] RN Member Role: Primary Care Nurse Name: *Ziyad YOUNGBLOOD Attending Position: [facility] ED Medicine MD Name: Janell Llamas RN Position: [facility] ED RN W/OE and Tasks Member Role: Patient Care Provider Address: Address: [address] [place] [address] [facility] [place] [address]- Name: Amy Pulido Position: [facility] ED TA [facility] Member Role: Maintenance Of Way Supervisor Care Team Related Persons Name: STEPHANI ADAM Address: [address] [place] [address] Name: NATHEN LLOYD
--- OUTSIDE RECORDS SUMMARY | 2024-01-06 09:19 | XMS_ITS | Continuity of Care Document ---
Author Organization [facility] ter Address [address] [place] [id number]- Care Team Providers Care Offender Job Retention Specialist Name Role Phone Hansel GONZALEZ, Cherise Bolden Primary Care Physician [phone] Encounter [facility] Date(s): 02/24/22 - 02/25/[address] [address] Encounter Diagnosis UTI (urinary tract infection)(Final) - 02/23/[address](Final) - 02/23/22 Discharge Disposition: A-D/C Home Attending Physician: Nelly Hathaway MD Admitting Physician: Adam Darling MD Referring Physician: Not on Staff, Referring [...] 0 Refills, Maintenance, 11/22/21 9:22:00 EDT, Tablet, [facility]/pharmacy #[id number], Partial fill upon patient [...] 0 Refills, Maintenance, 11/18/21 8:23:00 EDT, Nasal [place], [id number], Partial fill upon patient request [...] oral capsule 300 mg, Capsule, By Mouth, 02/25/22 9:00:00 EDT Start Date: 02/25/22 Stop Date: 02/25/22 Status: Completed insulin lispro 100 u/ml subcutaneous [...] oral tablet 5 mg, Tablet, By Mouth, 02/25/22 9:00:00 EDT Start Date: 02/25/22 Stop Date: 02/25/22 Status: Completed metoprolol 50 mg oral tablet 50 mg, Tablet, By Mouth, 02/25/22 9:00:00 EDT Start Date: 02/25/22 Stop Date: 02/25/22 Status: Completed Metoprolol Tartrate 50 mg oral [...] Reports Name Date Urine Culture (URINE CULTURE) 02/23/22 Microbiology Reports TEST:Urine Culture STATUS:Auth (Verified) BODY SITE: SOURCE:URINE COLLECTED DATE/TIME:02/23/22 12:11 PM Urine Culture SPECIMEN DESCRIPTION : URINE SPECIAL REQUESTS : NONE CULTURE : Mixed bacterial carlito, indicative of urogenital contamination. REPORT STATUS : FINAL 02/24/2022 Vital Signs Most recent to oldest [Reference Range]: 1 2 3 Height 167 cm (02/24/22 3:27 PM) Weight 114.9 kg (02/24/22 3:27 PM) Oxygen Saturation [94-100 %] 96 % (02/25/22 10:00 AM) 94 % (02/25/22 5:00 AM) 97 % (02/24/22 8:00 PM) Pulse Rate [55-90 bpm] 60 bpm (02/25/22 10:00 AM) 69 bpm (02/25/22 9:01 AM) 74 bpm (02/25/22 5:00 AM) Body Mass Index [18.5-24.99] 41.2 *>HHI* (02/24/22 3:27 PM) Blood Pressure [90-138/55-84 mm Hg] 150/61mm Hg *H* (02/25/22 10:00 AM) 150/68mm Hg *H* (02/25/22 9:01 AM) 150/68mm Hg *H* (02/25/22 9:01 AM) Respiratory Rate [16-30 br/min] 18 br/min (02/25/22 10:00 AM) 20 br/min (02/25/22 10:00 AM) 20 br/min (02/25/22 9:01 AM) Temperature [96.8-100.4 DegF] 97.5 DegF (02/25/22 10:00 AM) 97.3 DegF (02/25/22 5:00 AM) 98 DegF (02/24/22 8:00 PM) Liters per Minute 2 L/min (02/24/22 12:00 PM) 2 L/min (02/24/22 8:12 AM) 2 L/min (02/24/22 4:00 AM) Mode of Delivery (Oxygen) Room air (02/25/22 10:00 AM) Room air (02/25/22 5:00 AM) Room air (02/24/22 8:00 PM) Blood pressure sites Arm, right (02/25/22 10:00 AM) Arm, right (02/25/22 5:00 AM) Arm, right (02/24/22 8:00 PM) Temperature Route Oral (02/25/22 10:00 AM) Oral (02/25/22 5:00 AM) Oral (02/24/22 8:00 PM) Dry Weight 114.9 kg (02/24/22 3:27 PM) Social History Social History Type Response Smoking Status Former smoker; Tobac co user in household: No entered on: 01/17/17 Sex
[2024-01-06 09:21] LABS: Alanine Aminotransferase 13 U/L (0-31); Albumin Level 3.8 g/dL (3.5-5.0); Alkaline Phosphatase 108 U/L (39-117); Anion Gap 12 (12-20); Aspartate Amino Transferase 16 U/L (5-31); Bilirubin Direct 0.2 mg/dL (0.0-0.5); Bilirubin Total 0.6 mg/dL (0.0-1.0); Blood Urea Nitrogen 13 mg/dL (9-16); Calcium 9.3 mg/dL (8.4-10.2); Carbon Dioxide 39 mmol/L (22-29); Chloride 87 mmol/L (96-108); Estimated Glomerular Filt Rate > 60; Glucose Random 203 mg/dL (60-115); Lipase 8 U/L (8-78); Potassium 3.4 mmol/L (3.3-5.1); Sodium 135 mmol/L (135-145); Total Protein 7.5 g/dL (6.5-8.0)
[2024-01-06 09:28] LABS: Troponin-I High Sensitivity 6.8 ng/L (<3.5-17.0)
[2024-01-06 09:46] LABS: Influenza A PCR NEGATIVE (Negative); Influenza B PCR NEGATIVE (Negative); Resp Syncy Virus RNA Qual PCR NEGATIVE (Negative); SARS COV2 PCR INHOUSE NEGATIVE (Negative)
[2024-01-06] MEDS: iohexoL 350 MG/ML 100 ML INFUS..BTL IV (10:52)
[2024-01-06] MEDS: diphenhydrAMINE HCL 50 MG/ML VIAL 25 MG IVPUSH (10:53)
[2024-01-06 11:07] LABS: Appearance Urine Clear; Color Urine Yellow; Glucose Urine UA Negative (Negative); Leukocyte Esterase Urine Small (1+) (Negative); Nitrite Urine Negative (Negative); PH 8.5 (5.0-9.0); Specific Gravity - Urine >= 1.030 (1.005-1.025); UMIC TRIGGER UACC YES; Urine Blood Negative (Negative); Urine Ketones Negative (Negative); Urine Protein Negative (Neg-Trace)
[2024-01-06 11:24] LABS: Bacteria Urine 4+ (None Seen); Hyaline Casts Urine 0-2 /LPF (0-2); RBC Urine 0-2 /HPF (0-2); Squamous Epithelial Cell Urine 0-2 /HPF (0-2); UACC Culture Trigger YES; WBC Urine 0-5 /HPF (0-5)
--- NOTE | 2024-01-06 11:30 | PC.NURSE ---
patient continues to have episodes of dry heaving and nausea, provider made aware, patient medicated per MAR. awaiting CT results
[2024-01-06 11:45] VITALS: BP 139/79; PULSE 85; RESP 24; O2SAT 95
--- NOTE | 2024-01-06 12:28 | PC.NURSE ---
rai catheter clamped by this RN, per release and technical records clerk, patient needs a full bladder
[2024-01-06] MEDS: Morphine Sulfate 2 MG/ML CARTRIDGE IVPUSH (13:21)
--- NOTE | 2024-01-06 13:36 | PC.NURSE ---
ultrasound at bedside
--- NOTE | 2024-01-06 13:36 | PC.NURSE ---
patient gave this RN her daughters phone number, daughter Stefany is patient's healthcare proxy, phone number [phone]
--- NOTE | 2024-01-06 13:53 | PC.NURSE ---
patient complaining of pain in her tailbone area, patient repositioned to her left side with pillow placed underneath for comfort, patient endorsing some relief of pain.
[2024-01-06 14:10] VITALS: BP 129/52; PULSE 72; RESP 14; O2SAT 89
[2024-01-06] MEDS: LORazepam 2 MG/ML VIAL 0.5 MG IVPUSH (14:18)
--- NOTE | 2024-01-06 15:10 | PC.NURSE ---
Po trial attempted , pending results
--- NOTE | 2024-01-06 15:19 | PM.CNGS ---
History of Present Illness Consult details Consult date: 01/06/24 Narrative: Patient is a 71 2-1 female with a plethora of comorbidities and intercurrent medical problems. She presents to the ER with a proximally 1 day history of upper abdominal pain and some nausea and vomiting. She states she had a normal bowel habit yesterday. Patient was never had abdominal surgeries before. Patient is not a very good historian. She does not recall any unusual diet or any sick contacts. Does not recall taking any recent antibiotics. As noted above, the patient has a significant number of medical problems. Patient has been to the ER from multiple visits for respiratory issues in the past Chart was reviewed and patient evaluated. White count 12.1 CT reviewed [facility] Past Medical History Medical History Chronic hypoxemic respiratory failure Obstructive sleep apnea Hypotonic neurogenic bladder Chronic heart failure with preserved ejection fraction (HFpEF) Diarrhea Bacteriuria Chronic UTI UTI (urinary tract infection) Non-rheumatic aortic stenosis Aortic stenosis Paroxysmal atrial fibrillation H/O: CVA (cerebrovascular accident) Glaucoma Severe sepsis Obesity Osteoarthritis COPD (chronic obstructive pulmonary disease) Chronic UTI Chronic indwelling Molina catheter Diabetes Hypertension Congestive heart failure Family History Family History Father No problems noted. Mother No problems noted. Surgical History Surgical History H/O enucleation of left eyeball H/O adenoidectomy History of tonsillectomy Social History Social History Household Members: None Housing: Apartment Do you presently have visiting nurse or other home services: Yes (care givers) Unable to assess alcohol history related to: Unknown Alcohol intake: never Patient Tobacco Use Status: Never used Tobacco Smoked in Last 30 Days: No Second Hand Smoke Exposure: No Use of substances other than those prescribed or required for medical reasons: No Advance Directives: Yes Advance Directives on File: Yes Advance Directives Date on File: 07/09/20 service: No Current occupational status: disabled Meds Allergies Allergy/AdvReac Type Severity Reaction Status Date / Time silver sulfadiazine Allergy Unknown UNK Verified 01/06/24 08:41 [From [facility]] Home Medications ?Medication ?Instructions ?Recorded ?Confirmed ?Last Taken ?Type albuterol sulfate 90 mcg/actuation 2 puff inhalation Q4-6H PRN 01/23/21 10/26/23 01/26/23 History aerosol inhaler (Proventil HFA) Wheezing apixaban 5 mg tablet (Eliquis) 5 mg PO BID 01/23/21 10/26/23 01/26/23 History aspirin 81 mg tablet,delayed 81 mg PO DAILY 10/24/21 10/26/23 01/26/23 History release insulin glargine 100 unit/mL (3 70 unit subcut DAILY 10/24/21 10/26/23 01/26/23 History mL) subcutaneous pen (Lantus Solostar U-100 Insulin) furosemide 40 mg tablet 80 mg PO DAILY 03/09/22 10/26/23 01/26/23 History dulaglutide 0.75 mg/0.5 mL 0.75 mg subcut TU 10/23/22 10/26/23 01/24/23 History subcutaneous pen injector (Trulicity) insulin lispro 100 unit/mL 1 sliding scale dose subcut QIDACHS 10/23/22 10/26/23 Unknown History subcutaneous pen (Humalog KwikPen (U-100) Insulin) acetaminophen 325 mg tablet 650 mg PO Q6H PRN Pain 01/27/23 01/27/23 01/26/23 History ergocalciferol (vitamin D2) 1,250 1,250 mcg PO TH 01/27/23 10/26/23 01/26/23 History mcg (50,000 unit) capsule fluticasone furoate 200 1 ea inhalation DAILY 01/27/23 10/26/23 01/26/23 History mcg-vilanterol 25 mcg/dose inhalation powder (Breo Ellipta) gabapentin 300 mg capsule 300 mg PO TID 01/27/23 10/26/23 01/26/23 History montelukast 10 mg tablet 10 mg PO BEDTIME 01/27/23 10/26/23 01/26/23 History oxybutynin chloride 5 mg 5 mg PO BEDTIME 01/27/23 10/26/23 01/26/23 History tablet,extended release 24 hr losartan 25 mg tablet 25 mg PO DAILY 10/26/23 10/26/23 Unknown History metoprolol succinate 50 mg 50 mg PO DAILY 10/26/23 10/26/23 Unknown History tablet,extended release 24 hr lisinopril 5 mg tablet 5 mg PO DAILY 12/01/23 Unknown History Physical Exam Vital Signs: Vital Signs: Last Vital Signs Temp 98.3 F 01/06/24 08:39 Pulse 72 01/06/24 14:10 Resp 14 01/06/24 14:10 BP 129/52 L 01/06/24 14:10 Pulse Ox 89 L 01/06/24 14:10 O2 Del Method Nasal Cannula 01/06/24 14:10 O2 Flow Rate 2 01/06/24 14:10 Oxygen Flow Rate 3 01/06/24 08:39 BMI result Body Mass Index 44.7 Const: Other: Very morbidly obese patient. Minimally communicative. GI: Other: Profoundly corpulent abdomen. Mild upper abdominal tenderness. No evidence of any guarding, rebound, or rigidity. Results Labs 01/06/24 08:49 01/06/24 08:49 Labs: Abnormal lab results 01/06/24 01/06/24 Range/Units 08:49 11:00 WBC 12.1 H (4.8-10.8) X10*3/uL RBC 6.18 H (4.20-5.50) X10*6/uL Hct 47.7 H (37.0-47.0) % MCV 77.2 L (80.0-98.0) fL MCH 24.3 L (27.0-33.0) pg RDW 20.6 H (11.0-16.0) % Immature Gran % (Auto) 0.5 H (0.0-0.4) % Neut % (Auto) 82.4 H (45-73) % Lymph % (Auto) 9.0 L (20-40) % Lymph # (Auto) 1.1 L (1.2-4.9) X10*3/uL Abs Immat Gran (auto) 0.06 H (0.00-0.03) X10*3/uL Absolute Neuts (auto) 9.9 H (2.0-8.3) x10*3/uL Chloride 87 L (96-108) mmol/L Carbon Dioxide 39 H (22-29) mmol/L Random Glucose 203 H (60-115) mg/dL Ur Specific [place] >= 1.030 H (1.005-1.025) Ur Leukocyte Esterase Small (1+) H (Negative) Short CBC 01/06/24 Range/Units 08:49 WBC 12.1 H (4.8-10.8) X10*3/uL Hgb 15.0 (12.0-16.0) g/dl Hct 47.7 H (37.0-47.0) % Plt Count 184 (160-400) X10*3/uL BMP 01/06/24 08:49 Sodium 135 Potassium 3.4 Chloride 87 L Carbon Dioxide 39 H BUN 13 Creatinine 0.62 Calcium 9.3 Liver Function 01/06/24 Range/Units 08:49 Total Bilirubin 0.6 (0.0-1.0) mg/dL Direct Bilirubin 0.2 (0.0-0.5) mg/dL AST 16 (5-31) U/L ALT 13 (0-31) U/L Alkaline Phosphatase 108 (39-117) U/L Albumin 3.8 (3.5-5.0) g/dL Urine 01/06/24 Range/Units 11:00 Urine Color Yellow Urine Appearance Clear Urine pH 8.5 (5.0-9.0) Ur Specific [place] >= 1.030 H (1.005-1.025) Urine Protein Negative (Neg-Trace) mg/dL Urine Glucose (UA) Negative (Negative) mg/dL All other labs normal. Assessment and Plan (1) Gastroenteritis: Status: Acute Plan At at present, based on clinical evaluation and CT scan, patient seems to be more likely to have a gastroenteritis/food poisoning then an acute surgical issue or bowel obstruction. Also moderate amount of stool in The colon. Current recommendation is to treat the patient symptomatically, attempt diet, and further interventions and studies will be directed by the patient's clinical course to the above-mentioned recommendations. Patient also had appreciable incidental findings including gynecological etiology. Procedures Date of Service Date of Service: 01/06/24
--- NOTE | 2024-01-06 15:59 | PC.NURSE ---
Daughter updated on current plan of care, states okay to book ride home and she will arrange for FORM BUILDER to meet patient at home. Daughter aware patient will need to follow up with pbgyn related to mass on ovary.
--- NOTE | 2024-01-06 16:39 | PC.NURSE ---
Daughter aware ems transport will be after 4:45pm, stating will have assistance coordinator get to the house around 5pm
[2024-01-06 17:06] VITALS: BP 129/52; PULSE 72; RESP 18; TEMP 37.1; O2SAT 96
== END 2024-01-06 17:42 | disposition home or self-care (01) ==
PROVIDERS: Nurse Practitioner Family; Emergency Provider Emergency Medicine; PCP Family Medicine
DX: K52.9 Noninfective gastroenteritis and colitis, unspecified (principal); R19.04 Left lower quadrant abdominal swelling, mass and lump; E11.9 Type 2 diabetes mellitus without complications; I11.0 Hypertensive heart disease with heart failure; I50.9 Heart failure, unspecified; I48.91 Unspecified atrial fibrillation; J44.9 Chronic obstructive pulmonary disease, unspecified; Z99.89 Dependence on other enabling machines and devices; Z79.01 Long term (current) use of anticoagulants; Z79.82 Long term (current) use of aspirin; Z79.85 Long-term (current) use of injectable non-insulin antidiabetic drugs; Z79.4 Long term (current) use of insulin; Z79.899 Other long term (current) drug therapy; Z03.818 Encounter for observation for suspected exposure to other biological agents ruled out
CPT/HCPCS: 0241U; 36415; 74177; 76856; 80048; 80076; 81001; 82272; 83605; 83690; 84484; 85025; 87086; 93005; 96374; 96375; 96376; 99285; J1200; J2060; J2270; J2405; Q9967

== ENCOUNTER → 2024-01-06 08:43 | Outpatient (BNV) | payer MEDICARE, MEDICAID, SELFPAY | PROVIDERS: Emergency Provider Emergency Medicine; PCP Family Medicine; Visit Provider Internal Medicine Cardiovascular Disease | DX: R94.31 Abnormal electrocardiogram [ECG] [EKG] (principal) | CPT/HCPCS: 93010 ==

== ENCOUNTER → 2024-01-06 09:12 | Outpatient (BNV) | payer MEDICARE, MEDICAID, SELFPAY | PROVIDERS: Emergency Provider Emergency Medicine; PCP Family Medicine; Visit Provider Surgery | DX: K52.9 Noninfective gastroenteritis and colitis, unspecified (principal) | CPT/HCPCS: 99285 ==

== ENCOUNTER 2024-01-08 12:19 | Emergency (ER) | payer MEDICARE, MEDICAID, SELFPAY ==
[2024-01-08 12:46] VITALS: BP 122/48; BP 168/110; PULSE 72; PULSE 76; RESP 18; TEMP 36.4; O2SAT 92; O2SAT 98; BMI 41.6
[2024-01-08 13:42] LABS: MANUAL DIFF FLAG NO
--- NOTE | 2024-01-08 13:42 | ED.NAVMDI ---
HPI - Nausea/Vomiting/Diarrhea General Chief complaint: Nausea/Vomiting/Diarrhea Stated complaint: AGE UNK,DIARRHEA PER EMS Time Seen by Provider: 01/08/24 12:36 Source: patient and EMS Mode of arrival: EMS Limitations: no limitations History of Present Illness ED Provider: Dr. Ulloa HPI Narrative: Patient had a large diarrheal movement today that soaked through her matress. Here for case management MD elicited complaint: diarrhea Related Data Home Medications ?Medication ?Instructions ?Recorded ?Confirmed albuterol sulfate 90 mcg/actuation 2 puff inhalation Q4-6H PRN 01/23/21 10/26/23 aerosol inhaler (Proventil HFA) Wheezing apixaban 5 mg tablet (Eliquis) 5 mg PO BID 01/23/21 10/26/23 aspirin 81 mg tablet,delayed 81 mg PO DAILY 10/24/21 10/26/23 release insulin glargine 100 unit/mL (3 70 unit subcut DAILY 10/24/21 10/26/23 mL) subcutaneous pen (Lantus Solostar U-100 Insulin) furosemide 40 mg tablet 80 mg PO DAILY 03/09/22 10/26/23 dulaglutide 0.75 mg/0.5 mL 0.75 mg subcut TU 10/23/22 10/26/23 subcutaneous pen injector (Trulicity) insulin lispro 100 unit/mL 1 sliding scale dose subcut QIDACHS 10/23/22 10/26/23 subcutaneous pen (Humalog KwikPen (U-100) Insulin) acetaminophen 325 mg tablet 650 mg PO Q6H PRN Pain 01/27/23 01/27/23 ergocalciferol (vitamin D2) 1,250 1,250 mcg PO TH 01/27/23 10/26/23 mcg (50,000 unit) capsule fluticasone furoate 200 1 ea inhalation DAILY 01/27/23 10/26/23 mcg-vilanterol 25 mcg/dose inhalation powder (Breo Ellipta) gabapentin 300 mg capsule 300 mg PO TID 01/27/23 10/26/23 montelukast 10 mg tablet 10 mg PO BEDTIME 01/27/23 10/26/23 oxybutynin chloride 5 mg 5 mg PO BEDTIME 01/27/23 10/26/23 tablet,extended release 24 hr losartan 25 mg tablet 25 mg PO DAILY 10/26/23 10/26/23 metoprolol succinate 50 mg 50 mg PO DAILY 10/26/23 10/26/23 tablet,extended release 24 hr lisinopril 5 mg tablet 5 mg PO DAILY 12/01/23 Previous Rx's ?Medication ?Instructions ?Recorded albuterol sulfate 2.5 mg/3 mL 2.5 mg (3 mL) inhalation Q4-6H PRN 07/25/22 (0.083 %) solution for nebulization shortness of breath or wheezing #75 mL albuterol sulfate 90 mcg/actuation 2 puff inhalation Q6H PRN 10/26/23 aerosol inhaler shortness of breath or wheezing #8.5 grams doxycycline hyclate 100 mg tablet 100 mg PO BID #14 tabs 10/26/23 guaifenesin 200 mg/5 mL oral liquid 200 mg (5 mL) PO Q4H PRN cough 10/26/23 #118 mL prednisone 20 mg tablet 20 mg PO BID #10 tabs 10/26/23 Allergies Allergy/AdvReac Type Severity Reaction Status Date / Time silver sulfadiazine Allergy Unknown UNK Verified 01/08/24 13:04 [facility] Review of Systems Review of Systems: Yes all other systems are reviewed and are negative Neurologic: Denies Sensory deficit (Neuro) [facility] Past Medical History Medical History Chronic hypoxemic respiratory failure Obstructive sleep apnea Hypotonic neurogenic bladder Chronic heart failure with preserved ejection fraction (HFpEF) Diarrhea Bacteriuria Chronic UTI UTI (urinary tract infection) Non-rheumatic aortic stenosis Aortic stenosis Paroxysmal atrial fibrillation H/O: CVA (cerebrovascular accident) Glaucoma Severe sepsis Obesity Osteoarthritis COPD (chronic obstructive pulmonary disease) Chronic UTI Chronic indwelling Molina catheter Diabetes Hypertension Congestive heart failure Surgical History H/O enucleation of left eyeball H/O adenoidectomy History of tonsillectomy Family History Family History Father No problems noted. Mother No problems noted. Social History Social History Household Members: None Housing: Apartment Do you presently have visiting nurse or other home services: Yes (care givers) Unable to assess alcohol history related to: Unknown Alcohol intake: never Patient Tobacco Use Status: Never used Tobacco Second Hand Smoke Exposure: No Advance Directives: Yes Advance Directives on File: Yes Advance Directives Date on File: 07/09/20 Do you have a plan to hurt others: No Plan service: No Current occupational status: disabled Physical Exam Vital Signs: Vital Signs: Last Vital Signs Temp 97.1 F 01/08/24 16:00 Pulse 73 01/08/24 16:00 Resp 14 01/08/24 16:00 BP 133/46 L 01/08/24 16:00 Pulse Ox 96 01/08/24 16:00 O2 Del Method Nasal Cannula 01/08/24 16:00 O2 Flow Rate 2 01/08/24 16:00 Oxygen Flow Rate 2 01/08/24 12:46 BMI result Body Mass Index 41.6 Const: Other: morbidly obese female in no acute distress Orientation/consciousness: oriented to person and patient oriented x3 Limitations: no limitations HEENT: Head: Yes normal to inspection Ears: external ears normal General nose exam: Normal external nose present Mouth: Normal oral and palatal mucosa present and oropharynx normal Throat: Yes posterior oropharynx normal Eyes: General: appearance normal, both eyes and all related structures Neck: Other: supple Neck: Yes normal visual inspection Chest: Chest palpation & inspection: normal inspection of the chest Resp: Auscultation: clear to auscultation bilaterally Cardio: Jugular venous distension: no JVD Rate: regular rate Rhythm: regular rhythm Heart sounds: S1 normal heart sound present and S2 normal heart sound present GI: Inspection: Yes normal to inspection Palpation (GI): Soft to palpation, nontender and No hepatosplenomegaly present Auscultation: normal bowel sounds : General: Yes no CVA tenderness Back/Spine/Pelvis: Back: no CVA tenderness Skin: General skin exam: no rashes or lesions noted Neuro: General: oriented to person and patient oriented x3 Cranial nerves: Yes CN's II-XII intact bilaterally Motor exam (neuro): 5/5 motor strength present throughout Sensory Exam: No Sensory deficit (Neuro) Extrem: General: Yes normal to inspection Psych: Appearance: grossly normal Course Reevaluation(s) Reevaluation #1: patient with chronic pyuria will wait for urine cx, and have case management see patient Time: 16:18 Reevaluation #2: physician observation started now as patient being evaluated for safety and home help Time: 16:18 Medical Decision Making Differential Diagnosis Differential Diagnoses: The differential diagnosis associated with the presentation includes (diarrhea, morbid obesity, unable to care for self) Admission/Observation Consideration of admission/observation: Escalation of care including admission/observation considered (patient considered for admission upon arrival) Lab Data MDM Lab Attestation statement: I reviewed the patient's lab results. (patient with chronic pyuria will not treat until cultures) 01/08/24 13:38 01/08/24 13:38 Labs: Lab Results 01/08/24 01/08/24 01/08/24 Range/Units 13:38 15:26 16:08 WBC 11.8 H (4.8-10.8) X10*3/uL RBC 5.80 H (4.20-5.50) X10*6/uL Hgb 14.1 (12.0-16.0) g/dl Hct 45.3 (37.0-47.0) % MCV 78.1 L (80.0-98.0) fL MCH 24.3 L (27.0-33.0) pg MCHC 31.1 (31.0-35.0) g/dl RDW 20.5 H (11.0-16.0) % Plt Count 159 L (160-400) X10*3/uL MPV Not Reportable Immature Gran % (Auto) 0.5 H (0.0-0.4) % Neut % (Auto) 80.3 H (45-73) % Lymph % (Auto) 11.5 L (20-40) % [place] % (Auto) 6.4 (2-11) % Eos % (Auto) 1.0 (0-4) % Baso % (Auto) 0.3 (0-2) % Lymph # (Auto) 1.4 (1.2-4.9) X10*3/uL [place] # (Auto) 0.8 (0.1-1.2) X10*3/uL Eos # (Auto) 0.1 (0.0-0.4) X10*3/uL Baso # (Auto) 0.0 (0.0-0.2) X10*3/uL Abs Immat Gran (auto) 0.06 H (0.00-0.03) X10*3/uL Absolute Neuts (auto) 9.5 H (2.0-8.3) x10*3/uL Absolute Nucleated RBC 0.000 (0.0-0.012) X10*3/uL Nucleated RBC % (auto) 0.0 (0.0-0.2) /100WBC Sodium 131 L (135-145) mmol/L Potassium 3.9 (3.3-5.1) mmol/L Chloride 87 L (96-108) mmol/L Carbon Dioxide 37 H (22-29) mmol/L Anion Gap 11 L (12-20) BUN 15 (9-16) mg/dL Creatinine 0.63 (0.5-1.4) mg/dL Estim Creat Clear Calc 101.3 Estimated GFR > 60 POC Glucose 199 H (60-115) mg/dL Random Glucose 212 H (60-115) mg/dL Calcium 8.9 (8.4-10.2) mg/dL Urine Color Yellow Urine Appearance Cloudy Urine pH >= 9.0 (5.0-9.0) Ur Specific [place] <= 1.005 (1.005-1.025) Urine Protein Negative (Neg-Trace) mg/dL Urine Glucose (UA) Negative (Negative) mg/dL Urine Ketones Negative (Negative) mg/dL Urine Blood Trace H (Negative) Urine Nitrite Positive H (Negative) Ur Leukocyte Esterase Large (3+) H (Negative) Urine RBC 0-2 (0-2) /HPF Urine WBC 11-20 H (0-5) /HPF Ur Squamous Epith Cells 0-2 (0-2) /HPF Other Crystals Present Urine Bacteria 4+ (None Seen) Hyaline Casts 0-2 (0-2) /LPF Independent Historian Clinical information obtained from an independent historian. History obtained from or confirmed by: EMS Prescription Management I considered prescription management with: Antibiotic (no evidence of infection) Discharge Plan Discharge Clinical Impression: Diarrhea Patient Disposition: Still a Patient Prescriptions: No Action albuterol sulfate [Proventil HFA] 90 mcg/actuation HFA aerosol inhaler 2 puff inhalation Q4-6H PRN (Reason: Wheezing) Eliquis 5 mg tablet 5 mg PO BID albuterol sulfate 2.5 mg /3 mL (0.083 %) solution for nebulization 2.5 mg inhalation Q4-6H PRN (Reason: shortness of breath or wheezing) Qty: 75 0RF insulin glargine [Lantus Solostar U-100 Insulin] 100 unit/mL (3 mL) insulin pen 70 unit subcut DAILY aspirin 81 mg Tablet,Delayed Release (Dr/Ec) 81 mg PO DAILY furosemide 40 mg tablet 80 mg PO DAILY insulin lispro [Humalog KwikPen Insulin] 100 unit/mL insulin pen 1 sliding scale dose subcut QIDACHS Protocol: Insulin Correction Scale Less than or equal to 110 ---- Give (units): 0 111 to 150 Give (units): 0 151 to 200 Give (units): 2 201 to 250 Give (units): 4 251 to 300 Give (units): 6 301 to 350 Give (units): 8 Greater than 350 Give (units): 10 Call MD if Blood Glucose > : 350 Trulicity 0.75 mg/0.5 mL pen injector 0.75 mg subcut TU acetaminophen 325 mg tablet 650 mg PO Q6H PRN (Reason: Pain) oxybutynin chloride 5 mg tablet extended release 24hr 5 mg PO BEDTIME gabapentin 300 mg capsule 300 mg PO TID montelukast 10 mg tablet 10 mg PO BEDTIME ergocalciferol (vitamin D2) 1,250 mcg (50,000 unit) capsule 1,250 mcg PO TH fluticasone furoate-vilanterol [Breo Ellipta] 200-25 mcg/dose blister with device 1 ea INHALATION DAILY albuterol sulfate 90 mcg/actuation HFA aerosol inhaler 2 puff inhalation Q6H PRN (Reason: shortness of breath or wheezing) Qty: 8.5 0RF prednisone 20 mg tablet 20 mg PO BID Qty: 10 0RF doxycycline hyclate 100 mg tablet 100 mg PO BID Qty: 14 0RF guaifenesin 200 mg/5 mL liquid 200 mg PO Q4H PRN (Reason: cough) Qty: 118 0RF metoprolol succinate 50 mg tablet extended release 24 hr 50 mg PO DAILY losartan 25 mg tablet 25 mg PO DAILY lisinopril 5 mg tablet 5 mg PO DAILY Print Language: Mozambican
[2024-01-08 13:50] LABS: Basophils Percent Auto 0.3 % (0-2); Eosinophils Absolute Auto 0.1 X10*3/uL (0.0-0.4); Hematocrit 45.3 % (37.0-47.0); Hemoglobin 14.1 g/dl (12.0-16.0); Imm Gran Abs Auto 0.06 X10*3/uL (0.00-0.03); Imm Gran Pct Auto 0.5 % (0.0-0.4); Lymphocytes Absolute Auto 1.4 X10*3/uL (1.2-4.9); Lymphocytes Percent Auto 11.5 % (20-40); Mean Corpuscular HGB Conc 31.1 g/dl (31.0-35.0); Mean Corpuscular Hemoglobin 24.3 pg (27.0-33.0); Mean Corpuscular Volume 78.1 fL (80.0-98.0); Monocytes Absolute Auto 0.8 X10*3/uL (0.1-1.2); Monocytes Percent Auto 6.4 % (2-11); Neutrophils Absolute Auto 9.5 x10*3/uL (2.0-8.3); Neutrophils Percent Auto 80.3 % (45-73); Platelet Count 159 X10*3/uL (160-400); Red Cell Distribution Width 20.5 % (11.0-16.0); White Blood Count 11.8 X10*3/uL (4.8-10.8)
[2024-01-08 14:00] VITALS: BP 135/46; PULSE 69; TEMP 36.4; O2SAT 98
[2024-01-08 14:02] LABS: Anion Gap 11 (12-20); Blood Urea Nitrogen 15 mg/dL (9-16); Calcium 8.9 mg/dL (8.4-10.2); Carbon Dioxide 37 mmol/L (22-29); Chloride 87 mmol/L (96-108); Creatinine Clr Calc Pharmacy 101.3; Estimated Glomerular Filt Rate > 60; Glucose Random 212 mg/dL (60-115); Potassium 3.9 mmol/L (3.3-5.1); Sodium 131 mmol/L (135-145)
[2024-01-08 15:45] LABS: Appearance Urine Cloudy; Color Urine Yellow; Glucose Urine UA Negative (Negative); Leukocyte Esterase Urine Large (3+) (Negative); Nitrite Urine Positive (Negative); PH >= 9.0 (5.0-9.0); Specific Gravity - Urine <= 1.005 (1.005-1.025); UMIC TRIGGER UACC YES; Urine Blood Trace (Negative); Urine Ketones Negative (Negative); Urine Protein Negative (Neg-Trace)
[2024-01-08 15:53] LABS: Bacteria Urine 4+ (None Seen); Hyaline Casts Urine 0-2 /LPF (0-2); Other Crystals Urine Present; RBC Urine 0-2 /HPF (0-2); Squamous Epithelial Cell Urine 0-2 /HPF (0-2); UACC Culture Trigger YES
[2024-01-08 16:00] VITALS: BP 133/46; PULSE 73; RESP 14; TEMP 36.2; O2SAT 96
[2024-01-08 16:13] LABS: Glucose, Whole Blood 199 mg/dL (60-115)
[2024-01-08 18:00] VITALS: BP 131/26; PULSE 70; TEMP 36.3; O2SAT 93
[2024-01-08 20:36] VITALS: BP 139/40; PULSE 71; RESP 18; TEMP 36.6; O2SAT 97
[2024-01-08 20:40] LABS: Glucose, Whole Blood 252 mg/dL (60-115)
--- NOTE | 2024-01-08 20:44 | PC.NURSE ---
Addendum entered by Archana Mancuso RN 01/09/24 01:28: Pt reporting pain in her mouth on the right side, states she has been having pain x3 weeks. Nothing visualized in cheek or teeth area; no ulcers or open areas. Covering Provider Karina Lomax verbally notified via telephone of pt complaint and request for tylenol. Tylenol ordered and given per pt request. Will continue to monitor effectiveness. Addendum entered by Archana Mancuso RN 01/08/24 22:49: Scheduled doxycycline not stocked in unit pyxis; requested from main ED. Other scheduled meds administered and patient offered and given sandwich per Dr. Griggs written order for diabetic diet to instructional writer. Addendum entered by Archana Mancuso RN 01/08/24 22:04: Patient asked instructional writer to call her daughter Stefany for assistance with completing med rec for med orders. Medication summary reviewed/med rec completed with Stefany. Stefany stated patient takes gabapentin twice a day though ordered for three. Some meds patient no longer takes. Please see summary for full details. MD notified, awaiting med verifications from pharmacy. Original Note: Patient arrived to ED overflow from [facility] ED at 20:25. VSS. A&Ox4. +Visual deficit per pmhx (enucleated left eye; right eye glaucoma). Patient is calm and cooperative, slide from stretcher to bed, bedfast at baseline. Reports hx neuropathy in her feet. Has +p/cms. -edema. Denies chest pain. On contact precautions for hx of ESBL per chart review. Pt arrived on 2L nc, pt states this is her home o2 level. Denies sob. Breathing is even and unlabored without distress. +BSx4. Abdomen soft, round, non-tender. Denies n/v. Pt requesting food, states she is a diabetic and checks her blood sugars before each meal, sometimes at bed. Covering ED provider Dr. Griggs notified with orders requested for diet, POC, and o2. Chronic rai in place patent of cloudy/large sediment yellow urine. Urine labs previously sent from [facility]. Buttocks intact, blanchable red, moist at intergluteal folds right greater than left. Barrier cream applied and patient repositioned to left. Call bain provided and educated on use. Patient is ringing to make needs known. Bed alarm on and safety measures in place. PT/CM/physician observation plan of care continues.
--- NOTE | 2024-01-08 22:09 | MHC.CM.ED ---
CM met with patient. Pt is known to CM. Pt lives alone with COMMUNITY SERVICES MANAGER's. Daughter cares for her mother M-F 8-2 [employer]), then she has a COMMUNITY SERVICES MANAGER M-F from 3-9pm and weekends from 9-9. Daughter works for [employer], patient cannot remember agency for 2 other COMMUNITY SERVICES MANAGER's. Pt has VNA services through [employer] [facility]. Pt has indwelling rai catheter. Patient tells CM that she had massive amounts of diarrhea that went through her mattress and was leaking on to the floor. States she needs a new mattress and a battery for her alex lift. PCP is Cherise Hamm. HCP is on file-HCP/daughter Stefany Connor ([phone]). Pt is concerned about getting her medications and requests that her daughter be called about medications. CM spoke with primary nurse. CM spoke with Florencia Clinical coordinator regarding med rec for this patient. CM spoke with Stefany. Stefany is unsure of what agency the other 2 COMMUNITY SERVICES MANAGER's are from, but states she has called them and they are aware that the patient is in the ED and is requesting respite. Daughter is requesting respite for 1-2 weeks so she can get a new bariatric mattress for her mother's bed and a new alex lift battery. Local referrals will be made. First choice is [facility]. Stefany is aware that more referrals may need to be made for respite depending on bed availability. CM will follow for discharge planning.
[2024-01-08] MEDS: oxyBUTYnin chloride ER 5 MG TAB.ER.24 PO (22:47)
[2024-01-08] MEDS: Apixaban 5 MG TABLET PO (22:48)
[2024-01-08] MEDS: Montelukast Sodium 10 MG TABLET PO (22:48)
[2024-01-08] MEDS: Gabapentin 300 MG CAPSULE PO (22:48)
[2024-01-08] MEDS: Doxycycline Monohydrate 100 MG CAPSULE PO (23:01)
[2024-01-09] VITALS (7 sets, daily range): BP systolic 134–149; BP diastolic 57–86; PULSE 66–78; RESP 16–18; TEMP 36.1–36.7; O2SAT 96–98
[2024-01-09] MEDS: Acetaminophen 325 MG TABLET 650 MG PO ×3 (01:25→22:55)
--- NOTE | 2024-01-09 07:15 | PC.NURSE ---
Assumed care at 0700. Pt alert and answering questions, breathing even and unlabored, pt is on her baseline O2 via NC. Reports general mouth pain that has been ongoing for a long time due to ulcers in her mouth. Pt denies any new complaints. Repositioned and provided new blankets.
[2024-01-09 07:45] LABS: Glucose, Whole Blood 230 mg/dL (60-115)
[2024-01-09] MEDS: Insulin Lispro 100 UNIT/ML 3 ML VIAL SUBCUT ×4 (07:49→20:42)
[2024-01-09] MEDS: Magnesium Hydrox/Alum Hydrox 30 ML ORAL.SUSP PO ×2 (08:38→16:04)
--- NOTE | 2024-01-09 08:42 | PC.NURSE ---
Pt reported her acid reflux is bothering her after eating breakfast. provider alert and pt medicated per SEP
--- NOTE | 2024-01-09 09:04 | MHC.CM.ED ---
Addendum entered by Miya Ecohls 01/09/24 13:01: Bed offers discussed with patient. [facility] is 1st choice. Will need [facility] approval from [facility]. MDS completed and faxed to [facility]. Also sent to [facility]. Original Note: Patient remains in ER overflow. Will need half-way care at SNF until patient's bariatric bed and alex lift can be replaced. [facility] is 1st choice but unable to offer a bed. Clinical updates [facility] to [facility] [address] [place] [address], [facility], [facility], [facility], [facility], [facility], [facility], [facility], [facility] and [facility]. Continue to monitor for d/c needs.
[2024-01-09] MEDS: Losartan Potassium 25 MG TABLET PO (09:20)
[2024-01-09] MEDS: Apixaban 5 MG TABLET PO ×2 (09:21→20:13)
[2024-01-09] MEDS: Metoprolol Succinate ER 50 MG TAB.ER.24H PO (09:21)
[2024-01-09] MEDS: Aspirin Enteric Coated 81 MG TABLET.DR PO (09:22)
[2024-01-09] MEDS: Gabapentin 300 MG CAPSULE PO ×2 (09:22→20:13)
[2024-01-09] MEDS: Insulin Glargine,Hum.rec.anlog 100 UNIT/ML 10 ML VIAL 70 UNIT SUBCUT (09:22)
--- NOTE | 2024-01-09 09:28 | PC.NURSE ---
Pt reports some relief with Maalox. Tolerated her morning meds well, no issues swallowing. Cleaned and repositioned by tech. ORTEGA, remains on her 2L O2 baseline.
[2024-01-09] MEDS: lisinopriL 5 MG TABLET PO (10:32)
[2024-01-09] MEDS: Doxycycline Monohydrate 100 MG CAPSULE PO ×2 (10:32→20:13)
[2024-01-09 11:33] LABS: IDNOW Serial# 152EDE1D
[2024-01-09 11:34] LABS: COVID-19 Test Negative (Negative)
[2024-01-09 11:41] LABS: Glucose, Whole Blood 351 mg/dL (60-115)
--- NOTE | 2024-01-09 12:00 | PC.NURSE ---
Per provider, give 10 units of insulin lispro. Pts BGL 351, > sliding scale.
--- NOTE | 2024-01-09 12:21 | PC.NURSE ---
Awaiting med from pharmacy.
[2024-01-09] MEDS: Furosemide 40 MG TABLET 80 MG PO (12:23)
[2024-01-09 13:46] LABS: Glucose, Whole Blood 292 mg/dL (60-115)
--- NOTE | 2024-01-09 15:54 | MHC.CM.ED ---
Patient remains in ER overflow. Will transfer to [facility] via BLS tomorrow 01/09 at 9am. Marisol ESPINAL booked. [facility] with chart. Patient, Chikis RN and Trisha ZACARIAS aware. Left voicemail for patient's daughterStefany via telephone at [phone] with d/c info. Continue to monitor for d/c needs.
[2024-01-09 16:28] LABS: Glucose, Whole Blood 328 mg/dL (60-115)
[2024-01-09] MEDS: Montelukast Sodium 10 MG TABLET PO (20:12)
[2024-01-09] MEDS: oxyBUTYnin chloride ER 5 MG TAB.ER.24 PO (20:12)
[2024-01-09 20:36] LABS: Glucose, Whole Blood 317 mg/dL (60-115)
--- NOTE | 2024-01-09 21:52 | PC.NURSE ---
Addendum entered by Merry Liu RN 01/10/24 05:57: patient awake, watching tv, all needs met at this time, call bain within reach. DIRECTOR TELEHEALTH emptied rai catheter. Addendum entered by Merry Liu RN 01/10/24 02:33: patient sleeping, did not disturb. call bain at bedside. Addendum entered by Merry Liu RN 01/10/24 00:04: patient called out requesting a warm blanket, brought warm blanket. denies pain at this time. all needs met, call bain in reach. Addendum entered by Merry Liu RN 01/09/24 22:57: pt c/o pain in right side of mouth/cheek and right lower gum line. patient reports painful bumps similar to ulcers - patient has no teeth. pt requesting tylenol for 3/10 pain. administered. call bain in reach. Original Note: patient respositioned, see head to toe. patient IV removed by patient. call bain in reach. remains on contact precautions.
--- NOTE | 2024-01-09 23:49 | MHC.EDTECH ---
This tech took over care of patient at 2300,hourly rounds completed,patient is currently watching TV,lights dimmed,call bain in reach
--- NOTE | 2024-01-10 01:06 | MHC.EDTECH ---
Emptied patient's Molina 1200MLS of cloudy yellow urine.
--- NOTE | 2024-01-10 03:51 | MHC.EDTECH ---
Hourly rounds completed,patient is resting comfortably call bain in reach and bed alarm on for safety.
[2024-01-10 05:55] VITALS: BP 141/69; PULSE 64; RESP 18; TEMP 36.5; O2SAT 96
--- NOTE | 2024-01-10 05:57 | MHC.EDTECH ---
Hourly rounds and vitals completed,emptied Molina 300mls,patient was repositioned to comfort,warm blanket given,call bain in reach
--- NOTE | 2024-01-10 08:01 | MHC.EDTECH ---
breakfast given. patient would still like to rest.
[2024-01-10] MEDS: Acetaminophen 325 MG TABLET 650 MG PO (08:48)
[2024-01-10] MEDS: Aspirin Enteric Coated 81 MG TABLET.DR PO (08:48)
[2024-01-10] MEDS: Apixaban 5 MG TABLET PO (08:48)
[2024-01-10 08:49] VITALS: PULSE 72
[2024-01-10] MEDS: Gabapentin 300 MG CAPSULE PO (08:49)
[2024-01-10] MEDS: Metoprolol Succinate ER 50 MG TAB.ER.24H PO (08:49)
[2024-01-10] MEDS: Insulin Glargine,Hum.rec.anlog 100 UNIT/ML 10 ML VIAL 70 UNIT SUBCUT (08:53)
[2024-01-10] MEDS: Furosemide 40 MG TABLET 80 MG PO (09:10)
[2024-01-10] MEDS: Doxycycline Monohydrate 100 MG CAPSULE PO (09:10)
[2024-01-10] MEDS: Losartan Potassium 25 MG TABLET PO (09:10)
[2024-01-10] MEDS: lisinopriL 5 MG TABLET PO (09:10)
[2024-01-10 09:21] VITALS: BP 158/77; PULSE 75; RESP 18; TEMP 36.7; O2SAT 97
== END 2024-01-10 09:24 ==
PROVIDERS: Physician Assistant; Emergency Provider Emergency Medicine; PCP Family Medicine
DX: R82.81 Pyuria (principal); R11.2 Nausea with vomiting, unspecified; R19.7 Diarrhea, unspecified; E11.9 Type 2 diabetes mellitus without complications; Z79.899 Other long term (current) drug therapy; Z79.4 Long term (current) use of insulin; Z11.52 Encounter for screening for COVID-19
CPT/HCPCS: 36415; 80048; 81001; 82947; 85025; 87086; 87635; 99285

== ENCOUNTER 2024-02-02 14:56 | Outpatient (REF) | payer MEDICARE, MEDICAID, SELFPAY ==
[2024-02-02 16:13] LABS: Appearance Urine Clear; Color Urine Yellow; Glucose Urine UA 100 mg/dL (Negative); Leukocyte Esterase Urine Small (1+) (Negative); Nitrite Urine Positive (Negative); Specific Gravity - Urine <= 1.005 (1.005-1.025); UMIC TRIGGER UA YES; Urine Blood Negative (Negative); Urine Ketones Negative (Negative); Urine Protein Negative (Neg-Trace)
[2024-02-02 16:40] LABS: Bacteria Urine 3+ (None Seen); Hyaline Casts Urine 0-2 /LPF (0-2); RBC Urine 0-2 /HPF (0-2); Squamous Epithelial Cell Urine 0-2 /HPF (0-2); WBC Urine 0-5 /HPF (0-5)
== END 2024-02-02 14:57 | disposition home or self-care (01) ==
LOC: HO.LNP 14:56
PROVIDERS: Visit Provider Family Medicine
DX: T83.510A Infection and inflammatory reaction due to cystostomy catheter, initial encounter (principal); R33.9 Retention of urine, unspecified
CPT/HCPCS: 81001; 87086

== ENCOUNTER 2024-03-16 17:17 | Emergency (ER) | payer MEDICARE, MEDICAID, SELFPAY ==
[2024-03-16 17:27] VITALS: BP 130/80; PULSE 76; O2SAT 99; BMI 43.3
--- OUTSIDE RECORDS SUMMARY | 2024-03-16 18:11 | XMS_ITS | Continuity of Care Document ---
Author Organization [facility] ter Address [address] [place] [id number]- Care Team Providers Care Wet Process Technician Name Role Phone Montse GONZALEZ, Amy Okeefe Primary Care Physician [phone] Encounter [facility] Date(s): 02/17/24 - 02/22/[address] [address]- Encounter Diagnosis COPD exacerbation(Final) - 02/17/24 Pneumonia(Final) - 02/17/24 Discharge Disposition: A-Transfer SNF Attending Physician: Jeanne GONZALEZ, Ina Capps Admitting Physician: Gaudencio Dasilva MD Referring Physician: Not on Staff, Referring [...] tablet, By Mouth, Every 4 hours, PRN, Maintenance, as needed for fever/pain, 02/11/24 19:25:00 EDT, Partial fill upon patient request if the prescription is for a schedule II opioid drug. Start Date: 02/11/24 Status: Ordered albuterol 90 mcg/inh inhalation powder 2 puffs, Inhalation, Every 6 hours, PRN Wheezing/Shortness of Breath, # 1 each, 0 Refills, Maintenance, 02/20/24 12:24:00 EDT, Powder, [facility]/pharmacy #[id number], Partial fill upon patient request if the prescription is for a schedule II opioid drug., 2 puffs... Start Date: 02/20/24 Stop Date: 03/21/24 Status: Ordered albuterol-ipratropium 3 mg-0.5 mg/3 ml inhalation solution 3 mL, Inhalation, 4 times a day, PRN Wheezing/Shortness of Breath, Maintenance, 02/11/24 19:27:00 EDT, Solution, Partial fill upon patient request if the prescription is for a schedule II opioid drug. Start Date: 02/11/24 Status: Ordered Artificial Tears preserved solution 2 drops, Eyes, Both, 2 times a day, PRN for dry eyes, # 15 mL, 0 Refills, Maintenance, 02/22/24 11:47:00 EDT, Solution, Partial fill upon patient request if the prescription is for a schedule II opioid drug. Start Date: 02/22/24 Status: Ordered aspirin 81 mg oral tablet, chewable 81 mg, 1, tablet, By Mouth, Daily, Maintenance, 02/11/24 19:25:00 EDT, Partial fill upon patient request if the prescription is for a schedule II opioid drug. Start Date: 02/11/24 Status: Ordered benzonatate 200 mg oral capsule = 200 mg, By Mouth, 3 times a day, PRN Cough, 0 Refills, Maintenance, 02/13/24 13:04:00 EDT, Capsule, Partial fill upon patient request if the prescription is for a schedule II opioid drug. Start Date: 02/13/24 Stop Date: 02/18/24 Status: Ordered Breo Ellipta 200 mcg-25 mcg/inh inhalation powder 1 puffs, Inhalation, Daily, # 30 each, 3 Refills, Maintenance, 11/01/22 11:09:00 EDT, Powder, [facility]/pharmacy #[id number], Partial fill upon patient request if the prescription is for a schedule II opioid drug., 1 puffs Inhalation Daily, 167.64, cm, 11/01/22 7... Start Date: 11/01/22 Status: Ordered Dulcolax 10 mg rectal suppository 1 supp = 10 mg, Rectally, Daily, PRN as needed for constipation, Maintenance, 02/11/24 19:26:00 EDT, Suppository, Partial fill upon patient request if the prescription is for a schedule II opioid drug. Start Date: 02/11/24 Status: Ordered Eliquis 5 mg oral tablet 1 tablet = 5 mg, By Mouth, 2 times a day, 5 Refills, Maintenance, 03/16/22 1:18:00 EDT, Tablet, Partial fill upon patient request if the prescription is for a schedule II opioid drug. Start Date: 03/16/22 Status: Ordered Fleet Enema 19 gm-7 gm rectal enema 1 each, Rectally, Once, PRN for constipation, Maintenance, 02/11/24 19:28:00 EDT, Enema, Partial fill upon patient request if the prescription is for a schedule II opioid drug. Start Date: 02/11/24 Status: Ordered Flonase Allergy Relief 50 mcg/inh nasal spray 1 sprays = 50 mcg, Nares, Both, 2 times a day, Maintenance, 02/06/24 10:16:00 EDT, Partial fill upon patient request if the prescription is for a schedule II opioid drug. Start Date: 02/06/24 Status: Ordered gabapentin 300 mg oral capsule 300 mg, Capsule, By Mouth, 02/22/24 9:00:00 EDT Start Date: 02/22/24 Stop Date: 02/22/24 Status: Completed gabapentin 300 mg oral capsule 300 mg, 1, capsule, By Mouth, 3 times a day, Refills 0, Maintenance, 03/16/22 1:19:00 EDT, Partial fill upon patient request if the prescription is for a schedule II opioid drug. Start Date: 03/16/22 Status: Ordered guaiFENesin 100 mg/5 mL oral liquid 10 mL = 200 mg, By Mouth, 4 times a day, PRN for cough, Maintenance, 02/11/24 19:29:00 EDT, Liquid,Partial fill upon patient request if the prescription is for a schedule II opioid drug. Start Date: 02/11/24 Status: Ordered Humalog Kwik Pen 100 units/mL subcutaneous injection 3-11 units, Subcutaneous Injection, 3 times a day before meals, As directed per sliding scale 150-199=3 units 200-249=5 units 250-299=7 units 300-349= 9 units 350-400= 11 units, 0 Refills, Maintenance, 03/29/22 19:44:00 EDT, Partial fill upon pat... Start Date: 03/29/22 Status: Ordered Lantus Solostar Pen 100 units/mL subcutaneous solution = 54 units, Subcutaneous Injection, Daily at bedtime Start Date: 12/12/22 Status: Ordered Lasix 80 mg oral tablet 80 mg, 1, tablet, By Mouth, Daily, # 30 tablet, Refills 0, Tot. Refills 0, Maintenance, 05/09/22 15:58:00 EDT, Do Not Route, Partial fill upon patient request if the prescription is for a schedule IIopioid drug. Start Date: 05/09/22 Stop Date: 06/08/22 Status: Ordered lisinopril 5 mg oral tablet 5 mg, 1, tablet, By Mouth, Daily, Maintenance, 02/06/24 10:10:00 EDT, Partial fill upon patient request if the prescription is for a schedule II opioid drug. Start Date: 02/06/24 Status: Ordered lisinopril 5 mg oral tablet 5 mg, Tablet, By Mouth, Hold for: SBP<120, 02/22/24 9:00:00 EDT Start Date: 02/22/24 Stop Date: 02/22/24 Status: Completed metFORMIN 850 mg oral tablet 1 tablet = 850 mg, By Mouth, Daily, 0 Refills, Maintenance, 03/16/22 1:18:00 EDT, Tablet, Partial fill upon patient request if the prescription is for a schedule II opioid drug. Start Date: 03/16/22 Status: Ordered Milk of Magnesia 8% oral suspension 30 mL = 2.4 Gm, By Mouth, Daily, PRN for constipation, Maintenance, 02/11/24 19:32:00 EDT, Suspension, Partial fill upon patient request if the prescription is for a schedule II opioid drug. Start Date: 02/11/24 Status: Ordered Narcan 4 mg/0.1 mL nasal spray 1 sprays = 4 mg, Once, PRN as needed, Maintenance, 02/11/24 19:33:00 EDT, Partial fill upon patientrequest if the prescription is for a schedule II opioid drug. Start Date: 02/11/24 Status: Ordered Nystop 516062 u/gm powder 1 applicator, Topically, 2 times a day, Maintenance, 02/06/24 10:17:00 EDT, Partial fill upon patient request if the prescription is for a schedule II opioid drug. Start Date: 02/06/24 Status: Ordered oxybutynin 5 mg/24 hours oral tablet, extended release 1 tablet = 5 mg, By Mouth, Daily at bedtime Start Date: 12/12/22 Status: Ordered Oxygen 2 L, Nares, Both, Daily, Maintenance, 02/06/24 10:13:00 EDT, Partial fill upon patient request if the prescription is for a schedule II opioid drug. Start Date: 02/06/24 Status: Ordered Pepcid 20 mg oral tablet 1 tablet = 20 mg, By Mouth, Daily, Maintenance, 02/06/24 10:13:00 EDT, Partial fill upon patient request if the prescription is for a schedule II opioid drug. Start Date: 02/06/24 Status: Ordered predniSONE 10 mg oral tablet See Instructions, Prednisone 30mg daily x 3 days ( 02/21-02/23) follow by 20mg daily x 3 days ( 02/24-02/26) follow by 10mg daily x 3 days ( 02/27-03/01), # 18 tablet, 0 Refills, Maintenance, 02/22/24 11:36:00 EDT, Tablet, Partial fill upon patient request... Start Date: 02/22/24 Status: Ordered simvastatin 40 mg oral tablet [...] EDT, Route to Pharmacy Electronically, [facility]/pharmacy #[id number], Partial fill upon patient request if the prescription is for a schedule II opioi... Start Date: 11/01/22 Status: Ordered Toprol XL 50 mg oral tablet, extended release 50 mg, 1, tablet, By Mouth, Daily, Maintenance, 02/06/24 10:05:00 EDT, Partial fill upon patient request if the prescription is for a schedule II opioid drug. Start Date: 02/06/24 Status: Ordered Toprol XL 50 mg oral tablet, extended release 50 mg, XL Tablet, By Mouth, Hold for: SBP<110,HR<70, 02/22/24 9:00:00 EDT Start Date: 02/22/24 Stop Date: 02/22/24 Status: Completed Trulicity Pen 0.75 mg/0.5 mL subcutaneous solution 0.5 mL = 0.75 mg, Subcutaneous Injection, Every , 0 Refills, Maintenance, 10/26/22 20:09:00EDT, Solution, Partial fill upon patient request if the prescription is for a schedule II opioid drug. Start Date: 10/26/22 Status: Ordered Tums 500 mg oral tablet, chewable 1,000 mg, 2, tablet, Chew, Every 4 hours, PRN, Maintenance, for indigestion, 02/11/24 19:36:00 EDT,Partial fill upon patient request if the prescription is for a schedule II opioid drug. Start Date: 02/11/24 Status: Ordered Vitamin D2 50,000 intl units (1.25 mg) oral capsule 1 capsule = 50,000 International_Units, By Mouth, Every , 0 Refills, Maintenance, 03/29/22 19:45:00 EDT, Partial fill upon patient request if the prescription is for a schedule II opioid drug. Start Date: 03/29/22 Status: Ordered Problem List Condition Confirmation Course Effective Dates Status H ealth Status Informant Cataract Confirmed Active Chronic diastolic congestive heart failure Confirmed Active Chronic obstructive lung disease Confirmed Active COVID-19 1 Confirmed 11/22/21 Active Wheelchair dependent Confirmed Active Hyperlipidemia Confirmed Active Hypertensive disorder Confirmed Active Insulin dependent type 2 diabetes mellitus Confirmed Active Morbid obesity Confirmed Active Neurogenic bladder Confirmed Active Neurologic disorder associated with type II diabetes mellitus Confirmed Active Obstructive sleep apnea on CPAP Confirmed Active Paraparesis of both lower limbs Confirmed Active Paroxysmal atrial fibrillation Confirmed Active Postmenopausal bleeding Confirmed Active Severe obesity Confirmed Active Chronic indwelling Rai catheter Confirmed Active 1Problem added by Discern Expert Results Radiology Reports * Exam Date Time Procedure Performing Provider Status 02/20/24 1:[address] Soft Tissue Neck W/O Contrast Josue Beckman; Auth (Verified) Notes: (CT Soft Tissue Neck W/O Contrast) Reason For Exam: cough;Other: RESULT: CT Soft Tissue Neck W/O Contrast CT Soft Tissue Neck W/O Contrast INDICATION/CLINICAL QUESTION: Reason: Other:; cough; Clinical Question(s): Tracheal Stenosis Compression; Special Instructions: Dynamic CT with inspiratory and expiratory film; Order Comment: / Tracheal Stenosis/Compression. TECHNIQUE: Spiral CT neck without contrast formatted in 3 planes. Weight-based protocol using automatic tube modulation was used to optimize exposure parameters. CTDIvol Body: 16.10 mGy, DLP Body: 951 mGy*cm. COMPARISON: CT chest 01/28/2024. FINDINGS: Film Developing Machine Operator View Findings, Lines and Tubes: None. Intracranial structures: Visualized portions are unremarkable. Orbits: Hyperintensity within the left lobe likely reflects intravitreal silicone injection. Curvilinear left globe prosthesis is in place anteriorly. There appears to be right lens replacement, incompletely visualized. Visualized right orbit is otherwise unremarkable. Paranasal sinuses and mastoids: Visualized portions are clear. Mucosal surfaces and airway: * Examination was performed in both inspiratory and expiratory phases. The vocal cords are fully apposed on the inspiratory examination, indicating that the patient was likely holding her breath at end inspiration. The vocal cords are also nearly fully apposed on the expiratory phase examination (likely holding breath after expiration rather than true dynamic expiratory phase). The mucosal surfaces of the larynx are therefore not well assessed on this examination. The mucosal surfaces of the airway above this level in the pharynx are also partially decompressed, limiting mucosal evaluation, particularly on the expiratory phase study. Within this limitation, no asymmetry or area of discrete nodularity is seen. * However, below this level, there is change in caliber of the trachea between the inspiratory and expiratory phases of the examination, measured as follows (measured AP X TRV on coronal and sagittalimages): * At the level of the thyroid and subglottic larynx, there is only minimal decrease in caliber on expiratory phase imaging (18 x 17 mm on inspiration; 18 x 16 mm on expiration). * In the upper chest, there is indentation of the anterior trachea by the tortuous brachiocephalic artery. At this level, diameter on inspiration is 20 x 26 mm, decreasing to 12 x 23 mm on expiration. * In the lower trachea at the level of the aortic arch, diameter of the trachea decreases from 22 x25 mm on inspiration to 15 x 21 mm in expiration. * There is also decrease in caliber of the visualized portions of the upper mainstem bronchi between inspiration and expiration. On the right, diameter decreases from 14 x 20 mm to 8 x 18 mm. On the left, diameter decreases from 15 x 16 mm to 10 x 16 mm. Superficial and deep neck spaces: No mass, fluid collection, or inflammatory change. Cervical lymph nodes: Normal in size and morphology. Salivary glands: The parotid glands and submandibular glands are normal. Thyroid gland: The right thyroid lobe is enlarged and heterogeneous, measuring up to 5.4 x 4.8 x 7.8 cm (AP X TRV X SI). This results in shift of the airway to the left of midline. The left thyroid lobe is normal in size with mild heterogeneity of internal attenuation. Vascular structures: Scattered atherosclerotic calcifications. Upper chest: The upper lungs are clear. The upper mediastinum is unremarkable. Bones and teeth: No acute abnormalities. Multilevel degenerative changes of the spine are noted. Inaddition, severe degenerative changes of the glenohumeral joints are noted with [id number] configuration and remodeling of the glenoid 72 rods on each side. Mild degenerative changes are noted of the supra clavicular articulations. IMPRESSION: 1. Timing of the expiratory phase imaging is suboptimal, with appearance more suggestive of end expiratory phase than true dynamic mid-expiratory phase. However, there is decrease in caliber of the trachea and proximal mainstem bronchi in the chest on expiration compared to inspiratory phase imaging, which may be under estimated due to the above limitation. This suggests underlying tracheobronchomalacia. 2. The right lobe of the thyroid is enlarged and shifts the airway towards the left, but there is only minimal change in caliber of the subglottic larynx/upper trachea between inspiratory and expiratory phase. WSN: [id number] Ordering Physician: Colleen Anna Dictated By: Rocio Guerin MD Dictated Date/Time: 02/20/24 11:09 a Reviewed By: Rocio Guerin MD Signed By: Rocio Guerin MD Signed Date/Time: 02/20/24 11:09 am Transcribed By: SOLOMON Transcribed Date/Time: 02/20/24 10:21 am * Exam Date Time Procedure Performing Provider Status 02/17/24 1:13 AM Chest Portable Martinez Ribera; Auth (Verified) Notes: (Chest Portable) Reason For Exam: Shortness of Breath RESULT: Chest Portable Chest Portable performed semiupright at 1:00 AM Hx of Present Illness: pt presenting from SNF for SOB, pt found to be tachypneic in the 40's put onCPAP for respiratory support. LS ronchus bilaterally. see level 1 sheet; Reason: Shortness of Breath; Clinical Question(s): CHF COMPARISON: Multiple prior chest x-rays, the most recent of which is dated 02/11/2024. FINDINGS: LINES AND TUBES: None. LUNGS AND PLEURA: Retrocardiac left basilar density is seen with blunting of the left costophrenic angle. Patchy airspace opacity in the right lung base is seen. No pleural effusion. No pneumothorax, although lung apices partially obscured by patient's chin. HEART, MEDIASTINUM AND KOLTON: Heart is normal in size. Normal mediastinal and hilar contour. BONES AND SOFT TISSUES: No acute abnormality. IMPRESSION: Trace left pleural effusion with adjacent retrocardiac left basilar density which may reflect atelectasis or pneumonia. Additional patchy airspace opacities also seen at the right lung base. WSN: [id number] Ordering Physician: Conrado Whitten Dictated By: Cora Khalil MD Dictated Date/Time: 02/17/24 6:46 am Reviewed By: Cora Khalil MD Signed By: Cora Khalil MD Signed Date/Time: 02/17/24 6:46 am Transcribed By: SOLOMON Transcribed Date/Time: 02/17/24 6:45 am Vital Signs Most recent to oldest [Reference Range]: 1 2 3 Height 168 cm (02/22/24 11:33 AM) 168 cm (02/22/24 6:00 AM) 168 cm (02/21/24 10:00 PM) Weight 120 kg (02/17/24 5:41 AM) Oxygen Saturation [94-100 %] 98 % (02/22/24:33 AM) 95 % (02/22/24 6:00 AM) 96 % (02/21/24 10:00 PM) Pulse Rate [55-90 bpm] 80 bpm (02/22/24:33 AM) 80 bpm (02/22/24 8:02 AM) 78 bpm (02/22/24 6:00 AM) Body Mass Index [18.5-24.99 kg/m2] 42.52 kg/m2 *>HHI* (02/17/24 5:41 AM) Blood Pressure [90-138/55-84 mm Hg] 97/41mm Hg (02/22/24: AM) 130/65mm Hg (02/22/24 8:01 AM) 128/62mm Hg (02/22/24 6:00 AM) Respiratory Rate [16-30 br/min] 20 br/min (02/22/24:15 PM) 22 br/min (02/22/24 AM) 20 br/min (02/22/24 8:01 AM) Temperature [96.8-100.4 DegF] 98.5 DegF (02/22/24: AM) 98.2 DegF (02/22/24:00 AM) 97.5 DegF (02/21/24 10:00 PM) Liters per Minute 3 L/min (02/22/24: AM) 2 L/min (02/22/24 6:00 AM) 2 L/min (02/21/24 10:00 PM) Mode of Delivery (Oxygen) Nasal cannula (02/22/24 AM) Nasal cannula (02/22/24 6:00 AM) Nasal cannula (02/21/24 10:00 PM) Blood pressure sites Arm, right (02/22/24: AM) Arm, left (02/22/24 6:00 AM) Arm, left (02/21/24 10:00 PM) Temperature Route Oral (02/22/24:33 AM) Oral (02/22/24 6:00 AM) Oral (02/21/24 10:00 PM) Dry Weight 120 kg (02/17/24 5:41 AM) Social History Social History Type Response Smoking Status Former smoker; Tobac co user in household: No entered on: 01/17/17 Sex Admission evaluation note * Derek GONZALEZ, Jodie Amaya: PERFORM, MODIFY, MODIFY Event Display: Admission Note Authored Date: [id number] Patient: ??VIDHYA ADAM ? Age:??73 Years?Sex:??Female?:??1950?? Chief Complaint/Reason for Consultation pt presenting from SNF for SOB, pt found to be tachypneic in the 40's put on CPAP for respiratory support. LS ronchorus bilaterally. see level 1 sheet History of Present Illness 73-year-old female with PMH of paroxysmal atrial fibrillation Eliquis, initially heart failure, COPD on 2 L of nasal cannula at baseline, morbid obesity, ERICKA on CPAP, IDDM, chronic indwelling Rai catheter, recent admission for pneumonia and discharged on 02/12 brought to the ED from nursing facility due to shortness of breath and pleuritic chest pain. ?? Patient's medical chart reviewed, seen and examined at bedside.?? Not able to obtain any history from the patient as she is on CPAP.?? Does endorses improvement in her breathing after placing on CPAP.?? Currently denies having any chest pain.?? Denies having any new cough.?? No fevers, chills, nausea, vomiting.?? As per the chart review patient stated that she is having continued cough since discharge and yesterday she found to be hypoxic in the 90s on room air which improved after albuterol and NIV.?? She was sent to the ED for further evaluation. ?? Initially in the ED patient was afebrile, HR 84, RR 17, BP 124/99, saturation 100% on BiPAP 60% FiO2.?? No leukocytosis WBC of 8.2, Hgb 13.9, PLT 184, electrolytes normal, bicarb of 39 likely due to CO2 retention [patient has bicarb of 29 upon discharge] BUN/creatinine 14/0.42, blood glucose 277, chest x- ray in process.?? Patient was given DuoNebs, Lasix 40, Solu-Medrol 125, vancomycin and Zosyn.?? [facility] for further management Review of Systems All systems reviewed and are negative except as mentioned in HPI Objective Measurements?? Height: 168 cm (02/17/24) Weight: 120 kg (02/17/24) Dry Weight: 120 kg (02/17/24) Body Mass Index:??42.52 kg/m2??Critical (02/17/24) ? Vital Signs?? Temperature: 97.6 DegF (02/17/24 05:41:00) Temperature Route: Axillary (02/17/24 05:41:00) Pulse Rate: 69 bpm (02/17/24 06:00:00) Heart Rate Monitored: 67 bpm (02/17/24 04:38:00) Respiratory Rate: 24 br/min (02/17/24 06:00:00) Systolic Blood Pressure:??157 mm Hg??High (02/17/24 06:00:00) Diastolic Blood Pressure: 81 mm Hg (02/17/24 06:00:00) Blood pressure sites: Arm, right (02/17/24 06:00:00) Mean Arterial Pressure: 107 mm Hg (02/17/24 05:41:00) Pulse Pressure: 76 mm Hg (02/17/24 06:00:00) Oxygen Saturation: 95 % (02/17/24 06:00:00) Mode of Delivery (Oxygen): CPAP (02/17/24 06:00:00) FiO2: 30 % (02/17/24 04:38:00) Early Warning Score: 7 (02/17/24 07:22:22) ? Pain Scores 1 - 10 Pain Scale Score: 0 (01:10) ?? Intake/Output? 02/16 03:21 02/16 07:00 02/15 07:00 02/14 07:00 02/13 07:00 ?? 02/16 08:07 02/16 08:07 02/16 06:59 02/15 06:59 02/14 06:59 Intake ?0 ?0 ?0 ?0 ?0 Output ?150 ?0 ?150 ?0 ?0 Net Total ? -150 ?0 ? -150 ?0 ?0 ? Precautions No Precautions documented.? Physical Exam Gen-on CPAP,??able to speak??in short sentences HEENT- Normocephalic, Atraumatic, Neck-supple, no JVD Heart-S1S2(+),??regular, no murmurs. lungs-poor bilateral air entry,??slight wheezing on the right upper lung ruiz Abdomen-soft, nontender,nondistended,??bowel sounds present, No guarding. Extremities-pulses palpable. No pedal edema. No calf tenderness. Neurological-not able to assess neuroexam, oriented to self and place Assessment/Plan 73-year-old female with PMH of paroxysmal atrial fibrillation Eliquis, initially heart failure, COPD on 2 L of nasal cannula at baseline, morbid obesity, ERICKA on CPAP, IDDM, chronic indwelling Rai catheter, recent admission for pneumonia and discharged on 02/12 brought to the ED from nursing facility due to shortness of breath and pleuritic chest pain. Initially in the ED patient was afebrile, HR 84, RR 17, BP 124/99, saturation 100% on BiPAP 60% FiO2.?? No leukocytosis WBC of 8.2, Hgb 13.9, PLT 184, electrolytes normal, bicarb of 39 likely due to CO2 retention [patient has bicarb of 29 upon discharge] BUN/creatinine 14/0.42, blood glucose 277, chest x- ray in process.?? Patient was given DuoNebs, Lasix 40, Solu-Medrol 125, vancomycin and Zosyn.?? Patient will be admitted to [facility] for further management ?? 1. ??Shortness of breath ??(R06.02) 2. ??COPD exacerbation ??(J44.1) 3. ??Acute respiratory failure with hypoxia and hypercapnia ??(J96.01) 4. ??Chronic hypoxic respiratory failure ??(J96.11)??at baseline on 2 L of nasal cannula 5. ??Pneumonia ??(J18.9) Vitals as per unit standards Supplemental oxygen as needed DuoNebs standing and as needed S/p Solu-Medrol 1.5 mg in the ED Prednisone 40 mg daily S/p vancomycin and Zosyn in the ED Pro-Joe 0.03.. ??Will hold off on??vancomycin and Zosyn??and continue with??doxycycline as patient is already on it On BiPAP Follow-up with ABG, with improvement in bicarb??can??gradually titrate down to nasal cannula N.p.o. while on BiPAP??guaifenesin dexamethasone for the cough Montelukast Guaifenesin dexamethasone for cough ?? 6. ??Paroxysmal atrial fibrillation ??(I48.0)??we will continue with??Eliquis??5 mg twice daily and??metoprolol 7. ??Chronic diastolic congestive heart failure ??(I50.32)??Lasix 80 mg daily,??metoprolol, lisinopril, simvastatin 8. ??Obstructive sleep apnea on CPAP ??(G47.33) 9. ??Insulin dependent type 2 diabetes mellitus ??(E11.9)??glargine 20 units??due to n.p.o. status,at home takes??54 units,??hypoglycemia emergency measures, gabapentin 300 mg 3 times daily??, lispro sliding scale 10. ??Chronic indwelling Rai catheter ??(Z97.8)??Rai care. GERD???famotidine 20 mg daily ?? VTE Prophylaxis:??Continue on?home Eliquis ?VTE Prophylaxis Assessment:??VTE Prophylaxis Ordered ?? Discharge Planning:??Respiratory failure ?? Code Status:??Full resuscitation, signed MOLST in cis ?Order Code Status:??Code Status Ordered ? Histories Allergies Allergies ?(Active and Proposed Allergies Only) Silvadene? (Severity: Unknown severity, Onset: Unknown) ?Reactions: unsure, skin alicea ? Past Medical History/Problem List Active Problems(17) Cataract Chronic diastolic congestive heart failure Chronic indwelling Rai catheter Chronic obstructive lung disease COVID-19 Hyperlipidemia Hypertensive disorder Insulin dependent type 2 diabetes mellitus Morbid obesity Neurogenic bladder Neurologic disorder associated with type II diabetes mellitus Obstructive sleep apnea on CPAP Paraparesis of both lower limbs Paroxysmal atrial fibrillation Postmenopausal bleeding Severe obesity Wheelchair dependent ? Past Surgical History cataract surgery ? Social History Alcohol Details:??Use: Never. Substance Abuse Details:??Use: Never. Tobacco Details:??Former smoker, Tobacco user in household: No. ? Family History No Family History documented. ? Medications Home Medications Acetaminophen (acetaminophen 325 mg oral tablet)?650?Milligram?2?tablet?By Mouth?Every 4 hours?as needed?as needed for fever/pain Albuterol (albuterol 0.083% inhalation solution)?3?Milliliter?2.5?Milligram?Neb?Every 6 hours?as needed?Wheezing/Shortness of Breath?ICD J45.909as needed every 6 hours for wheezing/ shortness of breath Albuterol/Ipratropium (albuterol-ipratropium 3 mg-0.5 mg/3 ml inhalation solution)?3?Milliliter?Neb?3 times a day Albuterol/Ipratropium (albuterol-ipratropium 3 mg-0.5 mg/3 ml inhalation solution)?3?Milliliter?Inhalation?4 times a day?as needed?Wheezing/Shortness of Breath apixaban (Eliquis 5 mg oral tablet)?1?tab(s)?5?Milligram?By Mouth?2 times a day Aspirin (aspirin 81 mg oral tablet, chewable)?81?Milligram?1?tablet?By Mouth?Daily Benzonatate (benzonatate 200 mg oral capsule)?200?Milligram?By Mouth?3 times a day?as needed?Cough?for 5?Days Bisacodyl (Dulcolax 10 mg rectal suppository)?1?suppository(ies)?10?Milligram?Rectall y?Daily?as needed?as needed for constipation Calcium Carbonate (Tums 500 mg oral tablet, chewable)?1,000?Milligram?2?tablet?Chew?Every 4 hours?as needed?for indigestion dulaglutide (Trulicity Pen 0.75 mg/0.5 mL subcutaneous solution)?0.5?Milliliter?0.75?Milligram?Subcutaneous Injection?Every Ergocalciferol (Vitamin D2 50,000 intl units (1.25 mg) oral capsule)?1?capsule?50,000?International Unit?By Mouth?Every Famotidine (Pepcid 20 mg oral tablet)?1?tab(s)?20?Milligram?By Mouth?Daily Fluticasone Nasal (Flonase Allergy Relief 50 mcg/inh nasal spray)?1?spray(s)?50?Microgram?Nares, Both?2 times a day fluticasone-vilanterol (Breo Ellipta 200 mcg-25 mcg/inh inhalation powder)?1?puff(s)?Inhalation?Daily Furosemide (Lasix 80 mg oral tablet)?80?Milligram?1?tablet?By Mouth?Daily?for 30?Days Gabapentin (gabapentin 300 mg oral capsule)?300?Milligram?1?capsule?By Mouth?3 times a day Guaifenesin (guaiFENesin 100 mg/5 mL oral liquid)?10?Milliliter?200?Milligram?By Mouth?4 times a day?as needed?for cough Insulin Glargine (Lantus Solostar Pen 100 units/mL subcutaneous solution)?54?unit(s)?Subcutaneous Injection?Daily at bedtime Insulin Lispro (Humalog Kwik Pen 100 units/mL subcutaneous injection)?3-11 units?SubcutaneousInjection?3 times a day before meals?As directed per sliding [id number] [id number] -[id number]= 9 [id number]= 11 units Lisinopril (lisinopril 5 mg oral tablet)?5?Milligram?1?tablet?By Mouth?Daily Metformin (metFORMIN 850 mg oral tablet)?1?tab(s)?850?Milligram?By Mouth?Daily Metoprolol (Toprol XL 50 mg oral tablet, extended release)?50?Milligram?1?tablet?By Mouth?Daily Milk of Magnesia (Milk of Magnesia 8% oral suspension)?30?Milliliter?2.4?gram?By Mouth?Daily?as needed?for constipation Montelukast (Singulair 10 mg oral tablet)?10?Milligram?1?tablet?By Mouth?Daily inPM nalOXONE (Narcan 4 mg/0.1 mL nasal spray)?1?spray(s)?4?Milligram?Once?as needed?as needed Nystatin Topical (Nystop 859651 u/gm powder)?1?applicator?Topically?2 times a day Oxybutynin (oxybutynin 5 mg/24 hours oral tablet, extended release)?1?tab(s)?5?Milligram?By Mouth?Daily at bedtime Oxygen?2?Liter?Nares, Both?Daily PredniSONE (predniSONE 20 mg oral tablet)?See Instructions?Prednisone taper dose as follows 30 mg for 2 days, 20 mg for 2 days, 10 mg for 2 days and then stop Simvastatin (simvastatin 40 mg oral tablet)?40?Milligram?1?tablet?By Mouth?Daily at bedtime Sodium Biphosphate-Sodium Phosphate (Fleet Enema 19 gm-7 gm rectal enema)?1?Each?Rectally?Once?as needed?for constipation ? Inpatient Medications Medications (35) Active SCHEDULED: (18) Apixaban 5 mg Tablet (Eliquis) ??5 mg, By Mouth, 2 times a day Aspirin 81 mg Chew Tablet (aspirin 81 mg oral tablet, chewable) ??81 mg, By Mouth, Daily Doxycycline 100 mg Inj (Doxycycline IVPB) ??100 mg, IVPB, Every 12 hours Famotidine 20 mg Tablet (Pepcid 20 mg oral tablet) ??20 mg, By Mouth, Daily Fluticasone Propionate 50mcg/inh Nasal [place] (fluticasone 50 mcg/inh nasal spray) ??50 mcg 1 sprays, Nares, Both, 2 times a day Furosemide 80 mg Tablet (Lasix 80 mg oral tablet) ??80 mg, By Mouth, Daily Gabapentin 300 mg Capsule (gabapentin 300 mg oral capsule) ??300 mg, By Mouth, 3 times a day Insulin Glargine 100 units/mL Inj (Insulin Glargine Inj) ??40 units 0.4 mL, Subcutaneous Injection,Daily at bedtime Insulin Glargine 100 units/mL Inj (Insulin Glargine Inj) ??20 units 0.2 mL, Subcutaneous Injection,Once Insulin Lispro 100 units/mL Inj (Insulin LISPRO Sliding Scale) ??2-10 units, Subcutaneous Injection, 3 times a day before meals Lisinopril 5 mg Tablet (lisinopril 5 mg oral tablet) ??5 mg, By Mouth, Daily Metoprolol 50 mg XL Tablet (Toprol XL 50 mg oral tablet, extended release) ??50 mg, By Mouth, Daily Montelukast 10 mg Tablet (Singulair 10 mg oral tablet) ??10 mg, By Mouth, Daily at supper NaCl 0.9% Flush 3ml (NaCL 0.9% Flush) ??3 mL, IV Push, Every 8 hours Nystatin Powder ??1 application, Topically, 2 times a day Oxybutynin 5 mg ER Tablet (oxybutynin 5 mg/24 hours oral tablet, extended release) ??5 mg, By Mouth, Daily at bedtime PredniSONE 20 mg Tablet (predniSONE 20 mg oral tablet) ??40 mg, By Mouth, Daily Simvastatin 20 mg Tablet (simvastatin 20 mg oral tablet) ??40 mg, By Mouth, Daily at bedtime CONTINUOUS: (0) PRN: (17) Acetaminophen 325 mg Tablet (Acetaminophen Tablet) ??650 mg, By Mouth, Every 4 hours Benzonatate 100 mg Capsule (benzonatate 100 mg oral capsule) ??200 mg, By Mouth, 3 times a day Bisacodyl 10 mg Suppository (Bisacodyl Supp) ??10 mg 1 supp, Rectally, Daily Calcium Carbonate 500 mg (Calcium 200 mg) Chewable Tablet (Tums 500 mg oral tablet, chewable) ??1,000 mg 2 tablet, Chew, Every 4 hours Dextromethorphan-Guaifenesin 20 mg-200 mg/10 mL Liqu UD (Robitussin DM Liquid) ??10 mL, By Mouth, Every 4 hours Dextrose Inj Syringe (Dextrose 50% Inj Syringe (25Gm)) ??12.5 Gm, IV Push Slowly, Every 20 minutes Dextrose Inj Syringe (Dextrose 50% Inj Syringe (25Gm)) ??25 Gm, IV Push Slowly, Every 15 minutes Docusate Sodium 100 mg Capsule (Docusate Sodium Capsule) ??100 mg 1 capsule, By Mouth, 2 times a day Glucagon 1 mg Inj (Glucagon Inj) ??1 mg, Intramuscular, Once Glucose 40% Gel (15 Gm) (Glucose Gel) ??15 Gm, By Mouth, Every 20 minutes Glucose 40% Gel (15 Gm) (Glucose Gel) ??30 Gm, By Mouth, Every 20 minutes Magnesium Hydroxide 8% Susp UD (Milk of Magnesia Liquid) ??30 mL, By Mouth, Daily Melatonin 3 mg Tablet (Melatonin Tablet) ??3 mg, By Mouth, Daily at bedtime NaCl 0.9% Flush 3ml (NaCL 0.9% Flush) ??3 mL, IV Push, Every 8 hours Polyethylene Glycol 17 Gm Powder (MiraLax Powder) ??17 Gm 1 pack/packet, By Mouth, Daily Senna Tablet ??8.6 mg 1 tablet, By Mouth, 2 times a day Simethicone 80 mg Chewable Tablet (Simethicone Tablet) ??80 mg, Chew, 3 times a day ? Results Recent Labs BACTERIOLOGY Blood Culture Results Final report ()?? 02/11/2024 10:23 ?? BLOOD COUNT & DIFF WBC 8.2 k/mm3 ()?? 02/17/2024 00:50 RBC 5.52 m/mm3 (High)?? 02/17/2024 00:50 Hgb 13.9 Gm/dL ()?? 02/17/2024 00:50 Hct 44.1 % ()?? 02/17/2024 00:50 MCV 79.9 femtoliters (Low)?? 02/17/2024 00:50 MCH 25.2 pg (Low)?? 02/17/2024 00:50 MCHC 31.5 g/dL (Low)?? 02/17/2024 00:50 Platelet Count 184 k/mm3 ()?? 02/17/2024 00:50 RDW-SD 55.0 femtoliters (High)?? 02/17/2024 00:50 MPV 10.4 femtoliters ()?? 02/17/2024 00:50 Nucleated RBC (Automated) 0.0 #/100 WBC'S ()?? 02/17/2024 00:50 Abs. NRBC 0.0 k/mm3 ()?? 02/17/2024 00:50 Abs. Neut 5.8 k/mm3 ()?? 02/17/2024 00:50 Abs. Lymph 1.5 k/mm3 ()?? 02/17/2024 00:50 Abs. [place] 0.7 k/mm3 ()?? 02/17/2024 00:50 Abs. Eo 0.1 k/mm3 ()?? 02/17/2024 00:50 Abs. Baso 0.0 k/mm3 ()?? 02/17/2024 00:50 Neut % 71.1 % ()?? 02/17/2024 00:50 Lymph % 18.6 % ()?? 02/17/2024 00:50 [place] % 8.7 % ()?? 02/17/2024 00:50 Eos % 1.3 % ()?? 02/17/2024 00:50 Baso % 0.1 % ()?? 02/17/2024 00:50 Imm Gran 0.2 % ()?? 02/17/2024 00:50 Abs. Imm Gran 0.0 k/mm3 ()?? 02/17/2024 00:50 ?? BLOOD GAS pH, Venous 7.42 ()?? 02/17/2024 00:50 ?? CARDIAC Nt-Probnp 268 pg/mL (High)?? 02/17/2024 00:50 High Sensitivity Troponin (HSTnT) 19 ng/L (High)?? 02/17/2024 02:50 ?? CHEM GENERAL Sodium 133 mmol/L ()?? 02/17/2024 00:50 Potassium 3.9 mmol/L ()?? 02/17/2024 00:50 Chloride 85 mmol/L (Low)?? 02/17/2024 00:50 Bicarbonate Level 39 mmol/L (High)?? 02/17/2024 00:50 Anion Gap 9 ()?? 02/17/2024 00:50 Glucose Level 277 mg/dL (High)?? 02/17/2024 00:50 Glucose, POC 313 mg/dL (High)?? 02/17/2024 07:21 BUN 14 mg/dL ()?? 02/17/2024 00:50 Creatinine-Blood 0.42 mg/dL (Low)?? 02/17/2024 00:50 Estimated GFR Creatinine 104 ML/MIN/1.73 M2 ()?? 02/17/2024 00:50 Lactate 1.7 mmol/L ()?? 02/17/2024 00:50 ?? HEME OTHER Hold Blue Top SPECIMEN DISCARDED AFTER 4 HOURS. ()?? 02/17/2024 00:50 ?? MISC. CHEMISTRY Procalcitonin 0.03 ng/mL ()?? 02/17/2024 00:50 ?? URINE OTHER Est Creatinine Clearance 113.97 mL/min ()?? 02/17/2024 05:51 ?? VIROLOGY COVID-19 by RT-PCR NEGATIVE ()?? 02/17/2024 00:46 ? Urinalysis Est Creatinine Clearance: 113.97 mL/min (05:51) ?? Microbiology ?? COVID-19 (Novel Coronavirus), Rapid PCR?? Completed?? Source: Nasal Body Site: Nose Collected Dt/Tm: 02/17/2024 00:38 Last Updated Dt/Tm: 02/17/2024 03:34 ? Cardiology Labs Nt-Probnp:??268 pg/mL??High (02/17/24 00:50:00) High Sensitivity Troponin (HSTnT):??19 ng/L??High (02/17/24 02:50:00) High Sensitivity Troponin (HSTnT):??17 ng/L??High (02/17/24 00:50:00) ? EKG study * Event Display: ECG 12-Lead Authored Date: Please click on pdf link to open report * Event Display: ECG 12-Lead Authored Date: Ventricular Rate: 69 BPM Atrial Rate: 69 BPM P-R Interval: 186 ms QRS Duration: 104 ms Q-T Interval: 404 ms QTC Calculation(Bazett): 432 ms P [place]: 11 degrees R [place]: -9 degrees T [place]: 62 degrees Sinus rhythm with marked sinus arrhythmia Moderate voltage criteria for LVH, may be normal variant ( R in aVL , [place] product ) Septal infarct , age undetermined Abnormal ECG When compared with ECG of 11-FEB-2024 10:01, Premature atrial complexes are no longer Present Confirmed by ANISA GONZALEZ ANTONINO ([id number]) on 02/17/2024 9:42:24 AM Cabins[facility] * Gonzalo Early NP: PERFORM Event Display: [facility] Authored Date: Patient: ??VIDHYA ADAM ? Age:??73 Years?Sex:??Female?:??1950?? HS POC 458.?? insulin lispro 7u SC x1 ordered (1/2 sliding scale dose) with POC recheck.? * Shannan Iqbal RN: SIGN, PERFORM, VERIFY Event Display: [facility] Authored Date: Patient: VIDHYA ADAM Age: 73 years Sex: Female : 1950 Associated Diagnoses: None Author: Shannan Iqbal RN Findings Problem Related to Alteration in Psychosocial : Alteration in Psychosocial Function/new 02/21/2024 18:28 EDT Alteration in Psychosocial Related to Anxiety Goals & Outcomes, Psychosocial Pt will be free from anxiety, Pt will describe positive result from new behavior, Pt will identify & initiate alternate coping strategies Interventions, Psychosocial Assess psychosocial needs, Offer support; discuss coping strategies, Provide a calm, supportive environment, Provide chances to express concerns/emotions/expectations BH Goals/Interventions, Psychosocial Yes Psychosocial, Problem Start 02/19/2024 5:26 Reviewed Plan with, Psychosocial Patient Patient Progression, Psychosocial Pt progressing according to plan . Alteration in Respiratory Function (new) : Alteration in Respiratory Function/new 02/21/2024 18:28 EDT Alteration in Resp Status Related to Pneumonia Goals & Outcomes, Respiratory Pt will maintain/resume baseline physical assessment Interventions, Respiratory Assess for and report S&S of respiratory distress, Position for comfort & optimal oxygenation, Monitor sputum color & consistency. Report changes to MD, Teach/encourage use of incentive spirometer, Teach the proper use of inhalers BH Goals/Interventions, Respiratory Yes Respiratory, Problem Start 02/17/2024 7:30 Reviewed Plan with, Respiratory Patient Patient Progression, Respiratory Patient progressing according to plan . Nursing Data Vital Signs : VITAL SIGNS SECTION 02/21/2024 15:36 EDT Temperature 98.1 DegF Temperature Route Oral Pulse Rate 78 bpm Respiratory Rate 20 br/min Systolic Blood Pressure 107 mm Hg Diastolic Blood Pressure 86 mm Hg H Blood pressure sites Arm, left Mean Arterial Pressure 93 mm Hg Pulse Pressure 21 mm Hg Oxygen Saturation 98 % Liters per Minute 2 L/min Mode of Delivery (Oxygen) Nasal cannula . Evaluation PT is A&Ox4, VSS. She is currently on 2L O2 and uses suction at bedside independently to clear secretions. PT coughed throughout the day, at times bringing up mucus. She complained that she oftenfelt as though there was mucus in her throat that she is unable to bring up. PCT reported PT putting a spoon in the back of her throat. I asked PT why she was doing that and she stated that she was trying to remove stuff stuck in her throat. I discouraged this behavior and pt was not seen trying again. PT's daughter did bring a #26 turkish rai from home and the patients current rai which wasleaking badly was changed with 45cc's of water in the balloon. 45cc's of fluid required to hold rai in place per pt. PT's daughter did request a script for a new mattress upon discharge which was passed on to the MD. See biophysical for full assessment. . Discharge Information Case Management Discharge Plan : Case Management Discharge Plan Data 02/17/2024 8:22 EDT Discharge Nursing Homes/Rehab Facilities [facility] Discharge : Pulmonary Rehab Discharge Status 02/19/2024 1:15 EDT CPAP/BiPAP Mask Type Full CPAP/BiPAP Mask Size Large 02/17/2024 23:36 EDT CPAP/BiPAP Mask Type Full CPAP/BiPAP Mask Size Large 02/17/2024 4:38 EDT CPAP/BiPAP Mask Type Full CPAP/BiPAP Mask Size Large 02/17/2024 0:45 EDT CPAP/BiPAP Mask Type Full CPAP/BiPAP Mask Size Large Rehabilitation Discharge : Rehab Discharge Index 02/18/2024 9:09 EDT Full chart review completed Yes Hospital course Hospital course * Roberto GONZALEZ, Ileana Garrido: PERFORM Event Display: Progress Note Hospital Authored Date: Patient: ??VIDHYA ADAM ? Age:??73 Years?Sex:??Female?:??1950?? Subjective Seen and examined, vitals, labs and charts reviewed?? reported breathing is not that great , still have mild exp wheeze but oxygen requirement at baseline Reported has not had a bowel movement 3 days, will schedule bowel regimen ?? Appreciate pulmonary rehabilitation therapy aide evaluation, patient??is at baseline home O2 requirement, patient already has a AVAPS machine??at home but noncompliant, reinforced??compliance. Patient is baseline Thi lift dependent ?? Blood test today showed hyponatremia with sodium 128, fluid restriction,??repeat labs tomorrow Review of Systems Negative except as above Past Medical History Active Problems(17) Cataract Chronic diastolic congestive heart failure Chronic indwelling Ari catheter Chronic obstructive lung disease COVID-19 Hyperlipidemia Hypertensive disorder Insulin dependent type 2 diabetes mellitus Morbid obesity Neurogenic bladder Neurologic disorder associated with type II diabetes mellitus Obstructive sleep apnea on CPAP Paraparesis of both lower limbs Paroxysmal atrial fibrillation Postmenopausal bleeding Severe obesity Wheelchair dependent ? Past Surgical History cataract surgery ? Objective Vital Signs?? Temperature: 98.1 DegF (02/21/24 15:36:00) Temperature Route: Oral (02/21/24 15:36:00) Pulse Rate: 78 bpm (02/21/24 15:36:00) Respiratory Rate: 20 br/min (02/21/24 15:36:00) Systolic Blood Pressure: 107 mm Hg (02/21/24 15:36:00) Diastolic Blood Pressure:??86 mm Hg??High (02/21/24 15:36:00) Blood pressure sites: Arm, left (02/21/24 15:36:00) Mean Arterial Pressure: 93 mm Hg (02/21/24 15:36:00) Pulse Pressure: 21 mm Hg (02/21/24 15:36:00) Oxygen Saturation: 98 % (02/21/24 15:36:00) Liters per Minute: 2 L/min (02/21/24 15:36:00) Mode of Delivery (Oxygen): Nasal cannula (02/21/24 15:36:00) Early Warning Score: 2 (02/21/24 15:38:22) ? Physical Exam Awake alert, no acute distress, 2 L NC Left eye blind with artificial eye Bilateral??air entry with mild expiratory wheezing?? S1-S2, no MRG abdomen soft,??NTND, bowel sound present Extremities: No edema, warm peripheries AOx3, no??gross facial asymmetry or gross focal deficit, able to move all 4 extremities spontaneously _ Inpatient Medications Medications (44) Active SCHEDULED: (23) Albuterol/Ipratropium Inhalation Lisa 3mL (Duoneb Inhalation Solution) ??1 vials, BAND Nebulizer, 4 times a day Apixaban 5 mg Tablet (Eliquis) ??5 mg, By Mouth, 2 times a day Aspirin 81 mg Chew Tablet (aspirin 81 mg oral tablet, chewable) ??81 mg, By Mouth, Daily Breo Ellipta 200 mcg / 25 mcg Inhaler (Breo Ellipta 200 mcg-25 mcg Inhaler) ??1 puffs, Inhalation, Daily Budesonide 0.25 mg/2 mL Inhalation Susp (budesonide 0.25 mg/2 mL inhalation suspension) ??0.25 mg 2mL, BAND Nebulizer, 2 times a day Doxycycline 100 mg Tablet (Doxycycline Tablet) ??100 mg, By Mouth, Every 12 hours Famotidine 20 mg Tablet (Pepcid 20 mg oral tablet) ??20 mg, By Mouth, Daily Fluticasone Propionate 50mcg/inh Nasal [place] (fluticasone 50 mcg/inh nasal spray) ??50 mcg 1 sprays, Nares, Both, 2 times a day Furosemide 80 mg Tablet (Lasix 80 mg oral tablet) ??80 mg, By Mouth, Daily Gabapentin 300 mg Capsule (gabapentin 300 mg oral capsule) ??300 mg, By Mouth, 3 times a day Insulin Glargine 100 units/mL Inj (Insulin Glargine Inj) ??48 units 0.48 mL, Subcutaneous Injection, Daily at bedtime Insulin Lispro 100 units/mL Inj (Insulin LISPRO Sliding Scale) ??2-10 units, Subcutaneous Injection, 3 times a day before meals Lidocaine 5% Topical Patch (Lidocaine 5% Patch) ??1 each, Topically, Daily Lisinopril 5 mg Tablet (lisinopril 5 mg oral tablet) ??5 mg, By Mouth, Daily Metoprolol 50 mg XL Tablet (Toprol XL 50 mg oral tablet, extended release) ??50 mg, By Mouth, Daily Montelukast 10 mg Tablet (Singulair 10 mg oral tablet) ??10 mg, By Mouth, Daily at supper NaCl 0.9% Flush 3ml (NaCL 0.9% Flush) ??3 mL, IV Push, Every 8 hours Nystatin Powder ??1 application, Topically, 2 times a day Oxybutynin 5 mg ER Tablet (oxybutynin 5 mg/24 hours oral tablet, extended release) ??5 mg, By Mouth, Daily at bedtime PredniSONE 20 mg Tablet (predniSONE 20 mg oral tablet) ??40 mg, By Mouth, Daily Remove Patch (Remove Lidocaine Patch) ??1 each, Topically, Daily at bedtime Simvastatin 20 mg Tablet (simvastatin 20 mg oral tablet) ??40 mg, By Mouth, Daily at bedtime Sodium Chloride 3% Inhalation Lisa (Hypertonic Saline 3% Inhalation Lisa) ??3 mL, Neb, 2 times a day CONTINUOUS: (0) PRN: (21) Acetaminophen 325 mg Tablet (Acetaminophen Tablet) ??650 mg, By Mouth, Every 4 hours Albuterol/Ipratropium Inhalation Lisa 3mL (Duoneb Inhalation Solution) ??1 vials, BAND Nebulizer, Every 4 hours Benzonatate 100 mg Capsule (benzonatate 100 mg oral capsule) ??200 mg, By Mouth, 3 times a day Bisacodyl 10 mg Suppository (Bisacodyl Supp) ??10 mg 1 supp, Rectally, Daily Calcium Carbonate 500 mg (Calcium 200 mg) Chewable Tablet (Tums 500 mg oral tablet, chewable) ??1,000 mg 2 tablet, Chew, Every 4 hours Dextromethorphan-Guaifenesin 20 mg-200 mg/10 mL Liqu UD (Robitussin DM Liquid) ??10 mL, By Mouth, Every 4 hours Dextrose Inj Syringe (Dextrose 50% Inj Syringe (25Gm)) ??12.5 Gm, IV Push Slowly, Every 20 minutes Dextrose Inj Syringe (Dextrose 50% Inj Syringe (25Gm)) ??25 Gm, IV Push Slowly, Every 15 minutes Docusate Sodium 100 mg Capsule (Docusate Sodium Capsule) ??100 mg 1 capsule, By Mouth, 2 times a day Glucagon 1 mg Inj (Glucagon Inj) ??1 mg, Intramuscular, Once Glucose 40% Gel (15 Gm) (Glucose Gel) ??15 Gm, By Mouth, Every 20 minutes Glucose 40% Gel (15 Gm) (Glucose Gel) ??30 Gm, By Mouth, Every 20 minutes Magnesium Hydroxide 8% Susp UD (Milk of Magnesia Liquid) ??30 mL, By Mouth, Daily Melatonin 3 mg Tablet (Melatonin Tablet) ??3 mg, By Mouth, Daily at bedtime NaCl 0.9% Flush 3ml (NaCL 0.9% Flush) ??3 mL, IV Push, Every 8 hours Ondansetron 2mg/mL Inj (2mL Vial) (Zofran Inj) ??4 mg, IV Push, Every 6 hours Polyethylene Glycol 17 Gm Powder (MiraLax Powder) ??17 Gm 1 pack/packet, By Mouth, Daily Polyvinyl Alcohol 1.4% Opthalmic Solution/Artificial Tears (Artificial Tears1.4%) ??2 drops, Eye, Right, Every 4 hours Senna Tablet ??8.6 mg 1 tablet, By Mouth, 2 times a day Simethicone 80 mg Chewable Tablet (Simethicone Tablet) ??80 mg, Chew, 3 times a day Simethicone 80 mg Chewable Tablet (simethicone 80 mg oral tablet, chewable) ??80 mg, Chew, 3 times a day ? 72 Hour Antibiotic History Active Antibiotics Calendar Day Last Administered First Administered Doxycycline??100 mg, By Mouth, Every 12 hours ?3 02/21/2024 10:03 02/19/2024 22:44 ? Stopped Antibiotics Stop Date/Time Last Administered First Administered Doxycycline??100 mg, 100 mL/hr, IVPB, Every 12 hours 02/19/2024 12:50 02/19/2024 08:06 02/17/2024 08:25 ? Results Microbiology ?? Blood Culture?? Completed?? Source: Blood Body Site: ?? Collected Dt/Tm: 02/17/2024 00:51 Last Updated Dt/Tm: 02/18/2024 08:21 ?? Blood Culture #2?? Completed?? Source: Blood Body Site: ?? Collected Dt/Tm: 02/17/2024 00:51 Last Updated Dt/Tm: 02/18/2024 08:21 ?? Blood Culture Result?? Completed?? Source: Blood Body Site: ?? Collected Dt/Tm: 02/17/2024 00:50 Last Updated Dt/Tm: 02/18/2024 08:22 ?? Blood Culture 2 Results?? Completed?? Source: Blood Body Site: ?? Collected Dt/Tm: 02/17/2024 00:50 Last Updated Dt/Tm: 02/18/2024 08:22 ?? COVID-19 (Novel Coronavirus), Rapid PCR?? Completed?? Source: Nasal Body Site: Nose Collected Dt/Tm: 02/17/2024 00:38 Last Updated Dt/Tm: 02/17/2024 03:34 ? Assessment/Plan Chief Complaint: pt presenting from SNF for SOB, pt found to be tachypneic in the 40's put on CPAP for respiratory support. LS ronchorus bilaterally. see level 1 sheet ?? Diagnoses 1. ??Shortness of breath ??(R06.02) 2. ??COPD exacerbation ??(J44.1) 2. ??COPD exacerbation ??(J44.1) 3. ??Acute respiratory failure with hypoxia and hypercapnia ??(J96.01) 4. ??Chronic hypoxic respiratory failure ??(J96.11) 5. ??Pneumonia ??(J18.9) 6. ??Paroxysmal atrial fibrillation ??(I48.0) 7. ??Chronic diastolic congestive heart failure ??(I50.32) 8. ??Obstructive sleep apnea on CPAP ??(G47.33) 9. ??Insulin dependent type 2 diabetes mellitus ??(E11.9) 10. ??Chronic indwelling Rai catheter ??(Z97.8) ?? Patient is a 73-year-old female, history of COPD, on 2 L nasal , History of morbid obesity with obstructive sleep apnea/OHS on CPAP at night??noncompliant, insulin-dependent diabetes mellitus, diabetic neuropathy, hypertension, dyslipidemia, neurogenic bladder with chronic indwelling Rai catheter, nonambulatory at baseline, GABRIEL dependent, recent hospitalization and discharged on February 13, 2024 after treatment of pneumonia of left lower lobe, COPD with exacerbation.?? Was discharged to [facility] [place] [facility].?? Came back from SNF for shortness of breath, found to be tachypneic in the 40s and requiring NIV support. 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 Hospital course prolonged by hyponatremia ? Acute respiratory failure with hypoxia and hypercapnia (J96.01) Chronic hypoxic respiratory failure:??Baseline home O2 2 to 3 L ? Grouped with COPD exacerbation (J44.1), Shortness of breath (R06.02), Pneumonia (J18.9), Chronic hypoxic respiratory failure (J96.11), Obstructive sleep apnea on CPAP (G47.33) Hypomagnesemia ? Initially was placed on CPAP and was weaned off on , supplemental oxygen 3 L which is herbaseline recommend ?? Plan Appreciate pulmonary recommendations Continue DuoNeb 4 times daily, every 4 hours as needed Continue Bumex nebulizer twice daily Continue doxycycline 100 mg twice daily for treatment of pneumonia Continue Breo and Ellipta inhaler Continue montelukast Prednisone 40 mg daily for 5 days completed 02/20 Continue hypertonic saline twice daily Appreciate pulmonary apparent evaluation Closely monitor respiratory status Target oxygen 88 to 92% Reinforced NIV use for??ERICKA/OHS, CT finding of tracheobronchomalacia ?? Hyponatremia Sodium level 128??today 02/20 Likely??due to steroid use Plan: Fluid restriction 1 L Recheck electrolytes tomorrow ?? Paroxysmal atrial fibrillation (I48.0): HR well controlled Continue metoprolol?? and apixaban ?? Chronic diastolic congestive heart failure (I50.32): Continue Lasix and lisinopril cautiously with holding parameters. Monitor respiratory status closely. ?? Insulin dependent type 2 diabetes mellitus (E11.9): Noted to have component of steroid-induced hyperglycemia.?? Lantus was increased?? from 40 to 48 units Trulicity is nonformulary here. Continue gabapentin as prescribed. ?? Chronic indwelling Rai catheter (Z97.8): Rai care and change ?? VTE Prophylaxis: Continue on?? home Eliquis ? Ongoing Medical Necessity:??back to rehab once hypoNa improves ?Disclaimer: ??This note ??was accomplished with use of [employer] voice recognition software, which is prone to medical and other word misidentifications and grammatical errors. ??The physician does strive to identify and correct these, but some could still be present. ??Please do not hesitate to contact the physician for clarifications. Consult note * Burton Chapman DO: PERFORM Event Display: Consultation Note Authored Date: Patient: ??VIDHYA ADAM ? Age:??73 Years?Sex:??Female?:??1950?? Chief Complaint pt presenting from SNF for SOB, pt found to be tachypneic in the 40's put on CPAP for respiratory support. LS ronchorus bilaterally. see level 1 sheet Reason for Consultation tracheobronchomalacia History of Present Illness 72-year-old female with previous medical history of COPD, restrictive lung disease, obstructive sleep apnea noncompliant with??iVAPs and on home nighttime O2, chronic diastolic CHF, paroxysmal A-fib on Eliquis, insulin-dependent diabetes mellitus type 2??who presented to the hospital with shortnessof breath and respiratory failure.?? She has been treated for a COPD exacerbation and dynamic CT obtain has suggested tracheobronchomalacia.?? She has a PAP device at bedside but is intermittently adherent.?? Currently she complains of significant cough and inability to produce sputum which is causing some post-tussive emesis. Recent hospitalization for pneumonia and left lower lobe consolidationof prior CT has resolved.?? Review of Systems Constitutional:??No weight loss, fever, chills + weakness, fatigue Allergy/Immune: Denies any??Eczema or hives Eyes:??No visual loss, blurred vision, double vision or yellow sclera ENT:??No hearing loss, sneezing, congestion, runny nose or sore throat. Respiratory:??+ SOB, cough, sputum production Cardiovascular:??No chest pain, chest pressure or chest [...] pain or stiffness. Hematologic/Lymphatics:??No bleeding or bruising. No painful lymph nodes. Skin:??No rash or itching. Endocrine:??No reports of sweating. No cold or heat intolerance. No polyuria or polydipsia. Psychiatric:??No depression or anxiety. Physical Exam Vitals & Measurements T:??98.0?F?? TMIN:??97.2?F?? TMAX:??98.0?F?? HR:??80??(Peripheral)?? RR:??20?? BP:??116/62?? SpO2:??98%?? Constitutional: Alert,??awake. morbidly obese Mental Status: Oriented to person, place and time. Head: Normocephalic. Eyes: Pupils are equal, round and reactive to light. Extraocular muscles intact. Ear, Nose and Throat: Oropharynx clear, mucous membranes moist.?? Neck: Supple, Full range of motion. Respiratory: Inspiratory and expiratory wheezing and rhonchi Cardiovascular: S1 S2 regular. No murmurs, rubs or gallops. Gastrointestinal: Abdomen soft, non-tender, non-distended.?? Neurologic: Cranial nerves II-XII grossly intact. No focal neurological deficits.?? Musculoskeletal: No cyanosis or clubbing. No gross deformities.?? Psychiatric: Normal mood and affect Assessment/Plan Acute on chronic hypoxemic??hypercapnic respiratory failure Tracheobronchomalacia Obstructive sleep apnea with sleep related nocturnal hypoventilation Treatment emergent central sleep apnea while on BiPAP History of asthma/COPD Morbid obesity Restrictive lung disease ?? Would add 3 % hypertonic saline nebulizers, inhaled budesonide and mucinex to promote mucus clearance Chest PT, acapella Adherence to PAP is mainstay of therapy for tracheobronchomalacia May need pulmonary rehab nurse to determine exertional O2 requirements ?? Case discussed with the attending, Dr. Raza ?? Burton Chapman DO PGY-6 Pulmonary and Critical Care Medicine Fellow Problem List/Past Medical History Ongoing Cataract Chronic diastolic congestive heart failure Chronic indwelling Rai catheter Chronic obstructive lung disease COVID-19 Hyperlipidemia Hypertensive disorder Insulin dependent type 2 diabetes mellitus Morbid obesity Neurogenic bladder Neurologic disorder associated with type II diabetes mellitus Obstructive sleep apnea on CPAP Paraparesis of both lower limbs Paroxysmal atrial fibrillation Postmenopausal bleeding Severe obesity Wheelchair dependent Procedure/Surgical History ???Enucleation Eye (Left) (09/15/2015)???cataract surgery Medications Inpatient Acetaminophen Tablet, 650 mg, By Mouth, Every 4 hours, PRN Artificial Tears1.4%, 2 drops, Eye, Right, Every 4 hours, PRN aspirin 81 mg oral tablet, chewable, 81 mg, By Mouth, Daily benzonatate 100 mg oral capsule, 200 mg, By Mouth, 3 times a day, PRN Bisacodyl Supp, 10 mg= 1 supp, Rectally, Daily, PRN Breo Ellipta 200 mcg-25 mcg Inhaler, 1 puffs, Inhalation, Daily Dextrose 50% Inj Syringe (25Gm), 12.5 Gm, IV Push Slowly, Every 20 minutes, PRN Dextrose 50% Inj Syringe (25Gm), 25 Gm, IV Push Slowly, Every 15 minutes, PRN Docusate Sodium Capsule, 100 mg= 1 capsule, By Mouth, 2 times a day, PRN Doxycycline Tablet, 100 mg, By Mouth, Every 12 hours Duoneb Inhalation Solution, 1 vials, BAND Nebulizer, 4 times a day Duoneb Inhalation Solution, 1 vials, BAND Nebulizer, Every 4 hours, PRN Eliquis, 5 mg, By Mouth, 2 times a day fluticasone 50 mcg/inh nasal spray, 50 mcg= 1 sprays, Nares, Both, 2 times a day gabapentin 300 mg oral capsule, 300 mg, By Mouth, 3 times a day Glucagon Inj, 1 mg, Intramuscular, Once, PRN Glucose Gel, 15 Gm, By Mouth, Every 20 minutes, PRN Glucose Gel, 30 Gm, By Mouth, Every 20 minutes, PRN Hypertonic Saline 3% Inhalation Lisa, 3 mL, Neb, 2 times a day Insulin Glargine Inj, 48 units= 0.48 mL, Subcutaneous Injection, Daily at bedtime Insulin LISPRO Sliding Scale, 2-10 units, Subcutaneous Injection, 3 times a day before meals Lasix 80 mg oral tablet, 80 mg, By Mouth, Daily Lidocaine 5% Patch, 1 each, Topically, Daily lisinopril 5 mg oral tablet, 5 mg, By Mouth, Daily Melatonin Tablet, 3 mg, By Mouth, Daily at bedtime, PRN Milk of Magnesia Liquid, 30 mL, By Mouth, Daily, PRN MiraLax Powder, 17 Gm= 1 pack/packet, By Mouth, Daily, PRN NaCL 0.9% Flush, 3 mL, IV Push, Every 8 hours NaCL 0.9% Flush, 3 mL, IV Push, Every 8 hours, PRN Nystatin Powder, 1 application, Topically, 2 times a day oxybutynin 5 mg/24 hours oral tablet, extended release, 5 mg, By Mouth, Daily at bedtime Pepcid 20 mg oral tablet, 20 mg, By Mouth, Daily predniSONE 20 mg oral tablet, 40 mg, By Mouth, Daily Remove Lidocaine Patch, 1 each, Topically, Daily at bedtime Robitussin DM Liquid, 10 mL, By Mouth, Every 4 hours, PRN Senna Tablet, 8.6 mg= 1 tablet, By Mouth, 2 times a day, PRN simethicone 80 mg oral tablet, chewable, 80 mg, Chew, 3 times a day, PRN Simethicone Tablet, 80 mg, Chew, 3 times a day, PRN simvastatin 20 mg oral tablet, 40 mg, By Mouth, Daily at bedtime Singulair 10 mg oral tablet, 10 mg, By Mouth, Daily at supper Toprol XL 50 mg oral tablet, extended release, 50 mg, By Mouth, Daily Tums 500 mg oral tablet, chewable, 1000 mg= 2 tablet, Chew, Every 4 hours, PRN Zofran Inj, 4 mg, IV Push, Every 6 hours, PRN Home acetaminophen 325 mg oral tablet, 650 mg= 2 tablet, By Mouth, Every 4 hours, PRN albuterol 0.083% inhalation solution, 2.5 mg= 3 mL, Neb, Every 6 hours, PRN, 2 refills albuterol 90 mcg/inh inhalation powder, 2 puffs, Inhalation, Every 6 hours, PRN albuterol-ipratropium 3 mg-0.5 mg/3 ml inhalation solution, 3 mL, Neb, 3 times a day albuterol-ipratropium 3 mg-0.5 mg/3 ml inhalation solution, 3 mL, Inhalation, 4 times a day, PRN aspirin 81 mg oral tablet, chewable, 81 mg= 1 tablet, By Mouth, Daily benzonatate 200 mg oral capsule, 200 mg, By Mouth, 3 times a day, PRN Breo Ellipta 200 mcg-25 mcg/inh inhalation powder, 1 puffs, Inhalation, Daily, 3 refills Dulcolax 10 mg rectal suppository, 10 mg= 1 supp, Rectally, Daily, PRN Eliquis 5 mg oral tablet, 5 mg= 1 tablet, By Mouth, 2 times a day Fleet Enema 19 gm-7 gm rectal enema, 1 each, Rectally, Once, PRN Flonase Allergy Relief 50 mcg/inh nasal spray, 50 mcg= 1 sprays, Nares, Both, 2 times a day gabapentin 300 mg oral capsule, 300 mg= 1 capsule, By Mouth, 3 times a day guaiFENesin 100 mg/5 mL oral liquid, 200 mg= 10 mL, By Mouth, 4 times a day, PRN Humalog Kwik Pen 100 units/mL subcutaneous injection, 3-11 units, Subcutaneous Injection, 3 times aday before meals Lantus Solostar Pen 100 units/mL subcutaneous solution, 54 units, Subcutaneous Injection, Daily at bedtime Lasix 80 mg oral tablet, 80 mg= 1 tablet, By Mouth, Daily lisinopril 5 mg oral tablet, 5 mg= 1 tablet, By Mouth, Daily metFORMIN 850 mg oral tablet, 850 mg= 1 tablet, By Mouth, Daily Milk of Magnesia 8% oral suspension, 2.4 Gm= 30 mL, By Mouth, Daily, PRN Narcan 4 mg/0.1 mL nasal spray, 4 mg= 1 sprays, Once, PRN Nystop 422452 u/gm powder, 1 applicator, Topically, 2 times a day oxybutynin 5 mg/24 hours oral tablet, extended release, 5 mg= 1 tablet, By Mouth, Daily at bedtime Oxygen, 2 L, Nares, Both, Daily Pepcid 20 mg oral tablet, 20 mg= 1 tablet, By Mouth, Daily predniSONE 20 mg oral tablet, See Instructions simvastatin 40 mg oral tablet, 40 mg= 1 tablet, By Mouth, Daily at bedtime Singulair 10 mg oral tablet, 10 mg= 1 tablet, By Mouth, Daily in PM, 1 refills Toprol XL 50 mg oral tablet, extended release, 50 mg= 1 tablet, By Mouth, Daily Trulicity Pen 0.75 mg/0.5 mL subcutaneous solution, 0.75 mg= 0.5 mL, Subcutaneous Injection, Every Tums 500 mg oral tablet, chewable, 1000 mg= 2 tablet, Chew, Every 4 hours, PRN Vitamin D2 50,000 intl units (1.25 mg) oral capsule, 27797 International_Units= 1 capsule, By Mouth, Every Allergies Silvadene??(skin alicea, unsure) Social History Alcohol Use: Never. Substance Abuse Use: Never. Tobacco Former smoker, Tobacco user in household: No. Immunizations Vaccine Date Status influenza virus vaccine, inactivated 07/31/2022 Given influenza virus vaccine, inactivated - Not Given Comments : Patient Refuses influenza virus vaccine, inactivated 04/09/2021 Recorded SARS-CoV-2 (COVID-19) Ad26 vaccine 10/12/2020 Recorded pneumococcal 23-valent vaccine 09/06/2019 Recorded influenza virus vaccine, inactivated 09/06/2019 Recorded influenza virus vaccine, inactivated 03/26/2018 Recorded pneumococcal 23-valent vaccine 01/23/2018 Recorded tetanus-diphtheria toxoids (Td) 10/16/2017 Recorded influenza virus vaccine, inactivated 05/17/2017 Recorded influenza virus vaccine, inactivated 04/20/2016 Recorded tetanus/diphtheria/pertussis, acel(Tdap) 11/12/2015 Recorded pneumococcal 13-valent vaccine 04/21/2015 Recorded influenza virus vaccine, inactivated 04/21/2015 Recorded influenza virus vaccine, inactivated 06/25/2010 Recorded pneumococcal 23-valent vaccine 05/25/2001 Recorded * Ry GONZALEZ Gladys Ahuja: PERFORM Event Display: Consultation Note Authored Date: Patient seen and discussed with Dr. Chapman and agree with his findings and recommendations. Willfollow. ?? Note * Shannan Iqbal RN: PERFORM Event Display: Discharge/Transfer Note Hospital Authored Date: [id number] Nursing Discharge Note Entered On: 02/22/2024 14:50 EDT Performed On: 02/22/2024 14:49 EDT by Shannan Iqbal RN Nursing Discharge Note 2 Discharge Time : 02/22/2024 14:00 EDT Discharge Level of Care at Discharge : [facility] Discharge Nursing Homes/Rehab Facilities : [facility] Patient Left Unit Via : Ambulance Patient Accompanied Off Unit with : Ambulance/[facility] Van Personnel Handover Given to Transport Personnel : Yes DC Instructions Provided & Signed by Pt : Unable Patient Understands D/C Instructions : Unable Patient Instructions Discharge Signed : No Did Pt have Specialty Bed or Wound Vac : Yes Shannan Iqbal RN - 02/22/2024 14:49 EDT * Jeanne GONZALEZ, Ina Peñalozat: PERFORM Event Display: Discharge/Transfer Note Hospital Authored Date: Patient: ??VIDHYA ADAM ? Age:??73 Years?Sex:??Female?:??1950?? Patient Information Discharge Location: S2 Primary Care Physician: Amy Willard MD Admit Date/Time: 02/17/24 03:21 Discharge Disposition Discharge Disposition: Group Home Facility/Rehab Discharge Diagnosis Shortness of breath (R06.02) COPD exacerbation (J44.1) COPD exacerbation (J44.1) Acute respiratory failure with hypoxia and hypercapnia (J96.01) Chronic hypoxic respiratory failure (J96.11) Pneumonia (J18.9) Paroxysmal atrial fibrillation (I48.0) Chronic diastolic congestive heart failure (I50.32) Obstructive sleep apnea on CPAP (G47.33) Insulin dependent type 2 diabetes mellitus (E11.9) Chronic indwelling Rai catheter (Z97.8) jail (current) use of insulin (Z79.4) _ Discharge Medications Acetaminophen (acetaminophen 325 mg oral tablet)?650?Milligram?2?tablet?By Mouth?Every 4 hours?as needed?as needed for fever/pain Albuterol (albuterol 90 mcg/inh inhalation powder)?2?puff(s)?Inhalation?Every 6 hours?as needed?Wheezing/Shortness of Breath?for 30?Days Albuterol/Ipratropium (albuterol-ipratropium 3 mg-0.5 mg/3 ml inhalation solution)?3?Milliliter?Inhalation?4 times a day?as needed?Wheezing/Shortness of Breath apixaban (Eliquis 5 mg oral tablet)?1?tab(s)?5?Milligram?By Mouth?2 times a day Aspirin (aspirin 81 mg oral tablet, chewable)?81?Milligram?1?tablet?By Mouth?Daily Benzonatate (benzonatate 200 mg oral capsule)?200?Milligram?By Mouth?3 times a day?as needed?Cough?for 5?Days Bisacodyl (Dulcolax 10 mg rectal suppository)?1?suppository(ies)?10?Milligram?Rectall y?Daily?as needed?as needed for constipation Calcium Carbonate (Tums 500 mg oral tablet, chewable)?1,000?Milligram?2?tablet?Chew?Every 4 hours?as needed?for indigestion dulaglutide (Trulicity Pen 0.75 mg/0.5 mL subcutaneous solution)?0.5?Milliliter?0.75?Milligram?Subcutaneous Injection?Every Ergocalciferol (Vitamin D2 50,000 intl units (1.25 mg) oral capsule)?1?capsule?50,000?International Unit?By Mouth?Every Famotidine (Pepcid 20 mg oral tablet)?1?tab(s)?20?Milligram?By Mouth?Daily Fluticasone Nasal (Flonase Allergy Relief 50 mcg/inh nasal spray)?1?spray(s)?50?Microgram?Nares, Both?2 times a day fluticasone-vilanterol (Breo Ellipta 200 mcg-25 mcg/inh inhalation powder)?1?puff(s)?Inhalation?Daily Furosemide (Lasix 80 mg oral tablet)?80?Milligram?1?tablet?By Mouth?Daily?for 30?Days Gabapentin (gabapentin 300 mg oral capsule)?300?Milligram?1?capsule?By Mouth?3 times a day Guaifenesin (guaiFENesin 100 mg/5 mL oral liquid)?10?Milliliter?200?Milligram?By Mouth?4 times a day?as needed?for cough Insulin Glargine (Lantus Solostar Pen 100 units/mL subcutaneous solution)?54?unit(s)?Subcutaneous Injection?Daily at bedtime Insulin Lispro (Humalog Kwik Pen 100 units/mL subcutaneous injection)?3-11 units?SubcutaneousInjection?3 times a day before meals?As directed per sliding [id number] [id number] -301= 9 [id number]= 11 units Lisinopril (lisinopril 5 mg oral tablet)?5?Milligram?1?tablet?By Mouth?Daily Metformin (metFORMIN 850 mg oral tablet)?1?tab(s)?850?Milligram?By Mouth?Daily Metoprolol (Toprol XL 50 mg oral tablet, extended release)?50?Milligram?1?tablet?By Mouth?Daily Milk of Magnesia (Milk of Magnesia 8% oral suspension)?30?Milliliter?2.4?gram?By Mouth?Daily?as needed?for constipation Montelukast (Singulair 10 mg oral tablet)?10?Milligram?1?tablet?By Mouth?Daily inPM nalOXONE (Narcan 4 mg/0.1 mL nasal spray)?1?spray(s)?4?Milligram?Once?as needed?as needed Nystatin Topical (Nystop 045972 u/gm powder)?1?applicator?Topically?2 times a day Ocular Lubricant (Artificial Tears preserved solution)?2?Drops?Eyes, Both?2 times a day?as needed?for dry eyes Oxybutynin (oxybutynin 5 mg/24 hours oral tablet, extended release)?1?tab(s)?5?Milligram?By Mouth?Daily at bedtime Oxygen?2?Liter?Nares, Both?Daily PredniSONE (predniSONE 10 mg oral tablet)?See Instructions?Prednisone 30mg daily x 3 days ( 02/21-02/23) follow by 20mg daily x 3 days ( 02/24-02/26) follow by 10mg daily x 3 days ( 02/27-03/01) Simvastatin (simvastatin 40 mg oral tablet)?40?Milligram?1?tablet?By Mouth?Daily at bedtime Sodium Biphosphate-Sodium Phosphate (Fleet Enema 19 gm-7 gm rectal enema)?1?Each?Rectally?Once?as needed?for constipation ? Inpatient Medications Medications (43) Active SCHEDULED: (25) Albuterol/Ipratropium Inhalation Lisa 3mL (Duoneb Inhalation Solution) ??1 vials, BAND Nebulizer, 4 times a day Apixaban 5 mg Tablet (Eliquis) ??5 mg, By Mouth, 2 times a day Aspirin 81 mg Chew Tablet (aspirin 81 mg oral tablet, chewable) ??81 mg, By Mouth, Daily Breo Ellipta 200 mcg / 25 mcg Inhaler (Breo Ellipta 200 mcg-25 mcg Inhaler) ??1 puffs, Inhalation, Daily Budesonide 0.25 mg/2 mL Inhalation Susp (budesonide 0.25 mg/2 mL inhalation suspension) ??0.25 mg 2mL, BAND Nebulizer, 2 times a day Doxycycline 100 mg Tablet (Doxycycline Tablet) ??100 mg, By Mouth, Every 12 hours Famotidine 20 mg Tablet (Pepcid 20 mg oral tablet) ??20 mg, By Mouth, Daily Fluticasone Propionate 50mcg/inh Nasal [place] (fluticasone 50 mcg/inh nasal spray) ??50 mcg 1 sprays, Nares, Both, 2 times a day Furosemide 80 mg Tablet (Lasix 80 mg oral tablet) ??80 mg, By Mouth, Daily Gabapentin 300 mg Capsule (gabapentin 300 mg oral capsule) ??300 mg, By Mouth, 3 times a day Insulin Glargine 100 units/mL Inj (Insulin Glargine Inj) ??54 units 0.54 mL, Subcutaneous Injection, Daily at bedtime Insulin Lispro 100 units/mL Inj (Insulin LISPRO Sliding Scale) ??2-10 units, Subcutaneous Injection, 3 times a day before meals Lidocaine 5% Topical Patch (Lidocaine 5% Patch) ??1 each, Topically, Daily Lisinopril 5 mg Tablet (lisinopril 5 mg oral tablet) ??5 mg, By Mouth, Daily Metoprolol 50 mg XL Tablet (Toprol XL 50 mg oral tablet, extended release) ??50 mg, By Mouth, Daily Montelukast 10 mg Tablet (Singulair 10 mg oral tablet) ??10 mg, By Mouth, Daily at supper NaCl 0.9% Flush 3ml (NaCL 0.9% Flush) ??3 mL, IV Push, Every 8 hours Nystatin Powder ??1 application, Topically, 2 times a day Oxybutynin 5 mg ER Tablet (oxybutynin 5 mg/24 hours oral tablet, extended release) ??5 mg, By Mouth, Daily at bedtime Polyethylene Glycol 17 Gm Powder (MiraLax Powder) ??17 Gm 1 pack/packet, By Mouth, Daily PredniSONE 5 mg Tablet (predniSONE 20 mg oral tablet) ??30 mg, By Mouth, Once Remove Patch (Remove Lidocaine Patch) ??1 each, Topically, Daily at bedtime Senna Tablet ??8.6 mg 1 tablet, By Mouth, 2 times a day Simvastatin 20 mg Tablet (simvastatin 20 mg oral tablet) ??40 mg, By Mouth, Daily at bedtime Sodium Chloride 3% Inhalation Lisa (Hypertonic Saline 3% Inhalation Lisa) ??3 mL, Neb, 2 times a day CONTINUOUS: (0) PRN: (18) Acetaminophen 325 mg Tablet (Acetaminophen Tablet) ??650 mg, By Mouth, Every 4 hours Albuterol/Ipratropium Inhalation Lisa 3mL (Duoneb Inhalation Solution) ??1 vials, BAND Nebulizer, Every 4 hours Benzonatate 100 mg Capsule (benzonatate 100 mg oral capsule) ??200 mg, By Mouth, 3 times a day Bisacodyl 10 mg Suppository (Bisacodyl Supp) ??10 mg 1 supp, Rectally, Daily Calcium Carbonate 500 mg (Calcium 200 mg) Chewable Tablet (Tums 500 mg oral tablet, chewable) ??1,000 mg 2 tablet, Chew, Every 4 hours Dextromethorphan-Guaifenesin 20 mg-200 mg/10 mL Liqu UD (Robitussin DM Liquid) ??10 mL, By Mouth, Every 4 hours Dextrose Inj Syringe (Dextrose 50% Inj Syringe (25Gm)) ??12.5 Gm, IV Push Slowly, Every 20 minutes Dextrose Inj Syringe (Dextrose 50% Inj Syringe (25Gm)) ??25 Gm, IV Push Slowly, Every 15 minutes Glucagon 1 mg Inj (Glucagon Inj) ??1 mg, Intramuscular, Once Glucose 40% Gel (15 Gm) (Glucose Gel) ??15 Gm, By Mouth, Every 20 minutes Glucose 40% Gel (15 Gm) (Glucose Gel) ??30 Gm, By Mouth, Every 20 minutes Magnesium Hydroxide 8% Susp UD (Milk of Magnesia Liquid) ??30 mL, By Mouth, Daily Melatonin 3 mg Tablet (Melatonin Tablet) ??3 mg, By Mouth, Daily at bedtime NaCl 0.9% Flush 3ml (NaCL 0.9% Flush) ??3 mL, IV Push, Every 8 hours Ondansetron 2mg/mL Inj (2mL Vial) (Zofran Inj) ??4 mg, IV Push, Every 6 hours Polyvinyl Alcohol 1.4% Opthalmic Solution/Artificial Tears (Artificial Tears1.4%) ??2 drops, Eye, Right, Every 4 hours Simethicone 80 mg Chewable Tablet (Simethicone Tablet) ??80 mg, Chew, 3 times a day Simethicone 80 mg Chewable Tablet (simethicone 80 mg oral tablet, chewable) ??80 mg, Chew, 3 times a day ? Medications Started Prednisone Allergies Allergies ?(Active and Proposed Allergies Only) Silvadene? (Severity: Unknown severity, Onset: Unknown) ?Reactions: unsure, skin alicea ? PCP Follow-Up/Heads-Up Please follow up in one to two weeks post hospital discharge. Hospital Course see below. Objective Assessment and Plan ?? Patient is a 73-year-old female, history of COPD, on 2 L nasal , History of morbid obesity with obstructive sleep apnea/OHS on CPAP at night??noncompliant, insulin-dependent diabetes mellitus, diabetic neuropathy, hypertension, dyslipidemia, neurogenic bladder with chronic indwelling Rai catheter, nonambulatory at baseline, GABRIEL dependent, recent hospitalization and discharged on February 13, 2024 after treatment of pneumonia of left lower lobe, COPD with exacerbation.?? Was discharged to [facility].?? Came back from SNF for shortness of breath, found to be tachypneic in the 40s and requiring NIV support. 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 Educational Guidance Counselor on importanceof NIV compliance again before discharge. She is also being managed for COPD exacerbation, completed 5 days of doxycycline, started on prednisone and respiratory status has improved , stable. Recommend to continue prednisone tapering regimen along with inhalers at rehab. Hospital course prolonged by acute hyponatremia which has improved with fluid restriction. Na on discharge is 130 and recommend to continue fluid restriction 1L/day at rehab. Repeat BMP in??one week.? Acute respiratory failure with hypoxia and hypercapnia (J96.01) Chronic hypoxic respiratory failure:??Baseline home O2 2 to 3 L ? Grouped with COPD exacerbation (J44.1), Shortness of breath (R06.02), Pneumonia (J18.9), Chronic hypoxic respiratory failure (J96.11), Obstructive sleep apnea on CPAP (G47.33) Hypomagnesemia ? Initially was placed on CPAP and was weaned off on , supplemental oxygen 3 L which is herbaseline recommend Pulmonary on board and main stay of treatment for tracheobronchomalacia is with NIV. Educational Guidance Counselor on importance of NIV compliance again before discharge. For COPD exacerbation :?? Continue DuoNeb neb at rehab.?? Completed 5 days of doxycycline here in the hospital.?? Continue Breo Ellipta inhaler. Continue montelukast Completed 5 days prednisone 40mg daily and given by scattered wheezing on the days of discharge with stable O2 requirement, recommend to continue prednisone tapering on discharge. Continue nasal spray. Appreciate pulmonary apparent evaluation Closely monitor respiratory status Target oxygen 88 to 92% Reinforced NIV use for??ERICKA/OHS, CT finding of tracheobronchomalacia ?? Hyponatremia : improved. Likely??due to steroid use Fluid restriction 1 L and repeat Na today is 130. Recommend to continue fluid restrictions 1L/day??in rehab with repeat BMP in one week. ? Paroxysmal atrial fibrillation (I48.0): HR well controlled Continue metoprolol?? and apixaban ?? Chronic diastolic congestive heart failure (I50.32): Continue Lasix and lisinopril cautiously with holding parameters. Monitor respiratory status closely. ?? Insulin dependent type 2 diabetes mellitus (E11.9): Noted to have component of steroid-induced hyperglycemia.?? Continue Lantus and ISS Trulicity is nonformulary here. Resume it in rehab. Continue gabapentin as prescribed. ?? Chronic indwelling Rai catheter (Z97.8):??Rai was changed on 02/20 night. 26Fr. ?? I have evaluated patient today. Denied any active complaints. O2 stable at baseline 2L/min. Mild scattered rhonchi noted on examination, clinically no acute??respiratory distress noted. Recommend to continue prednisone tapering at rehab along with her home inhalers.?? Hyponatremia has improved with Na 130 today, Recommend to continue fluid restrictions 1L/day??in rehab with repeat BMP in one week. She is medically stable for rehab discharge. Discharge plan discussed with patient and??she agreed with the plan. ? Measurements?? Height: 168 cm (02/22/24) Weight: 120 kg (02/17/24) Dry Weight: 120 kg (02/17/24) Body Mass Index:??42.52 kg/m2??Critical (02/17/24) ? Vital Signs?? Temperature: 98.2 DegF (02/22/24 06:00:00) Temperature Route: Oral (02/22/24 06:00:00) Pulse Rate: 80 bpm (02/22/24 08:02:00) Respiratory Rate: 20 br/min (02/22/24 08:01:00) Systolic Blood Pressure: 130 mm Hg (02/22/24 08:01:00) Diastolic Blood Pressure: 65 mm Hg (02/22/24 08:01:00) Blood pressure sites: Arm, left (08/15/24 06:00:00) Mean Arterial Pressure: 93 mm Hg (02/21/24 15:36:00) Pulse Pressure: 66 mm Hg (02/22/24 06:00:00) Oxygen Saturation: 95 % (02/22/24 06:00:00) Liters per Minute: 2 L/min (02/22/24 06:00:00) Mode of Delivery (Oxygen): Nasal cannula (02/22/24 06:00:00) Early Warning Score: 2 (02/22/24 08:43:44) ? . Physical Exam General : Awake alert, no acute distress, 2 L NC HEENT : Left eye blind with artificial eye Respiratory : Bilateral??air entry with mild expiratory wheezing?? CVS : S1-S2, no MRG abdomen soft,??NTND, bowel sound present AOx3, no??gross facial asymmetry or gross focal deficit, able to move all 4 extremities spontaneously Consultants Pulmonary Pending Results Add On Lab Order ordered on 02/17/2024 Add On Lab Order ordered on 02/17/2024 Legionella Antigen Urine ordered on 02/17/2024 Strep Pneumoniae Urinary Ag ordered on 02/17/2024 Home Health Face to Face ^HomeHealthFTF Results Discharge Labs BACTERIOLOGY Blood Culture Results Preliminary report ()?? 02/17/2024 00:50 Blood Culture Specimen Source BLOOD ()?? 02/17/2024 00:50 Blood Culture Isolate 1 Comment ()?? 02/17/2024 00:50 Blood Cult 2 Results Preliminary report ()?? 02/17/2024 00:50 Blood Culture 2 Specimen Source BLOOD ()?? 02/17/2024 00:50 Blood Culture 2 Isolate 1 Comment ()?? 02/17/2024 00:50 ?? BLOOD COUNT & DIFF WBC 7.8 k/mm3 ()?? 02/21/2024 08:36 RBC 5.25 m/mm3 ()?? 02/21/2024 08:36 Hgb 13.2 Gm/dL ()?? 02/21/2024 08:36 Hct 42.4 % ()?? 02/21/2024 08:36 MCV 80.8 femtoliters ()?? 02/21/2024 08:36 MCH 25.1 pg (Low)?? 02/21/2024 08:36 MCHC 31.1 g/dL (Low)?? 02/21/2024 08:36 Platelet Count 171 k/mm3 ()?? 02/21/2024 08:36 RDW-SD 56.5 femtoliters (High)?? 02/21/2024 08:36 MPV 10.6 femtoliters ()?? 02/21/2024 08:36 Nucleated RBC (Automated) 0.0 #/100 WBC'S ()?? 02/21/2024 08:36 Abs. NRBC 0.0 k/mm3 ()?? 02/21/2024 08:36 Abs. Neut 7.1 k/mm3 (High)?? 02/18/2024 00:46 Abs. Lymph 1.1 k/mm3 ()?? 02/18/2024 00:46 Abs. [place] 0.9 k/mm3 ()?? 02/18/2024 00:46 Abs. Eo 0.0 k/mm3 ()?? 02/18/2024 00:46 Abs. Baso 0.0 k/mm3 ()?? 02/18/2024 00:46 Neut % 77.9 % (High)?? 02/18/2024 00:46 Lymph % 11.7 % (Low)?? 02/18/2024 00:46 [place] % 9.8 % ()?? 02/18/2024 00:46 Eos % 0.1 % ()?? 02/18/2024 00:46 Baso % 0.1 % ()?? 02/18/2024 00:46 Imm Gran 0.4 % ()?? 02/18/2024 00:46 Abs. Imm Gran 0.0 k/mm3 ()?? 02/18/2024 00:46 ?? BLOOD GAS pH 7.42 ()?? 02/17/2024 10:25 pCO2 59 mm Hg (High)?? 02/17/2024 10:25 pO2 87 mm Hg ()?? 02/17/2024 10:25 Bicarbonate, Estimated 37 mmol/L (High)?? 02/17/2024 10:25 Specimen Type - Blood Gas ARTERIAL ()?? 02/17/2024 10:25 pH, Venous 7.42 ()?? 02/17/2024 00:50 Percent O2 (FIO2) 32 ()?? 02/17/2024 10:25 ? CARDIAC Nt-Probnp 268 pg/mL (High)?? 02/17/2024 00:50 High Sensitivity Troponin (HSTnT) 19 ng/L (High)?? 02/17/2024 02:50 ?? CHEM GENERAL Sodium 130 mmol/L (Low)?? 02/22/2024 05:29 Potassium 3.9 mmol/L ()?? 02/22/2024 05:29 Chloride 82 mmol/L (Low)?? 02/22/2024 05:29 Bicarbonate Level 38 mmol/L (High)?? 02/22/2024 05:29 Anion Gap 10 ()?? 02/22/2024 05:29 Glucose Level 323 mg/dL (High)?? 02/20/2024 00:42 Glucose, POC 245 mg/dL (High)?? 02/22/2024 08:29 BUN 15 mg/dL ()?? 02/21/2024 08:36 Creatinine-Blood 0.50 mg/dL ()?? 02/21/2024 08:36 Estimated GFR Creatinine 100 ML/MIN/1.73 M2 ()?? 02/21/2024 08:36 Calcium 8.5 mg/dL (Low)?? 02/17/2024 07:37 Phosphorus 3.1 mg/dL ()?? 02/20/2024 00:42 Magnesium 1.8 mg/dL ()?? 02/21/2024 08:36 Lactate 1.7 mmol/L ()?? 02/17/2024 00:50 ?? ENDOCRINE/TUMOR MARKER TSH 0.06 uIU/mL (Low)?? 02/17/2024 07:37 Free T4 1.66 ng/dL ()?? 02/17/2024 07:37 ?? HEME OTHER Hold Lavender Top SPECIMEN DISCARDED AFTER 24 HOURS. ()?? 02/20/2024 00:42 Hold Blue Top SPECIMEN DISCARDED AFTER 4 HOURS. ()?? 02/17/2024 00:50 ?? MISC. CHEMISTRY Procalcitonin 0.03 ng/mL ()?? 02/17/2024 00:50 ? URINE OTHER Est Creatinine Clearance 95.73 mL/min ()?? 02/21/2024 09:28 ? VIROLOGY COVID-19 by RT-PCR NEGATIVE ()?? 02/17/2024 00:46 ? I spent a total of??40 minutes reviewing the chart / medical records, evaluating the patient, evaluating and interpreting laboratory and imaging data, discussing the??management ??plan with patient,??RN, CM ??, and documenting the encounter.? _40 ??minutes spent on discharge * Gonzalo Jenkins RN: VERIFY, PERFORM, SIGN Event Display: Case Management Discharge Plan Authored Date: Patient: VIDHYA ADAM Age: 73 years Sex: Female : 1950 Associated Diagnoses: None Author: Gonzalo Jenkins RN Discharge Plan Case Management Discharge Plan : Case Management Discharge Plan Data 02/22/2024 12:09 EDT Discharge Level of Care at Discharge penitentiary facility Discharge Nursing Homes/Rehab Facilities [facility] Discharge Transportation Arranged [facility] [address] [place] [address] Discharge Arranged Transport Date/Time 02/22/2024 13:30 Mode of Transportation Arranged Ambulance Name of Agency #1 [facility] Service Categories #1 Occupational Therapy, Physical Therapy, Group Home Service Comments #1 Ambulance arranged for 130pm * Shannan Iqbal RN: PERFORM Event Display: Patient Education/Instruction Authored Date: Inpatient Adult Discharge Instructions. [address] [address] Name: VIDHYA ADAM : 1950?? Visit: 02/17/2024 03:21?? Current Date: 02/22/2024 13:02 ?? Account: [id number]?? Inpatient Adult Discharge Instructions We would like [...] and their families. Surveys are administered by [employer] ?? If further treatment with your primary care physician or another doctor is recommended, it is important for you to keep the appointment. Call your primary care physician or return to the Emergency Department immediately if your condition worsens, fails to improve, or new symptoms develop. If you need to find a doctor, you can call [facility] Mobile Game Day for a referral at [phone] or toll free at [phone]) or log in to [email or web address].. ?? [facility], in keeping with [facility] guidance, no longer requires face masks [...] a health care shaneka of your choosing. [employer] is a website that allows you to securely view your medical information including your hospital discharge summary, office visit summaries, medications and follow-up visits. You can also request appointments, renew medications, and request access to your medical information using a health care shaneka of your choosing, or just ask a question. You can enroll at [email or web address] or register during your next office visit. You have been discharged from [facility], Patient Care Unit: S2??. If you have any questions regarding these instructions, including results of studies pending, afteryou leave, please call us and we will be happy to assist you 30/01. [facility] Your Care Team Attending Physician Ina Angel MD?? Consulting Providers Ina Angel MD?? Discharging Providers Ina Angel MD Reason for Your Visit pt presenting from SNF for SOB, pt found to be tachypneic in the 40's put on CPAP for respiratory support. LS ronchorus bilaterally. see level 1 sheet?? Your Diagnosis Shortness of breath COPD exacerbation Acute respiratory failure with hypoxia and hypercapnia Chronic hypoxic respiratory failure Paroxysmal atrial fibrillation Chronic diastolic congestive heart failure Obstructive sleep apnea on CPAP Insulin dependent type 2 diabetes mellitus Chronic indwelling Rai catheter jail (current) use of insulin Tests Performed Below is a partial list of the tests performed during your hospitalization. You may have had other tests and procedures not included in this list. Please discuss all test results with your provider. ABG Basic Metabolic Panel Blood Culture Blood Culture #2 Blood Culture 2 Results Blood Culture Result BUN CBC CBC w/ Differential COVID-19 (Novel Coronavirus), Rapid PCR Creatinine Electrolytes FREE T4 Glucose Level GLUCOSE POC High??Sensitivity??Troponin T Hold Blue Top Tube HOLD LAVENDER TUBE Lactic Acid Level Lytes Magnesium Level pH Venous Phosphorus Level ProBNP PROCALCITONIN, SERUM TSH WITH REFLEX TO FT4 CT Soft Tissue Neck W/O Contrast XR Chest Portable Add On Lab Order?? B Type Natriuretic Peptide (ProBNP)?? BUN?? Basic Metabolic Panel?? Blood Culture?? Blood Culture #2?? Blood Culture 2 Results?? Blood Culture Result?? Blood Gas Arterial (ABG)?? CBC?? CBC w/ Differential?? COVID-19 (Novel Coronavirus), Rapid PCR?? CT Soft Tissue Neck W/O Contrast?? Creatinine?? Electrolytes (Lytes)?? Free T4?? Glucose Level?? Glucose POC?? High??Sensitivity??Troponin T?? Hold Blue Top Tube?? Hold Lavender Top Tube (HOLD LAVENDER TUBE)?? Lactic Acid Level?? Legionella Antigen Urine (Urine Legionella Antigen)?? Magnesium Level?? Phosphorus Level?? Procalcitonin Level (PROCALCITONIN, SERUM)?? Strep Pneumoniae Urinary Ag?? TSH with T4 Reflex (Adults Only) (TSH WITH REFLEX TO FT4)?? Chest Portable (XR Chest Portable)?? pH Venous?? Primary Care Provider Amy Willard MD? Advance Directive Health Care Proxy on File Yes - Health Care Proxy Yes - MOLST Discharge Vitals Temperature: 98.5 DegF Height: 168 cm Pulse Rate: 80 bpm Weight: 120 kg Respiratory Rate: 20 br/min Body Mass Index:??42.52 kg/m2??Critical Systolic Blood Pressure: 97 mm Hg Body surface area: 2.37 Diastolic Blood Pressure:??41 mm Hg??Low ?? Oxygen Saturation: 98 % ?? Studies Pending All studies ordered during this hospital stay have been completed unless listed below. Please discuss all pending results with your provider listed above in these instructions. ?? Add On Lab Order?? Legionella Antigen Urine (Urine Legionella Antigen)?? Strep Pneumoniae Urinary Ag?? What to do next Instructions From Your Doctor ?? Orders? 02/22/24 11:52:00 EDT?? Prescriptions??, ??as written in DC summary., ??02/22/24 11:52:00 EDT?? Discharge Medications VIDHYA ADAM :1950 Visit Date:02/17/2024 Medications: Please continue your medications until treatment is completed or stopped by your provider. Medications not listed below should be discontinued. Discuss any questions related to medications with your provider. What How Much When Instructions Next Dose New Ocular Lubricant (Artificial Tears preserved solution) 2 Drops Both eyes Twice a day as needed for for dry eyes 02/21 Changed Albuterol (albuterol 90 mcg/ inh inhalation powder) 2 puff(s) Inhalation Every 6 hours as needed for Wheezing/Shortness of Breath Duration: 30 Days Pickup at [facility]/pharmacy #[id number] 02/21 Changed Albuterol/ Ipratropium (albuterol-ipratropium 3 mg-0.5 mg/ 3 ml inhalation solution) 3 Milliliter Inhalation 4 times a day as needed for Wheezing/Shortness of Breath 02/21 Changed PredniSONE (predniSONE 10 mg oral tablet) See instructions Prednisone 30mg daily x 3 days ( -) follow by 20mg daily x 3 days ( -) follow by 10mg daily x 3 days ( -) ?? 02/22 Unchanged Acetaminophen (acetaminophen 325 mg oral tablet) 2 tab(s) Oral Every 4 hours as needed for as needed for fever/pain Unchanged apixaban (Eliquis 5 mg oral tablet) 1 tab(s) Oral Twice a day 02/22 Unchanged Aspirin (aspirin 81 mg oral tablet, chewable) 1 tab(s) Oral Daily 02/22 Unchanged Benzonatate (benzonatate 200 mg oral capsule) 200 Milligram Oral 3 times a day as needed for Cough Duration: 5 Days 02/21 Unchanged Bisacodyl (Dulcolax 10 mg rectal suppository) 1 suppository(ies) Per rectum Daily as needed for as needed for constipation 02/22 prn Unchanged Calcium Carbonate (Tums 500 mg oral tablet, chewable) 2 tab(s) Chew Every 4 hours as needed for for indigestion as needed Unchanged dulaglutide (Trulicity Pen 0.75 mg/ 0.5 mL subcutaneous solution) 0.5 Milliliter Subcutaneous Injection Every 02/21 Unchanged Ergocalciferol (Vitamin D2 50,000 intl units (1.25 mg) oral capsule) 1 capsule Oral Every 02/22 Unchanged Famotidine (Pepcid 20 mg oral tablet) 1 tab(s) Oral Daily 02/22 Unchanged Fluticasone Nasal (Flonase Allergy Relief 50 mcg/ inh nasal spray) 1 spray(s) Nares, Both Twice a day 02/21 Unchanged fluticasone-vilanterol (Breo Ellipta 200 mcg-25 mcg/ inh inhalation powder) 1 puff(s) Inhalation Daily 02/22 Unchanged Furosemide (Lasix 80 mg oral tablet) 1 tab(s) Oral Daily Duration: 30 Days 02/22 Unchanged Gabapentin (gabapentin 300 mg oral capsule) 1 capsule Oral 3 times a day 02/21 Unchanged Guaifenesin (guaiFENesin 100 mg/ 5 mL oral liquid) 10 Milliliter Oral 4 times a day as needed for for cough PRN Unchanged Insulin Glargine (Lantus Solostar Pen 100 units/ mL subcutaneous solution) 54 unit(s) Subcutaneous Injection Daily at Bedtime 02/21 Unchanged Insulin Lispro (Humalog Kwik Pen 100 units/ mL subcutaneous injection) 3-11 units Subcutaneous Injection 3 times a day before meals As directed per sliding scale 150-199=3 units 200-249=5 units 250-299=7 units 300-349= 9 units 350-400= 11 units ?? Unchanged Lisinopril (lisinopril 5 mg oral tablet) 1 tab(s) Oral Daily 02/22 Unchanged Metformin (metFORMIN 850 mg oral tablet) 1 tab(s) Oral Daily 02/22 Unchanged Metoprolol (Toprol XL 50 mg oral tablet, extended release) 1 tab(s) Oral Daily 02/22 Unchanged Milk of Magnesia (Milk of Magnesia 8% oral suspension) 30 Milliliter Oral Daily as needed for for constipation prn Unchanged Montelukast (Singulair 10 mg oral tablet) 1 tab(s) Oral Daily in PM 02/21 Unchanged nalOXONE (Narcan 4 mg/ 0.1 mL nasal spray) 1 spray(s) Once as needed for as needed Unchanged Nystatin Topical (Nystop 845188 u/ gm powder) 1 applicator Topically Twice a day 02/21 Unchanged Oxybutynin (oxybutynin 5 mg/ 24 hours oral tablet, extended release) 1 tab(s) Oral Daily at Bedtime 02/21 Unchanged Oxygen 2 Liter Nares, Both Daily Unchanged Simvastatin (simvastatin 40 mg oral tablet) 1 tab(s) Oral Daily at Bedtime 02/21 Unchanged Sodium Biphosphate-Sodium Phosphate (Fleet Enema 19 gm-7 gm rectal enema) 1 Each Per rectum Once as needed for for constipation Pharmacy Information [facility]/pharmacy #[id number]: [address], [place] [id number] [phone] Prescription Given During Visit Albuterol (albuterol 90 mcg/inh inhalation powder) - 2 puffs, Inhalation, Every 6 hours, # 1 each, 0 Refills, [facility]/pharmacy #[id number], [address] [place] [phone]?? Ocular Lubricant (Artificial Tears preserved solution) - 2 drops, Eyes, Both, 2 times a day, # 15 mL, 0 Refills?? PredniSONE (predniSONE 10 mg oral tablet) - , # 18 tablet, 0 Refills, Prednisone 30mg daily x 3 days ( 02/21-02/23) follow by 20mg daily x 3 days ( 02/24-02/26) follow by 10mg daily x 3 days ( 02/27-03/01)?? Laboratory Results Below is a partial list of the most recent Laboratory test results done prior to this discharge. You may have had other tests and procedures not included in this list. Please discuss all test resultswith your provider. Est Creatinine Clearance - 95.73 mL/min (02/21/2024) ABG (02/17/2024) ???pH - 7.42???pCO2 - 59 mm Hg???pO2 - 87 mm Hg???Bicarbonate, Estimated - 37 mmol/L???Specimen Type - Blood Gas - ARTERIAL???Percent O2 (FIO2) - 32 Basic Metabolic Panel (02/17/2024) ???Sodium - 133 mmol/L???Potassium - 4.2 mmol/L???Chloride - 89 mmol/L???Bicarbonate Level - 32 mmol/L???Anion Gap - 12???Glucose Level - 360 mg/dL???BUN - 13 mg/dL???Creatinine-Blood - 0.37 mg/dL???Estimated GFR Creatinine - 107 ML/MIN/1.73 M2???Calcium - 8.5 mg/dL Blood Culture (02/17/2024) ???Blood Culture Results - Preliminary report???Blood Culture Specimen Source - BLOOD Blood Culture #2 (02/17/2024) ???Blood Cult 2 Results - Preliminary report???Blood Culture 2 Specimen Source - BLOOD Blood Culture 2 Results (02/17/2024) ???Blood Culture 2 Isolate 1 - Comment Blood Culture Result (02/17/2024) ???Blood Culture Isolate 1 - Comment BUN (02/21/2024) ???BUN - 15 mg/dL CBC (02/21/2024) ???WBC - 7.8 k/mm3???RBC - 5.25 m/mm3???Hgb - 13.2 Gm/dL???Hct - 42.4 %???MCV - 80.8 femtoliters???MCH - 25.1 pg???MCHC - 31.1 g/dL???Platelet Count - 171 k/mm3???RDW-SD - 56.5 femtoliters???MPV - 10.6 femtoliters???Nucleated RBC (Automated) - 0.0 #/100 WBC'S???Abs. NRBC - 0.0 k/mm3 CBC w/ Differential (02/18/2024) ???WBC - 9.1 k/mm3???RBC - 5.08 m/mm3???Hgb - 12.7 Gm/dL???Hct - 39.4 %???MCV - 77.6 femtoliters???MCH - 25.0 pg???MCHC - 32.2 g/dL???Platelet Count - 188 k/mm3???RDW-SD - 53.1 femtoliters???MPV - 10.8 femtoliters???Nucleated RBC (Automated) - 0.0 #/100 WBC'S???Abs. NRBC - 0.0 k/mm3???Abs. Neut - 7.1 k/mm3???Abs. Lymph - 1.1 k/mm3???Abs. [place] - 0.9 k/mm3???Abs. Eo - 0.0 k/mm3???Abs. Baso - 0.0 k/mm3???Neut % - 77.9 %???Lymph % - 11.7 %???[place] % - 9.8 %???Eos % - 0.1 %???Baso % - 0.1 %???Imm Gran - 0.4 %???Abs. Imm Gran - 0.0 k/mm3 COVID-19 (Novel Coronavirus), Rapid PCR (02/17/2024) ???COVID-19 by RT-PCR - NEGATIVE Creatinine (02/21/2024) ???Creatinine-Blood - 0.50 mg/dL???Estimated GFR Creatinine - 100 ML/MIN/1.73 M2 Electrolytes (02/21/2024) ???Sodium - 128 mmol/L???Potassium - 3.7 mmol/L???Chloride - 83 mmol/L???Bicarbonate Level - 38 mmol/L???Anion Gap - 7 FREE T4 (02/17/2024) ???Free T4 - 1.66 ng/dL Glucose Level (02/20/2024) ???Glucose Level - 323 mg/dL GLUCOSE POC (02/22/2024) ???Glucose, POC - 156 mg/dL High??Sensitivity??Troponin T (02/17/2024) ???High Sensitivity Troponin (HSTnT) - 19 ng/L Hold Blue Top Tube (02/17/2024) ???Hold Blue Top - SPECIMEN DISCARDED AFTER 4 HOURS. HOLD LAVENDER TUBE (02/20/2024) ???Hold Lavender Top - SPECIMEN DISCARDED AFTER 24 HOURS. Lactic Acid Level (02/17/2024) ???Lactate - 1.7 mmol/L Lytes (02/22/2024) ???Sodium - 130 mmol/L???Potassium - 3.9 mmol/L???Chloride - 82 mmol/L???Bicarbonate Level - 38 mmol/L???Anion Gap - 10 Magnesium Level (02/21/2024) ???Magnesium - 1.8 mg/dL pH Venous (02/17/2024) ???pH, Venous - 7.42 Phosphorus Level (02/20/2024) ???Phosphorus - 3.1 mg/dL ProBNP (02/17/2024) ???Nt-Probnp - 268 pg/mL PROCALCITONIN, SERUM (02/17/2024) ???Procalcitonin - 0.03 ng/mL TSH WITH REFLEX TO FT4 (02/17/2024) ???TSH - 0.06 uIU/mL You will be contacted within 72 hours with your results. Allergies (NKA means No Known Allergies) Silvadene??(skin alicea, unsure) Problems Active Problems??(17) Cataract?? Chronic diastolic congestive heart failure?? Chronic indwelling Rai catheter?? Chronic obstructive lung disease?? COVID-19?? Hyperlipidemia?? Hypertensive disorder?? Insulin dependent type 2 diabetes mellitus?? Morbid obesity?? Neurogenic bladder?? Neurologic disorder associated with type II diabetes mellitus?? Obstructive sleep apnea on CPAP?? Paraparesis of both lower limbs?? Paroxysmal atrial fibrillation?? Postmenopausal bleeding?? Severe obesity?? Wheelchair dependent?? Education Materials Below is the list of Educational Leaflet Providered with your Discharge Instructions. Valuables and Belongings I fully understand and agree that [facility] accepts no responsibility for all [...] home. ?? No Valuables/Belongings: No valuables/belongings present Date for Pt to Sign Valuables/Belongings: 02/17/24 01:00:00 ?? Other Discharge Information ? Case Management Discharge Plan?? Discharge Plan?? Discharge Agency Information?? Discharge Level of Care at Discharge: penitentiary facility Name of Agency #1: [facility] Discharge Transportation Arranged: [facility] [address] [place] [address] ??[phone] Service Categories #1: Occupational Therapy, Physical Therapy, Group Home Mode of Transportation Arranged: Ambulance Service Comments #1: Ambulance arranged for 130pm Discharge Arranged Transport Date/Time: 02/22/24 13:30:00 ?? Discharge Nursing Homes/Rehab Facilities: [facility] ? Pulmonary Rehab Status?? Pulmonary Rehab Discharge Status?? CPAP/BiPAP Mask Type: Full CPAP/BiPAP Mask Size: Large Respiratory Rate: 20 br/min ? Common Emergency [...] quit. Please call [facility] Mobile Game Day at [phone] or [phone]) or log in to [email or web address] for referrals to smoking cessation programs. ?? 805 Suicide & Crisis Lifeline is available 30/01 if you or someone you know needs to find a reason to keep living. By calling 993 you'll be connected to a skilled, trained counselor at a crisis center in your area. INPATIENT DISCHARGE INSTRUCTIONS SIGNATURE VIDHYA NYE Location:[facility] Registration Date and Time:02/17/2024 03:21 EDT Primary Care Physician: Montse GONZALEZ, Amy Okeefe, Attending Physician: Jeanne GONZALEZ, Ina Capps, I VIDHYA ADAM, have received the above patient education materials/instructions and have verbalized understanding. If ambulance or transport services are being used I further acknowledge being given a choice of service. ?? If you need to contact me, please call me at this number: . Patient/Plateman Name: Patient/Plateman Signature: Relationship to Patient: Witness Name/Signature: Date: Patient Care team information Care Team Personnel Name: Esha Whitaker RN Position: [facility] RN Member Role: Primary Care Nurse Name: Tala Curiel LPN Position: [facility] RN Member Role: Primary Care Nurse Name: Tk Iqbal RN Position: [facility] SN RN Member Role: Primary Care Nurse Name: Jovanny Stuart RN Position: [facility] RN Member Role: Primary Care Nurse Name: Delaney De Los Santos RN Position: [facility] SN RN Member Role: Primary Care Nurse Name: Batool Sweet RN Position: [facility] RN Member Role: Primary Care Nurse Name: Michelle Ricketts RN Position: [facility] RN Member Role: Primary Care Nurse Name: Santa Quiñonez RN Position: [facility] RN Member Role: Primary Care Nurse Name: Amy Willard MD Position: [facility] Physician - Primary Care Member Role: PCP Address: Address: [address] [place] [address] [address] [address] Name: Lainey Walker LPN Position: [facility] RN Member Role: Primary Care Nurse Name: Yanira Trevizo RN Position: [facility] RN Member Role: Primary Care Nurse Name: Batool Cervantes RN Position: [facility] RN Member Role: Primary Care Nurse Name: Fern Franklin LPN Position: [facility] RN Member Role: Primary Care Nurse Name: Vasyl Catherine RN Position: [facility] RN Member Role: Primary Care Nurse Name: Eve Masters RN Position: [facility] RN Member Role: Primary Care Nurse Name: Elizabeth Barrios RN Position: [facility] RN Member Role: Primary Care Nurse Name: Inessa Swan RN Position: [facility] RN Member Role: Primary Care Nurse Name: Jignesh Stoner RN Position: [facility] RN Member Role: Primary Care Nurse Name: Rosy Arriaza RN Position: [facility] RN Member Role: Primary Care Nurse Name: Demetri Watt RN Position: [facility] RN Member Role: Primary Care Nurse Name: John Guaman RN Position: [facility] RN Member Role: Primary Care Nurse Name: oRcio Andrade RN Position: [facility] RN Member Role: Primary Care Nurse Care Team Related Persons Name: KIA STEPHANI Address: [address] [place] [address] Name: NATHEN LLOYD
--- OUTSIDE RECORDS SUMMARY | 2024-03-16 18:12 | XMS_ITS | Continuity of Care Document ---
Author Organization [facility] ter Address [address] [place] [id number]- Care Team Providers Care Hearing Care Practitioner Name Role Phone Cherise Hamm MD Primary Care Physician [phone] Encounter [facility] Date(s): 01/28/24 - 01/28/[address] [address]- Encounter Diagnosis Urinary tract infection(Final) - 01/28/24 Chest pain(Final) - 01/28/24 Discharge Disposition: A-D/C Home Attending Physician: Zechariah [...] Date: 12/15/23 Stop Date: 12/22/23 Status: Ordered ciprofloxacin 500 mg oral tablet 1 tablet = 500 mg, By Mouth, Every 12 hours, for 7 days, # 14 tablet, 0 Refills, Acute 02/04/24 20:05:00 EDT, 01/28/24 20:05:00 EDT, Tablet, [id number], Partial fill upon patient request if the prescription is for a schedule II opioid drug., 1... Start Date: 01/28/24 Stop Date: 02/04/24 Status: Ordered Eliquis 5 mg oral tablet [...] Exam Date Time Procedure Performing Provider Status 01/28/24 4:[address] Abd/Pelvis W/ IV Contrast Only Mate o , Ruba; Auth (Verified) Notes: (CT Abd/Pelvis W/ IV Contrast Only) Reason For Exam: Pain RESULT: CT Abd/Pelvis W/ IV Contrast Only EXAMINATION: CT Angio Chest, CT Abd/Pelvis W/ IV Contrast Only INDICATION: Right-sided chest pain; Clinical Question(s): Pulmonary Embolism, obstruction TECHNIQUE: Spiral CTA of the chest was performed after rapid IV contrast administration without cardiac gating triggered by an TOMEKA on the main pulmonary artery. Spiral CT of the abdomen and pelvis was then performed in the portal venous phase. Images are formatted in multiple planes using 2-D multiplanar and 3-D maximum intensity projection. 100 cc of Omnipaque 300 was administered intravenously.This study was performed without oral contrast. Weight-based protocol using automatic tube modulation was used to optimize exposure parameters. CTDIvol Body: 21.35 mGy, DLP Body: 2044 mGy*cm. COMPARISONS: Chest CT without contrast of 10/30/2022, CTA chest of 09/12/[address] abdomen/pelvis of01/11/2023 Exam sensitivity is reduced secondary to patient body habitus and motion artifact ANGIOGRAPHIC FINDINGS: No pulmonary embolism to the segmental level. Main pulmonary artery is upper limits of normal in caliber. No acute aortic abnormality seen on this study performed without cardiac gating. Moderate atherosclerotic calcifications of the thoracic aorta. 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 Trachea and Airways: Patent without evidence of tracheal or endobronchial lesion. Lungs and Pleura: Mild bibasilar atelectasis. No evidence of confluent airspace opacity, lung consolidation, pleural effusion, or pneumothorax Mediastinum and loida: No mass or hematoma. No mediastinal or hilar lymphadenopathy. No esophageal abnormality. Unchanged heterogeneous enlargement of the right thyroid lobe. Heart: Heart is mildly enlarged. No pericardial effusion. Severe coronary artery calcification and mitral valve calcifications. Chest Wall Soft Tissues: No acute abnormality Liver: Heterogeneously enhancing 3.7 x 2.9 cm nodule within the posterior segment of the right hepatic lobe abutting the intrahepatic IVC is not significantly changed in size and favored to representbenign intrahepatic hemangioma. No evidence of liver surface contour abnormality. Gallbladder: No CT evidence of gallbladder pathology. Bile ducts: No biliary ductal dilation. Spleen: Within normal limits in size without focal abnormality Pancreas: Within normal limits for noncontrast technique Adrenal glands: No suspicious nodule Kidneys and ureters: No hydronephrosis, stones, or suspicious masses. Cortical scarring and cyst atthe upper pole of the left kidney is not significant changed in appearance. Bladder: Decompressed by Molina catheter. No definite suspicious mass. Reproductive organs: Heterogeneous globular appearance of the uterus which may represent multiple fibroids. No evidence of bulky adnexal mass Stomach, small bowel, and large bowel: Small type I hernia. The stomach, small bowel and large bowel are normal in caliber. No evidence of bowel obstruction. Moderate-large amount of retained stool throughout the colon. No evidence of pericolonic fat stranding. Appendix: Not visualized with certainty. No secondary evidence of acute appendicitis. Peritoneum and retroperitoneum: No ascites or pneumoperitoneum. No omental or mesenteric lesions. Lymph nodes: No enlarged lymph nodes. Abdominal and pelvic wall: No acute abnormality. Diffuse atrophy and fatty infiltration of the pelvic and proximal thigh musculature. Bones: No acute abnormality. Degenerative changes throughout the thoracolumbar spine including the levels of congenital or acquired vertebral body ankylosis. Severe degenerative changes of each hip. IMPRESSION: No CT evidence of acute pulmonary embolism to the segmental level or acute intrathoracic process No acute abnormality in the abdomen or pelvis. Moderate-large amount retained stool throughout the colon Heterogeneous globular appearance of the uterus which may be due to multiple fibroids which can be confirmed with dedicated pelvic ultrasound. Asymmetric enlargement and inhomogeneity of the right thyroid lobe. Correlation with dedicated targeted ultrasound recommended. Additional chronic findings as above An actionable message (Yellow) has been communicated via the [employer] system on 01/28/2024 6:02 PM, Message ID [id number]. I have personally reviewed the images and I agree with this report. WSN: [id number] Ordering Physician: Rosy Gold Dictated By: Cande Gutierrez MD Dictated Date/Time: 01/28/24 6:02 pm Reviewed By: Silver Stanley Jr, MD Signed By: Silver Stanley Jr, MD Signed Date/Time: 01/28/24 6:07 pm Transcribed By: SOLOMON Transcribed Date/Time: 01/28/24 5:26 pm * Exam Date Time Procedure Performing Provider Status 01/28/24 4:[address] Angio Chest Ruba Barrett; Auth ( Verified) Notes: (CT Angio Chest) Reason For Exam: Chest Pain;Other: RESULT: CT Angio Chest EXAMINATION: CT Angio Chest, CT Abd/Pelvis W/ IV Contrast Only INDICATION: Right-sided chest pain; Clinical Question(s): Pulmonary Embolism, obstruction TECHNIQUE: Spiral CTA of the chest was performed after rapid IV contrast administration without cardiac gating triggered by an TOMEKA on the main pulmonary artery. Spiral CT of the abdomen and pelvis was then performed in the portal venous phase. Images are formatted in multiple planes using 2-D multiplanar and 3-D maximum intensity projection. 100 cc of Omnipaque 300 was administered intravenously.This study was performed without oral contrast. Weight-based protocol using automatic tube modulation was used to optimize exposure parameters. CTDIvol Body: 21.35 mGy, DLP Body: 2044 mGy*cm. COMPARISONS: Chest CT without contrast of 10/30/2022, CTA chest of 09/12/[address] abdomen/pelvis of01/11/2023 Exam sensitivity is reduced secondary to patient body habitus and motion artifact ANGIOGRAPHIC FINDINGS: No pulmonary embolism to the segmental level. Main pulmonary artery is upper limits of normal in caliber. No acute aortic abnormality seen on this study performed without cardiac gating. Moderate atherosclerotic calcifications of the thoracic aorta. 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 Trachea and Airways: Patent without evidence of tracheal or endobronchial lesion. Lungs and Pleura: Mild bibasilar atelectasis. No evidence of confluent airspace opacity, lung consolidation, pleural effusion, or pneumothorax Mediastinum and loida: No mass or hematoma. No mediastinal or hilar lymphadenopathy. No esophageal abnormality. Unchanged heterogeneous enlargement of the right thyroid lobe. Heart: Heart is mildly enlarged. No pericardial effusion. Severe coronary artery calcification and mitral valve calcifications. Chest Wall Soft Tissues: No acute abnormality Liver: Heterogeneously enhancing 3.7 x 2.9 cm nodule within the posterior segment of the right hepatic lobe abutting the intrahepatic IVC is not significantly changed in size and favored to representbenign intrahepatic hemangioma. No evidence of liver surface contour abnormality. Gallbladder: No CT evidence of gallbladder pathology. Bile ducts: No biliary ductal dilation. Spleen: Within normal limits in size without focal abnormality Pancreas: Within normal limits for noncontrast technique Adrenal glands: No suspicious nodule Kidneys and ureters: No hydronephrosis, stones, or suspicious masses. Cortical scarring and cyst atthe upper pole of the left kidney is not significant changed in appearance. Bladder: Decompressed by Molina catheter. No definite suspicious mass. Reproductive organs: Heterogeneous globular appearance of the uterus which may represent multiple fibroids. No evidence of bulky adnexal mass Stomach, small bowel, and large bowel: Small type I hernia. The stomach, small bowel and large bowel are normal in caliber. No evidence of bowel obstruction. Moderate-large amount of retained stool throughout the colon. No evidence of pericolonic fat stranding. Appendix: Not visualized with certainty. No secondary evidence of acute appendicitis. Peritoneum and retroperitoneum: No ascites or pneumoperitoneum. No omental or mesenteric lesions. Lymph nodes: No enlarged lymph nodes. Abdominal and pelvic wall: No acute abnormality. Diffuse atrophy and fatty infiltration of the pelvic and proximal thigh musculature. Bones: No acute abnormality. Degenerative changes throughout the thoracolumbar spine including the levels of congenital or acquired vertebral body ankylosis. Severe degenerative changes of each hip. IMPRESSION: No CT evidence of acute pulmonary embolism to the segmental level or acute intrathoracic process No acute abnormality in the abdomen or pelvis. Moderate-large amount retained stool throughout the colon Heterogeneous globular appearance of the uterus which may be due to multiple fibroids which can be confirmed with dedicated pelvic ultrasound. Asymmetric enlargement and inhomogeneity of the right thyroid lobe. Correlation with dedicated targeted ultrasound recommended. Additional chronic findings as above An actionable message (Yellow) has been communicated via the [employer] system on 01/28/2024 6:02 PM, Message ID [id number]. I have personally reviewed the images and I agree with this report. WSN: [id number] Ordering Physician: Rosy Gold Dictated By: Cande Gutierrez MD Dictated Date/Time: 01/28/24 6:02 pm Reviewed By: Silver Stanley Jr, MD Signed By: Silver Stanley Jr, MD Signed Date/Time: 01/28/24 6:07 pm Transcribed By: SOLOMON Transcribed Date/Time: 01/28/24 5:26 pm * Exam Date Time Procedure Performing Provider Status 01/28/24 2:17 PM Chest Portable Alvaro Yeager; Isabel (Verified) Notes: (Chest Portable) Reason For Exam: Chest pain;Other: RESULT: Chest Portable Chest Portable Hx of Present Illness: patient states she started getting right sided chest pain this morning,; Reason: Other:; Chest pain; Clinical Question(s): Pneumonia COMPARISON: 01/11/2023 and priors. FINDINGS: LINES AND TUBES: None. LUNGS AND PLEURA: Worsening lung volumes, bilateral pulmonary vascular congestion and diffuse airspace opacities. No pleural effusion. No pneumothorax. HEART, MEDIASTINUM AND LOIDA: Heart is normal in size. Normal mediastinal and hilar contour. BONES AND SOFT TISSUES: No acute abnormality. IMPRESSION: Worsening congestion, low lung volumes, and bilateral airspace opacities suggestive of pulmonary congestion/edema. I have personally reviewed the images and I agree with this report. WSN: [id number] Ordering Physician: Josse Szymanski Dictated By: Gaudencio Bailon MD Dictated Date/Time: 01/28/24 2:41 pm Reviewed By: Donta Jerez MD Signed By: Donta Jerez MD Signed Date/Time: 01/28/24 2:46 pm Transcribed By: SOLOMON Transcribed Date/Time: 01/28/24 2:27 pm Vital Signs Most recent to oldest [Reference Range]: 1 2 3 Oxygen Saturation [94-100 %] 95 % (01/28/24 10:46 PM) 97 % (01/28/24 8:31 PM) 98 % (01/28/24 5:00 PM) Pulse Rate [55-90 bpm] 67 bpm (01/28/24 10:46 PM) 71 bpm (01/28/24 8:31 PM) 67 bpm (01/28/24 5:00 PM) Blood Pressure [90-138/55-84 mm Hg] 136/61mm Hg (01/28/24 10:46 PM) 126/55mm Hg (01/28/24 8:31 PM) 171/103mm Hg *H* (01/28/24 5:00 PM) Respiratory Rate [16-30 br/min] 20 br/min (01/28/24 10:46 PM) 18 br/min (01/28/24 8:31 PM) 17 br/min (01/28/24 5:00 PM) Temperature [96.8-100.4 DegF] 98.0 DegF (01/28/24 8:31 PM) 98 DegF (01/28/24 12:36 PM) Liters per Minute 1 L/min (01/28/24 10:46 PM) 1 L/min (01/28/24 8:31 PM) 1 L/min (01/28/24 5:00 PM) Mode of Delivery (Oxygen) Room air (01/28/24 10:46 PM) Nasal cannula (01/28/24 8:31 PM) Nasal cannula (01/28/24 5:00 PM) Blood pressure sites Arm, left (01/28/24 10:46 PM) Arm, left (01/28/24 5:00 PM) Arm, left (01/28/24 2:00 PM) Temperature Route Oral (01/28/24 8:31 PM) Oral (01/28/24 12:36 PM) Social History Social History Type Response Smoking Status Former smoker; [employer] user in household: No entered on: 01/17/17 Sex EKG study * Event Display: ECG 12-Lead Authored Date: Please click on pdf link to open report * Event Display: ECG 12-Lead Authored Date: Ventricular Rate: 66 BPM Atrial Rate: 66 BPM P-R Interval: 222 ms QRS Duration: 104 ms Q-T Interval: 416 ms QTC Calculation(Bazett): 436 ms P Gladstone: 11 degrees R Gladstone: -31 degrees T Gladstone: 67 degrees Sinus rhythm with 1st degree A-V block Left axis deviation Moderate voltage criteria for LVH, may be normal variant ( R in aVL , Daniel product ) 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) Abnormal ECG When compared with ECG of 25-DEC-2022 18:13, QRS axis Shifted left Confirmed by Duc Bishop ([id number]) on 01/28/2024 1:50:47 PM [place]: Duc Bishop Patient Care team information Care Team Personnel Name: Tala Curiel LPN Position: S RN Member Role: Primary Care Nurse Name: Tk Iqbal RN Position: [facility] SN RN Member Role: Primary Care Nurse Name: Jovanny Stuart RN Position: S RN Member Role: Primary Care Nurse Name: Delaney De Los Santos RN Position: [facility] SN RN Member Role: Primary Care Nurse [...] S Outreach Member Role: PCP Address: Address: [address] [place] [address] [place] [address]- Name: John Guaman RN Position: S RN Member Role: Primary Care Nurse Name: Rocio Andrade RN Position: S RN Member Role: Primary Care Nurse Care Team Related Persons Name: STEPHANI ADAM Address: [address] [address] Name: NATHEN LLOYD
--- OUTSIDE RECORDS SUMMARY | 2024-03-16 18:13 | XMS_ITS | Continuity of Care Document ---
Author Organization [facility] ter Address [address] [place] [id number] Care Team Providers Care Sales Representative Jewelry Name Role Phone Hansel GONZALEZ, Cherise Bolden Primary Care Physician [phone] Encounter [facility] [place] Date(s): 02/11/24 - 02/13/[address] [address] Discharge Disposition: A-Transfer SNF Attending Physician: Carol Palacios MD Admitting Physician: Abel Watkins MD Referring Physician: Not on Staff, Referring [...] drug. Start Date: 02/11/24 Status: Ordered albuterol 0.083% inhalation solution 3 mL = 2.5 mg, Neb, Every 6 hours, PRN Wheezing/Shortness of Breath, ICD J45.909 as needed every 6 hours for wheezing/ shortness of breath, # 360 mL, 2 Refills, Maintenance, 01/08/23 12:40:00 EDT, Solution, [facility]/pharmacy #[id number], ICD 10 - J45.901, 16... Start Date: 01/08/23 Status: Ordered albuterol-ipratropium 3 mg-0.5 mg/3 ml inhalation solution 3 mL, Neb, 3 times a day, Maintenance, 02/06/24 10:17:00 EDT, Partial fill upon patient request if the prescription is for a schedule II opioid drug. Start Date: 02/06/24 Status: Ordered albuterol-ipratropium 3 mg-0.5 mg/3 ml inhalation solution 3 mL, Inhalation, 4 times a day, PRN Wheezing/Shortness of Breath, Maintenance, 02/11/24 19:27:00 EDT, Solution, Partial fill upon patient request if the prescription is for a schedule II opioid drug. Start Date: 02/11/24 Status: Ordered aspirin 81 mg oral tablet, [...] 3 Refills, Maintenance, 11/01/22 11:09:00 EDT, Powder, [facility]/pharmacy #[id number], Partial fill upon patient request if the prescription is for a schedule II opioid drug., 1 puffs Inhalation Daily, 167.64, cm, 11/01/22 7... Start Date: 11/01/22 Status: Ordered doxycycline hyclate 100 mg oral tablet 1 tablet = 100 mg, By Mouth, Every 12 hours, for 3 days, # 6 tablet, 0 Refills, Acute 02/16/24 13:05:00 EDT, 02/13/24 13:05:00 EDT, Tablet, Partial fill upon patient request if the prescription is for a schedule II opioid drug. Start Date: 02/13/24 Stop Date: 02/16/24 Status: Ordered Dulcolax 10 mg rectal suppository [...] oral capsule 300 mg, Capsule, By Mouth, 02/13/24 9:00:00 EDT Start Date: 02/13/24 Stop Date: 02/13/24 Status: Completed gabapentin 300 mg oral capsule 300 mg, Capsule, By Mouth, 02/13/24 15:00:00 EDT Start Date: 02/13/24 Stop Date: 02/13/24 Status: Completed gabapentin 300 mg oral capsule [...] oral tablet 5 mg, Tablet, By Mouth, 02/13/24 9:00:00 EDT Start Date: 02/13/24 Stop Date: 02/13/24 Status: Completed metFORMIN 850 mg oral tablet [...] drug. Start Date: 02/11/24 Status: Ordered Nystop 776228 u/gm powder 1 applicator, Topically, 2 times [...] drug. Start Date: 02/06/24 Status: Ordered predniSONE 20 mg oral tablet See Instructions, Prednisone taper dose as follows 30 mg for 2 days, 20 mg for 2 days, 10 mg for 2 days and then stop, 0 Refills, Maintenance, 02/13/24 13:04:00 EDT, Tablet, Partial fill upon patientrequest if the prescription is for a schedule II op... Start Date: 02/13/24 Status: Ordered simvastatin 40 mg oral tablet [...] 11/01/22 11:29:00 EDT, Route to Pharmacy Electronically, [facility]/pharmacy #[id number], Partial fill upon patient request if the [...] release 50 mg, XL Tablet, By Mouth, 02/13/24 9:00:00 EDT Start Date: 02/13/24 Stop Date: 02/13/24 Status: Completed Trulicity Pen 0.75 mg/0.5 mL [...] Exam Date Time Procedure Performing Provider Status 02/11/24 12:[address] Abd/Pelvis W/ IV + Oral Contrast Audery Knight; Auth (Verified) Notes: (CT Abd/Pelvis W/ IV + Oral Contrast) Reason For Exam: RLQ abdominal pain;Other: RESULT: CT Abd/Pelvis W/ IV + Oral Contrast CT Abd/Pelvis W/ IV + Oral Contrast Reason: RLQ abdominal pain; TECHNIQUE: Spiral CT through the abdomen and pelvis with IV contrast formatted in 3 planes. 100 cc of Omnipaque 300 was administered intravenously. This study was performed with oral contrast. Weight-based protocol using automatic tube modulation was used to optimize exposure parameters. CTDIvol Body: 15.30 mGy, DLP Body: 873 mGy*cm. COMPARISON: 01/28/2024, 01/11/2023 and several earlier studies back to 08/02/2012 FINDINGS: Crate Tier View Findings, Lines and Tubes: Rai catheter well positioned in the bladder. Visualized Chest: * Increased moderate consolidation of the posterior left lung base. * Mild atelectasis right lung base. * No pleural or pericardial effusion. Diaphragm: Normal. Liver: Stable 3.5 cm lesion in the medial right lower is unchanged back to 2013. Gallbladder: Normal. Bile ducts: Normal. Spleen: Normal. Pancreas: Normal. Adrenal glands: Normal. Kidneys and ureters: Unchanged scarring left lateral kidney. Otherwise normal. No stones or obstruction. Bladder: Empty with Rai catheter in place. Reproductive organs: Unchanged fibroid uterus. Stomach, small bowel, and large bowel: Moderate diffuse stool retention. No inflammation, obstruction or mass. Appendix: Not seen, but no evidence of appendicitis. Peritoneum and retroperitoneum: No ascites or pneumoperitoneum. No omental or mesenteric lesions. Lymph nodes: No enlarged lymph nodes. Blood vessels: Severe atherosclerotic vascular calcification but no aneurysm. No evidence of venousthrombosis. Abdominal and pelvic wall: Unremarkable. Bones: No acute findings. IMPRESSION: 1. Moderate stool retention but no other acute intra-abdominal process. 2. Increased consolidation in the posterior left lung base is consistent with either atelectasis orpneumonia. I have personally reviewed the images and I agree with this report. WSN: [id number] Ordering Physician: Caitie Gonzalez Dictated By: Meeta Cheng DO Dictated Date/Time: 02/11/24 2:02 pm Reviewed By: Eduardo Gracia MD Signed By: Eduardo Gracia MD Signed Date/Time: 02/11/24 2:07 pm Transcribed By: SOLOMON Transcribed Date/Time: 02/11/24 1:40 pm * Exam Date Time Procedure Performing Provider Status 02/11/24 12:43 PM Chest 2 Views Frontal and Lat Makenzie Richter; Isabel (Verified) Notes: (Chest 2 Views Frontal and Lat) Reason For Exam: Shortness of Breath, Fever;Other: RESULT: Chest 2 Views Frontal and Lat Chest 2 Views Frontal and Lat INDICATION: Increased SOB since yesterday and chest pain started today; Reason: Shortness of Breath, Fever; Clinical Question(s): Pneumonia COMPARISON: Multiple priors, most recent 02/05/2024. FINDINGS: LINES AND TUBES: None. LUNGS AND PLEURA: Patchy opacification of the left lower lung and retrocardiac region with obscuration of left hemidiaphragm. Mild right basilar atelectasis. The left costophrenic angle is not within the [id number]. No pneumothorax. HEART, MEDIASTINUM AND KOLTON: Heart is at the upper limits of normal for size. Aorta is mildly calcified. BONES AND SOFT TISSUES: No acute abnormality. IMPRESSION: Left lower lobe pneumonia. Follow-up to resolution recommended. An actionable message (Pollock) has been communicated via the [employer] system on 02/11/2024 12:56 PM, Message ID [id number]. I have personally reviewed the images and I agree with this report. WSN: [id number] Ordering Physician: Caitie Gonzalez Dictated By: Red Garcia MD Dictated Date/Time: 02/11/24 12:56 p Reviewed By: Ramez Morales MD Signed By: Ramez Morales MD Signed Date/Time: 02/11/24 1:01 pm Transcribed By: SOLOMON Transcribed Date/Time: 02/11/24 12:53 pm Vital Signs Most recent to oldest [Reference Range]: 1 2 3 Height 167 cm (02/13/24 3:03 AM) 167 cm (02/12/24 8:39 PM) 167 cm (02/12/24 8:17 AM) Weight 120.6 kg (02/12/24 8:17 AM) Oxygen Saturation [94-100 %] 94 % (02/13/24 7:00 AM) 95 % (02/13/24 3:03 AM) 97 % (02/12/24 8:39 PM) Pulse Rate [55-90 bpm] 71 bpm (02/13/24 8:20 AM) 71 bpm (02/13/24 7:00 AM) 75 bpm (02/13/24 3:03 AM) Body Mass Index [18.5-24.99 kg/m2] 43.24 kg/m2 *>HHI* (02/12/24 8:17 AM) Blood Pressure [90-138/55-84 mm Hg] 144/70mm Hg *H* (02/13/24 8:20 AM) 144/70mm Hg *H* (02/13/24 8:20 AM) 144/70mm Hg *H* (02/13/24 7:00 AM) Respiratory Rate [16-30 br/min] 16 br/min (02/13/24 2:39 PM) 16 br/min (02/13/24 10:51 AM) 19 br/min (02/13/24 8:20 AM) Temperature [96.8-100.4 DegF] 97.8 DegF (02/13/24 7:00 AM) 97.5 DegF (02/13/24 3:03 AM) 97.9 DegF (02/12/24 8:39 PM) Liters per Minute 2 L/min (02/13/24 7:00 AM) 2 L/min (02/13/24 3:03 AM) 2 L/min (02/12/24 3:00 PM) Mode of Delivery (Oxygen) Nasal cannula (02/13/24 7:00 AM) Nasal cannula (02/13/24 3:03 AM) Room air (02/12/24 8:39 PM) Blood pressure sites Arm, left (02/13/24 7:00 AM) Arm, left (02/13/24 3:03 AM) Arm, right (02/12/24 8:39 PM) Temperature Route Oral (02/13/24 7:00 AM) Oral (02/13/24 3:03 AM) Oral (02/12/24 8:39 PM) Dry Weight 120.6 kg (02/12/24 8:17 AM) Weight Obtained Via Bed scale (02/12/24 8:17 AM) Social History Social History Type Response Smoking Status Former smoker; Tobac co user in household: No entered on: 01/17/17 Sex History and physical note * Bowen GONZALEZ, Patricio Pond: PERFORM Event Display: History and Physical Hospital Authored Date: Patient: ??ALEAH CONNOR ? Age:??73 Years?Sex:??Female?:??1950?? Chief Complaint/Reason for Consultation coming from rehab. thi lift is broken so was sent to rehab. h/o COPD on 2L O2 at baseline. complaining of cough, shortness of breath, vomiting, abdominal pain History of Present Illness 73-year-old female??with past medical history??significant for??paroxysmal atrial fibrillation on Eliquis,??chronic diastolic congestive heart failure,??COPD on 2 L??home oxygen,??morbid obesity??with??ERICKA/OHS on CPAP at night,??insulin-dependent diabetes mellitus,??diabetic neuropathy,??hypertensio n,??hyperlipidemia,??neurogenic bladder with chronic indwelling??Rai catheter, and nonambulatory at baseline??sent to the emergency department from rehab today??with several days of cough and worsening dyspnea.?? She feels very congested in her chest.?? She has not had fever.?? She has been receiving nebulized treatments at the rehab facility which she does not feel is helping.?? Last night shehad episodes of vomiting??associated with heavy coughing, and abdominal pain.?? She denies diarrheaor urinary symptoms.?? She reports she was recently treated for UTI.?? She was last admitted here at [facility] from 01/11/2023 to 01/13/2023??for diarrhea and dehydration. ?? In the emergency room, the patient has max temperature 100.2 orally.?? She has been hemodynamically stable.?? She is in a normal sinus rhythm in the 60s on the monitor.?? She is saturating 97 to 99% on 2 L nasal cannula.?? Chest x-ray shows left lower lobe pneumonia.?? CT of the abdomen and pelvis confirms increased consolidation in the posterior left lung base, and moderate stool retention without other acute intra-abdominal process.?? Laboratory workup was remarkable for sodium 129, chloride 86, bicarb 32, glucose 197, creatinine 0.37, calcium 8.4, and normal LFTs.?? BNP was minimally elevated at 276, with flat high-sensitivity troponin values at 17.?? COVID-19 PCR testing was negative.?? Urine sample showed moderate bacteria, but only 4 white cells. Review of Systems Other than those positives as noted in the HPI above, all other systems were reviewed and are negative. Objective ? Vital Signs?? Temperature: 100.2 DegF (02/11/24 10:33:00) Temperature Route: Oral (02/11/24 10:33:00) Pulse Rate: 64 bpm (02/11/24 20:04:00) Respiratory Rate: 19 br/min (02/11/24 20:04:00) Systolic Blood Pressure:??153 mm Hg??High (02/11/24 20:04:00) Diastolic Blood Pressure:??93 mm Hg??High (02/11/24 20:04:00) Blood pressure sites: Arm, left (02/11/24 20:04:00) Mean Arterial Pressure: 99 mm Hg (02/11/24 10:34:00) Pulse Pressure: 60 mm Hg (02/11/24 20:04:00) Oxygen Saturation: 99 % (02/11/24 20:04:00) Liters per Minute: 2 L/min (02/11/24 20:04:00) Mode of Delivery (Oxygen): Nasal cannula (02/11/24 20:04:00) Early Warning Score: 5 (02/11/24 22:17:08) ? Pain Scores 1 - 10 Pain Scale Score: 6 (10:34) ? Physical Exam General Appearance: Alert, appears chronically ill, mild respiratory??distress with cough, answers questions appropriately HEENT: Normocephalic, atraumatic, PERRL, EOMI, no scleral icterus, no facial droop, dry mucous membranes, no oropharynx lesions?? Neck: Supple, no JVD, no C-Spine tenderness Cardiac: RRR, S1 & S2 present, no m / r / g appreciated Chest: Diffuse rhonchi and expiratory wheezing, no tenderness to percussion Abdomen: Soft, nontender, morbidly obese, no rebound or guarding, no masses, normal bowel sounds inall quadrants Extremities: No clubbing or cyanosis, chronic trace pretibial edema with stasis changes. ??2+ distal pulses.?? No calf tenderness or cords Skin: Warm, no other??rash or open wounds Neuro: ??A & O x 3, CN III-XII intact, no focal motor or sensory deficits Psych: ??Stable mood, appropriate affect Assessment/Plan Assessment:??73-year-old female??with past medical history??significant for??paroxysmal atrial fibrillation on Eliquis,??chronic diastolic congestive heart failure,??COPD on 2 L??home oxygen,??morbidobesity??with??ERICKA/OHS on CPAP at night,??insulin-dependent diabetes mellitus,??diabetic neuropathy, ??hypertension,??hyperlipidemia,??neurogenic bladder with chronic indwelling??Rai catheter, and nonambulatory at baseline??sent to the emergency department from rehab today??with several days of cough and worsening dyspnea, with associated vomiting and abdominal pain.?Chest x-ray shows left lower lobe pneumonia.??CT of the abdomen and pelvis confirms increased consolidation in the posterior left lung base, and moderate stool retention without other acute intra-abdominal process.??Admissionrequested for??pneumonia with COPD exacerbation. ?? Pneumonia of left lower lobe due to infectious organism (J18.9) ?Associated with??COPD with acute exacerbation (J44.1) The patient has significant cough and bronchospasm at the time of my evaluation.??She has been noting increased??sputum production.??No chest pain at the time of my evaluation,??with??no evidence forACS.?She does not currently have criteria for sepsis.??She is hemodynamically stable??with reassuring lactic acid level. 1. Admit to the medical floor, pulse oximetry monitoring, incentive spirometry 2. Continue Rocephin 1 g IV daily and azithromycin 500 mg IV daily 3.??Start??Solu-Medrol 60 mg IV every 8 hours with transition to oral prednisone??as she improves 4.??Scheduled DuoNebs 4 times daily, and every 4 hours as needed for wheezing 5.??Titrate supplemental oxygen to keep pulse oximetry 90 to 92% 6. Check sputum culture if??she can expectorate; check MRSA PCR as she has been at [facility] 7. Check streptococcal and Legionella urinary antigens 8. Monitor CBC with differential and blood cultures; check procalcitonin level 9. Monitor metabolic panel 10. Guaifenesin as needed for cough 11.??Continue montelukast as prescribed; [facility] 12. Oral suctioning as needed ? Vomiting (R11.10) ?Associated with??Constipation (K59.00),??Abdominal pain (R10.9) ??I suspect posttussive emesis??and musculoskeletal abdominal pain secondary to coughing.??Constipation could also be??contributing to abdominal pain. She denies??feeling nauseous and is no longer vomiting at the time of my evaluation. Start scheduled bowel regimen??(Colace/senna twice daily, and MiraLAX daily). Dulcolax suppository as needed??for ongoing constipation and/or Fleet enema. ?? Hyponatremia (E87.1):??I suspect the patient is??mildly hypovolemic??given recent??emesis, illness,and poor oral intake. Corrected sodium value is 131, for hyperglycemia. Mental status is appropriate. Check urine sodium and osmolality. We will hydrate gently overnight with normal saline at 75 cc/h for 1 L. Hold Lasix for now. Monitor electrolytes and renal function. ?? Paroxysmal atrial fibrillation (I48.0):??Currently the patient is in a normal sinus rhythm. Continue metoprolol as prescribed. Continue apixaban as prescribed. ?? Chronic diastolic congestive heart failure (I50.32):??She appears??slightly hypovolemic??based on exam and laboratory findings. We will gently hydrate??overnight??with normal saline as above. Hold furosemide. Continue lisinopril??cautiously with??holding parameters. Monitor respiratory status closely. ?? Insulin dependent type 2 diabetes mellitus (E11.9):??Blood sugar 197 on arrival, and likely to be higher with use of steroids. Continue Lantus insulin at 80% of home dosing??while monitoring oral intake??(we will give??54 units this evening). Monitor POC's with insulin lispro sliding scale coverage. Hold metformin after contrast studies. Trulicity is nonformulary here. Continue gabapentin as prescribed. ?? Hypertensive disorder (I10) Hyperlipidemia (E78.5):??Monitor blood pressure in the setting of infection. Current blood pressure 153/93. Renal function is stable. Continue lisinopril and metoprolol as prescribed. Continue aspirin and simvastatin as prescribed. ?? Neurogenic bladder (N31.9):??Rai is draining clear urine. Check urine culture. Continue oxybutynin??daily. ?? VTE Prophylaxis:??On Eliquis. ?VTE Prophylaxis Assessment:??VTE Prophylaxis Ordered ?? Discharge Planning:??Anticipate discharge back to SNF. 2 to 4 days hospitalization. ?? Code Status:??FULL per MOLST form. ?Order Code Status:??Code Status Ordered ?? I spent a total of??82 minutes today reviewing the chart / medical records, evaluating the patient,evaluating and interpreting laboratory and imaging data, formulating and discussing the treatment plan, and documenting the encounter. ? Histories Allergies Allergies ?(Active and Proposed Allergies Only) Silvadene? (Severity: Unknown severity, Onset: Unknown) ?Reactions: unsure, skin alicea ? Past Medical History/Problem List Active Problems(16) Cataract Chronic diastolic congestive heart failure Chronic indwelling Rai catheter Chronic obstructive lung disease COVID-19 Hyperlipidemia Hypertensive disorder Insulin dependent type 2 diabetes mellitus Morbid obesity Neurogenic bladder Neurologic disorder associated with type II diabetes mellitus Obstructive sleep apnea on CPAP Paraparesis of both lower limbs Paroxysmal atrial fibrillation Postmenopausal bleeding Wheelchair dependent ? Past Surgical History cataract surgery ? Social History Alcohol Details:??Use: Never. Substance Abuse Details:??Use: Never. Tobacco Details:??Never smoker, Tobacco user in household: No. ? Family History No Family History contributory to this admission. ? Medications Home Medications Acetaminophen (acetaminophen 325 [...] (aspirin 81 mg oral tablet, chewable)?81?Milligram?1?tablet?By Mouth?Daily Bisacodyl (Dulcolax 10 mg rectal suppository)?1?suppository(ies)?10?Milligram?Rectall y?Daily?as [...] Glargine (Lantus Solostar Pen 100 units/mL subcutaneous solution)?68?unit(s)?Subcutaneous Injection?Daily at bedtime Insulin Lispro (Humalog Kwik Pen 100 units/mL subcutaneous injection)?3-11 units?SubcutaneousInjection?3 times a day before meals?As directed per sliding [id number]=5 [id number]=8 [id number]=1 [id number]= 9 [id number] 400= 11 units Lisinopril (lisinopril 5 mg oral tablet)?5?Milligram?1?tablet?By Mouth?Daily Metformin (metFORMIN 850 mg oral tablet)?1?tab(s)?850?Milligram?By Mouth?Daily Metoprolol (Toprol XL 50 mg oral tablet, extended release)?50?Milligram?1?tablet?By Mouth?Daily Milk of Magnesia (Milk of Magnesia 8% oral suspension)?30?Milliliter?2.4?gram?By Mouth?Daily?as needed?for constipation Montelukast (Singulair 10 mg oral tablet)?10?Milligram?1?tablet?By Mouth?Daily inPM nalOXONE (Narcan 4 mg/0.1 mL nasal spray)?1?spray(s)?4?Milligram?Once?as needed?as needed Nystatin Topical (Nystop 539325 u/gm powder)?1?applicator?Topically?2 times a day Oxybutynin (oxybutynin 5 mg/24 hours oral tablet, extended release)?1?tab(s)?5?Milligram?By Mouth?Daily at bedtime Oxygen?2?Liter?Nares, Both?Daily Potassium Chloride (Klor-Con 20 mEq oral powder for reconstitution)?2?Each?40?Milliequivalent?By Mouth?Every 72 hours Simvastatin (simvastatin 40 mg oral tablet)?40?Milligram?1?tablet?By Mouth?Daily at bedtime Sodium Biphosphate-Sodium Phosphate (Fleet Enema 19 gm-7 gm rectal enema)?1?Each?Rectally?Once?as needed?for constipation ? Results Recent Labs BLOOD COUNT & DIFF WBC 5.4 k/mm3 ()?? 02/11/2024 10:23 RBC 5.31 m/mm3 ()?? 02/11/2024 10:23 Hgb 13.0 Gm/dL ()?? 02/11/2024 10:23 Hct 42.3 % ()?? 02/11/2024 10:23 MCV 79.7 femtoliters (Low)?? 02/11/2024 10:23 MCH 24.5 pg (Low)?? 02/11/2024 10:23 MCHC 30.7 g/dL (Low)?? 02/11/2024 10:23 Platelet Count 140 k/mm3 (Low)?? 02/11/2024 10:23 RDW-SD 54.1 femtoliters (High)?? 02/11/2024 10:23 MPV NOT MEASURED femtoliters ()?? 02/11/2024 10:23 Nucleated RBC (Automated) 0.0 #/100 WBC'S ()?? 02/11/2024 10:23 Abs. NRBC 0.0 k/mm3 ()?? 02/11/2024 10:23 Abs. Neut 3.3 k/mm3 ()?? 02/11/2024 10:23 Abs. Lymph 1.1 k/mm3 ()?? 02/11/2024 10:23 Abs. [place] 0.9 k/mm3 ()?? 02/11/2024 10:23 Abs. Eo 0.1 k/mm3 ()?? 02/11/2024 10:23 Abs. Baso 0.0 k/mm3 ()?? 02/11/2024 10:23 Neut % 60.4 % ()?? 02/11/2024 10:23 Lymph % 20.3 % ()?? 02/11/2024 10:23 [place] % 16.5 % (High)?? 02/11/2024 10:23 Eos % 2.2 % ()?? 02/11/2024 10:23 Baso % 0.2 % ()?? 02/11/2024 10:23 Imm Gran 0.4 % ()?? 02/11/2024 10:23 Abs. Imm Gran 0.0 k/mm3 ()?? 02/11/2024 10:23 ?? CARDIAC Nt-Probnp 276 pg/mL (High)?? 02/11/2024 10:23 High Sensitivity Troponin (HSTnT) 17 ng/L (High)?? 02/11/2024 13:49 ?? CHEM GENERAL Sodium 129 mmol/L (Low)?? 02/11/2024 10:23 Potassium 4.2 mmol/L ()?? 02/11/2024 10:23 Chloride 86 mmol/L (Low)?? 02/11/2024 10:23 Bicarbonate Level 32 mmol/L (High)?? 02/11/2024 10:23 Anion Gap 11 ()?? 02/11/2024 10:23 Glucose Level 197 mg/dL (High)?? 02/11/2024 10:23 Glucose, POC 79 mg/dL ()?? 02/11/2024 22:11 BUN 8 mg/dL ()?? 02/11/2024 10:23 Creatinine-Blood 0.37 mg/dL (Low)?? 02/11/2024 10:23 Estimated GFR Creatinine 107 ML/MIN/1.73 M2 ()?? 02/11/2024 10:23 Calcium 8.4 mg/dL (Low)?? 02/11/2024 10:23 Protein, Total 6.1 Gm/dL (Low)?? 02/11/2024 10:23 Albumin 3.6 Gm/dL ()?? 02/11/2024 10:23 AG Ratio 1.4 ()?? 02/11/2024 10:23 Alkaline Phosphatase 111 units/L (High)?? 02/11/2024 10:23 Lipase 15 units/L ()?? 02/11/2024 10:23 AST (SGOT) 17 units/L ()?? 02/11/2024 10:23 ALT (SGPT) 13 units/L ()?? 02/11/2024 10:23 Bilirubin, Total 0.3 mg/dL ()?? 02/11/2024 10:23 Lactate 1.5 mmol/L ()?? 02/11/2024 10:23 ? UA/URINALYSIS Appear/Color, Urine LIGHT YELLOW ()?? 02/11/2024 13:41 Specific [place], Urine 1.006 ()?? 02/11/2024 13:41 pH, Urine 7.0 ()?? 02/11/2024 13:41 Albumin, Urine TRACE (Abnormal)?? 02/11/2024 13:41 Glucose, Urine NEGATIVE ()?? 02/11/2024 13:41 Ketones, Urine NEGATIVE ()?? 02/11/2024 13:41 Bilirubin, Urine NEGATIVE ()?? 02/11/2024 13:41 Hemoglobin, Urine 2+ (Abnormal)?? 02/11/2024 13:41 Nitrite, Urine NEGATIVE ()?? 02/11/2024 13:41 Leukocyte, Urine 2+ (Abnormal)?? 02/11/2024 13:41 Urobilinogen NORMAL mg/dL ()?? 02/11/2024 13:41 WBC's, Urine 4 /HPF ()?? 02/11/2024 13:41 RBC's, Urine 3 /HPF ()?? 02/11/2024 13:41 Bacteria MODERATE HPF (Abnormal)?? 02/11/2024 13:41 Squamous Epith <1 /HPF ()?? 02/11/2024 13:41 Amorphous Crystals MODERATE /HPF ()?? 02/11/2024 13:41 ?? VIROLOGY COVID-19 PCR Result NEGATIVE ()?? 02/11/2024 13:41 ? Image ?CT Abd/Pelvis W/ IV + Oral Contrast??02/11/2024 12:59 by Audrey Knight ?IMPRESSION: 1. Moderate stool retention but no other acute intra- abdominal process. 2. Increased consolidation in the posterior left lung base is consistent with either atelectasis orpneumonia. ?XR Chest 2 Views Frontal and Lat??02/11/2024 12:43 by Makenzie Richter ?IMPRESSION: Left lower lobe pneumonia. Follow-up to resolution recommended. ?12 Lead ECG??02/11/2024 10:01 by Duc Bishop MD ?Ventricular Rate: 72??BPM Atrial Rate: 72??BPM P-R Interval: 194??ms QRS Duration: 98??ms Q-T Interval: 388??ms QTC Calculation(Bazett): 424??ms P [place]: 21??degrees R [place]: -2??degrees T [place]: 62??degrees Sinus rhythm with Blocked Premature atrial complexes Otherwise normal ECG When compared with ECG of 05-FEB-2024 10:12, Premature atrial complexes are now Present Confirmed by Duc Bishop ([id number]) on 02/11/2024 1:57:31 PM ?? EKG study * Event Display: EKG Authored Date: * Event Display: ECG 12-Lead Authored Date: Please click on pdf link to open report * Event Display: ECG 12-Lead Authored Date: Ventricular Rate: 72 BPM Atrial Rate: 72 BPM P-R Interval: 194 ms QRS Duration: 98 ms Q-T Interval: 388 ms QTC Calculation(Bazett): 424 ms P [place]: 21 degrees R [place]: -2 degrees T [place]: 62 degrees Sinus rhythm with Blocked Premature atrial complexes Otherwise normal ECG When compared with ECG of 05-FEB-2024 10:12, Premature atrial complexes are now Present Confirmed by Duc Bishop ([id number]) on 02/11/2024 1:57:31 PM [place]: [facility] Progress note * Linda Tabor LPN: PERFORM, MODIFY, SIGN, VERIFY Event Display: Progress Note Hospital Authored Date: Patient: ALEAH CONNOR Age: 73 years Sex: Female : 1950 Associated Diagnoses: None Author: Linda Tabor LPN Findings Narrative/Incidental Aleah Connor is bedfast patient who is A+O x4 with postive bowel sounds, radial and pedal pulses. Lung sounds were diminshed and she did have a lot of coughing and hacking producing some clear sputum. She is on 2liters of continuous O2 via nasal cannula but she does need constant remiders to keep her O2 on. She has a 26' fench rai catheter (45cc balloon) with yellow urine being produced. At 8:4 7 PM the MD was contacted due to a POCT of 405 and STAT lispro insulin order of 6units along with the betime scheduled dose of 54 glargine insulin was given. An order to recheck at midnight. At 9:24PM scheduled albuterol treatment was given. At midnight her POCT recheck was 358. Aleah later on continued to cough/hack and then to report slight difficulty breathing (labored and uneven) and requested another treatment which was given at 12:22AM along with a PRN dose of Robitussin. Due to elevated blood sugar at 2am POCT was done again and results were 393. MD was notified again and 8units of lispro STAT was ordered and given. Patients coughing and sputum has been reslolved and is now sleeping with respirations at 18 and unlabored. Another recheck is to be done at 5:30AM . Discharge Information Case Management Discharge Plan : Case Management Discharge Plan Data 02/07/2024 10:43 EDT Discharge Level of Care at Discharge long term facility Discharge Nursing Homes/Rehab Facilities [facility] Discharge Transportation Arranged [facility] [place] [facility] [phone] Discharge Arranged Transport Date/Time 02/07/2024 12:30 Mode of Transportation Arranged Ambulance Name of Agency #1 [facility] Service Comments #1 you are going to [facility] until your thi lift is fixed 02/06/2024 16:12 EDT Discharge Level of Care at Discharge long term facility Discharge Nursing Homes/Rehab Facilities [facility] Name of Agency #1 [facility] Service Comments #1 You are being discharged from the ED to [facility] for halfway careuntil your Thi Lift is fixed at home * Amy GONZALEZ, Elisa: PERFORM Event Display: Progress Note Hospital Authored Date: Patient: ??ALEAH CONNOR ? Age:??73 Years?Sex:??Female?:??1950?? Subjective Patient seen and examined at bedside. Respiratory status slowly improving. Continues to have productive cough with clear sputum. Has indwelling chronic Rai catheter present on admission Currently on IV antibiotics ceftriaxone and Zithromax. ??Positive MRSA swab. Follow-up sputum cultures. Ordered incentive spirometer and chest PT??Acapella. As respiratory status improved will change IV steroids to??oral prednisone. Wheelchair-bound, at the facility. Review of Systems Morbidly obese with a BMI of 43 Hypoxic respiratory failure??on supplemental O2 via nasal cannula at baseline Chronic indwelling Rai catheter.?? Wheelchair-bound Objective Measurements?? Height: 167 cm (02/12/24) Weight: 120.6 kg (02/12/24) Dry Weight: 120.6 kg (02/12/24) Body Mass Index:??43.24 kg/m2??Critical (02/12/24) ? Vital Signs?? Temperature: 97.8 DegF (02/12/24 08:17:00) Temperature Route: Oral (02/12/24 08:17:00) Pulse Rate: 78 bpm (02/12/24 08:17:00) Respiratory Rate: 18 br/min (02/12/24 09:39:00) Systolic Blood Pressure:??154 mm Hg??High (02/12/24 08:17:00) Diastolic Blood Pressure:??96 mm Hg??High (02/12/24 08:17:00) Blood pressure sites: Arm, left (02/12/24 08:17:00) Mean Arterial Pressure: 115 mm Hg (02/12/24 08:17:00) Pulse Pressure: 58 mm Hg (02/12/24 08:17:00) Oxygen Saturation: 97 % (02/12/24 08:17:00) Liters per Minute: 2 L/min (02/12/24 08:17:00) Mode of Delivery (Oxygen): Nasal cannula (02/12/24 08:17:00) Early Warning Score: 7 (02/12/24 11:47:08) ? Physical Exam General: AAO X 3, ill appearing, fatigued; obese body habitus HEENT: Normocephalic, Atraumatic Neck: soft, supple Respiratory: no wheezing, no crackles, poor?? Cardiovascular: RRR, S1, S2 heard Gastrointestinal: Soft, non tender, normal Bowel sounds, nondistended SCUDDING INSPECTOR: Alert awake and oriented X 3 . No acute focal neurological deficits Musculoskeletal/Back: Range of motion all 4 extremities within normal limits Extremities: No pitting pedal edema, no calf tenderness. Assessment/Plan 73-year-old female??with past medical history??significant for??paroxysmal atrial fibrillation on Eliquis,??chronic diastolic congestive heart failure,??COPD on 2 L??home oxygen,??morbid obesity??with??ERICKA/OHS on CPAP at night,??insulin-dependent diabetes mellitus,??diabetic neuropathy,??hypertensio n,??hyperlipidemia,??neurogenic bladder with chronic indwelling??Rai catheter, and nonambulatory at baseline??sent to the emergency department from rehab today??with several days of cough and worsening dyspnea, with associated vomiting and abdominal pain.?Chest x-ray shows left lower lobe pneumonia.??CT of the abdomen and pelvis confirms increased consolidation in the posterior left lung base, and moderate stool retention without other acute intra-abdominal process.??Admission requested for??pneumonia with COPD exacerbation. ?? Pneumonia of left lower lobe due to infectious organism (J18.9): COPD with acute exacerbation (J44.1):?? Significant cough and bronchospasm??on admission.??She has been noting increased??sputum production.??No chest pain at the time of my evaluation,??with??no evidence for ACS. Continue Rocephin 1 g IV daily and azithromycin 500 mg IV daily Resp status improved- changed Solu-Medrol 60 mg IV every 8 hours to oral prednisone Scheduled DuoNebs 4 times daily, and every 4 hours as needed for wheezing Titrate supplemental oxygen to keep pulse oximetry 90 to 92% F/u streptococcal and Legionella urinary antigens Procal low at 0.04 but given the pt's clinical presentation, PMH will continue abx Guaifenesin as needed for cough Continue montelukast as prescribed; transition??back to [facility] at discharge ?? Vomiting (R11.10):? Constipation (K59.00):? Abdominal pain (R10.9): Likely posttussive emesis??and musculoskeletal abdominal pain secondary to coughing.??Constipation could also be??contributing to abdominal pain. She denies??feeling nauseous and is no longer vomiting at the time of my evaluation. Start scheduled bowel regimen??(Colace/senna twice daily, and MiraLAX daily). Dulcolax suppository as needed??for ongoing constipation and/or Fleet enema. ?? Paroxysmal atrial fibrillation (I48.0):??Currently the patient is in a normal sinus rhythm. Continue metoprolol??and apixaban ?? Chronic diastolic congestive heart failure (I50.32):??She appears??slightly hypovolemic??based on exam and laboratory findings. S/p IV fluids Hold furosemide. Continue lisinopril??cautiously with??holding parameters. Monitor respiratory status closely. ?? Insulin dependent type 2 diabetes mellitus (E11.9):??Blood sugar 197 on arrival, and likely to be higher with use of steroids. Continue Lantus insulin at 80% of home dosing??while monitoring oral intake??(we will give??54 units this evening). Monitor POC's with insulin lispro sliding scale coverage. Hold metformin after contrast studies. Trulicity is nonformulary here. Continue gabapentin as prescribed. ?? Hypertensive disorder (I10):??- Hyperlipidemia (E78.5):??Monitor blood pressure in the setting of infection. Current blood pressure 153/93. Renal function is stable. Continue lisinopril and metoprolol as prescribed. Continue aspirin and simvastatin as prescribed. ?? Neurogenic bladder (N31.9):??Rai is draining clear urine. F/u urine culture. Continue oxybutynin??daily. ?? Hyponatremia (E87.1):??likely mildly hypovolemic??given recent??emesis, illness, and poor oral intake. Corrected sodium value is 131, for hyperglycemia. Mental status is appropriate. S/p IV fluids Hold Lasix for now. ?? VTE Prophylaxis:??On Eliquis. ?? Discharge Planning/OMN:??Anticipate discharge back to SNF. F/u cultures. Monitor??resp status ?? Code Status:??FULL per MOLST form. * Elizabeth Barrios RN: PERFORM, SIGN, VERIFY Event Display: Progress Note Hospital Authored Date: Patient: ALEAH CONNOR Age: 73 years Sex: Female : 1950 Associated Diagnoses: None Author: Elizabeth Barrios RN Findings Narrative/Incidental Patient arrived on unit on stretcher slid over to bed, max assist bed mobility, A&Ox3, denies pain, denies sob, see biophysical for full assessment, tolerating diet, took meds as prescribed, bed in lowest, locked position with call bain in reach.. Discharge Information Case Management Discharge Plan : Case Management Discharge Plan Data 02/07/2024 10:43 EDT Discharge Level of Care at Discharge long term facility Discharge Nursing Homes/Rehab Facilities [facility] Discharge Transportation Arranged [facility] [address] [facility] [id number] [phone] Discharge Arranged Transport Date/Time 02/07/2024 12:30 Mode of Transportation Arranged Ambulance Name of Agency #1 [facility] Service Comments #1 you are going to [facility] until your thi lift is fixed 02/06/2024 16:12 EDT Discharge Level of Care at Discharge long term facility Discharge Nursing Homes/Rehab Facilities [facility] Name of Agency #1 [facility] Service Comments #1 You are being discharged from the ED to [facility] for halfway careuntil your Thi Lift is fixed at home Note * Ken Crespo RN: PERFORM Event Display: Discharge/Transfer Note Hospital Authored Date: Nursing Discharge Note Entered On: 02/13/2024 14:05 EDT Performed On: 02/13/2024 14:05 EDT by Ken Crespo RN Nursing Discharge Note 2 Discharge Time : 02/13/2024 14:50 EDT DC Instructions Provided & Signed by Pt : Yes Patient Understands D/C Instructions : Yes Ken Crespo RN - 02/13/2024 17:17 EDT Discharge Level of Care at Discharge : long term facility Discharge Nursing Homes/Rehab Facilities : [facility] Patient Left Unit Via : Ambulance Patient Accompanied Off Unit with : Ambulance/[facility] Van Personnel Handover Given to Transport Personnel : Yes Ken Crespo RN - 02/13/2024 14:05 EDT Verbalized Understanding of D/C Plan By : Patient Patient Instructions Discharge Signed : Yes Did Pt have Specialty Bed or Wound Vac : Yes Ken Crespo RN - 02/13/2024 17:17 EDT * Carol Palacios MD: PERFORM Event Display: Discharge/Transfer Note Hospital Authored Date: Patient: ??ALEAH CONNOR ? Age:??73 Years?Sex:??Female?:??1950?? Patient Information Discharge Location: Primary Care Physician: Cherise Hamm MD Admit Date/Time: 02/11/24 17:19 Discharge Disposition Discharge Disposition: Intermediate Facility/Rehab Discharge Diagnosis Pneumonia of left lower lobe due to infectious organism (J18.9) COPD with acute exacerbation (J44.1) Vomiting (R11.10) Constipation (K59.00) Abdominal pain (R10.9) Hyponatremia (E87.1) Paroxysmal atrial fibrillation (I48.0) Chronic diastolic congestive heart failure (I50.32) Insulin dependent type 2 diabetes mellitus (E11.9) Hypertensive disorder (I10) Hyperlipidemia (E78.5) Neurogenic bladder (N31.9) _ Discharge Medications Acetaminophen (acetaminophen 325 mg [...] oral tablet, chewable)?1,000?Milligram?2?tablet?Chew?Every 4 hours?as needed?for indigestion Doxycycline (doxycycline hyclate 100 mg oral tablet)?1?tab(s)?100?Milligram?By Mouth?Every 12 hours?for 3?Days dulaglutide (Trulicity Pen 0.75 mg/0.5 mL subcutaneous [...] a day before meals?As directed per sliding [id number] -369=5 [id number] [id number]= 9 [id number] 400= 11 units Lisinopril (lisinopril 5 mg oral tablet)?5?Milligram?1?tablet?By Mouth?Daily Metformin (metFORMIN 850 mg oral tablet)?1?tab(s)?850?Milligram?By Mouth?Daily Metoprolol (Toprol XL 50 mg oral tablet, extended release)?50?Milligram?1?tablet?By Mouth?Daily Milk of Magnesia (Milk of Magnesia 8% oral suspension)?30?Milliliter?2.4?gram?By Mouth?Daily?as needed?for constipation Montelukast (Singulair 10 mg oral tablet)?10?Milligram?1?tablet?By Mouth?Daily inPM nalOXONE (Narcan 4 mg/0.1 mL nasal spray)?1?spray(s)?4?Milligram?Once?as needed?as needed Nystatin Topical (Nystop 538414 u/gm powder)?1?applicator?Topically?2 times a day Oxybutynin (oxybutynin [...] gm-7 gm rectal enema)?1?Each?Rectally?Once?as needed?for constipation ? 72 Hour Antibiotic History Active Antibiotics Calendar Day Last Administered First Administered Ceftriaxone??1 Gm, 100 mL/hr, IVPB, Every 24 hours ?2 02/12/2024 13:54 02/12/2024 13:54 ? Stopped Antibiotics Stop Date/Time Last Administered First Administered Azithromycin??500 mg, 250 mL/hr, IVPB, Every 24 hours 02/13/2024 07:25 02/12/2024 19:27 02/12/2024 19:27 Azithromycin??500 mg, 250 mL/hr, IVPB, Once 02/11/2024 14:36 02/11/2024 14:36 02/11/2024 14:36 Ceftriaxone??1 Gm, IVPB, Once 02/11/2024 13:33 02/11/2024 13:33 02/11/2024 13:33 ? Medications Started Doxycycline, prednisone, tessalon perles Medications Discontinued Potassium Doses Changed Lantus PCP Follow-Up/Heads-Up - Repeat blood work - Follow-up on discharge. - Please review list of medications. Hospital Course 73-year-old female??with past medical history??significant for??paroxysmal atrial fibrillation on Eliquis,??chronic diastolic congestive heart failure,??COPD on 2 L??home oxygen,??morbid obesity??with??ERICKA/OHS on CPAP at night,??insulin-dependent diabetes mellitus,??diabetic neuropathy,??hypertensio n,??hyperlipidemia,??neurogenic bladder with chronic indwelling??Rai catheter, and nonambulatory at baseline??sent to the emergency department from rehab today??with several days of cough and worsening dyspnea, with associated vomiting and abdominal pain.?Chest x-ray shows left lower lobe pneumonia.??CT of the abdomen and pelvis confirms increased consolidation in the posterior left lung base, and moderate stool retention without other acute intra-abdominal process.??Admission requested for??pneumonia with COPD exacerbation. He was initiated on IV antibiotics however not noted to be febrile or leukocytosis??however given COPD, she likely has pneumonia plus COPD exacerbation.??Additional treatment for COPD exacerbation was also initiated. ??Home diuretics were transiently held, resumed on discharge. ??Remaining of her medications continued as such. ??Given above, decision to discharge with??plan to complete course of p.o. antibiotics. She expresses understanding and agrees with the plan. Please see prior??documents/images for details of hospitalization course. ? Pneumonia of left lower lobe due to infectious organism (J18.9): COPD with acute exacerbation (J44.1):?? Significant cough and bronchospasm??on admission.??She has been noting increased??sputum production.??No chest pain at the time of my evaluation,??with??no evidence for ACS. Continue Rocephin 1 g IV daily and azithromycin 500 mg IV daily Resp status improved- changed Solu-Medrol 60 mg IV every 8 hours to oral prednisone Scheduled DuoNebs 4 times daily, and every 4 hours as needed for wheezing Titrate supplemental oxygen to keep pulse oximetry 90 to 92% F/u streptococcal and Legionella urinary antigens Procal low at 0.04 but given the pt's clinical presentation, PMH will continue abx Guaifenesin as needed for cough Continue montelukast as prescribed; transition??back to [facility] at discharge ?? Vomiting (R11.10):? Constipation (K59.00):? Abdominal pain (R10.9): Likely posttussive emesis??and musculoskeletal abdominal pain secondary to coughing.??Constipation could also be??contributing to abdominal pain. She denies??feeling nauseous and is no longer vomiting at the time of my evaluation. Start scheduled bowel regimen??(Colace/senna twice daily, and MiraLAX daily). Dulcolax suppository as needed??for ongoing constipation and/or Fleet enema. ?? Paroxysmal atrial fibrillation (I48.0):??Currently the patient is in a normal sinus rhythm. Continue metoprolol??and apixaban ?? Chronic diastolic congestive heart failure (I50.32):??She appears??slightly hypovolemic??based on exam and laboratory findings. S/p IV fluids Hold furosemide. Continue lisinopril??cautiously with??holding parameters. Monitor respiratory status closely. ?? Insulin dependent type 2 diabetes mellitus (E11.9):??Blood sugar 197 on arrival, and likely to be higher with use of steroids. Continue Lantus insulin at 80% of home dosing??while monitoring oral intake??(we will give??54 units this evening). Monitor POC's with insulin lispro sliding scale coverage. Hold metformin after contrast studies. Trulicity is nonformulary here. Continue gabapentin as prescribed. ?? Hypertensive disorder (I10):??- Hyperlipidemia (E78.5):??Monitor blood pressure in the setting of infection. Current blood pressure 153/93. Renal function is stable. Continue lisinopril and metoprolol as prescribed. Continue aspirin and simvastatin as prescribed. ?? Neurogenic bladder (N31.9):??Rai is draining clear urine. F/u urine culture. Continue oxybutynin??daily. ?? Hyponatremia (E87.1):??likely mildly hypovolemic??given recent??emesis, illness, and poor oral intake. Corrected sodium value is 131, for hyperglycemia. Mental status is appropriate. S/p IV fluids Hold Lasix for now. ?? VTE Prophylaxis:??On Eliquis. Objective . Physical Exam General: AAO X 3,??obese??female??sitting up in bed comfortably,??oxygen via nasal cannula, not in any distress. HEENT: Normocephalic, Atraumatic Neck: soft, supple Respiratory: no wheezing, no crackles, poor?? Cardiovascular: RRR, S1, S2 heard Gastrointestinal: Soft, non tender, normal Bowel sounds, nondistended SCUDDING INSPECTOR: Alert awake and oriented X 3 . No acute focal neurological deficits Musculoskeletal/Back: Range of motion all 4 extremities within normal limits Extremities: No pitting pedal edema, no calf tenderness. Pending Results Add On Lab Order ordered on 02/11/2024 Add On Lab Order ordered on 02/11/2024 Legionella Antigen Urine ordered on 02/11/2024 Sputum, Gram Smear w/Culture Rfx ordered on 02/11/2024 Strep Pneumoniae Urinary Ag ordered on 02/11/2024 Follow-Up Appointments Added Follow Up ?Time Frame ?Comments Hansel GONZALEZ , Cherise Bolden Patient Instructions ??? Please follow-up with a primary care physician for vitamins or medications and repeating a set of blood work. ??? Patient to emergency department for experiencing the following symptoms including but not omitted chest pain, palpitations, shortness of breath or any other issues. ?? Medication changes are as follows: -Doxycycline 100 mg twice daily for the next 3 days -Prednisone taper dose as follows 30 mg for 2 days, 20 mg for 2 days, 10 mg for 2 days and then stop -Tessalon Perles needed for cough to be used epidural 3 times a day -Lantus dose has been decreased to 54 units at bedtime, please reach out to your physician, and titrate medications as needed. Post Discharge Care Discharge ?02/13/24 13:06:00 EDT Home Health Face to Face ^[facility] Results Discharge Labs BACTERIOLOGY MRSA PCR Result Positive, MRSA target DNA detected. (Abnormal)?? 02/11/2024 23:21 S Aureus ??PCR Result Positive, SA target DNA detected. (Abnormal)?? 02/11/2024 23:21 Urine Culture Results Final report ()?? 02/11/2024 13:41 Blood Culture Results Preliminary report ()?? 02/11/2024 10:23 Blood Culture Specimen Source BLOOD ()?? 02/11/2024 10:23 Blood Culture Isolate 1 Comment ()?? 02/11/2024 10:23 Blood Cult 2 Results Preliminary report ()?? 02/11/2024 11:11 Blood Culture 2 Specimen Source BLOOD ()?? 02/11/2024 11:11 Blood Culture 2 Isolate 1 Comment ()?? 02/11/2024 11:11 Urine Culture Specimen Source URINE ()?? 02/11/2024 13:41 Urine Culture Isolate 1 Comment ()?? 02/11/2024 13:41 ? BLOOD COUNT & DIFF WBC 4.5 k/mm3 ()?? 02/13/2024 02:03 RBC 5.24 m/mm3 ()?? 02/13/2024 02:03 Hgb 12.9 Gm/dL ()?? 02/13/2024 02:03 Hct 41.5 % ()?? 02/13/2024 02:03 MCV 79.2 femtoliters (Low)?? 02/13/2024 02:03 MCH 24.6 pg (Low)?? 02/13/2024 02:03 MCHC 31.1 g/dL (Low)?? 02/13/2024 02:03 Platelet Count 131 k/mm3 (Low)?? 02/13/2024 02:03 RDW-SD 53.7 femtoliters (High)?? 02/13/2024 02:03 MPV NOT MEASURED femtoliters ()?? 02/13/2024 02:03 Nucleated RBC (Automated) 0.0 #/100 WBC'S ()?? 02/13/2024 02:03 Abs. NRBC 0.0 k/mm3 ()?? 02/13/2024 02:03 Abs. Neut 3.6 k/mm3 ()?? 02/13/2024 02:03 Abs. Lymph 0.5 k/mm3 (Low)?? 02/13/2024 02:03 Abs. [place] 0.4 k/mm3 ()?? 02/13/2024 02:03 Abs. Eo 0.0 k/mm3 ()?? 02/13/2024 02:03 Abs. Baso 0.0 k/mm3 ()?? 02/13/2024 02:03 Neut % 80.8 % (High)?? 02/13/2024 02:03 Lymph % 10.3 % (Low)?? 02/13/2024 02:03 [place] % 8.5 % ()?? 02/13/2024 02:03 Eos % 0.0 % ()?? 02/13/2024 02:03 Baso % 0.0 % ()?? 02/13/2024 02:03 Imm Gran 0.4 % ()?? 02/13/2024 02:03 Abs. Imm Gran 0.0 k/mm3 ()?? 02/13/2024 02:03 ?? CARDIAC Nt-Probnp 276 pg/mL (High)?? 02/11/2024 10:23 High Sensitivity Troponin (HSTnT) 17 ng/L (High)?? 02/11/2024 13:49 ?? CHEM GENERAL Sodium 128 mmol/L (Low)?? 02/13/2024 02:03 Potassium 4.3 mmol/L ()?? 02/13/2024 02:03 Chloride 87 mmol/L (Low)?? 02/13/2024 02:03 Bicarbonate Level 29 mmol/L ()?? 02/13/2024 02:03 Anion Gap 12 ()?? 02/13/2024 02:03 Glucose Level 405 mg/dL (High)?? 02/13/2024 02:03 Glucose, POC 321 mg/dL (High)?? 02/13/2024 11:18 BUN 16 mg/dL ()?? 02/13/2024 02:03 Creatinine-Blood 0.46 mg/dL (Low)?? 02/13/2024 02:03 Estimated GFR Creatinine 102 ML/MIN/1.73 M2 ()?? 02/13/2024 02:03 Calcium 8.9 mg/dL ()?? 02/13/2024 02:03 Magnesium 1.6 mg/dL ()?? 02/13/2024 02:03 Protein, Total 6.1 Gm/dL (Low)?? 02/11/2024 10:23 Albumin 3.6 Gm/dL ()?? 02/11/2024 10:23 AG Ratio 1.4 ()?? 02/11/2024 10:23 Alkaline Phosphatase 111 units/L (High)?? 02/11/2024 10:23 Lipase 15 units/L ()?? 02/11/2024 10:23 AST (SGOT) 17 units/L ()?? 02/11/2024 10:23 ALT (SGPT) 13 units/L ()?? 02/11/2024 10:23 Bilirubin, Total 0.3 mg/dL ()?? 02/11/2024 10:23 Lactate 1.5 mmol/L ()?? 02/11/2024 10:23 ? MISC. CHEMISTRY Procalcitonin 0.04 ng/mL ()?? 02/11/2024 10:23 ? UA/URINALYSIS Appear/Color, Urine LIGHT YELLOW ()?? 02/11/2024 13:41 Specific [place], Urine 1.006 ()?? 02/11/2024 13:41 pH, Urine 7.0 ()?? 02/11/2024 13:41 Albumin, Urine TRACE (Abnormal)?? 02/11/2024 13:41 Glucose, Urine NEGATIVE ()?? 02/11/2024 13:41 Ketones, Urine NEGATIVE ()?? 02/11/2024 13:41 Bilirubin, Urine NEGATIVE ()?? 02/11/2024 13:41 Hemoglobin, Urine 2+ (Abnormal)?? 02/11/2024 13:41 Nitrite, Urine NEGATIVE ()?? 02/11/2024 13:41 Leukocyte, Urine 2+ (Abnormal)?? 02/11/2024 13:41 Urobilinogen NORMAL mg/dL ()?? 02/11/2024 13:41 WBC's, Urine 4 /HPF ()?? 02/11/2024 13:41 RBC's, Urine 3 /HPF ()?? 02/11/2024 13:41 Bacteria MODERATE HPF (Abnormal)?? 02/11/2024 13:41 Squamous Epith <1 /HPF ()?? 02/11/2024 13:41 Amorphous Crystals MODERATE /HPF ()?? 02/11/2024 13:41 Hold Urine Culture Testing available 48 hours from time of collection. ()?? 02/11/2024 23:21 ? URINE OTHER Sodium, Urine Random 23 mmol/L ()?? 02/11/2024 23:21 Osmolality, Urine Random 214 mOsm/kg ()?? 02/11/2024 23:21 Est Creatinine Clearance 102.48 mL/min ()?? 02/13/2024 03:08 ? VIROLOGY COVID-19 PCR Specimen Source NASAL ()?? 02/11/2024 13:41 COVID-19 PCR Result NEGATIVE ()?? 02/11/2024 13:41 ? 31??minutes spent on discharge * Event Display: Discharge/Transfer Note Hospital Authored Date: * Jannie Thomas RN: VERIFY, PERFORM, SIGN Event Display: Case Management Discharge Plan Authored Date: Patient: ALEAH CONNOR Age: 73 years Sex: Female : 1950 Associated Diagnoses: None Author: Jannie Thomas RN Discharge Plan Case Management Discharge Plan : Case Management Discharge Plan Data 02/13/2024 10:41 EDT Discharge Level of Care at Discharge long term facility Discharge Nursing Homes/Rehab Facilities [facility] Discharge Transportation Arranged [facility] [phone] Discharge Arranged Transport Date/Time 02/13/2024 14:00 (Modified) Mode of Transportation Arranged Ambulance Name of Agency #1 [facility] [place] [facility] Intake Service Categories #1 Intermediate Service Comments #1 [facility] will provide your care after discharge, if any questions or concerns, please contact the facility directly. * Cherie FARNSWORTH, Ken Sanchez: PERFORM, MODIFY Event Display: Patient Education/Instruction Authored Date: [id number] Inpatient Adult Discharge Instructions. [address] [address] Name: ALEAH CONNOR : 1950?? Visit: 02/11/2024 17:19?? Current Date: 02/13/2024 14:06 ?? Account: [id number]?? Inpatient Adult Discharge Instructions We would like [...] and their families. Surveys are administered by [employer] ?? If further treatment with your primary care physician or another doctor is recommended, it is important for you to keep the appointment. Call your primary care physician or return to the Emergency Department immediately if your condition worsens, fails to improve, or new symptoms develop. If you need to find a doctor, you can call [facility] [employer] Link for a referral at [phone] or toll free at [phone] or log in to [email or web address].. ?? [facility], in keeping with [facility] guidance, no longer requires face masks [...] a health care shaneka of your choosing. [employer] is a website that allows you to securely view your medical information including your hospital discharge summary, office visit summaries, medications and follow-up visits. You can also request appointments, renew medications, and request access to your medical information using a health care shaneka of your choosing, or just ask a question. You can enroll at [email or web address] or register during your next office visit. You have been discharged from [facility], Patient Care Unit: S3??. If you have any questions regarding these instructions, including results of studies pending, afteryou leave, please call us and we will be happy to assist you 30/01. [facility] Your Care Team Attending Physician Carol Palacios MD?? Consulting Providers Carol Palacios MD?? Discharging Providers Carol Palacios MD Reason for Your Visit coming from rehab. thi lift is broken so was sent to rehab. h/o COPD on 2L O2 at baseline. complaining of cough, shortness of breath, vomiting, abdominal pain?? Your Diagnosis Pneumonia of left lower lobe due to infectious organism COPD with acute exacerbation Vomiting Constipation Abdominal pain Hyponatremia Paroxysmal atrial fibrillation Chronic diastolic congestive heart failure Insulin dependent type 2 diabetes mellitus Hypertensive disorder Hyperlipidemia Neurogenic bladder Tests Performed Below is a partial list of the tests performed during your hospitalization. You may have had other tests and procedures not included in this list. Please discuss all test results with your provider. Basic Metabolic Panel Blood Culture Blood Culture #2 Blood Culture 2 Results Blood Culture Result CBC w/ Differential Comprehensive Metabolic Panel COVID-19 (2019 Novel Coronavirus) PCR GLUCOSE POC High??Sensitivity??Troponin T HOLD URINE CULTURE Lactate Level Lipase Magnesium Level MRSA/MSSA PCR Nasal Swab ProBNP PROCALCITONIN, SERUM Sodium Urine Sputum, Gram Smear w/Culture Rfx?-- Results Pending -- Urinalysis w/hold for Urine Culture Urine Culture Result Urine Culture, Routine Urine Osmolality CT Abd/Pelvis W/ IV + Oral Contrast XR Chest 2 Views Frontal and Lat Add On Lab Order?? B Type Natriuretic Peptide (ProBNP)?? Basic Metabolic Panel?? Blood Culture?? Blood Culture #2?? Blood Culture 2 Results?? Blood Culture Result?? CBC w/ Differential?? COVID-19 (2019 Novel Coronavirus) PCR?? CT Abd/Pelvis W/ IV + Oral Contrast?? Comprehensive Metabolic Panel?? Glucose POC?? High??Sensitivity??Troponin T?? Hold Urine Culture?? Lactic Acid Level (Lactate Level)?? Legionella Antigen Urine?? Lipase?? MRSA/MSSA PCR Nasal Swab?? Magnesium Level?? Osmolality Urine (Urine Osmolality)?? Procalcitonin Level (PROCALCITONIN, SERUM)?? Sodium Urine?? Sputum, Gram Smear w/Culture Rfx?? Strep Pneumoniae Urinary Ag?? Urinalysis w/hold for Urine Culture?? Urine Culture (Urine Culture, Routine)?? Urine Culture Result?? Chest 2 Views Frontal and Lat (XR Chest 2 Views Frontal and Lat)?? Primary Care Provider Hansel GONZALEZ , Cherise Bolden? Advance Directive Health Care Proxy on File Yes - Health Care Proxy Yes - MOLST Discharge Vitals Temperature: 97.8 DegF Height: 167 cm Pulse Rate: 71 bpm Weight: 120.6 kg Respiratory Rate: 16 br/min Body Mass Index:??43.24 kg/m2??Critical Systolic Blood Pressure:??144 mm Hg??High Body surface area: 2.37 Systolic Blood Pressure:??144 mm Hg??High ?? Diastolic Blood Pressure: 70 mm Hg ?? Diastolic Blood Pressure: 70 mm Hg ?? Oxygen Saturation: 94 % ?? Studies Pending All studies ordered during this hospital stay have been completed unless listed below. Please discuss all pending results with your provider listed above in these instructions. ?? Add On Lab Order?? Legionella Antigen Urine?? Sputum, Gram Smear w/Culture Rfx?? Strep Pneumoniae Urinary Ag?? What to do next Instructions From Your Doctor ??? Please follow-up with a primary care physician for vitamins or medications and repeating a set of blood work. ??? Patient to emergency department for experiencing the following symptoms including but not omitted chest pain, palpitations, shortness of breath or any other issues. ?? Medication changes are as follows: -Doxycycline 100 mg twice daily for the next 3 days -Prednisone taper dose as follows 30 mg for 2 days, 20 mg for 2 days, 10 mg for 2 days and then stop -Tessalon Perles needed for cough to be used epidural 3 times a day -Lantus dose has been decreased to 54 units at bedtime, please reach out to your physician, and titrate medications as needed. ?? Orders? 02/13/24 13:06:00 EDT?? You Need to Schedule the Following Appointments Follow Up with??Hansel GONZALEZ , Cherise Bolden Where: [address] [place] [address]- Discharge Medications ALEAH CONNOR :1950 Visit Date:02/11/2024 Medications: Please continue your medications until treatment is completed or stopped by your provider. Medications not listed below should be discontinued. Discuss any questions related to medications with your provider. What How Much When Instructions Next Dose New Benzonatate (benzonatate 200 mg oral capsule) 200 Milligram Oral 3 times a day as needed for Cough Duration: 5 Days as needed for cough New Doxycycline (doxycycline hyclate 100 mg oral tablet) 1 tab(s) Oral Every 12 hours Duration: 3 Days 8 9pm New PredniSONE (predniSONE 20 mg oral tablet) See instructions Prednisone taper dose as follows 30 mg for 2 days, 20 mg for 2 days, 10 mg for 2 days and then stop ?? taper is a daily dose per Dr. Palacios ([facility] [place]) 8 9am Changed Insulin Glargine (Lantus Solostar Pen 100 units/ mL subcutaneous solution) 54 unit(s) Subcutaneous Injection Daily at Bedtime 8 9pm Unchanged Acetaminophen (acetaminophen 325 mg oral tablet) 2 tab(s) Oral Every 4 hours as needed for as needed for fever/pain as needed Unchanged Albuterol (albuterol 0.083% inhalation solution) 3 Milliliter Nebulized inhalation Every 6 hours as needed for Wheezing/Shortness of Breath ICD J45.909 ?? as needed every 6 hours for wheezing/ ??shortness of breath ?? as needed Unchanged Albuterol/ Ipratropium (albuterol-ipratropium 3 mg-0.5 mg/ 3 ml inhalation solution) 3 Milliliter Inhalation 4 times a day as needed for Wheezing/Shortness of Breath as needed Unchanged Albuterol/ Ipratropium (albuterol-ipratropium 3 mg-0.5 mg/ 3 ml inhalation solution) 3 Milliliter Nebulized inhalation 3 times a day 02/12 4pm Unchanged apixaban (Eliquis 5 mg oral tablet) 1 tab(s) Oral Twice a day 02/12 9pm Unchanged Aspirin (aspirin 81 mg oral tablet, chewable) 1 tab(s) Oral Daily 02/13 9am Unchanged Bisacodyl (Dulcolax 10 mg rectal suppository) 1 suppository(ies) Per rectum Daily as needed for as needed for constipation as needed Unchanged Calcium Carbonate (Tums 500 mg oral tablet, chewable) 2 tab(s) Chew Every 4 hours as needed for for indigestion as needed Unchanged dulaglutide (Trulicity Pen 0.75 mg/ 0.5 mL subcutaneous solution) 0.5 Milliliter Subcutaneous Injection Every 02/14 9am Unchanged Ergocalciferol (Vitamin D2 50,000 intl units (1.25 mg) oral capsule) 1 capsule Oral Every 02/14 9am Unchanged Famotidine (Pepcid 20 mg oral tablet) 1 tab(s) Oral Daily 02/13 9am Unchanged Fluticasone Nasal (Flonase Allergy Relief 50 mcg/ inh nasal spray) 1 spray(s) Nares, Both Twice a day 02/12 9pm Unchanged fluticasone-vilanterol (Breo Ellipta 200 mcg-25 mcg/ inh inhalation powder) 1 puff(s) Inhalation Daily 02/13 9am Unchanged Furosemide (Lasix 80 mg oral tablet) 1 tab(s) Oral Daily Duration: 30 Days 02/13 9am Unchanged Gabapentin (gabapentin 300 mg oral capsule) 1 capsule Oral 3 times a day 02/12 3pm Unchanged Guaifenesin (guaiFENesin 100 mg/ 5 mL oral liquid) 10 Milliliter Oral 4 times a day as needed for for cough as needed Unchanged Insulin Lispro (Humalog Kwik Pen 100 units/ mL subcutaneous injection) 3-11 units Subcutaneous Injection 3 times a day before meals As directed per sliding scale 150-199=3 units 200-249=5 units 250-299=7 units 300-349= 9 units 350-400= 11 units ?? 02/12 4:30pm Unchanged Lisinopril (lisinopril 5 mg oral tablet) 1 tab(s) Oral Daily 02/13 9am Unchanged Metformin (metFORMIN 850 mg oral tablet) 1 tab(s) Oral Daily 02/13 9am Unchanged Metoprolol (Toprol XL 50 mg oral tablet, extended release) 1 tab(s) Oral Daily 02/13 9am Unchanged Milk of Magnesia (Milk of Magnesia 8% oral suspension) 30 Milliliter Oral Daily as needed for for constipation as needed Unchanged Montelukast (Singulair 10 mg oral tablet) 1 tab(s) Oral Daily in PM 02/12 9pm Unchanged nalOXONE (Narcan 4 mg/ 0.1 mL nasal spray) 1 spray(s) Once as needed for as needed as needed Unchanged Nystatin Topical (Nystop 963170 u/ gm powder) 1 applicator Topically Twice a day 02/12pm Unchanged Oxybutynin (oxybutynin 5 mg/ 24 hours oral tablet, extended release) 1 tab(s) Oral Daily at Bedtime 02/12 9pm Unchanged Oxygen 2 Liter Nares, Both Daily nasal cannula Unchanged Simvastatin (simvastatin 40 mg oral tablet) 1 tab(s) Oral Daily at Bedtime 02/12 9pm Unchanged Sodium Biphosphate-Sodium Phosphate (Fleet Enema 19 gm-7 gm rectal enema) 1 Each Per rectum Once as needed for for constipation as needed ?? What How Much When Comments Stop Taking Potassium Chloride (Klor-Con 20 mEq oral powder for reconstitution) 2 Each Oral Every 72 hours Prescription Given During Visit Doxycycline (doxycycline hyclate 100 mg oral tablet) - 1 tablet = 100 mg, By Mouth, Every 12 hours,# 6 tablet, 0 Refills?? Laboratory Results Below is a partial list of the most recent Laboratory test results done prior to this discharge. You may have had other tests and procedures not included in this list. Please discuss all test resultswith your provider. Est Creatinine Clearance - 102.48 mL/min (02/13/2024) Basic Metabolic Panel (02/13/2024) ???Sodium - 128 mmol/L???Potassium - 4.3 mmol/L???Chloride - 87 mmol/L???Bicarbonate Level - 29 mmol/L???Anion Gap - 12???Glucose Level - 405 mg/dL???BUN - 16 mg/dL???Creatinine-Blood - 0.46 mg/dL???Estimated GFR Creatinine - 102 ML/MIN/1.73 M2???Calcium - 8.9 mg/dL Blood Culture (02/11/2024) ???Blood Culture Results - Preliminary report???Blood Culture Specimen Source - BLOOD Blood Culture #2 (02/11/2024) ???Blood Cult 2 Results - Preliminary report???Blood Culture 2 Specimen Source - BLOOD Blood Culture 2 Results (02/11/2024) ???Blood Culture 2 Isolate 1 - Comment Blood Culture Result (02/11/2024) ???Blood Culture Isolate 1 - Comment CBC w/ Differential (02/13/2024) ???WBC - 4.5 k/mm3???RBC - 5.24 m/mm3???Hgb - 12.9 Gm/dL???Hct - 41.5 %???MCV - 79.2 femtoliters???MCH - 24.6 pg???MCHC - 31.1 g/dL???Platelet Count - 131 k/mm3???RDW-SD - 53.7 femtoliters???MPV - NOT MEASURED???Nucleated RBC (Automated) - 0.0 #/100 WBC'S???Abs. NRBC - 0.0 k/mm3???Abs. Neut - 3.6 k/ mm3???Abs. Lymph - 0.5 k/mm3???Abs. Burnet - 0.4 k/mm3???Abs. Eo - 0.0 k/mm3???Abs. Baso - 0.0 k/mm3???Neut % - 80.8 %???Lymph % - 10.3 %???[place] % - 8.5 %???Eos % - 0.0 %???Baso % - 0.0 %???Imm Gran - 0.4 %???Abs. Imm Gran - 0.0 k/mm3 Comprehensive Metabolic Panel (02/11/2024) ???Sodium - 129 mmol/L???Potassium - 4.2 mmol/L???Chloride - 86 mmol/L???Bicarbonate Level - 32 mmol/L???Anion Gap - 11???Glucose Level - 197 mg/dL???BUN - 8 mg/dL???Creatinine-Blood - 0.37 mg/dL???Estimated GFR Creatinine - 107 ML/MIN/1.73 M2???Calcium - 8.4 mg/dL???Protein, Total - 6.1 Gm/dL???Alb umin - 3.6 Gm/dL???AG Ratio - 1.4???Alkaline Phosphatase - 111 units/L???AST (SGOT) - 17 units/L???ALT (SGPT) - 13 units/L???Bilirubin, Total - 0.3 mg/dL COVID-19 (2019 Novel Coronavirus) PCR (02/11/2024) ???COVID-19 PCR Specimen Source - NASAL???COVID-19 PCR Result - NEGATIVE GLUCOSE POC (02/13/2024) ???Glucose, POC - 321 mg/dL High??Sensitivity??Troponin T (02/11/2024) ???High Sensitivity Troponin (HSTnT) - 17 ng/L HOLD URINE CULTURE (02/11/2024) ???Hold Urine Culture - Testing available 48 hours from time of collection. Lactate Level (02/11/2024) ???Lactate - 1.5 mmol/L Lipase (02/11/2024) ???Lipase - 15 units/L Magnesium Level (02/13/2024) ???Magnesium - 1.6 mg/dL MRSA/MSSA PCR Nasal Swab (02/11/2024) ???MRSA PCR Result - Positive, MRSA target DNA detected.???S Aureus PCR Result - Positive, SA target DNA detected. ProBNP (02/11/2024) ???Nt-Probnp - 276 pg/mL PROCALCITONIN, SERUM (02/11/2024) ???Procalcitonin - 0.04 ng/mL Sodium Urine (02/11/2024) ???Sodium, Urine Random - 23 mmol/L Urinalysis w/hold for Urine Culture (02/11/2024) ???Appear/Color, Urine - LIGHT YELLOW???Specific [place], Urine - 1.006???pH, Urine - 7.0???Albumin, Urine - TRACE???Glucose, Urine - NEGATIVE???Ketones, Urine - NEGATIVE???Bilirubin, Urine - NEGATIVE???Hemoglobin, Urine - 2+???Nitrite, Urine - NEGATIVE???Leukocyte, Urine - 2+???Urobilinogen - NORMAL? ?WBC's, Urine - 4 /HPF? ?RBC's, Urine - 3 /HPF? ?Bacteria - MODERATE? ?Squamous Epith - <1 /HPF???Amorphous Crystals - MODERATE???Hold Urine Culture - Testing available 48 hours from time of collection. Urine Culture Result (02/11/2024) ???Urine Culture Isolate 1 - Comment Urine Culture, Routine (02/11/2024) ???Urine Culture Results - Final report???Urine Culture Specimen Source - URINE Urine Osmolality (02/11/2024) ???Osmolality, Urine Random - 214 mOsm/kg You will be contacted within 72 hours [...] Belongings I fully understand and agree that [facility] accepts no responsibility for all [...] patient Date for Pt to Sign Valuables/Belongings: 02/12/24 08:57:00 ?? Other Discharge Information ? Case Management Discharge Plan?? Discharge Plan?? Discharge Agency Information?? Discharge Level of Care at Discharge: long term facility Name of Agency #1: [facility] Discharge Transportation Arranged: [facility] [phone] Agency [facility]: Intake Mode of Transportation Arranged: Ambulance Service Categories #1: Intermediate Discharge Arranged Transport Date/Time: 02/13/24 14:00:00 Service Comments #1: [facility] will provide your care after discharge, ifany questions or concerns, please contact the facility directly. Discharge Nursing Homes/Rehab Facilities: [facility] ? Pulmonary Rehab Status?? Pulmonary Rehab Discharge [...] are strongly encouraged to quit. Please call [employer] at [phone] or [phone] ([phone]) or log in to [email or web address] for referrals to smoking cessation programs. ?? 558 Suicide & Crisis Lifeline is available 30/01 if you or someone you know needs to find a reason to keep living. By calling 988 you'll be connected to a skilled, trained counselor at a crisis center in your area. INPATIENT DISCHARGE INSTRUCTIONS SIGNATURE PAGE ALEAH CONNOR Location:[facility] Registration Date and Time:02/11/2024 17:19 EDT Primary Care Physician: Cherise Hamm MD, Attending Physician: Suzanne GONZALEZ, [place], I ALEAH CONNOR, have received the above patient education materials/instructions and have verbalized understanding. If ambulance or transport services are being used I further acknowledge being given a choice of service. ?? If you need to contact me, please call me at this number: . Patient/Director Of Online Education Name: Patient/Director Of Online Education Signature: Relationship to Patient: Witness Name/Signature: Date: Patient Care team information Care Team Personnel Name: Tala Curiel LPN Position: [facility] RN Member Role: Primary Care Nurse Name: Tk Iqbal RN Position: [facility] SN RN Member Role: Primary Care Nurse Name: Jovanny Stuart RN Position: [facility] RN Member Role: Primary Care Nurse Name: Delaney De Los Santos RN Position: [facility] SN RN Member Role: Primary Care Nurse Name: Batool Sweet RN Position: [facility] RN Member Role: Primary Care Nurse Name: Michelle Ricketts RN Position: [facility] RN Member Role: Primary Care Nurse Name: Lainey Walker LPN Position: [facility] RN Member Role: Primary Care Nurse Name: Yanira Trevizo RN Position: [facility] RN Member Role: Primary Care Nurse Name: Batool Cervantes RN Position: [facility] RN Member Role: Primary Care Nurse Name: Fern Franklin LPN Position: [facility] RN Member Role: Primary Care Nurse Name: Vasyl Catherine RN Position: [facility] RN Member Role: Primary Care Nurse Name: Eve Masters RN Position: [facility] RN Member Role: Primary Care Nurse Name: Elizabeth Barrios RN Position: [facility] RN Member Role: Primary Care Nurse Name: Jignesh Stoner RN Position: [facility] RN Member Role: Primary Care Nurse Name: Rosy Arriaza RN Position: [facility] RN Member Role: Primary Care Nurse Name: Cherise Hamm MD Position: [facility] Outreach Member Role: PCP Address: Address: [address] [place] [id number] Name: John Guaman RN Position: [facility] RN Member Role: Primary Care Nurse Name: Rocio Andrade RN Position: [facility] RN Member Role: Primary Care Nurse Care Team Related Persons Name: KIA STEPHANI Address: [address] [address] Name: PREMA, NATHEN
--- OUTSIDE RECORDS SUMMARY | 2024-03-16 18:13 | XMS_ITS | Continuity of Care Document ---
Author Organization [facility] ter Address [address] [place] [id number]- Care Team Providers Care Wet Pan Mixer Name Role Phone Hansel GONZALEZ, Cherise Bolden Primary Care Physician [phone] Encounter [facility] Date(s): 02/05/24 - 02/07/[address] [address]- Encounter Diagnosis Bedbound(Final) - 02/07/24 Discharge Disposition: A-Transfer SNF Attending Physician: Lupillo Carroll MD Admitting Physician: Lupillo Carroll MD Referring Physician: Not on Staff, Referring [...] 2 Refills, Maintenance, 01/08/23 12:40:00 EDT, Solution, [facility]/pharmacy #[id number], ICD 10 - J45.901, 16... Start Date: 01/08/23 Status: Ordered albuterol-ipratropium 3 mg-0.5 mg/3 ml inhalation solution 3 mL, Neb, 3 times a day, Maintenance, 02/06/24 10:17:00 EDT, Partial fill upon patient request if the prescription is for a schedule II opioid drug. Start Date: 02/06/24 Status: Ordered Aspirin Low Dose 81 mg [...] 3 Refills, Maintenance, 11/01/22 11:09:00 EDT, Powder, [facility]/pharmacy #[id number], Partial fill upon patient [...] opioid drug. Start Date: 03/16/22 Status: Ordered Flonase Allergy Relief 50 mcg/inh nasal spray 1 sprays = 50 mcg, Nares, Both, 2 times a day, Maintenance, 02/06/24 10:16:00 EDT, Partial fill upon patient request if the prescription is for a schedule II opioid drug. Start Date: 02/06/24 Status: Ordered gabapentin 300 mg oral capsule 300 mg, Capsule, By Mouth, 02/07/24 9:00:00 EDT Start Date: 02/07/24 Stop Date: 02/07/24 Status: Completed gabapentin 300 mg oral capsule 300 mg, 1, capsule, By Mouth, 3 times a day, Refills 0, Maintenance, 03/16/22 1:19:00 EDT, Partial fill upon patient request if the prescription is for a schedule II opioid drug. Start Date: 03/16/22 Status: Ordered Humalog Kwik Pen 100 units/mL subcutaneous injection 4-22 units, Subcutaneous Injection, 3 times a day before meals, As directed per sliding scale, 0 Refills, Maintenance, 03/29/22 19:44:00 EDT, Partial fill upon patient request if the prescription is for a schedule II opioid drug. Start Date: 03/29/22 Status: Ordered Klor-Con 20 mEq oral powder for reconstitution 2 each = 40 mEq, By Mouth, Every 72 hours, Maintenance, 02/06/24 10:12:00 EDT, Partial fill upon patient request if the prescription is for a schedule II opioid drug. Start Date: 02/06/24 Status: Ordered Lantus Solostar Pen 100 units/mL subcutaneous solution = 70 units, Subcutaneous Injection, Daily Start Date: 12/12/22 Status: Ordered Lasix 80 [...] oral tablet 5 mg, Tablet, By Mouth, 02/07/24 9:00:00 EDT Start Date: 02/07/24 Stop Date: 02/07/24 Status: Completed losartan 25 mg oral tablet 25 mg, 1, tablet, By Mouth, Daily, Maintenance, 02/06/24 10:11:00 EDT, Partial fill upon patient request if the prescription is for a schedule II opioid drug. Start Date: 02/06/24 Status: Ordered metFORMIN 850 mg oral tablet 1 tablet = 850 mg, By Mouth, Daily in AM, 0 Refills, Maintenance, 03/16/22 1:18:00 EDT, Tablet, Partial fill upon patient request if the prescription is for a schedule II opioid drug. Start Date: 03/16/22 Status: Ordered Metoprolol XL Tablet 50 mg, XL Tablet, By Mouth, 02/07/24 9:00:00 EDT Start Date: 02/07/24 Stop Date: 02/07/24 Status: Completed Nystop [id number] u/gm powder 1 applicator, Topically, 2 times a day, PRN Rash, Maintenance, 02/06/24 10:17:00 EDT, Partial fill upon [...] opioid drug. Start Date: 02/06/24 Status: Ordered simvastatin 40 mg oral tablet [...] 11:29:00 EDT, Route to Pharmacy Electronically, [facility]/pharmacy #[id number], Partial fill upon patient request if the prescription is for a schedule II opioi... Start Date: 11/01/22 Status: Ordered Toprol XL 50 mg oral tablet, extended release 50 mg, 1, tablet, By Mouth, Daily, Maintenance, 02/06/24 10:05:00 EDT, Partial fill upon patient request if the prescription is for a schedule II opioid drug. Start Date: 02/06/24 Status: Ordered Trulicity Pen 0.75 mg/0.5 mL subcutaneous solution 0.5 mL = 0.75 mg, Subcutaneous Injection, Every week, 0 Refills, Maintenance, 10/26/22 20:09:00 EDT, Solution, Partial fill upon patient request if the prescription is for a schedule II opioid drug. Start Date: 10/26/22 Status: Ordered Ventolin 90 mcg Inhaler 2, puffs, Inhalation, Every 6 hours, PRN, Maintenance, 02/06/24 10:02:00 EDT Start Date: 02/06/24 Status: Ordered Vitamin D2 50,000 intl units (1.25 mg) oral capsule 1 capsule = 50,000 International_Units, By Mouth, Every 7 days, 0 Refills, Maintenance, 03/29/22 19:45:00 EDT, Partial fill upon patient request if the prescription is for a schedule II opioid drug. Start Date: 03/29/22 Status: Ordered Problem List Condition Confirmation Course Effective Dates Status H ealt Status Informant Afib Confirmed Active Cataract Confirmed [...] Exam Date Time Procedure Performing Provider Status 02/05/24 11:14 AM Chest 2 Views Frontal and Lat Zhane Obregon; Auth (Verified) Notes: (Chest 2 Views Frontal and Lat) Reason For Exam: Shortness of Breath RESULT: Chest 2 Views Frontal and Lat Chest 2 Views Frontal and Lat INDICATION/CLINICAL QUESTION: Hx of Present Illness: numbness tingling to arms legs; Reason: Shortness of Breath; Clinical Question(s): CHF / CHF TECHNIQUE: Frontal and lateral views of the chest. COMPARISON: None.. FINDINGS: LINES AND TUBES: None. LUNGS AND PLEURA: The lungs appear clear on the AP view. On the lateral view, interpretation of the lower chest is limited by some obliquity of positioning.There is suggestion of some increased density at one of the lung bases. No effusion. HEART, MEDIASTINUM AND LOIDA: The heart is of normal size. The mediastinum and loida are normal. BONES AND SOFT TISSUES: No acute bony abnormality. IMPRESSION: 1. No abnormality seen on AP view. 2. The lateral view is limited in quality in that it is slightly obliqued. Some increased density posteriorly at the lung bases is appreciated. This may simply be due to to positioning, but parenchymal disease in the lung bases cannot be excluded on this exam. A simple method further assessment would be a repeat lateral view in optimal positioning. No effusion. WSN: [id number] Ordering Physician: Patricio Lassiter Dictated By: Bruno Tenorio MD Dictated Date/Time: 02/05/24 11:19 a Reviewed By: Bruno Tenorio MD Signed By: Bruno Tenorio MD Signed Date/Time: 02/05/24 11:19 am Transcribed By: SOLOMON Transcribed Date/Time: 02/05/24 11:16 am Vital Signs Most recent to oldest [Reference Range]: 1 2 3 Height 167 cm (02/07/24 6:13 AM) 167 cm (02/07/24 2:14 AM) 167 cm (02/06/24 1:29 PM) Weight 122.7 kg (02/07/24 6:13 AM) 122.7 kg (02/07/24 2:14 AM) 122.7 kg (02/06/24 1:29 PM) Oxygen Saturation [94-100 %] 94 % (02/07/24 12:42 PM) 100 % (02/07/24 9:07 AM) 100 % (02/07/24 9:06 AM) Pulse Rate [55-90 bpm] 79 bpm (02/07/24 12:42 PM) 66 bpm (02/07/24 9:07 AM) 66 bpm (02/07/24 9:06 AM) Body Mass Index [18.5-24.99 kg/m2] 44 kg/m2 *>HHI* (02/07/24 6:13 AM) 44 kg/m2 *>HHI* (02/07/24 2:14 AM) 44 kg/m2 *>HHI* (02/06/24 1:29 PM) Blood Pressure [90-138/55-84 mm Hg] 123/78mm Hg (02/07/24 12:42 PM) 155/82mm Hg *H* (02/07/24 9:07 AM) 155/82mm Hg *H* (02/07/24 9:06 AM) Respiratory Rate [16-30 br/min] 16 br/min (02/07/24 12:42 PM) 16 br/min (02/07/24 9:07 AM) 16 br/min (02/07/24 9:06 AM) Temperature [96.8-100.4 DegF] 98.4 DegF (02/07/24 2:14 AM) 98.7 DegF (02/06/24 5:46 PM) 98.5 DegF (02/06/24 3:31 PM) Liters per Minute 2 L/min (02/07/24 12:42 PM) 2 L/min (02/07/24 9:07 AM) 2 L/min (02/07/24 9:06 AM) Mode of Delivery (Oxygen) Nasal cannula (02/07/24 12:42 PM) Nasal cannula (02/07/24 9:07 AM) Nasal cannula (02/07/24 9:06 AM) Blood pressure sites Arm, left (02/07/24 12:42 PM) Arm, left (02/07/24 9:07 AM) Arm, left (02/07/24 9:06 AM) Temperature Route Oral (02/07/24 2:14 AM) Oral (02/06/24 5:46 PM) Oral (02/06/24 3:31 PM) Dry Weight 122.7 kg (02/07/24 6:13 AM) 122.7 kg (02/07/24 2:14 AM) 122.7 kg (02/06/24 1:29 PM) Weight Obtained Via Patient/family stated (02/05/24 9:30 AM) Dry Weight Obtained Via Patient/family stated (02/05/24 9:30 AM) Social History Social History Type Response Smoking Status Former smoker; Tobac co user in household: No entered on: 01/17/17 Sex EKG study * Event Display: EKG Authored Date: [id number] * Event Display: EKG Authored Date: * Event Display: ECG 12-Lead Authored Date: Please click on pdf link to open report * Event Display: ECG 12-Lead Authored Date: Ventricular Rate: 64 BPM Atrial Rate: 64 BPM P-R Interval: 208 ms QRS Duration: 102 ms Q-T Interval: 436 ms QTC Calculation(Bazett): 449 ms P Ribera: 57 degrees R Ribera: -10 degrees T Ribera: 58 degrees Normal sinus rhythm Minimal voltage criteria for LVH, may be normal variant ( Daniel product ) 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) Abnormal ECG When compared with ECG of 28-JAN-2024 13:31, Questionable change in initial forces of Septal leads Confirmed by Duc Bishop ([id number]) on 02/05/2024 10:26:40 AM [place]: Duc Bishop Note * Vikki Herzog RN: PERFORM, SIGN, VERIFY Event Display: Case Management Discharge Plan Authored Date: Patient: VIDHYA ADAM Age: 73 years Sex: Female : 1950 Associated Diagnoses: None Author: Vikki Herzog RN Discharge Plan Case Management Discharge Plan : Case Management Discharge Plan Data 02/07/2024 10:43 EDT Discharge Level of Care at Discharge retirement facility Discharge Nursing Homes/Rehab Facilities [facility] Discharge Transportation Arranged [facility] [phone] Discharge Arranged Transport Date/Time 02/07/2024 12:30 Mode of Transportation Arranged Ambulance Name of Agency #1 [facility] Service Comments #1 you are going to [facility] until your thi lift is fixed 02/06/2024 16:12 EDT Discharge Level of Care at Discharge retirement facility Discharge Nursing Homes/Rehab Facilities [facility] Name of Agency #1 [facility] Service Comments #1 You are being discharged from the ED to [facility] for snf careuntil your Hti Lift is fixed at home Patient Care team information Care Team Personnel Name: Veena DOMTala Position: [facility] RN Member Role: Primary Care Nurse Name: Tk Iqbal RN Position: [facility] SN RN Member Role: Primary Care Nurse Name: Jovanny Stuart RN Position: [facility] RN Member Role: Primary Care Nurse Name: Delaney De Los Santos RN Position: [facility] SN RN Member Role: Primary Care Nurse Name: Batool Sweet RN Position: [facility] RN Member Role: Primary Care Nurse Name: Michelle Ricketts RN Position: [facility] RN Member Role: Primary Care Nurse Name: Lainey Walker LPN Position: [facility] RN Member Role: Primary Care Nurse Name: Yanira Trevizo RN Position: [facility] RN Member Role: Primary Care Nurse Name: Batool Cervantes RN Position: [facility] RN Member Role: Primary Care Nurse Name: Fern Franklin LPN Position: [facility] RN Member Role: Primary Care Nurse Name: Vasyl Catherine RN Position: [facility] RN Member Role: Primary Care Nurse Name: Eve Masters RN Position: [facility] RN Member [...] [facility] Outreach Member Role: PCP Address: Address: [address] [place] [id number] Name: John Guaman RN Position: [facility] RN Member Role: Primary Care Nurse Name: Rocio Andrade RN Position: [facility] RN Member Role: Primary Care Nurse Care Team Related Persons Name: KIA STEPHANI Address: [address] [address] Name: NATHEN LLOYD
[2024-03-16 18:14] VITALS: BP 148/73; PULSE 74; RESP 18; TEMP 36.9; O2SAT 99
--- NOTE | 2024-03-16 18:14 | PC.NURSE ---
Patient arrived from home with complaints that prior to being discharged from SNF her rai became partially dislodged. Arrived with 26f 30cc rai in place with small amount of urine in rai bag. Rai removed and replaced with patients home 26fr 30cc catheter she brought with her.Initial insertion met with resistance however was able to be passed into bladder with inital scant amount of urine output.
--- NOTE | 2024-03-16 18:36 | ED_ITS ---
HPI - Female Genitourinary General Chief complaint: Urogenital-Female Stated complaint: Replacement of rai catheter, from rehab Time Seen by Provider: 03/16/24 17:34 Source: patient, RN notes reviewed and old records reviewed Mode of arrival: EMS Limitations: no limitations History of Present Illness ED Provider: Dee HERRMANN Narrative: 73-year-old female with past medical history significant for congestive heart failure, atrial fibrillation on Eliquis, COPD on chronic 2 L supplemental oxygen, diabetes, neurogenic bladder with chronic Rai, morbid obesity, hypertension presents for evaluation of ?my Rai is not working. ? Patient reports that she has been home for the last 2 days after spending a month at [facility] with pneumonia and then an additional month at rehab She feels as though her visiting nurse accidentally pulled her Rai catheter out earlier today. She reports pelvic discomfort and the catheter has not been draining She was requesting a new Rai catheter to be placed. She denies any fevers, chills. She follows with [facility] Urology Related Data Home Medications ?Medication ?Instructions ?Recorded ?Confirmed albuterol sulfate 90 mcg/actuation 2 puff inhalation Q4-6H PRN 01/23/21 10/26/23 aerosol inhaler (Proventil HFA) Wheezing apixaban 5 mg tablet (Eliquis) 5 mg PO BID 01/23/21 01/08/24 aspirin 81 mg tablet,delayed 81 mg PO DAILY 10/24/21 01/08/24 release insulin glargine 100 unit/mL (3 70 unit subcut DAILY 10/24/21 01/08/24 mL) subcutaneous pen (Lantus Solostar U-100 Insulin) furosemide 40 mg tablet 80 mg PO DAILY 03/09/22 01/08/24 dulaglutide 0.75 mg/0.5 mL 0.75 mg subcut TU 10/23/22 10/26/23 subcutaneous pen injector (Trulicity) insulin lispro 100 unit/mL 1 sliding scale dose subcut QIDACHS 10/23/22 01/08/24 subcutaneous pen (Humalog KwikPen (U-100) Insulin) acetaminophen 325 mg tablet 650 mg PO Q6H PRN Pain 01/27/23 01/08/24 ergocalciferol (vitamin D2) 1,250 1,250 mcg PO TH 01/27/23 01/08/24 mcg (50,000 unit) capsule fluticasone furoate 200 1 ea inhalation DAILY 01/27/23 10/26/23 mcg-vilanterol 25 mcg/dose inhalation powder (Breo Ellipta) gabapentin 300 mg capsule 300 mg PO BID 01/27/23 01/08/24 montelukast 10 mg tablet 10 mg PO BEDTIME 01/27/23 01/08/24 oxybutynin chloride 5 mg 5 mg PO BEDTIME 01/27/23 01/08/24 tablet,extended release 24 hr losartan 25 mg tablet 25 mg PO DAILY 10/26/23 01/08/24 metoprolol succinate 50 mg 50 mg PO DAILY 10/26/23 01/08/24 tablet,extended release 24 hr lisinopril 5 mg tablet 5 mg PO DAILY 12/01/23 01/08/24 Previous Rx's ?Medication ?Instructions ?Recorded albuterol sulfate 2.5 mg/3 mL 2.5 mg (3 mL) inhalation Q4-6H PRN 07/25/22 (0.083 %) solution for nebulization shortness of breath or wheezing #75 mL albuterol sulfate 90 mcg/actuation 2 puff inhalation Q6H PRN 10/26/23 aerosol inhaler shortness of breath or wheezing #8.5 grams doxycycline hyclate 100 mg tablet 100 mg PO BID #14 tabs 10/26/23 guaifenesin 200 mg/5 mL oral liquid 200 mg (5 mL) PO Q4H PRN cough 10/26/23 #118 mL prednisone 20 mg tablet 20 mg PO BID #10 tabs 10/26/23 Allergies Allergy/AdvReac Type Severity Reaction Status Date / Time silver sulfadiazine Allergy Unknown UNK Verified 03/16/24 18:01 [From TRINY] Review of Systems Constitutional: Constitutional: Denies body ache(s), Denies chills, Denies fever(s) and Denies frequent falls Eyes: Eyes: Denies blurry vision Cardiovascular: Cardiovascular: Denies chest pain and Denies dyspnea Respiratory: Respiratory: Denies cough and Denies dyspnea Gastrointestinal: Gastrointestinal: Reports abdominal pain, Denies nausea and Denies vomiting Musculoskeletal: Musculoskeletal: Denies back pain Integumentary/Breasts: Skin/Breast: Denies rash Neurologic: Denies frequent falls Psychiatric: Psychiatric: Denies anxiety [facility] Past Medical History Medical History Chronic hypoxemic respiratory failure Obstructive sleep apnea Hypotonic neurogenic bladder Chronic heart failure with preserved ejection fraction (HFpEF) Diarrhea Bacteriuria Chronic UTI UTI (urinary tract infection) Non-rheumatic aortic stenosis Aortic stenosis Paroxysmal atrial fibrillation H/O: CVA (cerebrovascular accident) Glaucoma Severe sepsis Obesity Osteoarthritis COPD (chronic obstructive pulmonary disease) Chronic UTI Chronic indwelling Rai catheter Diabetes Hypertension Congestive heart failure Surgical History H/O enucleation of left eyeball H/O adenoidectomy History of tonsillectomy Family History Family History Father No problems noted. Mother No problems noted. Social History Social History Household Members: None Housing: Apartment Do you presently have visiting nurse or other home services: Yes (care givers) Unable to assess alcohol history related to: Unknown Alcohol intake: former Patient Tobacco Use Status: Never used Tobacco Smoked in Last 30 Days: No Second Hand Smoke Exposure: No Use of substances other than those prescribed or required for medical reasons: No Advance Directives: Yes Advance Directives on File: Yes Advance Directives Date on File: 07/09/20 Do you have a plan to hurt others: No Plan service: No Current occupational status: disabled Physical Exam Vital Signs: Vital Signs: Last Vital Signs Temp 97.6 F 03/16/24 19:44 Pulse 72 03/16/24 19:44 Resp 17 03/16/24 19:44 BP 155/53 H 03/16/24 19:44 Pulse Ox 100 03/16/24 19:44 O2 Del Method Nasal Cannula 03/16/24 19:44 O2 Flow Rate 2 03/16/24 19:44 BMI result Body Mass Index 43.3 Const: General: healthy appearing, comfortable, no acute distress, alert and awake Nutritional Appearance: well nourished Orientation/consciousness: patient oriented x3 HEENT: Head: Yes normocephalic and Yes atraumatic Eyes: Eyelids: Yes eyelids normal Conjunctivae: conjunctivae normal Sclerae: sclerae normal Corneas: corneas normal Pupils: Equal, round and reactive pupils present EOM: EOMs intact bilaterally Neck: Neck: Yes full ROM Resp: Effort & Inspection: normal respiratory effort, able to speak in complete sentences and not labored Skin: General skin exam: elasticity normal Neuro: General: patient oriented x3 Cranial nerves: Yes Equal, round and reactive pupils present and Yes Bilaterally intact EOM present Cognition (Neuro): normal cognition Medical Decision Making Medical Decision Making MDM Narrative: 73-year-old female with past medical history as documented above presents for evaluation of her Rai catheter not worsening. Attempted to bladder scan the patient, however due to body habitus we could not get an accurate reading. Given the patient's catheter was not draining, this was removed and a new catheter was inserted. This appeared to drain well. There did not appear to be any signs of urinary tract infection. She did have some blood noted in the urinalysis which is likely due to the trauma of put him in a Rai in. No bacteria was seen and no nitrites were seen. Differential Diagnosis Differential Diagnoses: The differential diagnosis associated with the presentation includes Neurogenic bladder Rai catheter insertion UTI Chronic Rai placement Lab Data Labs: Lab Results 03/16/24 Range/Units 18:33 Urine Color Yellow Urine Appearance Clear Urine pH 6.0 (5.0-9.0) Ur Specific [place] 1.025 (1.005-1.025) Urine Protein 300 (3+) H (Neg-Trace) mg/dL Urine Glucose (UA) Negative (Negative) mg/dL Urine Ketones Trace (Negative) mg/dL Urine Blood Large (3+) H (Negative) Urine Nitrite Negative (Negative) Ur Leukocyte Esterase Moderate (2+) H (Negative) Urine RBC >20 H (0-2) /HPF Urine WBC 21-50 H (0-5) /HPF Ur Squamous Epith Cells 0-2 (0-2) /HPF Urine Bacteria None Seen (None Seen) Hyaline Casts 3-5 (0-2) /LPF Discharge Plan Discharge Clinical Impression: Malfunction of Rai catheter, Neurogenic bladder Patient Disposition: Home, Self-Care Instructions: Chronic Urinary Retention in Women (ED) Additional Instructions: Your Rai catheter was replaced today. It appears to be functioning well. You do not appear to have a urinary tract infection Follow-up with your primary doctor, return for new or worsening symptoms Prescriptions: No Action albuterol sulfate [Proventil HFA] 90 mcg/actuation HFA aerosol inhaler 2 puff inhalation Q4-6H PRN (Reason: Wheezing) Eliquis 5 mg tablet 5 mg PO BID albuterol sulfate 2.5 mg /3 mL (0.083 %) solution for nebulization 2.5 mg inhalation Q4-6H PRN (Reason: shortness of breath or wheezing) Qty: 75 0RF insulin glargine [Lantus Solostar U-100 Insulin] 100 unit/mL (3 mL) insulin pen 70 unit subcut DAILY aspirin 81 mg Tablet,Delayed Release (Dr/Ec) 81 mg PO DAILY furosemide 40 mg tablet 80 mg PO DAILY insulin lispro [Humalog KwikPen Insulin] 100 unit/mL insulin pen 1 sliding scale dose subcut QIDACHS Protocol: Insulin Correction Scale Less than or equal to 110 ---- Give (units): 0 111 to 150 Give (units): 0 151 to 200 Give (units): 2 201 to 250 Give (units): 4 251 to 300 Give (units): 6 301 to 350 Give (units): 8 Greater than 350 Give (units): 10 Call MD if Blood Glucose > : 350 Trulicity 0.75 mg/0.5 mL pen injector 0.75 mg subcut TU Patient Comments: per pt's daughter Stefany acetaminophen 325 mg tablet 650 mg PO Q6H PRN (Reason: Pain) oxybutynin chloride 5 mg tablet extended release 24hr 5 mg PO BEDTIME gabapentin 300 mg capsule 300 mg PO BID montelukast 10 mg tablet 10 mg PO BEDTIME ergocalciferol (vitamin D2) 1,250 mcg (50,000 unit) capsule 1,250 mcg PO TH fluticasone furoate-vilanterol [Breo Ellipta] 200-25 mcg/dose blister with device 1 ea INHALATION DAILY albuterol sulfate 90 mcg/actuation HFA aerosol inhaler 2 puff inhalation Q6H PRN (Reason: shortness of breath or wheezing) Qty: 8.5 0RF prednisone 20 mg tablet 20 mg PO BID Qty: 10 0RF Patient Comments: patient's daughter states patient does not take doxycycline hyclate 100 mg tablet 100 mg PO BID Qty: 14 0RF Patient Comments: patient's daughter states patient does not take guaifenesin 200 mg/5 mL liquid 200 mg PO Q4H PRN (Reason: cough) Qty: 118 0RF Patient Comments: patient's daughter states patient does not take metoprolol succinate 50 mg tablet extended release 24 hr 50 mg PO DAILY losartan 25 mg tablet 25 mg PO DAILY lisinopril 5 mg tablet 5 mg PO DAILY Interventions: ED Discharge Assessment Last Done: 03/16/24 19:44 Discharge Date/Time: 03/16/24 19:54 Print Language: Sinhala
[2024-03-16 18:40] LABS: Appearance Urine Clear; Color Urine Yellow; Glucose Urine UA Negative (Negative); Leukocyte Esterase Urine Moderate (2+) (Negative); Nitrite Urine Negative (Negative); Specific Gravity - Urine 1.025 (1.005-1.025); UMIC TRIGGER UACC YES; Urine Blood Large (3+) (Negative); Urine Ketones Trace mg/dL (Negative); Urine Protein 300 (3+) mg/dL (Neg-Trace)
[2024-03-16 18:45] LABS: Bacteria Urine None Seen (None Seen); RBC Urine >20 /HPF (0-2); Squamous Epithelial Cell Urine 0-2 /HPF (0-2); UACC Culture Trigger YES; WBC Urine 21-50 /HPF (0-5)
--- NOTE | 2024-03-16 18:59 | PC.NURSE ---
Report received from Abby FARNSWORTH, assume care of pt at this time
[2024-03-16 19:37] VITALS: BP 155/53; PULSE 72; RESP 17; TEMP 36.4; O2SAT 100
[2024-03-16 19:44] VITALS: BP 155/53; PULSE 72; RESP 17; TEMP 36.4; O2SAT 100
== END 2024-03-16 19:54 | disposition home or self-care (01) ==
PROVIDERS: Physician Assistant; Emergency Provider Emergency Medicine; PCP Family Medicine
DX: T83.098A Other mechanical complication of other urinary catheter, initial encounter (principal); Y73.8 Miscellaneous gastroenterology and urology devices associated with adverse incidents, not elsewhere classified; Y92.009 Unspecified place in unspecified non-institutional (private) residence as the place of occurrence of the external cause; R10.2 Pelvic and perineal pain; E11.9 Type 2 diabetes mellitus without complications; I11.0 Hypertensive heart disease with heart failure; I50.9 Heart failure, unspecified; I48.0 Paroxysmal atrial fibrillation; Z86.73 Personal history of transient ischemic attack (TIA), and cerebral infarction without residual deficits; Z79.4 Long term (current) use of insulin; Z79.85 Long-term (current) use of injectable non-insulin antidiabetic drugs; Z79.01 Long term (current) use of anticoagulants; Z79.899 Other long term (current) drug therapy
CPT/HCPCS: 51702; 81001; 87086; 99284

== ENCOUNTER 2024-03-24 23:45 | Emergency (ER) | payer MEDICARE, MEDICAID, SELFPAY ==
[2024-03-24 23:54] VITALS: BP 144/92; PULSE 72; O2SAT 97
--- NOTE | 2024-03-25 00:12 | ED.ABDPAIN ---
HPI - Abdominal Pain General Chief Complaint: Urogenital-Female Stated Complaint: abd pain Time Seen by Provider: 03/25/24 00:08 Source: patient Mode of arrival: EMS Limitations: no limitations History of Present Illness ED Provider: mirlande HERRMANN narrative: Patient with chronic indwelling Molina catheter was replaced 3 days ago by the visiting nurse patient is thin that when she removed the catheter she injured her urethra. New catheter was placed now patient is complaining of leakage around the catheter patient was seen at [facility] 2 days ago and catheter was in place so not changed patient complaining of leaking urine around the catheter and discomfort in that area no nausea no vomiting no fever no chills Related Data Home Medications ?Medication ?Instructions ?Recorded ?Confirmed albuterol sulfate 90 mcg/actuation 2 puff inhalation Q4-6H PRN 01/23/21 10/26/23 aerosol inhaler (Proventil HFA) Wheezing apixaban 5 mg tablet (Eliquis) 5 mg PO BID 01/23/21 01/08/24 aspirin 81 mg tablet,delayed 81 mg PO DAILY 10/24/21 01/08/24 release insulin glargine 100 unit/mL (3 70 unit subcut DAILY 10/24/21 01/08/24 mL) subcutaneous pen (Lantus Solostar U-100 Insulin) furosemide 40 mg tablet 80 mg PO DAILY 03/09/22 01/08/24 dulaglutide 0.75 mg/0.5 mL 0.75 mg subcut TU 10/23/22 10/26/23 subcutaneous pen injector (Trulicity) insulin lispro 100 unit/mL 1 sliding scale dose subcut QIDACHS 10/23/22 01/08/24 subcutaneous pen (Humalog KwikPen (U-100) Insulin) acetaminophen 325 mg tablet 650 mg PO Q6H PRN Pain 01/27/23 01/08/24 ergocalciferol (vitamin D2) 1,250 1,250 mcg PO TH 01/27/23 01/08/24 mcg (50,000 unit) capsule fluticasone furoate 200 1 ea inhalation DAILY 01/27/23 10/26/23 mcg-vilanterol 25 mcg/dose inhalation powder (Breo Ellipta) gabapentin 300 mg capsule 300 mg PO BID 01/27/23 01/08/24 montelukast 10 mg tablet 10 mg PO BEDTIME 01/27/23 01/08/24 oxybutynin chloride 5 mg 5 mg PO BEDTIME 01/27/23 01/08/24 tablet,extended release 24 hr losartan 25 mg tablet 25 mg PO DAILY 10/26/23 01/08/24 metoprolol succinate 50 mg 50 mg PO DAILY 10/26/23 01/08/24 tablet,extended release 24 hr lisinopril 5 mg tablet 5 mg PO DAILY 12/01/23 01/08/24 Previous Rx's ?Medication ?Instructions ?Recorded albuterol sulfate 2.5 mg/3 mL 2.5 mg (3 mL) inhalation Q4-6H PRN 07/25/22 (0.083 %) solution for nebulization shortness of breath or wheezing #75 mL albuterol sulfate 90 mcg/actuation 2 puff inhalation Q6H PRN 10/26/23 aerosol inhaler shortness of breath or wheezing #8.5 grams doxycycline hyclate 100 mg tablet 100 mg PO BID #14 tabs 10/26/23 guaifenesin 200 mg/5 mL oral liquid 200 mg (5 mL) PO Q4H PRN cough 10/26/23 #118 mL prednisone 20 mg tablet 20 mg PO BID #10 tabs 10/26/23 Allergies Allergy/AdvReac Type Severity Reaction Status Date / Time silver sulfadiazine Allergy Unknown UNK Verified 03/25/24 00:16 [From TRINY] Review of Systems Review of Systems Yes all other systems are reviewed and are negative PMFSH Past Medical History Medical History Chronic hypoxemic respiratory failure Obstructive sleep apnea Hypotonic neurogenic bladder Chronic heart failure with preserved ejection fraction (HFpEF) Diarrhea Bacteriuria Chronic UTI UTI (urinary tract infection) Non-rheumatic aortic stenosis Aortic stenosis Paroxysmal atrial fibrillation H/O: CVA (cerebrovascular accident) Glaucoma Severe sepsis Obesity Osteoarthritis COPD (chronic obstructive pulmonary disease) Chronic UTI Chronic indwelling Molina catheter Diabetes Hypertension Congestive heart failure Surgical History H/O enucleation of left eyeball H/O adenoidectomy History of tonsillectomy Family History Family History Father No problems noted. Mother No problems noted. Social History Social History Household Members: None Housing: Apartment Do you presently have visiting nurse or other home services: Yes (care givers) Unable to assess alcohol history related to: Unknown Alcohol intake: former Patient Tobacco Use Status: Never used Tobacco Second Hand Smoke Exposure: No Advance Directives: Yes Advance Directives on File: Yes Advance Directives Date on File: 07/09/20 service: No Current occupational status: disabled Physical Exam ED Vital Signs: Vital Signs - 24 hr 03/25/24 00:15 03/25/24 02:04 03/25/24 04:07 Temperature 98.0 F 98.1 F Pulse Rate 76 72 76 Respiratory Rate 20 16 16 Blood Pressure 136/46 L 134/59 L 136/52 L Pulse Oximetry 95 96 98 Oxygen Delivery Method Nasal Cannula Room Air Room Air BMI result Body Mass Index 44.6 Appearance: Alert. Oriented X3. No acute distress. Eyes: No pallor artificial left eye ENT: Pharynx normal. Oral Mucosa moist Neck: Normal inspection. Neck supple. CVS: Normal heart rate and rhythm. Pulses normal. Respiratory: No respiratory distress. Equal air entry bilateral, Abdomen: Soft and nontender. Bowel sounds are present, no mass palpable, no CVA tenderness Skin: Skin warm and dry. Normal skin color. Normal skin turgor. Extremities: 2+ lower extremity edema. No calf tenderness Neuro: Oriented X 3. No motor deficit. No sensory deficit.No cerebellar signs , cranial nerves II-XII intact Medical Decision Making Medical Decision Making 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 Lab Attestation statement: I reviewed the patient's lab results. Labs: Lab Results 03/25/24 Range/Units 04:23 Urine Color Marlin A Urine Appearance Turbid Urine pH 5.5 (5.0-9.0) Ur Specific [place] 1.015 (1.005-1.025) Urine Protein 300 (3+) H (Neg-Trace) mg/dL Urine Glucose (UA) 250 H (Negative) mg/dL Urine Ketones Trace (Negative) mg/dL Urine Blood Large (3+) H (Negative) Urine Nitrite Positive H (Negative) Ur Leukocyte Esterase Large (3+) H (Negative) Urine RBC >20 H (0-2) /HPF Urine WBC >50 H (0-5) /HPF Ur Squamous Epith Cells 3-5 (0-2) /HPF Urine Bacteria 4+ (None Seen) Hyaline Casts 3-5 (0-2) /LPF Discharge Plan Discharge Clinical Impression: Chronic indwelling Molina catheter Patient Disposition: Home, Self-Care Instructions: Molina Catheter Placement and Care (ED) Additional Instructions: Care and cautions as advised Molina catheter care Prescriptions: No Action albuterol sulfate [Proventil HFA] 90 mcg/actuation HFA aerosol inhaler 2 puff inhalation Q4-6H PRN (Reason: Wheezing) Eliquis 5 mg tablet 5 mg PO BID albuterol sulfate 2.5 mg /3 mL (0.083 %) solution for nebulization 2.5 mg inhalation Q4-6H PRN (Reason: shortness of breath or wheezing) Qty: 75 0RF insulin glargine [Lantus Solostar U-100 Insulin] 100 unit/mL (3 mL) insulin pen 70 unit subcut DAILY aspirin 81 mg Tablet,Delayed Release (Dr/Ec) 81 mg PO DAILY furosemide 40 mg tablet 80 mg PO DAILY insulin lispro [Humalog KwikPen Insulin] 100 unit/mL insulin pen 1 sliding scale dose subcut QIDACHS Protocol: Insulin Correction Scale Less than or equal to 110 ---- Give (units): 0 111 to 150 Give (units): 0 151 to 200 Give (units): 2 201 to 250 Give (units): 4 251 to 300 Give (units): 6 301 to 350 Give (units): 8 Greater than 350 Give (units): 10 Call MD if Blood Glucose > : 350 Trulicity 0.75 mg/0.5 mL pen injector 0.75 mg subcut TU Patient Comments: per pt's daughter Stefany acetaminophen 325 mg tablet 650 mg PO Q6H PRN (Reason: Pain) oxybutynin chloride 5 mg tablet extended release 24hr 5 mg PO BEDTIME gabapentin 300 mg capsule 300 mg PO BID montelukast 10 mg tablet 10 mg PO BEDTIME ergocalciferol (vitamin D2) 1,250 mcg (50,000 unit) capsule 1,250 mcg PO TH fluticasone furoate-vilanterol [Breo Ellipta] 200-25 mcg/dose blister with device 1 ea INHALATION DAILY albuterol sulfate 90 mcg/actuation HFA aerosol inhaler 2 puff inhalation Q6H PRN (Reason: shortness of breath or wheezing) Qty: 8.5 0RF prednisone 20 mg tablet 20 mg PO BID Qty: 10 0RF Patient Comments: patient's daughter states patient does not take doxycycline hyclate 100 mg tablet 100 mg PO BID Qty: 14 0RF Patient Comments: patient's daughter states patient does not take guaifenesin 200 mg/5 mL liquid 200 mg PO Q4H PRN (Reason: cough) Qty: 118 0RF Patient Comments: patient's daughter states patient does not take metoprolol succinate 50 mg tablet extended release 24 hr 50 mg PO DAILY losartan 25 mg tablet 25 mg PO DAILY lisinopril 5 mg tablet 5 mg PO DAILY Print Language: Chadian
[2024-03-25 00:15] VITALS: BP 136/46; PULSE 76; RESP 20; TEMP 36.7; O2SAT 95; BMI 44.6
--- OUTSIDE RECORDS SUMMARY | 2024-03-25 01:33 | XMS_ITS | Continuity of Care Document ---
Author Organization [facility] ter Address [address] [place] [id number]- Care Team Providers Care Nut Chopper Name Role Phone Cherise Hamm MD Primary Care Physician Encounter [facility] Date(s): 03/22/24 - 03/23/[address] [address]- Encounter Diagnosis Chronic diastolic congestive heart failure(Final) - 03/23/24 Discharge Disposition: A-D/C Home Attending Physician: Conrado Whitten MD Admitting Physician: Conrado Whitten MD Referring Physician: Not on Staff, Referring [...] 0 Refills, Maintenance, 02/20/24 12:24:00 EDT, Powder, [facility]/pharmacy #[id number], Partial fill upon patient request [...] 3 Refills, Maintenance, 11/01/22 11:09:00 EDT, Powder, [facility]/pharmacy #[id number], Partial fill upon patient request [...] drug. Start Date: 02/11/24 Status: Ordered Nystop 331285 u/gm powder 1 applicator, Topically, 2 times [...] patient request... Start Date: 02/22/24 Status: Ordered Pyridium 100 mg oral tablet 1 tablet = 100 mg, By Mouth, 3 times a day, for 3 days, # 9 tablet, 0 Refills, Acute 03/26/24 4:04:00 EDT, 03/23/24 4:04:00 EDT, Tablet, [facility]/pharmacy #[id number], Partial fill upon patient request if the prescription is for a schedule II opioid drug., 163,... Start Date: 03/23/24 Stop Date: 03/26/24 Status: Ordered simvastatin 40 mg oral tablet [...] 11/01/22 11:29:00 EDT, Route to Pharmacy Electronically, [facility]/pharmacy #[id number], Partial fill upon patient request if the [...] Active Severe obesity Confirmed Active Chronic indwelling Molina catheter Confirmed Active 1Problem added by Discern Expert Results Radiology Reports * Exam Date Time Procedure Performing Provider Status 03/22/24 9:40 PM Chest 2 Views Frontal and Lat Jesus Coello; Auth (Verified) Notes: (Chest 2 Views Frontal and Lat) Reason For Exam: Shortness of Breath RESULT: Chest 2 Views Frontal and Lat Chest 2 Views Frontal and Lat Hx of Present Illness: from home, co pain in [place] under breast reports feels like a lala horse ; Reason: Shortness of Breath; Clinical Question(s): CHF COMPARISON: 02/17/2024 FINDINGS: Extremely limited exam. Low lung volumes. Possible findings of prominent ulnar vasculature. No overt edema. IMPRESSION: Prominent pulmonary vasculature. No overt findings of edema. WSN: [id number] Ordering Physician: Caitie Gonzalez Dictated By: Bubba Silveira MD Dictated Date/Time: 03/22/24 10:09 p Reviewed By: Bubba Silveira MD Signed By: Bubba Silveira MD Signed Date/Time: 03/22/24 10:09 pm Transcribed By: SOLOMON Transcribed Date/Time: 03/22/24 10:08 pm Vital Signs Most recent to oldest [Reference Range]: 1 2 3 Oxygen Saturation [94-100 %] 97 % (03/23/24 6:59 AM) 97 % (03/23/24 5:16 AM) 97 % (03/23/24 1:23 AM) Pulse Rate [55-90 bpm] 91 bpm *H* (03/23/24 6:59 AM) 78 bpm (03/23/24 5:16 AM) 77 bpm (03/23/24 1:23 AM) Blood Pressure [90-138/55-84 mm Hg] 142/69mm Hg *H* (03/23/24 6:59 AM) 128/59mm Hg (03/23/24 5:16 AM) 127/55mm Hg (03/23/24 1:23 AM) Respiratory Rate [16-30 br/min] 17 br/min (03/23/24 6:59 AM) 19 br/min (03/23/24 5:16 AM) 24 br/min (03/23/24 1:23 AM) Temperature [96.8-100.4 DegF] 98.1 DegF (03/23/24 1:23 AM) 98.0 DegF (03/22/24 8:24 PM) Liters per Minute 2 L/min (03/23/24 6:59 AM) 2 L/min (03/23/24 5:16 AM) 2 L/min (03/23/24 1:23 AM) Mode of Delivery (Oxygen) Nasal cannula (03/23/24 6:59 AM) Nasal cannula (03/23/24 5:16 AM) Nasal cannula (03/23/24 1:23 AM) Blood pressure sites Arm, left (03/23/24 1:23 AM) Arm, left (03/22/24 9:04 PM) Arm, left (03/22/24 8:24 PM) Temperature Route Oral (03/23/24 1:23 AM) Oral (03/22/24 8:24 PM) Social History Social History Type Response Smoking Status Former smoker; Tobac co user in household: No entered on: 01/17/17 Sex EKG study * Event Display: EKG Authored Date: * Event Display: ECG 12-Lead Authored Date: Please click on pdf link to open report * Event Display: ECG 12-Lead Authored Date: Ventricular Rate: 85 BPM Atrial Rate: 85 BPM P-R Interval: 184 ms QRS Duration: 94 ms Q-T Interval: 366 ms QTC Calculation(Bazett): 435 ms P [place]: 43 degrees R [place]: -12 degrees T [place]: 66 degrees Normal sinus rhythm Minimal voltage criteria for LVH, may be normal variant ( Orestes product ) Nonspecific ST and T wave abnormality Abnormal ECG Confirmed by LOREE ARIAS ([id number]) on 03/23/2024 10:52:47 AM [place]: LOREE ARIAS Patient Care team information Care Team Personnel Name: Esha Whitaker RN Position: S RN Member Role: Primary Care Nurse Name: Tala Curiel LPN Position: S RN Member Role: Primary Care Nurse Name: Tk Iqbal RN Position: [facility] SN RN Member Role: Primary Care Nurse Name: Jovanny Stuart RN Position: S RN Member Role: Primary Care Nurse Name: Delaney De Los Santos RN Position: [facility] SN RN Member Role: Primary Care Nurse Name: Batool Sweet RN Position: S RN Member Role: Primary Care Nurse Name: Michelle Ricketts RN Position: [facility] RN Member Role: Primary Care Nurse Name: Santa Quiñonez RN Position: [facility] RN Member Role: Primary Care Nurse Name: Lainey Walker LPN Position: [facility] RN Member Role: Primary Care Nurse Name: Yanira Trevizo RN Position: [facility] RN Member Role: Primary Care Nurse Name: Batool Cervantes RN Position: [facility] RN Member Role: Primary Care Nurse Name: Fern Franklin LPN Position: [facility] RN Member Role: Primary Care Nurse Name: Vasyl Catherine RN Position: [facility] RN Member Role: Primary Care Nurse Name: Eve Masters RN Position: [facility] RN Member Role: Primary Care Nurse Name: Elizabeth Barrios RN Position: [facility] RN Member Role: Primary Care Nurse Name: Inessa Swan RN Position: [facility] RN Member Role: Primary Care Nurse Name: Jignesh Stoner RN Position: [facility] RN Member Role: Primary Care Nurse Name: Rosy Arriaza RN Position: [facility] RN Member Role: Primary Care Nurse Name: Demetri Watt RN Position: [facility] RN Member Role: Primary Care Nurse Name: Cherise Hamm MD Position: [facility] Outreach Member Role: PCP Address: Address: [address] [place] [address] Name: John Guaman RN Position: [facility] RN Member Role: Primary Care Nurse Name: Rocio Andrade RN Position: [facility] RN Member Role: Primary Care Nurse Care Team Related Persons Name: STEPHANI ADAM Address: [address] [address] Name: NATHEN LLOYD
--- OUTSIDE RECORDS SUMMARY | 2024-03-25 01:34 | XMS_ITS | Continuity of Care Document ---
Author Organization [facility] Address [address] [place] [address]- Care Team Providers Care Parachute Cushion Installer Name Role Phone Cherise Hamm MD Primary Care Physician [phone] Encounter [facility] Date(s): 03/21/24 - 03/22/[address] [address]- Encounter Diagnosis Molina catheter problem(Final) - 03/21/24 Molina catheter problem(Final) - 03/22/24 Discharge Disposition: A-D/C Home Attending Physician: Alin Thomas MD Admitting Physician: Alin Thomas MD Referring Physician: Not on Staff, Referring MD Allergies, Adverse Reactions, Alerts Substance Reaction Severity Status Silvadene skin alicae unsure Active Immunizations Given and Recorded Vaccine [...] 0 Refills, Maintenance, 02/20/24 12:24:00 EDT, Powder, [facility]/pharmacy #[id number], Partial fill upon [...] 3 Refills, Maintenance, 11/01/22 11:09:00 EDT, Powder, [facility]/pharmacy #[id number], Partial fill upon [...] drug. Start Date: 02/11/24 Status: Ordered Nystop 160290 u/gm powder 1 applicator, Topically, 2 times [...] 03/26/24 4:04:00 EDT, 03/23/24 4:04:00 EDT, Tablet, [facility]/pharmacy #[id number], Partial fill upon patient request if the prescription is for a schedule II opioid drug., 163,... Start Date: 03/23/24 Stop Date: 03/26/24 Status: Ordered Pyridium 200 mg oral tablet 1 tablet = 200 mg, By Mouth, 2 times a day, for 2 days, # 4 tablet, 0 Refills, Acute 03/24/24 0:22:00 EDT, 03/22/24 0:22:00 EDT, Tablet, [facility]/pharmacy #[id number], Partial fill upon patient request if the prescription is for a schedule II opioid drug., 163,... Start Date: 03/22/24 Stop Date: 03/24/24 Status: Ordered simvastatin 40 mg oral tablet [...] 11/01/22 11:29:00 EDT, Route to Pharmacy Electronically, [facility]/pharmacy #[id number], Partial fill upon patient request if the [...] opioid drug. Start Date: 02/11/24 Status: Ordered Tylenol 325 mg oral tablet 650 mg, Tablet, By Mouth, Every 4 hours, PRN for Pain , Mild, Routine, 03/21/24 21:02:00 EDT Start Date: 03/21/24 Stop Date: 03/22/24 Status: Discontinued Vitamin D2 50,000 intl units (1.25 mg) [...] oldest [Reference Range]: 1 2 3 Height 163 cm (03/21/24 7:13 PM) Oxygen Saturation [94-100 %] 99 % (03/22/24 3:35 AM) 100 % (03/21/24 11:17 PM) 98 % (03/21/24 9:34 PM) Pulse Rate [55-90 bpm] 76 bpm (03/22/24 3:35 AM) 77 bpm (03/21/24 11:17 PM) 76 bpm (03/21/24 9:34 PM) Blood Pressure [90-138/55-84 mm Hg] 130/71mm Hg (03/22/24 3:35 AM) 138/63mm Hg (03/21/24 11:17 PM) 131/65mm Hg (03/21/24 9:34 PM) Respiratory Rate [16-30 br/min] 15 br/min *L* (03/22/24 8:06 AM) 17 br/min (03/22/24 3:35 AM) 19 br/min (03/21/24 11:17 PM) Temperature [96.8-100.4 DegF] 98.1 DegF (03/21/24 9:34 PM) 98.1 DegF (03/21/24 7:13 PM) Liters per Minute 2 L/min (03/22/24 3:35 AM) 2 L/min (03/21/24 11:17 PM) 2 L/min (03/21/24 9:34 PM) Mode of Delivery (Oxygen) Nasal cannula (03/22/24 3:35 AM) Nasal cannula (03/21/24 11:17 PM) Nasal cannula (03/21/24 9:34 PM) Blood pressure sites Arm, right (03/22/24 3:35 AM) Arm, right (03/21/24 11:17 PM) Arm, right (03/21/24 9:34 PM) Temperature Route Oral (03/21/24 9:34 PM) Oral (03/21/24 7:13 PM) Dry Weight 109 kg (03/21/24 7:13 PM) Dry Weight Obtained Via Patient/family stated (03/21/24 7:13 PM) Social History Social History Type Response Smoking Status Former smoker; Tobac co user in household: No entered on: 01/17/17 Sex EKG study * Event Display: EKG Authored Date: * Event Display: ECG 12-Lead Authored Date: Please click on pdf link to open report * Event Display: ECG 12-Lead Authored Date: Ventricular Rate: 80 BPM Atrial Rate: 80 BPM P-R Interval: 194 ms QRS Duration: 96 ms Q-T Interval: 372 ms QTC Calculation(Bazett): 429 ms P [place]: 57 degrees R [place]: -14 degrees T [place]: 79 degrees Sinus rhythm with marked sinus arrhythmia Moderate voltage criteria for LVH, may be normal variant ( R in aVL , Daniel product ) Septal infarct (cited on or before 17-FEB-2024) Abnormal ECG When compared with ECG of 17-FEB-2024 00:43, No significant change was found Confirmed by VALERY FOWLER MD ([id number]) on 03/22/2024 10:45:04 AM [place]: VALERY FOWLER MD Patient Care team information Care Team Personnel Name: Esha Whitaker RN Position: [facility] RN Member Role: Primary Care Nurse Name: Tala Curiel LPN Position: [facility] RN Member Role: Primary Care Nurse Name: Tk Iqbal RN Position: [facility] SN RN Member Role: Primary Care Nurse Name: Jovanny Stuart RN Position: S RN Member Role: Primary Care Nurse Name: Delaney De Los Santos RN Position: [facility] SN RN Member Role: Primary Care Nurse Name: Batool Sweet RN Position: [facility] RN Member Role: Primary Care Nurse Name: Michelle Ricketts RN Position: [facility] RN Member Role: Primary Care Nurse Name: Santa Quiñonez RN Position: [facility] RN Member Role: Primary Care Nurse Name: Lainey Walker LPN Position: [facility] RN Member Role: Primary Care Nurse Name: Yanira Trevizo RN Position: [facility] RN Member Role: Primary Care Nurse Name: Batool Cervantes RN Position: [facility] RN Member Role: Primary Care Nurse Name: Fern Franklin LPN Position: [facility] RN Member Role: Primary Care Nurse Name: Vasyl Catherine RN Position: [facility] RN Member Role: Primary Care Nurse Name: Eve Masters RN Position: [facility] RN Member Role: Primary Care Nurse Name: Elizabeth Barrios RN Position: [facility] RN Member Role: Primary Care Nurse Name: Inessa Swan RN Position: [facility] RN Member Role: Primary Care Nurse Name: Jignesh Stoner RN Position: [facility] RN Member Role: Primary Care Nurse Name: Rosy Arriaza RN Position: [facility] RN Member Role: Primary Care Nurse Name: Demetri Watt RN Position: [facility] RN Member Role: Primary Care Nurse Name: Cherise Hamm MD Position: [facility] Outreach Member Role: PCP Address: Address: [address] [place] [id number] Name: John Guaman RN Position: [facility] RN Member Role: Primary Care Nurse Name: Rocio Andrade RN Position: [facility] RN Member Role: Primary Care Nurse Care Team Related Persons Name: STEPHANI ADAM Address: [place] [address] [place] [address] Name: NATHEN LLOYD
[2024-03-25 02:04] VITALS: BP 134/59; PULSE 72; RESP 16; O2SAT 96
[2024-03-25 04:07] VITALS: BP 136/52; PULSE 76; RESP 16; TEMP 36.7; O2SAT 98
--- NOTE | 2024-03-25 04:17 | PC.NURSE ---
26fr rai removed, 24fr rai placed, pink tinged output at this time. pt reports taking a medication that affects urine color
[2024-03-25 04:29] LABS: Appearance Urine Turbid; Color Urine Orange; Glucose Urine UA 250 mg/dL (Negative); Leukocyte Esterase Urine Large (3+) (Negative); Nitrite Urine Positive (Negative); PH 5.5 (5.0-9.0); Specific Gravity - Urine 1.015 (1.005-1.025); UMIC TRIGGER UACC YES; Urine Blood Large (3+) (Negative); Urine Ketones Trace mg/dL (Negative); Urine Protein 300 (3+) mg/dL (Neg-Trace)
[2024-03-25 04:37] LABS: Bacteria Urine 4+ (None Seen); RBC Urine >20 /HPF (0-2); UACC Culture Trigger YES; WBC Urine >50 /HPF (0-5)
[2024-03-25 06:31] VITALS: BP 163/74; PULSE 74; RESP 16; TEMP 36.9; O2SAT 99
--- NOTE | 2024-03-25 06:47 | PC.NURSE ---
pt awaiting EMS transport home
== END 2024-03-25 08:41 | disposition home or self-care (01) ==
PROVIDERS: Emergency Provider Internal Medicine
DX: T83.098A Other mechanical complication of other urinary catheter, initial encounter (principal); R10.9 Unspecified abdominal pain; E11.9 Type 2 diabetes mellitus without complications; Y73.8 Miscellaneous gastroenterology and urology devices associated with adverse incidents, not elsewhere classified; Y92.89 Other specified places as the place of occurrence of the external cause; Z79.899 Other long term (current) drug therapy; Z79.4 Long term (current) use of insulin
CPT/HCPCS: 51702; 81001; 87086; 87088; 87186; 99283; 99284

== ENCOUNTER 2024-06-25 21:03 | Emergency (ER) | payer MEDICARE, MEDICAID, SELFPAY ==
[2024-06-25 21:10] VITALS: BP 172/82; PULSE 80; O2SAT 94
[2024-06-25 21:12] VITALS: BP 175/67; PULSE 74; RESP 28; TEMP 36.6; O2SAT 92; BMI 49.1
[2024-06-25 21:20] VITALS: BP 175/67; PULSE 74; RESP 28; TEMP 36.7; O2SAT 92
[2024-06-25 21:23] LABS: Glucose, Whole Blood 415 mg/dL (60-115)
[2024-06-25] MEDS: Insulin Regular, Human 100 UNIT/ML 10 ML VIAL 10 UNIT IVPUSH ×2 (21:35→22:35)
--- OUTSIDE RECORDS SUMMARY | 2024-06-25 21:35 | XMS_ITS | Data Portability ---
Author Organization [facility], Main Office Address [address] [facility] [address] [place] [address] Care Team Providers Care Resource Room Special Education Teacher Name Role Phone LEONORA CASEY Primary Care Provider [phone] [facility] F[facility]OR OTHER Assessment Encounter Date Assessment Date Assessment LastModified by Organization Details LastModified Time 01/12/2024 01/12/2024 01/08/24 ([facility]): wbc 11.8, hgb 14.1, plt 159. Na 131, K 3.9, Bun 15, Cr. 0.63, glu 212. [email or web address] Not available 01/15/2024 11:30:39 01/15/2024 01/15/2024 01/08/24 ([facility]): wbc 11.8, hgb 14.1, plt 159. Na 131, K 3.9, Bun 15, Cr. 0.63, glu 212 01/12/24: wbc 9.7, hgb 13.2, hct 43.1, plt 177, ha1c 8.5, est glucose 197, glucose 203, na 132, k 3.5, bun 12, cr 0.56, alb 29 [email or web address] Not available 01/15/2024 14:49:14 01/16/2024 01/16/2024 01/08/24 ([facility]): wbc 11.8, hgb 14.1, plt 159. Na 131, K 3.9, Bun 15, Cr. 0.63, glu 212 01/12/24: wbc 9.7, hgb 13.2, hct 43.1, plt 177, ha1c 8.5, est glucose 197, glucose 203, na 132, k 3.5, bun 12, cr 0.56, alb 29 01/08/24 ([facility]): wbc 11.8, hgb 14.1, plt 159. Na 131, K 3.9, Bun 15, Cr. 0.63, glu 212. [email or web address] Not available 01/16/2024 19:23:30 Plan of Treatment Reminders Order Date Submit Date Provider Last Modified By Organization Details Last Modified Time Details Appointments None record ed. Lab None record ed. Referral None record ed. Procedures None record ed. Surgeries None record ed. Imaging None record ed. Medication Orders None record ed. Patient TargetsNo targets recorded. Patient InstructionsNo instructions recorded. Reason for Referral None Reported. Problems Name Problem SNOMED Code Status Onset Date Resolution Date Notes Provider Name and Address Organization Details Recorded Time Sepsis 61837695 Active 2020 Not Available [facility] 3 04:06:36 Acute urinary tract infection 809881384 Active 2020 Not Available [facility] 3 04:06:35 Colitis 50629424 Active 2020 Not Available [facility] 3 04:06:36 Transient cerebral ischemia 885158014 Active 2020 Not Available [facility] 3 04:06:35 Paroxysmal atrial fibrillati on 869692793 Active 2020 Not Available [facility] 3 04:06:35 Congestive heart failure 85664838 Active 2020 Not Available [facility] 3 04:06:35 History of cerebrovas cular accident 409390489 Active 2020 Not Available [facility] 3 04:06:35 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 urinary catheter in 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 5692561570305 Active 2020 Not Available [facility] 3 04:06:36 Aortic valve stenosis 04055228 Active 2020 Not Available [facility] 3 04:06:36 Type 2 diabetes mellitus 84034781 Active 2020 Not Available [facility] 3 04:06:35 Chronic obstructiv e pulmonary disease 92569039 Active 2020 Not Available [facility] 3 04:06:35 Glaucoma 70019808 Active 2020 Not Available [facility] 3 04:06:35 Essential hypertensi on 18017023 Active 2020 Not Available [facility] 3 04:06:36 Morbid obesity 628856295 Active 2020 Not Available [facility] 3 04:06:35 Osteoarthr itis 411787471 Active 2020 Not Available [facility] 3 04:06:35 History of eye enucleatio n 3969601438883 05 Active 2020 Not Available [facility] 3 04:06:35 Glaucoma 13148502 Active 2020 Not Available [facility] 3 04:06:35 COVID-19 905899599 Active 2021 Not Available [facility] 3 04:06:36 Hyperlipid emia 80727609 Active 2021 Not Available [facility] 3 04:06:36 Vitamin D deficiency 40784630 Active 2021 Not Available [facility] 3 04:06:35 Admission for respite care Active 2021 Not Available [facility] 3 04:06:35 Bacteriuri a 42035131 Active 2021 Not Available [facility] 3 04:06:36 Urinary tract infectious disease 10653166 Active 2022 Not Available [facility] 3 04:06:36 Neurogenic urinary bladder 549620753 Active 2022 Not Available [facility] 3 04:06:35 Obstructiv e sleep apnea syndrome 45456387 Active 2022 Not Available [facility] 3 04:06:36 Atrial fibrillati on 71868611 Active 2022 Not Available [facility] 3 04:06:35 Neuropathy 126346803 Active 2022 Not Available [facility] 3 04:06:35 Diarrhea 73677395 Active 2023 ALEAH ATKINS NP [address] [facility], [address], [place], [address] , [facility] 4 14:17:12 [facility] 98250571 Active 2023 Kady Lund MD [address], [address], [place], [address] , [facility] 4 19:36:13 Problem Notes None recorded. Procedures Surgical History Date Name Laterality Status Provider Name and Address Organization Details Recorded Time Removal of adenoids completed TRCAI TORREZ [address], [address], [place], [address], [facility] 09/25/2020 19:50:50 enucleation of eyeball completed MORIS TORREZP [address], [address], [place], [address], [facility] [employer] [facility] 09/25/2020 19:51:26 tonsillectomy completed TRACI TORREZ [address], [address], [place], [address], [facility] [employer] [facility] 09/25/2020 19:51:39 Imaging Results None recorded. Procedure Notes None recorded. Medical Equipment None Reported. Allergies Allergen ID Allergen Name Allergen Category Reaction Reaction Severity Criticality Documentation Date Start Date Code Code System Note Provider Name and Address Organization Details Recorded Time [id number] silver sulfadiaz ine medicatio n Not available Not available Not available 09/25/2020 9793 RxNorm cause s skin alicea Not Available Not Available Not Available Vitals Date Recorded Heart rate Respiratory rate Body temperature Oxygen saturation Oxygen saturation in Arterial blood by Pulse oximetry Inhaled oxygen flow rate Systolic blood pressure Diastolic blood pressure Provider Name and Address Organization Details Last Updated DateTime 4 74 /min 18 /min 97.5 [degF] 93 % 93 % 2 L/min 148 mm[Hg] 54 mm[Hg] ALEAH ATKINS NP [address], [address], [place], [address], [facility] [employer] [facility] 4 14:06:48 Date Recorded Heart rate Respiratory rate Body temperature Oxygen saturation Oxygen saturation in Arterial blood by Pulse oximetry Systolic blood pressure Diastolic blood pressure Provider Name and Address Organization Details Last Updated DateTime 4 81 /min 20 /min 98.1 [degF] 92 % 92 % 130 mm[Hg] 90 mm[Hg] TRACI BERG [address], [address], [place], [address], [facility] 4 14:03:42 Date Recorded Body weight Heart rate Respiratory rate Body temperature Oxygen saturation Oxygen saturation in Arterial blood by Pulse oximetry Systolic blood pressure Diastolic blood pressure Provider Name and Address Organization Details Last Updated DateTime 4 048674. 94 g 73 /min 18 /min 97.8 [degF] 93 % 93 % 130 mm[Hg] 76 mm[Hg] Lisy Munroe NP [address], [facility] [address], [place], [address], [facility] 4 14:15:58 Date Recorded Body height Body mass index (BMI) Body weight Heart rate Respiratory rate Body temperature Oxygen saturation Oxygen saturation in Arterial blood by Pulse oximetry Systolic blood pressure Diastolic blood pressure Provider Name and Address Organization Details Last Updated DateTime 4 167.64 cm 43.9 kg/m2 615964. 12 g 67 /min 18 /min 97.8 [degF] 97 % 97 % 130 mm[Hg] 89 mm[Hg] Kady Lund MD [address], [facility] [address], [place], [address], [facility] 4 18:25:27 Date Recorded Body height Body mass index (BMI) Body weight Heart rate Respiratory rate Body temperature Oxygen saturation Oxygen saturation in Arterial blood by Pulse oximetry Systolic blood pressure Diastolic blood pressure Provider Name and Address Organization Details Last Updated DateTime 4 167.64 cm 43.9 kg/m2 106449. 12 g 64 /min 18 /min 97.8 [degF] 93 % 93 % 112 mm[Hg] 70 mm[Hg] Lisy Munroe NP [address], [facility] [address], [place], [address], [facility] 4 10:22:42 Social History Question Answer Notes LastModified by Organizat ion Details LastModified Time Tobacco Smoking Status Never Smoker TRACI TORREZ [address], [address], [place], [address], [facility] 09/25/2020 19:44:55 Do You Have An Advance Directive? Yes Full Code; No Dialysis; Ok For Artificial Nutrition And Hydration Information not available 01/06/2022 What Is Your Level Of Alcohol Consumption? None Information not available 09/25/2020 How Much Tobacco Do You Chew? None Information not available 09/25/2020 What Is Your Code Status? Full Code [email or web address] Information not available 12/03/2021 Do You Or Have You Ever Used E-cigarettes Or Vape? Never Used Electronic Cigarettes Information not available 09/25/2020 Where Do You Live? Apartment Home With Help, Has Own Thi, Assistance And Motorized Wheelchair Information not available 04/05/2022 Legal Guardian? No [email or web address] Informati on not available 12/07/2021 Do You Have A Medical Power Of Boat Builder? Yes [email or web address] Information not available 12/03/2021 What Was The Date Of Your Most Recent Tobacco Screening? 01/10/2024 [email or web address] Information not available 01/10/2024 Do You Have An Out Of Hospital DNR? No [email or web address] Information not available 12/03/2021 Do You Or Have You Ever Used Smokeless Tobacco? Never Used Smokeless Tobacco Information not available 09/25/2020 How Much Tobacco Do You Smoke? No Information not available 09/25/2020 Do You Use Any Illicit Or Recreational Drugs? No Information not available 01/06/2022 Has Tobacco Cessation Counseling Been Provided? No N/A As Pt Is A Non-smoker Information not available 04/05/2022 Do You Or Have You Ever Used Any Other Forms Of Tobacco Or Nicotine? No [email or web address] Information not available 12/07/2021 Sex: Unknown Functional Status None recorded. Mental Status None recorded. Family History Relationship Description Onset Age of this Age Resolved Age Notes LastModified by Organization Details LastModified Time Father No current problems or disability [email or web address] Not available 01/09 14:07:27 Mother No current problems or disability [email or web address] Not available 01/09 14:07:27 Notes:n/c Medical History No medical history recorded. Gynecological HistoryNo gynecological history recorded. Obstetrics History GPAL:G 0 P 0 0 0 0 Immunizations Vaccine Type Date Status Note Provider Nam e and Address Organization Details Recorded Time Influenza, split virus, quadrivalent, preservative 1 completed Not Available [facility] 10/25/2022 04:06:36 pneumococcal polysaccharide PPV23 0 completed Not Available [facility] 10/25/2022 04:06:36 COVID-19 vaccine, vector-nr, rS-ChAdOx1, PF, 0.5 mL 1 completed Not Available [facility] 10/25/2022 04:06:36 Td (adult) 8 completed Not Available [facility] 10/25/2022 04:06:37 Influenza, adjuvanted, quadrivalent, PF 3 completed Jenn garcia, [facility] 09/12/2023 12:42:27 Influenza, adjuvanted, quadrivalent, PF 3 completed Jenn garcia, [facility] 09/12/2023 12:42:40 COVID-19, mRNA, LNP-S, PF, 50 mcg/0.5 mL 3 completed Jenn garcia, [facility] 10/26/2023 12:36:29 Tdap 3 completed Jennkishore garcia, [facility] 10/26/2023 12:36:56 Pneumococcal conjugate PCV20, polysaccharide [id number] conjugate, adjuvant, PF 4 completed Jenn garcia, [facility] 10/26/2023 12:37:34 Tdap 6 completed Not Available [facility] 10/25/2022 04:06:37 Influenza, high-dose, trivalent, PF 8 completed Not Available [facility] 10/25/2022 04:06:37 pneumococcal polysaccharide PPV23 8 completed Not Available [facility] 10/25/2022 04:06:36 Pneumococcal conjugate PCV 13 5 completed Not Available [facility] 10/25/2022 04:06:37 pneumococcal polysaccharide PPV23 11/16/200 1 completed Not Available [facility] 10/25/2022 04:06:36 Past Encounters Encounter ID Performer Location Encounter Start Date Encounter Closed Date Diagnosis/Indication Diagnosis SNOMED-CT Code Diagnosis ICD10 Code [id number] [address]IS [address] [place] [address] 09/25/2020 15:47:43 10/01/2020 11:36:53 Sepsis 67488250 A41.89 Acute urin preston tract infection 611474387 N30.00 Colitis 96823970 K52.89 Transient cerebral ischemia 992537792 G45.9 Paroxysmal atrial fibrillation 711093289 I48.0 Congestive heart failure 27800244 I50.89 History of cerebrovascular accident 604415257 Z86.73 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 in 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 3875476947 104 Z96.0 Aortic valve stenosis 60 224018 I35.0 Type 2 juvenal betes mellitus 37407786 E11.42 Chronic ob structive pulmonary disease 87211678 J41.8 Glaucoma 39101687 H42 Essential hypertension 38725858 I10 Morbid obesity 420379114 E66.01 Osteoarthritis 324365503 M15.0 History of eye enucleation 3200015297 26677 Z90.01 [id number] Kady Lund MD [address] [address] 09/28/2020 12:53:35 10/01/2020 11:48:26 Sepsis 24083682 A41.89 Acute urin preston tract infection 315041040 N30.00 Colitis 10697284 K52.89 Paroxysmal atrial fibrillation 694448929 I48.0 Congestive heart failure 12798711 I50.89 History of cerebrovascular accident 449005489 Z86.73 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 in 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 1356484034 104 Z96.0 Aortic valve stenosis 60 116194 I35.0 Type 2 juvenal betes mellitus 60774454 E11.42 Chronic ob structive pulmonary disease 86304946 J41.8 Glaucoma 66103661 H42 Essential hypertension 92496095 I10 Morbid obesity 623156544 E66.01 Osteoarthritis 504174060 M15.0 History of eye enucleation 4483781981 66231 Z90.01 [id number] TRACI TORREZ [address] [place] [address] 10/09/2020 13:18:28 10/13/2020 08:48:18 Congestive heart failure 24033838 I50.89 Essential hypertension 83820355 I10 Paroxysmal atrial fibrillation 946712114 I48.0 [id number] NOELLE MARIA [address] [address] [address] [place] [address] 10/14/2020 12:39:56 10/16/2020 10:09:52 Urethral urinary catheter in situ for prison use 6136257676 104 Z96.0 Dysuria 82265296 R30.0 [id number] NOELLE MARIA [address] [address] [address] [place] [address] 10/19/2020 13:58:55 10/21/2020 11:27:28 Acute urinary tract infection 184546002 N30.00 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 in situ for prison use 4943121134 104 Z96.0 [id number] NOELLE MARIA [address] [address] [address] [place] [address] 10/20/2020 12:44:09 10/23/2020 09:40:49 Congestive heart failure 38044433 I50.89 Essential hypertension 63827013 I10 History of cerebrovascular accident 637191224 Z86.73 Morbid obesity 546261161 E66.01 Osteoarthritis 288312105 M15.0 Paroxysmal atrial fibrillation 381725748 I48.0 Type 2 juvenal betes mellitus 19032609 E11.42 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 in 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 3145256915 104 Z96.0 Colitis 52110680 K52.89 Chronic ob structive pulmonary disease 55990582 J41.8 Acute urin preston tract infection 588990794 N30.00 [id number] FAUSTINO PABON NP [address] [address] [address] [place] [address] 11/03/2020 11:29:23 11/05/2020 11:26:14 Chronic obstructive pulmonary disease 58995867 J44.9 Type 2 juvenal betes mellitus 18105998 E11.9 [id number] Stefan Merlos MD [address] [address] [address] [place] [address] 11/12/2020 13:08:51 11/13/2020 11:39:34 Pain of left shoulder joint 1589992009 6819272 M25.512 Neck pain 25698339 M54.2 [id number] Leda Layton MD [address] [address] [address] [place] [address] 11/13/2020 06:27:51 11/16/2020 14:20:57 Chronic obstructive pulmonary disease 71752863 J41.0 Congestive heart failure 59412075 I50.22 Essential hypertension 19608294 I10 History of cerebrovascular accident 923017480 Z86.73 Osteoarthritis 804131907 M15.0 Paroxysmal atrial fibrillation 405026869 I48.0 Type 2 juvenal betes mellitus 37606001 E11.9 [id number] NOELLE MARIA [address] [place] [address] 12/04/2020 14:37:48 12/08/2020 16:12:10 History of cerebrovascular accident 122683937 Z86.73 Osteoarthritis 675489308 M15.0 Paroxysmal atrial fibrillation 948285349 I48.0 Type 2 juvenal betes mellitus 78830167 E11.42 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 in 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 3759654217 104 Z96.0 Morbid obesity 762927712 E66.01 Essential hypertension 10140509 I10 Chronic ob structive pulmonary disease 05509049 J41.8 Aortic valve stenosis 60 085482 I35.0 Congestive heart failure 62149440 I50.89 [id number] NOELLE MARIA [address] [place] [address] 12/24/2020 13:27:36 12/28/2020 15:17:56 Pain of right shoulder joint 7383083043 4019117 M25.511 [id number] NOELLE MARIA [address] [place] [address] 12/28/2020 13:28:54 12/30/2020 11:32:08 Pain of right shoulder joint 8195115088 3935520 M25.511 [id number] NOELLE MARIA [address] [place] [address] 01/19/2021 12:20:44 01/26/2021 12:28:25 Sepsis 50380056 A41.89 Acute urin preston tract infection 252767094 N30.00 Colitis 02745146 K52.89 Transient cerebral ischemia 083050030 G45.9 Paroxysmal atrial fibrillation 476958248 I48.0 Congestive heart failure 20797469 I50.89 History of cerebrovascular accident 598875118 Z86.73 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 in 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 5155041382 104 Z96.0 Aortic valve stenosis 60 752490 I35.0 Type 2 juvenal betes mellitus 00230829 E11.42 Chronic ob structive pulmonary disease 09073467 J41.8 Glaucoma 65399092 H42 Essential hypertension 83477955 I10 Morbid obesity 817015595 E66.01 Osteoarthritis 167601284 M15.0 History of eye enucleation 5380567839 84824 Z90.01 Pain of ri ght shoulder joint 8284356231 9811530 M25.511 [id number] PATSY EDEN PA-C [facility] on [address] [place] [address] 12/03/2021 15:59:43 12/09/2021 16:05:45 Chronic obstructive pulmonary disease 53162900 J44.9 COVID-19 607235510 U07.1 Cellulitis of left lower limb 3031625523 2060327 L03.116 Acute hypo xemic respiratory failure 909143357 J96.01 Type 2 juvenal betes mellitus with peripheral angiopathy 067521214 E11.51 Candidal intertrigo 2661 59101 B37.2 Neurogenic urinary bladder 170699492 N31.9 Functional fecal incontinence 744395422 R15.9 Paroxysmal atrial fibrillation 512753057 I48.0 Essential hypertension 38297508 I10 Vitamin D deficiency 347 10741 E55.9 Moderate p ersistent asthma 682211593 J45.40 Congestive heart failure 54413704 I50.9 Dyslipidemia 877201782 E 78.5 Chronic neck pain 366336 5619 107 M54.2 Chronic back pain 423263 002 M54.9 Allergic rhinitis 536065 04 J30.9 Advance care planning 71 9581383 Z71.89 At [facility] ed risk for falls 864124961 Z91.81 [id number] Kady Lund MD [facility] on [address] [place] [address] 12/07/2021 18:17:25 12/10/2021 14:46:47 Chronic obstructive pulmonary disease 82313807 J41.8 Congestive heart failure 69560434 I50.89 Type 2 juvenal betes mellitus 33477164 E11.42 Morbid obesity 605996089 E66.01 Paroxysmal atrial fibrillation 260575399 I48.0 Osteoarthritis 193462888 M15.0 Essential hypertension 70411759 I10 Candidiasis of skin 4988 3006 B37.2 Post-acute COVID-19 1119 972978 U07.1 COVID-19 993725632 U07.1 Hyperlipidemia 92087535 E78.49 Vitamin D deficiency 347 27987 E56.8 [id number] PATSY EDEN PA-C [facility] on [address] [place] [address] 12/09/2021 11:49:10 12/14/2021 10:12:06 Type 2 diabetes mellitus 28116424 E11.42 Paroxysmal atrial fibrillation 354869711 I48.0 Osteoarthritis 043086141 M15.0 [id number] FAUSTINO PABON NP [address] [address] 01/06/2022 10:52:44 01/12/2022 15:31:48 Acute urinary tract infection 739688198 N30.00 Type 2 juvenal betes mellitus 50704713 E11.42 Vitamin D deficiency 347 12407 E56.8 Paroxysmal atrial fibrillation 820911525 I48.0 Osteoarthritis 961762809 M15.0 Hyperlipidemia 28622892 E78.49 Congestive heart failure 39354060 I50.89 Chronic ob structive pulmonary disease 25452848 J41.8 Essential hypertension 58639720 I10 [id number] FAUSTINO PABON NP [address] [address] 01/07/2022 11:00:47 01/12/2022 16:07:23 Acute urinary tract infection 923300535 N30.00 Type 2 juvenal betes mellitus 12126911 E11.42 [id number] FAUSTINO PABON NP [address] [address] 01/11/2022 11:56:32 01/18/2022 14:35:40 Acute urinary tract infection 558443448 N30.00 History of cerebrovascular accident 218482165 Z86.73 Congestive heart failure 80674995 I50.89 [id number] Leda Layton MD [address] [address] 01/12/2022 05:26:23 01/18/2022 14:54:45 History of cerebrovascular accident 832106559 Z86.73 Paroxysmal atrial fibrillation 914508534 I48.0 Type 2 juvenal betes mellitus 84247991 E11.42 Asthenia 03190328 R53.1 Essential hypertension 43178387 I10 Chronic ob structive pulmonary disease 26345245 J41.8 [id number] FAUSTINO PABON NP [address] [address] 01/17/2022 12:58:09 01/25/2022 12:24:51 Acute urinary tract infection 080701443 N30.00 Type 2 juvenal betes mellitus 21875575 E11.42 Vitamin D deficiency 347 16153 E56.8 Paroxysmal atrial fibrillation 562334101 I48.0 Osteoarthritis 537769598 M15.0 Hyperlipidemia 16521351 E78.49 Congestive heart failure 70446398 I50.89 Chronic ob structive pulmonary disease 47719234 J41.8 Essential hypertension 73308583 I10 [id number] FAUSTINO PABON NP [address] [address] 03/31/2022 11:01:20 04/05/2022 20:26:42 Type 2 diabetes mellitus 25347575 E11.42 Vitamin D deficiency 347 99008 E56.8 Paroxysmal atrial fibrillation 044306191 I48.0 Osteoarthritis 385142605 M15.0 Hyperlipidemia 81703177 E78.49 Congestive heart failure 50893378 I50.89 Chronic ob structive pulmonary disease 24303652 J41.8 Essential hypertension 24216863 I10 Morbid obesity 641497237 E66.01 [id number] FAUSTINO PABON NP [address] [address] 04/01/2022 12:23:01 04/06/2022 16:25:58 Chronic obstructive pulmonary disease 33340361 J41.8 Osteoarthritis 502884683 M15.0 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 in situ for prison use 5418642426 104 Z96.0 [id number] FAUSTINO PABON NP [address] [address] 04/04/2022 13:31:43 04/07/2022 15:11:22 Congestive heart failure 99846579 I50.89 Paroxysmal atrial fibrillation 245127135 I48.0 [id number] Kady Lund MD [address] [address] 04/05/2022 15:28:39 04/12/2022 13:07:36 Congestive heart failure 62904773 I50.89 Paroxysmal atrial fibrillation 458386180 I48.0 Chronic ob structive pulmonary disease 52475125 J41.8 Osteoarthritis 871342374 M15.0 Type 2 juvenal betes mellitus 52585790 E11.42 Vitamin D deficiency 347 08982 E56.8 Hyperlipidemia 77376076 E78.49 Essential hypertension 31427257 I10 Morbid obesity 009394717 E66.01 Asthenia 66032238 R53.1 Bacteriuria 49922153 R82 .71 N39.498 [id number] FAUSTINO PABON NP [address] [address] 04/11/2022 11:18:46 04/14/2022 12:04:56 Acute urinary tract infection 129888016 N30.00 Chronic ob structive pulmonary disease 41530744 J41.8 [id number] FAUSTINO PABON NP [address] [address] 04/21/2022 12:50:33 04/26/2022 14:58:24 Acute urinary tract infection 540232803 N30.00 Morbid obesity 148582127 E66.01 [id number] FAUSTINO PABON NP [address] [address] 04/28/2022 12:32:14 05/03/2022 15:40:31 Chronic obstructive pulmonary disease 02811432 J41.8 Morbid obesity 200007542 E66.01 Type 2 juvenal betes mellitus 86400737 E11.42 Vitamin D deficiency 347 69036 E56.8 Paroxysmal atrial fibrillation 991739030 I48.0 Osteoarthritis 366743451 M15.0 Hyperlipidemia 09707885 E78.49 Congestive heart failure 22446525 I50.89 Essential hypertension 28018878 I10 [id number] FAUSTINO PABON NP [address] [address] 05/11/2022 11:51:59 05/18/2022 15:23:58 Chronic obstructive pulmonary disease 41302301 J41.8 Congestive heart failure 57948212 I50.89 Morbid obesity 210006231 E66.01 Type 2 juvenal betes mellitus 35060504 E11.42 Vitamin D deficiency 347 62391 E56.8 Paroxysmal atrial fibrillation 202579620 I48.0 Osteoarthritis 515022812 M15.0 Hyperlipidemia 83995444 E78.49 Essential hypertension 02560366 I10 [id number] FAUSTINO PABON NP [address] [address] 05/16/2022 10:20:33 05/18/2022 16:24:08 Chronic obstructive pulmonary disease 84000099 J41.8 Morbid obesity 936177800 E66.01 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 in 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 [id number] 104 Z96.0 [id number] [facility] [address] [place] [address] 10/07/2022 08:11:14 10/10/2022 13:33:35 Urinary tract infectious disease 08883266 N39.0 Neurogenic urinary bladder 013194543 N31.8 Morbid obesity 269677773 E66.01 Type 2 juvenal betes mellitus 94206860 E11.42 Congestive heart failure 85127663 I50.89 Chronic ob structive pulmonary disease 70976336 J41.8 Obstructiv e sleep apnea syndrome 02577097 G47.33 Essential hypertension 95655100 I10 Atrial fibrillation 4943 6004 I48.19 Aortic valve stenosis 60 747450 I35.0 Hyperlipidemia 83930231 E78.49 Osteoarthritis 147468922 M15.0 Neuropathy 664483952 G62 .89 [id number] [facility] [address] [place] [address] 10/11/2022 08:36:19 10/13/2022 11:11:56 Urinary tract infectious disease 51116774 N39.0 Neurogenic urinary bladder 451746352 N31.8 Morbid obesity 701080099 E66.01 Type 2 juvenal betes mellitus 24748319 E11.42 Congestive heart failure 79730794 I50.89 Chronic ob structive pulmonary disease 10856255 J41.8 Obstructiv e sleep apnea syndrome 03541728 G47.33 Essential hypertension 14040084 I10 Atrial fibrillation 4943 6004 I48.19 Aortic valve stenosis 60 195123 I35.0 Hyperlipidemia 54271440 E78.49 Osteoarthritis 998157967 M15.0 Neuropathy 074333614 G62 .89 [id number] ALEAH ATKINS NP [facility] [address] [address] 01/10/2024 14:05:26 01/18/2024 11:38:18 Chronic obstructive pulmonary disease 27608512 J41.8 Atrial fibrillation 4943 6004 I48.19 Type 2 juvenal betes mellitus 56956165 E11.42 Congestive heart failure 06962938 I50.89 Essential hypertension 85561042 I10 History of cerebrovascular accident 880544284 Z86.73 Neurogenic urinary bladder 172665358 N31.8 Neuropathy 074617741 G62 .89 Vitamin D deficiency 347 78057 E56.8 Diarrhea 94808412 R19.7 [id number] TRACI BERG [facility] [address] [address] 01/12/2024 11:24:53 01/18/2024 13:03:05 Aphthous ulcer of mouth 022603876 K12.0 Abdominal pain 96183932 R10.9 [id number] Lisy Munroe NP [facility] [address] [address] 01/15/2024 14:01:35 01/18/2024 14:27:24 Abdominal pain 43530231 R10.9 Chronic ob structive pulmonary disease 32300523 J41.8 Atrial fibrillation 4943 6004 I48.19 Type 2 juvenal betes mellitus 93736334 E11.42 Congestive heart failure 07707487 I50.89 Essential hypertension 22358103 I10 History of cerebrovascular accident 756730947 Z86.73 Neurogenic urinary bladder 289076519 N31.8 Neuropathy 947186914 G62 .89 Vitamin D deficiency 347 22955 E56.8 Candidiasis 92102702 B37 .9 [id number] Kady Lund MD [address] [address] 01/16/2024 18:15:29 01/18/2024 15:13:53 Abdominal pain 89563458 R10.84 Candidiasis 07117713 B37 .9 Chronic ob structive pulmonary disease 04856220 J41.8 Atrial fibrillation 4943 6004 I48.19 Type 2 juvenal betes mellitus 51312222 E11.42 Congestive heart failure 71801288 I50.89 Essential hypertension 24834426 I10 History of cerebrovascular accident 353463085 Z86.73 Neurogenic urinary bladder 532204706 N31.8 Neuropathy 079194804 G62 .89 Vitamin D deficiency 347 78855 E56.8 Diarrhea 12752621 K59.1 Aphthous u lcer of mouth 740747702 K12.0 Hyponatremia 32505860 E8 7.1 [id number] Lisy Munroe NP [address] [address] 01/23/2024 10:20:00 01/25/2024 15:41:39 Diarrhea 91472746 K59.1 Abdominal pain 38271280 R10.84 Hyponatremia 78124669 E8 7.1 Aphthous u lcer of mouth 544360232 K12.0 Chronic ob structive pulmonary disease 40874643 J41.8 Essential hypertension 85959958 I10 Atrial fibrillation 4943 6004 I48.19 Type 2 juvenal betes mellitus 22110764 E11.42 Congestive heart failure 16375800 I50.89 Candidiasis 08725751 B37 .9 History of cerebrovascular accident 710595624 Z86.73 Neurogenic urinary bladder 715888259 N31.8 Neuropathy 355853018 G62 .89 Vitamin D deficiency 347 03157 E56.8 Health Concerns Section Related Observation LastModified by Organization Detai ls LastModified Time None Recorded Concern Status LastModified by Organization Details LastModified Time None Recorded Advance Directives Directive Y: full code; no dialysis; o k for artificial nutrition and hydration Payers Encounter Date Sequence Insurance Name Policy Number Policy Adler Covered Member ID Adler Member ID Guarantor Name 01/10/2024 1 [place] [facility] Aleah Connor [id number] Aleah Connor 01/10/2024 2 [place] Aleah Connor [id number] Aleah Connor 01/12/2024 1 [place] [facility] Aleah Connor [id number] Aleah Connor 01/12/2024 2 [place] Aleah Connor [id number] Aleah Connor 01/15/2024 1 [place] [facility] Aleah Connor [id number] Aleah Connor 01/15/2024 2 [place] Aleah Connor [id number] Aleah Connor 01/16/2024 1 [place] [facility] Aleah Connor [id number] Aleah Connor 01/16/2024 2 [place] Aleah Connor [id number] Aleah Connor 01/23/2024 1 [place] [facility] Aleah Connor [id number] Aleah Connor 01/23/2024 2 [place] Aleah Connor [id number] Aleah Connor Notes Date Note Type Note Provider Name and Address Organization Details Recorded Time 01/10/2024 text/html Aleah is seen to day for initial intake. She is a 73 yo woman, admitted to [facility] today 01/09 from [facility] for continued care/respite and rehab. She presented to [facility] ER 01/08/24 with diarrhea; soaked thru mattress and onto the floor at home. Minimal ER paperwork for review, appears work up unremarkable, sent here for care until daughter can get a new mattress for her bed as well as a battery for her thi lift. Upon exam, Aleah is in bed, alert, NAD. Appears tired. Denies any complaints except for GI upset, some lower abd. discomfort and intermittent upper regurgitation. I asked what they thought was wrong with her when she was in the ER, and she didn't know but her diarrhea has improved. She does mention 2 CT scans were done, but no CT reports in ED paperwork. PMH: CHF, HTN, glaucoma, hx of CVA, morbid obesity, s/p eye enucleation, OA, AODM, Afib, chronic rai use, COPD, recurrent UTI's, wheelchair bound-uses electric WC, and aortic valve stenosis. ALEAH ATKINS NP [address], [address], [place], [address], [facility] [employer] [facility] 01/10/2024 14:49:28 01/12/2024 text/html This is a 73 yr old femal seen today for acute rounding visit. She was recently admitted to facility from [facility] ED. It looks likes she initially presented to [facility] on 01/05 with abdominal pain and vomiting, she had been having regular bowel movements. Ct scan showed a partial bowel obstruction and left ovarian mass, A pelvic ultrasound was done as well and showed cystic mass left ovary measure up to 6.5 cm, she was seen by surgery who recommended outpatient follow up.UA was positive, she was not started on abx at that time due to hx of pyuria. MD wanted to wait for C&S report. It looks likes she was discharged back to home and returned to [facility] on 01/07 with diarrhea. On exam when I enter the room, she is crying that she is in so much pain, constipated and that she has not had a bowel movement for over 1 week. she reports cramping intermittent pain, with nausea, no vomiting. She is reminded that she presented to the ED on 01/07 with diarrhea. Her abdomen is noted with distention and decreased BS, she further reports having an bump on her gums for 1 week with pain. Of note however due to mix carlito contamination c&s was not completed. Will do a repeat UA and ordered an abdominal xray. TRACI BERG [address], [address], [place], [address], [facility] [employer] 01/15/2024 11:42:15 01/15/2024 text/html Aleah is a 73 yr old women seen today for acute rounding visit. Sybil was recently admitted to facility from [facility] ED. Initially presented to [facility] on 01/05 with abdominal pain and vomiting, she had been having regular bowel movements prior. She is thi and bed dependent and needs her new mattress to come in before returning home. Workup of Ct scan showed a partial bowel obstruction and left ovarian mass, A pelvic ultrasound was done as well and showed cystic mass left ovary measure up to 6.5 cm, she was seen by surgery who recommended outpatient follow up.UA was positive, she was not started on abx at that time due to hx of pyuria and UA returned with contamination when nurse called Marcie. Another urine was sent from rehab and pending. On exam, Aleah states she is doing much better and states the abdominal distention, pain, and gas are clearing after fleet enema today given by nurse, however still feels her stomach is larger than normal and the belching and gas remains. Nursing also describes a rectal prolapse, however not noted on exam today but several non bleeding hemorrhoids noted. A rectal exam is performed without any notable stool in rectal vault. Chronic rai with clear yellow urine in bag. Abd xray on 01/11 shows abd with mod distended stomach and non dilated loops and small bowel loops noted and possible indication of some degree of obstruction.Abd xray of 01/13 shows no dilated loops, stomach decompressed, and no obstruction or gastric distention. The osseus structures are without acute abnormality. There is a modest amount of stool in the colon and rectum. Lisy Munroe, ISRA [address], [address], [place], [address], [facility] [employer] 01/15/2024 14:50:19 01/16/2024 text/html This is a 73 yo woman who is here for rehab after 2 ED visits for abd pain, diarrhea and vomiting.She initially presented to the [facility] ED on 12/27 after having brown emesis, with concern for GI bleed.Stool was heme neg but imaging showed partial SBO and a Newly found left pelvic complex cystic mass 7.6 x 6.4 cm, given its size and texture, could be of left ovarian origin, cannot rule out ovarian neoplasm, further investigation recommended starting with ultrasound. Surgery was consulted and felt since she was tolerating po after anti-emetics given she could be managed as ano outpt and she was d/c'd home. She returned on 01/07 after having a large diarrheal stool which soaked through her mattress. She had mild hyponatremia (Na+131), but labs were otherwise unremarkable. Consideration was given for admission, but determined to not qualify, so arranged for STR and transferred here on 01/09. Of note at both visits U/As were done which showed a few WBCs and grew mixed carlito. She does have a chronic rai. At baseline she is thi dependent and her home thi lift needs a new battery, also daughter needs to get her a new mattress. So she is here for STR and respite until that can be done. On 01/11 she had severe abd pain and repeat U/A was done and KUB.U/A was essentially neg and KUB showed Moderate gastric distention. This could be related to the ingestion of a recent meal. It could indicate some degree of obstruction. Comparison with the patient's recent eating history is recommended. Urine grew mixed carlito and repeat KUB done on 01/13 was WNL. Today she had a large watery BM, of note she has gotten MOM the past 2 days.Also nursing tells me her Trulicity has still not been delivered as pharmacy is waiting on authorization. She tells me the abd pain is gradually moving from high in abd to lower and feels much better. Says meds for acid and gas help. She tells me many different things about her bowels, some contradictory.She also tells me sore in mouth is still bothering her. Her PMH includes CHF, HTN, glaucoma, hx of CVA, morbid obesity, s/p COVID 11/2021, s/p eye enucleation, OA, AODM with neuropathy, Afib, chronic rai use, severe tomer intertrigo abd and inguinal folds/pannus/buttoc ks, COPD/asthma, recurrent UTI's, HLD, vit. D deficiency, wheelchair bound-uses electric WC and thi, and aortic stenosis. Kady Lund MD [address], [address], [place], [address], [facility] - [employer] 01/16/2024 19:36:57 01/23/2024 text/html Patient is seen for a discharge visit. Her PMH includes CHF, HTN, glaucoma, hx of CVA, morbid obesity, s/p COVID 11/2021, s/p eye enucleation, OA, AODM with neuropathy, Afib, chronic rai use, severe tomer intertrigo abd and inguinal folds/pannus/buttoc ks, COPD/asthma, recurrent UTI's, HLD, vit. D deficiency, wheelchair bound-uses electric WC and thi, and aortic stenosis. Danish is a 73 yo woman who is here for rehab after 2 ED visits for abd pain, diarrhea and vomiting and respite. She initially presented to the [facility] ED on 12/27 after having brown emesis, with concern for GI bleed. Workup in hospital showed: Stool was heme neg but imaging showed partial SBO and a Newly found left pelvic complex cystic mass 7.6 x 6.4 cm, given its size and texture, could be of left ovarian origin, cannot rule out ovarian neoplasm, further investigation recommended starting with ultrasound. Surgery was consulted and felt since she was tolerating po after anti-emetics given she could be managed as ano outpt and she was d/c'd home. She returned on to [facility] on 01/07 after having a large diarrheal stool which soaked through her mattress. She had mild hyponatremia (Na+131), but labs were otherwise unremarkable. Consideration was given for admission, but determined to not qualify, so arranged for STR and transferred here on 01/09. While here at [facility]:She continues to remain at baseline she is thi dependent and her home thi lift needs a new battery, also daughter needs to get her a new mattress which is now reported to be in. On 01/11 she had severe abd pain and repeat U/A was done and KUB.U/A was essentially neg and KUB showed Moderate gastric distension. This could be related to the ingestion of a recent meal. It could indicate some degree of obstruction. Comparison with the patent's recent eating history is recommended. Her urine grew mixed carlito and repeat KUB done on 01/13 was WNL. While here she received 1 suppository, 3 milk of milk of magnesia, and 2 fleets enemas with large results. She was started on simethicone with good results for the gas pains. She was started on nystatin powder to her folds which are resolved. She was given clotrimazole georges for her thrush with some resolution, will cont with home dose. She was started on 30 ml of liquid protein to aid in healing while here. On exam, Aleah is lying in bed in NAD. She remains on her 2 liters of o2. She states she always has phlegm and denies any nausea or vomiting today. She reports being able to eat and drink well here but would like to go back to her home foods. Rai in place and yellow clear urine noted. Lisy Munroe NP [address] [place] [address], [address], [place], [address], [facility] 01/23/2024 12:25:11 OBGyn Episode No OBEpisode recorded.
--- OUTSIDE RECORDS SUMMARY | 2024-06-25 21:35 | XMS_ITS | Clinical Summary ---
Author Organization Unknown Care Team Providers Care Wheat Farmer Name Role Phone JACINTO GONZALEZ, LEONORA Unavailable Unavailable SANGITA FARNSWORTH, MARSHALL Unavailable Unavailable MARSHAL FARNSWORTH, LILY Unavailable Unavailable Payers Payer Name Policy Type Policy Number Effective Date Expira tion Date MEDICARE - [place] - [place] [id number] MEDICAID [facility] [id number] Problems Condition Name Condition Details Condition Category Status Onset Date Resolution Date Last Treatment Date Treating Clinician Comments CHRONIC OBSTRUCTIVE PULMONARY DISEASE, UNSPECIFIED Active 07-10 00:00: 00 HYPERTENSIVE HEART DISEASE WITH HEART FAILURE Active 07-10 00:00: 00 CHRONIC DIASTOLIC (CONGESTIVE) HEART FAILURE Active 07-10 00:00: 00 TYPE 2 DIABETES W DIABETIC PERIPHERAL ANGIOPATH W/O GANGRENE Active 07-10 00:00: 00 VENOUS INSUFFICIENC Y (CHRONIC) (PERIPHERAL) Active 07-10 00:00: 00 COVID-19 Active 07-10 00:00: 00 TYPE 2 DIABETES MELLITUS WITH DIABETIC NEUROPATHY, UNSP Active 07-10 00:00: 00 PAROXYSMAL ATRIAL FIBRILLATION Active 07-10 00:00: 00 NONRHEUMATIC AORTIC (VALVE) STENOSIS Active 07-10 00:00: 00 MILD INTERMITTENT ASTHMA, UNCOMPLICATE D Active 07-10 00:00: 00 UNSPECIFIED OSTEOARTHRIT IS, UNSPECIFIED SITE Active 07-10 00:00: 00 OTH DISRD OF BONE DENSITY AND STRUCTURE, UNSPECIFIED SITE Active 07-10 00:00: 00 URINARY TRACT INFECTION, SITE NOT SPECIFIED Active 07-10 00:00: 00 OTHER NEUROMUSCULA R DYSFUNCTION OF BLADDER Active 07-10 00:00: 00 UNSPECIFIED GLAUCOMA Active 07-10 00:00: 00 HYPERLIPIDEM IA, UNSPECIFIED Active 07-10 00:00: 00 ACUTE KIDNEY FAILURE, UNSPECIFIED Active 07-10 00:00: 00 MORBID (SEVERE) OBESITY DUE TO EXCESS CALORIES Active 07-10 00:00: 00 RECREATIONAL COUNSELOR (CURRENT) USE OF ANTICOAGULAN TS Active 07-10 00:00: 00 RECREATIONAL COUNSELOR (CURRENT) USE OF INHALED STEROIDS Active 07-10 00:00: 00 SNF (CURRENT) USE OF ASPIRIN Active 07-10 00:00: 00 RECREATIONAL COUNSELOR (CURRENT) USE OF ORAL HYPOGLYCEMIC DRUGS Active 07-10 00:00: 00 SNF (CURRENT) USE OF INSULIN Active 07-10 00:00: 00 PRSNL HX OF TIA (TIA), AND CEREB INFRC W/O RESID DEFICITS Active 07-10 00:00: 00 DEPENDENCE ON WHEELCHAIR Active 07-10 00:00: 00 Allergies, Adverse Reactions, Alerts Allergy Name Allergy Type Status Severity Reaction(s) Onset Date Inactive Date Treating Clinician Comments NKA Propensity to adverse reactions Inactive 11-09 22:27: 48 2021-11-07 7 00:00:00 SILVADENE Propensity to adverse reactions Active 11-23 19:26: 56 Medications Ordered Medication Name Filled Medication Name Start Date Stop Date Current Medication? Ordering Clinician Indication Dosage Frequency Signature (SIG) Comments Components Eliquis 5 mg tablet 16 00:00: 00 10-22 23:59 :00 No [id number] 1 tablet 2 TIMES DAILY 1 tablet 2 TIMES DAILY (route: oral) Med Classific ation: Hematolog ical Agents Humalog KwikPen (U-100) Insulin 100 unit/mL subcutaneou s 10-19 00:00: 00 11-09 00:00 :00 No [id number] Per instruc tions Per instructio ns (route: subcutaneo us) Med Classific ation: Endocrine Humalog KwikPen (U-100) Insulin 100 unit/mL subcutaneou s 10-19 00:00: 00 10-22 23:59 :00 No [id number] Per instruc tions DAILY Per instructio ns DAILY (route: subcutaneo us) Med Classific ation: Endocrine metformin 850 mg tablet 4-12 00:00: 00 10-22 23:59 :00 No [id number] 1 tablet 2 TIMES DAILY 1 tablet 2 TIMES DAILY (route: oral) Med Classific ation: Endocrine metformin 850 mg tablet 4-12 00:00: 00 11-09 00:00 :00 No [id number] Per instruc tions TWICE A DAY Per instructio ns TWICE A DAY (route: oral) Med Classific ation: Endocrine albuterol sulfate HFA 90 mcg/actuati on aerosol inhaler 4-11 00:00: 00 11-22 23:59 :00 No [id number] 2 puff EVERY 6 HOURS 2 puff EVERY 6 HOURS (route: inhalation ) Med Classific ation: Respirato ry Therapy Agents albuterol sulfate HFA 90 mcg/actuati on aerosol inhaler 4-11 00:00: 00 11-22 23:59 :00 No [id number] Per instruc tions EVERY 4 TO 6 HOURS NEEDED Per instructio ns EVERY 4 TO 6 HOURS NEEDED (route: inhalation ) Med Classific ation: Respirato ry Therapy Agents Lantus Solostar U-100 Insulin 100 unit/mL (3 mL) subcutaneou s pen 4-09 00:00: 00 11-09 00:00 :00 No [id number] Per instruc tions Per instructio ns (route: subcutaneo us) Med Classific ation: Endocrine Lantus Solostar U-100 Insulin 100 unit/mL (3 mL) subcutaneou s pen 4-09 00:00: 00 11-22 23:59 :00 No [id number] Per instruc tions DAILY Per instructio ns DAILY (route: subcutaneo us) Med Classific ation: Endocrine Flovent Diskus 100 mcg/actuati on powder for inhalation 3-23 00:00: 00 10-22 23:59 :00 No [id number] 1 inhalat ion 2 TIMES DAILY 1 inhalation 2 TIMES DAILY (route: inhalation ) Med Classific ation: Respirato ry Therapy Agents Flovent Diskus 100 mcg/actuati on powder for inhalation 3-23 00:00: 00 11-09 00:00 :00 No [id number] Per instruc tions EVERY DAY Per instructio ns EVERY DAY (route: inhalation ) Med Classific ation: Respirato ry Therapy Agents Aspirin Low Dose 81 mg tablet,ellis yed release 11-09 00:00: 00 10-22 23:59 :00 No [id number] 1 tablet DAILY 1 tablet DAILY (route: oral) Med Classific ation: Hematolog ical Agents furosemide 20 mg tablet 11-09 00:00: 00 11-22 23:59 :00 No [id number] 1 tablet DAILY 1 tablet DAILY (route: oral) Med Classific ation: Cardiovas cular Therapy Agents gabapentin 300 mg capsule 11-09 00:00: 00 10-22 23:59 :00 No [id number] 1 capsule 2 TIMES DAILY 1 capsule 2 TIMES DAILY (route: oral) Med Classific ation: Central Nervous System Agents lisinopril 5 mg tablet 11-09 00:00: 00 10-22 23:59 :00 No [id number] 1 tablet DAILY 1 tablet DAILY (route: oral) Med Classific ation: Cardiovas cular Therapy Agents metoprolol tartrate 50 mg tablet 11-09 00:00: 00 10-22 23:59 :00 No [id number] 1 tablet 2 TIMES DAILY 1 tablet 2 TIMES DAILY (route: oral) Med Classific ation: Cardiovas cular Therapy Agents simvastatin 40 mg tablet 11-09 00:00: 00 10-22 23:59 :00 No [id number] 1 tablet BEDTIME 1 tablet BEDTIME (route: oral) Med Classific ation: Cardiovas cular Therapy Agents cholecalcif mariela (vitamin D3) 25 mcg (1,000 unit) capsule 11-23 00:00: 00 10-22 23:59 :00 No [id number] 1 capsule DAILY 1 capsule DAILY (route: oral) Med Classific ation: Electroly te Balance-N utritiona l Products dextrometho rphan-guaif enesin 10 mg-100 mg/5 mL oral liquid 11-23 00:00: 00 12-18 23:59 :00 No [id number] 5 mL EVERY 4 HOURS 5 mL EVERY 4 HOURS (route: oral) Med Classific ation: Respirato ry Therapy Agents Flonase Allergy Relief 50 mcg/actuati on nasal spray,suspe nsion 11-23 00:00: 00 10-22 23:59 :00 No [id number] 1 spray 2 TIMES DAILY 1 spray 2 TIMES DAILY (route: nasal) Med Classific ation: Respirato ry Therapy Agents furosemide 40 mg tablet 11-23 00:00: 00 10-22 23:59 :00 No [id number] 1 tablet 2 TIMES DAILY 1 tablet 2 TIMES DAILY (route: oral) Med Classific ation: Cardiovas cular Therapy Agents Lantus Solostar U-100 Insulin 100 unit/mL (3 mL) subcutaneou s pen 11-23 00:00: 00 10-22 23:59 :00 No [id number] 62 unit DAILY 62 unit DAILY (route: subcutaneo ) Med Classific ation: Endocrine cefpodoxime 200 mg tablet 12-18 00:00: 00 10-22 23:59 :00 No [id number] 1 tablet 2 TIMES DAILY 1 tablet 2 TIMES DAILY (route: oral) Med Classific ation: Anti-Infe ctive Agents codeine 10 mg-guaifene sin 100 mg/5 mL oral liquid 12-18 00:00: 00 10-22 23:59 :00 No [id number] 10 mL EVERY 6 HOURS 10 mL EVERY 6 HOURS (route: oral) Med Classific ation: Respirato ry Therapy Agents doxycycline hyclate 100 mg capsule 12-18 00:00: 00 10-22 23:59 :00 No [id number] 1 capsule 2 TIMES DAILY 1 capsule 2 TIMES DAILY (route: oral) Med Classific ation: Anti-Infe ctive Agents prednisone 20 mg tablet 12-18 00:00: 00 10-22 23:59 :00 No [id number] 2 tablet DAILY 2 tablet DAILY (route: oral) Med Classific ation: Endocrine Vital Signs Vital Name Observation Time Observation Value Commen ts Temperature 2021-12-18 11:59:00.000 97.6 [degF] Temperature 2021-11-23 19:27:00.000 98 [degF] Temperature 2021-11-09 10:15:00.000 97.8 [degF] BMI (%) 2021-12-18 11:59:00.000 36 kg/m2 BMI (%) 2021-11-23 19:27:00.000 57 kg/m2 Height 2021-12-18 11:59:00.000 66 [in_us] Height 2021-11-23 19:27:00.000 66 [in_us] Height 2021-11-09 10:15:00.000 64 [in_us] Pulse 2021-12-18 11:59:00.000 64 /min Pulse 2021-11-23 19:27:00.000 84 /min Pulse 2021-11-09 10:15:00.000 90 /min O2 Saturation (%) 2021-12-18 11:59:00.000 94 % O2 Saturation (%) 2021-11-23 19:27:00.000 92 % O2 Saturation (%) 2021-11-09 10:15:00.000 98 % Respirations 2021-12-18 11:59:00.000 18 /min Respirations 2021-11-23 19:27:00.000 18 /min Respirations 2021-11-09 10:15:00.000 18 /min Weight (lbs) 2021-12-18 11:59:00.000 227 [lb_av] Weight (lbs) 2021-11-23 19:27:00.000 356 [lb_av] Systolic Blood Pressure 2021-12-18 11:59:00.000 186 mm [Hg] Systolic Blood Pressure 2021-11-23 19:27:00.000 118 mm [Hg] Systolic Blood Pressure 2021-11-09 10:15:00.000 118 mm [Hg] Diastolic Blood Pressure 2021-12-18 11:59:00.000 79 mm [Hg] Diastolic Blood Pressure 2021-11-23 19:27:00.000 68 mm [Hg] Diastolic Blood Pressure 2021-11-09 10:15:00.000 70 mm [Hg] Plan of Treatment Planned Activity Planned Date Details Comments Future Scheduled Test SKILLED NU RSE TO PERFORM GENERAL ASSESSMENT AND EVALUATE PATIENT, IDENTIFY PRIMARY AND CO-MORBID CONDITIONS, AND DEVELOP PATIENT SPECIFIC PLAN OF CARE THAT INCLUDES PATIENT GOAL FOR HOME HEALTH. CLINICAL SUMMARY SOC THE PATIENT IS RECEIVING HOMECARE DUE TO NEW ONSET/EXACERBATION OF: UTIS, LE CELLULITIS, RECENT HOSPITALIZATION/INPATIENT ADMISSION RELATED TO: FLANK PAIN, CHRONIC UTI, DM, NEW OR CHANGED MEDICATIONS PERTINENT TO THE PLAN OF CARE: NO E NOTED PATIENT LIVING SITUATION/CAREGIVER STATUS: ALONE, NO HELPERS RECENT FALLS: NA SKILLED TEACHING AND TRAINING, OBSERVATION AND ASSESSMENT, AND/OR TREATMENTS THAT REQUIRE SKILLED CARE: MED TEACH, DM MGMT, BLOOD SUGAR MONITORING ADDITIONAL DISCIPLINES NEEDED OR DECLINED ORDERED SERVICES: [code = SKILLED NURSE TO PERFORM GENERAL ASSESSMENT AND EVALUATE PATIENT, IDENTIFY PRIMARY AND CO-MORBID CONDITIONS, AND DEVELOP PATIENT SPECIFIC PLAN OF CARE THAT INCLUDES PATIENT GOAL FOR HOME HEALTH. CLINICAL SUMMARY SOC THE PATIENT IS RECEIVING HOMECARE DUE TO NEW ONSET/EXACERBATION OF: UTIS, LE CELLULITIS, RECENT HOSPITALIZATION/INPATIENT ADMISSION RELATED TO: FLANK PAIN, CHRONIC UTI, DM, NEW OR CHANGED MEDICATIONS PERTINENT TO THE PLAN OF CARE: NO E NOTED PATIENT LIVING SITUATION/CAREGIVER STATUS: ALONE, NO HELPERS RECENT FALLS: NA SKILLED TEACHING AND TRAINING, OBSERVATION AND ASSESSMENT, AND/OR TREATMENTS THAT REQUIRE SKILLED CARE: MED TEACH, DM MGMT, BLOOD SUGAR MONITORING ADDITIONAL DISCIPLINES NEEDED OR DECLINED ORDERED SERVICES: ] Future Scheduled Test SKILLED NU RSE FOR O/A OF LOWER EXTREMITIES TO IDENTIFY CHANGES OR LESIONS ASSOCIATED WITH DIABETES MELLITUS FOR EARLY INTERVENTIONS OF COMPLICATIONS. SKILLED NURSE TO PROVIDE INSTRUCTION ON PROPER DIABETIC SKIN/FOOT CARE. [code = SKILLED NURSE FOR O/A OF LOWER EXTREMITIES TO IDENTIFY CHANGES OR LESIONS ASSOCIATED WITH DIABETES MELLITUS FOR EARLY INTERVENTIONS OF COMPLICATIONS. SKILLED NURSE TO PROVIDE INSTRUCTION ON PROPER DIABETIC SKIN/FOOT CARE.] Future Scheduled Test SKILLED NU RSE TO REVIEW PATIENT MEDICATIONS. INSTRUCT PATIENT/CAREGIVER ON MONITORING OF EFFECTIVENESS, ADVERSE DRUG REACTIONS, SIDE EFFECTS OF ALL MEDICATIONS (PRESCRIPTION/-OTC), AND HOW AND WHEN TO REPORT PROBLEMS. [code = SKILLED NURSE TO REVIEW PATIENT MEDICATIONS. INSTRUCT PATIENT/CAREGIVER ON MONITORING OF EFFECTIVENESS, ADVERSE DRUG REACTIONS, SIDE EFFECTS OF ALL MEDICATIONS (PRESCRIPTION/-OTC), AND HOW AND WHEN TO REPORT PROBLEMS.] Future Scheduled Test SKILLED NU RSE TO PERFORM HOME SAFETY AND FALL ASSESSMENT AND PROVIDE INSTRUCTION TO IMPLEMENT HOME SAFETY AND FALL PREVENTION STRATEGIES. [code = SKILLED NURSE TO PERFORM HOME SAFETY AND FALL ASSESSMENT AND PROVIDE INSTRUCTION TO IMPLEMENT HOME SAFETY AND FALL PREVENTION STRATEGIES.] Future Scheduled Test SKILLED NU RSE TO OBTAIN PULSE OXIMETRY MEASUREMENT PRN FOR SIGNS AND SYMPTOMS OF SHORTNESS OF BREATH, ACTIVITY INTOLERANCE AND WHEN OXYGEN IS ORDERED. [code = SKILLED NURSE TO OBTAIN PULSE OXIMETRY MEASUREMENT PRN FOR SIGNS AND SYMPTOMS OF SHORTNESS OF BREATH, ACTIVITY INTOLERANCE AND WHEN OXYGEN IS ORDERED.] Future Scheduled Test SKILLED NU RSE MAY OBTAIN U/A AND CS PRN IF INDICATED FOR SIGNS AND SYMPTOMS OF UTI INCLUDING URINARY URGENCY/FREQUENCY, DYSURIA, FOUL ODOR, HEMATURIA, AND/OR FEVER. [code = SKILLED NURSE MAY OBTAIN U/A AND CS PRN IF INDICATED FOR SIGNS AND SYMPTOMS OF UTI INCLUDING URINARY URGENCY/FREQUENCY, DYSURIA, FOUL ODOR, HEMATURIA, AND/OR FEVER.] Future Scheduled Test PATIENT PIEDRA S A RISK OF REHOSPITALIZATION. SKILLED NURSE TO ESTABLISH SUPPORT MEASURES TO MINIMIZE RISK OF REHOSPITALIZATION, AND INSTRUCT PATIENT/CAREGIVER ON METHODS TO REDUCE AVOIDABLE HOSPITALIZATION. [code = PATIENT HAS A RISK OF REHOSPITALIZATION. SKILLED NURSE TO ESTABLISH SUPPORT MEASURES TO MINIMIZE RISK OF REHOSPITALIZATION, AND INSTRUCT PATIENT/CAREGIVER ON METHODS TO REDUCE AVOIDABLE HOSPITALIZATION.] Future Scheduled Test SKILLED NU RSE TO PROVIDE INSTRUCTION TO PATIENT/CAREGIVER RELATED TO DISCHARGE PLANNING. [code = SKILLED NURSE TO PROVIDE INSTRUCTION TO PATIENT/CAREGIVER RELATED TO DISCHARGE PLANNING. ] Future Scheduled Test SKILLED NU RSE FOR O/A, TEACHING, AND MANAGEMENT OF AORTIC STENOSIS. [code = SKILLED NURSE FOR O/A, TEACHING, AND MANAGEMENT OF AORTIC STENOSIS.] Future Scheduled Test SKILLED NU RSE FOR OBSERVATION AND ASSESSMENT OF PATIENTS PAIN LEVEL AND EFFECTIVENESS OF PAIN MANAGEMENT REGIMEN. SKILLED NURSE TO INSTRUCT PATIENT/CAREGIVER REGARDING PHARMACOLOGIC AND NON-PHARMACOLOGIC PAIN CONTROL MEASURES. SKILLED NURSE TO REPORT TO PHYSICIAN IF PAIN IS UNCONTROLLED WITH CURRENT PAIN MANAGEMENT REGIMEN. [code = SKILLED NURSE FOR OBSERVATION AND ASSESSMENT OF PATIENTS PAIN LEVEL AND EFFECTIVENESS OF PAIN MANAGEMENT REGIMEN. SKILLED NURSE TO INSTRUCT PATIENT/CAREGIVER REGARDING PHARMACOLOGIC AND NON-PHARMACOLOGIC PAIN CONTROL MEASURES. SKILLED NURSE TO REPORT TO PHYSICIAN IF PAIN IS UNCONTROLLED WITH CURRENT PAIN MANAGEMENT REGIMEN.] Future Scheduled Test SKILLED NU RSE TO INSTRUCT PATIENT/CAREGIVER AND PERFORM CARE AND MANAGEMENT OF INDWELLING URINARY CATHETER. CATHETER INSERTION WITH 24 FR CATHETER WITH 30ML BALLOON, CHANGE Q MONTH) AND PRN FOR LEAKING OR MALFUNCTIONING CATHETER. IRRIGATE URINARY CATHETER WITH 30-60CC NORMAL SALINE PRN BLOCKAGE/LEAKAGE, HEAVY SEDIMENT. 1 - 3 PRN [facility] VISITS FOR CATHETER CHANGE(S) AND/OR TROUBLESHOOTING. [code = SKILLED NURSE TO INSTRUCT PATIENT/CAREGIVER AND PERFORM CARE AND MANAGEMENT OF INDWELLING URINARY CATHETER. CATHETER INSERTION WITH 24 FR CATHETER WITH 30ML BALLOON, CHANGE Q MONTH) AND PRN FOR LEAKING OR MALFUNCTIONING CATHETER. IRRIGATE URINARY CATHETER WITH 30-60CC NORMAL SALINE PRN BLOCKAGE/LEAKAGE, HEAVY SEDIMENT. 1 - 3 PRN [facility] VISITS FOR CATHETER CHANGE(S) AND/OR TROUBLESHOOTING.] Future Scheduled Test SKILLED NU RSE FOR O/A, TEACHING AND MANAGEMENT OF RECURRENT UTI FOR EARLY IDENTIFICATION OF EXACERBATION OF DISEASE PROCESS [code = SKILLED NURSE FOR O/A, TEACHING AND MANAGEMENT OF RECURRENT UTI FOR EARLY IDENTIFICATION OF EXACERBATION OF DISEASE PROCESS] Future Scheduled Test OCCUPATION AL THERAPIST TO EVALUATE PATIENT FOR DME, UPPER BODY WEAKNESS [code = OCCUPATIONAL THERAPIST TO EVALUATE PATIENT FOR DME, UPPER BODY WEAKNESS ] Future Scheduled Test SKILLED NU RSE TO INSTRUCT/REINFORCE MEASURES TO PREVENT BARRIERS TO CARE. [code = SKILLED NURSE TO INSTRUCT/REINFORCE MEASURES TO PREVENT BARRIERS TO CARE.] Future Scheduled Test SKILLED NU RSE TO PERFORM AND RECORD BLOOD SUGAR READING EACH VISIT , AND PRN FOR SIGNS AND SYMPTOMS OF HYPO/HYPERGLYCEMIA. [code = SKILLED NURSE TO PERFORM AND RECORD BLOOD SUGAR READING EACH VISIT , AND PRN FOR SIGNS AND SYMPTOMS OF HYPO/HYPERGLYCEMIA.] Future Scheduled Test SKILLED NU RSE TO ASSESS HOME SAFETY FOR PATIENT WITH IMPAIRED VISION D/T GLAUCOM (LEFT EYE BLINDNESS) AND INSTRUCT PATIENT/CAREGIVER ON SAFETY TECHNIQUES FOR ADLS AND IADLS, MEDICATION MANAGEMENT, AND HOME ADAPTATION. 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 [code = INSTRUCTED PATIENT/CAREGIVER ON SIGNS AND SYMPTOMS, RISK FACTORS, COMPLICATIONS, AND MANAGEMENT OF ATRIAL FIBRILLATION.] Future Scheduled Test SKILLED NU RSE TO PROVIDE TEACHING ON SIGNS AND SYMPTOMS AND MANAGEMENT OF HYPERTENSION. [code = SKILLED NURSE TO PROVIDE TEACHING ON SIGNS AND SYMPTOMS AND MANAGEMENT OF HYPERTENSION.] Future Scheduled Test SKILLED NU RSE FOR O/A AND SKILLED TEACHING RELATED TO ALTERED SKIN INTEGRITY CELLULITIS. [code = SKILLED NURSE FOR O/A AND SKILLED TEACHING RELATED TO ALTERED SKIN INTEGRITY CELLULITIS.] Future Scheduled Test SKILLED NU RSE TO INSTRUCT PATIENT/CAREGIVER ON COPD TO INCLUDE TEACHING AND SELF-MANAGEMENT RELATED TO COPD DISEASE PROCESS, SIGNS AND SYMPTOMS, AND COMPLICATIONS. [code = SKILLED NURSE TO INSTRUCT PATIENT/CAREGIVER ON COPD TO INCLUDE TEACHING AND SELF-MANAGEMENT RELATED TO COPD DISEASE PROCESS, SIGNS AND SYMPTOMS, AND COMPLICATIONS.] Future Scheduled Test SKILLED NU RSE FOR O/A, TEACHING AND SELF-MANAGEMENT RELATED TO HEART FAILURE. INSTRUCT PATIENT/CAREGIVER ON SIGNS AND SYMPTOMS OF EXACERBATION TO REPORT. WEIGHT TO BE OBTAINED DAILY AND WEIGHT GAIN OF 2LB OVERNIGHT OR 5LB IN 1 WEEK TO BE REPORTED TO PHYSICIAN. [code = SKILLED NURSE FOR O/A, TEACHING AND SELF-MANAGEMENT RELATED TO HEART FAILURE. INSTRUCT PATIENT/CAREGIVER ON SIGNS AND SYMPTOMS OF EXACERBATION TO REPORT. WEIGHT TO BE OBTAINED DAILY AND WEIGHT GAIN OF 2LB OVERNIGHT OR 5LB IN 1 WEEK TO BE REPORTED TO PHYSICIAN.] Future Scheduled Test SKILLED NU RSE TO INSTRUCT PATIENT/CAREGIVER ON WARNING SIGNS OF CVA, RISK FACTORS, AND METHODS TO MANAGE SNF EFFECTS OF CVA. [code = SKILLED NURSE TO INSTRUCT PATIENT/CAREGIVER ON WARNING SIGNS OF CVA, RISK FACTORS, AND METHODS TO MANAGE RECREATIONAL COUNSELOR EFFECTS OF CVA.] Future Scheduled Test SKILLED NU RSE FOR O/A AND TEACHING OF DIABETIC MANAGEMENT INCLUDING BLOOD SUGAR MONITORING/USE OF GLUCOMETER, DIABETIC DIET, LOWER EXTREMITY SKIN INSPECTION, PROPER SKIN/FOOT CARE, AND SIGNS AND SYMPTOMS HYPO/HYPERGLYCEMIA TO REPORT AND METHODS TO MANAGE). [code = SKILLED NURSE FOR O/A AND TEACHING OF DIABETIC MANAGEMENT INCLUDING BLOOD SUGAR MONITORING/USE OF GLUCOMETER, DIABETIC DIET, LOWER EXTREMITY SKIN INSPECTION, PROPER SKIN/FOOT CARE, AND SIGNS AND SYMPTOMS HYPO/HYPERGLYCEMIA TO REPORT AND METHODS TO MANAGE).] Future Scheduled Test SKILLED NU RSE FOR O/A AND SKILLED TEACHING RELATED TO SIGNS AND SYMPTOMS AND MANAGEMENT OF OA. [code = SKILLED NURSE FOR O/A AND SKILLED TEACHING RELATED TO SIGNS AND SYMPTOMS AND MANAGEMENT OF OA.] Goal 2021-11-23 Patient Goal - AVOID UTIS, Goal 2021-12-18 Patient Goal - AVOID UTIS, Goal 2021-12-22 Patient Goal - AVOID UTIS, Goal Provider Goal - A PLAN OF CARE WILL BE ESTABLISHED THAT MEETS PATIENT'S [facility] NEEDS AND INCLUDES PATIENT GOAL FOR HOME HEALTH. Goal Provider Goal - CHANGES IN LOWER EXTREMITIES WILL BE IDENTIFIED AND REPORTED TO MD FOR PROMPT INTERVENTION TO PREVENT ASSOCIATED RISKS THROUGHOUT THE CERTIFICATION PERIOD. PATIENT/CAREGIVER WILL VERBALIZE UNDERSTANDING OF PROPER DIABETIC SKIN/FOOT CARE BY THE END OF THE CERTIFICATION PERIOD. Goal Provider Goal - PATIENT/CAREGIVER WILL VERBALIZE UNDERSTANDING OF EDUCATION PROVIDED ON MEDICATIONS BY THE END OF THE CERTIFICATION PERIOD. Goal Provider Goal - PATIENT/CAREGIVER WILL VERBALIZE/DEMONSTRATE EFFECTIVE HOME SAFETY AND FALL PREVENTION STRATEGIES THROUGHOUT CERTIFICATION PERIOD. Goal Provider Goal - PULSE OXIMETER RESULTS OBTAINED NEEDED FOR RESPIRATORY COMPLICATIONS. Goal Provider Goal - URINE SPECIMEN OBTAINED THIS VISIT FOR U/A AND CS. RESULTS TO BE REPORTED TO PHYSICIAN. Goal Provider Goal - PATIENT WILL HAVE SUPPORT MEASURES ESTABLISHED TO PREVENT REHOSPITALIZATION AND PATIENT/CAREGIVER WILL VERBALIZE/DEMONSTRATE METHODS TO REDUCE AVOIDABLE HOSPITALIZATION BY END OF EPISODE. Goal Provider Goal - PATIENT/CAREGIVER WILL VERBALIZE UNDERSTANDING OF DISCHARGE PLANNING INSTRUCTIONS BY DATE OF DISCHARGE. Goal Provider Goal - PATIENT/CAREGIVER WILL VERBALIZE/DEMONSTRATE MANAGEMENT OF CARDIAC DISEASE PROCESS AND EXACERBATIONS WILL BE IDENTIFIED AND PROMPTLY REPORTED THROUGHOUT THE CERTIFICATION PERIOD. Goal Provider Goal - PATIENT/CAREGIVER WILL DEMONSTRATE UNDERSTANDING OF PHARMACOLOGIC AND NONPHARMACOLOGIC PAIN CONTROL MEASURES AND PATIENT WILL HAVE IMPROVEMENT IN PAIN INTERFERING WITH ACTIVITY EVIDENCED BY PAIN CONTROLLED AT LEVEL OF 7 OR LESS BY END OF CERTIFICATION PERIOD. Goal Provider Goal - PATIENT WILL VERBALIZE TOLERANCE OF CATHETER CHANGE AND KNOWLEDGE OF REQUIRED CARE TO MANAGE INDWELLING URINARY CATHETER WITHOUT COMPLICATIONS BY THE END OF THE CERTIFICATION PERIOD. Goal Provider Goal - PATIENT/CAREGIVER WILL VERBALIZE UNDERSTANDING OF GENITOURINARY DISEASE PROCESS, AND EXACERBATIONS OF GENITOURINARY DISEASE WILL BE PROMPTLY IDENTIFIED FOR EARLY INTERVENTION THROUGHOUT THE CERTIFICATION PERIOD. Goal Provider Goal - OCCUPATIONAL THERAPY EVALUATION TO BE COMPLETED WITH RECOMMENDATIONS AND WRITTEN PLAN OF TREATMENT ESTABLISHED FOR THE PHYSICIANS SIGNATURE. Goal Provider Goal - PATIENT / CAREGIVER WILL VERBALIZE UNDERSTANDING OF BARRIERS PREVENTING PROPER CARE AND DEMONSTRATE MEASURES TO ELIMINATE THOSE BARRIERS DURING THIS EPISODE. Goal Provider Goal - BLOOD SUGAR READING WILL BE OBTAINED ORDERED. Goal Provider Goal - PATIENT/CAREGIVER WILL BE ABLE TO APPLY PRINCIPLES OF ENVIRONMENTAL MODIFICATION TO MAINTAIN THE LEVEL OF SAFETY FOR THE LOW VISION PATIENT WITHIN THE HOME SETTING AND PREVENT FALL/INJURY BY END OF EPISODE. Goal Provider Goal - PATIENT/CAREGIVER WILL VERBALIZE UNDERSTANDING OF PRESSURE ULCER PREVENTION BY ENDOFCERTIFICATIONPERIOD. Goal Provider Goal - PATIENT/CAREGIVER WILL VERBALIZE UNDERSTANDING OF SIGNS AND SYMPTOMS, COMPLICATIONS, AND MANAGEMENT OF ATRIAL FIBRILLATION BY END OF EPISODE. Goal Provider Goal - PATIENT/CAREGIVER WILL VERBALIZE SIGNS AND SYMPTOMS OF HYPERTENSION AND WILL BE ABLE TO DEMONSTRATE ABILITY TO MANAGE EXACERBATION BY END OF CERTIFICATION PERIOD Goal Provider Goal - PATIENT/CAREGIVER WILL VERBALIZE/DEMONSTRATE UNDERSTANDING OF TEACHING RELATED TO ALTERED SKIN INTEGRITY BY END OF CERTIFICATION PERIOD. Goal Provider Goal - PATIENT/CAREGIVER WILL VERBALIZE/DEMONSTRATE KNOWLEDGE AND MANAGEMENT OF COPD BY END OF EPISODE. Goal Provider Goal - PATIENT/CAREGIVER WILL VERBALIZE/DEMONSTRATE KNOWLEDGE AND MANAGEMENT OF HEART FAILURE DISEASE PROCESS BY END OF EPISODE. Goal Provider Goal - PATIENT/CAREGIVER WILL DEMONSTRATE COMPLIANCE WITH TREATMENT REGIME AND VERBALIZE SIGNS AND SYMPTOMS TO REPORT WELL POSSIBLE COMPLICATIONS OF CVA BY END OF EPISODE. Goal Provider Goal - PATIENT/CAREGIVER WILL VERBALIZE/DEMONSTRATE KNOWLEDGE OF DIABETIC MANAGEMENT. CHANGES IN DIABETIC STATUS WILL BE IDENTIFIED AND REPORTED TO PHYSICIAN FOR PROMPT INTERVENTION THROUGHOUT THE CERTIFICATION PERIOD. Goal Provider Goal - PATIENT/CAREGIVER WILL VERBALIZE UNDERSTANDING OF MUSCULOSKELETAL DISEASE INCLUDING SIGNS AND SYMPTOMS, MANAGEMENT, AND PRESCRIBED TREATMENT REGIMEN BY END OF EPISODE. Reason for Visit TOTALLY DEPENDENT Encounters Start Date/Time End Date/Time Encounter Type Admission Type Attending [facility] Care Department Encounter ID Discharge Date Discharge Status Discharge Condition Discharge Reason Percent Goals Met 2021-11-09 00:00:00 2021-12-22 00:00:00 Outpatient NEW ADMISSION LILY ARAYA [facility] [id number] 00:00:00 DISCHARGE TO HOME OR SELF CARE TOTALLY DEPENDENT PER CLIENT REQUEST 71.05
[2024-06-25 21:38] LABS: MANUAL DIFF FLAG NO
[2024-06-25 21:40] LABS: Basophils Percent Auto 0.1 % (0-2); Eosinophils Absolute Auto 0.2 X10*3/uL (0.0-0.4); Eosinophils Percent Auto 2.5 % (0-4); Hematocrit 39.2 % (37.0-47.0); Hemoglobin 12.5 g/dl (12.0-16.0); Imm Gran Abs Auto 0.02 X10*3/uL (0.00-0.03); Imm Gran Pct Auto 0.3 % (0.0-0.4); Lymphocytes Absolute Auto 1.1 X10*3/uL (1.2-4.9); Lymphocytes Percent Auto 16.2 % (20-40); Mean Corpuscular HGB Conc 31.9 g/dl (31.0-35.0); Mean Corpuscular Volume 81.5 fL (80.0-98.0); Mean Platelet Volume 10.2 fL (9.4-12.3); Monocytes Absolute Auto 0.5 X10*3/uL (0.1-1.2); Monocytes Percent Auto 7.9 % (2-11); Neutrophils Absolute Auto 4.9 x10*3/uL (2.0-8.3); Platelet Count 198 X10*3/uL (160-400); Red Blood Count 4.81 X10*6/uL (4.20-5.50); Red Cell Distribution Width 15.9 % (11.0-16.0); White Blood Count 6.7 X10*3/uL (4.8-10.8)
--- NOTE | 2024-06-25 21:47 | PC.NURSE ---
Notified Dr neol of POC of 451. verbal read back order placed. IV line placed in L forearm. medication administer as per sep.
[2024-06-25 22:11] LABS: VBG Base Excess 22.8 mmol/L; VBG HCO3 53 mmol/L (22-26); VBG pCO2 83 mmHg; VBG pH 7.41 (7.32-7.43); VBG pO2 51 mmHg
[2024-06-25 22:15] LABS: Venous Blood Gas Refer to POC result
[2024-06-25 22:19] LABS: Glucose, Whole Blood 350 mg/dL (60-115)
--- NOTE | 2024-06-25 22:22 | PC.NURSE ---
POC 350, notified provider. new orders placed
[2024-06-25 22:26] LABS: Alanine Aminotransferase 25 U/L (0-31); Albumin Level 3.4 g/dL (3.5-5.0); Alkaline Phosphatase 129 U/L (39-117); Anion Gap 7 (12-20); Aspartate Amino Transferase 27 U/L (5-31); Bilirubin Total 0.4 mg/dL (0.0-1.0); Blood Urea Nitrogen 12 mg/dL (9-16); Calcium 9.2 mg/dL (8.4-10.2); Carbon Dioxide 45 mmol/L (22-29); Chloride 83 mmol/L (96-108); Creatinine Clr Calc Pharmacy 107.1; Estimated Glomerular Filt Rate > 60; Glucose Random 377 mg/dL (60-115); Lipase 13 U/L (8-78); Potassium 3.2 mmol/L (3.3-5.1); Sodium 132 mmol/L (135-145); Total Protein 6.5 g/dL (6.5-8.0)
[2024-06-25 22:37] LABS: Beta-Hydroxybutyrate 0.28 mmol/L (0.02-0.27)
[2024-06-25 23:40] LABS: Glucose, Whole Blood 271 mg/dL (60-115)
[2024-06-25 23:51] VITALS: BP 164/54; PULSE 73; RESP 17; TEMP 36.6; O2SAT 99
[2024-06-25 23:55] LABS: Appearance Urine Cloudy; Color Urine Yellow; Glucose Urine UA 500 mg/dL (Negative); Leukocyte Esterase Urine Moderate (2+) (Negative); Nitrite Urine Negative (Negative); PH 7.5 (5.0-9.0); UMIC TRIGGER UACC YES; Urine Blood Negative (Negative); Urine Ketones Negative (Negative); Urine Protein Negative (Neg-Trace)
[2024-06-26 00:10] LABS: Bacteria Urine 4+ (None Seen); Hyaline Casts Urine 0-2 /LPF (0-2); RBC Urine 0-2 /HPF (0-2); Squamous Epithelial Cell Urine 0-2 /HPF (0-2); UACC Culture Trigger YES
--- NOTE | 2024-06-26 00:18 | ED.GENADULT ---
HPI - General Adult General Chief complaint: General Medical Stated complaint: HIGH BGL *458, CONSTIPATION X4DAYS Time Seen by Provider: 06/25/24 22:19 Source: patient and EMS Mode of arrival: EMS Limitations: no limitations History of Present Illness ED Provider: Dr. Lyn Nunez HPI narrative: patient comes to the emergency room complaining of high blood sugar. Patient states that she was recently discharged from a rehab. Usually her blood glucose is well controlled, unclear what happened today. Patient also complaining of constipation for 4 days. Patient states that she has good care at home, diagnostic assistant would take care of her starting in 5 in the morning. Patient denies fever chills. Related Data Home Medications ?Medication ?Instructions ?Recorded ?Confirmed albuterol sulfate 90 mcg/actuation 2 puff inhalation Q4-6H PRN 01/23/21 10/26/23 aerosol inhaler (Proventil HFA) Wheezing apixaban 5 mg tablet (Eliquis) 5 mg PO BID 01/23/21 01/08/24 aspirin 81 mg tablet,delayed 81 mg PO DAILY 10/24/21 01/08/24 release insulin glargine 100 unit/mL (3 70 unit subcut DAILY 10/24/21 01/08/24 mL) subcutaneous pen (Lantus Solostar U-100 Insulin) furosemide 40 mg tablet 80 mg PO DAILY 03/09/22 01/08/24 dulaglutide 0.75 mg/0.5 mL 0.75 mg subcut TU 10/23/22 10/26/23 subcutaneous pen injector (Trulicity) insulin lispro 100 unit/mL 1 sliding scale dose subcut QIDACHS 10/23/22 01/08/24 subcutaneous pen (Humalog KwikPen (U-100) Insulin) acetaminophen 325 mg tablet 650 mg PO Q6H PRN Pain 01/27/23 01/08/24 ergocalciferol (vitamin D2) 1,250 1,250 mcg PO TH 01/27/23 01/08/24 mcg (50,000 unit) capsule fluticasone furoate 200 1 ea inhalation DAILY 01/27/23 10/26/23 mcg-vilanterol 25 mcg/dose inhalation powder (Breo Ellipta) gabapentin 300 mg capsule 300 mg PO BID 01/27/23 01/08/24 montelukast 10 mg tablet 10 mg PO BEDTIME 01/27/23 01/08/24 oxybutynin chloride 5 mg 5 mg PO BEDTIME 01/27/23 01/08/24 tablet,extended release 24 hr losartan 25 mg tablet 25 mg PO DAILY 10/26/23 01/08/24 metoprolol succinate 50 mg 50 mg PO DAILY 10/26/23 01/08/24 tablet,extended release 24 hr lisinopril 5 mg tablet 5 mg PO DAILY 12/01/23 01/08/24 Previous Rx's ?Medication ?Instructions ?Recorded albuterol sulfate 2.5 mg/3 mL 2.5 mg (3 mL) inhalation Q4-6H PRN 07/25/22 (0.083 %) solution for nebulization shortness of breath or wheezing #75 mL albuterol sulfate 90 mcg/actuation 2 puff inhalation Q6H PRN 10/26/23 aerosol inhaler shortness of breath or wheezing #8.5 grams doxycycline hyclate 100 mg tablet 100 mg PO BID #14 tabs 10/26/23 guaifenesin 200 mg/5 mL oral liquid 200 mg (5 mL) PO Q4H PRN cough 10/26/23 #118 mL prednisone 20 mg tablet 20 mg PO BID #10 tabs 10/26/23 nitrofurantoin 100 mg PO Q12H 7 days #14 caps 06/26/24 monohydrate/macrocrystals 100 mg capsule (Macrobid) Allergies Allergy/AdvReac Type Severity Reaction Status Date / Time silver sulfadiazine Allergy Unknown UNK Verified 06/25/24 21:18 [From TRINY] Review of Systems Review of Systems: Constitutional : No Weight loss, No Fever, No Chills, No Night Sweats, No Fatigue, No Malaise ENT/Mouth : No Hearing loss, No Ear Pain, No Nasal Congestion, No Sinus Pain, No Hoarseness, No sore throat, No Rhinorrhea, No Swallowing Difficulty Eyes: No Eye Pain, No Swelling, No Redness, No Foreign Body, No Discharge, No Vision Changes Cardiovascular : No Chest Pain, No SOB, No Dyspnea on Exertion, No Orthopnea, No Edema, No Palpitations Respiratory : No Cough, No Sputum, No Wheezing, No Smoke Exposure, No Dyspnea Gastrointestinal : No Nausea, No Vomiting, No Diarrhea, Complaining of constipation, No abdominal Pain, No Hematochezia, No Melena Genitourinary : no irregular bleeding, No Dysuria, No Urinary Frequency, No Hematuria, No Urinary Incontinence, No Urgency, No Flank Pain, No Urinary Flow Changes, No Hesitancy Musculoskeletal : No joint pain, No Myalgias, No Joint Swelling Skin : No Skin Lesions, No rash Neuro : No Weakness, No Numbness, No Paresthesias, No Loss of Consciousness, No Dizziness, No Headache Psych : No Anxiety/Panic, No Depression, No SI/HI/AH/VH, No Social Issues, Heme/Lymph: No Bruising, No Bleeding,No Lymphadenopathy Endocrine : No Polyuria, No Polydipsia, No Temperature Intolerance, complaining of high blood glucose [facility] Past Medical History Medical History Chronic hypoxemic respiratory failure Obstructive sleep apnea Hypotonic neurogenic bladder Chronic heart failure with preserved ejection fraction (HFpEF) Diarrhea Bacteriuria Chronic UTI UTI (urinary tract infection) Non-rheumatic aortic stenosis Aortic stenosis Paroxysmal atrial fibrillation H/O: CVA (cerebrovascular accident) Glaucoma Severe sepsis Obesity Osteoarthritis COPD (chronic obstructive pulmonary disease) Chronic UTI Chronic indwelling Molina catheter Diabetes Hypertension Congestive heart failure Surgical History H/O enucleation of left eyeball H/O adenoidectomy History of tonsillectomy Family History Family History Father No problems noted. Mother No problems noted. Social History Social History Household Members: None Housing: Apartment Do you presently have visiting nurse or other home services: Yes (care givers) Unable to assess alcohol history related to: Unknown Alcohol intake: former Patient Tobacco Use Status: Never used Tobacco Smoked in Last 30 Days: No Second Hand Smoke Exposure: No Use of substances other than those prescribed or required for medical reasons: No Advance Directives: Yes Advance Directives on File: Yes Advance Directives Date on File: 07/09/20 Do you have a plan to hurt others: No Plan service: No Current occupational status: disabled Physical Exam ED Vital Signs: Vital Signs - 24 hr 06/25/24 21:12 06/25/24 21:20 06/25/24 23:51 Temperature 98 F 98.0 F 97.8 F Pulse Rate 74 74 73 Respiratory Rate 28 H 28 H 17 Blood Pressure 175/67 H 175/67 H 164/54 H Pulse Oximetry 92 92 99 Oxygen Delivery Method Nasal Cannula Room Air Room Air 06/26/24 02:07 Temperature 97.9 F Pulse Rate 69 Respiratory Rate 20 Blood Pressure 171/71 H Pulse Oximetry 97 Oxygen Delivery Method Room Air BMI result Body Mass Index 49.1 Const Other: Appearance: Alert. Oriented X3. No acute distress. Eyes: Pupils equal, round and reactive to light. ENT: Pharynx normal. Neck: Normal inspection. Neck supple. No lymph nodes noted. No crepitus CVS: Normal heart rate and rhythm. Pulses normal. Normal S1 and S2 Respiratory: No respiratory distress. Breath sounds normal. No Wheezing. No rales Abdomen: Soft and nontender. No rigidity. No distention. Skin: Skin warm and dry. Normal skin color. Normal skin turgor. Extremities: No lower extremity edema. No Lacerations. No Rash Neuro: Oriented X 3. No motor deficit. No sensory deficit. Moving all extremities. No slurred speech. CN 2 through 12 grossly intact Psych: calm, cooperative, normal affect Medications Administered Discontinued Medications Generic Name Dose Route Start Last Admin Trade Name Angeles PRN Reason Stop Dose Admin Insulin Human Regular 10 unit 06/25/24 21:25 06/25/24 21:35 Insulin Regular, Human 100 Unit/Ml 10 Ml Vial IVPUSH 06/25/24 21:26 10 unit ONCE ONE Administration Insulin Human Regular 10 unit 06/25/24 22:19 06/25/24 22:35 Insulin Regular, Human 100 Unit/Ml 10 Ml Vial IVPUSH 06/25/24 22:20 10 unit ONCE ONE Administration Medical Decision Making Medical Decision Making MDM Narrative: my interpretation of labs: At baseline hematology , chemistry shows sodium of 132, corrected sodium within normal limits, for a glucose of 377. Patient's potassium 3.2, repleted p.o., glucose of 377. urinalysis positive, patient has a Molina catheter. Patient states that she does not have any dysuria but has noticed that the urine smells stronger than usual. Denies any flank pain fever chills. I reviewed patient's records, in March of 2024 patient had a UTI, E coli, susceptible to nitrofurantoin and resistant to all the other antibiotics - Patient received 20 units of insulin, patient has history of CHF, also patient received p.o. potassium and nitrofurantoin. - Overall patient states that she feels much better. Ready to be discharged home, patient states that she has plenty of services at home Differential Diagnosis Differential Diagnoses: The differential diagnosis associated with the presentation includes ( hyperglycemia, UTI, hypokalemia) Admission/Observation Consideration of admission/observation: Escalation of care including admission/observation considered ( given patient's past medical history, comorbidities and presentation, observation was considered) Lab Data MDM Lab Attestation statement: I reviewed the patient's lab results. 06/25/24 21:30 06/25/24 22:01 Labs: Lab Results 06/25/24 06/25/24 06/25/24 Range/Units 21:19 21:30 22:01 WBC 6.7 (4.8-10.8) X10*3/uL RBC 4.81 (4.20-5.50) X10*6/uL Hgb 12.5 (12.0-16.0) g/dl Hct 39.2 (37.0-47.0) % MCV 81.5 (80.0-98.0) fL MCH 26.0 L (27.0-33.0) pg MCHC 31.9 (31.0-35.0) g/dl RDW 15.9 (11.0-16.0) % Plt Count 198 (160-400) X10*3/uL MPV 10.2 (9.4-12.3) fL Immature Gran % (Auto) 0.3 (0.0-0.4) % Neut % (Auto) 73.0 (45-73) % Lymph % (Auto) 16.2 L (20-40) % [place] % (Auto) 7.9 (2-11) % Eos % (Auto) 2.5 (0-4) % Baso % (Auto) 0.1 (0-2) % Lymph # (Auto) 1.1 L (1.2-4.9) X10*3/uL [place] # (Auto) 0.5 (0.1-1.2) X10*3/uL Eos # (Auto) 0.2 (0.0-0.4) X10*3/uL Baso # (Auto) 0.0 (0.0-0.2) X10*3/uL Abs Immat Gran (auto) 0.02 (0.00-0.03) X10*3/uL Absolute Neuts (auto) 4.9 (2.0-8.3) x10*3/uL Absolute Nucleated RBC 0.000 (0.0-0.012) X10*3/uL Nucleated RBC % (auto) 0.0 (0.0-0.2) /100WBC VBG pH (7.32-7.43) VBG pCO2 mmHg VBG pO2 mmHg VBG HCO3 (22-26) mmol/L VBG O2 Saturation % VBG Base Excess mmol/L Sodium 132 L (135-145) mmol/L Potassium 3.2 L (3.3-5.1) mmol/L Chloride 83 L (96-108) mmol/L Carbon Dioxide 45 H* D (22-29) mmol/L Anion Gap 7 L (12-20) BUN 12 (9-16) mg/dL Creatinine 0.68 (0.5-1.4) mg/dL Estim Creat Clear Calc 107.1 Estimated GFR > 60 POC Glucose 415 H* (60-115) mg/dL Random Glucose 377 H* (60-115) mg/dL Calcium 9.2 (8.4-10.2) mg/dL Total Bilirubin 0.4 (0.0-1.0) mg/dL AST 27 (5-31) U/L ALT 25 (0-31) U/L Alkaline Phosphatase 129 H (39-117) U/L Total Protein 6.5 (6.5-8.0) g/dL Albumin 3.4 L (3.5-5.0) g/dL Lipase 13 (8-78) U/L Beta-Hydroxybutyrate 0.28 H (0.02-0.27) mmol/L Urine Color Urine Appearance Urine pH (5.0-9.0) Ur Specific [place] (1.005-1.025) Urine Protein (Neg-Trace) mg/dL Urine Glucose (UA) (Negative) mg/dL Urine Ketones (Negative) mg/dL Urine Blood (Negative) Urine Nitrite (Negative) Ur Leukocyte Esterase (Negative) Urine RBC (0-2) /HPF Urine WBC (0-5) /HPF Ur Squamous Epith Cells (0-2) /HPF Urine Bacteria (None Seen) Hyaline Casts (0-2) /LPF 06/25/24 06/25/24 06/25/24 Range/Units 22:06 22:15 23:35 WBC (4.8-10.8) X10*3/uL RBC (4.20-5.50) X10*6/uL Hgb (12.0-16.0) g/dl Hct (37.0-47.0) % MCV (80.0-98.0) fL MCH (27.0-33.0) pg MCHC (31.0-35.0) g/dl RDW (11.0-16.0) % Plt Count (160-400) X10*3/uL MPV (9.4-12.3) fL Immature Gran % (Auto) (0.0-0.4) % Neut % (Auto) (45-73) % Lymph % (Auto) (20-40) % [place] % (Auto) (2-11) % Eos % (Auto) (0-4) % Baso % (Auto) (0-2) % Lymph # (Auto) (1.2-4.9) X10*3/uL [place] # (Auto) (0.1-1.2) X10*3/uL Eos # (Auto) (0.0-0.4) X10*3/uL Baso # (Auto) (0.0-0.2) X10*3/uL Abs Immat Gran (auto) (0.00-0.03) X10*3/uL Absolute Neuts (auto) (2.0-8.3) x10*3/uL Absolute Nucleated RBC (0.0-0.012) X10*3/uL Nucleated RBC % (auto) (0.0-0.2) /100WBC VBG pH 7.41 (7.32-7.43) VBG pCO2 83 mmHg VBG pO2 51 mmHg VBG HCO3 53 H (22-26) mmol/L VBG O2 Saturation 78.0 % VBG Base Excess 22.8 mmol/L Sodium (135-145) mmol/L Potassium (3.3-5.1) mmol/L Chloride (96-108) mmol/L Carbon Dioxide (22-29) mmol/L Anion Gap (12-20) BUN (9-16) mg/dL Creatinine (0.5-1.4) mg/dL Estim Creat Clear Calc Estimated GFR POC Glucose 350 H* 271 H (60-115) mg/dL Random Glucose (60-115) mg/dL Calcium (8.4-10.2) mg/dL Total Bilirubin (0.0-1.0) mg/dL AST (5-31) U/L ALT (0-31) U/L Alkaline Phosphatase (39-117) U/L Total Protein (6.5-8.0) g/dL Albumin (3.5-5.0) g/dL Lipase (8-78) U/L Beta-Hydroxybutyrate (0.02-0.27) mmol/L Urine Color Urine Appearance Urine pH (5.0-9.0) Ur Specific [place] (1.005-1.025) Urine Protein (Neg-Trace) mg/dL Urine Glucose (UA) (Negative) mg/dL Urine Ketones (Negative) mg/dL Urine Blood (Negative) Urine Nitrite (Negative) Ur Leukocyte Esterase (Negative) Urine RBC (0-2) /HPF Urine WBC (0-5) /HPF Ur Squamous Epith Cells (0-2) /HPF Urine Bacteria (None Seen) Hyaline Casts (0-2) /LPF 06/25/24 06/26/24 Range/Units 23:48 00:42 WBC (4.8-10.8) X10*3/uL RBC (4.20-5.50) X10*6/uL Hgb (12.0-16.0) g/dl Hct (37.0-47.0) % MCV (80.0-98.0) fL MCH (27.0-33.0) pg MCHC (31.0-35.0) g/dl RDW (11.0-16.0) % Plt Count (160-400) X10*3/uL MPV (9.4-12.3) fL Immature Gran % (Auto) (0.0-0.4) % Neut % (Auto) (45-73) % Lymph % (Auto) (20-40) % [place] % (Auto) (2-11) % Eos % (Auto) (0-4) % Baso % (Auto) (0-2) % Lymph # (Auto) (1.2-4.9) X10*3/uL [place] # (Auto) (0.1-1.2) X10*3/uL Eos # (Auto) (0.0-0.4) X10*3/uL Baso # (Auto) (0.0-0.2) X10*3/uL Abs Immat Gran (auto) (0.00-0.03) X10*3/uL Absolute Neuts (auto) (2.0-8.3) x10*3/uL Absolute Nucleated RBC (0.0-0.012) X10*3/uL Nucleated RBC % (auto) (0.0-0.2) /100WBC VBG pH (7.32-7.43) VBG pCO2 mmHg VBG pO2 mmHg VBG HCO3 (22-26) mmol/L VBG O2 Saturation % VBG Base Excess mmol/L Sodium (135-145) mmol/L Potassium (3.3-5.1) mmol/L Chloride (96-108) mmol/L Carbon Dioxide (22-29) mmol/L Anion Gap (12-20) BUN (9-16) mg/dL Creatinine (0.5-1.4) mg/dL Estim Creat Clear Calc Estimated GFR POC Glucose 296 H (60-115) mg/dL Random Glucose (60-115) mg/dL Calcium (8.4-10.2) mg/dL Total Bilirubin (0.0-1.0) mg/dL AST (5-31) U/L ALT (0-31) U/L Alkaline Phosphatase (39-117) U/L Total Protein (6.5-8.0) g/dL Albumin (3.5-5.0) g/dL Lipase (8-78) U/L Beta-Hydroxybutyrate (0.02-0.27) mmol/L Urine Color Yellow Urine Appearance Cloudy Urine pH 7.5 (5.0-9.0) Ur Specific [place] 1.010 (1.005-1.025) Urine Protein Negative (Neg-Trace) mg/dL Urine Glucose (UA) 500 H (Negative) mg/dL Urine Ketones Negative (Negative) mg/dL Urine Blood Negative (Negative) Urine Nitrite Negative (Negative) Ur Leukocyte Esterase Moderate (2+) H (Negative) Urine RBC 0-2 (0-2) /HPF Urine WBC 11-20 H (0-5) /HPF Ur Squamous Epith Cells 0-2 (0-2) /HPF Urine Bacteria 4+ (None Seen) Hyaline Casts 0-2 (0-2) /LPF Critical Care Time Critical Care Time Critical Care Time: Yes Total Critical Care Time: 45 Attestation: I have personally provided critical care time. Time includes review of lab data, radiology results, discussion with consultants, and monitoring for potential decompensation. Intervention performed as documented. Discharge Plan Discharge Clinical Impression: Acute hyperglycemia, Acute UTI, Acute hypokalemia Patient Disposition: Home, Self-Care Instructions: Urinary Tract Infection in Women (ED), Hypokalemia (ED), Diabetic Hyperglycemia (ED) Additional Instructions: Please follow-up with your primary care physician tomorrow. If you have any worsening or new symptoms, please return to the emergency room or call 911 Prescriptions: New nitrofurantoin monohyd/m-cryst [Macrobid] 100 mg capsule 100 mg PO Q12H 7 Days Qty: 14 0RF Rx Instructions: must administer with a meal/food No Action albuterol sulfate [Proventil HFA] 90 mcg/actuation HFA aerosol inhaler 2 puff inhalation Q4-6H PRN (Reason: Wheezing) Eliquis 5 mg tablet 5 mg PO BID albuterol sulfate 2.5 mg /3 mL (0.083 %) solution for nebulization 2.5 mg inhalation Q4-6H PRN (Reason: shortness of breath or wheezing) Qty: 75 0RF insulin glargine [Lantus Solostar U-100 Insulin] 100 unit/mL (3 mL) insulin pen 70 unit subcut DAILY aspirin 81 mg Tablet,Delayed Release (Dr/Ec) 81 mg PO DAILY furosemide 40 mg tablet 80 mg PO DAILY insulin lispro [Humalog KwikPen Insulin] 100 unit/mL insulin pen 1 sliding scale dose subcut QIDACHS Protocol: Insulin Correction Scale Less than or equal to 110 ---- Give (units): 0 111 to 150 Give (units): 0 151 to 200 Give (units): 2 201 to 250 Give (units): 4 251 to 300 Give (units): 6 301 to 350 Give (units): 8 Greater than 350 Give (units): 10 Call MD if Blood Glucose > : 350 Trulicity 0.75 mg/0.5 mL pen injector 0.75 mg subcut TU Patient Comments: per pt's daughter Stefany acetaminophen 325 mg tablet 650 mg PO Q6H PRN (Reason: Pain) oxybutynin chloride 5 mg tablet extended release 24hr 5 mg PO BEDTIME gabapentin 300 mg capsule 300 mg PO BID montelukast 10 mg tablet 10 mg PO BEDTIME ergocalciferol (vitamin D2) 1,250 mcg (50,000 unit) capsule 1,250 mcg PO TH fluticasone furoate-vilanterol [Breo Ellipta] 200-25 mcg/dose blister with device 1 ea INHALATION DAILY albuterol sulfate 90 mcg/actuation HFA aerosol inhaler 2 puff inhalation Q6H PRN (Reason: shortness of breath or wheezing) Qty: 8.5 0RF prednisone 20 mg tablet 20 mg PO BID Qty: 10 0RF Patient Comments: patient's daughter states patient does not take doxycycline hyclate 100 mg tablet 100 mg PO BID Qty: 14 0RF Patient Comments: patient's daughter states patient does not take guaifenesin 200 mg/5 mL liquid 200 mg PO Q4H PRN (Reason: cough) Qty: 118 0RF Patient Comments: patient's daughter states patient does not take metoprolol succinate 50 mg tablet extended release 24 hr 50 mg PO DAILY losartan 25 mg tablet 25 mg PO DAILY lisinopril 5 mg tablet 5 mg PO DAILY Print Language: Malagasy
[2024-06-26 00:47] LABS: Glucose, Whole Blood 296 mg/dL (60-115)
[2024-06-26 02:07] VITALS: BP 171/71; PULSE 69; RESP 20; TEMP 36.6; O2SAT 97
[2024-06-26] MEDS: Potassium Chloride Packet 20 MEQ PACKET 40 MEQ PO (03:33)
[2024-06-26] MEDS: Nitrofurantoin Monohyd/M-Cryst 100 MG CAPSULE PO (03:33)
[2024-06-26 05:32] VITALS: BP 187/90; PULSE 73; RESP 18; TEMP 36.8; O2SAT 97
[2024-06-26 05:51] VITALS: BP 171/81
[2024-06-26] MEDS: Losartan Potassium 50 MG TABLET PO (05:51)
--- NOTE | 2024-06-26 05:58 | PC.NURSE ---
PT medicated for HTN.
[2024-06-26 07:22] VITALS: BP 174/80; PULSE 71; RESP 18; TEMP 36.7; O2SAT 97
[2024-06-26] MEDS: Acetaminophen 325 MG TABLET 975 MG PO (08:51)
[2024-06-26 09:06] VITALS: BP 174/80; PULSE 71; RESP 18; TEMP 36.7; O2SAT 97
== END 2024-06-26 09:07 | disposition home or self-care (01) ==
PROVIDERS: Emergency Provider Emergency Medicine; PCP Family Medicine
DX: E11.65 Type 2 diabetes mellitus with hyperglycemia (principal); K59.00 Constipation, unspecified; N39.0 Urinary tract infection, site not specified; E23.2 Diabetes insipidus; Z79.899 Other long term (current) drug therapy; Z79.4 Long term (current) use of insulin
CPT/HCPCS: 36415; 80053; 81001; 82010; 82803; 82947; 83690; 85025; 87086; 96374; 96376; 99284

== ENCOUNTER 2024-06-27 19:57 | Emergency (ER) | payer MEDICARE, MEDICAID, SELFPAY ==
--- NOTE | ~2024-06-27 | US_ITS ---
EXAMINATION: US PELVIS CLINICAL INFORMATION: Abdominal pain. Abnormal CT. COMPARISON: Correlation made with CT performed the same day. TECHNIQUE: Ultrasound of the pelvis is performed using transabdominal transducers along with Doppler. Transvaginal imaging was declined. FINDINGS: There is significant limitation related to body habitus and bowel gas. The uterus is not seen. The ovaries are also not seen. A rounded anechoic structure in the pelvis at the midline suggest the urinary bladder. US/US pelvic complete IMPRESSION: 1. Significantly limited examination. The uterus and ovaries are not visualized. 2. Rounded anechoic structure in the pelvis at the midline suggest the urinary bladder. Electronically signed by: Jonah Rivas MD 06/28/2024 01:54 AM [facility]
--- NOTE | ~2024-06-27 | CT_ITS ---
EXAMINATION: CT ABDOMEN AND PELVIS WITHOUT CONTRAST CLINICAL INFORMATION: Constipation and nausea. COMPARISON: CT abdomen and pelvis without IV contrast 06/27/2024 TECHNIQUE: Multidetector volumetric imaging was performed from the superior aspect of the liver through the pubic symphysis. Sagittal and coronal reformatted images were obtained on the technologist's workstation. This CT examination was performed using dose optimization techniques as appropriate, variously including the following: *Automated exposure control *Adjustment of mA and/or kV according to patient size (this includes techniques or standardized protocols for targeted exams where dose is matched to indication/reason for exam; i.e. extremities or head) *Use of iterative reconstruction technique DLP: 1581 mGy-cm FINDINGS: LUNG BASES: There is bibasilar atelectasis and/or scarring. Heart size is normal. No pericardial effusion seen. There is moderate coronary artery calcifications. A small hiatal hernia is seen. LIVER, GALLBLADDER, AND BILIARY TREE: The liver is normal in size, shape, and attenuation. No focal hepatic lesion or biliary ductal dilatation is present. The gallbladder is unremarkable with no evidence of radiopaque gallstones, gallbladder wall thickening, or obvious pericholecystic inflammatory changes. PANCREAS: Unremarkable. SPLEEN: Unremarkable. ADRENAL GLANDS: Mild hypertrophy both adrenal glands seen. KIDNEYS AND URETERS: The kidneys are normal in size, shape, and attenuation. There are nonobstructive 3 mm radiopaque calculi upper pole left kidney. No additional radiopaque calculi seen. There is no calyx cases or hydronephrosis. BLADDER: The bladder is nondistended with a Molina's catheter within. Also visualizes air within the bladder from catheter insertion. GASTROINTESTINAL TRACT: There is scattered stool and gas seen throughout the colon without distention. The small bowel loops are normal caliber. Appendix is not visualized with certainty. No free air or free fluid seen. ABDOMINAL WALL: No significant hernia is appreciated. LYMPH NODES: Normal. VASCULAR: Unremarkable. PELVIC VISCERA: The uterus is anteverted with complex mass superior to the fundus. On previous exam it measured 4.6 Hounsfield units. On the present exam measures 47 Hounsfield units likely representing hemorrhagic component. No free fluid seen.. OSSEOUS STRUCTURES: Degenerative disc changes throughout lumbar spine without aggressive lytic or sclerotic process. CT/CT abdomen pelvis wo IV con IMPRESSION: Complex mass superior to fundal uterus. Previously it measured cystic density, likely ovarian origin. Now it measures more solid and could represent internal hemorrhage. Correlate with ultrasound. Moderate constipation. No obstruction seen. Bibasilar atelectasis. Small hiatal hernia Fleischner guidelines were followed. Electronically signed by: Ryan Ahumada MD 06/27/2024 09:49 PM EST
[2024-06-27 20:06] VITALS: BP 158/89; PULSE 94; O2SAT 95
[2024-06-27 20:07] VITALS: BMI 52.3
--- NOTE | 2024-06-27 20:30 | ECG_ITS ---
Test Reason : ABD PAIN Blood Pressure : / mmHG Vent. Rate : 085 BPM Atrial Rate : 085 BPM P-R Int : 192 ms QRS Dur : 098 ms QT Int : 374 ms P-R-T Axes : 030 -08 067 degrees QTc Int : 445 ms Normal sinus rhythm Normal ECG When compared with ECG of 06-JAN-2024 09:23, No significant change was found Referred By: Leah Greer Electronically Signed By:STANLEY HUMPHREYS
[2024-06-27 20:40] VITALS: BMI 52.3
[2024-06-27 20:40] LABS: MANUAL DIFF FLAG NO
[2024-06-27 20:48] LABS: Basophils Percent Auto 0.2 % (0-2); Eosinophils Absolute Auto 0.3 X10*3/uL (0.0-0.4); Hematocrit 39.6 % (37.0-47.0); Hemoglobin 12.2 g/dl (12.0-16.0); Imm Gran Abs Auto 0.05 X10*3/uL (0.00-0.03); Imm Gran Pct Auto 0.5 % (0.0-0.4); Lymphocytes Absolute Auto 1.1 X10*3/uL (1.2-4.9); Mean Corpuscular HGB Conc 30.8 g/dl (31.0-35.0); Mean Corpuscular Hemoglobin 25.7 pg (27.0-33.0); Mean Corpuscular Volume 83.5 fL (80.0-98.0); Mean Platelet Volume 10.5 fL (9.4-12.3); Monocytes Absolute Auto 0.6 X10*3/uL (0.1-1.2); Monocytes Percent Auto 6.3 % (2-11); Neutrophils Absolute Auto 7.5 x10*3/uL (2.0-8.3); Platelet Count 217 X10*3/uL (160-400); Red Blood Count 4.74 X10*6/uL (4.20-5.50); Red Cell Distribution Width 16.2 % (11.0-16.0); White Blood Count 9.5 X10*3/uL (4.8-10.8)
[2024-06-27 21:01] LABS: Lactic Acid 1.3 mmol/L (0.5-2.0)
[2024-06-27 21:07] LABS: Alanine Aminotransferase 23 U/L (0-31); Albumin Level 3.4 g/dL (3.5-5.0); Alkaline Phosphatase 117 U/L (39-117); Anion Gap 15 (12-20); Aspartate Amino Transferase 26 U/L (5-31); Bilirubin Direct 0.1 mg/dL (0.0-0.5); Bilirubin Total 0.3 mg/dL (0.0-1.0); Blood Urea Nitrogen 21 mg/dL (9-16); Carbon Dioxide 36 mmol/L (22-29); Chloride 86 mmol/L (96-108); Creatinine Clr Calc Pharmacy 82.1; Estimated Glomerular Filt Rate > 60; Glucose Random 429 mg/dL (60-115); Lipase 11 U/L (8-78); Magnesium 1.4 mg/dL (1.6-2.6); Potassium 4.8 mmol/L (3.3-5.1); Sodium 132 mmol/L (135-145); Total Protein 6.7 g/dL (6.5-8.0)
[2024-06-27 21:09] LABS: Troponin-I High Sensitivity 11.9 ng/L (<3.5-17.0)
--- NOTE | 2024-06-27 21:09 | ED_ITS ---
HPI - Abdominal Pain General Chief Complaint: Abdominal Pain Stated Complaint: ABD PAIN, HYPERGLYCEMIA*450* Time Seen by Provider: 06/27/24 20:11 Source: patient, EMS and old records reviewed Mode of arrival: EMS Limitations: no limitations History of Present Illness ED Provider: DC HPI narrative: 73 yo female with PMH of gastroenteritis, UTI, CHF, asthma, COPD on 2L home O2, CVA, vision loss, PAF on eliquis , chronic rai here with c/o lack of good BM x 3 days but no n/v feels pain and fullness in upper abdomen. Did have hard stool today did pass gas. No fevers, no change in rai catheter. Rai looks clean. States she is out of rehab and at home doing well with new great supervisor telephone information. No other complaints MD elicited complaint: abdominal pain Pertinent past history: constipation Onset (ago): day(s) (3) Pain Consistency: constant Location: periumbilical Severity: moderate Quality: aching Radiation: none Migration to: no migration Exacerbating factors: eating Relieving factors: nothing Context: history of similar episodes Associated symptoms: constipation Related Data Home Medications ?Medication ?Instructions ?Recorded ?Confirmed albuterol sulfate 90 mcg/actuation 2 puff inhalation Q4-6H PRN 01/23/21 10/26/23 aerosol inhaler (Proventil HFA) Wheezing apixaban 5 mg tablet (Eliquis) 5 mg PO BID 01/23/21 01/08/24 aspirin 81 mg tablet,delayed 81 mg PO DAILY 10/24/21 01/08/24 release insulin glargine 100 unit/mL (3 70 unit subcut DAILY 10/24/21 01/08/24 mL) subcutaneous pen (Lantus Solostar U-100 Insulin) furosemide 40 mg tablet 80 mg PO DAILY 03/09/22 01/08/24 dulaglutide 0.75 mg/0.5 mL 0.75 mg subcut TU 10/23/22 10/26/23 subcutaneous pen injector (Trulicity) insulin lispro 100 unit/mL 1 sliding scale dose subcut QIDACHS 10/23/22 01/08/24 subcutaneous pen (Humalog KwikPen (U-100) Insulin) acetaminophen 325 mg tablet 650 mg PO Q6H PRN Pain 01/27/23 01/08/24 ergocalciferol (vitamin D2) 1,250 1,250 mcg PO TH 01/27/23 01/08/24 mcg (50,000 unit) capsule fluticasone furoate 200 1 ea inhalation DAILY 01/27/23 10/26/23 mcg-vilanterol 25 mcg/dose inhalation powder (Breo Ellipta) gabapentin 300 mg capsule 300 mg PO BID 01/27/23 01/08/24 montelukast 10 mg tablet 10 mg PO BEDTIME 01/27/23 01/08/24 oxybutynin chloride 5 mg 5 mg PO BEDTIME 01/27/23 01/08/24 tablet,extended release 24 hr losartan 25 mg tablet 25 mg PO DAILY 10/26/23 01/08/24 metoprolol succinate 50 mg 50 mg PO DAILY 10/26/23 01/08/24 tablet,extended release 24 hr lisinopril 5 mg tablet 5 mg PO DAILY 12/01/23 01/08/24 Previous Rx's ?Medication ?Instructions ?Recorded albuterol sulfate 2.5 mg/3 mL 2.5 mg (3 mL) inhalation Q4-6H PRN 07/25/22 (0.083 %) solution for nebulization shortness of breath or wheezing #75 mL albuterol sulfate 90 mcg/actuation 2 puff inhalation Q6H PRN 10/26/23 aerosol inhaler shortness of breath or wheezing #8.5 grams doxycycline hyclate 100 mg tablet 100 mg PO BID #14 tabs 10/26/23 guaifenesin 200 mg/5 mL oral liquid 200 mg (5 mL) PO Q4H PRN cough 10/26/23 #118 mL prednisone 20 mg tablet 20 mg PO BID #10 tabs 10/26/23 nitrofurantoin 100 mg PO Q12H 7 days #14 caps 06/26/24 monohydrate/macrocrystals 100 mg capsule (Macrobid) docusate sodium 100 mg capsule 100 mg PO BID constipation #20 caps 06/28/24 (Colace) sennosides 8.6 mg tablet (senna) 8.6 mg PO BEDTIME PRN constipation 06/28/24 #30 tabs Allergies Allergy/AdvReac Type Severity Reaction Status Date / Time silver sulfadiazine Allergy Unknown UNK Verified 06/27/24 20:57 [From TRINY] Review of Systems Review of Systems Constitutional : No Weight loss, No Fever, No Chills, malaise ENT/Mouth : No sore throat, No Rhinorrhea Eyes: No Swelling, No Redness Cardiovascular : No Chest Pain, No SOB, No Edema Respiratory : No Cough, No Sputum, No Wheezing Gastrointestinal : no Nausea, no Vomiting, no Diarrhea, positive abdominal Pain, No Hematochezia, No Melena Genitourinary : No Dysuria, No Urinary Frequency, No Hematuria, No Urgency Musculoskeletal : No joint pain, No Myalgias, No Joint Swelling Skin : No Skin Lesions, No rash Neuro : No Weakness, No Numbness, No Dizziness, No Headache All other systems reviewed and are negative. [facility] Past Medical History Attestation statement: The following information was validated with the patient. Source: old records reviewed Medical History Chronic hypoxemic respiratory failure Obstructive sleep apnea Hypotonic neurogenic bladder Chronic heart failure with preserved ejection fraction (HFpEF) Diarrhea Bacteriuria Chronic UTI UTI (urinary tract infection) Non-rheumatic aortic stenosis Aortic stenosis Paroxysmal atrial fibrillation H/O: CVA (cerebrovascular accident) Glaucoma Severe sepsis Obesity Osteoarthritis COPD (chronic obstructive pulmonary disease) Chronic UTI Chronic indwelling Rai catheter Diabetes Hypertension Congestive heart failure Surgical History H/O enucleation of left eyeball H/O adenoidectomy History of tonsillectomy Family History Family History Father No problems noted. Mother No problems noted. Social History Social History Household Members: None Housing: Apartment Do you presently have visiting nurse or other home services: Yes (care givers) Unable to assess alcohol history related to: Unknown Alcohol intake: former Patient Tobacco Use Status: Never used Tobacco Smoked in Last 30 Days: No Second Hand Smoke Exposure: No Use of substances other than those prescribed or required for medical reasons: No Advance Directives: Yes Advance Directives on File: Yes Advance Directives Date on File: 07/09/20 Do you have a plan to hurt others: No Plan service: No Current occupational status: disabled Physical Exam ED Vital Signs: Vital Signs - 24 hr 06/27/24 22:37 06/27/24 23:28 Temperature 97.7 F 97.8 F Pulse Rate 72 75 Respiratory Rate 18 16 Blood Pressure 151/59 H 154/55 H Pulse Oximetry 97 98 Oxygen Delivery Method Nasal Cannula Nasal Cannula Oxygen Flow Rate 4 4 BMI result Body Mass Index 52.3 Appearance: Alert. Oriented X3. No acute distress. Eyes: no signs of periorbital infection ENT: Pharynx normal. Neck: Normal inspection. Neck supple. CVS: Normal heart rate and rhythm. Pulses normal. Respiratory: No respiratory distress. Breath sounds diminished Abdomen: Soft and obese reports upper abdominal distention and pain, no rash near pannus Skin: Skin warm and dry. Normal skin color. Normal skin turgor. Extremities: pitting symmetric 1+ lower extremity edema. dark skin shiny hyperpigmented Neuro: Oriented X 3. No motor deficit. No sensory deficit. Course Course Course Narrative: patient has no complaints feels better pending US report Medical Decision Making Medical Decision Making MDM Narrative: 73 yo female with PMH of gastroenteritis, UTI, CHF, asthma, COPD on 2L home O2, CVA, vision loss, PAF on eliquis, chronic rai here with c/o constipation for a few days but did pass gas and hard stool today no n/v/d. No fevers. States her abdomen hurts and she just feels full. She reports she just left a rehab but her supervisor telephone information are awesome and she is doing well at home - at this time will order, EKG, labs, CT scan for SBO Differential Diagnosis Differential Diagnoses: The differential diagnosis associated with the presentation includes constipation, SBO, abd pain Admission/Observation Consideration of admission/observation: Escalation of care including admission/observation considered signed out to [place] to follow up on US Lab Data [facility] Lab Attestation statement: I reviewed the patient's lab results. repleted magnesium urine likely contaminated from rai bag 06/27/24 20:24 06/27/24 20:24 Labs: Lab Results 06/27/24 06/27/24 Range/Units 20:24 21:00 WBC 9.5 (4.8-10.8) X10*3/uL RBC 4.74 (4.20-5.50) X10*6/uL Hgb 12.2 (12.0-16.0) g/dl Hct 39.6 (37.0-47.0) % MCV 83.5 (80.0-98.0) fL MCH 25.7 L (27.0-33.0) pg MCHC 30.8 L (31.0-35.0) g/dl RDW 16.2 H (11.0-16.0) % Plt Count 217 (160-400) X10*3/uL MPV 10.5 (9.4-12.3) fL Immature Gran % (Auto) 0.5 H (0.0-0.4) % Neut % (Auto) 79.0 H (45-73) % Lymph % (Auto) 11.0 L (20-40) % Coleman % (Auto) 6.3 (2-11) % Eos % (Auto) 3.0 (0-4) % Baso % (Auto) 0.2 (0-2) % Lymph # (Auto) 1.1 L (1.2-4.9) X10*3/uL Coleman # (Auto) 0.6 (0.1-1.2) X10*3/uL Eos # (Auto) 0.3 (0.0-0.4) X10*3/uL Baso # (Auto) 0.0 (0.0-0.2) X10*3/uL Abs Immat Gran (auto) 0.05 H (0.00-0.03) X10*3/uL Absolute Neuts (auto) 7.5 (2.0-8.3) x10*3/uL Absolute Nucleated RBC 0.000 (0.0-0.012) X10*3/uL Nucleated RBC % (auto) 0.0 (0.0-0.2) /100WBC Hold Blue Top SEE NOTE Sodium 132 L (135-145) mmol/L Potassium 4.8 D (3.3-5.1) mmol/L Chloride 86 L (96-108) mmol/L Carbon Dioxide 36 H (22-29) mmol/L Anion Gap 15 (12-20) BUN 21 H (9-16) mg/dL Creatinine 0.80 (0.5-1.4) mg/dL Estim Creat Clear Calc 82.1 Estimated GFR > 60 Random Glucose 429 H* (60-115) mg/dL Lactic Acid 1.3 (0.5-2.0) mmol/L Calcium 9.0 (8.4-10.2) mg/dL Magnesium 1.4 L* (1.6-2.6) mg/dL Total Bilirubin 0.3 (0.0-1.0) mg/dL Direct Bilirubin 0.1 (0.0-0.5) mg/dL AST 26 (5-31) U/L ALT 23 (0-31) U/L Alkaline Phosphatase 117 (39-117) U/L Troponin I High Sens 11.9 D (<3.5-17.0) ng/L Total Protein 6.7 (6.5-8.0) g/dL Albumin 3.4 L (3.5-5.0) g/dL Lipase 11 (8-78) U/L Urine Color Yellow Urine Appearance Clear Urine pH 5.5 (5.0-9.0) Ur Specific [place] 1.025 (1.005-1.025) Urine Protein 30 (1+) H (Neg-Trace) mg/dL Urine Glucose (UA) >=1000 H (Negative) mg/dL Urine Ketones Trace (Negative) mg/dL Urine Blood Small (1+) H (Negative) Urine Nitrite Negative (Negative) Ur Leukocyte Esterase Small (1+) H (Negative) Urine RBC 11-20 H (0-2) /HPF Urine WBC 21-50 H (0-5) /HPF Ur Squamous Epith Cells 3-5 (0-2) /HPF Urine Bacteria 3+ (None Seen) Hyaline Casts 3-5 (0-2) /LPF Influenza Type A (PCR) NEGATIVE (Negative) Influenza Type B (PCR) NEGATIVE (Negative) RSV RNA Qual (PCR) NEGATIVE (Negative) SARS-CoV-2 RNA (RT-PCR) NEGATIVE (Negative) Independent Interpretation I performed an independent interpretation of an: EKG, Ultrasound and CT Scan (uterine mass otherwise no SBO) Interpretation: Rate: 85 Rhythm: NSR Cumming: left Normal P waves. Normal ERASMO. Normal QRS complex. ST T wave : normal n oSTE, flat t wave aVL qTC: 445 prior studies: no acute ischemia The study has been interpreted contemporaneously by me. . Radiology Impression Discussion of test interpretation with radiology: I have reviewed the radiologist's reading. Independent Historian Clinical information obtained from an independent historian. History obtained from or confirmed by: EMS External Record Review External record reviewed: Inpatient record and Outpatient record Medications Administered Discontinued Medications Generic Name Dose Route Start Last Admin Trade Name Freq PRN Reason Stop Dose Admin Acetaminophen 1,000 mg in 100 mls @ 400 mls/hr 06/27/24 20:30 06/27/24 21:45 Ofirmev IV 06/27/24 20:44 Infused ONCE ONE Infusion Magnesium Sulfate 2 gm in 50 mls @ 25 mls/hr 06/27/24 21:07 06/27/24 23:58 Magnesium Sulfate/H2o IV 06/27/24 23:06 Infused ONCE ONE Infusion Ondansetron HCl 4 mg 06/27/24 20:30 06/27/24 21:24 Ondansetron Hcl 4 Mg/2 Ml Vial IVPUSH 06/27/24 20:31 4 mg ONCE ONE Administration Discharge Plan Discharge Clinical Impression: Hypomagnesemia Abdominal pain Qualifiers: Abdominal location: periumbilical Qualified Code(s): R10.33 - Periumbilical pain Constipation Qualifiers: Constipation type: unspecified constipation type Qualified Code(s): K59.00 - Constipation, unspecified Instructions: Constipation (ED), Abdominal Pain (ED), Hypomagnesemia (ED) Additional Instructions: labs reassuring repleted magnesium through IV labs at baseline urine culture sent off CT scan no bowel obstruction uterine has small mass - moderate constipation try to take stool softeners and stimulant given ultrasound report and area of concern near the uterus please follow up with your doctor and ask for referral to OBGYN as soon as possible Prescriptions: New docusate sodium [Colace] 100 mg capsule 100 mg PO BID Qty: 20 0RF sennosides [senna] 8.6 mg tablet 8.6 mg PO BEDTIME PRN (Reason: constipation) Qty: 30 0RF No Action albuterol sulfate [Proventil HFA] 90 mcg/actuation HFA aerosol inhaler 2 puff inhalation Q4-6H PRN (Reason: Wheezing) Eliquis 5 mg tablet 5 mg PO BID albuterol sulfate 2.5 mg /3 mL (0.083 %) solution for nebulization 2.5 mg inhalation Q4-6H PRN (Reason: shortness of breath or wheezing) Qty: 75 0RF insulin glargine [Lantus Solostar U-100 Insulin] 100 unit/mL (3 mL) insulin pen 70 unit subcut DAILY aspirin 81 mg Tablet,Delayed Release (Dr/Ec) 81 mg PO DAILY furosemide 40 mg tablet 80 mg PO DAILY insulin lispro [Humalog KwikPen Insulin] 100 unit/mL insulin pen 1 sliding scale dose subcut QIDACHS Protocol: Insulin Correction Scale Less than or equal to 110 ---- Give (units): 0 111 to 150 Give (units): 0 151 to 200 Give (units): 2 201 to 250 Give (units): 4 251 to 300 Give (units): 6 301 to 350 Give (units): 8 Greater than 350 Give (units): 10 Call MD if Blood Glucose > : 350 Trulicity 0.75 mg/0.5 mL pen injector 0.75 mg subcut TU Patient Comments: per pt's daughter Stefany nitrofurantoin monohyd/m-cryst [Macrobid] 100 mg capsule 100 mg PO Q12H 7 Days Qty: 14 0RF Rx Instructions: must administer with a meal/food acetaminophen 325 mg tablet 650 mg PO Q6H PRN (Reason: Pain) oxybutynin chloride 5 mg tablet extended release 24hr 5 mg PO BEDTIME gabapentin 300 mg capsule 300 mg PO BID montelukast 10 mg tablet 10 mg PO BEDTIME ergocalciferol (vitamin D2) 1,250 mcg (50,000 unit) capsule 1,250 mcg PO TH fluticasone furoate-vilanterol [Breo Ellipta] 200-25 mcg/dose blister with device 1 ea INHALATION DAILY albuterol sulfate 90 mcg/actuation HFA aerosol inhaler 2 puff inhalation Q6H PRN (Reason: shortness of breath or wheezing) Qty: 8.5 0RF prednisone 20 mg tablet 20 mg PO BID Qty: 10 0RF Patient Comments: patient's daughter states patient does not take doxycycline hyclate 100 mg tablet 100 mg PO BID Qty: 14 0RF Patient Comments: patient's daughter states patient does not take guaifenesin 200 mg/5 mL liquid 200 mg PO Q4H PRN (Reason: cough) Qty: 118 0RF Patient Comments: patient's daughter states patient does not take metoprolol succinate 50 mg tablet extended release 24 hr 50 mg PO DAILY losartan 25 mg tablet 25 mg PO DAILY lisinopril 5 mg tablet 5 mg PO DAILY Print Language: Irish
[2024-06-27 21:11] LABS: Appearance Urine Clear; Color Urine Yellow; Glucose Urine UA >=1000 mg/dL (Negative); Leukocyte Esterase Urine Small (1+) (Negative); Nitrite Urine Negative (Negative); PH 5.5 (5.0-9.0); Specific Gravity - Urine 1.025 (1.005-1.025); UMIC TRIGGER UACC YES; Urine Blood Small (1+) (Negative); Urine Ketones Trace mg/dL (Negative); Urine Protein 30 (1+) mg/dL (Neg-Trace)
[2024-06-27 21:18] LABS: Bacteria Urine 3+ (None Seen); UACC Culture Trigger YES; WBC Urine 21-50 /HPF (0-5)
[2024-06-27] MEDS: Acetaminophen 1,000 MG/100 ML PIGGYBACK 400 MG IV (21:24)
[2024-06-27] MEDS: ondansetron HCL 4 MG/2 ML VIAL IVPUSH (21:24)
--- OUTSIDE RECORDS SUMMARY | 2024-06-27 21:41 | XMS_ITS | Clinical Summary ---
Author Organization Unknown Care Team Providers Care Bath Design Sales Consultant Name Role Phone JACINTO GONZALEZ, LEONORA Unavailable Unavailable SANGITA FARNSWORTH, MARSHALL Unavailable Unavailable MARSHAL FARNSWORTH, LILY Unavailable Unavailable Payers Payer Name Policy Type Policy Number Effective Date Expira tion Date MEDICARE - NGS [place] - PD [id number] MEDICAID [facility] [id number] Problems Condition Name Condition Details Condition Category [...] TO EXCESS CALORIES Active 07-10 00:00: 00 CLIENT REPRESENTATIVE (CURRENT) USE OF ANTICOAGULAN TS Active 07-10 00:00: 00 CLIENT REPRESENTATIVE (CURRENT) USE OF INHALED STEROIDS Active 07-10 00:00: 00 HALFWAY (CURRENT) USE OF ASPIRIN Active 07-10 00:00: 00 CLIENT REPRESENTATIVE (CURRENT) USE OF ORAL HYPOGLYCEMIC DRUGS Active 07-10 00:00: 00 HALFWAY (CURRENT) USE OF INSULIN Active 07-10 00:00: [...] 16 00:00: 00 10-22 23:59 :00 No [id number] 1 tablet 2 TIMES DAILY 1 tablet 2 TIMES DAILY (route: oral) Med Classific ation: Hematolog ical Agents Humalog KwikPen (U-100) Insulin 100 unit/mL subcutaneou s 10-19 00:00: 00 11-09 00:00 :00 No [id number] Per instruc tions Per instructio ns (route: subcutaneo us) Med Classific ation: Endocrine Humalog KwikPen (U-100) Insulin 100 unit/mL subcutaneou s 10-19 00:00: 00 10-22 23:59 :00 No [id number] Per instruc tions DAILY Per instructio ns DAILY (route: subcutaneo us) Med Classific ation: Endocrine metformin 850 mg tablet 4-12 00:00: 00 10-22 23:59 :00 No [id number] 1 tablet 2 TIMES DAILY 1 tablet 2 TIMES DAILY (route: oral) Med Classific ation: Endocrine metformin 850 mg tablet 4-12 00:00: 00 11-09 00:00 :00 No [id number] Per instruc tions TWICE A DAY Per instructio ns TWICE A DAY (route: oral) Med Classific ation: Endocrine albuterol sulfate HFA 90 mcg/actuati on aerosol inhaler 4-11 00:00: 00 11-22 23:59 :00 No [id number] 2 puff EVERY 6 HOURS 2 puff EVERY 6 HOURS (route: inhalation ) Med Classific ation: Respirato ry Therapy Agents albuterol sulfate HFA 90 mcg/actuati on aerosol inhaler 4-11 00:00: 00 11-22 23:59 :00 No [id number] Per instruc tions EVERY 4 TO 6 HOURS NEEDED Per instructio ns EVERY 4 TO 6 HOURS NEEDED (route: inhalation ) Med Classific ation: Respirato ry Therapy Agents Lantus Solostar U-100 Insulin 100 unit/mL (3 mL) subcutaneou s pen 4-09 00:00: 00 11-09 00:00 :00 No [id number] Per instruc tions Per instructio ns (route: subcutaneo us) Med Classific ation: Endocrine Lantus Solostar U-100 Insulin 100 unit/mL (3 mL) subcutaneou s pen 4-09 00:00: 00 11-22 23:59 :00 No [id number] Per instruc tions DAILY Per instructio ns DAILY (route: subcutaneo us) Med Classific ation: Endocrine Flovent Diskus 100 mcg/actuati on powder for inhalation 3-23 00:00: 00 10-22 23:59 :00 No [id number] 1 inhalat ion 2 TIMES DAILY 1 inhalation 2 TIMES DAILY (route: inhalation ) Med Classific ation: Respirato ry Therapy Agents Flovent Diskus 100 mcg/actuati on powder for inhalation 3-23 00:00: 00 11-09 00:00 :00 No [id number] Per instruc tions EVERY DAY Per instructio ns EVERY DAY (route: inhalation ) Med Classific ation: Respirato ry Therapy Agents Aspirin Low Dose 81 mg tablet,ellis yed release 11-09 00:00: 00 10-22 23:59 :00 No [id number] 1 tablet DAILY 1 tablet DAILY (route: oral) Med Classific ation: Hematolog ical Agents furosemide 20 mg tablet 11-09 00:00: 00 11-22 23:59 :00 No [id number] 1 tablet DAILY 1 tablet DAILY (route: oral) Med Classific ation: Cardiovas cular Therapy Agents gabapentin 300 mg capsule 11-09 00:00: 00 10-22 23:59 :00 No [id number] 1 capsule 2 TIMES DAILY 1 capsule 2 TIMES DAILY (route: oral) Med Classific ation: Central Nervous System Agents lisinopril 5 mg tablet 11-09 00:00: 00 10-22 23:59 :00 No [id number] 1 tablet DAILY 1 tablet DAILY (route: oral) Med Classific ation: Cardiovas cular Therapy Agents metoprolol tartrate 50 mg tablet 11-09 00:00: 00 10-22 23:59 :00 No [id number] 1 tablet 2 TIMES DAILY 1 tablet 2 TIMES DAILY (route: oral) Med Classific ation: Cardiovas cular Therapy Agents simvastatin 40 mg tablet 11-09 00:00: 00 10-22 23:59 :00 No [id number] 1 tablet BEDTIME 1 tablet BEDTIME (route: oral) Med Classific ation: Cardiovas cular Therapy Agents cholecalcif mariela (vitamin D3) 25 mcg (1,000 unit) capsule 11-23 00:00: 00 10-22 23:59 :00 No [id number] 1 capsule DAILY 1 capsule DAILY (route: oral) Med Classific ation: Electroly te Balance-N utritiona l Products dextrometho rphan-guaif enesin 10 mg-100 mg/5 mL oral liquid 11-23 00:00: 00 12-18 23:59 :00 No [id number] 5 mL EVERY 4 HOURS 5 mL EVERY 4 HOURS (route: oral) Med Classific ation: Respirato ry Therapy Agents Flonase Allergy Relief 50 mcg/actuati on nasal spray,suspe nsion 11-23 00:00: 00 10-22 23:59 :00 No [id number] 1 spray 2 TIMES DAILY 1 spray 2 TIMES DAILY (route: nasal) Med Classific ation: Respirato ry Therapy Agents furosemide 40 mg tablet 11-23 00:00: 00 10-22 23:59 :00 No [id number] 1 tablet 2 TIMES DAILY 1 tablet 2 TIMES DAILY (route: oral) Med Classific ation: Cardiovas cular Therapy Agents Lantus Solostar U-100 Insulin 100 unit/mL (3 mL) subcutaneou s pen 11-23 00:00: 00 10-22 23:59 :00 No [id number] 62 unit DAILY 62 unit DAILY (route: subcutaneo ) Med Classific ation: Endocrine cefpodoxime 200 mg tablet 12-18 00:00: 00 10-22 23:59 :00 No [id number] 1 tablet 2 TIMES DAILY 1 tablet 2 TIMES DAILY (route: oral) Med Classific ation: Anti-Infe ctive Agents codeine 10 mg-guaifene sin 100 mg/5 mL oral liquid 12-18 00:00: 00 10-22 23:59 :00 No [id number] 10 mL EVERY 6 HOURS 10 mL EVERY 6 HOURS (route: oral) Med Classific ation: Respirato ry Therapy Agents doxycycline hyclate 100 mg capsule 12-18 00:00: 00 10-22 23:59 :00 No [id number] 1 capsule 2 TIMES DAILY 1 capsule 2 TIMES DAILY (route: oral) Med Classific ation: Anti-Infe ctive Agents prednisone 20 mg tablet 12-18 00:00: 00 10-22 23:59 :00 No [id number] 2 tablet DAILY 2 tablet DAILY (route: [...] CVA, RISK FACTORS, AND METHODS TO MANAGE HALFWAY EFFECTS OF CVA. [code = SKILLED NURSE TO INSTRUCT PATIENT/CAREGIVER ON WARNING SIGNS OF CVA, RISK FACTORS, AND METHODS TO MANAGE CLIENT REPRESENTATIVE EFFECTS OF CVA.] Future Scheduled Test SKILLED [...] End Date/Time Encounter Type Admission Type Attending [facility] Care Department Encounter ID Discharge Date Discharge Status Discharge Condition Discharge Reason Percent Goals Met 2021-11-09 00:00:00 2021-12-22 00:00:00 Outpatient NEW ADMISSION [facility]ILY [facility] [id number] 00:00:00 DISCHARGE TO HOME OR SELF CARE TOTALLY DEPENDENT PER CLIENT REQUEST 71.05
--- OUTSIDE RECORDS SUMMARY | 2024-06-27 21:41 | XMS_ITS | Clinical Summary ---
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) USE OF ORAL HYPOGLYCEMIC DRUGS Active 07-10 00:00: 00 RETIREMENT (CURRENT) USE OF INSULIN Active 07-10 00:00: [...] 16 00:00: 00 10-22 23:59 :00 No [id number] 1 tablet 2 TIMES DAILY 1 tablet 2 TIMES DAILY (route: oral) Med Classific ation: Hematolog ical Agents Humalog KwikPen (U-100) Insulin 100 unit/mL subcutaneou s 10-19 00:00: 00 11-09 00:00 :00 No [id number] Per instruc tions Per instructio ns (route: subcutaneo us) Med Classific ation: Endocrine Humalog KwikPen (U-100) Insulin 100 unit/mL subcutaneou s 10-19 00:00: 00 10-22 23:59 :00 No [id number] Per instruc tions DAILY Per instructio ns DAILY (route: subcutaneo us) Med Classific ation: Endocrine metformin 850 mg tablet 4-12 00:00: 00 10-22 23:59 :00 No [id number] 1 tablet 2 TIMES DAILY 1 tablet 2 TIMES DAILY (route: oral) Med Classific ation: Endocrine metformin 850 mg tablet 4-12 00:00: 00 11-09 00:00 :00 No [id number] Per instruc tions TWICE A DAY Per instructio ns TWICE A DAY (route: oral) Med Classific ation: Endocrine albuterol sulfate HFA 90 mcg/actuati on aerosol inhaler 4-11 00:00: 00 11-22 23:59 :00 No [id number] 2 puff EVERY 6 HOURS 2 puff EVERY 6 HOURS (route: inhalation ) Med Classific ation: Respirato ry Therapy Agents albuterol sulfate HFA 90 mcg/actuati on aerosol inhaler 4-11 00:00: 00 11-22 23:59 :00 No [id number] Per instruc tions EVERY 4 TO 6 HOURS NEEDED Per instructio ns EVERY 4 TO 6 HOURS NEEDED (route: inhalation ) Med Classific ation: Respirato ry Therapy Agents Lantus Solostar U-100 Insulin 100 unit/mL (3 mL) subcutaneou s pen 4-09 00:00: 00 11-09 00:00 :00 No [id number] Per instruc tions Per instructio ns (route: subcutaneo us) Med Classific ation: Endocrine Lantus Solostar U-100 Insulin 100 unit/mL (3 mL) subcutaneou s pen 4-09 00:00: 00 11-22 23:59 :00 No [id number] Per instruc tions DAILY Per instructio ns DAILY (route: subcutaneo us) Med Classific ation: Endocrine Flovent Diskus 100 mcg/actuati on powder for inhalation 3-23 00:00: 00 10-22 23:59 :00 No [id number] 1 inhalat ion 2 TIMES DAILY 1 inhalation 2 TIMES DAILY (route: inhalation ) Med Classific ation: Respirato ry Therapy Agents Flovent Diskus 100 mcg/actuati on powder for inhalation 3-23 00:00: 00 11-09 00:00 :00 No [id number] Per instruc tions EVERY DAY Per instructio ns EVERY DAY (route: inhalation ) Med Classific ation: Respirato ry Therapy Agents Aspirin Low Dose 81 mg tablet,ellis yed release 11-09 00:00: 00 10-22 23:59 :00 No [id number] 1 tablet DAILY 1 tablet DAILY (route: oral) Med Classific ation: Hematolog ical Agents furosemide 20 mg tablet 11-09 00:00: 00 11-22 23:59 :00 No [id number] 1 tablet DAILY 1 tablet DAILY (route: oral) Med Classific ation: Cardiovas cular Therapy Agents gabapentin 300 mg capsule 11-09 00:00: 00 10-22 23:59 :00 No [id number] 1 capsule 2 TIMES DAILY 1 capsule 2 TIMES DAILY (route: oral) Med Classific ation: Central Nervous System Agents lisinopril 5 mg tablet 11-09 00:00: 00 10-22 23:59 :00 No [id number] 1 tablet DAILY 1 tablet DAILY (route: oral) Med Classific ation: Cardiovas cular Therapy Agents metoprolol tartrate 50 mg tablet 11-09 00:00: 00 10-22 23:59 :00 No [id number] 1 tablet 2 TIMES DAILY 1 tablet 2 TIMES DAILY (route: oral) Med Classific ation: Cardiovas cular Therapy Agents simvastatin 40 mg tablet 11-09 00:00: 00 10-22 23:59 :00 No [id number] 1 tablet BEDTIME 1 tablet BEDTIME (route: oral) Med Classific ation: Cardiovas cular Therapy Agents cholecalcif mariela (vitamin D3) 25 mcg (1,000 unit) capsule 11-23 00:00: 00 10-22 23:59 :00 No [id number] 1 capsule DAILY 1 capsule DAILY (route: oral) Med Classific ation: Electroly te Balance-N utritiona l Products dextrometho rphan-guaif enesin 10 mg-100 mg/5 mL oral liquid 11-23 00:00: 00 12-18 23:59 :00 No [id number] 5 mL EVERY 4 HOURS 5 mL EVERY 4 HOURS (route: oral) Med Classific ation: Respirato ry Therapy Agents Flonase Allergy Relief 50 mcg/actuati on nasal spray,suspe nsion 11-23 00:00: 00 10-22 23:59 :00 No [id number] 1 spray 2 TIMES DAILY 1 spray 2 TIMES DAILY (route: nasal) Med Classific ation: Respirato ry Therapy Agents furosemide 40 mg tablet 11-23 00:00: 00 10-22 23:59 :00 No [id number] 1 tablet 2 TIMES DAILY 1 tablet 2 TIMES DAILY (route: oral) Med Classific ation: Cardiovas cular Therapy Agents Lantus Solostar U-100 Insulin 100 unit/mL (3 mL) subcutaneou s pen 11-23 00:00: 00 10-22 23:59 :00 No [id number] 62 unit DAILY 62 unit DAILY (route: subcutaneo ) Med Classific ation: Endocrine cefpodoxime 200 mg tablet 12-18 00:00: 00 10-22 23:59 :00 No [id number] 1 tablet 2 TIMES DAILY 1 tablet 2 TIMES DAILY (route: oral) Med Classific ation: Anti-Infe ctive Agents codeine 10 mg-guaifene sin 100 mg/5 mL oral liquid 12-18 00:00: 00 10-22 23:59 :00 No [id number] 10 mL EVERY 6 HOURS 10 mL EVERY 6 HOURS (route: oral) Med Classific ation: Respirato ry Therapy Agents doxycycline hyclate 100 mg capsule 12-18 00:00: 00 10-22 23:59 :00 No [id number] 1 capsule 2 TIMES DAILY 1 capsule 2 TIMES DAILY (route: oral) Med Classific ation: Anti-Infe ctive Agents prednisone 20 mg tablet 12-18 00:00: 00 10-22 23:59 :00 No [id number] 2 tablet DAILY 2 tablet DAILY (route: [...] BLOCKAGE/LEAKAGE, HEAVY SEDIMENT. 1 - 3 PRN SENIOR LIVING VISITS FOR CATHETER CHANGE(S) AND/OR TROUBLESHOOTING. [code = SKILLED NURSE TO INSTRUCT PATIENT/CAREGIVER AND PERFORM CARE AND MANAGEMENT OF INDWELLING URINARY CATHETER. CATHETER INSERTION WITH 24 FR CATHETER WITH 30ML BALLOON, CHANGE Q MONTH) AND PRN FOR LEAKING OR MALFUNCTIONING CATHETER. IRRIGATE URINARY CATHETER WITH 30-60CC NORMAL SALINE PRN BLOCKAGE/LEAKAGE, HEAVY SEDIMENT. 1 - 3 PRN SENIOR LIVING VISITS FOR CATHETER CHANGE(S) AND/OR TROUBLESHOOTING.] Future [...] CVA, RISK FACTORS, AND METHODS TO MANAGE RETIREMENT EFFECTS OF CVA. [code = SKILLED NURSE TO INSTRUCT PATIENT/CAREGIVER ON WARNING SIGNS OF CVA, RISK FACTORS, AND METHODS TO MANAGE ENVELOPE CUTTER EFFECTS OF CVA.] Future Scheduled Test SKILLED [...] CARE WILL BE ESTABLISHED THAT MEETS PATIENT'S SENIOR LIVING NEEDS AND INCLUDES PATIENT GOAL FOR HOME [...] End Date/Time Encounter Type Admission Type Attending [facility] Care Department Encounter ID Discharge Date Discharge Status Discharge Condition Discharge Reason Percent Goals Met 2021-11-09 00:00:00 2021-12-22 00:00:00 Outpatient NEW ADMISSION LILY ARAYA [facility] [id number] 1723-06-15 00:00:00 DISCHARGE TO HOME OR SELF CARE TOTALLY DEPENDENT PER CLIENT REQUEST 71.05
--- OUTSIDE RECORDS SUMMARY | 2024-06-27 21:41 | XMS_ITS | Data Portability ---
Author Organization [facility], Main Office Address [address] [facility], [facility] [address] [place] [address] Care Team Providers Care Chief Engineer Drilling And Recovery Name Role Phone LEONORA CASEY [facility] F[facility] OTHER Assessment Encounter Date Assessment Date Assessment LastModified by Organization Details LastModified Time 01/12/2024 01/12/2024 01/08/24 ([facility] wbc 11.8, hgb 14.1, plt 159. Na 131, K 3.9, Bun 15, Cr. 0.63, glu 212. [email or web address] Not available 01/15/2024 11:30:39 01/15/2024 01/15/2024 01/08/24 ([facility] wbc 11.8, hgb 14.1, plt 159. Na 131, K 3.9, Bun 15, Cr. 0.63, glu 212 01/12/24: wbc 9.7, hgb 13.2, hct 43.1, plt 177, ha1c 8.5, est glucose 197, glucose 203, na 132, k 3.5, bun 12, cr 0.56, alb 29 [email or web address] Not available 01/15/2024 14:49:14 01/16/2024 01/16/2024 01/08/24 ([facility] wbc 11.8, hgb 14.1, plt 159. Na 131, K 3.9, Bun 15, Cr. 0.63, glu 212 01/12/24: wbc 9.7, hgb 13.2, hct 43.1, plt 177, ha1c 8.5, est glucose 197, glucose 203, na 132, k 3.5, bun 12, cr 0.56, alb 29 01/08/24 ([facility]): wbc 11.8, hgb 14.1, plt 159. Na [...] and Address Organization Details Recorded Time Sepsis 67184907 Active 2020 Not Available [facility] 3 04:06:36 Acute urinary tract infection 667678193 Active 2020 Not Available [facility] 3 04:06:35 Colitis 02688966 Active 2020 Not Available [facility] 3 04:06:36 Transient cerebral ischemia 223607217 Active 2020 Not Available [facility] 3 04:06:35 Paroxysmal atrial fibrillati on 410344603 Active 2020 Not Available [facility] 3 04:06:35 Congestive heart failure 22402104 Active 2020 Not Available [facility] 3 04:06:35 History of cerebrovas cular accident 742334242 Active 2020 Not Available [facility] 3 04:06:35 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 7256163097902 Active 2020 Not Available [facility] 3 04:06:36 Aortic valve stenosis 01205421 Active 2020 Not Available [facility] 3 04:06:36 Type 2 diabetes mellitus 52003952 Active 2020 Not Available [facility] 3 04:06:35 Chronic obstructiv e pulmonary disease 87946229 Active 2020 Not Available [facility] 3 04:06:35 Glaucoma 11902011 Active 2020 Not Available [facility] 3 04:06:35 Essential hypertensi on 88910701 Active 2020 Not Available [facility] 3 04:06:36 Morbid obesity 261107105 Active 2020 Not Available [facility] 3 04:06:35 Osteoarthr itis 011775986 Active 2020 Not Available [facility] 3 04:06:35 History of eye enucleatio n 8686389218266 05 Active 2020 Not Available [facility] 3 04:06:35 Glaucoma 50458725 Active 2020 Not Available [facility] 3 04:06:35 COVID-19 205395118 Active 2021 Not Available [facility] 3 04:06:36 Hyperlipid emia 38663711 Active 2021 Not Available [facility] 3 04:06:36 Vitamin D deficiency 29905734 Active 2021 Not Available [facility] 3 04:06:35 Admission for respite care Active 2021 Not Available [facility] 3 04:06:35 Bacteriuri a 87989287 Active 2021 Not Available [facility] 3 04:06:36 Urinary tract infectious disease 16331265 Active 2022 Not Available [facility] 3 04:06:36 Neurogenic urinary bladder 400874562 Active 2022 Not Available [facility] 3 04:06:35 Obstructiv e sleep apnea syndrome 25537462 Active 2022 Not Available [facility] 3 04:06:36 Atrial fibrillati on 22215347 Active 2022 Not Available [facility] 3 04:06:35 Neuropathy 257522201 Active 2022 Not Available [facility] 3 04:06:35 Diarrhea 49852431 Active 2023 ALEAH ATKINS NP [address] [facility], [address], [place], [address] , [facility] 4 14:17:12 [facility] 12974176 Active 2023 Kady Lund MD [address] [facility], [address], [place], [address] , [facility] 4 19:36:13 Problem Notes None recorded. Procedures Surgical History Date Name Laterality Status Provider Name and Address Organization Details Recorded Time Removal of adenoids completed TRACI TORREZ [address] [facility], [address], [place], [address], [facility] 09/25/2020 19:50:50 enucleation of eyeball completed MORIS TORREZP [address] [facility], [address], [place], [address], [facility] 09/25/2020 19:51:26 tonsillectomy completed TRACI TORREZ [address] [facility], [address], [place], [address], [facility] 09/25/2020 19:51:39 Imaging Results None recorded. Procedure Notes None recorded. Medical Equipment None Reported. Allergies Allergen ID Allergen Name Allergen Category Reaction Reaction Severity Criticality Documentation Date Start Date Code Code System Note Provider Name and Address Organization Details Recorded Time [id number] silver sulfadiaz ine medicatio n Not available [...] mm[Hg] 54 mm[Hg] ALEAH ATKINS NP [address] [facility], [address], [place], [address], [facility] 4 14:06:48 Date Recorded Heart rate Respiratory rate Body temperature Oxygen saturation Oxygen saturation in Arterial blood by Pulse oximetry Systolic blood pressure Diastolic blood pressure Provider Name and Address Organization Details Last Updated DateTime 4 81 /min 20 /min 98.1 [degF] 92 % 92 % 130 mm[Hg] 90 mm[Hg] TRACI BERG [address] [facility], [address], [place], [address], [facility] 4 14:03:42 Date Recorded Body weight Heart rate Respiratory rate Body temperature Oxygen saturation Oxygen saturation in Arterial blood by Pulse oximetry Systolic blood pressure Diastolic blood pressure Provider Name and Address Organization Details Last Updated DateTime 4 332606. 94 g 73 /min 18 /min 97.8 [degF] 93 % 93 % 130 mm[Hg] 76 mm[Hg] Lisy Munroe NP [address] [facility], [facility] [address], [place], [address], [facility] 4 14:15:58 Date Recorded Body height Body mass index (BMI) Body weight Heart rate Respiratory rate Body temperature Oxygen saturation Oxygen saturation in Arterial blood by Pulse oximetry Systolic blood pressure Diastolic blood pressure Provider Name and Address Organization Details Last Updated DateTime 4 167.64 cm 43.9 kg/m2 733438. 12 g 67 /min 18 /min 97.8 [degF] 97 % 97 % 130 mm[Hg] 89 mm[Hg] Kady Lund MD [address] [facility], [facility] [address], [place], [address], [facility] 4 18:25:27 Date Recorded Body height Body mass index (BMI) Body weight Heart rate Respiratory rate Body temperature Oxygen saturation Oxygen saturation in Arterial blood by Pulse oximetry Systolic blood pressure Diastolic blood pressure Provider Name and Address Organization Details Last Updated DateTime 4 167.64 cm 43.9 kg/m2 261112. 12 g 64 /min 18 /min 97.8 [degF] 93 % 93 % 112 mm[Hg] 70 mm[Hg] Lisy Munroe NP [address] [facility], [facility] [address], [place], [address], [facility] 4 10:22:42 Social History Question Answer Notes LastModified by Organizat ion Details LastModified Time Tobacco Smoking Status Never Smoker TRACI TORREZ [address] [facility], [address], [place], [address], [facility] 09/25/2020 19:44:55 Do You Have An Advance Directive? Yes Full Code; No Dialysis; Ok For Artificial Nutrition And Hydration Information not available 01/06/2022 What Is Your Level Of Alcohol Consumption? None Information not available 09/25/2020 How Much Tobacco Do You Chew? None Information not available 09/25/2020 What Is Your Code Status? Full Code [email or web address] Information not available 12/03/2021 Do You Or Have You Ever Used E-cigarettes Or Vape? Never Used Electronic Cigarettes Information not available 09/25/2020 Where Do You Live? Apartment Home With Help, Has Own Thi, Assistance And Motorized Wheelchair Information not available 04/05/2022 Legal Guardian? No Informati on not available 12/07/2021 Do You Have A Medical Power Of Negative Retoucher? Yes [email or web address] Information not available 12/03/2021 What Was The Date Of Your Most Recent Tobacco Screening? 01/10/2024 Information not available 01/10/2024 Do You Have An Out Of Hospital DNR? No [email or web address] Information not available 12/03/2021 Do You Or [...] Other Forms Of Tobacco Or Nicotine? No [email or web address] Information not available 12/07/2021 Sex: Unknown Functional Status None recorded. Mental Status None recorded. Family History Relationship Description Onset Age of this Age Resolved Age Notes LastModified by Organization Details LastModified Time Father No current problems or disability [email or web address] Not available 01/09 14:07:27 Mother No current problems or disability [email or web address] Not available 01/09 14:07:27 Notes:n/c Medical History No medical history recorded. Gynecological HistoryNo gynecological history recorded. Obstetrics History GPAL:G 0 P 0 0 0 0 Immunizations Vaccine Type Date Status Note Provider Nam e and Address Organization Details Recorded Time Influenza, split virus, quadrivalent, preservative 1 completed Not Available [facility] 10/25/2022 04:06:36 pneumococcal polysaccharide PPV23 0 completed Not Available [facility] 10/25/2022 04:06:36 COVID-19 vaccine, vector-nr, rS-ChAdOx1, PF, 0.5 mL 1 completed Not Available [facility] 10/25/2022 04:06:36 Td (adult) 8 completed Not Available [facility] 10/25/2022 04:06:37 Influenza, adjuvanted, quadrivalent, PF 3 completed Jenn garcia, [facility] 09/12/2023 12:42:27 Influenza, adjuvanted, quadrivalent, PF 3 completed Jenn garcia, [facility] 09/12/2023 12:42:40 COVID-19, mRNA, LNP-S, PF, 50 mcg/0.5 mL 3 completed Jenn garcia, [facility] 10/26/2023 12:36:29 Tdap 3 completed Jennkishore garcia, [facility] 10/26/2023 12:36:56 Pneumococcal conjugate PCV20, polysaccharide TMA145 conjugate, adjuvant, PF 4 completed Jenn garcia, [facility] 10/26/2023 12:37:34 Tdap 6 completed Not Available [facility] 10/25/2022 04:06:37 Influenza, high-dose, trivalent, PF 8 completed Not Available [facility] 10/25/2022 04:06:37 pneumococcal polysaccharide PPV23 8 completed Not Available [facility] 10/25/2022 04:06:36 Pneumococcal conjugate PCV 13 5 completed Not Available [facility] 10/25/2022 04:06:37 pneumococcal polysaccharide PPV23 11/16/200 1 completed Not Available [facility] 10/25/2022 04:06:36 Past Encounters Encounter ID Performer Location Encounter Start Date Encounter Closed Date Diagnosis/Indication Diagnosis SNOMED-CT Code Diagnosis ICD10 Code [id number] [address]IS [address] [place] [address] 09/25/2020 15:47:43 10/01/2020 11:36:53 Sepsis 58860649 A41.89 Acute urin preston tract infection 981160779 N30.00 Colitis 41954892 K52.89 Transient cerebral ischemia 241554068 G45.9 Paroxysmal atrial fibrillation 307454685 I48.0 Congestive heart failure 63053691 I50.89 History of cerebrovascular accident 453216005 Z86.73 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 5220646737 104 Z96.0 Aortic valve stenosis 60 070476 I35.0 Type 2 juvenal betes mellitus 21840560 E11.42 Chronic ob structive pulmonary disease 91246383 J41.8 Glaucoma 05707121 H42 Essential hypertension 78360578 I10 Morbid obesity 641724242 E66.01 Osteoarthritis 171720002 M15.0 History of eye enucleation 2613669093 92548 Z90.01 [id number] Kady Lund MD [address] [address] 09/28/2020 12:53:35 10/01/2020 11:48:26 Sepsis 76741824 A41.89 Acute urin preston tract infection 465495441 N30.00 Colitis 34448618 K52.89 Paroxysmal atrial fibrillation 676284662 I48.0 Congestive heart failure 56008123 I50.89 History of cerebrovascular accident 621695862 Z86.73 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 1020165226 104 Z96.0 Aortic valve stenosis 60 383174 I35.0 Type 2 juvenal betes mellitus 20198484 E11.42 Chronic ob structive pulmonary disease 80360187 J41.8 Glaucoma 16296875 H42 Essential hypertension 56520650 I10 Morbid obesity 917806608 E66.01 Osteoarthritis 322327324 M15.0 History of eye enucleation 3587964805 53058 Z90.01 [id number] TRACI TORREZ [address] [place] [address] 10/09/2020 13:18:28 10/13/2020 08:48:18 Congestive heart failure 76844732 I50.89 Essential hypertension 85429820 I10 Paroxysmal atrial fibrillation 890973565 I48.0 [id number] NOELLE MARIA [place] [address] [address] [place] [address] 10/14/2020 12:39:56 10/16/2020 10:09:52 Urethral urinary catheter in situ for skilled nursing use 6357417322 104 Z96.0 Dysuria 45066527 R30.0 [id number] NOELLE MARIA [address] [place] [address] [address] [place] [address] 10/19/2020 13:58:55 10/21/2020 11:27:28 Acute urinary tract infection 311670063 N30.00 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 in situ for skilled nursing use 8830253096 104 Z96.0 [id number] NOELLE MARIA [address] [place] [address] [address] [place] [address] 10/20/2020 12:44:09 10/23/2020 09:40:49 Congestive heart failure 64858906 I50.89 Essential hypertension 11616782 I10 History of cerebrovascular accident 023890347 Z86.73 Morbid obesity 141639780 E66.01 Osteoarthritis 036283414 M15.0 Paroxysmal atrial fibrillation 996372776 I48.0 Type 2 juvenal betes mellitus 64208652 E11.42 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 9419193395 104 Z96.0 Colitis 57380174 K52.89 Chronic ob structive pulmonary disease 58774400 J41.8 Acute urin preston tract infection 714061759 N30.00 [id number] FAUSTINO PABON NP [place] [address] [address] [place] [address] 11/03/2020 11:29:23 11/05/2020 11:26:14 Chronic obstructive pulmonary disease 65131191 J44.9 Type 2 juvenal betes mellitus 37851384 E11.9 [id number] Stefan Merlos MD [place] [address] [address] [place] [address] 11/12/2020 13:08:51 11/13/2020 11:39:34 Pain of left shoulder joint 0632205354 5647796 M25.512 Neck pain 22326411 M54.2 [id number] Leda Layton MD [place] [address] [address] [place] [address] 11/13/2020 06:27:51 11/16/2020 14:20:57 Chronic obstructive pulmonary disease 09549663 J41.0 Congestive heart failure 80689180 I50.22 Essential hypertension 27388502 I10 History of cerebrovascular accident 616378865 Z86.73 Osteoarthritis 504702729 M15.0 Paroxysmal atrial fibrillation 238299083 I48.0 Type 2 juvenal betes mellitus 94229438 E11.9 [id number] NOELLE MARIA [address] [place] [address] 12/04/2020 14:37:48 12/08/2020 16:12:10 History of cerebrovascular accident 213327975 Z86.73 Osteoarthritis 471848101 M15.0 Paroxysmal atrial fibrillation 040938279 I48.0 Type 2 juvenal betes mellitus 56693315 E11.42 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 7909033775 104 Z96.0 Morbid obesity 015267244 E66.01 Essential hypertension 78520657 I10 Chronic ob structive pulmonary disease 70746286 J41.8 Aortic valve stenosis 60 749074 I35.0 Congestive heart failure 07631374 I50.89 [id number] NOELLE MARIA [address] [place] [address] 12/24/2020 13:27:36 12/28/2020 15:17:56 Pain of right shoulder joint 0646655810 6605250 M25.511 [id number] NOELLE MARIA [address] [place] [address] 12/28/2020 13:28:54 12/30/2020 11:32:08 Pain of right shoulder joint 0963059437 3793626 M25.511 [id number] NOELLE MARIA [address] [place] [address] 01/19/2021 12:20:44 01/26/2021 12:28:25 Sepsis 57312165 A41.89 Acute urin preston tract infection 366161218 N30.00 Colitis 70024461 K52.89 Transient cerebral ischemia 655924086 G45.9 Paroxysmal atrial fibrillation 719742323 I48.0 Congestive heart failure 11369382 I50.89 History of cerebrovascular accident 353168474 Z86.73 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 3716062046 104 Z96.0 Aortic valve stenosis 60 023938 I35.0 Type 2 juvenal betes mellitus 10020944 E11.42 Chronic ob structive pulmonary disease 43185477 J41.8 Glaucoma 26574657 H42 Essential hypertension 93291935 I10 Morbid obesity 408777870 E66.01 Osteoarthritis 640633134 M15.0 History of eye enucleation 7128846706 05299 Z90.01 Pain of ri ght shoulder joint 8633494131 5332693 M25.511 [id number] PATSY EDEN PA-C [facility] on [address] [place] [address] 12/03/2021 15:59:43 12/09/2021 16:05:45 Chronic obstructive pulmonary disease 11888746 J44.9 COVID-19 366383175 U07.1 Cellulitis of left lower limb 7401066259 3937380 L03.116 Acute hypo xemic respiratory failure 705427091 J96.01 Type 2 juvenal betes mellitus with peripheral angiopathy 010161721 E11.51 Candidal intertrigo 2661 76544 B37.2 Neurogenic urinary bladder 278332658 N31.9 Functional fecal incontinence 423369644 R15.9 Paroxysmal atrial fibrillation 513818761 I48.0 Essential hypertension 93566252 I10 Vitamin D deficiency 347 93306 E55.9 Moderate p ersistent asthma 470084958 J45.40 Congestive heart failure 20708779 I50.9 Dyslipidemia 333513079 E 78.5 Chronic neck pain 681854 5112 107 M54.2 Chronic back pain 747430 002 M54.9 Allergic rhinitis 378167 04 J30.9 Advance care planning 71 8999027 Z71.89 [facility] for [facility] 747730157 Z91.81 [id number] Kady Lund MD [facility] on [address] [place] [address] 12/07/2021 18:17:25 12/10/2021 14:46:47 Chronic obstructive pulmonary disease 22723260 J41.8 Congestive heart failure 64586807 I50.89 Type 2 juvenal betes mellitus 58681474 E11.42 Morbid obesity 898286010 E66.01 Paroxysmal atrial fibrillation 211299025 I48.0 Osteoarthritis 250300675 M15.0 Essential hypertension 16887882 I10 Candidiasis of skin 4988 3006 B37.2 Post-acute COVID-19 1119 209787 U07.1 COVID-19 974516349 U07.1 Hyperlipidemia 80270094 E78.49 Vitamin D deficiency 347 43779 E56.8 [id number] PATSY EDEN PA-C [facility] on [address] [place] [address] 12/09/2021 11:49:10 12/14/2021 10:12:06 Type 2 diabetes mellitus 07872931 E11.42 Paroxysmal atrial fibrillation 785654731 I48.0 Osteoarthritis 766226332 M15.0 [id number] FAUSTINO PABON NP [address] [address] 01/06/2022 10:52:44 01/12/2022 15:31:48 Acute urinary tract infection 122632086 N30.00 Type 2 juvenal betes mellitus 75882862 E11.42 Vitamin D deficiency 347 62494 E56.8 Paroxysmal atrial fibrillation 268809427 I48.0 Osteoarthritis 826990445 M15.0 Hyperlipidemia 54703783 E78.49 Congestive heart failure 89913425 I50.89 Chronic ob structive pulmonary disease 57599188 J41.8 Essential hypertension 92336382 I10 [id number] FAUSTINO PABON NP [address] [address] 01/07/2022 11:00:47 01/12/2022 16:07:23 Acute urinary tract infection 412562894 N30.00 Type 2 juvenal betes mellitus 65337273 E11.42 [id number] FAUSTINO PABON NP [address] [address] 01/11/2022 11:56:32 01/18/2022 14:35:40 Acute urinary tract infection 804320625 N30.00 History of cerebrovascular accident 996320288 Z86.73 Congestive heart failure 39476737 I50.89 [id number] Leda Layton MD [address] [address] 01/12/2022 05:26:23 01/18/2022 14:54:45 History of cerebrovascular accident 574077569 Z86.73 Paroxysmal atrial fibrillation 214766170 I48.0 Type 2 juvenal betes mellitus 81923236 E11.42 Asthenia 83916806 R53.1 Essential hypertension 21513267 I10 Chronic ob structive pulmonary disease 92544543 J41.8 [id number] FAUSTINO PABON NP [address] [address] 01/17/2022 12:58:09 01/25/2022 12:24:51 Acute urinary tract infection 061601810 N30.00 Type 2 juvenal betes mellitus 55744856 E11.42 Vitamin D deficiency 347 77064 E56.8 Paroxysmal atrial fibrillation 695855320 I48.0 Osteoarthritis 375412414 M15.0 Hyperlipidemia 85298906 E78.49 Congestive heart failure 03619019 I50.89 Chronic ob structive pulmonary disease 76398640 J41.8 Essential hypertension 39496151 I10 [id number] FAUSTINO PABON NP [address] [address] 03/31/2022 11:01:20 04/05/2022 20:26:42 Type 2 diabetes mellitus 22463772 E11.42 Vitamin D deficiency 347 24547 E56.8 Paroxysmal atrial fibrillation 817391365 I48.0 Osteoarthritis 276559267 M15.0 Hyperlipidemia 91330112 E78.49 Congestive heart failure 19153404 I50.89 Chronic ob structive pulmonary disease 34094395 J41.8 Essential hypertension 30729366 I10 Morbid obesity 147362710 E66.01 [id number] FAUSTINO PABON NP [address] [address] 04/01/2022 12:23:01 04/06/2022 16:25:58 Chronic obstructive pulmonary disease 02807988 J41.8 Osteoarthritis 951453282 M15.0 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 in situ for skilled nursing use 4777868751 104 Z96.0 [id number] FAUSTINO PABON NP [address] [address] 04/04/2022 13:31:43 04/07/2022 15:11:22 Congestive heart failure 83432156 I50.89 Paroxysmal atrial fibrillation 026663724 I48.0 [id number] Kady Lund MD [address] [address] 04/05/2022 15:28:39 04/12/2022 13:07:36 Congestive heart failure 39755601 I50.89 Paroxysmal atrial fibrillation 847002540 I48.0 Chronic ob structive pulmonary disease 12208088 J41.8 Osteoarthritis 451371116 M15.0 Type 2 juvenal betes mellitus 03874623 E11.42 Vitamin D deficiency 347 03011 E56.8 Hyperlipidemia 87432068 E78.49 Essential hypertension 39408249 I10 Morbid obesity 163507458 E66.01 Asthenia 93425174 R53.1 Bacteriuria 14229213 R82 .71 N39.498 [id number] FAUSTINO PABON NP [address] [address] 04/11/2022 11:18:46 04/14/2022 12:04:56 Acute urinary tract infection 533600829 N30.00 Chronic ob structive pulmonary disease 82785095 J41.8 [id number] FAUSTINO PABON NP [address] [address] 04/21/2022 12:50:33 04/26/2022 14:58:24 Acute urinary tract infection 059300545 N30.00 Morbid obesity 663825003 E66.01 [id number] FAUSTINO PABON NP [address] [address] 04/28/2022 12:32:14 05/03/2022 15:40:31 Chronic obstructive pulmonary disease 72577513 J41.8 Morbid obesity 697866853 E66.01 Type 2 juvenal betes mellitus 74700059 E11.42 Vitamin D deficiency 347 54972 E56.8 Paroxysmal atrial fibrillation 710170325 I48.0 Osteoarthritis 390325245 M15.0 Hyperlipidemia 44222223 E78.49 Congestive heart failure 18436654 I50.89 Essential hypertension 16229003 I10 [id number] FAUSTINO PABON NP [address] [address] 05/11/2022 11:51:59 05/18/2022 15:23:58 Chronic obstructive pulmonary disease 09506517 J41.8 Congestive heart failure 95018172 I50.89 Morbid obesity 854717877 E66.01 Type 2 juvenal betes mellitus 86662128 E11.42 Vitamin D deficiency 347 90329 E56.8 Paroxysmal atrial fibrillation 292804276 I48.0 Osteoarthritis 595247794 M15.0 Hyperlipidemia 43283072 E78.49 Essential hypertension 16871751 I10 [id number] FAUSTINO PABON NP [address] [address] 05/16/2022 10:20:33 05/18/2022 16:24:08 Chronic obstructive pulmonary disease 23224132 J41.8 Morbid obesity 194770356 E66.01 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 4814937282 104 Z96.0 [id number] [facility] [address] [place] [address] 10/07/2022 08:11:14 10/10/2022 13:33:35 Urinary tract infectious disease 81343030 N39.0 Neurogenic urinary bladder 097232923 N31.8 Morbid obesity 738943316 E66.01 Type 2 juvenal betes mellitus 65004803 E11.42 Congestive heart failure 82751944 I50.89 Chronic ob structive pulmonary disease 29940197 J41.8 Obstructiv e sleep apnea syndrome 14664482 G47.33 Essential hypertension 13887970 I10 Atrial fibrillation 4943 6004 I48.19 Aortic valve stenosis 60 439447 I35.0 Hyperlipidemia 24193727 E78.49 Osteoarthritis 305335608 M15.0 Neuropathy 864530553 G62 .89 [id number] [facility] [address] [place] [address] 10/11/2022 08:36:19 10/13/2022 11:11:56 Urinary tract infectious disease 32097284 N39.0 Neurogenic urinary bladder 427363226 N31.8 Morbid obesity 896971444 E66.01 Type 2 juvenal betes mellitus 32463178 E11.42 Congestive heart failure 30432722 I50.89 Chronic ob structive pulmonary disease 77741459 J41.8 Obstructiv e sleep apnea syndrome 10566771 G47.33 Essential hypertension 23036590 I10 Atrial fibrillation 4943 6004 I48.19 Aortic valve stenosis 60 601992 I35.0 Hyperlipidemia 65800493 E78.49 Osteoarthritis 866776876 M15.0 Neuropathy 556860747 G62 .89 [id number] ALEAH ATKINS NP [facility] [address] [address] 01/10/2024 14:05:26 01/18/2024 11:38:18 Chronic obstructive pulmonary disease 20457588 J41.8 Atrial fibrillation 4943 6004 I48.19 Type 2 juvenal betes mellitus 36850999 E11.42 Congestive heart failure 90326622 I50.89 Essential hypertension 56451625 I10 History of cerebrovascular accident 615670108 Z86.73 Neurogenic urinary bladder 145019380 N31.8 Neuropathy 283324493 G62 .89 Vitamin D deficiency 347 92054 E56.8 Diarrhea 62654566 R19.7 [id number] TRACI BERG [facility] [address] [address] 01/12/2024 11:24:53 01/18/2024 13:03:05 Aphthous ulcer of mouth 417949464 K12.0 Abdominal pain 14516887 R10.9 [id number] Lisy Munroe NP [facility] [address] [address] 01/15/2024 14:01:35 01/18/2024 14:27:24 Abdominal pain 15849389 R10.9 Chronic ob structive pulmonary disease 60904413 J41.8 Atrial fibrillation 4943 6004 I48.19 Type 2 juvenal betes mellitus 99397812 E11.42 Congestive heart failure 96772724 I50.89 Essential hypertension 30280543 I10 History of cerebrovascular accident 778377688 Z86.73 Neurogenic urinary bladder 332237556 N31.8 Neuropathy 964480197 G62 .89 Vitamin D deficiency 347 88763 E56.8 Candidiasis 10248506 B37 .9 [id number] Kady Lund MD [address] [address] 01/16/2024 18:15:29 01/18/2024 15:13:53 Abdominal pain 66172830 R10.84 Candidiasis 56358037 B37 .9 Chronic ob structive pulmonary disease 47216939 J41.8 Atrial fibrillation 4943 6004 I48.19 Type 2 juvenal betes mellitus 72755343 E11.42 Congestive heart failure 54557368 I50.89 Essential hypertension 70882248 I10 History of cerebrovascular accident 290224169 Z86.73 Neurogenic urinary bladder 976521057 N31.8 Neuropathy 885699296 G62 .89 Vitamin D deficiency 347 23632 E56.8 Diarrhea 91802455 K59.1 Aphthous u lcer of mouth 059101852 K12.0 Hyponatremia 83801488 E8 7.1 [id number] Lisy Munroe NP [address] [address] 01/23/2024 10:20:00 01/25/2024 15:41:39 Diarrhea 89362269 K59.1 Abdominal pain 10460533 R10.84 Hyponatremia 51401617 E8 7.1 Aphthous u lcer of mouth 197609479 K12.0 Chronic ob structive pulmonary disease 66479676 J41.8 Essential hypertension 01392964 I10 Atrial fibrillation 4943 6004 I48.19 Type 2 juvenal betes mellitus 20566382 E11.42 Congestive heart failure 13964875 I50.89 Candidiasis 48087885 B37 .9 History of cerebrovascular accident 694513246 Z86.73 Neurogenic urinary bladder 786200642 N31.8 Neuropathy 977066820 G62 .89 Vitamin D deficiency 347 71156 E56.8 Health Concerns Section Related Observation LastModified by Organization Detai ls LastModified Time None Recorded Concern Status LastModified by Organization Details LastModified Time None Recorded Advance Directives Directive Y: full code; no dialysis; o k for artificial nutrition and hydration Payers Encounter Date Sequence Insurance Name Policy Number Policy Adler Covered Member ID Adler Member ID Guarantor Name 01/10/2024 2 [place] Aleah Connor [id number] Aleah Connor 01/10/2024 1 MEDICARE B-[place]: [facility] Aleah Connor [id number] Aleah Connor 01/12/2024 2 [place] Aleah Connor [id number] Aleah Connor 01/12/2024 1 MEDICARE B-[place]: [facility] Aleah Connor [id number] Aleah Connor 01/15/2024 2 [place] Aleah Connor [id number] Aleah Connor 01/15/2024 1 MEDICARE B-[place]: [facility] Aleah Connor [id number] Aleah Connor 01/16/2024 2 [place] Aleah Connor [id number] Aleah Connor 01/16/2024 1 MEDICARE B-[place]: [facility] Aleah Connor [id number] Aleah Connor 01/23/2024 2 [place] Aleah Connor [id number] Aleah Connor 01/23/2024 1 MEDICARE B-[place]: [facility] Aleah Connor [id number] Aleah Connor Notes Date Note Type Note Provider Name and Address Organization Details Recorded Time 01/10/2024 text/html Aleah is seen to day for initial intake. She is a 73 yo woman, admitted to [facility] today 01/09 from [facility] for continued care/respite and rehab. She presented to [facility] 01/08/24 with diarrhea; soaked thru mattress [...] aortic valve stenosis. ALEAH ATKINS NP [address], [address], [place], [address], [facility] 01/10/2024 14:49:28 01/12/2024 text/html This is a 73 yr old femal seen today for acute rounding visit. She was recently admitted to facility from [facility]. It looks likes she initially presented to [facility] on 01/05 with abdominal pain and vomiting, [...] discharged back to home and returned to [facility] on 01/07 with diarrhea. On exam when [...] ordered an abdominal xray. TRACI BERG [address], [address], [place], [address], [facility] 01/15/2024 11:42:15 01/15/2024 text/html Aleah is a 73 yr old women seen today for acute rounding visit. Sybil was recently admitted to facility from [facility]. Initially presented to [facility] on 01/05 with abdominal pain and vomiting, [...] colon and rectum. Lisy Munroe, ISRA [address], [address], [place], [address], [facility] 01/15/2024 14:50:19 01/16/2024 text/html This is a 73 yo woman who is here for rehab after 2 ED visits for abd pain, diarrhea and vomiting.She initially presented to the [facility] on 12/27 after having brown emesis, [...] and aortic stenosis. Kady Lund MD [address], [address], [place], [address], [facility] 01/16/2024 19:36:57 01/23/2024 text/html Patient is seen [...] and respite. She initially presented to the [facility] on 12/27 after having brown emesis, [...] was d/c'd home. She returned on to [facility] on 01/07 after having a large diarrheal stool which soaked through her mattress. She had mild hyponatremia (Na+131), but labs were otherwise unremarkable. Consideration was given for admission, but determined to not qualify, so arranged for STR and transferred here on 01/09. While here at [facility]:She continues to remain at baseline she [...] yellow clear urine noted. Lisy Munroe NP [address] [place] [address], [address], [place], [address], [facility] 01/23/2024 12:25:11 OBGyn Episode No OBEpisode recorded.
[2024-06-27 21:43] LABS: Influenza A PCR NEGATIVE (Negative); Influenza B PCR NEGATIVE (Negative); Resp Syncy Virus RNA Qual PCR NEGATIVE (Negative); SARS COV2 PCR INHOUSE NEGATIVE (Negative)
[2024-06-27] MEDS: Magnesium Sulfate/H2O 2 GM/50 ML PIGGYBACK IV (21:58)
[2024-06-27 22:37] VITALS: BP 151/59; PULSE 72; RESP 18; TEMP 36.5; O2SAT 97
--- NOTE | 2024-06-27 22:47 | PC.NURSE ---
pt arrives via EMS from home. pt arrives wearing shirt only, with alex pad, and indwelling rai catheter. pt uses 4L o2 at home via nasal canula. Rai catheter patent, draining foul smelling yellow urine. UA sent. pt skin is flaky and dry, lips are dry cracked with white build up around lips. Linens were removed from under pt and she was changed into hospital attire. pt c/o lower abdominal pain and UTI symptoms pt sts that she has a PRODUCER DIRECTOR that has been provider her care at home since her discharge. Pt tells this scientific technical writer that PRODUCER DIRECTOR applies gold kidd powder into [pt] vagina 20g IV placed in right wrist, labs obtained including lactic and cultures. pt labs were significant for magnesium of 1.4 and random glucose of 429 Pt rec 1GM of APAP IV, and zofran. Currently infusing 2mg Mg MD Greer evaluated pt at bedside- imaging obtained- results pending
--- NOTE | 2024-06-27 23:05 | PC.NURSE ---
CT abdomen pelvis : Complex mass superior to fundal uterus. Previously it measured cystic density, likely ovarian origin. Now it measures more solid and could represent internal hemorrhage. Correlate with ultrasound. US to bedside for study
[2024-06-27 23:28] VITALS: BP 154/55; PULSE 75; RESP 16; TEMP 36.6; O2SAT 98
[2024-06-28 02:20] VITALS: BP 124/42; PULSE 69; RESP 16; TEMP 36.6; O2SAT 96
[2024-06-28 04:10] VITALS: BP 124/42; PULSE 69; RESP 16; TEMP 36.6; O2SAT 96
== END 2024-06-28 04:11 | disposition home or self-care (01) ==
PROVIDERS: Emergency Provider Emergency Medicine; PCP Family Medicine
DX: K59.00 Constipation, unspecified (principal); R10.33 Periumbilical pain; E83.42 Hypomagnesemia; Z03.818 Encounter for observation for suspected exposure to other biological agents ruled out; J45.909 Unspecified asthma, uncomplicated; Z79.899 Other long term (current) drug therapy
CPT/HCPCS: 0241U; 36415; 74176; 76856; 80048; 80076; 81001; 83605; 83690; 83735; 84484; 85025; 87040; 87086; 93005; 96365; 96366; 96367; 96375; 99285; J0131; J2405; J3475

== ENCOUNTER → 2024-06-27 20:30 | Outpatient (BNV) | payer MEDICARE, MEDICAID, SELFPAY | PROVIDERS: Emergency Provider Emergency Medicine; PCP Family Medicine; Visit Provider Internal Medicine | DX: R10.9 Unspecified abdominal pain (principal); E11.65 Type 2 diabetes mellitus with hyperglycemia | CPT/HCPCS: 93010 ==

== ENCOUNTER 2024-07-03 16:13 | Emergency (ER) | payer MEDICARE, MEDICAID, SELFPAY ==
[2024-07-03 16:24] VITALS: BP 179/67; PULSE 69; RESP 20; TEMP 36.9; O2SAT 98; BMI 46.4
--- NOTE | 2024-07-03 16:37 | ED_ITS ---
HPI - Female Genitourinary General Chief complaint: Urogenital-Female Stated complaint: displaced catheter Time Seen by Provider: 07/03/24 16:30 Source: patient, EMS and old records reviewed Mode of arrival: EMS Limitations: no limitations History of Present Illness ED Provider: DR. Duke HPI Narrative: A 73-year-old female returned to the emergency department reporting that Molina catheter is not draining and leakage of urine from around it, patient was seen in the emergency department last week for abdominal pain and UTI had unremarkable abdominal CT, patient has no nausea, no vomiting, normal bowel movement this morning, passing flatus, no fever, no chills, eating with a normal good appetite, patient is doing well at home with [employer] SUPERINTENDENT, otherwise patient has no complaint. Patient was placed on Macrobid on June 26 for 7 days to treat UTI. Related Data Home Medications ?Medication ?Instructions ?Recorded ?Confirmed albuterol sulfate 90 mcg/actuation 2 puff inhalation Q4-6H PRN 01/23/21 10/26/23 aerosol inhaler (Proventil HFA) Wheezing apixaban 5 mg tablet (Eliquis) 5 mg PO BID 01/23/21 01/08/24 aspirin 81 mg tablet,delayed 81 mg PO DAILY 10/24/21 01/08/24 release insulin glargine 100 unit/mL (3 70 unit subcut DAILY 10/24/21 01/08/24 mL) subcutaneous pen (Lantus Solostar U-100 Insulin) furosemide 40 mg tablet 80 mg PO DAILY 03/09/22 01/08/24 dulaglutide 0.75 mg/0.5 mL 0.75 mg subcut TU 10/23/22 10/26/23 subcutaneous pen injector (Trulicity) insulin lispro 100 unit/mL 1 sliding scale dose subcut QIDACHS 10/23/22 01/08/24 subcutaneous pen (Humalog KwikPen (U-100) Insulin) acetaminophen 325 mg tablet 650 mg PO Q6H PRN Pain 01/27/23 01/08/24 ergocalciferol (vitamin D2) 1,250 1,250 mcg PO TH 01/27/23 01/08/24 mcg (50,000 unit) capsule fluticasone furoate 200 1 ea inhalation DAILY 01/27/23 10/26/23 mcg-vilanterol 25 mcg/dose inhalation powder (Breo Ellipta) gabapentin 300 mg capsule 300 mg PO BID 01/27/23 01/08/24 montelukast 10 mg tablet 10 mg PO BEDTIME 01/27/23 01/08/24 oxybutynin chloride 5 mg 5 mg PO BEDTIME 01/27/23 01/08/24 tablet,extended release 24 hr losartan 25 mg tablet 25 mg PO DAILY 10/26/23 01/08/24 metoprolol succinate 50 mg 50 mg PO DAILY 10/26/23 01/08/24 tablet,extended release 24 hr lisinopril 5 mg tablet 5 mg PO DAILY 12/01/23 01/08/24 Previous Rx's ?Medication ?Instructions ?Recorded albuterol sulfate 2.5 mg/3 mL 2.5 mg (3 mL) inhalation Q4-6H PRN 07/25/22 (0.083 %) solution for nebulization shortness of breath or wheezing #75 mL albuterol sulfate 90 mcg/actuation 2 puff inhalation Q6H PRN 10/26/23 aerosol inhaler shortness of breath or wheezing #8.5 grams doxycycline hyclate 100 mg tablet 100 mg PO BID #14 tabs 10/26/23 guaifenesin 200 mg/5 mL oral liquid 200 mg (5 mL) PO Q4H PRN cough 10/26/23 #118 mL prednisone 20 mg tablet 20 mg PO BID #10 tabs 10/26/23 nitrofurantoin 100 mg PO Q12H 7 days #14 caps 06/26/24 monohydrate/macrocrystals 100 mg capsule (Macrobid) docusate sodium 100 mg capsule 100 mg PO BID constipation #20 caps 06/28/24 (Colace) sennosides 8.6 mg tablet (senna) 8.6 mg PO BEDTIME PRN constipation 06/28/24 #30 tabs cefuroxime axetil 250 mg tablet 250 mg PO BID #14 tabs 07/03/24 Allergies Allergy/AdvReac Type Severity Reaction Status Date / Time silver sulfadiazine Allergy Unknown UNK Verified 07/03/24 16:26 [From TRINY] Review of Systems Review of Systems: All other systems are reviewed and are negative Constitutional: Reports as per HPI and Reports no additional constitutional complaints Eyes: Reports as per HPI and Reports no additional eye complaints Reports system reviewed and no additional complaints, except as documented Cardiovascular: Reports as per HPI and Reports no additional cardiovascular complaints Respiratory: Reports as per HPI and Reports no additional respiratory complaints Gastrointestinal: Reports as per HPI and Reports no additional gastrointestinal complaints Genitourinary: Reports no additional female genitourinary complaints Musculoskeletal: Reports no additional musculoskeletal complaints Skin/Breast: Reports system reviewed and no additional complaints, except as docu Psychiatric: Reports no additional psychiatric complaints Endocrine: Reports no additional endocrine complaints Hematologic/Lymphatic: Reports no additional hematologic/lymphatic complaints Allergic/Immunologic: Reports no additional allergic/immunologic complaints Reports system reviewed and no additional complaints, except as documented and Reports Abnormal speech present [facility] Past Medical History Medical History Chronic hypoxemic respiratory failure Obstructive sleep apnea Hypotonic neurogenic bladder Chronic heart failure with preserved ejection fraction (HFpEF) Diarrhea Bacteriuria Chronic UTI UTI (urinary tract infection) Non-rheumatic aortic stenosis Aortic stenosis Paroxysmal atrial fibrillation H/O: CVA (cerebrovascular accident) Glaucoma Severe sepsis Obesity Osteoarthritis COPD (chronic obstructive pulmonary disease) Chronic UTI Chronic indwelling Molina catheter Diabetes Hypertension Congestive heart failure Surgical History H/O enucleation of left eyeball H/O adenoidectomy History of tonsillectomy Family History Family History Father No problems noted. Mother No problems noted. Social History Social History Household Members: None Housing: Apartment Do you presently have visiting nurse or other home services: Yes (care givers) Unable to assess alcohol history related to: Unknown Alcohol intake: former Patient Tobacco Use Status: Never used Tobacco Second Hand Smoke Exposure: No Advance Directives: Yes Advance Directives on File: Yes Advance Directives Date on File: 07/09/20 Do you have a plan to hurt others: No Plan service: No Current occupational status: disabled Physical Exam Vital Signs: Vital Signs: Last Vital Signs Temp 98.4 F 07/03/24 16:24 Pulse 69 07/03/24 16:24 Resp 20 07/03/24 16:24 BP 179/67 H 12/25/24 16:24 Pulse Ox 98 07/03/24 16:24 O2 Del Method Nasal Cannula 07/03/24 16:24 Oxygen Flow Rate 2 07/03/24 16:24 BMI result Body Mass Index 46.4 Vital signs have been reviewed and appear to be correct. Blood pressure nathan vated. Heart rate normal. Respiratory rate normal. Temperature normal. Oxygen saturation normal. Appearance: Alert. Oriented X3. No acute distress. Head: Normal external exam. Normocephalic. Atraumatic. No Augustin signs noted. No raccoon eyes noted Eyes: PERRLA. EOMI. Conjunctiva and sclera normal. Eyelids normal. ENT: TM's Normal. Pharynx normal. Uvula midline. Moist mucous membranes. No trismus noted. No drooling noted. No muffled voice noted. Neck: Normal inspection. Neck supple. FROM. No adenopathy. Thyroid Normal. No meningeal signs. No neck mass noted. CVS: Normal heart rate and rhythm. Heart sound normal. No murmurs noted. Pulses normal throughout. Respiratory: No respiratory distress. Painless inspiration. Breath sounds normal. No wheezes/rales/rhonchi noted. Chest nontender. No accessory muscle usage noted or decreased air movement noted. Abdomen: Obese, Soft and nontender. Bowel sounds normal in all 4 quadrants. No distention noted. No organomegaly noted. No visible injury noted. Back: No CVA tenderness. Full range of motion noted. Skin: Skin warm and dry. Normal skin color. Normal skin turgor. No rashes/lesions/lacerations noted. Extremities: No lower extremity edema. Extremities exhibit normal range of motion. Extremities nontender. Neuro: Oriented X 3. Cranial nerve exam: II-XII are grossly intact No motor deficit. No sensory deficit. Reflexes normal. Course Reevaluation(s) Reevaluation #1: Chronic indwelling Molina catheter, will start the patient on cefuroxime for UTI, discharge to follow-up with PCP. Time: 18:33 Medical Decision Making Differential Diagnosis Differential Diagnoses: The differential diagnosis associated with the presentation includes (Molina catheter complication, UTI) Admission/Observation Consideration of admission/observation: Escalation of care including admission/observation considered Lab Data MDM Lab Attestation statement: I reviewed the patient's lab results. Labs: Lab Results 07/03/24 Range/Units 17:26 Urine Color Yellow Urine Appearance Clear Urine pH 7.0 (5.0-9.0) Ur Specific [place] 1.020 (1.005-1.025) Urine Protein 300 (3+) H (Neg-Trace) mg/dL Urine Glucose (UA) 250 H (Negative) mg/dL Urine Ketones Negative (Negative) mg/dL Urine Blood Small (1+) H (Negative) Urine Nitrite Negative (Negative) Ur Leukocyte Esterase Small (1+) H (Negative) Urine RBC 6-10 H (0-2) /HPF Urine WBC 11-20 H (0-5) /HPF Ur Squamous Epith Cells 11-20 (0-2) /HPF Urine Bacteria None Seen (None Seen) Hyaline Casts 3-5 (0-2) /LPF Discharge Plan Discharge Clinical Impression: Chronic indwelling Molina catheter, Complication of Molina catheter Patient Disposition: Home, Self-Care Instructions: Molina Catheter Placement and Care (ED) Prescriptions: New cefuroxime axetil 250 mg tablet 250 mg PO BID Qty: 14 0RF No Action albuterol sulfate [Proventil HFA] 90 mcg/actuation HFA aerosol inhaler 2 puff inhalation Q4-6H PRN (Reason: Wheezing) Eliquis 5 mg tablet 5 mg PO BID albuterol sulfate 2.5 mg /3 mL (0.083 %) solution for nebulization 2.5 mg inhalation Q4-6H PRN (Reason: shortness of breath or wheezing) Qty: 75 0RF insulin glargine [Lantus Solostar U-100 Insulin] 100 unit/mL (3 mL) insulin pen 70 unit subcut DAILY aspirin 81 mg Tablet,Delayed Release (Dr/Ec) 81 mg PO DAILY furosemide 40 mg tablet 80 mg PO DAILY insulin lispro [Humalog KwikPen Insulin] 100 unit/mL insulin pen 1 sliding scale dose subcut QIDACHS Protocol: Insulin Correction Scale Less than or equal to 110 ---- Give (units): 0 111 to 150 Give (units): 0 151 to 200 Give (units): 2 201 to 250 Give (units): 4 251 to 300 Give (units): 6 301 to 350 Give (units): 8 Greater than 350 Give (units): 10 Call MD if Blood Glucose > : 350 Trulicity 0.75 mg/0.5 mL pen injector 0.75 mg subcut TU Patient Comments: per pt's daughter Stefany nitrofurantoin monohyd/m-cryst [Macrobid] 100 mg capsule 100 mg PO Q12H 7 Days Qty: 14 0RF Rx Instructions: must administer with a meal/food acetaminophen 325 mg tablet 650 mg PO Q6H PRN (Reason: Pain) oxybutynin chloride 5 mg tablet extended release 24hr 5 mg PO BEDTIME gabapentin 300 mg capsule 300 mg PO BID montelukast 10 mg tablet 10 mg PO BEDTIME ergocalciferol (vitamin D2) 1,250 mcg (50,000 unit) capsule 1,250 mcg PO TH fluticasone furoate-vilanterol [Breo Ellipta] 200-25 mcg/dose blister with device 1 ea INHALATION DAILY albuterol sulfate 90 mcg/actuation HFA aerosol inhaler 2 puff inhalation Q6H PRN (Reason: shortness of breath or wheezing) Qty: 8.5 0RF prednisone 20 mg tablet 20 mg PO BID Qty: 10 0RF Patient Comments: patient's daughter states patient does not take doxycycline hyclate 100 mg tablet 100 mg PO BID Qty: 14 0RF Patient Comments: patient's daughter states patient does not take guaifenesin 200 mg/5 mL liquid 200 mg PO Q4H PRN (Reason: cough) Qty: 118 0RF Patient Comments: patient's daughter states patient does not take metoprolol succinate 50 mg tablet extended release 24 hr 50 mg PO DAILY losartan 25 mg tablet 25 mg PO DAILY docusate sodium [Colace] 100 mg capsule 100 mg PO BID Qty: 20 0RF sennosides [senna] 8.6 mg tablet 8.6 mg PO BEDTIME PRN (Reason: constipation) Qty: 30 0RF lisinopril 5 mg tablet 5 mg PO DAILY Print Language: [place]
--- NOTE | 2024-07-03 16:56 | PC.NURSE ---
patient presents from home, states her rai cath fell ot while at home, patient states she does not think that the last person put enough fluid in the balloon. old rai cath found between patients legs with bed change, balloon partially intact. patient brought own catheter with her due to specific size. this RN placed 26fr rai cath, immediate urine output. patient tolerated procedure wwell
--- NOTE | 2024-07-03 17:28 | PC.NURSE ---
patient had 200cc clear yellow urine output, UA collected by this RN off the rai port
[2024-07-03 17:32] LABS: Appearance Urine Clear; Color Urine Yellow; Glucose Urine UA 250 mg/dL (Negative); Leukocyte Esterase Urine Small (1+) (Negative); Nitrite Urine Negative (Negative); UMIC TRIGGER UACC YES; Urine Blood Small (1+) (Negative); Urine Ketones Negative (Negative); Urine Protein 300 (3+) mg/dL (Neg-Trace)
[2024-07-03 17:36] LABS: Bacteria Urine None Seen (None Seen); UACC Culture Trigger YES
--- NOTE | 2024-07-03 18:26 | PC.NURSE ---
patient had formed bowel movement on bed [place]. patient then requested sandwich, patient given sandwich. plan of care on going
[2024-07-03] MEDS: cefuroxime axetiL 250 MG TABLET PO (18:36)
[2024-07-03 20:19] VITALS: BP 180/68; PULSE 73; RESP 18; TEMP 36.7; O2SAT 98
== END 2024-07-03 20:21 | disposition home or self-care (01) ==
PROVIDERS: Emergency Provider Emergency Medicine
DX: T83.098A Other mechanical complication of other urinary catheter, initial encounter (principal); Y73.8 Miscellaneous gastroenterology and urology devices associated with adverse incidents, not elsewhere classified; Y92.89 Other specified places as the place of occurrence of the external cause; E11.9 Type 2 diabetes mellitus without complications; Z79.4 Long term (current) use of insulin; Z79.899 Other long term (current) drug therapy
CPT/HCPCS: 81001; 87086; 99283; 99284

== ENCOUNTER 2024-07-05 14:47 | Inpatient (IN) | payer MEDICARE, MEDICAID, SELFPAY ==
--- NOTE | ~2024-07-05 | XR_ITS ---
CLINICAL HISTORY: pneumonitis on ctabp 1 view chest x-ray Comparison: Chest x-ray from 10/26/2023 Findings: Bilateral pulmonary opacities are moderate to marked and new. Differential considerations include pneumonitis and pulmonary edema given obscuration of the pulmonary vasculature. Mild cardiomegaly and mediastinum are accentuated by technique. Small pleural effusion suggested. No pneumothorax. Degenerative changes include imaged left shoulder and left AC joint. 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 IMPRESSION: Moderate pulmonary opacities are nonspecific. Differential considerations include pneumonitis and pulmonary edema. This document has been electronically signed by: Allen Cordero MD on 07/06/2024 00:03:07
--- NOTE | ~2024-07-05 | CT_ITS ---
CLINICAL HISTORY: pain sbo CT abdomen and pelvis with contrast Comparison: None Findings: Mild bibasilar atelectasis and/or pneumonitis of the imaged lung bases. Valve calcifications and vascular calcifications are noted. Gallbladder is distended but otherwise unremarkable for CT. No significant change in 4 cm right lobe liver mass. Hemangioma is favored at this time, but not definitively confirmed by [address] Mild bilateral adrenal hyperplasia. Spleen is nonenlarged. Mild volume loss of the pancreas. No hydronephrosis. No suspicious features of small cystic lesions in the kidneys. Small mesenteric and periaortic lymph nodes are nonspecific and may be reactive. No small bowel obstruction. Enteric contrast and/or dense ingested material is noted in the cecum with otherwise severe stool burden at the time of the imaging. Mild dilatation of the appendix measuring 0.8 cm (image number [id number] of series 4). This raises imaging concern for appendicitis. Especially is previous luminal gas is no longer present. No free intraperitoneal air. Mixed masses of the uterus likely due to fibroids with 6.77 cm pedunculated fibroid from the superior aspect of the uterus with uterus anteverted. Cspvmtlp-is-gyzssy wall thickening of the urinary bladder with catheter in place. No adnexal soft tissue mass by CT. Subcutaneous edema is noted. Mild rib deformities appear old chronic. L4 and L5 osseous fusion. Degenerative changes include the hips, SI joints, and spine. Severe osteoarthritis of both hips with chronic appearing deformities of the avascular necrosis. IMPRESSION: 1. Mild dilatation of the appendix is concerning for appendicitis. 2. Severe stool burden. No small bowel obstruction. 3. Fibroids of the uterus. 4. Bibasilar atelectasis and/or pneumonitis of the partially imaged lung bases. This document has been electronically signed by: Allen Cordero MD on 07/05/2024 22:04:53
--- NOTE | ~2024-07-05 | XR_ITS ---
CLINICAL HISTORY: ?LBO 1 view abdomen Comparison: CT/SR - CT ABDOMEN PELVIS W IV CON - 07/05/24 21:08 EST Findings: This examination is mildly limited by patient body habitus. No convincing radiographic evidence for pneumatosis intestinalis or free intraperitoneal air on the provided radiographic images. Vague contrast material identified within the lumen of the colon and rectum. No acute fracture visualized. Extensive degenerative changes are present at the bilateral hips. Vascular calcifications are present. IMPRESSION: 1. Mildly limited exam. No convincing radiographic evidence for a bowel obstruction. This document has been electronically signed by: René East MD on 07/09/2024 23:52:54
[2024-07-05 14:57] VITALS: PULSE 79; O2SAT 100
[2024-07-05 15:18] VITALS: BP 127/46; PULSE 75; RESP 18; TEMP 36.8; O2SAT 99; BMI 45.6
--- NOTE | 2024-07-05 16:10 | ED.ABDPAIN ---
HPI - Abdominal Pain General Chief Complaint: Abdominal Pain Stated Complaint: ABD PAIN Time Seen by Provider: 07/05/24 16:09 Source: patient Limitations: no limitations History of Present Illness ED Provider: Franchesca Molina PA-C HPI narrative: 73 y/o F with hx of heart failure with EF 60-65% ECHO 08/2022, insulin-dependent diabetes mellitus, essential hypertension, prior CVA, chronic hypoxemic respiratory failure due to COPD with baseline 2 L supplemental oxygen, paroxysmal atrial fibrillation on Eliquis , morbid obesity, chronic indwelling Molina presents from home with the abdominal pain x5 days. Patient states she was discharged home within the past week from rehab. She has been having worsening diffuse abdominal discomfort with distention. Patient's last bowel movement was yesterday, however it was minimal in the stool was firm. Associated nausea with dry heaving, no active vomiting. Minimal flatus is being passed below. Patient states she has been having excessive eructation. She states she is currently being treated for a urinary tract infection. Denies fevers. Related Data Home Medications ?Medication ?Instructions ?Recorded ?Confirmed albuterol sulfate 90 mcg/actuation 2 puff inhalation Q4-6H PRN 01/23/21 10/26/23 aerosol inhaler (Proventil HFA) Wheezing apixaban 5 mg tablet (Eliquis) 5 mg PO BID 01/23/21 01/08/24 aspirin 81 mg tablet,delayed 81 mg PO DAILY 10/24/21 01/08/24 release insulin glargine 100 unit/mL (3 70 unit subcut DAILY 10/24/21 01/08/24 mL) subcutaneous pen (Lantus Solostar U-100 Insulin) furosemide 40 mg tablet 80 mg PO DAILY 03/09/22 01/08/24 dulaglutide 0.75 mg/0.5 mL 0.75 mg subcut TU 10/23/22 10/26/23 subcutaneous pen injector (Trulicity) insulin lispro 100 unit/mL 1 sliding scale dose subcut QIDACHS 10/23/22 01/08/24 subcutaneous pen (Humalog KwikPen (U-100) Insulin) acetaminophen 325 mg tablet 650 mg PO Q6H PRN Pain 01/27/23 01/08/24 ergocalciferol (vitamin D2) 1,250 1,250 mcg PO TH 01/27/23 01/08/24 mcg (50,000 unit) capsule fluticasone furoate 200 1 ea inhalation DAILY 01/27/23 10/26/23 mcg-vilanterol 25 mcg/dose inhalation powder (Breo Ellipta) gabapentin 300 mg capsule 300 mg PO BID 01/27/23 01/08/24 montelukast 10 mg tablet 10 mg PO BEDTIME 01/27/23 01/08/24 oxybutynin chloride 5 mg 5 mg PO BEDTIME 01/27/23 01/08/24 tablet,extended release 24 hr losartan 25 mg tablet 25 mg PO DAILY 10/26/23 01/08/24 metoprolol succinate 50 mg 50 mg PO DAILY 10/26/23 01/08/24 tablet,extended release 24 hr lisinopril 5 mg tablet 5 mg PO DAILY 12/01/23 01/08/24 Previous Rx's ?Medication ?Instructions ?Recorded albuterol sulfate 2.5 mg/3 mL 2.5 mg (3 mL) inhalation Q4-6H PRN 07/25/22 (0.083 %) solution for nebulization shortness of breath or wheezing #75 mL albuterol sulfate 90 mcg/actuation 2 puff inhalation Q6H PRN 10/26/23 aerosol inhaler shortness of breath or wheezing #8.5 grams doxycycline hyclate 100 mg tablet 100 mg PO BID #14 tabs 10/26/23 guaifenesin 200 mg/5 mL oral liquid 200 mg (5 mL) PO Q4H PRN cough 10/26/23 #118 mL prednisone 20 mg tablet 20 mg PO BID #10 tabs 10/26/23 nitrofurantoin 100 mg PO Q12H 7 days #14 caps 06/26/24 monohydrate/macrocrystals 100 mg capsule (Macrobid) docusate sodium 100 mg capsule 100 mg PO BID constipation #20 caps 06/28/24 (Colace) sennosides 8.6 mg tablet (senna) 8.6 mg PO BEDTIME PRN constipation 06/28/24 #30 tabs cefuroxime axetil 250 mg tablet 250 mg PO BID #14 tabs 07/03/24 Allergies Allergy/AdvReac Type Severity Reaction Status Date / Time silver sulfadiazine Allergy Unknown UNK Verified 07/05/24 15:19 [From TRINY] Review of Systems Review of Systems Yes all other systems are reviewed and are negative Constitutional: Denies fatigue and Denies fever(s) Cardiovascular: Denies chest pain and Denies dyspnea Respiratory: Denies cough and Denies dyspnea Gastrointestinal: Reports constipation, Reports nausea and Denies vomiting Endocrine: Denies fatigue [facility] Past Medical History Attestation statement: The following information was validated with the patient. Medical History Chronic hypoxemic respiratory failure Obstructive sleep apnea Hypotonic neurogenic bladder Chronic heart failure with preserved ejection fraction (HFpEF) Diarrhea Bacteriuria Chronic UTI UTI (urinary tract infection) Non-rheumatic aortic stenosis Aortic stenosis Paroxysmal atrial fibrillation H/O: CVA (cerebrovascular accident) Glaucoma Severe sepsis Obesity Osteoarthritis COPD (chronic obstructive pulmonary disease) Chronic UTI Chronic indwelling Molina catheter Diabetes Hypertension Congestive heart failure Surgical History H/O enucleation of left eyeball H/O adenoidectomy History of tonsillectomy Family History Family History Father No problems noted. Mother No problems noted. Social History Social History Household Members: None Housing: Apartment Do you presently have visiting nurse or other home services: Yes (care givers) Unable to assess alcohol history related to: Unknown Alcohol intake: former Patient Tobacco Use Status: Never used Tobacco Smoked in Last 30 Days: No Second Hand Smoke Exposure: No Use of substances other than those prescribed or required for medical reasons: No Advance Directives: Yes Advance Directives on File: Yes Advance Directives Date on File: 07/09/20 service: No Current occupational status: disabled Physical Exam ED Vital Signs: Vital Signs - 24 hr 07/05/24 15:18 07/05/24 16:45 07/05/24 19:00 Temperature 98.2 F 97.7 F 97.5 F Pulse Rate 75 69 66 Respiratory Rate 18 18 18 Blood Pressure 127/46 L 142/64 H 114/72 Pulse Oximetry 99 99 100 Oxygen Delivery Method Room Air Room Air Nasal Cannula Oxygen Flow Rate 4 07/05/24 23:08 Temperature 97.7 F Pulse Rate 61 Respiratory Rate 20 Blood Pressure 123/62 Pulse Oximetry 96 Oxygen Delivery Method Nasal Cannula Oxygen Flow Rate BMI result Body Mass Index 45.6 Const Other: Awake, ill in appearance, appears older than stated age Orientation/consciousness: patient oriented x3 HENMT Other: Dry oral mucosa Resp Other: Nonlabored respiration Cardio Other: Normal peripheral perfusion GI Other: Abdomen is obese, with generalized tenderness to palpation, soft not peritonitic, however overall I feel exam was secured secondary to habitus Skin Other: Warm dry no rash Neuro Other: Loss of vision right eye General: patient oriented x3, no focal motor deficits and CN's II-XI intact bilaterally Psych Other: Calm cooperative Course Reevaluation(s) Reevaluation #1: I reassessed the patient given the question of appendicitis on CT scan. With the help I lifted her pannus, with deep palpation of the lower abdomen, primarily the right lower quadrant, I am not eliciting any discomfort or guarding. I will still reach out to the surgical service given the findings. Time: 22:49 Consultations Consultation #1: sarita Time: 22:50 Medical Decision Making Medical Decision Making MDM Narrative: 73 y/o F with hx of heart failure with EF 60-65% ECHO 08/2022, insulin-dependent diabetes mellitus, essential hypertension, prior CVA, chronic hypoxemic respiratory failure due to COPD with baseline 2 L supplemental oxygen, paroxysmal atrial fibrillation on Eliquis , morbid obesity, chronic indwelling Molina presents from home with the abdominal pain x5 days. Patient states she was discharged home within the past week from rehab. She has been having worsening diffuse abdominal discomfort with distention. Patient's last bowel movement was yesterday, however it was minimal in the stool was firm. Associated nausea with dry heaving, no active vomiting. Minimal flatus is being passed below. Patient states she has been having excessive eructation. She states she is currently being treated for a urinary tract infection. Denies fevers. Problem: Morbid obesity diabetes, AFib, chronic indwelling Molina, overall poor protoplasm History: Per patient I have considered the following differential diagnoses: Bowel obstruction, constipation, obstipation, fecal impaction Plan: I we will be obtaining a CT scan with oral contrast, we will be screening labs including a repeat urinalysis, giving IV fluid Reglan and morphine for her discomfort. We will defer rectal exam for now, if there was evidence of impaction per CT we will do so. I have independently reviewed the following tests: Labs: No leukocytosis, not anemic, no electrolyte abnormality, urine infected, we will start Zosyn, adding blood cultures, to note this is not sepsis, we do not need a lactic acid CT abdomen and pelvis:IMPRESSION: 1. Mild dilatation of the appendix is concerning for appendicitis. 2. Severe stool burden. No small bowel obstruction. 3. Fibroids of the uterus. 4. Bibasilar atelectasis and/or pneumonitis of the partially imaged lung bases. This document has been electronically signed by: Allen Cordero MD on 07/05/2024 22:04:53 Lab Data 07/05/24 16:25 07/05/24 16:25 Labs: Lab Results 07/05/24 Range/Units 16:25 WBC 8.5 (4.8-10.8) X10*3/uL RBC 5.17 (4.20-5.50) X10*6/uL Hgb 13.4 (12.0-16.0) g/dl Hct 42.7 (37.0-47.0) % MCV 82.6 (80.0-98.0) fL MCH 25.9 L (27.0-33.0) pg MCHC 31.4 (31.0-35.0) g/dl RDW 16.8 H (11.0-16.0) % Plt Count 214 (160-400) X10*3/uL MPV 11.0 (9.4-12.3) fL Immature Gran % (Auto) 0.5 H (0.0-0.4) % Neut % (Auto) 72.3 (45-73) % Lymph % (Auto) 15.0 L (20-40) % [place] % (Auto) 9.0 (2-11) % Eos % (Auto) 2.8 (0-4) % Baso % (Auto) 0.4 (0-2) % Lymph # (Auto) 1.3 (1.2-4.9) X10*3/uL [place] # (Auto) 0.8 (0.1-1.2) X10*3/uL Eos # (Auto) 0.2 (0.0-0.4) X10*3/uL Baso # (Auto) 0.0 (0.0-0.2) X10*3/uL Abs Immat Gran (auto) 0.04 H (0.00-0.03) X10*3/uL Absolute Neuts (auto) 6.2 (2.0-8.3) x10*3/uL Absolute Nucleated RBC 0.000 (0.0-0.012) X10*3/uL Nucleated RBC % (auto) 0.0 (0.0-0.2) /100WBC Sodium 135 (135-145) mmol/L Potassium 3.6 D (3.3-5.1) mmol/L Chloride 89 L (96-108) mmol/L Carbon Dioxide 37 H (22-29) mmol/L Anion Gap 13 (12-20) BUN 14 (9-16) mg/dL Creatinine 0.62 (0.5-1.4) mg/dL Estim Creat Clear Calc 112.4 Estimated GFR > 60 Random Glucose 223 H (60-115) mg/dL Calcium 9.0 (8.4-10.2) mg/dL Magnesium 1.8 (1.6-2.6) mg/dL Total Bilirubin 0.4 (0.0-1.0) mg/dL AST 19 (5-31) U/L ALT 19 (0-31) U/L Alkaline Phosphatase 104 (39-117) U/L Total Protein 6.6 (6.5-8.0) g/dL Albumin 3.5 (3.5-5.0) g/dL Lipase 10 (8-78) U/L Urine Color Yellow Urine Appearance Clear Urine pH 8.0 (5.0-9.0) Ur Specific [place] <= 1.005 (1.005-1.025) Urine Protein Negative (Neg-Trace) mg/dL Urine Glucose (UA) Negative (Negative) mg/dL Urine Ketones Negative (Negative) mg/dL Urine Blood Negative (Negative) Urine Nitrite Positive H (Negative) Ur Leukocyte Esterase Moderate (2+) H (Negative) Urine RBC 0-2 (0-2) /HPF Urine WBC 6-10 H (0-5) /HPF Ur Squamous Epith Cells 6-10 (0-2) /HPF Urine Bacteria 4+ (None Seen) Hyaline Casts 0-2 (0-2) /LPF Medications Administered Discontinued Medications Generic Name Dose Route Start Last Admin Trade Name Freq PRN Reason Stop Dose Admin Famotidine 20 mg 07/05/24 18:12 07/05/24 22:28 Famotidine/Pf 20 Mg/2 Ml Vial IVPUSH 07/05/24 18:13 20 mg ONCE ONE Administration Sodium Chloride 500 mls @ 500 mls/hr 07/05/24 16:26 07/05/24 16:45 Ns IV 07/05/24 17:25 500 mls/hr .Q1H ONE Administration Piperacillin Sod/Tazobactam 50 mls @ 100 mls/hr 07/05/24 17:58 07/05/24 22:28 Sod 3.375 gm/ Sodium Chloride IV 07/05/24 18:27 100 mls/hr ONCE ONE Administration Iohexol 100 ml 07/05/24 21:15 07/05/24 21:16 Iohexol 350 Mg/Ml 100 Ml Infus..Btl IV 07/05/24 21:16 100 ml ONCE ONE Administration Metoclopramide HCl 10 mg 07/05/24 16:24 07/05/24 16:44 Metoclopramide Hcl 10 Mg/2 Ml Vial IVPUSH 07/05/24 16:25 10 mg ONCE ONE Administration Morphine Sulfate 4 mg 07/05/24 16:24 07/05/24 16:43 Morphine Sulfate 4 Mg/Ml Cartridge IVPUSH 07/05/24 16:25 4 mg ONCE ONE Administration Protocol Discharge Plan Discharge Clinical Impression: Urinary tract infection associated with indwelling urethral catheter, Constipation Patient Disposition: Admitted As Inpatient Prescriptions: No Action albuterol sulfate [Proventil HFA] 90 mcg/actuation HFA aerosol inhaler 2 puff inhalation Q4-6H PRN (Reason: Wheezing) Eliquis 5 mg tablet 5 mg PO BID albuterol sulfate 2.5 mg /3 mL (0.083 %) solution for nebulization 2.5 mg inhalation Q4-6H PRN (Reason: shortness of breath or wheezing) Qty: 75 0RF insulin glargine [Lantus Solostar U-100 Insulin] 100 unit/mL (3 mL) insulin pen 70 unit subcut DAILY aspirin 81 mg Tablet,Delayed Release (Dr/Ec) 81 mg PO DAILY furosemide 40 mg tablet 80 mg PO DAILY insulin lispro [Humalog KwikPen Insulin] 100 unit/mL insulin pen 1 sliding scale dose subcut QIDACHS Protocol: Insulin Correction Scale Less than or equal to 110 ---- Give (units): 0 111 to 150 Give (units): 0 151 to 200 Give (units): 2 201 to 250 Give (units): 4 251 to 300 Give (units): 6 301 to 350 Give (units): 8 Greater than 350 Give (units): 10 Call MD if Blood Glucose > : 350 Trulicity 0.75 mg/0.5 mL pen injector 0.75 mg subcut TU Patient Comments: per pt's daughter Stefany nitrofurantoin monohyd/m-cryst [Macrobid] 100 mg capsule 100 mg PO Q12H 7 Days Qty: 14 0RF Rx Instructions: must administer with a meal/food cefuroxime axetil 250 mg tablet 250 mg PO BID Qty: 14 0RF acetaminophen 325 mg tablet 650 mg PO Q6H PRN (Reason: Pain) oxybutynin chloride 5 mg tablet extended release 24hr 5 mg PO BEDTIME gabapentin 300 mg capsule 300 mg PO BID montelukast 10 mg tablet 10 mg PO BEDTIME ergocalciferol (vitamin D2) 1,250 mcg (50,000 unit) capsule 1,250 mcg PO TH fluticasone furoate-vilanterol [Breo Ellipta] 200-25 mcg/dose blister with device 1 ea INHALATION DAILY albuterol sulfate 90 mcg/actuation HFA aerosol inhaler 2 puff inhalation Q6H PRN (Reason: shortness of breath or wheezing) Qty: 8.5 0RF prednisone 20 mg tablet 20 mg PO BID Qty: 10 0RF Patient Comments: patient's daughter states patient does not take doxycycline hyclate 100 mg tablet 100 mg PO BID Qty: 14 0RF Patient Comments: patient's daughter states patient does not take guaifenesin 200 mg/5 mL liquid 200 mg PO Q4H PRN (Reason: cough) Qty: 118 0RF Patient Comments: patient's daughter states patient does not take metoprolol succinate 50 mg tablet extended release 24 hr 50 mg PO DAILY losartan 25 mg tablet 25 mg PO DAILY docusate sodium [Colace] 100 mg capsule 100 mg PO BID Qty: 20 0RF sennosides [senna] 8.6 mg tablet 8.6 mg PO BEDTIME PRN (Reason: constipation) Qty: 30 0RF lisinopril 5 mg tablet 5 mg PO DAILY Print Language: Citizen [place]
[2024-07-05 16:32] LABS: MANUAL DIFF FLAG NO
[2024-07-05 16:35] LABS: Appearance Urine Clear; Color Urine Yellow; Glucose Urine UA Negative (Negative); Leukocyte Esterase Urine Moderate (2+) (Negative); Nitrite Urine Positive (Negative); Specific Gravity - Urine <= 1.005 (1.005-1.025); UMIC TRIGGER UACC YES; Urine Blood Negative (Negative); Urine Ketones Negative (Negative); Urine Protein Negative (Neg-Trace)
[2024-07-05 16:37] LABS: Bacteria Urine 4+ (None Seen); Basophils Percent Auto 0.4 % (0-2); Eosinophils Absolute Auto 0.2 X10*3/uL (0.0-0.4); Eosinophils Percent Auto 2.8 % (0-4); Hematocrit 42.7 % (37.0-47.0); Hemoglobin 13.4 g/dl (12.0-16.0); Hyaline Casts Urine 0-2 /LPF (0-2); Imm Gran Abs Auto 0.04 X10*3/uL (0.00-0.03); Imm Gran Pct Auto 0.5 % (0.0-0.4); Lymphocytes Absolute Auto 1.3 X10*3/uL (1.2-4.9); Mean Corpuscular HGB Conc 31.4 g/dl (31.0-35.0); Mean Corpuscular Hemoglobin 25.9 pg (27.0-33.0); Mean Corpuscular Volume 82.6 fL (80.0-98.0); Monocytes Absolute Auto 0.8 X10*3/uL (0.1-1.2); Neutrophils Absolute Auto 6.2 x10*3/uL (2.0-8.3); Neutrophils Percent Auto 72.3 % (45-73); Platelet Count 214 X10*3/uL (160-400); RBC Urine 0-2 /HPF (0-2); Red Blood Count 5.17 X10*6/uL (4.20-5.50); Red Cell Distribution Width 16.8 % (11.0-16.0); UACC Culture Trigger YES; White Blood Count 8.5 X10*3/uL (4.8-10.8)
[2024-07-05] MEDS: Morphine Sulfate 4 MG/ML CARTRIDGE IVPUSH (16:43)
[2024-07-05] MEDS: Metoclopramide HCl 10 MG/2 ML VIAL IVPUSH (16:44)
[2024-07-05 16:45] VITALS: BP 142/64; PULSE 69; RESP 18; TEMP 36.5; O2SAT 99
[2024-07-05] MEDS: 0.9 % Sodium Chloride 500 ML IV (16:45)
[2024-07-05 16:48] LABS: Alanine Aminotransferase 19 U/L (0-31); Albumin Level 3.5 g/dL (3.5-5.0); Alkaline Phosphatase 104 U/L (39-117); Anion Gap 13 (12-20); Aspartate Amino Transferase 19 U/L (5-31); Bilirubin Total 0.4 mg/dL (0.0-1.0); Blood Urea Nitrogen 14 mg/dL (9-16); Carbon Dioxide 37 mmol/L (22-29); Chloride 89 mmol/L (96-108); Creatinine Clr Calc Pharmacy 112.4; Estimated Glomerular Filt Rate > 60; Glucose Random 223 mg/dL (60-115); Lipase 10 U/L (8-78); Magnesium 1.8 mg/dL (1.6-2.6); Potassium 3.6 mmol/L (3.3-5.1); Sodium 135 mmol/L (135-145); Total Protein 6.6 g/dL (6.5-8.0)
[2024-07-05 19:00] VITALS: BP 114/72; PULSE 66; RESP 18; TEMP 36.4; O2SAT 100
[2024-07-05] MEDS: iohexoL 350 MG/ML 100 ML INFUS..BTL IV (21:16)
[2024-07-05] MEDS: Piperacillin Sodium/Tazobactam 3.375 GM in 0.9 % Sodium Chloride 50 ML IV (22:28)
[2024-07-05] MEDS: Famotidine/PF 20 MG/2 ML VIAL IVPUSH (22:28)
[2024-07-05 23:08] VITALS: BP 123/62; PULSE 61; RESP 20; TEMP 36.5; O2SAT 96
--- NOTE | 2024-07-05 23:56 | PM.IMHP ---
History of Present Illness Date of Service: 07/05/24 Chief Complaint: abd pain 73F PMH chronic hypoxic and hypercapnic respiratory failure due to COPD, chronic diastolic CHF, moderate aortic stenosis, wheelchair-bound, morbid obesity, ERICKA, diabetes, hypertension, paroxysmal atrial fibrillation, chronic urinary retention with chronic Molina, history of CVA, presented with abdominal pain for 5 days. Patient was recently discharged from short-term rehab. Has been having constipation, had bowel movement just prior to coming in but was small and hard. Pain is diffuse, achy, denies nausea vomiting fever or chills. In ED CT abdomen showed mild dilatation of the appendix concerning for appendicitis, severe stool burden no bowel obstruction, fibroids of uterus, bibasilar atelectasis and/or pneumonitis. Abdominal exam is fairly benign. Patient also noted to have pyuria and bacteriuria on UA. [facility] Medical History Chronic hypoxemic respiratory failure Obstructive sleep apnea Hypotonic neurogenic bladder Chronic heart failure with preserved ejection fraction (HFpEF) Diarrhea Bacteriuria Chronic UTI UTI (urinary tract infection) Non-rheumatic aortic stenosis Aortic stenosis Paroxysmal atrial fibrillation H/O: CVA (cerebrovascular accident) Glaucoma Severe sepsis Obesity Osteoarthritis COPD (chronic obstructive pulmonary disease) Chronic UTI Chronic indwelling Molina catheter Diabetes Hypertension Congestive heart failure Family History Father No problems noted. Mother No problems noted. Surgical History H/O enucleation of left eyeball H/O adenoidectomy History of tonsillectomy Social History Household Members: None Housing: Apartment Do you presently have visiting nurse or other home services: Yes (care givers) Unable to assess alcohol history related to: Unknown Alcohol intake: former Patient Tobacco Use Status: Never used Tobacco Smoked in Last 30 Days: No Second Hand Smoke Exposure: No Use of substances other than those prescribed or required for medical reasons: No Advance Directives: Yes Advance Directives on File: Yes Advance Directives Date on File: 07/09/20 service: No Current occupational status: disabled Meds Allergies Allergy/AdvReac Type Severity Reaction Status Date / Time silver sulfadiazine Allergy Unknown UNK Verified 07/05/24 15:19 [From RUFINOE] Active Medications: Current Medications Apixaban (Apixaban 5 Mg Tablet) 5 mg PO BID MARJAN Atorvastatin Calcium (Atorvastatin Calcium 20 Mg Tablet) 20 mg PO BEDTIME MARJAN Bisacodyl (Bisacodyl 10 Mg Supp.Rect) 10 mg VT BEDTIME PRN PRN Reason: Constipation Furosemide (Furosemide 40 Mg Tablet) 80 mg PO DAILY MARJAN; Protocol Gabapentin (Gabapentin 300 Mg Capsule) 300 mg PO TID MARJAN Glucose (Glucose Gel 15 Gm Gel..Gram.) 15 gm PO Q15M PRN; Protocol PRN Reason: per Hypoglycemia Standing Ord. Dextrose (D10) 250 mls @ 750 mls/hr IV Q15M PRN; Protocol PRN Reason: per Hypoglycemia Standing Ord. Insulin Human Lispro (Insulin Lispro 100 Unit/Ml 3 Ml Vial) 0 unit SUBCUT QIDACHS MARJAN; Protocol Lisinopril (Lisinopril 10 Mg Tablet) 10 mg PO DAILY MARJAN; Protocol Meropenem (Meropenem 1 Gm Vial) 1 gm IVPUSH Q8H MARJAN Metoprolol Succinate (Metoprolol Succinate Er 50 Mg Tab.Er.24h) 50 mg PO DAILY MARJAN; Protocol Montelukast Sodium (Montelukast Sodium 10 Mg Tablet) 10 mg PO BEDTIME MARJAN Polyethylene Glycol (Polyethylene Glycol 3350 17 Gm Powd.Pack) 17 gm PO DAILY [facility] Home Medications ?Medication ?Instructions ?Recorded ?Confirmed ?Last Taken ?Type albuterol sulfate 90 mcg/actuation 2 puff inhalation Q4-6H PRN 01/23/21 10/26/23 01/26/23 History aerosol inhaler (Proventil HFA) Wheezing apixaban 5 mg tablet (Eliquis) 5 mg PO BID 01/23/21 01/08/24 01/26/23 History aspirin 81 mg tablet,delayed 81 mg PO DAILY 10/24/21 01/08/24 01/26/23 History release insulin glargine 100 unit/mL (3 70 unit subcut DAILY 10/24/21 01/08/24 01/26/23 History mL) subcutaneous pen (Lantus Solostar U-100 Insulin) furosemide 40 mg tablet 80 mg PO DAILY 03/09/22 01/08/24 01/26/23 History dulaglutide 0.75 mg/0.5 mL 0.75 mg subcut TU 10/23/22 10/26/23 01/04/24 History subcutaneous pen injector (Trulicity) insulin lispro 100 unit/mL 1 sliding scale dose subcut QIDACHS 10/23/22 01/08/24 Unknown History subcutaneous pen (Humalog KwikPen (U-100) Insulin) acetaminophen 325 mg tablet 650 mg PO Q6H PRN Pain 01/27/23 01/08/24 01/26/23 History ergocalciferol (vitamin D2) 1,250 1,250 mcg PO TH 01/27/23 01/08/24 01/26/23 History mcg (50,000 unit) capsule fluticasone furoate 200 1 ea inhalation DAILY 01/27/23 10/26/23 01/26/23 History mcg-vilanterol 25 mcg/dose inhalation powder (Breo Ellipta) gabapentin 300 mg capsule 300 mg PO BID 01/27/23 01/08/24 01/26/23 History montelukast 10 mg tablet 10 mg PO BEDTIME 01/27/23 01/08/24 01/26/23 History oxybutynin chloride 5 mg 5 mg PO BEDTIME 01/27/23 01/08/24 01/26/23 History tablet,extended release 24 hr losartan 25 mg tablet 25 mg PO DAILY 10/26/23 01/08/24 Unknown History metoprolol succinate 50 mg 50 mg PO DAILY 10/26/23 01/08/24 Unknown History tablet,extended release 24 hr lisinopril 5 mg tablet 5 mg PO DAILY 12/01/23 01/08/24 Unknown History Physical Exam Vital Signs and Narrative: Vital Signs: Last Vital Signs Temp 97.7 F 07/05/24 23:08 Pulse 61 07/05/24 23:08 Resp 20 07/05/24 23:08 BP 123/62 07/05/24 23:08 Pulse Ox 96 07/05/24 23:08 O2 Del Method Nasal Cannula 07/05/24 23:08 O2 Flow Rate 4 07/05/24 19:00 BMI result Body Mass Index 45.6 General: AO X 3, no acute distress Resp: CTA bilateral, no accessory muscles used CVS: S1,S2,RRR GI: soft, non tender, non distended Psych: appropriate affect, appropriate insight Results Labs 12/27/24 16:25 07/05/24 16:25 Labs: Laboratory Results - last 24 hr 07/05/24 16:25 MCV 82.6 MCH 25.9 L MCHC 31.4 RDW 16.8 H Plt Count 214 MPV 11.0 Immature Gran % (Auto) 0.5 H Neut % (Auto) 72.3 Lymph % (Auto) 15.0 L [place] % (Auto) 9.0 Eos % (Auto) 2.8 Baso % (Auto) 0.4 Lymph # (Auto) 1.3 [place] # (Auto) 0.8 Eos # (Auto) 0.2 Baso # (Auto) 0.0 Abs Immat Gran (auto) 0.04 H Absolute Neuts (auto) 6.2 Absolute Nucleated RBC 0.000 Nucleated RBC % (auto) 0.0 Anion Gap 13 Estim Creat Clear Calc 112.4 Estimated GFR > 60 Random Glucose 223 H Calcium 9.0 Magnesium 1.8 Total Bilirubin 0.4 AST 19 ALT 19 Alkaline Phosphatase 104 Total Protein 6.6 Albumin 3.5 Lipase 10 Urine Color Yellow Urine Appearance Clear Urine pH 8.0 Ur Specific [place] <= 1.005 Urine Protein Negative Urine Glucose (UA) Negative Urine Ketones Negative Urine Blood Negative Urine Nitrite Positive H Ur Leukocyte Esterase Moderate (2+) H Urine RBC 0-2 Urine WBC 6-10 H Ur Squamous Epith Cells 6-10 Urine Bacteria 4+ Hyaline Casts 0-2 Assessment and Plan (1) UTI (urinary tract infection) due to urinary indwelling catheter: Status: Acute Plan 73F PMH chronic hypoxic and hypercapnic respiratory failure due to COPD, chronic diastolic CHF, moderate aortic stenosis, wheelchair-bound, morbid obesity, ERICKA, diabetes, hypertension, paroxysmal atrial fibrillation, chronic urinary retention with chronic Molina, history of CVA, presented with abdominal pain Abdominal pain Suspect due to constipation, can not rule out appendicitis Observe with serial abdominal exams, General surgery eval, empiric IV meropenem Continue MiraLax, enemas and suppositories Pyuria and bacteriuria of unclear significance in patient with neurogenic bladder with chronic Molina and history of ESBL E coli Empiric IV meropenem, follow up cultures Chronic hypoxic and hypercapnic respiratory failure due to COPD Continue 2 L supplemental O2 Chronic diastolic CHF and moderate aortic stenosis Continue maintenance Lasix Morbid obesity Weight loss recommended ERICKA CPAP at night Diabetes with hyperglycemia Insulin sliding scale Hold metformin Hypertension Continue lisinopril, metoprolol Paroxysmal atrial fibrillation Toprol, Eliquis History of CVA Continue Eliquis and statin DVT prophylaxis on Eliquis Full Code Quality Stroke Does the patient have a stroke diagnosis?: No VTE Prior VTE?: No VTE Risk Level:: Medical - moderate - high VTE Device Contraindication: Treatment Not Indicated VTE Drug Contraindication: N/A - Med Ordered
[2024-07-06] MEDS: Apixaban 5 MG TABLET PO ×3 (01:13→22:00)
[2024-07-06] MEDS: Milk of Magnesia 30 ML ORAL.SUSP PO ×2 (01:13→10:30)
[2024-07-06] MEDS: 0.9 % Sodium Chloride Flush 3 ML SYRINGE IVFLUSH ×3 (01:15→16:57)
[2024-07-06] MEDS: Meropenem 1 GM VIAL IVPUSH ×3 (01:17→16:57)
--- NOTE | 2024-07-06 02:07 | PC.NURSE ---
1000mls drained from rai
[2024-07-06] MEDS: Sodium Phosphate,Mono-Dibasic 133 ML ENEMA PR (02:34)
[2024-07-06] MEDS: Mineral OiL enema 133 ML ENEMA PR (02:34)
[2024-07-06 03:15] VITALS: BP 130/60; PULSE 64; RESP 20; TEMP 36.8; O2SAT 98
--- NOTE | 2024-07-06 05:07 | PC.NURSE ---
late entry. Medications continued to be delayed from day shift d/t lab draw issues. Unable to given abx until cultures received. delay in admin of 2300 meds d/t providing care to our critical pts.
[2024-07-06 05:24] LABS: Hematocrit 42.2 % (37.0-47.0); Hemoglobin 13.3 g/dl (12.0-16.0); Mean Corpuscular HGB Conc 31.5 g/dl (31.0-35.0); Mean Corpuscular Volume 82.6 fL (80.0-98.0); Mean Platelet Volume 10.9 fL (9.4-12.3); Platelet Count 193 X10*3/uL (160-400); Red Blood Count 5.11 X10*6/uL (4.20-5.50); Red Cell Distribution Width 17.1 % (11.0-16.0); White Blood Count 7.1 X10*3/uL (4.8-10.8)
[2024-07-06 05:45] LABS: Anion Gap 13 (12-20); Blood Urea Nitrogen 11 mg/dL (9-16); Calcium 9.1 mg/dL (8.4-10.2); Carbon Dioxide 37 mmol/L (22-29); Chloride 94 mmol/L (96-108); Creatinine Clr Calc Pharmacy 118.1; Estimated Glomerular Filt Rate > 60; Glucose Random 62 mg/dL (60-115); Potassium 3.6 mmol/L (3.3-5.1); Sodium 140 mmol/L (135-145)
[2024-07-06 06:10] VITALS: BP 133/58; PULSE 65; RESP 14; TEMP 36.4; O2SAT 100
--- NOTE | 2024-07-06 06:43 | PC.NURSE ---
Patient transferred from main ED this am. Resting comfortably, able to make needs known. VSS, call bain within reach.
[2024-07-06 07:53] LABS: Glucose, Whole Blood 62 mg/dL (60-115)
--- NOTE | 2024-07-06 08:00 | P.CONGS_ITS ---
History of Present Illness Consult details Consult date: 07/06/24 Narrative: Surgical consultation because of an incidental finding of CT scan of the question of early appendicitis. Patient is a 73-year-old female with a plethora of significant comorbidities and intercurrent medical problems. She has had 5 days of abdominal discomfort which on exam today she says have improved. Patient last bowel movement was yesterday. She denies any diarrhea or loose stool. She has history of constipation in the past. Patient was not recall any sick contacts or unusual diet. Chart was reviewed and patient evaluated PMFSH Past Medical History Medical History Chronic hypoxemic respiratory failure Obstructive sleep apnea Hypotonic neurogenic bladder Chronic heart failure with preserved ejection fraction (HFpEF) Diarrhea Bacteriuria Chronic UTI UTI (urinary tract infection) Non-rheumatic aortic stenosis Aortic stenosis Paroxysmal atrial fibrillation H/O: CVA (cerebrovascular accident) Glaucoma Severe sepsis Obesity Osteoarthritis COPD (chronic obstructive pulmonary disease) Chronic UTI Chronic indwelling Molina catheter Diabetes Hypertension Congestive heart failure Family History Family History Father No problems noted. Mother No problems noted. Surgical History Surgical History H/O enucleation of left eyeball H/O adenoidectomy History of tonsillectomy Social History Social History Household Members: None Housing: Apartment Do you presently have visiting nurse or other home services: Yes (care givers) Unable to assess alcohol history related to: Unknown Alcohol intake: former Patient Tobacco Use Status: Never used Tobacco Smoked in Last 30 Days: No Second Hand Smoke Exposure: No Use of substances other than those prescribed or required for medical reasons: No Advance Directives: Yes Advance Directives on File: Yes Advance Directives Date on File: 07/09/20 service: No Current occupational status: disabled Meds Allergies Allergy/AdvReac Type Severity Reaction Status Date / Time silver sulfadiazine Allergy Unknown UNK Verified 07/05/24 15:19 [From SILVADENE] Active Medications: Current Medications Acetaminophen (Acetaminophen 325 Mg Tablet) 650 mg PO Q6H PRN PRN Reason: Pain, Mild 1-3,fever,headache Apixaban (Apixaban 5 Mg Tablet) 5 mg PO BID [facility] Last Admin: 07/06/24 01:13 Dose: 5 mg Atorvastatin Calcium (Atorvastatin Calcium 20 Mg Tablet) 20 mg PO BEDTIME [facility] Bisacodyl (Bisacodyl 10 Mg Supp.Rect) 10 mg CA BEDTIME PRN PRN Reason: Constipation Calcium Carbonate (Calcium Carbonate 750 Mg Tab.Chew) 750 mg PO Q4H PRN PRN Reason: Heartburn Furosemide (Furosemide 40 Mg Tablet) 80 mg PO DAILY [facility]; Protocol Gabapentin (Gabapentin 300 Mg Capsule) 300 mg PO TID [facility] Glucose (Glucose Gel 15 Gm Gel..Gram.) 15 gm PO Q15M PRN; Protocol PRN Reason: per Hypoglycemia Standing Ord. Dextrose (D10) 250 mls @ 750 mls/hr IV Q15M PRN; Protocol PRN Reason: per Hypoglycemia Standing Ord. Insulin Human Lispro (Insulin Lispro 100 Unit/Ml 3 Ml Vial) 0 unit SUBCUT QIDACHS [facility]; Protocol Lisinopril (Lisinopril 10 Mg Tablet) 10 mg PO DAILY [facility]; Protocol Magnesium Hydroxide (Milk Of Magnesia 30 Ml Oral.Susp) 30 ml PO DAILY PRN PRN Reason: Constipation Melatonin (Melatonin 3 Mg Tablet) 6 mg PO BEDTIME PRN PRN Reason: Insomnia Meropenem (Meropenem 1 Gm Vial) 1 gm IVPUSH Q8H [facility] Last Admin: 07/06/24 01:17 Dose: 1 gm Metoprolol Succinate (Metoprolol Succinate Er 50 Mg Tab.Er.24h) 50 mg PO DAILY [facility]; Protocol Montelukast Sodium (Montelukast Sodium 10 Mg Tablet) 10 mg PO BEDTIME [facility] Polyethylene Glycol (Polyethylene Glycol 3350 17 Gm Powd.Pack) 17 gm PO DAILY [facility] Sodium Chloride (0.9 % Sodium Chloride Flush 3 Ml Syringe) 3 ml IVFLUSH QSHIFT [facility] Last Admin: 07/06/24 01:15 Dose: 3 ml Home Medications ?Medication ?Instructions ?Recorded ?Confirmed ?Last Taken ?Type apixaban 5 mg tablet (Eliquis) 5 mg PO BID 01/23/21 01/08/24 01/26/23 History aspirin 81 mg tablet,delayed 81 mg PO DAILY 10/24/21 01/08/24 01/26/23 History release furosemide 40 mg tablet 80 mg PO DAILY 08/01/08/24 01/26/23 History dulaglutide 0.75 mg/0.5 mL 0.75 mg subcut TU 10/23/22 10/26/23 01/04/24 History subcutaneous pen injector (Trulicity) insulin lispro 100 unit/mL 1 sliding scale dose subcut QIDACHS 10/23/22 01/08/24 Unknown History subcutaneous pen (Humalog KwikPen (U-100) Insulin) acetaminophen 325 mg tablet 650 mg PO Q6H PRN Pain 01/27/23 01/08/24 01/26/23 History ergocalciferol (vitamin D2) 1,250 1,250 mcg PO TH 01/27/23 01/08/24 01/26/23 History mcg (50,000 unit) capsule fluticasone furoate 200 1 ea inhalation DAILY 01/27/23 10/26/23 01/26/23 History mcg-vilanterol 25 mcg/dose inhalation powder (Breo Ellipta) gabapentin 300 mg capsule 300 mg PO TID 01/27/23 01/08/24 01/26/23 History montelukast 10 mg tablet 10 mg PO BEDTIME 01/27/23 01/08/24 01/26/23 History oxybutynin chloride 5 mg 5 mg PO BEDTIME 01/27/23 01/08/24 01/26/23 History tablet,extended release 24 hr metoprolol succinate 50 mg 50 mg PO DAILY 10/26/23 01/08/24 Unknown History tablet,extended release 24 hr insulin glargine 100 unit/mL (3 70 unit subcut DAILY 07/06/24 Unknown History mL) subcutaneous pen (Basaglar KwikPen U-100 Insulin) lisinopril 10 mg tablet 10 mg PO DAILY 07/06/24 Unknown History losartan 50 mg tablet 50 mg PO DAILY 07/06/24 Unknown History metformin 850 mg tablet 850 mg PO DAILY 07/06/24 Unknown History simvastatin 40 mg tablet 40 mg PO BEDTIME 07/06/24 Unknown History Physical Exam 2 Vital Signs: Vital Signs: Last Vital Signs Temp 97.6 F 07/06/24 06:10 Pulse 65 07/06/24 06:10 Resp 14 07/06/24 06:10 BP 133/58 L 07/06/24 06:10 Pulse Ox 100 07/06/24 06:10 O2 Del Method Nasal Cannula 12/28/24 06:10 O2 Flow Rate 4 07/06/24 06:10 BMI result Body Mass Index 45.6 Const: Other: Extremely morbidly obese female. Awake, alert, and conversant GI: Other: Massively corpulent abdomen. Patient has mild upper abdominal tenderness but no evidence of any guarding, rebound, or rigidity especially in the right lower quadrant. Results Labs 07/06/24 05:00 07/06/24 05:00 Labs: Abnormal lab results 07/05/24 07/06/24 Range/Units 16:25 05:00 MCH 25.9 L 26.0 L (27.0-33.0) pg RDW 16.8 H 17.1 H (11.0-16.0) % Immature Gran % (Auto) 0.5 H (0.0-0.4) % Lymph % (Auto) 15.0 L (20-40) % Abs Immat Gran (auto) 0.04 H (0.00-0.03) X10*3/uL Chloride 89 L 94 L (96-108) mmol/L Carbon Dioxide 37 H 37 H (22-29) mmol/L Random Glucose 223 H (60-115) mg/dL Urine Nitrite Positive H (Negative) Ur Leukocyte Esterase Moderate (2+) H (Negative) Urine WBC 6-10 H (0-5) /HPF Short CBC 07/05/24 07/06/24 Range/Units 16:25 05:00 WBC 8.5 7.1 (4.8-10.8) X10*3/uL Hgb 13.4 13.3 (12.0-16.0) g/dl Hct 42.7 42.2 (37.0-47.0) % Plt Count 214 193 (160-400) X10*3/uL BMP 07/05/24 07/06/24 16:25 05:00 Sodium 135 140 Potassium 3.6 D 3.6 Chloride 89 L 94 L Carbon Dioxide 37 H 37 H BUN 14 11 Creatinine 0.62 0.59 Calcium 9.0 9.1 Liver Function 07/05/24 Range/Units 16:25 Total Bilirubin 0.4 (0.0-1.0) mg/dL AST 19 (5-31) U/L ALT 19 (0-31) U/L Alkaline Phosphatase 104 (39-117) U/L Albumin 3.5 (3.5-5.0) g/dL Urine 07/05/24 Range/Units 16:25 Urine Color Yellow Urine Appearance Clear Urine pH 8.0 (5.0-9.0) Ur Specific [place] <= 1.005 (1.005-1.025) Urine Protein Negative (Neg-Trace) mg/dL Urine Glucose (UA) Negative (Negative) mg/dL All other labs normal. Assessment and Plan (1) Constipation: Status: Acute (2) Urinary tract infection associated with indwelling urethral catheter: Status: Acute Plan At present, no clinical evidence of acute appendicitis. Patient was being admitted and being treated for UTI among her other medical issues. Would recommend purgatives and laxatives regarding significant stool burden seen on CT scan. If abdominal symptoms progress or worsen, and are consistent with the appendicitis, then surgical intervention could be considered. At present, no acute surgical issues demonstrated. Procedures Date of Service Date of Service: 07/06/24
--- NOTE | 2024-07-06 08:23 | MHC.EDTECH ---
pt repositioned to right lateral d/t complaints of bottom pain
[2024-07-06] MEDS: Gabapentin 300 MG CAPSULE PO ×3 (08:42→22:00)
[2024-07-06] MEDS: Furosemide 40 MG TABLET 80 MG PO (08:42)
[2024-07-06] MEDS: lisinopriL 10 MG TABLET PO (08:42)
[2024-07-06] MEDS: Metoprolol Succinate ER 50 MG TAB.ER.24H PO (08:42)
[2024-07-06] MEDS: polyethylene glycoL 3350 17 GM POWD.PACK PO ×2 (08:46→22:13)
--- NOTE | 2024-07-06 10:16 | PHA.MEDREC ---
Addendum entered by Mikayla Gray RPh 07/06/24 10:29: reviewed by [facility]. Original Note: Pharmacy Consult ? Medication Reconciliation Pharmacy has completed the medication reconciliation. Spoke to the pt to confirm meds, who could confirm most meds. Called pharmacy for verification on lisinopril and cefuroxime (lisinopril confirmed, but cefuroxime removed because pharmacy states patient hasn't started medication yet). Patient recently from rehab, where recent claim history exists for montelukast, losartan, and metformin. Confirmed those medications as well. Removed oxybutynin because patient did not say they take the medication and was also not renewed as medication per claim history. Also removed trulicity from list, although patient endorses being on the medication, because the patient states its been months since they last used the medication since being at rehab.
[2024-07-06 11:30] VITALS: BP 156/70; PULSE 73; RESP 18; TEMP 37; O2SAT 94
--- NOTE | 2024-07-06 11:33 | MHC.EDTECH ---
this tech emptied 550 mL of urine from rai bag
[2024-07-06] MEDS: Morphine Sulfate 2 MG/ML CARTRIDGE IVPUSH (11:46)
[2024-07-06] MEDS: Insulin Lispro 100 UNIT/ML 3 ML VIAL SUBCUT ×3 (12:05→22:00)
--- NOTE | 2024-07-06 12:45 | P.PNIM_ITS ---
Subjective Subjective Date of Service: 07/06/24 Interval History: Seen and examined this morning Follow-up for abdominal pain, constipation, UTI Patient reporting generalized abdominal pain, no BM yet Review of Systems Review of Systems: Yes all other systems are reviewed and are negative Constitutional Constitutional: Denies fever(s) Physical Exam 2 Vital Signs: Vital Signs: Last Vital Signs Temp 98.6 F 07/06/24 11:30 Pulse 73 07/06/24 11:30 Resp 18 07/06/24 11:30 BP 156/70 H 07/06/24 11:30 Pulse Ox 94 07/06/24 11:30 O2 Del Method Nasal Cannula 07/06/24 11:30 O2 Flow Rate 2 07/06/24 11:30 BMI result Body Mass Index 45.6 Const: General: comfortable, no acute distress and awake Nutritional Appearance: obese Resp: Other: diminished no wheeze Effort & Inspection: normal respiratory effort, able to speak in complete sentences, no respiratory distress and no use of accessory muscles Cardio: Rate: regular rate GI: Other: no guarding no rebound Inspection: No distended Palpation (GI): Soft to palpation and nontender Neuro: General: moves all extremities and CN's II-XI intact bilaterally Objective Data Active Medications Acetaminophen (Acetaminophen 325 Mg Tablet) 650 mg PO Q6H PRN PRN Reason: Pain, Mild 1-3,fever,headache Apixaban (Apixaban 5 Mg Tablet) 5 mg PO BID [facility] Last Admin: 07/06/24 08:42 Dose: 5 mg Documented By: GORDO Atorvastatin Calcium (Atorvastatin Calcium 20 Mg Tablet) 20 mg PO BEDTIME [facility] Bisacodyl (Bisacodyl 10 Mg Supp.Rect) 10 mg [place] BEDTIME [facility] Calcium Carbonate (Calcium Carbonate 750 Mg Tab.Chew) 750 mg PO Q4H PRN PRN Reason: Heartburn Furosemide (Furosemide 40 Mg Tablet) 80 mg PO DAILY [facility]; Protocol Last Admin: 07/06/24 08:42 Dose: 80 mg Documented By: GORDO Gabapentin (Gabapentin 300 Mg Capsule) 300 mg PO TID [facility] Last Admin: 07/06/24 08:42 Dose: 300 mg Documented By: GORDO Glucose (Glucose Gel 15 Gm Gel..Gram.) 15 gm PO Q15M PRN; Protocol PRN Reason: per Hypoglycemia Standing Ord. Dextrose (D10) 250 mls @ 750 mls/hr IV Q15M PRN; Protocol PRN Reason: per Hypoglycemia Standing Ord. Insulin Human Lispro (Insulin Lispro 100 Unit/Ml 3 Ml Vial) 0 unit SUBCUT QIDACHS [facility]; Protocol Last Admin: 07/06/24 12:05 Dose: 2 unit Documented By: GORDO Lisinopril (Lisinopril 10 Mg Tablet) 10 mg PO DAILY [facility]; Protocol Last Admin: 07/06/24 08:42 Dose: 10 mg Documented By: GORDO Magnesium Hydroxide (Milk Of Magnesia 30 Ml Oral.Susp) 30 ml PO DAILY PRN PRN Reason: Constipation Last Admin: 07/06/24 10:30 Dose: 30 ml Documented By: GORDO Melatonin (Melatonin 3 Mg Tablet) 6 mg PO BEDTIME PRN PRN Reason: Insomnia Meropenem (Meropenem 1 Gm Vial) 1 gm IVPUSH Q8H [facility] Last Admin: 07/06/24 08:42 Dose: 1 gm Documented By: GORDO Metoprolol Succinate (Metoprolol Succinate Er 50 Mg Tab.Er.24h) 50 mg PO DAILY [facility]; Protocol Last Admin: 07/06/24 08:42 Dose: 50 mg Documented By: GORDO Montelukast Sodium (Montelukast Sodium 10 Mg Tablet) 10 mg PO BEDTIME [facility] Polyethylene Glycol (Polyethylene Glycol 3350 17 Gm Powd.Pack) 17 gm PO BID [facility] Sodium Chloride (0.9 % Sodium Chloride Flush 3 Ml Syringe) 3 ml IVFLUSH QSHIFT [facility] Last Admin: 07/06/24 08:42 Dose: 3 ml Documented By: GORDO Labs 07/06/24 05:00 07/06/24 05:00 Labs: Laboratory Results - last 24 hr 07/05/24 07/06/24 07/06/24 16:25 05:00 07:50 MCV 82.6 82.6 MCH 25.9 L 26.0 L MCHC 31.4 31.5 RDW 16.8 H 17.1 H Plt Count 214 193 MPV 11.0 10.9 Immature Gran % (Auto) 0.5 H Neut % (Auto) 72.3 Lymph % (Auto) 15.0 L [place] % (Auto) 9.0 Eos % (Auto) 2.8 Baso % (Auto) 0.4 Lymph # (Auto) 1.3 [place] # (Auto) 0.8 Eos # (Auto) 0.2 Baso # (Auto) 0.0 Abs Immat Gran (auto) 0.04 H Absolute Neuts (auto) 6.2 Absolute Nucleated RBC 0.000 0.000 Nucleated RBC % (auto) 0.0 0.0 Anion Gap 13 13 Estim Creat Clear Calc 112.4 118.1 Estimated GFR > 60 > 60 POC Glucose 62 Random Glucose 223 H 62 Calcium 9.0 9.1 Magnesium 1.8 Total Bilirubin 0.4 AST 19 ALT 19 Alkaline Phosphatase 104 Total Protein 6.6 Albumin 3.5 Lipase 10 Urine Color Yellow Urine Appearance Clear Urine pH 8.0 Ur Specific [place] <= 1.005 Urine Protein Negative Urine Glucose (UA) Negative Urine Ketones Negative Urine Blood Negative Urine Nitrite Positive H Ur Leukocyte Esterase Moderate (2+) H Urine RBC 0-2 Urine WBC 6-10 H Ur Squamous Epith Cells 6-10 Urine Bacteria 4+ Hyaline Casts 0-2 Assessment and Plan (1) Constipation: Status: Acute (2) Urinary tract infection associated with indwelling urethral catheter: Status: Acute Plan 73F PMH chronic hypoxic and hypercapnic respiratory failure due to COPD, chronic diastolic CHF, moderate aortic stenosis, wheelchair-bound, morbid obesity, ERICKA, diabetes, hypertension, paroxysmal atrial fibrillation, chronic urinary retention with chronic Molina, history of CVA, presented with abdominal pain Abdominal pain Suspect due to constipation, can not rule out appendicitis Observe with serial abdominal exams, General surgery eval -less likely to be acute appendicitis, empiric IV meropenem Continue MiraLax, enemas and suppositories Pyuria and bacteriuria of unclear significance in patient with neurogenic bladder with chronic Molina and history of ESBL E coli Empiric IV meropenem, follow up cultures Chronic hypoxic and hypercapnic respiratory failure due to COPD Continue 2 L supplemental O2 - avoid over oxygenation Chronic diastolic CHF and moderate aortic stenosis Continue maintenance Lasix Morbid obesity Weight loss recommended ERICKA CPAP at night Diabetes with hyperglycemia Insulin sliding scale Hold metformin on lantus at baseline, am POC 62. will check hba1c follow sliding scale needs; consider adding low dose lantus and uptitrating prn Hypertension Continue lisinopril, metoprolol Losartan also on med rec - will not combine with NIK Paroxysmal atrial fibrillation Toprol, Eliquis History of CVA Continue Eliquis and statin DVT prophylaxis on Eliquis Full Code Quality Stroke Does the patient have a stroke diagnosis?: No VTE Prior VTE?: No VTE Risk Level:: Medical - moderate - high VTE Device Contraindication: Treatment Not Indicated VTE Drug Contraindication: N/A - Med Ordered
[2024-07-06 13:15] LABS: Estimated Average Glucose 229 mg/dL; Hemoglobin A1C 280.4147 umol/L; Hemoglobin A1c % 9.6 % (<6.0); Total Hemoglobin (HGBA1C) 3422.7086 umol/L
[2024-07-06] MEDS: ondansetron HCL 4 MG/2 ML VIAL IVPUSH (14:30)
--- NOTE | 2024-07-06 14:45 | MHC.EDTECH ---
this tech emptied out 1000mL of urine from rai bag
[2024-07-06 16:09] VITALS: BP 131/72; PULSE 72; RESP 16; TEMP 37.1; O2SAT 97
--- NOTE | 2024-07-06 16:10 | MHC.EDTECH ---
This pct assumed care of Patient at 1500 ,vitals taken ,Patient was soiled ,care given bedding and gown change ,Patient reposition and boosted up in bed ,Patient had a pudding for snack .all safety measure in Place .
[2024-07-06 16:52] LABS: Glucose, Whole Blood 220 mg/dL (60-115)
[2024-07-06 16:52] LABS: Glucose, Whole Blood 162 mg/dL (60-115)
--- NOTE | 2024-07-06 17:54 | PC.NURSE ---
Pts POC at dinner 46. Pt asymptomatic. Given 4oz OJ and ate some of her dinner. Recheck 134. DEANN Molina notified.
[2024-07-06] MEDS: LORazepam 2 MG/ML VIAL 1 MG IVPUSH (18:56)
[2024-07-06] MEDS: Morphine Sulfate 4 MG/ML CARTRIDGE IVPUSH (18:56)
--- NOTE | 2024-07-06 19:04 | PC.NURSE ---
pt medicated per SEP for 04/18 labia pain- IV ativan also given as pt arrived to main ed extremely tearful perseverating on treatment she received while in rehab and with home care. reassurance given. pt watching TV at this time call bain within reach
--- NOTE | 2024-07-06 20:20 | MHC.EDTECH ---
This tech took over care of patient at 1900,rounded and introduced self to pt,patient is resting quietly,call bain in reach
[2024-07-06 21:00] VITALS: BP 126/56; PULSE 66; RESP 18; TEMP 36.7; O2SAT 97
[2024-07-06 21:15] LABS: Glucose, Whole Blood 266 mg/dL (60-115)
--- NOTE | 2024-07-06 21:15 | MHC.EDTECH ---
POC taken and is 266,RN made aware
[2024-07-06] MEDS: bisacodyL 10 MG SUPP.RECT PR (22:00)
[2024-07-06] MEDS: Atorvastatin Calcium 20 MG TABLET PO (22:00)
[2024-07-06] MEDS: Montelukast Sodium 10 MG TABLET PO (22:00)
--- NOTE | 2024-07-06 23:44 | PC.RT ---
Patient admits she has worn CPAP in the past but refuses tonight as she c/o abdominal pain and does not wish to exacerbate this. She states she would like to return to sleep. Patient educated, still refuses. Patient educated to alert staff if she wishes to wear mask.
[2024-07-07] VITALS (10 sets, daily range): BP systolic 99–143; BP diastolic 53–62; PULSE 68–93; RESP 16–18; TEMP 36.1–36.6; O2SAT 86–97; BMI 44.0
--- NOTE | 2024-07-07 00:59 | MHC.EDTECH ---
Rounds and vitals completed,BP is low 99/54,RN made aware,emptied 1000MLS from Molina,yellow in color,patient repositioned to comfort,call bain in reach
--- NOTE | 2024-07-07 02:00 | PC.NURSE ---
This rfp writer assumed care of this Pt at 2300. Pt A&Ox3, reports pain to coccyx and labia. Pt bottom is red, foam applied to coccyx area, barrier cream applied, and repositioned. Pt has a chronic indwelling 26F Molina (leaks due to size). Hx COPD on 2L at baseline, uses CPAP at night for ERICKA (refused tonight).
[2024-07-07] MEDS: 0.9 % Sodium Chloride Flush 3 ML SYRINGE IVFLUSH ×4 (02:30→21:23)
[2024-07-07] MEDS: Meropenem 1 GM VIAL IVPUSH ×2 (02:30→08:23)
--- NOTE | 2024-07-07 03:00 | MHC.EDTECH ---
Addendum entered by Maria Eugenia Tyler 07/07/24 03:01: RN at bedside to with t/w,barrier cream applied to groin area,patient was placed on right side,pillows placed for comfort,call bain in reach Original Note: Patient was repositioned,patient's bottom was red,foam DSG applied to coccyx
[2024-07-07 07:40] LABS: Glucose, Whole Blood 172 mg/dL (60-115)
[2024-07-07] MEDS: Furosemide 40 MG TABLET 80 MG PO (09:55)
[2024-07-07] MEDS: lisinopriL 10 MG TABLET PO (09:56)
[2024-07-07] MEDS: Apixaban 5 MG TABLET PO ×2 (09:56→21:16)
[2024-07-07] MEDS: Metoprolol Succinate ER 50 MG TAB.ER.24H PO (10:02)
[2024-07-07] MEDS: Aspirin Enteric Coated 81 MG TABLET.DR PO (10:02)
[2024-07-07 11:17] LABS: Glucose, Whole Blood 188 mg/dL (60-115)
[2024-07-07] MEDS: Insulin Lispro 100 UNIT/ML 3 ML VIAL SUBCUT ×3 (12:24→21:15)
--- NOTE | 2024-07-07 12:38 | HO.SKINPHOTO ---
Addendum entered by Shelby Garcia RN 07/07/24 17:53: Right foot 2nd 3rd toe Skin prep applied, SLIVER LAPPER. Original Note: Open areas of skin noted. Foams and triad applied to buttocks. Xeroform and gauze wrap applied to left newell, Skin prep applied to right great toe. Wound care nurse Consulted, airloss bed ordered and applied to bed, nutritional consult ordered. Foam applied to heels for prevention, heels floating on pillows. Buttocks Left Newell Left newell Right Great toe
[2024-07-07] MEDS: ondansetron HCL 4 MG/2 ML VIAL IVPUSH ×2 (13:39→21:21)
--- NOTE | 2024-07-07 13:45 | HO.PM.IMPN ---
Subjective Subjective Date of Service: 07/07/24 Interval History: seen and examined this morning follow up for abdominal pain sleepy this am, but later in the day awake and talking had episode of vomiting this afternoon Review of Systems Review of Systems: Yes all other systems are reviewed and are negative Constitutional Constitutional: Denies fever(s) Cardiovascular Cardiovascular: Denies chest pain Gastrointestinal Gastrointestinal: Reports nausea and Reports vomiting Physical Exam Vital Signs: Vital Signs: Last Vital Signs Temp 97.5 F 07/07/24 11:23 Pulse 75 07/07/24 11:23 Resp 16 07/07/24 11:23 BP 143/61 H 07/07/24 11:23 Pulse Ox 93 07/07/24 11:23 O2 Del Method Nasal Cannula 07/07/24 11:23 O2 Flow Rate 2 07/07/24 11:23 BMI result Body Mass Index 44.0 Const: General: comfortable, no acute distress, alert and awake Nutritional Appearance: obese Resp: Other: diminished no wheeze Effort & Inspection: normal respiratory effort, able to speak in complete sentences, no respiratory distress and no use of accessory muscles Cardio: Rate: regular rate GI: Other: no guarding no rebound Inspection: No distended Palpation (GI): Soft to palpation and nontender Neuro: General: moves all extremities and CN's II-XI intact bilaterally Objective Data Active Medications Acetaminophen (Acetaminophen 325 Mg Tablet) 650 mg PO Q6H PRN PRN Reason: Pain, Mild 1-3,fever,headache Albuterol Sulfate (Albuterol Sulfate (0.083%) 2.5 Mg/3 Ml Vial.Neb) 2.5 mg INHALE Q6H PRN PRN Reason: shortness of breath or wheezing Albuterol Sulfate (Albuterol Sulfate 90 Mcg 8 Gm Inhaler) 2 puff INHALE Q6H PRN PRN Reason: shortness of breath or wheezing Apixaban (Apixaban 5 Mg Tablet) 5 mg PO BID [facility] Last Admin: 07/07/24 09:56 Dose: 5 mg Documented By: SD Aspirin (Aspirin Enteric Coated 81 Mg Tablet.) 81 mg PO DAILY [facility] Last Admin: 07/07/24 10:02 Dose: 81 mg Documented By: SD Atorvastatin Calcium (Atorvastatin Calcium 20 Mg Tablet) 20 mg PO BEDTIME [facility] Last Admin: 07/06/24 22:00 Dose: 20 mg Documented By: JOHN Bisacodyl (Bisacodyl 10 Mg Supp.Rect) 10 mg DC BEDTIME [facility] Last Admin: 07/06/24 22:00 Dose: 10 mg Documented By: JOHN Calcium Carbonate (Calcium Carbonate 750 Mg Tab.Chew) 750 mg PO Q4H PRN PRN Reason: Heartburn Fluticasone/Vilanterol (Fluticasone/Vilanterol 200/25 Blst.W.Dev) 1 puff INHALE RDAILY [facility] Furosemide (Furosemide 40 Mg Tablet) 80 mg PO DAILY [facility]; Protocol Last Admin: 07/07/24 09:55 Dose: 80 mg Documented By: SD Gabapentin (Gabapentin 300 Mg Capsule) 300 mg PO TID [facility] Last Admin: 07/07/24 08:37 Dose: Not Given Documented By: SD Non-Admin Reason: pt drowsy Glucose (Glucose Gel 15 Gm Gel..Gram.) 15 gm PO Q15M PRN; Protocol PRN Reason: per Hypoglycemia Standing Ord. Dextrose (D10) 250 mls @ 750 mls/hr IV Q15M PRN; Protocol PRN Reason: per Hypoglycemia Standing Ord. Insulin Human Lispro (Insulin Lispro 100 Unit/Ml 3 Ml Vial) 0 unit SUBCUT QIDACHS [facility]; Protocol Last Admin: 07/07/24 12:24 Dose: 2 unit Documented By: SD Lisinopril (Lisinopril 10 Mg Tablet) 10 mg PO DAILY [facility]; Protocol Last Admin: 07/07/24 09:56 Dose: 10 mg Documented By: SD Magnesium Hydroxide (Milk Of Magnesia 30 Ml Oral.Susp) 30 ml PO DAILY PRN PRN Reason: Constipation Last Admin: 07/06/24 10:30 Dose: 30 ml Documented By: GORDO Melatonin (Melatonin 3 Mg Tablet) 6 mg PO BEDTIME PRN PRN Reason: Insomnia Meropenem (Meropenem 1 Gm Vial) 1 gm IVPUSH Q8H [facility] Last Admin: 07/07/24 08:23 Dose: 1 gm Documented By: SD Metoprolol Succinate (Metoprolol Succinate Er 50 Mg Tab.Er.24h) 50 mg PO DAILY [facility]; Protocol Last Admin: 07/07/24 10:02 Dose: 50 mg Documented By: SD Montelukast Sodium (Montelukast Sodium 10 Mg Tablet) 10 mg PO BEDTIME [facility] Last Admin: 07/06/24 22:00 Dose: 10 mg Documented By: JOHN Ondansetron HCl (Ondansetron Hcl 4 Mg/2 Ml Vial) 4 mg IVPUSH Q8H PRN PRN Reason: Nausea and Vomiting Last Admin: 07/07/24 13:39 Dose: 4 mg Documented By: SD Polyethylene Glycol (Polyethylene Glycol 3350 17 Gm Powd.Pack) 17 gm PO BID [facility] Last Admin: 07/07/24 08:37 Dose: Not Given Documented By: SD Non-Admin Reason: pt drowsy Sodium Chloride (0.9 % Sodium Chloride Flush 3 Ml Syringe) 3 ml IVFLUSH QSHIFT [facility] Last Admin: 07/07/24 08:35 Dose: 3 ml Documented By: SD Labs 07/06/24 05:00 07/06/24 05:00 Labs: Laboratory Results - last 24 hr 07/06/24 07/06/24 07/06/24 11:51 16:49 21:11 POC Glucose 162 H 220 H 266 H 07/07/24 07/07/24 07:18 11:13 POC Glucose 172 H 188 H Microbiology Microbiology Results: Microbiology 07/05/24 Unknown Urine Culture - Final Urine clean catch - Clean Catch Midstream 07/05/24 19:43 Blood Culture - Preliminary Blood - Venous No growth after 24 hours. 07/05/24 18:36 Blood Culture - Preliminary Blood - Venous No growth after 24 hours. Assessment and Plan (1) Constipation: Status: Acute Plan 73F PMH chronic hypoxic and hypercapnic respiratory failure due to COPD, chronic diastolic CHF, moderate aortic stenosis, wheelchair-bound, morbid obesity, ERICKA, diabetes, hypertension, paroxysmal atrial fibrillation, chronic urinary retention with chronic Molina, history of CVA, presented with abdominal pain Abdominal pain Suspect due to constipation, can not rule out appendicitis Observe with serial abdominal exams seen by General surgery eval -less likely to be acute appendicitis Continue MiraLax, enemas and suppositories Pyuria and bacteriuria of unclear significance in patient with neurogenic bladder with chronic Molina and history of ESBL E coli Empirically treated with IV meropenem, urine culture is negative - will stop abx Chronic hypoxic and hypercapnic respiratory failure due to COPD Continue 2 L supplemental O2 - avoid over oxygenation co2 retainer protocol gabapentin placed on hold as pt was sleepy this am; more awake this afternoon; follow mentation Chronic diastolic CHF and moderate aortic stenosis Continue maintenance Lasix Morbid obesity Weight loss recommended ERICKA CPAP at night - pt refused overnight Diabetes with hyperglycemia Insulin sliding scale Hold metformin hba1c 9.6 on clear liquid diet for now on lantus at baseline - follow sliding scale needs; consider adding low dose lantus and uptitrating prn Hypertension Continue lisinopril, metoprolol Losartan also on med rec - will not combine with NIK Paroxysmal atrial fibrillation Toprol, Eliquis History of CVA Continue Eliquis and statin DVT prophylaxis on Eliquis Full Code Quality Stroke Does the patient have a stroke diagnosis?: No VTE Prior VTE?: No VTE Risk Level:: Medical - moderate - high VTE Device Contraindication: Treatment Not Indicated VTE Drug Contraindication: N/A - Med Ordered
--- NOTE | 2024-07-07 16:10 | MHC.CM.PN ---
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
[2024-07-07 16:24] LABS: Glucose, Whole Blood 329 mg/dL (60-115)
[2024-07-07] MEDS: Lactulose 20 GM/30 ML SOLUTION PO (16:42)
[2024-07-07] MEDS: Morphine Sulfate 2 MG/ML CARTRIDGE IVPUSH (17:08)
--- NOTE | 2024-07-07 17:15 | PC.NURSE ---
Pt was drowsy this morning awakens to voice, unsure of place and time DEANN Stallings made aware, pt was noted to have ativan and morphine the night before. Pt became more alert throughout shift. Afternoon was A&Ox3-4 able to make needs known. Pt vomited this afternoon after lunch, zofan given with mild effect, PA changed diet to clear liquid. Pt received soap suds enema with no effect, c/o abd pain and crying out. +BS noted, abd soft obese, but tender to palpation. Pt given 1x dose of 2mg IVP morphine per PA, pending effectiveness.
[2024-07-07 19:59] LABS: Glucose, Whole Blood 287 mg/dL (60-115)
[2024-07-07] MEDS: bisacodyL 10 MG SUPP.RECT PR (21:09)
[2024-07-07] MEDS: polyethylene glycoL 3350 17 GM POWD.PACK PO (21:16)
[2024-07-07] MEDS: Atorvastatin Calcium 20 MG TABLET PO (21:16)
[2024-07-07] MEDS: Montelukast Sodium 10 MG TABLET PO (21:16)
[2024-07-07] MEDS: Milk of Magnesia 30 ML ORAL.SUSP PO (21:16)
[2024-07-08] VITALS (9 sets, daily range): BP systolic 103–155; BP diastolic 51–68; PULSE 67–93; RESP 16–18; TEMP 35.9–36.8; O2SAT 89–97
[2024-07-08] MEDS: Acetaminophen 325 MG TABLET 650 MG PO ×2 (00:23→11:37)
[2024-07-08] MEDS: traMADoL HCL 50 MG TABLET 25 MG PO ×3 (01:35→23:07)
[2024-07-08] MEDS: Melatonin 3 MG TABLET 6 MG PO ×2 (02:40→23:07)
[2024-07-08] MEDS: Morphine Sulfate 4 MG/ML CARTRIDGE IVPUSH (05:51)
[2024-07-08 06:55] LABS: Anion Gap 13 (12-20); Blood Urea Nitrogen 24 mg/dL (9-16); Calcium 8.7 mg/dL (8.4-10.2); Carbon Dioxide 36 mmol/L (22-29); Chloride 91 mmol/L (96-108); Creatinine Clr Calc Pharmacy 83.2; Estimated Glomerular Filt Rate > 60; Glucose Random 232 mg/dL (60-115); Potassium 4.4 mmol/L (3.3-5.1); Sodium 136 mmol/L (135-145)
[2024-07-08 07:25] LABS: Glucose, Whole Blood 233 mg/dL (60-115)
[2024-07-08] MEDS: Furosemide 40 MG TABLET 80 MG PO (07:50)
[2024-07-08] MEDS: Aspirin Enteric Coated 81 MG TABLET.DR PO (07:51)
[2024-07-08] MEDS: Insulin Lispro 100 UNIT/ML 3 ML VIAL SUBCUT ×4 (07:52→20:39)
[2024-07-08] MEDS: polyethylene glycoL 3350 17 GM POWD.PACK PO ×2 (07:52→20:21)
[2024-07-08] MEDS: Apixaban 5 MG TABLET PO ×2 (07:52→20:21)
[2024-07-08] MEDS: 0.9 % Sodium Chloride Flush 3 ML SYRINGE IVFLUSH ×3 (07:53→23:20)
--- NOTE | 2024-07-08 11:00 | MHC.CM.PN ---
PER MD ROUNDS, PT WILL LIKELY BE READY TO DC TOMORROW DCP: HOME [facility] BLS TRANSPORT
[2024-07-08] MEDS: Fluticasone/Vilanterol 200/25 BLST.W.DEV 1 PUFF INHALE (11:22)
[2024-07-08 11:34] LABS: Glucose, Whole Blood 194 mg/dL (60-115)
--- NOTE | 2024-07-08 13:10 | P.PNIM_ITS ---
Subjective Subjective Date of Service: 07/08/24 Interval History: seen and examined this morning follow up for abdominal pain sleepy this am, but later in the day awake and talking had episode of vomiting this afternoon Physical Exam 2 Vital Signs: Vital Signs: Last Vital Signs Temp 98.3 F 07/08/24 12:00 Pulse 91 07/08/24 12:00 Resp 18 07/08/24 12:00 BP 119/56 L 07/08/24 12:00 Pulse Ox 89 L 07/08/24 12:00 O2 Del Method Room Air 07/08/24 12:00 O2 Flow Rate 2.0 07/08/24 12:00 BMI result Body Mass Index 44.0 Const: General: comfortable, no acute distress, alert and awake Nutritional Appearance: obese Resp: Other: diminished no wheeze Effort & Inspection: normal respiratory effort, able to speak in complete sentences, no respiratory distress and no use of accessory muscles Cardio: Rate: regular rate GI: Other: no guarding no rebound Inspection: No distended Palpation (GI): Soft to palpation and nontender Neuro: General: moves all extremities and CN's II-XI intact bilaterally Objective Data Active Medications Acetaminophen (Acetaminophen 325 Mg Tablet) 650 mg PO Q6H PRN PRN Reason: Pain, Mild 1-3,fever,headache Last Admin: 07/08/24 11:37 Dose: 650 mg Documented By: GONZALO Albuterol Sulfate (Albuterol Sulfate (0.083%) 2.5 Mg/3 Ml Vial.Neb) 2.5 mg INHALE Q6H PRN PRN Reason: shortness of breath or wheezing Albuterol Sulfate (Albuterol Sulfate 90 Mcg 8 Gm Inhaler) 2 puff INHALE Q6H PRN PRN Reason: shortness of breath or wheezing Apixaban (Apixaban 5 Mg Tablet) 5 mg PO BID [facility] Last Admin: 07/08/24 07:52 Dose: 5 mg Documented By: GONZALO Aspirin (Aspirin Enteric Coated 81 Mg Tablet.) 81 mg PO DAILY [facility] Last Admin: 07/08/24 07:51 Dose: 81 mg Documented By: GONZALO Atorvastatin Calcium (Atorvastatin Calcium 20 Mg Tablet) 20 mg PO BEDTIME [facility] Last Admin: 07/07/24 21:16 Dose: 20 mg Documented By: KRYSTAL Bisacodyl (Bisacodyl 10 Mg Supp.Rect) 10 mg [place] BEDTIME [facility] Last Admin: 07/07/24 21:09 Dose: 10 mg Documented By: KRYSTAL Calcium Carbonate (Calcium Carbonate 750 Mg Tab.Chew) 750 mg PO Q4H PRN PRN Reason: Heartburn Fluticasone/Vilanterol (Fluticasone/Vilanterol 200/25 Blst.W.Dev) 1 puff INHALE RDAILY [facility] Last Admin: 07/08/24 11:22 Dose: 1 puff Documented By: IGLESIA Furosemide (Furosemide 40 Mg Tablet) 80 mg PO DAILY [facility]; Protocol Last Admin: 07/08/24 07:50 Dose: 80 mg Documented By: GONZALO Gabapentin (Gabapentin 300 Mg Capsule) 300 mg PO TID [facility] Last Admin: 07/07/24 08:37 Dose: Not Given Documented By: SD Non-Admin Reason: pt drowsy Glucose (Glucose Gel 15 Gm Gel..Gram.) 15 gm PO Q15M PRN; Protocol PRN Reason: per Hypoglycemia Standing Ord. Dextrose (D10) 250 mls @ 750 mls/hr IV Q15M PRN; Protocol PRN Reason: per Hypoglycemia Standing Ord. Insulin Human Lispro (Insulin Lispro 100 Unit/Ml 3 Ml Vial) 0 unit SUBCUT QIDACHS [facility]; Protocol Last Admin: 07/08/24 11:38 Dose: 2 unit Documented By: GONZALO Lisinopril (Lisinopril 10 Mg Tablet) 10 mg PO DAILY [facility]; Protocol Last Admin: 07/08/24 07:51 Dose: Not Given Documented By: GONZALO Non-Admin Reason: low B/P Magnesium Hydroxide (Milk Of Magnesia 30 Ml Oral.Susp) 30 ml PO DAILY PRN PRN Reason: Constipation Last Admin: 07/07/24 21:16 Dose: 30 ml Documented By: KRYSTAL Melatonin (Melatonin 3 Mg Tablet) 6 mg PO BEDTIME PRN PRN Reason: Insomnia Last Admin: 07/08/24 02:40 Dose: 6 mg Documented By: KRYSTAL Metoprolol Succinate (Metoprolol Succinate Er 50 Mg Tab.Er.24h) 50 mg PO DAILY [facility]; Protocol Last Admin: 07/08/24 07:52 Dose: Not Given Documented By: GONZALO Non-Admin Reason: low b/p Montelukast Sodium (Montelukast Sodium 10 Mg Tablet) 10 mg PO BEDTIME [facility] Last Admin: 07/07/24 21:16 Dose: 10 mg Documented By: KRYSTAL Ondansetron HCl (Ondansetron Hcl 4 Mg/2 Ml Vial) 4 mg IVPUSH Q6H PRN PRN Reason: Nausea and Vomiting Last Admin: 07/07/24 21:21 Dose: 4 mg Documented By: KRYSTAL Polyethylene Glycol (Polyethylene Glycol 3350 17 Gm Powd.Pack) 17 gm PO BID [facility] Last Admin: 07/08/24 07:52 Dose: 17 gm Documented By: GONZALO Simethicone (Simethicone 80 Mg Tab.Chew) 80 mg PO QIDWMHS PRN PRN Reason: Gas Sodium Chloride (0.9 % Sodium Chloride Flush 3 Ml Syringe) 3 ml IVFLUSH QSHIFT [facility] Last Admin: 07/08/24 07:53 Dose: 3 ml Documented By: GONZALO Tramadol HCl (Tramadol Hcl 50 Mg Tablet) 25 mg PO Q6H PRN PRN Reason: Pain, Severe (Pain Scale 7-10) Last Admin: 07/08/24 12:22 Dose: 25 mg Documented By: GONZALO Labs 07/06/24 05:00 07/08/24 06:01 Labs: Laboratory Results - last 24 hr 07/07/24 07/07/24 07/08/24 16:15 19:54 06:01 Hold Purple Top SEE NOTE Anion Gap 13 Estim Creat Clear Calc 83.2 Estimated GFR > 60 POC Glucose 329 H 287 H Random Glucose 232 H Calcium 8.7 07/08/24 07/08/24 07:20 11:16 Hold Purple Top Anion Gap Estim Creat Clear Calc Estimated GFR POC Glucose 233 H 194 H Random Glucose Calcium Microbiology Microbiology Results: Microbiology 07/05/24 19:43 Blood Culture - Preliminary Blood - Venous No growth after 48 hours. 07/05/24 18:36 Blood Culture - Preliminary Blood - Venous No growth after 48 hours. 07/05/24 Unknown Urine Culture - Final Urine clean catch - Clean Catch Midstream Assessment and Plan (1) Constipation: Status: Acute Plan 73F PMH chronic hypoxic and hypercapnic respiratory failure due to COPD, chronic diastolic CHF, moderate aortic stenosis, wheelchair-bound, morbid obesity, ERICKA, diabetes, hypertension, paroxysmal atrial fibrillation, chronic urinary retention with chronic Molina, history of CVA, presented with abdominal pain Abdominal pain Suspect due to constipation, can not rule out appendicitis Observe with serial abdominal exams seen by General surgery eval -less likely to be acute appendicitis Continue MiraLax, enemas and suppositories Pyuria and bacteriuria of unclear significance in patient with neurogenic bladder with chronic Molina and history of ESBL E coli Empirically treated with IV meropenem, urine culture is negative - will stop abx Chronic hypoxic and hypercapnic respiratory failure due to COPD Continue 2 L supplemental O2 - avoid over oxygenation co2 retainer protocol gabapentin placed on hold as pt was sleepy this am; more awake this afternoon; follow mentation Chronic diastolic CHF and moderate aortic stenosis Continue maintenance Lasix Morbid obesity Weight loss recommended ERICKA CPAP at night - pt refused overnight Diabetes with hyperglycemia Insulin sliding scale Hold metformin hba1c 9.6 on clear liquid diet for now on lantus at baseline - follow sliding scale needs; consider adding low dose lantus and uptitrating prn Hypertension Continue lisinopril, metoprolol Losartan also on med rec - will not combine with NIK Paroxysmal atrial fibrillation Toprol, Eliquis History of CVA Continue Eliquis and statin DVT prophylaxis on Eliquis Full Code Quality Stroke Does the patient have a stroke diagnosis?: No VTE Prior VTE?: No VTE Risk Level:: Medical - moderate - high VTE Device Contraindication: Treatment Not Indicated VTE Drug Contraindication: N/A - Med Ordered
[2024-07-08] MEDS: Simethicone 80 MG TAB.CHEW PO ×2 (13:26→19:20)
[2024-07-08 16:33] LABS: Glucose, Whole Blood 297 mg/dL (60-115)
--- NOTE | 2024-07-08 17:52 | PM.EVENT ---
Event Note Date of Service: 07/08/24 Event Note: Rectal exam performed with RN revealed no stool in the vault, suggesting constipation higher up. Surgery will assess the patient in the morning. An enema will be attempted again, and a flexible sigmoidoscopy may eventually be needed if symptoms persist. Discussed with surgery. Time Spent With Patient Time: Total time managing care of this patient today ____ minutes.
[2024-07-08] MEDS: Morphine Sulfate 2 MG/ML CARTRIDGE SUBCUT (19:20)
[2024-07-08] MEDS: Milk of Magnesia 30 ML ORAL.SUSP PO (19:20)
[2024-07-08] MEDS: Atorvastatin Calcium 20 MG TABLET PO (20:21)
[2024-07-08] MEDS: Montelukast Sodium 10 MG TABLET PO (20:21)
[2024-07-08] MEDS: bisacodyL 10 MG SUPP.RECT PR (20:21)
[2024-07-08 20:28] LABS: Glucose, Whole Blood 335 mg/dL (60-115)
--- NOTE | 2024-07-08 22:45 | PC.RT ---
Pt refusing CPAP
[2024-07-09] VITALS (12 sets, daily range): BP systolic 120–200; BP diastolic 57–118; PULSE 71–102; RESP 16–20; TEMP 36–36.8; O2SAT 93–96
[2024-07-09] MEDS: Morphine Sulfate 2 MG/ML CARTRIDGE SUBCUT (01:59)
[2024-07-09] MEDS: Fluticasone/Vilanterol 200/25 BLST.W.DEV 1 PUFF INHALE (07:11)
[2024-07-09 08:08] LABS: Glucose, Whole Blood 227 mg/dL (60-115)
--- NOTE | 2024-07-09 08:28 | P.PNGS_ITS ---
Subjective Subjective Date of Service: 07/09/24 Interval history: Given fleet enemas without significant results, rectal exam revealed empty rectal vault. Reports no BM overnight, complains of dry heaving and bloating. Passing some flatus. Physical Exam 2 Vital Signs: Vital Signs: Last Vital Signs Temp 97.9 F 07/09/24 07:34 Pulse 82 07/09/24 07:34 Resp 16 07/09/24 07:34 BP 141/79 H 07/09/24 07:34 Pulse Ox 95 07/09/24 07:34 O2 Del Method Nasal Cannula 07/09/24 07:34 O2 Flow Rate 2.0 07/09/24 07:34 BMI result Body Mass Index 44.0 Const: General: no acute distress and alert Orientation/consciousness: p atient oriented x3 Resp: Effort & Inspection: normal respiratory effort GI: Other: very corpulent abdomen Inspection: Yes distended Palpation (GI): Soft to palpation, nontender and no guarding Percussion: Yes tympanic to percussion Skin: General skin exam: no rashes or lesions noted Neuro: General: patient oriented x3 Objective Data Active Medications Acetaminophen (Acetaminophen 325 Mg Tablet) 650 mg PO Q6H PRN PRN Reason: Pain, Mild 1-3,fever,headache Last Admin: 07/08/24 11:37 Dose: 650 mg Documented By: GONZALO Albuterol Sulfate (Albuterol Sulfate (0.083%) 2.5 Mg/3 Ml Vial.Neb) 2.5 mg INHALE Q6H PRN PRN Reason: shortness of breath or wheezing Albuterol Sulfate (Albuterol Sulfate 90 Mcg 8 Gm Inhaler) 2 puff INHALE Q6H PRN PRN Reason: shortness of breath or wheezing Apixaban (Apixaban 5 Mg Tablet) 5 mg PO BID [facility] Last Admin: 07/08/24 20:21 Dose: 5 mg Documented By: KRYSTAL Aspirin (Aspirin Enteric Coated 81 Mg Tablet.) 81 mg PO DAILY [facility] Last Admin: 07/08/24 07:51 Dose: 81 mg Documented By: GONZALO Atorvastatin Calcium (Atorvastatin Calcium 20 Mg Tablet) 20 mg PO BEDTIME [facility] Last Admin: 07/08/24 20:21 Dose: 20 mg Documented By: KRYSTAL Bisacodyl (Bisacodyl 10 Mg Supp.Rect) 10 mg [place] BEDTIME [facility] Last Admin: 07/08/24 20:21 Dose: 10 mg Documented By: KRYSTAL Calcium Carbonate (Calcium Carbonate 750 Mg Tab.Chew) 750 mg PO Q4H PRN PRN Reason: Heartburn Fluticasone/Vilanterol (Fluticasone/Vilanterol 200/25 Blst.W.Dev) 1 puff INHALE RDAILY [facility] Last Admin: 07/09/24 07:11 Dose: 1 puff Documented By: SORAIDA Furosemide (Furosemide 40 Mg Tablet) 80 mg PO DAILY [facility]; Protocol Last Admin: 07/08/24 07:50 Dose: 80 mg Documented By: GONZALO Gabapentin (Gabapentin 300 Mg Capsule) 300 mg PO TID [facility] Last Admin: 07/07/24 08:37 Dose: Not Given Documented By: SD Non-Admin Reason: pt drowsy Glucose (Glucose Gel 15 Gm Gel..Gram.) 15 gm PO Q15M PRN; Protocol PRN Reason: per Hypoglycemia Standing Ord. Dextrose (D10) 250 mls @ 750 mls/hr IV Q15M PRN; Protocol PRN Reason: per Hypoglycemia Standing Ord. Insulin Human Lispro (Insulin Lispro 100 Unit/Ml 3 Ml Vial) 0 unit SUBCUT QIDACHS [facility]; Protocol Last Admin: 07/08/24 20:39 Dose: 8 unit Documented By: KRYSTAL Lisinopril (Lisinopril 10 Mg Tablet) 10 mg PO DAILY [facility]; Protocol Last Admin: 07/08/24 07:51 Dose: Not Given Documented By: GONZALO Non-Admin Reason: low B/P Magnesium Hydroxide (Milk Of Magnesia 30 Ml Oral.Susp) 30 ml PO DAILY PRN PRN Reason: Constipation Last Admin: 07/08/24 19:20 Dose: 30 ml Documented By: KRYSTAL Melatonin (Melatonin 3 Mg Tablet) 6 mg PO BEDTIME PRN PRN Reason: Insomnia Last Admin: 07/08/24 23:07 Dose: 6 mg Documented By: KRYSTAL Comments: per pt request Metoprolol Succinate (Metoprolol Succinate Er 50 Mg Tab.Er.24h) 50 mg PO DAILY [facility]; Protocol Last Admin: 07/08/24 07:52 Dose: Not Given Documented By: GONZALO Non-Admin Reason: low b/p Montelukast Sodium (Montelukast Sodium 10 Mg Tablet) 10 mg PO BEDTIME [facility] Last Admin: 07/08/24 20:21 Dose: 10 mg Documented By: KRYSTAL Morphine Sulfate (Morphine Sulfate 2 Mg/Ml Cartridge) 2 mg SUBCUT Q6H PRN; Protocol PRN Reason: Pain, Severe (Pain Scale 7-10) Last Admin: 07/09/24 01:59 Dose: 2 mg Documented By: KRYSTAL Ondansetron HCl (Ondansetron Hcl 4 Mg/2 Ml Vial) 4 mg IVPUSH Q6H PRN PRN Reason: Nausea and Vomiting Last Admin: 07/07/24 21:21 Dose: 4 mg Documented By: KRYSTAL Polyethylene Glycol (Polyethylene Glycol 3350 17 Gm Powd.Pack) 17 gm PO BID [facility] Last Admin: 07/08/24 20:21 Dose: 17 gm Documented By: KRYSTAL Simethicone (Simethicone 80 Mg Tab.Chew) 80 mg PO QIDWMHS PRN PRN Reason: Gas Last Admin: 07/08/24 19:20 Dose: 80 mg Documented By: KRYSTAL Sodium Chloride (0.9 % Sodium Chloride Flush 3 Ml [facility]) [facility] Admin: 07/08/24 23:20 Dose: 3 ml Documented By: KRYSTAL Tramadol HCl (Tramadol Hcl 50 Mg Tablet) 25 mg PO Q6H PRN PRN Reason: Pain, Moderate(Pain Scale 4-6) Last Admin: 07/08/24 23:07 Dose: 25 mg Documented By: KRYSTAL Labs 07/06/24 05:00 07/08/24 06:01 Labs: Laboratory Results - last 24 hr 07/08/24 07/08/24 07/08/24 11:16 16:12 19:49 POC Glucose 194 H 297 H 335 H 07/09/24 07:38 POC Glucose 227 H Procedures Date of Service Date of Service: 07/09/24 Progress Note: A&P Assessment and plan (1) Constipation: Status: Acute Plan Review of CT scan suggests narrowing of sigmoid, likely extrinsic secondary to enlarged uterus with fibroids, with significant stool burden proximally. Had pelvic US beginning of June however uterus/ovaries not visualized due to body habitus. Recommend obgyn consult, GI consult for possible flex sig to eval narrowing. She is distended on exam this am and dry heaving, will make NPO and obtain KUB. May need NGT for decompression if has secondary LBO, SBO with distended stomach. Time Spent With Patient Time: Total time managing care of this patient today ____ minutes. Quality Stroke Does the patient have a stroke diagnosis?: No VTE Prior VTE?: No VTE Risk Level:: Medical - moderate - high VTE Device Contraindication: Treatment Not Indicated VTE Drug Contraindication: N/A - Med Ordered
[2024-07-09] MEDS: Apixaban 5 MG TABLET PO (09:40)
[2024-07-09] MEDS: lisinopriL 10 MG TABLET PO (09:40)
[2024-07-09] MEDS: Metoprolol Succinate ER 50 MG TAB.ER.24H PO (09:40)
[2024-07-09] MEDS: Furosemide 40 MG TABLET 80 MG PO (09:40)
[2024-07-09] MEDS: Aspirin Enteric Coated 81 MG TABLET.DR PO (09:40)
--- NOTE | 2024-07-09 09:48 | MHC.CM.PN ---
Addendum entered by Suzy Fish 07/09/24 11:16: Patient is not active with [facility]. Patient is active with [facility]. A referral with clinical info has been sent to the agency. Addendum entered by Suzy Fish 07/09/24 10:59: The EVA (aquired brain injury) Coordinators's name is Tena. Please call her prior to discharge for staffing coordination. Addendum entered by Suzy Fish 07/09/24 10:48: A call was received from EVA coordinator. She called re dc for staffing. A clinical update was provided. DP once medically cleared discharge to home with [facility] staff in place. Coordinator's contact info [phone]. Original Note: Patient is not ready for discharge. Patient is NPO. She may require an NGT to decompress ab. A referral has been sent to [facility]. DP once medically clear home with resumption of services via BLS.
--- NOTE | 2024-07-09 11:03 | P.PNIM_ITS ---
Subjective Subjective Date of Service: 07/09/24 Interval History: seen and examined this morning c/o less pain this morning, and has had a bowel movment Physical Exam 2 Vital Signs: Vital Signs: Last Vital Signs Temp 98.3 F 07/09/24 08:45 Pulse 83 07/09/24 08:45 Resp 16 07/09/24 08:45 BP 150/66 H 07/09/24 08:45 Pulse Ox 94 07/09/24 08:45 O2 Del Method Nasal Cannula 07/09/24 08:45 O2 Flow Rate 2.0 07/09/24 08:45 BMI result Body Mass Index 44.0 Const: Other: General: AO X 3, no acute distress Resp: CTA bilateral CVS: S1,S2,RRR GI: +BS, NT, no distention rectal exam yesterday no mas, no stool in vault Skin: No rash Neuro: motor grossly intact Psych: appropriate affect Objective Data Active Medications Acetaminophen (Acetaminophen 325 Mg Tablet) 650 mg PO Q6H PRN PRN Reason: Pain, Mild 1-3,fever,headache Last Admin: 07/08/24 11:37 Dose: 650 mg Documented By: GONZALO Albuterol Sulfate (Albuterol Sulfate (0.083%) 2.5 Mg/3 Ml Vial.Samreen) 2.5 mg INHALE Q6H PRN PRN Reason: shortness of breath or wheezing Albuterol Sulfate (Albuterol Sulfate 90 Mcg 8 Gm Inhaler) 2 puff INHALE Q6H PRN PRN Reason: shortness of breath or wheezing Apixaban (Apixaban 5 Mg Tablet) 5 mg PO BID [facility] Last Admin: 07/09/24 09:40 Dose: 5 mg Documented By: DAYNA Aspirin (Aspirin Enteric Coated 81 Mg Tablet.) 81 mg PO DAILY [facility] Last Admin: 07/09/24 09:40 Dose: 81 mg Documented By: DAYNA Atorvastatin Calcium (Atorvastatin Calcium 20 Mg Tablet) 20 mg PO BEDTIME [facility] Last Admin: 07/08/24 20:21 Dose: 20 mg Documented By: KRYSTAL Bisacodyl (Bisacodyl 10 Mg Supp.Rect) 10 mg [place] BEDTIME [facility] Last Admin: 07/08/24 20:21 Dose: 10 mg Documented By: KRYSTAL Calcium Carbonate (Calcium Carbonate 750 Mg Tab.Chew) 750 mg PO Q4H PRN PRN Reason: Heartburn Fluticasone/Vilanterol (Fluticasone/Vilanterol 200/25 Blst.W.Dev) 1 puff INHALE RDAILY [facility] Last Admin: 07/09/24 07:11 Dose: 1 puff Documented By: SORAIDA Furosemide (Furosemide 40 Mg Tablet) 80 mg PO DAILY [facility]; Protocol Last Admin: 07/09/24 09:40 Dose: 80 mg Documented By: DAYNA Gabapentin (Gabapentin 300 Mg Capsule) 300 mg PO TID [facility] Last Admin: 07/07/24 08:37 Dose: Not Given Documented By: SD Non-Admin Reason: pt drowsy Glucose (Glucose Gel 15 Gm Gel..Gram.) 15 gm PO Q15M PRN; Protocol PRN Reason: per Hypoglycemia Standing Ord. Dextrose (D10) 250 mls @ 750 mls/hr IV Q15M PRN; Protocol PRN Reason: per Hypoglycemia Standing Ord. Insulin Human Lispro (Insulin Lispro 100 Unit/Ml 3 Ml Vial) 0 unit SUBCUT QIDACHS [facility]; Protocol Last Admin: 07/09/24 10:37 Dose: Not Given Documented By: DAYNA Non-Admin Reason: Physician Approved Lisinopril (Lisinopril 10 Mg Tablet) 10 mg PO DAILY [facility]; Protocol Last Admin: 07/09/24 09:40 Dose: 10 mg Documented By: DAYNA Magnesium Hydroxide (Milk Of Magnesia 30 Ml Oral.Susp) 30 ml PO DAILY PRN PRN Reason: Constipation Last Admin: 07/08/24 19:20 Dose: 30 ml Documented By: KRYSTAL Melatonin (Melatonin 3 Mg Tablet) 6 mg PO BEDTIME PRN PRN Reason: Insomnia Last Admin: 07/08/24 23:07 Dose: 6 mg Documented By: KRYSTAL Comments: per pt request Metoprolol Succinate (Metoprolol Succinate Er 50 Mg Tab.Er.24h) 50 mg PO DAILY [facility]; Protocol Last Admin: 07/09/24 09:40 Dose: 50 mg Documented By: DAYNA Montelukast Sodium (Montelukast Sodium 10 Mg Tablet) 10 mg PO BEDTIME [facility] Last Admin: 07/08/24 20:21 Dose: 10 mg Documented By: KRYSTAL Morphine Sulfate (Morphine Sulfate 2 Mg/Ml Cartridge) 2 mg SUBCUT Q6H PRN; Protocol PRN Reason: Pain, Severe (Pain Scale 7-10) Last Admin: 07/09/24 01:59 Dose: 2 mg Documented By: KRYSTAL Ondansetron HCl (Ondansetron Hcl 4 Mg/2 Ml Vial) 4 mg IVPUSH Q6H PRN PRN Reason: Nausea and Vomiting Last Admin: 07/07/24 21:21 Dose: 4 mg Documented By: KRYSTAL Polyethylene Glycol (Polyethylene Glycol 3350 17 Gm Powd.Pack) 17 gm PO BID [facility] Last Admin: 07/08/24 20:21 Dose: 17 gm Documented By: KRYSTAL Simethicone (Simethicone 80 Mg Tab.Chew) 80 mg PO QIDWMHS PRN PRN Reason: Gas Last Admin: 07/08/24 19:20 Dose: 80 mg Documented By: KRYSTAL Sodium Chloride (0.9 % Sodium Chloride Flush 3 Ml Syringe) 3 ml IVFLUSH QSHIFT [facility] Last Admin: 07/09/24 09:43 Dose: Not Given Documented By: DAYNA Non-Admin Reason: Previously Administered Tramadol HCl (Tramadol Hcl 50 Mg Tablet) 25 mg PO Q6H PRN PRN Reason: Pain, Moderate(Pain Scale 4-6) Last Admin: 07/08/24 23:07 Dose: 25 mg Documented By: KRYSTAL Labs 07/06/24 05:00 07/08/24 06:01 Labs: Laboratory Results - last 24 hr 07/08/24 07/08/24 07/08/24 11:16 16:12 19:49 POC Glucose 194 H 297 H 335 H 07/09/24 07:38 POC Glucose 227 H Assessment and Plan (1) Constipation: Status: Acute Plan 73F PMH chronic hypoxic and hypercapnic respiratory failure due to COPD, chronic diastolic CHF, moderate aortic stenosis, wheelchair-bound, morbid obesity, ERICKA, diabetes, hypertension, paroxysmal atrial fibrillation, chronic urinary retention with chronic Molina, history of CVA, presented with abdominal pain Abdominal pain Suspect due to constipation, appendicitis ruled out continue bowel regime, enema Surgery following, KUB today Continue MiraLax, enemas and suppositories Pyuria and bacteriuria of unclear significance in patient with neurogenic bladder with chronic Molina and history of ESBL E coli Empirically treated with IV meropenem, urine culture is negative - Abx stopped Chronic hypoxic and hypercapnic respiratory failure due to COPD Continue 2 L supplemental O2 - avoid over oxygenation co2 retainer protocol gabapentin on hold Chronic diastolic CHF and moderate aortic stenosis Continue maintenance Lasix Morbid obesity Weight loss recommended ERICKA CPAP at night - pt refused overnight Diabetes with hyperglycemia Insulin sliding scale Hold metformin hba1c 9.6 on clear liquid diet for now on lantus at baseline - follow sliding scale needs; consider adding low dose lantus and uptitrating prn Hypertension Continue lisinopril, metoprolol Losartan also on med rec - will not combine with NIK Paroxysmal atrial fibrillation Toprol, Eliquis History of CVA Continue Eliquis and statin DVT prophylaxis on Eliquis Full Code Quality Stroke Does the patient have a stroke diagnosis?: No VTE Prior VTE?: No VTE Risk Level:: Medical - moderate - high VTE Device Contraindication: Treatment Not Indicated VTE Drug Contraindication: N/A - Med Ordered
[2024-07-09 11:35] LABS: Glucose, Whole Blood 282 mg/dL (60-115)
[2024-07-09] MEDS: Insulin Lispro 100 UNIT/ML 3 ML VIAL SUBCUT ×2 (12:34→17:26)
[2024-07-09] MEDS: polyethylene glycoL 3350 17 GM POWD.PACK PO ×2 (12:35→20:11)
[2024-07-09 16:30] LABS: Glucose, Whole Blood 350 mg/dL (60-115)
[2024-07-09 18:31] LABS: Appearance Urine Clear; Color Urine Yellow; Glucose Urine UA 500 mg/dL (Negative); Leukocyte Esterase Urine Small (1+) (Negative); Nitrite Urine Negative (Negative); PH >= 9.0 (5.0-9.0); UMIC TRIGGER UACC YES; Urine Blood Small (1+) (Negative); Urine Ketones 15 mg/dL (Negative); Urine Protein 30 (1+) mg/dL (Neg-Trace)
[2024-07-09 19:29] LABS: Bacteria Urine Trace (None Seen); Hyaline Casts Urine 0-2 /LPF (0-2); RBC Urine 0-2 /HPF (0-2); Squamous Epithelial Cell Urine 0-2 /HPF (0-2); UACC Culture Trigger YES; WBC Urine 0-5 /HPF (0-5)
--- NOTE | 2024-07-09 20:30 | PC.NURSE ---
Pt refused PO Meds, including insulin, pt educated on the importance of each medication, pt still refused. Pt appears to be very anxious and confused at the moment, and reports that she is scared, pt reassured that she is in a safe place.
[2024-07-09 20:58] LABS: Glucose, Whole Blood 296 mg/dL (60-115)
--- NOTE | 2024-07-09 21:00 | PC.NURSE ---
Pt BP: 190/88, HR:85, Dr. Bhatt made aware, new orders placed, Meds given per SEP.
[2024-07-09] MEDS: hydrALAZINE HCl 20 MG/ML VIAL IVPUSH (21:29)
[2024-07-09] MEDS: 0.9 % Sodium Chloride Flush 3 ML SYRINGE IVFLUSH (21:59)
--- NOTE | 2024-07-09 23:20 | PC.NURSE ---
first BP reassessment: BP: 178/84, HR: 102, Dr Bhatt aware, new orders placed, meds given per SEP, Tele monitor place with continuos O2 monitoring.
[2024-07-09] MEDS: Labetalol HCL 100 MG/20 ML VIAL 20 MG IVPUSH (23:44)
[2024-07-09] MEDS: LORazepam 2 MG/ML VIAL 1 MG IVPUSH (23:45)
[2024-07-10 01:07] VITALS: BP 135/70; PULSE 76; O2SAT 94
[2024-07-10 04:00] VITALS: BP 140/74; PULSE 70; RESP 16; TEMP 36.3; O2SAT 98
[2024-07-10 07:32] LABS: Glucose, Whole Blood 266 mg/dL (60-115)
[2024-07-10 07:57] VITALS: BP 165/78; PULSE 70; RESP 19; TEMP 36.2; O2SAT 99
[2024-07-10] MEDS: Insulin Lispro 100 UNIT/ML 3 ML VIAL SUBCUT ×5 (08:00→21:40)
[2024-07-10] MEDS: Furosemide 40 MG TABLET 80 MG PO (08:01)
[2024-07-10] MEDS: Aspirin Enteric Coated 81 MG TABLET.DR PO (08:01)
[2024-07-10] MEDS: lisinopriL 10 MG TABLET PO (08:01)
[2024-07-10] MEDS: Metoprolol Succinate ER 50 MG TAB.ER.24H PO (08:01)
[2024-07-10] MEDS: Apixaban 5 MG TABLET PO ×2 (08:02→19:43)
[2024-07-10] MEDS: 0.9 % Sodium Chloride Flush 3 ML SYRINGE IVFLUSH ×3 (08:03→21:41)
[2024-07-10] MEDS: Fluticasone/Vilanterol 200/25 BLST.W.DEV 1 PUFF INHALE (08:18)
[2024-07-10 08:19] VITALS: PULSE 88; RESP 14; O2SAT 90
[2024-07-10 11:23] LABS: Glucose, Whole Blood 369 mg/dL (60-115)
[2024-07-10 15:23] VITALS: BP 141/71; PULSE 70; RESP 18; TEMP 36.8; O2SAT 95
[2024-07-10 16:10] LABS: Glucose, Whole Blood 368 mg/dL (60-115)
[2024-07-10] MEDS: Calcium Carbonate 750 MG TAB.CHEW PO (16:26)
[2024-07-10] MEDS: traMADoL HCL 50 MG TABLET 25 MG PO (16:27)
[2024-07-10] MEDS: Insulin Lispro 100 UNIT/ML 3 ML VIAL 7 UNIT SUBCUT (17:01)
[2024-07-10 19:16] VITALS: BP 146/70; PULSE 63; RESP 22; TEMP 36.9; O2SAT 96
[2024-07-10] MEDS: Montelukast Sodium 10 MG TABLET PO (19:43)
[2024-07-10] MEDS: Atorvastatin Calcium 20 MG TABLET PO (19:43)
[2024-07-10] MEDS: Acetaminophen 325 MG TABLET 650 MG PO (19:43)
[2024-07-10] MEDS: Melatonin 3 MG TABLET 6 MG PO (19:44)
[2024-07-10] MEDS: polyethylene glycoL 3350 17 GM POWD.PACK PO (19:49)
[2024-07-10 20:44] LABS: Glucose, Whole Blood 248 mg/dL (60-115)
--- NOTE | 2024-07-11 02:09 | ECG_ITS ---
Test Reason : CP Blood Pressure : / mmHG Vent. Rate : 058 BPM Atrial Rate : 058 BPM P-R Int : 226 ms QRS Dur : 106 ms QT Int : 478 ms P-R-T Axes : 037 007 091 degrees QTc Int : 469 ms Sinus bradycardia with 1st degree A-V block with Premature supraventricular complexes Minimal voltage criteria for LVH, may be normal variant ( Daniel product ) T wave abnormality, consider lateral ischemia Abnormal ECG When compared with ECG of 27-JUN-2024 20:42, Premature supraventricular complexes are now Present RI interval has increased Referred By: Juanjose Cheema Electronically Signed By:CAMERON HO MD
[2024-07-11 02:25] VITALS: BP 120/56; PULSE 58; RESP 20; TEMP 36.3; O2SAT 98
--- NOTE | 2024-07-11 02:30 | PC.NURSE ---
Pt's HR dropped to 34bpm, per Med-tele, sinus lisa; bouncing between 40-[address] Bhatt made aware, EKG ordered.
[2024-07-11 07:24] VITALS: BP 136/64; PULSE 66; RESP 18; TEMP 36.4; O2SAT 98
--- NOTE | 2024-07-11 07:48 | P.PNGS_ITS ---
Subjective Subjective Date of Service: 07/11/24 Interval history: Feels significantly improved. Has had multiple BMs. Passing flatus. Denies further belching, dry heaving. Feels hungry. Physical Exam 2 Vital Signs: Vital Signs: Last Vital Signs Temp 97.6 F 07/11/24 07:24 Pulse 66 07/11/24 07:24 Resp 18 07/11/24 07:24 BP 136/64 07/11/24 07:24 Pulse Ox 98 07/11/24 07:24 O2 Del Method Nasal Cannula 07/11/24 07:24 O2 Flow Rate 2.0 07/11/24 07:24 BMI result Body Mass Index 44.0 Const: General: comfortable, no acute distress and alert O rientation/consciousness: patient oriented x3 Resp: Effort & Inspection: normal respiratory effort GI: Inspection: Yes distended (improved, softly ) Palpation (GI): Soft to palpation and nontender Neuro: General: patient oriented x3 Objective Data Active Medications Acetaminophen (Acetaminophen 325 Mg Tablet) 650 mg PO Q6H PRN PRN Reason: Pain, Mild 1-3,fever,headache Last Admin: 07/10/24 19:43 Dose: 650 mg Documented By: HOLDEN Albuterol Sulfate (Albuterol Sulfate (0.083%) 2.5 Mg/3 Ml Vial.Neb) 2.5 mg INHALE Q6H PRN PRN Reason: shortness of breath or wheezing Albuterol Sulfate (Albuterol Sulfate 90 Mcg 8 Gm Inhaler) 2 puff INHALE Q6H PRN PRN Reason: shortness of breath or wheezing Apixaban (Apixaban 5 Mg Tablet) 5 mg PO BID [facility] Last Admin: 07/10/24 19:43 Dose: 5 mg Documented By: HOLDEN Aspirin (Aspirin Enteric Coated 81 Mg Tablet.) 81 mg PO DAILY [facility] Last Admin: 07/10/24 08:01 Dose: 81 mg Documented By: JARAD Atorvastatin Calcium (Atorvastatin Calcium 20 Mg Tablet) 20 mg PO BEDTIME [facility] Last Admin: 07/10/24 19:43 Dose: 20 mg Documented By: HOLDEN Bisacodyl (Bisacodyl 10 Mg Supp.Rect) 10 mg [place] BEDTIME [facility] Last Admin: 07/10/24 21:39 Dose: Not Given Documented By: HOLDEN Non-Admin Reason: has had multiple BM's today, and refused Calcium Carbonate (Calcium Carbonate 750 Mg Tab.Chew) 750 mg PO Q4H PRN PRN Reason: Heartburn Last Admin: 07/10/24 16:26 Dose: 750 mg Documented By: JARAD Fluticasone/Vilanterol (Fluticasone/Vilanterol 200/25 Blst.W.Dev) 1 puff INHALE RDAILY [facility] Last Admin: 07/10/24 08:18 Dose: 1 puff Documented By: GONZALES Furosemide (Furosemide 40 Mg Tablet) 80 mg PO DAILY [facility]; Protocol Last Admin: 07/10/24 08:01 Dose: 80 mg Documented By: JARAD Gabapentin (Gabapentin 300 Mg Capsule) 300 mg PO TID [facility] Last Admin: 07/07/24 08:37 Dose: Not Given Documented By: SD Non-Admin Reason: pt drowsy Glucose (Glucose Gel 15 Gm Gel..Gram.) 15 gm PO Q15M PRN; Protocol PRN Reason: per Hypoglycemia Standing Ord. Dextrose (D10) 250 mls @ 750 mls/hr IV Q15M PRN; Protocol PRN Reason: per Hypoglycemia Standing Ord. Insulin Human Lispro (Insulin Lispro 100 Unit/Ml 3 Ml Vial) 0 unit SUBCUT QIDACHS [facility]; Protocol Last Admin: 07/10/24 21:40 Dose: 4 unit Documented By: HOLDEN Lisinopril (Lisinopril 10 Mg Tablet) 10 mg PO DAILY [facility]; Protocol Last Admin: 07/10/24 08:01 Dose: 10 mg Documented By: JARAD Magnesium Hydroxide (Milk Of Magnesia 30 Ml Oral.Susp) 30 ml PO DAILY PRN PRN Reason: Constipation Last Admin: 07/08/24 19:20 Dose: 30 ml Documented By: PA-NAOMY Melatonin (Melatonin 3 Mg Tablet) 6 mg PO BEDTIME PRN PRN Reason: Insomnia Last Admin: 07/10/24 19:44 Dose: 6 mg Documented By: HOLDEN Metoprolol Succinate (Metoprolol Succinate Er 50 Mg Tab.Er.24h) 50 mg PO DAILY [facility]; Protocol Last Admin: 07/10/24 08:01 Dose: 50 mg Documented By: JARAD Montelukast Sodium (Montelukast Sodium 10 Mg Tablet) 10 mg PO BEDTIME [facility] Last Admin: 07/10/24 19:43 Dose: 10 mg Documented By: HOLDEN Morphine Sulfate (Morphine Sulfate 2 Mg/Ml Cartridge) 2 mg SUBCUT Q6H PRN; Protocol PRN Reason: Pain, Severe (Pain Scale 7-10) Last Admin: 07/09/24 01:59 Dose: 2 mg Documented By: KRYSTAL Ondansetron HCl (Ondansetron Hcl 4 Mg/2 Ml Vial) 4 mg IVPUSH Q6H PRN PRN Reason: Nausea and Vomiting Last Admin: 07/07/24 21:21 Dose: 4 mg Documented By: KRYSTAL Polyethylene Glycol (Polyethylene Glycol 3350 17 Gm Powd.Pack) 17 gm PO BID [facility] Last Admin: 07/10/24 19:49 Dose: 17 gm Documented By: HOLDEN Simethicone (Simethicone 80 Mg Tab.Chew) 80 mg PO QIDWMHS PRN PRN Reason: Gas Last Admin: 07/08/24 19:20 Dose: 80 mg Documented By: KRYSTAL Sodium Chloride (0.9 % Sodium Chloride Flush 3 Ml Syringe) 3 ml IVFLUSH QSHIFT [facility] Last Admin: 07/10/24 21:41 Dose: 3 ml Documented By: HOLDEN Tramadol HCl (Tramadol Hcl 50 Mg Tablet) 25 mg PO Q6H PRN PRN Reason: Pain, Moderate(Pain Scale 4-6) Last Admin: 07/10/24 16:27 Dose: 25 mg Documented By: JARAD Labs 07/06/24 05:00 07/08/24 06:01 Labs: Laboratory Results - last 24 hr 07/10/24 07/10/24 07/10/24 11:11 16:04 20:34 POC Glucose 369 H* 368 H* 248 H Microbiology Microbiology Results: Microbiology 07/05/24 19:43 Blood Culture - Final Blood - Venous No growth after 5 days. 07/05/24 18:36 Blood Culture - Final Blood - Venous No growth after 5 days. 07/09/24 Unknown Urine Culture - Preliminary Urine clean catch - Clean Catch Midstream Culture in progress. Procedures Date of Service Date of Service: 07/11/24 Progress Note: A&P Assessment and plan (1) Constipation: Status: Acute Plan Area of narrowing of sigmoid on CT scan likely secondary to extrinsic compression secondary to enlarged uterus but now having good GI function. Will need good bowel regimen to prevent constipation and obstruction secondary. Would benefit from f/u with Administrator Pesticide to discuss further treatment of fibroids including uterine fibroid embolization. Can advance diet as tolerated. Time Spent With Patient Time: Total time managing care of this patient today ____ minutes. Quality Stroke Does the patient have a stroke diagnosis?: No VTE Prior VTE?: No VTE Risk Level:: Medical - moderate - high VTE Device Contraindication: Treatment Not Indicated VTE Drug Contraindication: N/A - Med Ordered
[2024-07-11 07:50] LABS: Glucose, Whole Blood 207 mg/dL (60-115)
[2024-07-11] MEDS: Apixaban 5 MG TABLET PO (08:10)
[2024-07-11] MEDS: Insulin Lispro 100 UNIT/ML 3 ML VIAL SUBCUT ×2 (08:10→12:15)
[2024-07-11] MEDS: lisinopriL 10 MG TABLET PO (08:10)
[2024-07-11] MEDS: Furosemide 40 MG TABLET 80 MG PO (08:10)
[2024-07-11] MEDS: polyethylene glycoL 3350 17 GM POWD.PACK PO (08:11)
[2024-07-11] MEDS: Aspirin Enteric Coated 81 MG TABLET.DR PO (08:11)
[2024-07-11] MEDS: 0.9 % Sodium Chloride Flush 3 ML SYRINGE IVFLUSH (08:11)
[2024-07-11 08:27] VITALS: PULSE 82; RESP 16; O2SAT 96
[2024-07-11] MEDS: Fluticasone/Vilanterol 200/25 BLST.W.DEV 1 PUFF INHALE (08:27)
[2024-07-11 09:13] VITALS: BP 136/64
[2024-07-11] MEDS: Metoprolol Succinate ER 50 MG TAB.ER.24H PO (09:13)
--- NOTE | 2024-07-11 09:36 | PM.DS ---
DS: Providers Provider Date of Service: 07/11/24 Date of admission: 07/09/24 13:21 Primary care physician: Cherise Hamm MD Consults: 07/05/24 23:51 Consult to General Surgery Routine [place]ing [place] [facility] Reason for consultation: ?appendicitis on CT 07/07/24 04:24 Consult to Wound Care Routine Reason for consultation: ulcer lt leg, buttocks, right toes 07/08/24 17:30 Consult to General Surgery Routine Consulting Provider[place] [facility] Reason for consultation: severe constipation Has provider been notified: Yes DS: Diagnosis Discharge Diagnosis (1) Constipation: Status: Acute DS: Summary Hospital Course Hospital Course: admission hpi Chief Complaint: abd pain 73F PMH chronic hypoxic and hypercapnic respiratory failure due to COPD, chronic diastolic CHF, moderate aortic stenosis, wheelchair-bound, morbid obesity, ERICKA, diabetes, hypertension, paroxysmal atrial fibrillation, chronic urinary retention with chronic Rai, history of CVA, presented with abdominal pain for 5 days. Patient was recently discharged from short-term rehab. Has been having constipation, had bowel movement just prior to coming in but was small and hard. Pain is diffuse, achy, denies nausea vomiting fever or chills. In ED CT abdomen showed mild dilatation of the appendix concerning for appendicitis, severe stool burden no bowel obstruction, fibroids of uterus, bibasilar atelectasis and/or pneumonitis. Abdominal exam is fairly benign. Patient also noted to have pyuria and bacteriuria on UA. Hsopital course Patient presented with abdominal pain and work up revealed severe constipation on CT which also raised some concern of apendicitis,although clinically she had no other signs suggestive of apendicitis. Initially also there was concern fof uti. She was evaluated by surgery with no concern for apendicitis. Constiapation was managed with agressive bowel regimen with enema, mirilax and has had multiple bowel movement and with resolution of the abdominal pain. She was also initially started on meropenem for possible uti but was later stopped as positive ua is chronic from chronic indwelling rai catheter and likely colonizaton, repeat UA showed improvment. Chronic hypoxic and hypercapnic respiratory failure due to COPD Continue 2 L supplemental O2 - avoid over oxygenation co2 retainer protocol gabapentin to be resume at dc Chronic diastolic CHF and moderate aortic stenosis Continue maintenance Lasix Morbid obesity Weight loss recommended ERICKA CPAP at night - pt refused overnight Diabetes with hyperglycemia resume home insulin and metformi Hypertension Continue lisinopril, metoprolol Paroxysmal atrial fibrillation Toprol, Eliquis History of CVA Continue Eliquis and statin DVT prophylaxis on Eliquis Time Attestation Discharge Coordination Time (in mins): 45 Quality: Safe Use of Opioids Does Pt have an Active Cancer Diagnosis on the Problem List?: No Quality: Stroke Does the patient have a stroke diagnosis?: No Physical Exam Vital Signs: Vital Signs: Last Vital Signs Temp 97.6 F 07/11/24 07:24 Pulse 82 07/11/24 08:27 Resp 16 07/11/24 08:27 BP 136/64 07/11/24 09:13 Pulse Ox 98 07/11/24 07:24 O2 Del Method Nasal Cannula 07/11/24 07:24 O2 Flow Rate 2.0 07/11/24 07:24 BMI result Body Mass Index 44.0 Const: Other: General: AO X 3, no acute distress Resp: CTA bilateral CVS: S1,S2,RRR GI: +BS, NT, no distention rectal exam yesterday no mas, no stool in vault Skin: No rash Neuro: motor grossly intact Psych: appropriate affect DS: Data Data Completed and Pending Completed studies during hospitalization [Text1]: Procedures Excision of Large Intestine, Via Natural or Artificial Opening Endoscopic, Diagnostic (09/20/20) Labs on day of discharge: Laboratory Results - last 24 hr 07/10/24 07/10/24 07/10/24 11:11 16:04 20:34 POC Glucose 369 H* 368 H* 248 H 07/11/24 07:31 POC Glucose 207 H Preliminary micro results at discharge 07/09/24 Unknown Urine Culture - Preliminary Urine clean catch - Clean Catch Midstream Culture in progress. Discharge Plan Discharge Anticipated Discharge Date/Time: 07/11/24 09:37 Patient Disposition: Home, Self-Care Discharge Diagnosis: Abdominal pain due to constipation. Referrals: Cherise Hamm MD [Primary Care Provider] - 1 Week Discharge Medications: No Action Eliquis 5 mg tablet 5 mg PO BID aspirin 81 mg Tablet,Delayed Release (Dr/Ec) 81 mg PO DAILY furosemide 40 mg tablet 80 mg PO DAILY insulin lispro [Humalog KwikPen Insulin] 100 unit/mL insulin pen 1 sliding scale dose subcut TIDAC Protocol: Insulin Correction Scale Less than or equal to 110 ---- Give (units): 0 111 to 150 Give (units): 0 151 to 200 Give (units): 2 201 to 250 Give (units): 4 251 to 300 Give (units): 6 301 to 350 Give (units): 8 Greater than 350 Give (units): 10 Call MD if Blood Glucose > : 350 losartan 50 mg tablet 50 mg PO DAILY metformin 850 mg tablet 850 mg PO DAILY simvastatin 40 mg tablet 40 mg PO BEDTIME lisinopril 10 mg tablet 10 mg PO DAILY insulin glargine [Lantus Solostar U-100 Insulin] 100 unit/mL (3 mL) Insulin Pen 70 unit SUBCUT DAILY albuterol sulfate 2.5 mg /3 mL (0.083 %) solution for nebulization 2.5 mg inhalation Q6H PRN (Reason: shortness of breath or wheezing) acetaminophen 325 mg tablet 650 mg PO Q6H PRN (Reason: Pain) gabapentin 300 mg capsule 300 mg PO TID montelukast 10 mg tablet 10 mg PO BEDTIME fluticasone furoate-vilanterol [Breo Ellipta] 200-25 mcg/dose blister with device 1 ea INHALATION DAILY albuterol sulfate 90 mcg/actuation HFA aerosol inhaler 2 puff inhalation Q6H PRN (Reason: shortness of breath or wheezing) Qty: 8.5 0RF guaifenesin 200 mg/5 mL liquid 200 mg PO Q4H PRN (Reason: cough) Qty: 118 0RF Patient Comments: patient's daughter states patient does not take metoprolol succinate 50 mg tablet extended release 24 hr 50 mg PO DAILY docusate sodium [Colace] 100 mg capsule 100 mg PO BID Qty: 20 0RF sennosides [senna] 8.6 mg tablet 8.6 mg PO BEDTIME PRN (Reason: constipation) Qty: 30 0RF Diet: Advance to usual diet Activity on Discharge: As tolerated Stand Alone Forms: Patient Portal Discharge page Print Language: [place] Care Plan Goals: recovery from constipation Health Concerns: severe constipation recurrent uti Plan of Treatment: take bowel regimen as recommended and follow up with your doctor continue taking alll your other medications Assessment: see above
[2024-07-11] MEDS: metFORMIN HCl 850 MG TABLET PO (10:18)
[2024-07-11] MEDS: Insulin Glargine,Hum.rec.anlog 100 UNIT/ML 10 ML VIAL 45 UNIT SUBCUT (10:18)
[2024-07-11 10:30] LABS: Anion Gap 14 (12-20); Blood Urea Nitrogen 8 mg/dL (9-16); Calcium 9.1 mg/dL (8.4-10.2); Carbon Dioxide 37 mmol/L (22-29); Chloride 86 mmol/L (96-108); Creatinine Clr Calc Pharmacy 87.5; Estimated Glomerular Filt Rate > 60; Glucose Random 337 mg/dL (60-115); Potassium 3.3 mmol/L (3.3-5.1); Sodium 134 mmol/L (135-145)
[2024-07-11 11:51] LABS: Glucose, Whole Blood 337 mg/dL (60-115)
--- NOTE | 2024-07-11 13:47 | MHC.CM.PN ---
Per MD patient medically cleared for dc home w/ resumption of [facility] and [facility] services. STACIE aware of dc. Tena w/ EVA waiver also aware of dc and has arranged for [facility] to restart services at 5pm. [facility] transport schedule for 430pm. RN and aware. IMM delivered.
[2024-07-11 15:38] VITALS: PULSE 78
[2024-07-11 15:46] VITALS: BP 150/63; PULSE 80; RESP 18; TEMP 36.4; O2SAT 99
[2024-07-11 16:22] LABS: Glucose, Whole Blood 324 mg/dL (60-115)
== END 2024-07-11 16:53 | disposition home health service (06) | DRG 392 ==
LOC: HO.ED 23:22 → HO.EDOVER 07-06 → HO.S3 07-07 01:48
PROVIDERS: Physician Assistant Medical; Admitting Provider Internal Medicine; Emergency Provider Emergency Medicine; PCP Family Medicine; Visit Provider Internal Medicine
DX: K59.00 Constipation, unspecified (principal); I50.32 Chronic diastolic (congestive) heart failure; J96.11 Chronic respiratory failure with hypoxia; J96.12 Chronic respiratory failure with hypercapnia; Z68.41 Body mass index [BMI] 40.0-44.9, adult; I11.0 Hypertensive heart disease with heart failure; E66.01 Morbid (severe) obesity due to excess calories; N31.9 Neuromuscular dysfunction of bladder, unspecified; E11.65 Type 2 diabetes mellitus with hyperglycemia; G47.33 Obstructive sleep apnea (adult) (pediatric); I48.0 Paroxysmal atrial fibrillation; I35.0 Nonrheumatic aortic (valve) stenosis; D25.9 Leiomyoma of uterus, unspecified; R33.9 Retention of urine, unspecified; Z99.3 Dependence on wheelchair; Z86.73 Personal history of transient ischemic attack (TIA), and cerebral infarction without residual deficits; Z79.01 Long term (current) use of anticoagulants; Z79.84 Long term (current) use of oral hypoglycemic drugs; Z79.51 Long term (current) use of inhaled steroids; Z79.899 Other long term (current) drug therapy
CPT/HCPCS: 36415; 71045; 74018; 74177; 80048; 80053; 81001; 82947; 83036; 83690; 83735; 85025; 85027; 87040; 87086; 93005; 94640; 99221; 99285; C1758; J0360; J1920; J2060; J2185; J2270; J2405; J2543; J2765; Q9967

== ENCOUNTER → 2024-07-05 16:11 | Outpatient (BNV) | payer MEDICARE, MEDICAID, SELFPAY | PROVIDERS: Emergency Provider Emergency Medicine; PCP Family Medicine; Visit Provider Radiology Neuroradiology | DX: R10.9 Unspecified abdominal pain (principal) | CPT/HCPCS: 71045; 74177 ==

== ENCOUNTER → 2024-07-05 23:55 | Outpatient (BNV) | payer MEDICARE, MEDICAID, SELFPAY | PROVIDERS: Admitting Provider Internal Medicine; Emergency Provider Emergency Medicine; PCP Family Medicine; Visit Provider Internal Medicine | DX: K59.00 Constipation, unspecified (principal) | CPT/HCPCS: 99223; 99232 ==

== ENCOUNTER → 2024-07-05 23:55 | Outpatient (BNV) | payer MEDICARE, MEDICAID, SELFPAY | PROVIDERS: Admitting Provider Internal Medicine; Emergency Provider Emergency Medicine; PCP Family Medicine; Visit Provider Surgery | DX: K59.00 Constipation, unspecified (principal) | CPT/HCPCS: 99222; 99232 ==

== ENCOUNTER → 2024-07-09 09:20 | Outpatient (BNV) | payer MEDICARE, MEDICAID, SELFPAY | PROVIDERS: Admitting Provider Internal Medicine; Emergency Provider Emergency Medicine; PCP Family Medicine; Visit Provider Radiology Diagnostic Radiology | DX: K59.00 Constipation, unspecified (principal) | CPT/HCPCS: 74018 ==

== ENCOUNTER 2024-07-09 13:21 | Outpatient (BNV) | payer MEDICARE, MEDICAID, SELFPAY | END 2024-07-11 02:09 | PROVIDERS: Admitting Provider Internal Medicine; Emergency Provider Emergency Medicine; PCP Family Medicine; Visit Provider Internal Medicine Cardiovascular Disease | DX: R07.9 Chest pain, unspecified (principal) | CPT/HCPCS: 93010 ==

== ENCOUNTER 2024-07-14 17:35 | Emergency (ER) | payer MEDICARE, MEDICAID, SELFPAY ==
[2024-07-14 17:39] VITALS: PULSE 88; O2SAT 90
[2024-07-14 17:41] VITALS: BMI 40.7
[2024-07-14 17:55] VITALS: BP 120/51; PULSE 84; RESP 18; O2SAT 94
[2024-07-14 17:55] LABS: Glucose, Whole Blood 437 mg/dL (60-115)
[2024-07-14 18:00] VITALS: BP 117/47; PULSE 80; RESP 16; TEMP 36.9; O2SAT 97
--- NOTE | 2024-07-14 18:01 | ED.GENADULT ---
HPI - General Adult General Chief complaint: General Medical Stated complaint: hyperglycemia *444 Time Seen by Provider: 07/14/24 17:39 History of Present Illness HPI narrative: Patient is a 73-year-old female with a history of diabetes. Baseline is on insulin. Presented today with having elevated sugar. Patient was noted to have a sugar of over 400 after dinner. Patient was supposed to get insulin. The visiting aide noted the high sugar elected to send the patient to the ED for further evaluation. The patient has no chest pain or shortness breath no dizziness no nausea no vomiting nothing changed. She had baseline on Lantus 70 units in the morning. She taken that. She took her morning and afternoon dose of insulin that is normally taken with meals. She did not take the evening dose of insulin after meal. There is no chest pain there is no diaphoresis has no nausea no vomiting. Related Data Home Medications ?Medication ?Instructions ?Recorded ?Confirmed apixaban 5 mg tablet (Eliquis) 5 mg PO BID 01/23/21 07/06/24 aspirin 81 mg tablet,delayed 81 mg PO DAILY 10/24/21 07/06/24 release furosemide 40 mg tablet 80 mg PO DAILY 03/09/22 07/06/24 insulin lispro 100 unit/mL 1 sliding scale dose subcut TIDAC 10/23/22 07/06/24 subcutaneous pen (Humalog KwikPen (U-100) Insulin) acetaminophen 325 mg tablet 650 mg PO Q6H PRN Pain 01/27/23 07/06/24 fluticasone furoate 200 1 ea inhalation DAILY 01/27/23 07/06/24 mcg-vilanterol 25 mcg/dose inhalation powder (Breo Ellipta) gabapentin 300 mg capsule 300 mg PO TID 01/27/23 07/06/24 montelukast 10 mg tablet 10 mg PO BEDTIME 01/27/23 07/06/24 metoprolol succinate 50 mg 50 mg PO DAILY 10/26/23 07/06/24 tablet,extended release 24 hr albuterol sulfate 2.5 mg/3 mL 2.5 mg inhalation Q6H PRN 07/06/24 07/06/24 (0.083 %) solution for nebulization shortness of breath or wheezing insulin glargine 100 unit/mL (3 70 unit subcut DAILY 07/06/24 07/06/24 mL) subcutaneous pen (Lantus Solostar U-100 Insulin) lisinopril 10 mg tablet 10 mg PO DAILY 07/06/24 07/06/24 losartan 50 mg tablet 50 mg PO DAILY 07/06/24 07/06/24 metformin 850 mg tablet 850 mg PO DAILY 07/06/24 07/06/24 simvastatin 40 mg tablet 40 mg PO BEDTIME 07/06/24 07/06/24 Previous Rx's ?Medication ?Instructions ?Recorded albuterol sulfate 90 mcg/actuation 2 puff inhalation Q6H PRN 10/26/23 aerosol inhaler shortness of breath or wheezing #8.5 grams guaifenesin 200 mg/5 mL oral liquid 200 mg (5 mL) PO Q4H PRN cough 10/26/23 #118 mL docusate sodium 100 mg capsule 100 mg PO BID constipation #20 caps 06/28/24 (Colace) sennosides 8.6 mg tablet (senna) 8.6 mg PO BEDTIME PRN constipation 06/28/24 #30 tabs bisacodyl 10 mg rectal suppository 10 mg ID BEDTIME #30 ea 07/11/24 (Gentle Laxative (bisacodyl)) magnesium hydroxide 400 mg/5 mL 30 ml PO DAILY PRN Constipation 07/11/24 oral suspension (Milk of Magnesia) #3,780 mL polyethylene glycol 3350 17 gram 17 g PO BID #60 ea 07/11/24 oral powder packet Allergies Allergy/AdvReac Type Severity Reaction Status Date / Time silver sulfadiazine Allergy Unknown UNK Verified 07/14/24 17:42 [From SILVADENE] Review of Systems Review of Systems: No fever no chills no chest pain or shortness of breath Yes all other systems are reviewed and are negative [facility] Past Medical History Attestation statement: The following information was validated with the patient. Medical History Chronic hypoxemic respiratory failure Obstructive sleep apnea Hypotonic neurogenic bladder Chronic heart failure with preserved ejection fraction (HFpEF) Diarrhea Bacteriuria Chronic UTI UTI (urinary tract infection) Non-rheumatic aortic stenosis Aortic stenosis Paroxysmal atrial fibrillation H/O: CVA (cerebrovascular accident) Glaucoma Severe sepsis Obesity Osteoarthritis COPD (chronic obstructive pulmonary disease) Chronic UTI Chronic indwelling Molina catheter Diabetes Hypertension Congestive heart failure Surgical History H/O enucleation of left eyeball H/O adenoidectomy History of tonsillectomy Family History Family History Father No problems noted. Mother No problems noted. Social History Social History Household Members: None Housing: House Do you presently have visiting nurse or other home services: Yes Unable to assess alcohol history related to: Unknown Alcohol intake: former Patient Tobacco Use Status: Never used Tobacco Second Hand Smoke Exposure: No Advance Directives: Yes Advance Directives on File: Yes Advance Directives Date on File: 07/09/20 Do you have a plan to hurt others: No Plan service: No Current occupational status: disabled Physical Exam ED Vital Signs: Vital Signs - 24 hr 07/14/24 17:55 07/14/24 18:00 07/14/24 20:00 Temperature 98.5 F Pulse Rate 84 80 79 Respiratory Rate 18 16 20 Blood Pressure 120/51 L 117/47 L 121/76 Pulse Oximetry 94 97 99 Oxygen Delivery Method Nasal Cannula Nasal Cannula Nasal Cannula Oxygen Flow Rate 2 2 2 BMI result Body Mass Index 40.7 Appearance: Alert. Oriented X3. No acute distress. Eyes: Pupils equal, round and reactive to light. ENT: Pharynx normal. Neck: Normal inspection. Neck supple. No lymph nodes noted. No crepitus CVS: Normal heart rate and rhythm. Pulses normal. Normal S1 and S2 Respiratory: No respiratory distress. Breath sounds normal. No Wheezing. No rales Abdomen: Soft and nontender. No rigidity. No distention. good BS x4 Skin: Skin warm and dry. Normal skin color. Normal skin turgor. Extremities: No lower extremity edema. Neurovascular intact to all extremities. No Lacerations. No Rash Neuro: Oriented X 3. No motor deficit. No sensory deficit. Moving all extermities. No slurred speech Medications Administered Discontinued Medications Generic Name Dose Route Start Last Admin Trade Name Freq PRN Reason Stop Dose Admin Sodium Chloride 1,000 mls @ 999 mls/hr 07/14/24 18:00 07/14/24 19:37 Ns IV 07/14/24 19:00 Infused .Q1H1M MARJAN Infusion Insulin Human Regular 6 unit 07/14/24 17:59 07/14/24 18:35 Insulin Regular, Human 100 Unit/Ml 10 Ml Vial IVPUSH 07/14/24 18:00 6 unit ONCE ONE Administration Medical Decision Making Medical Decision Making [facility] Narrative: Patient given insulin in the emergency department. Baseline is on 2 L of oxygen no hypoxia patient's sugar was in the 430 range. Her electrolytes showed no evidence of DKA her pH was normal. Glucose was 432. Given insulin monitor carefully. Sugars down to 328 initially another further hour of monitoring brought down to 305. Patient has no symptoms well-appearing. Will discharge patient home. Currently in stable condition. Differential Diagnosis Differential Diagnoses: The differential diagnosis associated with the presentation includes Hyperglycemia, DKA, infection Admission/Observation Consideration of admission/observation: Escalation of care including admission/observation considered Lab Data [facility] Lab Attestation statement: I reviewed the patient's lab results. 07/14/24 18:29 07/14/24 18:29 Labs: Lab Results 07/14/24 07/14/24 07/14/24 Range/Units 17:44 18:29 18:35 WBC 7.4 (4.8-10.8) X10*3/uL RBC 5.31 (4.20-5.50) X10*6/uL Hgb 13.8 (12.0-16.0) g/dl Hct 43.5 (37.0-47.0) % MCV 81.9 (80.0-98.0) fL MCH 26.0 L (27.0-33.0) pg MCHC 31.7 (31.0-35.0) g/dl RDW 17.4 H (11.0-16.0) % Plt Count 174 (160-400) X10*3/uL MPV 11.1 (9.4-12.3) fL Immature Gran % (Auto) 0.3 (0.0-0.4) % Neut % (Auto) 71.4 (45-73) % Lymph % (Auto) 15.3 L (20-40) % [place] % (Auto) 8.9 (2-11) % Eos % (Auto) 3.8 (0-4) % Baso % (Auto) 0.3 (0-2) % Lymph # (Auto) 1.1 L (1.2-4.9) X10*3/uL [place] # (Auto) 0.7 (0.1-1.2) X10*3/uL Eos # (Auto) 0.3 (0.0-0.4) X10*3/uL Baso # (Auto) 0.0 (0.0-0.2) X10*3/uL Abs Immat Gran (auto) 0.02 (0.00-0.03) X10*3/uL Absolute Neuts (auto) 5.3 (2.0-8.3) x10*3/uL Absolute Nucleated RBC 0.000 (0.0-0.012) X10*3/uL Nucleated RBC % (auto) 0.0 (0.0-0.2) /100WBC VBG pH 7.48 H (7.32-7.43) VBG pCO2 57 mmHg VBG pO2 33 mmHg VBG HCO3 43 H (22-26) mmol/L VBG O2 Saturation 49.0 % VBG Base Excess 16.9 mmol/L Sodium 137 (135-145) mmol/L Potassium 4.4 D (3.3-5.1) mmol/L Chloride 92 L (96-108) mmol/L Carbon Dioxide 34 H (22-29) mmol/L Anion Gap 15 (12-20) BUN 17 H (9-16) mg/dL Creatinine 0.81 (0.5-1.4) mg/dL Estim Creat Clear Calc 80.5 Estimated GFR > 60 POC Glucose 437 H* (60-115) mg/dL Random Glucose 458 H* (60-115) mg/dL Calcium 9.0 (8.4-10.2) mg/dL Beta-Hydroxybutyrate 0.13 (0.02-0.27) mmol/L 07/14/24 07/14/24 Range/Units 19:31 20:43 WBC (4.8-10.8) X10*3/uL RBC (4.20-5.50) X10*6/uL Hgb (12.0-16.0) g/dl Hct (37.0-47.0) % MCV (80.0-98.0) fL MCH (27.0-33.0) pg MCHC (31.0-35.0) g/dl RDW (11.0-16.0) % Plt Count (160-400) X10*3/uL MPV (9.4-12.3) fL Immature Gran % (Auto) (0.0-0.4) % Neut % (Auto) (45-73) % Lymph % (Auto) (20-40) % [place] % (Auto) (2-11) % Eos % (Auto) (0-4) % Baso % (Auto) (0-2) % Lymph # (Auto) (1.2-4.9) X10*3/uL [place] # (Auto) (0.1-1.2) X10*3/uL Eos # (Auto) (0.0-0.4) X10*3/uL Baso # (Auto) (0.0-0.2) X10*3/uL Abs Immat Gran (auto) (0.00-0.03) X10*3/uL Absolute Neuts (auto) (2.0-8.3) x10*3/uL Absolute Nucleated RBC (0.0-0.012) X10*3/uL Nucleated RBC % (auto) (0.0-0.2) /100WBC VBG pH (7.32-7.43) VBG pCO2 mmHg VBG pO2 mmHg VBG HCO3 (22-26) mmol/L VBG O2 Saturation % VBG Base Excess mmol/L Sodium (135-145) mmol/L Potassium (3.3-5.1) mmol/L Chloride (96-108) mmol/L Carbon Dioxide (22-29) mmol/L Anion Gap (12-20) BUN (9-16) mg/dL Creatinine (0.5-1.4) mg/dL Estim Creat Clear Calc Estimated GFR POC Glucose 328 H 305 H (60-115) mg/dL Random Glucose (60-115) mg/dL Calcium (8.4-10.2) mg/dL Beta-Hydroxybutyrate (0.02-0.27) mmol/L Independent Historian Clinical information obtained from an independent historian. History obtained from or confirmed by: Other (Patient's aide) External Record Review External record reviewed: Inpatient record Chronic Conditions Patient?s care impacted by: Diabetes Social Determinants Patient?s care significantly limited by Social Determinants of Health including: Problems related to primary support group Discharge Plan Discharge Clinical Impression: Diabetes Patient Disposition: Home, Self-Care Instructions: Diabetes and Nutrition (ED), Diabetic Hyperglycemia (ED) Prescriptions: No Action Eliquis 5 mg tablet 5 mg PO BID aspirin 81 mg Tablet,Delayed Release (Dr/Ec) 81 mg PO DAILY furosemide 40 mg tablet 80 mg PO DAILY insulin lispro [Humalog KwikPen Insulin] 100 unit/mL insulin pen 1 sliding scale dose subcut TIDAC Protocol: Insulin Correction Scale Less than or equal to 110 ---- Give (units): 0 111 to 150 Give (units): 0 151 to 200 Give (units): 2 201 to 250 Give (units): 4 251 to 300 Give (units): 6 301 to 350 Give (units): 8 Greater than 350 Give (units): 10 Call MD if Blood Glucose > : 350 losartan 50 mg tablet 50 mg PO DAILY metformin 850 mg tablet 850 mg PO DAILY simvastatin 40 mg tablet 40 mg PO BEDTIME lisinopril 10 mg tablet 10 mg PO DAILY insulin glargine [Lantus Solostar U-100 Insulin] 100 unit/mL (3 mL) Insulin Pen 70 unit SUBCUT DAILY albuterol sulfate 2.5 mg /3 mL (0.083 %) solution for nebulization 2.5 mg inhalation Q6H PRN (Reason: shortness of breath or wheezing) polyethylene glycol 3350 17 gram Powder In Packet 17 g PO BID Qty: 60 0RF magnesium hydroxide [Milk of Magnesia] 400 mg/5 mL Suspension 30 ml PO DAILY PRN (Reason: Constipation) Qty: 3780 0RF bisacodyl [Gentle Laxative (bisacodyl)] 10 mg Suppository 10 mg ID BEDTIME Qty: 30 0RF acetaminophen 325 mg tablet 650 mg PO Q6H PRN (Reason: Pain) gabapentin 300 mg capsule 300 mg PO TID montelukast 10 mg tablet 10 mg PO BEDTIME fluticasone furoate-vilanterol [Breo Ellipta] 200-25 mcg/dose blister with device 1 ea INHALATION DAILY albuterol sulfate 90 mcg/actuation HFA aerosol inhaler 2 puff inhalation Q6H PRN (Reason: shortness of breath or wheezing) Qty: 8.5 0RF guaifenesin 200 mg/5 mL liquid 200 mg PO Q4H PRN (Reason: cough) Qty: 118 0RF Patient Comments: patient's daughter states patient does not take metoprolol succinate 50 mg tablet extended release 24 hr 50 mg PO DAILY docusate sodium [Colace] 100 mg capsule 100 mg PO BID Qty: 20 0RF sennosides [senna] 8.6 mg tablet 8.6 mg PO BEDTIME PRN (Reason: constipation) Qty: 30 0RF Referrals: Cherise Hamm MD [Primary Care Provider] - 07/16/24 Print Language: Albanian
--- OUTSIDE RECORDS SUMMARY | 2024-07-14 18:10 | XMS_ITS | Continuity of Care Document ---
Author Organization [facility] ter Address [address] [place] [id number]- Support Name Relationship Address Phone KIA, VIDHYA Personal Relationship Unknown Unav ailable KIA, VIDHYA Personal Relationship Unknown Unav ailable KIA, VIDHYA Personal Relationship Unknown Unav ailable KIA, VIDHYA Personal Relationship Unknown Unav ailable KIA, VIDHYA Personal Relationship Unknown Unav ailable KIA, VIDHYA Personal Relationship Unknown Unav ailable KIA, VIDHYA Personal Relationship Unknown Unav ailable KIA, VIDHYA Personal Relationship Unknown Unav ailable KIA, VIDHYA Personal Relationship Unknown Unav ailable YOUNG, GEETHA Other Unknown Unavailable LAL, TONY unrelated friend Unknown Unavailable KIA, VIDHYA Personal Relationship Unknown Unav ailable KIA, VIDHYA Personal Relationship Unknown Unav ailable KIA, VIDHYA Personal Relationship Unknown Unav ailable KIA, VIDHYA Personal Relationship Unknown Unav ailable KIA, VIDHYA Personal Relationship Unknown Unav ailable KIA, VIDHYA Personal Relationship Unknown Unav ailable KIA, VIDHYA Personal Relationship Unknown Unav ailable KIA, VIDHYA Personal Relationship Unknown Unav ailable SUTURE WINDER HAND, NATHEN Other Unknown Unavailable KIA, STEPHANI child Unknown Unavailable Care Team Providers Care Marketing Intern Name Role Phone Cherise Hamm MD Primary Care Physician [place] [facility] [place] - 06/27/[address] [address]- Encounter Diagnosis Abdominal pain(Final) - 06/27/24 Constipation(Final) - 06/27/24 Hyperglycemia(Final) - 06/27/24 Discharge Disposition: A-D/C Home Attending Physician: Dorothea Olvera DO Admitting Physician: Dorothea Olvera DO Referring Physician: Not on Staff, Referring MD Encounter Type: Disch ES Allergies, Adverse Reactions, Alerts Substance Criticality Severity Reaction Reaction Severity Status Silvadene skin alicea unsure Active Immunizations Given and Recorded Vaccine Date Status Refusal Reason influenza virus vaccine, inactivated 03/30/24 Give n influenza virus vaccine, inactivated 07/31/22 Give n [...] PRN, Maintenance, as needed for fever/pain, 02/11/24 7:25:00 PM EDT, Partial fill upon patient request if the prescription is for a schedule II opioid drug. Start Date: 02/11/24 Status: Ordered Repeat number: 1 albuterol 90 mcg/inh inhalation powder 2 puffs, Inhalation, Every 6 hours, PRN Wheezing/Shortness of Breath, # 1 each, 0 Refills, Maintenance, 02/20/24 12:24:00 PM EDT, Powder, [facility]/pharmacy #[id number], Partial fill upon patient request if the prescription is for a schedule II opioid drug., 2 puffs Inhalation Every 6 hours,x30 days,PRN:Wheezing/Shortness of Breath, 168, cm, 02/20/24 10:42:00 EDT, Height, 120, kg, 02/17/24 5:41:00 EDT, Dry Weight Start Date: 02/20/24 Stop Date: 03/21/24 Status: Ordered Quantity: 1.0 Unit: each Repeat number: 1 albuterol-ipratropium 3 mg-0.5 mg/3 ml inhalation solution 3 mL, Inhalation, 4 times a day, PRN Wheezing/Shortness of Breath, # 1,080 mL, 0 Refills, Maintenance, 03/31/24 10:49:00 AM EDT, Inhalation Solution, [facility], Partial fill upon patient request if the prescription is for a schedule II opioid drug., 3 mL Inhalation 4 times a day,PRN:Wheezing/Shortness of Breath, 167.64, cm, 03/31/24 4:53:00 EDT, Height, 138.2, kg, 03/29/24 2:54:00 EDT, Dry Weight Start Date: 03/31/24 Status: Ordered Quantity: 1080.0 Unit: mL Repeat number: 1 Artificial Tears preserved solution 2 drops, Eyes, Both, 2 times a day, PRN for dry eyes, # 15 mL, 0 Refills, Maintenance, 02/22/24 11:47:00 AM EDT, Solution, Partial fill upon patient request if the prescription is for a schedule II opioid drug. Start Date: 02/22/24 Status: Ordered Quantity: 15.0 Unit: mL Repeat number: 1 aspirin 81 mg oral tablet, chewable 81 mg, 1, tablet, By Mouth, Daily, Maintenance, 02/11/24 7:25:00 PM EDT, Partial fill upon patient request if the prescription is for a schedule II opioid drug. Start Date: 02/11/24 Status: Ordered Repeat number: 1 benzonatate 200 mg oral capsule = 200 mg, By Mouth, 3 times a day, PRN Cough, 0 Refills, Maintenance, 02/13/24 1:04:00 PM EDT, Capsule, Partial fill upon patient request if the prescription is for a schedule II opioid drug. Start Date: 02/13/24 Stop Date: 02/18/24 Status: Ordered Repeat number: 1 Breo Ellipta 200 mcg-25 mcg/inh inhalation powder 1 puffs, Inhalation, Daily, # 30 each, 3 Refills, Maintenance, 11/01/22 11:09:00 AM EDT, Powder, [facility]/pharmacy #[id number], Partial fill upon patient request if the prescription is for a schedule II opioid drug., 1 puffs Inhalation Daily, 167.64, cm, 11/01/22 7:13:00 EDT, Height, 117.7, kg, 10/27/22 11:54:00 EDT, Dry Weight Start Date: 11/01/22 Status: Ordered Quantity: 30.0 Unit: each Repeat number: 4 Dulcolax 10 mg rectal suppository 1 supp = 10 mg, Rectally, Daily, PRN as needed for constipation, Maintenance, 02/11/24 7:26:00 PM EDT, Suppository, Partial fill upon patient request if the prescription is for a schedule II opioid drug. Start Date: 02/11/24 Status: Ordered Repeat number: 1 Eliquis 5 mg oral tablet 1 tablet = 5 mg, By Mouth, 2 times a day, 5 Refills, Maintenance, 03/16/22 1:18:00 AM EDT, Tablet, Partial fill upon patient request if the prescription is for a schedule II opioid drug. Start Date: 03/16/22 Status: Ordered Repeat number: 1 Fleet Enema 19 gm-7 gm rectal enema 1 each, Rectally, Once, PRN for constipation, Maintenance, 02/11/24 7:28:00 PM EDT, Enema, Partial fill upon patient request if the prescription is for a schedule II opioid drug. Start Date: 02/11/24 Status: Ordered Repeat number: 1 Flonase Allergy Relief 50 mcg/inh nasal spray 1 sprays = 50 mcg, Nares, Both, 2 times a day, Maintenance, 02/06/24 10:16:00 AM EDT, Partial fill upon patient request if the prescription is for a schedule II opioid drug. Start Date: 02/06/24 Status: Ordered Repeat number: 1 gabapentin 300 mg oral capsule 300 mg, 1, capsule, By Mouth, 3 times a day, Refills 0, Maintenance, 03/16/22 1:19:00 AM EDT, Partialfill upon patient request if the prescription is for a schedule II opioid drug. Start Date: 03/16/22 Status: Ordered Repeat number: 1 guaiFENesin 100 mg/5 mL oral liquid 10 mL = 200 mg, By Mouth, 4 times a day, PRN for cough, Maintenance, 02/11/24 7:29:00 PM EDT, Liquid,Partial fill upon patient request if the prescription is for a schedule II opioid drug. Start Date: 02/11/24 Status: Ordered Repeat number: 1 Humalog Kwik Pen 100 units/mL subcutaneous injection 3-11 units, Subcutaneous Injection, 3 times a day before meals, As directed per sliding scale 150-199=3 units 200-249=5 units 250-299=7 units 300-349= 9 units 350-400= 11 units, 0 Refills, Maintenance, 03/29/22 7:44:00 PM EDT, Partial fill upon patient request if the prescription is for a schedule II opioid drug. Start Date: 03/29/22 Status: Ordered Repeat number: 1 Lant Solostar Pen 100 units/mL subcutaneous solution = 60 units, Subcutaneous Injection, Daily at bedtime Start Date: 12/12/22 Status: Ordered Repeat number: 1 Lasix 80 mg oral tablet 80 mg, 1, tablet, By Mouth, Daily, # 30 tablet, Refills 0, Tot. Refills 0, Maintenance, 05/09/22 3:58:00 PM EDT, Do Not Route, Partial fill upon patient request if the prescription is for a schedule II opioid drug. Start Date: 05/09/22 Stop Date: 06/08/22 Status: Ordered Quantity: 30.0 Unit: tablet Repeat number: 1 lisinopril 5 mg oral tablet 5 mg, 1, tablet, By Mouth, Daily, Maintenance, 02/06/24 10:10:00 AM EDT, Partial fill upon patient request if the prescription is for a schedule II opioid drug. Start Date: 02/06/24 Status: Ordered Repeat number: 1 metFORMIN 850 mg oral tablet 1 tablet = 850 mg, By Mouth, Daily, 0 Refills, Maintenance, 03/16/22 1:18:00 AM EDT, Tablet, Partial fill upon patient request if the prescription is for a schedule II opioid drug. Start Date: 03/16/22 Status: Ordered Repeat number: 1 Milk of Magnesia 8% oral suspension 30 mL = 2.4 Gm, By Mouth, Daily, PRN for constipation, Maintenance, 02/11/24 7:32:00 PM EDT, Suspension, Partial fill upon patient request if the prescription is for a schedule II opioid drug. Start Date: 02/11/24 Status: Ordered Repeat number: 1 Narcan 4 mg/0.1 mL nasal spray 1 sprays = 4 mg, Once, PRN as needed, Maintenance, 02/11/24 7:33:00 PM EDT, Partial fill upon patientrequest if the prescription is for a schedule II opioid drug. Start Date: 02/11/24 Status: Ordered Repeat number: 1 Nystop 304921 u/gm powder 1 applicator, Topically, 2 times a day, Maintenance, 02/06/24 10:17:00 AM EDT, Partial fill upon patient request if the prescription is for a schedule II opioid drug. Start Date: 02/06/24 Status: Ordered Repeat number: 1 oxybutynin 5 mg/24 hours oral tablet, extended release 1 tablet = 5 mg, By Mouth, Daily at bedtime Start Date: 12/12/22 Status: Ordered Repeat number: 1 Oxygen 2 L, Nares, Both, Daily, Maintenance, 02/06/24 10:13:00 AM EDT, Partial fill upon patient request ifthe prescription is for a schedule II opioid drug. Start Date: 02/06/24 Status: Ordered Repeat number: 1 Pepcid 20 mg oral tablet 1 tablet = 20 mg, By Mouth, Daily, Maintenance, 02/06/24 10:13:00 AM EDT, Partial fill upon patient request if the prescription is for a schedule II opioid drug. Start Date: 02/06/24 Status: Ordered Repeat number: 1 Senna 8.6 mg oral tablet 8.6 mg, 1, tablet, By Mouth, Daily at bedtime, PRN, # 25 tablet, Refills 0, Tot. Refills 0, Acute, as needed for constipation, 07/02/24 7:30:00 AM EST, 06/27/24 6:37:00 AM EST, Route to Pharmacy Electronically, [facility]/pharmacy #[id number], Partial fill upon patient request if the prescription is for a schedule II opioid drug., 167.64, cm, 04/01/24 10:21:00 EDT, Height, 138.2, kg, 03/29/24 2:54:00 EDT, Dry Weight Start Date: 06/27/24 Stop Date: 07/02/24 Status: Ordered Quantity: 25.0 Unit: tablet Repeat number: 1 simvastatin 40 mg oral tablet 40 mg, 1, tablet, By Mouth, Daily at bedtime, Refills 0, Maintenance, 03/16/22 1:18:00 AM EDT, Partial fill upon patient request if the prescription is for a schedule II opioid drug. Start Date: 03/16/22 Status: Ordered Repeat number: 1 Singulair 10 mg oral tablet 10 mg, 1, tablet, By Mouth, Daily in PM, # 30 tablet, Refills 1, Tot. Refills 1, Maintenance, 11/01/22 11:29:00 AM EDT, Route to Pharmacy Electronically, [facility]/pharmacy #[id number], Partial fill upon patient request if the prescription is for a schedule II opioid drug., 167.64, cm, 11/01/22 7:13:00 EDT, Height, 117.7, kg, 10/27/22 11:54:00 EDT, Dry Weight Start Date: 11/01/22 Status: Ordered Quantity: 30.0 Unit: tablet Repeat number: 2 Toprol XL 50 mg oral tablet, extended release 50 mg, 1, tablet, By Mouth, Daily, Maintenance, 02/06/24 10:05:00 AM EDT, Partial fill upon patient request if the prescription is for a schedule II opioid drug. Start Date: 02/06/24 Status: Ordered Repeat number: 1 Trulicity Pen 0.75 mg/0.5 mL subcutaneous solution 0.5 mL = 0.75 mg, Subcutaneous Injection, Every , 0 Refills, Maintenance, 10/26/22 8:09:00 PM EDT, Solution, Partial fill upon patient request if the prescription is for a schedule II opioid drug. Start Date: 10/26/22 Status: Ordered Repeat number: 1 Tums 500 mg oral tablet, chewable 1,000 mg, 2, tablet, Chew, Every 4 hours, PRN, Maintenance, for indigestion, 02/11/24 7:36:00 PM EDT,Partial fill upon patient request if the prescription is for a schedule II opioid drug. Start Date: 02/11/24 Status: Ordered Repeat number: 1 Vitamin D2 50,000 intl units (1.25 mg) oral capsule 1 capsule = 50,000 International_Units, By Mouth, Every , 0 Refills, Maintenance, 03/29/22 7:45:00 PM EDT, Partial fill upon patient request if the prescription is for a schedule II opioid drug. Start Date: 03/29/22 Status: Ordered Repeat number: 1 Problem List Condition Confirmation Course Effective Dates Status H ealth Status Informant Cataract Confirmed Active Chronic diastolic congestive heart failure Confirmed Active Chronic obstructive lung disease Confirmed Active COVID-19 1 Confirmed 5/16/22 Active Wheelchair dependent Confirmed Active Hyperlipidemia Confirmed [...] Exam Date Time Procedure Performing Provider Status 06/27/24 12:[address] Abd/Pelvis W/ IV Contrast Only Jenelle Contreras; Auth (Verified) Notes: (CT Abd/Pelvis W/ IV Contrast Only) Reason For Exam: Pain RESULT: CT Abd/Pelvis W/ IV Contrast Only CT Abd/Pelvis W/ IV Contrast Only Hx of Present Illness: Abdominal pain, indwelling rai, believes she is constipated due to rehab facility food; TECHNIQUE: Spiral CT through the abdomen and pelvis with IV contrast formatted in 3 planes. 100 cc of Isovue 300 was administered intravenously. This study was performed without oral contrast. Weight-based protocol using automatic tube modulation was used to optimize exposure parameters. CTDIvol Body: 35.70 mGy, DLP Body: 1885 mGy*cm. 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 Visualized Chest: Unchanged chronic scarring/atelectasis in the posterior basilar segments of the lower lobes. No pleural effusion. Severe mitral annular calcification. The heart is normal in size. No pericardial effusion. Diaphragm: Normal. Liver: Stable 3 cm medial right lobe liver lesion. Otherwise normal. Gallbladder: Normal. Bile ducts: Normal. Spleen: Normal. Pancreas: Moderately atrophic parenchyma. Adrenal glands: Diffuse thickening of the medial limb left adrenal gland unchanged. No suspicious lesions. Normal right adrenal gland. Kidneys and ureters: Normal. Bladder: Empty with Rai catheter in place. Likely increase in chronic wall thickening. Reproductive organs: Unchanged 7.1 cm fundal uterine fibroid. No adnexal lesions. Stomach, small bowel, and large bowel: Severely redundant colon. Moderate stool retention. No inflammation, obstruction or mass. Appendix: Not seen, but no evidence of appendicitis. Peritoneum and retroperitoneum: No ascites or pneumoperitoneum. No omental or mesenteric lesions. Lymph nodes: No enlarged lymph nodes. Blood vessels: Severe atherosclerotic vascular calcification but no aneurysm. No evidence of venousthrombosis. Abdominal and pelvic wall: Rectus diastases. Bones: Severe degenerative changes in the hip joints. Moderate multilevel degenerative changes in the lumbar spine. IMPRESSION: 1. Increased chronic wall thickening of the urinary bladder suspicious for UTI. 2. Very redundant colon with moderate stool retention. I have personally reviewed the images and I agree with this report. WSN: [id number] Ordering Physician: Yisel Yeboah Dictated By: Selam Nguyen MD Dictated Date/Time: 06/27/24 8:07 am Reviewed By: Eduardo Gracia MD Signed By: Eduardo Gracia MD Signed Date/Time: 06/27/24 8:12 am Transcribed By: SOLOMON Transcribed Date/Time: 06/27/24 1:15 am Vital Signs Most recent to oldest [Reference Range]: 1 2 3 Oxygen Saturation [94-100 %] 100 % (06/27/24 7:37 AM) 96 % (06/27/24 6:41 AM) 96 % (06/27/24 3:43 AM) Pulse Rate [55-90 bpm] 72 bpm (06/27/24 7:37 AM) 70 bpm (06/27/24 6:41 AM) 76 bpm (06/27/24 3:43 AM) Blood Pressure [90-138/55-84 mm Hg] 134/67mm Hg (06/27/24 7:37 AM) 103/66mm Hg (06/27/24 6:41 AM) 131/70mm Hg (06/27/24 3:43 AM) Respiratory Rate [16-30 br/min] 18 br/min (06/27/24 7:37 AM) 16 br/min (06/27/24 6:41 AM) 16 br/min (06/27/24 3:43 AM) Temperature [96.8-100.4 DegF] 98.0 DegF (06/27/24 3:43 AM) 98.2 DegF (06/26/24 11:42 PM) Liters per Minute 2 L/min (06/27/24 7:37 AM) 2 L/min (06/27/24 6:41 AM) 2 L/min (06/27/24 3:43 AM) Mode of Delivery (Oxygen) Nasal cannula (06/27/24 7:37 AM) Nasal cannula (06/27/24 6:41 AM) Nasal cannula (06/27/24 3:43 AM) Blood pressure sites Arm, left (06/27/24 7:37 AM) Temperature Route Oral (06/27/24 3:43 AM) Oral (06/26/24 11:42 PM) Social History Social History Type Response Smoking Status Former smoker; Tobac co user in household: No entered on: 01/17/17 Sex Sex Representation Female (finding) EKG study * Event Display: ECG 12-Lead Authored Date: [id number] Please click on pdf link to open report * Event Display: ECG 12-Lead Authored Date: [id number] Ventricular Rate: 79 BPM Atrial Rate: 79 BPM P-R Interval: 198 ms QRS Duration: 102 ms Q-T Interval: 386 ms QTC Calculation(Bazett): 442 ms P Newton: 43 degrees R Newton: -25 degrees T Newton: 58 degrees Normal sinus rhythm Minimal voltage criteria for LVH, may be normal variant ( [place] product ) Borderline ECG When compared with ECG of 28-Mar-2024 15:58, No significant change was found Confirmed by LOREE ARIAS ([id number]) on 06/27/2024 8:34:19 AM [place]: LOREE ARIAS Note * Yisel Yeboah DO: PERFORM Event Display: Patient Education Leaflets Authored Date: [id number] Unknown Causes of Abdominal Pain (Adult) ?? [id number] Unknown Causes of Abdominal Pain (Adult) The exact cause of your belly (abdominal) [...] to watch for any new symptoms, problems,??or if your condition gets worse. Over the next few days, the abdominal [...] relieve pain. ??? Something warm on your belly, such as a heating pad, may help, but be careful not to [...] Don???t have??whole-grain foods, whole fruits and vegetables,meats, seeds, and nuts, fried or fatty foods, dairy, alcohol and spicy foods until your symptoms goaway. ?? Follow-up care Follow up with your healthcare provider, or as advised, if your pain does not begin to improve in the next 24 hours. ?? Call 911 Call?? 911 if any of these occur: ??? Trouble breathing ??? Confusion ??? Fainting or loss of consciousness ??? Rapid heart rate ??? Seizure ?? When to get medical advice Call your healthcare provider right away if any of these occur: ??? Pain gets worse or moves to theright lower abdomen ??? Vomiting or diarrhea that is new or gets worse ??? Swelling of the abdomen ??? Unable to pass stool for more than??3 days ??? Fever of 100.4??F (38??C) or higher, or as directed by your healthcare provider ??? Blood in vomit or bowel movements (dark red or black color) ??? Ye llow color of eyes and skin (jaundice) ??? Weakness, dizziness ??? Chest, arm, back, neck, or jaw pain ??? Can't keep down medicines, liquids, or water because of too much vomiting ??? If you have a vagina: unexpected vaginal bleeding or missed period ?? Last Reviewed Date: 2024 ?? 9438-0231 [employer] All rights reserved. This information is not intended as a substitute for professional medical care. Always follow your healthcare professional's instructions. ?? * Yisel Yeboah DO: PERFORM Event Display: Patient Education Leaflets Authored Date: [id number] Constipation (Adult) ?? [id number] Constipation (Adult) Constipation means that you have bowel movements that are less frequent than usual. Stools often become very hard and difficult to pass. Constipation is very common. At some point in life, it affects almost everyone. Since everyone's bowel habits are different, what is constipation to one person may not be to another. Your healthcare provider may do tests to diagnose constipation. It depends on what??they??find when evaluating you. Symptoms of constipation include: ??? Abdominal pain ??? Bloating ??? Vomiting ??? Painful bowel movements ??? Itching, swelling, bleeding, or pain around the anus Causes Constipation can have many causes. These include: ??? Diet low in fiber ??? Too much dairy ??? Not drinking enough liquids ??? Lack of exercise or physical activity (especially true for older adults)??? Changes in lifestyle or daily routine, including , aging, work, and travel ??? Frequent use or misuse of laxatives ??? Ignoring the urge to have a bowel movement or delaying it until later ??? Medicines, such as certain prescription pain medicines, iron supplements, antacids, certain antidepressants, and calcium supplements ??? Diseases like irritable bowel syndrome, bowel obstructions, stroke, diabetes, thyroid disease, Parkinson disease, hemorrhoids, and colon cancer ?? Complications Possible complications of constipation can include: ??? Hemorrhoids ??? Rectal bleeding from hemorrhoids or anal fissures??(skin tears) ??? Hernias ??? Chronic constipation ??? Fecal impaction, a severe form of constipation in which a large amount of hard stool is in your rectum that you can't pass??? Bowel obstruction or perforation ?? Home care All treatment should be done after talking with your healthcare provider. This is especially true if you have another medical problem, are taking prescription medicines, or are an older adult. Treatment most often involves lifestyle changes. You may also need medicines. Your healthcare provider will tell you which will work best for you. Follow the advice below to help avoid this problem in the future. ?? Lifestyle changes These lifestyle changes can help prevent constipation: ??? Diet. Eat a high- fiber diet, with fresh fruit and vegetables, and reduce dairy intake, meats, and processed foods ??? Fluids. It's importantto get enough fluids each day. Drink plenty of water when you eat more fiber. If you are on diet that limits the amount of fluid you can have, talk about this with your healthcare provider. ??? Regular exercise. Check with your healthcare provider first. ?? Medicines Take any medicines as directed. Some laxatives are safe to use only every now and then. Others can be taken on a regular basis. While laxatives don't cause bowel dependence, they are treating the symptoms. So your constipation may return if you don't make other changes. Talk with your healthcare provider or pharmacist if you have questions. Prescription pain medicines can cause constipation. If you are taking this kind of medicine, ask your healthcare provider if you should also take a stool softener. Medicines you may take to treat constipation include: ??? Fiber supplements ??? Stool softeners ???Laxatives ??? Enemas ??? Rectal suppositories ?? Follow-up care Follow up with your healthcare provider if symptoms don't get better in the next few days. You may need to have more tests or see a specialist. ?? Call 911 Call 911 if any of these occur: ??? Trouble breathing ??? Stiff, rigid abdomen that is severely painful to touch ??? Large amount of blood in the stool ??? Confusion ??? Fainting or loss of consciousness ??? Rapid heart rate ??? Chest pain ?? When to seek medical advice Call your healthcare provider right away if any of these occur: ??? Fever of 100.4??F (38??C) or higher, or as directed by your healthcare provider ??? Failure to resume normal bowel movements ??? Pain in your abdomen or back gets worse ??? Nausea or vomiting ??? Swelling in your abdomen ??? Small amount of blood in the stool ??? Black, tarry stool ??? Involuntary weight loss ??? Weakness ?? Last Reviewed Date: 2021 ?? 3590-0820 [employer] All rights reserved. This information is not intended as a substitute for professional medical care. Always follow your healthcare professional's instructions. ?? Patient Care team information Care Team Personnel Name: Esha Whitaker RN Position: [facility] RN Member Role: Primary Care Nurse Name: Tala Curiel LPN Position: [facility] RN Member Role: Primary Care Nurse Name: Tk Iqbal RN Position: [facility] SN RN Member Role: Primary Care Nurse Name: Jovanny Stuart RN Position: S RN Member Role: Primary Care Nurse Name: Delaney De Los Santos RN Position: [facility] SN RN Member Role: Primary Care Nurse Name: Batool Sweet RN Position: S RN Member Role: Primary Care Nurse Name: Michelle Ricketts RN Position: S RN Member Role: Primary Care Nurse Name: Santa Quiñonez RN Position: [facility] RN Member Role: Primary Care Nurse Name: Cande Kennedy RN Position: [facility] RN Member Role: Primary Care Nurse Name: Tk Harrison RN Position: [facility] RN Member Role: Primary Care Nurse Name: Lainey Walker LPN Position: [facility] RN Member Role: Primary Care Nurse Name: Yanira Trevizo RN Position: [facility] RN Member Role: Primary Care Nurse Name: Batool Cervantes RN Position: [facility] [facility] RN Member Role: Primary Care Nurse Name: Fern Franklin LPN Position: [facility] RN Member Role: Primary Care Nurse Name: Vasyl Catherine RN Position: [facility] RN Member Role: Primary Care Nurse Name: Eve Masters RN Position: [facility] RN Member Role: Primary Care Nurse Name: Elizabeth Barrios RN Position: [facility] RN Member Role: Primary Care Nurse Name: Inessa Swan RN Position: [facility] RN Member Role: Primary Care Nurse Name: Jignesh Stoner RN Position: [facility] RN Member Role: Primary Care Nurse Name: Rosy Arriaza RN Position: [facility] RN Member Role: Primary Care Nurse Name: Demetri Watt RN Position: [facility] RN Member Role: Primary Care Nurse Name: Cherise Hamm MD Position: [facility] Outreach Member Role: PCP Address: [address] [place] [address] Telecom: Name: John Guaman RN Position: [facility] RN Member Role: Primary Care Nurse Name: Rocio Andrade RN Position: [facility] RN Member Role: Primary Care Nurse Name: Chari Mendez RN Position: [facility] RN Member Role: Primary Care Nurse Care Team Related Persons Name: STEPHANI ADAM Name: [employer], NATH[place] Insurance Providers Guarantor name: VIDHYA ADAM Health Plan Information #: 2 Payer: [facility] Member Number: [id number] Policy Number: NA Group Number: NA Health Plan Information #: 1 Payer: MEDICARE PART B OUTPT Member Number: [id number] Policy Number: NA Group Number: NA
--- OUTSIDE RECORDS SUMMARY | 2024-07-14 18:11 | XMS_ITS | Data Portability ---
Author Organization [facility], Main Office Address [address] [facility] [facility] [address] [place] [address] Care Team Providers Care Forensic Locksmith Name Role Phone LEONORA CASEY Primary Care Provider [facility] F[facility] OTHER Assessment Encounter Date Assessment Date Assessment LastModified by Organization Details LastModified Time 01/12/2024 01/12/2024 01/08/24 [place] wbc 11.8, hgb 14.1, plt 159. Na 131, K 3.9, Bun 15, Cr. 0.63, glu 212. [email or web address] Not available 01/15/2024 11:30:39 01/15/2024 01/15/2024 01/08/24 [place] wbc 11.8, hgb 14.1, plt 159. Na 131, K 3.9, Bun 15, Cr. 0.63, glu 212 01/12/24: wbc 9.7, hgb 13.2, hct 43.1, plt 177, ha1c 8.5, est glucose 197, glucose 203, na 132, k 3.5, bun 12, cr 0.56, alb 29 [email or web address] Not available 01/15/2024 14:49:14 01/16/2024 01/16/2024 01/08/24 [place] [place] wbc 11.8, hgb 14.1, plt 159. Na 131, K 3.9, Bun 15, Cr. 0.63, glu 212 01/12/24: wbc 9.7, hgb 13.2, hct 43.1, plt 177, ha1c 8.5, est glucose 197, glucose 203, na 132, k 3.5, bun 12, cr 0.56, alb 29 01/08/24 [place] wbc 11.8, hgb 14.1, plt 159. Na [...] and Address Organization Details Recorded Time Sepsis 24541340 Active 2020 Not Available [facility] 3 04:06:36 Acute urinary tract infection 335097450 Active 2020 Not Available [facility] 3 04:06:35 Colitis 21784691 Active 2020 Not Available [facility] 3 04:06:36 Transient cerebral ischemia 739789552 Active 2020 Not Available [facility] 3 04:06:35 Paroxysmal atrial fibrillati on 002557096 Active 2020 Not Available [facility] 3 04:06:35 Congestive heart failure 25091544 Active 2020 Not Available [facility] 3 04:06:35 History of cerebrovas cular accident 852977214 Active 2020 Not Available [facility] 3 04:06:35 Urethral urinary catheter in situ for care home use 8967924850921 Active 2020 Not Available [facility] 3 04:06:36 Aortic valve stenosis 20445218 Active 2020 Not Available [facility] 3 04:06:36 Type 2 diabetes mellitus 05385839 Active 2020 Not Available [facility] 3 04:06:35 Chronic obstructiv e pulmonary disease 84403365 Active 2020 Not Available [facility] 3 04:06:35 Glaucoma 54839086 Active 2020 Not Available [facility] 3 04:06:35 Essential hypertensi on 18194393 Active 2020 Not Available [facility] 3 04:06:36 Morbid obesity 821571136 Active 2020 Not Available [facility] 3 04:06:35 Osteoarthr itis 681211554 Active 2020 Not Available [facility] 3 04:06:35 History of eye enucleatio n 7635313471574 05 Active 2020 Not Available [facility] 3 04:06:35 Glaucoma 06640702 Active 2020 Not Available [facility] 3 04:06:35 COVID-19 107704487 Active 2021 Not Available [facility] 3 04:06:36 Hyperlipid emia 12295384 Active 2021 Not Available [facility] 3 04:06:36 Vitamin D deficiency 77542948 Active 2021 Not Available [facility] 3 04:06:35 Admission for respite care Active 2021 Not Available [facility] 3 04:06:35 Bacteriuri a 99986606 Active 2021 Not Available [facility] 3 04:06:36 Urinary tract infectious disease 92237674 Active 2022 Not Available [facility] 3 04:06:36 Neurogenic urinary bladder 065018419 Active 2022 Not Available [facility] 3 04:06:35 Obstructiv e sleep apnea syndrome 16992558 Active 2022 Not Available [facility] 3 04:06:36 Atrial fibrillati on 16564573 Active 2022 Not Available [facility] 3 04:06:35 Neuropathy 299368379 Active 2022 Not Available [facility] 3 04:06:35 Diarrhea 43474702 Active 2023 ALEAH ATKINS NP [address] [facility], [address], [place], [address] , [facility] 4 14:17:12 [facility] 51242481 Active 2023 Kady Lund MD [address] [facility], [address], [place], [address] , [facility] [employer] 4 19:36:13 Problem Notes None recorded. Procedures Surgical History Date Name Laterality Status Provider Name and Address Organization Details Recorded Time Removal of adenoids completed TRACI TORREZ [address] [facility], [address], [place], [address], [facility] [employer] 09/25/2020 19:50:50 enucleation of eyeball completed MORIS TORREZP [address] [facility], [address], [place], [address], [facility] [employer] [facility] 09/25/2020 19:51:26 tonsillectomy completed TRACI TORREZ [address] [facility], [address], [place], [address], [facility] [employer] 09/25/2020 19:51:39 Imaging Results None recorded. Procedure Notes None recorded. Medical Equipment None Reported. Allergies Allergen ID Allergen Name Allergen Category Reaction Reaction Severity Criticality Documentation Date Start Date Code Code System Note Provider Name and Address Organization Details Recorded Time [id number] silver sulfadiaz ine medicatio n Not available [...] mm[Hg] 54 mm[Hg] ALEAH ATKINS NP [address] [facility], [address], [place], [address], [facility] [employer] 4 14:06:48 Date Recorded Heart rate Respiratory rate Body temperature Oxygen saturation Oxygen saturation in Arterial blood by Pulse oximetry Systolic blood pressure Diastolic blood pressure Provider Name and Address Organization Details Last Updated DateTime 4 81 /min 20 /min 98.1 [degF] 92 % 92 % 130 mm[Hg] 90 mm[Hg] TRACI BERG [address] [facility], [address], [place], [address], [employer] 4 14:03:42 Date Recorded Body weight Heart rate Respiratory rate Body temperature Oxygen saturation Oxygen saturation in Arterial blood by Pulse oximetry Systolic blood pressure Diastolic blood pressure Provider Name and Address Organization Details Last Updated DateTime 4 131068. 94 g 73 /min 18 /min 97.8 [degF] 93 % 93 % 130 mm[Hg] 76 mm[Hg] Lisy Munroe NP [address] [facility], [facility] [address], [place], [address], [employer] 4 14:15:58 Date Recorded Body height Body mass index (BMI) Body weight Heart rate Respiratory rate Body temperature Oxygen saturation Oxygen saturation in Arterial blood by Pulse oximetry Systolic blood pressure Diastolic blood pressure Provider Name and Address Organization Details Last Updated DateTime 4 167.64 cm 43.9 kg/m2 555597. 12 g 67 /min 18 /min 97.8 [degF] 97 % 97 % 130 mm[Hg] 89 mm[Hg] Kady Lund MD [address] [facility], [facility] [address], [place], [address], [employer] 4 18:25:27 Date Recorded Body height Body mass index (BMI) Body weight Heart rate Respiratory rate Body temperature Oxygen saturation Oxygen saturation in Arterial blood by Pulse oximetry Systolic blood pressure Diastolic blood pressure Provider Name and Address Organization Details Last Updated DateTime 4 167.64 cm 43.9 kg/m2 979126. 12 g 64 /min 18 /min 97.8 [degF] 93 % 93 % 112 mm[Hg] 70 mm[Hg] Lisy Munroe NP [address] [facility], [facility] [address], [place], [address], [employer] 4 10:22:42 Social History Question Answer Notes LastModified by Organizat ion Details LastModified Time Tobacco Smoking Status Never Smoker TRACI TORREZ [address] [facility], [address], [place], [address], [facility] 09/25/2020 19:44:55 Do You Have An Advance Directive? Yes Full Code; No Dialysis; Ok For Artificial Nutrition And Hydration Information not available 01/06/2022 What Is Your Level Of Alcohol Consumption? None Information not available 09/25/2020 How Much Tobacco Do You Chew? None Information not available 09/25/2020 What Is Your Code Status? Full Code [email or web address] Information not available 12/03/2021 Do You Or Have You Ever Used E-cigarettes Or Vape? Never Used Electronic Cigarettes Information not available 09/25/2020 Where Do You Live? Apartment Home With Help, Has Own Thi, Assistance And Motorized Wheelchair Information not available 04/05/2022 Legal Guardian? No [email or web address] Informati on not available 12/07/2021 Do You Have A Medical Power Of Director Of Securities And Real Estate? Yes [email or web address] Information not available 12/03/2021 What Was The Date Of Your Most Recent Tobacco Screening? 01/10/2024 [email or web address] Information not available 01/10/2024 Do You Have An Out Of Hospital DNR? No [email or web address] Information not available 12/03/2021 Do You Or [...] Other Forms Of Tobacco Or Nicotine? No [email or web address] Information not available 12/07/2021 Sex: Unknown Functional Status None recorded. Mental Status None recorded. Family History Relationship Description Onset Age of this Age Resolved Age Notes LastModified by Organization Details LastModified Time Father No current problems or disability Not available 01/09 14:07:27 Mother No current problems or disability [email or web address] Not available 01/09 14:07:27 Notes:n/c Medical History No medical history recorded. Gynecological HistoryNo gynecological history recorded. Obstetrics History GPAL:G 0 P 0 0 0 0 Immunizations Vaccine Type Date Status Note Provider Nam e and Address Organization Details Recorded Time Influenza, split virus, quadrivalent, preservative 1 completed Not Available [facility] 10/25/2022 04:06:36 pneumococcal polysaccharide PPV23 0 completed Not Available [facility] 10/25/2022 04:06:36 COVID-19 vaccine, vector-nr, rS-ChAdOx1, PF, 0.5 mL 1 completed Not Available [facility] 10/25/2022 04:06:36 Td (adult) 8 completed Not Available [facility] 10/25/2022 04:06:37 Influenza, adjuvanted, quadrivalent, PF 3 completed Jenn garcia, [facility] 09/12/2023 12:42:27 Influenza, adjuvanted, quadrivalent, PF 3 completed Jnen garcia, [facility] 09/12/2023 12:42:40 COVID-19, mRNA, LNP-S, PF, 50 mcg/0.5 mL 3 completed Jenn garcia, [facility] 10/26/2023 12:36:29 Tdap 3 completed Jennkishore garcia, [facility] 10/26/2023 12:36:56 Pneumococcal conjugate PCV20, polysaccharide GRX520 conjugate, adjuvant, PF 4 completed Jenn garcia, [facility] 10/26/2023 12:37:34 Tdap 6 completed Not Available [facility] 10/25/2022 04:06:37 Influenza, high-dose, trivalent, PF 8 completed Not Available [facility] 10/25/2022 04:06:37 pneumococcal polysaccharide PPV23 8 completed Not Available [facility] 10/25/2022 04:06:36 Pneumococcal conjugate PCV 13 5 completed Not Available [facility] 10/25/2022 04:06:37 pneumococcal polysaccharide PPV23 11/16/200 1 completed Not Available [facility] 10/25/2022 04:06:36 Past Encounters Encounter ID Performer Location Encounter Start Date Encounter Closed Date Diagnosis/Indication Diagnosis SNOMED-CT Code Diagnosis ICD10 Code [id number] [address]IS [address] [place] [address] 09/25/2020 15:47:43 10/01/2020 11:36:53 Sepsis 17191030 A41.89 Acute urin preston tract infection 245849810 N30.00 Colitis 90286091 K52.89 Transient cerebral ischemia 006029824 G45.9 Paroxysmal atrial fibrillation 000099003 I48.0 Congestive heart failure 88410815 I50.89 History of cerebrovascular accident 189039298 Z86.73 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 in situ for care home use 9113065624 104 Z96.0 Aortic valve stenosis 60 021521 I35.0 Type 2 juvenal betes mellitus 14419443 E11.42 Chronic ob structive pulmonary disease 32621282 J41.8 Glaucoma 19383500 H42 Essential hypertension 26723659 I10 Morbid obesity 850346674 E66.01 Osteoarthritis 726461604 M15.0 History of eye enucleation 6050918080 13279 Z90.01 [id number] Kady Lund MD [address] [address] 09/28/2020 12:53:35 10/01/2020 11:48:26 Sepsis 66562832 A41.89 Acute urin preston tract infection 049704117 N30.00 Colitis 68376687 K52.89 Paroxysmal atrial fibrillation 697038853 I48.0 Congestive heart failure 02470312 I50.89 History of cerebrovascular accident 098993021 Z86.73 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 in situ 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 churn 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 4816165156 104 Z96.0 Aortic valve stenosis 60 183092 I35.0 Type 2 juvenal betes mellitus 67946087 E11.42 Chronic ob structive pulmonary disease 90159387 J41.8 Glaucoma 95096081 H42 Essential hypertension 02596287 I10 Morbid obesity 055804317 E66.01 Osteoarthritis 669467815 M15.0 History of eye enucleation 8351742013 58753 Z90.01 [id number] TRACI TORREZ [address] [place] [address] 10/09/2020 13:18:28 10/13/2020 08:48:18 Congestive heart failure 94402188 I50.89 Essential hypertension 73057350 I10 Paroxysmal atrial fibrillation 884289668 I48.0 [id number] NOELLE MARIA [address] [address] [place] [address] 10/14/2020 12:39:56 10/16/2020 10:09:52 Urethral urinary catheter in situ 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 churn 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 5745996891 104 Z96.0 Dysuria 19859134 R30.0 [id number] NOELLE MARIA [address] [address] [place] [address] 10/19/2020 13:58:55 10/21/2020 11:27:28 Acute urinary tract infection 933072210 N30.00 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 in situ for care home use 8212347063 104 Z96.0 [id number] NOELLE MARIA [address] [address] [place] [address] 10/20/2020 12:44:09 10/23/2020 09:40:49 Congestive heart failure 64451131 I50.89 Essential hypertension 31086176 I10 History of cerebrovascular accident 934858819 Z86.73 Morbid obesity 065506983 E66.01 Osteoarthritis 568219990 M15.0 Paroxysmal atrial fibrillation 074447197 I48.0 Type 2 juvenal betes mellitus 55870931 E11.42 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 in situ for care home use 7258910601 104 Z96.0 Colitis 77129769 K52.89 Chronic ob structive pulmonary disease 28674151 J41.8 Acute urin preston tract infection 695315395 N30.00 [id number] FAUSTINO PABON NP [address] [address] [address] [place] [address] 11/03/2020 11:29:23 11/05/2020 11:26:14 Chronic obstructive pulmonary disease 33845266 J44.9 Type 2 juvenal betes mellitus 63890892 E11.9 [id number] Stefan Merlos MD [address] [address] [place] [address] 11/12/2020 13:08:51 11/13/2020 11:39:34 Pain of left shoulder joint 7968852453 9271544 M25.512 Neck pain 95052397 M54.2 [id number] Leda Layton MD [address] [address] [address] [place] [address] 11/13/2020 06:27:51 11/16/2020 14:20:57 Chronic obstructive pulmonary disease 91237149 J41.0 Congestive heart failure 41766363 I50.22 Essential hypertension 14831227 I10 History of cerebrovascular accident 538752903 Z86.73 Osteoarthritis 351966250 M15.0 Paroxysmal atrial fibrillation 248029581 I48.0 Type 2 juvenal betes mellitus 43655426 E11.9 [id number] NOELLE MARIA [address] [place] [address] 12/04/2020 14:37:48 12/08/2020 16:12:10 History of cerebrovascular accident 541289704 Z86.73 Osteoarthritis 483540495 M15.0 Paroxysmal atrial fibrillation 074315041 I48.0 Type 2 juvenal betes mellitus 62461532 E11.42 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 in situ for care home use 4830763307 104 Z96.0 Morbid obesity 914092768 E66.01 Essential hypertension 57280309 I10 Chronic ob structive pulmonary disease 61535797 J41.8 Aortic valve stenosis 60 312121 I35.0 Congestive heart failure 01173723 I50.89 [id number] NOELLE MARIA [address] [place] [address] 12/24/2020 13:27:36 12/28/2020 15:17:56 Pain of right shoulder joint 5343126635 4385154 M25.511 [id number] NOELLE MARIA [address] [place] [address] 12/28/2020 13:28:54 12/30/2020 11:32:08 Pain of right shoulder joint 5835053119 9761874 M25.511 [id number] NOELLE MARIA [address] [place] [address] 01/19/2021 12:20:44 01/26/2021 12:28:25 Sepsis 99266137 A41.89 Acute urin preston tract infection 692720888 N30.00 Colitis 87134111 K52.89 Transient cerebral ischemia 194508814 G45.9 Paroxysmal atrial fibrillation 812977580 I48.0 Congestive heart failure 31205573 I50.89 History of cerebrovascular accident 730709626 Z86.73 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 in situ 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 churn 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 0248675178 104 Z96.0 Aortic valve stenosis 60 078295 I35.0 Type 2 juvenal betes mellitus 74685151 E11.42 Chronic ob structive pulmonary disease 16393338 J41.8 Glaucoma 29215172 H42 Essential hypertension 24075814 I10 Morbid obesity 845219868 E66.01 Osteoarthritis 892186127 M15.0 History of eye enucleation 7152524159 82630 Z90.01 Pain of ri ght shoulder joint 3443271997 5948562 M25.511 [id number] PATSY EDEN PA-C [facility] on [address] [place] [address] 12/03/2021 15:59:43 12/09/2021 16:05:45 Chronic obstructive pulmonary disease 02092364 J44.9 COVID-19 800801891 U07.1 Cellulitis of left lower limb 2183777559 8357934 L03.116 Acute hypo xemic respiratory failure 021504550 J96.01 Type 2 juvenal betes mellitus with peripheral angiopathy 303403073 E11.51 Candidal intertrigo 2661 37750 B37.2 Neurogenic urinary bladder 588254797 N31.9 Functional fecal incontinence 435229682 R15.9 Paroxysmal atrial fibrillation 528436861 I48.0 Essential hypertension 37237885 I10 Vitamin D deficiency 347 14016 E55.9 Moderate p ersistent asthma 544682957 J45.40 Congestive heart failure 76778281 I50.9 Dyslipidemia 895705119 E 78.5 Chronic neck pain 246335 8337 107 M54.2 Chronic back pain 569105 002 M54.9 Allergic rhinitis 733690 04 J30.9 Advance care planning 71 8579583 Z71.89 At [facility] ed risk for falls 655457348 Z91.81 [id number] Kady Lund MD [facility] on [address] [place] [address] 12/07/2021 18:17:25 12/10/2021 14:46:47 Chronic obstructive pulmonary disease 94071889 J41.8 Congestive heart failure 93755157 I50.89 Type 2 juvenal betes mellitus 06256162 E11.42 Morbid obesity 194010402 E66.01 Paroxysmal atrial fibrillation 734745098 I48.0 Osteoarthritis 282667792 M15.0 Essential hypertension 63785468 I10 Candidiasis of skin 4988 3006 B37.2 Post-acute COVID-19 1119 499418 U07.1 COVID-19 748690076 U07.1 Hyperlipidemia 20395164 E78.49 Vitamin D deficiency 347 23953 E56.8 [id number] PATSY EDEN PA-C [facility] on [address] [place] [address] 12/09/2021 11:49:10 12/14/2021 10:12:06 Type 2 diabetes mellitus 27804956 E11.42 Paroxysmal atrial fibrillation 904141957 I48.0 Osteoarthritis 734187909 M15.0 [id number] FAUSITNO PABON NP [address] [address] 01/06/2022 10:52:44 01/12/2022 15:31:48 Acute urinary tract infection 001869719 N30.00 Type 2 juvenal betes mellitus 53841136 E11.42 Vitamin D deficiency 347 12896 E56.8 Paroxysmal atrial fibrillation 844776784 I48.0 Osteoarthritis 605798569 M15.0 Hyperlipidemia 74792578 E78.49 Congestive heart failure 51839683 I50.89 Chronic ob structive pulmonary disease 79978466 J41.8 Essential hypertension 86909691 I10 [id number] FAUSTINO PABON NP [address] [address] 01/07/2022 11:00:47 01/12/2022 16:07:23 Acute urinary tract infection 425685832 N30.00 Type 2 juvenal betes mellitus 51481317 E11.42 [id number] FAUSTINO PABON NP [address] [address] 01/11/2022 11:56:32 01/18/2022 14:35:40 Acute urinary tract infection 347370434 N30.00 History of cerebrovascular accident 865461446 Z86.73 Congestive heart failure 46240316 I50.89 [id number] Leda Layton MD [address] [address] 01/12/2022 05:26:23 01/18/2022 14:54:45 History of cerebrovascular accident 126339290 Z86.73 Paroxysmal atrial fibrillation 175493893 I48.0 Type 2 juvenal betes mellitus 23456859 E11.42 Asthenia 73321582 R53.1 Essential hypertension 18903418 I10 Chronic ob structive pulmonary disease 14974131 J41.8 [id number] FAUSTINO PABON NP [address] [address] 01/17/2022 12:58:09 01/25/2022 12:24:51 Acute urinary tract infection 445038935 N30.00 Type 2 juvenal betes mellitus 55140434 E11.42 Vitamin D deficiency 347 75514 E56.8 Paroxysmal atrial fibrillation 572339397 I48.0 Osteoarthritis 502387051 M15.0 Hyperlipidemia 67022432 E78.49 Congestive heart failure 31603713 I50.89 Chronic ob structive pulmonary disease 05028598 J41.8 Essential hypertension 23182575 I10 [id number] FAUSTINO PABON NP [address] [address] 03/31/2022 11:01:20 04/05/2022 20:26:42 Type 2 diabetes mellitus 17924334 E11.42 Vitamin D deficiency 347 00413 E56.8 Paroxysmal atrial fibrillation 685985560 I48.0 Osteoarthritis 105284810 M15.0 Hyperlipidemia 73109348 E78.49 Congestive heart failure 23623263 I50.89 Chronic ob structive pulmonary disease 55587738 J41.8 Essential hypertension 45046914 I10 Morbid obesity 844808853 E66.01 [id number] FAUSTINO PABON NP [address] [address] 04/01/2022 12:23:01 04/06/2022 16:25:58 Chronic obstructive pulmonary disease 53106401 J41.8 Osteoarthritis 742796207 M15.0 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 in situ 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 churn 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 1456073436 104 Z96.0 [id number] FAUSTINO PABON NP [address] [address] 04/04/2022 13:31:43 04/07/2022 15:11:22 Congestive heart failure 44753044 I50.89 Paroxysmal atrial fibrillation 272762669 I48.0 [id number] Kady Lund MD [address] [address] 04/05/2022 15:28:39 04/12/2022 13:07:36 Congestive heart failure 81565408 I50.89 Paroxysmal atrial fibrillation 160792052 I48.0 Chronic ob structive pulmonary disease 00935731 J41.8 Osteoarthritis 544172900 M15.0 Type 2 juvenal betes mellitus 22296494 E11.42 Vitamin D deficiency 347 66507 E56.8 Hyperlipidemia 42533144 E78.49 Essential hypertension 89829458 I10 Morbid obesity 612499026 E66.01 Asthenia 09537941 R53.1 Bacteriuria 83867856 R82 .71 N39.498 [id number] FAUSTINO PABON NP [address] [address] 04/11/2022 11:18:46 04/14/2022 12:04:56 Acute urinary tract infection 911571116 N30.00 Chronic ob structive pulmonary disease 42812400 J41.8 [id number] FAUSTINO PABON NP [address] [address] 04/21/2022 12:50:33 04/26/2022 14:58:24 Acute urinary tract infection 892857971 N30.00 Morbid obesity 526226646 E66.01 [id number] FAUSTINO PABON NP [address] [address] 04/28/2022 12:32:14 05/03/2022 15:40:31 Chronic obstructive pulmonary disease 38440210 J41.8 Morbid obesity 910170863 E66.01 Type 2 juvenal betes mellitus 31545624 E11.42 Vitamin D deficiency 347 93412 E56.8 Paroxysmal atrial fibrillation 814635421 I48.0 Osteoarthritis 691354329 M15.0 Hyperlipidemia 35055757 E78.49 Congestive heart failure 14289596 I50.89 Essential hypertension 94092063 I10 [id number] FAUSTINO PABON NP [address] [address] 05/11/2022 11:51:59 05/18/2022 15:23:58 Chronic obstructive pulmonary disease 36548552 J41.8 Congestive heart failure 30470987 I50.89 Morbid obesity 237355184 E66.01 Type 2 juvenal betes mellitus 92307298 E11.42 Vitamin D deficiency 347 79406 E56.8 Paroxysmal atrial fibrillation 625367293 I48.0 Osteoarthritis 478755909 M15.0 Hyperlipidemia 18744343 E78.49 Essential hypertension 34660664 I10 [id number] FAUSTINO PABON NP [address] [address] 05/16/2022 10:20:33 05/18/2022 16:24:08 Chronic obstructive pulmonary disease 04431726 J41.8 Morbid obesity 159500799 E66.01 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 in situ for care home use 4002840177 104 Z96.0 [id number] [facility] [address] [place] [address] 10/07/2022 08:11:14 10/10/2022 13:33:35 Urinary tract infectious disease 38230260 N39.0 Neurogenic urinary bladder 050471053 N31.8 Morbid obesity 381862264 E66.01 Type 2 juvenal betes mellitus 56396449 E11.42 Congestive heart failure 46192292 I50.89 Chronic ob structive pulmonary disease 39824750 J41.8 Obstructiv e sleep apnea syndrome 52054849 G47.33 Essential hypertension 78603158 I10 Atrial fibrillation 4943 6004 I48.19 Aortic valve stenosis 60 868374 I35.0 Hyperlipidemia 03396171 E78.49 Osteoarthritis 706545539 M15.0 Neuropathy 744254838 G62 .89 [id number] [facility] [address] [place] [address] 10/11/2022 08:36:19 10/13/2022 11:11:56 Urinary tract infectious disease 89240979 N39.0 Neurogenic urinary bladder 165533517 N31.8 Morbid obesity 635213972 E66.01 Type 2 juvenal betes mellitus 52983964 E11.42 Congestive heart failure [id number] I50.89 Chronic ob structive pulmonary disease 97869723 J41.8 Obstructiv e sleep apnea syndrome 14704263 G47.33 Essential hypertension 07607588 I10 Atrial fibrillation 4943 6004 I48.19 Aortic valve stenosis 60 725594 I35.0 Hyperlipidemia 89747902 E78.49 Osteoarthritis 907505888 M15.0 Neuropathy 766166647 G62 .89 [id number] ALEAH ATKINS NP [facility] [address] [address] 01/10/2024 14:05:26 01/18/2024 11:38:18 Chronic obstructive pulmonary disease 32696946 J41.8 Atrial fibrillation 4943 6004 I48.19 Type 2 juvenal betes mellitus 06279956 E11.42 Congestive heart failure 00578309 I50.89 Essential hypertension 90910926 I10 History of cerebrovascular accident 942937746 Z86.73 Neurogenic urinary bladder 819703755 N31.8 Neuropathy 294562179 G62 .89 Vitamin D deficiency 347 86559 E56.8 Diarrhea 10130744 R19.7 [id number] TRACI BERG [facility] [address] [address] 01/12/2024 11:24:53 01/18/2024 13:03:05 Aphthous ulcer of mouth 184984028 K12.0 Abdominal pain 17338572 R10.9 [id number] Lisy Munroe NP [facility] [address] [address] 01/15/2024 14:01:35 01/18/2024 14:27:24 Abdominal pain 96577338 R10.9 Chronic ob structive pulmonary disease 58719300 J41.8 Atrial fibrillation 4943 6004 I48.19 Type 2 juvenal betes mellitus 87229911 E11.42 Congestive heart failure 26327906 I50.89 Essential hypertension 67291954 I10 History of cerebrovascular accident 951179430 Z86.73 Neurogenic urinary bladder 532763285 N31.8 Neuropathy 745159218 G62 .89 Vitamin D deficiency 347 85633 E56.8 Candidiasis 09247886 B37 .9 [id number] Kady Lund MD [address] [address] 01/16/2024 18:15:29 01/18/2024 15:13:53 Abdominal pain 72441295 R10.84 Candidiasis 93222449 B37 .9 Chronic ob structive pulmonary disease 15946629 J41.8 Atrial fibrillation 4943 6004 I48.19 Type 2 juvenal betes mellitus 78676169 E11.42 Congestive heart failure 36551171 I50.89 Essential hypertension 30553518 I10 History of cerebrovascular accident 731422907 Z86.73 Neurogenic urinary bladder 733061665 N31.8 Neuropathy 058025868 G62 .89 Vitamin D deficiency 347 11301 E56.8 Diarrhea 60708919 K59.1 Aphthous u lcer of mouth 147929321 K12.0 Hyponatremia 75116250 E8 7.1 [id number] Lisy Munroe NP [address] [address] 01/23/2024 10:20:00 01/25/2024 15:41:39 Diarrhea 56768775 K59.1 Abdominal pain 04923884 R10.84 Hyponatremia 57316735 E8 7.1 Aphthous u lcer of mouth 185235429 K12.0 Chronic ob structive pulmonary disease 70648306 J41.8 Essential hypertension 88398711 I10 Atrial fibrillation 4943 6004 I48.19 Type 2 juvenal betes mellitus 68976423 E11.42 Congestive heart failure 02092674 I50.89 Candidiasis 18109043 B37 .9 History of cerebrovascular accident 939932203 Z86.73 Neurogenic urinary bladder 174196446 N31.8 Neuropathy 803808143 G62 .89 Vitamin D deficiency 347 10638 E56.8 Health Concerns Section Related Observation LastModified by Organization Detai ls LastModified Time None Recorded Concern Status LastModified by Organization Details LastModified Time None Recorded Advance Directives Directive Y: full code; no dialysis; o k for artificial nutrition and hydration Payers Encounter Date Sequence Insurance Name Policy Number Policy Adler Covered Member ID Adler Member ID Guarantor Name 01/10/2024 1 [place] [facility] Aleah Connor [id number] Aleah Connor 01/10/2024 2 [place] Aleah Connor [id number] Aleah Connor 01/12/2024 1 [place] [facility] Aleah Connor [id number] Aleah Connor 01/12/2024 2 [place] Aleah Connor [id number] Aleah Connor 01/15/2024 1 [place] [facility] Aleah Connor [id number] Aleah Connor 01/15/2024 2 [place] Aleah Connor [id number] Aleah Connor 01/16/2024 1 [place] [facility] Aleah Connor [id number] Aleah Connor 01/16/2024 2 [place] Aleah Connor [id number] Aleah Connor 01/23/2024 1 [place] [facility] Aleah Connor [id number] Aleah Connor 01/23/2024 2 [place] Aleah Connor [id number] Aleah Connor Notes Date Note Type Note Provider Name and Address Organization Details Recorded Time 01/10/2024 text/html Aleah is seen to day for initial intake. She is a 73 yo woman, admitted to [facility] today 01/09 [place] [facility] [place]respite and rehab. She presented to [facility] 01/08/24 with diarrhea; soaked thru mattress [...] aortic valve stenosis. ALEAH ATKINS NP [address], [address], [place], [address], [facility] [employer] [facility] 01/10/2024 14:49:28 01/12/2024 text/html This is a 73 yr old femal seen today for acute rounding visit. She was recently admitted to facility from [facility] It looks likes she initially presented to [facility] on 01/05 with abdominal pain and vomiting, [...] discharged back to home and returned to [facility] on 01/07 with diarrhea. On exam when [...] ordered an abdominal xray. TRACI BERG [address], [address], [place], [address], [facility] [employer] 01/15/2024 11:42:15 01/15/2024 text/html Aleah is a 73 yr old women seen today for acute rounding visit. Sybil was recently admitted to facility from [facility]. Initially presented to [facility] on 01/05 with abdominal pain and vomiting, [...] colon and rectum. Lisy Munroe, ISRA [address], [address], [place], [address], [facility] [employer] 01/15/2024 14:50:19 01/16/2024 text/html This is a 73 yo woman who is here for rehab after 2 ED visits for abd pain, diarrhea and vomiting.She initially presented to the [facility] on 12/27 after having brown emesis, [...] and aortic stenosis. Kady Lund MD [address], [address], [place], [address], [facility] - [employer] 01/16/2024 19:36:57 01/23/2024 text/html Patient is seen [...] and respite. She initially presented to the [facility] on 12/27 after having brown emesis, [...] was d/c'd home. She returned on to [facility] on 01/07 after having a large diarrheal stool which soaked through her mattress. She had mild hyponatremia (Na+131), but labs were otherwise unremarkable. Consideration was given for admission, but determined to not qualify, so arranged for STR and transferred here on 01/09. While here at [facility]:She continues to remain at baseline she [...] yellow clear urine noted. Lisy Munroe NP [address] [place] [address], [address], [place], [address], [facility] 01/23/2024 12:25:11 OBGyn Episode No OBEpisode recorded.
--- OUTSIDE RECORDS SUMMARY | 2024-07-14 18:11 | XMS_ITS | Data Portability ---
Author Organization [place] [facility] Address [address] [place] [id number] Care Team Providers Care Forest Officer Name Role Phone CAESYLEONORA Primary Care Provider Assessment Encounter Date Assessment Date Assessment LastModified by Organization Details LastModified Time 06/27/2018 06/27/2018 Overview/History : 67 yo female with the past medical history significant for diabetes, asthma, HTN, kidney disease, CHF, UTIs, indwelling Folley. Daughter called today for evaluation of dark spot on 3rd right toe noted 3 days ago but not sure for how long that spot was actually there. Family concerned about necrotic toe. Patient reported mild injury to that area several weeks ago when she was hit by elevator door. Denied fever, chills, pain or redness in the area. No systemic symptoms or other complains reported. Exam: Obese elderly female in no acute distress; not ill or toxic appearing Lungs are clear to auscultation bilaterally Cardiac RRR, 3/6 systolic murmur noted Bowel sounds normal, abdomen is non tender non distended Moving all extremities well Skin: bilateral venous stasis of lower extremities. right 3rd toe with a dark dry lesion approximately 0.4cm in diameter; well circumcised. No erythema or open wound Extremities well perfused; distal pulses present. No cyanosis or edema DDx considered, but not limited to: Blood blister - possible diagnosis due to clinical presentation and Hx of mild trauma Necrosis of the toe - unlikely, lesion is dy and well demarcated Cellulitis - unlikely based on clinical presentation Wound - no open wound noted on presentation Work up/Results: none indicated Plan/Discussion: - debritment performed on scene. Affected skin was dry and came off easily when scraped with the scalpel. Skin under the was pink and healthy appearing - applied bacitracin ointment and bandage to the affected area for protection - advised patient to follow up with PCP if any worsening of the symptoms noted. - advised to wear shoes at all times when out of bed - seek immediate medical attention or call 911 if symptoms worsen or if develop fever, chills, pain, erythema or any other concerning symptoms. - Case and treatment plan discussed with Dr. Muhammad In order to obtain further information and compare any laboratory results/values, I have accessed old patient records. This information was pertinent in my medical decision making today. Time On Scene with Patient: 01:13:28 [email or web address] Not available 06/27/2018 15:32:45 04/18/2021 04/18/2021 Proper Personal Protective Equipment (PPE), including gloves, gown, shoe covers, eye protection and masks were donned and doffed appropriately and all equipment cleaned using approved technique with germicidal disposable wipes prior to and after care of this patient according to [facility]'s infection prevention protocols. Overview/History: 70 yo immunocompromised morbidly obese female with PMHx of T2IDDM, asthma, HTN, HLD, AFIB (on Eliquis) kidney disease, CHF, UTIs, indwelling Rai, bacteremia, hydronephrosis, AFIB. Patient states while at rehab post hospitalization an aid ran over her left foot with a rolling table two weeks ago. Patient home now with home health aid who noticed increased swelling, redness, and heat from left foot. Patient denies any fever, chills, headache, chest pain, palpitations, abdominal pain, nausea, vomiting or diarrhea, denies melena, bright red blood per rectum. Exam: CV: Normal HR, irregular rhythm, no rubs/ systolic murmur/ gallops heard, 2+ radial pulses bilaterally, no edema, 1+ DP pulses bilaterally Pulm: breath sounds clear and equal bilaterally, no wheeze/ rhonchi or rales on auscultation. Speaks in full sentences, no increased work of breathing. GI: Soft, non-tender to palpation. No masses, normal bowel sounds. : No CVA tenderness, indwelling urinary catheter draining clear yellow urine. MS: non-ambulatory, wheel chair bound, hoya lift, moves extremities X 4 w/o deficit, evidence of trauma to 1st & 5th toes left foot, open wound skin tear left 5th toe. Neuro: No focal deficits, patient GCS- 456, CN? s II-XII grossly normal Skin: No rash, erythema, warmth, increased swelling left foot. Psych: Calm, cooperative, non-manic DDx considered, but not limited to: traumatic wound left foot 1st and 5th toes, open wound left 5th toe, skin tear, cellulitis left foot Work up/Results: none Plan/Discussion: Irrigation left 5th to open wound/skin tear with wound cleanse, apply xeroform, telfa gauze over open wound, 4 X 4 gauze between toes left foot, Coban wrap loosely around DSG. Left over DSG supplies given to patient to facilitate two more DSG changes. Dispense Doxycycline 200mg PO X 1 dose given on scene d/t immunocompromised state w/T2IDDM, morbid obesity, cellulitis left foot. Doxycycline 100mg PO BID X 5 days prescribed. Mupirocin 2% topical ointment prescribed, 3-view X-ray left foot ordered. Instruction given to patient and home health aid to stay vigilant for signs of worsening infection with fever, malaise, increasing redness, heat and Purulent drainage which usually indicates a sign of an infection. Drainage changes color white, yellow, green. Report to the ER for acute symptoms of chest pain, worsened shortness of breath, severe weakness, fevers of 101.5 or greater, mental status changes, severe unrelieved headaches, inability to eat, drink, or walk. patient agreed to [facility] for wound check in seven days (04/25/21). Pt and home health aid verbalized understanding of all instructions provided. In order to obtain further information and compare any laboratory results/values, I have accessed patient records on the [employer] [place] [employer]. This information was pertinent in my medical decision making today. [email or web address] Not available 04/18/2021 17:36:57 06/20/2021 06/20/2021 Proper Personal Protective Equipment (PPE), including gloves, gown, shoe covers, eye protection and masks were donned and doffed appropriately and all equipment cleaned using approved technique with germicidal disposable wipes prior to and after care of this patient according to [facility]'s infection prevention protocols. Overview/History: 70 yo female w/PMHx of T2IDDM, asthma, HTN, HLD, AFIB (on Eliquis) kidney disease, CHF, UTIs, indwelling Rai, bacteremia, hydronephrosis, Patient states hospitalization in early June, for three days for cellulitis, of LLE; D/C on Doxycyline which she is still on, last day tomorrow. She states her Rai catheter was accidentally pulled out early this a.m., got caught when she was raising her bed; came out intact, with balloon inflated. Exam: Constitutional: 70 yo female well developed, morbidly obese, appears stated age, pleasant patient in no apparent distress. Eyes: PERRL at 4mm, EOM's intact, No swelling, no discharge, sclera / conjunctiva clear ENT: no nasal discharge, no erythema/ exudate noted in oropharynx, moist mucous membranes, no lymphadenopathy CV: Normal HR, no rubs/grade II/ systolic murmurs/ no gallops heard, 2+ radial pulses bilaterally, no edema, 2+ DP pulses bilaterally Pulm: breath sounds clear w/poor inspiratory effort; short, frequent shallow resps., at 26 to 28 bpm, no wheeze/ rhonchi or rales on auscultation. Speaks in full sentences, no increased work of breathing. GI: Soft, non-tender to palpation. No masses, normal bowel sounds. : No CVA tenderness bilaterally, no visible bleeding or indication of dried blood MS: bed bound, full assist, hoya lift, moves all limbs without deficit, no evidence of trauma Neuro: No focal deficits, patient GCS- 456, CN? s II-XII grossly normal Skin: No rash Psych: Calm, cooperative, non-manic DDx considered, but not limited to: neurogenic bladder, immobility, deconditioning, Work up/Results: none Plan/Discussion: Placed patient's 20 congolese silicone 30cc balloon urinary catheter and new urimeter w/o difficulty in a sterile fashion, drained clear yellow urine, no signs of trauma from previous catheter being pulled out w/balloon inflated. Patient's LLE edema or signs of infection. No urine culture collected d/t no indications of infection. Discussed ED precautions to include: Report to the ER for acute symptoms of chest pain, worsened shortness of breath, severe weakness, fevers of 101.5 or greater, mental status changes, severe unrelieved headaches, inability to eat, drink, or walk. Pt verbalized understanding of all instructions provided In order to obtain further information and compare any laboratory results/values, I have accessed patient records on the [employer].. This information was pertinent in my medical decision making today. Not available 06/20/2021 15:23:20 08/01/2021 08/01/2021 Overview/History : Patient is a 70 year old F, established with , new to provider, with a history of DM, HTN, HDL who presents for replacement of urinary catheter. Patient is wheelchair bound and has a longterm indwelling urinary catheter that is managed by home health and changed monthly - her catheter was last changed one month ago. Patient reports the balloon is filled to 45cc, was recently partially pulled out, and she has had very little urine draining into her collection bag. There is also urine leaking around her catheter- she reports usually having some leakage around catheter. Denies fever, purulent discharge, n/v/d. Exam: Patient is found sitting in a wheelchair, vitals Normal, pt appears chronically ill, pleasant, conversant non-toxic, NAD, A&OX3, lungs clear to auscultation bilaterally, abd soft, non-tender, non-distended without guarding or rebound, DDx considered, but not limited to: urinary retention, displaced longterm indwelling urinary catheter, UTI, vaginitis Plan: Procedures Performed: rai catheter replaced using patient's own supplies MDM/Discussion: You have been seen today for replacement of your rai catheter. Your catheter has been replaced and is functioning well at this time. Continue to monitor for leaking more than normal, bleeding, or no urine in the tube or bag. Consider ER for further evaluation if at any point you are unable to pass urine. Follow up with urology as soon as possible due to increased difficulty with rai catheters. Unlikely UTI, urine clear, no dysuria, no foul smelling urine. Unlikely urinary retention, urine flowing into rai catheter and collection bag. Low suspicion for emergent condition requiring further intervention at this time; however, ER precautions have been given. Advised to follow up with her PCP. The patient verbalizes agreement and understanding of treatment plan. In order to obtain further information and compare any laboratory results/values, I have accessed old patient records. This information was pertinent in my medical decision making today. The patient was last seen on 06-20-2021 for rai catheter replacement. This information was pertinent in my medical decision making today. Proper Personal Protective Equipment (PPE), including gloves, eye protection and masks were donned and doffed appropriately and all equipment cleaned using approved technique with germicidal disposable wipes prior to and after care of this patient according to [facility]'s infection prevention protocols. Time On Scene with Patient: 00:48:37 Not available 08/02/2021 18:13:11 03/05/2022 03/05/2022 Overview/History :71 yo female known to but new to this provider with PMH of morbid obesity, HTN, and HLD who is being seen today for leaking urinary catheter and she is requesting it be changed. She denies any other complaints today. Exam: Alert, Non toxic appearing, morbidly obese female. Oral mucosa moist. Lungs CTA, unlabored, RRR no MGR, Abdomen nondistended, soft, nontender, no suprapubic tenderness, Ext with no edema, normal pulses. Speech clear, moving all extremities. Skin normal color and dry. Urine catheter draining light yellow clear urine. Vital Signs: Afebrile and VS hemodynamically stable DDx considered, but not limited to: urinary retention, UTI, catheter malfunction Work up/Results: exam Plan/Discussion: - Patient appears well and nontoxic. - She denies any physical complaints beyond leaking of urine catheter. - She is afebrile with stable VS. - She is eating and drinking well. - No pain, fever or chills, weakness or malaise. - No decrease or change in urine output. - Urine appears clear, yellow and 900 mls in collection bag prior to removal with no notable leakage. - No evidence of acute bacterial or systemic infection or urinary retention. - Likely leakage due to mechanical malfunction. - Urine catheter replaced with #26 Fr with 30 ml balloon. - She requested larger inflation of balloon with 40 ml but we discussed needing to follow hitch technician recommendations for safety reasons. - Instructions on appropriate use of urinary bag reviewed with patient. She declined leg bag and catheter secure due to skin irritation. She agrees to follow up with her urologist related to need for larger balloon catheter which she does not currently have in her home. - She verbalized understandign and agreed to plan of care. - ER precautions review with pt. In order to obtain further information and compare any laboratory results/values, I have accessed patient records on the [place] [employer]. This information was pertinent in my medical decision making today. [email or web address] Not available 03/05/2022 14:12:07 Plan of Treatment Reminders Order Date Submit Date Provider Last Modified By Organization Details Last Modified Time Details Appointments None recorded. Lab None recorded. Referral None recorded. Procedures None recorded. Surgeries None recorded. Imaging XR, foot, 3 or more view - table rolled over top of left foot 2020 [facility] [employer] [address], [place], [address], 17:03:15 Medication Orders doxycyclin e hyclate 100 mg tablet 2020 [email or web address] [facility] #[id number], [address] [place], [address], 2 13:22:12 doxycyclin e hyclate 100 mg capsule 2020 [email or web address] [facility]armacy #[id number], [address] [place], [address], 2 20:55:47 mupirocin 2 % topical ointment 2020 [facility]armacy #[id number], [address] [place], [address], 17:30:48 Patient TargetsNo targets recorded. Patient Instructions Encounter Date Encounter Id Patient Instructions Last Modified By Organization Details Last Modified Time 06/27/2018 [id number] YOU WERE SEEN FO R WOUND EVALUATION. NO OPEN WOUND NOTED. I REMOVED DRY DARK LOOKING SKIN FROM YOUR TOE. SKIN UNDER LOOKED PINK AND HEALTHY. PLEASE, USE SHOES AT ALL TIMES YOU ARE OUT OF BED. PLEASE FOLLOW UP WITH YOUR PRIMARY CARE DOCTOR IF YOU NOTE ANY SKIN CHANGES ON YOUR FEET. PLEASE, SEEK IMMEDIATE MEDICAL ATTENTION, CALL 911 OR GO TO THE CLOSES ER IF YOU DEVELOP ANY FEVER, CHILLS, PAIN OR REDNESS IN YOUR TOE OR ANY OTHER CONCERNING SYMPTOMS. Thank you for your visit with [facility] today. You were seen today for treatment of a wound. Please seek immediate medical attention if you develop increased pain, redness, or swelling of your wound. Also, you should be evaluated if the wound becomes warm to the touch, or if there is a cloudy, yellow-brown discharge from the wound. There is always the possibility of a hidden tendon injury or foreign object in the wound. If you have problems moving your arm or leg, or if you see red streaks up the arm or leg, seek immediate medical attention. If you develop any new or worsening symptoms and need after hours care, please go to nearest ER and/or call 911. If you have additional concerns or develop a change in your condition between 8am-10pm, please call [facility] at [phone] to help navigate your care. [email or web address] Not available 06/27/2018 12:38:45 04/18/2021 [id number] Thank you for yo ur visit with [facility] today. We cannot always find the exact cause of your symptoms during your initial visit. Please follow up with your primary care provider or specialist within 12-24 hours within 24-48 hours within 2-3 days to be rechecked or seek medical attention if your symptoms do not go away or get worse. If you develop any new or worsening symptoms and need after hours care, please go to nearest ER and/or call 911. If you have additional concerns or develop a change in your condition between 8am-10pm, please call [employer] at [phone] to help navigate your care. Thank you for your visit with [facility] today. You do not appear to have a fracture or dislocation that requires immediate surgical intervention. However, small breaks or ligament tears may not be obvious on initial examination. Given this concern, we may have placed you in a temporary splint. If an xray is indicated, we will help direct you to the best option to obtain your imaging study. We have also given you follow up directions. Please follow up with your primary care physician or specialist as directed. If you develop any new or worsening symptoms and need after hours care, please go to nearest ER and/or call 911. If you have additional concerns or develop a change in your condition between 8am-10pm, please call [facility] at [phone] to help navigate your care. Thank you for your visit with [facility] today. You were seen today for treatment of a wound. Please seek immediate medical attention if you develop increased pain, redness, or swelling of your wound. Also, you should be evaluated if the wound becomes warm to the touch, or if there is a cloudy, yellow-brown discharge from the wound. There is always the possibility of a hidden tendon injury or foreign object in the wound. If you have problems moving your arm or leg, or if you see red streaks up the arm or leg, seek immediate medical attention. If you develop any new or worsening symptoms and need after hours care, please go to nearest ER and/or call 911. If you have additional concerns or develop a change in your condition between 8am-10pm, please call [facility] at [phone] to help navigate your care. [email or web address] Not available 04/18/2021 16:40:29 08/01/2021 [id number] rai catheter change* [email or web address] Not available 08/02/2021 12:13:23 03/05/2022 [id number] Patient was advised to keep urinary bag to gravity drainage. She will continue with her medications as previously ordered by her PCP. Follow up with [facility] urology in 3-4 days. Advised to call 911 if any decrease or change in urine output, fever, chills, blood in urine, pain, weakness or fatigue. [email or web address] Not available 03/05/2022 14:10:36 Reason for Referral None Reported. Results Created Date Observation Date Name Description Value Unit Range Abnormal Flag Note LastModifiedBy Organization Detail LastModifiedTime 04/18/20 21 wound care* No observ ation record ed. [email or web address] Not Available 2020 16:01:58 04/20/20 21 XR, foot, 3 or more view No observ ation record ed. [email or web address] [facility]) [address], [place], [address], 04/20/2021 20:06:42 Result Notes None recorded. Procedures Surgical History Date Name Laterality Status Provider Name and Address Organization Details Recorded Time 03/05/20 22 Rai Catheter Insertion - completed CARRIE IBARRA NP [address], [place], [address], [place] [facility] 03/05/2022 13:59:20 08/01/19 22 Rai Catheter Insertion - completed MINOO AMEZCUA NP [address], [place], [address], [place] [facility] 08/02/2021 17:12:41 06/20/20 21 Rai Catheter Insertion - completed TONY PIPER NP [address], [place], [address], [place] [facility] 06/20/2021 15:15:06 vitrectomy completed TONY PIPER NP [address], [place], [address], [place] [facility] 04/18/2021 17:04:11 Imaging Results Imaging Date Name Status LastModified by Organiz ation Details LastModified Time 04/18/2021 wound care* completed [email or web address] Information n ot available 04/18/2021 16:01:58 04/20/2021 XR, foot, 3 or more view completed [email or web address] [facility] ([facility] [employer]) [address], [place], [address], 04/20/2021 20:06:42 Procedure Notes None recorded. Medical Equipment None Reported. Allergies Allergen ID Allergen Name Allergen Category Reaction Reaction Severity Criticality Documentation Date Start Date Code Code System Note Provider Name and Address Organization Details Recorded Time 81180 silver sulfadiaz ine medicatio n Not available Not available Not available 06/27/2018 [id number] RxNorm DEANN SANCHEZ [address], [place], [address], [place] [facility] 8 11:34:17 Medications Name Sig Start Date Stop Date Status Note LastModified by Organization Details LastModified Time furosemide 40 mg tablet TAKE 1 TABLET BY MOUTH TWICE A DAY active Not Available Not Available No t Available doxycycline hyclate 100 mg capsule Take 1 capsule twice a day by oral route for 5 days. 08/01 completed Not Available Not Available Not Available cefuroxime axetil 250 mg tablet 08/01 completed Not Available Not Available Not Available ipratropium 0.5 mg-albutero l 3 mg (2.5 mg base)/3 mL nebulizatio n soln INHALE 1 VIAL EVERY 4 TO 6 HOURS NEEDED active Not Available Not Available No t Available cefepime 1 gram solution for injection 03/05 completed Not Available Not Available Not Available cefpodoxime 200 mg tablet TAKE 1 TABLET BY MOUTH TWICE A DAY WITH FOOD 03/05 completed Not Available Not Available Not Available azithromyci n 250 mg tablet TAKE 1 TABLET BY MOUTH EVERY DAY FOR 4 DAYS 03/05 completed Not Available Not Available Not Available metoprolol tartrate 100 mg tablet TAKE 1 TABLET BY MOUTH TWICE A DAY 04/18 completed Not Available Not Available Not Available fluconazole 150 mg tablet TAKE 1 TABLET FOR ONE DAY, THEN REPEAT IN 3 DAYS active Not Available Not Available No t Available FreeStyle Lancets 28 gauge USE TO TEST 3 TIMES A DAY active Not Available Not Available No t Available prednisone 20 mg tablet TAKE 2 TABLETS BY MOUTH EVERY DAY active Not Available Not Available No t Available metformin 850 mg tablet TAKE 1 TABLET BY MOUTH TWICE A DAY active Not Available Not Available No t Available metronidazo le 500 mg tablet active Not Available Not Available Not Available clopidogrel 75 mg tablet TAKE 1 TABLET BY MOUTH EVERY DAY active Not Available Not Available No t Available ciprofloxac in 500 mg tablet 06/27 completed Not Available Not Available Not Available sulfamethox azole 800 mg-trimetho prim 160 mg tablet 06/27 completed Not Available Not Available Not Available aspirin 81 mg tablet,ellis yed release TAKE 1 TABLET BY MOUTH DAILY active Not Available Not Available No t Available tramadol 50 mg tablet TAKE 1 TABLET BY MOUTH THREE TIMES A DAY NEEDED 7 DAY LIMIT PER INSURANCE 04/18 completed Not Available Not Available Not Available simvastatin 40 mg tablet TAKE 1 TABLET BY MOUTH EVERYDAY AT BEDTIME active Not Available Not Available No t Available cephalexin 500 mg capsule TAKE 1 CAPSULE 4 TIMES A DAY BY ORAL ROUTE FOR 7 DAYS. 03/05 completed Not Available Not Available Not Available nystatin 100,000 unit/gram topical cream APPLY TO AFFECTED AREA TWICE A DAY 04/18 completed Not Available Not Available Not Available metoprolol tartrate 50 mg tablet TAKE 1 TABLET BY MOUTH TWICE A DAY active Not Available Not Available No t Available docusate sodium 100 mg capsule TAKE 1 TO 2 CAPSULES BY MOUTH TWICE A DAY NEEDED 04/18 completed Not Available Not Available Not Available gabapentin 300 mg capsule TAKE 1 CAPSULE BY MOUTH THREE TIMES A DAY active Not Available Not Available No t Available omeprazole 20 mg capsule,del ayed release active Not Available Not Available Not Available lisinopril 5 mg tablet TAKE 1 TABLET BY MOUTH EVERY DAY active Not Available Not Available No t Available mupirocin 2 % topical ointment APPLY A SMALL AMOUNT TO THE AFFECTED AREA BY TOPICAL ROUTE 3 TIMES PER DAY active Not Available Not Available No t Available furosemide 20 mg tablet active Not Available Not Available Not Available ergocalcife rol (vitamin D2) 1,250 mcg (50,000 unit) capsule TAKE 1 CAPSULE BY MOUTH ONCE A WEEK active Not Available Not Available No t Available nystatin 100,000 unit/gram topical powder APPLY TO SKIN FOLDS 1-2 TIMES A DAY NEEDED active Not Available Not Available No t Available insulin lispro (U-100) 100 unit/mL subcutaneou s solution active Not Available Not Available N ot Available cefuroxime axetil 500 mg tablet TAKE 1 TABLET BY MOUTH TWICE A DAY 03/05 completed Not Available Not Available Not Available levofloxaci n 500 mg tablet TAKE 1 TABLET BY MOUTH EVERY DAY 04/18 completed Not Available Not Available Not Available albuterol sulfate HFA 90 mcg/actuati on aerosol inhaler INHALE 2 PUFFS 4 TIMES A DAY active Not Available Not Available No t Available ketoconazol e 2 % topical cream active Not Available Not Available Not Available fluticasone propionate 50 mcg/actuati on nasal spray,suspe nsion SPRAY 1 SPRAY BY INTRANASA L ROUTE TWICE A DAY active Not Available Not Available No t Available doxycycline hyclate 100 mg tablet TAKE 1 TABLET BY MOUTH TWICE A DAY 03/05 completed Not Available Not Available Not Available loratadine 10 mg tablet TAKE 1 TABLET BY MOUTH EVERY DAY active Not Available Not Available No t Available amoxicillin 875 mg-potassiu m clavulanate 125 mg tablet TAKE 1 TABLET BY MOUTH EVERY 12 HOURS 03/05 completed Not Available Not Available Not Available Alcohol Prep Pads APPLY TOPICALLY 4 (FOUR) TIMES A DAY. USE FOR SKIN PREPARATI ON PRIOR TO INSULIN INJECTION active Not Available Not Available No t Available metoprolol tartrate 25 mg tablet active Not Available Not Available No t Available nitrofurant oin monohydrate /macrocryst als 100 mg capsule TAKE 1 CAPSULE BY MOUTH EVERY 12 HOURS active Not Available Not Available No t Available lidocaine (PF) 10 mg/mL (1 %) injection solution 04/18 completed Not Available Not Available Not Available BD Ultra-Fine Short Pen Needle 31 gauge x 5/16 USE WITH LANTUS AND HUMALOG 4 TIMES A DAY active Not Available Not Available No t Available cholecalcif mariela (vitamin D3) 25 mcg (1,000 unit) tablet TAKE 1 TABLET BY MOUTH EVERY DAY active Not Available Not Available No t Available FreeStyle Lite Strips USE DIRECTED 3 TIMES A DAY BEFORE MEALS active Not Available Not Available No t Available Flovent Diskus 50 mcg/actuati on powder for inhalation TAKE 1 PUFF BY MOUTH EVERY DAY RINSE MOUTH AFTER USE active Not Available Not Available No t Available Lantus Solostar U-100 Insulin 100 unit/mL (3 mL) subcutaneou s pen INJECT 60 UNITS UNDER THE SKIN DAILY active Not Available Not Available No t Available Humalog KwikPen (U-100) Insulin 100 unit/mL subcutaneou s ADMINISTE R PRIOR TO MEALS ACCORDING TO SLIDING SCALE, UP TO 40 UNITS TOTAL DAILY DOSE active Not Available Not Available No t Available Flovent Diskus 100 mcg/actuati on powder for inhalation INHALE 1 PUFF BY MOUTH EVERY DAY active Not Available Not Available No t Available BD AutoShield Duo Pen Needle 30 gauge x 3/16 active Not Available Not Available Not Available Eliquis 5 mg tablet TAKE 1 TABLET BY MOUTH TWICE A DAY active Not Available Not Available No t Available Bydureon 2 mg/0.65 mL subcutaneou s pen injector active Not Available Not Available Not Available BD Khalida 2nd Gen Pen Needle 32 gauge x 5/32 INJECT 1 EACH UNDER THE SKIN 4 (FOUR) TIMES A DAY BEFORE MEALS AND NIGHTLY. E11.41 active Not Available Not Available No t Available Vitals Date Recorded Heart rate Body temperature Respiratory rate Oxygen saturation Oxygen saturation in Arterial blood by Pulse oximetry Systolic blood pressure Diastolic blood pressure Provider Name and Address Organization Details Last Updated DateTime 8 66 /min 98.8 [degF] 12 /min 96 % 96 % 110 mm[Hg] 72 mm[Hg] Not Available [facility] 8 11:58:25 Date Recorded Body temperature Respiratory rate Oxygen saturation Oxygen saturation in Arterial blood by Pulse oximetry Heart rate Systolic blood pressure Diastolic blood pressure Provider Name and Address Organization Details Last Updated DateTime 1 97.8 [degF] 16 /min 93 % 93 % 79 /min 136 mm[Hg] 68 mm[Hg] Not Available [facility] 1 15:57:09 Date Recorded Heart rate Body temperature Oxygen saturation Oxygen saturation in Arterial blood by Pulse oximetry Respiratory rate Systolic blood pressure Diastolic blood pressure Provider Name and Address Organization Details Last Updated DateTime 1 78 /min 97.8 [degF] 92 % 92 % 28 /min 106 mm[Hg] 70 mm[Hg] Not Available [facility] 1 14:43:01 Date Recorded Heart rate Respiratory rate Oxygen saturation Oxygen saturation in Arterial blood by Pulse oximetry Body temperature Systolic blood pressure Diastolic blood pressure Provider Name and Address Organization Details Last Updated DateTime 2 80 /min 20 /min 96 % 96 % 98.6 [degF] 130 mm[Hg] 70 mm[Hg] Not Available [facility] 2 20:59:40 Date Recorded Respiratory rate Body temperature Heart rate Oxygen saturation Oxygen saturation in Arterial blood by Pulse oximetry Systolic blood pressure Diastolic blood pressure Provider Name and Address Organization Details Last Updated DateTime 2 20 /min 97 [degF] 68 /min 97 % 97 % 142 mm[Hg] 86 mm[Hg] Not Available [facility] 2 13:43:08 Social History Question Answer Notes LastModified by Organizat ion Details LastModified Time Tobacco Smoking Status Never Smoker DEANN SANCHEZ [address] [place], [address], [place] [facility] 06/27/2018 11:41:47 Do You Have An Advance Directive? Yes Information not available 06/27/2018 What Is Your Code Status? Full Code Information not available 06/27/2018 How Many Days In The Past Year Have You Had A Heavy Drinking Consumption (4+ Female, 5+ Male)? 0 Information not available 06/27/2018 Within The Past 12 Months, Has It Happened That The Food You Bought Just Didn't Last And You Didn't Have Money To Get More. Obese moisés Information not available 06/27/2018 Within The Past 12 Months, Have You Worried That Your Food Would Run Out Before You Got Money To Buy More. Yes Information not available 06/27/2018 Fall Risk: Do You Feel Unsteady When Standing Or Walking? Yes Information not available 06/27/2018 Marital Status Informatio n not available 06/27/2018 What Was The Date Of Your Most Recent Tobacco Screening? 06/27/2018 Information not available 01/31/2019 Sex: Unknown Functional Status None recorded. Mental Status None recorded. Family History Relationship Description Onset Age of this Age Resolved Age Notes LastModified by Organization Details LastModified Time Mother Diabetes mellitus moisés Not available 2017 11:41:29 Medical History Condition Response Diabetes Y Coronary Artery Disease N High Cholesterol Y Cancer N Pulmonary Embolism N Stroke N Hypertension Y Depression N COPD N Asthma Y Kidney Disease Y Gynecological HistoryNo gynecological history recorded. Obstetrics History GPAL:G 0 P 0 0 0 0 Past Encounters Encounter ID Performer Location Encounter Start Date Encounter Closed Date Diagnosis/Indication Diagnosis SNOMED-CT Code Diagnosis ICD10 Code [id number] DEANN SANCHEZ [facility] [address] [place] [address] 06/27/2018 11:15:54 06/27/2018 16:54:17 Blister 629018459 R23.8 [id number] TONY PIPER NP [facility] [address] [place] [address] 04/18/2021 15:47:09 04/27/2021 10:18:44 Cellulitis of left foot 2370397576 0811247 L03.116 Injury of foot 961118513 S99.922A Pre-existi ng type 2 diabetes mellitus 486107058 E11.9 [id number] TONY PIPER NP [facility] [address] [place] [place] [address] 06/20/2021 14:25:21 06/23/2021 12:38:22 Urethral urinary catheter in situ for watermelon inspector use 1589487221 104 Z96.0 Neurogenic urinary bladder 854674764 N31.9 Diabetes mellitus 036474 09 E13.42 Body mass index 40+ - severely obese 087162547 Z68.45 [id number] MINOO AMEZCUA, [facility] [address] [place] [address] 08/01/2021 19:18:31 08/03/2021 10:57:48 Mechanical complication of urethral indwelling catheter 77214509 T83.098A [id number] CARRIE IBARRA NP [facility] [address] [place] [address] 03/05/2022 13:07:11 03/07/2022 09:26:19 Leakage from urinary catheter 714865223 T83.031A Health Concerns Section Related Observation LastModified by Organization Detai ls LastModified Time None Recorded Concern Status LastModified by Organization Details LastModified Time None Recorded Advance Directives Directive Y: Payers Encounter Date Sequence Insurance Name Policy Number Policy Adler Covered Member ID Adler Member ID Guarantor Name 06/27/2018 1 [place] [employer] Aleah Connor [id number] Aleah Connor 06/27/2018 2 [place] Aleah Nikolas [id number] Aleah Connor 04/18/2021 1 [place] Aleah Connor [id number] Aleah Nikolas 04/18/2021 2 [place] Aleah Nikolas [id number] Aleah Connor 06/20/2021 1 [place] [employer] Aleahadri Connor [id number] Aleah Connor 06/20/2021 2 [place] Aleah Nikolas [id number] Aleah Connor 08/01/2021 1 [place] [employer] Aleahadri Connor [id number] Aleah Nikolas 08/01/2021 2 [place] Aleah Nikolas [id number] Aleah Connor 03/05/2022 1 [place] Aleah Connor [id number] Aleah Connor 03/05/2022 2 [place] Aleah Nikolas [id number] Aleah Connor Notes Date Note Type Note Provider Name and Address Organization Details Recorded Time 06/27/2018 text/html Mrs. Connor is a 67 yo female [facility] and this provider. Patient's daughter called for evaluation today because she noted a dark black spot on patient's right 3rd toe. Patient is diabetic and daughter is concerned about necrotic toe. Daughter noted the spot about 3 days ago but is not sure how long it has been there. Patient reports a minor injury to that toe several weeks ago when she was hit with elevator door.Denied any chills, fever, open wound, pain or redness in the area. commorbidities: diabetes, HTN, asthma, CHF, UTI, recent sepsis hospitalization DEANN SANCHEZ [address], [place], [address], [place] [facility] 06/27/2018 15:35:52 04/18/2021 text/html 70 yo female who is known to but new to this provider. PMHx includes T2IDDM, asthma, HTN, HLD, AFIB (on Eliquis) kidney disease, CHF, UTIs, indwelling Rai. Patient states she was hospitalized acute bronchitis and d/c to rehab facility where she reports that an aid ran over her left foot with rolling table two weeks ago. Patient is now home with home health aid who noticed this morning that her left foot had increased redness, heat, draining clear fluid; she called to come out to evaluate. Denies fever, chills, headache, chest pain, palpitations, abdominal pain, nausea, vomiting or diarrhea, denies melena, bright red blood per rectum. TONY PIPER NP [address], [place], [address], [place] [facility] 04/18/2021 17:37:06 06/20/2021 text/html 70 yo female who is known to and to this provide. PMHx of T2IDDM, asthma, HTN, HLD, AFIB (on Eliquis) kidney disease, CHF, UTIs, indwelling Rai, bacteremia, hydronephrosis, AFIB. Patient states hospitalization in early June, for three days for cellulitis, of LLE; D/C on Doxycyline which she is still on, last day tomorrow. She endorses that the catheter and collection tubing got stuck between the bed-railing and bed side table, when she raised the bed it got pulled out. She states no pain felt during catheter being pulled out; this has happened in the past and it was due to the balloon not being filled completely. She endorses being fully vacc., against COVID 19. She denies any fever, chills, PIEDRA, runny nose, congestion, sore throat, cough, chest pain, palpitations, abdominal pain, nausea, vomiting or diarrhea. TONY PIPER NP [address], [place], [address], [place] [facility] 06/20/2021 15:26:28 08/01/2021 text/html Onset one day Location Duration constant Characteristics moderate Aggravates/Alleviate s no known factors MINOO AMEZCUA NP [address], [place], [address], [place] [facility] 08/02/2021 18:13:21 03/05/2022 text/html 71 yo female kno wn to but new to this provider with PMH of morbid obesity, HTN, and HLD who is being seen today for leaking urinary catheter and she is requesting it be changed. She denies any other complaints today.She does admit that she was recently in the ER because her catheter was dislodged and that they replaced the catheter and then she was discharged home.She was then incontinent of stool reports that daughter was concerned about possible urine contamination and UTI and she reports being on a course of Macrobid on 03/03/22. She has a longterm indwelling urinary catheter and is wheelchair bound. She has home care nurses who change her catheter monthly. She reports she uses a #26 Fr catheter with 30ml balloon but that they fill it to 40 ml. She denies any pain, fever, chills, weakness or sweats. She reports feeling well. CARRIE IBARRA NP [address], [place], [address], [place] [facility] 03/05/2022 14:12:16 OBGyn Episode No OBEpisode recorded.
[2024-07-14] MEDS: Insulin Regular, Human 100 UNIT/ML 10 ML VIAL 6 UNIT IVPUSH (18:35)
[2024-07-14 18:36] LABS: MANUAL DIFF FLAG NO
[2024-07-14] MEDS: 0.9 % Sodium Chloride 1,000 ML 999 ML IV (18:36)
[2024-07-14 18:37] LABS: Basophils Percent Auto 0.3 % (0-2); Eosinophils Absolute Auto 0.3 X10*3/uL (0.0-0.4); Eosinophils Percent Auto 3.8 % (0-4); Hematocrit 43.5 % (37.0-47.0); Hemoglobin 13.8 g/dl (12.0-16.0); Imm Gran Abs Auto 0.02 X10*3/uL (0.00-0.03); Imm Gran Pct Auto 0.3 % (0.0-0.4); Lymphocytes Absolute Auto 1.1 X10*3/uL (1.2-4.9); Lymphocytes Percent Auto 15.3 % (20-40); Mean Corpuscular HGB Conc 31.7 g/dl (31.0-35.0); Mean Corpuscular Volume 81.9 fL (80.0-98.0); Mean Platelet Volume 11.1 fL (9.4-12.3); Monocytes Absolute Auto 0.7 X10*3/uL (0.1-1.2); Monocytes Percent Auto 8.9 % (2-11); Neutrophils Absolute Auto 5.3 x10*3/uL (2.0-8.3); Neutrophils Percent Auto 71.4 % (45-73); Platelet Count 174 X10*3/uL (160-400); Red Blood Count 5.31 X10*6/uL (4.20-5.50); Red Cell Distribution Width 17.4 % (11.0-16.0); White Blood Count 7.4 X10*3/uL (4.8-10.8)
[2024-07-14 18:39] LABS: Venous Blood Gas Refer to POC result
[2024-07-14 18:40] LABS: VBG Base Excess 16.9 mmol/L; VBG HCO3 43 mmol/L (22-26); VBG pCO2 57 mmHg; VBG pH 7.48 (7.32-7.43); VBG pO2 33 mmHg
[2024-07-14 18:56] LABS: Anion Gap 15 (12-20); Beta-Hydroxybutyrate 0.13 mmol/L (0.02-0.27); Blood Urea Nitrogen 17 mg/dL (9-16); Carbon Dioxide 34 mmol/L (22-29); Chloride 92 mmol/L (96-108); Creatinine Clr Calc Pharmacy 80.5; Estimated Glomerular Filt Rate > 60; Glucose Random 458 mg/dL (60-115); Potassium 4.4 mmol/L (3.3-5.1); Sodium 137 mmol/L (135-145)
--- NOTE | 2024-07-14 19:30 | PC.NURSE ---
MD aware of POC, per md to recheck in 1 hour.
[2024-07-14 19:36] LABS: Glucose, Whole Blood 328 mg/dL (60-115)
[2024-07-14 20:00] VITALS: BP 121/76; PULSE 79; RESP 20; O2SAT 99
[2024-07-14 20:46] LABS: Glucose, Whole Blood 305 mg/dL (60-115)
--- NOTE | 2024-07-14 20:55 | PC.NURSE ---
MD aware of poc, plan for discharge at this time. home organizer states pt has house keys when ems able to transport home, will have home nurse visiting later tonight.
[2024-07-14 22:38] VITALS: BP 121/76; PULSE 79; RESP 20; TEMP 37.1; O2SAT 99
== END 2024-07-14 22:39 | disposition home or self-care (01) ==
PROVIDERS: Emergency Provider Emergency Medicine Emergency Medical Services; PCP Family Medicine
DX: E11.65 Type 2 diabetes mellitus with hyperglycemia (principal); Z79.4 Long term (current) use of insulin; Z79.899 Other long term (current) drug therapy
CPT/HCPCS: 36415; 80048; 82010; 82803; 82947; 85025; 96361; 96374; 99284